=== PATIENT | female | born 1970 | race Caucasian/White ===

== ENCOUNTER 2017-10-19 14:57 | Outpatient (POV) | payer BC, SELFPAY | END 2017-10-19 17:20 | PROVIDERS: Visit Provider Podiatrist | DX: M76.822 Posterior tibial tendinitis, left leg (principal); M76.821 Posterior tibial tendinitis, right leg; M21.42 Flat foot [pes planus] (acquired), left foot; M21.41 Flat foot [pes planus] (acquired), right foot; L84 Corns and callosities; E11.621 Type 2 diabetes mellitus with foot ulcer; L97.411 Non-pressure chronic ulcer of right heel and midfoot limited to breakdown of skin | CPT/HCPCS: 99204; 11042; 11056; G0127 ==

== ENCOUNTER 2017-11-02 15:20 | Outpatient (POV) | payer BC, SELFPAY | END 2017-11-02 15:59 | disposition home or self-care (01) | PROVIDERS: Visit Provider Podiatrist | DX: E11.621 Type 2 diabetes mellitus with foot ulcer (principal); L97.411 Non-pressure chronic ulcer of right heel and midfoot limited to breakdown of skin; M76.822 Posterior tibial tendinitis, left leg; M76.821 Posterior tibial tendinitis, right leg; M20.42 Other hammer toe(s) (acquired), left foot; M20.41 Other hammer toe(s) (acquired), right foot | CPT/HCPCS: 99213; 11042 ==

== ENCOUNTER → 2017-11-03 | Outpatient (CLI) | payer BC, SELFPAY | PROVIDERS: Family Provider Internal Medicine; Visit Provider Internal Medicine | DX: G47.39 Other sleep apnea (principal); G47.30 Sleep apnea, unspecified; G47.10 Hypersomnia, unspecified; R06.83 Snoring; I10 Essential (primary) hypertension | CPT/HCPCS: 95806 ==

== ENCOUNTER 2017-11-12 17:00 | Outpatient (RCR) | payer BC, SELFPAY | END 2017-11-12 23:59 | LOC: PT 17:00 | PROVIDERS: PCP Internal Medicine; Visit Provider Internal Medicine | DX: L02.611 Cutaneous abscess of right foot (principal) | CPT/HCPCS: 97163; 97597; 97760 ==

== ENCOUNTER 2017-11-18 17:00 | Outpatient (RCR) | payer BC, SELFPAY | END 2017-11-18 23:59 | LOC: PT 17:00 | PROVIDERS: Family Provider Internal Medicine; PCP Internal Medicine; Visit Provider Internal Medicine | DX: L02.611 Cutaneous abscess of right foot (principal) | CPT/HCPCS: 97597 ==

== ENCOUNTER → 2017-11-27 10:37 | Outpatient (POV) | payer BC, SELFPAY | PROVIDERS: Visit Provider Podiatrist | DX: Z00.00 Encounter for general adult medical examination without abnormal findings (principal) ==

== ENCOUNTER → 2017-11-30 15:19 | Outpatient (CLI) | payer BC, SELFPAY ==
--- NOTE | 2017-11-30 15:30 | XR_ITS ---
XR chest 2V Ordering Physician: Diego Lynch Patient Age: 47 years: Female HISTORY: ITS.REASON: PNEUMONIAcough. Congestion. TECHNIQUE: PA and lateral chest. COMPARISON : November 21, 2016 2 view chest. But also portable chest from -. FINDINGS Mild prominence of the right suprahilar region more so than on November 2016 CXR. Somewhat similar appearance however on October 2016. I would question some minimal ill-defined infiltrate at the right suprahilar region extending anteriorly & possibly contributing to this generous right nata. Follow-up CXR 4 weeks suggested to exclude any underlying pathology.Low threshold for CT is symptoms persist or patient smoker More peripherally I see no focal pneumonia or consolidation. Question very subtle interstitial coarsening on this study but this may be merely be due to different new or technique with digital equipment. No CHF. No pleural effusion. Heart upper normal in size. Memory calcified aorta. Stimulator device at the lower T-spine posteriorly. IMPRESSION: --------- 1. Slight Additional fullness and density at the right suprahilar region on today's study.\ May reflect patchy infiltrate right suprahilar region, accentuating right superior right hilum, However would suggest follow-up PA &Lateral CXR 4 weeks to further evaluate. Low threshold for CT if symptoms persist progress or significant smoking history. 2. Very Subtle additional interstitial coarsening and prominence today, suspect merely reflect digital technique, but would benefit from follow-up CXR as well No focal pneumonia
== END ==
PROVIDERS: PCP Internal Medicine; Visit Provider Internal Medicine
DX: J18.9 Pneumonia, unspecified organism (principal)
CPT/HCPCS: 71046

== ENCOUNTER → 2017-12-28 17:14 | Outpatient (CLI) | payer BC, SELFPAY ==
--- NOTE | 2017-12-28 | XR_ITS ---
XR ankle LT min 3V HISTORY: Charcot foot, ankle pain ORDERING PHYSICIAN: Dione Castro DPM PATIENT AGE: 47 years COMPARISON: None FINDINGS: No fracture or dislocation. No lytic or blastic change. There is normal mineralization.. The joint spaces are well-preserved. No significant degenerative/arthritic changes. No erosive changes evident. IMPRESSION: Negative left ankle, no acute finding
--- NOTE | 2017-12-28 | XR_ITS ---
XR foot LT min 3V * HISTORY: Charcot foot, severe posterior tibial tendon dysfunction ORDERING PHYSICIAN: Dione Castro DPM PATIENT AGE: 47 years COMPARISON: None FINDINGS: There is severe pes planus with reversal of Mearys angle. There is mild lateral angulation of the distal phalanx of the great toe and flexion deformity involves the DIP of the second through fifth toes. No fracture or dislocation. No lytic or blastic change. IMPRESSION: 1. Severe pes planus 2. Hammertoe deformity
--- NOTE | 2017-12-28 | XR_ITS ---
XR foot RT min 3V HISTORY: Charcot foot, severe posterior tibial tendon dysfunction ORDERING PHYSICIAN: Dione Castro DPM PATIENT AGE: 47 years COMPARISON: None FINDINGS: There is severe pes planus with reversal of Mearys angle. Osteoarthritic changes are present involving the tarsal bones with hypertrophic changes at the talonavicular joint and navicular cuneiform joint. Mild osteoarthritic changes are present first metatarsophalangeal joint. There is mild lateral angulation of the distal phalanx of the great toe and flexion deformity involves the DIP of the second through fifth toes. No fracture or dislocation. No lytic or blastic change. IMPRESSION: 1. Severe pes planus 2. Osteoarthritis of the foot. 3. Hammertoe deformity
--- NOTE | 2017-12-28 | XR_ITS ---
XR ankle RT min 3V HISTORY: Pain, Charcot foot ITS.REASON: CHARCOT FOOT, SEVERE PTTD ORDERING PHYSICIAN: Dione Castro DPM PATIENT AGE: 47 years COMPARISON: None FINDINGS: No fracture or dislocation. No lytic or blastic change. There is normal mineralization.. The joint spaces are well-preserved. No significant degenerative/arthritic changes. No erosive changes evident. IMPRESSION: Negative ankle, no acute finding
== END ==
PROVIDERS: Visit Provider Podiatrist
DX: E11.610 Type 2 diabetes mellitus with diabetic neuropathic arthropathy (principal); I73.9 Peripheral vascular disease, unspecified
CPT/HCPCS: 73610; 73630

== ENCOUNTER → 2018-01-04 09:55 | Outpatient (CLI) | payer BC, SELFPAY ==
--- NOTE | 2018-01-04 | XR_ITS ---
XR foot LT min 3V Ordering Physician: Dione Castro DPM Patient Age: 47 years: Female HISTORY: ITS.REASON: charcot on lt with fx bones TECHNIQUE: 3 views left foot weightbearing COMPARISON :To 1218 left foot FINDINGS The posterior plaster splint at the foot and ankle has been placed since prior study 12/28/2017 . The severe pes planus seen on prior study appears adequately improved on today's lateral weightbearing view with splint in place. The splint material obscures osseous detail at the metatarsals appear intact. Tarsals satisfactory. The downward tilt of talus seen on the 12/28/2017 study is less pronounced. It seems articulates in a more satisfactory fashion with the proximal navicular on today's lateral view versus at recent to December 28, 2017 lateral foot image. Moderate plantar calcaneal spur again noted. Again note the flexion/hammertoe deformities at the toes. IMPRESSION: Plaster splint in place on the posterior ankle and plantar foot The previous noted pes planus appears improved on today's weightbearing image. Less pronounced on today's study
--- NOTE | 2018-01-04 | XR_ITS ---
XR foot RT min 3V Ordering Physician: Dione Castro DPM Patient Age: 47 years: Female HISTORY: ITS.REASON: CHARCOT on rt footright foot pain TECHNIQUE: 3 view right foot weightbearing COMPARISON :12/28/2017 right foot FINDINGS When compared to the recent right foot study of 12/28/2017 the severe pes planus is less pronounced. The severe pes planus with rather rocker bottom foot the recent study has somehow improvement on today's lateral weightbearing film. There is mild osteoarthritic changes at the first and the AP joint. Slight lateral angulation of the distal phalanx of the great toe. Flexion deformity at the toes most evident the DIP joints to the second, third, fourth and fifth.Toes. This feature appears similar. Arthritic changes are seen at the tarsal metatarsal joints and between the tarsals. Plantar calcaneal spur 10 mm length noted IMPRESSION: There is less pronounced pes planus on today's study versus recent 10/27/2018 of staging right foot Other observations unchanged
== END ==
PROVIDERS: PCP Internal Medicine; Visit Provider Podiatrist
DX: E11.610 Type 2 diabetes mellitus with diabetic neuropathic arthropathy (principal)
CPT/HCPCS: 73630

== ENCOUNTER → 2018-01-11 09:29 | Outpatient (CLI) | payer BC, SELFPAY ==
--- NOTE | 2018-01-11 | XR_ITS ---
XR ankle LT min 3V HISTORY: Pain ITS.REASON: CHARCOT ORDERING PHYSICIAN: Dione Castro DPM PATIENT AGE: 47 years COMPARISON: 12/28/2017 FINDINGS: No fracture or dislocation. No lytic or blastic change. There is normal mineralization.. The joint spaces are well-preserved. No significant degenerative/arthritic changes. No erosive changes evident. IMPRESSION: Negative ankle, no acute finding , no significant change
--- NOTE | 2018-01-11 | XR_ITS ---
XR foot LT min 3V HISTORY: Charcot foot ITS.REASON: CHARCOT ORDERING PHYSICIAN: Dione Castro DPM PATIENT AGE: 47 years COMPARISON: 01/04/2018 FINDINGS: The splint has been removed. Hammertoe deformity involves the second through fifth toes. There is lateral angulation of the distal phalanx of the first toe and there is pes planus. Small calcaneal spur is noted. No obvious bony erosive process evident. No fracture or dislocation. IMPRESSION: Flexion deformity of the toes with lateral angulation of the distal phalanx of the first digit and pes planus
== END ==
PROVIDERS: Visit Provider Podiatrist
DX: M14.672 Charcot's joint, left ankle and foot (principal)
CPT/HCPCS: 73610; 73630

== ENCOUNTER → 2018-01-25 07:53 | Outpatient (CLI) | payer BC, SELFPAY ==
--- NOTE | 2018-01-25 07:56 | CT_ITS ---
CT foot LT wo con Ordering Physician: Dione Castro DPM Patient Age: 47 years: Female HISTORY: ITS.REASON: Evaluate for Charcot changes; surgical planning TECHNIQUE: Helical CT scanning of the foot with sagittal coronal and oblique axial images performed on CT workstation. Also 3-D volume rendering image set performed. The fragmentation and irregularities most evident at the lateral aspect of the distal calcaneus COMPARISON :Previous plain films of left foot 01/11/2018 FINDINGS .. Midfoot fractures with prominent associated prominent edema, swelling surrounding fluid most evident at mid foot.: . Generous size fracture along with multiple small areas of fragmentation are seen throughout the medial aspect of the distal most calcaneus. This can be seen on the 3-D reconstruction images as well.Q. There is a fairly large fragment overlying this area measuring over 2.1 cm length times nearly 1 cm transverse. Prominent soft tissue swelling about this region. Diffuse numerous small tiny fragments along the distal margin of calcaneus were articulates with the inferior margin distal talus. Neuropathic type fragmentation pattern There is also fracture with what appears be generous size fracture fragment off the lateral margin of cuboid. This appears acute with very sharp margin. Numerous Other small areas of fragmented bone seen are seen more superiorly at the margin of cuboid and its junction with the distal margin of calcaneus. Extensive fluid and edema are seen along the inferior aspect of calcaneus in particular evident injury to the lateral calcaneus and cuboid but also seen at the lateral distal calcaneus. Also overlies the dorsal medial aspect of the exiting medial talar articulation. Some of this fluid appears relatively higher. I can follow the posterior tibial tendon and it appears grossly intact. Peroneus longus tendon I can be followed distally. The peroneal brevis sinuses less certain Appear to be old corner fracture off the plantar corner of the first metatarsal base, best seen on sagittal image 11, also evident on axial views. This fragment appears corticated and old.. Other metatarsals appear intact and the metatarsal, tarsal articulations are fairly well maintained with less changes here. MTP joints appear intact.Prominent hammertoe, flexion toe deformity at toes.. note: This study was dictated with a voice-recognition system. There may be typographical error is related to such. If they are significant please notify us for corrections =IMPRESSION. = 1. Multiple midfoot fractures.. Findings compatible with neuropathic joint/Charcot s foot Prominent associated fluid and likely some hemorrhage surrounding these fracture regions, contributing to these generous fluid collections about the midfoot fractures and the prominent edema throughout the foot extending up up the leg. 2 Most notable findings at mid foot:: Generous fracture fragment with prominent fragmentation off the superior lateral aspect distal calcaneus. Extensive fragmentation here as well as continues along the entire distal superior margin of calcaneus included along its articulation with distal inferior talus. Most recent fracture appears to be at the medial margin of the cuboid. Sharp, more fresh appearing margins at this recent appearing fracture. Generous size fracture fragment with numerous smaller bone fragments about this entire region. Old fracture corner fragment likely at the plantar base of first metatarsal Other observations in text
== END ==
PROVIDERS: Family Provider Internal Medicine; PCP Internal Medicine; Visit Provider Podiatrist
DX: E11.610 Type 2 diabetes mellitus with diabetic neuropathic arthropathy (principal)
CPT/HCPCS: 73700

== ENCOUNTER → 2018-02-09 16:04 | Outpatient (REF) | payer BC, SELFPAY | LOC: LAB 16:04 | PROVIDERS: Visit Provider Podiatrist | DX: B35.1 Tinea unguium (principal) | CPT/HCPCS: 87102; 87206; 87220 ==

== ENCOUNTER → 2018-02-26 12:59 | Outpatient (POV) | payer BC, SELFPAY | PROVIDERS: Family Provider Internal Medicine; PCP Internal Medicine; Visit Provider Podiatrist | DX: Z00.00 Encounter for general adult medical examination without abnormal findings (principal) ==

== ENCOUNTER → 2018-03-01 14:30 | Outpatient (CLI) | payer BC, SELFPAY ==
--- NOTE | 2018-03-01 14:30 | XR_ITS ---
XR foot wt bearing LT 3V HISTORY: Charcot foot, pain ORDERING PHYSICIAN: Dione Castro DPM PATIENT AGE: 47 years COMPARISON: 01/11/2018 radiograph and 01/25/2018 CT scan FINDINGS: Recent CT scan demonstrated multiple areas of fragmentation involving the mid foot. Most of these are below limits of resolution on the plain film. There is pes planus. There is mild lateral angulation of the distal phalanx of the great toe and there is flexion deformity of the second, third, and fourth toes. There are mild osteoarthritic changes of the midfoot there is a small calcaneal spur. Overall no significant change from the radiograph 01/11/2018. IMPRESSION: Pes planus with overall no significant change from 01/11/2018 as described above. Multiple areas of fragmentation seen on the CT scan are below limits of resolution on plain film
== END ==
PROVIDERS: Visit Provider Podiatrist
DX: E11.610 Type 2 diabetes mellitus with diabetic neuropathic arthropathy (principal); M79.672 Pain in left foot; I73.9 Peripheral vascular disease, unspecified; B35.1 Tinea unguium; E66.01 Morbid (severe) obesity due to excess calories
CPT/HCPCS: 73630

== ENCOUNTER → 2018-04-09 14:07 | Outpatient (CLI) | payer BC, SELFPAY ==
--- NOTE | 2018-04-09 14:09 | XR_ITS ---
XR foot wt bearing RT 3V COMPARISON: Right foot 01/04/2018 HISTORY: Right foot pain TECHNIQUE: AP lateral and oblique weightbearing views FINDINGS: The tarsal bones metatarsals and phalanges all appear intact. Again noted is moderate pes planus. There are calcaneal spur both at the insertion of Achilles tendon and plantar tendon as noted previously. Again noted is mild lateral angulation of the distal phalanx of the great toe. The soft tissues are grossly normal. IMPRESSION: Pes planus and calcaneal spurs is noted
--- NOTE | 2018-04-09 14:09 | XR_ITS ---
XR ankle wt bearing RT min 3V HISTORY: ITS.REASON: Pain ORDERING PHYSICIAN: Dione Castro DPM PATIENT AGE: 47 years Comparison: None FINDINGS: No fracture or dislocation. No lytic or blastic change. There is normal mineralization.. The joint spaces are well-preserved. No significant degenerative/arthritic changes. No erosive changes evident. IMPRESSION: Negative ankle, no acute finding
--- NOTE | 2018-04-09 14:09 | XR_ITS ---
XR ankle wt bearing LT min 3V COMPARISON: Left ankle 01/11/2018 HISTORY: Left ankle pain TECHNIQUE: AP lateral and oblique weightbearing views FINDINGS: There is mild diffuse prominence of the soft tissues of the lower leg and ankle probably a reflection of the patient's size the medial and lateral malleolus appear intact and the ankle mortise is normal. IMPRESSION: Negative left ankle
--- NOTE | 2018-04-09 14:09 | XR_ITS ---
XR foot wt bearing LT 3V HISTORY: ITS.REASON: Pain ORDERING PHYSICIAN: Dione Castro DPM PATIENT AGE: 47 years COMPARISON: 03/01/2018 FINDINGS: There remains severe pes planus with osteoarthritic change of the midfoot. There is some increased lucency along the anterior distal aspect of the talus. The pes planus is worse on today's exam. There is some bony fragmentation at the plantar surface of the calcaneal cuboid junction. Hammertoe deformity involves the first toe with lateral angulation of the distal phalanx of the first toe. IMPRESSION: Increasing pes planus with lucency of the anterior distal aspect of the talus. This is of questionable clinical significance. Repeat CT scan may be of further value. Osteomyelitis is a consideration. Fragmentation also noted at the calcaneal cuboid junction as seen on the CT scan of 01/25/2018.
--- NOTE | 2018-04-09 14:26 | XR_ITS ---
XR chest 2V Ordering Physician: Dione Castro DPM Patient Age: 47 years: Female HISTORY: ITS.REASON: PREOP Nonsmoker TECHNIQUE: 2 view chest COMPARISON :2 view chest 11/21/2016. FINDINGS Stable chest. Nothing definitely acute. Today's technique slightly accentuates markings bilaterally but there is been no significant interval change overall . Small stable calcified granulomata periphery left midlung 6 mm size. Small calcified hilar node bilateral... These reflect old granulomatous disease heart nata and mediastinal structures unremarkable. The spinal similar device is seen at the lower T-spine. IMPRESSION: Stable chest. Nothing definitely acute
== END ==
PROVIDERS: PCP Internal Medicine; Visit Provider Podiatrist
DX: Z01.810 Encounter for preprocedural cardiovascular examination (principal); E11.610 Type 2 diabetes mellitus with diabetic neuropathic arthropathy; I25.10 Atherosclerotic heart disease of native coronary artery without angina pectoris; I10 Essential (primary) hypertension
CPT/HCPCS: 71046; 73610; 73630

== ENCOUNTER 2018-04-14 05:59 | Observation (INO) ==
--- NOTE | 2018-04-14 06:55 | Progress Note ---
[facility] Anesthesia Checklist - Structural Data Admitted From: Home Planned Operative Procedure/s: achilles lengthening Consent for Planned Operative Procedure(s) Verified: Yes Verified Documents: Surgical Consent - Airway Assessment C-Spine Mobility Assessed: Yes TMJ Mobility Assessed: Yes Dentition: Good Dentition - Neurological Assessment Level of Consciousness: Awake, Alert, Appropriate - Anesthesia Plan Anesthesia Risk discussed: Yes Anesthesia Plan: Verified ASA Class: III Anesthesia Type: General [facility] Anesthesia HX I have reviewed the patient's past medical history: Yes 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: Reports:: Diabetes Mellitus Type 2 (neuropathy), Hypertension, Myocardial Infarction Denies:: Asthma, Cancer, Chronic Obstructive Pulmonary Disease (COPD), Hyperlipidemia, Internal Pacemaker, MRSA, Seizures Other 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: Reports: Arthritis, Fibromyalgia. Denies: Blood Transfusion Reaction Laterality Cases: Bilateral: Arthroscopy Knee, Arthroscopy Shoulder Other Surgeries: Yes: Hysterectomy-Total (2002), Other. No: Pacemaker Amputation: No Fractures: No *Family Hx:: Cancer, Hypertension
--- NOTE | 2018-04-14 15:51 | Progress Note ---
[facility] Anesthesia Record Part I Intake, IV Amount: 3,300 Estimated blood loss (mL): 30 Urine output (mL): 750 Blood Products used (#): none Blood Pressure: 145/87 SaO2: 94 Pulse Rate: 103 Respiratory Rate: 14 Temperature: 97.8 F Patient is:: Awake, Stable Stable to PACU at:: 15:38
--- NOTE | 2018-04-14 15:51 | Progress Note ---
[facility] Anesthesia Record Part II Discharge Time: 16:08 Destination: Medical Surgical Department PACU nurse assessment reviewed?: Yes Patient Condition:: Good Anesthesia Complications:: None
--- NOTE | 2018-04-14 16:53 | History & Physical Report ---
*Admission Date: 04/14/18 *Chief complaint: R Diabetic Charcot Neuroarthropathy *History of present illness: Ms. Colon is a 47 y/o DM female who presents for right foot Charcot reconstruction. She was granted medical and cardiac clearance by Dr. Lynch and Dr. Manzano. She is to be admitted for 23 observation then discharged to [facility] History 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: Reports:: Diabetes Mellitus Type 2 (neuropathy), Hypertension, Myocardial Infarction Denies:: Asthma, Cancer, Chronic Obstructive Pulmonary Disease (COPD), Hyperlipidemia, Internal Pacemaker, MRSA, Seizures Other 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: Reports: Arthritis, Fibromyalgia. Denies: Blood Transfusion Reaction Laterality Cases: Bilateral: Arthroscopy Knee, Arthroscopy Shoulder Other Surgeries: Yes: Hysterectomy-Total (2002), Other. No: Pacemaker Amputation: No Fractures: No - *Social History Educational Level: Attended College Smoking Status: Former smoker # Packs/Day (cigarettes): 0 #Yrs smoked (if former smoker): 25 Alcohol Intake: never Alcohol Intake Frequency:: other Occupational Status: unemployed Housing: house Household Members: family - Psychiatric History Expresses thoughts of harming self/others: None Suicide Plan Description: No Plan *Family Hx:: Cancer, Hypertension Review of Systems - Review of Systems Review of systems:: pertinent systems reviewed and negative unless documented below - Constitutional Denies anorexia, Denies excessive sweating - Eyes Denies blind spots, Denies blurry vision - ENT Denies abnormal hearing - *Cardiovascular Denies chest pain, Denies shortness of breath - *Respiratory Denies cough, Denies shortness of breath - *Gastrointestinal Denies abdominal pain - *Genitourinary Denies abnormal periods - *Musculoskeletal Reports joint pain, Reports back pain, Reports joint swelling, Reports numbness , Reports tingling - *Neurologic Reports tingling/numbness/burning sensations, Reports sensory deficit - Psychiatric Reports anxiety Meds Home Medications Medication Instructions Recorded Confirmed Type blood sugar diagnostic strips See Dose Instructions .ROUTE 12/28/17 04/14/18 History .MEDSUPPLY 30 Days #100 each carvedilol 6.25 mg tablet 6.25 mg PO DAILY 30 Days #60 12/28/17 04/14/18 History duloxetine 60 mg capsule,delayed 60 mg PO DAILY 30 Days #60 12/28/17 04/14/18 History release glipizide 5 mg tablet 5 mg PO DAILY 30 Days #120 12/28/17 04/14/18 History hydrocodone 10 mg-acetaminophen 10 mg PO DAILY 30 Days #120 12/28/17 04/14/18 History 325 mg tablet insulin glargine (U-100) 100 70 unit SUB-Q DAILY 22 Days #15 12/28/17 04/14/18 History unit/mL (3 mL) subcutaneous pen isosorbide mononitrate ER 60 mg 60 mg PO DAILY 30 Days #30 12/28/17 04/14/18 History tablet,extended release 24 hr liraglutide 0.6 mg/0.1 mL (18 mg/3 1 applicatio SUB-Q DAILY 30 Days #9 12/28/17 04/14/18 History mL) subcutaneous pen injector pen needle, diabetic 32 gauge x See Dose Instructions .ROUTE 12/28/17 04/14/18 History 1/4" .MEDSUPPLY 25 Days #100 each pregabalin 225 mg capsule 225 mg PO DAILY 30 Days #60 12/28/17 04/14/18 History ramipril 10 mg capsule 10 mg PO DAILY 30 Days #30 12/28/17 04/14/18 History trazodone 100 mg tablet 100 g PO DAILY 30 Days #30 12/28/17 04/14/18 History atorvastatin 40 mg tablet 40 mg PO DAILY 30 Days #30 03/01/18 04/14/18 History lorazepam 1 mg tablet 1 mg PO DAILY 10 Days #30 03/01/18 04/14/18 History tramadol 50 mg tablet 50 mg PO DAILY 30 Days #120 03/01/18 04/14/18 History RX: cephALEXin [Cephalexin 500mg 500 mg PO Q12H 04/14/18 04/14/18 History Tab] Allergies Allergy/AdvReac Type Severity Reaction Status Date / Time codeine [CODEINE] Allergy Mild STOMACH Verified 04/14/18 06:20 CRAMPS morphine [MORPHINE] Allergy Mild STOMACH Verified 04/14/18 06:20 CRAMPS oxycodone [From Percocet] Allergy Mild STOMACH Verified 04/14/18 06:20 CRAMPS amoxicillin [AMOXICILLIN] Allergy Unknown Verified 04/14/18 06:20 Exam Vital signs and Labs for Last 24 Hours: Temp Pulse Resp BP Pulse Ox 97.8 F 103 H 14 145/87 98 04/14/18 15:51 05/30/18 15:51 04/14/18 15:51 04/14/18 15:51 04/14/18 06:31 Laboratory Results - last 24 hr 04/14/18 06:25: POC Glucose 165 H 04/14/18 07:45: Urine Color Yellow, Urine Appearance Clear, Urine pH 5.5, Ur Specific [place] 1.015, Urine Protein Negative, Urine Glucose (UA) Negative, Urine Ketones Negative, Urine Blood Negative, Urine Nitrate Negative, Urine Bilirubin Negative, Urine Urobilinogen 0.2, Ur Leukocyte Esterase Negative, Urine RBC None, Urine WBC None, Ur Squamous Epith Cells Occasional, Urine Bacteria Trace I & O for Last 24 hours: Intake & Output 04/12/18 04/13/18 04/14/18 04/15/18 11:59 11:59 11:59 11:59 Intake Total 3300 / 3300 Balance 3300 / 3300 Weight 298 lb Microbiology Reports for the Last 24 Hours: Microbiology 04/14/18 Unknown Foot,Right Gram Stain - Final - *Routine HEENT Exam Head: Present: normocephalic Eye: Present: PERRL ENT: Present: mucous membranes moist - *Routine Neck Exam Present: supple. Absent: JVD - *Routine Respiratory Exam Present: CTA bilaterally. Absent: respiratory distress - *Routine Cardiovascular Exam Present: RRR. Absent: JVD - *Routine Abdominal Exam Present: soft - *Routine Rectal Exam Patient deferred: visual exam - *Routine Exam Patient deferred: external exam - *Routine Extremities Exam Present: edema, pulses intact, normal capillary refill. Absent: amputation - *Routine Skin Exam Present: intact, erythema (groin, thighs, arms). Absent: wounds - *Routine Neurological Exam Present: alert. Absent: altered mental status - Detailed Lower Extremity Exam Comments: Right lower extremity external fixator intact. Dressing clean dry and intact over ex fix. CFT wnl. Decreased sensation secondary to regional nerve block. No calf or thigh pain noted b/l. Results - Labs Labs: Abnormal lab results 04/14/18 Range/Units 06:25 POC Glucose 165 H (70-110) All other labs normal. - Diagnostic results Ankle/Foot x-ray: image reviewed Assessment and Plan (1) Charcot's joint of right foot Current visit: Yes Status: Acute Category: Medical Code(s): M14.671 - Charcot's joint, right ankle and foot (2) Type 2 diabetes mellitus with Charcot's joint of right foot Current visit: Yes Status: Acute Category: Medical Code(s): E11.610 - Type 2 diabetes mellitus with diabetic neuropathic arthropathy (3) Obesity, Class III, BMI 40-49.9 (morbid obesity) Current visit: Yes Status: Acute Category: Medical Code(s): E66.01 - Morbid (severe) obesity due to excess calories (4) Vitamin D deficiency Current visit: Yes Status: Acute Category: Medical Code(s): E55.9 - Vitamin D deficiency, unspecified - Assessment and plan all Dx Assessment and Plan for all problems:: Patient will be admitted for 23 hour observation for pain control and medical mgmt Discussed with Dr. Lynch, will consult Dr. Odonnell Patient is to maintain dressing clean dry and intact. Ice behind the right knee and elevate on two pillows. Non weight bearing to the right lower extremity with DME assistance (walker, wheelchair). Rx for Gray 10/325 1-2 tabs (per Dr. Zana Sims-pain mgmt). Obtain post op films, right calc, ankle and foot, 3 views. Consult: Dr. Odonnell for medical mgmt of insulin, IV fluids and blood pressure. PT in the am for gait training and transitions. Plan to d/c to [facility] tomorrow after PT session.
--- NOTE | 2018-04-14 17:08 | Operative Note ---
Date of procedure: 04/14/18 Pre-op Diagnosis:: 1. Right Diabetic Charcot Neuroarthropathy 2. Right Gastroc-soleus equinus 3. Right foot synovitis 4. Right foot osteoarthritis Post-op Diagnosis:: 1. Right Diabetic Charcot Neuroarthropathy 2. Right Gastroc-soleus equinus 3. Right foot synovitis 4. Right foot osteoarthritis Procedure performed:: 1. Right tendon achilles lengthening 2. Right foot synovectomy 3. Right Charcot reconstruction 4. Right triple arthodesis 5. Right medial column arthrodesis 6. Right application of external fixation device Surgeon:: Dione Castro DPM AIR SAW OPERATOR:: Other (Larry Walker) Anesthesia: GETA, regional Estimated blood loss (mL): 50 Clinical Note:: B/L Charcot Neuroarthropathy: I had a long discussion with the patient about the etiology and treatment of Charcot foot. I explained how her diabetes and peripheral neuropathy have contributed to this. We also had a long discussion about her hemoglobin A1c and sugar control. Her previous A1c was 8.0. Patient does not currently smoke. The patient and I had a long discussion about her treatment course. We discussed the conservative versus surgical treatment options. She has been NWB for both the right and left LE. She has the [place] boot for LLE. The patient admits that she cannot be compliant with a NWB treatment plan and that she would put weight on it. We did discuss surgical intervention with the application of an external fixator. My recommendation would be strict nonweightbearing x 2-4 weeks post op and possible PWB with ex fix once sutures removed. She has agreed to be nonweightbearing for several weeks and with the external fixator. She understands that the nonweightbearing period would be shorter with the ex fix because she can weight-bear in the frame eventually being radiographic findings. I also explained that during the nonweightbearing. She needs to continue the [place] boot on the left because there will be an increased risk of Charcot breakdown because there will be an increased stress load on the left lower extremity. After a long discussion with the patient in regards to the conservative versus surgical treatment for the Charcot deformity, the patient has elected to proceed with surgery because they have have admitted limited compliance with conservative treatment and continue to have pain and worsening symptoms affecting daily activities. The patient has been instructed on the planned procedure, all risk versus benefits of the procedure discussed. These include but are not limited to: bleeding, infection, nerve and blood vessel damage, need for further surgery, delay in healing of soft tissue or bone, failure of bones to heal, non-union, mal-union, failure of the implant, broken pins, over lengthening of the tendon, prolonged pain and recovery, prolonged swelling, CPRS/RSD, DVT, anesthetic complications, loss of limb and even . No guarantees were given. All questions fully answered. The patient verbalized understanding and agreed to proceed with surgery. Written consent was obtained. Cardiac clearance in chart per Dr. Manzano from 02/21/18. Necessary labs and pre- op testing ordered: CBC, CMP, CXR, vitamin D, Ha1c, ESR, CRP. Patient was granted medical clearance per Dr. Lynch. Plan to keep patient for 23 hours observation for pain control and monitoring. Discussed with Dr. Lynch, he recommended Dr. Odonnell consult. Immediate post op pain mgmt will be done by me per Dr. Jovani Sims at [facility]. Plan for surgery: right foot application of external fixation device, tendo Achilles lengthening, Charcot reconstruction (arthrodesis, possible midfoot osteotomy), repair of tendons and other associated Charcot procedures as needed Operative findings:: Contracted Achilles tendon. Severe scarring and fibrosis of the midfoot. Synovitis noted at the NC, TN and ST joints. Midfoot Charcot collapse. Severe degenerative changes of the midfoot. Soft crumbly bone, likely secondary to vitamin D deficiency and Charcot. Operative note:: On this date and time patient was deemed an appropriate surgical candidate. Anesthesia performed a pre-op regional popliteal nerve block. With informed consent signed, the patient was taken to the operating theater. The patient was positioned supine. General anesthesia was induced. Tourniquet was applied to the right thigh at 250 mmHg. Right Tendon Achilles Lengthening: Attention was directed to the posterior leg. Three stab incisions where made overlying the Achilles. Utilizing the three holes, percutaneous davida-section of the Achilles was performed with the foot maximally dorsiflexed. Release of the Achilles contracture was noted. The incisions were flushed with copious amounts of sterile saline and the wound was closed with Nylon. Right Foot Charcot reconstruction: The right lower extremity was prepped and draped in a normal sterile fashion. Intraoperative fluoroscopy was utilized to take x-rays of both the foot and ankle. The Lisfranc was noted to be consolidated. There were degenerative changes noted to the midfoot. Severe arch collapse. Joints were marked out under intraoperative fluoroscopy. The right limb was exsanguinated and the tourniquet was inflated. Attention was directed to the medial foot where a dorsal linear incision was made starting from the first metatarsal cuneiform joint and extending proximal to the talonavicular joint. Dissection was carried through skin into subcutaneous tissue with care taken to maintain surgical hemostasis and safely retract neurovascular structures. There was fibrosis and scarring noted. The medial marginal vein was safely retracted throughout the procedure. The tibialis anterior tendon was identified and retracted. Dissection was then carried down to the level of the bone. Right foot Synovectomy: It should be noted that during the dissection and opening up of the NC, TN and ST joints there was brown fluid noted from the joints. It appeared to look like dark synovitis. A wound culture was obtained. Right Triple and Medial Column Arthrodesis: The 1st metararsal cuneiform, navicular cunieform, talonavicular joints were all visualized on the medial foot. Once the soft tissue was freed from each joint, distraction was used. There was cartilage erosion and dorsal spurring noted. Utilizing an osteotome, stephy the cartilage was removed from the joints. The wound was flushed with copious amounts of normal sterile saline. 2.0mm drill bit was used to fentrasate the subchondral bone plate down to the level of healthy bleeding bone. Attention was directed to the lateral foot. A curvilinear incision was mapped out extending proximal and posterior to the fibula along the course of the peroneal tendons and dorsal extending over the fourth fifth met base cuboid junction. Dissection was carried through skin to subcutaneous tissue with care taken to maintain surgical hemostasis and safely retract neurovascular structures. Sural nerve was identified and retracted inferiorly throughout the procedure. Dissection was carried through deep fascia to the level of the bone. There was dorsal spurring and osteophytes noted along the anterior process of calcaneus to the CCJ. The talus had severe erosions. Arthritic degenerative changes noted throughout the CC, subtalar and TN joints. The peroneal sheath was full of synovitis, which was debrided. The STJ was distracted and an osteotome and curette was then used to resect the remaining cartilage down to the level of good healthy bleeding bone. Attention was directed to the CC joint where power instrumentation was used to resect the calcaneal cuboid joint. Curette and osteotome was then used to remove the remaining cartilage down to the level of good healthy bleeding bone. Once all joints have been prepped to the level good healthy bleeding bone the wound was flushed with copious amounts of normal sterile saline. Intraoperative fluoroscopy was utilized to check position. Temporary fixation was inserted to check reduction. Intraoperative fluoroscopy was utilized and reduction was deemed to be adequate. At this point temporary fixation was removed. A 2-0 drill bit was then used to further fenestrate the joints down to the level good healthy bleeding bone. Tensix DBM was then used to fill the voids, particularly at the level of the TN joint. The subtalar joint was reduced and a partially threaded cannulated 7.0 mm beam was inserted from posterior to anterior compressing the STJ. Calcaneal axial, lateral, ankle views were obtained and deemed to be appropriate in terms of reduction and fixation. Attention was then directed to the TNJ where the foot was reduced into a plantigrade position. A medial column fusion Charcot plate was applied and checked under intraoperative fluoroscopy. Once adequate position was obtained locking screws were inserted from the first metatarsal through the plate proximal medial into the talus. The quality of the patient's bone was very poor. There was significant fragmentation and crumbling noted to the bones. When the temporary fixation was placed into the plate it was easily removed by hand due to the quality of the bone. Because of the poor quality of bone it was decided to insert extra fixation. At this point attention was directed to the 1st metatarsal head which did have some erosion of the cartilage noted. A McGlamry elevator was passed underneath the first metatarsal head to free plantar adhesions. Increased range of motion was noted to the first MPJ. Next, the medial column and TMTJs were reduced and temporarily pinned. Reduction checked on intraoperative fluoroscopy. Next, a guidewire for the 7.0 mm [employer] fusion beam was inserted under intra-op fluoro. This was checked in all 3 planes. The K wire was in good position extending down the medullary canal of the first metatarsal into the cuneiform into the navicular and then the talus. It should be noted that there was not significant talar purchase. A 7.0 cannulated fusion beam was then inserted in standard technique over the guidewire. Compression was noted of the medial column. Good compression noted at the first metatarsal cuneiform and navicular cuneiform joints. Position of the medial beam was noted to be adequate. The wound was flushed with copious amounts of normal sterile saline. The calcaneal cuboid joint was then reduced and a 18 mm fuse force staple was then inserted. Adequate compression was noted. Intraoperative fluoroscopy was utilized to check the position and this staple was noted to extend into the CCJ. Lateral columm (3rd met-cuboid stabilization): Attention was directed to the lateral foot, where intra-op fluoroscopy was used to map out the 3rd metatarsal head on both the AP, MO and lateral views. Next, a 15' blade was used to make a small incision over the 3rd metatarsal phalangeal joint. Blunt dissection was utilitzed to dissect thru skin and subcutaneous tissue with care taken to maintain surgical hemostasis and safely retract neurovascular structures. Dissection was then carried bluntly with a hemostat to the bone. A McGlamry elevator was used to free plantar adhesions. Due to the severe LisFranc lateral fracture dislocation, some residual deformity noted in the transverse plan. It was unable to be reduced. A guide wire for a 5.0 mm [employer] fusion bolt was inserted under fluoro. Position was checked in all 3 planes. The K-wire was in good position, extending down the medullary canal into the cuboid. At this point, a cannulated drill was used. The guide wire was then removed and a 5.0mm solid core fusion bolt was inserted in standard technique. Upon insertion of the bolt the third metatarsal fracture. The head was fractured as the bolt was inserted, the metatarsal shaft cracked and the bolt exited plantarly. At this point the decision was made to insert a beam from posterior to anterior capturing the third metatarsal base. While keeping the bolt from the third metatarsal head into the base intact, a 7.0 mm cannulated beam was inserted from the calcaneus ending into the third metatarsal base. Once the lateral column was stabilized with the beam the fusion bolt was removed from the third metatarsal head. The fracture was intact not displaced. Preoperative fluoroscopy was utilized to check the position of the beam. The wound was flushed with copious amounts of saline. 2-0 Vicryl was used to repair deep tissue. At the point final position was checked under intra-op fluoro and deemed to be appropriate with stable fixation. There was stability noted across the Lisfranc region. Fixation was in place with reduction of sagittal plane deformity. All fixation was deemed to be in adequate alignment. Hardware did not extend into the ankle joint. The tourniquet was deflated at 120 minutes. Immediate hyperemic response was noted to the digits upon deflation of the tourniquet. The tourniquet was left deflated for over 30 minutes. The tourniquet was reinflated one more time during the case and left up for 120 minutes. Attention was directed to the medial column then lateral column where the incisions were closed. 2-0 Vicryl was used to reapproximate the TA tendon in an over and over fashion. Amniotic graft was wrapped around the tendon. 2-0 Vicryl was also used to reapproximate the deep fascia as well as the deep subcutaneous tissue in interrupted fashion. 3-0 Vicryl was then used to reapproximate subcutaneous tissue in an interrupted fashion. 3-0 Nylon was used to close the skin incisions in a horizontal mattress and simple suture fashion. Viaflow was inserted into the medial incision line. The wounds were cleansed. Xerofoam, dry sterile dressing was then applied to the proximal leg. Right foot application of External fixation device: A [employer] [facility] external fixation device was utilized. The frame had been prebuilt with a footplate, two full leg rings and a 5/8th ring. Leg holders were positioned and the leg placed in the frame. Attention was directed to the lateral calcaneus where an olive wire was positioned from the inferior lateral calcaneus and driven to the medial inferior calcaneus. The calcaneus felt soft in texture. Next a second olive wire was driven from the medial calcaneus into the lateral calcaneus. Attention was directed proximally to the proximal most ring where a wire was driven from the anterior face of the tibia lateral to medial and a second wire driven from medial to lateral. The wires were tensioned and some stability was noted to the frame. Next 2 more olive wires were used this time on the distal tibia from medial to lateral lateral to medial in an "X" pattern. The leg wires were tensioned to 125. Good stability of the frame was noted. Next an olive wire was positioned from the medial first metatarsal capturing the second metatarsal and exiting dorsal lateral on the midfoot. Similarly another olive wire was placed from the fifth metatarsal angle proximal medial capturing the fifth fourth metatarsal prior to exiting. The distal foot olive wires were then tensioned to 90. Adequate position of the foot within the frame was noted. The skin was not touching or rubbing against the frame in any plane. Intraoperative fluoroscopy was utilized to obtain x- rays which showed adequate position of foot within the frame. Wires were tightened. Xeroform applied around the pin sites and a dry sterile dressing was applied to the foot. The foot plate was attached. The patient was awoken from anesthesia and transferred to recovery with vital signs stable and neurovascular status intact. Due to the patients body habitus (morbid obesity), this case took 1.5-2 hours longer than usual. The case was more tedious due to the excessive subcutaneous fat layers and fibrotic scar tissue. The case was also complicated by the bone quality which was soft and crumbly, it was difficult to hold reduction with the fixation. Materials: [employer] (Charcot external fixator) [place] wires x 8 (tibia/calc/midfoot) 7.0mm fusion beam partially threaded 7.0mm fusion beam fully threaded [facility] Charcot medial column fusion plate + 5.0mm locking screws Fuse force staple x 1 Tensix DBM Actishield x 1 Viaflow x 1 Discharge/Plan: Patient will be admitted for 23 hour observation for pain control and medical mgmt Patient is to maintain dressing clean dry and intact. Ice behind the right knee and elevate on two pillows. Non weight bearing to the right lower extremity with DME assistance (walker, wheelchair). Pain: [place] 10/325 1-2 tablets q4h prn Obtain post op films, right calc, ankle and foot, 3 views. Consult: Dr. Odonnell for medical mgmt of insulin, IV fluids and blood pressure. PT in the am for gait training and transitions. Plan to d/c to [facility] tomorrow after PT session. Tourniquet time (min): 240 Condition: stable Disposition: observation Specimens:: Right foot wound culture Complications:: None
--- NOTE | 2018-04-14 20:59 | Consult Report ---
*Admission Date: 04/14/18 *Chief complaint: Internal medicine consult *History of present illness: Ms. Colon is a 47 y/o DM female who presents for right foot Charcot reconstruction. She was granted medical and cardiac clearance by Dr. Lynch and Dr. Manzano. She is to be admitted for 23 observation then discharged to [facility]. Above history noted from podiatry, asked to follow patient's blood pressure and sugar while in hospital. Patient seen on second floor after surgery. Awake, alert, oriented 3. Complains of pain in the ankle but otherwise feels well, no chest pain or shortness of air. [facility] History 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: Reports:: Diabetes Mellitus Type 2 (neuropathy), Hypertension, Myocardial Infarction Denies:: Asthma, Cancer, Chronic Obstructive Pulmonary Disease (COPD), Hyperlipidemia, Internal Pacemaker, MRSA, Seizures Other 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: Reports: Arthritis, Fibromyalgia. Denies: Blood Transfusion Reaction Laterality Cases: Bilateral: Arthroscopy Knee, Arthroscopy Shoulder Other Surgeries: Yes: Hysterectomy-Total (2002), Other. No: Pacemaker Amputation: No Fractures: No - *Social History Educational Level: Attended College Smoking Status: Former smoker # Packs/Day (cigarettes): 0 #Yrs smoked (if former smoker): 25 Alcohol Intake: never Alcohol Intake Frequency:: other Occupational Status: unemployed Housing: house Household Members: family - Psychiatric History Expresses thoughts of harming self/others: None Suicide Plan Description: No Plan *Family Hx:: Cancer, Hypertension Review of Systems - Review of Systems Review of systems:: unable to obtain, other, pertinent systems reviewed and negative unless documented below - *Neurologic Reports numbness, Reports tingling/numbness/burning sensations, Reports sensory deficit, Reports tingling, Denies abnormal hearing Meds Home Medications Medication Instructions Recorded Confirmed Type blood sugar diagnostic strips See Dose Instructions .ROUTE 12/28/17 04/14/18 History .MEDSUPPLY 30 Days #100 each carvedilol 6.25 mg tablet 6.25 mg PO DAILY 30 Days #60 12/28/17 04/14/18 History duloxetine 60 mg capsule,delayed 60 mg PO DAILY 30 Days #60 12/28/17 04/14/18 History release glipizide 5 mg tablet 5 mg PO DAILY 30 Days #120 12/28/17 04/14/18 History hydrocodone 10 mg-acetaminophen 10 mg PO DAILY 30 Days #120 12/28/17 04/14/18 History 325 mg tablet insulin glargine (U-100) 100 70 unit SUB-Q DAILY 22 Days #15 12/28/17 04/14/18 History unit/mL (3 mL) subcutaneous pen isosorbide mononitrate ER 60 mg 60 mg PO DAILY 30 Days #30 12/28/17 04/14/18 History tablet,extended release 24 hr liraglutide 0.6 mg/0.1 mL (18 mg/3 1 applicatio SUB-Q DAILY 30 Days #9 12/28/17 04/14/18 History mL) subcutaneous pen injector pen needle, diabetic 32 gauge x See Dose Instructions .ROUTE 12/28/17 04/14/18 History 1/4" .MEDSUPPLY 25 Days #100 each pregabalin 225 mg capsule 225 mg PO DAILY 30 Days #60 12/28/17 04/14/18 History ramipril 10 mg capsule 10 mg PO DAILY 30 Days #30 12/28/17 04/14/18 History trazodone 100 mg tablet 100 g PO DAILY 30 Days #30 12/28/17 04/14/18 History atorvastatin 40 mg tablet 40 mg PO DAILY 30 Days #30 03/01/18 04/14/18 History lorazepam 1 mg tablet 1 mg PO DAILY 10 Days #30 03/01/18 04/14/18 History tramadol 50 mg tablet 50 mg PO DAILY 30 Days #120 03/01/18 04/14/18 History cephALEXin [Cephalexin 500mg Tab] 500 mg PO Q12H 04/14/18 04/14/18 History Allergies Allergy/AdvReac Type Severity Reaction Status Date / Time codeine [CODEINE] Allergy Mild STOMACH Verified 04/14/18 06:20 CRAMPS morphine [MORPHINE] Allergy Mild STOMACH Verified 04/14/18 06:20 CRAMPS oxycodone [From Percocet] Allergy Mild STOMACH Verified 04/14/18 06:20 CRAMPS amoxicillin [AMOXICILLIN] Allergy Unknown Verified 04/14/18 06:20 Exam Vital signs and Labs for Last 24 Hours: Temp Pulse Resp BP Pulse Ox 98.9 F 110 H 18 158/75 94 L 04/14/18 17:41 04/14/18 18:55 04/14/18 18:55 04/14/18 18:55 04/14/18 19:57 Laboratory Results - last 24 hr 04/14/18 06:25: POC Glucose 165 H 04/14/18 07:45: Urine Color Yellow, Urine Appearance Clear, Urine pH 5.5, Ur Specific [place] 1.015, Urine Protein Negative, Urine Glucose (UA) Negative, Urine Ketones Negative, Urine Blood Negative, Urine Nitrate Negative, Urine Bilirubin Negative, Urine Urobilinogen 0.2, Ur Leukocyte Esterase Negative, Urine RBC None, Urine WBC None, Ur Squamous Epith Cells Occasional, Urine Bacteria Trace 04/14/18 20:37: POC Glucose 407 H* I & O for Last 24 hours: Intake & Output 04/12/18 04/13/18 04/14/18 04/15/18 11:59 11:59 11:59 11:59 Intake Total 3300 / 3300 Balance 3300 / 3300 Weight 298 lb 323 lb Microbiology Reports for the Last 24 Hours: Microbiology 04/14/18 Unknown Foot,Right Gram Stain - Final Narrative: Patient is awake, pleasant. Alert. No cranial nerve deficits. Lungs are clear in the anterior sierra, heart rate regular. Abdomen is soft. Right foot in dressing, protective bandage. Left foot in sequential compression device. Good distal perfusion on the left foot. Internal Medicine - CN: Reslt - Labs Labs: Urine 04/14/18 Range/Units 07:45 Urine Color Yellow (Yellow) Urine Appearance Clear (Clear) Urine pH 5.5 (5.0-8.5) Ur Specific [place] 1.015 (1.005-1.030) Urine Protein Negative (Negative) Urine Glucose (UA) Negative (Negative) Assessment and Plan (1) Charcot's joint of right foot Current visit: Yes Status: Acute Category: Medical Code(s): M14.671 - Charcot's joint, right ankle and foot Agree with need for rehabilitation bed given her morbid obesity and nonweightbearing status (2) Type 2 diabetes mellitus with Charcot's joint of right foot Current visit: Yes Status: Acute Category: Medical Code(s): E11.610 - Type 2 diabetes mellitus with diabetic neuropathic arthropathy Sliding scale insulin ordered. Agree with holding oral medications. Check basic metabolic profile tomorrow. (3) Obesity, Class III, BMI 40-49.9 (morbid obesity) Current visit: Yes Status: Acute Category: Medical Code(s): E66.01 - Morbid (severe) obesity due to excess calories Limits exam accuracy and complicates all aspects of her care. (4) Vitamin D deficiency Current visit: Yes Status: Acute Category: Medical Code(s): E55.9 - Vitamin D deficiency, unspecified
[2018-04-15 07:03] LABS: Basophils % 0.1 % (0.1-2.0); Eosinophils # 0.1 K/mm3 (0.0-0.4); Eosinophils % 0.7 % (0.1-12.0); Hematocrit 35.2 % (37.0-47.0); Hemoglobin 10.5 g/dL (12.2-16.2); Lymphocytes # 1.5 K/mm3 (0.7-4.5); Lymphocytes % 8.7 K/mm3 (10-50); Mean Corpuscular Hemoglobin 24.7 pg (27.0-31.2); Mean Corpuscular Volume 82.5 fl (81-99); Mean Platelet Volume 8.7 fl (7.4-10.4); Monocytes # 1.1 K/mm3 (0.1-1.0); Monocytes % 6.4 % (1.7-9.3); Neutrophils # 14.5 K/mm3 (1.8-7.8); Platelet Count 248 K/mm3 (142-424); Red Blood Count 4.27 M/mm3 (4.20-5.40); Red Cell Distribution Width 15.8 % (11.5-17.5); White Blood Count 17.2 K/mm3 (4.8-10.8)
[2018-04-15 07:12] LABS: Albumin Level 2.6 gm/dL (3.4-5.0); Albumin/Globulin Ratio 0.7 (1.1-1.8); Anion Gap 13.2 mEq/L (5-15); Bilirubin,Total 0.3 mg/dL (0.2-1.0); Calcium 8.3 mg/dL (8.5-10.1); Potassium 4.2 mmoL/L (3.5-5.1); Total Protein,Serum 6.6 gm/dL (6.4-8.2)
--- NOTE | 2018-04-15 07:32 | Pharmacy Consult Notes ---
[facility] Pharmacy VTE Monitoring - Patient Demographics Admission date: 04/14/18 Report Date: 04/15/18 Time: 07:32 Allergies/Adverse Reactions: Patient Allergies codeine [CODEINE] Allergy (Mild, Verified 04/14/18 06:20) STOMACH CRAMPS morphine [MORPHINE] Allergy (Mild, Verified 04/14/18 06:20) STOMACH CRAMPS oxycodone [From Percocet] Allergy (Mild, Verified 04/14/18 06:20) STOMACH CRAMPS amoxicillin [AMOXICILLIN] Allergy (Unknown, Verified 04/14/18 06:20) Height: 1.68 m Weight: 146.51 kg Patient Problems: Current Active Problems Charcot's joint of right foot (Acute) Type 2 diabetes mellitus with Charcot's joint of right foot (Acute) Obesity, Class III, BMI 40-49.9 (morbid obesity) (Acute) Vitamin D deficiency (Acute) - VTE Risk Labs: VTE Related Lab Results Hgb 10.5 g/dL (12.2-16.2) L 04/15/18 06:44 Hct 35.2 % (37.0-47.0) L 04/15/18 06:44 Plt Count 248 K/mm3 (142-424) 04/15/18 06:44 BUN 22 mg/dL (7-18) H 04/15/18 06:44 Creatinine 0.93 mg/dL (0.55-1.02) 04/15/18 06:44 Estimated Creat Clear 69 mL/min (0-300) 04/15/18 06:44 - Prophylaxis VTE Prophylaxis Ordered?: Yes Types of VTE Prophylaxis: Pharmacological Pharmacologic Type: Enoxaparin - VTE Diagnosis Confirmed Treatment or plan recommended: Continue Current Treatment
--- NOTE | 2018-04-15 08:34 | Progress Note ---
Internal Medicine - PN: Subj *Date: 04/15/18 *Time: 08:29 Interval history: Patient has done well overnight, glucose level has been higher but responding well to sliding scale insulin. She has had no cardiac or pulmonary difficulties. She is pleasant and alert this morning. Rounded on patient and discussed case with surgeon. Exam Vital signs and Labs for Last 24 Hours: Temp Pulse Resp BP Pulse Ox 98.8 F 96 H 16 153/79 92 L 04/15/18 08:00 04/15/18 08:00 04/15/18 08:00 04/15/18 08:00 04/15/18 08:00 Laboratory Results - last 24 hr 04/14/18 07:45: Urine Color Yellow, Urine Appearance Clear, Urine pH 5.5, Ur Specific [place] 1.015, Urine Protein Negative, Urine Glucose (UA) Negative, Urine Ketones Negative, Urine Blood Negative, Urine Nitrate Negative, Urine Bilirubin Negative, Urine Urobilinogen 0.2, Ur Leukocyte Esterase Negative, Urine RBC None, Urine WBC None, Ur Squamous Epith Cells Occasional, Urine Bacteria Trace 04/14/18 20:37: POC Glucose 407 H* 04/15/18 05:36: POC Glucose 314 H* 04/15/18 06:44: WBC 17.2 H, RBC 4.27, Hgb 10.5 L, Hct 35.2 L, MCV 82.5, MCH 24.7 L, MCHC 30.0 L, RDW 15.8, Plt Count 248, MPV 8.7, Neut % (Auto) 84.0 H, Lymph % (Auto) 8.7 L, [place] % (Auto) 6.4, Eos % (Auto) 0.7, Baso % (Auto) 0.1, Neut # (Auto) 14.5 H, Lymph # (Auto) 1.5, [place] # (Auto) 1.1 H, Eos # (Auto) 0.1 , Baso # (Auto) 0.0 04/15/18 06:44: Sodium 136, Potassium 4.2, Chloride 102, Carbon Dioxide 25, Anion Gap 13.2, BUN 22 H, Creatinine 0.93, Estimated Creat Clear 69, Estimated GFR 64, Est GFR ( Amer) 78, Glucose 337 H, Calcium 8.3 L, Total Bilirubin 0.3, AST 23, ALT 19, Alkaline Phosphatase 88, Total Protein 6.6, Albumin 2.6 L, Globulin 4.0 H, Albumin/Globulin Ratio 0.7 L 04/15/18 06:44: Hemoglobin A1c 8.9 H I & O for Last 24 hours: Intake & Output 04/12/18 04/13/18 04/14/18 04/15/18 11:59 11:59 11:59 11:59 Intake Total 4554 / 4554 Output Total 400 / 400 Balance 4154 / 4154 Weight 298 lb 323 lb Microbiology Reports for the Last 24 Hours: Microbiology 04/14/18 Unknown Foot,Right Gram Stain - Final Narrative: Patient is pleasant, alert. Cardiopulmonary exam unchanged. Foot exam deferred to podiatry. Assessment and Plan (1) Charcot's joint of right foot Current visit: Yes Status: Acute Category: Medical Code(s): M14.671 - Charcot's joint, right ankle and foot (2) Type 2 diabetes mellitus with Charcot's joint of right foot Current visit: Yes Status: Acute Category: Medical Code(s): E11.610 - Type 2 diabetes mellitus with diabetic neuropathic arthropathy (3) Obesity, Class III, BMI 40-49.9 (morbid obesity) Current visit: Yes Status: Acute Category: Medical Code(s): E66.01 - Morbid (severe) obesity due to excess calories (4) Vitamin D deficiency Current visit: Yes Status: Acute Category: Medical Code(s): E55.9 - Vitamin D deficiency, unspecified - Assessment and plan all Dx Assessment and Plan for all problems:: Agree with charge planning. Discussed with patient possible advantages of going to extended care facility.
--- NOTE | 2018-04-15 08:48 | Discharge Summary ---
General - General Admission date:: 04/14/18 Discharge date: 04/15/18 HPI HPI: Ms. Colon is a 47 y/o DM female who presents for right foot Charcot reconstruction. She was granted medical and cardiac clearance by Dr. Lynch and Dr. Manzano. She was admitted for 23 observation then discharged to [facility]. Patient seen on second floor after surgery. Awake, alert, oriented 3. Complains of pain in the right hand and lip. She denies N/V, F/C, SOB/CP. The patient had a uncomplicated hospital stay. Hospital Course Hospital Course: Patient was admitted 04/14/18 for 23 hour observation prior to being discharged to [facility]. Hospital stay was uneventful. Syed is the primary care physician by Dr. Senior was consulted for medical management of blood pressure, diabetes and fluids. Pain controlled. Concerns for postop immobilization and mobility, plan to discharge to SNF for rehab. Objective Vital signs: Temp Pulse Resp BP Pulse Ox 98.8 F 96 H 16 153/79 92 L 04/15/18 08:00 04/15/18 08:00 04/15/18 08:00 04/15/18 08:00 04/15/18 08:00 Narrative: Vital signs are stable. Denies nausea, vomiting, fever, chills, shortness of breath and chest pain - *Routine HEENT Exam Head: Present: normocephalic - *Routine Neck Exam Present: supple. Absent: JVD - *Routine Respiratory Exam Present: accessory muscle use - *Routine Cardiovascular Exam Present: RRR - *Routine Abdominal Exam Present: soft. Absent: tenderness - *Routine Rectal Exam Patient deferred: visual exam - *Routine Exam Patient deferred: external exam - *Routine Extremities Exam Present: pulses intact, normal capillary refill. Absent: calf tenderness, pallor, amputation - *Routine Skin Exam Present: intact, dry, lesions (groin, arm) - *Routine Neurological Exam Present: alert, oriented X3, moving all extremities - Detailed Lower Extremity Exam Comments: Ex fix intact to the right lower extremity. Dressing clean dry and intact no strikethrough. Capillary fill time within normal limits. Light touch sensation at baseline. No calf or thigh pain noted bilaterally. Motor function limited to the right lower extremity secondary to nerve block Results Labs on day of discharge: Labs from last 24 hours 04/15/18 04/15/18 04/15/18 06:44 06:44 06:44 WBC 17.2 H RBC 4.27 Hgb 10.5 L Hct 35.2 L MCV 82.5 MCH 24.7 L MCHC 30.0 L RDW 15.8 Plt Count 248 MPV 8.7 Neut % (Auto) 84.0 H Lymph % (Auto) 8.7 L [place] % (Auto) 6.4 Eos % (Auto) 0.7 Baso % (Auto) 0.1 Neut # (Auto) 14.5 H Lymph # (Auto) 1.5 [place] # (Auto) 1.1 H Eos # (Auto) 0.1 Baso # (Auto) 0.0 Sodium 136 Potassium 4.2 Chloride 102 Carbon Dioxide 25 Anion Gap 13.2 BUN 22 H Creatinine 0.93 Estimated Creat Clear 69 Estimated GFR 64 Est GFR ( Amer) 78 Glucose 337 H POC Glucose Hemoglobin A1c 8.9 H Calcium 8.3 L Total Bilirubin 0.3 AST 23 ALT 19 Alkaline Phosphatase 88 Total Protein 6.6 Albumin 2.6 L Globulin 4.0 H Albumin/Globulin Ratio 0.7 L Urine Color Urine Appearance Urine pH Ur Specific [place] Urine Protein Urine Glucose (UA) Urine Ketones Urine Blood Urine Nitrate Urine Bilirubin Urine Urobilinogen Ur Leukocyte Esterase Urine RBC Urine WBC Ur Squamous Epith Cells Urine Bacteria 04/15/18 04/14/18 04/14/18 05:36 20:37 07:45 WBC RBC Hgb Hct MCV MCH MCHC RDW Plt Count MPV Neut % (Auto) Lymph % (Auto) [place] % (Auto) Eos % (Auto) Baso % (Auto) Neut # (Auto) Lymph # (Auto) [place] # (Auto) Eos # (Auto) Baso # (Auto) Sodium Potassium Chloride Carbon Dioxide Anion Gap BUN Creatinine Estimated Creat Clear Estimated GFR Est GFR ( Amer) Glucose POC Glucose 314 H* 407 H* Hemoglobin A1c Calcium Total Bilirubin AST ALT Alkaline Phosphatase Total Protein Albumin Globulin Albumin/Globulin Ratio Urine Color Yellow Urine Appearance Clear Urine pH 5.5 Ur Specific [place] 1.015 Urine Protein Negative Urine Glucose (UA) Negative Urine Ketones Negative Urine Blood Negative Urine Nitrate Negative Urine Bilirubin Negative Urine Urobilinogen 0.2 Ur Leukocyte Esterase Negative Urine RBC None Urine WBC None Ur Squamous Epith Cells Occasional Urine Bacteria Trace - Additional Comments WBC elevated-use incentive spirometer DS: Diagnosis - Discharge Diagnosis (1) Charcot's joint of right foot Status: Acute (2) Type 2 diabetes mellitus with Charcot's joint of right foot Status: Acute (3) Obesity, Class III, BMI 40-49.9 (morbid obesity) Status: Acute (4) Vitamin D deficiency Status: Acute Discharge Plan - Patient Discharge Instructions ACTIVITY: Limited activity DIET: continue same diet Additional Instructions: Maintain dressing clean dry and intact to the right lower extremity Elevate right lower extremity on pillows Use Cryo/Cuff polar pack Continue incentive spirometer as directed No bearing to the right lower extremity with walker and wheelchair Physical therapy for gait training and transitions May ambulate as tolerated but must reamin nonweightbearing RLE with DME Patient Instructions: Overweight in Adults, Type 2 Diabetes, Vitamin D Deficiency, Surgical Site Infection - Follow up Plan Follow up with: Dione Castro DPM [Physician] - Disposition: er [facility] Home Medications: Home Medications Medication Instructions Recorded Confirmed Type blood sugar diagnostic strips See Dose Instructions .ROUTE 12/28/17 04/14/18 History .MEDSUPPLY 30 Days #100 each carvedilol 6.25 mg tablet 6.25 mg PO BID 30 Days #60 12/28/17 04/15/18 History duloxetine 60 mg capsule,delayed 60 mg PO BID 30 Days #60 12/28/17 04/15/18 History release glipizide 5 mg tablet 5 mg PO DAILY 30 Days #120 12/28/17 04/14/18 History hydrocodone 10 mg-acetaminophen 10 mg PO Q6HP PRN 30 Days #120 12/28/17 History 325 mg tablet insulin glargine (U-100) 100 70 unit SUB-Q HS 22 Days #15 12/28/17 04/15/18 History unit/mL (3 mL) subcutaneous pen isosorbide mononitrate ER 60 mg 60 mg PO DAILY 30 Days #30 12/28/17 04/14/18 History tablet,extended release 24 hr liraglutide 0.6 mg/0.1 mL (18 mg/3 1.2 mg SUB-Q DAILY 30 Days #9 12/28/17 History mL) subcutaneous pen injector pen needle, diabetic 32 gauge x See Dose Instructions .ROUTE 12/28/17 04/14/18 History 11/19" .MEDSUPPLY 25 Days #100 each pregabalin 225 mg capsule 225 mg PO BID 30 Days #60 12/28/17 04/15/18 History ramipril 10 mg capsule 10 mg PO DAILY 30 Days #30 12/28/17 04/14/18 History trazodone 100 mg tablet 100 g PO HS 30 Days #30 12/28/17 04/15/18 History atorvastatin 40 mg tablet 40 mg PO HS 30 Days #30 03/01/18 04/15/18 History lorazepam 1 mg tablet 1 mg PO Q8HP PRN 10 Days #30 03/01/18 04/15/18 History tramadol 50 mg tablet 50 mg PO Q8HP PRN 30 Days #120 03/01/18 04/15/18 History Cholecalciferol (Vitamin D3) 50,000 unit PO WEEKLY 04/15/18 04/15/18 History [Vitamin D3 50,000 unit Cap] Docusate Sodium 100 mg PO DAILY 04/15/18 04/15/18 History Enoxaparin Sodium [Lovenox 40 mg SUB-Q DAILY 04/15/18 04/15/18 History 40mg/0.4mL syringe] Fluconazole [Diflucan] 100 mg PO Q24H 04/15/18 04/15/18 History Ibuprofen [Ibu] 800 mg PO BID 04/15/18 04/15/18 History Nystatin 1 applic TOPICAL BID 04/15/18 04/15/18 History Ondansetron [Zofran 4mg ODT] 4 mg PO Q6HP PRN 04/15/18 04/15/18 History cephALEXin [Cephalexin 500mg Tab] 500 mg PO Q12 04/15/18 04/15/18 History Prescriptions/Medication Reconciliation: New Enoxaparin Sodium [Lovenox 40mg/0.4mL syringe] 40 mg SQ DAILY syringe Ergocalciferol (Vitamin D2) [Drisdol 50,000 units (1.25mg) capsule] 50,000 unit PO WEEKLY capsule Fluconazole [Diflucan 100mg tablet] 100 mg PO DAILY tablet Ondansetron HCl/Pf [Zofran 4mg/2mL vial] 4 mg IV Q6HP PRN vial PRN Reason: Nausea Hydrocodone/Acetaminophen [Lortab 10/325mg tablet] 2 tab PO Q4HP PRN # 40 tablet PRN Reason: Moderate Pain Continue liraglutide 0.6 mg/0.1 mL (18 mg/3 mL) subcutaneous pen injector 1.2 mg SUB- Q DAILY 30 Days #9 insulin glargine (U-100) 100 unit/mL (3 mL) subcutaneous pen 70 unit SUB-Q HS 22 Days #15 duloxetine 60 mg capsule,delayed release 60 mg PO BID 30 Days #60 isosorbide mononitrate ER 60 mg tablet,extended release 24 hr 60 mg PO DAILY 30 Days #30 hydrocodone 10 mg-acetaminophen 325 mg tablet 10 mg PO Q6HP PRN 30 Days #120 PRN Reason: PAIN blood sugar diagnostic strips See Dose Instructions .ROUTE .MEDSUPPLY 30 Days #100 each carvedilol 6.25 mg tablet 6.25 mg PO BID 30 Days #60 glipizide 5 mg tablet 5 mg PO DAILY 30 Days #120 trazodone 100 mg tablet 100 g PO HS 30 Days #30 ramipril 10 mg capsule 10 mg PO DAILY 30 Days #30 lorazepam 1 mg tablet 1 mg PO Q8HP PRN 10 Days #30 PRN Reason: Anxiety pregabalin 225 mg capsule 225 mg PO BID 30 Days #60 atorvastatin 40 mg tablet 40 mg PO HS 30 Days #30 tramadol 50 mg tablet 50 mg PO Q8HP PRN 30 Days #120 PRN Reason: PAIN cephALEXin [Cephalexin 500mg Tab] 500 mg PO Q12 Enoxaparin Sodium [Lovenox 40mg/0.4mL syringe] 40 mg SUB-Q DAILY Fluconazole [Diflucan] 100 mg PO Q24H Nystatin 1 applic TOPICAL BID Ondansetron [Zofran 4mg ODT] 4 mg PO Q6HP PRN PRN Reason: NAUSEA/VOMITING Docusate Sodium 100 mg PO DAILY Ibuprofen [Ibu] 800 mg PO BID Cholecalciferol (Vitamin D3) [Vitamin D3 50,000 unit Cap] 50,000 unit PO WEEKLY No Action pen needle, diabetic 32 gauge x 1/4" See Dose Instructions .ROUTE .MEDSUPPLY 25 Days #100 each
--- NOTE | 2018-04-15 08:57 | Progress Note ---
Subjective Date: 04/15/18 Time: 07:40 Principal diagnosis: R Charcot Interval history: Postop day 1 status post right foot Charcot reconstruction. Patient resting comfortably in bed. Pain controlled PN: Obj Ex Vital signs: Temp Pulse Resp BP Pulse Ox 98.8 F 96 H 16 153/79 92 L 04/15/18 08:00 04/15/18 08:00 04/15/18 08:00 04/15/18 08:00 04/15/18 08:00 - Urinary Catheter Management Lopez Cath placed during this visit: yes, but has since been removed by the nurse Urethral indwelling: No Reason for continuing: Prolonged immobilization Insertion date: 04/14/18 Insertion time: 07:45 Removal date: 04/15/18 (remove) Progress Note: A&P (1) Charcot's joint of right foot Status: Acute Current Visit: Yes (2) Type 2 diabetes mellitus with Charcot's joint of right foot Status: Acute Current Visit: Yes (3) Obesity, Class III, BMI 40-49.9 (morbid obesity) Status: Acute Current Visit: Yes (4) Vitamin D deficiency Status: Acute Current Visit: Yes Assessment and Plan for All Diagnoses:: See discharge summary S/P R charcot reconstruction POD # 1 Plan to d/c to [place]
[2018-04-15 09:32] LABS: Lymphocytes % 14 % (10-50); Monocytes % 4 % (2-9); Neutrophils % 82 % (42-76); Total Cells Counted 100
[2018-04-15 09:33] LABS: Hypochromasia 1+
[2018-04-15 15:46] VITALS: BP 105/59
== END 2018-04-15 15:25 ==
LOC: OR 05:59 → 2ND 05:59
PROVIDERS: ADMIT Podiatrist; ATTEND Podiatrist

== ENCOUNTER → 2018-04-28 08:23 | Outpatient (CLI) | payer BC, SELFPAY ==
--- NOTE | 2018-04-28 08:23 | XR_ITS ---
XR ankle wt bearing RT min 3V HISTORY: Follow-up surgery/external fixator placement ITS.REASON: postop views ORDERING PHYSICIAN: Dione Castro DPM PATIENT AGE: 47 years Comparison: 04/14/2018 FINDINGS: The external fixator remains in place encircling the distal tibia ankle and foot with stabilizing crossing wires in the mid and distal tibia and foot with good alignment. Extensive postsurgical changes are present with fusion of the posterior talocalcaneal joint with a screw present from the posterior aspect of the calcaneus into the talus. Bone plate is present over the dorsal aspect of the foot with multiple screws with additional long lag screw in the first metatarsal and also extending from the calcaneus to the fourth metatarsal region. These are obscured by the overlying fixator device and ankle positioning. IMPRESSION: No change in the external fixator described above with postsurgical changes of the foot and talocalcaneal area
== END ==
PROVIDERS: Visit Provider Podiatrist
DX: Z98.890 Other specified postprocedural states (principal); M14.671 Charcot's joint, right ankle and foot
CPT/HCPCS: 73610

== ENCOUNTER → 2018-05-05 08:56 | Outpatient (CLI) | payer BC, SELFPAY ==
--- NOTE | 2018-05-05 09:05 | XR_ITS ---
XR tibia fibula RT 2V CLINICAL INDICATION: Follow-up surgery, follow-up Charcot foot reconstruction ITS.REASON: postop views ORDERING PHYSICIAN: Dione Castro DPM PATIENT AGE: 47 years Comparison: 04/09/2018 FINDINGS: External fixator device present surrounding the leg foot and ankle. There are crossing wires in the proximal ring of the device intersecting in the mid to distal tibial shaft. Crossing wires are present at the distal leg, in the calcaneal region, and in the midfoot. Bone plate is present over the medial aspect of the mid foot at the talus, navicular, medial cuneiform, and proximal aspect of first metatarsal. There is a lag screw traversing from the posterior inferior calcaneal area to the talus and one from the posterior calcaneus to the distal aspect of the first metatarsal. Bony details secured by overlying metallic hardware. IMPRESSION: Status post extensive foot surgery with Charcot foot reconstruction with external fixator device present as described above
--- NOTE | 2018-05-05 09:05 | XR_ITS ---
XR knee RT 2V HISTORY: Follow-up ORIF with external fixator present, pain ITS.REASON: pain ORDERING PHYSICIAN: Dione Castro DPM PATIENT AGE: 47 years COMPARISON: None FINDINGS: No fracture or dislocation. No lytic or blastic change. Normal mineralization. No significant arthritic changes evident. No other significant findings IMPRESSION: Negative Knee
== END ==
PROVIDERS: Visit Provider Podiatrist
DX: Z98.890 Other specified postprocedural states (principal)
CPT/HCPCS: 73560; 73590; 73630

== ENCOUNTER → 2018-06-03 11:40 | Outpatient (CLI) | payer BC, SELFPAY ==
[2018-06-03 11:54] LABS: Basophils # 0.1 K/mm3 (0-0.2); Basophils % 0.4 % (0.1-2.0); Eosinophils # 0.4 K/mm3 (0.0-0.4); Eosinophils % 3.1 % (0.1-12.0); Hematocrit 37.9 % (37.0-47.0); Hemoglobin 11.6 g/dL (12.2-16.2); Lymphocytes # 1.9 K/mm3 (0.7-4.5); Lymphocytes % 16.1 K/mm3 (10-50); Mean Corpuscular HGB Conc 30.5 g/dL (31.8-35.4); Mean Corpuscular Hemoglobin 25.2 pg (27.0-31.2); Mean Corpuscular Volume 82.7 fl (81-99); Mean Platelet Volume 8.6 fl (7.4-10.4); Monocytes # 0.6 K/mm3 (0.1-1.0); Monocytes % 5.2 % (1.7-9.3); Neutrophils # 8.8 K/mm3 (1.8-7.8); Neutrophils % 75.2 % (37.0-80.0); Platelet Count 346 K/mm3 (142-424); Red Blood Count 4.59 M/mm3 (4.20-5.40); Red Cell Distribution Width 14.9 % (11.5-17.5); White Blood Count 11.7 K/mm3 (4.8-10.8)
[2018-06-03 13:02] LABS: Alanine Aminotransferase 19 U/L (12-78); Albumin Level 3.1 gm/dL (3.4-5.0); Albumin/Globulin Ratio 0.7 (1.1-1.8); Alkaline Phosphatase 101 U/L (46-116); Anion Gap 10.7 mEq/L (5-15); Aspartate Amino Transferase 12 U/L (15-37); Bilirubin,Total 0.3 mg/dL (0.2-1.0); Blood Urea Nitrogen 15 mg/dL (7-18); Carbon Dioxide 27 mmol/L (21.0-32.0); Chloride 104 mmol/L (98-107); Creatinine,Serum 0.93 mg/dL (0.55-1.02); Estimated Glomerular Filt Rate 64 ml/min (>60); GFR (African American) 78 ML/MIN (>60); Globulin 4.2 gm/dl (1.3-3.2); Glucose 157 mg/dL (74-106); Potassium 4.7 mmoL/L (3.5-5.1); Sodium 137 mmol/L (136-145); Total Protein,Serum 7.3 gm/dL (6.4-8.2)
[2018-06-04 11:14] LABS: C-Reactive Protein 3.9 mg/L (0.0-0.9)
[2018-06-04 11:43] LABS: Erythrocyte Sedimentation Rate 98 mm/hr (0-20)
== END ==
PROVIDERS: Visit Provider Podiatrist
DX: Z01.812 Encounter for preprocedural laboratory examination (principal); E11.610 Type 2 diabetes mellitus with diabetic neuropathic arthropathy
CPT/HCPCS: 36415; 80053; 85025; 85651; 86140; 87070; 87077; 87186; 87205

== ENCOUNTER → 2018-07-08 10:57 | Outpatient (CLI) | payer BC, SELFPAY ==
--- NOTE | 2018-07-08 11:00 | XR_ITS ---
XR ankle wt bearing LT min 3V HISTORY: Follow-up surgery ITS.REASON: post-op views ORDERING PHYSICIAN: Dione Castro DPM PATIENT AGE: 48 years Comparison: 01/11/2018 FINDINGS: No fracture or dislocation. No lytic or blastic change. There is normal mineralization.. The joint spaces are well-preserved. No significant degenerative/arthritic changes. No erosive changes evident. IMPRESSION: Negative ankle, no acute finding
--- NOTE | 2018-07-08 11:00 | XR_ITS ---
XR ankle wt bearing RT min 3V HISTORY: Follow-up surgery ITS.REASON: post-op views ORDERING PHYSICIAN: Dione Castro DPM PATIENT AGE: 48 years Comparison: 06/09/2018 FINDINGS: Patient has had extensive foot surgery as described in the report. The ankle has an unremarkable appearance other than defects within the distal tibia from prior external fixator device placement. Please see foot report for description of the foot fixation devices IMPRESSION: Lucent defect in the distal tibia from prior external fixator otherwise negative right ankle
--- NOTE | 2018-07-08 11:00 | XR_ITS ---
XR foot wt bearing LT 3V HISTORY: Follow-up surgery, pain ITS.REASON: post-op views ORDERING PHYSICIAN: Dione Castro DPM PATIENT AGE: 48 years COMPARISON: 03/01/2018 FINDINGS: Lateral angulation of the distal phalanx of the great toe. Severe pes planus with superior displacement of the navicular on the talus x 7 mm more extensive than before. Flexion formerly of the first through fifth toes. Small calcaneal spur. No acute fracture or dislocation. Bony spurring/fragmentation noted at the junction of the talus, cuboid, and navicular and calcaneus on the oblique view. IMPRESSION: Pes planus which is worse with increasing superior displacement of the navicular
--- NOTE | 2018-07-08 11:00 | XR_ITS ---
XR foot wt bearing RT 3V HISTORY: Follow-up surgery ITS.REASON: post-op views ORDERING PHYSICIAN: Dione Castro DPM PATIENT AGE: 48 years COMPARISON: 06/09/2018 FINDINGS: Overall no change in the extensive foot surgery as previously described with multiple screws extending from the posterior calcaneus to the base of the third metatarsal and from the posterior calcaneus into the talus with the bone plate over the medial aspect of the talus, navicular, medial cuneiform and proximal aspect of the first metatarsal along with a long screw within the first metatarsal into the medial cuneiform and navicular region. Previously there was questionable periosteal reaction involving the shaft of the third metatarsal. There remains some minimal cortical thickening at this region but no obvious fracture. No fracture evident at the fourth metatarsal. IMPRESSION: Overall no change status post extensive foot surgery with hardware in place with good alignment
== END ==
PROVIDERS: PCP Internal Medicine; Visit Provider Podiatrist
DX: Z98.890 Other specified postprocedural states (principal); E11.610 Type 2 diabetes mellitus with diabetic neuropathic arthropathy
CPT/HCPCS: 73610; 73630

== ENCOUNTER → 2018-08-12 11:33 | Outpatient (POV) | payer BC, SELFPAY | PROVIDERS: Visit Provider Dentist | DX: Z00.00 Encounter for general adult medical examination without abnormal findings (principal) ==

== ENCOUNTER 2018-08-24 13:00 | Outpatient (RCR) | payer BC, SELFPAY ==
--- NOTE | 2018-07-13 08:52 | HMH.PTOPEV ---
PT Outpatient Evaluation Rehab PT Outpatient Evaluation Start: 07/13/18 08:03 Freq: Status: Active Protocol: Document 07/13/18 08:33 HERBERT (Rec: 07/13/18 08:51 PHORINGRID [id number]) Electronically Signed By Moo Sibley, PT 07/13/18 08:33 Outpatient Therapy Subjective History Subjective History Pt is 48 yowf who presents 3 mos S/P right charcot reconstruction with ex-fix placement, now ~1 mo S/P ex- fix removal. Pt reports minimal discomfort at rest, pain with walking and standing even for short periods. She reports pain in her heel almost all of the time which she attributes to her achilles lengthening procedure. She has extensive PMH of: DM-II with neuropathy, fibromyalgia, [place], CAD with stents x 5, APpy , CCY, Fahad, implanted stimulator, multiple knee surgeries. Chief Complaint Pain Stiff Symptom Type Ache Symptoms Relieved By Rest/Positioning Symptoms Aggravated By Physical Activity Walking Prior Functional Limitations Standing Walking Current Functional Limitations Standing Walking Symptom Description Intermittent Activity Dependent Level of pain today (0-10) 3 Pain scale - at its worst (0-10) 8 Ankle/Foot Eval Gait Observation General Gait Pattern Observation Antalgic Gait Decrease Weight Bear (R) Decrease Stride Lngth (R) Assistive Device Ambulation Assistive Device Standard Walker ROM right Ankle/Foot Dorsiflexion w/Knee Extended 0-15 Active Range Motion (degrees) Ankle/Foot Dorsiflexion w/Knee Extended 0-18 Passive Range (degrees) Ankle/Foot Plantar Flexion Active Range 0-20 of Motion (degrees) Ankle/Foot Plantar Flexion Passive Range 0-30 of Motion (degrees) Ankle/Foot Eversion Active Range of 0-5 Motion (degrees) Ankle/Foot Eversion Passive Range of 0-7 Motion (degrees) Ankle/Foot Inversion Active Range of 0-2 Motion (degrees) Ankle/Foot Inversion Passive Range of 0-4 Motion (degrees) MMT Ankle Dorsiflexion Strength Grade 2 Poor Ankle Plantarflexion Stre
== END 2018-08-24 13:01 | disposition home or self-care (01) ==
LOC: PT 13:00
PROVIDERS: Family Provider Internal Medicine; PCP Internal Medicine; Visit Provider Podiatrist
DX: M14.671 Charcot's joint, right ankle and foot (principal); E11.610 Type 2 diabetes mellitus with diabetic neuropathic arthropathy
CPT/HCPCS: 97010; 97014; 97016; 97033; 97110; 97140; 97163; G0283

== ENCOUNTER → 2018-09-09 10:45 | Outpatient (CLI) | payer BC, SELFPAY ==
--- NOTE | 2018-09-09 10:47 | XR_ITS ---
XR foot wt bearing RT 3V HISTORY: ITS.REASON: pain ORDERING PHYSICIAN: Dione Castor DPM PATIENT AGE: 48 years COMPARISON: 07/08/2018 FINDINGS: FINDINGS: Overall no change in the extensive foot surgery as previously described with multiple screws extending from the posterior calcaneus to the base of the third metatarsal and from the posterior calcaneus into the talus with the bone plate over the medial aspect of the talus, navicular, medial cuneiform and proximal aspect of the first metatarsal along with a long screw within the first metatarsal into the medial cuneiform and navicular region. No acute fracture or dislocation. Flexion deformity involves all toes.. IMPRESSION: Overall no change status post extensive foot surgery with hardware in place with good alignment
--- NOTE | 2018-09-09 10:47 | XR_ITS ---
XR foot wt bearing LT 3V HISTORY: Left foot pain ITS.REASON: pain ORDERING PHYSICIAN: Dione Castro DPM PATIENT AGE: 48 years COMPARISON: 07/08/2018 FINDINGS: There is flexion deformity involving all the toes with lateral angulation of the distal phalanx of the great toe. There is severe pes planus with superior displacement of the navicular on the talus 6 mm similar to the previous exam. Osteoarthritic changes are present at the calcaneocuboid joint and the talonavicular joint. IMPRESSION: Overall no change severe pes planus with hammertoe deformity and osteoarthritis of the midfoot
== END ==
PROVIDERS: PCP Internal Medicine; Visit Provider Podiatrist
DX: M79.673 Pain in unspecified foot (principal)
CPT/HCPCS: 73630

== ENCOUNTER → 2018-11-01 13:10 | Outpatient (CLI) | payer BC, SELFPAY ==
--- NOTE | 2018-11-01 13:14 | XR_ITS ---
XR foot wt bearing LT 3V HISTORY: Follow-up Charcot joint ITS.REASON: Charcot ORDERING PHYSICIAN: Dione Castro DPM PATIENT AGE: 48 years COMPARISON: 09/09/2018 FINDINGS: There is flexion deformity involving all the toes with lateral angulation of the distal phalanx of the great toe. There is severe pes planus with superior displacement of the navicular on the talus. Pes planus has progressed. Previously there was 6 mm superior displacement of the navicular on the talus whereas now there is approximately 14 mm superior displacement of the talonavicular. The talus is tilted inferiorly. Osteoarthritic changes are present at the talonavicular joint. Osteoarthritic changes are present at the calcaneocuboid joint and the talonavicular joint. IMPRESSION: Progression of pes planus with increasing inferior displacement of the talus with inferior talar tilt
--- NOTE | 2018-11-01 13:14 | XR_ITS ---
XR foot wt bearing RT 3V HISTORY: Follow-up foot surgery, Charcot joint ITS.REASON: Charcot ORDERING PHYSICIAN: Dione Castro DPM PATIENT AGE: 48 years COMPARISON: 09/09/2018 FINDINGS: Overall no change in the extensive foot surgery as previously described with multiple screws extending from the posterior calcaneus to the base of the third metatarsal and from the posterior calcaneus into the talus with the bone plate over the medial aspect of the talus, navicular, medial cuneiform and proximal aspect of the first metatarsal along with a long screw within the first metatarsal into the medial cuneiform and navicular region. No acute fracture or dislocation. Flexion deformity involves all toes.. The distal aspect long screw within the first metatarsal does project into the first metatarsophalangeal joint not significant changed IMPRESSION: Overall no change status post extensive foot surgery with hardware in place with good alignment
== END ==
PROVIDERS: PCP Internal Medicine; Visit Provider Podiatrist
DX: E11.610 Type 2 diabetes mellitus with diabetic neuropathic arthropathy (principal); M14.671 Charcot's joint, right ankle and foot
CPT/HCPCS: 73630

== ENCOUNTER → 2018-11-10 13:47 | Outpatient (CLI) | payer BC, SELFPAY ==
[2018-11-10 14:21] LABS: Basophils # 0.1 K/mm3 (0-0.2); Basophils % 0.7 % (0.1-2.0); Eosinophils # 0.3 K/mm3 (0.0-0.4); Eosinophils % 3.6 % (0.1-12.0); Hematocrit 35.1 % (37.0-47.0); Hemoglobin 10.8 g/dL (12.2-16.2); Lymphocytes # 2.4 K/mm3 (0.7-4.5); Lymphocytes % 27.6 % (10-50); Mean Corpuscular HGB Conc 30.9 g/dL (31.8-35.4); Mean Corpuscular Hemoglobin 25.6 pg (27.0-31.2); Mean Platelet Volume 7.7 fl (7.4-10.4); Monocytes # 0.4 K/mm3 (0.1-1.0); Monocytes % 4.6 % (1.7-9.3); Neutrophils # 5.5 K/mm3 (1.8-7.8); Neutrophils % 63.4 % (37.0-80.0); Platelet Count 304 K/mm3 (142-424); Red Blood Count 4.23 M/mm3 (4.20-5.40); Red Cell Distribution Width 15.4 % (11.5-17.5); White Blood Count 8.6 K/mm3 (4.8-10.8)
[2018-11-10 14:43] LABS: Alanine Aminotransferase 18 U/L (12-78); Albumin Level 2.9 gm/dL (3.4-5.0); Albumin/Globulin Ratio 0.7 (1.1-1.8); Alkaline Phosphatase 106 U/L (46-116); Anion Gap 11.6 mEq/L (5-15); Aspartate Amino Transferase 10 U/L (15-37); Bilirubin,Total 0.3 mg/dL (0.2-1.0); Blood Urea Nitrogen 20 mg/dL (7-18); C-Reactive Protein 4.4 mg/L (0.0-0.9); Calcium 9.1 mg/dL (8.5-10.1); Carbon Dioxide 29 mmol/L (21.0-32.0); Chloride 102 mmol/L (98-107); Creatinine,Serum 0.98 mg/dL (0.55-1.02); Estimated Glomerular Filt Rate 60 ml/min (>60); GFR (African American) 73 ML/MIN (>60); Globulin 4.1 gm/dl (1.3-3.2); Glucose 294 mg/dL (74-106); Potassium 4.6 mmoL/L (3.5-5.1); Sodium 138 mmol/L (136-145)
[2018-11-10 15:05] LABS: Erythrocyte Sedimentation Rate > 120 mm/hr (0-20)
[2018-11-10 16:39] LABS: Hemoglobin A1C 7.2 % (0.0-7.0)
== END ==
PROVIDERS: Visit Provider Podiatrist
DX: E11.610 Type 2 diabetes mellitus with diabetic neuropathic arthropathy (principal); M14.671 Charcot's joint, right ankle and foot
CPT/HCPCS: 36415; 80053; 83036; 85025; 85651; 86140; 87070; 87077; 87186; 87205

== ENCOUNTER → 2018-11-10 17:42 | Outpatient (CLI) | payer BC, SELFPAY | PROVIDERS: Visit Provider Podiatrist | DX: E11.610 Type 2 diabetes mellitus with diabetic neuropathic arthropathy (principal); L03.115 Cellulitis of right lower limb; L97.512 Non-pressure chronic ulcer of other part of right foot with fat layer exposed | CPT/HCPCS: 87070; 87205 ==

== ENCOUNTER → 2018-11-25 13:35 | Outpatient (CLI) | payer BC, SELFPAY ==
[2018-11-25 13:53] LABS: Basophils # 0.1 K/mm3 (0-0.2); Basophils % 0.5 % (0.1-2.0); Eosinophils # 0.3 K/mm3 (0.0-0.4); Eosinophils % 2.5 % (0.1-12.0); Hematocrit 38.9 % (37.0-47.0); Lymphocytes # 3.1 K/mm3 (0.7-4.5); Lymphocytes % 25.5 % (10-50); Mean Corpuscular HGB Conc 30.9 g/dL (31.8-35.4); Mean Corpuscular Hemoglobin 25.8 pg (27.0-31.2); Mean Corpuscular Volume 83.6 fl (81-99); Mean Platelet Volume 8.2 fl (7.4-10.4); Monocytes # 0.6 K/mm3 (0.1-1.0); Monocytes % 4.8 % (1.7-9.3); Neutrophils % 66.7 % (37.0-80.0); Platelet Count 323 K/mm3 (142-424); Red Blood Count 4.65 M/mm3 (4.20-5.40); Red Cell Distribution Width 15.7 % (11.5-17.5); White Blood Count 11.9 K/mm3 (4.8-10.8)
[2018-11-25 15:26] LABS: C-Reactive Protein 1.1 mg/L (0.0-0.9)
[2018-11-25 15:33] LABS: Erythrocyte Sedimentation Rate 72 mm/hr (0-20)
== END ==
PROVIDERS: Visit Provider Podiatrist
DX: L97.512 Non-pressure chronic ulcer of other part of right foot with fat layer exposed (principal)
CPT/HCPCS: 36415; 85025; 85651; 86140; 87070; 87077; 87186; 87205

== ENCOUNTER → 2018-12-09 15:02 | Outpatient (CLI) | payer BC, SELFPAY ==
--- NOTE | 2018-12-09 15:36 | XR_ITS ---
XR chest 2V HISTORY: ITS.REASON: HTN ORDERING PHYSICIAN: Dione Castro DPM PATIENT AGE: 48 years COMPARISON: 2018 FINDINGS: The cardiomediastinal silhouette and pulmonary vascularity are within normal limits. The lungs are clear without infiltrates, suspicious nodules, or pleural effusions. There is a calcified granuloma in the left upper lobe. Epidural catheter is present in the lower thoracic spine No acute bony abnormalities. IMPRESSION: No change with no acute finding
[2018-12-09 16:02] LABS: Basophils # 0.1 K/mm3 (0-0.2); Basophils % 0.4 % (0.1-2.0); Eosinophils # 0.2 K/mm3 (0.0-0.4); Hematocrit 35.1 % (37.0-47.0); Hemoglobin 10.9 g/dL (12.2-16.2); Lymphocytes # 2.5 K/mm3 (0.7-4.5); Lymphocytes % 23.8 % (10-50); Mean Corpuscular HGB Conc 30.9 g/dL (31.8-35.4); Mean Corpuscular Hemoglobin 25.8 pg (27.0-31.2); Mean Corpuscular Volume 83.5 fl (81-99); Mean Platelet Volume 8.5 fl (7.4-10.4); Monocytes # 0.5 K/mm3 (0.1-1.0); Monocytes % 4.4 % (1.7-9.3); Neutrophils # 7.3 K/mm3 (1.8-7.8); Neutrophils % 69.4 % (37.0-80.0); Platelet Count 251 K/mm3 (142-424); Red Cell Distribution Width 15.2 % (11.5-17.5); White Blood Count 10.6 K/mm3 (4.8-10.8)
[2018-12-09 16:07] LABS: INR 0.91 (0.9-1.1); Prothrombin Time 9.4 seconds (9.4-11.8)
--- NOTE | 2018-12-09 17:22 | XR_ITS ---
XR ankle wt bearing LT min 3V HISTORY: ITS.REASON: PRE-OP SURGERY LT FOOT AND ANKLE ORDERING PHYSICIAN: Dione Castro DPM PATIENT AGE: 48 years Comparison: None FINDINGS: No fracture or dislocation. No lytic or blastic change. There is normal mineralization.. The joint spaces are well-preserved. No significant degenerative/arthritic changes. No erosive changes evident. The patient has severe pes planus with rocker-bottom foot IMPRESSION: Negative ankle.
--- NOTE | 2018-12-09 17:22 | XR_ITS ---
XR foot wt bearing LT 3V HISTORY: Foot pain ORDERING PHYSICIAN: Dione Castro DPM PATIENT AGE: 48 years COMPARISON: 11/01/2018 FINDINGS: FINDINGS: There is flexion deformity involving all the toes with lateral angulation of the distal phalanx of the great toe. There is severe pes planus with superior displacement of the navicular on the talus. there is approximately 14 mm superior displacement of the talonavicular. The talus is tilted inferiorly. Osteoarthritic changes are present at the talonavicular joint. Osteoarthritic changes are present at the calcaneocuboid joint and the talonavicular joint. IMPRESSION: Severe pes planus with rocker-bottom foot overall not significant change. Hammertoe deformity
[2018-12-09 18:03] LABS: Erythrocyte Sedimentation Rate 69 mm/hr (0-20)
[2018-12-09 18:23] LABS: Alanine Aminotransferase 22 U/L (12-78); Albumin/Globulin Ratio 0.8 (1.1-1.8); Alkaline Phosphatase 108 U/L (46-116); Anion Gap 14.1 mEq/L (5-15); Aspartate Amino Transferase 10 U/L (15-37); Bilirubin,Total 0.3 mg/dL (0.2-1.0); Blood Urea Nitrogen 23 mg/dL (7-18); C-Reactive Protein 2.3 mg/L (0.0-0.9); Calcium 8.7 mg/dL (8.5-10.1); Carbon Dioxide 24 mmol/L (21.0-32.0); Chloride 103 mmol/L (98-107); Creatinine,Serum 0.94 mg/dL (0.55-1.02); Estimated Glomerular Filt Rate 63 ml/min (>60); GFR (African American) 76 ML/MIN (>60); Globulin 3.8 gm/dl (1.3-3.2); Potassium 5.1 mmoL/L (3.5-5.1); Sodium 136 mmol/L (136-145); Total Protein,Serum 6.8 gm/dL (6.4-8.2)
[2018-12-09 18:37] LABS: Glucose 407 mg/dL (74-106)
== END ==
PROVIDERS: PCP Internal Medicine; Visit Provider Podiatrist
DX: Z01.818 Encounter for other preprocedural examination (principal); E11.610 Type 2 diabetes mellitus with diabetic neuropathic arthropathy
CPT/HCPCS: 36415; 71046; 73610; 73630; 80053; 83036; 85025; 85610; 85651; 86140; 93005

== ENCOUNTER → 2018-12-29 13:36 | Outpatient (CLI) | payer OTHER, BC, SELFPAY ==
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
== END ==
PROVIDERS: PCP Internal Medicine; Visit Provider Internal Medicine
DX: M79.641 Pain in right hand (principal); V89.2XXA Person injured in unspecified motor-vehicle accident, traffic, initial encounter
CPT/HCPCS: 73130

== ENCOUNTER → 2019-01-07 11:28 | Outpatient (CLI) | payer BC, SELFPAY ==
--- NOTE | 2019-01-07 11:33 | XR_ITS ---
XR foot wt bearing RT 3V HISTORY: ITS.REASON: pain ORDERING PHYSICIAN: Dione Castro DPM PATIENT AGE: 48 years COMPARISON: 11/01/2018 FINDINGS: Overall no change in the extensive foot surgery as previously described with multiple screws extending from the posterior calcaneus to the base of the third metatarsal and from the posterior calcaneus into the talus with the bone plate over the medial aspect of the talus, navicular, medial cuneiform and proximal aspect of the first metatarsal along with a long screw within the first metatarsal into the medial cuneiform and navicular region. No acute fracture or dislocation. Flexion deformity involves all toes.. The distal aspect of the long screw within the first metatarsal does project into the first metatarsophalangeal joint not significantly changed IMPRESSION: Overall no change status post extensive foot surgery with hardware in place with good alignment
--- NOTE | 2019-01-07 11:33 | XR_ITS ---
XR foot wt bearing LT 3V HISTORY: ITS.REASON: pain ORDERING PHYSICIAN: Dione Castro DPM PATIENT AGE: 48 years COMPARISON: None FINDINGS: EXAM is obtained through a cast. There has been overall no significant change. There is flexion deformity involving all the toes with lateral angulation of the distal phalanx of the great toe. There is severe pes planus with superior displacement of the navicular on the talus. there is approximately 14 mm superior displacement of the talonavicular. The talus is tilted inferiorly. Osteoarthritic changes are present at the talonavicular joint. Osteoarthritic changes are present at the calcaneocuboid joint and the talonavicular joint. IMPRESSION: Severe pes planus with rocker-bottom foot overall not significantly changed Overlying cast in place. Hammertoe deformity
--- NOTE | 2019-01-07 11:33 | XR_ITS ---
XR ankle wt bearing RT min 3V HISTORY: ITS.REASON: pain ORDERING PHYSICIAN: Dione Castro DPM PATIENT AGE: 48 years Comparison: 07/08/2018 FINDINGS: There has been extensive foot surgery as described in the foot report. Lucencies are noted in the distal tibia from previous external fixator. There are slight decrease in the ankle joint space laterally on the AP weightbearing view.. There is some calcific debris anterior to the talus. IMPRESSION: Minimal osteoarthritic changes of the right ankle
--- NOTE | 2019-01-07 11:33 | XR_ITS ---
XR ankle wt bearing LT min 3V HISTORY: ITS.REASON: pain ORDERING PHYSICIAN: Dione Castro DPM PATIENT AGE: 48 years Comparison: None FINDINGS: There is an overlying cast in place. Extensive foot abnormality is are described in the report with rocker-bottom foot and severe pes planus. The ankle joint has an unremarkable appearance. IMPRESSION: Negative left ankle
[2019-01-07 12:56] LABS: Basophils # 0.1 K/mm3 (0-0.2); Basophils % 0.5 % (0.1-2.0); Eosinophils # 0.3 K/mm3 (0.0-0.4); Eosinophils % 2.7 % (0.1-12.0); Hematocrit 40.4 % (37.0-47.0); Hemoglobin 12.2 g/dL (12.2-16.2); Lymphocytes # 2.9 K/mm3 (0.7-4.5); Lymphocytes % 24.6 % (10-50); Mean Corpuscular HGB Conc 30.1 g/dL (31.8-35.4); Mean Corpuscular Hemoglobin 25.6 pg (27.0-31.2); Mean Corpuscular Volume 84.8 fl (81-99); Mean Platelet Volume 8.8 fl (7.4-10.4); Monocytes # 0.5 K/mm3 (0.1-1.0); Monocytes % 4.3 % (1.7-9.3); Neutrophils % 67.9 % (37.0-80.0); Platelet Count 326 K/mm3 (142-424); Red Blood Count 4.76 M/mm3 (4.20-5.40); Red Cell Distribution Width 15.6 % (11.5-17.5); White Blood Count 11.8 K/mm3 (4.8-10.8)
[2019-01-07 13:25] LABS: Albumin Level 3.2 gm/dL (3.4-5.0); Chloride 105 mmol/L (98-107); Potassium 4.8 mmoL/L (3.5-5.1)
[2019-01-07 13:49] LABS: Erythrocyte Sedimentation Rate > 120 mm/hr (0-20)
[2019-01-07 13:58] LABS: Alanine Aminotransferase 21 U/L (12-78); Albumin/Globulin Ratio 0.8 (1.1-1.8); Alkaline Phosphatase 106 U/L (46-116); Anion Gap 12.8 mEq/L (5-15); Aspartate Amino Transferase 11 U/L (15-37); Bilirubin,Total 0.4 mg/dL (0.2-1.0); Blood Urea Nitrogen 19 mg/dL (7-18); C-Reactive Protein 2.2 mg/L (0.0-0.9); Calcium 8.8 mg/dL (8.5-10.1); Carbon Dioxide 26 mmol/L (21.0-32.0); Creatinine,Serum 1.06 mg/dL (0.55-1.02); Estimated Glomerular Filt Rate 55 ml/min (>60); GFR (African American) 66 ML/MIN (>60); Glucose 154 mg/dL (74-106); Sodium 139 mmol/L (136-145); Total Protein,Serum 7.2 gm/dL (6.4-8.2)
== END ==
PROVIDERS: PCP Internal Medicine; Visit Provider Podiatrist
DX: E11.610 Type 2 diabetes mellitus with diabetic neuropathic arthropathy (principal); M19.072 Primary osteoarthritis, left ankle and foot
CPT/HCPCS: 36415; 73610; 73630; 80053; 85025; 85651; 86140

== ENCOUNTER 2019-02-02 06:55 | Observation (INO) ==
[2019-02-02 07:20] LABS: Microscopic, Urine URINE MICROSCOPIC (MICROSCOPIC)
[2019-02-02 07:22] LABS: Appearance,Urine CLOUDY (Clear); Bilirubin,Urine Negative (Negative); Blood, Urine TRACE-L (Negative); Color,Urine YELLOW (Yellow); Glucose,Urine (UA) Negative (Negative); Ketones,Urine Negative (Negative); Leukocyte Esterase,Urine 3+ (Negative); Protein,Urine Negative (Negative); Specific Gravity, Urine 1.015 (1.005-1.030); Urobilinogen,Urine 0.2 EU/dl (0.2)
[2019-02-02 07:33] LABS: Bacteria,Urine 2+ /lpf; WBC,Urine 50-100 #/hpf (0-3)
[2019-02-02 07:35] LABS: Basophils # 0.1 K/mm3 (0-0.2); Basophils % 0.4 % (0.1-2.0); Eosinophils # 0.3 K/mm3 (0.0-0.4); Eosinophils % 2.9 % (0.1-12.0); Hematocrit 41.5 % (37.0-47.0); Hemoglobin 13.4 g/dL (12.2-16.2); Lymphocytes # 3.9 K/mm3 (0.7-4.5); Lymphocytes % 35.1 % (10-50); Mean Corpuscular HGB Conc 32.4 g/dL (31.8-35.4); Mean Corpuscular Hemoglobin 25.9 pg (27.0-31.2); Mean Corpuscular Volume 79.9 fl (81-99); Mean Platelet Volume 8.1 fl (7.4-10.4); Monocytes # 0.7 K/mm3 (0.1-1.0); Monocytes % 5.8 % (1.7-9.3); Neutrophils # 6.2 K/mm3 (1.8-7.8); Neutrophils % 55.7 % (37.0-80.0); Platelet Count 349 K/mm3 (142-424); Red Blood Count 5.19 M/mm3 (4.20-5.40); Red Cell Distribution Width 15.1 % (11.5-17.5); White Blood Count 11.1 K/mm3 (4.8-10.8)
[2019-02-02 07:40] LABS: INR 0.98 (0.9-1.1); Prothrombin Time 10.1 seconds (9.4-11.8)
[2019-02-02 07:51] LABS: Albumin Level 3.3 gm/dL (3.4-5.0); Albumin/Globulin Ratio 0.7 (1.1-1.8); Anion Gap 14.9 mEq/L (5-15); Bilirubin,Total 0.4 mg/dL (0.2-1.0); C-Reactive Protein 1.1 mg/L (0.0-0.9); Calcium 9.5 mg/dL (8.5-10.1); Globulin 4.9 gm/dl (1.3-3.2); Potassium 3.9 mmoL/L (3.5-5.1); Total Protein,Serum 8.2 gm/dL (6.4-8.2)
[2019-02-02 08:31] LABS: Erythrocyte Sedimentation Rate 71 mm/hr (0-20)
--- NOTE | 2019-02-02 08:33 | History & Physical Report ---
*Admission Date: 02/02/19 *Chief complaint: Left Charcot, DM *History of present illness: Ms. Colon is a 48 DM female who presents for admission s/p left Charcot reconstruction. Patient will be admitted for post op pain control and also for medical mgmt by Dr. Odonnell (Dr. Lynch) for DM/insulin, HTN. Patient had right Charcot reconstruction on 04/14/18: which included: SIGRID, synovectomy, Charcot reconstruction, triple arthrodesis, medial column arthrodesis, application of external fixation device. She was admitted for PT session and pain control. On 01/12/19, she had a right foot skin shave, punch, bone biospies to rule out bone infection prior to left foot surgery. All cultures were negative for bone infection. [facility] History I have reviewed the patient's past medical history: Yes 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: Reports:: Anxiety, Coronary Artery Disease, Diabetes Mellitus Type 2, Hypertension, MRSA, Myocardial Infarction Denies:: Asthma, Cancer, Chronic Obstructive Pulmonary Disease (COPD), Diabetes Mellitus Type 1, Hyperlipidemia, Internal Pacemaker, Seizures *Have you ever received a pneumonia vaccine?: No *Have you received a flu vaccine this season?: Yes Other 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: Reports: Arthritis, Fibromyalgia, Other. Denies: Blood Transfusion Reaction Laterality Cases: Bilateral: Arthroscopy Knee, Arthroscopy Shoulder Other Surgeries: Yes: No Previous Surgery, Appendectomy, Cardiac Catheterization, Cholecystectomy, Hysterectomy-Total, Other. No: Pacemaker Amputation: No Fractures: No - *Social History Smoking Status: Never smoker # Packs/Day (cigarettes): 0 #Yrs smoked (if former smoker): 25 Alcohol Intake: never Alcohol Intake Frequency:: other *Occupational Status:: unemployed Housing: house Household Members: family *Travel in the last 8 weeks: None - Psychiatric History Expresses thoughts of harming self/others: None Suicide Plan Description: No Plan Pschychiatric History:: Reports:: Anxiety Family Hx:: Cancer, Hypertension Review of Systems - Review of Systems Review of systems:: pertinent systems reviewed and negative unless documented below - Constitutional Denies chills - Eyes Denies blind spots - *Cardiovascular Denies chest pain, Denies shortness of breath - *Respiratory Denies shortness of breath - *Gastrointestinal Denies abdominal pain - *Genitourinary Denies abnormal periods - *Musculoskeletal Reports back pain, Reports deformity, Reports joint swelling, Reports tingling - Integumentary/Breasts Reports lesions - *Neurologic Reports tingling/numbness/burning sensations - Psychiatric Reports depression - Allergic/Immunologic Reports GI upset with certain foods Meds Home Medications Medication Instructions Recorded Confirmed Type blood sugar diagnostic strips See Dose Instructions .ROUTE 12/28/17 02/02/19 History .MEDSUPPLY 30 Days #100 each carvedilol 6.25 mg tablet 6.25 mg PO BID 30 Days #60 12/28/17 02/01/19 History duloxetine 60 mg capsule,delayed 60 mg PO BID 30 Days #60 12/28/17 02/02/19 History release glipizide 5 mg tablet 5 mg PO DAILY 30 Days #120 12/28/17 02/02/19 History isosorbide mononitrate ER 60 mg 60 mg PO DAILY 30 Days #30 12/28/17 02/02/19 History tablet,extended release 24 hr liraglutide 0.6 mg/0.1 mL (18 mg/3 1.2 mg SUB-Q DAILY 30 Days #9 12/28/17 02/02/19 History mL) subcutaneous pen injector pen needle, diabetic 32 gauge x See Dose Instructions .ROUTE 12/28/17 02/02/19 History 1/4" .MEDSUPPLY 25 Days #100 each pregabalin 225 mg capsule 225 mg PO BID 30 Days #60 12/28/17 02/02/19 History ramipril 10 mg capsule 10 mg PO DAILY 30 Days #30 12/28/17 02/01/19 History trazodone 100 mg tablet 100 mg PO HS 30 Days #30 12/28/17 02/02/19 History atorvastatin 40 mg tablet 40 mg PO HS 30 Days #30 03/01/18 02/02/19 History lorazepam 1 mg tablet 1 mg PO Q8HP PRN 10 Days #30 03/01/18 02/02/19 History Cholecalciferol (Vitamin D3) 50,000 unit PO WEEKLY 04/15/18 02/02/19 History [Vitamin D3 50,000 unit Cap] Hydrocodone/Acetaminophen [Lortab 2 tab PO Q4HP PRN #40 tab 04/15/18 02/02/19 Rx 10/325mg tablet] docusate sodium 100 mg capsule 100 mg PO DAILY #20 cap 05/05/18 02/02/19 Rx Ergocalciferol (Vitamin D2) 50,000 unit PO WEEKLY 06/08/18 02/02/19 History [Drisdol 50,000 units (1.25mg) capsule] Insulin Glargine,Hum.rec.anlog 70 units SQ DAILY 06/08/18 02/02/19 History [Insulin Glargine 100 Units/mL 3mL flexpen] tramadol 50 mg tablet 50 pow PO QID 30 Days #120 06/23/18 02/02/19 History enoxaparin 40 mg/0.4 mL 40 mg SQ QDAY 20 Days #8 ml 11/02/18 02/02/19 Rx subcutaneous syringe ibuprofen 800 mg tablet 800 mg PO BID #60 tab 11/02/18 02/02/19 Rx ondansetron 4 mg disintegrating 4 mg PO Q6HP PRN #30 tab 11/02/18 02/02/19 Rx tablet Allergies Allergy/AdvReac Type Severity Reaction Status Date / Time amoxicillin [AMOXICILLIN] Allergy Unknown Unknown Verified 01/26/19 11:08 allergy reaction codeine [CODEINE] AdvReac Mild STOMACH Verified 01/26/19 11:08 CRAMPS morphine [MORPHINE] AdvReac Mild STOMACH Verified 01/26/19 11:08 CRAMPS oxycodone [From Percocet] AdvReac Mild STOMACH Verified 01/26/19 11:08 CRAMPS Exam Vital signs and Labs for Last 24 Hours: Temp Pulse Resp BP Pulse Ox 97.2 F L 104 H 18 144/84 H 96 02/02/19 07:24 02/02/19 07:24 02/02/19 07:24 02/02/19 07:24 02/02/19 07:24 Laboratory Results - last 24 hr 02/02/19 07:00: Urine Color Yellow, Urine Appearance Cloudy, Urine pH 6.0, Ur Specific [place] 1.015, Urine Protein Negative, Urine Glucose (UA) Negative, Urine Ketones Negative, Urine Blood Trace-l, Urine Nitrate Negative, Urine Bilirubin Negative, Urine Urobilinogen 0.2, Ur Leukocyte Esterase 3+ A, Urine WBC 50-100, Ur Squamous Epith Cells 5-10, Ur Transition Epith Cell 3-5, Urine Bacteria 2+ 02/02/19 07:30: PT 10.1, INR 0.98 02/02/19 07:30: WBC 11.1 H, RBC 5.19, Hgb 13.4, Hct 41.5, MCV 79.9 L, MCH 25.9 L , MCHC 32.4, RDW 15.1, Plt Count 349, MPV 8.1, Neut % (Auto) 55.7, Lymph % (Auto) 35.1, [place] % (Auto) 5.8, Eos % (Auto) 2.9, Baso % (Auto) 0.4, Neut # (Auto) 6.2, Lymph # (Auto) 3.9, [place] # (Auto) 0.7, Eos # (Auto) 0.3, Baso # (Auto) 0.1, ESR 71 H 02/02/19 07:30: Sodium 139, Potassium 3.9, Chloride 101, Carbon Dioxide 27, Anion Gap 14.9, BUN 14, Creatinine 0.88, Estimated Creat Clear 72, Estimated GFR 68, Est GFR ( Amer) 82, Glucose 157 H, Calcium 9.5, Total Bilirubin 0.4, AST 14 L, ALT 18, Alkaline Phosphatase 116, C-Reactive Protein 1.1 H, Total Protein 8.2, Albumin 3.3 L, Globulin 4.9 H, Albumin/Globulin Ratio 0.7 L I & O for Last 24 hours: Intake & Output 01/30/19 01/31/19 02/01/19 02/02/19 11:59 11:59 11:59 11:59 Weight 294 lb - *Routine HEENT Exam Head: Present: normocephalic Eye: Present: PERRL ENT: Present: mucous membranes dry - *Routine Neck Exam Present: supple - *Routine Respiratory Exam Present: CTA bilaterally - *Routine Cardiovascular Exam Present: RRR - *Routine Abdominal Exam Present: soft - *Routine Rectal Exam Patient deferred: visual exam - *Routine Exam Patient deferred: external exam - *Routine Extremities Exam Present: edema, pulses intact, tenderness - *Routine Skin Exam Present: dry - *Routine Neurological Exam Present: alert, moving all extremities - Detailed Lower Extremity Exam Comments: Left LE ex fix and dressing clean dry and intact. Right foot dressing intact. CFT at baseline. Negative calf/thigh pain noted b/l. Motor function and sensation decreased to LLE, secondary to nerve block Results - Labs Result Diagrams: 02/02/19 07:30 02/02/19 07:30 Labs: Abnormal lab results 02/02/19 02/02/19 02/02/19 Range/Units 07:00 07:30 07:30 WBC 11.1 H (4.8-10.8) K/mm3 MCV 79.9 L (81-99) fl MCH 25.9 L (27.0-31.2) pg ESR 71 H (0-20) mm/hr Glucose 157 H (74-106) mg/dL AST 14 L (15-37) U/L C-Reactive Protein 1.1 H (0.0-0.9) mg/L Albumin 3.3 L (3.4-5.0) gm/dL Globulin 4.9 H (1.3-3.2) gm/dl Albumin/Globulin Ratio 0.7 L (1.1-1.8) Ur Leukocyte Esterase 3+ A (Negative) H & H 02/02/19 Range/Units 07:30 Hgb 13.4 (12.2-16.2) g/dL Hct 41.5 (37.0-47.0) % Coagulation 02/02/19 Range/Units 07:30 INR 0.98 (0.9-1.1) All other labs normal. - Diagnostic results Ankle/Foot x-ray: pending Assessment and Plan (1) Charcot's joint of left foot Current visit: Yes Status: Acute Category: Medical Code(s): M14.672 - Charcot's joint, left ankle and foot (2) Type 2 diabetes mellitus with Charcot's joint of left foot Current visit: Yes Status: Acute Category: Medical Code(s): E11.610 - Type 2 diabetes mellitus with diabetic neuropathic arthropathy (3) Obesity, Class III, BMI 40-49.9 (morbid obesity) Current visit: No Status: Acute Category: Medical Code(s): E66.01 - Morbid (severe) obesity due to excess calories (4) Vitamin D deficiency Current visit: No Status: Acute Category: Medical Code(s): E55.9 - Vitamin D deficiency, unspecified - Assessment and plan all Dx Assessment and Plan for all problems:: S/p left Charcot reconstruction 02/02/19 DOS Discharge/Plan: Patient will be admitted for 23 hour observation for pain control and medical mgmt Patient is to maintain dressing clean dry and intact. Ice behind the left knee and left lower extremity with DME assistance (walker, wheelchair). Pain: [place] 10/325 1-2 tablets q4h prn Obtain post op films, left calc, ankle and foot, 3 views. Consult: Dr. Odonnell for medical mgmt of insulin, IV fluids and blood pressure. PT in the am for gait training and transitions. Plan to d/c to home tomorrow after PT session. Needs hospital bed.
--- NOTE | 2019-02-02 08:34 | Operative Note ---
Date of procedure: 02/02/19 Pre-op Diagnosis:: 1. Left Diabetic Charcot Neuroarthropathy 2. Left Gastroc-soleus equinus 3. Left foot synovitis 4. Left foot osteoarthritis 5. B/l hammertoes (flexion contracture) Post-op Diagnosis:: Same + 6. Left peroneal tendon tear Procedure performed:: 1. Left tendon achilles lengthening 2. Left foot synovectomy 3. Left Charcot reconstruction 4. Left triple arthodesis 5. Left medial column arthrodesis 6. Left peroneal tendon debridement 7. Left application of external fixation device 8. Left flexor tenotomies, digits 1-5 9. Right flexor tenotomies, digits 1-5 Surgeon:: Dione Castro DPM CUSTOMER CARE AGENT:: Pravin Rosario Anesthesia: GETA, regional (left popliteal block) Estimated blood loss (mL): 50 Clinical Note:: B/L Charcot Neuroarthropathy: I had a long discussion with the patient about the etiology and treatment of Charcot foot. I explained how her diabetes and peripheral neuropathy have contributed to this. We also had a long discussion about her hemoglobin A1c and sugar control. Her previous A1c was 8.0. Patient does not currently smoke. The patient and I had a long discussion about her treatment course. We discussed the conservative versus surgical treatment options. She has been NWB for both the right and left LE. She has the ZUNI boot for LLE. The patient admits that she cannot be compliant with a NWB treatment plan and that she would put weight on it. We did discuss surgical intervention with the application of an external fixator. My recommendation would be strict nonweightbearing x 2-4 weeks post op and possible PWB with ex fix once sutures removed. She has agreed to be nonweightbearing for several weeks and with the external fixator. She understands that the nonweightbearing period would be shorter with the ex fix because she can weight-bear in the frame eventually being radiographic findings. I also explained that during the nonweightbearing. She needs to continue the [place] boot on the left because there will be an increased risk of Charcot breakdown because there will be an increased stress load on the left lower extremity. After a long discussion with the patient in regards to the conservative versus surgical treatment for the Charcot deformity, the patient has elected to proceed with surgery because they have have admitted limited compliance with conservative treatment and continue to have pain and worsening symptoms affecting daily activities. The patient has been instructed on the planned procedure, all risk versus benefits of the procedure discussed. These include but are not limited to: bleeding, infection, nerve and blood vessel damage, need for further surgery, delay in healing of soft tissue or bone, failure of bones to heal, non-union, mal-union, failure of the implant, broken pins, over lengthening of the tendon, prolonged pain and recovery, prolonged swelling, CPRS/RSD, DVT, anesthetic complications, loss of limb and even . No guarantees were given. All questions fully answered. The patient verbalized understanding and agreed to proceed with surgery. Written consent was obtained. Cardiac clearance in chart per Dr. Manzano from 02/21/18. Necessary labs and pre-op testing ordered: CBC, CMP, CXR, vitamin D, Ha1c, ESR, CRP. Patient was granted medical clearance per Dr. Lynch. Plan to keep patient for 23 hours observation for pain control and monitoring. Discussed with Dr. Lynch, he recommended Dr. Odonnell consult. Immediate post op pain mgmt will be done by me per Dr. Jovani Sims at [facility]. Plan for surgery: right foot application of external fixation device, tendo Achilles lengthening, Charcot reconstruction (arthrodesis, possible midfoot osteotomy), repair of tendons and other associated Charcot procedures as needed Operative findings:: Contracted Achilles tendon. Severe scarring and fibrosis of the midfoot. Synovitis noted at the NC, TN and ST joints. Midfoot Charcot collapse. Dislocation of the TNJ. Severe degenerative changes of the midfoot. Soft crumbly bone, likely secondary to vitamin D deficiency and Charcot. The navicular was fractured and fragmented. The peroneal tendon had longitudinal tears and synovitis. Operative note:: On this date and time patient was deemed an appropriate surgical candidate. Anesthesia performed a pre-op regional popliteal nerve block. With informed consent signed, the patient was taken to the operating theater. The patient was positioned supine. General anesthesia was induced. Tourniquet was applied to the right thigh at 250 mmHg. Left Tendon Achilles Lengthening: Attention was directed to the posterior leg. Three stab incisions where made overlying the Achilles. Utilizing the three holes, percutaneous davida-section of the Achilles was performed with the foot maximally dorsiflexed. Release of the Achilles contracture was noted. The incisions were flushed with copious amounts of sterile saline and the wound was closed with Nylon. Left Foot Charcot reconstruction: The left lower extremity was prepped and draped in a normal sterile fashion. Intraoperative fluoroscopy was utilized to take x-rays of both the foot and ankle. The Lisfranc was noted to be consolidated. There were degenerative changes noted to the midfoot. Severe arch collapse. Joints were marked out under intraoperative fluoroscopy. The limb was exsanguinated and the tourniquet was inflated. Attention was directed to the medial foot where a dorsal linear incision was made starting from the first metatarsal cuneiform joint and extending proximal to the talonavicular joint. Dissection was carried through skin into subcutaneous tissue with care taken to maintain surgical hemostasis and safely retract neurovascular structures. There was fibrosis and scarring noted. The medial marginal vein was safely retracted throughout the procedure. The tibialis anterior tendon was identified and retracted. Dissection was then carried down to the level of the bone. Left Foot Synovectomy: It should be noted that during the dissection and opening up of the NC, TN and ST joints there was brown fluid noted from the joints. It appeared to look like dark synovitis. A piece of thick fibrotic tissue sent as a specimen. Left Triple and Medial Column Arthrodesis: The 1st metararsal cuneiform, navicular cunieform, talonavicular joints were all visualized on the medial foot. Once the soft tissue was freed from each joint, distraction was used. There was cartilage erosion and dorsal spurring noted. Navicular fracture fragments were removed. Utilizing an osteotome, stephy the cartilage was removed from the joints. The wound was flushed with copious amounts of normal sterile saline. 2.0mm drill bit was used to fentrasate the subchondral bone plate down to the level of healthy bleeding bone. Attention was directed to the lateral foot. A curvilinear incision was mapped out extending proximal and posterior to the fibula along the course of the peroneal tendons and dorsal extending over the fourth fifth met base cuboid junction. Dissection was carried through skin to subcutaneous tissue with care taken to maintain surgical hemostasis and safely retract neurovascular structures. Sural nerve was identified and retracted inferiorly throughout the procedure. Dissection was carried through deep fascia to the level of the bone. There was dorsal spurring and osteophytes noted along the anterior process of calcaneus to the CCJ. The talus had severe erosions. Arthritic degenerative changes noted throughout the CC, subtalar and TN joints. The peroneal sheath was full of synovitis, which was debrided. The STJ was distracted and an osteotome and curette was then used to resect the remaining cartilage down to the level of good healthy bleeding bone. Attention was directed to the CC joint where power instrumentation was used to resect the calcaneal cuboid joint. Curette and osteotome was then used to remove the remaining cartilage down to the level of good healthy bleeding bone. Once all joints have been prepped to the level good healthy bleeding bone the wound was flushed with copious amounts of normal s terile saline. Intraoperative fluoroscopy was utilized to check position. Temporary fixation was inserted to check reduction. Intraoperative fluoroscopy was utilized and reduction was deemed to be adequate. At this point temporary fixation was removed. A 2-0 drill bit was then used to further fenestrate the joints down to the level good healthy bleeding bone. The subtalar joint was reduced and a partially threaded cannulated 7.0 mm beam was inserted from posterior to anterior compressing the STJ. Calcaneal axial, lateral, ankle views were obtained and deemed to be appropriate in terms of reduction and fixation. Attention was then directed to the TNJ where the foot was reduced into a plantigrade position. A medial column fusion Charcot plate was applied and checked under intraoperative fluoroscopy. Once adequate position was obtained locking screws were inserted from the first metatarsal through the plate proximal medial into the talus. The quality of the patient's bone was very poo r. There was significant fragmentation and crumbling noted to the bones. When the temporary fixation was placed into the plate it was easily removed by hand due to the quality of the bone. Because of the poor quality of bone it was decided to insert extra fixation. At this point attention was directed to the 1st metatarsal head which did have some erosion of the cartilage noted. A McGlamry elevator was passed underneath the first metatarsal head to free plantar adhesions. Increased range of motion was noted to the first MPJ. Next, the medial column and TMTJs were reduced and temporarily pinned. Reduction checked on intraoperative fluoroscopy. Augment was applied to all fusion sites. Next, a guidewire for the 7.0 mm ZapMe fusion beam was inserted under intra-op fluoro. This was checked in all 3 planes. The K wire was in good position extending down the medullary canal of the first metatarsal into the cuneiform into the navicular and then the talus. It should be noted that there was not significant talar purchase. A 7.0 cannulated fusion beam was then inserted in standard technique over the guidewire. Compression was noted of the medial column. Good compression noted at the first metatarsal cuneiform and navicular cuneiform joints. Position of the medial beam was noted to be adequate. The wound was flushed with copious amounts of normal sterile saline. The calcaneal cuboid joint was then reduced and a 4.0 cannulated screw x2 was then inserted. Adequate compression was noted. Intraoperative fluoroscopy was utilized to check the position. Lateral columm (3rd met-cuboid stabilization): Attention was directed to the lateral foot, where intra-op fluoroscopy was used to map out the 3rd metatarsal head on both the AP, MO and lateral views. A guide wire for a 5.0 mm [employer] fusion bolt was inserted under fluoro from the calcaneus to the 3rd met base. Position was checked in all 3 planes. The K- wire was in good position. A 7.0 mm cannulated beam was inserted from the calcaneus ending into the third metatarsal base. Upon inserting the beam, the plantar metatarsal cortex fractured. The beam was exiting plantarly, so it was removed. The fracture was intact not displaced. Intra operative fluoroscopy was utilized to check the position of the beam. The wound was flushed with copious amounts of saline. 2-0 Vicryl was used to repair deep tissue. At the point final position was checked under intra-op fluoro and deemed to be appropriate with stable fixation. There was stability noted across the Lisfranc region. Fixation was in place with reduction of sagittal plane deformity. All fixation was deemed to be in adequate alignment. Hardware did not extend into the ankle joint. The tourniquet was deflated at 120 minutes. Immediate hyperemic response was noted to the digits upon deflation of the tourniquet. The tourniquet was left deflated for over 30 minutes. The tourniquet was reinflated one more time during the case and left up for 120 minutes. Attention was directed to the medial column then lateral column where the incisions were closed. 2-0 Vicryl was used to reapproximate the TA tendon in an over and over fashion. Amniotic graft was wrapped around the tendon. 2-0 Vicryl was also used to reapproximate the deep fascia as well as the deep subcutaneous tissue in interrupted fashion. 3-0 Vicryl was then used to reapproximate subcutaneous tissue in an interrupted fashion. 3-0 Nylon was used to close the skin incisions in a horizontal mattress and simple suture fashion. The wounds were cleansed. Xeroform, dry sterile dressing was then applied to the leg. Left foot application of External fixation device: A ZapMe [facility] external fixation device was utilized. The frame had been prebuilt with a footplate, two full leg rings and a 5/8th ring. Leg holders were positioned and the leg placed in the frame. Attention was directed to the lateral calcaneus where an olive wire was positioned from the inferior lateral calcaneus and driven to the medial inferior calcaneus. The calcaneus felt soft in texture. Next a second olive wire was driven from the medial calcaneus into the lateral calcaneus. Attention was directed proximally to the proximal most ring where a wire was driven from the anterior face of the tibia lateral to medial and a second wire driven from medial to lateral. The wires were tensioned and some stability was noted to the frame. Next 2 more olive wires were used this time on the distal tibia from medial to lateral lateral to medial in an "X" pattern. The leg wires were tensioned to 125. Good stability of the frame was noted. Next an olive wire was positioned from the medial first metatarsal capturing the second metatarsal and exiting dorsal lateral on the midfoot. Similarly another olive wire was placed from the fifth metatarsal angle proximal medial capturing the fifth fourth metatarsal prior to exiting. The distal foot olive wires were then tensioned to 90. Adequate position of the foot within the frame was noted. The skin was not touching or rubbing against the frame in any plane. Intraoperative fluoroscopy was utilized to obtain x- rays which showed adequate position of foot within the frame. Wires were tightened. Xeroform applied around the pin sites and a dry sterile dressing was applied to the foot. The foot plate was attached. The patient was awoken from anesthesia and transferred to recovery with vital signs stable and neurovascular status intact. B/L Flexor Tenotomies, digits 1-5: The left foot procedure was done prior to application of the frame. The right foot flexor tenotomies were performed after the frame had been applied to the left foot. Betadine was used to clean the plantar aspect of the digits. Utilizing an 18-gauge needle, the needle was inserted into the plantar aspect of the PIPJ along the course of the flexor tendon. The needle was moved back and forth percutaneously releasing the flexor tendon. The digits were extended. No internal fixation utilized. There is some reduction in flexion contracture noted. Due to the patients body habitus (morbid obesity), this case took 2 hours longer than usual. The case was more tedious due to the excessive subcutaneous fat layers and fibrotic scar tissue. The case was also complicated by the bone quality which was soft and crumbly, it was difficult to hold reduction with the fixation. Materials: [facility] (Charcot external fixator) [place] wires x 8 (tibia/calc/midfoot) 7.0mm fusion beam partially threaded 4.0mm cannulated screw x [facility] + 5.0mm locking screws Augment injectable Amnio graft Discharge/Plan: Patient will be admitted for 23 hour observation for pain control and medical mgmt Patient is to maintain dressing clean dry and intact. Ice behind the left knee and left lower extremity with DME assistance (walker, wheelchair). Pain: [place] 10/325 1-2 tablets q4h prn Obtain post op films, left calc, ankle and foot, 3 views. Consult: Dr. Odonnell for medical mgmt of insulin, IV fluids and blood pressure. PT in the am for gait training and transitions. Plan to d/c to home tomorrow after PT session. Needs hospital bed. Tourniquet time (min): 240 (Dropped > 30 mins after 2 hrs, then re-inflated x 2 more hrs) Condition: stable Disposition: observation Specimens:: 1. Left medial foot Complications:: None
--- NOTE | 2019-02-02 16:27 | Progress Note ---
[facility] Anesthesia Checklist - Patient Identification Patient Identification: Arm Band - Structural Data Admitted From: Home Planned Operative Procedure/s: left foot charcot reconstruction Consent for Planned Operative Procedure(s) Verified: Yes Verified Documents: Surgical Consent, History and Physical - NPO Status Verified Time NPO: 00:00 - Additional verifications Anesthesia Reactions: No - Airway Assessment C-Spine Mobility Assessed: Yes (mp2) TMJ Mobility Assessed: Yes Dentition: Good Dentition - Neurological Assessment Level of Consciousness: Awake, Alert - Anesthesia Plan Anesthesia Risk discussed: Yes Anesthesia Plan: Verified ASA Class: III Anesthesia Type: General (with popliteal/saphenous block) [facility] History I have reviewed the patient's past medical history: Yes 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: Reports:: Anxiety, Coronary Artery Disease, Diabetes Mellitus Type 2, Hypertension, MRSA, Myocardial Infarction Denies:: Asthma, Cancer, Chronic Obstructive Pulmonary Disease (COPD), Diabetes Mellitus Type 1, Hyperlipidemia, Internal Pacemaker, Seizures *Have you ever received a pneumonia vaccine?: No *Have you received a flu vaccine this season?: Yes Other 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: Reports: Arthritis, Fibromyalgia, Other. Denies: Blood Transfusion Reaction Laterality Cases: Bilateral: Arthroscopy Knee, Arthroscopy Shoulder Other Surgeries: Yes: No Previous Surgery, Appendectomy, Cardiac Catheterization, Cholecystectomy, Hysterectomy-Total, Other. No: Pacemaker Amputation: No Fractures: No - *Social History Smoking Status: Never smoker # Packs/Day (cigarettes): 0 #Yrs smoked (if former smoker): 25 Alcohol Intake: never Alcohol Intake Frequency:: other *Occupational Status:: unemployed Housing: house Household Members: family *Travel in the last 8 weeks: None - Psychiatric History Expresses thoughts of harming self/others: None Suicide Plan Description: No Plan Pschychiatric History:: Reports:: Anxiety Family Hx:: Cancer, Hypertension
--- NOTE | 2019-02-02 16:28 | Progress Note ---
[facility] Anesthesia Record Part I Intake, IV Amount: 3,000 Estimated blood loss (mL): 50 Urine output (mL): 200 Blood Pressure: 101/60 SaO2: 95 Pulse Rate: 100 Respiratory Rate: 16 Temperature: 98 F Patient is:: Drowsy, Stable Stable to PACU at:: 16:15
--- NOTE | 2019-02-02 16:28 | Progress Note ---
[facility] Anesthesia Record Part II Discharge Time: 16:45 Destination: 2nd floor PACU nurse assessment reviewed?: Yes Patient Condition:: Good Anesthesia Complications:: None Swallowing reflex intact?: Yes Cyanosis?: No
--- NOTE | 2019-02-03 08:28 | Consult Report ---
*Admission Date: 02/02/19 *Chief complaint: Internal medicine consult *History of present illness: Patient had right Charcot reconstruction on 04/14/18: which included: SIGRID, synovectomy, Charcot reconstruction, triple arthrodesis, medial column arthrodesis, application of external fixation device. She was admitted for PT session and pain control. On 01/12/19, she had a right foot skin shave, punch, bone biospies to rule out bone infection prior to left foot surgery. All cultures were negative for bone infection. Patient admitted postoperatively for pain control and I am consulted for postoperative medical management. Patient had a fairly good night, feels good this morning. Blood pressure noted to be less than 100 systolic. Patient is eating and drinking well this morning. [facility] History I have reviewed the patient's past medical history: Yes 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: Reports:: Anxiety, Coronary Artery Disease, Diabetes Mellitus Type 2, Hypertension, MRSA, Myocardial Infarction Denies:: Asthma, Cancer, Chronic Obstructive Pulmonary Disease (COPD), Diabetes Mellitus Type 1, Hyperlipidemia, Internal Pacemaker, Seizures *Have you ever received a pneumonia vaccine?: Yes *Have you received a flu vaccine this season?: Yes Other 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: Reports: Arthritis, Fibromyalgia, Other. Denies: Blood Transfusion Reaction Laterality Cases: Bilateral: Arthroscopy Knee, Arthroscopy Shoulder Other Surgeries: Yes: No Previous Surgery, Appendectomy, Cardiac Catheterization, Cholecystectomy, Hysterectomy-Total, Other (external fixation rt foot 2018). No: Pacemaker Amputation: No Fractures: No - *Social History Educational Level: Completed College Smoking Status: Never smoker # Packs/Day (cigarettes): 0 #Yrs smoked (if former smoker): 25 Alcohol Intake: never Alcohol Intake Frequency:: other *Occupational Status:: unemployed Housing: house Household Members: family *Travel in the last 8 weeks: None - Psychiatric History Expresses thoughts of harming self/others: None Suicide Plan Description: No Plan Pschychiatric History:: Reports:: Anxiety Family Hx:: Cancer, Diabetes, Hypertension Review of Systems - Review of Systems Review of systems:: pertinent systems reviewed and negative unless documented below Cardiopulmonary status unremarkable. Review of systems otherwise negative except for pain in her foot but well controlled with current anesthesia - *Neurologic Reports tingling/numbness/burning sensations, Reports tingling Meds Home Medications Medication Instructions Recorded Confirmed Type carvedilol 6.25 mg tablet 6.25 mg PO BID 30 Days #60 12/28/17 02/01/19 History duloxetine 60 mg capsule,delayed 60 mg PO BID 30 Days #60 12/28/17 02/02/19 History release glipizide 5 mg tablet 5 mg PO DAILY 30 Days #120 12/28/17 02/02/19 History isosorbide mononitrate ER 60 mg 60 mg PO DAILY 30 Days #30 12/28/17 02/02/19 History tablet,extended release 24 hr liraglutide 0.6 mg/0.1 mL (18 mg/3 1.2 mg SQ DAILY 30 Days #9 12/28/17 02/03/19 History mL) subcutaneous pen injector pregabalin 225 mg capsule 225 mg PO BID 30 Days #60 12/28/17 02/02/19 History atorvastatin 40 mg tablet 40 mg PO HS 30 Days #30 03/01/18 02/02/19 History lorazepam 1 mg tablet 1 mg PO Q8HP PRN 10 Days #30 03/01/18 02/02/19 History Cholecalciferol (Vitamin D3) 50,000 unit PO WEEKLY 04/15/18 02/02/19 History [Vitamin D3 50,000 unit Cap] docusate sodium 100 mg capsule 100 mg PO DAILY #20 cap 05/05/18 02/02/19 Rx Ergocalciferol (Vitamin D2) 50,000 unit PO WEEKLY 06/08/18 02/02/19 History [Drisdol 50,000 units (1.25mg) capsule] Insulin Glargine,Hum.rec.anlog 70 units SQ DAILY 06/08/18 02/02/19 History [Insulin Glargine 100 Units/mL 3mL flexpen] tramadol 50 mg tablet 50 pow PO QID 30 Days #120 06/23/18 02/02/19 History ibuprofen 800 mg tablet 800 mg PO BID #60 tab 11/02/18 02/02/19 Rx Ramipril 10 mg PO DAILY 02/03/19 02/03/19 History Trazodone HCl 100 mg PO HS 02/03/19 02/03/19 History Allergies Allergy/AdvReac Type Severity Reaction Status Date / Time amoxicillin [AMOXICILLIN] Allergy Unknown Unknown Verified 01/26/19 11:08 allergy reaction codeine [CODEINE] AdvReac Mild STOMACH Verified 01/26/19 11:08 CRAMPS morphine [MORPHINE] AdvReac Mild STOMACH Verified 01/26/19 11:08 CRAMPS oxycodone [From Percocet] AdvReac Mild STOMACH Verified 01/26/19 11:08 CRAMPS Exam Vital signs and Labs for Last 24 Hours: Temp Pulse Resp BP Pulse Ox 99.3 F 108 H 18 126/74 93 L 02/03/19 07:58 02/03/19 07:58 02/03/19 07:58 02/03/19 07:58 02/03/19 07:58 Laboratory Results - last 24 hr 02/02/19 07:30: ESR 71 H 02/02/19 07:30: POC Glucose 150 H 02/02/19 08:58: Urine Color Yellow, Urine Appearance Clear, Urine pH 6.0, Ur S pecific [place] 1.025, Urine Protein Negative, Urine Glucose (UA) Negative, Urine Ketones Negative, Urine Blood Negative, Urine Nitrate Negative, Urine Bilirubin Negative, Urine Urobilinogen 0.2, Ur Leukocyte Esterase Negative, Urine RBC None, Urine WBC Occasional, Ur Squamous Epith Cells Occasional, Urine Bacteria Trace 02/02/19 13:44: POC Glucose 327 H* 02/02/19 14:11: POC Glucose 315 H* 02/02/19 14:39: POC Glucose 276 H 02/02/19 15:08: POC Glucose 260 H 02/02/19 15:49: POC Glucose 220 H 02/02/19 16:34: POC Glucose 214 H 02/03/19 05:58: POC Glucose 209 H I & O for Last 24 hours: Intake & Output 01/31/19 02/01/19 02/02/19 02/03/19 11:59 11:59 11:59 11:59 Intake Total 3929 / 3929 Output Total 1525 / 1525 Balance 2404 / 2404 Weight 294 lb 299 lb 9 oz Microbiology Reports for the Last 24 Hours: Microbiology 02/02/19 07:00 Urine,Clean Catch Urine Culture - Preliminary Narrative: Patient is pleasant, alert, oriented x3. Morbid obesity limits her exam findings and complicates her care. Anterior lung sierra are clear. Heart rate regular without murmurs. No JVD. Abdomen soft and nontender. Left foot in splint and bandage device. Right foot is absent a couple of toes surgically but this is her baseline. Shins are warm and well-perfused. Able to move extremities well. Internal Medicine - CN: Reslt - Labs CBC & Chem 7: 02/02/19 07:30 02/02/19 07:30 Labs: Urine 02/02/19 Range/Units 08:58 Urine Color Yellow (Yellow) Urine Appearance Clear (Clear) Urine pH 6.0 (5.0-8.5) Ur Specific [place] 1.025 (1.005-1.030) Urine Protein Negative (Negative) Urine Glucose (UA) Negative (Negative) Assessment and Plan (1) Charcot's joint of left foot Current visit: Yes Status: Acute Category: Medical Code(s): M14.672 - Charcot's joint, left ankle and foot (2) Type 2 diabetes mellitus with Charcot's joint of left foot Current visit: Yes Status: Acute Category: Medical Code(s): E11.610 - Type 2 diabetes mellitus with diabetic neuropathic arthropathy Recommend resuming home glucose medications this morning. Recommend proceeding with discharge if amenable from surgical service. (3) Obesity, Class III, BMI 40-49.9 (morbid obesity) Current visit: No Status: Acute Category: Medical Code(s): E66.01 - Morbid (severe) obesity due to excess calories (4) Vitamin D deficiency Current visit: No Status: Acute Category: Medical Code(s): E55.9 - Vitamin D deficiency, unspecified (5) Essential hypertension Current visit: Yes Status: Acute Category: Medical Code(s): I10 - Essential (primary) hypertension I recommended the patient resume carvedilol when she arrives at home and then resume ramipril when blood pressure is consistently over 110 systolic. She and her mother are aware of these instructions.
--- NOTE | 2019-02-03 09:15 | Discharge Summary ---
General - General Admission date:: 02/02/19 Discharge date: 02/03/19 HPI HPI: Ms. Colon is a 48-year-old female who was admitted 02/02/19 after left Charcot reconstruction. Overnight patient had complaints of nausea and sore dry eyes. Those symptoms are both improving this morning. She has otherwise had an uneventful postoperative course. Pain controlled. Hospital Course Hospital Course: 02/02/19 -02/03/19. Relatively uneventful postoperative course. Patient controlled with left popliteal, saphenous nerve block. Patient did report some discomfort with her eyes and nausea. Nausea controlled with medication and a moist cloth to the eyes help to relieve the symptoms. Objective Vital signs: Temp Pulse Resp BP Pulse Ox 99.3 F 108 H 18 126/74 93 L 02/03/19 07:58 02/03/19 07:58 02/03/19 07:58 02/03/19 07:58 02/03/19 07:58 - *Routine HEENT Exam Head: Present: normocephalic Eye: Present: periorbital swelling, periorbital tenderness ENT: Present: mucous membranes moist - *Routine Neck Exam Present: supple - *Routine Respiratory Exam Present: accessory muscle use. Absent: respiratory distress - *Routine Cardiovascular Exam Present: RRR - *Routine Abdominal Exam Present: soft - *Routine Rectal Exam Patient deferred: visual exam - *Routine Exam Patient deferred: external exam - *Routine Extremities Exam Present: edema, normal capillary refill - *Routine Skin Exam Present: intact - *Routine Neurological Exam Present: alert, moving all extremities - Detailed Lower Extremity Exam Comments: B/l foot dressing C/D/I. Left external fixation device with dressing clean dry and intact. Motor function and sensation decreased on the left secondary to nerve block. No calf or thigh pain noted bilaterally. CFT baseline. Results Labs on day of discharge: Labs from last 24 hours 02/03/19 02/02/19 02/02/19 05:58 16:34 15:49 POC Glucose 209 H 214 H 220 H Urine Color Urine Appearance Urine pH Ur Specific [place] Urine Protein Urine Glucose (UA) Urine Ketones Urine Blood Urine Nitrate Urine Bilirubin Urine Urobilinogen Ur Leukocyte Esterase Urine RBC Urine WBC Ur Squamous Epith Cells Urine Bacteria 02/02/19 02/02/19 02/02/19 15:08 14:39 14:11 POC Glucose 260 H 276 H 315 H* Urine Color Urine Appearance Urine pH Ur Specific [place] Urine Protein Urine Glucose (UA) Urine Ketones Urine Blood Urine Nitrate Urine Bilirubin Urine Urobilinogen Ur Leukocyte Esterase Urine RBC Urine WBC Ur Squamous Epith Cells Urine Bacteria 02/02/19 02/02/19 02/02/19 13:44 08:58 07:30 POC Glucose 327 H* 150 H Urine Color Yellow Urine Appearance Clear Urine pH 6.0 Ur Specific [place] 1.025 Urine Protein Negative Urine Glucose (UA) Negative Urine Ketones Negative Urine Blood Negative Urine Nitrate Negative Urine Bilirubin Negative Urine Urobilinogen 0.2 Ur Leukocyte Esterase Negative Urine RBC None Urine WBC Occasional Ur Squamous Epith Cells Occasional Urine Bacteria Trace Preliminary micro results at discharge 02/02/19 07:00 Urine Culture - Preliminary Urine,Clean Catch DS: Diagnosis - Discharge Diagnosis (1) Charcot's joint of left foot Status: Acute (2) Type 2 diabetes mellitus with Charcot's joint of left foot Status: Acute (3) Obesity, Class III, BMI 40-49.9 (morbid obesity) Status: Acute (4) Vitamin D deficiency Status: Acute (5) Essential hypertension Status: Acute Discharge Plan - Patient Discharge Instructions ACTIVITY: Limited activity DIET: advance to your usual diet Additional Instructions: NWB LLE Cryo cuff behind left knee Incentive spirometer Limit activity Maintain dressing C/D/I Patient Instructions: How to Take Care of Your Feet If You Have Diabetes, Diabetic Neuropathy - Follow up Plan Follow up with: Dione Castro DPM [Staff Physician] - Diego Lynch [Primary Care Provider] - Disposition: Home, Self-[facility] Medications: Home Medications Medication Instructions Recorded Confirmed Type carvedilol 6.25 mg tablet 6.25 mg PO BID 30 Days #60 12/28/17 02/01/19 History duloxetine 60 mg capsule,delayed 60 mg PO BID 30 Days #60 12/28/17 02/02/19 History release glipizide 5 mg tablet 10 mg PO BID 30 Days #120 12/28/17 02/03/19 History isosorbide mononitrate ER 60 mg 60 mg PO DAILY 30 Days #30 12/28/17 02/02/19 History tablet,extended release 24 hr liraglutide 0.6 mg/0.1 mL (18 mg/3 1.2 mg SQ DAILY 30 Days #9 12/28/17 02/03/19 History mL) subcutaneous pen injector pregabalin 225 mg capsule 225 mg PO BID 30 Days #60 12/28/17 02/02/19 History atorvastatin 40 mg tablet 40 mg PO HS 30 Days #30 03/01/18 02/02/19 History lorazepam 1 mg tablet 1 mg PO Q8HP PRN 10 Days #30 03/01/18 02/02/19 History Cholecalciferol (Vitamin D3) 50,000 unit PO WEEKLY 04/15/18 02/02/19 History [Vitamin D3 50,000 unit Cap] docusate sodium 100 mg capsule 100 mg PO DAILY #20 cap 05/05/18 02/02/19 Rx Ergocalciferol (Vitamin D2) 50,000 unit PO WEEKLY 06/08/18 02/02/19 History [Drisdol 50,000 units (1.25mg) capsule] Insulin Glargine,Hum.rec.anlog 70 units SQ HS 06/08/18 02/03/19 History [Insulin Glargine 100 Units/mL 3mL flexpen] tramadol 50 mg tablet 50 mg PO QID 30 Days #120 06/23/18 02/03/19 History ibuprofen 800 mg tablet 800 mg PO BID #60 tab 11/02/18 02/02/19 Rx Hydrocodone/Acetaminophen 1 each PO Q6H 02/03/19 02/03/19 History [Hydrocodone-Acetamin 10-325 mg] Ramipril 10 mg PO DAILY 02/03/19 02/03/19 History Trazodone HCl 50 - 100 mg PO HS 02/03/19 02/03/19 History Prescriptions/Medication Reconciliation: Continue liraglutide 0.6 mg/0.1 mL (18 mg/3 mL) subcutaneous pen injector 1.2 mg SQ DAILY 30 Days #9 duloxetine 60 mg capsule,delayed release 60 mg PO BID 30 Days #60 isosorbide mononitrate ER 60 mg tablet,extended release 24 hr 60 mg PO DAILY 30 Days #30 carvedilol 6.25 mg tablet 6.25 mg PO BID 30 Days #60 glipizide 5 mg tablet 10 mg PO BID 30 Days #120 lorazepam 1 mg tablet 1 mg PO Q8HP PRN 10 Days #30 PRN Reason: Anxiety ibuprofen 800 mg tablet 800 mg PO BID #60 tab pregabalin 225 mg capsule 225 mg PO BID 30 Days #60 atorvastatin 40 mg tablet 40 mg PO HS 30 Days #30 docusate sodium 100 mg capsule 100 mg PO DAILY #20 cap tramadol 50 mg tablet 50 mg PO QID 30 Days #120 Ramipril 10 mg PO DAILY Trazodone HCl 50 - 100 mg PO HS Hydrocodone/Acetaminophen [Hydrocodone-Acetamin 10-325 mg] 1 each PO Q6H Cholecalciferol (Vitamin D3) [Vitamin D3 50,000 unit Cap] 50,000 unit PO WEEKLY Insulin Glargine,Hum.rec.anlog [Insulin Glargine 100 Units/mL 3mL flexpen] 70 units SQ HS Ergocalciferol (Vitamin D2) [Drisdol 50,000 units (1.25mg) capsule] 50,000 unit PO WEEKLY - Additional Information Additional Information: S/p left Charcot reconstruction 02/02/19 POD #1 Discharge/Plan: Patient was admitted for 23 hour observation for pain control and medical mgmt Patient is to maintain dressing clean dry and intact. Ice behind the left knee and left lower extremity with DME assistance (walker, wheelchair). Pain: [place] 10/325 1-2 tablets q4h prn Consult: Dr. Odonnell for medical mgmt of insulin, IV fluids and blood pressure. F /u with regular PCP, Dr. Lynch (or Dr. Odonnell) for HTN mgmt outpatient PT session this am for gait training and transitions. Okay to d/c. Limit activity. NWB to LLE Plan to d/c to home today. Hopsital bed to be delivered to house today.
== END 2019-02-03 17:11 | disposition home or self-care (01) ==
LOC: OR 06:55 → 2ND 06:55
PROVIDERS: ADMIT Podiatrist; ATTEND Podiatrist
CPT/HCPCS: 73610; 73620; 73630; 73650; 76000; 80053; 81001; 82962; 85025; 85610; 85651; 86140; 87086; 96374; 97162; C1713; C1762; C1776; G0378; J2405; S0077

== ENCOUNTER → 2019-02-17 11:35 | Outpatient (CLI) | payer MEDICAID, SELFPAY ==
--- NOTE | 2019-02-17 11:37 | XR_ITS ---
XR foot wt bearing LT 3V, XR ankle wt bearing LT min 3V Ordering Physician: Dione Castro DPM Patient Age: 48 years: Female HISTORY: ITS.REASON: postop views TECHNIQUE: Left ankle 3 view simulated weight-bearing. Left foot 3 view weightbearing simulated COMPARISON :01/07/2019 left ankle & 02/02/2019 left ankle, & left foot ====== LEFT ANKLE 3 view LEFT FOOT 3 views The studies are reviewed and reported together Again, As on January 2019 study the bony structures are obscured by the external fixator. Complex Externalfixator along with fixation procedure involving foot and fusion subtalar joint..: Crossing wires transverse mid tibia, distal tibia providing proximal fixation point,. Distal fixation with crossing wires, passing through the metatarsals. There are 2 transversing wires here:. More proximal transverses through Proximal metatarsal region; and second wire transverses mid to distal metatarsal region. Ankle fusion hasbeen performed with a long screw from the posterior inferior calcaneus obliquely Through the subtalar joint into the posterior talus. talus. An additional very long threaded pin/screw has been placed from the distal aspect of first metatarsal head with contiguous see a subtle defect, it continues a length of the first metatarsal , continuing through the navicular and continues into the talus.. . 2 additional smaller fixation screws of smaller size are seen entering laterally beneath the cuboid and passing to the calcaneus moderate diffuse this portion of the joint.. These are partially obscured. A dorsomedial boneplate has been placed along the talus, navicular, medial cuneiform, and proximal aspect of the first metatarsal stabilized by multiple screws.. There appears to be satisfactory alignment with improvement in the severe pes planus. The ankle mortise appears intact with normal relationships. The dome of talus appears intact with the new recently placed screw seen just beneath the.. IMPRESSION: Left foot & ankle: Status post extensive foot and ankle surgery, with ankle and midfoot fusion as described above. .. Stable position of fixation elements. Stable overall appearance components, with no significant new findings.
== END ==
PROVIDERS: PCP Internal Medicine; Visit Provider Podiatrist
DX: Z98.890 Other specified postprocedural states (principal)
CPT/HCPCS: 73610; 73630

== ENCOUNTER → 2019-03-31 11:57 | Outpatient (CLI) | payer MEDICAID, SELFPAY ==
--- NOTE | 2019-03-31 12:02 | XR_ITS ---
XR foot wt bearing LT 3V, XR ankle wt bearing LT min 3V HISTORY: Follow-up surgery/fusion ITS.REASON: postop views ORDERING PHYSICIAN: Dione Castro DPM PATIENT AGE: 48 years COMPARISON: 02/17/2019 TECHNIQUE: AP lateral oblique views of the foot. AP lateral and oblique views of the ankle FINDINGS: The external fixator device remains in place obscuring much of the foot and ankle. Overall no change prior talocalcaneal, calcaneocuboid, navicular cuneiform and first metatarsal fusion with a long screw from the distal first metatarsal into the talus. IMPRESSION: No change status post foot fusion as described above with external fixator in place
== END ==
PROVIDERS: PCP Internal Medicine; Visit Provider Podiatrist
DX: Z98.890 Other specified postprocedural states (principal)
CPT/HCPCS: 73610; 73630

== ENCOUNTER 2019-04-08 06:04 | Day surgery (SDC) | payer MEDICAID, SELFPAY ==
[2019-04-07 11:58] VITALS: BMI 41.9
[2019-04-08] VITALS (12 sets, daily range): BP systolic 112–142; BP diastolic 66–82; PULSE 79–87; RESP 12–18; TEMP 36.3–43; O2SAT 92–99
[2019-04-08 06:34] LABS: POC Glucose,Bedside 139 (70-110)
[2019-04-08 06:42] LABS: Basophils # 0.1 K/mm3 (0-0.2); Basophils % 0.7 % (0.1-2.0); Eosinophils # 0.4 K/mm3 (0.0-0.4); Eosinophils % 4.8 % (0.1-12.0); Hematocrit 33.6 % (37.0-47.0); Hemoglobin 10.8 g/dL (12.2-16.2); Lymphocytes # 3.3 K/mm3 (0.7-4.5); Mean Corpuscular Hemoglobin 25.4 pg (27.0-31.2); Mean Corpuscular Volume 79.2 fl (81-99); Mean Platelet Volume 8.6 fl (7.4-10.4); Monocytes # 0.5 K/mm3 (0.1-1.0); Monocytes % 5.5 % (1.7-9.3); Neutrophils # 4.6 K/mm3 (1.8-7.8); Platelet Count 273 K/mm3 (142-424); Red Blood Count 4.24 M/mm3 (4.20-5.40); Red Cell Distribution Width 15.3 % (11.5-17.5); White Blood Count 8.8 K/mm3 (4.8-10.8)
[2019-04-08 06:53] LABS: Alanine Aminotransferase 20 U/L (12-78); Albumin Level 2.9 gm/dL (3.4-5.0); Albumin/Globulin Ratio 0.7 (1.1-1.8); Alkaline Phosphatase 98 U/L (46-116); Aspartate Amino Transferase 7 U/L (15-37); Bilirubin,Total 0.3 mg/dL (0.2-1.0); Blood Urea Nitrogen 19 mg/dL (7-18); Calcium 8.8 mg/dL (8.5-10.1); Carbon Dioxide 24 mmol/L (21.0-32.0); Chloride 105 mmol/L (98-107); Creatinine Clearance Estimated 72 mL/min (50-200); Creatinine,Serum 0.87 mg/dL (0.55-1.02); Estimated Glomerular Filt Rate 69 ml/min (>60); GFR (African American) 83 ML/MIN (>60); Glucose 142 mg/dL (74-106); Sodium 140 mmol/L (136-145); Total Protein,Serum 6.9 gm/dL (6.4-8.2)
--- NOTE | 2019-04-08 07:17 | [facility].OPNOTE ---
Date of procedure: 04/08/19 Pre-op Diagnosis:: 1. Status post foot surgery, 02/02/19: s/p left Charcot reconstruction, application of external fixator 2. Type 2 diabetes mellitus with Charcot's joint of left foot 3. Right hallux malleus 4. Hammertoes digits 1-5 bilaterally 5. Eschar of left foot 6. Obesity, Class III, BMI 40-49.9 (morbid obesity) 7. Vitamin D deficiency Post-op Diagnosis:: Same Procedure performed:: 1. Left removal of external fixation device 2. Left foot wound debridement 3. Left foot application of skin graft 4. Left flexor tenotomies 1-5 5. Right hallux, flexor tenotomy Surgeon:: Dione Castro DPM CANDY CUTTER MACHINE:: Pravin Rosario Anesthesia: local (30cc 0.5% effie plain) Estimated blood loss (mL): 10 Clinical Note:: 02/02/19: s/p left Charcot reconstruction, application of external fixator Left foot and ankle x-rays taken 03/31/2019 evaluated by myself. X-rays show external fixation device intact. Hardware plate, screws intact to the foot with no evidence of failure. Some joints partly obscured due to frame but healing noted to the fusion sites. The patient understands post op she will be NWB. She also understands that she will need to have bracing and physical therapy. After a long discussion with the patient in regards to the conservative and post op surgical treatment for the Charcot deformity, the patient has elected to proceed with surgery for ex fix removal. We also discussed wound and healing complications. She c/o pain and HT deformity to right great toe and left toes. The patient has been instructed on the planned procedure, all risk versus benefits of the procedure discussed. These include but are not limited to: bleeding, infection, nerve and blood vessel damage, need for further surgery, delay in healing of soft tissue or bone, failure of bones to heal, non-union, mal-union, failure of the implant, broken pins, over lengthening of the tendon, prolonged pain and recovery, prolonged swelling, CPRS/RSD, DVT, anesthetic complications and even . No guarantees were given. All questions fully answered. The patient verbalized understanding and agreed to proceed with surgery. Written consent was obtained. Plan for surgery Wedn 04/13/18: left foot removal of external fixation device, possible wound debridement and flexor tenotomies Operative findings:: Ex fix clean dry and intact. No evidence of pin tract infection. Eschar and scab noted to left foot medial surgical incision, no SOI. The right hallux has contracture at HIPJ. Operative note:: On this date and time patient was deemed an appropriate surgical candidate. With informed consent signed, the patient was taken to the operating theater. The patient was positioned supine. MAC anesthesia was induced. No tourniquet used. Left removal of external fixation device: The left lower extremity was prepped with betadine. A wrench was used to unscrew the frame. The frame was removed in total. All of the pins were removed without complication. Next a curette was used to curette and debride the pin sites. Fibrotic tissue and biofilm was removed. No drainage noted from pin sites. No purulence or other signs of infection noted to the foot, distal or proximal tibial pin sites. Pin site wounds were granular. All pin sites were cleansed with Betadine. Left wound debridement x 2: Attention was directed to the medial and lateral surgical incisions where proximally there was dry intact eschar and scabby crusty skin. Utilizing a 15 blade and a curette the area sharply debrided. There is no signs of infection noted. Post debridement thru skin on the lateral incision, there was a small wound which extended into sub q. The wound base granular 100% and measured 1.1 x 1.4 x 0.3cm. It did not probe deeply. After sharp debridement to the medial wound with 15' blade and currette thru skin into subq, there was a wound noted. The wound had fibrotic slough. It was sharply debrided along with biofilm. The wound
--- NOTE | 2019-04-08 07:20 | P.OP_ITS ---
Date of procedure: 04/08/19 Pre-op Diagnosis:: 1. Status post foot surgery, 02/02/19: s/p left Charcot reconstruction, application of external fixator 2. Type 2 diabetes mellitus with Charcot's joint of left foot 3. Right hallux malleus 4. Hammertoes digits 1-5 bilaterally 5. Eschar of left foot 6. Obesity, Class III, BMI 40-49.9 (morbid obesity) 7. Vitamin D deficiency Post-op Diagnosis:: Same Procedure performed:: 1. Left removal of external fixation device 2. Left foot wound debridement 3. Left foot application of skin graft 4. Left flexor tenotomies 1-5 5. Right hallux, flexor tenotomy Surgeon:: Dione Castro DPM FISH SMOKER:: Pravin Rosario Anesthesia: local (30cc 0.5% effie plain) Estimated blood loss (mL): 10 Clinical Note:: 02/02/19: s/p left Charcot reconstruction, application of external fixator Left foot and ankle x-rays taken 03/31/2019 evaluated by myself. X-rays show external fixation device intact. Hardware plate, screws intact to the foot with no evidence of failure. Some joints partly obscured due to frame but healing noted to the fusion sites. The patient understands post op she will be NWB. She also understands that she will need to have bracing and physical therapy. After a long discussion with the patient in regards to the conservative and post op surgical treatment for the Charcot deformity, the patient has elected to proceed with surgery for ex fix removal. We also discussed wound and healing complications. She c/o pain and HT deformity to right great toe and left toes. The patient has been instructed on the planned procedure, all risk versus benefits of the procedure discussed. These include but are not limited to: bleeding, infection, nerve and blood vessel damage, need for further surgery, delay in healing of soft tissue or bone, failure of bones to heal, non-union, mal-union, failure of the implant, broken pins, over lengthening of the tendon, prolonged pain and recovery, prolonged swelling, CPRS/RSD, DVT, anesthetic complications and even . No guarantees were given. All questions fully answered. The patient verbalized understanding and agreed to proceed with surgery. Written consent was obtained. Plan for surgery Wedn 04/13/18: left foot removal of external fixation device, possible wound debridement and flexor tenotomies Operative findings:: Ex fix clean dry and intact. No evidence of pin tract infection. Eschar and scab noted to left foot medial surgical incision, no SOI. The right hallux has contracture at HIPJ. Operative note:: On this date and time patient was deemed an appropriate surgical candidate. With informed consent signed, the patient was taken to the operating theater. The patient was positioned supine. MAC anesthesia was induced. No tourniquet used. Left removal of external fixation device: The left lower extremity was prepped with betadine. A wrench was used to unscrew the frame. The frame was removed in total. All of the pins were removed without complication. Next a curette was used to curette and debride the pin sites. Fibrotic tissue and biofilm was removed. No drainage noted from pin sites. No purulence or other signs of infection noted to the foot, distal or proximal tibial pin sites. Pin site wounds were granular. All pin sites were cleansed with Betadine. Left wound debridement x 2: Attention was directed to the medial and lateral surgical incisions where proximally there was dry intact eschar and scabby crusty skin. Utilizing a 15 blade and a curette the area sharply debrided. There is no signs of infection noted. Post debridement thru skin on the lateral incision, there was a small wound which extended into sub q. The wound base gran
[2019-04-08 07:26] LABS: Erythrocyte Sedimentation Rate 60 mm/hr (0-20)
[2019-04-08 07:57] LABS: Uric Acid 5.6 mg/dL (2.6-7.2)
--- NOTE | 2019-04-08 08:33 | P.PN_ITS ---
[facility] Anesthesia Checklist - Patient Identification Patient Identification: Arm Band - Structural Data Admitted From: Home Planned Operative Procedure/s: removal of left ex fix device,wound debridement, r hallux flexor tenotomy Consent for Planned Operative Procedure(s) Verified: Yes Verified Documents: Surgical Consent, History and Physical - NPO Status Verified Time NPO: 00:00 - Additional verifications Anesthesia Reactions: No - Airway Assessment C-Spine Mobility Assessed: Yes (mp2) TMJ Mobility Assessed: Yes Dentition: Good Dentition - Neurological Assessment Level of Consciousness: Awake, Alert - Anesthesia Plan Anesthesia Risk discussed: Yes Anesthesia Plan: Verified ASA Class: III Anesthesia Type: General [facility] History I have reviewed the patient's past medical history: Yes 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: Reports:: Anxiety, Coronary Artery Disease, Diabetes Mellitus Type 2, Hypertension, MRSA (r foot), Myocardial Infarction Denies:: Asthma, Cancer, Chronic Obstructive Pulmonary Disease (COPD), Diabetes Mellitus Type 1, Hyperlipidemia, Internal Pacemaker, Seizures *Have you ever received a pneumonia vaccine?: Yes *Have you received a flu vaccine this season?: Yes Other 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: Reports: Arthritis, Fibromyalgia, Other. Denies: Blood Transfusion Reaction Laterality Cases: Bilateral: Arthroscopy Knee, Arthroscopy Shoulder, Other Other Surgeries: Yes: No Previous Surgery, Appendectomy, Cardiac Catheterization, Cholecystectomy, Hysterectomy-Total, Other. No: Pacemaker Amputation: No Fractures: No - *Social History Educational Level: Attended College Smoking Status: Never smoker # Packs/Day (cigarettes): 0 #Yrs smoked (if former smoker): 25 Alcohol Intake: never Alcohol Intake Frequency:: other *Occupational Status:: unemployed Housing: house Household Members: family *Travel in the last 8 weeks: None - Psychiatric History Expresses thoughts of harming self/others: None Suicide Plan Description: No Plan Pschychiatric History:: Reports:: Anxiety Family Hx:: Cancer, Diabetes, Hypertension
--- NOTE | 2019-04-08 08:34 | P.PN_ITS ---
[facility] Anesthesia Record Part II Discharge Time: 09:00 Destination: [facility] PACU nurse assessment reviewed?: Yes Patient Condition:: Good Anesthesia Complications:: None Swallowing reflex intact?: Yes Cyanosis?: No
--- NOTE | 2019-04-08 08:34 | HMH.ANESI ---
[facility] Anesthesia Record Part I Intake, IV Amount: 1,100 Estimated blood loss (mL): 5 Urine output (mL): 0 Blood Pressure: 118/75 SaO2: 95 Pulse Rate: 85 Respiratory Rate: 16 Temperature: 98.2 F Patient is:: Drowsy, Stable Stable to PACU at:: 08:30
--- NOTE | 2019-04-08 08:34 | HMH.ANESII ---
[facility] Anesthesia Record Part II Discharge Time: 09:00 Destination: [facility] PACU nurse assessment reviewed?: Yes Patient Condition:: Good Anesthesia Complications:: None Swallowing reflex intact?: Yes Cyanosis?: No
--- NOTE | 2019-04-08 08:35 | XR_ITS ---
XR foot RT min 3V HISTORY: Follow-up surgery ITS.REASON: s/p tenotomy right great toe ORDERING PHYSICIAN: Dione Castro DPM PATIENT AGE: 48 years COMPARISON: 01/12/2019 FINDINGS: Artifact is present from overlying bandage somewhat obscured finding tail of the toes. Otherwise overall no change in the extensive foot surgery as previously described with multiple screws extending from the posterior calcaneus to the base of the third metatarsal and from the posterior calcaneus into the talus with the bone plate over the medial aspect of the talus, navicular, medial cuneiform and proximal aspect of the first metatarsal along with a long screw within the first metatarsal into the medial cuneiform and navicular region. No acute fracture or dislocation. Flexion deformity involves all toes.. The distal aspect of the long screw within the first metatarsal does project into the first metatarsophalangeal joint not significantly changed. Previously noted lucency in the mid shaft of the first metatarsal is less apparent. IMPRESSION: Overall no significant change status post extensive foot surgery with fusion as described above with bandage artifact overlying the toes
--- NOTE | 2019-04-08 08:35 | XR_ITS ---
XR foot LT min 3V HISTORY: Follow-up surgery/fusion ITS.REASON: s/p removal of external fixator ORDERING PHYSICIAN: Dione Castro DPM PATIENT AGE: 48 years COMPARISON: 03/31/2019 FINDINGS: The external fixator device has been removed. Overall no change prior talocalcaneal, calcaneocuboid, navicular cuneiform and first metatarsal fusion with a long screw from the distal first metatarsal into the talus. There are 2 screws also from the cuboid into the calcaneus. There is artifact from the overlying bandage.. There is a well-circumscribed longitudinal lucency in the mid aspect of the calcaneus measuring 2.5 x 0.7 cm and may represent surgical defect is correlate with surgical history. IMPRESSION: Status post removal of external fixator device. No change in the screws and plates from the hindfoot and midfoot fusion with maintenance of alignment
--- NOTE | 2019-04-08 08:39 | XR_ITS ---
XR ankle LT min 3V HISTORY: Follow-up foot surgery ITS.REASON: s/p removal of external fixator ORDERING PHYSICIAN: Dione Castro DPM PATIENT AGE: 48 years Comparison: 02/02/2019 FINDINGS: The external fixator has been removed. The distal tibia and fibula appear intact. Threaded screws and metallic brackets are seen in the foot. The soft tissues are normal. IMPRESSION: Satisfactory removal of external fixator with small radiolucent defects seen in the distal tibia and fibula secondary to the previous fixator placement
[2019-04-08 08:40] LABS: POC Glucose,Bedside 152 (70-110)
--- NOTE | 2019-04-08 10:16 | SUR.PHASEI ---
FSBS at 0832: 152 all xrays completed: left foot and ankle with special attention that ankle views were high r/t to pins from external fixator, and right foot , all according to written orders post op right shoe, large, to PACU, for pt to wear/take home, according to written orders
[2019-04-10 17:24] LABS: Antinuclear Antibodies, IFA Negative (.); RA Latex Turbid. <10.0 IU/mL (0.0-13.9)
== END 2019-04-08 09:54 | disposition home or self-care (01) ==
LOC: OR 06:05
PROVIDERS: PCP Internal Medicine; Visit Provider Podiatrist
PROC: (CPT 28011; principal; 2019-04-08 07:30)
DX: E11.610 Type 2 diabetes mellitus with diabetic neuropathic arthropathy (principal); E66.01 Morbid (severe) obesity due to excess calories; Z68.41 Body mass index [BMI] 40.0-44.9, adult; M20.31 Hallux varus (acquired), right foot; E55.9 Vitamin D deficiency, unspecified; T81.89XA Other complications of procedures, not elsewhere classified, initial encounter; M62.48 Contracture of muscle, other site
CPT/HCPCS: 28011; 11042; 20694; 36415; 73610; 73630; 80053; 82962; 84550; 85025; 85651; 86038; 86140; 86431; 96374; C9399; J2405

== ENCOUNTER → 2019-04-20 16:10 | Outpatient (CLI) | payer MEDICAID, SELFPAY ==
--- NOTE | 2019-04-20 16:14 | XR_ITS ---
XR ankle wt bearing LT min 3V HISTORY: Follow-up arthrodesis, external fixator removal ITS.REASON: pain ORDERING PHYSICIAN: Dione Castro DPM PATIENT AGE: 48 years Comparison: 03/31/2019 FINDINGS: There has been interval removal of the external fixator with tracks present in the distal tibia. Status post talocalcaneal and calcaneocuboid fusion. Bone plate remains in place along the talonavicular and navicular cuneiform and medial cuneiform proximal first metatarsal region with good alignment. Long cannulated screws remain in place from the distal aspect of the first metatarsal to the talus and from the calcaneus into the talus. There is some increased density along the dorsal aspect of the midfoot at the talonavicular region possibly related to some bone cement. IMPRESSION: Interval external fixator removal. No change in the hindfoot and midfoot fusion
--- NOTE | 2019-04-20 16:14 | XR_ITS ---
XR foot wt bearing LT 3V HISTORY: ITS.REASON: pain ORDERING PHYSICIAN: Dione Castro DPM PATIENT AGE: 48 years COMPARISON: None FINDINGS: There has been interval removal of the external fixator with tracks present in the distal tibia. Status post talocalcaneal and calcaneocuboid fusion. Bone plate remains in place along the talonavicular and navicular cuneiform and medial cuneiform proximal first metatarsal region with good alignment. Long cannulated screws remain in place from the distal aspect of the first metatarsal to the talus and from the calcaneus into the talus. There is some increased density along the dorsal aspect of the midfoot at the talonavicular region possibly related to some bone cement. IMPRESSION: Interval external fixator removal. No change in the hindfoot and midfoot fusion
[2019-04-20 17:03] LABS: Basophils % 0.3 % (0.1-2.0); Eosinophils # 0.4 K/mm3 (0.0-0.4); Eosinophils % 3.6 % (0.1-12.0); Hematocrit 32.5 % (37.0-47.0); Hemoglobin 10.3 g/dL (12.2-16.2); Lymphocytes # 2.7 K/mm3 (0.7-4.5); Lymphocytes % 23.2 % (10-50); Mean Corpuscular HGB Conc 31.7 g/dL (31.8-35.4); Mean Corpuscular Hemoglobin 24.5 pg (27.0-31.2); Mean Corpuscular Volume 77.3 fl (81-99); Mean Platelet Volume 8.6 fl (7.4-10.4); Monocytes # 0.6 K/mm3 (0.1-1.0); Monocytes % 4.9 % (1.7-9.3); Neutrophils # 7.9 K/mm3 (1.8-7.8); Neutrophils % 68.1 % (37.0-80.0); Platelet Count 319 K/mm3 (142-424); Red Blood Count 4.21 M/mm3 (4.20-5.40); White Blood Count 11.5 K/mm3 (4.8-10.8)
[2019-04-20 17:58] LABS: Erythrocyte Sedimentation Rate 89 mm/hr (0-20)
[2019-04-20 18:34] LABS: Hemoglobin A1C 6.6 % (0.0-7.0)
[2019-04-20 19:43] LABS: Alanine Aminotransferase 21 U/L (12-78); Albumin/Globulin Ratio 0.8 (1.1-1.8); Alkaline Phosphatase 123 U/L (46-116); Anion Gap 14.7 mEq/L (5-15); Aspartate Amino Transferase 14 U/L (15-37); Bilirubin,Total 0.3 mg/dL (0.2-1.0); Blood Urea Nitrogen 29 mg/dL (7-18); C-Reactive Protein 4.4 mg/L (0.0-0.9); Calcium 8.6 mg/dL (8.5-10.1); Carbon Dioxide 25 mmol/L (21.0-32.0); Chloride 105 mmol/L (98-107); Creatinine,Serum 1.07 mg/dL (0.55-1.02); Estimated Glomerular Filt Rate 54 ml/min (>60); GFR (African American) 66 ML/MIN (>60); Globulin 3.7 gm/dl (1.3-3.2); Glucose 193 mg/dL (74-106); Potassium 4.7 mmoL/L (3.5-5.1); Sodium 140 mmol/L (136-145); Total Protein,Serum 6.7 gm/dL (6.4-8.2)
== END ==
PROVIDERS: PCP Internal Medicine; Visit Provider Podiatrist
DX: Z98.890 Other specified postprocedural states (principal)
CPT/HCPCS: 36415; 73610; 73630; 80053; 83036; 85025; 85651; 86140

== ENCOUNTER → 2019-06-09 11:37 | Outpatient (CLI) | payer MEDICAID, SELFPAY ==
[2019-06-09 13:09] LABS: Basophils % 0.3 % (0.1-2.0); Eosinophils # 0.3 K/mm3 (0.0-0.4); Eosinophils % 2.9 % (0.1-12.0); Hematocrit 34.6 % (37.0-47.0); Hemoglobin 10.1 g/dL (12.2-16.2); Lymphocytes # 2.4 K/mm3 (0.7-4.5); Lymphocytes % 23.7 % (10-50); Mean Corpuscular HGB Conc 29.1 g/dL (31.8-35.4); Mean Corpuscular Hemoglobin 23.1 pg (27.0-31.2); Mean Corpuscular Volume 79.4 fl (81-99); Mean Platelet Volume 8.9 fl (7.4-10.4); Monocytes # 0.5 K/mm3 (0.1-1.0); Monocytes % 4.8 % (1.7-9.3); Neutrophils % 68.2 % (37.0-80.0); Platelet Count 301 K/mm3 (142-424); Red Blood Count 4.35 M/mm3 (4.20-5.40); Red Cell Distribution Width 15.6 % (11.5-17.5); White Blood Count 10.3 K/mm3 (4.8-10.8)
[2019-06-09 14:52] LABS: C-Reactive Protein 1.8 mg/L (0.0-0.9)
[2019-06-09 15:15] LABS: Erythrocyte Sedimentation Rate 93 mm/hr (0-20)
== END ==
PROVIDERS: Visit Provider Podiatrist
DX: Z98.890 Other specified postprocedural states (principal)
CPT/HCPCS: 36415; 85025; 85651; 86140

== ENCOUNTER 2019-06-27 08:30 | Outpatient (RCR) | payer MEDICAID, SELFPAY ==
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
--- NOTE | 2019-06-27 08:36 | HMH.RHREAS ---
Rehab Reassessment Rehab OP Re-assessment Start: 06/27/19 08:31 Freq: Status: Active Protocol: Document 06/27/19 08:32 HERBERT (Rec: 06/27/19 08:35 HERBERT [id number]) Electronically Signed By Moo Sibley, PT 06/27/19 08:32 Rehab Re-assessment Subjective Subjective Pt reports much less tenderness and pain in the left foot. Following all instructions for home dressing changes. Objective Objective Notes Left medial foot wound: length = 1.0 cm, width= 3.6 cm. Tissue: 95% healthy granulation tissue. Assessment Progress Assessment Progressing as Expected Assessment Notes Pt left foot wound healing very well, considerable epithelialization at wound borders and forming cross- bridges. Patient goals met ST,2,3,4 Goals Not Met LT,2,3,4,5 Revised Goals none Plan Plan Continue per initial POC. Frequency of Therapy 1x/wk Duration of therapy 8 wks Time and Billing Re-Eval Time 15 Re-Eval Billing Units 1 PHYSICIAN CERTIFICATION: I certify the specified therapy services for Bee Colon are required, authorized, and reviewed every 30 days.
== END 2019-06-27 08:35 | disposition home or self-care (01) ==
LOC: PT 08:30
PROVIDERS: Visit Provider Podiatrist
DX: T81.31XA Disruption of external operation (surgical) wound, not elsewhere classified, initial encounter (principal); Z98.890 Other specified postprocedural states
CPT/HCPCS: 97162; 97164; 97597

== ENCOUNTER → 2019-07-05 14:57 | Outpatient (CLI) | payer MEDICAID, SELFPAY ==
--- NOTE | 2019-07-05 15:01 | XR_ITS ---
PROCEDURE: XR ANKLE WT BEARING LT MIN 3V CLINICAL INDICATION: pain Pain and swelling COMPARISON: [id number] XR ankle wt bearing LT min 3V from 02/17/2019 from 04/20/2019 FINDINGS: No change status post subtalar fusion, midfoot fusion. Lucency is present in the distal and mid tib fib from external fixator. The ankle joint has an unremarkable appearance. IMPRESSION: Overall no change status post fusion Dictated by: Hemal Pedersen MD 07/05/2019 15:16 Signed by: <Electronically signed by Hemal Pedersen MD in [place]> 07/05/2019 15:16
== END ==
PROVIDERS: PCP Internal Medicine; Visit Provider Podiatrist
DX: M25.572 Pain in left ankle and joints of left foot (principal)
CPT/HCPCS: 73610

== ENCOUNTER → 2019-08-02 08:07 | Outpatient (CLI) | payer MEDICAID, SELFPAY ==
--- NOTE | 2019-08-02 08:14 | XR_ITS ---
PROCEDURE: XR ANKLE WT BEARING LT MIN 3V CLINICAL INDICATION: post-op Pain and swelling the the COMPARISON: [id number] XR ankle wt bearing LT min 3V from 01/07/2019 [id number] XR ankle LT min 3V from 02/02/2019 [id number] XR ankle wt bearing LT min 3V from 02/17/2019 from 04/20/2019 from 04/20/2019 FINDINGS: Status post triple arthrodesis with screws and plates present as before with pes planus. Osteoarthritic changes are present at the ankle joint. Small area of exostosis is noted at the neck of the talus versus small bony fragment. This is not significantly changed considering the slight difference in positioning IMPRESSION: Postsurgical change, no significant change with no acute finding. Mild osteoarthritic change at the ankle Dictated by: Hemal Pedersen MD 08/02/2019 09:30 Electronically signed by Hemal Pedersen MD in [place] 08/02/2019 09:30
== END ==
PROVIDERS: PCP Internal Medicine; Visit Provider Podiatrist
DX: Z98.890 Other specified postprocedural states (principal); S82.55XD Nondisplaced fracture of medial malleolus of left tibia, subsequent encounter for closed fracture with routine healing
CPT/HCPCS: 73610

== ENCOUNTER → 2019-08-11 07:49 | Outpatient (CLI) | payer MEDICAID, SELFPAY ==
--- NOTE | 2019-08-11 07:52 | XR_ITS ---
PROCEDURE: XR FOOT WT BEARING LT 3V CLINICAL INDICATION: pain Follow-up arthrodesis COMPARISON: [id number] XR foot wt bearing RT 3V from 01/07/2019 [id number] XR foot RT min 3V from 01/12/2019 [id number] XR foot LT min 3V from 02/02/2019 [id number] XR foot wt bearing LT 3V from 02/17/2019 [id number] XR ankle wt bearing LT min 3V from 02/17/2019 XR ANKLE WT BEARING LT MIN 3V from 08/02/2019 XR ANKLE WT BEARING LT MIN 3V from 08/11/2019 FINDINGS: Status post talocalcaneal arthrodesis and calcaneocuboid arthrodesis. Bone plate is present also medially at the tail 0 navicular medial cuneiform and 1st metatarsal region with a long lag screw from the 1st metatarsal through the medial cuneiform navicular and talus. There is good alignment. There is pes planus. Hammertoe deformity noted of all toes. No acute fracture or dislocation. The talocalcaneal joint space remains visible in the mid aspect. There is some irregularity of the talar dome anteriorly as seen on the lateral view of the ankle. IMPRESSION: Postsurgical changes from triple arthrodesis as well as fusion of the 1st metatarsal tarsal and talonavicular joint. Mild irregularity of the talar dome anteriorly Dictated by: Hemal Pedersen MD 08/11/2019 09:28 Electronically signed by Hemal Pedersen MD in [place] 08/11/2019 09:28
--- NOTE | 2019-08-11 08:35 | XR_ITS ---
PROCEDURE: XR FOOT WT BEARING LT 3V CLINICAL INDICATION: pain Follow-up arthrodesis COMPARISON: [id number] XR foot wt bearing RT 3V from 01/07/2019 [id number] XR foot RT min 3V from 01/12/2019 [id number] XR foot LT min 3V from 02/02/2019 [id number] XR foot wt bearing LT 3V from 02/17/2019 [id number] XR ankle wt bearing LT min 3V from 02/17/2019 XR ANKLE WT BEARING LT MIN 3V from 08/02/2019 XR ANKLE WT BEARING LT MIN 3V from 08/11/2019 FINDINGS: Status post talocalcaneal arthrodesis and calcaneocuboid arthrodesis. Bone plate is present also medially at the tail 0 navicular medial cuneiform and 1st metatarsal region with a long lag screw from the 1st metatarsal through the medial cuneiform navicular and talus. There is good alignment. There is pes planus. Hammertoe deformity noted of all toes. No acute fracture or dislocation. The talocalcaneal joint space remains visible in the mid aspect. There is some irregularity of the talar dome anteriorly as seen on the lateral view of the ankle. IMPRESSION: Postsurgical changes from triple arthrodesis as well as fusion of the 1st metatarsal tarsal and talonavicular joint. Mild irregularity of the talar dome anteriorly Dictated by: Hemal Pedersen MD 08/11/2019 09:28 Electronically signed by Hemal Pedersen MD in [place] 08/11/2019 09:28
== END ==
PROVIDERS: PCP Internal Medicine; Visit Provider Podiatrist
DX: M25.572 Pain in left ankle and joints of left foot (principal); M79.672 Pain in left foot
CPT/HCPCS: 73610; 73630

== ENCOUNTER → 2019-08-11 09:03 | Outpatient (CLI) | payer MEDICAID, SELFPAY ==
[2019-08-11 09:37] LABS: Basophils # 0.1 K/mm3 (0-0.2); Basophils % 0.7 % (0.1-2.0); Eosinophils # 0.4 K/mm3 (0.0-0.4); Eosinophils % 3.7 % (0.1-12.0); Hematocrit 36.4 % (37.0-47.0); Lymphocytes # 3.4 K/mm3 (0.7-4.5); Lymphocytes % 34.1 % (10-50); Mean Corpuscular HGB Conc 30.3 g/dL (31.8-35.4); Mean Corpuscular Hemoglobin 24.6 pg (27.0-31.2); Mean Corpuscular Volume 81.2 fl (81-99); Mean Platelet Volume 8.4 fl (7.4-10.4); Monocytes # 0.6 K/mm3 (0.1-1.0); Monocytes % 5.8 % (1.7-9.3); Neutrophils # 5.5 K/mm3 (1.8-7.8); Neutrophils % 55.6 % (37.0-80.0); Platelet Count 315 K/mm3 (142-424); Red Blood Count 4.49 M/mm3 (4.20-5.40); Red Cell Distribution Width 17.5 % (11.5-17.5)
[2019-08-11 10:11] LABS: Erythrocyte Sedimentation Rate 61 mm/hr (0-30)
[2019-08-11 11:37] LABS: Alanine Aminotransferase 18 U/L (12-78); Albumin Level 3.2 gm/dL (3.4-5.0); Albumin/Globulin Ratio 0.8 (1.1-1.8); Alkaline Phosphatase 113 U/L (46-116); Anion Gap 13.5 mEq/L (5-15); Aspartate Amino Transferase 9 U/L (15-37); Bilirubin,Total 0.3 mg/dL (0.2-1.0); Blood Urea Nitrogen 21 mg/dL (7-18); C-Reactive Protein 0.2 mg/dL (0.0-0.9); Calcium 8.8 mg/dL (8.5-10.1); Carbon Dioxide 28 mmol/L (21.0-32.0); Chloride 103 mmol/L (98-107); Creatinine,Serum 1.16 mg/dL (0.55-1.02); Estimated Glomerular Filt Rate 49 ml/min (>60); GFR (African American) 60 ML/MIN (>60); Glucose 120 mg/dL (74-106); Potassium 4.5 mmoL/L (3.5-5.1); Sodium 140 mmol/L (136-145); Total Protein,Serum 7.2 gm/dL (6.4-8.2); Uric Acid 5.6 mg/dL (2.6-7.2)
[2019-08-11 12:22] LABS: Hemoglobin A1C 8.2 % (0.0-7.0)
[2019-08-13 13:46] LABS: Antinuclear Antibodies, IFA Negative (.); RA Latex Turbid. <10.0 IU/mL (0.0-13.9)
== END ==
PROVIDERS: Visit Provider Podiatrist
DX: Z98.890 Other specified postprocedural states (principal); E11.610 Type 2 diabetes mellitus with diabetic neuropathic arthropathy; Z79.4 Long term (current) use of insulin
CPT/HCPCS: 36415; 80053; 83036; 84550; 85025; 85651; 86038; 86140; 86431

== ENCOUNTER → 2019-08-18 08:49 | Outpatient (CLI) | payer MEDICAID, SELFPAY ==
--- NOTE | 2019-08-18 08:50 | XR_ITS ---
PROCEDURE: XR DEXA AXIAL SKELETON CLINICAL HISTORY: vitamin d deficiency COMPARISON: No exams were available for comparison FINDINGS: Lumbar spine (L1 through L4), BMD 0.955, T-score -1.9. Left hip (neck), BMD 0.778, T-score -1.9. IMPRESSION: Osteopenia. Dictated by: Jitendra Oro 08/18/2019 09:53 Electronically signed by Jitendra Oro in [place] 08/18/2019 09:53
== END ==
PROVIDERS: PCP Internal Medicine; Visit Provider Podiatrist
DX: M81.0 Age-related osteoporosis without current pathological fracture (principal); E55.9 Vitamin D deficiency, unspecified
CPT/HCPCS: 77080

== ENCOUNTER → 2019-09-19 08:10 | Outpatient (CLI) | payer BC, SELFPAY ==
--- NOTE | 2019-09-19 08:15 | XR_ITS ---
PROCEDURE: XR TIBIA FIBULA LT 2V CLINICAL INDICATION: postop views Pain, follow-up surgery COMPARISON: TIBIART XR tibia fibula RT 2V from 05/05/2018 XR ANKLE WT BEARING LT MIN 3V from 08/11/2019 FINDINGS: Lucencies are present in the mid distal aspect of the tibia and fibula representing prior tracks from the external fixator. Minimal degenerative changes are present at the ankle and knee. There are postsurgical changes of the foot and ankle as described in those reports. IMPRESSION: No change with no acute finding of the tib fib Dictated by: Hemal Pedersen MD 09/19/2019 09:44 Electronically signed by Hemal Pedersen MD in [place] 09/19/2019 09:44
--- NOTE | 2019-09-19 08:15 | XR_ITS ---
PROCEDURE: XR ANKLE WT BEARING LT MIN 3V CLINICAL INDICATION: postop views follow-up surgery/pain COMPARISON: [id number] XR ankle wt bearing LT min 3V from 02/17/2019 XR ANKLE WT BEARING LT MIN 3V from 07/05/2019 XR ANKLE WT BEARING LT MIN 3V from 08/02/2019 XR ANKLE WT BEARING LT MIN 3V from 08/11/2019 XR FOOT WT BEARING LT 3V from 08/11/2019 XR FOOT WT BEARING LT 3V from 09/19/2019 FINDINGS: Status post hind and midfoot arthrodesis with talocalcaneal, talonavicular cuboid and 1st metatarsal fusion with a long lag screw and medial bone plate as well as calcaneal cuboid fusion. The talocalcaneal, talonavicular, and calcaneocuboid joints appear fused. There remains good alignment. No acute fracture or dislocation with no significant change.. There remains lateral angulation of the distal phalanx of the great toe with hammertoe deformity of the toes IMPRESSION: Overall no significant change status post arthrodesis with good alignment as described above Dictated by: Hemal Pedersen MD 09/19/2019 09:47 Electronically signed by Hemal Pedersen MD in [place] 09/19/2019 09:47
== END ==
PROVIDERS: PCP Internal Medicine; Visit Provider Podiatrist
DX: E11.610 Type 2 diabetes mellitus with diabetic neuropathic arthropathy (principal); Z98.890 Other specified postprocedural states
CPT/HCPCS: 73590; 73610; 73630

== ENCOUNTER 2019-09-27 09:46 | Inpatient (IN) ==
[2019-09-27 10:36] LABS: Basophils % 0.3 % (0.1-2.0); Eosinophils # 0.2 K/mm3 (0.0-0.4); Eosinophils % 0.9 % (0.1-12.0); Lymphocytes # 1.9 K/mm3 (0.7-4.5); Lymphocytes % 11.5 % (10-50); Mean Corpuscular HGB Conc 30.8 g/dL (31.8-35.4); Mean Corpuscular Volume 84.4 fl (81-99); Mean Platelet Volume 9.3 fl (7.4-10.4); Monocytes # 1.1 K/mm3 (0.1-1.0); Monocytes % 6.8 % (1.7-9.3); Neutrophils # 12.9 K/mm3 (1.8-7.8); Neutrophils % 80.5 % (37.0-80.0); Platelet Count 336 K/mm3 (142-424); White Blood Count 16.1 K/mm3 (4.8-10.8)
--- NOTE | 2019-09-27 10:43 | Consult Report ---
*Admission Date: 09/27/19 *Reason for consult:: Left foot cellulitis *History of present illness: Mrs. Colon presents today 09/27/19 for f/u of DM ulcers and a medial malleolus fracture of the left tibia. She still has a small skin ulcer underneath the left great hallux. The one on her right great hallux is "gone". She has been keeping the areas covered with a bandaid. She stated last she started feeling fatigue and had glucose issues all weekend, she stated her glucose has been in the 400s this weekend. She finally has got it down to 210 this morning she stated. She stated that Thursday she noticed her foot had puss (yellowish/pinkish color) from it and she has had to change the dressings 2-3 times daily since then. She presents in a wheelchair with her fx boot on. She stated when she walks on her foot she feels sharp pains in the heel and where the ulcer is on the top part of her foot. She is unsure if she has had a fever this weekend, she has had "body chills and sweats but did not check temp". She stated she had Clindamycin left over from a previous visit from her PCP, sos he had taken a couple this weekend. Patient has new ulcer to dorsal left foot and b/l sub 1st met ulcers. There is significant edema, erythema, and drainage from new dorsal left foot ulcer. Plan of care was discussed with Dr. Soria, who will admit. Plan for infection labs and pre op testing: CBC, CMP, ESR, CRP, Ha1c, wound culture, CXR, EKG. Also discussed the patient with Dr. Pedersen radiologist who recommends CT with contrast to evaluate for abscess of the left foot. Review of Systems - Review of Systems Review of systems:: pertinent systems reviewed and negative unless documented below - Constitutional Reports chills, Reports fatigue - Eyes Denies blind spots - ENT Denies abnormal hearing - *Cardiovascular Reports chest pain, Reports foot swelling, Denies shortness of breath - *Respiratory Denies cough, Denies shortness of breath - *Gastrointestinal Reports nausea, Denies vomiting - *Genitourinary Denies abnormal periods - *Musculoskeletal Reports joint swelling, Reports muscle weakness, Reports body aches - Integumentary/Breasts Reports hair loss, Reports skin ulcer, Reports wounds - *Neurologic Reports tingling/numbness/burning sensations - Psychiatric Denies abnormal sleep pattern - Endocrine Denies cold intolerance - Hematologic/Lymphatic Denies easy bleeding - Allergic/Immunologic Reports GI upset with certain foods [facility] History I have reviewed the patient's past medical history: Yes 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: Reports:: Anxiety, Coronary Artery Disease, Diabetes Mellitus Type 2, Hyperlipidemia, Hypertension, MRSA, Myocardial Infarction Denies:: Asthma, Cancer, Chronic Obstructive Pulmonary Disease (COPD), Diabetes Mellitus Type 1, Internal Pacemaker, Seizures *Have you ever received a pneumonia vaccine?: No *Have you received a flu vaccine this season?: Yes Other 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: Reports: Arthritis, Fibromyalgia, Other. Denies: Blood Transfusion Reaction Laterality Cases: Other Surgeries: Yes: No Previous Surgery, Appendectomy, Cardiac Catheterization, Cholecystectomy, Colonoscopy, Hysterectomy-Total, Other. No: Pacemaker Amputation: No Fractures: No - *Social History Smoking Status: Never smoker # Packs/Day (cigarettes): 0 #Yrs smoked (if former smoker): 25 Alcohol Intake: never Alcohol Intake Frequency:: other Substance Use Type: denies use *Occupational Status:: unemployed Housing: house Household Members: family *Travel in the last 8 weeks: None - Psychiatric History Pschychiatric History:: Reports:: Anxiety Family Hx:: Cancer, Diabetes, Hypertension Meds Home Medications Medication Instructions Recorded Confirmed Type carvedilol 6.25 mg tablet 6.25 mg PO BID 30 Days #60 12/28/17 09/27/19 History duloxetine 60 mg capsule,delayed 60 mg PO BID 30 Days #60 12/28/17 09/27/19 History release glipizide 5 mg tablet 10 mg PO BID 30 Days #120 12/28/17 09/27/19 History isosorbide mononitrate ER 60 mg 60 mg PO DAILY 30 Days #30 12/28/17 09/27/19 History tablet,extended release 24 hr liraglutide 0.6 mg/0.1 mL (18 mg/3 1.2 mg SQ DAILY 30 Days #9 12/28/17 09/27/19 History mL) subcutaneous pen injector pregabalin 225 mg capsule 225 mg PO BID 30 Days #60 12/28/17 09/27/19 History atorvastatin 40 mg tablet 40 mg PO HS 30 Days #30 03/01/18 09/27/19 History Cholecalciferol (Vitamin D3) 50,000 unit PO WEEKLY 04/15/18 09/27/19 History [Vitamin D3 50,000 unit Cap] Insulin Glargine,Hum.rec.anlog 70 units SQ HS 06/08/18 09/27/19 History [Insulin Glargine 100 Units/mL 3mL flexpen] tramadol 50 mg tablet 50 mg PO QID 30 Days #120 06/23/18 09/27/19 History ibuprofen 800 mg tablet 800 mg PO BID #60 tab 11/02/18 09/27/19 Rx Hydrocodone/Acetaminophen 1 each PO Q6H 02/03/19 09/27/19 History [Hydrocodone-Acetamin 10-325 mg] Ramipril 10 mg PO DAILY 02/03/19 09/27/19 History Trazodone HCl 50 - 100 mg PO HS 02/03/19 09/27/19 History Aspirin 81 mg PO DAILY 04/08/19 09/27/19 History urea 40 % topical cream 1 applic TOPICAL BID #60 applic 08/23/19 09/27/19 Rx Allergies Allergy/AdvReac Type Severity Reaction Status Date / Time amoxicillin [AMOXICILLIN] Allergy Unknown Unknown Verified 09/27/19 08:26 allergy reaction codeine [CODEINE] AdvReac Mild STOMACH Verified 09/27/19 08:26 CRAMPS morphine [MORPHINE] AdvReac Mild STOMACH Verified 09/27/19 08:26 CRAMPS oxycodone [From Percocet] AdvReac Mild STOMACH Verified 09/27/19 08:26 CRAMPS Exam - *Routine HEENT Exam Head: Present: normocephalic Eye: Present: EOMI - *Routine Neck Exam Present: supple - *Routine Respiratory Exam Present: CTA bilaterally. Absent: respiratory distress - *Routine Cardiovascular Exam Present: RRR - *Routine Abdominal Exam Present: soft, obese - *Routine Rectal Exam Patient deferred: visual exam - *Routine Exam Patient deferred: external exam - *Routine Extremities Exam Present: edema, pulses intact. Absent: calf tenderness, extremity cold to touch - *Routine Skin Exam Present: erythema, dry, wounds - *Routine Neurological Exam Present: alert, moving all extremities - Routine Psychiatric Exam Present: normal affect - Detailed Lower Extremity Exam Top foot image: 1 - New ulcer noted to the dorsal left foot. Bottom foot image: 1 - Right sub 1st met ulcer 2 - Left sub 1st met ulcer Comments: Nails x10 trimmed and dystrophic with yellow thickening noted. Dry skin noted to the right heel with flakying, no breakdown. No definitive decubitus ulcer. Ulcers noted to b/l sub 1st metatarsal and left dorsal midfoot. No calf or thigh pain noted b/l. Pain noted to the left midfoot. No pain noted over next "knot", palpable mass noted to the dorsal lateral midfoot, over the edge of the plate. Minimal pain noted to the left medial > lateral ankle. No pain with dorsiflexion and palpation of the medial ankle gutter. 2+ pitting left foot and ankle edema noted. B/L hand swelling. Left foot edema and erythema with serosanginous drainage from dorsal ulcer. Pain to palpation. Ascending cellulitis. All 3 wounds were debrided sharply in office today with a 15 blade through skin and subcutaneous tissue. See office note for full details. Wound ulcer left dorsal foot: Wound base 100% fibrotic slough. Wound measures full-thickness 0.6 x 0.8 x 0.9 cm. Active serous serosanguineous drainage noted. No significant malodor. Wound ulcer left sub 1st met: Wound base 90% granular, 10% fibrotic slough. Wound measures full-thickness 0.6 x 0.5 x 0.2 cm Wound ulcer right sub 1st met: Wound base 100% granular. Wound measures full-thickness, 0.6 x 0.4 x 0.2 cm Results - Labs Labs: All other labs normal. - Diagnostic results Ankle/Foot x-ray: image reviewed (R foot: hardware intact) Ankle/Foot CT: pending (Left foot) Assessment and Plan (1) Cellulitis of left foot Start date: 09/27/19 Current visit: Yes Status: Acute Category: Medical Code(s): L03.116 - Cellulitis of left lower limb (2) Left foot infection Start date: 09/27/19 Current visit: Yes Status: Acute Category: Medical Code(s): L08.9 - Local infection of the skin and subcutaneous tissue, unspecified (3) Ulcer of left foot due to type 2 diabetes mellitus Current visit: Yes Status: Acute Category: Medical Code(s): E11.621 - Type 2 diabetes mellitus with foot ulcer; L97.529 - Non-pressure chronic ulcer of other part of left foot with unspecified severity (4) Ulcer of right foot due to type 2 diabetes mellitus Current visit: Yes Status: Acute Category: Medical Code(s): E11.621 - Type 2 diabetes mellitus with foot ulcer; L97.519 - Non-pressure chronic ulcer of other part of right foot with unspecified severity (5) Encounter for wound care Current visit: No Status: Acute Category: Medical Code(s): Z51.89 - Encounter for other specified aftercare (6) Essential hypertension Current visit: No Status: Acute Category: Medical Code(s): I10 - Essential (primary) hypertension (7) Obesity, Class III, BMI 40-49.9 (morbid obesity) Current visit: No Status: Acute Category: Medical Code(s): E66.01 - Morbid (severe) obesity due to excess calories (8) Type 2 diabetes mellitus with Charcot's joint of left foot Current visit: No Status: Acute Category: Medical Code(s): E11.610 - Type 2 diabetes mellitus with diabetic neuropathic arthropathy (9) Type 2 diabetes mellitus with Charcot's joint of right foot Current visit: No Status: Acute Category: Medical Code(s): E11.610 - Type 2 diabetes mellitus with diabetic neuropathic arthropathy (10) Vitamin D deficiency Current visit: No Status: Acute Category: Medical Code(s): E55.9 - Vitamin D deficiency, unspecified (11) Hx MRSA infection Current visit: Yes Status: Acute Category: Medical Code(s): Z86.14 - Personal history of Methicillin resistant Staphylococcus aureus infection (12) CAD (coronary artery disease) Current visit: Yes Status: Acute Category: Medical Code(s): I25.10 - Atherosclerotic heart disease of [place] coronary artery without angina pectoris (13) Hyperlipemia Current visit: Yes Status: Acute Category: Medical Code(s): E78.5 - Hyperlipidemia, unspecified (14) History of myocardial infarction Current visit: Yes Status: Acute Category: Medical Code(s): I25.2 - Old myocardial infarction - Assessment and plan all Dx Assessment and Plan for all problems:: 02/02/19: s/p left Charcot reconstruction, application of external fixator 04/08/19: s/p left ex fix removal, wound debridement x 2, melani of skin graft, flexor tenotomies (R1, L1-5) POV # 19 / 12 POD # 23w, 4d Infected Wound: left DM ulcer, edema, cellulitis: I discussed with the patient the importance of proper hygiene and maintaining a clean healthy wound bed to avoid the infection spreading. The wound was cleansed with betadine. Utilizing a 15 blade, the wound was sharply excisionally debrided through skin into sub q layer. Biofilm and fibrotic slough were debrided. The wound did probe thru deep fascia but not into the bone. There was positive drainage and purulence noted. Wound culture obtained, left dorsal ulcer. Yris- wound and ascending cellulitis noted. Non-palpable popliteal lymph nodes. Post- debridement: see wound assessment in office note and PE section. Dressing applied: betadine dry sterile dressing 1. Discussed plan of care with Dr. Sorai, admit today under Dr. Soria 2. I discussed plan of care with the patient in detail. Patient has previous hardware from Charcot reconstruction. I explained the need for surgical intervention due to the deep hardware. Definitely concern over possible ost eomyelitis and abscess. Discussed doing an I&D and possibly removing the hardware and doing a bone biopsy. 3. NWB in fracture boot to L foot, with DME assistance. 4. Order infection panel: CBC, CMP, ESR, CRP, Ha1c, wound culture, right foot x- rays. 5. IV antibiotics: Vanco, Zosyn. Will need PICC placement. 6. I discussed previous x-rays and case with Dr. Pdeersen, radiologist. Will order CT with and without contrast to evaluate for left foot abscess. Discussed possibly ordering a three-phase bone scan to evaluate for hardware, bone infection. Will get CT scan and then reevaluate. 7. Consent signed in office: Left foot incision and drainage, wound ulcer debridement, possible application of wound VAC. 8. NPO after midnight. 9. Plan for surgery tomorrow 09/28/19: left foot incision and drainage, ulcer wound debridement, hardware removal, possible wound vac application.
[2019-09-27 10:47] LABS: INR 0.92 (0.9-1.1); Prothrombin Time 9.6 seconds (9.4-11.8)
[2019-09-27 11:02] LABS: Hematocrit 31.6 % (37.0-47.0); Hemoglobin 9.7 g/dL (12.2-16.2); Red Blood Count 3.75 M/mm3 (4.20-5.40)
[2019-09-27 11:46] LABS: Blood Urea Nitrogen 33 mg/dL (7-18)
[2019-09-27 11:49] LABS: Alanine Aminotransferase 13 U/L (12-78); Albumin/Globulin Ratio 0.4 (1.1-1.8); Alkaline Phosphatase 135 U/L (46-116); Anion Gap 11.5 mEq/L (5-15); Aspartate Amino Transferase 7 U/L (15-37); Bilirubin,Total 0.3 mg/dL (0.2-1.0); Calcium 8.9 mg/dL (8.5-10.1); Carbon Dioxide 27 mmol/L (21.0-32.0); Chloride 99 mmol/L (98-107); Globulin 4.5 gm/dl (1.3-3.2); Glucose 242 mg/dL (74-106); Sodium 133 mmol/L (136-145); Total Protein,Serum 6.5 gm/dL (6.4-8.2)
[2019-09-27 11:52] LABS: C-Reactive Protein 30.6 mg/dL (0.0-0.9)
[2019-09-27 11:56] LABS: Erythrocyte Sedimentation Rate > 140 mm/hr (0-30)
[2019-09-27 11:59] LABS: Lymphocytes % 18 % (10-50); Monocytes % 5 % (2-9); Neutrophils % 77 % (42-76); Total Cells Counted 100
[2019-09-27 12:00] LABS: Anisocytosis 1+; Hypochromasia 1+
--- NOTE | 2019-09-27 13:04 | History & Physical Report ---
*Admission Date: 09/27/19 *Chief complaint: Left foot pain, chills *History of present illness: Mrs. Colon presents as a direct admit from podiatry clinic after she presented this morning and was found to have a heart rate of 99 and concern for worsening diabetic ulcer of her left foot. Following obtained from podiatry consult note: "F/u of DM ulcers and a medial malleolus fracture of the left tibia. She still has a small skin ulcer underneath the left great hallux. The one on her right great hallux is "gone". She has been keeping the areas covered with a bandaid. She stated last she started feeling fatigue and had glucose issues all weekend, she stated her glucose has been in the 400s this weekend. She finally has got it down to 210 this morning she stated. She stated that Thursday she noticed her foot had puss (yellowish/pinkish color) from it and she has had to change the dressings 2-3 times daily since then. She presents in a wheelchair with her fx boot on. She stated when she walks on her foot she feels sharp pains in the heel and where the ulcer is on the top part of her foot. She is unsure if she has had a fever this weekend, she has had "body chills and sweats but did not check temp". She stated she had Clindamycin left over from a previous visit from her PCP, sos he had taken a couple this weekend. "Patient has new ulcer to dorsal left foot and b/l sub 1st met ulcers. There is significant edema, erythema, and drainage from new dorsal left foot ulcer. Plan of care was discussed with Dr. Soria, who will admit. Plan for infection labs and pre op testing: CBC, CMP, ESR, CRP, Ha1c, wound culture, CXR, EKG. Also discussed the patient with Dr. Pedersen radiologist who recommends CT with contrast to evaluate for abscess of the left foot." Noted to have heart rate of 99 yet be afebrile in clinic today for podiatry. Initial labs obtained showing white count greater than 16,000. ESR and CRP significantly elevated greater than 140 and 30 respectively. Admitted to medicine with podiatry consult. Patient currently meeting sepsis criteria given presumed infection in left foot concerning for osteomyelitis. [facility] History I have reviewed the patient's past medical history: Yes 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: Reports:: Anxiety, Coronary Artery Disease, Diabetes Mellitus Type 2, Hyperlipidemia, Hypertension, MRSA, Myocardial Infarction Denies:: Asthma, Cancer, Chronic Obstructive Pulmonary Disease (COPD), Diabetes Mellitus Type 1, Internal Pacemaker, Seizures *Have you ever received a pneumonia vaccine?: No *Have you received a flu vaccine this season?: Yes Other 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: Reports: Arthritis, Fibromyalgia, Other. Denies: Blood Transfusion Reaction Laterality Cases: Other Surgeries: Yes: No Previous Surgery, Appendectomy, Cardiac Catheterization, Cholecystectomy, Colonoscopy, Hysterectomy-Total, Other. No: Pacemaker Amputation: No Fractures: No - *Social History Smoking Status: Never smoker # Packs/Day (cigarettes): 0 #Yrs smoked (if former smoker): 25 Alcohol Intake: never Alcohol Intake Frequency:: other Substance Use Type: denies use *Occupational Status:: unemployed Housing: house Household Members: family *Travel in the last 8 weeks: None - Psychiatric History Pschychiatric History:: Reports:: Anxiety Family Hx:: Cancer, Diabetes, Hypertension Review of Systems - Review of Systems Review of systems:: pertinent systems reviewed and negative unless documented below - *Neurologic Reports tingling/numbness/burning sensations, Denies abnormal hearing Meds Home Medications Medication Instructions Recorded Confirmed Type carvedilol 6.25 mg tablet 6.25 mg PO BID 30 Days #60 12/28/17 09/27/19 History duloxetine 60 mg capsule,delayed 60 mg PO BID 30 Days #60 12/28/17 09/27/19 History release glipizide 5 mg tablet 10 mg PO BID 30 Days #120 12/28/17 09/27/19 History isosorbide mononitrate ER 60 mg 60 mg PO DAILY 30 Days #30 12/28/17 09/27/19 History tablet,extended release 24 hr liraglutide 0.6 mg/0.1 mL (18 mg/3 1.2 mg SQ DAILY 30 Days #9 12/28/17 09/27/19 History mL) subcutaneous pen injector pregabalin 225 mg capsule 225 mg PO BID 30 Days #60 12/28/17 09/27/19 History atorvastatin 40 mg tablet 40 mg PO HS 30 Days #30 03/01/18 09/27/19 History Cholecalciferol (Vitamin D3) 50,000 unit PO WEEKLY 04/15/18 09/27/19 History [Vitamin D3 50,000 unit Cap] Insulin Glargine,Hum.rec.anlog 70 units SQ HS 06/08/18 09/27/19 History [Insulin Glargine 100 Units/mL 3mL flexpen] tramadol 50 mg tablet 50 mg PO QID 30 Days #120 06/23/18 09/27/19 History Hydrocodone/Acetaminophen 2 each PO Q6H 02/03/19 09/27/19 History [Hydrocodone-Acetamin 10-325 mg] Ramipril 10 mg PO DAILY 02/03/19 09/27/19 History Trazodone HCl 50 - 100 mg PO HS 02/03/19 09/27/19 History Aspirin 81 mg PO DAILY 04/08/19 09/27/19 History Ibuprofen [Ibuprofen 800mg 800 mg PO DAILY 09/27/19 09/27/19 History Tablet] Urea 1 applic TOPICAL BID 09/27/19 09/27/19 History Allergies Allergy/AdvReac Type Severity Reaction Status Date / Time amoxicillin [AMOXICILLIN] Allergy Unknown Unknown Verified 09/27/19 08:26 allergy reaction codeine [CODEINE] AdvReac Mild STOMACH Verified 09/27/19 08:26 CRAMPS morphine [MORPHINE] AdvReac Mild STOMACH Verified 09/27/19 08:26 CRAMPS oxycodone [From Percocet] AdvReac Mild STOMACH Verified 09/27/19 08:26 CRAMPS Exam Vital signs and Labs for Last 24 Hours: Laboratory Results - last 24 hr 09/27/19 10:02: PT 9.6, INR 0.92 09/27/19 10:02: WBC 16.1 H, RBC 3.75 L, Hgb 9.7 L, Hct 31.6 L, MCV 84.4, MCH 26.0 L, MCHC 30.8 L, RDW 16.0, Plt Count 336, MPV 9.3, Neut % (Auto) 80.5 H, Lymph % (Auto) 11.5, [place] % (Auto) 6.8, Eos % (Auto) 0.9, Baso % (Auto) 0.3, Neut # (Auto) 12.9 H, Lymph # (Auto) 1.9, [place] # (Auto) 1.1 H, Eos # (Auto) 0.2, Baso # (Auto) 0.0, Total Counted 100, Neutrophils % (Manual) 77 H, Lymphocytes % (Manual) 18, Monocytes % (Manual) 5, Platelet Estimate Normal, RBC Morphology Not Reportable, Hypochromasia 1+, Anisocytosis 1+, ESR > 140 H 09/27/19 10:02: Sodium 133 L, Potassium 4.5, Chloride 99, Carbon Dioxide 27, Anion Gap 11.5, BUN 33 H, Creatinine 0.94, Estimated GFR 63, Est GFR ( Amer) 76, Glucose 242 H, Calcium 8.9, Total Bilirubin 0.3, AST 7 L, ALT 13, Alkaline Phosphatase 135 H, C-Reactive Protein 30.6 H, Total Protein 6.5, Albumin 2.0 L, Globulin 4.5 H, Albumin/Globulin Ratio 0.4 L - Constitutional no acute distress, morbidly obese - *Routine HEENT Exam Head: Present: normocephalic Eye: Present: EOMI, PERRL ENT: Present: mucous membranes moist - *Routine Neck Exam Present: supple. Absent: lymphadenopathy - *Routine Respiratory Exam Present: CTA bilaterally - *Routine Cardiovascular Exam Present: RRR - *Routine Abdominal Exam Present: soft, normoactive bowel sounds. Absent: tenderness - *Routine Extremities Exam Absent: cyanosis Comments: Minimal edema bilateral lower extremities, left foot in red bandage with Charcot deformity. - *Routine Skin Exam Present: warm. Absent: rash - *Routine Neurological Exam Present: alert, oriented X3 Assessment and Plan (1) Cellulitis of left foot Start date: 09/27/19 Current visit: Yes Status: Acute Category: Medical Code(s): L03.116 - Cellulitis of left lower limb (2) Left foot infection Start date: 09/27/19 Current visit: Yes Status: Acute Category: Medical Code(s): L08.9 - Local infection of the skin and subcutaneous tissue, unspecified (3) Ulcer of left foot due to type 2 diabetes mellitus Current visit: Yes Status: Acute Category: Medical Code(s): E11.621 - Type 2 diabetes mellitus with foot ulcer; L97.529 - Non-pressure chronic ulcer of other part of left foot with unspecified severity (4) Ulcer of right foot due to type 2 diabetes mellitus Current visit: Yes Status: Acute Category: Medical Code(s): E11.621 - Type 2 diabetes mellitus with foot ulcer; L97.519 - Non-pressure chronic ulcer of other part of right foot with unspecified severity (5) Encounter for wound care Current visit: No Status: Acute Category: Medical Code(s): Z51.89 - Encounter for other specified aftercare (6) Essential hypertension Current visit: No Status: Acute Category: Medical Code(s): I10 - Essential (primary) hypertension (7) Obesity, Class III, BMI 40-49.9 (morbid obesity) Current visit: No Status: Acute Category: Medical Code(s): E66.01 - Morbid (severe) obesity due to excess calories (8) Type 2 diabetes mellitus with Charcot's joint of left foot Current visit: No Status: Acute Category: Medical Code(s): E11.610 - Type 2 diabetes mellitus with diabetic neuropathic arthropathy (9) Type 2 diabetes mellitus with Charcot's joint of right foot Current visit: No Status: Acute Category: Medical Code(s): E11.610 - Type 2 diabetes mellitus with diabetic neuropathic arthropathy (10) Vitamin D deficiency Current visit: No Status: Acute Category: Medical Code(s): E55.9 - Vitamin D deficiency, unspecified (11) Hx MRSA infection Current visit: Yes Status: Acute Category: Medical Code(s): Z86.14 - Personal history of Methicillin resistant Staphylococcus aureus infection (12) CAD (coronary artery disease) Current visit: Yes Status: Acute Category: Medical Code(s): I25.10 - Atherosclerotic heart disease of [place] coronary artery without angina pectoris (13) Hyperlipemia Current visit: Yes Status: Acute Category: Medical Code(s): E78.5 - Hyperlipidemia, unspecified (14) History of myocardial infarction Current visit: Yes Status: Acute Category: Medical Code(s): I25.2 - Old myocardial infarction (15) Sepsis Current visit: Yes Status: Acute Category: Medical Code(s): A41.9 - Sepsis, unspecified organism Patient was tachycardic in clinic with heart rate of 99, white count greater than 16,000, presumed infection with cellulitis versus osteomyelitis of left foot. Meeting criteria for sepsis. Initiated on broad-spectrum antibiotics. Cultures obtained. Monitor for improvement. Planning for debridement and potential surgical removal of hardware from left foot in the morning - Assessment and plan all Dx Assessment and Plan for all problems:: 49-year-old female with worsening Charcot deformity of both feet. Presents with significant worsening of wound on left foot. Necessitating surgical debridement. Meeting criteria for sepsis today. Initiated on antibiotics. Cultures obtained. Podiatry plans to take to the OR tomorrow for exploration of wound and hopefully source control. Continues to require inpatient management. Antibiotic duration pending determination of osteomyelitis versus cellulitis. PICC to be placed today. Further management and antibiotic stewardship based on findings tomorrow in the OR.
--- NOTE | 2019-09-27 13:21 | Pharmacy Consult Notes ---
- Pharmacy Consult Date: 09/27/19 Time: 13:19 Referring provider: DR. VALENTINO/DR. MOREJON Reason for Consult:: VANCOMYCIN DOSING Allergies and ADEs:: Allergies Allergy/AdvReac Type Severity Reaction Status Date / Time amoxicillin [AMOXICILLIN] Allergy Unknown Unknown Verified 09/27/19 08:26 allergy reaction codeine [CODEINE] AdvReac Mild STOMACH Verified 09/27/19 08:26 CRAMPS morphine [MORPHINE] AdvReac Mild STOMACH Verified 09/27/19 08:26 CRAMPS oxycodone [From Percocet] AdvReac Mild STOMACH Verified 09/27/19 08:26 CRAMPS Home Medications:: Home Medications Medication Instructions Recorded Confirmed Type carvedilol 6.25 mg tablet 6.25 mg PO BID 30 Days #60 12/28/17 09/27/19 History duloxetine 60 mg capsule,delayed 60 mg PO BID 30 Days #60 12/28/17 09/27/19 History release glipizide 5 mg tablet 10 mg PO BID 30 Days #120 12/28/17 09/27/19 History isosorbide mononitrate ER 60 mg 60 mg PO DAILY 30 Days #30 12/28/17 09/27/19 History tablet,extended release 24 hr liraglutide 0.6 mg/0.1 mL (18 mg/3 1.2 mg SQ DAILY 30 Days #9 12/28/17 09/27/19 History mL) subcutaneous pen injector pregabalin 225 mg capsule 225 mg PO BID 30 Days #60 12/28/17 09/27/19 History atorvastatin 40 mg tablet 40 mg PO HS 30 Days #30 03/01/18 09/27/19 History Cholecalciferol (Vitamin D3) 50,000 unit PO WEEKLY 04/15/18 09/27/19 History [Vitamin D3 50,000 unit Cap] Insulin Glargine,Hum.rec.anlog 70 units SQ HS 06/08/18 09/27/19 History [Insulin Glargine 100 Units/mL 3mL flexpen] tramadol 50 mg tablet 50 mg PO QID 30 Days #120 06/23/18 09/27/19 History ibuprofen 800 mg tablet 800 mg PO BID #60 tab 11/02/18 09/27/19 Rx Hydrocodone/Acetaminophen 1 each PO Q6H 02/03/19 09/27/19 History [Hydrocodone-Acetamin 10-325 mg] Ramipril 10 mg PO DAILY 02/03/19 09/27/19 History Trazodone HCl 50 - 100 mg PO HS 02/03/19 09/27/19 History Aspirin 81 mg PO DAILY 04/08/19 09/27/19 History urea 40 % topical cream 1 applic TOPICAL BID #60 applic 08/23/19 09/27/19 Rx Height: 1.68 m Weight: 132.08 kg Laboratory Results:: Laboratory Results - last 24 hr 09/27/19 10:02: PT 9.6, INR 0.92 09/27/19 10:02: WBC 16.1 H, RBC 3.75 L, Hgb 9.7 L, Hct 31.6 L, MCV 84.4, MCH 26.0 L, MCHC 30.8 L, RDW 16.0, Plt Count 336, MPV 9.3, Neut % (Auto) 80.5 H, Lymph % (Auto) 11.5, [place] % (Auto) 6.8, Eos % (Auto) 0.9, Baso % (Auto) 0.3, Neut # (Auto) 12.9 H, Lymph # (Auto) 1.9, [place] # (Auto) 1.1 H, Eos # (Auto) 0.2, Baso # (Auto) 0.0, Total Counted 100, Neutrophils % (Manual) 77 H, Lymphocytes % (Manual) 18, Monocytes % (Manual) 5, Platelet Estimate Normal, RBC Morphology Not Reportable, Hypochromasia 1+, Anisocytosis 1+, ESR > 140 H 09/27/19 10:02: Sodium 133 L, Potassium 4.5, Chloride 99, Carbon Dioxide 27, Anion Gap 11.5, BUN 33 H, Creatinine 0.94, Estimated GFR 63, Est GFR ( Amer) 76, Glucose 242 H, Calcium 8.9, Total Bilirubin 0.3, AST 7 L, ALT 13, Alkaline Phosphatase 135 H, C-Reactive Protein 30.6 H, Total Protein 6.5, Albumin 2.0 L, Globulin 4.5 H, Albumin/Globulin Ratio 0.4 L 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: Reports:: Anxiety, Coronary Artery Disease, Diabetes Mellitus Type 2, Hyperlipidemia, Hypertension, MRSA, Myocardial Infarction Denies:: Asthma, Cancer, Chronic Obstructive Pulmonary Disease (COPD), Diabetes Mellitus Type 1, Internal Pacemaker, Seizures Assessment and Plan (1) Cellulitis of left foot Start date: 09/27/19 Current visit: Yes Status: Acute Category: Medical Code(s): L03.116 - Cellulitis of left lower limb (2) Left foot infection Start date: 09/27/19 Current visit: Yes Status: Acute Category: Medical Code(s): L08.9 - Local infection of the skin and subcutaneous tissue, unspecified (3) Ulcer of left foot due to type 2 diabetes mellitus Current visit: Yes Status: Acute Category: Medical Code(s): E11.621 - Type 2 diabetes mellitus with foot ulcer; L97.529 - Non-pressure chronic ulcer of other part of left foot with unspecified severity (4) Ulcer of right foot due to type 2 diabetes mellitus Current visit: Yes Status: Acute Category: Medical Code(s): E11.621 - Type 2 diabetes mellitus with foot ulcer; L97.519 - Non-pressure chronic ulcer of other part of right foot with unspecified severity (5) Encounter for wound care Current visit: No Status: Acute Category: Medical Code(s): Z51.89 - Encounter for other specified aftercare (6) Essential hypertension Current visit: No Status: Acute Category: Medical Code(s): I10 - Essential (primary) hypertension (7) Obesity, Class III, BMI 40-49.9 (morbid obesity) Current visit: No Status: Acute Category: Medical Code(s): E66.01 - Morbid (severe) obesity due to excess calories (8) Type 2 diabetes mellitus with Charcot's joint of left foot Current visit: No Status: Acute Category: Medical Code(s): E11.610 - Type 2 diabetes mellitus with diabetic neuropathic arthropathy (9) Type 2 diabetes mellitus with Charcot's joint of right foot Current visit: No Status: Acute Category: Medical Code(s): E11.610 - Type 2 diabetes mellitus with diabetic neuropathic arthropathy (10) Vitamin D deficiency Current visit: No Status: Acute Category: Medical Code(s): E55.9 - Vitamin D deficiency, unspecified (11) Hx MRSA infection Current visit: Yes Status: Acute Category: Medical Code(s): Z86.14 - Personal history of Methicillin resistant Staphylococcus aureus infection (12) CAD (coronary artery disease) Current visit: Yes Status: Acute Category: Medical Code(s): I25.10 - Atherosclerotic heart disease of [place] coronary artery without angina pectoris (13) Hyperlipemia Current visit: Yes Status: Acute Category: Medical Code(s): E78.5 - Hyperlipidemia, unspecified (14) History of myocardial infarction Current visit: Yes Status: Acute Category: Medical Code(s): I25.2 - Old myocardial infarction - Assessment and plan all Dx Assessment and Plan for all problems:: BASED ON PATIENT FACTORS, RECOMMEND VANCOMYCIN 2500 MG IV Q18H. PHARMACY WILL FOLLOW DAILY AND ADJUST APPROPRIATE.
[2019-09-27 14:11] LABS: Activated Partial Thrombo Time 27.5 seconds (23.6-34.0); INR 0.91 (0.9-1.1); Prothrombin Time 9.5 seconds (9.4-11.8)
--- NOTE | 2019-09-27 14:56 | Pharmacy Consult Notes ---
[facility] Pharmacy VTE Monitoring - Patient Demographics Admission date: 09/27/19 Report Date: 09/27/19 Time: 14:55 Allergies/Adverse Reactions: Patient Allergies amoxicillin [AMOXICILLIN] Allergy (Unknown, Verified 09/27/19 08:26) Unknown allergy reaction codeine [CODEINE] Adverse Reaction (Mild, Verified 09/27/19 08:26) STOMACH CRAMPS morphine [MORPHINE] Adverse Reaction (Mild, Verified 09/27/19 08:26) STOMACH CRAMPS oxycodone [From Percocet] Adverse Reaction (Mild, Verified 09/27/19 08:26) STOMACH CRAMPS Height: 1.68 m Weight: 132.08 kg Patient Problems: Current Active Problems Cellulitis of left foot (Acute) Left foot infection (Acute) Ulcer of left foot due to type 2 diabetes mellitus (Acute) Ulcer of right foot due to type 2 diabetes mellitus (Acute) Hx MRSA infection (Acute) CAD (coronary artery disease) (Acute) Hyperlipemia (Acute) History of myocardial infarction (Acute) - VTE Risk Labs: VTE Related Lab Results Hgb 9.7 g/dL (12.2-16.2) L 09/27/19 10:02 Hct 31.6 % (37.0-47.0) L 09/27/19 10:02 Plt Count 336 K/mm3 (142-424) 09/27/19 10:02 PT 9.5 seconds (9.4-11.8) 09/27/19 13:41 INR 0.91 (0.9-1.1) 09/27/19 13:41 APTT 27.5 seconds (23.6-34.0) 09/27/19 13:41 BUN 33 mg/dL (7-18) H 09/27/19 10:02 Creatinine 0.94 mg/dL (0.55-1.02) 09/27/19 10:02 VTE Score: 8 VTE Risk Level: Moderate Risk - Prophylaxis VTE Prophylaxis Ordered?: Yes Types of VTE Prophylaxis: TEDS Knee High, IPCS Thigh High Location of Applied Device: Right Leg
[2019-09-28 06:32] LABS: Basophils # 0.1 K/mm3 (0-0.2); Basophils % 0.5 % (0.1-2.0); Eosinophils # 0.4 K/mm3 (0.0-0.4); Eosinophils % 2.7 % (0.1-12.0); Hematocrit 30.7 % (37.0-47.0); Hemoglobin 9.4 g/dL (12.2-16.2); Lymphocytes # 2.8 K/mm3 (0.7-4.5); Mean Corpuscular HGB Conc 30.7 g/dL (31.8-35.4); Mean Corpuscular Volume 84.9 fl (81-99); Mean Platelet Volume 9.5 fl (7.4-10.4); Neutrophils # 8.6 K/mm3 (1.8-7.8); Neutrophils % 66.7 % (37.0-80.0); Platelet Count 312 K/mm3 (142-424); Red Blood Count 3.62 M/mm3 (4.20-5.40); Red Cell Distribution Width 16.3 % (11.5-17.5); White Blood Count 12.8 K/mm3 (4.8-10.8)
--- NOTE | 2019-09-28 07:08 | Progress Note ---
[facility] Anesthesia Checklist - Structural Data Admitted From: Inpatient Planned Operative Procedure/s: i/d l foot Consent for Planned Operative Procedure(s) Verified: Yes - Additional verifications Anesthesia Reactions: No Hx Blood Transfusions: No Blood Transfusion Reaction: No - Airway Assessment C-Spine Mobility Assessed: Yes TMJ Mobility Assessed: Yes Dentition: Good Dentition - Neurological Assessment Level of Consciousness: Awake, Alert, Appropriate - Anesthesia Plan Anesthesia Risk discussed: Yes Anesthesia Plan: Verified ASA Class: III Anesthesia Type: General [facility] History I have reviewed the patient's past medical history: Yes 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: Reports:: Anxiety, Coronary Artery Disease, Diabetes Mellitus Type 2, Hyperlipidemia, Hypertension, MRSA, Myocardial Infarction Denies:: Asthma, Cancer, Chronic Obstructive Pulmonary Disease (COPD), Diabetes Mellitus Type 1, Internal Pacemaker, Seizures *Have you ever received a pneumonia vaccine?: Yes *Have you received a flu vaccine this season?: Yes Other 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: Reports: Arthritis, Fibromyalgia, Other. Denies: Blood Transfusion Reaction Anesthesia experience/problems:: none Laterality Cases: Bilateral: Arthroscopy Knee, Arthroscopy Shoulder, Other Other Surgeries: Yes: No Previous Surgery, Appendectomy, Cardiac Catheterization, Cholecystectomy, Colonoscopy, Hysterectomy-Total, Other. No: Pacemaker Amputation: No Fractures: No - *Social History Smoking Status: Former smoker # Packs/Day (cigarettes): 0 #Yrs smoked (if former smoker): 25 Alcohol Intake: never Alcohol Intake Frequency:: other Substance Use Type: denies use *Occupational Status:: unemployed Housing: house Household Members: family *Travel in the last 8 weeks: None - Psychiatric History Pschychiatric History:: Reports:: Anxiety Family Hx:: Cancer, Diabetes, Hypertension
--- NOTE | 2019-09-28 08:34 | Operative Note ---
Date of procedure: 09/28/19 Pre-op Diagnosis:: 1. Left foot infection 2. Left foot abscess 3. Left foot cellulitis 4. Left foot possible osteomyelitis Post-op Diagnosis:: Same Procedure performed:: 1. Left foot incision and drainage 2. Left foot wound debridement 3. Left foot hardware removal 4. Left foot open bone biospy 5. Application/insertion of antibiotic beads 6. Right foot wound dressing change Surgeon:: Dione Castro DPM REGISTERED RESPIRATORY THERAPIST:: Apolinar Carranza Anesthesia: LMA Estimated blood loss (mL): 20 Clinical Note:: Patient was seen in the clinic yesterday 09/27/2019 with a new dorsal wound and a red hot swollen foot. She was admitted under Dr. Soria for sepsis protocol. Patient was evaluated with labs and CT for possible abscess and osteomyelitis. Decision was made to take the patient to the operating room for I&D and removal of hardware. Operative findings:: Purulence expressed from dorsal ulcer and over the medial foot over the 1st metatarsal cuneiform joint. ~20 cc purulence thick milky. Mild malodor. Tracking from dorsal ulcer to 1st metatarsal plate. Tracking anterior and proximal along the plate and extensor tendon. Post debridement the dorsal ulcer was 100% fibrotic and measured 0.7 x 0.8 cm and tract 2.0cm full thickness to the level of the bone. Post debridement the sub-first metatarsal ulcer wound base was 100% granular and measured 0.6 x 0.5 x 0.2 cm. There was no purulence or evidence of infection from the plantar ulcer. Operative note:: On this date and time the patient was deemed an appropriate surgical candidate. With informed consent time patient was well for the preoperative holding her to the operating theater placed on table normal supine position. Left lower extremity was prepped and draped in normal sterile fashion. Left foot incision and drainage: Attention was directed to the dorsal foot where edema and erythema were noted. MRI changes suspicious to the ankle as well as posterior heel. A stab incision was made over the anterior medial and anterior lateral ankle gutters. Dissection was carried down bluntly to the level of the joint. No purulence expressed. Minor synovitis noted. Attention was then directed to the posterior heel just distal to the plantar fascia insertion on the calcaneus. Stab incision was made and dissection carried deeply. No evidence of purulence at this level. These areas were flushed with normal sterile saline and the skin repaired with 3-0 Prolene. Attention was then directed to the dorsal foot where new ulcer was noted. The area was compressed and immediately 10 cc of malodorous purulent discharge was expressed. Wound culture taken. Left foot hardware removal: The medial incision was then dissected down to the level of the hardware. An abscess pus pocket was noted which connected from the dorsal ulcer tracking to the plate. Another 10 cc of purulence expressed from dorsal ulcer and over the medial foot over the 1st metatarsal cuneiform joint. Tracking from dorsal ulcer to 1st metatarsal plate. Tracking anterior and proximal along the plate and extensor tendon.[employer] medial column Charcot plate with 4 screws was removed in total. 2 L of bacitracin irrigation using a pulse lavage to flush the area. Left foot open bone biopsy: At this point attention was directed to the first metatarsal cuneiform joint which appears to be fused. A rondure was used to take a piece of the first metatarsal and half was sent for bone culture and half for bone pathology. 1 L of bacitracin irrigation was then used to flush the area again. Area was reexplored and no more purulence or signs of infection noted. Decision was made to leave the intramedullary fixation in place as the bone did not appear to be acutely infected. There is no purulence from the bone itself. The bone was hard in texture and the color was normal. The area of infection seem to be isolated to the soft tissues. 2-0 Vicryl was used to reapproximate subcutaneous tissue and an interrupted fashion. Application/insertion of antibiotic beads: The OsteoSet antibiotic beads were then prepared and inserted where the plate and screws were taken out. Antibiotic beads were also inserted into the dorsal ulceration post debridement. Post debridement the dorsal ulcer measured 0.7 x 0.8 cm and tract 2.0cm full thickness to the level of the bone. The medial incision skin was reapproximated with 3-0 Prolene in interrupted mattress fashion. Skin ixomara were also utilized along the medial incision. An area over the abscess site was left open for packing. Left wound/ulcer debridement: Next attention was directed to the plantar foot where an ulcer was noted under the first metatarsal. This area was also sharply excisionally debrided through the skin into subcutaneous tissue with 15 blade. Post debridement the sub-first metatarsal ulcer wound base was 100% granular and measured 0.6 x 0.5 x 0.2 cm. There was no purulence or evidence of infection from the plantar ulcer. Betadine soaked iodophor packing was inserted into the dorsal medial opening. Dressing was then applied over the left foot. Right foot wound dressing change: Attention was directed to the right foot once the left foot procedure was over and sterile dressing in place. There was an ulcer noted to the right sub-first metatarsal. This was not debrided in the OR. A new Betadine dressing was applied to the right foot. Patient was woken from anesthesia with vitals stable and neurovascular status intact to be transferred to recovery before being transferred to the floor. Materials: [facility] antibiotic beads Betadine soaked 1/2" packing Plan: Maintain dressing clean dry and intact to left foot, reinforce as necessary PICC, IV antibiotics Case management consult: IV antibiotics and wound care To see patient tomorrow bedside for wound reevaluation. Discussed possible wound VAC in future X-rays left foot and ankle, 3 views Tourniquet time (min): 0 Condition: stable Disposition: floor Specimens:: 1. Left foot wound culture x 2 2. Left 1st metatarsal bone culture 3. Left 1st metatarsal bone biopsypathology Complications:: None
--- NOTE | 2019-09-28 08:34 | Progress Note ---
[facility] Anesthesia Checklist - Patient Identification Patient Identification: Arm Band, Verbal (Name & ) - Structural Data Admitted From: Inpatient Planned Operative Procedure/s: i and d left foot Consent for Planned Operative Procedure(s) Verified: Yes Verified Documents: History and Physical - NPO Status Verified Time NPO: 00:00 - Additional verifications Patient : No Anesthesia Reactions: No Hx Blood Transfusions: No Blood Transfusion Reaction: No Cephalosporin Allergy: No Previous Colonoscopy: No - Cardiovascular Assessment Heart Sounds: S1 & S2 Pulse Strength: Baseline Pulse Rhythm: Regular Peripheral Edema: No - Airway Assessment C-Spine Mobility Assessed: Yes TMJ Mobility Assessed: Yes Dentition: Good Dentition - Neurological Assessment Level of Consciousness: Awake, Alert, Appropriate Hx Seizures: No Numbness or tingling in extremities: No - Anesthesia Plan Anesthesia Risk discussed: Yes Anesthesia Plan: Verified ASA Class: III Anesthesia Type: General [facility] History 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: Reports:: Anxiety, Coronary Artery Disease, Diabetes Mellitus Type 2, Hyperlipidemia, Hypertension, MRSA, Myocardial Infarction Denies:: Asthma, Cancer, Chronic Obstructive Pulmonary Disease (COPD), Diabetes Mellitus Type 1, Internal Pacemaker, Seizures *Have you ever received a pneumonia vaccine?: Yes *Have you received a flu vaccine this season?: Yes Other 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: Reports: Arthritis, Fibromyalgia, Other. Denies: Blood Transfusion Reaction Anesthesia experience/problems:: none Laterality Cases: Bilateral: Arthroscopy Knee, Arthroscopy Shoulder, Other Other Surgeries: Yes: No Previous Surgery, Appendectomy, Cardiac Catheterization, Cholecystectomy, Colonoscopy, Hysterectomy-Total, Other. No: Pacemaker Amputation: No Fractures: No - *Social History Smoking Status: Former smoker # Packs/Day (cigarettes): 0 #Yrs smoked (if former smoker): 25 Alcohol Intake: never Alcohol Intake Frequency:: other Substance Use Type: denies use *Occupational Status:: unemployed Housing: house Household Members: family *Travel in the last 8 weeks: None - Psychiatric History Pschychiatric History:: Reports:: Anxiety Family Hx:: Cancer, Diabetes, Hypertension
--- NOTE | 2019-09-28 08:35 | Progress Note ---
[facility] Anesthesia Record Part II Discharge Time: 09:00 Destination: Medical Surgical Department PACU nurse assessment reviewed?: Yes Patient Condition:: Fair Anesthesia Complications:: None Swallowing reflex intact?: Yes Cyanosis?: No
--- NOTE | 2019-09-28 08:36 | Progress Note ---
[facility] Anesthesia Record Part I Intake, IV Amount: 400 Estimated blood loss (mL): 10 Urine output (mL): 0 Blood Products used (#): none Blood Pressure: 163/91 SaO2: 96 Pulse Rate: 94 Respiratory Rate: 20 Temperature: 97.6 F Patient is:: Drowsy, Nasal O2, Stable Stable to PACU at:: 08:30
--- NOTE | 2019-09-28 13:54 | Progress Note ---
Internal Medicine - PN: Subj *Date: 09/28/19 *Time: 13:53 Interval history: Patient postoperative status from debridement of foot wound. I reviewed operative note. Exam Vital signs and Labs for Last 24 Hours: Temp Pulse Resp BP Pulse Ox 99.3 F 102 H 20 122/62 93 L 09/28/19 13:35 09/28/19 13:35 09/28/19 13:35 09/28/19 13:35 09/28/19 13:35 Laboratory Results - last 24 hr 09/27/19 13:41: PT 9.5, INR 0.91, APTT 27.5 09/27/19 13:41: Lactate 0.8 09/27/19 16:43: POC Glucose 322 H* 09/27/19 21:08: POC Glucose 267 H 09/28/19 05:44: POC Glucose 204 H 09/28/19 06:20: WBC 12.8 H, RBC 3.62 L, Hgb 9.4 L, Hct 30.7 L, MCV 84.9, MCH 26.1 L, MCHC 30.7 L, RDW 16.3, Plt Count 312, MPV 9.5, Neut % (Auto) 66.7, Lymph % (Auto) 22.0, [place] % (Auto) 8.0, Eos % (Auto) 2.7, Baso % (Auto) 0.5, Neut # (Auto) 8.6 H, Lymph # (Auto) 2.8, [place] # (Auto) 1.0, Eos # (Auto) 0.4, Baso # (Auto) 0.1 09/28/19 06:20: Hemoglobin A1c 8.9 H 09/28/19 11:20: POC Glucose 321 H* I & O for Last 24 hours: Intake & Output 09/26/19 09/27/19 09/28/19 09/29/19 11:59 11:59 11:59 11:59 Intake Total 1360 / 1360 Output Total 100 / 100 Balance 1260 / 1260 Weight 292 lb 2.011 oz Microbiology Reports for the Last 24 Hours: Microbiology 09/27/19 Unknown Foot,Left Gram Stain - Final 09/27/19 Unknown Foot,Left Wound Culture - Preliminary Narrative: Patient is awake, alert, in good spirits. Feels fatigued. No cardiopulmonary symptoms. Lungs clear, heart rate regular. Foot dressing dry and intact. Assessment and Plan (1) Cellulitis of left foot Start date: 09/27/19 Current visit: Yes Status: Acute Category: Medical Code(s): L03.116 - Cellulitis of left lower limb (2) Left foot infection Start date: 09/27/19 Current visit: Yes Status: Acute Category: Medical Code(s): L08.9 - Local infection of the skin and subcutaneous tissue, unspecified (3) Ulcer of left foot due to type 2 diabetes mellitus Current visit: Yes Status: Acute Category: Medical Code(s): E11.621 - Type 2 diabetes mellitus with foot ulcer; L97.529 - Non-pressure chronic ulcer of other part of left foot with unspecified severity (4) Ulcer of right foot due to type 2 diabetes mellitus Current visit: Yes Status: Acute Category: Medical Code(s): E11.621 - Type 2 diabetes mellitus with foot ulcer; L97.519 - Non-pressure chronic ulcer of other part of right foot with unspecified severity (5) Encounter for wound care Current visit: No Status: Acute Category: Medical Code(s): Z51.89 - Encounter for other specified aftercare (6) Essential hypertension Current visit: No Status: Acute Category: Medical Code(s): I10 - Essential (primary) hypertension (7) Obesity, Class III, BMI 40-49.9 (morbid obesity) Current visit: No Status: Acute Category: Medical Code(s): E66.01 - Morbid (severe) obesity due to excess calories (8) Type 2 diabetes mellitus with Charcot's joint of left foot Current visit: No Status: Acute Category: Medical Code(s): E11.610 - Type 2 diabetes mellitus with diabetic neuropathic arthropathy (9) Type 2 diabetes mellitus with Charcot's joint of right foot Current visit: No Status: Acute Category: Medical Code(s): E11.610 - Type 2 diabetes mellitus with diabetic neuropathic arthropathy (10) Vitamin D deficiency Current visit: No Status: Acute Category: Medical Code(s): E55.9 - Vitamin D deficiency, unspecified (11) Hx MRSA infection Current visit: Yes Status: Acute Category: Medical Code(s): Z86.14 - Personal history of Methicillin resistant Staphylococcus aureus infection (12) CAD (coronary artery disease) Current visit: Yes Status: Acute Category: Medical Code(s): I25.10 - Atherosclerotic heart disease of [place] coronary artery without angina pectoris (13) Hyperlipemia Current visit: Yes Status: Acute Category: Medical Code(s): E78.5 - Hyperlipidemia, unspecified (14) History of myocardial infarction Current visit: Yes Status: Acute Category: Medical Code(s): I25.2 - Old myocardial infarction (15) Sepsis Current visit: Yes Status: Acute Category: Medical Code(s): A41.9 - Sepsis, unspecified organism - Assessment and plan all Dx Assessment and Plan for all problems:: No major changes in plan over the past 24 hours. Foot surgery was not as extensive as needed and fortunately hardware was able to be left in place. Continue antibiotics. Await cultures, check labs tomorrow.
--- NOTE | 2019-09-28 17:50 | Progress Note ---
Subjective Date: 09/28/19 <Shagufta Bustos - 09/28/19 18:03> Time: 14:15 <Shagufta Bustos - 09/28/19 18:03> Principal diagnosis: left foot cellulitis <Shagufta Bustos - 09/28/19 18:03> Interval history: Patient is resting in bed with no complaints of pain at this time.S/P surgery. Family is at the bedside.Patient was seen in the clinic yesterday 09/27/2019 with a new dorsal wound and a red hot swollen foot. She was admitted under Dr. Soria for sepsis protocol. Patient was evaluated with labs and CT for possible abscess and osteomyelitis. Decision was made to take the patient to the operating room for I&D and removal of hardware. <Shagufta Bustos - 09/28/19 18:03> PN: Obj Ex Vital signs: Temp Pulse Resp BP Pulse Ox 98.7 F 102 H 17 154/66 H 98 09/29/19 07:48 09/29/19 07:48 09/29/19 07:48 09/29/19 07:48 09/29/19 07:48 <Dione Castro - 09/29/19 09:15> Temp Pulse Resp BP Pulse Ox 98.8 F 92 H 20 113/69 92 L 09/28/19 16:35 09/28/19 16:35 09/28/19 16:35 09/28/19 16:35 09/28/19 16:35 <Shagufta Bustos - 09/28/19 18:03> - Constitutional no acute distress <Shagufta Bustos - 09/28/19 18:03> - Routine HEENT Exam Head: Present: normocephalic <Shagufta Bustos - 09/28/19 18:03> ENT: Present: mucous membranes moist <Shagufta Bustos - 09/28/19 18:03> - Routine Neck Exam Present: full ROM. Absent: JVD <Shagufta Bustos - 09/28/19 18:03> - Routine Respiratory Exam Absent: accessory muscle use, respiratory distress <Shagufta Bustos - 09/28/19 18:03> - Routine Cardiovascular Exam Present: RRR <Shagufta Bustos - 09/28/19 18:03> - Routine Abdominal Exam Present: obese <Shagufta Bustos - 09/28/19 18:03> - Routine Extremities Exam Comments: Unable to assess her feet are legs are covered with surgical dressing, which remains intact and no visible drainage noted. 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 2 - Right foot coverd in surgical dressing with toes exposed, skin pink and warm. <Shagufta Bustos - 09/28/19 18:03> - Routine Back/Spine/Pelvis Exam Back/Spine: Present: full ROM <Shagufta Bustos - 09/28/19 18:03> - Routine Skin Exam Present: warm <Shagufta Bustos - 09/28/19 18:03> - Routine Neurological Exam Present: oriented X3 <Shagufta Bustos - 09/28/19 18:03> - Routine Psychiatric Exam Present: normal affect, cooperative <Shagufta Bustos - 09/28/19 18:03> Progress Note: A&P (1) Cellulitis of left foot Status: Acute Current Visit: Yes (2) Left foot infection Status: Acute Current Visit: Yes (3) Ulcer of left foot due to type 2 diabetes mellitus Status: Acute Current Visit: Yes (4) Ulcer of right foot due to type 2 diabetes mellitus Status: Acute Current Visit: Yes (5) Encounter for wound care Status: Acute Current Visit: No (6) Essential hypertension Status: Acute Current Visit: No (7) Obesity, Class III, BMI 40-49.9 (morbid obesity) Status: Acute Current Visit: No (8) Type 2 diabetes mellitus with Charcot's joint of left foot Status: Acute Current Visit: No (9) Type 2 diabetes mellitus with Charcot's joint of right foot Status: Acute Current Visit: No (10) Vitamin D deficiency Status: Acute Current Visit: No (11) Hx MRSA infection Status: Acute Current Visit: Yes (12) CAD (coronary artery disease) Status: Acute Current Visit: Yes (13) Hyperlipemia Status: Acute Current Visit: Yes (14) History of myocardial infarction Status: Acute Current Visit: Yes (15) Sepsis Status: Acute Current Visit: Yes <Shagufta Bustos - 09/29/19 09:01> (1) Cellulitis of left foot Status: Acute Current Visit: Yes (2) Left foot infection Status: Acute Current Visit: Yes (3) Ulcer of left foot due to type 2 diabetes mellitus Status: Acute Current Visit: Yes (4) Ulcer of right foot due to type 2 diabetes mellitus Status: Acute Current Visit: Yes (5) Encounter for wound care Status: Acute Current Visit: No (6) Essential hypertension Status: Acute Current Visit: No (7) Obesity, Class III, BMI 40-49.9 (morbid obesity) Status: Acute Current Visit: No (8) Type 2 diabetes mellitus with Charcot's joint of left foot Status: Acute Current Visit: No (9) Type 2 diabetes mellitus with Charcot's joint of right foot Status: Acute Current Visit: No (10) Vitamin D deficiency Status: Acute Current Visit: No (11) Hx MRSA infection Status: Acute Current Visit: Yes (12) CAD (coronary artery disease) Status: Acute Current Visit: Yes (13) Hyperlipemia Status: Acute Current Visit: Yes (14) History of myocardial infarction Status: Acute Current Visit: Yes (15) Sepsis Status: Acute Current Visit: Yes <Dione Castro - 09/29/19 09:15> Assessment and Plan for All Diagnoses:: Physician Attestation I have read the office note that was documented by the staff and/or CONCRETE CRUS[employer] LOADER OPERATOR and agree with the documentation. <Dione Castro - 09/29/19 09:15> 1. Patient to rest in bed tonight and PT to assist her to sitting NWB in fracture boot. 2. Continue IV antibiotics as per PCP. 3. Podiatry will round on the patient in the morning to do dressing change and assess the site. 4. Patient will be going home tomorrow if she does well through the night. 5. Incentive spirometer while awake. <Shagufta Bustos - 09/28/19 18:03>
--- NOTE | 2019-09-28 21:24 | Electrocardiograph Report ---
APPROVED REPORT Exam: Resting ECG HR:86 bpm ECG Measurements Heart Rate 86 AXES GA 152 P 7 QRSd 102 QRS -6 QT 374 T39 QTc 447 <Conclusion> Sinus rhythm with occasional premature ventricular complexes Otherwise normal ECG Electronically signed by : Apolinar Odonnell, 09/28/2019 21:23:44
[2019-09-29 06:25] LABS: Basophils # 0.1 K/mm3 (0-0.2); Basophils % 0.6 % (0.1-2.0); Eosinophils # 0.3 K/mm3 (0.0-0.4); Hematocrit 27.6 % (37.0-47.0); Hemoglobin 8.7 g/dL (12.2-16.2); Lymphocytes # 2.5 K/mm3 (0.7-4.5); Lymphocytes % 21.6 % (10-50); Mean Corpuscular HGB Conc 31.6 g/dL (31.8-35.4); Mean Corpuscular Volume 83.3 fl (81-99); Mean Platelet Volume 8.8 fl (7.4-10.4); Monocytes # 0.7 K/mm3 (0.1-1.0); Monocytes % 6.5 % (1.7-9.3); Neutrophils # 7.8 K/mm3 (1.8-7.8); Neutrophils % 68.3 % (37.0-80.0); Platelet Count 320 K/mm3 (142-424); Red Blood Count 3.31 M/mm3 (4.20-5.40); Red Cell Distribution Width 16.1 % (11.5-17.5); White Blood Count 11.4 K/mm3 (4.8-10.8)
[2019-09-29 07:05] LABS: Anion Gap 8.1 mEq/L (5-15); Calcium 8.5 mg/dL (8.5-10.1)
--- NOTE | 2019-09-29 08:20 | Progress Note ---
Subjective Date: 09/29/19 <Shagufta Bustos - 09/29/19 08:22> Time: 07:45 <Shagufta Bustos - 09/29/19 08:22> Principal diagnosis: left foot cellulitis <Shagufta Bustos - 09/29/19 08:22> Interval history: Patient doing well this morning, states she is having some pain in her left foot, but reports sleeping well through the night. Patient is afebrile this morning but did run a low grade temp around 10 pm last night and received some Tylenol for that. Patient will have her dressings changed this morning and will educate the patient on how to change her dressings at home. Patient will be ready for discharge at some point today. She will need to be set up for daily IV antibiotics therapy outpatient. <Shagufta Bustos - 09/29/19 08:22> PN: Obj Ex Vital signs: Temp Pulse Resp BP Pulse Ox 98.7 F 102 H 17 154/66 H 98 09/29/19 07:48 09/29/19 07:48 09/29/19 07:48 09/29/19 07:48 09/29/19 07:48 <Dione Castro - 09/29/19 10:53> Temp Pulse Resp BP Pulse Ox 98.7 F 102 H 17 154/66 H 98 09/29/19 07:48 09/29/19 07:48 09/29/19 07:48 09/29/19 07:48 09/29/19 07:48 <Shagufta Bustos - 09/29/19 08:22> - Constitutional no acute distress <Shagufta Bustos - 09/29/19 08:37> - Routine HEENT Exam Head: Present: normocephalic <Shagufta Bustos - 09/29/19 08:37> ENT: Present: mucous membranes moist <Shagufta Bustos - 09/29/19 08:37> - Routine Neck Exam Present: full ROM. Absent: JVD <Shagufta Bustos - 09/29/19 08:37> - Routine Respiratory Exam Absent: respiratory distress <Shagufta Bustos - 09/29/19 08:37> - Routine Cardiovascular Exam Present: RRR <Shagufta Bustos - 09/29/19 08:37> - Routine Abdominal Exam Present: obese <Shagufta Bustos - 09/29/19 08:37> - Routine Extremities Exam Present: tenderness. Absent: calf tenderness <Shagufta Bustos - 09/29/19 08:37> - Detailed Lower Extremity Exam Comments: Left dorsal ulcer was 100% fibrotic and measured 0.7 x 0.8 cm and tract 2.0cm full thickness to the level of the bone. Antibiotic beads in place to dorsal ulcer and opening left over the plate. The remaining incision has sutures and xiomara intact. Overall edema and erythema has improved. Mild drainage note to dorsal ulcer. The sub-first metatarsal ulcer wound base was 100% granular and measured 0.6 x 0.5 x 0.2 cm. There was no purulence or evidence of infection from the plantar ulcer. Right sub 1st met ulcer: 10% granular wound base and measures 0.6 x 0.4 x 0.2cm. No SOI. <Dione Castro - 09/29/19 09:24> - Routine Back/Spine/Pelvis Exam Back/Spine: Present: full ROM <Shagufta Bustos - 09/29/19 08:37> - Routine Skin Exam Present: dry, warm <Shagufta Bustos 09/29/19 08:37> - Routine Neurological Exam Present: oriented X3 <Shagufta Bustos 09/29/19 08:37> - Routine Psychiatric Exam Present: normal affect, cooperative <Shagufta Bustos 09/29/19 08:37> Progress Note: A&P (1) Cellulitis of left foot Status: Acute Current Visit: Yes (2) Left foot infection Status: Acute Current Visit: Yes (3) Ulcer of left foot due to type 2 diabetes mellitus Status: Acute Current Visit: Yes (4) Ulcer of right foot due to type 2 diabetes mellitus Status: Acute Current Visit: Yes (5) Encounter for wound care Status: Acute Current Visit: No (6) Essential hypertension Status: Acute Current Visit: No (7) Obesity, Class III, BMI 40-49.9 (morbid obesity) Status: Acute Current Visit: No (8) Type 2 diabetes mellitus with Charcot's joint of left foot Status: Acute Current Visit: No (9) Type 2 diabetes mellitus with Charcot's joint of right foot Status: Acute Current Visit: No (10) Vitamin D deficiency Status: Acute Current Visit: No (11) Hx MRSA infection Status: Acute Current Visit: Yes (12) CAD (coronary artery disease) Status: Acute Current Visit: Yes (13) Hyperlipemia Status: Acute Current Visit: Yes (14) History of myocardial infarction Status: Acute Current Visit: Yes (15) Sepsis Status: Acute Current Visit: Yes <Dione Castro - 09/29/19 10:53> (1) Cellulitis of left foot Start date: 09/29/19 Start time: 07:45 Status: Acute Current Visit: Yes (2) Left foot infection Start date: 09/29/19 Start time: 08:32 Status: Acute Current Visit: Yes (3) Ulcer of left foot due to type 2 diabetes mellitus Status: Acute Current Visit: Yes (4) Ulcer of right foot due to type 2 diabetes mellitus Status: Acute Current Visit: Yes (5) Encounter for wound care Status: Acute Current Visit: No (6) Essential hypertension Status: Acute Current Visit: No (7) Obesity, Class III, BMI 40-49.9 (morbid obesity) Status: Acute Current Visit: No (8) Type 2 diabetes mellitus with Charcot's joint of left foot Status: Acute Current Visit: No (9) Type 2 diabetes mellitus with Charcot's joint of right foot Status: Acute Current Visit: No (10) Vitamin D deficiency Status: Acute Current Visit: No (11) Hx MRSA infection Status: Acute Current Visit: Yes (12) CAD (coronary artery disease) Status: Acute Current Visit: Yes (13) Hyperlipemia Status: Acute Current Visit: Yes (14) History of myocardial infarction Status: Acute Current Visit: Yes (15) Sepsis Status: Acute Current Visit: Yes <Shagufta Bustos - 09/29/19 09:35> Assessment and Plan for All Diagnoses:: Physician Attestation I was present during all of the critical components of the office visit. The patient was seen, evaluated and examined by me. I have read the office note that was documented by the staff and/or NUT FORMER and agree with the documentation. Discussed plan of care with Dr. Soria. Will arrange for IV Zyvox x 6-8 weeks based on final wound culture, bone culture and pathology. Also discussed IV v ersus oral antibiotics for gram-negative coverage until final cultures result. Educated the patient on signs and symptoms of infection. Also educated the patient showed her how to do dressing changes. She states she would prefer that her and her mother to the dressing changes. 20 minutes spent with patient, education given. <Dione Castro - 09/29/19 10:53> Plan: 1.Dressing change done today, the patient was instructed how to do her dressing changes at home. 2.Clean the site with Betadine, Use 1/4 " idioform packing gauze soaked in betadine, cover with Betadine soaked gauze, dry 4x4 gauze, cover with kerlix and guillermo wrap. 3. IV antibiotics Per PCP. 4. WB as tolerated to her Right Lower extremity; NWB to her Left lower extremity (Patient already has a walker at home). 5. Home Later today. 6. Incentive spirometer and Ice pack as needed behind the knee. 7. Follow up in the Podiatry office on Thursday at 0840. <Shagufta Bustos - 09/29/19 09:34>
--- NOTE | 2019-09-29 08:55 | Discharge Summary ---
General - General Admission date:: 09/27/19 Discharge date: 09/29/19 HPI HPI: Mrs. Colon presents as a direct admit from podiatry clinic after she presented this morning and was found to have a heart rate of 99 and concern for worsening diabetic ulcer of her left foot. Following obtained from podiatry consult note: "F/u of DM ulcers and a medial malleolus fracture of the left tibia. She still has a small skin ulcer underneath the left great hallux. The one on her right great hallux is "gone". She has been keeping the areas covered with a bandaid. She stated last she started feeling fatigue and had glucose issues all weekend, she stated her glucose has been in the 400s this weekend. She finally has got it down to 210 this morning she stated. She stated that Thursday she noticed her foot had puss (yellowish/pinkish color) from it and she has had to change the dressings 2-3 times daily since then. She presents in a wheelchair with her fx boot on. She stated when she walks on her foot she feels sharp pains in the heel and where the ulcer is on the top part of her foot. She is unsure if she has had a fever this weekend, she has had "body chills and sweats but did not check temp". She stated she had Clindamycin left over from a previous visit from her PCP, sos he had taken a couple this weekend. "Patient has new ulcer to dorsal left foot and b/l sub 1st met ulcers. There is significant edema, erythema, and drainage from new dorsal left foot ulcer. Plan of care was discussed with Dr. Soria, who will admit. Plan for infection labs and pre op testing: CBC, CMP, ESR, CRP, Ha1c, wound culture, CXR, EKG. Also discussed the patient with Dr. Pedersen radiologist who recommends CT with contrast to evaluate for abscess of the left foot." Noted to have heart rate of 99 yet be afebrile in clinic today for podiatry. Initial labs obtained showing white count greater than 16,000. ESR and CRP significantly elevated greater than 140 and 30 respectively. Admitted to medicine with podiatry consult. Patient currently meeting sepsis criteria given presumed infection in left foot concerning for osteomyelitis. Hospital Course Hospital Course: Admitted to medicine for management of diabetic ulcer on left foot and Charcot foot bilaterally. Podiatry was consulted. Taken to the OR for treatment after placement of PICC and initiation of IV antibiotics. Aggressive debridement performed on the left foot with removal of plate. Tissue samples taken for culture which so far have shown gram-positive cocci growth. Bone tissue is well was sampled to assess for osteo-however imaging was not significant for concern for osteomyelitis at this time. On admission patient's vitals and labs met criteria for sepsis. Her vitals have defervesced with continued mild hypertension and remained afebrile. White count improving. Inflammatory markers significantly improved but still elevated. Wound was redressed the day after surgery with plan to discharge home to continue daily dressing changes per podiatry recommendations. Additionally patient will continue broad-spectrum antibiotics consisting of cefepime twice daily for a week and vancomycin approximately every 18 hours for anticipated 6 to 8 weeks. Plan to follow-up with podiatry in a week and her PCP as well. Patient stable to go home. Has help with her parents who can help with wound management and pick care/antibiotic administration. Remained hemodynamically stable. Denies chest pain, shortness of breath, nausea, vomiting. Pain well controlled. Stressed the significance of reevaluating diabetic management and control with her primary care as her A1c was elevated in the mid 8 range. Patient stated understanding. Medically stable for discharge home. Objective Vital signs: Temp Pulse Resp BP Pulse Ox 98.7 F 102 H 17 154/66 H 98 09/29/19 07:48 09/29/19 07:48 09/29/19 07:48 09/29/19 07:48 09/29/19 07:48 Narrative: Patient is awake, alert, in good spirits; NAD on RA. RRR, no murmur, trace edema Lungs clear, no wheeze or rhonchi Foot dressing dry and intact on Bilateral feet. Results Labs on day of discharge: Labs from last 24 hours 09/29/19 09/29/19 09/29/19 06:10 06:10 06:10 WBC RBC Hgb Hct MCV MCH MCHC RDW Plt Count MPV Neut % (Auto) Lymph % (Auto) Blair % (Auto) Eos % (Auto) Baso % (Auto) Neut # (Auto) Lymph # (Auto) Blair # (Auto) Eos # (Auto) Baso # (Auto) ESR 129 H Sodium 134 L Potassium 4.1 Chloride 101 Carbon Dioxide 29 Anion Gap 8.1 BUN 23 H D Creatinine 1.05 H Estimated Creat Clear 59 Estimated GFR 55 L Est GFR ( Amer) 67 Glucose 229 H POC Glucose Hemoglobin A1c Calcium 8.5 C-Reactive Protein 15.3 H D 09/29/19 09/29/19 09/28/19 06:10 05:59 15:35 WBC 11.4 H RBC 3.31 L Hgb 8.7 L Hct 27.6 L MCV 83.3 MCH 26.3 L MCHC 31.6 L RDW 16.1 Plt Count 320 MPV 8.8 Neut % (Auto) 68.3 Lymph % (Auto) 21.6 Blair % (Auto) 6.5 Eos % (Auto) 3.0 Baso % (Auto) 0.6 Neut # (Auto) 7.8 Lymph # (Auto) 2.5 Blair # (Auto) 0.7 Eos # (Auto) 0.3 Baso # (Auto) 0.1 ESR Sodium Potassium Chloride Carbon Dioxide Anion Gap BUN Creatinine Estimated Creat Clear Estimated GFR Est GFR ( Amer) Glucose POC Glucose 248 H 367 H* Hemoglobin A1c Calcium C-Reactive Protein 09/28/19 09/28/19 11:20 06:20 WBC RBC Hgb Hct MCV MCH MCHC RDW Plt Count MPV Neut % (Auto) Lymph % (Auto) Blair % (Auto) Eos % (Auto) Baso % (Auto) Neut # (Auto) Lymph # (Auto) Blair # (Auto) Eos # (Auto) Baso # (Auto) ESR Sodium Potassium Chloride Carbon Dioxide Anion Gap BUN Creatinine Estimated Creat Clear Estimated GFR Est GFR ( Amer) Glucose POC Glucose 321 H* Hemoglobin A1c 8.9 H Calcium C-Reactive Protein Preliminary micro results at discharge 09/28/19 07:36 Abscess Culture - Preliminary Foot,Left - Abscess Gram Positive Cocci 09/27/19 Unknown Wound Culture - Preliminary Foot,Left Gram Positive Cocci DS: Diagnosis - Discharge Diagnosis (1) Cellulitis of left foot Status: Acute (2) Left foot infection Status: Acute (3) Ulcer of left foot due to type 2 diabetes mellitus Status: Acute (4) Ulcer of right foot due to type 2 diabetes mellitus Status: Acute (5) Encounter for wound care Status: Acute (6) Essential hypertension Status: Acute (7) Obesity, Class III, BMI 40-49.9 (morbid obesity) Status: Acute (8) Type 2 diabetes mellitus with Charcot's joint of left foot Status: Acute (9) Type 2 diabetes mellitus with Charcot's joint of right foot Status: Acute (10) Vitamin D deficiency Status: Acute (11) Hx MRSA infection Status: Acute (12) CAD (coronary artery disease) Status: Acute (13) Hyperlipemia Status: Acute (14) History of myocardial infarction Status: Acute (15) Sepsis Status: Acute Discharge Plan - Patient Discharge Instructions ACTIVITY: Limited activity DIET: continue same diet Patient Instructions: DI for Diabetic Foot Ulcer, Incision and Drainage of a Skin Abscess, DI for Surgical Site Infection, DI for Sepsis -- Adult - Follow up Plan Follow up with: Dione Castro DPM [Staff Physician] - 10/04/19 8:40 am Diego Lynch [Primary Care Provider] - Disposition: Home Health Service Home Medications: Home Medications Medication Instructions Recorded Confirmed Type carvedilol 6.25 mg tablet 6.25 mg PO BID 30 Days #60 12/28/17 09/27/19 History duloxetine 60 mg capsule,delayed 60 mg PO BID 30 Days #60 12/28/17 09/27/19 History release glipizide 5 mg tablet 10 mg PO BID 30 Days #120 12/28/17 09/27/19 History isosorbide mononitrate ER 60 mg 60 mg PO DAILY 30 Days #30 12/28/17 09/27/19 History tablet,extended release 24 hr liraglutide 0.6 mg/0.1 mL (18 mg/3 1.2 mg SQ DAILY 30 Days #9 12/28/17 09/27/19 History mL) subcutaneous pen injector pregabalin 225 mg capsule 225 mg PO BID 30 Days #60 12/28/17 09/27/19 History atorvastatin 40 mg tablet 40 mg PO HS 30 Days #30 03/01/18 09/27/19 History Cholecalciferol (Vitamin D3) 50,000 unit PO WEEKLY 04/15/18 09/27/19 History [Vitamin D3 50,000 unit Cap] Insulin Glargine,Hum.rec.anlog 70 units SQ HS 06/08/18 09/27/19 History [Insulin Glargine 100 Units/mL 3mL flexpen] tramadol 50 mg tablet 50 mg PO QID 30 Days #120 06/23/18 09/27/19 History Hydrocodone/Acetaminophen 2 each PO Q6H 02/03/19 09/27/19 History [Hydrocodone-Acetamin 10-325 mg] Ramipril 10 mg PO DAILY 02/03/19 09/27/19 History Trazodone HCl 50 - 100 mg PO HS 02/03/19 09/27/19 History Aspirin 81 mg PO DAILY 04/08/19 09/27/19 History Ibuprofen [Ibuprofen 800mg 800 mg PO DAILY 09/27/19 09/27/19 History Tablet] Urea 1 applic TOPICAL BID 09/27/19 09/27/19 History Cefepime HCl in Dextrose 5 % 1 gm IV BID 6 Days #12 piggyback 09/29/19 Rx [Cefepime-Dextrose 1 gm/50 ml] Vancomycin HCl 2.5 gm IV Q18H 42 Days vial 09/29/19 Rx Prescriptions/Medication Reconciliation: New Vancomycin HCl 2.5 gm IV Q18H 42 Days vial Cefepime HCl in Dextrose 5 % [Cefepime-Dextrose 1 gm/50 ml] 1 gm IV BID 6 Days #12 piggyback Continued liraglutide 0.6 mg/0.1 mL (18 mg/3 mL) subcutaneous pen injector 1.2 mg SQ DAILY 30 Days #9 duloxetine 60 mg capsule,delayed release 60 mg PO BID 30 Days #60 isosorbide mononitrate ER 60 mg tablet,extended release 24 hr 60 mg PO DAILY 30 Days #30 carvedilol 6.25 mg tablet 6.25 mg PO BID 30 Days #60 glipizide 5 mg tablet 10 mg PO BID 30 Days #120 pregabalin 225 mg capsule 225 mg PO BID 30 Days #60 atorvastatin 40 mg tablet 40 mg PO HS 30 Days #30 tramadol 50 mg tablet 50 mg PO QID 30 Days #120 Ramipril 10 mg PO DAILY Trazodone HCl 50 - 100 mg PO HS Hydrocodone/Acetaminophen [Hydrocodone-Acetamin 10-325 mg] 2 each PO Q6H Urea 1 applic TOPICAL BID Cholecalciferol (Vitamin D3) [Vitamin D3 50,000 unit Cap] 50,000 unit PO WEEKLY Insulin Glargine,Hum.rec.anlog [Insulin Glargine 100 Units/mL 3mL flexpen] 70 units SQ HS Aspirin 81 mg PO DAILY Ibuprofen [Ibuprofen 800mg Tablet] 800 mg PO DAILY - Problem Reconciliation Problems Reviewed?: Yes
--- NOTE | 2019-09-29 09:49 | Progress Note ---
Internal Medicine - PN: Subj *Date: 09/29/19 *Time: 09:48 Exam Vital signs and Labs for Last 24 Hours: Temp Pulse Resp BP Pulse Ox 98.7 F 102 H 17 154/66 H 98 09/29/19 07:48 09/29/19 07:48 09/29/19 07:48 09/29/19 07:48 09/29/19 07:48 Laboratory Results - last 24 hr 09/28/19 11:20: POC Glucose 321 H* 09/28/19 15:35: POC Glucose 367 H* 09/29/19 05:59: POC Glucose 248 H 09/29/19 06:10: WBC 11.4 H, RBC 3.31 L, Hgb 8.7 L, Hct 27.6 L, MCV 83.3, MCH 26.3 L, MCHC 31.6 L, RDW 16.1, Plt Count 320, MPV 8.8, Neut % (Auto) 68.3, Lymph % (Auto) 21.6, Rogers % (Auto) 6.5, Eos % (Auto) 3.0, Baso % (Auto) 0.6, Neut # (Auto) 7.8, Lymph # (Auto) 2.5, Rogers # (Auto) 0.7, Eos # (Auto) 0.3, Baso # (Auto) 0.1 09/29/19 06:10: Sodium 134 L, Potassium 4.1, Chloride 101, Carbon Dioxide 29, Anion Gap 8.1, BUN 23 H D, Creatinine 1.05 H, Estimated Creat Clear 59, Estimated GFR 55 L, Est GFR ( Amer) 67, Glucose 229 H, Calcium 8.5 09/29/19 06:10: ESR 129 H 09/29/19 06:10: C-Reactive Protein 15.3 H D I & O for Last 24 hours: Intake & Output 09/26/19 09/27/19 09/28/19 09/29/19 23:59 23:59 23:59 23:59 Intake Total 720 / 960 1120 / 1120 610 / 610 Output Total 100 / 100 300 / 300 Balance 620 / 860 1120 / 1120 310 / 310 Weight 132.08 kg 132.506 kg 132.506 kg Microbiology Reports for the Last 24 Hours: Microbiology 09/28/19 07:26 Foot,Left - Abscess Gram Stain - Final 09/28/19 07:26 Foot,Left - Abscess Abscess Culture - Preliminary Gram Positive Cocci 09/28/19 07:36 Foot,Left - Abscess Gram Stain - Final 09/28/19 07:36 Foot,Left - Abscess Abscess Culture - Preliminary Gram Positive Cocci 09/27/19 Unknown Foot,Left Gram Stain - Final 09/27/19 Unknown Foot,Left Wound Culture - Preliminary Gram Positive Cocci Assessment and Plan (1) Cellulitis of left foot Start date: 09/29/19 Start time: 07:45 Current visit: Yes Status: Acute Category: Medical Code(s): L03.116 - Cellulitis of left lower limb (2) Left foot infection Start date: 09/29/19 Start time: 08:32 Current visit: Yes Status: Acute Category: Medical Code(s): L08.9 - Local infection of the skin and subcutaneous tissue, unspecified (3) Ulcer of left foot due to type 2 diabetes mellitus Current visit: Yes Status: Acute Category: Medical Code(s): E11.621 - Type 2 diabetes mellitus with foot ulcer; L97.529 - Non-pressure chronic ulcer of other part of left foot with unspecified severity (4) Ulcer of right foot due to type 2 diabetes mellitus Current visit: Yes Status: Acute Category: Medical Code(s): E11.621 - Type 2 diabetes mellitus with foot ulcer; L97.519 - Non-pressure chronic ulcer of other part of right foot with unspecified severity (5) Encounter for wound care Current visit: No Status: Acute Category: Medical Code(s): Z51.89 - Encounter for other specified aftercare (6) Essential hypertension Current visit: No Status: Acute Category: Medical Code(s): I10 - Essential (primary) hypertension (7) Obesity, Class III, BMI 40-49.9 (morbid obesity) Current visit: No Status: Acute Category: Medical Code(s): E66.01 - Morbid (severe) obesity due to excess calories (8) Type 2 diabetes mellitus with Charcot's joint of left foot Current visit: No Status: Acute Category: Medical Code(s): E11.610 - Type 2 diabetes mellitus with diabetic neuropathic arthropathy (9) Type 2 diabetes mellitus with Charcot's joint of right foot Current visit: No Status: Acute Category: Medical Code(s): E11.610 - Type 2 diabetes mellitus with diabetic neuropathic arthropathy (10) Vitamin D deficiency Current visit: No Status: Acute Category: Medical Code(s): E55.9 - Vitamin D deficiency, unspecified (11) Hx MRSA infection Current visit: Yes Status: Acute Category: Medical Code(s): Z86.14 - Personal history of Methicillin resistant Staphylococcus aureus infection (12) CAD (coronary artery disease) Current visit: Yes Status: Acute Category: Medical Code(s): I25.10 - Atherosclerotic heart disease of [place] coronary artery without angina pectoris (13) Hyperlipemia Current visit: Yes Status: Acute Category: Medical Code(s): E78.5 - Hyperl ipidemia, unspecified (14) History of myocardial infarction Current visit: Yes Status: Acute Category: Medical Code(s): I25.2 - Old myocardial infarction (15) Sepsis Current visit: Yes Status: Acute Category: Medical Code(s): A41.9 - Sepsis, unspecified organism The patient's infection will respond to the chosen ABx?: Yes Is the patient receiving the right drug, dose, and route?: Yes Could a more targeted ABx be ordered?: No (WBC IMPROVED. AFEBRILE, RECOMMEND CONTINUING CURRENT ABX.)
== END 2019-09-29 21:38 | disposition home health service (06) | DRG 478 ==
LOC: 2ND 09:46 → OR 09:46 → OBSVTOIN 09:47
PROVIDERS: ADMIT Podiatrist; ATTEND Internal Medicine Adolescent Medicine
CPT/HCPCS: 36415; 36569; 71010; 71020; 71045; 71046; 73610; 73620; 73630; 73702; 76000; 80048; 80053; 80202; 82962; 83036; 83605; 85007; 85025; 85610; 85651; 85730; 86140; 87040; 87070; 87075; 87077; 87186; 87205; 88307; 88311; 93005; C1713; C1751; J0692; J3370; Q9967

== ENCOUNTER → 2019-10-07 21:36 | Outpatient (CLI) | payer BC, SELFPAY ==
[2019-10-07 22:15] LABS: Alanine Aminotransferase 15 U/L (12-78); Albumin Level 2.2 gm/dL (3.4-5.0); Albumin/Globulin Ratio 0.5 (1.1-1.8); Alkaline Phosphatase 99 U/L (46-116); Anion Gap 10.1 mEq/L (5-15); Aspartate Amino Transferase 17 U/L (15-37); Bilirubin,Total 0.2 mg/dL (0.2-1.0); Blood Urea Nitrogen 19 mg/dL (7-18); C-Reactive Protein 2.7 mg/dL (0.0-0.9); Calcium 8.3 mg/dL (8.5-10.1); Carbon Dioxide 29 mmol/L (21.0-32.0); Chloride 103 mmol/L (98-107); Creatinine,Serum 1.08 mg/dL (0.55-1.02); Estimated Glomerular Filt Rate 53 ml/min (>60); GFR (African American) 65 ML/MIN (>60); Globulin 4.7 gm/dl (1.3-3.2); Glucose 153 mg/dL (74-106); Potassium 5.1 mmoL/L (3.5-5.1); Sodium 137 mmol/L (136-145); Total Protein,Serum 6.9 gm/dL (6.4-8.2)
[2019-10-07 22:17] LABS: Vancomycin,Trough 18.3 mcg/ml (10.0-20.0)
== END ==
LOC: LAB 21:46 → LAB.DROPOF 21:47
PROVIDERS: PCP Internal Medicine; Visit Provider Internal Medicine Adolescent Medicine
DX: L03.116 Cellulitis of left lower limb (principal); L08.9 Local infection of the skin and subcutaneous tissue, unspecified; E11.621 Type 2 diabetes mellitus with foot ulcer; R78.81 Bacteremia
CPT/HCPCS: 80053; 80202; 86140

== ENCOUNTER → 2019-10-17 15:16 | Outpatient (CLI) | payer BC, SELFPAY ==
[2019-10-17 17:13] LABS: Vancomycin,Trough 24.5 mcg/ml (10.0-20.0)
== END ==
PROVIDERS: Visit Provider Internal Medicine
DX: L03.116 Cellulitis of left lower limb (principal); Z51.81 Encounter for therapeutic drug level monitoring
CPT/HCPCS: 80202

== ENCOUNTER → 2019-10-18 09:38 | Outpatient (CLI) | payer BC, SELFPAY ==
[2019-10-18 10:07] LABS: Basophils # 0.1 K/mm3 (0-0.2); Basophils % 0.8 % (0.1-2.0); Eosinophils # 0.7 K/mm3 (0.0-0.4); Eosinophils % 8.1 % (0.1-12.0); Hematocrit 29.9 % (37.0-47.0); Hemoglobin 9.1 g/dL (12.2-16.2); Lymphocytes # 2.3 K/mm3 (0.7-4.5); Mean Corpuscular HGB Conc 30.3 g/dL (31.8-35.4); Mean Corpuscular Hemoglobin 25.2 pg (27.0-31.2); Mean Corpuscular Volume 83.1 fl (81-99); Monocytes # 0.4 K/mm3 (0.1-1.0); Monocytes % 5.3 % (1.7-9.3); Neutrophils # 4.9 K/mm3 (1.8-7.8); Neutrophils % 58.7 % (37.0-80.0); Platelet Count 345 K/mm3 (142-424); Red Cell Distribution Width 15.5 % (11.5-17.5); White Blood Count 8.3 K/mm3 (4.8-10.8)
[2019-10-18 10:46] LABS: Erythrocyte Sedimentation Rate > 140 mm/hr (0-30)
[2019-10-18 11:17] LABS: Alanine Aminotransferase 16 U/L (12-78); Albumin Level 2.7 gm/dL (3.4-5.0); Albumin/Globulin Ratio 0.6 (1.1-1.8); Alkaline Phosphatase 110 U/L (46-116); Anion Gap 12.7 mEq/L (5-15); Aspartate Amino Transferase 13 U/L (15-37); Bilirubin,Total 0.3 mg/dL (0.2-1.0); Blood Urea Nitrogen 22 mg/dL (7-18); Calcium 8.4 mg/dL (8.5-10.1); Carbon Dioxide 27 mmol/L (21.0-32.0); Chloride 104 mmol/L (98-107); Creatinine,Serum 1.25 mg/dL (0.55-1.02); Estimated Glomerular Filt Rate 45 ml/min (>60); GFR (African American) 55 ML/MIN (>60); Globulin 4.7 gm/dl (1.3-3.2); Potassium 4.7 mmoL/L (3.5-5.1); Sodium 139 mmol/L (136-145); Total Protein,Serum 7.4 gm/dL (6.4-8.2); Vancomycin,Trough 16.5 mcg/ml (10.0-20.0)
[2019-10-18 11:36] LABS: Glucose 134 mg/dL (74-106)
== END ==
PROVIDERS: Visit Provider Podiatrist
DX: E08.621 Diabetes mellitus due to underlying condition with foot ulcer (principal); E11.610 Type 2 diabetes mellitus with diabetic neuropathic arthropathy; L97.522 Non-pressure chronic ulcer of other part of left foot with fat layer exposed; L03.116 Cellulitis of left lower limb; Z98.890 Other specified postprocedural states
CPT/HCPCS: 36415; 80053; 80202; 85025; 85651; 86140

== ENCOUNTER → 2019-10-24 13:23 | Outpatient (CLI) | payer BC, SELFPAY ==
[2019-10-24 14:01] LABS: Vancomycin,Trough 15.3 mcg/ml (10.0-20.0)
== END ==
PROVIDERS: PCP Internal Medicine; Visit Provider Internal Medicine
DX: Z51.81 Encounter for therapeutic drug level monitoring (principal)
CPT/HCPCS: 80202

== ENCOUNTER 2019-10-25 11:39 | Outpatient (CLI) | payer BC, SELFPAY ==
[2019-10-25 13:31] VITALS: BMI 46.7
--- NOTE | 2019-10-25 13:33 | XR_ITS ---
PROCEDURE: XR CHEST PORTABLE CLINICAL HISTORY: confirm picc placement COMPARISON: CXR2V XR chest 2V from 12/09/2018 XR CHEST 2V from 09/27/2019 XR CHEST PORTABLE PICC PLAC from 09/27/2019 FINDINGS: The cardiomediastinal silhouette and pulmonary vascularity are within normal limits. The lungs are clear without infiltrates, suspicious nodules, or pleural effusions. No acute bony abnormalities. Left upper extremity approach PICC catheter is seen with the distal tip projecting at junction of SVC and right atrium. There is no pneumothorax. IMPRESSION: No acute findings. PICC line tip at junction of SVC and right atrium. Dictated by: Pablo Nam 10/25/2019 14:25 Electronically signed by Pablo Nam in [facility] 10/25/2019 14:25
--- NOTE | 2019-10-25 13:45 | PC.NURSE ---
1345-xray here to do chest xray
--- NOTE | 2019-10-25 15:00 | PC.NURSE ---
1500-pt to procedure room with jesus alberto colon rn for new picc placement.
--- NOTE | 2019-10-25 15:14 | XR_ITS ---
PROCEDURE: XR CHEST PORTABLE PICC PLAC CLINICAL HISTORY: PICC line placement COMPARISON: XR CHEST 2V from 09/27/2019 XR CHEST PORTABLE PICC PLAC from 09/27/2019 XR CHEST PORTABLE from 10/25/2019 FINDINGS: The cardiomediastinal silhouette and pulmonary vascularity are within normal limits. The lungs are clear without infiltrates, suspicious nodules, or pleural effusions. No acute bony abnormalities. Left upper extremity PICC line has been slightly retracted compared to previous exam. It is now seen with the distal tip at the confluence of left and right brachiocephalic veins. There is no pneumothorax. IMPRESSION: No acute findings. PICC line in place as described. Dictated by: Pablo Nam 10/25/2019 15:42 Electronically signed by Pablo Nam in [facility] 10/25/2019 15:42
== END 2019-10-25 16:00 | disposition home or self-care (01) ==
LOC: INF 11:39
PROVIDERS: PCP Internal Medicine; Visit Provider Podiatrist
DX: E11.621 Type 2 diabetes mellitus with foot ulcer (principal); L97.511 Non-pressure chronic ulcer of other part of right foot limited to breakdown of skin
CPT/HCPCS: 36569; 71045; 96374; C1751

== ENCOUNTER 2019-10-28 15:45 | Outpatient (CLI) | payer BC, SELFPAY ==
[2019-10-28 17:00] VITALS: BMI 46.7
--- NOTE | 2019-10-28 17:01 | XR_ITS ---
PROCEDURE: XR CHEST PORTABLE CLINICAL HISTORY: confirmation of PICC line placement COMPARISON: No exams were available for comparison FINDINGS: The cardiomediastinal silhouette and pulmonary vascularity are within normal limits. The lungs are clear without infiltrates, suspicious nodules, or pleural effusions. No acute bony abnormalities. A PICC line has been inserted by the right subclavian approach. The tip is in satisfactory position in the region of the superior vena cava IMPRESSION: PICC line in good position Dictated by: Hemal Pedersen MD 10/28/2019 17:31 Electronically signed by Hemal Pedersen MD in [place] 10/28/2019 17:31
== END 2019-10-28 17:30 | disposition home or self-care (01) ==
LOC: INF 16:04
PROVIDERS: PCP Internal Medicine; Visit Provider Internal Medicine
DX: L03.116 Cellulitis of left lower limb (principal); L97.522 Non-pressure chronic ulcer of other part of left foot with fat layer exposed; E08.621 Diabetes mellitus due to underlying condition with foot ulcer; Z98.890 Other specified postprocedural states
CPT/HCPCS: 36569; 71045; C1751

== ENCOUNTER → 2019-10-31 16:12 | Outpatient (CLI) | payer BC, SELFPAY ==
[2019-10-31 17:04] LABS: Vancomycin,Trough 16.5 mcg/ml (10.0-20.0)
== END ==
PROVIDERS: Visit Provider Internal Medicine Adolescent Medicine
DX: Z51.81 Encounter for therapeutic drug level monitoring (principal)
CPT/HCPCS: 80202

== ENCOUNTER 2019-11-04 11:35 | Outpatient (CLI) | payer BC, SELFPAY | END 2019-11-04 11:50 | disposition home or self-care (01) | LOC: INF 13:47 | PROVIDERS: PCP Internal Medicine; Visit Provider Internal Medicine | DX: Z45.2 Encounter for adjustment and management of vascular access device (principal) | CPT/HCPCS: 96523 ==

== ENCOUNTER → 2019-11-07 15:56 | Outpatient (CLI) | payer BC, SELFPAY ==
[2019-11-07 17:06] LABS: Vancomycin,Trough 16.6 mcg/ml (10.0-20.0)
== END ==
PROVIDERS: Visit Provider Internal Medicine Adolescent Medicine
DX: Z51.81 Encounter for therapeutic drug level monitoring (principal)
CPT/HCPCS: 80202

== ENCOUNTER → 2019-11-14 10:18 | Outpatient (CLI) | payer BC, SELFPAY ==
[2019-11-14 11:48] LABS: Vancomycin,Trough 13.2 mcg/ml (10.0-20.0)
== END ==
LOC: LAB 10:19 → LAB.DROPOF 10:20
PROVIDERS: Visit Provider Internal Medicine Adolescent Medicine
DX: Z51.81 Encounter for therapeutic drug level monitoring (principal)
CPT/HCPCS: 80202

== ENCOUNTER 2019-11-15 09:37 | Outpatient (CLI) | payer BC, SELFPAY ==
--- NOTE | 2019-11-15 09:42 | XR_ITS ---
PROCEDURE: XR FOOT WT BEARING LT 3V CLINICAL INDICATION: postop views Follow-up surgery COMPARISON: XR FOOT WT BEARING LT 3V from 08/11/2019 XR FOOT WT BEARING LT 3V from 09/19/2019 XR FOOT WT BEARING RT 3V from 09/27/2019 XR FOOT LT MIN 3V from 09/28/2019 FINDINGS: Skin clips are no longer present. The previously placed antibiotic beads are no longer identified. There is patent new fracture involving the proximal aspect of the long lag screw placed from the head of the 1st metatarsal through the 1st metatarsal, medial cuneiform, navicular, and talus. The screw is broken along the distal aspect of the talus with mild inferior angulation of the screw at the fracture site. Pes planus is present slightly worse. Talocalcaneal lag screw and calcaneocuboid screws are unchanged. Navicular cuneiform joint space appears slightly more prominent with less distinction. There is some bony debris along the medial aspect of the talonavicular region IMPRESSION: Postsurgical changes with fracture of the long lag screw at the distal aspect of the talus as described above. Slight increased prominence of the navicular cuneiform joint the Dictated by: Hemal Pedersen MD 11/17/2019 08:17 Electronically signed by Hemal Pedersen MD in [place] 11/17/2019 08:17
--- NOTE | 2019-11-15 09:42 | XR_ITS ---
PROCEDURE: XR FOOT WT BEARING RT 3V CLINICAL INDICATION: postop views Follow-up surgery COMPARISON: XR FOOT WT BEARING LT 3V from 08/11/2019 XR FOOT WT BEARING LT 3V from 09/19/2019 XR FOOT WT BEARING RT 3V from 09/27/2019 XR FOOT LT MIN 3V from 09/28/2019 FINDINGS: Extensive postsurgical changes once again noted as previously described with no change in the prior midfoot fusion, talocalcaneal fusion, calcaneal cuboid fusion. There remains good alignment. Pes planus is present. Other findings:Calcification noted anterior to the ankle joint. IMPRESSION: Overall no change in the extensive postsurgical changes as previously described with good alignment Dictated by: Hemal Pedersen MD 11/17/2019 08:06 Electronically signed by Hemal Pedersen MD in [place] 11/17/2019 08:06
--- NOTE | 2019-11-15 14:45 | PC.NURSE ---
Pt arrived at 1140 with order from MD to flush picc or replace picc line. Instilled cath-marisela at 1203. At 1240 attempted to remove cath marisela which was not successful. At 1300 attempted flushed and taking cath marisela back out. The picc would not flush after the cath marisela without using alot of pressure. The MD was called at 1345 and after discussing the fact that pulling this picc and placing her 4th picc we were not gaurenteed that the next picc would not do the same as the last three that were put in. The MD decided we could pull the picc and they were going to start the patient on oral medications for the next three weeks. The picc issue was a bit alarming in the fact that they cath marisela never seem produce any blood flow. I explained to the MD that we did not feel comfortable placing another one becuase of the fact that the last three were not functioning within 1 week time.
== END 2019-11-15 14:00 | disposition home or self-care (01) ==
LOC: RAD 09:38 → INF 12:01
PROVIDERS: PCP Internal Medicine; Visit Provider Podiatrist
DX: Z98.890 Other specified postprocedural states (principal); E11.610 Type 2 diabetes mellitus with diabetic neuropathic arthropathy; E11.622 Type 2 diabetes mellitus with other skin ulcer; L97.522 Non-pressure chronic ulcer of other part of left foot with fat layer exposed; L08.9 Local infection of the skin and subcutaneous tissue, unspecified
CPT/HCPCS: 73630; 96374; G0463

== ENCOUNTER → 2019-11-28 15:58 | Outpatient (CLI) | payer BC, SELFPAY ==
--- NOTE | 2019-11-28 16:04 | XR_ITS ---
PROCEDURE: XR FOOT WT BEARING LT 3V CLINICAL INDICATION: pain Postsurgical changes, pain, follow-up surgery COMPARISON: XR FOOT WT BEARING RT 3V from 09/27/2019 XR FOOT LT MIN 3V from 09/28/2019 XR FOOT WT BEARING RT 3V from 11/15/2019 XR FOOT WT BEARING LT 3V from 11/15/2019 FINDINGS: Postsurgical changes noted with long lag screw the from the distal aspect of the 1st metacarpal into the mid cuneiform navicular and talus once again noted with fracture of the screw at the distal talar region and minimal inferior angulation at the screw fracture site. Status post fusion talocalcaneal joint with lag screw and status post fusion of the calcaneocuboid joint with 2 screws. Generalized osteoarthritic changes are noted with pes planus and mild superior displacement of the mid cuneiform at the navicular cuneiform joint overall not significantly changed. IMPRESSION: Overall no change status post fusion surgery with fracture of the long lag screw stabilizing the talonavicular cuneiform and 1st metatarsal joint with pes planus Dictated by: Hemal Pedersen MD 11/29/2019 05:19 Electronically signed by Hemal Pedersen MD in [place] 11/29/2019 05:19
--- NOTE | 2019-11-28 16:04 | XR_ITS ---
PROCEDURE: XR FOOT WT BEARING RT 3V CLINICAL INDICATION: pain Pain, follow-up fracture COMPARISON: XR FOOT WT BEARING RT 3V from 09/27/2019 XR FOOT LT MIN 3V from 09/28/2019 XR FOOT WT BEARING RT 3V from 11/15/2019 XR FOOT WT BEARING LT 3V from 11/15/2019 FINDINGS: Status post hindfoot and midfoot fusion . Screws and plates do not appear significantly changed with good alignment. Calcification of the soft tissues anterior and posterior to the ankle joint and os trigonum noted. There is mild pes planus. IMPRESSION: No change status hindfoot and midfoot fusion surgery with no evidence of plate or screw fractures Dictated by: Hemal Pedersen MD 11/29/2019 05:15 Electronically signed by Hemal Pedersen MD in [place] 11/29/2019 05:15
[2019-11-28 16:57] LABS: Basophils # 0.1 K/mm3 (0-0.2); Basophils % 0.9 % (0.1-2.0); Eosinophils # 0.4 K/mm3 (0.0-0.4); Eosinophils % 4.3 % (0.1-12.0); Hematocrit 33.4 % (37.0-47.0); Hemoglobin 10.3 g/dL (12.2-16.2); Lymphocytes # 1.9 K/mm3 (0.7-4.5); Lymphocytes % 23.3 % (10-50); Mean Corpuscular Hemoglobin 25.5 pg (27.0-31.2); Mean Corpuscular Volume 82.5 fl (81-99); Mean Platelet Volume 8.9 fl (7.4-10.4); Monocytes # 0.5 K/mm3 (0.1-1.0); Monocytes % 5.8 % (1.7-9.3); Neutrophils # 5.4 K/mm3 (1.8-7.8); Neutrophils % 65.7 % (37.0-80.0); Platelet Count 295 K/mm3 (142-424); Red Blood Count 4.05 M/mm3 (4.20-5.40); Red Cell Distribution Width 14.9 % (11.5-17.5); White Blood Count 8.2 K/mm3 (4.8-10.8)
[2019-11-28 17:25] LABS: Erythrocyte Sedimentation Rate 104 mm/hr (0-30)
[2019-11-28 18:31] LABS: Alanine Aminotransferase 19 U/L (12-78); Albumin Level 3.1 gm/dL (3.4-5.0); Albumin/Globulin Ratio 0.8 (1.1-1.8); Alkaline Phosphatase 108 U/L (46-116); Aspartate Amino Transferase 11 U/L (15-37); Bilirubin,Total 0.3 mg/dL (0.2-1.0); Blood Urea Nitrogen 22 mg/dL (7-18); C-Reactive Protein 0.9 mg/dL (0.0-0.9); Carbon Dioxide 27 mmol/L (21.0-32.0); Chloride 102 mmol/L (98-107); Creatinine,Serum 0.97 mg/dL (0.55-1.02); Estimated Glomerular Filt Rate 61 ml/min (>60); GFR (African American) 73 ML/MIN (>60); Globulin 3.8 gm/dl (1.3-3.2); Glucose 294 mg/dL (74-106); Sodium 137 mmol/L (136-145); Total Protein,Serum 6.9 gm/dL (6.4-8.2)
== END ==
PROVIDERS: PCP Internal Medicine; Visit Provider Podiatrist
DX: M79.672 Pain in left foot (principal); L08.9 Local infection of the skin and subcutaneous tissue, unspecified
CPT/HCPCS: 36415; 73630; 80053; 85025; 85651; 86140

== ENCOUNTER → 2019-12-12 09:29 | Outpatient (CLI) | payer BC, SELFPAY ==
--- NOTE | 2019-12-12 09:37 | XR_ITS ---
PROCEDURE: XR FOOT WT BEARING LT 3V CLINICAL INDICATION: Left Foot Diabetic Charcot Follow-up surgery COMPARISON: XR FOOT WT BEARING RT 3V from 11/15/2019 XR FOOT WT BEARING LT 3V from 11/15/2019 XR FOOT WT BEARING RT 3V from 11/28/2019 XR FOOT WT BEARING LT 3V from 11/28/2019 FINDINGS: No change status post fusion of the hind and midfoot as described previously. A fractures once again noted involving the proximal aspect the screw which is threaded from the distal aspect of the 1st metatarsal into the medial cuneiform navicular and talus with the fracture occurring at the beginning of the threaded part of the screw at the talonavicular area with mild inferior angulation of the apex of the fracture. There is 1-2 mm medial displacement of the proximal screw fragment. This is best detected on the oblique view. Heterogeneous irregular density noted in the midfoot consistent with Charcot joint. There is some decreased density at the navicular medial cuneiform joint with ill definition of the distal surface of the navicular raising the question of some underlying osteomyelitis. IMPRESSION: 1. Status post hind and midfoot fusion with fractured long lag screw at the talonavicular area as described above. 2. Midfoot Charcot joint with some decreasing density at the navicular cuneiform junction raising the question of underlying osteomyelitis. Dictated by: Hemal Pedersen MD 12/12/2019 12:30 Electronically signed by Hemal Pedersen MD in [place] 12/12/2019 12:30
== END ==
PROVIDERS: PCP Internal Medicine; Visit Provider Nurse Practitioner
DX: M14.672 Charcot's joint, left ankle and foot (principal); Z51.89 Encounter for other specified aftercare
CPT/HCPCS: 73630

== ENCOUNTER → 2019-12-19 09:01 | Outpatient (CLI) | payer BC, SELFPAY ==
--- NOTE | 2019-12-19 09:05 | XR_ITS ---
PROCEDURE: XR FOOT WT BEARING RT 3V CLINICAL INDICATION: postop surgery Follow-up surgery COMPARISON: XR FOOT WT BEARING LT 3V from 11/15/2019 XR FOOT WT BEARING RT 3V from 11/28/2019 XR FOOT WT BEARING LT 3V from 11/28/2019 XR FOOT WT BEARING LT 3V from 12/12/2019 FINDINGS: Status post fusion of the posterior subtalar joint, calcaneal cuboid and 3rd metatarsal joints with long lag screw. Additional long lag screw is present from the distal aspect of the 1st metatarsal into the medial cuneiform navicular and talus. Screws, bone plate and xiomara remain intact IMPRESSION: No change status post hind and midfoot fusion Dictated by: Hemal Pedersen MD 12/19/2019 16:41 Electronically signed by Hemal Pedersen MD in [place] 12/19/2019 16:41
--- NOTE | 2019-12-19 09:05 | XR_ITS ---
PROCEDURE: XR FOOT WT BEARING LT 3V CLINICAL INDICATION: postop surgery Follow-up surgery/Charcot joint COMPARISON: XR FOOT WT BEARING LT 3V from 11/15/2019 XR FOOT WT BEARING RT 3V from 11/28/2019 XR FOOT WT BEARING LT 3V from 11/28/2019 XR FOOT WT BEARING LT 3V from 12/12/2019 FINDINGS: Postsurgical changes are present. The long lag screw from the distal 1st metatarsal to the posterior talus is once again noted and is broken at the anterior talar region. On these images is appears that there is some increased subluxation posteriorly of the distal aspect of the fractured screw. The angle at the fracture site is also somewhat greater suggesting some instability. The lucency noted previously at the navicular cuneiform junction is not significantly changed. No change in the talocalcaneal fusion and the calcaneocuboid fusion. IMPRESSION: Slight increase in pes planus. There does appear to be some increased displacement of the screw fragments of the long lag screw. No change in the lucency and ill definition of the navicular cuneiform joint Dictated by: Hemal Pedersen MD 12/19/2019 16:13 Electronically signed by Hemal Pedersen MD in [place] 12/19/2019 16:13
[2019-12-19 10:35] LABS: Basophils # 0.1 K/mm3 (0-0.2); Basophils % 0.8 % (0.1-2.0); Eosinophils # 0.3 K/mm3 (0.0-0.4); Eosinophils % 3.6 % (0.1-12.0); Hematocrit 35.2 % (37.0-47.0); Hemoglobin 10.9 g/dL (12.2-16.2); Lymphocytes # 1.8 K/mm3 (0.7-4.5); Lymphocytes % 19.2 % (10-50); Mean Corpuscular HGB Conc 30.9 g/dL (31.8-35.4); Mean Corpuscular Hemoglobin 25.4 pg (27.0-31.2); Mean Corpuscular Volume 82.3 fl (81-99); Mean Platelet Volume 8.6 fl (7.4-10.4); Monocytes # 0.5 K/mm3 (0.1-1.0); Monocytes % 5.1 % (1.7-9.3); Neutrophils # 6.7 K/mm3 (1.8-7.8); Neutrophils % 71.2 % (37.0-80.0); Platelet Count 280 K/mm3 (142-424); Red Blood Count 4.28 M/mm3 (4.20-5.40); Red Cell Distribution Width 15.1 % (11.5-17.5); White Blood Count 9.5 K/mm3 (4.8-10.8)
[2019-12-19 11:02] LABS: Erythrocyte Sedimentation Rate 90 mm/hr (0-30)
[2019-12-19 11:20] LABS: Alanine Aminotransferase 20 U/L (12-78); Albumin Level 3.1 gm/dL (3.4-5.0); Albumin/Globulin Ratio 0.8 (1.1-1.8); Alkaline Phosphatase 110 U/L (46-116); Anion Gap 12.9 mEq/L (5-15); Aspartate Amino Transferase 13 U/L (15-37); Bilirubin,Total 0.3 mg/dL (0.2-1.0); Blood Urea Nitrogen 26 mg/dL (7-18); C-Reactive Protein 1.6 mg/dL (0.0-0.9); Calcium 8.8 mg/dL (8.5-10.1); Carbon Dioxide 28 mmol/L (21.0-32.0); Chloride 101 mmol/L (98-107); Creatinine,Serum 1.13 mg/dL (0.55-1.02); Estimated Glomerular Filt Rate 51 ml/min (>60); GFR (African American) 61 ML/MIN (>60); Globulin 3.8 gm/dl (1.3-3.2); Glucose 342 mg/dL (74-106); Potassium 4.9 mmoL/L (3.5-5.1); Sodium 137 mmol/L (136-145); Total Protein,Serum 6.9 gm/dL (6.4-8.2)
== END ==
PROVIDERS: PCP Internal Medicine; Visit Provider Podiatrist
DX: Z98.890 Other specified postprocedural states (principal); E11.621 Type 2 diabetes mellitus with foot ulcer; L97.519 Non-pressure chronic ulcer of other part of right foot with unspecified severity; L97.411 Non-pressure chronic ulcer of right heel and midfoot limited to breakdown of skin
CPT/HCPCS: 36415; 73630; 80053; 85025; 85651; 86140

== ENCOUNTER → 2020-01-09 16:11 | Outpatient (CLI) | payer BC, SELFPAY ==
--- NOTE | 2020-01-09 16:16 | XR_ITS ---
PROCEDURE: XR FOOT WT BEARING LT 3V CLINICAL INDICATION: 1st met ulcer Pain and swelling, 1st metatarsal ulcer COMPARISON: XR FOOT WT BEARING LT 3V from 11/28/2019 XR FOOT WT BEARING LT 3V from 12/12/2019 XR FOOT WT BEARING RT 3V from 12/19/2019 XR FOOT WT BEARING LT 3V from 12/19/2019 FINDINGS: Postsurgical changes are present. The long lag screw from the distal 1st metatarsal to the posterior talus is once again noted and is broken at the anterior talar region. There is mild pes planus. There is mild inferior angulation the long lag screw at the fracture site not significantly changed.. The lucency noted previously at the navicular cuneiform junction is not significantly changed. No change in the talocalcaneal fusion and the calcaneocuboid fusion.. No change in the calcaneocuboid fusion. Hammertoe deformity involves 1st through 5th toes. IMPRESSION: Postsurgical changes as described above with fracture of the long lag screw and pes planus overall not significantly changed Dictated by: Hemal Pedersen MD 01/09/2020 17:14 Electronically signed by Hemal Pedersen MD in [place] 01/09/2020 17:14
== END ==
PROVIDERS: PCP Internal Medicine; Visit Provider Podiatrist
DX: Z51.89 Encounter for other specified aftercare (principal); E11.621 Type 2 diabetes mellitus with foot ulcer; L97.511 Non-pressure chronic ulcer of other part of right foot limited to breakdown of skin
CPT/HCPCS: 73630

== ENCOUNTER → 2020-02-07 08:55 | Outpatient (CLI) | payer BC, SELFPAY ==
--- NOTE | 2020-02-07 08:59 | XR_ITS ---
PROCEDURE: XR ANKLE WT BEARING LT MIN 3V CLINICAL INDICATION: pain COMPARISON: XR ANKLE WT BEARING LT MIN 3V from 08/02/2019 XR ANKLE WT BEARING LT MIN 3V from 08/11/2019 XR ANKLE WT BEARING LT MIN 3V from 09/19/2019 XR ANKLE LT MIN 3V from 09/28/2019 XR FOOT WT BEARING LT 3V from 01/09/2020 FINDINGS: There is mild eversion of the talus. There is narrowing of the ankle joint laterally. Talar dome has an unremarkable appearance. Osteoarthritic changes are present at the ankle joint. There is some calcification present projecting over the anterior aspect of the ankle joint on the lateral view. Fracture long lag screw of the midfoot once again noted not significantly changed. There is pes planus. Prior talar calcaneal and talonavicular and calcaneocuboid fusion IMPRESSION: Osteoarthritic changes of the ankle joint with mild eversion of the talus with postsurgical changes of the mid and hindfoot with fracture long lag screw as before Dictated by: Hemal Pedersen MD 02/07/2020 12:01 Electronically signed by Hemal Pedersen MD in [place] 02/07/2020 12:01
== END ==
PROVIDERS: PCP Internal Medicine; Visit Provider Podiatrist
DX: M25.572 Pain in left ankle and joints of left foot (principal)
CPT/HCPCS: 73610

== ENCOUNTER → 2020-03-05 11:53 | Outpatient (CLI) | payer BC, SELFPAY ==
[2020-03-05 12:20] LABS: Basophils # 0.1 K/mm3 (0-0.2); Basophils % 0.6 % (0.1-2.0); Eosinophils # 0.3 K/mm3 (0.0-0.4); Eosinophils % 2.9 % (0.1-12.0); Hematocrit 37.9 % (37.0-47.0); Lymphocytes # 2.1 K/mm3 (0.7-4.5); Lymphocytes % 20.5 % (10-50); Mean Corpuscular HGB Conc 31.6 g/dL (31.8-35.4); Mean Corpuscular Hemoglobin 25.9 pg (27.0-31.2); Mean Corpuscular Volume 81.9 fl (81-99); Mean Platelet Volume 9.5 fl (7.4-10.4); Monocytes # 0.5 K/mm3 (0.1-1.0); Monocytes % 5.2 % (1.7-9.3); Neutrophils # 7.2 K/mm3 (1.8-7.8); Neutrophils % 70.8 % (37.0-80.0); Platelet Count 285 K/mm3 (142-424); Red Blood Count 4.62 M/mm3 (4.20-5.40); Red Cell Distribution Width 15.4 % (11.5-17.5); White Blood Count 10.2 K/mm3 (4.8-10.8)
[2020-03-05 13:02] LABS: Erythrocyte Sedimentation Rate 36 mm/hr (0-30)
[2020-03-05 13:03] LABS: Alanine Aminotransferase 24 U/L (12-78); Albumin Level 3.9 g/dl (3.5-5.0); Albumin/Globulin Ratio 1.2 (1.1-1.8); Alkaline Phosphatase 109 U/L (38-126); Aspartate Amino Transferase 23 U/L (14-36); Bilirubin,Total 0.3 mg/dl (0.2-1.3); Blood Urea Nitrogen 20 mg/dl (7-17); Carbon Dioxide 26 mmol/L (22.0-30.0); Chloride 100 mmol/L (98-107); Estimated Glomerular Filt Rate 66 ml/min (>60); GFR (African American) 80 ML/MIN (>60); Globulin 3.2 g/dL (1.3-3.2); Glucose 365 mg/dl (74-100); Sodium 134 mmol/L (136-145); Total Protein,Serum 7.1 g/dl (6.3-8.2)
[2020-03-05 13:04] LABS: Hemoglobin A1C 8.2 % (4.0-6.0)
== END ==
PROVIDERS: Visit Provider Podiatrist
DX: E11.621 Type 2 diabetes mellitus with foot ulcer (principal); L97.519 Non-pressure chronic ulcer of other part of right foot with unspecified severity; E11.610 Type 2 diabetes mellitus with diabetic neuropathic arthropathy; Z79.4 Long term (current) use of insulin
CPT/HCPCS: 36415; 80053; 83036; 85025; 85651; 86140

== ENCOUNTER → 2020-03-23 11:55 | Outpatient (CLI) | payer BC, SELFPAY ==
[2020-03-24 15:17] LABS: Covid-19 Nasal PCR Sendout Lex Not Detected
== END ==
PROVIDERS: Visit Provider Internal Medicine Cardiovascular Disease
DX: Z01.810 Encounter for preprocedural cardiovascular examination (principal)
CPT/HCPCS: U0003

== ENCOUNTER → 2020-05-04 16:55 | Outpatient (CLI) | payer BC, SELFPAY ==
--- NOTE | 2020-05-04 16:59 | XR_ITS ---
PROCEDURE: XR FOOT WT BEARING LT 3V CLINICAL INDICATION: foot pain Follow-up surgery, pain COMPARISON: XR FOOT WT BEARING LT 3V from 12/12/2019 XR FOOT WT BEARING RT 3V from 12/19/2019 XR FOOT WT BEARING LT 3V from 12/19/2019 XR FOOT WT BEARING LT 3V from 01/09/2020 XR ANKLE WT BEARING LT MIN 3V from 02/07/2020 XR ANKLE WT BEARING LT MIN 3V from 05/04/2020 FINDINGS: Status post triple arthrodesis with a long lag screw extending from the distal aspect of the 1st metatarsal into the medial cuneiform navicular and talus. Prior talonavicular fusion with pes planus. The lag screw is broken at the talonavicular region with mild inferior angulation of the fracture site as previously described not significantly changed. Prior tail 0 calcaneal fusion with lag screw present. Prior calcaneocuboid fusion with 2 screws present. No acute fracture or dislocation is evident. There are osteoarthritic changes of the midfoot. The navicular cuneiform joint is not fused. There is eversion of the ankle with talar tilt. The ankle mortise is preserved. No acute fracture or dislocation of the ankle. There is irregularity of the talar surface anteriorly similar to the previous exam IMPRESSION: Overall no significant change status post fusion with fracture of long lag screw at the talonavicular region with minimal displacement and inferior angulation with pes planus Dictated by: Hemal Pedersen MD 05/05/2020 07:22 Electronically signed by Hemal Pedersen MD in [place] 05/05/2020 07:22
== END ==
PROVIDERS: PCP Internal Medicine; Visit Provider Podiatrist
DX: E11.8 Type 2 diabetes mellitus with unspecified complications (principal); Z79.4 Long term (current) use of insulin
CPT/HCPCS: 73610; 73630

== ENCOUNTER → 2020-05-24 18:14 | Outpatient (CLI) | payer BC, SELFPAY | PROVIDERS: Visit Provider Nurse Practitioner | DX: E11.621 Type 2 diabetes mellitus with foot ulcer (principal); L97.519 Non-pressure chronic ulcer of other part of right foot with unspecified severity; Z79.4 Long term (current) use of insulin | CPT/HCPCS: 87070; 87077; 87186; 87205 ==

== ENCOUNTER → 2020-07-27 13:59 | Outpatient (CLI) | payer MEDICARE, BC, SELFPAY ==
--- NOTE | 2020-07-27 14:43 | XR_ITS ---
PROCEDURE: XR ANKLE WT BEARING RT MIN 3V CLINICAL INDICATION: pain Follow-up surgery COMPARISON: CR [id number] XR ankle wt bearing LT min 3V from 02/17/2019 CR XR ANKLE WT BEARING LT MIN 3V from 09/19/2019 CR XR TIBIA FIBULA LT 2V from 09/19/2019 CR XR ANKLE LT MIN 3V from 09/28/2019 CR XR FOOT WT BEARING LT 3V from 11/28/2019 CR XR FOOT WT BEARING RT 3V from 12/19/2019 CR XR ANKLE WT BEARING LT MIN 3V from 02/07/2020 CR XR FOOT WT BEARING LT 3V from 05/04/2020 CR XR FOOT WT BEARING RT 3V from 07/27/2020 FINDINGS: Status post extensive foot fusion as previously described. Multiple bone plates screws and xiomara remain in place with midfoot fusion and hindfoot fusion. There is good alignment of the bony structures with overall no significant change compared to the previous exam. There are mild osteoarthritic changes at the ankle IMPRESSION: Good alignment status post mid and hindfoot fusion with no change in the bony hardware. Dictated by: Hemal Pedersen MD 07/27/2020 15:39 Hemal Pedersen MD in [place] 07/27/2020 15:39
--- NOTE | 2020-07-27 14:43 | XR_ITS ---
PROCEDURE: XR ANKLE WT BEARING LT MIN 3V CLINICAL INDICATION: pain COMPARISON: , Follow-up fusion CR XR ANKLE WT BEARING LT MIN 3V from 09/19/2019 CR XR ANKLE LT MIN 3V from 09/28/2019 CR XR ANKLE WT BEARING LT MIN 3V from 02/07/2020 FINDINGS: There is good alignment of the ankle with osteoarthritic changes at the tail 0 tibial joint anteriorly. There is cortical regularity involving the anterior distal aspect of the talus the along with some irregularity of the anterior distal tibia. There is fracture of the long screw from the 1st metatarsal into the navicular and talus. There is pes planus. Status post talocalcaneal fusion and calcaneocuboid fusion. IMPRESSION: Overall no change status post hindfoot and midfoot fusion with fractured screw at the distal talus Dictated by: Hemal Pedersen MD 07/27/2020 17:47 Hemal Pedersen MD in [place] 07/27/2020 17:47
--- NOTE | 2020-07-27 14:43 | XR_ITS ---
PROCEDURE: XR FOOT WT BEARING LT 3V CLINICAL INDICATION: pain Follow-up fusion COMPARISON: CR XR FOOT WT BEARING LT 3V from 12/19/2019 CR XR FOOT WT BEARING RT 3V from 12/19/2019 CR XR FOOT WT BEARING LT 3V from 01/09/2020 CR XR FOOT WT BEARING LT 3V from 05/04/2020 FINDINGS: S/p talocalcaneal and calcaneocuboid fusion. Long lag screw from the tip of the 1st metatarsal into the medial cuneiform navicular and talus is once again noted with some fracture at the proximal aspect of the screw with pes planus. There is nearly 3 mm superior displacement of the proximal fracture fragment. A lucency is noted at the navicular cuneiform region. This would indicate nonfusion at this area. There is pes planus. IMPRESSION: Status post foot fusion as described above with fractured screw and persistent lucency at the navicular cuneiform junction consistent with non fusion Dictated by: Hemal Pedersen MD 07/27/2020 17:54 Hemal Pedersen MD in [place] 07/27/2020 17:54
[2020-07-27 15:01] LABS: Basophils # 0.1 K/mm3 (0-0.2); Basophils % 0.8 % (0.1-2.0); Eosinophils # 0.4 K/mm3 (0.0-0.4); Eosinophils % 4.1 % (0.1-12.0); Hematocrit 35.5 % (37.0-47.0); Hemoglobin 11.9 g/dL (12.2-16.2); Lymphocytes # 2.3 K/mm3 (0.7-4.5); Lymphocytes % 22.9 % (10-50); Mean Corpuscular HGB Conc 33.5 g/dL (31.8-35.4); Mean Corpuscular Hemoglobin 27.6 pg (27.0-31.2); Mean Corpuscular Volume 82.5 fl (81-99); Mean Platelet Volume 8.8 fl (7.4-10.4); Monocytes # 0.5 K/mm3 (0.1-1.0); Monocytes % 4.8 % (1.7-9.3); Neutrophils # 6.9 K/mm3 (1.8-7.8); Neutrophils % 67.3 % (37.0-80.0); Platelet Count 273 K/mm3 (142-424); Red Cell Distribution Width 15.5 % (11.5-17.5); White Blood Count 10.2 K/mm3 (4.8-10.8)
[2020-07-27 15:39] LABS: Erythrocyte Sedimentation Rate 93 mm/hr (0-30)
[2020-07-27 16:05] LABS: Chloride 100 mmol/L (98-107); Potassium 5.2 mmoL/L (3.5-5.1); Sodium 136 mmol/L (136-145)
[2020-07-27 16:07] LABS: Blood Urea Nitrogen 24 mg/dl (7-17); Estimated Glomerular Filt Rate 58 ml/min (>60); GFR (African American) 70 ML/MIN (>60)
[2020-07-27 16:08] LABS: Alanine Aminotransferase 18 U/L (12-78); Albumin Level 3.5 g/dl (3.5-5.0); Albumin/Globulin Ratio 1.2 (1.1-1.8); Alkaline Phosphatase 92 U/L (38-126); Anion Gap 14.2 mEq/L (5-15); Aspartate Amino Transferase 22 U/L (14-36); Bilirubin,Total 0.5 mg/dl (0.2-1.3); Calcium 9.3 mg/dl (8.4-10.2); Carbon Dioxide 27 mmol/L (22.0-30.0); Globulin 2.9 g/dL (1.3-3.2); Total Protein,Serum 6.4 g/dl (6.3-8.2)
[2020-07-27 16:23] LABS: Glucose 420 mg/dl (74-100)
[2020-07-27 17:32] LABS: Hemoglobin A1C 10.1 % (4.0-6.0)
== END ==
PROVIDERS: PCP Internal Medicine; Visit Provider Podiatrist
DX: Z51.89 Encounter for other specified aftercare (principal); M14.672 Charcot's joint, left ankle and foot; M14.671 Charcot's joint, right ankle and foot; M25.572 Pain in left ankle and joints of left foot; M25.571 Pain in right ankle and joints of right foot; E11.9 Type 2 diabetes mellitus without complications; Z79.4 Long term (current) use of insulin
CPT/HCPCS: 36415; 73610; 73630; 80053; 83036; 85025; 85651; 86140

== ENCOUNTER → 2020-08-03 16:45 | Outpatient (CLI) | payer MEDICARE, BC, SELFPAY ==
[2020-08-03 16:50] LABS: Adenovirus F 40/41, stool Not Detected (NotDetected); Astrovirus Not Detected (NotDetected); Campylobacter Not Detected (NotDetected); Clostridium Difficile A/B, PCR Not Detected (NotDetected); Cryptosporidium Not Detected (NotDetected); Cyclospora Cayetanesis Not Detected (NotDetected); Entamoeba histolytica Not Detected (NotDetected); Enteroaggregative E coli Not Detected (NotDetected); Enteropathogenic E coli Not Detected (NotDetected); Enterotoxigenic E coli Not Detected (NotDetected); Giardia lamblia Not Detected (NotDetected); Norovirus Not Detected (NotDetected); Plesimonas Shigalloides, PCR Not Detected (NotDetected); Rotavirus A Not Detected (NotDetected); Salmonella, PCR Not Detected (NotDetected); Sapovirus Not Detected (NotDetected); Shiga-like toxin E coli Not Detected (NotDetected); Shigella Enterovasive E coli Not Detected (NotDetected); Vibrio Cholerae Not Detected (NotDetected); Vibrio, PCR Not Detected (NotDetected); Yersinia Entercolitica, PCR Not Detected (NotDetected)
== END ==
PROVIDERS: Visit Provider Internal Medicine
DX: R19.7 Diarrhea, unspecified (principal)
CPT/HCPCS: 87506

== ENCOUNTER → 2020-09-03 11:24 | Outpatient (CLI) | payer MEDICARE, BC, SELFPAY ==
--- NOTE | 2020-09-03 11:30 | XR_ITS ---
PROCEDURE: XR FOOT WT BEARING LT 3V CLINICAL INDICATION: pain, redness Follow-up foot surgery with pain and redness COMPARISON: CR XR FOOT WT BEARING LT 3V from 01/09/2020 CR XR FOOT WT BEARING LT 3V from 05/04/2020 CR XR FOOT WT BEARING LT 3V from 07/27/2020 CR XR FOOT WT BEARING RT 3V from 07/27/2020 FINDINGS: Pes planus is noted. Status post 1st metatarsal tarsal and talonavicular fusion. The screw is broken at the talonavicular region with inferior angulation of the screw site. This is not significantly changed. There is incomplete navicular cuneiform fusion. There does appear to be fusion of the medial cuneiform and 1st metatarsal and of the talonavicular joint. Status post calcaneocuboid fusion and talocalcaneal fusion IMPRESSION: Status post foot fusion with pes planus with fractured talonavicular medial cuboid and 1st metatarsal screw as described above with non fusion of the navicular cuneiform joint. Dictated by: Hemal Pedersen MD 09/03/2020 16:56 Hemal Pedersen MD in [place] 09/03/2020 16:56
--- NOTE | 2020-09-03 11:30 | XR_ITS ---
PROCEDURE: XR FOOT WT BEARING RT 3V CLINICAL INDICATION: pain, redness COMPARISON: CR XR FOOT WT BEARING LT 3V from 01/09/2020 CR XR FOOT WT BEARING LT 3V from 05/04/2020 CR XR FOOT WT BEARING LT 3V from 07/27/2020 CR XR FOOT WT BEARING RT 3V from 07/27/2020 FINDINGS: S/p talocalcaneal, calcaneocuboid, 1st metatarsal tarsal fusion. The screws in bone plate are not significantly changed. Osteoarthritic changes are present at the 1st metatarsophalangeal joint where the the head of that screw appears to extend into the joint space. There is calcaneocuboid fusion. Subtalar joint appears fused. The talonavicular joint appears fused. No hardware malfunction evident. There is prominent os trigonum with small calcific densities both anterior and posterior to the ankle joint which may represent loose bodies. IMPRESSION: Status post extensive foot surgery with fusion as described above not significantly changed with no obvious hardware malfunction Dictated by: Hemal Pedersen MD 09/03/2020 16:53 Hemal Pedersen MD in [place] 09/03/2020 16:53
[2020-09-03 13:00] LABS: Chloride 100 mmol/L (98-107); Sodium 135 mmol/L (136-145)
[2020-09-03 13:01] LABS: Potassium 4.7 mmoL/L (3.5-5.1)
[2020-09-03 13:03] LABS: Alanine Aminotransferase 15 U/L (12-78); Alkaline Phosphatase 97 U/L (38-126); Aspartate Amino Transferase 17 U/L (14-36); Bilirubin,Total 0.4 mg/dl (0.2-1.3); Blood Urea Nitrogen 21 mg/dl (7-17); Estimated Glomerular Filt Rate 58 ml/min (>60); GFR (African American) 70 ML/MIN (>60)
[2020-09-03 13:04] LABS: Albumin Level 3.7 g/dl (3.5-5.0); Albumin/Globulin Ratio 1.2 (1.1-1.8); Anion Gap 14.7 mEq/L (5-15); Calcium 9.3 mg/dl (8.4-10.2); Carbon Dioxide 25 mmol/L (22.0-30.0); Glucose 355 mg/dl (74-100); Total Protein,Serum 6.7 g/dl (6.3-8.2)
[2020-09-03 13:08] LABS: Basophils # 0.1 K/mm3 (0-0.2); Basophils % 0.7 % (0.1-2.0); Eosinophils # 0.3 K/mm3 (0.0-0.4); Eosinophils % 3.3 % (0.1-12.0); Hemoglobin 12.1 g/dL (12.2-16.2); Lymphocytes # 2.7 K/mm3 (0.7-4.5); Mean Corpuscular HGB Conc 31.1 g/dL (31.8-35.4); Mean Corpuscular Hemoglobin 26.6 pg (27.0-31.2); Mean Corpuscular Volume 85.5 fl (81-99); Mean Platelet Volume 8.9 fl (7.4-10.4); Monocytes # 0.6 K/mm3 (0.1-1.0); Monocytes % 6.3 % (1.7-9.3); Neutrophils # 6.2 K/mm3 (1.8-7.8); Neutrophils % 62.8 % (37.0-80.0); Platelet Count 300 K/mm3 (142-424); Red Blood Count 4.56 M/mm3 (4.20-5.40); Red Cell Distribution Width 15.5 % (11.5-17.5)
[2020-09-03 13:10] LABS: C-Reactive Protein 21.8 mg/L (0-4)
[2020-09-03 13:46] LABS: Erythrocyte Sedimentation Rate 71 mm/hr (0-30)
== END ==
PROVIDERS: PCP Internal Medicine; Visit Provider Podiatrist
DX: E11.40 Type 2 diabetes mellitus with diabetic neuropathy, unspecified (principal); Z79.4 Long term (current) use of insulin
CPT/HCPCS: 36415; 73630; 80053; 85025; 85651; 86140

== ENCOUNTER → 2020-10-18 15:00 | Outpatient (CLI) | payer MEDICARE, BC, SELFPAY | PROVIDERS: Visit Provider Podiatrist | DX: E11.621 Type 2 diabetes mellitus with foot ulcer (principal); L97.519 Non-pressure chronic ulcer of other part of right foot with unspecified severity | CPT/HCPCS: 87070; 87077; 87186; 87205 ==

== ENCOUNTER 2020-11-18 06:00 | Inpatient (IN) | payer MEDICARE, BC, SELFPAY ==
[2020-11-18] VITALS (27 sets, daily range): BP systolic 99–168; BP diastolic 49–94; PULSE 88–160; RESP 16–22; TEMP 36.1–37.3; O2SAT 9–105; BMI 47.0; BMI 49.7
--- NOTE | 2020-11-18 | IR_ITS ---
APPROVED REPORT PROCEDURES Left heart catheterization Left ventriculogram Selective coronary angiogram INDICATION Acute ST elevation myocardial infarction, Known coronary artery disease Informed consent was obtained prior to the procedure. COMPLICATIONS None Estimated Blood Loss: less than 10ml TECHNIQUE One percent lidocaine was used to anesthetize the right groin. The right femoral artery was accessed via the Seldinger technique. A 6-Sudanese sheath was placed in the right femoral artery. The JL-4 and JR-4 catheter was also used to perform left heart catheterization left ventriculogram and selective coronary angiogram. At the end of the procedure the apparatus was removed the groin was reprepped gloves were changed sheath was removed good hemostasis was achieved using Perclose device patient was transferred to the postop holding area in stable condition ANGIOGRAPHIC RESULTS The left main artery Normal The left anterior descending artery Is widely patent with ZENA-3 flow. There is a stent in the proximal segment which is widely patent free of in-stent restenosis with excellent proximal distal transitioning. The mid LAD has mild 10 to 20% stenoses The circumflex artery Is a nondominant vessel with an ostial 30 to 40% stenosis. The first obtuse marginal artery is moderate in size and widely patent. There is a small second obtuse marginal artery less than 2 mm in diameter with proximal 90% stenoses. There appears to be a third obtuse marginal artery in which at site of origin cannot be angiographically determined. The distal portion of this vessel fills via left to left collaterals from the LAD. This vessel appears to be less than 2 mm in diameter The right coronary artery Is a dominant vessel with a stent in the ostial proximal segment which is widely patent free of in-stent restenosis with excellent proximal distal transitioning. 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 Patient's myocardial infarction is a secondary stress myocardial infarction from the DKA 2. Supportive care as necessary which should include treating the primary underlying condition which is DKA 3. MOSES inhibitors and beta-blockers once stable. 4. Continue insulin drip until DKA resolves, will defer to primary treating team 5. LDL less than 55 6. Echocardiogram Thursday 7. Patient may require LifeVest prior to being discharged home 8. Telemetry with supportive care Electronically signed by : Kamron Beatty, 11/18/2020 08:39:55
--- NOTE | 2020-11-18 06:09 | XR_ITS ---
PROCEDURE: XR CHEST PORTABLE CLINICAL HISTORY: weakness COMPARISON: CR XR CHEST PORTABLE from 10/25/2019 CR XR CHEST PORTABLE PICC PLAC from 10/25/2019 CR XR CHEST PORTABLE from 10/28/2019 FINDINGS: There is cardiomegaly without failure. Vascular prominence noted in the left hilar region. No lobar consolidation or collapse. Old granulomatous disease. No acute bony abnormalities. IMPRESSION: Cardiomegaly otherwise negative Dictated by: Hemal Pedersen MD 11/18/2020 09:48 Hemal Pedersen MD in [place] 11/18/2020 09:48
[2020-11-18 06:31] LABS: ABG Oxygen Saturation 98 % (90-100); ABG PO2 126.3 mmhg (80-100); ABG TCO2 6.5 mmhg (23-27)
[2020-11-18 06:31] LABS: Basophils # 0.1 K/mm3 (0-0.2); Basophils % 0.4 % (0.1-2.0); Eosinophils # 0.2 K/mm3 (0.0-0.4); Eosinophils % 0.7 % (0.1-12.0); Hematocrit 49.8 % (37.0-47.0); Hemoglobin 15.4 g/dL (12.2-16.2); Lymphocytes # 1.3 K/mm3 (0.7-4.5); Lymphocytes % 5.6 % (10-50); Mean Corpuscular HGB Conc 30.8 g/dL (31.8-35.4); Mean Corpuscular Hemoglobin 26.6 pg (27.0-31.2); Mean Corpuscular Volume 86.3 fl (81-99); Mean Platelet Volume 8.8 fl (7.4-10.4); Monocytes # 1.3 K/mm3 (0.1-1.0); Monocytes % 5.7 % (1.7-9.3); Neutrophils # 20.4 K/mm3 (1.8-7.8); Neutrophils % 87.6 % (37.0-80.0); Platelet Count 379 K/mm3 (142-424); Red Blood Count 5.77 M/mm3 (4.20-5.40); Red Cell Distribution Width 15.6 % (11.5-17.5)
[2020-11-18 06:32] LABS: Allen's Test Acceptable; Source Right Radial
[2020-11-18 06:33] LABS: ABG PCO2 15.8 mmhg (35.0-45.0)
[2020-11-18 06:35] LABS: White Blood Count 23.3 K/mm3 (4.8-10.8)
--- NOTE | 2020-11-18 06:35 | HMH.EDGENADL ---
ED Disposition Clinical Impression: NIKOLAI (acute kidney injury) DKA (diabetic ketoacidoses) Qualifiers: Diabetes mellitus type: type 1 Diabetes mellitus complication detail: without coma Qualified Code(s): E10.10 - Type 1 diabetes mellitus with ketoacidosis without coma Disposition: Admitted As Inpatient Condition on Discharge: Fair Referrals: Diego Lynch [Primary Care Provider] - - Critical Care Critical Care Time: Yes Attestation: On 11/18/20, the high probability of a clinically significant, sudden or life threatening deterioration of the following system(s) required my full and direct attention, intervention and personal management. The time I documented below is in addition to time spent performing reported procedures but includes the following listed in this critical care notation. Total Critical Care Time: 30 Vital system(s) involved:: Central Nervous System, Metabolic Failure My critical care processes included: Assessment & monitoring of V/S, Initial and Re-exams, Data Review/Interpretation, Medication Orders and management Medical Decision Making - Medical Records Medical records reviewed: Yes: I reviewed the patient's medical records. - Harsha Inquiry Pt receiving controlled substance: No Vital Signs: 11/18/20 06:00 Temperature 97 F L Temperature Source Oral Respiratory Rate 16 Blood Pressure [Right Arm] 125/74 Blood Pressure Mean [Right Arm] 91 Blood Pressure Source [Right Arm] Automatic Cuff Blood Pressure Position [Right Arm] Sitting 02 Sat by Pulse Oximetry 97 Oxygen Delivery Method Room Air - Lab Data Lab results reviewed: Yes: I reviewed the patient's lab results. Lab Results 11/18/20 06:06: Specimen Source Right radial, ABG pH 7.20 L*, ABG pCO2 15.8 L, ABG pO2 126.3 H, ABG HCO3 6.0 L, ABG Total CO2 6.5 L, ABG O2 Saturation 98, ABG Base Excess -22.0 L, Hemal Test Acceptable 11/18/20 06:20: WBC 23.3 H*, RBC 5.77 H, Hgb 15.4, Hct 49.8 H, MCV 86.3, MCH 26.6 L, MCHC 30.8 L, RDW 15.6, Plt Count 379, MPV 8.8, Neut % (Auto) 87.6 H, Lymph % (Auto) 5.6 L, Gilchrist % (Auto) 5.7, Eos % (Auto) 0.7, Baso % (Auto) 0.4, Neut # (Auto) 20.4 H, Lymph # (Auto) 1.3, Gilchrist # (Auto) 1.3 H, Eos # (Auto) 0.2, Baso # (Auto) 0.1 11/18/20 06:20: Sodium 129 L, Potassium 4.9, Chloride 97 L, Carbon Dioxide 7 L*, Anion Gap 29.9 H, BUN 73 H, Creatinine 1.90 H, Estimated Creat Clear 34, Estimated GFR 28 L, Est GFR ( Amer) 34 L, Glucose 588 H*, Calcium 9.0, Total Bilirubin 0.6, Direct Bilirubin 0.4, Conjugated Bilirubin 0.0, Indirect Bilirubin 0.2, Unconjugated Bilirubin 0.3, AST 30, ALT 16, Alkaline Phosphatase 132 H, Total Protein 7.5, Albumin 3.9, Acetone Level Detected Result diagrams: 11/18/20 06:20 11/18/20 06:20 Orders (Tests/Meds): ED MEDICATIONS Generic Name Dose Route Start Last Admin Trade Name Freq PRN Reason Stop Dose Admin Sodium Chloride 1,000 mls @ 999 mls/hr 11/18/20 06:15 11/18/20 06:20 Sod Chlor 0.9% 1000ml Bag IV 11/18/20 07:15 999 mls/hr .Q1H1M PETE Administration Discontinued Medications Generic Name Dose Route Start Last Admin Trade Name Freq PRN Reason Stop Dose Admin Insulin Human Regular 10 unit 11/18/20 06:17 11/18/20 06:22 Insulin Human Regular 100 Units/Ml 10ml Vial SQ 11/18/20 06:18 10 unit ONCE ONE Administration ORDERS Category Date Time Status Chest XR -- portable [XR chest portable] Stat Exams 11/18/20 06:09 Taken Acetone, Serum (Rapid) Stat Lab 11/18/20 06:20 Results Basic Metabolic Panel Stat Lab 11/18/20 06:20 Results Complete Blood Count Auto Diff Stat Lab 11/18/20 06:20 Results Liver Panel Stat Lab 11/18/20 06:20 Results Troponin I Q3H Lab 11/18/20 09:15 Ordered Troponin I Q3H Lab 11/18/20 12:15 Ordered Troponin I Stat Lab 11/18/20 06:20 Results Urinalysis and Microscopic Stat Lab 11/18/20 06:06 Ordered Medical Decision Narrative: 50-year-old female with insulin-dependent diabetes noncompliant with her insulin for the
[2020-11-18 06:37] LABS: Chloride 97 mmol/L (98-107); MANUAL DIFFERENTIAL MANUAL DIFFERENTIAL (MANUAL DIFF)
[2020-11-18 06:38] LABS: Potassium 4.9 mmoL/L (3.5-5.1); Sodium 129 mmol/L (136-145)
[2020-11-18 06:41] LABS: Alanine Aminotransferase 16 U/L (12-78); Albumin Level 3.9 g/dl (3.5-5.0); Alkaline Phosphatase 132 U/L (38-126); Anion Gap 29.9 mEq/L (5-15); Aspartate Amino Transferase 30 U/L (14-36); Bilirubin,Direct 0.4 mg/dl (0.0-0.4); Bilirubin,Indirect 0.2 mg/dL (0.0-0.9); Bilirubin,Total 0.6 mg/dl (0.2-1.3); Bilirubin,Unconjugated 0.3 mg/dL (0.0-1.1); Blood Urea Nitrogen 73 mg/dl (7-17); Creatinine Clearance Estimated 34 mL/min (50-200); Estimated Glomerular Filt Rate 28 ml/min (>60); GFR (African American) 34 ML/MIN (>60); Total Protein,Serum 7.5 g/dl (6.3-8.2)
[2020-11-18 06:42] LABS: Acetone, Serum (Rapid) Detected (None Detect)
[2020-11-18 06:43] LABS: Glucose 588 mg/dl (74-100)
--- NOTE | 2020-11-18 06:43 | PC.NURSE ---
reported to 588 glucose. co2.
[2020-11-18 06:44] LABS: Carbon Dioxide 7 mmol/L (22.0-30.0)
[2020-11-18 06:49] LABS: Hypochromasia 2+; Lymphocytes % 10 % (10-50); Neutrophils % 85 % (42-76); Platelet Estimate Normal; Rouleaux 1+; Total Cells Counted 100
--- NOTE | 2020-11-18 06:50 | PC.NURSE ---
speaking with dr jaquez re admit
[2020-11-18 07:07] LABS: Troponin I 1.03 ng/ml (0.00-0.034)
--- NOTE | 2020-11-18 07:08 | INFXCTL.NOTE ---
critical trop resulted and given to
--- NOTE | 2020-11-18 07:11 | ECG_ITS ---
APPROVED REPORT Exam: Resting ECG HR:100 bpm ECG Measurements Heart Rate 100 AXES RI 136 P 41 QRSd 70 QRS 36 QT 340 T 20 QTc 438 Conclusion Sinus rhythm with occasional premature ventricular complexes Low voltage QRS Cannot rule out Anteroseptal infarct, age undetermined, but no major changes since 10/04 tracings Abnormal ECG Electronically signed by : Apolinar Odonnell, 11/18/2020 17:44:08
--- NOTE | 2020-11-18 07:21 | PC.NURSE ---
Aleyda speaking with Ilene at this time
--- NOTE | 2020-11-18 07:23 | PC.NURSE ---
dr jaquez notified of stemi alert and reasoning for troponin
--- NOTE | 2020-11-18 07:30 | PC.NURSE ---
0723 ADITYA CALVILLO,JOE ALEXANDER,AND IKE CANO NOTIFIED OF STEMI ALERT
[2020-11-18 07:35] LABS: Coronavirus 19 IgG Antibody Negative (Negative); Coronavirus 19 IgM Antibody Negative (Negative)
--- NOTE | 2020-11-18 07:43 | PC.NURSE ---
0716- spoke with Dr. Beatty and EKG sent to Dr. Beatty 0746- Pt consented to cath and advised mother could sign consent. mother signed consent at this time. 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
--- NOTE | 2020-11-18 07:45 | PC.NURSE ---
pt to [facility] per Imelda Toussaint Rn.
[2020-11-18 08:33] LABS: POC Glucose,Bedside 398 (70-110)
--- NOTE | 2020-11-18 09:24 | PC.NURSE ---
increased insulin gtt to 6 units at this time
--- NOTE | 2020-11-18 09:27 | PC.NURSE ---
instructed by cathlab to give 1 bag of ns at 100ml/hr
--- NOTE | 2020-11-18 09:47 | P.CONPHA_ITS ---
[facility] Pharmacy VTE Monitoring - Patient Demographics Admission date: 11/18/20 Report Date: 11/18/20 Time: 09:47 Allergies/Adverse Reactions: Patient Allergies amoxicillin [AMOXICILLIN] Allergy (Unknown, Verified 11/12/20 13:20) Unknown allergy reaction codeine [CODEINE] Adverse Reaction (Mild, Verified 11/12/20 13:20) STOMACH CRAMPS morphine [MORPHINE] Adverse Reaction (Mild, Verified 11/12/20 13:20) STOMACH CRAMPS oxycodone [From Percocet] Adverse Reaction (Mild, Verified 11/12/20 13:20) STOMACH CRAMPS Height: 1.68 m Weight: 139.82 kg Patient Problems: Current Active Problems DKA (diabetic ketoacidoses) (Acute) NIKOLAI (acute kidney injury) (Acute) - VTE Risk Labs: VTE Related Lab Results Hgb 15.4 g/dL (12.2-16.2) 11/18/20 06:20 Hct 49.8 % (37.0-47.0) H 11/18/20 06:20 Plt Count 379 K/mm3 (142-424) 11/18/20 06:20 BUN 73 mg/dl (7-17) H 11/18/20 06:20 Creatinine 1.90 mg/dl (0.52-1.04) H 11/18/20 06:20 Estimated Creat Clear 34 mL/min (50-200) 11/18/20 06:20 Was VTE Risk Assessment Performed: Yes VTE Score: 4 VTE Risk Level: Low Risk - Prophylaxis VTE Prophylaxis Ordered?: Yes Types of VTE Prophylaxis: TEDS Knee High Location of Applied Device: Bilateral Lower Extremeties
--- NOTE | 2020-11-18 10:45 | PC.NURSE ---
med rec completed using pt's pill bottles and/or verbal report from pt
[2020-11-18 10:58] LABS: Basophils % 0.2 % (0.1-2.0); Eosinophils # 0.1 K/mm3 (0.0-0.4); Eosinophils % 0.6 % (0.1-12.0); Hematocrit 42.5 % (37.0-47.0); Lymphocytes # 1.3 K/mm3 (0.7-4.5); Lymphocytes % 6.2 % (10-50); Mean Corpuscular HGB Conc 31.8 g/dL (31.8-35.4); Mean Corpuscular Hemoglobin 26.7 pg (27.0-31.2); Mean Corpuscular Volume 84.1 fl (81-99); Monocytes # 1.4 K/mm3 (0.1-1.0); Monocytes % 6.4 % (1.7-9.3); Neutrophils # 18.6 K/mm3 (1.8-7.8); Neutrophils % 86.6 % (37.0-80.0); Platelet Count 322 K/mm3 (142-424); Red Blood Count 5.05 M/mm3 (4.20-5.40); Red Cell Distribution Width 15.8 % (11.5-17.5); White Blood Count 21.5 K/mm3 (4.8-10.8)
--- NOTE | 2020-11-18 10:58 | PC.NURSE ---
Addendum entered by Chrissy Mccall RN 11/18/20 11:57: 1100 check fsbs 287. per protocol increased by 50% so increased drip to 13.5units/hr Original Note: patient insulin drip turned up to 9units at 1000 check per protocol. fsbs 348. also checked groin bleeding noted, dressing changed with some oozing at site. will hold off on sitting up at this time
[2020-11-18 11:05] LABS: Anion Gap 19.8 mEq/L (5-15); Blood Urea Nitrogen 66 mg/dl (7-17); Carbon Dioxide 11 mmol/L (22.0-30.0); Chloride 106 mmol/L (98-107); Creatinine Clearance Estimated 44 mL/min (50-200); Estimated Glomerular Filt Rate 39 ml/min (>60); GFR (African American) 48 ML/MIN (>60); Glucose 330 mg/dl (74-100); Potassium 3.8 mmoL/L (3.5-5.1); Sodium 133 mmol/L (136-145)
[2020-11-18 11:13] LABS: Hemoglobin 13.5 g/dL (12.2-16.2)
[2020-11-18 11:18] LABS: Troponin I 0.93 ng/ml (0.00-0.034)
--- NOTE | 2020-11-18 11:52 | PC.NURSE ---
[address] jaquez and relayed the critical troponin. also stated to dc the last troponin ordered, and patient could have clear liquids
--- NOTE | 2020-11-18 12:08 | PC.NURSE ---
per protocol increased drip to 20 units/hour at this time. current fsbs 308. per md orders patient continues to have the d5 1/2ns at 75ml/hr and the sodium choloride at 100ml.hr
[2020-11-18 12:42] LABS: POC Glucose,Bedside 348 (70-110)
[2020-11-18 12:42] LABS: POC Glucose,Bedside 396 (70-110)
[2020-11-18 12:42] LABS: POC Glucose,Bedside 308 (70-110)
[2020-11-18 12:57] LABS: POC Glucose,Bedside 287 (70-110)
--- NOTE | 2020-11-18 13:25 | PC.NURSE ---
1300 fsbs dropped well, at this time will not adjust insulin drip. patient 5 units below max at 20 units
--- NOTE | 2020-11-18 14:10 | PC.NURSE ---
FSBS 226. Will continue insulin gtt @ 20 units/hr per insulin gtt protocol.
--- NOTE | 2020-11-18 15:00 | PC.NURSE ---
FSBS 214. Will continue insulin gtt @ 20units/hr per insulin gtt protocol.
--- NOTE | 2020-11-18 15:00 | HMH.PHAINT ---
MEDICATION RECONCILIATION COMPLETED ON PATIENT USING LIST FROM PODIATRY OFFICE. -TANVI GRAY, MONAD
--- NOTE | 2020-11-18 15:04 | HMH.HP ---
*Admission Date: 11/18/20 *Chief complaint: dka,stemi *History of present illness: Is a 50-year-old female with a history of diabetes mellitus presenting with a 3-day history of nausea, vomiting and diarrhea with generalized weakness. Patient states she has not been compliant with her insulin because she did not feel well. No fever, abdominal pain, cough, shortness of breath, urinary symptoms. BS was 588 on arrival with elevated wbc. Patient related that she had been feeling poorly for three days prior to admission and was not taking her insulin with regularity. Further investigation revealed an elevated troponin with st elevation in lateral leads. She was taken to the experimental machining lab manager ANGIOGRAPHIC RESULTS The left main artery Normal The left anterior descending artery Is widely patent with ZENA-3 flow. There is a stent in the proximal segment which is widely patent free of in-stent restenosis with excellent proximal distal transitioning. The mid LAD has mild 10 to 20% stenoses The circumflex artery Is a nondominant vessel with an ostial 30 to 40% stenosis. The first obtuse marginal artery is moderate in size and widely patent. There is a small second obtuse marginal artery less than 2 mm in diameter with proximal 90% stenoses. There appears to be a third obtuse marginal artery in which at site of origin cannot be angiographically determined. The distal portion of this vessel fills via left to left collaterals from the LAD. This vessel appears to be less than 2 mm in diameter The right coronary artery Is a dominant vessel with a stent in the ostial proximal segment which is widely patent free of in-stent restenosis with excellent proximal distal transitioning. 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 Patient's myocardial infarction is a secondary stress myocardial infarction from the DKA 2. Supportive care as necessary which should include treating the primary underlying condition which is DKA 3. MOSES inhibitors and beta-blockers once stable. 4. Continue insulin drip until DKA resolves, will defer to primary treating team 5. LDL less than 55 6. Echocardiogram Thursday morning 7. Patient may require LifeVest prior to being discharged home 8. Telemetry with supportive care Currently on insulin gtt at 20, will follow dka protocol. [facility] History 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: Reports:: Anxiety, Coronary Artery Disease, Diabetes Mellitus Type 2, Hyperlipidemia, Hypertension, Myocardial Infarction Denies:: Asthma, Cancer, Chronic Obstructive Pulmonary Disease (COPD), Diabetes Mellitus Type 1, Internal Pacemaker, MRSA, Seizures *Have you ever received a pneumonia vaccine?: Yes *Have you received a flu vaccine this season?: Yes Other 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: Reports: Arthritis, Fibromyalgia, Other. Denies: Blood Transfusion Reaction Laterality Cases: Bilateral: Arthroscopy Knee, Arthroscopy Shoulder, Other Other Surgeries: Yes: No Previous Surgery, Appendectomy, Cardiac Catheterization (03/26/2020), Cholecystectomy, Colonoscopy, Coronary Stent, Hysterectomy-Total, Other. 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 Housing: house Household Members: family *Travel in the last 8 weeks: None
--- NOTE | 2020-11-18 16:02 | PC.NURSE ---
16fr dinh catheter inserted. Aprox 1400mL UOP in bag. Specimen sent to lab for UA.
[2020-11-18 16:05] LABS: Microscopic, Urine URINE MICROSCOPIC (MICROSCOPIC)
[2020-11-18 16:06] LABS: Appearance,Urine CLEAR (Clear); Blood, Urine 1+ (Negative); Color,Urine YELLOW (Yellow); Glucose,Urine (UA) 2+ (Negative); Ketones,Urine 2+ (Negative); Leukocyte Esterase,Urine Negative (Negative); Nitrate,Urine Negative (Negative); Protein,Urine TRACE (Negative); Specific Gravity, Urine 1.015 (1.005-1.030); Urobilinogen,Urine 0.2 EU/dl (0.2)
[2020-11-18 16:08] LABS: Anion Gap 14.1 mEq/L (5-15); Blood Urea Nitrogen 61 mg/dl (7-17); Calcium 8.1 mg/dl (8.4-10.2); Carbon Dioxide 15 mmol/L (22.0-30.0); Chloride 107 mmol/L (98-107); Creatinine Clearance Estimated 56 mL/min (50-200); Estimated Glomerular Filt Rate 52 ml/min (>60); GFR (African American) 63 ML/MIN (>60); Glucose 213 mg/dl (74-100); Potassium 3.1 mmoL/L (3.5-5.1); Sodium 133 mmol/L (136-145)
[2020-11-18 16:09] LABS: Bilirubin,Urine Negative (Negative)
[2020-11-18 16:21] LABS: Amorphous Sediment,Urine Trace /lpf; Squamous Epithelial Cell,Urine Occasional #/hpf (0-5); WBC,Urine Occasional #/hpf (0-3)
--- NOTE | 2020-11-18 17:16 | PC.NURSE ---
fsbs 168 so infusion remains at 20units/hr
--- NOTE | 2020-11-18 17:35 | PC.NURSE ---
per cathlab dr. randhawa had only wanted one bag of ns given run at 100ml/hr so will place dc order for when ns is finished
[2020-11-18 18:22] LABS: Acetone, Serum (Rapid) None Detected (None Detect)
--- NOTE | 2020-11-18 19:04 | ECG_ITS ---
APPROVED REPORT Exam: Resting ECG HR:155 bpm ECG Measurements Heart Rate 155 AXES ND 136 P 0 QRSd 72 QRS -16 QT 310 T 11 QTc 498 Conclusion Sinus tachycardia Low voltage QRS Inferior infarct, possibly acute Cannot rule out Anteroseptal infarct, age undetermined - unchanged from prior tracings Abnormal ECG Electronically signed by : Aploinar Odonnell, 11/20/2020 07:05:31
--- NOTE | 2020-11-18 19:37 | PC.NURSE ---
Addendum entered by Chrissy Mccall RN 11/18/20 20:31: parameters are for the esmolol drip. Original Note: patient heart rate increased to 160s. patient bared down and heart rate came back down. about 10 minutes later patient heart rate went back up and bairing down did not work. state ekg obtained and taken to er doc, actuary manager contacted as well. dr. randhawa was notified of er docs reading of ekg. he stated it was not a stemi, patient had showed some elevation after heart cath. he then stated he wanted to start an esmolol drip. bolus of 0.25mg/kg over a minute parameters of heart rate under 100 but greater than 60. and then to start the esmolol drip at 50mcg/kg/min. pharmacy was contacted, they stated they would call back
[2020-11-18 20:22] LABS: POC Glucose,Bedside 168 (70-110)
[2020-11-18 20:22] LABS: POC Glucose,Bedside 150 (70-110)
[2020-11-18 20:22] LABS: POC Glucose,Bedside 214 (70-110)
[2020-11-18 20:22] LABS: POC Glucose,Bedside 166 (70-110)
[2020-11-18 20:22] LABS: POC Glucose,Bedside 272 (70-110)
[2020-11-18 20:22] LABS: POC Glucose,Bedside 226 (70-110)
--- NOTE | 2020-11-18 20:31 | PC.NURSE ---
patient has done okay this shift. some oozing at cath site, and dressing having a hard time remaining on site. dressing replaced 4 times and drainage has decreased. patient is severely excoriated under skin fold of abdomen with some serisang drainage, and foul smell, aware. at shift change noted acetone to be negative. called and spoke with dr. jaquez who stated to start lantus 40mg once, and to start high intensity sliding scale and switch fluids to ns at 75ml/hr. patient has tolerated a clear liquid diet well. heart rate remains elevated. bolus of esmolol given at 1955. heart rate decreased to 140s. no change in bp noted. systolic remained 122 and greater. report given to cosme gaviria
--- NOTE | 2020-11-18 20:39 | PC.WOUNDNOTE ---
Wound Location: wound to bottom of r foot. still healing. redness. minimal tunneling
--- NOTE | 2020-11-18 20:41 | PC.WOUNDNOTE ---
Wound Location: severe excoriatiion under r side of abdominal skin folds. dressing on heart cath site. odor noted. slight serisang drainage from excoriation Odor Y/N:yes
--- NOTE | 2020-11-18 20:42 | PC.WOUNDNOTE ---
Wound Location: l sided abdominal fold excoration with serisang drainage. foul smelling
--- NOTE | 2020-11-18 20:43 | PC.WOUNDNOTE ---
Wound Location:bottom of l foot, mostly healed
[2020-11-19] VITALS (41 sets, daily range): BP systolic 67–158; BP diastolic 41–94; PULSE 70–134; RESP 16–18; TEMP 36.4–37.7; O2SAT 95–100; BMI 49.6
--- NOTE | 2020-11-19 01:52 | PC.NURSE ---
She is A&Ox4. She is on contact precautions for pending CRE. Her heart rate is below 100. Esmolol weaned to 5mcg/kg/min at this time r/t BP low. She is resting in bed at this time. She denies pain. She denies SOA and weakness. She reports having a poor appetite. She is voiding per f/c. Urine is yellow, clear.
[2020-11-19 03:28] LABS: POC Glucose,Bedside 152 (70-110)
[2020-11-19 03:28] LABS: POC Glucose,Bedside 134 (70-110)
[2020-11-19 03:28] LABS: POC Glucose,Bedside 125 (70-110)
[2020-11-19 03:35] LABS: POC Glucose,Bedside 189 (70-110)
[2020-11-19 05:22] LABS: POC Glucose,Bedside 196 (70-110)
[2020-11-19 05:49] LABS: Basophils % 0.1 % (0.1-2.0); Eosinophils # 0.1 K/mm3 (0.0-0.4); Eosinophils % 0.8 % (0.1-12.0); Hematocrit 36.2 % (37.0-47.0); Lymphocytes # 1.4 K/mm3 (0.7-4.5); Lymphocytes % 9.1 % (10-50); Mean Corpuscular HGB Conc 33.2 g/dL (31.8-35.4); Mean Corpuscular Hemoglobin 26.9 pg (27.0-31.2); Mean Corpuscular Volume 80.8 fl (81-99); Mean Platelet Volume 8.4 fl (7.4-10.4); Monocytes # 1.3 K/mm3 (0.1-1.0); Monocytes % 8.3 % (1.7-9.3); Neutrophils # 12.4 K/mm3 (1.8-7.8); Neutrophils % 81.8 % (37.0-80.0); Platelet Count 232 K/mm3 (142-424); Red Blood Count 4.48 M/mm3 (4.20-5.40); Red Cell Distribution Width 15.8 % (11.5-17.5); White Blood Count 15.2 K/mm3 (4.8-10.8)
[2020-11-19 05:51] LABS: MANUAL DIFFERENTIAL MANUAL DIFFERENTIAL (MANUAL DIFF)
--- NOTE | 2020-11-19 05:55 | PC.NURSE ---
charted on wrong patient, current information is correct
[2020-11-19 06:01] LABS: Anion Gap 8.4 mEq/L (5-15); Blood Urea Nitrogen 40 mg/dl (7-17); Calcium 7.8 mg/dl (8.4-10.2); Carbon Dioxide 18 mmol/L (22.0-30.0); Chloride 110 mmol/L (98-107); Creatinine Clearance Estimated 74 mL/min (50-200); Estimated Glomerular Filt Rate 66 ml/min (>60); GFR (African American) 80 ML/MIN (>60); Glucose 191 mg/dl (74-100); Magnesium 2.2 mg/dl (1.6-2.3); Potassium 3.4 mmoL/L (3.5-5.1); Sodium 133 mmol/L (136-145)
[2020-11-19 06:02] LABS: Lymphocytes % 12 % (10-50); Monocytes % 1 % (2-9); Neutrophils % 77 % (42-76); Total Cells Counted 100
[2020-11-19 06:03] LABS: Platelet Estimate Normal; RBC Morphology Normal; Rouleaux 1+
--- NOTE | 2020-11-19 08:53 | CA_ITS ---
APPROVED REPORT EXAM: Comprehensive 2D, Doppler, and color-flow Echocardiogram Plastics Worker: Aracely Sifuentes CRT Ht: 5 ft 6 in Wt: 312lbs BSA: 2.42 BP: 145/82 mmHg Indications: STEMI, Takotsubo CM, CAD, 30-35% EF on cath Conclusion 1. Very limited and poor study, endocardial surfaces are very poorly visualized, left ventricle appears to be normal size, visually estimated ejection fraction is probably 35%, there is marked hypokinesis involving the mid to distal septum, anterior, anterior apical and apical wall. 2. A repeat study with Definity contrast is recommended. Electronically signed by : Abelino Mendoza, 11/20/2020 05:54:24
--- NOTE | 2020-11-19 11:00 | HMH.ACPN2 ---
Internal Medicine - PN: Subj *Date: 11/19/20 *Time: 08:15 Exam Vital signs and Labs for Last 24 Hours: Temp Pulse Resp BP Pulse Ox 97.8 F 95 H 20 140/77 100 11/19/20 08:00 11/19/20 08:00 11/18/20 15:50 11/19/20 08:00 11/19/20 08:00 Laboratory Results - last 24 hr 11/18/20 09:23: POC Glucose 396 H* 11/18/20 10:23: POC Glucose 348 H* 11/18/20 10:42: Troponin I 0.93 H 11/18/20 10:42: Hgb 13.5 D 11/18/20 10:42: Sodium 133 L, Potassium 3.8 D, Chloride 106, Carbon Dioxide 11 L D, Anion Gap 19.8 H, BUN 66 H, Creatinine 1.40 H D, Estimated Creat Clear 44, Estimated GFR 39 L, Est GFR ( Amer) 48 L D, Glucose 330 H D, Calcium 8.0 L D 11/18/20 11:16: POC Glucose 287 H 11/18/20 12:04: POC Glucose 308 H* 11/18/20 13:01: POC Glucose 272 H 11/18/20 14:08: POC Glucose 226 H 11/18/20 15:06: POC Glucose 214 H 11/18/20 15:30: Sodium 133 L, Potassium 3.1 L, Chloride 107, Carbon Dioxide 15 L D, Anion Gap 14.1, BUN 61 H, Creatinine 1.10 H D, Estimated Creat Clear 56, Estimated GFR 52 L, Est GFR ( Amer) 63 D, Glucose 213 H D, Calcium 8.1 L 11/18/20 15:45: Urine Color Yellow, Urine Appearance Clear, Urine pH 6.0, Ur Specific [place] 1.015, Urine Protein Trace, Urine Glucose (UA) 2+, Urine Ketones 2+, Urine Blood 1+, Urine Nitrate Negative, Urine Bilirubin Negative, Urine Urobilinogen 0.2, Ur Leukocyte Esterase Negative, Urine RBC None, Urine WBC Occasional, Ur Squamous Epith Cells Occasional, Amorphous Sediment Trace, Urine Bacteria None 11/18/20 17:13: POC Glucose 168 H 11/18/20 17:40: Acetone Level None detected 11/18/20 18:37: POC Glucose 166 H 11/18/20 18:47: POC Glucose 150 H 11/18/20 20:01: POC Glucose 134 H 11/18/20 21:00: POC Glucose 125 H 11/18/20 22:56: POC Glucose 152 H 11/19/20 03:16: POC Glucose 189 H 11/19/20 04:59: POC Glucose 196 H 11/19/20 05:30: WBC 15.2 H D, RBC 4.48, Hgb 12.0 L D, Hct 36.2 L, MCV 80.8 L, MCH 26.9 L, MCHC 33.2, RDW 15.8, Plt Count 232 D, MPV 8.4, Neut % (Auto) 81.8 H, Lymph % (Auto) 9.1 L, [place] % (Auto) 8.3, Eos % (Auto) 0.8, Baso % (Auto) 0.1, Neut # (Auto) 12.4 H, Lymph # (Auto) 1.4, [place] # (Auto) 1.3 H, Eos # (Auto) 0.1, Baso # (Auto) 0.0, Total Counted 100, Neutrophils % (Manual) 77 H, Band Neutrophils % 10.0 H, Lymphocytes % (Manual) 12, Monocytes % (Manual) 1 L, Platelet Estimate Normal, RBC Morphology Normal, Rouleaux 1+ 11/19/20 05:30: Sodium 133 L, Potassium 3.4 L, Chloride 110 H, Carbon Dioxide 18 L, Anion Gap 8.4, BUN 40 H D, Creatinine 0.90, Estimated Creat Clear 74, Estimated GFR 66, Est GFR ( Amer) 80 D, Glucose 191 H, Calcium 7.8 L, Phosphorus 2.0 L, Magnesium 2.2 I & O for Last 24 hours: Intake & Output 11/16/20 11/17/20 11/18/20 11/19/20 11:59 11:59 11:59 11:59 Intake Total 3139 / 3139 Output Total 1750 / 1750 Balance 1389 / 1389 Weight 308 lb 4 oz 309 lb 1.409 oz - Constitutional no acute distress, obese - *Routine HEENT Exam Head: Present: normocephalic Eye: Present: PERRL ENT: Present: mucous membranes moist - *Routine Neck Exam Present: supple. Absent: lymphadenopathy - *Routine Respiratory Exam Present: CTA bilaterally - *Routine Cardiovascular Exam Present: RRR - *Routine Abdominal Exam Present: soft, normoactive bowel sounds, obese. Absent: tenderness - *Routine Extremities Exam Absent: cyanosis, clubbing, edema - *Routine Skin Exam Present: warm, wounds. Absent: rash Comments: lt foot healing scab, rt ball of foot red dime size area severe excoriation rt abd skin folds- cath dressing in place left side abd fold excoriation see pic in notes - *Routine Neurological Exam Present: alert - Routine Psychiatric Exam Present: normal affect Assessment and Plan (1) STEMI (ST elevation myocardial infarction) Status: Acute Category: Medical Code(s): I21.3 - ST elevation (STEMI) myocardial infarction of unspecified site (2) Marcie infection Status: Acute Category: Medical Code(s): B37.9 - Candidiasis
[2020-11-19 11:13] LABS: POC Glucose,Bedside 157 (70-110)
--- NOTE | 2020-11-19 11:30 | PC.NURSE ---
0730-Esmolol drip weaned to off
--- NOTE | 2020-11-19 11:30 | PC.NURSE ---
Patient has had increase in HR to 140-145 per telemetry, Javi Barrera notified, given one time dose of metoprolol tartrate 5mg IVP at this time
--- NOTE | 2020-11-19 12:50 | HMH.CNCARD ---
History of Present Illness Consult date: 11/19/20 Requesting physician: [place] [facility] Consult reason: chest pain Chief complaint: STEMI Additional 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:: 1. CAD A. RAMSEY to LAD, CX and RCA, 2016. OM disease relegated to medical management. B. STEMI, 11/18/2020, [facility] ANGIOGRAPHIC RESULTS The left main artery Normal The left anterior descending artery Is widely patent with ZENA-3 flow. There is a stent in the proximal segment which is widely patent free of in-stent restenosis with excellent proximal distal transitioning. The mid LAD has mild 10 to 20% stenoses The circumflex artery Is a nondominant vessel with an ostial 30 to 40% stenosis. The first obtuse marginal artery is moderate in size and widely patent. There is a small second obtuse marginal artery less than 2 mm in diameter with proximal 90% stenoses. There appears to be a third obtuse marginal artery in which at site of origin cannot be angiographically determined. The distal portion of this vessel fills via left to left collaterals from the LAD. This vessel appears to be less than 2 mm in diameter The right coronary artery Is a dominant vessel with a stent in the ostial proximal segment which is widely patent free of in-stent restenosis with excellent proximal distal transitioning. 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 Patient's myocardial infarction is a secondary stress myocardial infarction from the DKA 2. Supportive care as necessary which should include treating the primary underlying condition which is DKA 3. MOSES inhibitors and beta-blockers once stable. 4. Continue insulin drip until DKA resolves, will defer to primary treating team 5. LDL less than 55 6. Echocardiogram Thursday morning 7. Patient may require LifeVest prior to being discharged home 8. Telemetry with supportive care 2. DM, poorly controlled 3. Morbid obesity 4. Hypertension/hypertensive heart disease/diastolic dysfunction 5. Hyperlipidemia History of present illness: 50-year-old white female with known prior coronary artery stenting in 2015 presented to the emergency department for 1 week increasing nausea and vomiting with associated weakness. Patient reportedly got up to go the bathroom yesterday and fell hitting her head at which time her mother had her transported for further evaluation. In the ER work-up patient was noted to have elevated troponin with questionable ST elevation on EKG in the lateral leads. STEMI protocol was activated and patient was taken to the cardiac Braid Pattern Setter along with institution of IV heparin, Brilinta and aspirin. No intervention was needed and it was felt that the patient's non-STEMI was related to her DKA and poorly controlled diabetes. Due to concern for apical ballooning and echocardiogram has been ordered this morning with results pending. Patient denies any chest pain at this time but still feels weak. Due to elevated heart rate last evening she was started on an esmolol drip with improvement in her heart rate into the mid 80 bpm range. The esmolol drip was weaned this morning and patient was doing well but slowly began having increased heart rate along with a short run of nonsustained ventricular tachycardia. After an IV dose of metoprolol this morning (on top of her usual carvedilol dose) the patient's blood pressure did drop into the systolic range of around 90 mmHg. IV fluids were continued. Patient's heart r
--- NOTE | 2020-11-19 14:04 | PC.NURSE ---
2940- Notified Javi Barrera that patients blood pressure is declining after receiving IV lopressor, current BP 64/38, MAP 46, given order to start phenylephrine drip, titrate to keep systolic pressure >90
--- NOTE | 2020-11-19 14:06 | PC.NURSE ---
1405- BP 82/47 MAP 58, increased phenylephrine to 110mcg at this time
[2020-11-19 16:28] LABS: POC Glucose,Bedside 213 (70-110)
--- NOTE | 2020-11-19 17:33 | HMH.ORTHOCON ---
*Admission Date: 11/18/20 <Shagufta Bustos - 11/19/20 18:11> *Reason for consult:: B/L DM foot ulcers <Shagufta Bustos - 11/19/20 18:11> *History of present illness: *Admission Date: 11/18/20 *Chief complaint: dka,stemi *History of present illness: Is a 50-year-old female with a history of diabetes mellitus presenting with a 3-day history of nausea, vomiting and diarrhea with generalized weakness. Patient states she has not been compliant with her insulin because she did not feel well. No fever, abdominal pain, cough, shortness of breath, urinary symptoms. BS was 588 on arrival with elevated wbc. Patient related that she had been feeling poorly for three days prior to admission and was not taking her insulin with regularity. Further investigation revealed an elevated troponin with st elevation in lateral leads. She was taken to the calibration laboratory technician. *Podiatry consult Patient is a current patient of ours and is being treated for her B/L Sub 1st metatarsal DM ulcers. Patient was last seen in our office on 11/12/2020 where her DM ulcers were cleaned and debrided and dressed with Ag+silver dressings daily. The sites look stable.She had just finished a course of Cipro 500mg x 2weeks antibiotic therapy. There is no active drainage and does not appear to be her current source of infection. I will clean and debride them again at bedside and redress them. [facility] History 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: Reports:: Anxiety, Coronary Artery Disease, Diabetes Mellitus Type 2, Hyperlipidemia, Hypertension, Myocardial Infarction Denies:: Asthma, Cancer, Chronic Obstructive Pulmonary Disease (COPD), Diabetes Mellitus Type 1, Internal Pacemaker, MRSA, Seizures *Have you ever received a pneumonia vaccine?: Yes *Have you received a flu vaccine this season?: Yes Other 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: Reports: Arthritis, Fibromyalgia, Other. Denies: Blood Transfusion Reaction Laterality Cases: Bilateral: Arthroscopy Knee, Arthroscopy Shoulder, Other Other Surgeries: Yes: No Previous Surgery, Appendectomy, Cardiac Catheterization (03/26/2020), Cholecystectomy, Colonoscopy, Coronary Stent, Hysterectomy-Total, Other. 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 Housing: house Household Members: family *Travel in the last 8 weeks: None - Psychiatric History Pschychiatric History:: Reports:: Anxiety Family Hx:: Cancer <Shagufta Bustos 11/19/20 18:11> [facility] History I have reviewed the patient's past medical history: Yes <Shagufta Bustos 11/19/20 18:11> 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: Reports:: Anxiety, Coronary Artery Disease, Diabetes Mellitus Type 2, Hyperlipidemia, Hypertension, Myocardial Infarction Denies:: Asthma, Cancer, Chronic Obstructive Pulmonary Disease (COPD), Diabetes Mellitus Type 1, Internal Pacemaker, MRSA, Seizures <Shagufta Bustos 11/19/20 18:11> *Have you ever received a pneumonia vaccine?: Yes <Shagufta Bustos 11/19/20 18:11> *Have you received a flu vaccine this season?: Yes <Shagufta Bustos 11/19/20 18:11> Other 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: Reports: Arthritis, Fibromyalgia, Other. Denies: Blood Transfusion Reaction <Shagufta Bustos 11/19/20 18:11> Laterality Cases: Bilateral: Arthroscopy Knee, Arthroscopy Shoulder, Other <Shagufta Bustos 11/19/20 18:11> Other Surgeries: Yes: No Previous Surgery, Appendectomy, Cardiac Catheterization (03/26/2020), Cholecystectomy, Colonoscopy, Coronary Stent, Hysterectomy-Total, Other. No: Pacemaker <Shagufta Bustos 11/19/20 18:11> Amputation: No <Shagufta Bustos 11/19/20 18:11> Fractures: No <Shagufta Bustos 11/19/20 18:11> - *Social History Last grade of school completed: Some college <Shagufta Bustos 11/19/20 18:11> Smoking Status: Former smoker <Corrie Bustos
[2020-11-19 20:59] LABS: POC Glucose,Bedside 215 (70-110)
[2020-11-20] VITALS (48 sets, daily range): BP systolic 82–130; BP diastolic 44–77; PULSE 73–98; RESP 16–18; TEMP 36.6–37.2; O2SAT 91–100; BMI 49.6
--- NOTE | 2020-11-20 | CA_ITS ---
APPROVED REPORT EXAM: Comprehensive 2D, Doppler, and color-flow Echocardiogram Septic Tank Servicer: Aracely Sifuentes CRT Ht: 5 ft 6 in Wt: 308lbs BSA: 2.40 BP: 145/82 mmHg Indications: DEFINITY Echo Enhancing Agent Indication: Endocardial border delineation Agent(s) / Amount(s) Used: Definity 4 cc Comments: Definity Conclusion 1. Limited study with Definity contrast was obtained, despite use of Definity contrast endocardial borders are still poorly visualized, visually estimated ejection fraction approximately 30%, with marked hypokinesis involving the mid to distal septum anterior, anterior apical and apical wall, there is no obvious left ventricular thrombus seen. 2. No significant pericardial effusion noted. Electronically signed by : Abelino Mendoza, 11/21/2020 05:24:26
--- NOTE | 2020-11-20 04:38 | PC.NURSE ---
2000 levo titrated down to 10 mcq/min per orddered parameters.
--- NOTE | 2020-11-20 04:41 | PC.NURSE ---
2100 levo titrated down to 8mcq/min per ordered parameters.
--- NOTE | 2020-11-20 04:43 | PC.NURSE ---
2300 levo titrated to 6 mcq/min per ordered parameters.
--- NOTE | 2020-11-20 04:45 | PC.NURSE ---
0045 levo titrated to 6mcq/min per ordered parameters.
--- NOTE | 2020-11-20 04:45 | PC.NURSE ---
0230 levo titrated to 2mcq/min per ordered parameters.
--- NOTE | 2020-11-20 04:47 | PC.NURSE ---
0400 levo d/c per ordered parameters. will wontinue to monitor.
[2020-11-20 05:43] LABS: POC Glucose,Bedside 171 (70-110)
--- NOTE | 2020-11-20 05:46 | PC.NURSE ---
0547 levo started back at 2 mcq/min due to systolic and mean blood pressure sustained under ordered parameters.
--- NOTE | 2020-11-20 06:14 | PC.NURSE ---
pt summary wake a/o X4 breath sounds are clear bilaterally. sats have remained 95% or above on room air. cardiac rehab nurse hasshown sr with frequent pac, pjc, and pvc. able to titrate levophed to 2 mcq/min pts bp sustained within ordered parameters. dinh to gravity with clear yellow urine. complaints of nausea hroughout night treated succesfully with zofran. nystatin applied to abdominal folds.
[2020-11-20 06:20] LABS: Basophils % 0.2 % (0.1-2.0); Eosinophils # 0.3 K/mm3 (0.0-0.4); Eosinophils % 2.7 % (0.1-12.0); Lymphocytes # 2.7 K/mm3 (0.7-4.5); Lymphocytes % 21.8 % (10-50); Mean Corpuscular HGB Conc 32.9 g/dL (31.8-35.4); Mean Corpuscular Hemoglobin 26.6 pg (27.0-31.2); Mean Corpuscular Volume 80.7 fl (81-99); Mean Platelet Volume 8.5 fl (7.4-10.4); Monocytes # 0.8 K/mm3 (0.1-1.0); Monocytes % 6.8 % (1.7-9.3); Neutrophils # 8.4 K/mm3 (1.8-7.8); Neutrophils % 68.5 % (37.0-80.0); Platelet Count 197 K/mm3 (142-424); Red Blood Count 3.96 M/mm3 (4.20-5.40); Red Cell Distribution Width 16.2 % (11.5-17.5); White Blood Count 12.3 K/mm3 (4.8-10.8)
[2020-11-20 06:30] LABS: Anion Gap 8.1 mEq/L (5-15); Blood Urea Nitrogen 24 mg/dl (7-17); Calcium 7.5 mg/dl (8.4-10.2); Carbon Dioxide 21 mmol/L (22.0-30.0); Chloride 107 mmol/L (98-107); Creatinine Clearance Estimated 77 mL/min (50-200); Estimated Glomerular Filt Rate 75 ml/min (>60); GFR (African American) 91 ML/MIN (>60); Glucose 161 mg/dl (74-100); Potassium 3.1 mmoL/L (3.5-5.1); Sodium 133 mmol/L (136-145)
[2020-11-20 06:44] LABS: Hemoglobin 10.5 g/dL (12.2-16.2)
--- NOTE | 2020-11-20 08:27 | HMH.ORTHPN ---
Subjective Date: 11/20/20 Time: 08:00 Principal diagnosis: B/L foot DM ulcers to Sub 1st metatarsals Interval history: Patient is resting in bed this morning she is feeling a little bit better her color has improved since yesterday. Patient states she did not sleep at all last night had a little bit of a difficult night but is feeling little better this morning. She is tolerating her clear diets still trying to balance out her heart rate and blood pressures with medication this morning. Blood sugars have been stable. Patient stated she got a bath this morning at 2 AM and they are using nystatin for the rash on the abdomen folds. I will clean and dress bilateral foot diabetic ulcers. I did bring some silver to apply to the the sites and will cover with a large Band-Aid. This is the wound regimen patient has been utilizing at home. I did bring the patient some silver and placed it in a sterile specimen cup for future dressing changes while she is inpatient she may take this home with her when she is discharged. PN: Obj Ex Vital signs: Temp Pulse Resp BP Pulse Ox 99 F 90 16 90/58 L 97 11/20/20 04:00 11/20/20 06:45 11/20/20 06:45 11/20/20 06:45 11/20/20 06:45 - Constitutional no acute distress - Routine HEENT Exam Head: Present: normocephalic Eye: Present: EOMI ENT: Present: mucous membranes moist - Routine Neck Exam Present: supple, full ROM, trachea midline - Routine Chest/Breast/Axilla Exam Chest wall: Absent: tenderness - Routine Respiratory Exam Absent: accessory muscle use, respiratory distress - Routine Cardiovascular Exam Present: RRR - Routine Abdominal Exam Present: soft, obese - Routine Extremities Exam Present: pulses intact, normal capillary refill. Absent: calf tenderness - Detailed Lower Extremity Exam Bottom foot image: 1 - Right Sub 1st met: yvon wound callus: 1.0 x 1.0cm; wound: 0.6 x 0.5 x 0.1cm; 100% granular wound base 2 - Left sub 1st met: yvon wound callus: 0.4 x 0.4 cm; wound:0.3 x 0.2 x 0.1cm; 100% granular wound base - Routine Back/Spine/Pelvis Exam Back/Spine: Present: full ROM - Routine Skin Exam Present: intact, dry, wounds - Routine Neurological Exam Present: oriented X3, moving all extremities, vision grossly intact, hearing grossly intact - Routine Psychiatric Exam Present: normal affect, cooperative - Urinary Catheter Management Lopez Cath placed during this visit: no Progress Note: A&P (1) STEMI (ST elevation myocardial infarction) Status: Acute (2) Marcie infection Status: Acute (3) DKA (diabetic ketoacidoses) Status: Acute (4) CAD (coronary artery disease) Status: Chronic (5) Charcot's joint of left foot Start date: 11/19/20 Status: Chronic (6) Charcot's joint of right foot Start date: 11/19/20 Status: Chronic (7) Essential hypertension Status: Chronic (8) History of myocardial infarction Status: Acute (9) Obesity, Class III, BMI 40-49.9 (morbid obesity) Start date: 11/19/20 Status: Chronic (10) Status post foot surgery Start date: 11/19/20 Status: Chronic (11) Stented coronary artery Status: Chronic (12) Diabetic ulcer of left foot due to type 2 diabetes mellitus Start date: 11/19/20 Status: Acute (13) Encounter for wound care Start date: 11/19/20 Status: Acute (14) Diabetic ulcer of right foot due to type 2 diabetes mellitus Start date: 11/19/20 Status: Acute (15) Keratosis Start date: 11/19/20 Status: Acute (16) Ulcer of right foot due to type 2 diabetes mellitus Start date: 11/19/20 Status: Chronic Assessment and Plan for All Diagnoses:: Assessment and plan all Dx Assessment and Plan for all problems:: Plan: Ulcer of right foot due to type 2 diabetes mellitus & Ulcer of left foot due to type 2 diabetes mellitus, Keratosis The wounds were
--- NOTE | 2020-11-20 08:59 | HMH.PNCARD ---
Subjective Date: 11/20/20 Time: 08:59 Principal diagnosis: Takotsubo Cardiomyopathy Interval history: 50-year-old white female in bed lying flat in no acute distress. Patient is more alert today with no complaints of chest pain or shortness of breath. She continues on Levophed low-dose with blood pressure systolic in the 90's mm Hg range. Beta-armin was held overnight and morning meds have been held so far due to the low blood pressure. Telemetry shows sinus rhythm in the 90s beats per minute range. Echocardiogram from yesterday was a technically difficult study with recommendation to repeat with Definity contrast for better delineation of cardiac function. Exam Vital signs and Labs for Last 24 Hours: Temp Pulse Resp BP Pulse Ox 99 F 90 16 90/58 L 97 11/20/20 04:00 11/20/20 06:45 11/20/20 06:45 11/20/20 06:45 11/20/20 06:45 Laboratory Results - last 24 hr 11/19/20 11:03: POC Glucose 157 H 11/19/20 16:21: POC Glucose 213 H 11/19/20 20:50: POC Glucose 215 H 11/20/20 05:29: WBC 12.3 H, RBC 3.96 L, Hgb 10.5 L D, Hct 32.0 L, MCV 80.7 L, MCH 26.6 L, MCHC 32.9, RDW 16.2, Plt Count 197, MPV 8.5, Neut % (Auto) 68.5, Lymph % (Auto) 21.8, [place] % (Auto) 6.8, Eos % (Auto) 2.7, Baso % (Auto) 0.2, Neut # (Auto) 8.4 H, Lymph # (Auto) 2.7, [place] # (Auto) 0.8, Eos # (Auto) 0.3, Baso # (Auto) 0.0 11/20/20 05:29: Sodium 133 L, Potassium 3.1 L, Chloride 107, Carbon Dioxide 21 L, Anion Gap 8.1, BUN 24 H D, Creatinine 0.80, Estimated Creat Clear 77, Estimated GFR 75, Est GFR ( Amer) 91, Glucose 161 H, Calcium 7.5 L 11/20/20 05:34: POC Glucose 171 H I & O for Last 24 hours: Intake & Output 11/17/20 11/18/20 11/19/20 11/20/20 11:59 11:59 11:59 11:59 Intake Total 3139 / 3139 760 / 760 Output Total 1750 / 1750 2300 / 2300 Balance 1389 / 1389 -1540 / -1540 Weight 308 lb 4 oz 309 lb 1.409 oz 308 lb 10.354 oz - Constitutional no acute distress - *Routine HEENT Exam Head: Present: normocephalic Eye: Present: EOMI, PERRL ENT: Present: mucous membranes moist - *Routine Neck Exam Present: supple. Absent: lymphadenopathy - *Routine Respiratory Exam Present: CTA bilaterally - *Routine Cardiovascular Exam Present: RRR - *Routine Abdominal Exam Present: soft, normoactive bowel sounds. Absent: tenderness - *Routine Extremities Exam Present: edema. Absent: cyanosis, clubbing - *Routine Skin Exam Present: warm. Absent: rash - *Routine Neurological Exam Present: alert, oriented X3 Progress Note: A&P (1) STEMI (ST elevation myocardial infarction) Status: Acute (2) Marcie infection Status: Acute (3) DKA (diabetic ketoacidoses) Status: Acute (4) CAD (coronary artery disease) Status: Chronic (5) Charcot's joint of left foot Status: Chronic (6) Charcot's joint of right foot Status: Chronic (7) Essential hypertension Status: Chronic (8) History of myocardial infarction Status: Acute (9) Obesity, Class III, BMI 40-49.9 (morbid obesity) Status: Chronic (10) Status post foot surgery Status: Chronic (11) Stented coronary artery Status: Chronic (12) Diabetic ulcer of left foot due to type 2 diabetes mellitus Status: Acute (13) Encounter for wound care Status: Acute (14) Diabetic ulcer of right foot due to type 2 diabetes mellitus Status: Acute (15) Keratosis Status: Acute (16) Ulcer of right foot due to type 2 diabetes mellitus Status: Chronic (17) Takotsubo cardiomyopathy Status: Acute Assessment and Plan for All Diagnoses:: 1. STEMI secondary to DKA with Takotsubo cardiomyopathy picture including apical hypokinesis. Plan will be to repeat echocardiogram with Definity contrast for better evaluation of cardiac function. 2. Coronary artery disease with prior multivessel coronary stenting in 2016. Cardiac catheterization this time did not reveal any significant macrovascular disease. 3. Takotsubo cardiomyopathy in t
--- NOTE | 2020-11-20 10:06 | HMH.ACPN2 ---
Internal Medicine - PN: Subj *Date: 11/21/20 *Time: 06:53 Interval history: doing better - more alert - weaning off drip - will advance diet Exam Vital signs and Labs for Last 24 Hours: Temp Pulse Resp BP Pulse Ox 99 F 90 16 90/58 L 97 11/20/20 04:00 11/20/20 06:45 11/20/20 06:45 11/20/20 06:45 11/20/20 06:45 Laboratory Results - last 24 hr 11/19/20 11:03: POC Glucose 157 H 11/19/20 16:21: POC Glucose 213 H 11/19/20 20:50: POC Glucose 215 H 11/20/20 05:29: WBC 12.3 H, RBC 3.96 L, Hgb 10.5 L D, Hct 32.0 L, MCV 80.7 L, MCH 26.6 L, MCHC 32.9, RDW 16.2, Plt Count 197, MPV 8.5, Neut % (Auto) 68.5, Lymph % (Auto) 21.8, [place] % (Auto) 6.8, Eos % (Auto) 2.7, Baso % (Auto) 0.2, Neut # (Auto) 8.4 H, Lymph # (Auto) 2.7, [place] # (Auto) 0.8, Eos # (Auto) 0.3, Baso # (Auto) 0.0 11/20/20 05:29: Sodium 133 L, Potassium 3.1 L, Chloride 107, Carbon Dioxide 21 L, Anion Gap 8.1, BUN 24 H D, Creatinine 0.80, Estimated Creat Clear 77, Estimated GFR 75, Est GFR ( Amer) 91, Glucose 161 H, Calcium 7.5 L 11/20/20 05:34: POC Glucose 171 H I & O for Last 24 hours: Intake & Output 11/17/20 11/18/20 11/19/20 11/20/20 11:59 11:59 11:59 11:59 Intake Total 3139 / 3139 1120 / 1120 Output Total 1750 / 1750 2300 / 2300 Balance 1389 / 1389 -1180 / -1180 Weight 308 lb 4 oz 309 lb 1.409 oz 308 lb 10.354 oz - Constitutional no acute distress, obese - *Routine HEENT Exam Head: Present: normocephalic Eye: Present: EOMI, PERRL ENT: Present: mucous membranes dry - *Routine Neck Exam Present: supple - *Routine Respiratory Exam Present: decreased breath sounds - *Routine Cardiovascular Exam Present: RRR - *Routine Abdominal Exam Present: soft - *Routine Extremities Exam Absent: calf tenderness - *Routine Skin Exam Present: intact - *Routine Neurological Exam Present: alert, CN II-XII intact - Routine Psychiatric Exam Present: cooperative Assessment and Plan (1) STEMI (ST elevation myocardial infarction) Status: Acute Category: Medical Code(s): I21.3 - ST elevation (STEMI) myocardial infarction of unspecified site (2) Marcie infection Status: Acute Category: Medical Code(s): B37.9 - Candidiasis, unspecified (3) DKA (diabetic ketoacidoses) Status: Acute Qualifiers: Diabetes mellitus type: type 1 Diabetes mellitus complication detail: without coma Qualified Code(s): E10.10 - Type 1 diabetes mellitus with ketoacidosis without coma Category: Medical Code(s): E11.10 - Type 2 diabetes mellitus with ketoacidosis without coma (4) CAD (coronary artery disease) Status: Chronic Qualifiers: Coronary Disease-Associated Artery/Lesion type: [place] artery Category: Medical Code(s): I25.10 - Atherosclerotic heart disease of [place] coronary artery without angina pectoris (5) Charcot's joint of left foot Start date: 11/19/20 Status: Chronic Category: Medical Code(s): M14.672 - Charcot's joint, left ankle and foot (6) Charcot's joint of right foot Start date: 11/19/20 Status: Chronic Category: Medical Code(s): M14.671 - Charcot's joint, right ankle and foot (7) Essential hypertension Status: Chronic Category: Medical Code(s): I10 - Essential (primary) hypertension (8) History of myocardial infarction Status: Acute Category: Medical Code(s): I25.2 - Old myocardial infarction (9) Obesity, Class III, BMI 40-49.9 (morbid obesity) Start date: 11/19/20 Status: Chronic Category: Medical Code(s): E66.01 - Morbid (severe) obesity due to excess calories (10) Status post foot surgery Start date: 11/19/20 Status: Chronic Category: Surgical Code(s): Z98.890 - Other specified postprocedural states (11) Stented coronary artery Status: Chronic Category: Surgical Code(s): Z95.5 - Presence of coronary angioplasty implant and graft (12) Diabetic ulcer of left foot due to type 2 diabetes mellitus Start date: 11/19/20
[2020-11-20 11:29] LABS: POC Glucose,Bedside 202 (70-110)
--- NOTE | 2020-11-20 16:54 | PC.NURSE ---
Patient has been pleasant and cooperative this shift, remains on ra, lungs cta, has been up to chair this shift, dinh catheter removed this afternoon, continues on levophed drip at this time at 1mcg, will continue to attempt to wean, 2+ edema noted peripherally, abd soft and nontender, active bowel sounds in all quads, nystatin powder applied to abd folds and groin this shift, no s/s of distress noted, will continue to monitor.
--- NOTE | 2020-11-20 17:43 | PC.NURSE ---
Levophed titrated to off at this time
[2020-11-20 17:58] LABS: POC Glucose,Bedside 368 (70-110)
[2020-11-20 21:53] LABS: POC Glucose,Bedside 288 (70-110)
--- NOTE | 2020-11-20 22:36 | PC.NURSE ---
She continues in contact precautions r/t pending CRE screen. She is A&Ox4. Received scheduled pain medication. Reported pain in her bilateral hips and back. DSG in place on her right foot. She is unsure of her last BM.
[2020-11-21] VITALS (14 sets, daily range): BP systolic 101–158; BP diastolic 56–77; PULSE 77–100; RESP 16–20; TEMP 36.3–37.1; O2SAT 94–100; BMI 49.7
[2020-11-21 06:22] LABS: Basophils % 0.2 % (0.1-2.0); Eosinophils # 0.5 K/mm3 (0.0-0.4); Eosinophils % 3.5 % (0.1-12.0); Hematocrit 32.4 % (37.0-47.0); Hemoglobin 10.8 g/dL (12.2-16.2); Lymphocytes # 3.2 K/mm3 (0.7-4.5); Lymphocytes % 24.1 % (10-50); Mean Corpuscular HGB Conc 33.3 g/dL (31.8-35.4); Mean Corpuscular Hemoglobin 27.7 pg (27.0-31.2); Mean Corpuscular Volume 83.2 fl (81-99); Monocytes # 0.9 K/mm3 (0.1-1.0); Monocytes % 6.5 % (1.7-9.3); Neutrophils # 8.8 K/mm3 (1.8-7.8); Neutrophils % 65.7 % (37.0-80.0); Platelet Count 219 K/mm3 (142-424); Red Blood Count 3.89 M/mm3 (4.20-5.40); Red Cell Distribution Width 15.9 % (11.5-17.5); White Blood Count 13.4 K/mm3 (4.8-10.8)
[2020-11-21 06:41] LABS: Anion Gap 8.2 mEq/L (5-15); Blood Urea Nitrogen 16 mg/dl (7-17); Carbon Dioxide 23 mmol/L (22.0-30.0); Chloride 106 mmol/L (98-107); Creatinine Clearance Estimated 77 mL/min (50-200); Estimated Glomerular Filt Rate 75 ml/min (>60); GFR (African American) 91 ML/MIN (>60); Glucose 337 mg/dl (74-100); Potassium 4.2 mmoL/L (3.5-5.1); Sodium 133 mmol/L (136-145)
[2020-11-21 06:58] LABS: POC Glucose,Bedside 322 (70-110)
--- NOTE | 2020-11-21 10:09 | HMH.PNCARD ---
Subjective Date: 11/21/20 Time: 10:09 Principal diagnosis: Takotsubo Cardiomyopathy Interval history: This is a 50-year-old white female who was admitted to the hospital for a STEMI. She underwent left cardiac catheterization and did not require any percutaneous intervention. She was on a Levophed drip low-dose for hypotension. She has been weaned off of this and her blood pressure is stable today. She is somewhat tachycardic with a heart rate around 101 today. She denies any shortness of breath or edema. She states that she did have a faint pain in her chest overnight but this was much better than it had been prior to coming into the hospital. She denies any fever, chills, nausea, vomiting, diarrhea, PND or orthopnea. Exam Vital signs and Labs for Last 24 Hours: Temp Pulse Resp BP Pulse Ox 98.4 F 97 H 17 133/71 94 L 11/21/20 04:00 11/21/20 06:00 11/20/20 20:00 11/21/20 06:00 11/21/20 06:00 Laboratory Results - last 24 hr 11/20/20 11:12: POC Glucose 202 H 11/20/20 16:07: POC Glucose 368 H* 11/20/20 21:40: POC Glucose 288 H 11/21/20 05:25: POC Glucose 322 H* 11/21/20 05:46: WBC 13.4 H, RBC 3.89 L, Hgb 10.8 L, Hct 32.4 L, MCV 83.2, MCH 27.7, MCHC 33.3, RDW 15.9, Plt Count 219, MPV 9.0, Neut % (Auto) 65.7, Lymph % (Auto) 24.1, [place] % (Auto) 6.5, Eos % (Auto) 3.5, Baso % (Auto) 0.2, Neut # (Auto) 8.8 H, Lymph # (Auto) 3.2, [place] # (Auto) 0.9, Eos # (Auto) 0.5 H, Baso # (Auto) 0.0 11/21/20 05:46: Sodium 133 L, Potassium 4.2 D, Chloride 106, Carbon Dioxide 23, Anion Gap 8.2, BUN 16 D, Creatinine 0.80, Estimated Creat Clear 77, Estimated GFR 75, Est GFR ( Amer) 91, Glucose 337 H, Calcium 8.0 L I & O for Last 24 hours: Intake & Output 11/18/20 11/19/20 11/20/20 11/21/20 23:59 23:59 23:59 23:59 Intake Total 2436 / 3139 1457 / 1463 1333 / 1363 Output Total 1300 / 1300 1750 / 1750 1900 / 1900 Balance 1136 / 1839 -293 / -287 -567 / -537 Weight 308 lb 4 oz 308 lb 10.354 oz 308 lb 10.354 oz 309 lb 4.937 oz Microbiology Reports for the Last 24 Hours: Microbiology 11/18/20 17:40 Blood Blood Culture - Preliminary NO GROWTH AFTER 48 HOURS 11/18/20 17:40 Blood Blood Culture - Preliminary NO GROWTH AFTER 48 HOURS 11/18/20 15:45 Urine,Catheterized Urine Culture - Preliminary NO GROWTH AFTER 24 HOURS Narrative: Echo with Definity contrast shows: 1. Limited study with Definity contrast was obtained, despite use of Definity contrast endocardial borders are still poorly visualized, visually estimated ejection fraction approximately 30%, with marked hypokinesis involving the mid to distal septum anterior, anterior apical and apical wall, there is no obvious left ventricular thrombus seen. 2. No significant pericardial effusion noted. - Constitutional no acute distress, morbidly obese - *Routine HEENT Exam Head: Present: normocephalic, atraumatic Eye: Present: EOMI, PERRL ENT: Present: mucous membranes moist - *Routine Neck Exam Present: supple, full ROM, normal carotid upstroke. Absent: JVD, carotid bruit, lymphadenopathy - *Routine Respiratory Exam Present: CTA bilaterally - *Routine Cardiovascular Exam Present: RRR, Normal S1, Normal S2. Absent: murmur - *Routine Abdominal Exam Present: soft, normoactive bowel sounds. Absent: tenderness, distended - *Routine Extremities Exam Present: full ROM, pulses intact, normal capillary refill. Absent: cyanosis, clubbing, edema - *Routine Skin Exam Present: intact, warm. Absent: erythema, rash - *Routine Neurological Exam Present: alert, oriented X3, CN II-XII intact. Absent: sensory deficit, motor deficit Progress Note: A&P (1) Takotsubo cardiomyopathy Status: Acute (2) STEMI (ST elevation myocardial infarction) Status: Acute (3) DKA (diabetic ketoacidoses) Status: Acute (4) CAD (coronary artery disease) Statu
--- NOTE | 2020-11-21 11:44 | HMH.PTEV ---
Physical Therapy Evaluation Rehab PT IP Evaluation Start: 11/21/20 09:55 Freq: ONCE Status: Active Protocol: Document 11/21/20 11:41 PHORINGRID (Rec: 11/21/20 11:44 PHORNE [id number]) Subjective/History History History 50 yowf adm to [facility] with DKA and STEMI now S/P heart cath. She reports feeling better overall, has 2 steps to enter the home and is independent with all mobility at baseline. Subjective Subjective Pt reports no c/o this am. Rehab PT IP Eval Objective Appearance Patient Behavior Appropriate Patient Orientation Person,Place,Time Difficulty following instructions none Speech Pattern Clear Ambulation Patient Able to Ambulate Yes Ambulation Observation IP General Gait Pattern Observation Wide Based Gait Ambulation Distance (feet) 10 Ambulation Assistive Device None Ambulation Ability Contact Guard/Hand Hold Balance Ability to Arise Able, uses arms to help Sitting Balance Steady, safe Standing Balance Steady, wide stance Dynamic Sitting Balance Ability Good Dynamic Standing Balance Ability Good Transfers Bed Transfer Ability Contact Guard/Hand Hold Chair Transfer Ability Contact Guard/Hand Hold Sit to Stand Bed Transfer Ability Contact Guard/Hand Hold Sit to Stand Chair Transfer Ability Contact Guard/Hand Hold ROM All Extremities PT ROM Status WFL MMT All Extremities PT MMT WFL Rehab PT IP prob,goals,plan Problems Date of Evaluation: 11/21/20 PT IP Problems Bed Mobility,Transfers,Gait Rehab Potential Rehab Potential Good Plan PT Intervention Plan Bed Mobility,Transfers,Gait, Therapeutic Exercise PT Plan Frequency BID Duration LOS Discharge Goals Bed Transfer Ability Supervision/Stand by Sit to Stand Chair Transfer Ability Supervision/Stand by Ambulation Assistive Device None Ambulation Distance (feet) 30 Discharge Plan PT Discharge Plan Pt is appropriate to return home once medically stable. G -code Required No Eval Complexity Eval Charge Codes 83098 - Moderate Complexity PHYSICIAN CERTIFICATION: I certify the specified therapy services for Bee Colon are required, authorized, and reviewed every 30 days.
[2020-11-21 11:54] LABS: POC Glucose,Bedside 361 (70-110)
--- NOTE | 2020-11-21 12:14 | HMH.ORTHPN ---
Subjective Date: 11/21/20 <Shagufta Bustos - 11/21/20 12:33> Time: 08:00 <Shagufta Bustos - 11/21/20 12:33> Principal diagnosis: Takotsubo Cardiomyopathy <Shagufta Bustos - 11/21/20 12:33> Interval history: Bee is doing much better this morning, her color and alertness has improved since yesterday. She states her blood pressures and heart rate is more stabilized and she just feels better. I we will proceed to do her dressing changes again on bilateral subfirst met's ulcers. I will clean the ulcers and debride them, dressed them back in the silver dressings and large Band-Aids. The Right sub 1st met when taking the old dressings off, I noticed that it had a small amount of drainage to it. There was scant amount of creamy whitish color drainage expressed when I pushed on it. I was able to obtain a wound culture from the site. The patient's left subfirst met looks fabulous there was no drainage it is very dry and actually appears to be a little smaller today. I cleaned the areas off with Betadine and then proceeded to use the #15 blade to debride the areas and redressed them with a silver and a Band-Aid. <Shagufta Bustos - 11/21/20 12:33> PN: Obj Ex Vital signs: Temp Pulse Resp BP Pulse Ox 98.8 F 89 18 132/79 99 11/23/20 04:00 11/23/20 04:00 11/23/20 04:00 11/23/20 04:00 11/23/20 04:00 <Dione Castro - 11/23/20 07:25> Temp Pulse Resp BP Pulse Ox 98.4 F 97 H 17 133/71 94 L 11/21/20 04:00 11/21/20 06:00 11/20/20 20:00 11/21/20 06:00 11/21/20 06:00 <Shagufta Bustos - 11/21/20 12:33> - Constitutional no acute distress, obese <Shagufta Bustos - 11/21/20 12:33> - Routine HEENT Exam Head: Present: normocephalic <Shagufta Bustos - 11/21/20 12:33> Eye: Present: EOMI <Shagufta Bustos 11/21/20 12:33> ENT: Present: mucous membranes moist <Shagufta Bustos 11/21/20 12:33> - Routine Neck Exam Present: full ROM, trachea midline. Absent: JVD <Shagufta Bustos 11/21/20 12:33> - Routine Respiratory Exam Absent: accessory muscle use, respiratory distress <Shagufta Bustos 11/21/20 12:33> - Routine Cardiovascular Exam Present: RRR <Shagufta Bustos 11/21/20 12:33> - Routine Abdominal Exam Absent: soft <Shagufta Bustos 11/21/20 12:33> - Routine Extremities Exam Present: edema, pulses intact, normal capillary refill. Absent: calf tenderness <Shagufta Bustos 11/21/20 12:33> - Detailed Lower Extremity Exam Bottom foot image: 1 - Right Sub 1st met: yvon wound callus: 1.0 x 1.0cm; wound: 0.7 x 0.6 x 0.1cm; 100% granular wound base. * Scant creamy drainage noted and wound culture obtained 11/21/20. 2 - Left sub 1st met: yvon wound callus: 0.4 x 0.4 cm; wound:0.2 x 0.1 x 0cm; 100% granular wound base. <Shagufta Bustos - 11/21/20 12:33> - Routine Back/Spine/Pelvis Exam Back/Spine: Present: full ROM <Shagufta Bustos 11/21/20 12:33> - Routine Skin Exam Present: dry, wounds <Shagufta Bustos 11/21/20 12:33> - Routine Neurological Exam Present: oriented X3, vision grossly intact, hearing grossly intact <Shagufta Bustos 11/21/20 12:33> - Routine Psychiatric Exam Present: normal affect, cooperative <Shagufta Bustos - 11/21/20 12:33> - Urinary Catheter Management Lopez Cath placed during this visit: no <Dione Castro - 11/23/20 07:25> no <Shagufta Bustos - 11/21/20 12:33> Progress Note: A&P (1) Takotsubo cardiomyopathy Status: Acute (2) STEMI (ST elevation myocardial infarction) Status: Acute (3) DKA (diabetic ketoacidoses) Status: Acute (4) CAD (coronary artery disease) Status: Chronic (5) Charcot's joint of left foot Start date: 11/21/20 Status: Chronic (6) Charcot's joint of right foot Start date: 11/21/20 Status: Chronic (7) Essential hypertension Status: Chronic (8) Obesi
--- NOTE | 2020-11-21 15:17 | HMH.OTEV ---
OT Inpatient Evaluation Rehab OT IP Evaluation Start: 11/21/20 09:56 Freq: ONCE Status: Complete Protocol: Document 11/21/20 15:09 URIEL (Rec: 11/21/20 15:17 [facility] [id number]) Rehab OT IP Assessment Subjective History Pt oriented x 3 on arrival. Pt admitted via ED on 11/18/20 due to dka and stemi. Pt has a past medical history of Anxiety, CAD, DM Type 2, Hyperlipidemia, HTN, and ND. Pt reports prior to hospitalization pt lived at home with her parents. Pt claims she was independent with all ADLs. Pt reports she was dependent upon family to complete IADLs. Pt did not use a walker prior to hospitalization. Subjective I live with my mom and dad. Objective Patient Orientation Person,Place,Birthday Bed Mobility bed mobility-scooting,bed mobility - supine/sit,bed mobility - rolling Assist Level Contact Guard/Hand Hold Transfer Training Sit/Stand Transfer Assist Level Contact Guard/Hand Hold Rehab OT IP prob,goals,plan Problems Date of Evaluation: 11/21/20 OT IP Problems Bed Mobility,Transfers,Gait, Balance,Self care,Safety Rehab Potential Rehab Potential Good Plan OT intervention Plan Bed Mobility,Transfers,Gait, Balance,Self care,Safety, Therapeutic Exercise OT Plan Frequency Daily Duration LOS Discharge Goals Bed Mobility Ability Standby Assistance Sit to Stand Chair Transfer Ability Supervision/Stand by Chair Transfer Ability Supervision/Stand by Chair Transfer Technique Sit to/from Ambulatory Chair Transfer Assistive Devices None Feeding Ability Independent Lower Body Dressing Ability Standby Assistance Upper Body Dressing Ability Standby Assistance Bathing Ability Standby Assistance Performing Toilet Hygiene Ability Standby Assistance Commode/Toilet Transfer Technique Sit to/from Ambulatory Discharge Plan OT Discharge Plan Pt is safe to return home with family once medically stable. Eval Complexity Eval Charge Codes 32557 - Moderate Complexity G Codes G -code Required No
--- NOTE | 2020-11-21 17:01 | DIET.NUTRFU ---
Pt tolerating diet advancement well, 75% PO intakes. Weight remains stable. BG increased over past 48hrs- ~270, likely rt meds in D5. Diet education for DM/DKA prevention given.
--- NOTE | 2020-11-21 17:56 | PC.NURSE ---
Pt is alert and oriented x4. Lungs are clear, bowel sounds active. She remains on RA with O2 sats in the upper 90's. She was up to the chair for approx 2 hours this am before returning to bed. She has utilized a BSC with assist x1. Glucose has been elevated at 361 and 296, ssi administered per mar. NSR w/inverted t wave on telemetry. She is currently resting in bed watching tv w/no complaints or requests at this time.
--- NOTE | 2020-11-21 20:12 | HMH.ACPN2 ---
Internal Medicine - PN: Subj *Date: 11/21/20 *Time: 08:50 Interval history: 50-year-old female patient lying in bed resting quietly no respiratory distress noted. She denies chest pain or shortness of breath reports she feels better today than she did yesterday. Levophed has been weaned off, current blood pressure 116/73, pulse 94, oxygen saturations 98% on room air Exam Vital signs and Labs for Last 24 Hours: Temp Pulse Resp BP Pulse Ox 97.4 F L 77 20 109/65 L 98 11/21/20 16:00 11/21/20 18:00 11/21/20 18:00 11/21/20 18:00 11/21/20 18:00 Laboratory Results - last 24 hr 11/20/20 21:40: POC Glucose 288 H 11/21/20 05:25: POC Glucose 322 H* 11/21/20 05:46: WBC 13.4 H, RBC 3.89 L, Hgb 10.8 L, Hct 32.4 L, MCV 83.2, MCH 27.7, MCHC 33.3, RDW 15.9, Plt Count 219, MPV 9.0, Neut % (Auto) 65.7, Lymph % (Auto) 24.1, [place] % (Auto) 6.5, Eos % (Auto) 3.5, Baso % (Auto) 0.2, Neut # (Auto) 8.8 H, Lymph # (Auto) 3.2, [place] # (Auto) 0.9, Eos # (Auto) 0.5 H, Baso # (Auto) 0.0 11/21/20 05:46: Sodium 133 L, Potassium 4.2 D, Chloride 106, Carbon Dioxide 23, Anion Gap 8.2, BUN 16 D, Creatinine 0.80, Estimated Creat Clear 77, Estimated GFR 75, Est GFR ( Amer) 91, Glucose 337 H, Calcium 8.0 L 11/21/20 11:43: POC Glucose 361 H* I & O for Last 24 hours: Intake & Output 11/18/20 11/19/20 11/20/20 11/21/20 23:59 23:59 23:59 23:59 Intake Total 2436 / 3139 1457 / 1463 1333 / 1363 1280 / 1280 Output Total 1300 / 1300 1750 / 1750 1900 / 1900 1600 / 1600 Balance 1136 / 1839 -293 / -287 -567 / -537 -320 / -320 Weight 308 lb 4 oz 308 lb 10.354 oz 308 lb 10.354 oz 309 lb 4.937 oz Microbiology Reports for the Last 24 Hours: Microbiology 11/21/20 08:22 Foot,Right Gram Stain - Final 11/19/20 03:20 Anus CRE Surveillance Culture - Final 11/18/20 15:45 Urine,Catheterized Urine Culture - Final NO GROWTH AFTER 48 HOURS 11/18/20 17:40 Blood Blood Culture - Preliminary NO GROWTH AFTER 48 HOURS 11/18/20 17:40 Blood Blood Culture - Preliminary NO GROWTH AFTER 48 HOURS - Constitutional no acute distress, obese - *Routine HEENT Exam Head: Present: normocephalic Eye: Present: EOMI ENT: Present: mucous membranes moist - *Routine Neck Exam Present: full ROM, trachea midline. Absent: tenderness, tracheal deviation - *Routine Respiratory Exam Present: CTA bilaterally. Absent: accessory muscle use, patient mechanically ventilated - *Routine Cardiovascular Exam Present: RRR. Absent: bradycardia - *Routine Abdominal Exam Present: soft, normoactive bowel sounds, obese. Absent: tenderness, rigid - *Routine Extremities Exam Present: edema, full ROM, pulses intact, calf tenderness. Absent: cyanosis - *Routine Skin Exam Present: intact, dry, warm. Absent: erythema, jaundice - *Routine Neurological Exam Present: alert, oriented X3, altered mental status - Routine Psychiatric Exam Present: normal affect, normal thought process. Absent: unable to assess Assessment and Plan (1) Takotsubo cardiomyopathy Status: Acute Category: Medical Code(s): I51.81 - Takotsubo syndrome (2) STEMI (ST elevation myocardial infarction) Status: Acute Category: Medical Code(s): I21.3 - ST elevation (STEMI) myocardial infarction of unspecified site (3) DKA (diabetic ketoacidoses) Status: Acute Qualifiers: Diabetes mellitus type: type 1 Diabetes mellitus complication detail: without coma Qualified Code(s): E10.10 - Type 1 diabetes mellitus with ketoacidosis without coma Category: Medical Code(s): E11.10 - Type 2 diabetes mellitus with ketoacidosis without coma (4) CAD (coronary artery disease) Status: Chronic Qualifiers: Coronary Disease-Associated Artery/Lesion type: [place] artery Category: Medical Code(s): I25.10 - Atherosclerotic heart disease of [place] coronary artery without angina pectoris
[2020-11-21 20:54] LABS: POC Glucose,Bedside 363 (70-110)
[2020-11-21 20:54] LABS: POC Glucose,Bedside 296 (70-110)
--- NOTE | 2020-11-21 22:00 | PC.NURSE ---
She is A&O x4, Bilateral lungs clear, Bowel sounds x 4 quadrants, Room air no acute distress noted at this time; Capillary refill <3 secs. Patient reports pain level 7/10 in back and hips. She is in contact precautions for CRE. Last BM unknown per patient. Side table and call light within reach, Bed at lowest position. Patient verbalizes no requests at this time.
[2020-11-22] VITALS (11 sets, daily range): BP systolic 109–130; BP diastolic 60–80; PULSE 70–120; RESP 14–20; TEMP 36.8–37.1; O2SAT 95–100; BMI 50.1
[2020-11-22 05:18] LABS: POC Glucose,Bedside 291 (70-110)
[2020-11-22 06:24] LABS: Basophils # 0.1 K/mm3 (0-0.2); Basophils % 0.4 % (0.1-2.0); Eosinophils # 0.5 K/mm3 (0.0-0.4); Eosinophils % 3.7 % (0.1-12.0); Hematocrit 35.6 % (37.0-47.0); Hemoglobin 10.5 g/dL (12.2-16.2); Lymphocytes # 2.7 K/mm3 (0.7-4.5); Lymphocytes % 20.3 % (10-50); Mean Corpuscular HGB Conc 29.5 g/dL (31.8-35.4); Mean Corpuscular Hemoglobin 25.6 pg (27.0-31.2); Mean Corpuscular Volume 86.8 fl (81-99); Mean Platelet Volume 9.4 fl (7.4-10.4); Monocytes # 0.8 K/mm3 (0.1-1.0); Monocytes % 5.8 % (1.7-9.3); Neutrophils # 9.2 K/mm3 (1.8-7.8); Neutrophils % 69.8 % (37.0-80.0); Platelet Count 239 K/mm3 (142-424); Red Cell Distribution Width 15.6 % (11.5-17.5); White Blood Count 13.1 K/mm3 (4.8-10.8)
[2020-11-22 06:41] LABS: Anion Gap 9.8 mEq/L (5-15); Blood Urea Nitrogen 16 mg/dl (7-17); Calcium 8.6 mg/dl (8.4-10.2); Carbon Dioxide 25 mmol/L (22.0-30.0); Chloride 103 mmol/L (98-107); Creatinine Clearance Estimated 77 mL/min (50-200); Estimated Glomerular Filt Rate 75 ml/min (>60); GFR (African American) 91 ML/MIN (>60); Glucose 325 mg/dl (74-100); Potassium 4.8 mmoL/L (3.5-5.1); Sodium 133 mmol/L (136-145)
--- NOTE | 2020-11-22 07:44 | XR_ITS ---
PROCEDURE: XR FOOT RT MIN 3V CLINICAL INDICATION: Ulcer Soft tissue ulcers COMPARISON: CR XR FOOT WT BEARING RT 3V from 07/27/2020 CR XR FOOT WT BEARING LT 3V from 07/27/2020 CR XR FOOT WT BEARING RT 3V from 09/03/2020 CR XR FOOT WT BEARING LT 3V from 09/03/2020 FINDINGS: S/p talocalcaneal, calcaneocuboid, 1st metatarsal tarsal fusion. The screws in bone plate are not significantly changed. Osteoarthritic changes are present at the 1st metatarsophalangeal joint where the the head of that screw appears to extend into the joint space. There is calcaneocuboid fusion. Subtalar joint appears fused. The talonavicular joint appears fused. No hardware malfunction evident. Hammertoe deformity is noted 1st through 5th toes. No bony lytic process apparent that would indicate acute osteomyelitis. IMPRESSION: Status post extensive foot surgery with fusion as described above not significantly changed with no obvious hardware malfunction and no bony destructive process apparent Dictated by: Hemal Pedersen MD 11/22/2020 17:53 Hemal Pedersen MD in [place] 11/22/2020 17:53
--- NOTE | 2020-11-22 07:44 | XR_ITS ---
PROCEDURE: XR FOOT LT MIN 3V CLINICAL INDICATION: Ulcer COMPARISON: CR XR FOOT WT BEARING RT 3V from 07/27/2020 CR XR FOOT WT BEARING LT 3V from 07/27/2020 CR XR FOOT WT BEARING RT 3V from 09/03/2020 CR XR FOOT WT BEARING LT 3V from 09/03/2020 FINDINGS: S/p talocalcaneal fusion. The long screws present extending from the posterior talus into the navicular medial cuneiform and 1st metatarsal as before. The screw is fractured at the distal threaded portion at the distal talar region. Hammertoe deformity is noted to digits 1 through 5. There is fusion of the talonavicular joint but non fusion of the navicular cuneiform joint similar to the previous exam. There are 2 additional screws through the calcaneocuboid area with fusion of that joint. No new areas of bony destruction apparent. Osteosclerosis noted at the talonavicular and talocalcaneal area. There is a faint lucency at the distal aspect of the shaft of the tibia nonspecific. IMPRESSION: Postsurgical changes with fusion and degenerative change with fracture of the long cannulated screw as before at the talar region. No bony destructive process apparent Dictated by: Hemal Pedersen MD 11/22/2020 17:57 Hemal Pedersen MD in [place] 11/22/2020 17:57
--- NOTE | 2020-11-22 08:15 | HMH.PNCARD ---
Subjective Date: 11/22/20 Time: 08:15 Principal diagnosis: Takotsubo Cardiomyopathy Interval history: 50-year-old white female in bed in no acute distress. Much more alert than earlier this week. Patient denies any chest pain, pressure or tightness. Currently having her diabetic foot ulcers attended to by podiatry. Patient is asking about going home. Telemetry shows sinus rhythm in the 90s Systolic pressures in the 115 to 120 mmHg range. Exam Vital signs and Labs for Last 24 Hours: Temp Pulse Resp BP Pulse Ox 98.3 F 90 14 125/73 95 11/22/20 04:00 11/22/20 06:00 11/22/20 04:00 11/22/20 06:00 11/22/20 06:00 Laboratory Results - last 24 hr 11/21/20 11:43: POC Glucose 361 H* 11/21/20 17:09: POC Glucose 296 H 11/21/20 20:41: POC Glucose 363 H* 11/22/20 05:02: POC Glucose 291 H 11/22/20 05:32: WBC 13.1 H, RBC 4.10 L, Hgb 10.5 L, Hct 35.6 L, MCV 86.8, MCH 25.6 L, MCHC 29.5 L, RDW 15.6, Plt Count 239, MPV 9.4, Neut % (Auto) 69.8, Lymph % (Auto) 20.3, [place] % (Auto) 5.8, Eos % (Auto) 3.7, Baso % (Auto) 0.4, Neut # (Auto) 9.2 H, Lymph # (Auto) 2.7, [place] # (Auto) 0.8, Eos # (Auto) 0.5 H, Baso # (Auto) 0.1 11/22/20 05:32: Sodium 133 L, Potassium 4.8, Chloride 103, Carbon Dioxide 25, Anion Gap 9.8, BUN 16, Creatinine 0.80, Estimated Creat Clear 77, Estimated GFR 75, Est GFR ( Amer) 91, Glucose 325 H, Calcium 8.6 I & O for Last 24 hours: Intake & Output 11/19/20 11/20/20 11/21/20 11/22/20 11:59 11:59 11:59 11:59 Intake Total 3139 / 3139 1120 / 1120 1237 / 1237 1030 / 1030 Output Total 1750 / 1750 2300 / 2300 1700 / 1700 1150 / 1150 Balance 1389 / 1389 -1180 / -1180 -463 / -463 -120 / -120 Weight 309 lb 1.409 oz 308 lb 10.354 oz 309 lb 4.937 oz 311 lb 8.211 oz Microbiology Reports for the Last 24 Hours: Microbiology 11/21/20 08:22 Foot,Right Gram Stain - Final 11/19/20 03:20 Anus CRE Surveillance Culture - Final 11/18/20 15:45 Urine,Catheterized Urine Culture - Final NO GROWTH AFTER 48 HOURS - Constitutional no acute distress - *Routine HEENT Exam Head: Present: normocephalic Eye: Present: EOMI, PERRL ENT: Present: mucous membranes moist - *Routine Neck Exam Present: supple. Absent: lymphadenopathy - *Routine Respiratory Exam Present: CTA bilaterally - *Routine Cardiovascular Exam Present: RRR - *Routine Abdominal Exam Present: soft, normoactive bowel sounds. Absent: tenderness - *Routine Extremities Exam Absent: cyanosis, clubbing, edema - *Routine Skin Exam Present: warm. Absent: rash - *Routine Neurological Exam Present: alert, oriented X3 Progress Note: A&P (1) Takotsubo cardiomyopathy Status: Acute (2) STEMI (ST elevation myocardial infarction) Status: Acute (3) DKA (diabetic ketoacidoses) Status: Acute (4) CAD (coronary artery disease) Status: Chronic (5) Charcot's joint of left foot Status: Chronic (6) Charcot's joint of right foot Status: Chronic (7) Essential hypertension Status: Chronic (8) Obesity, Class III, BMI 40-49.9 (morbid obesity) Status: Chronic (9) Status post foot surgery Status: Chronic (10) Stented coronary artery Status: Chronic (11) Diabetic ulcer of left foot due to type 2 diabetes mellitus Status: Acute (12) Diabetic ulcer of right foot due to type 2 diabetes mellitus Status: Acute (13) Keratosis Status: Acute Assessment and Plan for All Diagnoses:: 1. Takotsubo cardiomyopathy with STEMI-like presentation in the setting of DKA related to medication noncompliance due to vomiting. Patient has been restarted on metoprolol therapy and is tolerating it well. Will restart ramipril at a lower dose of 5 mg daily today. Continue aspirin and prasugrel. Left heart catheterization performed without need for intervention. LifeVest ordered due to cardiomyopathy with EF of 30%. 2. Hyperlipidemia, on statin therapy 3. Diabetes with diabetic foot
--- NOTE | 2020-11-22 09:17 | HMH.ORTHPN ---
Subjective Date: 11/22/20 <Shagufta Bustos - 11/22/20 09:26> Time: 08:05 <Shagufta uBstos - 11/22/20 09:26> Principal diagnosis: Takotsubo Cardiomyopathy <Shagufta Bustos - 11/22/20 09:26> Interval history: Patient is doing much better this morning and looks more herself. Patient is wanting to go home, but it looks as if she will be staying another day. I will dress and clean up the B/L sub 1st mets today. Dressing will be silver and a large bandaid. Her Right sub 1st wound culture has not fully resulted yet but does not currently show any growth at this time. <Shagufta Bustos - 11/22/20 09:28> PN: Obj Ex Vital signs: Temp Pulse Resp BP Pulse Ox 98.8 F 89 18 132/79 99 11/23/20 04:00 11/23/20 04:00 11/23/20 04:00 11/23/20 04:00 11/23/20 04:00 <MatthewDione flanagan - 11/23/20 07:23> Temp Pulse Resp BP Pulse Ox 98.3 F 90 14 125/73 95 11/22/20 04:00 11/22/20 06:00 11/22/20 04:00 11/22/20 06:00 11/22/20 06:00 <Shagufta Bustos - 11/22/20 09:26> - Constitutional no acute distress, obese <SebaschanelShagufta 11/22/20 09:26> - Routine HEENT Exam Head: Present: normocephalic <AkashShagufta Villalpando - 11/22/20 09:26> Eye: Present: EOMI <SebaschanelShagufta Kwasi - 11/22/20 09:26> ENT: Present: mucous membranes moist <AkashShagufta Kwasi - 11/22/20 09:26> - Routine Neck Exam Present: supple, trachea midline <AkashShaguftamiranda Freire 11/22/20 09:26> - Routine Chest/Breast/Axilla Exam Chest wall: Absent: tenderness <AkashShagufta L 11/22/20 09:26> - Routine Respiratory Exam Absent: accessory muscle use, respiratory distress <Shagufta Bustos 11/22/20 09:26> - Routine Cardiovascular Exam Present: RRR <Shagufta Bustos 11/22/20 09:26> - Routine Abdominal Exam Present: soft <Shagufta Bustos 11/22/20 09:26> - Routine Extremities Exam Present: full ROM, pulses intact. Absent: calf tenderness <Shagufta Bustos 11/22/20 09:26> - Detailed Lower Extremity Exam Bottom foot image: 1 - Right Sub 1st met: yvon wound callus: 1.0 x 1.0cm; wound: 0.6 x 0.5 x 0.1cm; 100% granular wound base 2 - Left sub 1st met: yvon wound callus: 0.2 x 0.2 x 0cm; 100% granular wound base. <Shagufta Bustos 11/22/20 09:26> - Routine Back/Spine/Pelvis Exam Back/Spine: Present: full ROM <Shagufta Bustos 11/22/20 09:26> - Routine Skin Exam Present: dry, wounds <Shagufta Bustos 11/22/20 09:26> - Routine Neurological Exam Present: oriented X3, vision grossly intact, hearing grossly intact <Shagufta Bustos 11/22/20 09:26> - Routine Psychiatric Exam Present: normal affect, cooperative <Shagufta Bustos 11/22/20 09:26> - Urinary Catheter Management Lopez Cath placed during this visit: no <Dione Castro - 11/23/20 07:23> no <Shagufta Bustos - 11/22/20 09:28> Progress Note: A&P (1) Takotsubo cardiomyopathy Status: Acute (2) STEMI (ST elevation myocardial infarction) Status: Acute (3) DKA (diabetic ketoacidoses) Status: Acute (4) CAD (coronary artery disease) Status: Chronic (5) Charcot's joint of left foot Status: Chronic (6) Charcot's joint of right foot Status: Chronic (7) Essential hypertension Status: Chronic (8) Obesity, Class III, BMI 40-49.9 (morbid obesity) Status: Chronic (9) Status post foot surgery Status: Chronic (10) Stented coronary artery Status: Chronic (11) Diabetic ulcer of left foot due to type 2 diabetes mellitus Status: Acute (12) Diabetic ulcer of right foot due to type 2 diabetes mellitus Status: Acute (13) Keratosis Status: Acute <Shagufta Bustos - 11/22/20 09:28> (1) Takotsubo cardiomyopathy Status: Acute (2) STEMI (ST elevation myocardial infarction) Status: Acute (3) DKA (diabetic ketoacidoses) Status: Acute (4) CAD (coronary artery disease)
--- NOTE | 2020-11-22 10:11 | HMH.ACPN2 ---
Internal Medicine - PN: Subj *Date: 11/22/20 *Time: 08:00 Interval history: pt alert and oriented x3. Exam Vital signs and Labs for Last 24 Hours: Temp Pulse Resp BP Pulse Ox 98.3 F 90 14 125/73 95 11/22/20 04:00 11/22/20 06:00 11/22/20 04:00 11/22/20 06:00 11/22/20 06:00 Laboratory Results - last 24 hr 11/21/20 11:43: POC Glucose 361 H* 11/21/20 17:09: POC Glucose 296 H 11/21/20 20:41: POC Glucose 363 H* 11/22/20 05:02: POC Glucose 291 H 11/22/20 05:32: WBC 13.1 H, RBC 4.10 L, Hgb 10.5 L, Hct 35.6 L, MCV 86.8, MCH 25.6 L, MCHC 29.5 L, RDW 15.6, Plt Count 239, MPV 9.4, Neut % (Auto) 69.8, Lymph % (Auto) 20.3, [place] % (Auto) 5.8, Eos % (Auto) 3.7, Baso % (Auto) 0.4, Neut # (Auto) 9.2 H, Lymph # (Auto) 2.7, [place] # (Auto) 0.8, Eos # (Auto) 0.5 H, Baso # (Auto) 0.1 11/22/20 05:32: Sodium 133 L, Potassium 4.8, Chloride 103, Carbon Dioxide 25, Anion Gap 9.8, BUN 16, Creatinine 0.80, Estimated Creat Clear 77, Estimated GFR 75, Est GFR ( Amer) 91, Glucose 325 H, Calcium 8.6 I & O for Last 24 hours: Intake & Output 11/19/20 11/20/20 11/21/20 11/22/20 11:59 11:59 11:59 11:59 Intake Total 3139 / 3139 1120 / 1120 1237 / 1237 1510 / 1510 Output Total 1750 / 1750 2300 / 2300 1700 / 1700 1150 / 1150 Balance 1389 / 1389 -1180 / -1180 -463 / -463 360 / 360 Weight 309 lb 1.409 oz 308 lb 10.354 oz 309 lb 4.937 oz 311 lb 8.211 oz Microbiology Reports for the Last 24 Hours: Microbiology 11/21/20 08:22 Foot,Right Gram Stain - Final 11/21/20 08:22 Foot,Right Wound Culture - Preliminary NO GROWTH AFTER 24 HOURS 11/19/20 03:20 Anus CRE Surveillance Culture - Final 11/18/20 15:45 Urine,Catheterized Urine Culture - Final NO GROWTH AFTER 48 HOURS - Constitutional no acute distress, obese - *Routine HEENT Exam Head: Present: normocephalic Eye: Present: PERRL ENT: Present: mucous membranes moist - *Routine Neck Exam Present: supple. Absent: lymphadenopathy - *Routine Respiratory Exam Present: decreased breath sounds, CTA bilaterally - *Routine Cardiovascular Exam Present: RRR - *Routine Abdominal Exam Present: soft, normoactive bowel sounds, obese. Absent: tenderness - *Routine Extremities Exam Absent: cyanosis, clubbing, edema - *Routine Skin Exam Present: warm, wounds. Absent: rash Comments: redness to groin and abd skin folds dressing to spenser feet - *Routine Neurological Exam Present: alert, oriented X3 - Routine Psychiatric Exam Present: normal affect Assessment and Plan (1) Takotsubo cardiomyopathy Status: Acute Category: Medical Code(s): I51.81 - Takotsubo syndrome (2) STEMI (ST elevation myocardial infarction) Status: Acute Category: Medical Code(s): I21.3 - ST elevation (STEMI) myocardial infarction of unspecified site (3) DKA (diabetic ketoacidoses) Status: Acute Qualifiers: Diabetes mellitus type: type 1 Diabetes mellitus complication detail: without coma Qualified Code(s): E10.10 - Type 1 diabetes mellitus with ketoacidosis without coma Category: Medical Code(s): E11.10 - Type 2 diabetes mellitus with ketoacidosis without coma (4) CAD (coronary artery disease) Status: Chronic Qualifiers: Coronary Disease-Associated Artery/Lesion type: [place] artery Category: Medical Code(s): I25.10 - Atherosclerotic heart disease of [place] coronary artery without angina pectoris (5) Charcot's joint of left foot Start date: 11/21/20 Status: Chronic Category: Medical Code(s): M14.672 - Charcot's joint, left ankle and foot (6) Charcot's joint of right foot Start date: 11/21/20 Status: Chronic Category: Medical Code(s): M14.671 - Charcot's joint, right ankle and foot (7) Essential hypertension Status: Chronic Category: Medical Code(s): I10 - Essential (primary) hypertension (8) Obesity, Class III, BMI 40-49.9 (morbid obesity) Start maria
--- NOTE | 2020-11-22 10:42 | HMH.ACPN ---
Internal Medicine - PN: Subj *Date: 11/22/20 *Time: 10:42 Exam Vital signs and Labs for Last 24 Hours: Temp Pulse Resp BP Pulse Ox 98.8 F 95 H 16 118/69 97 11/22/20 08:00 11/22/20 08:00 11/22/20 08:00 11/22/20 08:00 11/22/20 08:00 Laboratory Results - last 24 hr 11/21/20 11:43: POC Glucose 361 H* 11/21/20 17:09: POC Glucose 296 H 11/21/20 20:41: POC Glucose 363 H* 11/22/20 05:02: POC Glucose 291 H 11/22/20 05:32: WBC 13.1 H, RBC 4.10 L, Hgb 10.5 L, Hct 35.6 L, MCV 86.8, MCH 25.6 L, MCHC 29.5 L, RDW 15.6, Plt Count 239, MPV 9.4, Neut % (Auto) 69.8, Lymph % (Auto) 20.3, [place] % (Auto) 5.8, Eos % (Auto) 3.7, Baso % (Auto) 0.4, Neut # (Auto) 9.2 H, Lymph # (Auto) 2.7, [place] # (Auto) 0.8, Eos # (Auto) 0.5 H, Baso # (Auto) 0.1 11/22/20 05:32: Sodium 133 L, Potassium 4.8, Chloride 103, Carbon Dioxide 25, Anion Gap 9.8, BUN 16, Creatinine 0.80, Estimated Creat Clear 77, Estimated GFR 75, Est GFR ( Amer) 91, Glucose 325 H, Calcium 8.6 I & O for Last 24 hours: Intake & Output 11/19/20 11/20/20 11/21/20 11/22/20 23:59 23:59 23:59 23:59 Intake Total 1457 / 1463 1333 / 1363 1280 / 1280 500 / 500 Output Total 1750 / 1750 1900 / 1900 1600 / 1950 350 / 350 Balance -293 / -287 -567 / -537 -320 / -670 150 / 150 Weight 140 kg 140 kg 140.3 kg 141.3 kg Microbiology Reports for the Last 24 Hours: Microbiology 11/21/20 08:22 Foot,Right Gram Stain - Final 11/21/20 08:22 Foot,Right Wound Culture - Preliminary NO GROWTH AFTER 24 HOURS 11/19/20 03:20 Anus CRE Surveillance Culture - Final 11/18/20 15:45 Urine,Catheterized Urine Culture - Final NO GROWTH AFTER 48 HOURS Assessment and Plan (1) Takotsubo cardiomyopathy Status: Acute Category: Medical Code(s): I51.81 - Takotsubo syndrome (2) STEMI (ST elevation myocardial infarction) Status: Acute Category: Medical Code(s): I21.3 - ST elevation (STEMI) myocardial infarction of unspecified site (3) DKA (diabetic ketoacidoses) Status: Acute Qualifiers: Diabetes mellitus type: type 1 Diabetes mellitus complication detail: without coma Qualified Code(s): E10.10 - Type 1 diabetes mellitus with ketoacidosis without coma Category: Medical Code(s): E11.10 - Type 2 diabetes mellitus with ketoacidosis without coma (4) CAD (coronary artery disease) Status: Chronic Qualifiers: Coronary Disease-Associated Artery/Lesion type: [place] artery Category: Medical Code(s): I25.10 - Atherosclerotic heart disease of [place] coronary artery without angina pectoris (5) Charcot's joint of left foot Start date: 11/21/20 Status: Chronic Category: Medical Code(s): M14.672 - Charcot's joint, left ankle and foot (6) Charcot's joint of right foot Start date: 11/21/20 Status: Chronic Category: Medical Code(s): M14.671 - Charcot's joint, right ankle and foot (7) Essential hypertension Status: Chronic Category: Medical Code(s): I10 - Essential (primary) hypertension (8) Obesity, Class III, BMI 40-49.9 (morbid obesity) Start date: 11/21/20 Status: Chronic Category: Medical Code(s): E66.01 - Morbid (severe) obesity due to excess calories (9) Status post foot surgery Start date: 11/21/20 Status: Chronic Category: Surgical Code(s): Z98.890 - Other specified postprocedural states (10) Stented coronary artery Status: Chronic Category: Surgical Code(s): Z95.5 - Presence of coronary angioplasty implant and graft (11) Diabetic ulcer of left foot due to type 2 diabetes mellitus Start date: 11/21/20 Status: Acute Category: Medical Code(s): E11.621 - Type 2 diabetes mellitus with foot ulcer; L97.529 - Non-pressure chronic ulcer of other part of left foot with unspecified severity (12) Diabetic ulcer of right foot due to type 2 diabetes mellitus Start date: 11/21/20 Status: Acute Category: Medical Code(s): E11.621 - Typ
[2020-11-22 11:24] LABS: POC Glucose,Bedside 343 (70-110)
[2020-11-22 16:47] LABS: POC Glucose,Bedside 345 (70-110)
[2020-11-22 20:58] LABS: POC Glucose,Bedside 412 (70-110)
[2020-11-23 04:00] VITALS: BP 132/79; PULSE 80; PULSE 89; RESP 18; TEMP 37.1; O2SAT 99
--- NOTE | 2020-11-23 04:15 | PC.NURSE ---
Pt has rested fairly well this shift. He has gotten up to the bsc a couple of times with standby assist to void, no BM noted. Denies CP or SOA. LS CTA. BS +x4. Denies pain other than being sore from being in the bed - pt encouraged to ambulate this morning. Remains alert and oriented x4. Dressings to bilateral feet C/D/I. VSS. No acute distress noted, will continue to monitor.
[2020-11-23 05:00] VITALS: BMI 48.2
[2020-11-23 06:32] LABS: Basophils # 0.1 K/mm3 (0-0.2); Basophils % 0.6 % (0.1-2.0); Eosinophils # 0.4 K/mm3 (0.0-0.4); Eosinophils % 3.4 % (0.1-12.0); Hematocrit 33.8 % (37.0-47.0); Hemoglobin 10.9 g/dL (12.2-16.2); Lymphocytes # 2.8 K/mm3 (0.7-4.5); Lymphocytes % 22.3 % (10-50); Mean Corpuscular HGB Conc 32.4 g/dL (31.8-35.4); Mean Corpuscular Hemoglobin 26.8 pg (27.0-31.2); Mean Corpuscular Volume 82.8 fl (81-99); Mean Platelet Volume 9.6 fl (7.4-10.4); Monocytes # 0.7 K/mm3 (0.1-1.0); Monocytes % 5.8 % (1.7-9.3); Neutrophils # 8.6 K/mm3 (1.8-7.8); Neutrophils % 67.9 % (37.0-80.0); Platelet Count 269 K/mm3 (142-424); Red Blood Count 4.08 M/mm3 (4.20-5.40); Red Cell Distribution Width 16.1 % (11.5-17.5); White Blood Count 12.7 K/mm3 (4.8-10.8)
[2020-11-23 06:37] LABS: Anion Gap 9.4 mEq/L (5-15); Blood Urea Nitrogen 15 mg/dl (7-17); Calcium 8.8 mg/dl (8.4-10.2); Carbon Dioxide 31 mmol/L (22.0-30.0); Chloride 96 mmol/L (98-107); Creatinine Clearance Estimated 77 mL/min (50-200); Estimated Glomerular Filt Rate 75 ml/min (>60); GFR (African American) 91 ML/MIN (>60); Glucose 315 mg/dl (74-100); Potassium 4.4 mmoL/L (3.5-5.1); Sodium 132 mmol/L (136-145)
[2020-11-23 08:00] VITALS: BP 132/77; PULSE 120; PULSE 90; PULSE 99; RESP 18; TEMP 37.6; O2SAT 98
--- NOTE | 2020-11-23 08:29 | P.PN_ITS ---
Subjective Date: 11/23/20 Time: 08:29 Principal diagnosis: Takotsubo Cardiomyopathy Interval history: 50-year-old white female in bed in no acute distress. Denies any chest pain, pressure or tightness overnight. Patient is anxious to go home today. LifeVest noted in the room. Vital signs stable overnight. No significant arrhythmias noted on telemetry. Exam Vital signs and Labs for Last 24 Hours: Temp Pulse Resp BP Pulse Ox 98.8 F 89 18 132/79 99 11/23/20 04:00 11/23/20 04:00 11/23/20 04:00 11/23/20 04:00 11/23/20 04:00 Laboratory Results - last 24 hr 11/22/20 11:17: POC Glucose 343 H* 11/22/20 16:35: POC Glucose 345 H* 11/22/20 20:14: POC Glucose 412 H* 11/23/20 05:40: WBC 12.7 H, RBC 4.08 L, Hgb 10.9 L, Hct 33.8 L, MCV 82.8, MCH 26.8 L, MCHC 32.4, RDW 16.1, Plt Count 269, MPV 9.6, Neut % (Auto) 67.9, Lymph % (Auto) 22.3, [place] % (Auto) 5.8, Eos % (Auto) 3.4, Baso % (Auto) 0.6, Neut # (Auto) 8.6 H, Lymph # (Auto) 2.8, [place] # (Auto) 0.7, Eos # (Auto) 0.4, Baso # (Auto) 0.1 11/23/20 05:40: Sodium 132 L, Potassium 4.4, Chloride 96 L, Carbon Dioxide 31 H D, Anion Gap 9.4, BUN 15, Creatinine 0.80, Estimated Creat Clear 77, Estimated GFR 75, Est GFR ( Amer) 91, Glucose 315 H, Calcium 8.8 I & O for Last 24 hours: Intake & Output 11/20/20 11/21/20 11/22/20 11/23/20 11:59 11:59 11:59 11:59 Intake Total 1120 / 1120 1237 / 1237 1510 / 1510 360 / 360 Output Total 2300 / 2300 1700 / 1700 1150 / 1150 Balance -1180 / -1180 -463 / -463 360 / 360 360 / 360 Weight 308 lb 10.354 oz 309 lb 4.937 oz 311 lb 8.211 oz 303 lb 12.752 oz Microbiology Reports for the Last 24 Hours: Microbiology 11/21/20 08:22 Foot,Right Gram Stain - Final 11/21/20 08:22 Foot,Right Wound Culture - Preliminary NO GROWTH AFTER 24 HOURS - *Routine Respiratory Exam Present: CTA bilaterally - *Routine Cardiovascular Exam Present: RRR - *Routine Neurological Exam Present: alert, oriented X3 Progress Note: A&P (1) Takotsubo cardiomyopathy Status: Acute (2) STEMI (ST elevation myocardial infarction) Status: Acute (3) DKA (diabetic ketoacidoses) Status: Acute (4) CAD (coronary artery disease) Status: Chronic (5) Charcot's joint of left foot Status: Chronic (6) Charcot's joint of right foot Status: Chronic (7) Essential hypertension Status: Chronic (8) Obesity, Class III, BMI 40-49.9 (morbid obesity) Status: Chronic (9) Status post foot surgery Status: Chronic (10) Stented coronary artery Status: Chronic (11) Diabetic ulcer of left foot due to type 2 diabetes mellitus Status: Acute (12) Diabetic ulcer of right foot due to type 2 diabetes mellitus Status: Acute (13) Keratosis Status: Acute Assessment and Plan for All Diagnoses:: Okay for discharge home from cardiology standpoint Home medication recommendations Aspirin 81 mg daily Effient 10 mg daily Metoprolol tartrate 50 mg twice daily Ramipril 5 mg daily Lasix 40 mg daily Imdur 60 mg daily Pravastatin 40 mg daily add Aldactone 25 mg daily Follow-up in our office in 1 to 2 weeks Plan to do limited echocardiogram in 45 days to assess need for ICD implantation.
--- NOTE | 2020-11-23 09:38 | HMH.DCSUM ---
General - General Admission date:: 11/18/20 Discharge date: 11/23/20 HPI HPI: Is a 50-year-old female with a history of diabetes mellitus presenting with a 3-day history of nausea, vomiting and diarrhea with generalized weakness. Patient states she has not been compliant with her insulin because she did not feel well. No fever, abdominal pain, cough, shortness of breath, urinary symptoms. BS was 588 on arrival with elevated wbc. Patient related that she had been feeling poorly for three days prior to admission and was not taking her insulin with regularity. Further investigation revealed an elevated troponin with st elevation in lateral leads. She was taken to the director of cath lab ANGIOGRAPHIC RESULTS The left main artery Normal The left anterior descending artery Is widely patent with ZENA-3 flow. There is a stent in the proximal segment which is widely patent free of in-stent restenosis with excellent proximal distal transitioning. The mid LAD has mild 10 to 20% stenoses The circumflex artery Is a nondominant vessel with an ostial 30 to 40% stenosis. The first obtuse marginal artery is moderate in size and widely patent. There is a small second obtuse marginal artery less than 2 mm in diameter with proximal 90% stenoses. There appears to be a third obtuse marginal artery in which at site of origin cannot be angiographically determined. The distal portion of this vessel fills via left to left collaterals from the LAD. This vessel appears to be less than 2 mm in diameter The right coronary artery Is a dominant vessel with a stent in the ostial proximal segment which is widely patent free of in-stent restenosis with excellent proximal distal transitioning. 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 Patient's myocardial infarction is a secondary stress myocardial infarction from the DKA 2. Supportive care as necessary which should include treating the primary underlying condition which is DKA 3. MOSES inhibitors and beta-blockers once stable. 4. Continue insulin drip until DKA resolves, will defer to primary treating team 5. LDL less than 55 6. Echocardiogram Thursday morning 7. Patient may require LifeVest prior to being discharged home 8. Telemetry with supportive care Currently on insulin gtt at 20, will follow dka protocol. Hospital Course Hospital Course: Laboratory Tests 11/18/20 11/18/20 11/18/20 06:02 06:06 06:20 WBC 23.3 H* RBC 5.77 H Hgb 15.4 Hct 49.8 H MCV 86.3 MCH 26.6 L MCHC 30.8 L RDW 15.6 Plt Count 379 MPV 8.8 Neut % (Auto) 87.6 H Lymph % (Auto) 5.6 L [place] % (Auto) 5.7 Eos % (Auto) 0.7 Baso % (Auto) 0.4 Neut # (Auto) 20.4 H Lymph # (Auto) 1.3 [place] # (Auto) 1.3 H Eos # (Auto) 0.2 Baso # (Auto) 0.1 Total Counted 100 Neutrophils % (Manual) 85 H Band Neutrophils % 5.0 Lymphocytes % (Manual) 10 Monocytes % (Manual) Platelet Estimate Normal RBC Morphology Hypochromasia 2+ Rouleaux 1+ Specimen Source Right radial ABG pH 7.20 L* ABG pCO2 15.8 L ABG pO2 126.3 H ABG HCO3 6.0 L ABG Total CO2 6.5 L ABG O2 Saturation 98 ABG Base Excess -22.0 L Hemal Test Acceptable Sodium Potassium Chloride Carbon Dioxide Anion Gap BUN Creatinine Estimated Creat Clear Estimated GFR Est GFR ( Amer) Glucose POC Glucose Calcium Phosphorus
--- NOTE | 2020-11-23 10:00 | HMH.ORTHPN ---
Subjective Date: 11/23/20 <Shagufta Bustos - 11/23/20 10:12> Time: 08:40 <Shagufta Bustos - 11/23/20 10:12> Principal diagnosis: Takotsubo Cardiomyopathy <Shagufta Bustos - 11/23/20 10:12> Interval history: Patient is doing very well this morning, she is anxious to get home. Patient is being discharged later this morning. VSS. She looks better, color improved and alertness. I plan to do her B/L foot Sub 1st DM wounds dressing and She will be good to go home from our standpoint. Patient already has her follow up with us in Podiatry next week scheduled. <Shagufta Bustos - 11/23/20 10:12> PN: Obj Ex Vital signs: Temp Pulse Resp BP Pulse Ox 99.6 F 120 H 18 132/77 98 11/23/20 08:00 11/23/20 08:00 11/23/20 08:00 11/23/20 08:00 11/23/20 08:00 <Dione Castro - 11/23/20 16:41> Temp Pulse Resp BP Pulse Ox 99.6 F 120 H 18 132/77 98 11/23/20 08:00 11/23/20 08:00 11/23/20 08:00 11/23/20 08:00 11/23/20 08:00 <Shagufta Bustos - 11/23/20 10:12> - Constitutional no acute distress <Shagufta Bustos - 11/23/20 10:12> - Routine HEENT Exam Head: Present: normocephalic <Shagufta Bustos - 11/23/20 10:12> Eye: Present: EOMI <Shagufta Bustos - 11/23/20 10:12> ENT: Present: mucous membranes moist <Shagufta Bustos - 11/23/20 10:12> - Routine Neck Exam Present: supple, full ROM, trachea midline <Shagufta Bustos - 11/23/20 10:12> - Routine Respiratory Exam Absent: accessory muscle use, respiratory distress <Shagufta Bustos - 11/23/20 10:12> - Routine Cardiovascular Exam Present: RRR <Shagufta Bustos - 11/23/20 10:12> - Routine Abdominal Exam Present: soft <Shagufta Bustos 11/23/20 10:12> - Routine Extremities Exam Present: full ROM, pulses intact <Shagufta Bustos 11/23/20 10:12> - Detailed Lower Extremity Exam Bottom foot image: 1 - Right Sub 1st met: yvon wound callus: 1.0 x 1.0cm; wound: 0.6 x 0.5 x 0.1cm; 100% granular wound base 2 - Left sub 1st met: yvon wound callus: 0.2 x 0.2 x 0cm; 100% granular wound base. <Shagufta Bustos 11/23/20 10:12> Comments: I did notice some redness and petechiae like rash to patient's left lower extremity anterior side. Patient denies any pain there is no warmth noted patient also denies any itching to.. Patient's legs does not appear to be edematous. The primary RN was notified she is aware of the rash. <Shagufta Bustos - 11/23/20 10:12> - Routine Back/Spine/Pelvis Exam Back/Spine: Present: full ROM <Shagufta Bustos - 11/23/20 10:12> - Routine Neurological Exam Present: oriented X3 <Shagufta Bustos 11/23/20 10:12> - Routine Psychiatric Exam Present: normal affect, cooperative <Shagufta Bustos 11/23/20 10:12> - Urinary Catheter Management Lopez Cath placed during this visit: no <Kaiden Castroie - 11/23/20 16:41> no <Shagufta Bustos 11/23/20 10:12> Progress Note: A&P (1) Takotsubo cardiomyopathy Status: Acute (2) STEMI (ST elevation myocardial infarction) Status: Acute (3) DKA (diabetic ketoacidoses) Status: Acute (4) CAD (coronary artery disease) Status: Chronic (5) Charcot's joint of left foot Status: Chronic (6) Charcot's joint of right foot Status: Chronic (7) Essential hypertension Status: Chronic (8) Obesity, Class III, BMI 40-49.9 (morbid obesity) Status: Chronic (9) Status post foot surgery Status: Chronic (10) Stented coronary artery Status: Chronic (11) Diabetic ulcer of left foot due to type 2 diabetes mellitus Status: Acute (12) Diabetic ulcer of right foot due to type 2 diabetes mellitus Status: Acute (13) Keratosis Status: Acute <Shagufta Bustos - 11/23/20 10:12> (1) Takotsubo cardiomyopathy Status: Acute (2) STEMI (ST elevation myocardial infarction) Status: Acute (3) DKA (d
--- NOTE | 2020-11-23 10:45 | SW/DCPLANNER ---
I have spoke with this patient regarding discharge plans. Patient stated that she has no needs at home at this time. Patient is not interested in home health services. Patient will discharge later today and does have transportation home.
[2020-11-23 11:04] LABS: POC Glucose,Bedside 306 (70-110)
== END 2020-11-23 11:41 | disposition home or self-care (01) | DRG 622 ==
LOC: ER 06:46 → CATHLAB 07:47 → 2ND 07:59
PROVIDERS: Internal Medicine; Nurse Practitioner Family; Admitting Provider Family Medicine; Emergency Provider Physician Assistant; PCP Internal Medicine; Visit Provider Family Medicine
PROC: B2111ZZ Fluoroscopy of Multiple Coronary Arteries using Low Osmolar Contrast (ICD-10-PCS; principal; 2020-11-18 07:45)
DX: E10.10 Type 1 diabetes mellitus with ketoacidosis without coma (principal); I21.A1 Myocardial infarction type 2; N17.9 Acute kidney failure, unspecified; I51.81 Takotsubo syndrome; Z68.41 Body mass index [BMI] 40.0-44.9, adult; T38.3X6A Underdosing of insulin and oral hypoglycemic [antidiabetic] drugs, initial encounter; F41.9 Anxiety disorder, unspecified; I25.10 Atherosclerotic heart disease of native coronary artery without angina pectoris; E78.5 Hyperlipidemia, unspecified; I10 Essential (primary) hypertension; I25.2 Old myocardial infarction; I95.9 Hypotension, unspecified; B37.2 Candidiasis of skin and nail; E10.621 Type 1 diabetes mellitus with foot ulcer; L97.529 Non-pressure chronic ulcer of other part of left foot with unspecified severity; L97.519 Non-pressure chronic ulcer of other part of right foot with unspecified severity; L57.0 Actinic keratosis; E66.01 Morbid (severe) obesity due to excess calories; E10.610 Type 1 diabetes mellitus with diabetic neuropathic arthropathy; Z86.14 Personal history of Methicillin resistant Staphylococcus aureus infection; Z87.891 Personal history of nicotine dependence; Z83.3 Family history of diabetes mellitus; Z79.1 Long term (current) use of non-steroidal anti-inflammatories (NSAID); Z79.82 Long term (current) use of aspirin; Z79.4 Long term (current) use of insulin; Z79.891 Long term (current) use of opiate analgesic; Z79.899 Other long term (current) drug therapy; Z88.5 Allergy status to narcotic agent; Z88.0 Allergy status to penicillin; Z82.49 Family history of ischemic heart disease and other diseases of the circulatory system; Z95.5 Presence of coronary angioplasty implant and graft
CPT/HCPCS: 11042; 36415; 71045; 73630; 80048; 80076; 81001; 82009; 82803; 82962; 83735; 84100; 84484; 85007; 85025; 86328; 87040; 87070; 87081; 87086; 87205; 93005; 93308; 93458; 96365; 96375; 97110; 97116; 97162; 97166; 97530; 99152; 99284; C1725; C1760; C1769; J1644; J2405; Q9957; Q9967

== ENCOUNTER 2020-12-13 20:01 | Inpatient (IN) | payer MEDICARE, BC, SELFPAY ==
[2020-12-13] VITALS (7 sets, daily range): BP systolic 91–117; BP diastolic 66–80; PULSE 112–135; RESP 15–22; TEMP 36.6; O2SAT 98–99; BMI 43.2
--- NOTE | 2020-12-13 20:22 | ECG_ITS ---
APPROVED REPORT Exam: Resting ECG HR:125 bpm ECG Measurements Heart Rate [address] 144 P 56 QRSd 80 QRS 105 QT 292 T 121 QTc 421 Conclusion Sinus tachycardia Rightward axis Nonspecific T wave abnormality Abnormal ECG Electronically signed by : Apolinar Odonnell, 12/14/2020 18:46:23
--- NOTE | 2020-12-13 20:34 | HMH.EDGENADL ---
ED Disposition Clinical Impression: DKA (diabetic ketoacidoses) Qualifiers: Diabetes mellitus type: type 2 Diabetes mellitus complication detail: without coma Qualified Code(s): E11.10 - Type 2 diabetes mellitus with ketoacidosis without coma Disposition: Admitted As Inpatient Condition on Discharge: Fair Instructions: DI for Diarrhea and Traveler's Diarrhea -- Adult, DI for Diarrhea and Traveler's Diarrhea -- Child, DI for Nausea -- Adult, DI for Nausea -- Child Referrals: Diego Lynch [Primary Care Provider] - - Critical Care Critical Care Time: No Attestation: On 12/13/20, the high probability of a clinically significant, sudden or life threatening deterioration of the following system(s) required my full and direct attention, intervention and personal management. The time I documented below is in addition to time spent performing reported procedures but includes the following listed in this critical care notation. Medical Decision Making - Medical Records Medical records reviewed: Yes: I reviewed the patient's medical records. - Harsha Inquiry Pt receiving controlled substance: No Vital Signs: 12/13/20 20:03 12/13/20 20:30 12/13/20 21:00 Temperature 97.9 F Temperature Source Oral Pulse Rate [Right] 112 H 129 H 120 H Respiratory Rate 22 17 17 Blood Pressure [Right Arm] 99/66 L 113/69 111/70 Blood Pressure Mean [Right Arm] 77 83 83 Blood Pressure Source [Right Arm] Automatic Cuff Automatic Cuff Automatic Cuff Blood Pressure Position [Right Arm] Supine Supine 02 Sat by Pulse Oximetry 99 98 98 Oxygen Delivery Method Room Air Room Air Room Air 12/13/20 21:30 12/13/20 22:00 12/13/20 22:30 Temperature Temperature Source Pulse Rate [Right] 125 H 132 H 135 H Respiratory Rate 15 15 17 Blood Pressure [Right Arm] 109/69 L 91/66 L 108/79 L Blood Pressure Mean [Right Arm] 82 74 88 Blood Pressure Source [Right Arm] Automatic Cuff Automatic Cuff Automatic Cuff Blood Pressure Position [Right Arm] Supine Supine Supine 02 Sat by Pulse Oximetry 98 98 98 Oxygen Delivery Method Room Air Room Air Room Air 12/13/20 23:00 Temperature Temperature Source Pulse Rate [Right] 119 H Respiratory Rate 17 Blood Pressure [Right Arm] 117/80 Blood Pressure Mean [Right Arm] 92 Blood Pressure Source [Right Arm] Automatic Cuff Blood Pressure Position [Right Arm] Supine 02 Sat by Pulse Oximetry 98 Oxygen Delivery Method Room Air - Lab Data Lab Results 12/13/20 20:20: WBC 13.0 H, RBC 4.28, Hgb 11.5 L, Hct 35.7 L, MCV 83.4, MCH 26.8 L, MCHC 32.2, RDW 16.0, Plt Count 448 H, MPV 8.8, Neut % (Auto) 78.6, Lymph % (Auto) 17.2, [place] % (Auto) 3.3, Eos % (Auto) 0.6, Baso % (Auto) 0.4, Neut # (Auto) 10.2 H, Lymph # (Auto) 2.2, [place] # (Auto) 0.4, Eos # (Auto) 0.1, Baso # (Auto) 0.1 12/13/20 20:20: Sodium 133 L, Potassium 5.2 H, Chloride 98, Carbon Dioxide 22, Anion Gap 18.2 H, BUN 71 H, Creatinine 1.40 H, Estimated Creat Clear 44, Estimated GFR 39 L, Est GFR ( Amer) 48 L, Glucose 320 H, Calcium 10.3 H, Total Bilirubin 0.7, AST 24, ALT 19, Alkaline Phosphatase 77, Troponin I 0.02, Total Protein 8.1, Albumin 4.3, Globulin 3.8 H, Albumin/Globulin Ratio 1.1, Amylase 38 12/13/20 20:20: Lipase 143 12/13/20 23:08: Troponin I 0.03 12/13/20 23:30: Acetone Level None detected 12/13/20 23:30: SARS-CoV-2 IgG Ab (Rapid) Negative, SARS-CoV-2 IgM Ab (Rapid) Negative Result diagrams: 12/13/20 20:20 12/13/20 20:20 Orders (Tests/Meds): ED MEDICATIONS Generic Name Dose Route Start Last Admin Trade Name Freq PRN Reason Stop Dose Admin Sodium Chloride 1,000 mls @ 999 mls/hr 12/13/20 20:30 12/13/20 20:18 Sod Chlor 0.9% 1000ml Bag IV 12/13/20 21:30 999 mls/hr .Q1H1M PETE Administration Insulin Human Regular 100 unit 101 mls @ 12.278 mls/hr 12/14/20 01:00 12/14/20 01:12 / Sodium Chloride IV 01/13/21 00:59 12.278 mls/hr .Q8H14M PETE Administration Protocol 0.1 UNITS/KG/HR Lactated Ringer's 1,000 mls @ 1
[2020-12-13 20:35] LABS: Basophils # 0.1 K/mm3 (0-0.2); Basophils % 0.4 % (0.1-2.0); Eosinophils # 0.1 K/mm3 (0.0-0.4); Eosinophils % 0.6 % (0.1-12.0); Hematocrit 35.7 % (37.0-47.0); Hemoglobin 11.5 g/dL (12.2-16.2); Lymphocytes # 2.2 K/mm3 (0.7-4.5); Lymphocytes % 17.2 % (10-50); Mean Corpuscular HGB Conc 32.2 g/dL (31.8-35.4); Mean Corpuscular Hemoglobin 26.8 pg (27.0-31.2); Mean Corpuscular Volume 83.4 fl (81-99); Mean Platelet Volume 8.8 fl (7.4-10.4); Monocytes # 0.4 K/mm3 (0.1-1.0); Monocytes % 3.3 % (1.7-9.3); Neutrophils # 10.2 K/mm3 (1.8-7.8); Neutrophils % 78.6 % (37.0-80.0); Platelet Count 448 K/mm3 (142-424); Red Blood Count 4.28 M/mm3 (4.20-5.40)
[2020-12-13 20:37] LABS: Chloride 98 mmol/L (98-107); Sodium 133 mmol/L (136-145)
[2020-12-13 20:38] LABS: Potassium 5.2 mmoL/L (3.5-5.1)
[2020-12-13 20:39] LABS: Lipase 143 U/L (23-300)
--- NOTE | 2020-12-13 20:39 | XR_ITS ---
PROCEDURE: XR CHEST PORTABLE CLINICAL HISTORY: N/V w/ cardiac HX Heart disease COMPARISON: CR XR CHEST PORTABLE PICC PLAC from 10/25/2019 CR XR CHEST PORTABLE from 10/28/2019 CR XR CHEST PORTABLE from 11/18/2020 FINDINGS: The cardiomediastinal silhouette and pulmonary vascularity are within normal limits. The lungs are clear without infiltrates, suspicious nodules, or pleural effusions. There are 2 metallic anchor screws in the right. Coronary artery stent or calcification noted IMPRESSION: No acute findings. Dictated by: Hemal Pedersen MD 12/14/2020 05:45 Hemal Pedersen MD in [place] 12/14/2020 05:45
[2020-12-13 20:40] LABS: Alanine Aminotransferase 19 U/L (12-78); Amylase 38 U/L (30-110); Aspartate Amino Transferase 24 U/L (14-36); Blood Urea Nitrogen 71 mg/dl (7-17); Creatinine Clearance Estimated 44 mL/min (50-200); Estimated Glomerular Filt Rate 39 ml/min (>60); GFR (African American) 48 ML/MIN (>60)
[2020-12-13 20:41] LABS: Albumin Level 4.3 g/dl (3.5-5.0); Albumin/Globulin Ratio 1.1 (1.1-1.8); Alkaline Phosphatase 77 U/L (38-126); Anion Gap 18.2 mEq/L (5-15); Bilirubin,Total 0.7 mg/dl (0.2-1.3); Calcium 10.3 mg/dl (8.4-10.2); Carbon Dioxide 22 mmol/L (22.0-30.0); Globulin 3.8 g/dL (1.3-3.2); Glucose 320 mg/dl (74-100); Total Protein,Serum 8.1 g/dl (6.3-8.2)
[2020-12-13 20:52] LABS: Troponin I 0.02 ng/ml (0.00-0.034)
[2020-12-13 23:43] LABS: Troponin I 0.03 ng/ml (0.00-0.034)
[2020-12-14] VITALS (16 sets, daily range): BP systolic 101–173; BP diastolic 55–98; PULSE 80–150; RESP 16–27; TEMP 36.7–37.9; O2SAT 94–100; BMI 43.1; BMI 43.2
--- NOTE | 2020-12-14 | CA_ITS ---
APPROVED REPORT EXAM: Comprehensive 2D, Doppler, and color-flow Echocardiogram Residential Case Manager: Juana Abdi, RT(R) Ht: 5 ft 6 in Wt: 268lbs BSA: 2.26 BP: 129/98 mmHg Indications: hx of takotsubo CM, HTN, ex smoker, HTN, hyperlipidemia, Hx of ND, CAD, DM, EF 30% on 11/20/20 echo, ordered as a limited echo for EF check only. Patient has been wearing lifevest. Echo Enhancing Agent Indication: Endocardial border delineation Agent(s) / Amount(s) Used: Definity 2 cc Conclusion 1. Limited echo performed with Definity contrast, limited views were obtained, shows preserved left ventricular systolic function with no regional wall motion abnormality, no left ventricular thrombus seen. 2. No significant pericardial effusion noted. Electronically signed by : Abelino Mendoza, 12/14/2020 16:20:02
--- NOTE | 2020-12-14 01:05 | PC.NURSE ---
spoke with Jony from pharmacy insulin drip 4-5 units per hr
[2020-12-14 01:09] LABS: Acetone, Serum (Rapid) None Detected (None Detect)
[2020-12-14 01:42] LABS: Coronavirus 19 IgG Antibody Negative (Negative); Coronavirus 19 IgM Antibody Negative (Negative)
[2020-12-14 02:34] LABS: POC Glucose,Bedside 408 (70-110)
[2020-12-14 02:49] LABS: Troponin I 0.05 ng/ml (0.00-0.034)
[2020-12-14 03:36] LABS: Microscopic, Urine URINE MICROSCOPIC (MICROSCOPIC)
[2020-12-14 03:37] LABS: Appearance,Urine CLEAR (Clear); Bilirubin,Urine Negative (Negative); Blood, Urine Negative (Negative); Color,Urine YELLOW (Yellow); Glucose,Urine (UA) 3+ (Negative); Ketones,Urine 1+ (Negative); Leukocyte Esterase,Urine Negative (Negative); Nitrate,Urine Negative (Negative); PH,Urine 5.5 (5.0-8.5); Protein,Urine Negative (Negative); Specific Gravity, Urine 1.015 (1.005-1.030); Urobilinogen,Urine 0.2 EU/dl (0.2)
[2020-12-14 03:45] LABS: POC Glucose,Bedside 395 (70-110)
[2020-12-14 03:45] LABS: Bacteria,Urine 1+ /lpf; Mucus,Urine 1+ /lpf
--- NOTE | 2020-12-14 04:13 | PC.NURSE ---
patient up to floor via wheelchair.
--- NOTE | 2020-12-14 04:33 | PC.NURSE ---
BEDSIDE REPORT FROM Mandeep JIMENEZ RN. ER WAS ASKED ABOUT IVF BEING LR AND HE STATED HE SPOKE WITH DR. VALLADARES AND THEY WANTED LR AT 150ML/HR INSTEAD OF NS @125ml/hr.
--- NOTE | 2020-12-14 05:05 | PC.NURSE ---
pt came to floor with insulin gtt infusing at 4unitss/hr. 0500 bs was 321. insulin gtt increased to 6units/hr per protocol
[2020-12-14 05:11] LABS: POC Glucose,Bedside 321 (70-110)
--- NOTE | 2020-12-14 06:09 | PC.NURSE ---
insulin gtt increased to 9 units/hr for a BS of 271.
[2020-12-14 06:14] LABS: POC Glucose,Bedside 271 (70-110)
[2020-12-14 06:25] LABS: Anion Gap 15.7 mEq/L (5-15); Calcium 9.8 mg/dl (8.4-10.2); Carbon Dioxide 20 mmol/L (22.0-30.0); Chloride 99 mmol/L (98-107); Creatinine Clearance Estimated 47 mL/min (50-200); Estimated Glomerular Filt Rate 43 ml/min (>60); GFR (African American) 52 ML/MIN (>60); Glucose 297 mg/dl (74-100); Potassium 4.7 mmoL/L (3.5-5.1); Sodium 130 mmol/L (136-145)
[2020-12-14 06:27] LABS: Blood Urea Nitrogen 84 mg/dl (7-17)
[2020-12-14 07:43] LABS: POC Glucose,Bedside 231 (70-110)
--- NOTE | 2020-12-14 08:26 | HMH.PHAVTE ---
[facility] Pharmacy VTE Monitoring - Patient Demographics Admission date: 12/14/20 Report Date: 12/14/20 Time: 08:26 Allergies/Adverse Reactions: Patient Allergies amoxicillin [AMOXICILLIN] Allergy (Unknown, Verified 12/11/20 13:41) Unknown allergy reaction codeine [CODEINE] Adverse Reaction (Mild, Verified 12/11/20 13:41) STOMACH CRAMPS morphine [MORPHINE] Adverse Reaction (Mild, Verified 12/11/20 13:41) STOMACH CRAMPS oxycodone [From Percocet] Adverse Reaction (Mild, Verified 12/11/20 13:41) STOMACH CRAMPS Height: 1.68 m Weight: 121.818 kg Patient Problems: Current Active Problems DKA (diabetic ketoacidoses) (Acute) - VTE Risk Labs: VTE Related Lab Results Hgb 11.5 g/dL (12.2-16.2) L 12/13/20 20:20 Hct 35.7 % (37.0-47.0) L 12/13/20 20:20 Plt Count 448 K/mm3 (142-424) H 12/13/20 20:20 BUN 84 mg/dl (7-17) H 12/14/20 05:50 Creatinine 1.30 mg/dl (0.52-1.04) H 12/14/20 05:50 Estimated Creat Clear 47 mL/min (50-200) 12/14/20 05:50 Was VTE Risk Assessment Performed: Yes VTE Score: 4 VTE Risk Level: Low Risk Clinical Trial Participant: No - Prophylaxis VTE Prophylaxis Ordered?: Yes Types of VTE Prophylaxis: TEDS Knee High
[2020-12-14 09:37] LABS: POC Glucose,Bedside 186 (70-110)
[2020-12-14 09:37] LABS: POC Glucose,Bedside 176 (70-110)
--- NOTE | 2020-12-14 09:51 | PC.NURSE ---
Notified Tami in Cardiology face to face of Pt's HR sustaining in the 160's.
--- NOTE | 2020-12-14 10:40 | HMH.CNCARD ---
History of Present Illness Consult date: 12/14/20 Requesting physician: El Odom Chief complaint: Nausea and Vomiting Additional 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:: 1. Diabetic ketoacidosis (12/14/20) 2. Takotsubo cardiomyopathy (11/2020) a. EF 30% b. Wearing Life vest. 3. Hyperlipidemia a. On pravastatin 5. Essential hypertension History of present illness: 50-year-old female was admitted [facility] due to diabetic ketoacidosis. Patient is a known diabetic. Blood sugar was running in the 300s. She stated she had been having some nausea and vomiting throughout the day. Patient states she probably had vomited at least 5-6 times. Patient is had no vomitings since being admitted to facility. Patient denies chest pain, pressure or tightness. Patient does have shortness of breath but states it is no worse than usual. She does have Takotsubo cardiomyopathy. She was diagnosed with this in the early portions of December 06. The patient was diagnosed she had an MN. Echocardiogram at that time revealed 30% EF. Patient is currently wearing a LifeVest. Patient did have a follow-up with cardiology. 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 Manzano in [place] for her remaining follow-ups. Cardiology was consulted on this visit due to patient's heart rate noted to be in the 120s 130s. Patient states she has not had her beta-armin for over 24 hours. We will need to restart her beta-armin antihypertension medication. Patient also complaining of black stools. This may be from Effient due to recent stenting. We will stop Effient the patient will need to continue on her baby aspirin. LHC: Patent LAD and right coronary artery as described above Occluded third obtuse marginal artery which appears to be chronically occluded Anterior apical ballooning consistent with Takotsubo cardiomyopathy, also known as broken heart syndrome or stress cardiomyopathy Elevated LVEDP Recent MN with Takotsubo cardiomyopathy-EF 30% NOV 2020-LifeVest in place. Discussed plan of care with Dr. Beatty. Will restart metoprolol 50 mg twice daily for BP and heart rate control. Will restart ramipril 5 mg p.o. for BP control. Will stop Effient due to black stools. If patient continues to have the black stools patient may need a GI consult. We will repeat echocardiogram to assess LV function and valve status. Please notify cardiology of any changes in patient's condition. Thank you for letting cardiology participate in the care of this patient. [facility] History I have reviewed the patient's past medical history: Yes 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: Reports:: Anxiety, Arrhythmia, Coronary Artery Disease, Diabetes Mellitus Type 2, Hyperlipidemia, Hypertension, Myocardial Infarction Denies:: Asthma, Cancer, Chronic Obstructive Pulmonary Disease (COPD), Diabetes Mellitus Type 1, Internal Pacemaker, MRSA, Seizures *Have you ever received a pneumonia vaccine?: No *Have you received a flu vaccine this season?: Yes Other 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: Reports: Arthritis, Fibromyalgia, Other. Denies: Blood Transfusion Reaction Laterality Cases: Bilateral: Arthroscopy Knee, Arthroscopy Shoulder, Other Other Surgeries: Yes: No Previous Surgery, Appendectomy, Cardiac Catheterization (03/26/2020), Cholecystectomy, Colonoscopy, Coronary Stent, Hysterectomy-Total, Other. No: Pacemaker Amputation: No Fractures: No - *Social History Smoking Status: Former smoker # Packs/Day (cigarettes): 0 #Yrs smoked (if former smoker): 25 Alcohol Intake: never Alcohol Intake Frequency:: other Substance Use Type: denies use *Occupational Status:: disabled Housing: house Household Members: family *Travel in the last 8 weeks: None - Psychiatric History Pschychiatric History:: Reports:: Anxiety Family Hx:: Cancer, Hyperlipidemia, Hypertension, Stroke Meds Home Medications Medication Instructions Recorded Confirmed Type Hydrocodone/Acetaminophen 1 each PO Q6H 0
[2020-12-14 10:53] LABS: POC Glucose,Bedside 207 (70-110)
--- NOTE | 2020-12-14 11:46 | HMH.PHAINT ---
HOME MEDICATION LIST COMPLETED USING LIST FROM PREVIOUS VISIT
[2020-12-14 12:07] LABS: POC Glucose,Bedside 207 (70-110)
[2020-12-14 13:01] LABS: Basophils % 0.3 % (0.1-2.0); Eosinophils # 0.2 K/mm3 (0.0-0.4); Eosinophils % 1.2 % (0.1-12.0); Hematocrit 29.2 % (37.0-47.0); Lymphocytes # 2.4 K/mm3 (0.7-4.5); Lymphocytes % 14.4 % (10-50); Mean Corpuscular HGB Conc 32.6 g/dL (31.8-35.4); Mean Corpuscular Hemoglobin 26.6 pg (27.0-31.2); Mean Corpuscular Volume 81.7 fl (81-99); Mean Platelet Volume 8.6 fl (7.4-10.4); Monocytes # 0.9 K/mm3 (0.1-1.0); Monocytes % 5.1 % (1.7-9.3); Neutrophils # 13.4 K/mm3 (1.8-7.8); Platelet Count 388 K/mm3 (142-424); Red Blood Count 3.58 M/mm3 (4.20-5.40); Red Cell Distribution Width 16.5 % (11.5-17.5); White Blood Count 16.9 K/mm3 (4.8-10.8)
[2020-12-14 13:02] LABS: Hemoglobin 9.5 g/dL (12.2-16.2); MANUAL DIFFERENTIAL MANUAL DIFFERENTIAL (MANUAL DIFF)
--- NOTE | 2020-12-14 13:03 | PC.NURSE ---
lab called and stated pt's covid swab was positive. notified Jazmine Mondragon in the office. pt is now in isolation and pharmacy was contacted to start the covid protocol. infection control nurse Yen Calvert notified.
[2020-12-14 13:21] LABS: Occult Blood,Stool Positive (Negative)
[2020-12-14 13:22] LABS: Chloride 103 mmol/L (98-107); Potassium 4.1 mmoL/L (3.5-5.1); Sodium 131 mmol/L (136-145)
[2020-12-14 13:25] LABS: Creatinine Clearance Estimated 47 mL/min (50-200); Estimated Glomerular Filt Rate 43 ml/min (>60); GFR (African American) 52 ML/MIN (>60)
[2020-12-14 13:26] LABS: Anion Gap 15.1 mEq/L (5-15); Calcium 9.6 mg/dl (8.4-10.2); Carbon Dioxide 17 mmol/L (22.0-30.0); Glucose 209 mg/dl (74-100)
--- NOTE | 2020-12-14 13:26 | HMH.HP ---
*Admission Date: 12/14/20 *Chief complaint: d/v/n *History of present illness: 50-year-old female presented to ED with c/o vomiting and diarrhea that started today. Pt was in [facility] 11/18/20 for a recent ME now wearing LifeVest with EF of 30%, and type 2 diabetes. Patient states earlier today she began having episodes of nonbloody, nonbilious emesis, diarrhea, nausea and abd cramps. She had 2 or 3 episodes. No fever/chills. She states she thinks she been taking her insulin as prescribed. No chest pain, shortness of breath, infectious symptoms. Pt admitted for hyperglycemia and replace of fluids. covid test done igg,igm neg and positive nasal swab. [facility] History I have reviewed the patient's past medical history: Yes 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: Reports:: Anxiety, Arrhythmia, Coronary Artery Disease, Diabetes Mellitus Type 2, Hyperlipidemia, Hypertension, Myocardial Infarction Denies:: Asthma, Cancer, Chronic Obstructive Pulmonary Disease (COPD), Diabetes Mellitus Type 1, Internal Pacemaker, MRSA, Seizures *Have you ever received a pneumonia vaccine?: No *Have you received a flu vaccine this season?: Yes Other 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: Reports: Arthritis, Fibromyalgia, Other. Denies: Blood Transfusion Reaction Laterality Cases: Bilateral: Arthroscopy Knee, Arthroscopy Shoulder, Other Other Surgeries: Yes: No Previous Surgery, Appendectomy, Cardiac Catheterization (03/26/2020), Cholecystectomy, Colonoscopy, Coronary Stent, Hysterectomy-Total, Other. No: Pacemaker Amputation: No Fractures: No - *Social History Smoking Status: Former smoker # Packs/Day (cigarettes): 0 #Yrs smoked (if former smoker): 25 Alcohol Intake: never Alcohol Intake Frequency:: other Substance Use Type: denies use *Occupational Status:: disabled Housing: house Household Members: family *Travel in the last 8 weeks: None - Psychiatric History Pschychiatric History:: Reports:: Anxiety Family Hx:: Cancer, Hyperlipidemia, Hypertension, Stroke Review of Systems - Review of Systems Review of systems:: pertinent systems reviewed and negative unless documented below - Constitutional Reports malaise, Denies chills - Eyes Denies change in vision - ENT Denies change in voice - *Cardiovascular Denies chest pain with activity - *Respiratory Denies chest congestion - *Gastrointestinal Reports abdominal pain, Reports bloating, Reports nausea, Reports vomiting - *Genitourinary Denies urinary urgency - *Musculoskeletal Denies loss of height - Integumentary/Breasts Denies rash - *Neurologic Denies dizziness - Psychiatric Denies lack of enjoyment - Endocrine Denies excessive sweating - Hematologic/Lymphatic Denies enlarged lymph nodes - Allergic/Immunologic Denies lip swelling Meds Home Medications Medication Instructions Recorded Confirmed Type Hydrocodone/Acetaminophen 1 each PO Q6H 02/03/19 12/14/20 History [Hydrocodone-Acetamin 10-325 mg] Aspirin 81 mg PO DAILY 04/08/19 12/14/20 History ezetimibe 10 mg tablet 10 mg PO DAILY tab 03/06/20 12/14/20 History furosemide 40 mg tablet 40 mg PO DAILY tab 03/20/20 12/14/20 History duloxetine 60 mg capsule,delayed 60 mg PO BID 07/02/20 12/14/20 History release liraglutide 0.6 mg/0.1 mL (18 mg/3 1.8 mg SQ DAILY 30 Days #9 ml 09/17/20 12/14/20 History mL) subcutaneous pen injector dapagliflozin 10 mg tablet 10 mg PO DAILY tab 11/01/20 12/14/20 History insulin glargine 100 unit/mL (3 70 unit SQ HS ml 11/01/20 12/14/20 History mL) subcutaneous pen Trazodone HCl [Desyrel 50mg tablet] 50 - 100 mg PO HS 11/18/20 12/14/20 History Tramadol HCl [Ultram 50mg 50 mg PO Q6HP PRN tab 11/23/20 12/14/20 Rx tablet] Isosorbide Mononitrate [Imdur 60mg 60 mg PO DAILY 12/14/20 12/14/20 History ER tablet] Metoprolol Tartrate [Lopressor 50 mg PO BID 12/14/20 12/14/20 History 25mg tablet] Nystatin [Nystatin Topical Powder 0 gm TP QID 12/14/20 12/14/20 History 30GM*] Prasugrel HCl [Effient 10mg
[2020-12-14 13:27] LABS: Blood Urea Nitrogen 77 mg/dl (7-17)
[2020-12-14 13:32] LABS: Lymphocytes % 22 % (10-50); Monocytes % 5 % (2-9); Neutrophils % 73 % (42-76); Platelet Estimate Normal; RBC Morphology Normal; Total Cells Counted 100
[2020-12-14 13:55] LABS: POC Glucose,Bedside 190 (70-110)
--- NOTE | 2020-12-14 14:08 | PC.NURSE ---
Nancy Stoner called with SANA'lester to give 50mg metoprolol now, and she will change the dose to 100mg for tonight. Notified Barbara Cohen, primary nurse of [facility].
[2020-12-14 16:15] LABS: POC Glucose,Bedside 194 (70-110)
--- NOTE | 2020-12-14 17:57 | PC.NURSE ---
PT IS RESTING IN BED. NO COMPLAINTS OF DISCOMFORT. THIS MORNING PT'S WAS SUSTAINING A HR OF 130-150. CARDIOLOGY CONSULTED. STARTED PT'S METOPROLOL AND INCREASED DOSE TO 100 MG BID. PT'S HR IS NOW 85-95. PT HAS HAD 3 LOOSE DARK TARRY STOOLS THIS SHIFT. STOOL WAS SENT TO LAB AND WAS POSITIVE FOR OCCULT BLOOD. INSULIN DRIP WAS DC'D THIS AFTERNOON PT WAS TRANSFERRED OUT OF STEP DOWN. PT WILL HAVE A REPEAT CBC/BMP AT 1800. IVF'S HAVE BEEN DECREASED TO 75 ML'S/HR. LUNG SOUNDS DIMINISHED. BOWEL SOUNDS NORMAL. REDNESS NOTED TO ABDOMINAL FOLD. PT IS TOLERATING FULL LIQUIDS. O2 SATURATION 96-100% ON RA. WILL CONTINUE TO MONITOR.
[2020-12-14 18:34] LABS: Basophils # 0.1 K/mm3 (0-0.2); Basophils % 0.4 % (0.1-2.0); Eosinophils # 0.1 K/mm3 (0.0-0.4); Eosinophils % 0.5 % (0.1-12.0); Hematocrit 28.8 % (37.0-47.0); Hemoglobin 9.3 g/dL (12.2-16.2); Lymphocytes # 3.8 K/mm3 (0.7-4.5); Lymphocytes % 19.2 % (10-50); Mean Corpuscular HGB Conc 32.4 g/dL (31.8-35.4); Mean Corpuscular Hemoglobin 27.1 pg (27.0-31.2); Mean Corpuscular Volume 83.4 fl (81-99); Mean Platelet Volume 8.8 fl (7.4-10.4); Monocytes # 0.8 K/mm3 (0.1-1.0); Monocytes % 4.2 % (1.7-9.3); Neutrophils # 14.9 K/mm3 (1.8-7.8); Neutrophils % 75.7 % (37.0-80.0); Platelet Count 408 K/mm3 (142-424); Red Blood Count 3.45 M/mm3 (4.20-5.40); Red Cell Distribution Width 16.7 % (11.5-17.5); White Blood Count 19.7 K/mm3 (4.8-10.8)
[2020-12-14 18:51] LABS: Anion Gap 16.3 mEq/L (5-15); Blood Urea Nitrogen 64 mg/dl (7-17); Calcium 9.4 mg/dl (8.4-10.2); Carbon Dioxide 21 mmol/L (22.0-30.0); Chloride 101 mmol/L (98-107); Creatinine Clearance Estimated 47 mL/min (50-200); Estimated Glomerular Filt Rate 43 ml/min (>60); GFR (African American) 52 ML/MIN (>60); Glucose 243 mg/dl (74-100); Potassium 4.3 mmoL/L (3.5-5.1); Sodium 134 mmol/L (136-145)
[2020-12-14 22:14] LABS: POC Glucose,Bedside 252 (70-110)
[2020-12-15] VITALS (7 sets, daily range): BP systolic 101–130; BP diastolic 51–72; PULSE 64–110; RESP 16–19; TEMP 36.6–36.9; O2SAT 94–100; BMI 42.4
[2020-12-15 00:36] LABS: Chloride 108 mmol/L (98-107); Potassium 4.5 mmoL/L (3.5-5.1); Sodium 135 mmol/L (136-145)
[2020-12-15 00:39] LABS: Anion Gap 8.5 mEq/L (5-15); Blood Urea Nitrogen 56 mg/dl (7-17); Calcium 8.7 mg/dl (8.4-10.2); Carbon Dioxide 23 mmol/L (22.0-30.0); Creatinine Clearance Estimated 56 mL/min (50-200); Estimated Glomerular Filt Rate 52 ml/min (>60); GFR (African American) 63 ML/MIN (>60)
[2020-12-15 00:46] LABS: Glucose 176 mg/dl (74-100)
--- NOTE | 2020-12-15 02:21 | PC.NURSE ---
A&OX4. PT HAS TOLERATED RA WELL THROUGHOUT SHIFT. RESPIRATIONS REGULAR AND UNLABORED. LUNG SOUNDS BILATERALLY CLEAR. NO COUGH NOTED. ACTIVE BOWEL SOUNDS HEARD IN ALL 4 QUADRANTS. SOFT AND NONTENDER ABDOMEN. PT HAS HAD EPISODES OF DIARRHEA. PT VOIDS PER TOILET W STANDBY ASSIST. YELLOW URINE NOTED. HAND CERTIFIED NURSES AIDE EQUAL. +2 PULSES NOTED THROUGHOUT. NO EDEMA NOTED. NO REPORTS OF PAIN, SOB, OR NAUSEA THUS FAR. PT HAS REMAINED AFEBRILE THUS FAR. PT HAS REMAINED ON TELE THROUGHOUT SHIFT. NSR NOTED. LR INFUSING AT 75ML/HR. PT HAS REMAINED IN CONTACT AND [employer] THROUGHOUT SHIFT. BED IN LOWEST POSITION. CALL LIGHT WITHIN REACH. VSS. WILL CONTINUE TO MONITOR.
[2020-12-15 05:10] LABS: Chloride 110 mmol/L (98-107); Sodium 137 mmol/L (136-145)
[2020-12-15 05:11] LABS: Potassium 4.4 mmoL/L (3.5-5.1)
[2020-12-15 05:13] LABS: Alanine Aminotransferase 11 U/L (12-78); Alkaline Phosphatase 62 U/L (38-126); Aspartate Amino Transferase 21 U/L (14-36); Bilirubin,Total 0.2 mg/dl (0.2-1.3); Blood Urea Nitrogen 48 mg/dl (7-17); Creatinine Clearance Estimated 56 mL/min (50-200); Estimated Glomerular Filt Rate 52 ml/min (>60); GFR (African American) 63 ML/MIN (>60)
[2020-12-15 05:14] LABS: Albumin Level 3.2 g/dl (3.5-5.0); Anion Gap 8.4 mEq/L (5-15); Calcium 8.7 mg/dl (8.4-10.2); Carbon Dioxide 23 mmol/L (22.0-30.0); Globulin 3.1 g/dL (1.3-3.2); Total Protein,Serum 6.3 g/dl (6.3-8.2)
[2020-12-15 05:18] LABS: Glucose 118 mg/dl (74-100)
[2020-12-15 06:40] LABS: POC Glucose,Bedside 128 (70-110)
--- NOTE | 2020-12-15 10:06 | HMH.ACPN2 ---
Internal Medicine - PN: Subj *Date: 12/16/20 *Time: 07:54 Interval history: doing better this am with better po intake -no fever reported Exam Vital signs and Labs for Last 24 Hours: Temp Pulse Resp BP Pulse Ox 98.0 F 92 H 16 101/61 L 100 12/15/20 08:00 12/15/20 08:00 12/15/20 08:00 12/15/20 08:00 12/15/20 08:00 Laboratory Results - last 24 hr 12/14/20 09:50: Stool Occult Blood Positive A 12/14/20 10:47: POC Glucose 207 H 12/14/20 12:00: POC Glucose 207 H 12/14/20 12:45: Sodium 131 L, Potassium 4.1, Chloride 103, Carbon Dioxide 17 L, Anion Gap 15.1 H, BUN 77 H, Creatinine 1.30 H, Estimated Creat Clear 47, Estimated GFR 43 L, Est GFR ( Amer) 52 L, Glucose 209 H D, Calcium 9.6 12/14/20 12:45: WBC 16.9 H D, RBC 3.58 L, Hgb 9.5 L D, Hct 29.2 L, MCV 81.7, MCH 26.6 L, MCHC 32.6, RDW 16.5, Plt Count 388, MPV 8.6, Neut % (Auto) 79.0, Lymph % (Auto) 14.4, [place] % (Auto) 5.1, Eos % (Auto) 1.2, Baso % (Auto) 0.3, Neut # (Auto) 13.4 H, Lymph # (Auto) 2.4, [place] # (Auto) 0.9, Eos # (Auto) 0.2, Baso # (Auto) 0.0, Total Counted 100, Neutrophils % (Manual) 73, Lymphocytes % (Manual) 22, Monocytes % (Manual) 5, Platelet Estimate Normal, RBC Morphology Normal 12/14/20 13:49: POC Glucose 190 H 12/14/20 16:08: POC Glucose 194 H 12/14/20 18:20: Sodium 134 L, Potassium 4.3, Chloride 101, Carbon Dioxide 21 L D, Anion Gap 16.3 H, BUN 64 H, Creatinine 1.30 H, Estimated Creat Clear 47, Estimated GFR 43 L, Est GFR ( Amer) 52 L, Glucose 243 H, Calcium 9.4 12/14/20 18:20: WBC 19.7 H, RBC 3.45 L, Hgb 9.3 L, Hct 28.8 L, MCV 83.4, MCH 27.1, MCHC 32.4, RDW 16.7, Plt Count 408, MPV 8.8, Neut % (Auto) 75.7, Lymph % (Auto) 19.2, [place] % (Auto) 4.2, Eos % (Auto) 0.5, Baso % (Auto) 0.4, Neut # (Auto) 14.9 H, Lymph # (Auto) 3.8, [place] # (Auto) 0.8, Eos # (Auto) 0.1, Baso # (Auto) 0.1 12/14/20 21:16: POC Glucose 252 H 12/15/20 00:23: Sodium 135 L, Potassium 4.5, Chloride 108 H, Carbon Dioxide 23, Anion Gap 8.5, BUN 56 H, Creatinine 1.10 H, Estimated Creat Clear 56, Estimated GFR 52 L, Est GFR ( Amer) 63 D, Glucose 176 H D, Calcium 8.7 12/15/20 04:54: Sodium 137, Potassium 4.4, Chloride 110 H, Carbon Dioxide 23, Anion Gap 8.4, BUN 48 H, Creatinine 1.10 H, Estimated Creat Clear 56, Estimated GFR 52 L, Est GFR ( Amer) 63, Glucose 118 H D, Calcium 8.7, Total Bilirubin 0.2, AST 21, ALT 11 L D, Alkaline Phosphatase 62, Total Protein 6.3, Albumin 3.2 L D, Globulin 3.1, Albumin/Globulin Ratio 1.0 L 12/15/20 06:32: POC Glucose 128 H I & O for Last 24 hours: Intake & Output 12/12/20 12/13/20 12/14/20 12/15/20 11:59 11:59 11:59 11:59 Intake Total 1999 1623 / 1623 Output Total 360 / 360 Balance 1999 1263 / 1263 Weight 268 lb 9 oz 264 lb Microbiology Reports for the Last 24 Hours: Microbiology 12/14/20 09:34 Nasopharyngeal Coronavirus COVID-19 PCR - Final - Constitutional no acute distress - *Routine HEENT Exam Head: Present: normocephalic Eye: Present: EOMI, PERRL ENT: Present: mucous membranes dry - *Routine Neck Exam Present: supple - *Routine Respiratory Exam Absent: respiratory distress - *Routine Cardiovascular Exam Present: RRR - *Routine Abdominal Exam Present: soft - *Routine Extremities Exam Present: full ROM - *Routine Skin Exam Present: intact - *Routine Neurological Exam Present: alert, oriented X3, CN II-XII intact - Routine Psychiatric Exam Present: normal affect Assessment and Plan (1) Sinus tachycardia Status: Acute Category: Medical Code(s): R00.0 - Tachycardia, unspecified (2) Takotsubo cardiomyopathy Status: Acute Category: Medical Code(s): I51.81 - Takotsubo syndrome (3) COVID-19 Status: Acute Category: Medical Code(s): U07.1 - COVID-19 (4) HTN (hypertension) Status: Acute Category: Medical Code(s): I10 - Essential (primary) hypertension (5) History of myocardial infarction Status: Acute Category: Medical Code(s): I2
[2020-12-15 13:01] LABS: POC Glucose,Bedside 295 (70-110)
[2020-12-15 16:24] LABS: POC Glucose,Bedside 221 (70-110)
--- NOTE | 2020-12-15 19:59 | PC.NURSE ---
PATIENT IS A&O X4, LUNGS ARE CLEAR, PULSES EQUAL. PATIENT HAD ONE BOWEL MOVEMENT. SEVERAL SOFT FORMED BLACK STOOL NOTED, FOUL SMELLING. PATIENT AMBULATED TO BEDSIDE COMMODE, TOLERATED WELL. PATIENT SWITCHED TO SOLID FOODS, TOLERATED 3 MEALS WELL.
[2020-12-15 21:48] LABS: POC Glucose,Bedside 262 (70-110)
[2020-12-16] VITALS (18 sets, daily range): BP systolic 96–137; BP diastolic 53–75; PULSE 60–100; RESP 13–26; TEMP 36.3–37.1; O2SAT 91–100; BMI 42.6
[2020-12-16 06:14] LABS: POC Glucose,Bedside 257 (70-110)
[2020-12-16 06:21] LABS: Chloride 106 mmol/L (98-107); Potassium 4.3 mmoL/L (3.5-5.1); Sodium 136 mmol/L (136-145)
[2020-12-16 06:23] LABS: Blood Urea Nitrogen 28 mg/dl (7-17); Creatinine Clearance Estimated 62 mL/min (50-200); Estimated Glomerular Filt Rate 58 ml/min (>60); GFR (African American) 70 ML/MIN (>60)
[2020-12-16 06:24] LABS: Alanine Aminotransferase 12 U/L (12-78); Albumin Level 3.1 g/dl (3.5-5.0); Alkaline Phosphatase 67 U/L (38-126); Anion Gap 9.3 mEq/L (5-15); Aspartate Amino Transferase 19 U/L (14-36); Calcium 8.9 mg/dl (8.4-10.2); Carbon Dioxide 25 mmol/L (22.0-30.0); Glucose 230 mg/dl (74-100); Total Protein,Serum 6.1 g/dl (6.3-8.2)
[2020-12-16 07:03] LABS: Bilirubin,Total 0.1 mg/dl (0.2-1.3)
--- NOTE | 2020-12-16 07:33 | PC.NURSE ---
pt has been up through the night. telemetry reads nsr with inverted t waves and the occasional pvc. iv patent and infusing per order. one complaint of pain through the night prn med given with relief. shower given. vss. call light in reach. will continue to monitor.
--- NOTE | 2020-12-16 10:58 | HMH.DCSUM ---
General - General Admission date:: 12/14/20 Discharge date: 12/16/20 HPI HPI: 50-year-old female presented to ED with c/o vomiting and diarrhea that started today. Pt was in [facility] 11/18/[address] now wearing LifeVest with EF of 30%, and type 2 diabetes. Patient states earlier today she began having episodes of nonbloody, nonbilious emesis, diarrhea, nausea and abd cramps. She had 2 or 3 episodes. No fever/chills. She states she thinks she been taking her insulin as prescribed. No chest pain, shortness of breath, infectious symptoms. Pt admitted for hyperglycemia and replace of fluids. covid test done igg,igm neg and positive nasal swab. Hospital Course Hospital Course: pt was admitted with ivf and insulin drip and responded well and was weaned off and tolerating diet with labs stable - she was noted to be covid-19 positive on testing - she has been tolerating activity and required no o2 - discussed quarantine and safety measures with pt and she will follow up with dr khan - she had acute kidney injury which responded to ivf and much improved - she was seen by card -1-year-old female was admitted [facility] due to diabetic ketoacidosis. Patient is a known diabetic. Blood sugar was running in the 300s. She stated she had been having some nausea and vomiting throughout the day. Patient states she probably had vomited at least 5-6 times. Patient is had no vomitings since being admitted to facility. Patient denies chest pain, pressure or tightness. Patient does have shortness of breath but states it is no worse than usual. She does have Takotsubo cardiomyopathy. She was diagnosed with this in the early portions of December 06. The patient was diagnosed she had an CT. Echocardiogram at that time revealed 30% EF. Patient is currently wearing a LifeVest. Patient did have a follow-up with cardiology. 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 Cardiology was consulted on this visit due to patient's heart rate noted to be in the 120s 130s. Patient states she has not had her beta-armin for over 24 hours. We will need to restart her beta-armin antihypertension medication. Patient also complaining of black stools. This may be from Effient due to recent stenting. We will stop Effient the patient will need to continue on her baby aspirin. Recent CT with Takotsubo cardiomyopathy-EF 30% NOV 2020-LifeVest in place. Discussed plan of care with Dr. Beatty. Will restart metoprolol 50 mg twice daily for BP and heart rate control. Will restart ramipril 5 mg p.o. for BP control. Will stop Effient due to black stools. If patient continues to have the black stools patient may need a GI consult. We will repeat echocardiogram to assess LV function and valve status. Please notify cardiology of any changes in patient's condition. will need to monitor cbc as op and consider eval as needed and will hold effient at this time Objective Vital signs: Temp Pulse Resp BP Pulse Ox 98.7 F 83 26 H 128/74 98 12/16/20 08:00 12/16/20 08:00 12/16/20 08:00 12/16/20 08:00 12/16/20 08:00 no acute distress, obese - *Routine HEENT Exam Eye: Present: EOMI, PERRL ENT: Present: mucous membranes moist - *Routine Neck Exam Present: supple. Absent: JVD - *Routine Respiratory Exam Present: decreased breath sounds - *Routine Cardiovascular Exam Present: RRR, murmur - *Routine Abdominal Exam Present: soft - *Routine Extremities Exam Present: full ROM. Absent: calf tenderness - *Routine Skin Exam Present: intact - *Routine Neurological Exam Present: alert, oriented X3, CN II-XII intact - Routine Psychiatric Exam Present: normal affect Results Labs on day of discharge: Labs from last 24 hours 12/16/20 12/16/20 12/15/20 06:00 05:52 21:29 Sodium 136 Potassium 4.3 Chloride 106 Carbon Dioxide 25
[2020-12-16 11:33] LABS: Basophils % 0.4 % (0.1-2.0); Eosinophils # 0.6 K/mm3 (0.0-0.4); Eosinophils % 5.7 % (0.1-12.0); Lymphocytes # 3.1 K/mm3 (0.7-4.5); Lymphocytes % 31.8 % (10-50); Mean Corpuscular HGB Conc 31.8 g/dL (31.8-35.4); Mean Corpuscular Hemoglobin 26.9 pg (27.0-31.2); Mean Corpuscular Volume 84.6 fl (81-99); Monocytes # 0.6 K/mm3 (0.1-1.0); Monocytes % 5.7 % (1.7-9.3); Neutrophils # 5.4 K/mm3 (1.8-7.8); Neutrophils % 56.4 % (37.0-80.0); Platelet Count 249 K/mm3 (142-424); Red Blood Count 2.82 M/mm3 (4.20-5.40); Red Cell Distribution Width 17.1 % (11.5-17.5); White Blood Count 9.6 K/mm3 (4.8-10.8)
[2020-12-16 11:37] LABS: Hematocrit 23.9 % (37.0-47.0); Hemoglobin 7.6 g/dL (12.2-16.2)
[2020-12-16 12:26] LABS: POC Glucose,Bedside 317 (70-110)
--- NOTE | 2020-12-16 13:17 | PC.NURSE ---
PT GIVEN SPUTUM CUP AND INSTRCUTED TO COUGH ANY SAMPLE INTO IT IF POSSIBLE. CUP LEFT AT BEDSIDE.
[2020-12-16 17:29] LABS: POC Glucose,Bedside 331 (70-110)
--- NOTE | 2020-12-16 20:19 | PC.NURSE ---
PATIENT HAD D/C ORDER FOR AFTER H&H COMPLETION. H&H WAS CRITICAL AT HGB 7.6 AND HCT 23.9. THIS RN PAGED DR. VASQUEZ TO REPORT FINDINGS. STATED THAT IT IS FOR THE PATIENT'S BEST INTEREST TO STAY AND HAVE 2UNITS PRBC ADMINISTERED OR PATIENT CAN CAN COME BACK AN OUTPATIENT. PATIENT AGREED TO STAY FOR BLOOD ADMINISTRATION. PATIENT WILL BE STAYING OVERNIGHT DUE TO COMPLETION OF BLOOD WILL BE LATE. DR. ECHEVARRIA IS AWARE.
[2020-12-16 22:15] LABS: POC Glucose,Bedside 364 (70-110)
[2020-12-17] VITALS (15 sets, daily range): BP systolic 102–135; BP diastolic 55–94; PULSE 60–96; RESP 16–22; TEMP 36.7–37.1; O2SAT 94–100; BMI 42.6
--- NOTE | 2020-12-17 04:34 | PC.NURSE ---
pt received last unit of blood this shift. no adverse reactions noted. pt states I do feel better. color has improved. no acute changes. independent with ambulation. alert and oriented. call light in reach. vss, will continue to monitor
[2020-12-17 05:49] LABS: POC Glucose,Bedside 254 (70-110)
[2020-12-17 05:54] LABS: Hematocrit 30.7 % (37.0-47.0)
[2020-12-17 05:55] LABS: Hemoglobin 9.8 g/dL (12.2-16.2)
[2020-12-17 06:00] LABS: Chloride 106 mmol/L (98-107)
[2020-12-17 06:01] LABS: Potassium 4.4 mmoL/L (3.5-5.1); Sodium 135 mmol/L (136-145)
[2020-12-17 06:03] LABS: Alanine Aminotransferase 12 U/L (12-78); Alkaline Phosphatase 72 U/L (38-126); Anion Gap 8.4 mEq/L (5-15); Aspartate Amino Transferase 20 U/L (14-36); Blood Urea Nitrogen 21 mg/dl (7-17); Carbon Dioxide 25 mmol/L (22.0-30.0); Creatinine Clearance Estimated 68 mL/min (50-200); Estimated Glomerular Filt Rate 66 ml/min (>60); GFR (African American) 80 ML/MIN (>60)
[2020-12-17 06:04] LABS: Albumin Level 3.2 g/dl (3.5-5.0); Calcium 8.9 mg/dl (8.4-10.2); Globulin 3.2 g/dL (1.3-3.2); Glucose 242 mg/dl (74-100); Total Protein,Serum 6.4 g/dl (6.3-8.2)
--- NOTE | 2020-12-17 09:51 | HMH.ACPN2 ---
Internal Medicine - PN: Subj *Date: 12/17/20 *Time: 09:51 Interval history: pt states she feels much better today after receiving the blood pt states she did not finish getting blood till up into the morning due to iv blew and they were having issues obtaining a new iv. pt questioning if she needs to keep life vest on- deferr to cardiology Exam Vital signs and Labs for Last 24 Hours: Temp Pulse Resp BP Pulse Ox 98.7 F 66 16 133/79 98 12/17/20 05:21 12/17/20 05:21 12/17/20 05:21 12/17/20 05:21 12/17/20 05:21 Laboratory Results - last 24 hr 12/16/20 11:25: WBC 9.6 D, RBC 2.82 L, Hgb 7.6 L*, Hct 23.9 L*, MCV 84.6, MCH 26.9 L, MCHC 31.8, RDW 17.1, Plt Count 249 D, MPV 10.0, Neut % (Auto) 56.4, Lymph % (Auto) 31.8, [place] % (Auto) 5.7, Eos % (Auto) 5.7, Baso % (Auto) 0.4, Neut # (Auto) 5.4, Lymph # (Auto) 3.1, [place] # (Auto) 0.6, Eos # (Auto) 0.6 H, Baso # (Auto) 0.0 12/16/20 11:25: Blood Type Confirm B Positive 12/16/20 12:08: POC Glucose 317 H* 12/16/20 13:03: Blood Type B Positive, Antibody Screen Negative, Crossmatch (AHG) See Detail 12/16/20 16:40: POC Glucose 331 H* 12/16/20 20:50: POC Glucose 364 H* 12/17/20 05:30: Sodium 135 L, Potassium 4.4, Chloride 106, Carbon Dioxide 25, Anion Gap 8.4, BUN 21 H, Creatinine 0.90, Estimated Creat Clear 68, Estimated GFR 66, Est GFR ( Amer) 80, Glucose 242 H, Calcium 8.9, Total Bilirubin 1.0, AST 20, ALT 12, Alkaline Phosphatase 72, Total Protein 6.4, Albumin 3.2 L, Globulin 3.2, Albumin/Globulin Ratio 1.0 L 12/17/20 05:30: Hgb 9.8 L D, Hct 30.7 L 12/17/20 05:41: POC Glucose 254 H I & O for Last 24 hours: Intake & Output 12/14/20 12/15/20 12/16/20 12/17/20 11:59 11:59 11:59 11:59 Intake Total 1999 1623 / 1623 2723 / 2723 1084 / 1084 Output Total 360 / 360 Balance 1999 1263 / 1263 2723 / 2723 1084 / 1084 Weight 268 lb 9 oz 264 lb 265 lb 4 oz 265 lb 3.457 oz - Constitutional no acute distress, obese - *Routine HEENT Exam Head: Present: normocephalic Eye: Present: PERRL ENT: Present: mucous membranes moist - *Routine Neck Exam Present: supple. Absent: lymphadenopathy - *Routine Respiratory Exam Present: CTA bilaterally - *Routine Cardiovascular Exam Present: RRR - *Routine Abdominal Exam Present: soft, normoactive bowel sounds. Absent: tenderness - *Routine Extremities Exam Present: normal capillary refill. Absent: cyanosis, clubbing, edema - *Routine Skin Exam Present: warm. Absent: rash - *Routine Neurological Exam Present: alert, oriented X3 - Routine Psychiatric Exam Present: normal affect Assessment and Plan (1) Sinus tachycardia Status: Acute Category: Medical Code(s): R00.0 - Tachycardia, unspecified (2) Takotsubo cardiomyopathy Status: Acute Category: Medical Code(s): I51.81 - Takotsubo syndrome (3) COVID-19 Status: Acute Category: Medical Code(s): U07.1 - COVID-19 (4) HTN (hypertension) Status: Acute Category: Medical Code(s): I10 - Essential (primary) hypertension (5) History of myocardial infarction Status: Acute Category: Medical Code(s): I25.2 - Old myocardial infarction (6) CAD (coronary artery disease) Status: Chronic Qualifiers: Coronary Disease-Associated Artery/Lesion type: [place] artery [place] vs. transplanted heart: [place] heart Associated angina: without angina Qualified Code(s): I25.10 - Atherosclerotic heart disease of [place] coronary artery without angina pectoris Category: Medical Code(s): I25.10 - Atherosclerotic heart disease of [place] coronary artery without angina pectoris (7) Hyperlipemia Status: Chronic Qualifiers: Hyperlipidemia type: other hyperlipidemia Qualified Code(s): E78.49 - Other hyperlipidemia Category: Medical Code(s): E78.5 - Hyperlipidemia, unspecified (8) Obesity, Class III, BMI 40-49.9 (morbid obesity) Status: Chronic Category: Medical Code(s): E66.01 - Morbid (severe) obesity du
--- NOTE | 2020-12-17 11:13 | HMH.PNCARD ---
Subjective Date: 12/17/20 Time: 10:30 Principal diagnosis: CM Interval history: This is a 50-year-old female who was admitted to [facility] due to diabetic ketoacidosis. She was also tachycardic and cardiology was consulted. Her beta-armin was adjusted and her tachycardia has resolved. The patient was also complaining of black stools and her Effient has since been stopped. The patient did have a LifeVest in place secondary to Takotsubo's cardiomyopathy AKA broken heart syndrome. In November of this year her ejection fraction was approximately 30% and placed on the LifeVest. Today she denies any chest pain or pressure. She denies any shortness of breath or edema. She denies any fever, chills, nausea, vomiting, diarrhea, PND orthopnea. She states that she feels very well and she is ready to go home. Exam Vital signs and Labs for Last 24 Hours: Temp Pulse Resp BP Pulse Ox 98.1 F 76 16 117/74 96 12/17/20 08:00 12/17/20 08:00 12/17/20 08:00 12/17/20 08:00 12/17/20 08:00 Laboratory Results - last 24 hr 12/16/20 11:25: WBC 9.6 D, RBC 2.82 L, Hgb 7.6 L*, Hct 23.9 L*, MCV 84.6, MCH 26.9 L, MCHC 31.8, RDW 17.1, Plt Count 249 D, MPV 10.0, Neut % (Auto) 56.4, Lymph % (Auto) 31.8, [place] % (Auto) 5.7, Eos % (Auto) 5.7, Baso % (Auto) 0.4, Neut # (Auto) 5.4, Lymph # (Auto) 3.1, [place] # (Auto) 0.6, Eos # (Auto) 0.6 H, Baso # (Auto) 0.0 12/16/20 11:25: Blood Type Confirm B Positive 12/16/20 12:08: POC Glucose 317 H* 12/16/20 13:03: Blood Type B Positive, Antibody Screen Negative, Crossmatch (AHG) See Detail 12/16/20 16:40: POC Glucose 331 H* 12/16/20 20:50: POC Glucose 364 H* 12/17/20 05:30: Sodium 135 L, Potassium 4.4, Chloride 106, Carbon Dioxide 25, Anion Gap 8.4, BUN 21 H, Creatinine 0.90, Estimated Creat Clear 68, Estimated GFR 66, Est GFR ( Amer) 80, Glucose 242 H, Calcium 8.9, Total Bilirubin 1.0, AST 20, ALT 12, Alkaline Phosphatase 72, Total Protein 6.4, Albumin 3.2 L, Globulin 3.2, Albumin/Globulin Ratio 1.0 L 12/17/20 05:30: Hgb 9.8 L D, Hct 30.7 L 12/17/20 05:41: POC Glucose 254 H I & O for Last 24 hours: Intake & Output 12/14/20 12/15/20 12/16/20 12/17/20 23:59 23:59 23:59 23:59 Intake Total 2600 / 2600 2343 / 2343 2133 / 2133 834 / 834 Output Total 360 / 360 600 / 600 Balance 2240 / 2240 2343 / 2343 2133 / 2133 234 / 234 Weight 268 lb 15.423 oz 264 lb 265 lb 4 oz 265 lb 3.457 oz Narrative: Echocardiogram shows: 1. Limited echo performed with Definity contrast, limited views were obtained, shows preserved left ventricular systolic function with no regional wall motion abnormality, no left ventricular thrombus seen. 2. No significant pericardial effusion noted. I did discuss this result with Dr. GARDUNO and he states her ejection fraction is 55%. - Constitutional no acute distress, morbidly obese - *Routine HEENT Exam Head: Present: normocephalic, atraumatic Eye: Present: EOMI, PERRL ENT: Present: mucous membranes moist - *Routine Neck Exam Present: supple, full ROM, normal carotid upstroke. Absent: JVD, carotid bruit, lymphadenopathy - *Routine Respiratory Exam Present: CTA bilaterally - *Routine Cardiovascular Exam Present: RRR, Normal S1, Normal S2. Absent: murmur - *Routine Abdominal Exam Present: soft, normoactive bowel sounds. Absent: tenderness, distended - *Routine Extremities Exam Present: full ROM, pulses intact, normal capillary refill. Absent: cyanosis, clubbing, edema - *Routine Skin Exam Present: intact, warm. Absent: erythema, rash - *Routine Neurological Exam Present: alert, oriented X3, CN II-XII intact. Absent: sensory deficit, motor deficit Progress Note: A&P (1) Sinus tachycardia Status: Acute (2) Takotsubo cardiomyopathy Status: Acute (3) COVID-19 Status: Acute (4) HTN (hypertension) Status: Acute (5) History of myocardial infarction Status: Acute (6) CAD (coronary artery disease) Status: Chronic
== END 2020-12-17 13:37 | disposition home or self-care (01) | DRG 637 ==
LOC: ER 20:15 → 2ND 12-14 01:55
PROVIDERS: Emergency Medicine; Nurse Practitioner Family; Admitting Provider Family Medicine; Emergency Provider Emergency Medicine; PCP Internal Medicine; Visit Provider Family Medicine
DX: E11.10 Type 2 diabetes mellitus with ketoacidosis without coma (principal); U07.1 COVID-19; I51.81 Takotsubo syndrome; Z68.41 Body mass index [BMI] 40.0-44.9, adult; N17.9 Acute kidney failure, unspecified; E66.01 Morbid (severe) obesity due to excess calories; I25.2 Old myocardial infarction; I10 Essential (primary) hypertension; I25.10 Atherosclerotic heart disease of native coronary artery without angina pectoris; Z87.891 Personal history of nicotine dependence; Z79.4 Long term (current) use of insulin; D64.9 Anemia, unspecified; Z79.899 Other long term (current) drug therapy; Z88.0 Allergy status to penicillin; Z88.5 Allergy status to narcotic agent; Z95.5 Presence of coronary angioplasty implant and graft
CPT/HCPCS: 36415; 71045; 80048; 80053; 81001; 82009; 82150; 82272; 82962; 83690; 84484; 85007; 85014; 85018; 85025; 86328; 86850; 93005; 93308; 96365; 96367; 96375; 99284; G0328; J2405; P9016; Q9957; U0003

== ENCOUNTER 2021-01-05 19:30 | Emergency (ER) | payer MEDICARE, BC, SELFPAY ==
[2021-01-05] VITALS (8 sets, daily range): BP systolic 101–121; BP diastolic 45–79; PULSE 94–103; RESP 15–18; TEMP 37.8; O2SAT 98–99; BMI 43.5
--- NOTE | 2021-01-05 20:03 | ECG_ITS ---
APPROVED REPORT Exam: Resting ECG HR:95 bpm ECG Measurements Heart Rate 95 AXES [place] 136 P 13 QRSd 84 QRS 10 QT 348 T 89 QTc 437 Conclusion Normal sinus rhythm Normal ECG Electronically signed by : Apolinar Odonnell, 01/06/2021 07:57:06
[2021-01-05 20:19] LABS: Basophils # 0.1 K/mm3 (0-0.2); Basophils % 0.4 % (0.1-2.0); Eosinophils # 0.1 K/mm3 (0.0-0.4); Eosinophils % 0.8 % (0.1-12.0); Hematocrit 30.1 % (37.0-47.0); Hemoglobin 9.4 g/dL (12.2-16.2); Lymphocytes # 2.1 K/mm3 (0.7-4.5); Lymphocytes % 12.5 % (10-50); Mean Corpuscular HGB Conc 31.2 g/dL (31.8-35.4); Mean Corpuscular Hemoglobin 26.4 pg (27.0-31.2); Mean Corpuscular Volume 84.6 fl (81-99); Mean Platelet Volume 9.4 fl (7.4-10.4); Monocytes # 1.3 K/mm3 (0.1-1.0); Monocytes % 7.6 % (1.7-9.3); Neutrophils # 13.4 K/mm3 (1.8-7.8); Neutrophils % 78.8 % (37.0-80.0); Platelet Count 279 K/mm3 (142-424); Red Blood Count 3.55 M/mm3 (4.20-5.40); Red Cell Distribution Width 15.4 % (11.5-17.5)
--- NOTE | 2021-01-05 20:19 | HMH.EDLOEX ---
ED Disposition Clinical Impression: Type 2 diabetes mellitus with diabetic neuropathy, with long-term current use of insulin, Obesity, Class III, BMI 40-49.9 (morbid obesity), Cellulitis and abscess of foot, SIRS (systemic inflammatory response syndrome), Renal insufficiency Disposition: Home, Self-Care Condition on Discharge: Good Instructions: DI for Cellulitis -- Adult Additional Instructions: use meds and see pcp and podiatry for follow up Prescriptions: Sulfamethoxazole/Trimethoprim [Bactrim DS tablet] 1 each PO BID #20 tab Transmission Status: Pending to [facility] Referrals: Diego Lynch [Primary Care Provider] - Dione Castro DPM [Staff Physician] - - Critical Care Critical Care Time: No Attestation: On 01/05/21, the high probability of a clinically significant, sudden or life threatening deterioration of the following system(s) required my full and direct attention, intervention and personal management. The time I documented below is in addition to time spent performing reported procedures but includes the following listed in this critical care notation. Medical Decision Making - Medical Records Medical records reviewed: Yes: I reviewed the patient's medical records. - Harsha Inquiry Pt receiving controlled substance: No Vital Signs: 01/05/21 19:46 01/05/21 20:31 01/05/21 21:00 Temperature 100.1 F H Temperature Source Oral Pulse Rate [Right] 99 H 98 H 103 H Respiratory Rate 18 17 15 Blood Pressure [Right Arm] 109/45 L 118/64 101/63 L Blood Pressure Mean [Right Arm] 66 82 75 Blood Pressure Source [Right Arm] Automatic Cuff Automatic Cuff Automatic Cuff Blood Pressure Position [Right Arm] Sitting Supine Sitting 02 Sat by Pulse Oximetry 99 99 98 Oxygen Delivery Method Room Air Room Air Room Air 01/05/21 21:30 01/05/21 22:00 01/05/21 22:30 Temperature Temperature Source Pulse Rate [Right] 98 H 101 H 98 H Respiratory Rate 17 15 17 Blood Pressure [Right Arm] 115/67 116/69 121/70 Blood Pressure Mean [Right Arm] 83 84 87 Blood Pressure Source [Right Arm] Automatic Cuff Automatic Cuff Automatic Cuff Blood Pressure Position [Right Arm] Supine Supine Supine 02 Sat by Pulse Oximetry 98 99 99 Oxygen Delivery Method Room Air Room Air Room Air - Lab Data Lab results reviewed: Yes: I reviewed the patient's lab results. Lab Results 02/20/21 20:02: WBC 17.0 H, RBC 3.55 L, Hgb 9.4 L, Hct 30.1 L, MCV 84.6, MCH 26.4 L, MCHC 31.2 L, RDW 15.4, Plt Count 279, MPV 9.4, Neut % (Auto) 78.8, Lymph % (Auto) 12.5, [place] % (Auto) 7.6, Eos % (Auto) 0.8, Baso % (Auto) 0.4, Neut # (Auto) 13.4 H, Lymph # (Auto) 2.1, [place] # (Auto) 1.3 H, Eos # (Auto) 0.1, Baso # (Auto) 0.1, Total Counted 100, Neutrophils % (Manual) 84 H, Band Neutrophils % 3.0, Lymphocytes % (Manual) 10, Monocytes % (Manual) 3, Toxic Granulation 2+, Platelet Estimate Normal, RBC Morphology Not Reportable, Hypochromasia 3+, Microcytosis 1+, ESR > 140 H 01/05/21 20:02: Sodium 134 L, Potassium 5.4 H, Chloride 106, Carbon Dioxide 20 L, Anion Gap 13.4, BUN 22 H, Creatinine 1.10 H, Estimated Creat Clear 56, Estimated GFR 52 L, Est GFR ( Amer) 63, Glucose 250 H, Calcium 9.7, Total Bilirubin 0.8, AST 39 H, ALT 13, Alkaline Phosphatase 87, C-Reactive Protein 265.9 H, Total Protein 8.6 H D, Albumin 4.0, Globulin 4.6 H, Albumin/Globulin Ratio 0.9 L, Procalcitonin 0.623 01/05/21 20:02: Lactate 1.4 Result diagrams: 01/05/21 20:02 01/05/21 20:02 Orders (Tests/Meds): ED MEDICATIONS Generic Name Dose Route Start Last Admin Trade Name Freq PRN Reason Stop Dose Admin Sodium Chloride 1,000 mls @ 999 mls/hr 01/05/21 20:15 01/05/21 20:26 Sod Chlor 0.9% 1000ml Bag IV 01/05/21 21:15 999 mls/hr .Q1H1M PETE Administration ORDERS Category Date Time Status CT foot LT wo con Stat Cat Scan 01/05/21 21:21 Taken Covid-19 Nasal PCR ([facility]) Routine Lab 01/05/21 20:02 Received Blood Culture Stat Micro 01/05/21 20:02 Received - CT
[2021-01-05 20:28] LABS: Chloride 106 mmol/L (98-107); MANUAL DIFFERENTIAL MANUAL DIFFERENTIAL (MANUAL DIFF); Potassium 5.4 mmoL/L (3.5-5.1); Sodium 134 mmol/L (136-145)
[2021-01-05 20:30] LABS: Alanine Aminotransferase 13 U/L (12-78); Aspartate Amino Transferase 39 U/L (14-36); Blood Urea Nitrogen 22 mg/dl (7-17); Creatinine Clearance Estimated 56 mL/min (50-200); Estimated Glomerular Filt Rate 52 ml/min (>60); GFR (African American) 63 ML/MIN (>60)
[2021-01-05 20:31] LABS: Albumin/Globulin Ratio 0.9 (1.1-1.8); Alkaline Phosphatase 87 U/L (38-126); Anion Gap 13.4 mEq/L (5-15); Bilirubin,Total 0.8 mg/dl (0.2-1.3); Calcium 9.7 mg/dl (8.4-10.2); Carbon Dioxide 20 mmol/L (22.0-30.0); Globulin 4.6 g/dL (1.3-3.2); Glucose 250 mg/dl (74-100); Total Protein,Serum 8.6 g/dl (6.3-8.2)
[2021-01-05 20:32] LABS: Lactic Acid 1.4 mmol/L (0.7-2.1)
[2021-01-05 20:36] LABS: C-Reactive Protein 265.9 mg/L (0-4)
[2021-01-05 20:51] LABS: Procalcitonin 0.623 ng/mL (0.0-2.0)
[2021-01-05 20:55] LABS: Erythrocyte Sedimentation Rate > 140 mm/hr (0-30)
[2021-01-05 21:08] LABS: Hypochromasia 3+; Lymphocytes % 10 % (10-50); Microcytosis 1+; Monocytes % 3 % (2-9); Neutrophils % 84 % (42-76); Platelet Estimate Normal; Total Cells Counted 100; Toxic Granulation 2+
--- NOTE | 2021-01-05 21:21 | CT_ITS ---
PROCEDURE: CT FOOT LT WO CON CLINICAL HISTORY: possable osteo Foot pain, redness and swelling, blister on 1st digit COMPARISON: CR XR FOOT LT MIN 3V from 11/22/2020 TECHNIQUE: Axial images obtained with sagittal and coronal reformats. All CT scans at the facility use one or more dose reduction, viz: automated exposure control, ma/kV adjustment per patient size (including targeted exams where dose is matched to indication, i.e. head), or iterative reconstruction technique. FINDINGS: No recent radiographs available for comparison. Prior talocalcaneal and calcaneocuboid fusion. A long screw is present from the distal aspect of the 1st metatarsal into the medial cuneiform navicular and into the talus with prior talonavicular fusion. There is non fusion of the calcaneocuboid joint. There is a known fracture of the long lag screw at the talar navicular region. This is not well demonstrated on the CT due to the imaging plane but is seen on the physical sciences instructor view and on a recent radiograph of 11/22/2020. There is a prominent zone of lucency at the navicular area and at the medial cuneiform region around this long lag screw which may reflect loosening as opposed to infection. There is a a focal fluid collection measuring 2 x 1.5 x 2.4 cm in the subcutaneous fat overlying the 1st metatarsophalangeal joint. This may or may not be infected. Soft tissue swelling is present along the dorsal aspect of the foot. There is also soft tissue swelling at the plantar region of the foot at the calcaneal area. No acute bony erosive process evident that would suggest osteomyelitis. There is a lucency involving the distal tibia measuring approximately 7 mm and may be due to a a subcortical cyst. Degenerative changes are present in the midfoot. Hammertoe deformity involves the digits 2 through 5. IMPRESSION: 1. Cystic collection along the dorsal aspect of the 1st metatarsophalangeal junction which may or may not be infected. 2. Cellulitis. 3. Postsurgical changes with fracture of the long lag screw at the talonavicular region with lucency around the screw at the talonavicular and medial cuneiform area which may reflect loosening of the screw which is fractured at this region. Consider radiographs for comparison and to better compared to the radiograph of 11/22/2020. 4. No definite evidence of acute osteomyelitis. 5. Degenerative changes. Prior hindfoot fusion. Dictated by: Hemal Pedersen MD 01/07/2021 09:53 Hemal Pedersen MD in [place] 01/07/2021 09:53
[2021-01-06] VITALS: BP 120/62; PULSE 94; RESP 17; O2SAT 99
--- NOTE | 2021-01-06 | CA_ITS ---
APPROVED REPORT Bilateral Lower Extremity Venous Study for [place] Physiotherapist: CN Indications CAD Lt hassan redness with edema Risk Factors Cardiac Disease Obesity Medications Aspirin Findings Negative for DVT at this time. Color flow duplex of the left lower extremity demonstrates no evidence of superficial venous thrombophlebitis. Color flow duplex demonstrates no evidence of DVT of the following left lower extremity Veins. Conclusion Negative for DVT at this time. Color flow duplex of the left lower extremity demonstrates no evidence of superficial venous thrombophlebitis. Color flow duplex demonstrates no evidence of DVT of the following left lower extremity Veins. Electronically signed by : Hemal Pedersen MD 01/07/2021 17:24:52
[2021-01-06 00:30] VITALS: BP 126/65; PULSE 91; RESP 15; O2SAT 97
[2021-01-06 01:00] VITALS: BP 123/60; PULSE 90; RESP 17; O2SAT 98
[2021-01-06 01:30] VITALS: BP 114/60; PULSE 90; RESP 18; O2SAT 98
[2021-01-06 02:27] VITALS: BP 126/67; PULSE 92; RESP 18; TEMP 37.3; O2SAT 98
== END 2021-01-06 02:30 | disposition home or self-care (01) ==
PROVIDERS: Emergency Provider Emergency Medicine; PCP Internal Medicine
DX: L03.116 Cellulitis of left lower limb (principal); R65.10 Systemic inflammatory response syndrome (SIRS) of non-infectious origin without acute organ dysfunction; E11.65 Type 2 diabetes mellitus with hyperglycemia; Z20.822 Contact with and (suspected) exposure to COVID-19; Z79.4 Long term (current) use of insulin; E66.01 Morbid (severe) obesity due to excess calories; Z68.41 Body mass index [BMI] 40.0-44.9, adult; M79.7 Fibromyalgia; I25.10 Atherosclerotic heart disease of native coronary artery without angina pectoris; I10 Essential (primary) hypertension; E78.5 Hyperlipidemia, unspecified; I25.2 Old myocardial infarction; Z88.5 Allergy status to narcotic agent; Z79.899 Other long term (current) drug therapy; Z87.891 Personal history of nicotine dependence
CPT/HCPCS: 73700; 80053; 83605; 84145; 85007; 85025; 85651; 86140; 87040; 87077; 87186; 88305; 88311; 93005; 93971; 96365; 96367; 99284; J3370; U0003

== ENCOUNTER → 2021-01-06 12:02 | Outpatient (CLI) | payer MEDICARE, BC, SELFPAY | PROVIDERS: PCP Internal Medicine; Visit Provider Emergency Medicine | DX: M79.605 Pain in left leg (principal); R60.0 Localized edema ==

== ENCOUNTER 2021-01-07 10:17 | Inpatient (IN) | payer MEDICARE, BC, SELFPAY ==
[2021-01-07] VITALS (22 sets, daily range): BP systolic 94–137; BP diastolic 48–78; PULSE 77–94; RESP 16–20; TEMP 36.6–43; O2SAT 92–98; BMI 43.5; BMI 44.4
--- NOTE | 2021-01-07 10:31 | XR_ITS ---
PROCEDURE: XR FOOT LT 2V CLINICAL INDICATION: pain COMPARISON: CR XR FOOT WT BEARING LT 3V from 09/03/2020 CR XR FOOT WT BEARING RT 3V from 09/03/2020 CR XR FOOT RT MIN 3V from 11/22/2020 CR XR FOOT LT MIN 3V from 11/22/2020 FINDINGS: S/p talocalcaneal, calcaneocuboid, and talonavicular fusion. There is fracture of the long lag screw at the talonavicular region. This screw extends from the distal aspect of the 1st metatarsal into the talus. This has a similar appearance compared to the previous exam. The apex of the fractured screw is angled slightly inferiorly. 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 There is fusion of the medial cuneiform and 1st metatarsal. Prominent zone of lucency is once again noted at the medial cuneiform area, navicular, and talus. Overall, these findings are not significantly changed and likely related to loosening of the screw secondary to the fractured screw. No convincing evidence of osteomyelitis. Hammertoe deformity is present at digits 2 through 5. There is lateral angulation of the distal phalanx of the great toe. Mild soft tissue swelling noted at the 1st metatarsophalangeal junction dorsally. Small lucency is noted in this region and may be related to ulceration or possible soft tissue gas versus recent debridement. Charcot joint noted in the midfoot. There is pes planus. IMPRESSION: Numerous findings are present as discussed above including prior fusion, fractured screw from the 1st metatarsal to the talus with lucent region around the screw which may be due to loosening. 6 mm hypodensity at the 1st metatarsophalangeal junction within the soft tissues which may be related to ulceration, abscess, or recent debridement Dictated by: Hemal Pedersen MD 01/07/2021 11:58 Hemal Pedersen MD in [place] 01/07/2021 11:58
[2021-01-07 11:10] LABS: Basophils % 0.3 % (0.1-2.0); Eosinophils # 0.5 K/mm3 (0.0-0.4); Eosinophils % 4.3 % (0.1-12.0); Hematocrit 31.8 % (37.0-47.0); Hemoglobin 9.7 g/dL (12.2-16.2); Lymphocytes # 1.7 K/mm3 (0.7-4.5); Lymphocytes % 14.4 % (10-50); Mean Corpuscular HGB Conc 30.6 g/dL (31.8-35.4); Mean Corpuscular Hemoglobin 25.9 pg (27.0-31.2); Mean Corpuscular Volume 84.5 fl (81-99); Mean Platelet Volume 9.1 fl (7.4-10.4); Monocytes # 0.7 K/mm3 (0.1-1.0); Neutrophils # 8.6 K/mm3 (1.8-7.8); Platelet Count 357 K/mm3 (142-424); Red Blood Count 3.77 M/mm3 (4.20-5.40); Red Cell Distribution Width 15.6 % (11.5-17.5); White Blood Count 11.5 K/mm3 (4.8-10.8)
--- NOTE | 2021-01-07 11:12 | HMH.EDGENADL ---
ED Disposition Clinical Impression: Cellulitis of left foot, Renal insufficiency, Blood culture positive for microorganism, Type 2 diabetes mellitus with diabetic neuropathy, with long-term current use of insulin, Diabetic ulcer of right foot due to type 2 diabetes mellitus Disposition: Admitted As Inpatient Condition on Discharge: Serious Instructions: Cellulitis Referrals: Diego Lynch [Primary Care Provider] - - Critical Care Critical Care Time: No Attestation: On 01/07/21, the high probability of a clinically significant, sudden or life threatening deterioration of the following system(s) required my full and direct attention, intervention and personal management. The time I documented below is in addition to time spent performing reported procedures but includes the following listed in this critical care notation. Medical Decision Making - Medical Records Medical records reviewed: Yes: I reviewed the patient's medical records. - Harsha Inquiry Pt receiving controlled substance: No Vital Signs: 01/07/21 10:18 Temperature 98.8 F Temperature Source Oral Pulse Rate [Left Radial] 94 H Respiratory Rate 20 Blood Pressure [Right Arm] 116/69 Blood Pressure Mean [Right Arm] 84 Blood Pressure Source [Right Arm] Automatic Cuff Blood Pressure Position [Right Arm] Sitting 02 Sat by Pulse Oximetry 98 Oxygen Delivery Method Room Air - Lab Data Lab Results 01/07/21 10:54: WBC 11.5 H D, RBC 3.77 L, Hgb 9.7 L, Hct 31.8 L, MCV 84.5, MCH 25.9 L, MCHC 30.6 L, RDW 15.6, Plt Count 357 D, MPV 9.1, Neut % (Auto) 75.0, Lymph % (Auto) 14.4, [place] % (Auto) 6.0, Eos % (Auto) 4.3, Baso % (Auto) 0.3, Neut # (Auto) 8.6 H, Lymph # (Auto) 1.7, [place] # (Auto) 0.7, Eos # (Auto) 0.5 H, Baso # (Auto) 0.0 01/07/21 10:54: PT 10.5, INR 0.94, APTT 24.3 01/07/21 10:54: Sodium 139, Potassium 4.2 D, Chloride 108 H, Carbon Dioxide 23, Anion Gap 12.2, BUN 19 H, Creatinine 1.20 H, Estimated Creat Clear 51, Estimated GFR 47 L, Est GFR ( Amer) 57 L, Glucose 146 H, Calcium 9.7, Total Bilirubin 0.4, AST 18 D, ALT 10 L, Alkaline Phosphatase 121, Total Protein 8.5 H, Albumin 4.0, Globulin 4.5 H, Albumin/Globulin Ratio 0.9 L 01/07/21 10:54: Lactate 0.9 Result diagrams: 01/07/21 10:54 01/07/21 10:54 Orders (Tests/Meds): ORDERS Category Date Time Status XR foot LT 2V Stat Exams 01/07/21 10:31 Taken Blood Culture Stat Micro 01/07/21 10:31 Received - Radiology Data #1 Image(s): Foot/Toes Image Reviewed: Yes I reviewed the patient's radiology results, Yes I reviewed the patient's radiology image Soft tissue swelling, no fracture - Reevaluation(s) Time: 11:58 Reevaluation #1: On reevaluation, the patient's white count appears to be improving. She is afebrile. We will continue IV antibiotics. Patient will be admitted to the hospital for further evaluation and treatment. Medical Decision Narrative: 50-year-old female presenting with ulcer on the left foot. There appears to be surrounding cellulitis. Patient did have positive blood cultures. Patient was started on broad-spectrum antibiotics. Work-up initiated. General Adult HPI - General Chief complaint: Wound/Laceration Stated complaint: left foot ulcer Time Seen by Provider: 01/07/21 10:25 Mode of Arrival: Wheelchair Limitations: No Limitations Description of Symptoms (Recalled from ER Triage Doc. by RN): c/o left foot ulcer that she noticed Thursday, sent from the foot doctor for further workup. - History of Present Illness HPI narrative: This is a 50-year-old female presented to the emergency department with swelling and ulcer on her left foot. The patient was recently seen in the emergency department and was diagnosed with cellulitis. She did receive IV antibiotics. She went to follow-up with her survey and mapping technician today and was sent to the emergency department for admission. Upon reviewing the patient's work-up, she did have positive blood cultures which appear t
[2021-01-07 11:18] LABS: Chloride 108 mmol/L (98-107); Potassium 4.2 mmoL/L (3.5-5.1); Sodium 139 mmol/L (136-145)
[2021-01-07 11:20] LABS: Alanine Aminotransferase 10 U/L (12-78); Aspartate Amino Transferase 18 U/L (14-36); Blood Urea Nitrogen 19 mg/dl (7-17); Creatinine Clearance Estimated 51 mL/min (50-200); Estimated Glomerular Filt Rate 47 ml/min (>60); GFR (African American) 57 ML/MIN (>60)
[2021-01-07 11:21] LABS: Albumin/Globulin Ratio 0.9 (1.1-1.8); Alkaline Phosphatase 121 U/L (38-126); Anion Gap 12.2 mEq/L (5-15); Bilirubin,Total 0.4 mg/dl (0.2-1.3); Calcium 9.7 mg/dl (8.4-10.2); Carbon Dioxide 23 mmol/L (22.0-30.0); Globulin 4.5 g/dL (1.3-3.2); Glucose 146 mg/dl (74-100); Lactic Acid 0.9 mmol/L (0.7-2.1); Total Protein,Serum 8.5 g/dl (6.3-8.2)
[2021-01-07 11:26] LABS: Activated Partial Thrombo Time 24.3 seconds (23.6-34.0); INR 0.94 (0.9-1.1); Prothrombin Time 10.5 seconds (9.4-11.8)
--- NOTE | 2021-01-07 12:12 | PC.NURSE ---
Went into pt's room and asked if she had a list of current medications. Advises she did not but they should all be in the computer because she was just here on Thursday.
--- NOTE | 2021-01-07 13:09 | HMH.ORTHOCON ---
*Admission Date: 01/07/21 *Reason for consult:: Left foot cellulitis, abscess *History of present illness: Patient is a 50-year-old diabetic female who presented initially to the ER 01/05/2021 with complaint of the left foot blister and cellulitis. She was given a dose of vancomycin and discharged on Bactrim. Patient reports fevers yesterday and overall malaise. She states the redness has spread and gotten worse and reports pain to the left foot. Patient is well-known to the podiatry team and we have been treating her for bilateral subfirst metatarsal noninfected ulcers outpatient. The left dorsal foot blister/wound is new since her last appointment. She reports it started 01/04/2021. Patient had CT left foot in the ED which does show a cystic fluid collection. Patient has pending blood cultures which were growing GPC. Last hemoglobin A1c, 01/04/2021 7.1%. [facility] History I have reviewed the patient's past medical history: Yes 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: Reports:: Anxiety, Arrhythmia, Coronary Artery Disease, Diabetes Mellitus Type 2, Hyperlipidemia, Hypertension, Myocardial Infarction Denies:: Asthma, Cancer, Chronic Obstructive Pulmonary Disease (COPD), Diabetes Mellitus Type 1, Internal Pacemaker, MRSA, Seizures *Have you ever received a pneumonia vaccine?: No *Have you received a flu vaccine this season?: No Other 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: Reports: Arthritis, Fibromyalgia, Other. Denies: Blood Transfusion Reaction Laterality Cases: Bilateral: Arthroscopy Knee, Arthroscopy Shoulder, Other Other Surgeries: Yes: No Previous Surgery, Appendectomy, Cardiac Catheterization (03/26/2020), Cholecystectomy, Colonoscopy, Coronary Stent, Hysterectomy-Total, Other. No: Pacemaker Amputation: No Fractures: No - *Social History Smoking Status: Former smoker # Packs/Day (cigarettes): 0 #Yrs smoked (if former smoker): 25 Alcohol Intake: never Alcohol Intake Frequency:: other Substance Use Type: denies use *Occupational Status:: disabled Housing: house Household Members: family *Travel in the last 8 weeks: None - Psychiatric History Pschychiatric History:: Reports:: Anxiety Family Hx:: Cancer, Hyperlipidemia, Hypertension, Stroke Review of Systems - Review of Systems Review of systems:: pertinent systems reviewed and negative unless documented below - Constitutional Reports fever(s), Reports malaise - Eyes Denies blind spots - ENT Denies abnormal hearing - *Cardiovascular Reports shortness of breath with activity, Denies chest pain - *Respiratory Denies chest congestion, Denies shortness of breath - *Gastrointestinal Reports nausea - *Genitourinary Denies abnormal periods - *Musculoskeletal Reports numbness - Integumentary/Breasts Reports hair loss, Reports dry skin, Reports skin ulcer, Reports wounds (b/l sub 1st metatarsal ulcers) - *Neurologic Denies headache(s) - Psychiatric Denies abnormal sleep pattern - Endocrine Reports increased thirst - Hematologic/Lymphatic Reports easy bruising - Allergic/Immunologic Reports GI upset with certain foods Meds Home Medications Medication Instructions Recorded Confirmed Type Hydrocodone/Acetaminophen 1 each PO Q6H 02/03/19 01/07/21 History [Hydrocodone-Acetamin 10-325 mg] Aspirin 81 mg PO DAILY 04/08/19 01/07/21 History ezetimibe 10 mg tablet 10 mg PO DAILY tab 03/06/20 01/07/21 History duloxetine 60 mg capsule,delayed 60 mg PO BID 07/02/20 01/07/21 History release liraglutide 0.6 mg/0.1 mL (18 mg/3 1.8 mg SQ DAILY 30 Days #9 ml 09/17/20 01/07/21 History mL) subcutaneous pen injector dapagliflozin 10 mg tablet 10 mg PO DAILY tab 11/01/20 01/07/21 History insulin glargine 100 unit/mL (3 75 unit SQ HS ml 11/01/20 01/07/21 History mL) subcutaneous pen Trazodone HCl [Desyrel 50mg tablet] 100 mg PO HS 11/18/20 01/07/21 History Tramadol HCl [Ultram 50mg 50 mg PO Q6HP PRN tab 11/23/20 01/07/21 Rx tablet] Isosorbide Mononitrate [Imdur 60mg 60 mg PO DAILY 12/14/20 0
--- NOTE | 2021-01-07 15:52 | XR_ITS ---
PROCEDURE: XR FOOT RT MIN 3V CLINICAL INDICATION: post operative Follow-up surgery/fusion COMPARISON: CR XR FOOT WT BEARING LT 3V from 09/03/2020 CR XR FOOT RT MIN 3V from 11/22/2020 CR XR FOOT LT MIN 3V from 11/22/2020 CR XR FOOT LT 2V from 01/07/2021 FINDINGS: Status post extensive right foot surgery with talocalcaneal, calcaneocuboid and 1st metatarsal tarsal fusion as previously described. No change in the hardware. No evidence of hardware malfunction. There remains good alignment. No acute fracture or dislocation. Calcaneal spurs present and there is hammertoe deformity of the 1st through 5th toes. Lucency is noted at the proximal aspect of the proximal phalanx of the 3rd toe and may be due to a subchondral cyst. IMPRESSION: Stable appearance of the foot status post extensive surgery with fusion as described above. Dictated by: Hemal Pedersen MD 01/07/2021 16:37 Hemal Pedersen MD in [place] 01/07/2021 16:37
--- NOTE | 2021-01-07 15:52 | XR_ITS ---
PROCEDURE: XR FOOT LT MIN 3V CLINICAL INDICATION: post operative Follow-up surgery COMPARISON: CR XR FOOT WT BEARING LT 3V from 09/03/2020 CR XR FOOT RT MIN 3V from 11/22/2020 CR XR FOOT LT MIN 3V from 11/22/2020 CR XR FOOT LT 2V from 01/07/2021 FINDINGS: Status post hardware removal with removal the long lag screw from the distal aspect of the 1st metatarsal into the talonavicular region. Antibiotic beads are placed along the tract of the screw. There is a defect involving the distal aspect of the 1st metatarsal with a small amount of soft tissue gas noted at this region. The proximal aspect of that screw at the mid talus remains in place. Status post talocalcaneal and calcaneocuboid fusion IMPRESSION: Postsurgical changes with hardware removal and antibiotic bead placement as described above. Dictated by: Hemal Pedersen MD 01/07/2021 16:41 Hemal Pedersen MD in [place] 01/07/2021 16:41
--- NOTE | 2021-01-07 16:12 | HMH.ANESCL ---
[facility] Anesthesia Checklist - Patient Identification Patient Identification: Arm Band - Structural Data Admitted From: Home Planned Operative Procedure/s: I&D left foot Consent for Planned Operative Procedure(s) Verified: Yes Verified Documents: Surgical Consent, History and Physical - NPO Status Verified Time NPO: 00:00 - Additional verifications Anesthesia Reactions: No Hx Blood Transfusions: No Blood Transfusion Reaction: No - Airway Assessment C-Spine Mobility Assessed: Yes (mp2) Dentition: Good Dentition - Neurological Assessment Level of Consciousness: Awake, Alert - Anesthesia Plan Anesthesia Risk discussed: Yes Anesthesia Plan: Verified ASA Class: III Anesthesia Type: General [facility] History I have reviewed the patient's past medical history: Yes 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: Reports:: Anxiety, Arrhythmia, Coronary Artery Disease, Diabetes Mellitus Type 2, Hyperlipidemia, Hypertension, Myocardial Infarction Denies:: Asthma, Cancer, Chronic Obstructive Pulmonary Disease (COPD), Diabetes Mellitus Type 1, Internal Pacemaker, MRSA, Seizures *Have you ever received a pneumonia vaccine?: No *Have you received a flu vaccine this season?: No Other 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: Reports: Arthritis, Fibromyalgia, Other. Denies: Blood Transfusion Reaction Anesthesia experience/problems:: nac Laterality Cases: Bilateral: Arthroscopy Knee, Arthroscopy Shoulder, Other Other Surgeries: Yes: Appendectomy, Cardiac Catheterization (03/26/2020), Cholecystectomy, Colonoscopy, Coronary Stent, Hysterectomy-Total, Other. No: Pacemaker Amputation: No Fractures: No - *Social History Smoking Status: Former smoker # Packs/Day (cigarettes): 0 #Yrs smoked (if former smoker): 25 Alcohol Intake: never Alcohol Intake Frequency:: other Substance Use Type: denies use *Occupational Status:: disabled Housing: house Household Members: family *Travel in the last 8 weeks: None - Psychiatric History Pschychiatric History:: Reports:: Anxiety Family Hx:: Cancer, Hyperlipidemia, Hypertension, Stroke
--- NOTE | 2021-01-07 16:13 | P.PN_ITS ---
[facility] Anesthesia Record Part I Intake, IV Amount: 1,000 Estimated blood loss (mL): 5 Urine output (mL): 0 Blood Pressure: 116/65 SaO2: 95 Pulse Rate: 90 Respiratory Rate: 16 Temperature: 98.5 F Patient is:: Drowsy, Stable Stable to PACU at:: 16:05
[2021-01-07 16:17] LABS: POC Glucose,Bedside 164 (70-110)
--- NOTE | 2021-01-07 16:21 | PC.NURSE ---
XR completed of B/L feet
--- NOTE | 2021-01-07 16:25 | HMH.OPNOTE ---
Date of procedure: 01/08/21 Pre-op Diagnosis:: 1. B/L foot (sub 1st metatarsal) diabetic ulcer 2. Left dorsal foot ulcer 3. Left foot abscess 4. Left foot cellulitis Post-op Diagnosis:: Same Procedure performed:: 1. B/L foot (sub 1st metatarsal) ulcer debridement 2. Left foot incision and drainage 3. Left dorsal foot ulcer excision 4. Left foot bone biospy 5. Left foot hardware removal 6. Application of antibiotic beads-left foot Surgeon:: Dione Castro DPM DOCUMENT RESTORER:: Pravin Rosario Anesthesia: GETA, local (30cc 0.5% marcaine plain) Estimated blood loss (mL): 10 Clinical Note:: Patient is a 50-year-old diabetic female who presented initially to the ER 01/05/2021 with complaint of the left foot blister and cellulitis. She was given a dose of vancomycin and discharged on Bactrim. Patient reports fevers yesterday and overall malaise. She states the redness has spread and gotten worse and reports pain to the left foot. Patient is well-known to the podiatry team and we have been treating her for bilateral subfirst metatarsal noninfected ulcers outpatient. The left dorsal foot blister/wound is new since her last appointment. She reports it started 01/04/2021. Patient had CT left foot in the ED which does show a cystic fluid collection. Patient has pending blood cultures which were growing GPC. Last hemoglobin A1c, 01/04/2021 7.1%. Operative findings:: Bilateral subfirst metatarsal ulcers noted. Post debridement sharply excisionally with 15 blade and forceps through skin and callus, right subfirst metatarsal ulcer measured 0.9x0.6x0.2cm. Some serosanguineous drainage noted, wound culture taken. Wound base 100% granular. No deep signs of infection noted. Left subfirst metatarsal ulcer post debridement measures 0.2 x 0.2 x 0.1 cm. Wound base 100% granular with no periwound signs of infection noted plantarly. Left dorsal foot ulcer noted with edema and erythema to the dorsal midfoot. Purulent drainage noted from ulcer which measured 2 x 2 cm and probed 0.4 cm deep. Wound culture taken. Ulcer excised. First metatarsal phalangeal joint evaluated. Cortical erosions noted to the base of the proximal phalanx. First metatarsal head hardware was loose. There was purulent drainage localized around the first MPJ. 10-15 cc of thick yellow creamy purulence was expressed. The screw was broken at the level of the midfoot. It was removed from the first metatarsal head without complication. Cortical erosions and soft crumbly bone noted to the first metatarsal head. Concern of deeper bone infection that extends through the prior medial column/midfoot fusion. TN joint bone soft, degenerative. Difficult to determine if Charcot or osteomyelitis process, bone cultures and open bone biospies performed. Depending on biospy, plan need aggressive bone debridement vs amputation. Operative note:: On this date and time the patient was deemed an appropriate surgical candidate. With informed consent time patient was transferred from the preoperative holding area to the operating theater placed on table in a normal supine position. General anesthesia induced. 30 cc of half percent Marcaine plain was infiltrated at the end of the case as a left ankle block. Left lower extremities prepped and draped in normal sterile fashion. Left mid-calf tourniquet utilized @225mmHg. IV clindamycin infused. Right foot (sub 1st metatarsal) ulcer debridement: Betadine prep used for the right foot. Attention was directed to the right subfirst metatarsal which was sharply excisionally debrided with a 15 blade and forceps through skin and callus. Post debridement right subfirst metatarsal ulcer measured 0.9x0.6x0.2cm. Some serosanguineous drainage noted, wound culture taken. Wound base 100% granular. No deep signs of infection. Xeroform dry gauze and a dry sterile dressing was applied to the right foot. Left foot (sub 1st metatarsal) ulcer debridement: Betadine prep used for the left foot. Plantar
--- NOTE | 2021-01-07 16:40 | HMH.PHACONS ---
- Pharmacy Consult Date: 01/07/21 Time: 16:40 Referring provider: DR. VALENTINO Reason for Consult:: VANCOMYCIN DOSING Allergies and ADEs:: Allergies Allergy/AdvReac Type Severity Reaction Status Date / Time amoxicillin [AMOXICILLIN] Allergy Unknown Unknown Verified 12/25/20 14:10 allergy reaction codeine [CODEINE] AdvReac Mild STOMACH Verified 12/25/20 14:10 CRAMPS morphine [MORPHINE] AdvReac Mild STOMACH Verified 12/25/20 14:10 CRAMPS oxycodone [From Percocet] AdvReac Mild STOMACH Verified 12/25/20 14:10 CRAMPS Home Medications:: Home Medications Medication Instructions Recorded Confirmed Type Hydrocodone/Acetaminophen 1 each PO Q6H 02/03/19 01/07/21 History [Hydrocodone-Acetamin 10-325 mg] Aspirin 81 mg PO DAILY 04/08/19 01/07/21 History ezetimibe 10 mg tablet 10 mg PO DAILY tab 03/06/20 01/07/21 History duloxetine 60 mg capsule,delayed 60 mg PO BID 07/02/20 01/07/21 History release liraglutide 0.6 mg/0.1 mL (18 mg/3 1.8 mg SQ DAILY 30 Days #9 ml 09/17/20 01/07/21 History mL) subcutaneous pen injector dapagliflozin 10 mg tablet 10 mg PO DAILY tab 11/01/20 01/07/21 History insulin glargine 100 unit/mL (3 75 unit SQ HS ml 11/01/20 01/07/21 History mL) subcutaneous pen Trazodone HCl [Desyrel 50mg tablet] 100 mg PO HS 11/18/20 01/07/21 History Tramadol HCl [Ultram 50mg 50 mg PO Q6HP PRN tab 11/23/20 01/07/21 Rx tablet] Isosorbide Mononitrate [Imdur 60mg 60 mg PO DAILY 12/14/20 01/07/21 History ER tablet] Pregabalin [Lyrica 200mg Cap] 200 mg PO BID 12/14/20 01/07/21 History Metoprolol Tartrate [Lopressor 100 100 mg PO BID 30 Days #60 tab 12/17/20 01/07/21 Rx mg Tablets] Ascorbic Acid 500 mg PO QID 01/05/21 01/07/21 History Ergocalciferol (Vitamin D2) 50,000 unit PO WEEKLY 01/05/21 01/07/21 History [Vitamin D2] Spironolactone [Spironolactone 25 mg PO DAILY 01/05/21 01/07/21 History 25mg Tablet] Zinc Sulfate [Zinc-220] 220 mg PO DAILY 01/05/21 01/07/21 History Pravastatin Sodium [Pravachol] 40 mg PO DAILY 01/07/21 01/07/21 History Sulfamethoxazole/Trimethoprim 1 each PO BID 01/07/21 01/07/21 History [Bactrim DS tablet] ramipriL [Ramipril] 5 mg PO DAILY 01/07/21 01/07/21 History Height: 1.68 m Weight: 122.47 kg Laboratory Results:: Laboratory Results - last 24 hr 01/07/21 10:54: WBC 11.5 H D, RBC 3.77 L, Hgb 9.7 L, Hct 31.8 L, MCV 84.5, MCH 25.9 L, MCHC 30.6 L, RDW 15.6, Plt Count 357 D, MPV 9.1, Neut % (Auto) 75.0, Lymph % (Auto) 14.4, [place] % (Auto) 6.0, Eos % (Auto) 4.3, Baso % (Auto) 0.3, Neut # (Auto) 8.6 H, Lymph # (Auto) 1.7, [place] # (Auto) 0.7, Eos # (Auto) 0.5 H, Baso # (Auto) 0.0 01/07/21 10:54: PT 10.5, INR 0.94, APTT 24.3 01/07/21 10:54: Sodium 139, Potassium 4.2 D, Chloride 108 H, Carbon Dioxide 23, Anion Gap 12.2, BUN 19 H, Creatinine 1.20 H, Estimated Creat Clear 51, Estimated GFR 47 L, Est GFR ( Amer) 57 L, Glucose 146 H, Calcium 9.7, Total Bilirubin 0.4, AST 18 D, ALT 10 L, Alkaline Phosphatase 121, Total Protein 8.5 H, Albumin 4.0, Globulin 4.5 H, Albumin/Globulin Ratio 0.9 L 01/07/21 10:54: Lactate 0.9 02/22/21 16:11: POC Glucose 164 H 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: Reports:: Anxiety, Arrhythmia, Coronary Artery Disease, Diabetes Mellitus Type 2, Hyperlipidemia, Hypertension, Myocardial Infarction Denies:: Asthma, Cancer, Chronic Obstructive Pulmonary Disease (COPD), Diabetes Mellitus Type 1, Internal Pacemaker, MRSA, Seizures Assessment and Plan (1) Foot abscess, left Status: Acute Category: Medical Code(s): L02.612 - Cutaneous abscess of left foot (2) Blood culture positive for microorganism Status: Acute Category: Medical Code(s): R79.89 - Other specified abnormal findings of blood chemistry (3) Cellulitis of left foot Status: Acute Category: Medical Code(s): L03.116 - Cellulitis of left lower limb (4) Diabetic ulcer of right foot due to type 2 diabetes mellitus Status: Acute Category: Medical Code(s):
--- NOTE | 2021-01-07 18:33 | HMH.HP ---
*Admission Date: 01/07/21 <Usha Guerrero - 01/07/21 18:52> *Chief complaint: Cellulitis of the left lower leg <Usha Guerrero - 01/07/21 18:52> *History of present illness: *History of present illness: Patient is a 50-year-old diabetic female who presented initially to the ER 01/05/2021 with complaint of the left foot blister and cellulitis. She was given a dose of vancomycin and discharged on Bactrim. Patient reports fevers yesterday and overall malaise. She states the redness has spread and gotten worse and reports pain to the left foot. Patient is well-known to the podiatry team and we have been treating her for bilateral subfirst metatarsal noninfected ulcers outpatient. The left dorsal foot blister/wound is new since her last appointment. She reports it started 01/04/2021. Patient had CT left foot in the ED which does show a cystic fluid collection. Patient has pending blood cultures which were growing GPC. Last hemoglobin A1c, 01/04/2021 7.1%. The above per Dr. Castro on admission Patient was taken to surgery from the emergency room with the following notation: Date of procedure: 01/07/21 Pre-op Diagnosis:: 1. B/L foot (sub 1st metatarsal) diabetic ulcer 2. Left dorsal foot ulcer 3. Left foot abscess 4. Left foot cellulitis Post-op Diagnosis:: Same Procedure performed:: 1. B/L foot (sub 1st metatarsal) ulcer debridement 2. Left foot incision and drainage 3. Left dorsal foot ulcer excision 4. Left foot bone biospy 5. Left foot hardware removal 6. Application of antibiotic beads-left foot Surgeon:: Dione Castro DPM Laboratory data on admission showed a white blood cell count 11,500; hemoglobin was 9.7 with hematocrit of 31.8. Blood chemistries showed sodium of 139 potassium of 4.2. BUN was 19 and creatinine 1.2. At the time of this assessment patient is lying comfortably in the bed after surgery and after receiving Dilaudid for her pain. She has eaten dinner without problems. <Usha Guerrero - 01/07/21 18:52> [facility] History 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: Reports:: Anxiety, Arrhythmia, Coronary Artery Disease, Diabetes Mellitus Type 2, Hyperlipidemia, Hypertension, Myocardial Infarction Denies:: Asthma, Cancer, Chronic Obstructive Pulmonary Disease (COPD), Diabetes Mellitus Type 1, Internal Pacemaker, MRSA, Seizures <Usha Guerrero 01/07/21 18:52> *Have you ever received a pneumonia vaccine?: Yes <Usha Guerrero 01/07/21 18:52> *Have you received a flu vaccine this season?: Yes <Usha Guerrero 01/07/21 18:52> Other 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: Reports: Arthritis, Fibromyalgia, Other. Denies: Blood Transfusion Reaction <Usha Guerrero 01/07/21 18:52> Anesthesia experience/problems:: nac <Usha Guerrero 01/07/21 18:52> Laterality Cases: Bilateral: Arthroscopy Knee, Arthroscopy Shoulder, Other <Usha Guerrero 01/07/21 18:52> Other Surgeries: Yes: Appendectomy, Cardiac Catheterization (03/26/2020), Cholecystectomy, Colonoscopy, Coronary Stent, Hysterectomy-Total, Other. 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
[2021-01-07 21:09] LABS: POC Glucose,Bedside 293 (70-110)
[2021-01-08 03:59] VITALS: BP 145/74; PULSE 80; RESP 18; TEMP 36.6; O2SAT 94
[2021-01-08 05:43] LABS: POC Glucose,Bedside 218 (70-110)
[2021-01-08 05:59] VITALS: BMI 44.1
[2021-01-08 06:55] LABS: Basophils % 0.1 % (0.1-2.0); Chloride 109 mmol/L (98-107); Eosinophils % 0.2 % (0.1-12.0); Hematocrit 28.7 % (37.0-47.0); Hemoglobin 8.8 g/dL (12.2-16.2); Lymphocytes # 1.2 K/mm3 (0.7-4.5); Lymphocytes % 10.3 % (10-50); Mean Corpuscular HGB Conc 30.6 g/dL (31.8-35.4); Mean Corpuscular Hemoglobin 25.8 pg (27.0-31.2); Mean Corpuscular Volume 84.4 fl (81-99); Mean Platelet Volume 8.7 fl (7.4-10.4); Monocytes # 0.7 K/mm3 (0.1-1.0); Monocytes % 5.5 % (1.7-9.3); Neutrophils # 10.1 K/mm3 (1.8-7.8); Neutrophils % 83.7 % (37.0-80.0); Platelet Count 353 K/mm3 (142-424); Red Cell Distribution Width 15.5 % (11.5-17.5); White Blood Count 12.1 K/mm3 (4.8-10.8)
[2021-01-08 06:56] LABS: Sodium 136 mmol/L (136-145)
--- NOTE | 2021-01-08 06:56 | PC.NURSE ---
shift summary pts lung sounds are clear with sats maintained 94% or above on room air with a rate ranging from 16-20. pt has a purewick in place. pt is alert and oriented X4 pt has complained of pain once and has received pain meds once that relieved the pain. pt denies any nausea vomiting or diarrhea.
[2021-01-08 06:58] LABS: Alanine Aminotransferase 8 U/L (12-78); Aspartate Amino Transferase 14 U/L (14-36); Blood Urea Nitrogen 25 mg/dl (7-17); Creatinine Clearance Estimated 47 mL/min (50-200); Estimated Glomerular Filt Rate 43 ml/min (>60); GFR (African American) 52 ML/MIN (>60)
[2021-01-08 06:59] LABS: Albumin Level 3.3 g/dl (3.5-5.0); Albumin/Globulin Ratio 0.8 (1.1-1.8); Alkaline Phosphatase 99 U/L (38-126); Bilirubin,Total 0.3 mg/dl (0.2-1.3); Calcium 9.2 mg/dl (8.4-10.2); Carbon Dioxide 21 mmol/L (22.0-30.0); Globulin 3.9 g/dL (1.3-3.2); Glucose 224 mg/dl (74-100); Total Protein,Serum 7.2 g/dl (6.3-8.2)
--- NOTE | 2021-01-08 07:44 | HMH.ORTHPN ---
Subjective Date: 01/08/21 Time: 07:45 Principal diagnosis: Left foot cellulitis, abscess Interval history: Patient is resting comfortably bed. She reports pain to the top of the left foot. She denies nausea vomiting, fever. She does report feeling very cold this morning. She denies shortness of breath and chest pain. PN: Obj Ex Vital signs: Temp Pulse Resp BP Pulse Ox 97.9 F 80 18 145/74 H 94 L 01/08/21 03:59 01/08/21 03:59 01/08/21 03:59 01/08/21 03:59 01/08/21 03:59 - Constitutional no acute distress - Routine HEENT Exam Head: Present: normocephalic Eye: Present: EOMI ENT: Present: mucous membranes moist - Routine Neck Exam Present: supple - Routine Respiratory Exam Absent: respiratory distress - Routine Abdominal Exam Present: soft, obese - Routine Extremities Exam Present: edema (left foot) - Detailed Lower Extremity Exam Top foot image: 1 - Motor function, light touch sensation, CFT at baseline. Left foot edema and erythema improved since yesterday. Sutures intact to left dorsal foot. Pain noted to 1st MPJ. No drainage or purulence expressed at bedside today. Dusky skin and bruising to dorsal incison. Bilateral subfirst metatarsal ulcers noted. Left subfirst metatarsal ulcer measures 0.2 x 0.2 x 0.1 cm. Wound base 100% granular with no periwound signs of infection noted plantarly. Right subfirst metatarsal ulcer measured 0.9x0.6x0.2cm. Wound base 100% granular. No deep signs of infection noted. Progress Note: A&P (1) Foot abscess, left Status: Acute (2) Blood culture positive for microorganism Status: Acute (3) Cellulitis of left foot Status: Acute (4) Diabetic ulcer of right foot due to type 2 diabetes mellitus Status: Acute (5) Type 2 diabetes mellitus with diabetic neuropathy, with long-term current use of insulin Status: Acute (6) Diabetic ulcer of left foot due to type 2 diabetes mellitus Status: Acute (7) Hx MRSA infection Status: Acute (8) Left foot infection Status: Acute (9) Retained orthopedic hardware Status: Acute (10) SIRS (systemic inflammatory response syndrome) Status: Acute (11) Charcot's joint of left foot Status: Chronic (12) Charcot's joint of right foot Status: Chronic Assessment and Plan for All Diagnoses:: Sx 01/07/21, s/p B/L foot (sub 1st metatarsal) ulcer debridement, left foot incision and drainage, dorsal foot ulcer excision, left foot bone biospy, left foot hardware removal, application of antibiotic beads-left foot POD #1 01/07/21, Intra-op specimens: Right sub 1st metatarsal/foot wound culture Left sub 1st metatarsal/foot wound culture Left proximal phalanx 1st toe bone culture, bone pathology Left 1st metatarsal bone culture, bone pathology Left midfoot bone culture, bone pathology Left hardware/screw culture Left foot cellulitis, abscess, b/l DM sul 1st metatarsal ulcers: Labs, 01/05/2021: wbc 17.0, esr >140, crp 265.9, creatinine 1.1, gfr 52, (-) DVT, (-) Covid 01/05/21: Blood cultures: GPC 01/07/21: Blood cultures: pending 01/07/21: wbc 11.5, glucose 146, creatinine 1.2, gfr 47 01/08/21: wbc 12.1, glucose 224, creatinine 1.3, gfr 43 *Bilateral foot dressing changed today. Right foot looks stable with no signs of infection. The left foot does have edema and erythema but improved since yesterday. I explained to the patient the hardware was removed from the first metatarsal and medial column. Antibiotic beads were packed into the area. I am concerned of osteomyelitis. Discussed taking the patient back to surgery tomorrow for a repeat incision and drainage and application of external fixation device to stabilize the Charcot midfoot. Patient understands if there is no bone infection, she will need antibiotics and local wound care. Patient understands that if she does have infection to the first metatarsal and will require partial
[2021-01-08 08:00] VITALS: BP 122/66; PULSE 81; RESP 17; TEMP 36.7; O2SAT 99
--- NOTE | 2021-01-08 08:57 | HMH.ANESII ---
[facility] Anesthesia Record Part II Discharge Time: 16:25 Destination: Medical Surgical Department PACU nurse assessment reviewed?: Yes Patient Condition:: Good Anesthesia Complications:: None Swallowing reflex intact?: Yes Cyanosis?: No Blood Pressure: 136/69 Pulse Rate: 85 Temperature: 97.8 F Mental Status: Alert & Oriented Pain level:: 0 Nausea and/or vomitting:: None Intake, IV Amount: 0
[2021-01-08 08:58] VITALS: BP 136/69; PULSE 85; TEMP 36.6
--- NOTE | 2021-01-08 09:24 | HMH.ACPN2 ---
<Usha Guerrero - Last Filed: 01/08/21 09:24> Internal Medicine - PN: Subj *Date: 01/08/21 *Time: 09:24 Interval history: She had a good night and slept. Dr. Castro has been in and completed dressing changes on bilateral feet. Patient states the plan is for her to return to surgery tomorrow for further debridement. She is nonweightbearing on the left foot but can bear weight on the right. Patient ate breakfast this morning without problems. She denies chest pain and shortness of breath. She is voiding QS. Bowels move about every 3 to 4 days at home. Have not moved here as yet. CBC reveals white blood cell count 12,100 with a hemoglobin of 8.8 hematocrit of 28.7. Exam Vital signs and Labs for Last 24 Hours: Temp Pulse Resp BP Pulse Ox 97.8 F 85 17 136/69 99 01/08/21 08:58 01/08/21 08:58 01/08/21 08:00 01/08/21 08:58 01/08/21 08:00 Laboratory Results - last 24 hr 01/07/21 10:54: WBC 11.5 H D, RBC 3.77 L, Hgb 9.7 L, Hct 31.8 L, MCV 84.5, MCH 25.9 L, MCHC 30.6 L, RDW 15.6, Plt Count 357 D, MPV 9.1, Neut % (Auto) 75.0, Lymph % (Auto) 14.4, Antelope % (Auto) 6.0, Eos % (Auto) 4.3, Baso % (Auto) 0.3, Neut # (Auto) 8.6 H, Lymph # (Auto) 1.7, Antelope # (Auto) 0.7, Eos # (Auto) 0.5 H, Baso # (Auto) 0.0 01/07/21 10:54: PT 10.5, INR 0.94, APTT 24.3 01/07/21 10:54: Sodium 139, Potassium 4.2 D, Chloride 108 H, Carbon Dioxide 23, Anion Gap 12.2, BUN 19 H, Creatinine 1.20 H, Estimated Creat Clear 51, Estimated GFR 47 L, Est GFR ( Amer) 57 L, Glucose 146 H, Calcium 9.7, Total Bilirubin 0.4, AST 18 D, ALT 10 L, Alkaline Phosphatase 121, Total Protein 8.5 H, Albumin 4.0, Globulin 4.5 H, Albumin/Globulin Ratio 0.9 L 01/07/21 10:54: Lactate 0.9 01/07/21 16:11: POC Glucose 164 H 01/07/21 20:58: POC Glucose 293 H 01/08/21 05:35: POC Glucose 218 H 01/08/21 06:20: WBC 12.1 H, RBC 3.40 L, Hgb 8.8 L, Hct 28.7 L, MCV 84.4, MCH 25.8 L, MCHC 30.6 L, RDW 15.5, Plt Count 353, MPV 8.7, Neut % (Auto) 83.7 H, Lymph % (Auto) 10.3, Antelope % (Auto) 5.5, Eos % (Auto) 0.2, Baso % (Auto) 0.1, Neut # (Auto) 10.1 H, Lymph # (Auto) 1.2, Antelope # (Auto) 0.7, Eos # (Auto) 0.0, Baso # (Auto) 0.0 01/08/21 06:20: Sodium 136, Potassium 5.0, Chloride 109 H, Carbon Dioxide 21 L, Anion Gap 11.0, BUN 25 H D, Creatinine 1.30 H, Estimated Creat Clear 47, Estimated GFR 43 L, Est GFR ( Amer) 52 L, Glucose 224 H D, Calcium 9.2, Total Bilirubin 0.3, AST 14, ALT 8 L, Alkaline Phosphatase 99, Total Protein 7.2, Albumin 3.3 L D, Globulin 3.9 H, Albumin/Globulin Ratio 0.8 L I & O for Last 24 hours: Intake & Output 01/05/21 01/06/21 01/07/21 01/08/21 11:59 11:59 11:59 11:59 Intake Total 1839 / 0 Balance 184 / 1840 Weight 270 lb 274 lb 15.721 oz Microbiology Reports for the Last 24 Hours: Microbiology 01/07/21 14:21 Foot,Left - Wound Gram Stain - Final 01/07/21 14:21 Foot,Left - Wound Wound Culture - Preliminary 01/07/21 14:50 Toe,Right Great Gram Stain - Final 01/07/21 14:21 Foot,Right - Wound Gram Stain - Final - Constitutional no acute distress Comments: Appears comfortable lying in the bed. - *Routine Respiratory Exam Present: CTA bilaterally (Anteriorly and posteriorly) - *Routine Cardiovascular Exam Present: RRR - *Routine Abdominal Exam Present: soft, normoactive bowel sounds. Absent: tenderness - *Routine Extremities Exam Present: edema (Left lower leg) Comments: Dressings on bilateral feet are clean and dry - *Routine Neurological Exam Present: alert, oriented X3 Assessment and Plan (1) Foot abscess, left Status: Acute Category: Medical Code(s): L02.612 - Cutaneous abscess of left foot (2) Blood culture positive for microorganism Status: Acute Category: Medical Code(s): R79.89 - Other specified abnormal findings of blood chemistry (3) Cellulitis of left foot Status: Acute Category: Medical Code(s): L03.116 - Cellulitis of left lower limb (4) Diabetic ulcer of ri
--- NOTE | 2021-01-08 11:05 | PC.NURSE ---
asked per GRETA Henry, Dough Cutter, to assess pt for PICC line insertion, should it become necessary. Patient states she has had 4 PICC line insertions in the past, none of which worked successfully for more than a few days; she states she has been told that she is not a candidate for a PICC line and futher indicates that she would not want me to attempt. Dough Cutter and primary nurse, GRETA Smith, made aware of patient's decision and wishes.
--- NOTE | 2021-01-08 11:18 | HMH.PHAVTE ---
[facility] Pharmacy VTE Monitoring - Patient Demographics Admission date: 01/07/21 Report Date: 01/08/21 Time: 11:18 Allergies/Adverse Reactions: Patient Allergies amoxicillin [AMOXICILLIN] Allergy (Unknown, Verified 12/25/20 14:10) Unknown allergy reaction codeine [CODEINE] Adverse Reaction (Mild, Verified 12/25/20 14:10) STOMACH CRAMPS morphine [MORPHINE] Adverse Reaction (Mild, Verified 12/25/20 14:10) STOMACH CRAMPS oxycodone [From Percocet] Adverse Reaction (Mild, Verified 12/25/20 14:10) STOMACH CRAMPS Height: 1.68 m Weight: 124.73 kg Patient Problems: Current Active Problems SIRS (systemic inflammatory response syndrome) (Acute) Renal insufficiency (Acute) Blood culture positive for microorganism (Acute) Foot abscess, left (Acute) Charcot's joint of right foot (Chronic) Charcot's joint of left foot (Chronic) Cellulitis of left foot (Acute) Left foot infection (Acute) Hx MRSA infection (Acute) Diabetic ulcer of left foot due to type 2 diabetes mellitus (Acute) Diabetic ulcer of right foot due to type 2 diabetes mellitus (Acute) Type 2 diabetes mellitus with diabetic neuropathy, with long-term current use of insulin (Acute) Retained orthopedic hardware (Acute) - VTE Risk Labs: VTE Related Lab Results Hgb 8.8 g/dL (12.2-16.2) L 01/08/21 06:20 Hct 28.7 % (37.0-47.0) L 01/08/21 06:20 Plt Count 353 K/mm3 (142-424) 01/08/21 06:20 PT 10.5 seconds (9.4-11.8) 01/07/21 10:54 INR 0.94 (0.9-1.1) 01/07/21 10:54 APTT 24.3 seconds (23.6-34.0) 01/07/21 10:54 BUN 25 mg/dl (7-17) H D 01/08/21 06:20 Creatinine 1.30 mg/dl (0.52-1.04) H 01/08/21 06:20 Estimated Creat Clear 47 mL/min (50-200) 01/08/21 06:20 Was VTE Risk Assessment Performed: Yes VTE Score: 4 VTE Risk Level: Low Risk Clinical Trial Participant: No - Prophylaxis VTE Prophylaxis Ordered?: Yes Types of VTE Prophylaxis: IPCS Knee High, Pharmacological Pharmacologic Type: Enoxaparin
[2021-01-08 11:58] LABS: POC Glucose,Bedside 307 (70-110)
[2021-01-08 12:00] VITALS: BP 105/56; PULSE 82; RESP 19; TEMP 36.6; O2SAT 95
--- NOTE | 2021-01-08 12:12 | HMH.PHAINT ---
MEDICATION RECONCILIATION COMPLETED ON PATIENT USING EXTERNAL FILL HISTORY FROM PHARMACY, PATIENT'S OWN RX BOTTLES, AND DISCHARGE SUMMARY FROM RECENT ADMISSION. -MONA KIMBROUGHD
[2021-01-08 16:00] VITALS: BP 131/71; PULSE 76; RESP 17; TEMP 36.6; O2SAT 98
[2021-01-08 17:11] LABS: POC Glucose,Bedside 252 (70-110)
--- NOTE | 2021-01-08 19:46 | PC.NURSE ---
Pt alert and oriented and able to make needs known. Pain meds per mar and did receive x one dose of iv Dilaudid [address] Castro and stated it helped pain. She did tolerate well. CB in reach and VSS. BLE wrapped per Dr. Castro this am and are cdi.
[2021-01-08 20:00] VITALS: BP 99/53; PULSE 76; RESP 16; TEMP 36.7; O2SAT 98
[2021-01-08 21:48] LABS: POC Glucose,Bedside 192 (70-110)
[2021-01-09] VITALS (20 sets, daily range): BP systolic 109–153; BP diastolic 52–80; PULSE 71–86; RESP 12–20; TEMP 36.4–36.9; O2SAT 93–100; BMI 44.2
[2021-01-09 06:01] LABS: POC Glucose,Bedside 159 (70-110)
--- NOTE | 2021-01-09 06:44 | PC.NURSE ---
shift summary pts lung souns are clear with sats maintained 95% or above on room air with a rate ranging from 17-20. pt requested for pain meds twice and received pain meds per mar. pt is alert and oriented X4. pt has a dinh in place with clear yellow in color urine. pt denies any nausea, vomiting, or diarrhea.
--- NOTE | 2021-01-09 08:45 | HMH.GSCON ---
*Admission Date: 01/07/21 *Reason for consult:: Long-term intravenous access *History of present illness: Patient is a 50-year-old diabetic female who presented initially to the ER 01/05/2021 with complaint of the left foot blister and cellulitis. She was given a dose of vancomycin and discharged on Bactrim. Patient reports fevers yesterday and overall malaise. She states the redness has spread and gotten worse and reports pain to the left foot. Patient is well-known to the podiatry team and we have been treating her for bilateral subfirst metatarsal noninfected ulcers outpatient. The left dorsal foot blister/wound is new since her last appointment. She reports it started 01/04/2021. Patient had CT left foot in the ED which does show a cystic fluid collection. Patient has pending blood cultures which were growing GPC. Last hemoglobin A1c, 01/04/2021 7.1%. Patient will require apparently several weeks of intravenous antibiotics. Reportedly she is no longer a candidate for PICC line placement. Surgery was consulted. Review of Systems - Review of Systems Review of systems:: pertinent systems reviewed and negative unless documented below - *Neurologic Reports abnormal walking, Reports numbness, Denies abnormal hearing, Denies headache(s), Denies seizure-like activity [facility] History I have reviewed the patient's past medical history: Yes 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: Reports:: Anxiety, Arrhythmia, Coronary Artery Disease, Diabetes Mellitus Type 2, Hyperlipidemia, Hypertension, Myocardial Infarction Denies:: Asthma, Cancer, Chronic Obstructive Pulmonary Disease (COPD), Diabetes Mellitus Type 1, Internal Pacemaker, MRSA, Seizures *Have you ever received a pneumonia vaccine?: Yes *Have you received a flu vaccine this season?: Yes Other 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: Reports: Arthritis, Fibromyalgia, Other. Denies: Blood Transfusion Reaction Anesthesia experience/problems:: nac Laterality Cases: Bilateral: Arthroscopy Knee, Arthroscopy Shoulder, Other Other Surgeries: Yes: No Previous Surgery, Appendectomy, Cardiac Catheterization (03/26/2020), Cholecystectomy, Colonoscopy, Coronary Stent, Hysterectomy-Total, Other. 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) Housing: house Household Members: family, children *Travel in the last 8 weeks: None - Psychiatric History Pschychiatric History:: Reports:: Anxiety Family Hx:: Diabetes, Heart Attack Meds Home Medications Medication Instructions Recorded Confirmed Type Hydrocodone/Acetaminophen 1 each PO Q6H 02/03/19 01/07/21 History [Hydrocodone-Acetamin 10-325 mg] Aspirin 81 mg PO DAILY 04/08/19 01/07/21 History ezetimibe 10 mg tablet 10 mg PO DAILY tab 03/06/20 01/07/21 History duloxetine 60 mg capsule,delayed 60 mg PO BID 07/02/20 01/07/21 History release liraglutide 0.6 mg/0.1 mL (18 mg/3 1.8 mg SQ DAILY 30 Days #9 ml 09/17/20 01/07/21 History mL) subcutaneous pen injector dapagliflozin 10 mg tablet 10 mg PO DAILY tab 11/01/20 01/07/21 History insulin glargine 100 unit/mL (3 75 unit SQ HS ml 11/01/20 01/08/21 History mL) subcutaneous pen Trazodone HCl [Desyrel 50mg tablet] 50 - 100 mg PO HS 11/18/20 01/08/21 History Tramadol HCl [Ultram 50mg 50 mg PO Q6HP PRN tab 11/23/20 01/07/21 Rx tablet] Isosorbide Mononitrate [Imdur 60mg 60 mg PO DAILY 12/14/20 01/07/21 History ER tablet] Pregabalin [Lyrica 200mg Cap] 200 mg PO BID 12/14/20 01/07/21 History Metoprolol Tartrate [Lopressor 100 100 mg PO BID 30 Days #60 tab 12/17/20 01/07/21 Rx mg Tablets] Ascorbic Acid 500 mg PO QID 01/05/21 01/07/21 History Ergocalciferol (Vitamin D2) 50,000 unit PO WEEKLY 01/05/21 01/07/21 History
[2021-01-09 08:47] LABS: C-Reactive Protein 57.1 mg/L (0-4)
[2021-01-09 08:50] LABS: Basophils # 0.1 K/mm3 (0-0.2); Basophils % 0.7 % (0.1-2.0); Eosinophils # 0.3 K/mm3 (0.0-0.4); Eosinophils % 3.5 % (0.1-12.0); Hematocrit 27.6 % (37.0-47.0); Hemoglobin 8.4 g/dL (12.2-16.2); Lymphocytes # 3.3 K/mm3 (0.7-4.5); Lymphocytes % 36.5 % (10-50); Mean Corpuscular HGB Conc 30.4 g/dL (31.8-35.4); Mean Corpuscular Hemoglobin 25.8 pg (27.0-31.2); Mean Corpuscular Volume 84.9 fl (81-99); Mean Platelet Volume 8.2 fl (7.4-10.4); Monocytes # 0.6 K/mm3 (0.1-1.0); Monocytes % 6.9 % (1.7-9.3); Neutrophils # 4.7 K/mm3 (1.8-7.8); Neutrophils % 52.4 % (37.0-80.0); Platelet Count 348 K/mm3 (142-424); Red Blood Count 3.25 M/mm3 (4.20-5.40); Red Cell Distribution Width 15.7 % (11.5-17.5); White Blood Count 8.9 K/mm3 (4.8-10.8)
--- NOTE | 2021-01-09 09:15 | HMH.ACPN2 ---
Internal Medicine - PN: Subj *Date: 01/09/21 *Time: 09:15 Interval history: Pt with no new complaints today. Exam Vital signs and Labs for Last 24 Hours: Temp Pulse Resp BP Pulse Ox 97.8 F 71 18 131/77 97 01/09/21 08:00 01/09/21 08:00 01/09/21 08:00 01/09/21 08:00 01/09/21 08:00 Laboratory Results - last 24 hr 01/08/21 11:40: POC Glucose 307 H* 01/08/21 16:19: POC Glucose 252 H 01/08/21 20:37: POC Glucose 192 H 01/09/21 05:50: POC Glucose 159 H 01/09/21 08:14: WBC 8.9 D, RBC 3.25 L, Hgb 8.4 L, Hct 27.6 L, MCV 84.9, MCH 25.8 L, MCHC 30.4 L, RDW 15.7, Plt Count 348, MPV 8.2, Neut % (Auto) 52.4, Lymph % (Auto) 36.5, [place] % (Auto) 6.9, Eos % (Auto) 3.5, Baso % (Auto) 0.7, Neut # (Auto) 4.7, Lymph # (Auto) 3.3, [place] # (Auto) 0.6, Eos # (Auto) 0.3, Baso # (Auto) 0.1 01/09/21 08:14: C-Reactive Protein 57.1 H Vital Signs - 24 hr 01/08/21 12:00 01/08/21 16:00 01/08/21 20:00 Temperature 97.9 F 97.9 F 98.0 F Pulse Rate [Left Radial] 82 76 76 Respiratory Rate 19 17 16 Blood Pressure [Right Arm] 105/56 L 131/71 99/53 L 02 Sat by Pulse Oximetry 95 98 98 01/09/21 00:00 01/09/21 04:00 01/09/21 08:00 Temperature 97.9 F 98.0 F 97.8 F Pulse Rate [Left Radial] 73 74 71 Respiratory Rate 18 17 18 Blood Pressure [Right Arm] 115/52 L 109/68 L 131/77 02 Sat by Pulse Oximetry 97 99 97 I & O for Last 24 hours: Intake & Output 01/06/21 01/07/21 01/08/21 01/09/21 23:59 23:59 23:59 23:59 Intake Total 1480 / 1600 1370 / 1370 0 / 0 Output Total 250 / 250 Balance 1480 / 1600 1370 / 1120 -250 / -250 Weight 275 lb 274 lb 15.721 oz Microbiology Reports for the Last 24 Hours: Microbiology 01/07/21 15:25 Foot,Left - Wound Surgical Biopsy Culture - Preliminary NO GROWTH AFTER 24 HOURS 01/07/21 15:17 Toe,Left Great Surgical Biopsy Culture - Preliminary NO GROWTH AFTER 24 HOURS 01/07/21 15:04 Toe,Left Great Surgical Biopsy Culture - Preliminary NO GROWTH AFTER 24 HOURS 01/07/21 14:50 Toe,Right Great Gram Stain - Final 01/07/21 14:50 Toe,Right Great Wound Culture - Preliminary NO GROWTH AFTER 24 HOURS 01/07/21 14:21 Foot,Right - Wound Gram Stain - Final 01/07/21 14:21 Foot,Right - Wound Wound Culture - Preliminary NO GROWTH AFTER 24 HOURS 01/07/21 14:21 Foot,Left - Wound Gram Stain - Final 01/07/21 14:21 Foot,Left - Wound Wound Culture - Preliminary - Constitutional no acute distress - *Routine Respiratory Exam Present: CTA bilaterally - *Routine Cardiovascular Exam Present: RRR Assessment and Plan (1) Foot abscess, left Status: Acute Category: Medical Code(s): L02.612 - Cutaneous abscess of left foot (2) Blood culture positive for microorganism Status: Acute Category: Medical Code(s): R79.89 - Other specified abnormal findings of blood chemistry (3) Cellulitis of left foot Status: Acute Category: Medical Code(s): L03.116 - Cellulitis of left lower limb (4) Diabetic ulcer of right foot due to type 2 diabetes mellitus Status: Acute Category: Medical Code(s): E11.621 - Type 2 diabetes mellitus with foot ulcer; L97.519 - Non-pressure chronic ulcer of other part of right foot with unspecified severity (5) Type 2 diabetes mellitus with diabetic neuropathy, with long-term current use of insulin Status: Acute Category: Medical Code(s): E11.40 - Type 2 diabetes mellitus with diabetic neuropathy, unspecified; Z79.4 - terminal operator (current) use of insulin (6) Diabetic ulcer of left foot due to type 2 diabetes mellitus Status: Acute Category: Medical Code(s): E11.621 - Type 2 diabetes mellitus with foot ulcer; L97.529 - Non-pressure chronic ulcer of other part of left foot with unspecified severity (7) Hx MRSA infection Status: Acute Category: Medical Code(s): Z86.14 - Personal history of
--- NOTE | 2021-01-09 09:30 | PC.NURSE ---
pt to surgery at 09.
[2021-01-09 09:51] LABS: Erythrocyte Sedimentation Rate > 140 mm/hr (0-30)
--- NOTE | 2021-01-09 11:48 | HMH.OPNOTE ---
Date of procedure: 01/09/21 Pre-op Diagnosis:: Need for long-term intravenous access for IV antibiotics Post-op Diagnosis:: Same Procedure performed:: Placement of 8 Bhutanese single-lumen closed and (Groshong) tunneled catheter in right subclavian vein Surgeon:: Jeet Ferraro MD RECONCILIATION MACHINE OPERATOR:: Manjit Womack Anesthesia: LMA Estimated blood loss (mL): 5 Clinical Note:: Patient is a 50-year-old female with significant diabetic foot infection requiring long-term intravenous antibiotics. She was evaluated by PICC nurses and found to be not a candidate for PICC line. Surgical consultation was obtained. Given the fact that the patient requires several weeks of intravenous antibiotics plan was made for Groshong catheter placement Operative findings:: No unusual anatomy Operative note:: Patient was taken to the operating room. She was positioned in a supine position. General anesthesia was induced via LMA. Bilateral upper chest and neck area were prepped and draped in the standard surgical fashion. She was positioned in Trendelenburg position. Attention was first turned to the left side. Local anesthetic was infiltrated. An 18-gauge catheter was inserted near the deltopectoral groove and manipulated posterior to the clavicle. There was some return of venous blood but this was tenuous. Attempt was made to thread guidewire but it would not thread. Needle was repositioned several times and a couple of additional sticks were performed without good successful cannulation of the left subclavian vein. Therefore plan was made to turn attention to the right side. In a similar fashion the right subclavian vein was cannulated. There was return of venous blood. Guidewire was inserted. Fluoroscopy was used to confirm good positioning. Dilator with breakaway sheath was then inserted over the guidewire and subcutaneous tissues were dilated. Catheter was then inserted. Fluoroscopy was used to position the tip of the catheter near the atriocaval junction. The catheter was then tunneled subcutaneously to exit at a separate site from the skin. However, upon extending the incision for the exit site the catheter sustained unavoidable damage. Catheter was then removed. New kit was brought onto the field. Once again the right subclavian vein was cannulated with 18-gauge needle. There was return of venous flow. Guidewire was inserted. Subcutaneous tissues were dilated with dilator and breakaway sheath. The dilator and guidewire were removed. 8 Bhutanese single-lumen Groshong catheter was inserted through the breakaway sheath which was then removed. Catheter was tunneled subcutaneously to exit at a separate site from the previous attempt. Once again fluoroscopy was used to confirm good position of the tip of the catheter near the atriocaval junction. Catheter was cut to the appropriate length. Catheter infusion device was secured. It flushed with saline and aspirated without difficulty. It was then flushed with heparinized saline. The butterfly device was secured to the catheter near the exit site and butterfly device was secured to the skin with 3-0 nylon sutures. The small incision at the subclavian insertion site was closed with a 4-0 Monocryl subcuticular suture. Clean dry sterile dressing was applied. Condition: stable Disposition: other Complications:: None immediately apparent
--- NOTE | 2021-01-09 12:18 | SUR.OPER ---
1040- pt positioned by lane lowery for groshong placment. assisted by eden williamson rn, lester lópez rn, and jasmyne mcbride crna. pt supine with bilateral arms tucked with blanket and shoulder roll under shoulders. 1200- pt positioned by eden lazo for left orif and i&d. assisted by sam guerrero crna, eden williamson rn, sam garrido rn, ashok monique
--- NOTE | 2021-01-09 12:25 | SUR.OPER ---
1213- timeout for clifton case
--- NOTE | 2021-01-09 13:51 | XR_ITS ---
PROCEDURE: XR CHEST PORTABLE CLINICAL HISTORY: in pacu for groshong placement COMPARISON: CR XR CHEST PORTABLE from 11/18/2020 CR XR CHEST PORTABLE from 12/13/2020 CR XR CHEST AP from 01/09/2021 FINDINGS: Status post right subclavian Groshong catheter placement. The tip is in the region the SVC. No evidence of pneumothorax. Lungs are clear. Unremarkable cardiovascular structures. No acute bony abnormalities. IMPRESSION: Status post right subclavian Groshong catheter placement as described above Dictated by: Hemal Pedersen MD 01/09/2021 16:18 Hemal Pedersen MD in OV 01/09/2021 16:18
--- NOTE | 2021-01-09 13:59 | PC.NURSE ---
Pt continues to be off floor at this time in surgery.
--- NOTE | 2021-01-09 14:01 | XR_ITS ---
PROCEDURE: XR ANKLE LT 2V CLINICAL INDICATION: EXTERNAL FIXATOR APPLICATION IN OR COMPARISON: CR XR ANKLE WT BEARING LT MIN 3V from 02/07/2020 CR XR ANKLE WT BEARING LT MIN 3V from 05/04/2020 CR XR ANKLE WT BEARING RT MIN 3V from 07/27/2020 CR XR ANKLE WT BEARING LT MIN 3V from 07/27/2020 CR XR FOOT LT MIN 3V from 01/07/2021 FINDINGS: Fluoroscopy time: 44 seconds External fixator was applied with limited images showing the fixator at the mid tibial area and calcaneus IMPRESSION: Status post external fixator placement with C-arm guidance Dictated by: Hemal Pedersen MD 01/09/2021 14:15 Hemal Pedersen MD in OV 01/09/2021 14:15
--- NOTE | 2021-01-09 14:04 | XR_ITS ---
PROCEDURE: XR CHEST AP CLINICAL HISTORY: DEEP LINE PLACEMENT IN OR COMPARISON: CR XR CHEST PORTABLE from 10/28/2019 CR XR CHEST PORTABLE from 11/18/2020 CR XR CHEST PORTABLE from 12/13/2020 FINDINGS: Fluoroscopy time: 1 minutes and 22 seconds. Single image submitted with the C-arm demonstrates central line present from right subclavian approach with tip in the region the SVC. IMPRESSION: Status post central line placement with C-arm guidance Dictated by: Hemal Pedersen MD 01/09/2021 14:13 Hemal Pedersen MD in OV 01/09/2021 14:13
--- NOTE | 2021-01-09 14:15 | HMH.ANESI ---
[facility] Anesthesia Record Part I Intake, IV Amount: 1,500 Estimated blood loss (mL): 0 Urine output (mL): 0 Blood Pressure: 141/72 SaO2: 98 Pulse Rate: 77 Respiratory Rate: 12 Temperature: 98 F Patient is:: Awake, Stable Stable to PACU at:: 14:10
[2021-01-09 14:30] LABS: POC Glucose,Bedside 128 (70-110)
--- NOTE | 2021-01-09 14:30 | XR_ITS ---
PROCEDURE: XR FOOT LT MIN 3V CLINICAL INDICATION: I D left foot with external fixator COMPARISON: CR XR FOOT LT MIN 3V from 11/22/2020 CR XR FOOT RT MIN 3V from 01/07/2021 CR XR FOOT LT 2V from 01/07/2021 CR XR FOOT LT MIN 3V from 01/07/2021 FINDINGS: Status post placement of external fixator. The distal portion the fixators transfixed by a screw through the calcaneus. Skin clips are present along the dorsal and medial aspect of the foot. A track is present in the 1st metatarsal from recently removed lag screw. Antibiotic beads are present in this region and along the medial aspect the foot. Much of the talus calcaneus and navicular are obscured by the overlying external fixator on the lateral view. There is diffuse osteopenia. There has been prior talocalcaneal and calcaneocuboid fusion IMPRESSION: Postsurgical changes as described above. Dictated by: Hemal Pedersen MD 01/09/2021 15:51 Hemal Pedersen MD in OV 01/09/2021 15:51
--- NOTE | 2021-01-09 14:34 | XR_ITS ---
PROCEDURE: XR ANKLE LT MIN 3V CLINICAL INDICATION: external fixator COMPARISON: CR XR ANKLE WT BEARING LT MIN 3V from 05/04/2020 CR XR ANKLE WT BEARING RT MIN 3V from 07/27/2020 CR XR ANKLE WT BEARING LT MIN 3V from 07/27/2020 CR XR ANKLE LT 2V from 01/09/2021 FINDINGS: Status post external fixator placement. Three screws are present within the mid tibia and a screw in the calcaneus with good alignment. IMPRESSION: Status post external fixator placement Dictated by: Hemal Pedersen MD 01/09/2021 16:15 Hemal Pedersen MD in OV 01/09/2021 16:15
--- NOTE | 2021-01-09 14:34 | HMH.OPNOTE ---
Date of procedure: 01/09/21 Pre-op Diagnosis:: 1. Right DM sub 1st metatarsal ulcer 2. Left DM sub 1st metatarsal ulcer 3. Left foot infection, cellulitis 4. S/p left foot I&D, ulcer excision, bone biospy, application of abx beads Post-op Diagnosis:: Same Procedure performed:: 1. Left foot suture removal 2. Left foot incision and drainage 3. Left foot wound debridement 4. Left foot 1st metatarsal bone biopsy 5. Application of antibiotic beads 6. Partial delayed primary closure, application of Integra wound graft 7. Application of external fixation device Surgeon:: Dione Castro DPM Peanut Picker(s):: Maryse Wyatt Anesthesia: GETA, regional (Left popliteal nerve block) Estimated blood loss (mL): 30 Clinical Note:: Patient is a 50-year-old diabetic female who presented initially to the ER 01/05/2021 with complaint of the left foot blister and cellulitis. She was given a dose of vancomycin and discharged on Bactrim. Patient returned to the hospital and was admitted 01/07/2021 after complaints of fever and malaise. She had surgery that same day: 01/07/21, s/p B/L foot (sub 1st metatarsal) ulcer debridement, left foot incision and drainage, dorsal foot ulcer excision, left foot bone biospy, left foot hardware removal, application of antibiotic beads-left foot. We discussed conservative versus surgical treatment options. Conservative treatment options include local wound care, oral and IV antibiotics, change in shoe wear, taping/padding, and off-loading. We discussed surgical intervention for incision and drainage of the left foot with antibiotic bead application and application of external fixation device to stabilize the Charcot. Patient understands that there is a chance that the foot may change shape after surgery. Patient also understands that they could have wound healing complications including delayed healing and infection. We discussed that if the wound does not heal, it is possible that they may need a more proximal amputation and could result in further loss of digits, loss of partial foot or loss of leg. We discussed the risks and benefits in great detail. Other surgical risks include: prolonged pain and swelling, further infection requiring oral or IV antibiotics, delay in healing of soft tissue or bone, nerve or blood vessel damage, CRPS/RSD, DVT, anesthesia complications, and even . All questions answered. Patient verbalized understanding. Consent obtained. Operative findings:: Bilateral subfirst metatarsal ulcers noted. Right subfirst metatarsal ulcer measured 0.6x0.5x0.1cm. Wound base 100% granular. No deep signs of infection noted. Left subfirst metatarsal ulcer measures 0.2 x 0.2 x 0.1 cm. Wound base 100% granular with no periwound signs of infection noted plantarly. Left dorsal foot incision with sutures clean dry and intact. The skin was dusky with some skin sloughing and early necrotic changes over the first MPJ. No deep purulence or infection noted. First metatarsal head evaluated. No purulence malodor or drainage. New bone cultures and pathology from the first metatarsal. The midfoot was reevaluated and no new signs of infection. Cortical erosions and soft crumbly bone noted to the first metatarsal head. Concern of deep bone infection that extends through the prior medial column/midfoot fusion. TN joint bone soft, degenerative. Difficult to determine if Charcot or osteomyelitis process, bone cultures and open bone biospies performed so far are negative. Operative note:: On this date and time the patient was deemed an appropriate surgical candidate. With informed consent time patient was transferred from the preoperative holding area to the operating theater after a left regional popliteal block. She was placed on table in a normal supine position. General anesthesia induced. The right foot wound was evaluated and a new dressing was applied. No debridement performed. Left lower extremities prepped and draped in normal steril
[2021-01-09 17:36] LABS: POC Glucose,Bedside 281 (70-110)
[2021-01-09 18:58] LABS: Vancomycin,Trough 13.2 ug/mL (5.0-10.0)
--- NOTE | 2021-01-09 19:59 | PC.NURSE ---
Pt alert and oriented x 4. RR even and unlabored. Pain meds given per jan. NAD. CB in reach. Dsgs to ble cdi. FS achs and ssi per jan. Lungs cta. NAD. Report given.
[2021-01-10] VITALS (29 sets, daily range): BP systolic 81–164; BP diastolic 40–88; PULSE 69–82; RESP 16–20; TEMP 36.6–37.7; O2SAT 93–97; BMI 46.1
--- NOTE | 2021-01-10 03:20 | PC.NURSE ---
Pt A&O x4 and has slept well through the night. c/o pain in left foot, [place] given per MAR with desired effects. Lungs CTA, on RA. BLE drsgs c/d/i. Central line drsg c/d/i. VSS, call light in reach, no concerns at this time.
[2021-01-10 05:59] LABS: POC Glucose,Bedside 321 (70-110)
[2021-01-10 06:53] LABS: Basophils % 0.3 % (0.1-2.0); Eosinophils # 0.1 K/mm3 (0.0-0.4); Eosinophils % 0.5 % (0.1-12.0); Hematocrit 27.4 % (37.0-47.0); Hemoglobin 8.2 g/dL (12.2-16.2); Lymphocytes # 1.9 K/mm3 (0.7-4.5); Lymphocytes % 15.6 % (10-50); Mean Corpuscular HGB Conc 29.9 g/dL (31.8-35.4); Mean Corpuscular Hemoglobin 25.8 pg (27.0-31.2); Mean Corpuscular Volume 86.4 fl (81-99); Mean Platelet Volume 8.2 fl (7.4-10.4); Monocytes # 0.8 K/mm3 (0.1-1.0); Monocytes % 6.7 % (1.7-9.3); Neutrophils # 9.3 K/mm3 (1.8-7.8); Platelet Count 369 K/mm3 (142-424); Red Blood Count 3.17 M/mm3 (4.20-5.40); Red Cell Distribution Width 15.8 % (11.5-17.5); White Blood Count 12.1 K/mm3 (4.8-10.8)
[2021-01-10 07:08] LABS: Chloride 113 mmol/L (98-107); Sodium 137 mmol/L (136-145)
[2021-01-10 07:09] LABS: Potassium 5.1 mmoL/L (3.5-5.1)
[2021-01-10 07:11] LABS: Alanine Aminotransferase 10 U/L (12-78); Albumin Level 3.2 g/dl (3.5-5.0); Albumin/Globulin Ratio 0.9 (1.1-1.8); Alkaline Phosphatase 89 U/L (38-126); Anion Gap 8.1 mEq/L (5-15); Aspartate Amino Transferase 15 U/L (14-36); Bilirubin,Total 0.2 mg/dl (0.2-1.3); Blood Urea Nitrogen 28 mg/dl (7-17); Carbon Dioxide 21 mmol/L (22.0-30.0); Creatinine Clearance Estimated 51 mL/min (50-200); Estimated Glomerular Filt Rate 47 ml/min (>60); GFR (African American) 57 ML/MIN (>60); Globulin 3.7 g/dL (1.3-3.2); Total Protein,Serum 6.9 g/dl (6.3-8.2)
[2021-01-10 07:12] LABS: Calcium 9.1 mg/dl (8.4-10.2); Glucose 289 mg/dl (74-100)
[2021-01-10 07:18] LABS: C-Reactive Protein 41.5 mg/L (0-4)
[2021-01-10 07:35] LABS: Erythrocyte Sedimentation Rate > 140 mm/hr (0-30)
--- NOTE | 2021-01-10 08:21 | HMH.ORTHPN ---
Subjective Date: 01/10/21 <Shagufta Bustos - 01/10/21 08:43> Time: 08:21 <Shagufta Bustos - 01/10/21 08:43> Principal diagnosis: Left foot cellulitis, abscess <Shagufta Bustos - 01/10/21 08:43> Interval history: Patient is doing very well this morning she actually looks a little more rested than she has been last couple days. The dressing to her right lower extremity was cleaned and redressed this morning with Betadine and dry 4 x 4 Curlex, Cristian wrap. Patient's left lower extremity has delta frame in place dressings were changed this morning graft is intact Xeroform dry sterile gauze Curlex and Cristian wrap reapplied to the site. Patient had cultures from her 1st MPJ that did result and is growing some GPC discussed with the patient that she could have her breakfast will make her n.p.o. after breakfast pending results of the upcoming cultures as they finalize that she may need further surgery this afternoon. We will discuss more detail with the patient this afternoon once we have more results finalized from the cultures that was taken. We will allow the patient some time to process the information that was given to her. <Shagufta Bustos - 01/10/21 08:43> PN: Obj Ex Vital signs: Temp Pulse Resp BP Pulse Ox 98.1 F 69 20 163/76 H 96 01/10/21 07:54 01/10/21 07:54 01/10/21 07:54 01/10/21 07:54 01/10/21 07:54 <Dione Castro - 01/10/21 09:26> Temp Pulse Resp BP Pulse Ox 98.1 F 69 20 163/76 H 96 01/10/21 07:54 01/10/21 07:54 01/10/21 07:54 01/10/21 07:54 01/10/21 07:54 <Shagufta Bustos - 01/10/21 08:43> - Constitutional no acute distress, obese <Shagufta Bustos - 01/10/21 08:43> - Routine HEENT Exam Head: Present: normocephalic <Shagufta Bustos 01/10/21 08:43> Eye: Present: PERRL <Shagufta Bustos 01/10/21 08:43> ENT: Present: mucous membranes moist <Shagufta Bustos 01/10/21 08:43> - Routine Neck Exam Present: full ROM, trachea midline <Shagufta Bustos 01/10/21 08:43> - Routine Chest/Breast/Axilla Exam Chest wall: Absent: tenderness <Shagufta Bustos 01/10/21 08:43> - Routine Respiratory Exam Absent: accessory muscle use, respiratory distress <Shagufta Bustos 01/10/21 08:43> - Routine Cardiovascular Exam Present: RRR <Shagufta Bustos 01/10/21 08:43> - Routine Abdominal Exam Present: soft <Shagufta Bustos 01/10/21 08:43> - Routine Extremities Exam Present: pulses intact, normal capillary refill. Absent: calf tenderness <Shagufta Bustos 01/10/21 08:43> Comments: Right sub 1st ulcer, no drainage noted no erythema no sign of infection noted. Area was cleaned and debrided this morning measures 0.2 x 0.2 x 0 cm. Betadine soaked gauze dry 4 x 4 Feng and Cristian wrap applied. Left lower extremity extremity delta exfix in place, graft intact, dressing changed and reapplied. <Shagufta Bustos 01/10/21 08:43> - Detailed Lower Extremity Exam Leg image: 1 - External fixator device intact in place, graft to the left lower extremity in place. New Xeroform Betadine gauze dry 4 x 4 Feng and Cristian wrap reapplied. <Shagufta Bustos 01/10/21 08:43> Bottom foot image: 1 - Right subfirst diabetic ulcer no drainage noted today dry and intact measures 0.2 x 0.2 x 0 cm. Betadine gauze dressing reapplied this morning. <Shagufta Bustos 01/10/21 08:43> - Routine Back/Spine/Pelvis Exam Back/Spine: Present: full ROM <Shagufta Bustos 01/10/21 08:43> - Routine Skin Exam Present: wounds <Shagufta Bustos 01/10/21 08:43> - Routine Neurological Exam Present: oriented X3, vision grossly intact, hearing grossly intact, normal speech <Shagufta Bustos 01/10/21 08:43> - Routine Psychiatric Exam Present: normal affect, cooperative <Shagufta Bustos 01/10/21 08:43> Progress Note: A&P (1) Foot
--- NOTE | 2021-01-10 08:35 | HMH.PHACONS ---
- Pharmacy Consult Date: 01/10/21 Time: 08:36 Referring provider: DR. INGRAM Reason for Consult:: VANCOMYCIN TROUGH LEVEL Allergies and ADEs:: Allergies Allergy/AdvReac Type Severity Reaction Status Date / Time amoxicillin [AMOXICILLIN] Allergy Unknown Unknown Verified 12/25/20 14:10 allergy reaction codeine [CODEINE] AdvReac Mild STOMACH Verified 12/25/20 14:10 CRAMPS morphine [MORPHINE] AdvReac Mild STOMACH Verified 12/25/20 14:10 CRAMPS oxycodone [From Percocet] AdvReac Mild STOMACH Verified 12/25/20 14:10 CRAMPS Home Medications:: Home Medications Medication Instructions Recorded Confirmed Type Hydrocodone/Acetaminophen 1 each PO Q6H 02/03/19 01/07/21 History [Hydrocodone-Acetamin 10-325 mg] Aspirin 81 mg PO DAILY 04/08/19 01/07/21 History ezetimibe 10 mg tablet 10 mg PO DAILY tab 03/06/20 01/07/21 History duloxetine 60 mg capsule,delayed 60 mg PO BID 07/02/20 01/07/21 History release liraglutide 0.6 mg/0.1 mL (18 mg/3 1.8 mg SQ DAILY 30 Days #9 ml 09/17/20 01/07/21 History mL) subcutaneous pen injector dapagliflozin 10 mg tablet 10 mg PO DAILY tab 11/01/20 01/07/21 History insulin glargine 100 unit/mL (3 75 unit SQ HS ml 11/01/20 01/08/21 History mL) subcutaneous pen Trazodone HCl [Desyrel 50mg tablet] 50 - 100 mg PO HS 11/18/20 01/08/21 History Tramadol HCl [Ultram 50mg 50 mg PO Q6HP PRN tab 11/23/20 01/07/21 Rx tablet] Isosorbide Mononitrate [Imdur 60mg 60 mg PO DAILY 12/14/20 01/07/21 History ER tablet] Pregabalin [Lyrica 200mg Cap] 200 mg PO BID 12/14/20 01/07/21 History Metoprolol Tartrate [Lopressor 100 100 mg PO BID 30 Days #60 tab 12/17/20 01/07/21 Rx mg Tablets] Ascorbic Acid 500 mg PO QID 01/05/21 01/07/21 History Ergocalciferol (Vitamin D2) 50,000 unit PO WEEKLY 01/05/21 01/07/21 History [Vitamin D2] Spironolactone [Spironolactone 25 mg PO DAILY 01/05/21 01/07/21 History 25mg Tablet] Zinc Sulfate [Zinc-220] 220 mg PO DAILY 01/05/21 01/07/21 History Pravastatin Sodium [Pravachol] 40 mg PO HS 01/07/21 01/08/21 History Sulfamethoxazole/Trimethoprim 1 each PO BID 01/07/21 01/07/21 History [Bactrim DS tablet] ramipriL [Ramipril] 5 mg PO DAILY 01/07/21 01/07/21 History Furosemide [Furosemide 40MG tAB*] 40 mg PO DAILY 01/08/21 01/08/21 History Height: 1.68 m Weight: 130.181 kg Laboratory Results:: Laboratory Results - last 24 hr 01/09/21 08:14: WBC 8.9 D, RBC 3.25 L, Hgb 8.4 L, Hct 27.6 L, MCV 84.9, MCH 25.8 L, MCHC 30.4 L, RDW 15.7, Plt Count 348, MPV 8.2, Neut % (Auto) 52.4, Lymph % (Auto) 36.5, [place] % (Auto) 6.9, Eos % (Auto) 3.5, Baso % (Auto) 0.7, Neut # (Auto) 4.7, Lymph # (Auto) 3.3, [place] # (Auto) 0.6, Eos # (Auto) 0.3, Baso # (Auto) 0.1 01/09/21 08:14: ESR > 140 H 01/09/21 08:14: C-Reactive Protein 57.1 H 01/09/21 14:23: POC Glucose 128 H 01/09/21 17:05: Vancomycin Trough 13.2 H 01/09/21 17:22: POC Glucose 281 H 01/10/21 05:36: POC Glucose 321 H* 01/10/21 06:20: WBC 12.1 H D, RBC 3.17 L, Hgb 8.2 L, Hct 27.4 L, MCV 86.4, MCH 25.8 L, MCHC 29.9 L, RDW 15.8, Plt Count 369, MPV 8.2, Neut % (Auto) 77.0, Lymph % (Auto) 15.6, [place] % (Auto) 6.7, Eos % (Auto) 0.5, Baso % (Auto) 0.3, Neut # (Auto) 9.3 H, Lymph # (Auto) 1.9, [place] # (Auto) 0.8, Eos # (Auto) 0.1, Baso # (Auto) 0.0, ESR > 140 H 01/10/21 06:20: Sodium 137, Potassium 5.1, Chloride 113 H, Carbon Dioxide 21 L, Anion Gap 8.1, BUN 28 H, Creatinine 1.20 H, Estimated Creat Clear 51, Estimated GFR 47 L, Est GFR ( Amer) 57 L, Glucose 289 H, Calcium 9.1, Total Bilirubin 0.2, AST 15, ALT 10 L, Alkaline Phosphatase 89, C-Reactive Protein 41.5 H D, Total Protein 6.9, Albumin 3.2 L, Globulin 3.7 H, Albumin/Globulin Ratio 0.9 L 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: Reports:: Anxiety, Arrhythmia, Coronary Artery Disease, Diabetes Mellitus Type 2, Hyperlipidemia, Hypertension, Myocardial Infarction Denies:: Asthma, Cancer, Chronic Obstructive Pulmonary Disease (COPD), Diabetes Mellitus Type 1, Internal
--- NOTE | 2021-01-10 08:36 | HMH.ACPN2 ---
<Lisbeth Perez - Last Filed: 01/10/21 08:36> Internal Medicine - PN: Subj *Date: 01/10/21 *Time: 08:36 Interval history: Patient states she feels about the same today. She went into the OR yesterday for a left foot wound debridement and placement of antibiotics. One of her bone cultures is growing staph aureus, podiatry is waiting on the talus culture to see if it is also infected. Exam Vital signs and Labs for Last 24 Hours: Temp Pulse Resp BP Pulse Ox 98.1 F 69 20 163/76 H 96 01/10/21 07:54 01/10/21 07:54 01/10/21 07:54 01/10/21 07:54 01/10/21 07:54 Laboratory Results - last 24 hr 01/09/21 08:14: WBC 8.9 D, RBC 3.25 L, Hgb 8.4 L, Hct 27.6 L, MCV 84.9, MCH 25.8 L, MCHC 30.4 L, RDW 15.7, Plt Count 348, MPV 8.2, Neut % (Auto) 52.4, Lymph % (Auto) 36.5, [place] % (Auto) 6.9, Eos % (Auto) 3.5, Baso % (Auto) 0.7, Neut # (Auto) 4.7, Lymph # (Auto) 3.3, [place] # (Auto) 0.6, Eos # (Auto) 0.3, Baso # (Auto) 0.1 01/09/21 08:14: ESR > 140 H 01/09/21 08:14: C-Reactive Protein 57.1 H 01/09/21 14:23: POC Glucose 128 H 01/09/21 17:05: Vancomycin Trough 13.2 H 01/09/21 17:22: POC Glucose 281 H 01/10/21 05:36: POC Glucose 321 H* 01/10/21 06:20: WBC 12.1 H D, RBC 3.17 L, Hgb 8.2 L, Hct 27.4 L, MCV 86.4, MCH 25.8 L, MCHC 29.9 L, RDW 15.8, Plt Count 369, MPV 8.2, Neut % (Auto) 77.0, Lymph % (Auto) 15.6, [place] % (Auto) 6.7, Eos % (Auto) 0.5, Baso % (Auto) 0.3, Neut # (Auto) 9.3 H, Lymph # (Auto) 1.9, [place] # (Auto) 0.8, Eos # (Auto) 0.1, Baso # (Auto) 0.0, ESR > 140 H 01/10/21 06:20: Sodium 137, Potassium 5.1, Chloride 113 H, Carbon Dioxide 21 L, Anion Gap 8.1, BUN 28 H, Creatinine 1.20 H, Estimated Creat Clear 51, Estimated GFR 47 L, Est GFR ( Amer) 57 L, Glucose 289 H, Calcium 9.1, Total Bilirubin 0.2, AST 15, ALT 10 L, Alkaline Phosphatase 89, C-Reactive Protein 41.5 H D, Total Protein 6.9, Albumin 3.2 L, Globulin 3.7 H, Albumin/Globulin Ratio 0.9 L I & O for Last 24 hours: Intake & Output 01/07/21 01/08/21 01/09/21 01/10/21 11:59 11:59 11:59 11:59 Intake Total 1840 / 1840 1010 / 1010 2700 / 2700 Output Total 250 / 250 100 / 100 Balance 1840 / 1840 760 / 760 2600 / 2600 Weight 270 lb 274 lb 15.721 oz 287 lb Microbiology Reports for the Last 24 Hours: Microbiology 01/07/21 15:04 Foot,Left Miscellaneous Reference Culture - Preliminary Gram Positive Cocci 01/07/21 15:17 Toe,Left Great Gram Stain - Final 01/07/21 15:17 Toe,Left Great Surgical Biopsy Culture - Preliminary Gram Positive Cocci 01/07/21 15:25 Foot,Left - Wound Gram Stain - Final 01/07/21 15:25 Foot,Left - Wound Surgical Biopsy Culture - Preliminary 01/07/21 15:04 Toe,Left Great Gram Stain - Final 01/07/21 15:04 Toe,Left Great Surgical Biopsy Culture - Preliminary 01/07/21 14:21 Foot,Right - Wound Gram Stain - Final 01/07/21 14:21 Foot,Right - Wound Wound Culture - Preliminary Staphylococcus aureus 01/07/21 14:21 Foot,Left - Wound Gram Stain - Final 01/07/21 14:21 Foot,Left - Wound Wound Culture - Final Staphylococcus aureus 01/07/21 14:50 Toe,Right Great Gram Stain - Final 01/07/21 14:50 Toe,Right Great Wound Culture - Final Staphylococcus aureus 01/07/21 10:31 Blood Blood Culture - Preliminary NO GROWTH AFTER 48 HOURS 01/07/21 10:54 Blood Blood Culture - Preliminary NO GROWTH AFTER 48 HOURS - Constitutional no acute distress - *Routine Respiratory Exam Present: CTA bilaterally - *Routine Cardiovascular Exam Present: RRR - *Routine Abdominal Exam Present: soft, normoactive bowel sounds. Absent: tenderness - *Routine Extremities Exam Present: edema. Absent: cyanosis, clubbing - *Routine Skin Exam Present: warm. Absent: rash Comments: Left foot with hardware and dressing in plac
[2021-01-10 11:42] LABS: POC Glucose,Bedside 286 (70-110)
--- NOTE | 2021-01-10 14:51 | P.PN_ITS ---
[facility] Anesthesia Record Part II Discharge Time: 14:40 Destination: Medical Surgical Department PACU nurse assessment reviewed?: Yes Patient Condition:: Good Anesthesia Complications:: None Swallowing reflex intact?: Yes Cyanosis?: No Blood Pressure: 140/70 Pulse Rate: 76 Temperature: 98 F Mental Status: Alert & Oriented Pain level:: 0 Nausea and/or vomitting:: None Intake, IV Amount: 0
--- NOTE | 2021-01-10 17:10 | XR_ITS ---
PROCEDURE: XR FOOT LT 2V CLINICAL INDICATION: C-ARM USED TO EVALUATE LEFT FOOT IN OR, AMPUTATION COMPARISON: No exams were available for comparison FINDINGS: Fluoroscopy time: 9 seconds External fixator is in place. There has been transmetatarsal amputation with C-arm assistance. IMPRESSION: Status post trans tarsal amputation. Dictated by: Hemal Pedersen MD 01/11/2021 07:18 Hemal Pedersen MD in [place] 01/11/2021 07:18
--- NOTE | 2021-01-10 17:57 | HMH.ANESI ---
[facility] Anesthesia Record Part I Intake, IV Amount: 1,400 Estimated blood loss (mL): 200 Urine output (mL): 0 Blood Pressure: 92/57 SaO2: 93 Pulse Rate: 79 Respiratory Rate: 20 Temperature: 98.1 F Patient is:: Awake Stable to PACU at:: 17:58
--- NOTE | 2021-01-10 17:58 | XR_ITS ---
PROCEDURE: XR FOOT LT MIN 3V CLINICAL INDICATION: s/p left TMA Follow-up surgery COMPARISON: CR XR FOOT RT MIN 3V from 01/07/2021 CR XR FOOT LT 2V from 01/07/2021 CR XR FOOT LT MIN 3V from 01/07/2021 CR XR FOOT LT MIN 3V from 01/09/2021 FINDINGS: Limited images secondary to patient's inability to be properly positioned. There has been amputation at the level of the navicular and cuboid. Prior talocalcaneal fusion and calcaneocuboid fusion with screws present. There remains a screw part of the screw present within the talus from the navicular region. Skin clips are present. There remains good alignment. IMPRESSION: Status post trans tarsal amputation Dictated by: Hemal Pedersen MD 01/11/2021 06:54 Hemal Pedersen MD in [place] 01/11/2021 06:54
--- NOTE | 2021-01-10 17:58 | HMH.OPNOTE ---
Date of procedure: 01/10/21 Pre-op Diagnosis:: 1. Right DM sub 1st metatarsal ulcer 2. Left DM sub 1st metatarsal ulcer 3. Left foot infection, cellulitis 4. S/p left foot I&D, ulcer excision, bone biospy, application of abx beads, application of external fixation device Post-op Diagnosis:: Same Procedure performed:: 1. Left foot incision and drainage 2. Left foot deep wound debridement 3. Left foot partial amputation 4. Left delayed primary closure 5. Left foot rotational skin flap 6. Adjustment of external fixation device Surgeon:: Dione Castro DPM BASKET OPERATOR:: Pravin Rosario Anesthesia: GETA, local (25cc 0.5% marcaine plain) Estimated blood loss (mL): 100 Clinical Note:: Sx 01/09/21, s/p: left foot suture removal, foot incision and drainage, foot wound debridement, foot 1st metatarsal bone biopsy, application of antibiotic beads, partial delayed primary closure, melani of Integra wound graft, application of external fixation device and 01/07/21, s/p B/L foot (sub 1st metatarsal) ulcer debridement, left foot incision and drainage, dorsal foot ulcer excision, left foot bone biospy, left foot hardware removal, application of antibiotic beads-left foot. Bilateral foot dressing changed today. Right foot looks stable with no signs of infection. The left foot does have Integra graft overlying the medial column dorsally, intact with xiomara. No ascending cellulitis noted. External fixator intact through calcaneus and tibia. Swelling still noted but improved since surgery. Patient still reports pain to the left foot. We discussed the results of the wound and bone cultures in detail. I explained that the distal bone cultures are growing GPC and the hardware was infected. I explained that we will need to do a distal partial foot amputation. We discussed if proximal talus bone cultures grow bacteria, she is at high risk for below-knee amputation. In my opinion I do not think the patient will fare well with a BKA. Discussed doing the distal amputation today, try several weeks of IV antibiotics and when removing the external fixation device we can do repeat bone biopsies proximally. If at that point she needs a more proximal amputation, can make referral to orthopedics. All risks and benefits were discussed with the patient. Patient understands that there is a chance that the foot may change shape after surgery. Patient also understands that they could have wound healing complications including delayed healing and infection. We discussed that if the wound does not heal, it is possible that they may need a more proximal amputation and could result in further loss of digits, loss of partial foot or loss of leg. We discussed the risks and benefits in great detail. Other surgical risks include: prolonged pain and swelling, further infection requiring oral or IV antibiotics, delay in healing of soft tissue or bone, nerve or blood vessel damage, CRPS/RSD, DVT, anesthesia complications, and even . All questions answered. Patient verbalized understanding. Consent obtained. Operative findings:: Left subfirst metatarsal ulcer measures 0.2 x 0.2 x 0.1 cm. Wound base 100% granular with no periwound signs of infection noted plantarly. Left dorsal foot incision with sutures, graft and xiomara clean dry and intact. The plantar 1-3rd MPJ, metatarsal soft tissue had necrotic changes. There was yellowish drainage noted. Left 5th metatarsal soft and fractured. The 2-4th metatarsal were transected easily with bone rongeur, yellowish drainage, purulence noted from bones. 1st interspace had discolored tissue and clotted blood vessels. Cortical erosions and soft crumbly bone noted to the medial column bones. Overall the soft tissue was more necrotic and non-viable than would be expected, since wound debridement performed yesterday. Concern of deep bone infection that extends through the prior medial column/midfoot fusion. TN joint bone soft, degenerative. Difficult to determine if Charcot or osteo
[2021-01-10 18:08] LABS: POC Glucose,Bedside 239 (70-110)
[2021-01-10 18:26] LABS: Hematocrit 24.1 % (37.0-47.0)
[2021-01-10 18:29] LABS: Hemoglobin 7.2 g/dL (12.2-16.2)
--- NOTE | 2021-01-10 18:33 | PC.NURSE ---
1826-detailed report called to GRETA Alanis 1828-pt transported to med/surg 2nd floor room 212 via hospital bed per GRETA Arias and Edmundo Blandon KCSA. Pt stable upon discharge from PACU, reports pain easing some, vss, pt stable
--- NOTE | 2021-01-10 18:34 | SUR.PHASEI ---
180-notified DELMA Geronimo of pt's fsbs results of 239-no further orders given, will notify 2nd floor RN to medicate per sliding scale 180-lab at bedside drawing h/h 181-radiology at bedside 183-notified 2nd floor RN assuming care of patient and Dr. Chance at this time of critical h/h results, no further orders given at this time
--- NOTE | 2021-01-10 20:18 | PC.NURSE ---
PT IS BACK ON THE FLOOR FROM SURGERY. PCP WAS NOTIFIED ABOUT PT'S CRITICAL H&H. PCP ORDERED FOR PT TO BE TYPE AND SCREENED AND GIVEN 2 UNITS OF PRBC'S. PT WILL HAVE H&H CHECKED WITH MORNING LABS. PT HAS BEEN MEDICATED NEEDED FOR PAIN. GROSHONG NOTED TO THE RT CHEST. DRESSING WITH DEVICE NOTED TO THE LLE. MOSES WRAP DRESSING NOTED TO THE RIGHT FOOT. PT HAS BEEN ALERT AND ORIENTED X4. LUNG SOUNDS DIMINISHED. ABDOMEN SOFT/ NON TENDER WITH HYPOACTIVE BOWEL SOUNDS. PT STATED HER LAST BOWEL MOVEMENT WAS 3 DAYS AGO. VSS. WILL CONTINUE TO MONITOR.
[2021-01-10 20:32] LABS: POC Glucose,Bedside 355 (70-110)
[2021-01-11] VITALS (16 sets, daily range): BP systolic 86–135; BP diastolic 46–79; PULSE 70–83; RESP 16–18; TEMP 36.4–36.9; O2SAT 93–98; BMI 46.3
--- NOTE | 2021-01-11 04:09 | PC.NURSE ---
PATIENT A&O X4, LUNGS CLEAR, PULSES EQUAL. BLE: +1 PITTING EDEMA NOTED. PATIENT RECEIVED 2 UNITS OF PRBC. PATIENT TOLERATED ADMINISTRATION WELL. PATIENT HAD SEVERAL COMPLAINTS OF PAIN, THIS RN ADMINISTER DILAUDID PRESCRIBED. NO NEW CONCERNS NOTED.
[2021-01-11 06:00] LABS: POC Glucose,Bedside 225 (70-110)
[2021-01-11 07:05] LABS: Basophils % 0.3 % (0.1-2.0); Eosinophils # 0.1 K/mm3 (0.0-0.4); Eosinophils % 0.9 % (0.1-12.0); Hematocrit 28.3 % (37.0-47.0); Lymphocytes # 3.2 K/mm3 (0.7-4.5); Lymphocytes % 26.5 % (10-50); Mean Corpuscular HGB Conc 30.2 g/dL (31.8-35.4); Mean Corpuscular Hemoglobin 26.3 pg (27.0-31.2); Mean Corpuscular Volume 87.3 fl (81-99); Mean Platelet Volume 8.5 fl (7.4-10.4); Monocytes # 0.7 K/mm3 (0.1-1.0); Monocytes % 5.8 % (1.7-9.3); Neutrophils % 66.7 % (37.0-80.0); Platelet Count 344 K/mm3 (142-424); Red Blood Count 3.24 M/mm3 (4.20-5.40); Red Cell Distribution Width 16.2 % (11.5-17.5)
[2021-01-11 07:14] LABS: Chloride 111 mmol/L (98-107); Potassium 4.8 mmoL/L (3.5-5.1); Sodium 138 mmol/L (136-145)
[2021-01-11 07:17] LABS: Anion Gap 8.8 mEq/L (5-15); Blood Urea Nitrogen 25 mg/dl (7-17); Calcium 8.6 mg/dl (8.4-10.2); Carbon Dioxide 23 mmol/L (22.0-30.0); Creatinine Clearance Estimated 51 mL/min (50-200); Estimated Glomerular Filt Rate 47 ml/min (>60); GFR (African American) 57 ML/MIN (>60); Glucose 197 mg/dl (74-100)
[2021-01-11 07:25] LABS: C-Reactive Protein 23.1 mg/L (0-4)
--- NOTE | 2021-01-11 08:25 | HMH.ORTHPN ---
Subjective Date: 01/11/21 Time: 07:55 Principal diagnosis: Left foot cellulitis, abscess Interval history: Patient is resting comfortably. She denies pain to the right foot but reports some pain to the distal left foot. She is receiving p.o. and IV Dilaudid. Patient received 2 units of blood last night. She denies nausea vomiting, fever chills, shortness of breath chest pain, lightheadedness or dizziness. Overall looks comfortable and in relatively good spirits. PN: Obj Ex Vital signs: Temp Pulse Resp BP Pulse Ox 98.5 F 77 17 135/78 97 01/11/21 07:44 01/11/21 07:44 01/11/21 07:44 01/11/21 07:44 01/11/21 07:44 - Constitutional no acute distress - Routine HEENT Exam Head: Present: normocephalic Eye: Present: EOMI ENT: Present: mucous membranes moist - Routine Neck Exam Present: supple - Routine Chest/Breast/Axilla Exam Chest wall: Present: tenderness - Routine Respiratory Exam Absent: respiratory distress - Routine Cardiovascular Exam Present: RRR - Routine Abdominal Exam Present: obese - Routine Extremities Exam Present: pulses intact - Detailed Lower Extremity Exam Bottom foot image: 1 - Motor function, light touch sensation, CFT at baseline. Palpable pedal pulses. Right sub 1st metatarsal ulcer noted. Wound base 100% granular. Measues: 0.2x0.3x0.1cm. Left foot edema and erythema improved. Sutures and xiomara intact to left dorsal foot. Pain noted to distal tarsal amp site. Blood noted from 0.2x0.2cm opening medially. No drainage or purulence expressed at bedside today. Progress Note: A&P (1) Foot abscess, left Status: Acute (2) Blood culture positive for microorganism Status: Acute (3) Cellulitis of left foot Status: Acute (4) Diabetic ulcer of right foot due to type 2 diabetes mellitus Status: Acute (5) Type 2 diabetes mellitus with diabetic neuropathy, with long-term current use of insulin Status: Acute (6) Diabetic ulcer of left foot due to type 2 diabetes mellitus Status: Acute (7) Hx MRSA infection Status: Acute (8) Left foot infection Status: Acute (9) Retained orthopedic hardware Status: Acute (10) SIRS (systemic inflammatory response syndrome) Status: Acute (11) Charcot's joint of left foot Status: Chronic (12) Charcot's joint of right foot Status: Chronic Assessment and Plan for All Diagnoses:: Sx 01/10/21, s/p left foot incision and drainage, foot deep wound debridement, foot partial amputation, delayed primary closure, foot rotational skin flap, adjustment of external fixation device Sx 01/09/21, s/p: left foot suture removal, foot incision and drainage, foot wound debridement, foot 1st metatarsal bone biopsy, application of antibiotic beads, partial delayed primary closure, melani of Integra wound graft, application of external fixation device 01/07/21, s/p B/L foot (sub 1st metatarsal) ulcer debridement, left foot incision and drainage, dorsal foot ulcer excision, left foot bone biospy, left foot hardware removal, application of antibiotic beads-left foot. POD#1 Intra-op Specimens, 01/10/21: Left foot wound culture, left distal toes pathology: pending Left metatarsal bone culture, bone pathology: pending Left proximal foot bone culture: pending 01/09/21: Intra-op specimens: Left 1st metatarsal bone culture, bone pathology: pending 01/07/21, Intra-op specimens: Right sub 1st metatarsal/foot wound culture: GPC Left sub 1st metatarsal/foot wound culture: GPC/MSSA Left proximal phalanx 1st toe bone culture: GPC Left 1st metatarsal bone culture, bone pathology: gram stain GPC Left midfoot bone culture, bone pathology: pending Left hardware/screw culture: GPC Left foot cellulitis, abscess, b/l DM sul 1st metatarsal ulcers: Labs, 01/05/2021: wbc 17.0, esr >140, crp 265.9, creatinine 1.1, gfr 52, (-) DVT, (-) Covid 01/05/21: Blood cultures: GPC-MSSA 01/07/21
[2021-01-11 08:37] LABS: Erythrocyte Sedimentation Rate > 140 mm/hr (0-30)
--- NOTE | 2021-01-11 08:46 | HMH.ACPN2 ---
<Lisbeth Perez - Last Filed: 01/11/21 08:46> Internal Medicine - PN: Subj *Date: 01/11/21 *Time: 08:46 Interval history: The patient was taken to the OR yesterday for partial foot amputation. She has had quite a bit of pain throughout the night and has been receiving pain medication. She denies any other pain. She states she was able to get about 3 hours of sleep and she tolerated breakfast this morning. Exam Vital signs and Labs for Last 24 Hours: Temp Pulse Resp BP Pulse Ox 98.5 F 77 17 135/78 97 01/11/21 07:44 01/11/21 07:44 01/11/21 07:44 01/11/21 07:44 01/11/21 07:44 Laboratory Results - last 24 hr 01/10/21 11:35: POC Glucose 286 H 01/10/21 18:02: POC Glucose 239 H 01/10/21 18:10: Hgb 7.2 L*, Hct 24.1 L 01/10/21 19:21: Blood Type B Positive, Antibody Screen Negative, Crossmatch (AHG) See Detail 01/10/21 20:16: POC Glucose 355 H* 01/11/21 05:50: POC Glucose 225 H 01/11/21 06:35: WBC 12.0 H, RBC 3.24 L, Hct 28.3 L, MCV 87.3, MCH 26.3 L, MCHC 30.2 L, RDW 16.2, Plt Count 344, MPV 8.5, Neut % (Auto) 66.7, Lymph % (Auto) 26.5, Warrick % (Auto) 5.8, Eos % (Auto) 0.9, Baso % (Auto) 0.3, Neut # (Auto) 8.0 H, Lymph # (Auto) 3.2, Warrick # (Auto) 0.7, Eos # (Auto) 0.1, Baso # (Auto) 0.0, ESR > 140 H 01/11/21 06:35: C-Reactive Protein 23.1 H D 01/11/21 06:35: Sodium 138, Potassium 4.8, Chloride 111 H, Carbon Dioxide 23, Anion Gap 8.8, BUN 25 H, Creatinine 1.20 H, Estimated Creat Clear 51, Estimated GFR 47 L, Est GFR ( Amer) 57 L, Glucose 197 H, Calcium 8.6 I & O for Last 24 hours: Intake & Output 01/08/21 01/09/21 01/10/21 01/11/21 11:59 11:59 11:59 11:59 Intake Total 1840 / 1840 1010 / 1010 2700 / 2700 2140 / 2140 Output Total 250 / 250 100 / 100 1050 / 1050 Balance 1840 / 1840 760 / 760 2600 / 2600 1090 / 1090 Weight 274 lb 15.721 oz 287 lb 288 lb 4 oz Microbiology Reports for the Last 24 Hours: Microbiology 01/07/21 15:17 Toe,Left Great Gram Stain - Final 01/07/21 15:17 Toe,Left Great Surgical Biopsy Culture - Preliminary Staphylococcus caprae 01/07/21 15:25 Foot,Left - Wound Gram Stain - Final 01/07/21 15:25 Foot,Left - Wound Surgical Biopsy Culture - Preliminary Staphylococcus capitis 01/07/21 15:04 Foot,Left Miscellaneous Reference Culture - Preliminary Staphylococcus aureus 01/07/21 14:21 Foot,Right - Wound Gram Stain - Final 01/07/21 14:21 Foot,Right - Wound Wound Culture - Final Staphylococcus aureus 01/10/21 16:19 Foot,Left - Wound Gram Stain - Final 01/09/21 12:16 Foot,Left - Wound Gram Stain - Final 01/09/21 12:16 Foot,Left - Wound Surgical Biopsy Culture - Preliminary NO GROWTH AFTER 24 HOURS 01/09/21 12:44 Foot,Left - Wound Gram Stain - Final 01/09/21 12:44 Foot,Left - Wound Surgical Biopsy Culture - Preliminary NO GROWTH AFTER 24 HOURS 01/07/21 15:04 Toe,Left Great Gram Stain - Final 01/07/21 15:04 Toe,Left Great Surgical Biopsy Culture - Preliminary 01/07/21 14:21 Foot,Left - Wound Gram Stain - Final 01/07/21 14:21 Foot,Left - Wound Wound Culture - Final Staphylococcus aureus 01/07/21 14:50 Toe,Right Great Gram Stain - Final 01/07/21 14:50 Toe,Right Great Wound Culture - Final Staphylococcus aureus - Constitutional no acute distress - *Routine Respiratory Exam Present: CTA bilaterally - *Routine Cardiovascular Exam Present: RRR - *Routine Abdominal Exam Present: soft, normoactive bowel sounds. Absent: tenderness - *Routine Extremities Exam Comments: left foot with dressing and hardware in place - *Routine Neurological Exam Present: alert, oriented X3 Assessment and Plan (1) Foot abscess, left Status: Acute Category: Medical Code(s): L02.612 - Cutaneous abscess of lef
[2021-01-11 09:19] LABS: Hemoglobin 8.5 g/dL (12.2-16.2)
--- NOTE | 2021-01-11 10:29 | P.PN_ITS ---
[facility] Anesthesia Record Part II Discharge Time: 18:23 Destination: Medical Surgical Department PACU nurse assessment reviewed?: Yes Patient Condition:: Good Anesthesia Complications:: None Swallowing reflex intact?: Yes Cyanosis?: No Blood Pressure: 104/67 Pulse Rate: 79 Temperature: 97.8 F Mental Status: Alert & Oriented Pain level:: 5 Nausea and/or vomitting:: None Intake, IV Amount: 0
--- NOTE | 2021-01-11 10:57 | PC.NURSE ---
PT WILL BE NON WEIGHT BEARING FOR SEVERAL WEEKS ON THE LEFT LOWER EXTREMITY AND HAS A FOOT ULCER ON THE RIGHT LOWER EXTREMITY. PT WILL NEED A BARIATRIC WHEELCHAIR TO ASSIST WITH MOBILITY AT HOME.
--- NOTE | 2021-01-11 10:57 | HMH.DCSUM ---
General - General Admission date:: 01/07/21 Discharge date: 01/11/21 HPI HPI: Patient is a 50-year-old diabetic female who presented initially to the ER 01/05/2021 with complaint of the left foot blister and cellulitis. She was given a dose of vancomycin and discharged on Bactrim. Patient reports fevers yesterday and overall malaise. She states the redness has spread and gotten worse and reports pain to the left foot. Patient is well-known to the podiatry team and we have been treating her for bilateral subfirst metatarsal noninfected ulcers outpatient. The left dorsal foot blister/wound is new since her last appointment. She reports it started 01/04/2021. Patient had CT left foot in the ED which does show a cystic fluid collection. Patient has pending blood cultures which were growing GPC. Last hemoglobin A1c, 01/04/2021 7.1%. The above per Dr. Castro on admission Patient was taken to surgery from the emergency room with the following notation: Date of procedure: 01/07/21 Pre-op Diagnosis:: 1. B/L foot (sub 1st metatarsal) diabetic ulcer 2. Left dorsal foot ulcer 3. Left foot abscess 4. Left foot cellulitis Post-op Diagnosis:: Same Procedure performed:: 1. B/L foot (sub 1st metatarsal) ulcer debridement 2. Left foot incision and drainage 3. Left dorsal foot ulcer excision 4. Left foot bone biospy 5. Left foot hardware removal 6. Application of antibiotic beads-left foot Surgeon:: Dione Castro DPM Laboratory data on admission showed a white blood cell count 11,500; hemoglobin was 9.7 with hematocrit of 31.8. Blood chemistries showed sodium of 139 potassium of 4.2. BUN was 19 and creatinine 1.2. At the time of this assessment patient is lying comfortably in the bed after surgery and after receiving Dilaudid for her pain. She has eaten dinner without problems. Hospital Course Hospital Course: The patient's home medications were reordered and she was started on sliding scale insulin. She had already been started on IV vancomycin and was followed by Dr. Castro. Dressing changes were performed and Dr. Castro planned for repeat incision and drainage and placement of an external fixation device to stabilize the left foot. The patient was not a candidate for PICC line, therefore Dr. Ferraro was consulted to place a tunneled single-lumen intravenous catheter at the time of her second foot surgery. She went back into the OR on 01/09/[address] Castro performed another incision and drainage and wound debridement as well as a first metatarsal bone biopsy and application of antibiotic beads. She also placed an external fixation device. Dr. Ferraro performed placement of a single-lumen closed tunneled catheter in the right subclavian vein during this procedure. A chest x-ray confirmed Groshong catheter placement. Her distal bone cultures were growing gram-positive cocci and the hardware appeared to be infected. Her left foot wound culture grew Staph capitis, her left great toe grew Staphylococcus caprae, and another left foot culture grew Staph aureus. Dr. Castro discussed this with the patient and the need to do a distal partial foot amputation. She also took proximal talus bone cultures and felt that if these grew bacteria as well the patient was at high risk for below the knee amputation. The patient was in agreement to try the distal amputation as well as several weeks of IV antibiotics with repeat bone biopsies in 3 to 4 weeks. The patient was taken back to the OR on 01/10/2021 and another incision and drainage along with a left partial foot amputation was performed. She also had an adjustment of her external fixation device. Dr. Castro wanted her to remain nonweightbearing on this foot. The patient tolerated the procedure well but did have quite a bit of pain throughout the night after surgery. She was able to rest some and ate some breakfast. She had received 2 units of blood due to a drop in her H&H. It improved but is
--- NOTE | 2021-01-11 11:19 | SW/DCPLANNER ---
SET IV ANTIBIOTICS THROUGH [facility] OUT OF [place] FOR 6-8 WEEKS VANCOMYCIN 2250MG Q DAY... PATIENT HAS CHOSEN [facility] AND SHE ALSO NEEDED A BARIARTIC WHEELCHAIR AND THIS WAS ORDERED THROUGH [facility]..PATIENT IS GOING TO DISCHARGE HOME LATER THIS AFTERNOON AND TODAY'S DOSE WILL BE AT HOME WITH HOME HEALTH....
[2021-01-11 11:42] LABS: POC Glucose,Bedside 156 (70-110)
[2021-01-18 10:52] LABS: POC Glucose,Bedside 454 (70-110)
[2021-01-18 10:52] LABS: POC Glucose,Bedside 489 (70-110)
== END 2021-01-11 13:20 | disposition home health service (06) | DRG 617 ==
LOC: ER 12:00 → 2ND 12:24
PROVIDERS: Podiatrist; Surgery; Admitting Provider Family Medicine; Emergency Provider Emergency Medicine; PCP Internal Medicine; Visit Provider Family Medicine
PROC: 0HBNXZZ Excision of Left Foot Skin, External Approach (ICD-10-PCS; CPT 11042; principal; 2021-01-07 13:00)
PROC: 0HRNXK3 Replacement of Left Foot Skin with Nonautologous Tissue Substitute, Full Thickness, External Approach (ICD-10-PCS; CPT 20690; principal; 2021-01-09 13:00)
PROC: 0JH63XZ Insertion of Tunneled Vascular Access Device into Chest Subcutaneous Tissue and Fascia, Percutaneous Approach (ICD-10-PCS; CPT 36558; 2021-01-09 13:00)
PROC: 0Y6N0ZB Detachment at Left Foot, Partial 2nd Ray, Open Approach (ICD-10-PCS; CPT 28805; principal; 2021-01-10 14:30)
DX: E11.621 Type 2 diabetes mellitus with foot ulcer (principal); L03.116 Cellulitis of left lower limb; R65.10 Systemic inflammatory response syndrome (SIRS) of non-infectious origin without acute organ dysfunction; Z68.42 Body mass index [BMI] 45.0-49.9, adult; M86.172 Other acute osteomyelitis, left ankle and foot; M86.672 Other chronic osteomyelitis, left ankle and foot; E11.69 Type 2 diabetes mellitus with other specified complication; M14.672 Charcot's joint, left ankle and foot; M14.671 Charcot's joint, right ankle and foot; Z86.14 Personal history of Methicillin resistant Staphylococcus aureus infection; E66.9 Obesity, unspecified; I25.2 Old myocardial infarction; I25.10 Atherosclerotic heart disease of native coronary artery without angina pectoris; I10 Essential (primary) hypertension; Z79.4 Long term (current) use of insulin; Z79.82 Long term (current) use of aspirin; Z95.5 Presence of coronary angioplasty implant and graft; Z88.0 Allergy status to penicillin; Z88.5 Allergy status to narcotic agent; Z88.2 Allergy status to sulfonamides; Z88.8 Allergy status to other drugs, medicaments and biological substances; B95.7 Other staphylococcus as the cause of diseases classified elsewhere
CPT/HCPCS: 28805; 36558; 11042 ×3; 20690; 20693; 15275; 36415; 71045; 73600; 73610; 73620; 73630; 73700; 76000; 80048; 80053; 80202; 82962; 83605; 84145; 85007; 85014; 85018; 85025; 85610; 85651; 85730; 86140; 86850; 87040; 87070; 87075; 87077; 87186; 87205; 88305; 88311; 93005; 93971; 96365; 96367; 96374; 99284; C1713; C1751; J1642; J2405; J3370; P9016; Q4104; U0003

== ENCOUNTER → 2021-01-14 16:21 | Outpatient (CLI) | payer MEDICARE, BC, SELFPAY ==
[2021-01-14 16:45] LABS: Basophils % 0.3 % (0.1-2.0); Eosinophils # 0.3 K/mm3 (0.0-0.4); Eosinophils % 2.7 % (0.1-12.0); Hematocrit 28.6 % (37.0-47.0); Lymphocytes # 2.5 K/mm3 (0.7-4.5); Lymphocytes % 20.5 % (10-50); Mean Corpuscular HGB Conc 31.3 g/dL (31.8-35.4); Mean Corpuscular Hemoglobin 25.7 pg (27.0-31.2); Mean Platelet Volume 8.3 fl (7.4-10.4); Monocytes # 0.6 K/mm3 (0.1-1.0); Monocytes % 5.2 % (1.7-9.3); Neutrophils # 8.7 K/mm3 (1.8-7.8); Neutrophils % 71.3 % (37.0-80.0); Platelet Count 423 K/mm3 (142-424); Red Blood Count 3.49 M/mm3 (4.20-5.40); Red Cell Distribution Width 15.6 % (11.5-17.5); White Blood Count 12.2 K/mm3 (4.8-10.8)
[2021-01-14 17:11] LABS: Erythrocyte Sedimentation Rate > 140 mm/hr (0-30)
[2021-01-14 18:13] LABS: Vancomycin,Trough 15.3 ug/mL (5.0-10.0)
[2021-01-14 21:18] LABS: Alanine Aminotransferase 10 U/L (12-78); Albumin Level 3.1 g/dl (3.5-5.0); Albumin/Globulin Ratio 0.9 (1.1-1.8); Alkaline Phosphatase 84 U/L (38-126); Anion Gap 9.9 mEq/L (5-15); Aspartate Amino Transferase 16 U/L (14-36); Bilirubin,Total 0.2 mg/dl (0.2-1.3); Blood Urea Nitrogen 12 mg/dl (7-17); Calcium 9.4 mg/dl (8.4-10.2); Carbon Dioxide 27 mmol/L (22.0-30.0); Chloride 105 mmol/L (98-107); Estimated Glomerular Filt Rate 66 ml/min (>60); GFR (African American) 80 ML/MIN (>60); Globulin 3.4 g/dL (1.3-3.2); Glucose 118 mg/dl (74-100); Potassium 4.9 mmoL/L (3.5-5.1); Sodium 137 mmol/L (136-145); Total Protein,Serum 6.5 g/dl (6.3-8.2)
[2021-01-14 21:24] LABS: C-Reactive Protein 88.3 mg/L (0-4)
== END ==
PROVIDERS: Visit Provider Podiatrist
DX: L97.519 Non-pressure chronic ulcer of other part of right foot with unspecified severity (principal); Z51.81 Encounter for therapeutic drug level monitoring
CPT/HCPCS: 80053; 80202; 85025; 85651; 86140

== ENCOUNTER → 2021-01-15 17:40 | Outpatient (CLI) | payer MEDICARE, BC, SELFPAY | PROVIDERS: Visit Provider Podiatrist | DX: Z98.890 Other specified postprocedural states (principal) | CPT/HCPCS: 87070; 87205 ==

== ENCOUNTER → 2021-01-21 16:27 | Outpatient (CLI) | payer MEDICARE, BC, SELFPAY ==
[2021-01-21 16:51] LABS: Basophils # 0.1 K/mm3 (0-0.2); Basophils % 0.5 % (0.1-2.0); Eosinophils # 0.3 K/mm3 (0.0-0.4); Eosinophils % 2.7 % (0.1-12.0); Hematocrit 29.1 % (37.0-47.0); Lymphocytes # 2.5 K/mm3 (0.7-4.5); Lymphocytes % 20.4 % (10-50); Mean Corpuscular HGB Conc 30.8 g/dL (31.8-35.4); Mean Corpuscular Hemoglobin 25.6 pg (27.0-31.2); Mean Corpuscular Volume 83.2 fl (81-99); Mean Platelet Volume 8.3 fl (7.4-10.4); Monocytes # 0.8 K/mm3 (0.1-1.0); Monocytes % 6.3 % (1.7-9.3); Neutrophils # 8.7 K/mm3 (1.8-7.8); Neutrophils % 70.2 % (37.0-80.0); Platelet Count 493 K/mm3 (142-424); Red Cell Distribution Width 15.5 % (11.5-17.5); White Blood Count 12.4 K/mm3 (4.8-10.8)
[2021-01-21 16:53] LABS: Alanine Aminotransferase 11 U/L (12-78); Albumin Level 3.7 g/dl (3.5-5.0); Albumin/Globulin Ratio 0.9 (1.1-1.8); Alkaline Phosphatase 95 U/L (38-126); Anion Gap 12.6 mEq/L (5-15); Aspartate Amino Transferase 16 U/L (14-36); Bilirubin,Total 0.2 mg/dl (0.2-1.3); Blood Urea Nitrogen 22 mg/dl (7-17); Calcium 9.7 mg/dl (8.4-10.2); Carbon Dioxide 25 mmol/L (22.0-30.0); Chloride 103 mmol/L (98-107); Estimated Glomerular Filt Rate 47 ml/min (>60); GFR (African American) 57 ML/MIN (>60); Glucose 228 mg/dl (74-100); Potassium 4.6 mmoL/L (3.5-5.1); Sodium 136 mmol/L (136-145); Total Protein,Serum 7.7 g/dl (6.3-8.2)
[2021-01-21 16:59] LABS: C-Reactive Protein 38.3 mg/L (0-4)
[2021-01-21 17:17] LABS: Erythrocyte Sedimentation Rate > 140 mm/hr (0-30)
[2021-01-21 17:31] LABS: Vancomycin,Trough 21.5 ug/mL (5.0-10.0)
== END ==
PROVIDERS: Visit Provider Podiatrist
DX: L97.519 Non-pressure chronic ulcer of other part of right foot with unspecified severity (principal); Z51.81 Encounter for therapeutic drug level monitoring
CPT/HCPCS: 36415; 80053; 80202; 85025; 85651; 86140

== ENCOUNTER 2021-01-28 15:00 | Outpatient (CLI) | payer MEDICARE, BC, SELFPAY ==
[2021-01-28 15:04] VITALS: BMI 43.2
[2021-01-28 15:41] LABS: Alanine Aminotransferase 9 U/L (12-78); Albumin Level 3.8 g/dl (3.5-5.0); Albumin/Globulin Ratio 0.9 (1.1-1.8); Alkaline Phosphatase 95 U/L (38-126); Anion Gap 11.8 mEq/L (5-15); Aspartate Amino Transferase 19 U/L (14-36); Bilirubin,Total 0.3 mg/dl (0.2-1.3); Blood Urea Nitrogen 28 mg/dl (7-17); Calcium 9.5 mg/dl (8.4-10.2); Carbon Dioxide 22 mmol/L (22.0-30.0); Chloride 109 mmol/L (98-107); Creatinine Clearance Estimated 51 mL/min (50-200); Estimated Glomerular Filt Rate 47 ml/min (>60); GFR (African American) 57 ML/MIN (>60); Globulin 4.4 g/dL (1.3-3.2); Glucose 197 mg/dl (74-100); Potassium 4.8 mmoL/L (3.5-5.1); Sodium 138 mmol/L (136-145); Total Protein,Serum 8.2 g/dl (6.3-8.2)
[2021-01-28 15:53] LABS: Vancomycin,Trough 18.8 ug/mL (5.0-10.0)
[2021-01-28 16:02] LABS: Basophils # 0.1 K/mm3 (0-0.2); Basophils % 0.6 % (0.1-2.0); Eosinophils # 0.3 K/mm3 (0.0-0.4); Eosinophils % 3.1 % (0.1-12.0); Hematocrit 29.8 % (37.0-47.0); Hemoglobin 9.2 g/dL (12.2-16.2); Lymphocytes # 2.2 K/mm3 (0.7-4.5); Lymphocytes % 21.4 % (10-50); Mean Corpuscular HGB Conc 30.8 g/dL (31.8-35.4); Mean Corpuscular Hemoglobin 25.4 pg (27.0-31.2); Mean Corpuscular Volume 82.3 fl (81-99); Mean Platelet Volume 8.8 fl (7.4-10.4); Monocytes # 0.7 K/mm3 (0.1-1.0); Monocytes % 6.6 % (1.7-9.3); Neutrophils # 7.1 K/mm3 (1.8-7.8); Neutrophils % 68.4 % (37.0-80.0); Platelet Count 345 K/mm3 (142-424); Red Blood Count 3.62 M/mm3 (4.20-5.40); Red Cell Distribution Width 15.6 % (11.5-17.5); White Blood Count 10.3 K/mm3 (4.8-10.8)
[2021-01-28 16:51] LABS: Erythrocyte Sedimentation Rate > 140 mm/hr (0-30)
== END 2021-01-28 15:20 | disposition home or self-care (01) ==
LOC: INF 15:03
PROVIDERS: PCP Internal Medicine; Visit Provider Nurse Practitioner
DX: L97.519 Non-pressure chronic ulcer of other part of right foot with unspecified severity (principal); Z51.81 Encounter for therapeutic drug level monitoring
CPT/HCPCS: 80053; 80202; 85025; 85651; 86140

== ENCOUNTER → 2021-02-04 17:25 | Outpatient (CLI) | payer MEDICARE, BC, SELFPAY ==
[2021-02-04 17:39] LABS: Basophils # 0.1 K/mm3 (0-0.2); Basophils % 0.6 % (0.1-2.0); Eosinophils # 0.5 K/mm3 (0.0-0.4); Eosinophils % 5.3 % (0.1-12.0); Hematocrit 29.2 % (37.0-47.0); Hemoglobin 8.8 g/dL (12.2-16.2); Lymphocytes # 1.6 K/mm3 (0.7-4.5); Mean Corpuscular HGB Conc 30.3 g/dL (31.8-35.4); Mean Corpuscular Hemoglobin 24.9 pg (27.0-31.2); Mean Corpuscular Volume 82.1 fl (81-99); Mean Platelet Volume 8.6 fl (7.4-10.4); Monocytes # 0.6 K/mm3 (0.1-1.0); Monocytes % 6.6 % (1.7-9.3); Neutrophils # 6.1 K/mm3 (1.8-7.8); Neutrophils % 69.5 % (37.0-80.0); Platelet Count 261 K/mm3 (142-424); Red Blood Count 3.56 M/mm3 (4.20-5.40); Red Cell Distribution Width 15.8 % (11.5-17.5); White Blood Count 8.8 K/mm3 (4.8-10.8)
[2021-02-04 18:04] LABS: Alanine Aminotransferase 11 U/L (12-78); Albumin Level 3.6 g/dl (3.5-5.0); Alkaline Phosphatase 73 U/L (38-126); Anion Gap 12.4 mEq/L (5-15); Aspartate Amino Transferase 24 U/L (14-36); Bilirubin,Total 0.3 mg/dl (0.2-1.3); Blood Urea Nitrogen 23 mg/dl (7-17); Calcium 9.5 mg/dl (8.4-10.2); Carbon Dioxide 23 mmol/L (22.0-30.0); Chloride 108 mmol/L (98-107); Estimated Glomerular Filt Rate 52 ml/min (>60); GFR (African American) 63 ML/MIN (>60); Globulin 3.6 g/dL (1.3-3.2); Glucose 185 mg/dl (74-100); Potassium 4.4 mmoL/L (3.5-5.1); Sodium 139 mmol/L (136-145); Total Protein,Serum 7.2 g/dl (6.3-8.2)
[2021-02-04 18:09] LABS: C-Reactive Protein 13.5 mg/L (0-4)
[2021-02-04 18:10] LABS: Vancomycin,Trough 17.4 ug/mL (5.0-10.0)
[2021-02-04 18:31] LABS: Erythrocyte Sedimentation Rate > 140 mm/hr (0-30)
== END ==
PROVIDERS: Visit Provider Podiatrist
DX: M86.172 Other acute osteomyelitis, left ankle and foot (principal); L03.116 Cellulitis of left lower limb; L08.9 Local infection of the skin and subcutaneous tissue, unspecified
CPT/HCPCS: 80053; 80202; 85025; 85651; 86140

== ENCOUNTER 2021-02-08 06:07 | Day surgery (SDC) | payer MEDICARE, BC, SELFPAY ==
[2021-02-05 13:20] VITALS: BMI 43.2
[2021-02-08] VITALS (11 sets, daily range): BP systolic 133–167; BP diastolic 51–89; PULSE 71–80; RESP 13–18; TEMP 6.1–43; O2SAT 91–99
[2021-02-08 06:43] LABS: POC Glucose,Bedside 200 (70-110)
--- NOTE | 2021-02-08 08:30 | XR_ITS ---
PROCEDURE: XR FOOT LT MIN 3V CLINICAL INDICATION: Post op ex fix COMPARISON: CR XR FOOT RT MIN 3V from 01/07/2021 CR XR FOOT LT MIN 3V from 01/07/2021 CR XR FOOT LT MIN 3V from 01/09/2021 CR XR FOOT LT MIN 3V from 01/10/2021 CR XR ANKLE LT MIN 3V from 02/08/2021 FINDINGS: The external fixator has been removed. There is a splint in place which obscures bony detail. There has been amputation at the mid metatarsal region. Two screws remain in place within the talus and a screw at the calcaneal talar region and 1 at the anterior talus as before. There is good alignment of the ankle. Skin clips remain in place. There is some bony fragmentation at the osteotomy site at the talonavicular area. IMPRESSION: Postsurgical changes with midfoot amputation as described above Dictated by: Hemal Pedersen MD 02/08/2021 16:07 Hemal Pedersen MD in [place] 02/08/2021 16:07
--- NOTE | 2021-02-08 08:46 | HMH.OPNOTE ---
Date of procedure: 02/08/21 Pre-op Diagnosis:: 1. Left foot osteomyelitis 2. Left foot gangrene 3. Left diabetic foot infection 4. Left retained external fixation device Post-op Diagnosis:: Same Procedure performed:: 1. Left foot external fixation device removal (staple, suture removal) 2. Left foot bone biospy 3. Left foot deep wound debridement (of non-viable soft tissue and bone) 4. Left delayed primary closure/revision of skin flap 5. Left application of posterior splint Surgeon:: Dione Castro DPM ICE GUARD TESTER:: Other (Allan Coronado) Anesthesia: GETA, regional (left popliteal block) Estimated blood loss (mL): 20 Clinical Note:: Patient is a 50-year-old diabetic female with Charcot neuroarthropathy. She was recently admitted for left foot infection. Patient understands she has an active bone infection. We have attempted several weeks of IV antibiotics and discussed repeat biopsies. However her prognosis is poor given the positive midfoot bone cultures and pathology. Patient is high risk for more proximal amputation which would entail below the knee amputation since there is active infection in the talus. We will continue to monitor for now. Understands if symptoms worsen or things infection spreads or she becomes septic, will likely need urgent orthopedic consultation for left BKA. Patient takes [place] for chronic pain. Patient verbalized understanding and agreement with the treatment plan. We discussed conservative versus surgical treatment options. Conservative treatment options include local wound care, oral and IV antibiotics. We discussed surgical intervention for removal of the left external fixation device, bone biopsies, debridement of nonviable soft tissue and bone and revising the flap. Patient understands that there is a chance that the foot may change shape after surgery. Patient also understands that they could have wound healing complications including delayed healing and infection. We discussed that if the wound does not heal, it is possible that they may need a more proximal amputation and could result in further loss of partial foot or loss of leg. We discussed the risks and benefits in great detail. Other surgical risks include: prolonged pain and swelling, further infection requiring oral or IV antibiotics, delay in healing of soft tissue or bone, nerve or blood vessel damage, CRPS/RSD, DVT, anesthesia complications, and even . All questions answered. Patient verbalized understanding. Consent obtained. Saw Dr Lynch last week, no change in meds. Pre-op labs: ESR, CRP, Ha1c, CBC, CMP, EKG, CXR, covid. Operative findings:: The sutures and xiomara intact to the wound bed. External fixation device intact with no evidence of infection to the pin sites. Once the gangrenous necrotic nonviable tissue was sharply excisionally debrided from the amputation incision site, there was exposed bone central and laterally. The talus bone was soft and easily squished. Non viable soft tissue to wound bed. Tissue was owusu, granular and fibrotic. Some bleeding noted. Post debridment: wound measured 9.5x4.2x0.4cm. The wound was 60% fibrotic yellow and 40% granular pink tissue. Fair-poor prognosis: if bone cultures/biopsies come back with infection, patient will need proximal amputation. If negative, patient will need debridement with wound vac vs graft. Operative note:: On this date and time patient was deemed an appropriate surgical candidate. With informed consent signed, the patient was taken to the operating theater after left popliteal regional block given by anesthesia. The patient was positioned supine. General anesthesia was induced. No tourniquet used. IV clindamycin 900 mg infused. Left removal of external fixation device (suture/staple removal): The left lower extremity was prepped with betadine. A wrench was used to unscrew the frame. The frame was removed in total. All of the pins were removed without complication. Next a curette was used to cure
--- NOTE | 2021-02-08 09:09 | SUR.PHASEI ---
Pt alert and oriented x3. no reports of pain. dressing dry and intact. pt given ice chips in PACU, tolerated well.
[2021-02-08 09:50] LABS: POC Glucose,Bedside 221 (70-110)
--- NOTE | 2021-02-08 10:41 | P.PN_ITS ---
[facility] Anesthesia Checklist - Structural Data Admitted From: Home Planned Operative Procedure/s: Removal hardware left leg Consent for Planned Operative Procedure(s) Verified: Yes Verified Documents: Surgical Consent, History and Physical - NPO Status Verified Time NPO: 00:00 - Additional verifications Anesthesia Reactions: No Hx Blood Transfusions: No Blood Transfusion Reaction: No - Airway Assessment C-Spine Mobility Assessed: Yes TMJ Mobility Assessed: Yes Dentition: Good Dentition - Neurological Assessment Level of Consciousness: Awake, Alert - Anesthesia Plan Anesthesia Risk discussed: Yes Anesthesia Plan: Verified ASA Class: III Anesthesia Type: General w/block [facility] History 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: Reports:: Anxiety, Arrhythmia, Coronary Artery Disease, Diabetes Mellitus Type 2, Hyperlipidemia, Hypertension, Myocardial Infarction Denies:: Asthma, Cancer, Chronic Obstructive Pulmonary Disease (COPD), Diabetes Mellitus Type 1, Internal Pacemaker, MRSA, Seizures *Have you ever received a pneumonia vaccine?: No *Have you received a flu vaccine this season?: Yes Other 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: Reports: Arthritis, Fibromyalgia, Other. Denies: Blood Transfusion Reaction Anesthesia experience/problems:: NAC Laterality Cases: Bilateral: Arthroscopy Knee, Arthroscopy Shoulder, Other Other Surgeries: Yes: No Previous Surgery, Appendectomy, Cardiac Catheterization (03/26/2020), Cholecystectomy, Colonoscopy, Coronary Stent, Hysterectomy-Total, Other. No: Pacemaker Amputation: No Fractures: No - *Social History Last grade of school completed: High school graduate Smoking Status: Former smoker # Packs/Day (cigarettes): 0 #Yrs smoked (if former smoker): 25 Alcohol Intake: never Alcohol Intake Frequency:: other Substance Use Type: denies use *Occupational Status:: disabled Housing: house Household Members: family, children *Travel in the last 8 weeks: None - Psychiatric History Pschychiatric History:: Reports:: Anxiety Family Hx:: Diabetes, Heart Attack
--- NOTE | 2021-02-08 10:43 | HMH.ANESI ---
[facility] Anesthesia Record Part I Intake, IV Amount: 1,500 Estimated blood loss (mL): 20 Urine output (mL): 0 Blood Products used (#): none Blood Pressure: 146/83 SaO2: 95 Pulse Rate: 80 Respiratory Rate: 14 Temperature: 97.5 F Patient is:: Drowsy, Stable Stable to PACU at:: 08:55
[2021-02-11 08:06] VITALS: BP 167/89; PULSE 75; TEMP 36.6
--- NOTE | 2021-02-11 08:06 | P.PN_ITS ---
[facility] Anesthesia Record Part II Discharge Time: 10:10 Destination: Surgical Day Care (OP Surgery) PACU nurse assessment reviewed?: Yes Patient Condition:: Good Anesthesia Complications:: None Swallowing reflex intact?: Yes Cyanosis?: No Blood Pressure: 167/89 Pulse Rate: 75 Temperature: 97.8 F Mental Status: Alert & Oriented Pain level:: 0 Nausea and/or vomitting:: None Intake, IV Amount: 1,500
== END 2021-02-08 10:12 | disposition home or self-care (01) ==
PROVIDERS: PCP Internal Medicine; Visit Provider Podiatrist
DX: E11.621 Type 2 diabetes mellitus with foot ulcer (principal); L03.116 Cellulitis of left lower limb; M86.172 Other acute osteomyelitis, left ankle and foot; E11.69 Type 2 diabetes mellitus with other specified complication; I96 Gangrene, not elsewhere classified; Z86.14 Personal history of Methicillin resistant Staphylococcus aureus infection; Z68.42 Body mass index [BMI] 45.0-49.9, adult; E66.9 Obesity, unspecified; I10 Essential (primary) hypertension; Z79.4 Long term (current) use of insulin; Z79.82 Long term (current) use of aspirin; Z79.899 Other long term (current) drug therapy; Z88.0 Allergy status to penicillin; Z88.5 Allergy status to narcotic agent; Z88.8 Allergy status to other drugs, medicaments and biological substances
CPT/HCPCS: 11044; 29515; 73610; 73630; 82962; 87070; 87075; 87205; 88305; 88307; 88311; 96374; J1642; J2405

== ENCOUNTER → 2021-02-11 16:14 | Outpatient (CLI) | payer MEDICARE, BC, SELFPAY ==
[2021-02-11 16:47] LABS: Basophils # 0.1 K/mm3 (0-0.2); Basophils % 0.6 % (0.1-2.0); Eosinophils # 0.5 K/mm3 (0.0-0.4); Eosinophils % 4.7 % (0.1-12.0); Hematocrit 26.9 % (37.0-47.0); Hemoglobin 8.6 g/dL (12.2-16.2); Lymphocytes # 2.8 K/mm3 (0.7-4.5); Lymphocytes % 28.9 % (10-50); Mean Corpuscular Hemoglobin 24.7 pg (27.0-31.2); Mean Corpuscular Volume 77.2 fl (81-99); Monocytes # 0.8 K/mm3 (0.1-1.0); Monocytes % 8.7 % (1.7-9.3); Neutrophils # 5.5 K/mm3 (1.8-7.8); Neutrophils % 57.1 % (37.0-80.0); Platelet Count 293 K/mm3 (142-424); Red Blood Count 3.48 M/mm3 (4.20-5.40); Red Cell Distribution Width 15.6 % (11.5-17.5); White Blood Count 9.7 K/mm3 (4.8-10.8)
[2021-02-11 17:06] LABS: Alanine Aminotransferase 9 U/L (12-78); Albumin Level 3.3 g/dl (3.5-5.0); Albumin/Globulin Ratio 1.1 (1.1-1.8); Alkaline Phosphatase 73 U/L (38-126); Anion Gap 10.8 mEq/L (5-15); Aspartate Amino Transferase 16 U/L (14-36); Bilirubin,Total 0.2 mg/dl (0.2-1.3); Blood Urea Nitrogen 21 mg/dl (7-17); Calcium 8.9 mg/dl (8.4-10.2); Carbon Dioxide 25 mmol/L (22.0-30.0); Chloride 105 mmol/L (98-107); Estimated Glomerular Filt Rate 58 ml/min (>60); GFR (African American) 70 ML/MIN (>60); Globulin 2.9 g/dL (1.3-3.2); Glucose 238 mg/dl (74-100); Potassium 4.8 mmoL/L (3.5-5.1); Sodium 136 mmol/L (136-145); Total Protein,Serum 6.2 g/dl (6.3-8.2)
[2021-02-11 17:11] LABS: C-Reactive Protein 3.6 mg/L (0-4)
[2021-02-11 17:12] LABS: Vancomycin,Trough 17.8 ug/mL (5.0-10.0)
[2021-02-11 17:23] LABS: Erythrocyte Sedimentation Rate 71 mm/hr (0-30)
== END ==
PROVIDERS: Visit Provider Podiatrist
DX: M86.172 Other acute osteomyelitis, left ankle and foot (principal); Z51.81 Encounter for therapeutic drug level monitoring; Z79.2 Long term (current) use of antibiotics
CPT/HCPCS: 80053; 80202; 85025; 85651; 86140

== ENCOUNTER → 2021-02-14 17:02 | Outpatient (CLI) | payer MEDICARE, BC, SELFPAY | PROVIDERS: Visit Provider Podiatrist | DX: Z98.890 Other specified postprocedural states (principal) | CPT/HCPCS: 87070; 87205 ==

== ENCOUNTER → 2021-02-18 16:14 | Outpatient (CLI) | payer MEDICARE, BC, SELFPAY ==
[2021-02-18 16:30] LABS: Basophils # 0.1 K/mm3 (0-0.2); Basophils % 0.8 % (0.1-2.0); Eosinophils # 0.4 K/mm3 (0.0-0.4); Eosinophils % 4.4 % (0.1-12.0); Hematocrit 27.9 % (37.0-47.0); Hemoglobin 8.4 g/dL (12.2-16.2); Lymphocytes # 2.3 K/mm3 (0.7-4.5); Lymphocytes % 29.3 % (10-50); Mean Corpuscular HGB Conc 30.1 g/dL (31.8-35.4); Mean Corpuscular Hemoglobin 23.9 pg (27.0-31.2); Mean Corpuscular Volume 79.3 fl (81-99); Mean Platelet Volume 8.7 fl (7.4-10.4); Monocytes # 0.7 K/mm3 (0.1-1.0); Monocytes % 8.7 % (1.7-9.3); Neutrophils # 4.6 K/mm3 (1.8-7.8); Neutrophils % 56.8 % (37.0-80.0); Platelet Count 256 K/mm3 (142-424); Red Blood Count 3.52 M/mm3 (4.20-5.40); Red Cell Distribution Width 15.7 % (11.5-17.5)
[2021-02-18 17:11] LABS: Alanine Aminotransferase 12 U/L (12-78); Albumin Level 3.5 g/dl (3.5-5.0); Albumin/Globulin Ratio 1.2 (1.1-1.8); Alkaline Phosphatase 68 U/L (38-126); Anion Gap 13.4 mEq/L (5-15); Aspartate Amino Transferase 22 U/L (14-36); Bilirubin,Total 0.2 mg/dl (0.2-1.3); Blood Urea Nitrogen 22 mg/dl (7-17); Calcium 8.9 mg/dl (8.4-10.2); Carbon Dioxide 22 mmol/L (22.0-30.0); Chloride 109 mmol/L (98-107); Estimated Glomerular Filt Rate 43 ml/min (>60); GFR (African American) 52 ML/MIN (>60); Glucose 191 mg/dl (74-100); Potassium 4.4 mmoL/L (3.5-5.1); Sodium 140 mmol/L (136-145); Total Protein,Serum 6.5 g/dl (6.3-8.2)
[2021-02-18 17:16] LABS: C-Reactive Protein 12.2 mg/L (0-4)
[2021-02-18 17:31] LABS: Erythrocyte Sedimentation Rate > 140 mm/hr (0-30)
[2021-02-18 18:10] LABS: Vancomycin,Trough 19.2 ug/mL (5.0-10.0)
== END ==
LOC: LAB 16:15 → LAB.DROPOF 16:16
PROVIDERS: Visit Provider Nurse Practitioner
DX: Z51.81 Encounter for therapeutic drug level monitoring (principal)
CPT/HCPCS: 80053; 80202; 85025; 85651; 86140

== ENCOUNTER → 2021-02-25 17:17 | Outpatient (CLI) | payer MEDICARE, BC, SELFPAY ==
[2021-02-25 17:35] LABS: Basophils # 0.1 K/mm3 (0-0.2); Basophils % 0.7 % (0.1-2.0); Eosinophils # 0.2 K/mm3 (0.0-0.4); Eosinophils % 2.6 % (0.1-12.0); Hematocrit 27.8 % (37.0-47.0); Hemoglobin 8.6 g/dL (12.2-16.2); Lymphocytes # 1.7 K/mm3 (0.7-4.5); Lymphocytes % 23.9 % (10-50); Mean Corpuscular HGB Conc 30.8 g/dL (31.8-35.4); Mean Corpuscular Hemoglobin 23.8 pg (27.0-31.2); Mean Corpuscular Volume 77.5 fl (81-99); Monocytes # 0.5 K/mm3 (0.1-1.0); Neutrophils # 4.7 K/mm3 (1.8-7.8); Neutrophils % 65.7 % (37.0-80.0); Platelet Count 240 K/mm3 (142-424); Red Blood Count 3.59 M/mm3 (4.20-5.40); Red Cell Distribution Width 15.5 % (11.5-17.5); White Blood Count 7.2 K/mm3 (4.8-10.8)
[2021-02-25 17:40] LABS: Chloride 107 mmol/L (98-107); Potassium 4.5 mmoL/L (3.5-5.1); Sodium 137 mmol/L (136-145)
[2021-02-25 17:43] LABS: Alanine Aminotransferase 13 U/L (12-78); Albumin Level 3.5 g/dl (3.5-5.0); Albumin/Globulin Ratio 1.2 (1.1-1.8); Alkaline Phosphatase 71 U/L (38-126); Anion Gap 12.5 mEq/L (5-15); Aspartate Amino Transferase 18 U/L (14-36); Bilirubin,Total 0.3 mg/dl (0.2-1.3); Blood Urea Nitrogen 22 mg/dl (7-17); Calcium 8.9 mg/dl (8.4-10.2); Carbon Dioxide 22 mmol/L (22.0-30.0); Estimated Glomerular Filt Rate 58 ml/min (>60); GFR (African American) 70 ML/MIN (>60); Globulin 2.9 g/dL (1.3-3.2); Glucose 288 mg/dl (74-100); Total Protein,Serum 6.4 g/dl (6.3-8.2)
[2021-02-25 17:49] LABS: C-Reactive Protein 6.9 mg/L (0-4)
[2021-02-25 18:54] LABS: Erythrocyte Sedimentation Rate 113 mm/hr (0-30)
== END ==
PROVIDERS: Visit Provider Podiatrist
DX: L03.116 Cellulitis of left lower limb (principal); Z51.81 Encounter for therapeutic drug level monitoring
CPT/HCPCS: 80053; 80202; 85025; 85651; 86140

== ENCOUNTER → 2021-03-26 13:20 | Outpatient (CLI) | payer MEDICARE, BC, SELFPAY ==
[2021-03-26 13:57] LABS: Basophils # 0.1 K/mm3 (0-0.2); Basophils % 0.7 % (0.1-2.0); Eosinophils # 0.4 K/mm3 (0.0-0.4); Eosinophils % 3.7 % (0.1-12.0); Hematocrit 34.2 % (37.0-47.0); Hemoglobin 10.4 g/dL (12.2-16.2); Lymphocytes # 1.8 K/mm3 (0.7-4.5); Lymphocytes % 17.4 % (10-50); Mean Corpuscular HGB Conc 30.4 g/dL (31.8-35.4); Mean Corpuscular Hemoglobin 23.5 pg (27.0-31.2); Mean Corpuscular Volume 77.6 fl (81-99); Mean Platelet Volume 8.8 fl (7.4-10.4); Monocytes # 0.4 K/mm3 (0.1-1.0); Monocytes % 4.2 % (1.7-9.3); Neutrophils # 7.5 K/mm3 (1.8-7.8); Platelet Count 279 K/mm3 (142-424); Red Blood Count 4.41 M/mm3 (4.20-5.40); Red Cell Distribution Width 15.9 % (11.5-17.5); White Blood Count 10.2 K/mm3 (4.8-10.8)
[2021-03-26 14:22] LABS: Blood Urea Nitrogen 37 mg/dl (7-17); Calcium 9.4 mg/dl (8.4-10.2); Carbon Dioxide 26 mmol/L (22.0-30.0); Chloride 104 mmol/L (98-107); Estimated Glomerular Filt Rate 47 ml/min (>60); GFR (African American) 57 ML/MIN (>60); Glucose 252 mg/dl (74-100); Sodium 136 mmol/L (136-145)
== END ==
PROVIDERS: Visit Provider Surgery
DX: Z01.812 Encounter for preprocedural laboratory examination (principal); E11.9 Type 2 diabetes mellitus without complications; Z79.4 Long term (current) use of insulin
CPT/HCPCS: 36415; 80048; 85025

== ENCOUNTER → 2021-05-02 15:22 | Outpatient (CLI) | payer MEDICARE, BC, SELFPAY ==
[2021-05-02 15:56] LABS: Basophils # 0.1 K/mm3 (0-0.2); Basophils % 0.8 % (0.1-2.0); Eosinophils # 0.5 K/mm3 (0.0-0.4); Eosinophils % 8.2 % (0.1-12.0); Hematocrit 35.3 % (37.0-47.0); Hemoglobin 10.3 g/dL (12.2-16.2); Lymphocytes % 33.2 % (10-50); Mean Corpuscular HGB Conc 29.2 g/dL (31.8-35.4); Mean Corpuscular Hemoglobin 22.7 pg (27.0-31.2); Mean Corpuscular Volume 77.9 fl (81-99); Mean Platelet Volume 7.7 fl (7.4-10.4); Monocytes # 0.5 K/mm3 (0.1-1.0); Monocytes % 7.5 % (1.7-9.3); Neutrophils % 50.2 % (37.0-80.0); Platelet Count 232 K/mm3 (142-424); Red Blood Count 4.53 M/mm3 (4.20-5.40); White Blood Count 6.1 K/mm3 (4.8-10.8)
[2021-05-02 16:13] LABS: Chloride 107 mmol/L (98-107); Sodium 138 mmol/L (136-145)
[2021-05-02 16:16] LABS: Alanine Aminotransferase 12 U/L (12-78); Alkaline Phosphatase 92 U/L (38-126); Aspartate Amino Transferase 18 U/L (14-36); Bilirubin,Total 0.2 mg/dl (0.2-1.3); Blood Urea Nitrogen 20 mg/dl (7-17); Carbon Dioxide 24 mmol/L (22.0-30.0); Estimated Glomerular Filt Rate 47 ml/min (>60); GFR (African American) 57 ML/MIN (>60)
[2021-05-02 16:17] LABS: Albumin Level 3.7 g/dl (3.5-5.0); Albumin/Globulin Ratio 1.2 (1.1-1.8); Calcium 9.1 mg/dl (8.4-10.2); Globulin 3.2 g/dL (1.3-3.2); Glucose 195 mg/dl (74-100); Total Protein,Serum 6.9 g/dl (6.3-8.2)
== END ==
PROVIDERS: Visit Provider Surgery
DX: Z01.812 Encounter for preprocedural laboratory examination (principal); Z11.52 Encounter for screening for COVID-19; I70.219 Atherosclerosis of native arteries of extremities with intermittent claudication, unspecified extremity
CPT/HCPCS: 36415; 80053; 85025; U0003

== ENCOUNTER → 2021-07-08 13:36 | Outpatient (CLI) | payer MEDICARE, BC, SELFPAY | PROVIDERS: Visit Provider Surgery | DX: Z01.812 Encounter for preprocedural laboratory examination (principal); Z11.52 Encounter for screening for COVID-19 | CPT/HCPCS: U0003 ==

== ENCOUNTER → 2021-10-24 15:33 | Outpatient (CLI) | payer MEDICARE, BC, SELFPAY ==
[2021-10-24 16:30] LABS: Basophils # 0.1 K/mm3 (0-0.2); Basophils % 0.8 % (0.1-2.0); Eosinophils # 0.2 K/mm3 (0.0-0.4); Eosinophils % 2.7 % (0.1-12.0); Hematocrit 37.9 % (37.0-47.0); Hemoglobin 12.4 g/dL (12.2-16.2); Lymphocytes # 2.4 K/mm3 (0.7-4.5); Mean Corpuscular HGB Conc 32.8 g/dL (31.8-35.4); Mean Corpuscular Hemoglobin 26.5 pg (27.0-31.2); Mean Corpuscular Volume 80.8 fl (81-99); Mean Platelet Volume 9.1 fl (7.4-10.4); Monocytes # 0.6 K/mm3 (0.1-1.0); Monocytes % 6.8 % (1.7-9.3); Neutrophils # 5.8 K/mm3 (1.8-7.8); Neutrophils % 63.8 % (37.0-80.0); Platelet Count 318 K/mm3 (142-424); Red Blood Count 4.69 M/mm3 (4.20-5.40); Red Cell Distribution Width 16.1 % (11.5-17.5); White Blood Count 9.1 K/mm3 (4.8-10.8)
[2021-10-24 16:33] LABS: Anion Gap 10.9 mEq/L (5-15); Blood Urea Nitrogen 27 mg/dl (7-17); Calcium 9.2 mg/dl (8.4-10.2); Carbon Dioxide 26 mmol/L (22.0-30.0); Chloride 105 mmol/L (98-107); Estimated Glomerular Filt Rate 47 ml/min (>60); GFR (African American) 57 ML/MIN (>60); Glucose 205 mg/dl (74-100); Potassium 4.9 mmoL/L (3.5-5.1); Sodium 137 mmol/L (136-145)
== END ==
PROVIDERS: Visit Provider Surgery
DX: Z01.812 Encounter for preprocedural laboratory examination (principal); U07.1 COVID-19
CPT/HCPCS: 36415; 80048; 85025; C9803; U0003; U0005

== ENCOUNTER → 2021-10-26 08:04 | Outpatient (CLI) | payer MEDICARE, BC, SELFPAY ==
[2021-10-26 13:16] VITALS: BP 108/66; PULSE 76; RESP 18; O2SAT 98; O2SAT 99
== END ==
PROVIDERS: PCP Internal Medicine; Visit Provider Internal Medicine
DX: U07.1 COVID-19 (principal); Z23 Encounter for immunization
CPT/HCPCS: 96365

== ENCOUNTER → 2021-12-12 15:41 | Outpatient (CLI) | payer MEDICARE, BC, SELFPAY ==
[2021-12-12 16:14] LABS: Basophils # 0.1 K/mm3 (0-0.2); Basophils % 1.2 % (0.1-2.0); Eosinophils # 0.2 K/mm3 (0.0-0.4); Eosinophils % 2.6 % (0.1-12.0); Hematocrit 40.8 % (37.0-47.0); Hemoglobin 12.8 g/dL (12.2-16.2); Lymphocytes % 22.4 % (10-50); Mean Corpuscular HGB Conc 31.4 g/dL (31.8-35.4); Mean Corpuscular Hemoglobin 27.1 pg (27.0-31.2); Mean Corpuscular Volume 86.1 fl (81-99); Mean Platelet Volume 9.4 fl (7.4-10.4); Monocytes # 0.5 K/mm3 (0.1-1.0); Monocytes % 5.3 % (1.7-9.3); Neutrophils # 6.3 K/mm3 (1.8-7.8); Neutrophils % 68.5 % (37.0-80.0); Platelet Count 256 K/mm3 (142-424); Red Blood Count 4.74 M/mm3 (4.20-5.40); Red Cell Distribution Width 16.3 % (11.5-17.5); White Blood Count 9.1 K/mm3 (4.8-10.8)
[2021-12-12 17:10] LABS: Anion Gap 12.6 mEq/L (5-15); Blood Urea Nitrogen 17 mg/dl (7-17); Calcium 9.2 mg/dl (8.4-10.2); Carbon Dioxide 27 mmol/L (22.0-30.0); Chloride 106 mmol/L (98-107); Estimated Glomerular Filt Rate 52 ml/min (>60); GFR (African American) 63 ML/MIN (>60); Glucose 217 mg/dl (74-100); Potassium 4.6 mmoL/L (3.5-5.1); Sodium 141 mmol/L (136-145)
== END ==
PROVIDERS: Visit Provider Surgery
DX: Z01.812 Encounter for preprocedural laboratory examination (principal); Z11.52 Encounter for screening for COVID-19; Z51.81 Encounter for therapeutic drug level monitoring
CPT/HCPCS: 36415; 80048; 85025; C9803; U0003; U0005

== ENCOUNTER → 2022-03-18 15:42 | Outpatient (CLI) | payer MEDICARE, BC, SELFPAY | PROVIDERS: PCP Internal Medicine; Visit Provider Internal Medicine | DX: Z20.822 Contact with and (suspected) exposure to COVID-19 (principal) | CPT/HCPCS: C9803; U0003; U0005 ==

== ENCOUNTER → 2023-03-10 12:56 | Outpatient (CLI) | payer MEDICARE, BC, SELFPAY ==
--- NOTE | 2023-03-10 13:01 | MM_ITS ---
PROCEDURE INFORMATION: Exam: MG Bilateral Screening 3D Mammography Exam date and time: 03/10/2023 12:51 PM Age: 52 years old Clinical indication: Screening examination TECHNIQUE: Imaging protocol: Bilateral Screening tomosynthesis and 2D mammography including computer-aided detection (CAD) when performed. COMPARISON: No relevant prior studies available. FINDINGS: MAMMOGRAPHY: Breast composition: The breasts are almost entirely fatty. Mass: None. Architectural distortion: None. Calcifications: No suspicious calcifications. Asymmetric density: None. Skin thickening: None. Axillary adenopathy: None. IMPRESSION: No mammographic evidence of malignancy. Annual screening is recommended unless otherwise clinically indicated. ASSESSMENT: BI-RADS Category 1: Negative
== END ==
PROVIDERS: PCP Internal Medicine; Visit Provider Internal Medicine
DX: Z12.31 Encounter for screening mammogram for malignant neoplasm of breast (principal)
CPT/HCPCS: 77063; 77067

== ENCOUNTER → 2023-03-30 10:26 | Outpatient (CLI) | payer MEDICARE, BC, SELFPAY ==
[2023-03-30 10:59] LABS: Basophils % 0.4 % (0.1-2.0); Eosinophils # 0.4 K/mm3 (0.0-0.4); Eosinophils % 3.6 % (0.1-12.0); Hematocrit 39.7 % (37.0-47.0); Hemoglobin 12.8 g/dL (12.2-16.2); Lymphocytes # 2.5 K/mm3 (0.7-4.5); Lymphocytes % 26.6 % (10-50); Mean Corpuscular HGB Conc 32.3 g/dL (31.8-35.4); Mean Corpuscular Hemoglobin 26.6 pg (27.0-31.2); Mean Corpuscular Volume 82.6 fl (81-99); Monocytes # 0.6 K/mm3 (0.1-1.0); Neutrophils % 63.4 % (37.0-80.0); Platelet Count 261 K/mm3 (142-424); Red Blood Count 4.81 M/mm3 (4.20-5.40); Red Cell Distribution Width 15.5 % (11.5-17.5); White Blood Count 9.5 K/mm3 (4.8-10.8)
[2023-03-30 11:07] LABS: Microalbumin/Creatinine Ratio 31.9
[2023-03-30 11:08] LABS: Creatinine,Urine Random 126 mg/dL (Not Estab.)
[2023-03-30 11:13] LABS: Alanine Aminotransferase 19 U/L (12-78); Albumin Level 3.5 g/dl (3.5-5.0); Albumin/Globulin Ratio 1.1 (1.1-1.8); Alkaline Phosphatase 92 U/L (38-126); Anion Gap 16.5 mEq/L (5-15); Aspartate Amino Transferase 21 U/L (14-36); Bilirubin,Total 0.4 mg/dl (0.2-1.3); Blood Urea Nitrogen 20 mg/dl (7-17); Calcium 8.7 mg/dl (8.4-10.2); Carbon Dioxide 28 mmol/L (22.0-30.0); Chloride 97 mmol/L (98-107); Chol/HDL Ratio 4.3 (1-3.5); Cholesterol 164 mg/dl (140-200); Estimated Glomerular Filt Rate 52 ml/min (>60); GFR (African American) 63 ML/MIN (>60); Globulin 3.1 g/dL (1.3-3.2); Glucose 152 mg/dl (74-100); HDL Cholesterol 38 mg/dl (40-60); Potassium 4.5 mmoL/L (3.5-5.1); Sodium 137 mmol/L (136-145); Total Protein,Serum 6.6 g/dl (6.3-8.2); Triglycerides 234 mg/dl (30-150); VLDL Cholesterol 47 mg/dL (0-40)
[2023-03-30 11:19] LABS: Hemoglobin A1C 7.9 % (4.0-6.0)
[2023-03-30 11:24] LABS: Direct LDL Cholesterol 97.81 mg/dL (100-129)
== END ==
PROVIDERS: PCP Internal Medicine; Visit Provider Internal Medicine
DX: E11.59 Type 2 diabetes mellitus with other circulatory complications (principal); E11.42 Type 2 diabetes mellitus with diabetic polyneuropathy; I10 Essential (primary) hypertension; M86.9 Osteomyelitis, unspecified; D64.9 Anemia, unspecified; Z79.4 Long term (current) use of insulin
CPT/HCPCS: 80053; 80061; 82043; 82570; 83036; 85025

== ENCOUNTER 2023-07-11 16:47 | Inpatient (IN) | payer MEDICARE, BC, SELFPAY ==
[2023-07-11] VITALS (7 sets, daily range): BP systolic 110–142; BP diastolic 58–76; PULSE 113–128; RESP 18–30; TEMP 37.2–38.2; O2SAT 93–95; BMI 51.6; BMI 46.9
[2023-07-11 17:14] LABS: POC Glucose,Bedside 436 (70-110)
--- NOTE | 2023-07-11 17:19 | CT_ITS ---
PROCEDURE INFORMATION: Exam: CTA Chest With Contrast Exam date and time: 07/11/2023 6:23 PM Age: 53 years old Clinical indication: Pain; Chest pressure; Additional info: Headache, weakness TECHNIQUE: Imaging protocol: Computed tomographic angiography of the chest with contrast. Exam focused on the arteries. 3D rendering (Not supervised by radiologist): MIP and/or 3D reconstructed images were created by the technologist. Total images: 315 Radiation optimization: All CT scans at this facility use at least one of these dose optimization techniques: automated exposure control; mA and/or kV adjustment per patient size (includes targeted exams where dose is matched to clinical indication); or iterative reconstruction. Contrast material: ISOVUE; Contrast volume: 70 ml; Contrast route: INTRAVENOUS (IV); REPORTING DATA: Count of CT and Cardiac NM exams in prior 12 months: This patient has received 0 known CTs and 0 known cardiac nuclear medicine studies in the 12 months prior to the current study. COMPARISON: CR XR CHEST PORTABLE 01/09/2021 2:26 PM FINDINGS: Tubes, catheters and devices: Intrathecal spinal electrode catheter in the dorsal spinal canal at T10. Pulmonary arteries: Adequate contrast opacification the pulmonary arteries. The main pulmonary artery is dilated at 3.7 cm implying pulmonary arterial hypertension. Cardiac pulsation artifact along the wall of the pulmonary outflow tract. Limitations imposed by attenuation artifact from morbid obesity and respiratory motion compromises evaluation for pulmonary emboli. Aorta: Mildly atherosclerotic thoracic aorta without aneurysm or dissection. Two vessel branching aortic arch is a normal anatomic variation. Thyroid: Mildly heterogeneous thyroid gland without discrete mass. Lungs: The trachea and main bronchi are patent. Mild bilateral dependent atelectasis. Minor bibasilar atelectasis or scarring. No airspace consolidation or concerning infiltrate. Lung nodule evaluation compromised by respiratory motion. Calcified left upper lobe granuloma. Pleural spaces: Unremarkable. No pneumothorax. No pleural effusion. Heart: Borderline cardiomegaly. No pericardial effusion. Coronary arteries: Extensive coronary artery calcifications. Lymph nodes: No mediastinal or hilar lymphadenopathy. Intraperitoneal space: Discussion of the upper abdomen, please see separate CT abdomen and pelvis report. Bones/joints: Mild degenerative changes cervicothoracic spine. No acute osseous abnormality. Bone detail compromised by attenuation artifacts. Surgical anchor right humeral head. Soft tissues: Unremarkable. Other findings: No convincing evidence for main or proximal segmental emboli. Distal segmental and subsegmental branch evaluation is nondiagnostic secondary to degree of artifact. IMPRESSION: 1. No main or proximal segmental pulmonary emboli. 2. Attenuation artifact from body habitus and respiratory motion compromises evaluation of distal segmental and subsegmental pulmonary artery branches. 3. Borderline cardiomegaly with extensive coronary artery calcifications. 4. No aortic aneurysm or dissection. 5. Mild bilateral dependent atelectasis. No concerning infiltrate or airspace consolidation. 6. Additional chronic and incidental findings.
--- NOTE | 2023-07-11 17:19 | CT_ITS ---
PROCEDURE INFORMATION: Exam: CT Head Without Contrast Exam date and time: 07/11/2023 6:19 PM Age: 53 years old Clinical indication: Other: Weakness; Additional info: Headache, weakness TECHNIQUE: Imaging protocol: Computed tomography of the head without contrast. Radiation optimization: All CT scans at this facility use at least one of these dose optimization techniques: automated exposure control; mA and/or kV adjustment per patient size (includes targeted exams where dose is matched to clinical indication); or iterative reconstruction. REPORTING DATA: Count of CT and Cardiac NM exams in prior 12 months: This patient has received 0 known CTs and 0 known cardiac nuclear medicine studies in the 12 months prior to the current study. COMPARISON: No relevant prior studies available. FINDINGS: Tubes, catheters and devices: There are right earrings in place with associated streak artifact that limits the study Brain: There are scattered white matter changes with areas of hypodensity which are nonspecific but most likely reflect chronic microvascular disease. No evidence for acute intracranial hemorrhage, midline shift, or mass effect. No compelling evidence for acute transcortical infarct. Cerebral ventricles: There is enlargement of the ventricles and sulci compatible with age-related atrophy. Paranasal sinuses: Visualized sinuses are unremarkable. No fluid levels. Mastoid air cells: Visualized mastoid air cells are well aerated. Bones/joints: Unremarkable. No acute fracture. Soft tissues: Unremarkable. IMPRESSION: Age-related changes without acute abnormality detected.
--- NOTE | 2023-07-11 17:19 | CT_ITS ---
PROCEDURE INFORMATION: Exam: CT Abdomen And Pelvis With Contrast Exam date and time: 07/11/2023 6:23 PM Age: 53 years old Clinical indication: Pain; Other: Headache and weakness; Additional info: Headache, weakness TECHNIQUE: Imaging protocol: Computed tomography of the abdomen and pelvis with contrast. Total images: 761 Radiation optimization: All CT scans at this facility use at least one of these dose optimization techniques: automated exposure control; mA and/or kV adjustment per patient size (includes targeted exams where dose is matched to clinical indication); or iterative reconstruction. Contrast material: ISOVUE; Contrast volume: 70 ml; Contrast route: IV; REPORTING DATA: Count of CT and Cardiac NM exams in prior 12 months: This patient has received 0 known CTs and 0 known cardiac nuclear medicine studies in the 12 months prior to the current study. COMPARISON: CR XR CHEST PORTABLE 01/09/2021 2:26 PM FINDINGS: Lungs: Minor bibasilar atelectasis. No airspace consolidation. Heart: Normal heart size. Coronary arteries: Coronary artery calcifications. Liver: Mild hepatomegaly. Heterogeneously decreased liver attenuation likely reflecting hepatic steatosis or sequela of nonspecific chronic liver disease. No discrete liver mass. Gallbladder and bile ducts: Status post cholecystectomy. No bile duct dilatation. Pancreas: Mild fatty interdigitation of the pancreas. No acute pancreatitis. Spleen: Normal. No splenomegaly. Adrenal glands: Minor adrenal thickening. No adrenal nodule or mass. Kidneys and ureters: Mild bilateral perinephric fat stranding. Indistinct subcentimeter upper pole left renal cortical hypodensity, too small to characterize but statistically a cyst. No hydronephrosis or nephrolithiasis. Bilateral renal cortical scarring. Stomach and bowel: Unremarkable stomach and duodenum. No ileus or bowel obstruction. Small bowel appears within normal limits. Mild diverticulosis of the descending and sigmoid colon without acute diverticulitis. Unremarkable rectum. Appendix: Status post appendectomy. Intraperitoneal space: No ascites. No free air. Vasculature: Abdominal aorta is atherosclerotic but nonaneurysmal. Lymph nodes: Enlarged and thickened right inguinal lymph node measuring 3 cm in long axis. Additional prominent right inguinal and right iliac lymph nodes. Borderline enlarged periportal and portacaval lymph nodes. No retroperitoneal or mesenteric adenopathy. Urinary bladder: Unremarkable as visualized. Reproductive: Status post hysterectomy. No pelvic mass or free pelvic fluid. Bones/joints: Mild osteopenia. Moderate degenerative changes thoracolumbar spine. Intraspinal electrode catheters in the dorsal spinal canal at T10 with generator pack implanted in the soft tissues superior right gluteal region. Soft tissues: Considerable limitations imposed by attenuation artifact from morbid obesity. Left gluteal calcified injection granuloma. Small fat containing umbilical hernia. IMPRESSION: 1. Mild right iliac and right inguinal lymphadenopathy. Differential is broad including reactive/postinflammatory, granulomatous, metastatic, and neoplastic causes. 3 cm right inguinal lymph node would be amenable to ultrasound-guided percutaneous biopsy which is the recommendation. 2. Mild hepatomegaly with steatosis versus sequela of nonspecific chronic liver disease. 3. Status post cholecystectomy, appendectomy, and hysterectomy. 4. Colonic diverticulosis without acute diverticulitis. 5. Additional chronic and incidental findings. COMMENTS: Consistent with the [employer]'s Incidental Findings Committee white paper (J Am Edward Radiol 2018): Any incidental renal lesion less than 1 cm or
--- NOTE | 2023-07-11 17:47 | HMH.EDGENADL ---
Discharge Plan Disposition Patient Disposition: Admitted Condition: Fair Clinical Impressions Clinical Impression: DKA (diabetic ketoacidosis), SIRS (systemic inflammatory response syndrome) Discharge ED Provider: Eldiia Castellon General Adult HPI General Chief complaint: Hyper/Hypoglycemia Stated complaint: nausea Time Seen by Provider: 07/11/23 17:02 History of Present Illness HPI narrative: This patient is a 53-year-old female with a history of poorly controlled type 2 diabetes, Charcot foot with chronic foot wound, renal insufficiency, CAD status post stenting, hyperlipidemia presented to the emergency department for evaluation with concern for feeling unwell.? She states she started feeling unwell yesterday.? She states she has felt hot, nauseated, thirsty, and has had high blood sugar readings. She states she went to [employer] today, started feeling worse, and then had a bowel movement on herself. Family checked on her in the bathroom and the patient felt like she couldnt get up from the toilet because of generalized weakness, so she was brought in by EMS. They report reassuring vitals en route. Patient denies fevers, chills, chest pain, shortness of breath, vomiting, hematochezia, melena, rashes, or swelling.? She states that her foot wounds are doing okay and she actually had her feet evaluated yesterday and was told everything was doing well.? She has complained of some upper abdominal pain. Related Data Home Medications Medication Instructions Recorded Confirmed hydrocodone 10 mg-acetaminophen 1 each PO Q6H Pain 02/03/19 02/20/21 325 mg tablet aspirin 81 mg chewable tablet 81 mg PO DAILY HEART HEALTH 04/08/19 02/20/21 ezetimibe 10 mg tablet 10 mg PO DAILY Cholesterol 03/06/20 02/20/21 duloxetine 60 mg capsule,delayed 60 mg PO BID MOOD 07/02/20 02/20/21 release liraglutide 0.6 mg/0.1 mL (18 mg/3 1.8 mg SQ DAILY Diabetes 30 days 09/17/20 02/20/21 mL) subcutaneous pen injector #9 mL dapagliflozin propanediol 10 mg 10 mg PO DAILY Diabetes 11/01/20 02/20/21 tablet insulin glargine 100 unit/mL (3 75 unit SQ HS Diabetes 11/01/20 02/20/21 mL) subcutaneous pen isosorbide mononitrate 60 mg 60 mg PO DAILY Hypertension 12/14/20 02/20/21 tablet,extended release 24 hr pregabalin 200 mg capsule 200 mg PO BID NEUROPATHY 12/14/20 02/20/21 ascorbic acid (vitamin C) 500 mg 500 mg PO QID Supplement 01/05/21 02/20/21 tablet ergocalciferol (vitamin D2) 1,250 50,000 unit PO WEEKLY Supplement 01/05/21 02/20/21 mcg (50,000 unit) capsule zinc sulfate 50 mg zinc (220 mg) 220 mg PO DAILY Diet supplement 01/05/21 02/20/21 capsule ramipril 5 mg capsule 5 mg PO DAILY Hypertension 01/07/21 02/20/21 metoprolol tartrate 100 mg tablet See Rx Instructions .Route 02/05/21 02/20/21 .COMPLEX bp spironolactone 25 mg tablet See Rx Instructions .Route 02/05/21 02/20/21 .COMPLEX bp/swelling vancomycin 1,000 mg intravenous 2,250 mg IV Q24H Infection 02/05/21 02/20/21 injection rosuvastatin 20 mg tablet 20 mg PO 02/14/21 02/20/21 trazodone 100 mg tablet 100 mg PO 02/14/21 02/20/21 Previous Rx's Medication Instructions Recorded tramadol 50 mg tablet 50 mg PO Q6HP PRN MODERATE PAIN 11/23/20 nystatin 100,000 unit/gram topical 1 applic topical BID #45 ea 05/01/21 powder Allergies Allergy/AdvReac Type Severity Reaction Status Date / Time amoxicillin [AMOXICILLIN] Allergy Unknown Unknown Verified 02/20/21 13:10 allergy reaction codeine [CODEINE] AdvReac Mild STOMACH Verified 02/20/21 13:10 CRAMPS morphine [MORPHINE] AdvReac Mild STOMACH Verified 02/20/21 13:10 CRAMPS oxycodone [From Percocet] AdvReac Mild STOMACH Verified 02/20/21 13:10 CRAMPS PFSH PFSH Disclaimer: The information contained in this section may have been updated after the patient was seen, as this information can be updated by other users. Social History Smoking Status: Fo
[2023-07-11 17:55] LABS: Acetone, Serum (Rapid) Moderate (None Detect)
--- NOTE | 2023-07-11 18:00 | PC.NURSE ---
pt setting in bed no needs,call light at bs
[2023-07-11 18:03] LABS: Alanine Aminotransferase 33 U/L (12-78); Albumin Level 4.2 g/dl (3.5-5.0); Alkaline Phosphatase 115 U/L (38-126); Anion Gap 25.8 mEq/L (5-15); Aspartate Amino Transferase 32 U/L (14-36); Bilirubin,Total 0.9 mg/dl (0.2-1.3); Blood Urea Nitrogen 13 mg/dl (7-17); Calcium 9.2 mg/dl (8.4-10.2); Carbon Dioxide 14 mmol/L (22.0-30.0); Chloride 96 mmol/L (98-107); Creatinine Clearance Estimated 54 mL/min (50-200); Estimated Glomerular Filt Rate 52 ml/min (>60); GFR (African American) 62 ML/MIN (>60); Globulin 4.1 g/dL (1.3-3.2); Lipase 107 U/L (23-300); Potassium 4.8 mmoL/L (3.5-5.1); Sodium 131 mmol/L (136-145); Total Protein,Serum 8.3 g/dl (6.3-8.2)
[2023-07-11 18:04] LABS: Glucose 476 mg/dl (74-100); Lactic Acid 2.2 mmol/L (0.7-2.1)
--- NOTE | 2023-07-11 18:04 | PC.NURSE ---
CRITICAL GLUCOSE 476, RECEIVED FROM [facility] IN LAB. PT NAME AND R/V. DR WICK NOTIFIED. NO NEW ORDERS
[2023-07-11 18:09] LABS: Basophils % 0.2 % (0.1-2.0); Eosinophils # 0.1 K/mm3 (0.0-0.4); Eosinophils % 0.5 % (0.1-12.0); Hematocrit 44.2 % (37.0-47.0); Hemoglobin 14.2 g/dL (12.2-16.2); Lymphocytes # 1.2 K/mm3 (0.7-4.5); Lymphocytes % 4.6 % (10-50); Mean Corpuscular HGB Conc 32.2 g/dL (31.8-35.4); Mean Corpuscular Hemoglobin 27.3 pg (27.0-31.2); Mean Corpuscular Volume 84.9 fl (81-99); Mean Platelet Volume 9.7 fl (7.4-10.4); Monocytes # 0.9 K/mm3 (0.1-1.0); Monocytes % 3.6 % (1.7-9.3); Neutrophils # 23.3 K/mm3 (1.8-7.8); Neutrophils % 91.2 % (37.0-80.0); Platelet Count 213 K/mm3 (142-424); Red Cell Distribution Width 15.6 % (11.5-17.5); White Blood Count 25.6 K/mm3 (4.8-10.8)
[2023-07-11 18:12] LABS: MANUAL DIFFERENTIAL MANUAL DIFFERENTIAL (MANUAL DIFF)
[2023-07-11 18:21] LABS: T4 (Thyroxine) 9.7 ug/dl (5.53-11.0); Troponin I < 0.01 ng/ml (0.00-0.034)
[2023-07-11 18:33] LABS: Thyroid Stimulating Hormone 0.41 uIU/mL (0.465-4.68)
--- NOTE | 2023-07-11 18:34 | PC.NURSE ---
contacted pharmacy r/t error with insulin drip ordered. States she is correcting the order, is going to start drip at 5 units/hr
--- NOTE | 2023-07-11 18:52 | ECG_ITS ---
APPROVED REPORT Exam: Resting ECG HR:121 bpm ECG Measurements Heart Rate 121 AXES AR 360 P QRSd 97 QRS 3 QT 312 T 69 QTc 384 Conclusion Sinus rhythm with marked electrical interference/artifact ABNORMAL RHYTHM ECG UNCONFIRMED REPORT Electronically signed by : Apolinar Odonnell MD 07/12/2023 12:33:57
--- NOTE | 2023-07-11 19:18 | PC.NURSE ---
bedside report given to everette cade
--- NOTE | 2023-07-11 20:01 | PC.NURSE ---
Called admissions to give room #
--- NOTE | 2023-07-11 20:07 | PC.NURSE ---
Rounded on pt. No needs voiced at this time. Visitor at BS.
[2023-07-11 20:13] LABS: Troponin I < 0.01 ng/ml (0.00-0.034)
[2023-07-11 20:19] LABS: POC Glucose,Bedside 466 (70-110)
[2023-07-11 20:34] LABS: Lymphocytes % 6 % (10-50); Monocytes % 3 % (2-9); Neutrophils % 91 % (42-76); Platelet Estimate Normal; RBC Morphology Normal; Total Cells Counted 100
--- NOTE | 2023-07-11 20:40 | PC.NURSE ---
Report called to GRETA Coats at this time.
--- NOTE | 2023-07-11 20:41 | EXP.HP ---
History of Present Illness *Admission Date: 07/11/23 *Reason for visit:: DKA/sepsis *History of present illness: This is a 53-year-old female with extensive medical history including but not limited to morbidly obesity with poorly controlled type 2 diabetes, Charcot foot with chronic foot wound; CKD, CAD status post stenting, HLD, HTN presented to the emergency department for evaluation.? She is c/o chills, nausea, excessive thirsty, and has had high blood sugar readings. everything started yesterday. Patient also reported, increased weakness, that stopped her to perform her daily activity, that is when family member decided to call EMS. Patient denies fevers, chills, chest pain, shortness of breath, vomiting, hematochezia, melena, rashes, or swelling.? Patient was brought to ER. Admitted for treatment. [facility] Disclaimer: The information contained in this section may have been updated after the patient was seen, as this information can be updated by other users. Social History Smoking Status: Former smoker pack-years: 25 second hand exposure: No alcohol intake: never substance use type: denies use current occupational status: disabled Travel in the last 8 weeks: None household members: family and children housing: house current occupational exposures/hazards: Yes caffeine: Yes Review of Systems Review of Systems Review of systems:: pertinent systems reviewed and negative unless documented below Meds Home Medications and Allergies Home Medications Medication Instructions Recorded Confirmed Type aspirin 81 mg chewable tablet 81 mg PO AM HEART HEALTH 04/08/19 07/12/23 History ezetimibe 10 mg tablet 10 mg PO HS Cholesterol 03/06/20 07/12/23 History duloxetine 60 mg capsule,delayed 60 mg PO BID MOOD 07/02/20 07/12/23 History release liraglutide 0.6 mg/0.1 mL (18 mg/3 1.8 mg SQ AM Diabetes 30 days #9 mL 09/17/20 07/12/23 History mL) subcutaneous pen injector dapagliflozin propanediol 10 mg 10 mg PO AM Diabetes 11/01/20 07/12/23 History tablet insulin glargine 100 unit/mL (3 80 unit SQ HS Diabetes 11/01/20 07/12/23 History mL) subcutaneous pen isosorbide mononitrate 60 mg 60 mg PO AM Chest Pain 12/14/20 07/12/23 History tablet,extended release 24 hr pregabalin 200 mg capsule 200 mg PO BID NEUROPATHY 12/14/20 07/12/23 History ramipril 5 mg capsule 5 mg PO AM Hypertension 01/07/21 07/12/23 History spironolactone 25 mg tablet 25 mg PO DAILY Fluid 02/05/21 07/12/23 History rosuvastatin 20 mg tablet 20 mg PO AM Cholesterol 02/14/21 07/12/23 History trazodone 100 mg tablet 100 mg PO HS SLEEP 02/14/21 07/12/23 History hydrocodone 10 mg-acetaminophen 1 tab PO Q6HP PRN Moderate Pain 07/12/23 07/12/23 History 325 mg tablet (Scale Score 5-6) insulin lispro 100 unit/mL 24 unit SQ AC Diabetes 07/12/23 07/12/23 History subcutaneous pen lorazepam 0.5 mg tablet 0.5 mg PO TIDP PRN Anxiety 07/12/23 07/12/23 History rivaroxaban 2.5 mg tablet (Xarelto) 2.5 mg PO BID Blood Thinner 07/12/23 07/12/23 History New Prescriptions to Start Prescriptions: Allergies Allergy/AdvReac Type Severity Reaction Status Date / Time amoxicillin [AMOXICILLIN] Allergy Unknown Unknown Verified 02/20/21 13:10 allergy reaction codeine [CODEINE] AdvReac Mild STOMACH Verified 02/20/21 13:10 CRAMPS morphine [MORPHINE] AdvReac Mild STOMACH Verified 02/20/21 13:10 CRAMPS oxycodone [From Percocet] AdvReac Mild STOMACH Verified 02/20/21 13:10 CRAMPS Exam Data for Last 24 hours Vital signs and Labs for Last 24 Hours: Temp Pulse Resp BP Pulse Ox O2 Del Method 100.8 F H 128 H 24 126/58 L 93 L Room Air 07/11/23 16:47 07/11/23 19:31 07/11/23 19:31 07/11/23 19:31 07/11/23 19:31 07/11/23 19:31 Laboratory Results - last 24 hr 07/11/23 16:52: POC Glucose 436 H* 07/11/23 17:07: WBC 25.6 H*, RBC 5.20, Hgb 14.2, Hct 44.2, MCV 84.9, MCH 27
--- NOTE | 2023-07-11 20:52 | PC.NURSE ---
PT ARRIVED TO FLOOR AT THIS TIME
--- NOTE | 2023-07-11 21:36 | PC.NURSE ---
PT ARRIVED TO UNIT WITH INSULIN GTT INFUSING @ 5UNITS/HR, VANC NOT GIVEN BUT MIXED BY DELI BAKERY CLERK. @ 2054 THIS RN CHECKED THIS PT'S FSBS AND RESULT IS 485 @ 2112 THIS RN INCREASED INSULIN GTT FROM 5UNITS/HR TO 10UNITS/HR AFTER REVIEWING PROTOCOL 2 RN VERIFY W/ ANYI, RN
[2023-07-11 21:46] LABS: Reflex Lactic Add Lactic Reflex
[2023-07-11 22:32] LABS: Acetone, Serum (Rapid) Small (None Detect)
[2023-07-11 22:40] LABS: POC Glucose,Bedside 402 (70-110)
[2023-07-11 22:40] LABS: POC Glucose,Bedside 485 (70-110)
[2023-07-11 23:12] LABS: POC Glucose,Bedside 418 (70-110)
[2023-07-11 23:42] LABS: Lactic Acid Follow Up (RFLX 1) 1.9 mmol/L (0.7-2.1)
[2023-07-11 23:43] LABS: Blood Urea Nitrogen 14 mg/dl (7-17); Calcium 8.5 mg/dl (8.4-10.2); Carbon Dioxide 18 mmol/L (22.0-30.0); Chloride 101 mmol/L (98-107); Creatinine Clearance Estimated 50 mL/min (50-200); Estimated Glomerular Filt Rate 47 ml/min (>60); GFR (African American) 56 ML/MIN (>60); Glucose 331 mg/dl (74-100); Sodium 133 mmol/L (136-145)
[2023-07-11 23:55] LABS: Troponin I 0.02 ng/ml (0.00-0.034)
[2023-07-12] VITALS (14 sets, daily range): BP systolic 103–153; BP diastolic 56–92; PULSE 90–120; RESP 14–23; TEMP 36.7–37.3; O2SAT 92–98
--- NOTE | 2023-07-12 01:55 | PC.NURSE ---
@ 2113 INSULIN GTT TITRATED FROM 5UNITS/HR TO 10UNITS/HR @ 2221 INSULIN GTT TITRATED FROM 10UNITS/HR TO 20UNITS/HR @ 2307 INSULIN GTT TITRATED FROM 20UNITS/HR TO 25UNITS/HR
[2023-07-12 03:03] LABS: POC Glucose,Bedside 203 (70-110)
[2023-07-12 03:03] LABS: POC Glucose,Bedside 239 (70-110)
[2023-07-12 03:03] LABS: POC Glucose,Bedside 188 (70-110)
[2023-07-12 03:03] LABS: POC Glucose,Bedside 278 (70-110)
[2023-07-12 03:11] LABS: Anion Gap 16.8 mEq/L (5-15); Blood Urea Nitrogen 16 mg/dl (7-17); Calcium 8.7 mg/dl (8.4-10.2); Carbon Dioxide 20 mmol/L (22.0-30.0); Chloride 103 mmol/L (98-107); Creatinine Clearance Estimated 54 mL/min (50-200); Estimated Glomerular Filt Rate 52 ml/min (>60); GFR (African American) 62 ML/MIN (>60); Glucose 187 mg/dl (74-100); Potassium 3.8 mmoL/L (3.5-5.1); Sodium 136 mmol/L (136-145)
[2023-07-12 03:51] LABS: POC Glucose,Bedside 154 (70-110)
[2023-07-12 05:24] LABS: POC Glucose,Bedside 153 (70-110)
[2023-07-12 05:54] LABS: POC Glucose,Bedside 150 (70-110)
[2023-07-12 06:51] LABS: POC Glucose,Bedside 143 (70-110)
--- NOTE | 2023-07-12 07:02 | PC.NURSE ---
@ 3258 THIS RN TITRATED INSULIN GTT TO 6UNITS/HR
[2023-07-12 07:17] LABS: Basophils % 0.1 % (0.1-2.0); Eosinophils % 0.1 % (0.1-12.0); Hematocrit 42.9 % (37.0-47.0); Hemoglobin 13.8 g/dL (12.2-16.2); Lymphocytes % 5.3 % (10-50); Mean Corpuscular HGB Conc 32.1 g/dL (31.8-35.4); Mean Corpuscular Volume 84.1 fl (81-99); Monocytes % 5.7 % (1.7-9.3); Neutrophils # 15.8 K/mm3 (1.8-7.8); Neutrophils % 88.8 % (37.0-80.0); Platelet Count 192 K/mm3 (142-424); Red Cell Distribution Width 15.8 % (11.5-17.5); White Blood Count 17.8 K/mm3 (4.8-10.8)
[2023-07-12 07:20] LABS: MANUAL DIFFERENTIAL MANUAL DIFFERENTIAL (MANUAL DIFF)
[2023-07-12 07:28] LABS: Chloride 105 mmol/L (98-107)
[2023-07-12 07:29] LABS: Chloride 105 mmol/L (98-107); Potassium 3.8 mmoL/L (3.5-5.1); Sodium 137 mmol/L (136-145); Sodium 138 mmol/L (136-145)
[2023-07-12 07:30] LABS: Acetone, Serum (Rapid) None Detected (None Detect); Potassium 3.8 mmoL/L (3.5-5.1)
[2023-07-12 07:31] LABS: Alanine Aminotransferase 38 U/L (12-78); Alkaline Phosphatase 84 U/L (38-126); Aspartate Amino Transferase 60 U/L (14-36); Bilirubin,Total 0.3 mg/dl (0.2-1.3); Blood Urea Nitrogen 16 mg/dl (7-17); Creatinine Clearance Estimated 54 mL/min (50-200); Estimated Glomerular Filt Rate 52 ml/min (>60); GFR (African American) 62 ML/MIN (>60)
[2023-07-12 07:32] LABS: Albumin Level 3.4 g/dl (3.5-5.0); Albumin/Globulin Ratio 0.9 (1.1-1.8); Anion Gap 15.8 mEq/L (5-15); Blood Urea Nitrogen 16 mg/dl (7-17); Calcium 9.2 mg/dl (8.4-10.2); Carbon Dioxide 21 mmol/L (22.0-30.0); Creatinine Clearance Estimated 54 mL/min (50-200); Estimated Glomerular Filt Rate 52 ml/min (>60); GFR (African American) 62 ML/MIN (>60); Globulin 3.6 g/dL (1.3-3.2); Glucose 139 mg/dl (74-100); Magnesium 1.9 mg/dl (1.6-2.3)
[2023-07-12 07:33] LABS: Anion Gap 14.8 mEq/L (5-15); Calcium 9.2 mg/dl (8.4-10.2); Carbon Dioxide 21 mmol/L (22.0-30.0); Glucose 139 mg/dl (74-100)
--- NOTE | 2023-07-12 07:56 | PC.NURSE ---
notiifed MD Soria that pt's Gap is closed at 11 and no acetone detected and glucose 139
[2023-07-12 08:01] LABS: Lymphocytes % 5 % (10-50); Monocytes % 9 % (2-9); Neutrophils % 86 % (42-76); Platelet Estimate Normal; RBC Morphology Normal; Total Cells Counted 100
--- NOTE | 2023-07-12 08:54 | EXP.PHA.CONS ---
Pharmacy Consult Date: 07/12/23 Time: 08:54 Referring provider: DR MOREJON Reason for Consult:: VANCOMYCIN DOSING CONSULT Allergies Allergy/AdvReac Type Severity Reaction Status Date / Time amoxicillin [AMOXICILLIN] Allergy Unknown Unknown Verified 02/20/21 13:10 allergy reaction codeine [CODEINE] AdvReac Mild STOMACH Verified 02/20/21 13:10 CRAMPS morphine [MORPHINE] AdvReac Mild STOMACH Verified 02/20/21 13:10 CRAMPS oxycodone [From Percocet] AdvReac Mild STOMACH Verified 02/20/21 13:10 CRAMPS Home Medications Medication Instructions Recorded Confirmed Type hydrocodone 10 mg-acetaminophen 1 tab PO Q6H PRN Pain 02/03/19 07/12/23 History 325 mg tablet aspirin 81 mg chewable tablet 81 mg PO AM HEART HEALTH 04/08/19 07/12/23 History ezetimibe 10 mg tablet 10 mg PO HS Cholesterol 03/06/20 07/12/23 History duloxetine 60 mg capsule,delayed 60 mg PO BID MOOD 07/02/20 07/12/23 History release liraglutide 0.6 mg/0.1 mL (18 mg/3 1.8 mg SQ AM Diabetes 30 days #9 mL 09/17/20 07/12/23 History mL) subcutaneous pen injector dapagliflozin propanediol 10 mg 10 mg PO AM Diabetes 11/01/20 07/12/23 History tablet insulin glargine 100 unit/mL (3 80 unit SQ HS Diabetes 11/01/20 07/12/23 History mL) subcutaneous pen tramadol 50 mg tablet 50 mg PO Q6HP PRN MODERATE PAIN 11/23/20 07/12/23 Rx isosorbide mononitrate 60 mg 60 mg PO AM Hypertension 12/14/20 07/12/23 History tablet,extended release 24 hr pregabalin 200 mg capsule 200 mg PO BID NEUROPATHY 12/14/20 07/12/23 History ramipril 5 mg capsule 10 mg PO AM Hypertension 01/07/21 07/12/23 History spironolactone 25 mg tablet See Rx Instructions .Route 02/05/21 07/12/23 History .COMPLEX bp/swelling rosuvastatin 20 mg tablet 20 mg PO AM Cholesterol 02/14/21 07/12/23 History trazodone 100 mg tablet 100 mg PO HS SLEEP 02/14/21 07/12/23 History rivaroxaban 2.5 mg tablet (Xarelto) 2.5 mg PO BID Blood Thinner 07/12/23 07/12/23 History rivaroxaban 2.5 mg tablet (Xarelto) 5 mg PO BID Blood Thinner 07/12/23 07/12/23 History New Prescriptions to Start Prescriptions: Height: 1.68 m Weight: 132.494 kg Laboratory Results:: Laboratory Results - last 24 hr 07/11/23 16:52: POC Glucose 436 H* 07/11/23 17:07: WBC 25.6 H*, RBC 5.20, Hgb 14.2, Hct 44.2, MCV 84.9, MCH 27.3, MCHC 32.2, RDW 15.6, Plt Count 213, MPV 9.7, Neut % (Auto) 91.2 H, Lymph % (Auto) 4.6 L, [place] % (Auto) 3.6, Eos % (Auto) 0.5, Baso % (Auto) 0.2, Neut # (Auto) 23.3 H, Lymph # (Auto) 1.2, [place] # (Auto) 0.9, Eos # (Auto) 0.1, Baso # (Auto) 0.0, Total Counted 100, Neutrophils % (Manual) 91 H, Lymphocytes % (Manual) 6 L, Monocytes % (Manual) 3, Platelet Estimate Normal, RBC Morphology Normal, Sodium 131 L, Potassium 4.8, Chloride 96 L, Carbon Dioxide 14 L, Anion Gap 25.8 H, BUN 13, Creatinine 1.10 H, Estimated Creat Clear 54, Estimated GFR 52 L, Est GFR ( Amer) 62, Glucose 476 H*, Lactate 2.2 H, Calcium 9.2, Total Bilirubin 0.9, AST 32, ALT 33, Alkaline Phosphatase 115, Troponin I < 0.01, Total Protein 8.3 H D, Albumin 4.2, Globulin 4.1 H, Albumin/Globulin Ratio 1.0 L, Lipase 107, TSH 0.41 L, Thyroxine (T4) 9.7, Acetone Level Moderate 07/11/23 19:25: Troponin I < 0.01 07/11/23 20:12: POC Glucose 466 H* 07/11/23 20:55: POC Glucose 485 H* 07/11/23 22:15: Acetone Level Small 07/11/23 22:19: POC Glucose 402 H* 07/11/23 23:05: POC Glucose 418 H* 07/11/23 23:30: Sodium 133 L, Potassium 4.0, Chloride 101, Carbon Dioxide 18 L, Anion Gap 18.0 H, BUN 14, Creatinine 1.20 H, Estimated Creat Clear 50, Estimated GFR 47 L, Est GFR ( Amer) 56 L, Glucose 331 H D, Lactate 1.9, Calcium 8.5, Troponin I 0.02 07/12/23 00:09: POC Glucose 278 H 07/12/23 01:04: POC Glucose 239 H 07/12/23 02:02: POC Glucose 203 H 07/12/23 02:56: POC Glucose 188 H 07/12/23 02:58: Sodium 136, Potassium 3.8, Chloride 103, Carbon Dioxide 20 L, Anion Gap 16.8 H, BUN 16, Creatinine 1.10 H, Estimated Creat Clear 54, Estimated GFR 52 L, Est GFR (A
--- NOTE | 2023-07-12 10:23 | HMH.PHAINT1 ---
Pharmacy Intervention Comments: MEDICATION RECONCILIATION COMPLETE USING EXTERNAL PHARMACY FILL HISTORY, CONFIRMED LANTUS AND HUMALOG DOSING WITH PATIENT.
--- NOTE | 2023-07-12 10:25 | PC.NURSE ---
changed dressing on foot per MD Soria verbal order at bedside, dressing cdi
--- NOTE | 2023-07-12 11:45 | CT_ITS ---
PROCEDURE INFORMATION: Exam: CT Right Lower Extremity Without Contrast, Foot Exam date and time: 07/12/2023 1:21 PM Age: 53 years old Clinical indication: Other: Ulcers; Additional info: Charcot foot, diabetic ulcer, osteo? TECHNIQUE: Imaging protocol: CT of the right lower extremity without contrast was performed. Exam focused on the foot. Radiation optimization: All CT scans at this facility use at least one of these dose optimization techniques: automated exposure control; mA and/or kV adjustment per patient size (includes targeted exams where dose is matched to clinical indication); or iterative reconstruction. REPORTING DATA: Count of CT and Cardiac NM exams in prior 12 months: This patient has received 3 known CTs and 0 known cardiac nuclear medicine studies in the 12 months prior to the current study. COMPARISON: CR XR FOOT RT MIN 3V 01/07/2021 4:12 PM FINDINGS: Bones/joints: Extensive postoperative changes with evidence of prior talocalcaneal, calcaneal cuboid and 1st tarsometatarsal fusion stabilized by orthopedic hardware. Hardware is intact. Bone metal interface is unremarkable. Additional bony fusion within the midfoot, stable. There are no osteolytic or destructive bone changes. There are loose bodies within the anterior posterior ankle recess is presumed degenerative in nature. Soft tissues: Diffuse fatty atrophy throughout the musculature. Focal soft tissue thickening extending from the skin surface to the base of the 3rd MTP joint. No abscess collection detected. IMPRESSION: Extensive postoperative changes from prior arthrodesis right foot. No evidence of hardware failure. No compelling evidence of osteomyelitis.
--- NOTE | 2023-07-12 12:06 | HMH.PTWOUND ---
Rehab Inpt Wound Evaluation Rehab IP Wound Evaluation Start: 07/11/23 20:35 Freq: ONCE Status: Active Protocol: Document 07/12/23 12:01 HERBERT (Rec: 07/12/23 12:06 HERBERT [id number]) Rehab PT Wound Assessment Subjective Subjective 53 yowf adm to [facility] with DKA and sepsis. She has hx of DM, Charcot foot, CKD, CAD, HTN, HLD. and morbid obesity. She presents with an existing wound on the R foot plantar surface at 4th MT. She reports her wound is being treated by a aircraft navigator as an outpatient and is healing steadily. Wound Right Distal Foot Wound Type Diabetic Foot Ulcer Is This a Chronic Wound Yes Superficial wound not involving tendon, w/o infection/ischemia capsule or bone Wound Length (cm) 0.7 Wound Width (cm) 0.7 Wound Depth (cm) 0.1 Wound Bed Appearance Beefy Red,[place] Percentage Granulated (%) 100 Wound Margins Description Well Defined Surrounding Tissue Appearance [place] Primary Dressing Gauze Pad Comment betadine Wound Debridement Amount of Tissue None Removed Dressing Change Patient Tolerance Tolerated Well Plan/Recommendation Comment Continue above dressing changes per nsg staff. No current needs for sharp selective debridement. Eval Complexity Eval Charge Codes 47895 - High Complexity PHYSICIAN CERTIFICATION: I certify the specified therapy services for Bee Colon are required, authorized, and reviewed every 30 days.
--- NOTE | 2023-07-12 12:29 | HMH.ITSTN ---
went to get patient for Ct foot -- pt just got lunch and wanted to wait. advised nurse will come back.
--- NOTE | 2023-07-12 13:32 | EXP.ACUTE.PN ---
Subjective *Date: 07/12/23 *Time: 19:40 Interval history: Patient feeling better this morning but having significant headache. Blood pressure stable. Gap closed by morning rounds. Denies nausea or vomiting. Noted to have redness of right lower extremity. Remove bandage and has clean appearing ulceration on plantar surface of right foot. No drainage or bleeding. Stable on room air. Reports scratches on her leg or from her kittens. Medical Exam Vital signs and Labs for Last 24 Hours: Vital Signs Temp Pulse Pulse Resp BP BP Pulse Ox 07/12/23 11:23 98.8 F 07/12/23 10:00 110 H 14 143/81 H 97 07/12/23 08:00 97 07/12/23 09:00 07/12/23 08:00 108 H 22 151/73 H 98 07/12/23 08:00 100 H 07/12/23 08:07 99.2 F 07/12/23 07:00 07/12/23 06:00 107 H 22 138/83 94 L 07/12/23 04:00 105 H 20 140/76 92 L 07/12/23 02:00 112 H 18 140/92 H 94 L 07/12/23 00:00 113 H 21 103/56 L 95 07/11/23 22:00 113 H 20 114/69 93 L 07/12/23 05:00 07/12/23 03:00 07/12/23 04:00 98.8 F 07/12/23 04:00 110 H 07/12/23 00:00 120 H 07/11/23 21:00 07/12/23 01:00 07/11/23 23:00 07/12/23 00:00 99.1 F 07/11/23 22:05 99.2 F 07/11/23 20:50 98.9 F 120 H 18 110/64 07/11/23 19:31 128 H 24 126/58 L 93 L 07/11/23 19:05 122 H 142/74 H 94 L 07/11/23 17:05 121 H 30 H 134/76 93 L 07/11/23 16:47 100.8 F H 122 H 24 134/76 95 O2 Del Method O2 Flow Rate 07/12/23 11:23 07/12/23 10:00 Nasal Cannula 2 07/12/23 08:00 Nasal Cannula 2 07/12/23 09:00 Nasal Cannula 2 07/12/23 08:00 Room Air 07/12/23 08:00 07/12/23 08:07 07/12/23 07:00 Nasal Cannula 2 07/12/23 06:00 Room Air 07/12/23 04:00 Room Air 07/12/23 02:00 Room Air 07/12/23 00:00 Room Air 07/11/23 22:00 Room Air 07/12/23 05:00 Nasal Cannula 2 07/12/23 03:00 Room Air 07/12/23 04:00 07/12/23 04:00 07/12/23 00:00 07/11/23 21:00 Room Air 07/12/23 01:00 Room Air 07/11/23 23:00 Room Air 07/12/23 00:00 07/11/23 22:05 07/11/23 20:50 Room Air 07/11/23 19:31 Room Air 07/11/23 19:05 Room Air 07/11/23 17:05 07/11/23 16:47 Room Air Intake and Output 07/11/23 07/12/23 07/12/23 23:59 07:59 15:59 Intake Total 0 / 0 Output Total 0 / 0 Balance 0 / 0 Intake: Intake, Oral Amount 0 / 0 Output: Output, Urine Amount 0 / 0 Other: Number of Unmeasured Voids 1 0 Weight 132.494 kg 132.494 kg Patient Weight 07/12/23 23:59 Weight 132.494 kg Laboratory Results - last 24 hr 07/11/23 16:52: POC Glucose 436 H* 07/11/23 17:07: WBC 25.6 H*, RBC 5.20, Hgb 14.2, Hct 44.2, MCV 84.9, MCH 27.3, MCHC 32.2, RDW 15.6, Plt Count 213, MPV 9.7, Neut % (Auto) 91.2 H, Lymph % (Auto) 4.6 L, [place] % (Auto) 3.6, Eos % (Auto) 0.5, Baso % (Auto) 0.2, Neut # (Auto) 23.3 H, Lymph # (Auto) 1.2, [place] # (Auto) 0.9, Eos # (Auto) 0.1, Baso # (Auto) 0.0, Total Counted 100, Neutrophils % (Manual) 91 H, Lymphocytes % (Manual) 6 L, Monocytes % (Manual) 3, Platelet Estimate Normal, RBC Morphology Normal, Sodium 131 L, Potassium 4.8, Chloride 96 L, Carbon Dioxide 14 L, Anion Gap 25.8 H, BUN 13, Creatinine 1.10 H, Estimated Creat Clear 54, Estimated GFR 52 L, Est GFR ( Amer) 62, Glucose 476 H*, Lactate 2.2 H, Calcium 9.2, Total Bilirubin 0.9, AST 32, ALT 33, Alkaline Phosphatase 115, Troponin I < 0.01, Total Protein 8.3 H D, Albumin 4.2, Globulin 4.1 H, Albumin/Globulin Ratio 1.0 L, Lipase 107, TSH 0.41 L, Thyroxine (T4) 9.7, Acetone Level Moderate 07/11/23 19:25: Troponin I < 0.01 07/11/23 20:12: POC Glucose 466 H* 07/11/23 20:55: POC Glucose 485 H* 07/11/23 22:15: Acetone Level Small 07/11/23 22:19: POC Glucose 402 H* 07/11/23 23:05: POC Glucose 418 H* 07/11/23 23:30: Sodium 133 L, Potassium 4.0, Chloride 101, Carbon Dioxide 18 L, Anion Gap 18.0 H, BUN 14, Cr
[2023-07-12 15:29] LABS: Chloride 105 mmol/L (98-107); Potassium 4.5 mmoL/L (3.5-5.1); Sodium 133 mmol/L (136-145)
[2023-07-12 15:32] LABS: Blood Urea Nitrogen 17 mg/dl (7-17); Creatinine Clearance Estimated 60 mL/min (50-200); Estimated Glomerular Filt Rate 58 ml/min (>60); GFR (African American) 70 ML/MIN (>60)
[2023-07-12 15:33] LABS: Anion Gap 16.5 mEq/L (5-15); Calcium 8.6 mg/dl (8.4-10.2); Carbon Dioxide 16 mmol/L (22.0-30.0); Glucose 308 mg/dl (74-100)
[2023-07-12 17:17] LABS: POC Glucose,Bedside 302 (70-110)
[2023-07-12 17:17] LABS: POC Glucose,Bedside 175 (70-110)
[2023-07-12 17:17] LABS: POC Glucose,Bedside 213 (70-110)
[2023-07-12 17:17] LABS: POC Glucose,Bedside 234 (70-110)
[2023-07-12 21:00] LABS: POC Glucose,Bedside 267 (70-110)
[2023-07-12 23:31] LABS: Basophils % 0.3 % (0.1-2.0); Eosinophils # 0.2 K/mm3 (0.0-0.4); Eosinophils % 1.9 % (0.1-12.0); Hematocrit 41.8 % (37.0-47.0); Hemoglobin 13.2 g/dL (12.2-16.2); Lymphocytes # 1.5 K/mm3 (0.7-4.5); Lymphocytes % 13.1 % (10-50); Mean Corpuscular HGB Conc 31.7 g/dL (31.8-35.4); Mean Corpuscular Hemoglobin 26.9 pg (27.0-31.2); Mean Corpuscular Volume 84.7 fl (81-99); Mean Platelet Volume 9.7 fl (7.4-10.4); Monocytes % 8.2 % (1.7-9.3); Neutrophils # 8.9 K/mm3 (1.8-7.8); Neutrophils % 76.4 % (37.0-80.0); Platelet Count 170 K/mm3 (142-424); Red Blood Count 4.93 M/mm3 (4.20-5.40); White Blood Count 11.7 K/mm3 (4.8-10.8)
[2023-07-13] VITALS (10 sets, daily range): BP systolic 101–160; BP diastolic 64–92; PULSE 90–112; RESP 17–20; TEMP 36.5–36.9; O2SAT 94–99; BMI 47.7
[2023-07-13] LABS: Anion Gap 13.7 mEq/L (5-15); Blood Urea Nitrogen 17 mg/dl (7-17); Calcium 8.4 mg/dl (8.4-10.2); Carbon Dioxide 18 mmol/L (22.0-30.0); Chloride 107 mmol/L (98-107); Creatinine Clearance Estimated 60 mL/min (50-200); Estimated Glomerular Filt Rate 58 ml/min (>60); GFR (African American) 70 ML/MIN (>60); Glucose 212 mg/dl (74-100); Potassium 4.7 mmoL/L (3.5-5.1); Sodium 134 mmol/L (136-145)
[2023-07-13 00:45] LABS: Microscopic, Urine URINE MICROSCOPIC (MICROSCOPIC)
[2023-07-13 00:55] LABS: Appearance,Urine CLEAR (Clear); Bilirubin,Urine Negative (Negative); Blood, Urine Negative (Negative); Color,Urine YELLOW (Yellow); Glucose,Urine (UA) 3+ (Negative); Ketones,Urine 1+ (Negative); Leukocyte Esterase,Urine Negative (Negative); Nitrate,Urine Negative (Negative); PH,Urine 5.5 (5.0-8.5); Protein,Urine TRACE (Negative); Specific Gravity, Urine 1.025 (1.005-1.030); Urobilinogen,Urine 0.2 EU/dl (0.2)
[2023-07-13 01:11] LABS: Bacteria,Urine Trace /lpf; WBC,Urine Occasional #/hpf (0-3); Yeast,Urine 3+ /lpf
[2023-07-13 05:15] LABS: POC Glucose,Bedside 280 (70-110)
[2023-07-13 06:27] LABS: Chloride 105 mmol/L (98-107); Potassium 4.6 mmoL/L (3.5-5.1); Sodium 134 mmol/L (136-145)
[2023-07-13 06:29] LABS: Alanine Aminotransferase 43 U/L (12-78); Aspartate Amino Transferase 52 U/L (14-36); Blood Urea Nitrogen 18 mg/dl (7-17); Creatinine Clearance Estimated 60 mL/min (50-200); Estimated Glomerular Filt Rate 58 ml/min (>60); GFR (African American) 70 ML/MIN (>60)
[2023-07-13 06:30] LABS: Albumin Level 3.1 g/dl (3.5-5.0); Albumin/Globulin Ratio 0.9 (1.1-1.8); Alkaline Phosphatase 83 U/L (38-126); Anion Gap 14.6 mEq/L (5-15); Bilirubin,Total 0.4 mg/dl (0.2-1.3); Calcium 8.8 mg/dl (8.4-10.2); Carbon Dioxide 19 mmol/L (22.0-30.0); Globulin 3.5 g/dL (1.3-3.2); Glucose 283 mg/dl (74-100); Total Protein,Serum 6.6 g/dl (6.3-8.2)
[2023-07-13 06:50] LABS: Hemoglobin A1C 10.8 % (4.0-6.0)
[2023-07-13 06:52] LABS: Basophils % 0.2 % (0.1-2.0); Eosinophils # 0.1 K/mm3 (0.0-0.4); Eosinophils % 0.5 % (0.1-12.0); Hematocrit 41.5 % (37.0-47.0); Hemoglobin 12.8 g/dL (12.2-16.2); Lymphocytes # 1.4 K/mm3 (0.7-4.5); Lymphocytes % 11.2 % (10-50); Mean Corpuscular HGB Conc 30.8 g/dL (31.8-35.4); Mean Corpuscular Hemoglobin 26.6 pg (27.0-31.2); Mean Corpuscular Volume 86.3 fl (81-99); Mean Platelet Volume 9.3 fl (7.4-10.4); Neutrophils # 9.8 K/mm3 (1.8-7.8); Neutrophils % 80.1 % (37.0-80.0); Platelet Count 182 K/mm3 (142-424); Red Blood Count 4.81 M/mm3 (4.20-5.40); White Blood Count 12.3 K/mm3 (4.8-10.8)
--- NOTE | 2023-07-13 07:19 | EXP.ACUTE.PN ---
Subjective *Date: 07/13/23 *Time: 20:36 Interval history: Feeling better today but still tachycardic. Tearful on exam given recent loss of both her parents. Concern for anxiety component. No nausea, vomiting, chest pain, shortness of breath. Is complaining of some back pain. Leg with improved redness. Not warm today. Glucose still elevated, discussed adjustments in diabetes regimen today. Medical Exam Vital signs and Labs for Last 24 Hours: Vital Signs Temp Pulse Pulse Resp BP Pulse Ox O2 Del Method 07/13/23 05:48 92 H 07/13/23 04:00 97.9 F 112 H 18 153/92 H 99 Room Air 07/13/23 03:00 Nasal Cannula 07/13/23 01:00 Nasal Cannula 07/13/23 06:25 Nasal Cannula 07/13/23 04:37 Nasal Cannula 07/13/23 00:00 90 07/12/23 20:00 90 07/13/23 00:00 98.5 F 107 H 18 152/85 H 95 Room Air 07/12/23 23:00 Nasal Cannula 07/12/23 21:00 Room Air 07/12/23 19:57 98.4 F 96 H 18 130/78 96 Room Air 07/12/23 19:52 Room Air 07/12/23 14:00 Room Air 07/12/23 18:22 Room Air 07/12/23 18:00 96 H 15 133/78 94 L Room Air 07/12/23 16:00 90 07/12/23 16:00 98.0 F 07/12/23 16:39 Room Air 07/12/23 16:00 93 H 23 140/80 97 Room Air 07/12/23 14:00 107 H 20 121/77 96 Room Air 07/12/23 15:00 Room Air 07/12/23 12:00 110 H 07/12/23 12:00 104 H 17 153/91 H 93 L Room Air 07/12/23 13:00 Room Air 07/12/23 11:00 Room Air 07/12/23 11:23 98.8 F 07/12/23 10:00 110 H 14 143/81 H 97 Nasal Cannula 07/12/23 08:00 97 Nasal Cannula 07/12/23 09:00 Nasal Cannula 07/12/23 08:00 108 H 22 151/73 H 98 Room Air 07/12/23 08:00 100 H 07/12/23 08:07 99.2 F O2 Flow Rate 07/13/23 05:48 07/13/23 04:00 07/13/23 03:00 07/13/23 01:00 2 07/13/23 06:25 2 07/13/23 04:37 2 07/13/23 00:00 07/12/23 20:00 07/13/23 00:00 07/12/23 23:00 2 07/12/23 21:00 07/12/23 19:57 07/12/23 19:52 07/12/23 14:00 07/12/23 18:22 07/12/23 18:00 07/12/23 16:00 07/12/23 16:00 07/12/23 16:39 07/12/23 16:00 07/12/23 14:00 07/12/23 15:00 07/12/23 12:00 07/12/23 12:00 07/12/23 13:00 07/12/23 11:00 07/12/23 11:23 07/12/23 10:00 2 07/12/23 08:00 2 07/12/23 09:00 2 07/12/23 08:00 07/12/23 08:00 07/12/23 08:07 Intake and Output 07/12/23 07/12/23 07/13/23 15:59 23:59 07:59 Intake Total 0 / 499 379 / 499 120 / 120 Output Total 300 / 1050 0 / 1050 950 / 950 Balance -300 / -551 379 / -551 -830 / -830 Intake: Intake, Oral Amount 0 / 120 120 / 120 Intake, Other Amount 20 / 20 Intake, Total IV Amount 359 / 359 Vancomycin/Water For Inj (Peg) 359 / 359 1.75 gm In 350 ml @ 175 mls/hr IV Q12H [facility] Rx#:[id number] Output: Output, Urine Amount 300 / 1050 0 / 1050 950 / 950 Other: Intake, Other Source Saline Solution Number of Unmeasured Voids 0 0 Weight 132.494 kg 134.802 kg Patient Weight 07/13/23 23:59 Weight 134.802 kg Laboratory Results - last 24 hr 07/12/23 06:53: WBC 17.8 H D, RBC 5.10, Hgb 13.8, Hct 42.9, MCV 84.1, MCH 27.0, MCHC 32.1, RDW 15.8, Plt Count 192, MPV 9.0, Neut % (Auto) 88.8 H, Lymph % (Auto) 5.3 L, [place] % (Auto) 5.7, Eos % (Auto) 0.1, Baso % (Auto) 0.1, Neut # (Auto) 15.8 H, Lymph # (Auto) 1.0, [place] # (Auto) 1.0, Eos # (Auto) 0.0, Baso # (Auto) 0.0, Total Counted 100, Neutrophils % (Manual) 86 H, Lymphocytes % (Manual) 5 L, Monocytes % (Manual) 9, Platelet Estimate Normal, RBC Morphology Normal, Sodium 138 07/12/23 06:53: Sodium 137, Potassium 3.8 07/12/23 06:53: Potassium 3.8, Chloride 105 07/12/23 06:53: Chloride 105, Carbon Dioxide 21 L 07/12/23 06:53: Carbon Dioxide 21 L, Anion Gap 15.8 H 07/12/23 06:53: Anion Gap 14.8, BUN 16 07/12/23 06:53: BUN 16, Creatinine 1.10 H 07/12/23 06:53: Creatinine 1.10 H, Estimated Creat Clear 54 07/12/23 0
[2023-07-13 08:04] LABS: VBG Base Excess -9.3 mmol/L (-2.4-2.3); VBG HCO3 16.3 mmol/L (23-30); VBG Oxygen Saturation 99.2 % (50-70); VBG PCO2 30.2 mmol/L (35-51); VBG PH 7.35 mmol/L (7.31-7.41); VBG PO2 171.2 mmol/L (28-40); VBG Total CO2 17.2 mmol/L (23-27)
[2023-07-13 08:56] LABS: Vancomycin,Trough 18.5 ug/mL (5.0-10.0)
--- NOTE | 2023-07-13 09:58 | EXP.PHA.CONS ---
Pharmacy Consult Date: 07/13/23 Time: 09:58 Referring provider: DR. MOREJON Reason for Consult:: VANCOMYCIN LEVEL Allergies Allergy/AdvReac Type Severity Reaction Status Date / Time amoxicillin [AMOXICILLIN] Allergy Unknown Unknown Verified 02/20/21 13:10 allergy reaction codeine [CODEINE] AdvReac Mild STOMACH Verified 02/20/21 13:10 CRAMPS morphine [MORPHINE] AdvReac Mild STOMACH Verified 02/20/21 13:10 CRAMPS oxycodone [From Percocet] AdvReac Mild STOMACH Verified 02/20/21 13:10 CRAMPS Home Medications Medication Instructions Recorded Confirmed Type aspirin 81 mg chewable tablet 81 mg PO AM HEART HEALTH 04/08/19 07/12/23 History ezetimibe 10 mg tablet 10 mg PO HS Cholesterol 03/06/20 07/12/23 History duloxetine 60 mg capsule,delayed 60 mg PO BID MOOD 07/02/20 07/12/23 History release liraglutide 0.6 mg/0.1 mL (18 mg/3 1.8 mg SQ AM Diabetes 30 days #9 mL 09/17/20 07/12/23 History mL) subcutaneous pen injector dapagliflozin propanediol 10 mg 10 mg PO AM Diabetes 11/01/20 07/12/23 History tablet insulin glargine 100 unit/mL (3 80 unit SQ HS Diabetes 11/01/20 07/12/23 History mL) subcutaneous pen isosorbide mononitrate 60 mg 60 mg PO AM Chest Pain 12/14/20 07/12/23 History tablet,extended release 24 hr pregabalin 200 mg capsule 200 mg PO BID NEUROPATHY 12/14/20 07/12/23 History ramipril 5 mg capsule 5 mg PO AM Hypertension 01/07/21 07/12/23 History spironolactone 25 mg tablet 25 mg PO DAILY Fluid 02/05/21 07/12/23 History rosuvastatin 20 mg tablet 20 mg PO AM Cholesterol 02/14/21 07/12/23 History trazodone 100 mg tablet 100 mg PO HS SLEEP 02/14/21 07/12/23 History hydrocodone 10 mg-acetaminophen 1 tab PO Q6HP PRN Moderate Pain 07/12/23 07/12/23 History 325 mg tablet (Scale Score 5-6) insulin lispro 100 unit/mL 24 unit SQ AC Diabetes 07/12/23 07/12/23 History subcutaneous pen lorazepam 0.5 mg tablet 0.5 mg PO TIDP PRN Anxiety 07/12/23 07/12/23 History rivaroxaban 2.5 mg tablet (Xarelto) 2.5 mg PO BID Blood Thinner 07/12/23 07/12/23 History New Prescriptions to Start Prescriptions: Height: 1.68 m Weight: 134.802 kg Laboratory Results:: Laboratory Results - last 24 hr 07/11/23 17:32: VBG pH 7.35, VBG pCO2 30.2 L, VBG pO2 171.2 H, VBG HCO3 16.3 L, VBG Total CO2 17.2 L, VBG O2 Saturation 99.2 H, VBG Base Excess -9.3 L 07/12/23 08:20: POC Glucose 175 H 07/12/23 09:25: POC Glucose 213 H 07/12/23 11:36: POC Glucose 234 H 07/12/23 15:15: Sodium 133 L, Potassium 4.5, Chloride 105, Carbon Dioxide 16 L, Anion Gap 16.5 H, BUN 17, Creatinine 1.00, Estimated Creat Clear 60, Estimated GFR 58 L, Est GFR ( Amer) 70, Glucose 308 H D, Calcium 8.6 07/12/23 16:31: POC Glucose 302 H* 07/12/23 20:03: POC Glucose 267 H 07/12/23 23:15: WBC 11.7 H D, RBC 4.93, Hgb 13.2, Hct 41.8, MCV 84.7, MCH 26.9 L, MCHC 31.7 L, RDW 16.0, Plt Count 170, MPV 9.7, Neut % (Auto) 76.4, Lymph % (Auto) 13.1, [place] % (Auto) 8.2, Eos % (Auto) 1.9, Baso % (Auto) 0.3, Neut # (Auto) 8.9 H, Lymph # (Auto) 1.5, [place] # (Auto) 1.0, Eos # (Auto) 0.2, Baso # (Auto) 0.0, Sodium 134 L, Potassium 4.7, Chloride 107, Carbon Dioxide 18 L, Anion Gap 13.7, BUN 17, Creatinine 1.00, Estimated Creat Clear 60, Estimated GFR 58 L, Est GFR ( Amer) 70, Glucose 212 H D, Calcium 8.4 07/13/23 05:03: POC Glucose 280 H 07/13/23 05:20: WBC 12.3 H, RBC 4.81, Hgb 12.8, Hct 41.5, MCV 86.3, MCH 26.6 L, MCHC 30.8 L, RDW 16.0, Plt Count 182, MPV 9.3, Neut % (Auto) 80.1 H, Lymph % (Auto) 11.2, [place] % (Auto) 8.0, Eos % (Auto) 0.5, Baso % (Auto) 0.2, Neut # (Auto) 9.8 H, Lymph # (Auto) 1.4, [place] # (Auto) 1.0, Eos # (Auto) 0.1, Baso # (Auto) 0.0, Sodium 134 L, Potassium 4.6, Chloride 105, Carbon Dioxide 19 L, Anion Gap 14.6, BUN 18 H, Creatinine 1.00, Estimated Creat Clear 60, Estimated GFR 58 L, Est GFR ( Amer) 70, Glucose 283 H D, Hemoglobin A1c 10.8 H D, Calcium 8.8, Magnesium 2.0, Total Bilirubin 0.4, AST 52 H, ALT 43, Alkaline Phosphatase 83, Total Pr
[2023-07-13 11:04] LABS: POC Glucose,Bedside 244 (70-110)
--- NOTE | 2023-07-13 12:54 | ECG_ITS ---
APPROVED REPORT Exam: Resting ECG HR:100 bpm ECG Measurements Heart Rate 100 AXES AR 360 P 25 QRSd 97 QRS -10 QT 336 T 51 QTc 393 Conclusion ELECTRONIC ATRIAL PACEMAKER ELECTRONIC VENTRICULAR PACEMAKER ABNORMAL RHYTHM ECG UNCONFIRMED REPORT Electronically signed by : Apolinar Odonnell MD 07/14/2023 17:21:24
--- NOTE | 2023-07-13 13:52 | HMH.PTEV ---
Physical Therapy Evaluation Rehab PT IP Evaluation Start: 07/13/23 11:06 Freq: ONCE Status: Active Protocol: Document 07/13/23 13:46 PHORINGRID (Rec: 07/13/23 13:51 PHORNE [id number]) Subjective/History History History 53 yowf adm to [facility] with DKA and sepsis. She has hx of morbid obesity with poorly controlled type 2 diabetes, Charcot foot with chronic foot wound; CKD, CAD status post stenting, HLD, HTN, prior L foot TMA. She reports SHe lives alone, 2 steps to enter the home, and she uses a cane for all ambulation at baseline . Subjective Subjective Pt reports she feels a little stonger today, but I still feel pretty bad overall. Rehab PT IP Eval Objective Appearance Patient Behavior Appropriate Patient Orientation Person,Place,Time Difficulty following instructions none Speech Pattern Clear Ambulation Patient Able to Ambulate Yes Ambulation Observation IP General Gait Pattern Observation Shuffling Step Ambulation Distance (feet) 3 Ambulation Assistive Device Rolling Walker Ambulation Ability Contact Guard/Hand Hold Balance Ability to Arise Able, uses arms to help Sitting Balance Steady, safe Standing Balance Steady, wide stance Dynamic Sitting Balance Ability Good Dynamic Standing Balance Ability Fair Transfers Bed Transfer Ability Supervision/Stand by Chair Transfer Ability Contact Guard/Hand Hold Sit to Stand Bed Transfer Ability Contact Guard/Hand Hold Sit to Stand Chair Transfer Ability Contact Guard/Hand Hold Rehab PT IP prob,goals,plan Problems Date of Evaluation: 07/13/23 PT IP Problems Bed Mobility,Transfers,Gait Rehab Potential Rehab Potential Good Plan PT Intervention Plan Bed Mobility,Transfers,Gait, Therapeutic Exercise PT Plan Frequency Daily Duration LOS Discharge Goals Bed Transfer Ability Independent Sit to Stand Chair Transfer Ability Supervision/Stand by Ambulation Assistive Device Straight Cane Ambulation Distance (feet) 20 Discharge Plan PT Discharge Plan Pt is currently appropriate to return home once medically stable for d/c. G -code Required No Eval Complexity Eval Charge Codes
[2023-07-13 14:05] LABS: Vancomycin,Peak 36.3 ug/ml (11-39)
--- NOTE | 2023-07-13 15:48 | HMH.OTEV ---
OT Inpatient Evaluation Rehab OT IP Evaluation Start: 07/13/23 11:06 Freq: ONCE Status: Active Protocol: Document 07/13/23 15:43 [facility] (Rec: 07/13/23 15:47 [facility] [id number]) Rehab OT IP Assessment Subjective History Pt oriented x 3 on arrival. Pt agreeable to engage in therapy session. Pt is a 53 yowf adm to [facility] with DKA and sepsis. She has hx of morbid obesity with poorly controlled type 2 diabetes, Charcot foot with chronic foot wound; CKD, CAD status post stenting, HLD , HTN, prior L foot TMA. She reports SHe lives alone, 2 steps to enter the home, and she uses a cane for all ambulation at baseline. Pt also claims she is independent with all ADLs and IADLs. She also still drives. Subjective I feel better than I did yesterday. Pt reports still feeling weak. Objective Patient Orientation Person,Place,Birthday Upper Extremity Gross ROM WFL Bed Mobility bed mobility-scooting,bed mobility - supine/sit,bed mobility - rolling Assist Level Contact Guard/Hand Hold Transfer Training Sit/Stand Transfer Assist Level Contact Guard/Hand Hold Chair Transfer Ability Contact Guard/Hand Hold Chair Transfer Technique Stand Step Pivot Chair Transfer Assistive Devices Straight Cane Rehab OT IP prob,goals,plan Problems Date of Evaluation: 07/13/23 OT IP Problems Bed Mobility,Transfers,Balance ,Self care,Safety Rehab Potential Rehab Potential Good Equipment Needs Assistive Devices Straight Cane Plan OT intervention Plan Bed Mobility,Transfers,Balance ,Self care,Safety,Therapeutic Exercise OT Plan Frequency BID Duration LOS Discharge Goals Bed Mobility Ability Standby Assistance Sit to Stand Chair Transfer Ability Supervision/Stand by Chair Transfer Ability Supervision/Stand by Chair Transfer Technique Sit to/from Ambulatory Chair Transfer Assistive Devices Straight Cane Feeding Ability Assist with Tray Set Up Lower Body Dressing Ability Assistance X
[2023-07-13 16:34] LABS: POC Glucose,Bedside 217 (70-110)
[2023-07-13 20:10] LABS: POC Glucose,Bedside 242 (70-110)
[2023-07-14] VITALS (7 sets, daily range): BP systolic 105–147; BP diastolic 65–86; PULSE 80–108; RESP 16–22; TEMP 36.6–36.9; O2SAT 95–99; BMI 47.2
[2023-07-14 06:17] LABS: Chloride 109 mmol/L (98-107); Potassium 4.2 mmoL/L (3.5-5.1); Sodium 138 mmol/L (136-145)
[2023-07-14 06:18] LABS: POC Glucose,Bedside 187 (70-110)
[2023-07-14 06:20] LABS: Alanine Aminotransferase 31 U/L (12-78); Albumin Level 2.9 g/dl (3.5-5.0); Albumin/Globulin Ratio 0.9 (1.1-1.8); Alkaline Phosphatase 80 U/L (38-126); Anion Gap 13.2 mEq/L (5-15); Aspartate Amino Transferase 26 U/L (14-36); Bilirubin,Total 0.3 mg/dl (0.2-1.3); Blood Urea Nitrogen 21 mg/dl (7-17); Calcium 9.2 mg/dl (8.4-10.2); Carbon Dioxide 20 mmol/L (22.0-30.0); Creatinine Clearance Estimated 54 mL/min (50-200); Estimated Glomerular Filt Rate 52 ml/min (>60); GFR (African American) 62 ML/MIN (>60); Globulin 3.2 g/dL (1.3-3.2); Glucose 196 mg/dl (74-100); Total Protein,Serum 6.1 g/dl (6.3-8.2)
[2023-07-14 06:21] LABS: Magnesium 1.9 mg/dl (1.6-2.3)
[2023-07-14 06:31] LABS: Basophils % 0.2 % (0.1-2.0); Eosinophils # 0.2 K/mm3 (0.0-0.4); Eosinophils % 2.3 % (0.1-12.0); Hematocrit 38.3 % (37.0-47.0); Lymphocytes # 1.9 K/mm3 (0.7-4.5); Lymphocytes % 23.3 % (10-50); Mean Corpuscular HGB Conc 31.4 g/dL (31.8-35.4); Mean Corpuscular Hemoglobin 27.4 pg (27.0-31.2); Mean Corpuscular Volume 87.2 fl (81-99); Mean Platelet Volume 9.2 fl (7.4-10.4); Monocytes # 0.6 K/mm3 (0.1-1.0); Monocytes % 7.6 % (1.7-9.3); Neutrophils # 5.4 K/mm3 (1.8-7.8); Neutrophils % 66.6 % (37.0-80.0); Platelet Count 205 K/mm3 (142-424); Red Blood Count 4.39 M/mm3 (4.20-5.40); Red Cell Distribution Width 16.1 % (11.5-17.5)
--- NOTE | 2023-07-14 07:04 | PC.NURSE ---
NO ACUTE CHANGES THIS SHIFT. VSS. HAS RESTED WELL.
--- NOTE | 2023-07-14 10:24 | EXP.DC.SUM ---
General Admission date:: 07/11/23 Discharge date: 07/14/23 HPI HPI HPI: Forwarded from Admission H&P: HPI: This is a 53-year-old female with extensive medical history including but not limited to morbidly obesity with poorly controlled type 2 diabetes, Charcot foot with chronic foot wound; CKD, CAD status post stenting, HLD, HTN presented to the emergency department for evaluation.? She is c/o chills, nausea, excessive thirsty, and has had high blood sugar readings. everything started yesterday. Patient also reported, increased weakness, that stopped her to perform her daily activity, that is when family member decided to call EMS. Patient denies fevers, chills, chest pain, shortness of breath, vomiting, hematochezia, melena, rashes, or swelling.? Patient was brought to ER. Admitted for treatment. Plan: 53-year-old female with extensive medical history including but not limited to morbidly obesity with poorly controlled type 2 diabetes, Charcot foot with chronic foot wound; CKD, CAD status post stenting, HLD, HTN, c/o chills, nausea, excessive thirsty, and has had high blood sugar readings. everything started yesterday. at ER sepsis work up was conducted. patient found with severe leukocytosis, met criteria of sepsis. elevated BS, with open anion gap, consistent with DKA. CT of the family was showing right lymphoadenopathy, more likely secondary to diabetes ulcer. Discussion made with the ER doctor to review for admission. Patient was admitted. -Sepsis likely secondary to left foot infected diabetic ulcer: Admit patient for medical surgical stepdown. Continuing vital sign monitoring per unit protocol. Including temperature within organ dysfunction symptoms. Patient hemodynamically stable. Vancomycin and Zosyn was started. Blood culture pending. Continue to monitor lab. -DKA: On insulin drip. on DKA protocol. continue IV fluid. monitor BMP q4h. accucheck. -Diabetic wound to the right foot: PT consulted for assessment and treatment. wound care per recommendation. keep dressing change as needed. -HTN, CKD: reconcile home meds. on aspirin and statin. monitor renal function. strict I/Os. avoid nephrotoxic pharmacy to monitor vanco. -Morbidly obese: education provided for diet and lifestyles modifications. PCP to follow up for abnormal BMI Hospital Course Hospital Course Hospital Course: #sepsis secondary to infected diabetic foot ulcer #DKA The patient received IV fluids and 2 days of vancomycin IV and Zosyn. She also received insulin drip for DKA; her anion gap closed and by the day of discharge she was eating well and her blood sugar levels were controlled. Her tachycardia and leuckocytosis resolved. She was discharged without any change to her insulin regimen. She was prescribed 8 days of levofloxacin and clindamycin and she will follow up with her PCP in 8 days and her Cyber Incident Handler in 10 days. She already has an offloading boot and supplies for wound cleansing/dressing. Exam Data for Last 24 hours Vital signs and Labs for Last 24 Hours: Temp Pulse Resp BP Pulse Ox O2 Del Method O2 Flow Rate 97.9 F 100 H 16 139/86 99 Room Air 2 07/14/23 07:13 07/14/23 08:00 07/14/23 07:13 07/14/23 07:13 07/14/23 07:13 07/14/23 09:00 07/13/23 11:26 Laboratory Results - last 24 hr 07/13/23 10:48: POC Glucose 244 H 07/13/23 13:13: Vancomycin Peak 36.3 07/13/23 16:21: POC Glucose 217 H 07/13/23 19:57: POC Glucose 242 H 07/14/23 05:50: WBC 8.0 D, RBC 4.39, Hgb 12.0 L, Hct 38.3, MCV 87.2, MCH 27.4, MCHC 31.4 L, RDW 16.1, Plt Count 205, MPV 9.2, Neut % (Auto) 66.6, Lymph % (Auto) 23.3, Newberry % (Auto) 7.6, Eos % (Auto) 2.3, Baso % (Auto) 0.2, Neut # (Auto) 5.4, Lymph # (Auto) 1.9, Newberry # (Auto) 0.6, Eos # (Auto) 0.2, Baso # (Auto) 0.0, Sodium 138, Potassium 4.2, Chloride 109 H, Carbon Dioxide 20 L, Anion Gap 13.2, BUN 21 H, Creatinine 1.10 H, Estimated Creat Clear 54, Estimated GFR 52 L, Est GFR ( Amer) 62, Glucose
[2023-07-14 11:17] LABS: POC Glucose,Bedside 227 (70-110)
[2023-07-14 17:32] LABS: POC Glucose,Bedside 127 (70-110)
--- NOTE | 2023-07-16 13:57 | CARE MANAGER ---
Contacted patient related to hospital discharge. She picked up medications and made her follow up appointments. Denies questions or concerns. GRETA Fay
== END 2023-07-14 18:07 | disposition home or self-care (01) | DRG 871 ==
LOC: ER 17:12 → 2ND 20:08
PROVIDERS: Nurse Practitioner Family; Admitting Provider Internal Medicine Adolescent Medicine; Emergency Provider Emergency Medicine; Visit Provider Internal Medicine Adolescent Medicine
DX: A41.9 Sepsis, unspecified organism (principal); E11.10 Type 2 diabetes mellitus with ketoacidosis without coma; Z68.42 Body mass index [BMI] 45.0-49.9, adult; L03.115 Cellulitis of right lower limb; I25.10 Atherosclerotic heart disease of native coronary artery without angina pectoris; Z95.5 Presence of coronary angioplasty implant and graft; Z87.891 Personal history of nicotine dependence; E11.621 Type 2 diabetes mellitus with foot ulcer; E11.610 Type 2 diabetes mellitus with diabetic neuropathic arthropathy; E11.40 Type 2 diabetes mellitus with diabetic neuropathy, unspecified; E11.22 Type 2 diabetes mellitus with diabetic chronic kidney disease; N18.31 Chronic kidney disease, stage 3a; E78.5 Hyperlipidemia, unspecified; E66.01 Morbid (severe) obesity due to excess calories
CPT/HCPCS: 36415; 70450; 71275; 73700; 74177; 80048; 80053; 80202; 81001; 82009; 82803; 82962; 83036; 83605; 83690; 83735; 84436; 84443; 84484; 85007; 85025; 87040; 93005; 97163; 97166; 99291; J1956; J2405; J2543; J3370; Q9967

== ENCOUNTER → 2023-09-11 13:09 | Outpatient (CLI) | payer MEDICARE, BC, SELFPAY ==
[2023-09-11 13:25] LABS: Basophils % 0.3 % (0.1-2.0); Eosinophils # 0.2 K/mm3 (0.0-0.4); Eosinophils % 1.4 % (0.1-12.0); Hematocrit 40.3 % (37.0-47.0); Hemoglobin 13.4 g/dL (12.2-16.2); Lymphocytes # 1.8 K/mm3 (0.7-4.5); Lymphocytes % 13.8 % (10-50); Mean Corpuscular HGB Conc 33.2 g/dL (31.8-35.4); Mean Corpuscular Hemoglobin 28.2 pg (27.0-31.2); Mean Platelet Volume 9.2 fl (7.4-10.4); Monocytes # 0.5 K/mm3 (0.1-1.0); Monocytes % 3.9 % (1.7-9.3); Neutrophils # 10.7 K/mm3 (1.8-7.8); Neutrophils % 80.6 % (37.0-80.0); Platelet Count 258 K/mm3 (142-424); Red Blood Count 4.75 M/mm3 (4.20-5.40); Red Cell Distribution Width 15.7 % (11.5-17.5); White Blood Count 13.3 K/mm3 (4.8-10.8)
[2023-09-11 14:18] LABS: Chloride 103 mmol/L (98-107)
[2023-09-11 14:19] LABS: Potassium 4.6 mmoL/L (3.5-5.1); Sodium 138 mmol/L (136-145)
[2023-09-11 14:22] LABS: Anion Gap 15.6 mEq/L (5-15); Blood Urea Nitrogen 17 mg/dl (7-17); Calcium 8.8 mg/dl (8.4-10.2); Carbon Dioxide 24 mmol/L (22.0-30.0); Estimated Glomerular Filt Rate 65 ml/min (>60); GFR (African American) 79 ML/MIN (>60); Glucose 378 mg/dl (74-100)
== END ==
PROVIDERS: PCP Internal Medicine; Visit Provider Surgery
DX: I70.211 Atherosclerosis of native arteries of extremities with intermittent claudication, right leg (principal); L97.519 Non-pressure chronic ulcer of other part of right foot with unspecified severity
CPT/HCPCS: 36415; 80048; 85025

== ENCOUNTER → 2023-10-05 16:38 | Outpatient (CLI) | payer MEDICARE, BC, SELFPAY ==
[2023-10-05 17:14] LABS: Basophils % 0.3 % (0.1-2.0); Eosinophils # 0.2 K/mm3 (0.0-0.4); Eosinophils % 1.5 % (0.1-12.0); Hematocrit 38.6 % (37.0-47.0); Hemoglobin 12.7 g/dL (12.2-16.2); Lymphocytes # 2.3 K/mm3 (0.7-4.5); Lymphocytes % 21.8 % (10-50); Mean Corpuscular Hemoglobin 27.6 pg (27.0-31.2); Mean Corpuscular Volume 83.6 fl (81-99); Mean Platelet Volume 9.3 fl (7.4-10.4); Monocytes # 0.6 K/mm3 (0.1-1.0); Monocytes % 5.6 % (1.7-9.3); Neutrophils # 7.6 K/mm3 (1.8-7.8); Neutrophils % 70.9 % (37.0-80.0); Platelet Count 239 K/mm3 (142-424); Red Blood Count 4.62 M/mm3 (4.20-5.40); Red Cell Distribution Width 15.7 % (11.5-17.5); White Blood Count 10.7 K/mm3 (4.8-10.8)
[2023-10-05 18:19] LABS: Alanine Aminotransferase 19 U/L (12-78); Albumin Level 3.8 g/dl (3.5-5.0); Albumin/Globulin Ratio 1.2 (1.1-1.8); Alkaline Phosphatase 73 U/L (38-126); Anion Gap 14.5 mEq/L (5-15); Aspartate Amino Transferase 22 U/L (14-36); Bilirubin,Total 0.2 mg/dl (0.2-1.3); Blood Urea Nitrogen 22 mg/dl (7-17); Calcium 9.4 mg/dl (8.4-10.2); Carbon Dioxide 25 mmol/L (22.0-30.0); Chloride 103 mmol/L (98-107); Chol/HDL Ratio 3.4 (1-3.5); Cholesterol 101 mg/dl (140-200); Estimated Glomerular Filt Rate 52 ml/min (>60); GFR (African American) 62 ML/MIN (>60); Globulin 3.1 g/dL (1.3-3.2); Glucose 194 mg/dl (74-100); HDL Cholesterol 30 mg/dl (40-60); Potassium 4.5 mmoL/L (3.5-5.1); Sodium 138 mmol/L (136-145); Total Protein,Serum 6.9 g/dl (6.3-8.2); Triglycerides 168 mg/dl (30-150); VLDL Cholesterol 34 mg/dL (0-40)
[2023-10-05 21:11] LABS: Hemoglobin A1C 9.2 % (4.0-6.0)
== END ==
PROVIDERS: PCP Internal Medicine; Visit Provider Internal Medicine
DX: E11.59 Type 2 diabetes mellitus with other circulatory complications (principal); E11.42 Type 2 diabetes mellitus with diabetic polyneuropathy; E78.5 Hyperlipidemia, unspecified; I25.118 Atherosclerotic heart disease of native coronary artery with other forms of angina pectoris; I50.22 Chronic systolic (congestive) heart failure; Z79.4 Long term (current) use of insulin; Z79.84 Long term (current) use of oral hypoglycemic drugs; Z87.891 Personal history of nicotine dependence
CPT/HCPCS: 80053; 80061; 83036; 85025

== ENCOUNTER 2023-10-14 22:17 | Emergency (ER) | payer MEDICARE, SELFPAY ==
[2023-10-14 22:18] VITALS: BP 132/78; PULSE 96; RESP 17; TEMP 37.1; O2SAT 98; BMI 46.7
--- NOTE | 2023-10-14 23:00 | HMH.EDGENADL ---
Discharge Plan Disposition Patient Disposition: Home, Self-Care Condition: Good Prescriptions Prescriptions: No Action liraglutide 0.6 mg/0.1 mL (18 mg/3 mL) pen injector 1.8 mg SQ AM 30 Days Qty: 9 Patient Comments: duloxetine 60 mg capsule,delayed release(DR/EC) 60 mg PO BID dapagliflozin propanediol 10 mg tablet 10 mg PO AM ezetimibe 10 mg tablet 10 mg PO HS rosuvastatin 20 mg tablet 20 mg PO AM trazodone 100 mg tablet 100 mg PO HS lamotrigine [Lamictal] 25 mg tablet See Rx Instructions PO .COMPLEX Qty: 42 0RF Rx Instructions: take 1 tablet for 2 weeks; take 2 tablets daily PO ; insulin glargine 100 unit/mL (3 mL) insulin pen 80 unit SQ HS pregabalin 200 MG capsule 200 mg PO BID isosorbide mononitrate 60 MG tablet extended release 24 hr 60 mg PO AM aspirin 81 MG tablet,chewable 81 mg PO AM ramipril 5 MG capsule 5 mg PO AM spironolactone 25 MG tablet 25 mg PO DAILY Xarelto 2.5 mg Tablet 2.5 mg PO BID hydrocodone-acetaminophen 10-325 mg tablet 1 tab PO Q6HP PRN (Reason: Moderate Pain (Scale Score 5-6)) lorazepam 0.5 mg tablet 0.5 mg PO TIDP PRN (Reason: Anxiety) insulin lispro 100 unit/mL insulin pen 24 unit SQ AC levofloxacin 750 mg tablet 750 mg PO DAILY 8 Days Qty: 8 0RF Referrals Follow up/Referrals: Diego Lynch MD [Primary Care Provider] - See instructions Activity Restrictions/Add. Instructions Additional Instructions/Restrictions: You were evaluated in the emergency department today. Please follow-up closely with your primary care provider. Keep an eye on your blood sugar at home and use your medications at home as prescribed. Return to the emergency department for new or worsening symptoms. Clinical Impressions Clinical Impression: Soft tissue infection, Diabetes Instructions Patient Instructions: DI for Cellulitis -- Adult Discharge ED Provider: Marco A Barnes General Adult HPI <Marco A Barnes MD - Last Filed: 10/14/23 23:11> General Chief complaint: Skin/Abscess/Foreign Body Stated complaint: sores on right leg Time Seen by Provider: 10/14/23 22:30 History of Present Illness HPI narrative: Patient is a 53-year-old with past medical history of poorly controlled diabetes who presents emergency department for evaluation of right lower extremity redness and skin lesion. History is obtained by patient at bedside. Patient has chronic scars over her right lower leg from cat scratches, none of which are new. She also has a history of a diabetic ulcer that is being managed outpatient is improving on the dorsal aspect of her right foot. 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 Over the course of the last 24 hours she has had a wound with surrounding erythema over her medial distal leg. Sugars have been running in the high 200s today, no other acute complaints at this time. Related Data Home Medications Medication Instructions Recorded Confirmed aspirin 81 mg chewable tablet 81 mg PO AM HEART HEALTH 04/08/19 09/22/23 ezetimibe 10 mg tablet 10 mg PO HS Cholesterol 03/06/20 09/22/23 duloxetine 60 mg capsule,delayed 60 mg PO BID MOOD 07/02/20 09/22/23 release liraglutide 0.6 mg/0.1 mL (18 mg/3 1.8 mg SQ AM Diabetes 30 days #9 mL 09/17/20 09/22/23 mL) subcutaneous pen injector dapagliflozin propanediol 10 mg 10 mg PO AM Diabetes 11/01/20 09/22/23 tablet insulin glargine 100 unit/mL (3 80 unit SQ HS Diabetes 11/01/20 09/22/23 mL) subcutaneous pen isosorbide mononitrate 60 mg 60 mg PO AM Chest Pain 12/14/20 09/22/23 tablet,extended release 24 hr pregabalin 200 mg capsule 200 mg PO BID NEUROPATHY 12/14/20 09/22/23 ramipril 5 mg capsule 5 mg PO AM Hypertension 01/07/21 09/22/23 spironolactone 25 mg tablet 25 mg PO DAILY Fluid 02/05/21 09/22/23 rosuvastatin 20 mg tablet 20 mg PO AM Cholesterol 02/14/21 09/22/23 trazodone 100 mg tablet 100 mg PO HS SLEEP 02/14/21 09/22/23 hydrocodone 10 mg-acetaminophen 1 tab PO Q6HP PRN Moderate Pain 07/12/23 09/22/23 325 mg tablet (Scale Score 5-6) insulin lispro 100 unit/mL 24 unit SQ AC Diabetes 07/12/23 09/22/23 subcutaneous pen lorazepam 0.5 mg tablet 0.5 mg PO TIDP PRN Anxiety 07/12/23 09/22/23 rivaroxaban 2.5 mg tablet (Xarelto) 2.5 mg PO BID Blood Thinner 07/12/23 09/22/23 Previous Rx's Medication Instructions Recorded levofloxacin 750 mg tablet 750 mg PO DAILY 8 days #8 tabs 07/14/23 lamotrigine 25 mg tablet (Lamictal) See Rx Instructions PO .COMPLEX 10/01/23 #42 tabs Allergies Allergy/AdvReac Type Severity Reaction Status Date / Time amoxicillin [AMOXICILLIN] Allergy Unknown Unknown Verified 09/22/23 13:12 allergy reaction codeine [CODEINE] AdvReac Mild STOMACH Verified 09/22/23 13:12 CRAMPS morphine [MORPHINE] AdvReac Mild STOMACH Verified 09/22/23 13:12 CRAMPS oxycodone [From Percocet] AdvReac Mild STOMACH Verified 09/22/23 13:12 CRAMPS <Elidia Castellon DO - Last Filed: 10/15/23 01:25> General Mode of Arrival: Ambulatory Source of Information: Patient Limitations: No Limitations Description of Symptoms (Recalled from ER Triage Doc. by RN): Patient reports that she took her sock off of her right leg today and noted open wounds to the inner aspect of her lower leg/ankle area. Patient had had fluid filled vesicles in the past but nothing that had broken the sink. Patient states she called her primary care provider and they asked her to come to the emergency department. Patient reports no pain, states her blood sugar has been running high due to a medication that she recently stopped. [facility] <Marco A Barnes MD - Last Filed: 10/14/23 23:11> [facility] 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 (Updated 10/14/23 @ 23:11 by Marco A Barnes MD) Anemia CAD (coronary artery disease) Essential hypertension HTN (hypertension) Hyperlipemia Recurrent major depression resistant to treatment Type 2 diabetes mellitus with diabetic neuropathy, with long-term current use of insulin Vitamin D deficiency Surgical History (Updated 09/12/23 @ 00:01 by Jacob Eng) History of appendectomy History of cholecystectomy History of foot surgery History of hand surgery History of hysterectomy Social History (Updated 09/08/23 @ 10:31 by YIFAN Vicente Smoking Status: Never smoker smoking status stop date: 07/17/2023 second hand exposure: No alcohol intake: never counseling given: No substance use type: denies use counseling given: No current occupational status: disabled Travel in the last 8 weeks: None adopted: No caregiver/support person: No foster care: No household members: children housing: house lives independently: Yes marital status: number of children: 1 number of grandchildren: 0 education level: high school 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; 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 current occupational exposures/hazards: Yes pets and animals: Yes pets and animals: cat(s) Hx Recent Travel: No sexually active: No caffeine: Yes physical activity: none dyana/worship: [employer] special dyana needs: No working smoke detector in home: Yes fire extinguisher in home: Yes carbon monox detector in home: Yes firearms in home: No do you feel safe at home: Yes victim of physical abuse: No victim of emotional abuse: No victim of sexual abuse: No would you like helpful sources: No <Elidia Castellon DO - Last Filed: 10/15/23 01:25> [facility] Disclaimer: The information contained in this section may have been updated after the patient was seen, as this information can be updated by other users. <Marco A Barnes MD - Last Filed: 10/14/23 23:11> ROS Obtained: Yes Systems reviewed as appropriate & no additional complaints except as documented Physical Exam <Marco A Barnes MD - Last Filed: 10/14/23 23:11> General General appearance: alert and in no apparent distress Head Head exam: atraumatic and normocephalic Eye Eye exam: Present PERRL and EOMI ENT ENT exam: Present mucous membranes moist Neck Neck exam: Present normal inspection Chest Chest inspection: Present normal inspection and symmetric chest wall rise Respiratory Respiratory exam: Present normal lung sounds bilaterally; Absent respiratory distress Cardiovascular Cardiovascular exam: Present regular rate and normal rhythm Abdominal Exam Abdominal exam: Present soft; Absent tenderness Extremities Exam Extremities exam: Present tenderness (Mild tenderness over the open area of skin, no surrounding tenderness.) and other (Indurated scars over the right lower extremity, open denuded area of skin over the left medial leg approximately 4 inches proximal to the ankle. Surrounding erythema, no crepitus. Ulcer over the plantar right first metatarsal phalangeal joint); Absent normal inspection (Left partial foot amputation) Neurological Exam Neurological exam: Present alert Psychiatric Psychiatric exam: Present normal affect Skin Skin exam: Present warm and dry Medical Decision Making <Marco A Barnes MD - Last Filed: 10/14/23 23:11> Harsha Inquiry Pt receiving controlled substance: No Vital Signs: 10/14/23 22:18 10/14/23 23:31 10/15/23 00:20 Temperature 98.8 F 98.5 F Temperature Source Oral Oral Pulse Rate 96 H 78 Pulse Rate [Left Radial] 96 H Respiratory Rate 17 20 19 Blood Pressure 140/85 168/74 H Blood Pressure [Right Arm] 132/78 Blood Pressure Mean 103 Blood Pressure Mean [Right Arm] 96 Blood Pressure Source Automatic Cuff Blood Pressure Source [Right Arm] Automatic Cuff Blood Pressure Position Sitting Blood Pressure Position [Right Arm] Sitting 02 Sat by Pulse Oximetry 98 96 Oxygen Delivery Method Room Air Room Air Room Air Lab Data Lab Results 10/14/23 22:55: VBG pH 7.39, VBG pCO2 40.5, VBG pO2 42.3 H, VBG HCO3 23.7, VBG Total CO2 25.0, VBG O2 Saturation 79.2 H, VBG Base Excess -1.3 10/14/23 23:09: WBC 11.8 H, RBC 4.82, Hgb 13.0, Hct 41.1, MCV 85.3, MCH 27.0, MCHC 31.6 L, RDW 16.0, Plt Count 229, MPV 9.1, Neut % (Auto) 73.0, Lymph % (Auto) 20.9, Wright % (Auto) 4.1, Eos % (Auto) 1.6, Baso % (Auto) 0.4, Neut # (Auto) 8.6 H, Lymph # (Auto) 2.5, Wright # (Auto) 0.5, Eos # (Auto) 0.2, Baso # (Auto) 0.1, Sodium 138, Potassium 3.9, Chloride 104, Carbon Dioxide 30, Anion Gap 7.9, BUN 17, Creatinine 1.00, Estimated Creat Clear 60, Estimated GFR 58 L, Est GFR ( Amer) 70, Glucose 217 H, Calcium 8.7, Total Bilirubin 0.4, AST 26, ALT 23, Alkaline Phosphatase 81, Total Protein 7.5, Albumin 4.0, Globulin 3.5 H, Albumin/Globulin Ratio 1.1, Acetone Level None detected 10/14/23 23:09 10/14/23 23:09 Orders (Tests/Meds): ED MEDICATIONS Discontinued Medications Generic Name Dose Route Start Last Admin Trade Name Skylar PRN Reason Stop Dose Admin Dalbavancin 1,500 mg/ Dextrose 250 mls @ 500 mls/hr 10/14/23 23:04 10/14/23 23:46 IV 10/14/23 23:05 500 mls/hr ONCE ONE Administration ORDERS Category Date Time Status Acetone, Serum (Rapid) Stat Lab 10/14/23 23:09 Completed CBC w/Auto Diff [Complete Blood Count Auto Diff] Stat Lab 10/14/23 23:09 Completed CMP [Comprehensive Metabolic Panel] Stat Lab 10/14/23 23:09 Completed VBG [Venous Blood Gas] Stat RT 10/14/23 22:55 Completed Medical Decision Narrative: In summary patient is a 53-year-old female with past medical history described above who presents emergency department for evaluation of skin wound. Patient is hemodynamically stable and nontoxic-appearing upon arrival, afebrile. Differential diagnosis includes DKA given her high blood sugar, cellulitis, among others. Patient does not have pain out of proportion to exam, Nikolsky negative. It is possible that patient has chronic venous stasis and is having development of a venous ulcer in addition to her diabetic complications of her lower extremities however the surrounding erythema is concerning for infection. Patient was given a dose of dalbavancin. Workup will be conducted with hematologic labs. Repeat evaluation was pending at time of transition of care to the oncoming physician, Dr. Castellon. <Elidia Castellon, DO - Last Filed: 10/15/23 01:25> Vital Signs: 10/14/23 22:18 10/14/23 23:31 10/15/23 00:20 Temperature 98.8 F 98.5 F Temperature Source Oral Oral Pulse Rate 96 H 78 Pulse Rate [Left Radial] 96 H Respiratory Rate 17 20 19 Blood Pressure 140/85 168/74 H Blood Pressure [Right Arm] 132/78 Blood Pressure Mean 103 Blood Pressure Mean [Right Arm] 96 Blood Pressure Source Automatic Cuff Blood Pressure Source [Right Arm] Automatic Cuff Blood Pressure Position Sitting Blood Pressure Position [Right Arm] Sitting 02 Sat by Pulse Oximetry 98 96 Oxygen Delivery Method Room Air Room Air Room Air Lab Data Lab Results 10/14/23 22:55: VBG pH 7.39, VBG pCO2 40.5, VBG pO2 42.3 H, VBG HCO3 23.7, VBG Total CO2 25.0, VBG O2 Saturation 79.2 H, VBG Base Excess -1.3 10/14/23 23:09: WBC 11.8 H, RBC 4.82, Hgb 13.0, Hct 41.1, MCV 85.3, MCH 27.0, MCHC 31.6 L, RDW 16.0, Plt Count 229, MPV 9.1, Neut % (Auto) 73.0, Lymph % (Auto) 20.9, Wright % (Auto) 4.1, Eos % (Auto) 1.6, Baso % (Auto) 0.4, Neut # (Auto) 8.6 H, Lymph # (Auto) 2.5, Wright # (Auto) 0.5, Eos # (Auto) 0.2, Baso # (Auto) 0.1, Sodium 138, Potassium 3.9, Chloride 104, Carbon Dioxide 30, Anion Gap 7.9, BUN 17, Creatinine 1.00, Estimated Creat Clear 60, Estimated GFR 58 L, Est GFR ( Amer) 70, Glucose 217 H, Calcium 8.7, Total Bilirubin 0.4, AST 26, ALT 23, Alkaline Phosphatase 81, Total Protein 7.5, Albumin 4.0, Globulin 3.5 H, Albumin/Globulin Ratio 1.1, Acetone Level None detected Orders (Tests/Meds): ED MEDICATIONS Discontinued Medications Generic Name Dose Route Start Last Admin Trade Name Freq PRN Reason Stop Dose Admin Dalbavancin 1,500 mg/ Dextrose 250 mls @ 500 mls/hr 10/14/23 23:04 10/14/23 23:46 IV 10/14/23 23:05 500 mls/hr ONCE ONE Administration ORDERS Category Date Time Status Acetone, Serum (Rapid) Stat Lab 10/14/23 23:09 Completed CBC w/Auto Diff [Complete Blood Count Auto Diff] Stat Lab 10/14/23 23:09 Completed CMP [Comprehensive Metabolic Panel] Stat Lab 10/14/23 23:09 Completed VBG [Venous Blood Gas] Stat RT 10/14/23 22:55 Completed Medical Decision Narrative: In summary patient is a 53-year-old female with past medical history described above who presents emergency department for evaluation of skin wound. Patient is hemodynamically stable and nontoxic-appearing upon arrival, afebrile. Differential diagnosis includes DKA given her high blood sugar, cellulitis, among others. Patient does not have pain out of proportion to exam, Nikolsky negative. It is possible that patient has chronic venous stasis and is having development of a venous ulcer in addition to her diabetic complications of her lower extremities however the surrounding erythema is concerning for infection. Patient was given a dose of dalbavancin. Workup will be conducted with hematologic labs. Repeat evaluation was pending at time of transition of care to the oncoming physician, Dr. Castellon. Ravinder, DO: Assessment of the patient, she is resting comfortably. Labs are reassuring without concerns for DKA or other issues. She does have a very mild leukocytosis, likely in the setting of this acute cellulitis. She was given dalbavancin, which she tolerated well. At this time, she was deemed to be appropriate for discharge. She was given instructions for close a patient follow-up, strict return precautions, and she was discharged in stable condition after all questions were answered Critical Care <Marco A Barnes MD - Last Filed: 10/14/23 23:11> Critical Care Time Critical Care Time: No
[2023-10-14 23:19] LABS: VBG Base Excess -1.3 mmol/L (-2.4-2.3); VBG HCO3 23.7 mmol/L (23-30); VBG Oxygen Saturation 79.2 % (50-70); VBG PCO2 40.5 mmol/L (35-51); VBG PH 7.39 mmol/L (7.31-7.41); VBG PO2 42.3 mmol/L (28-40)
[2023-10-14 23:19] LABS: Basophils # 0.1 K/mm3 (0-0.2); Basophils % 0.4 % (0.1-2.0); Eosinophils # 0.2 K/mm3 (0.0-0.4); Eosinophils % 1.6 % (0.1-12.0); Hematocrit 41.1 % (37.0-47.0); Lymphocytes # 2.5 K/mm3 (0.7-4.5); Lymphocytes % 20.9 % (10-50); Mean Corpuscular HGB Conc 31.6 g/dL (31.8-35.4); Mean Corpuscular Volume 85.3 fl (81-99); Mean Platelet Volume 9.1 fl (7.4-10.4); Monocytes # 0.5 K/mm3 (0.1-1.0); Monocytes % 4.1 % (1.7-9.3); Neutrophils # 8.6 K/mm3 (1.8-7.8); Platelet Count 229 K/mm3 (142-424); Red Blood Count 4.82 M/mm3 (4.20-5.40); White Blood Count 11.8 K/mm3 (4.8-10.8)
[2023-10-14 23:21] LABS: Chloride 104 mmol/L (98-107); Potassium 3.9 mmoL/L (3.5-5.1); Sodium 138 mmol/L (136-145)
[2023-10-14 23:23] LABS: Blood Urea Nitrogen 17 mg/dl (7-17)
[2023-10-14 23:24] LABS: Acetone, Serum (Rapid) None Detected (None Detect); Alanine Aminotransferase 23 U/L (12-78); Albumin/Globulin Ratio 1.1 (1.1-1.8); Alkaline Phosphatase 81 U/L (38-126); Anion Gap 7.9 mEq/L (5-15); Aspartate Amino Transferase 26 U/L (14-36); Bilirubin,Total 0.4 mg/dl (0.2-1.3); Calcium 8.7 mg/dl (8.4-10.2); Carbon Dioxide 30 mmol/L (22.0-30.0); Creatinine Clearance Estimated 60 mL/min (50-200); Estimated Glomerular Filt Rate 58 ml/min (>60); GFR (African American) 70 ML/MIN (>60); Globulin 3.5 g/dL (1.3-3.2); Glucose 217 mg/dl (74-100); Total Protein,Serum 7.5 g/dl (6.3-8.2)
[2023-10-14 23:31] VITALS: BP 140/85; PULSE 96; RESP 20; O2SAT 96
[2023-10-14] MEDS: DALBAVANCIN HCL 1,500 MG in DEXTROSE 5 % IN WATER 250 ML 500 MG IV (23:46)
[2023-10-15 00:20] VITALS: BP 168/74; PULSE 78; RESP 19; TEMP 36.9; O2SAT 98
== END 2023-10-15 00:21 | disposition home or self-care (01) ==
PROVIDERS: Emergency Provider Emergency Medicine; PCP Internal Medicine
DX: L03.115 Cellulitis of right lower limb (principal); E11.65 Type 2 diabetes mellitus with hyperglycemia; E11.621 Type 2 diabetes mellitus with foot ulcer; L97.519 Non-pressure chronic ulcer of other part of right foot with unspecified severity; I25.10 Atherosclerotic heart disease of native coronary artery without angina pectoris; I11.9 Hypertensive heart disease without heart failure; E78.5 Hyperlipidemia, unspecified; E11.40 Type 2 diabetes mellitus with diabetic neuropathy, unspecified; Z79.4 Long term (current) use of insulin; Z79.84 Long term (current) use of oral hypoglycemic drugs
CPT/HCPCS: 80053; 82009; 82803; 85025; 96365; 96374; 99284; 99285; J0875

== ENCOUNTER 2024-03-19 10:26 | Inpatient (IN) | payer MEDICARE, SELFPAY ==
[2024-03-19] VITALS (17 sets, daily range): BP systolic 119–184; BP diastolic 66–95; PULSE 83–149; RESP 17–38; TEMP 36.6–37.1; O2SAT 98–100; BMI 46.2; BMI 43.7
--- NOTE | 2024-03-19 10:16 | PC.NURSE ---
Alix GONZALEZ-P called report while in route to [facility] ER
--- NOTE | 2024-03-19 10:29 | ECG_ITS ---
APPROVED REPORT Exam: Resting ECG HR:124 bpm ECG Measurements Heart Rate 124 AXES MD 366 P QRSd 82 QRS -35 QT 293 T 77 QTc 367 Conclusion ELECTRONIC ATRIAL PACEMAKER ELECTRONIC VENTRICULAR PACEMAKER ABNORMAL RHYTHM ECG Electronically signed by : JONATHON JUNIOR, 03/20/2024 07:23:10
--- NOTE | 2024-03-19 10:34 | PC.NURSE ---
pt brought in by EMS and transferred from stretcher to bed. EKG done and IV started.
--- NOTE | 2024-03-19 10:42 | PC.NURSE ---
DR WRIGHT AT BEDSIDE
--- NOTE | 2024-03-19 10:43 | XR_ITS ---
PROCEDURE INFORMATION: Exam: XR Chest Exam date and time: 03/19/2024 11:01 AM Age: 53 years old Clinical indication: Shortness of breath TECHNIQUE: Imaging protocol: Radiologic exam of the chest. Views: 1 view. COMPARISON: CT ANGIO CHEST PE PROTOCOL 07/11/2023 6:23 PM FINDINGS: Lungs: An 8 mm calcified granuloma is noted in the periphery of the left mid lung. Pleural spaces: Unremarkable. No pleural effusion. No pneumothorax. Heart/Mediastinum: Unremarkable. No cardiomegaly. Bones/joints: Unremarkable. IMPRESSION: No acute cardiopulmonary disease.
--- NOTE | 2024-03-19 10:49 | HMH.EDGENADL ---
Discharge Plan Disposition Patient Disposition: Admitted Condition: Fair Clinical Impressions Clinical Impression: DKA (diabetic ketoacidosis) Discharge ED Provider: Yg Deleon Adult HPI General Chief complaint: Shortness of Breath/Dyspnea Stated complaint: N/V & weak for days, SOA/hypoxia Time Seen by Provider: 03/19/24 10:43 History of Present Illness HPI narrative: 53-year-old female with past medical history significant for DM2 on insulin, HTN, HLD, CAD, CKD, STEMI with cardiac stents, Takotsubo cardiomyopathy, presents today for evaluation concerning nausea and vomiting with associated shortness of breath over the past couple of days. She also notes a fever of 104 ?F at home today. States she has also had upper abdominal pain and has also had dysuria without hematuria. Denies any chest pain. States that she has been in DKA before. She has been taking her medications appropriately. No further complaints Related Data Home Medications Medication Instructions Recorded Confirmed aspirin 81 mg chewable tablet 81 mg PO DAILY [facility] 04/08/19 03/19/24 ezetimibe 10 mg tablet 10 mg PO HS 03/06/20 03/19/24 duloxetine 60 mg capsule,delayed 60 mg PO BID 07/02/20 03/19/24 release dapagliflozin propanediol 10 mg 10 mg PO DAILY 11/01/20 03/19/24 tablet insulin glargine 100 unit/mL (3 90 unit SQ HS 11/01/20 03/19/24 mL) subcutaneous pen pregabalin 200 mg capsule 200 mg PO BID 12/14/20 03/19/24 ramipril 5 mg capsule 5 mg PO DAILY 01/07/21 03/19/24 spironolactone 25 mg tablet 25 mg PO DAILY 02/05/21 03/19/24 rosuvastatin 20 mg tablet 20 mg PO DAILY 02/14/21 03/19/24 trazodone 100 mg tablet 100 mg PO HS 02/14/21 03/19/24 hydrocodone 10 mg-acetaminophen 1 tab PO Q6HP PRN Moderate Pain 07/12/23 03/19/24 325 mg tablet (Scale Score 5-6) rivaroxaban 2.5 mg tablet (Xarelto) 2.5 mg PO BIDWMEAL 07/12/23 03/19/24 insulin aspart U-100 100 unit/mL 0 sliding scale dose SQ AC 03/19/24 03/19/24 (3 mL) subcutaneous pen (Novolog FlexPen U-100 Insulin aspart) isosorbide mononitrate 60 mg 60 mg PO DAILY 03/19/24 03/19/24 tablet,extended release 24 hr metoprolol tartrate 100 mg tablet 100 mg PO BID 03/19/24 03/19/24 semaglutide 1 mg/dose (4 mg/3 mL) 1 mg SQ WEEKLY 03/19/24 03/19/24 subcutaneous pen injector (Ozempic) Allergies Allergy/AdvReac Type Severity Reaction Status Date / Time amoxicillin [AMOXICILLIN] Allergy Unknown Unknown Verified 09/22/23 13:12 allergy reaction codeine [CODEINE] AdvReac Mild STOMACH Verified 09/22/23 13:12 CRAMPS morphine [MORPHINE] AdvReac Mild STOMACH Verified 09/22/23 13:12 CRAMPS oxycodone [From Percocet] AdvReac Mild STOMACH Verified 09/22/23 13:12 CRAMPS PFSH PFSH Disclaimer: The information contained in this section may have been updated after the patient was seen, as this information can be updated by other users. 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 (Updated 03/19/24 @ 13:11 by Yg Deleon DO) Recurrent major depression resistant to treatment Anemia HTN (hypertension) Type 2 diabetes mellitus with diabetic neuropathy, with long-term current use of insulin Hyperlipemia CAD (coronary artery disease) Essential hypertension Vitamin D deficiency Surgical History (Updated 09/12/23 @ 00:01 by Jacob Eng) History of appendectomy History of cholecystectomy History of hysterectomy History of hand surgery History of foot surgery Social History (Updated 09/08/23 @ 10:31 by Jihan Acuna APRN) Smoking Status: Former smoker smoking status stop date: 07/17/2023 second hand exposure: No alcohol intake: never counseling given: No substance use type: denies use counseling given: No current occupational status: disabled Travel in the last 8 weeks: None adopted: No caregiver/support person: No foster care: No household members: children housing: house lives independently: Yes marital status: number of children: 1 number of grandchildren: 0 education level: high school 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; 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 current occupational exposures/hazards: Yes pets and animals: Yes pets and animals: cat(s) Hx Recent Travel: No sexually active: No caffeine: Yes physical activity: none dyana/gnosticist: Restorationism special dyana needs: No working smoke detector in home: Yes fire extinguisher in home: Yes carbon monox detector in home: Yes firearms in home: No do you feel safe at home: Yes victim of physical abuse: No victim of emotional abuse: No victim of sexual abuse: No would you like helpful sources: No ROS Obtained: Yes All systems reviewed & no additional complaints except as documented Physical Exam General General appearance: alert and in no apparent distress Head Head exam: atraumatic and normocephalic Eye Eye exam: Present normal appearance, PERRL and EOMI ENT ENT exam: Present normal oropharynx and mucous membranes moist Neck Neck exam: Present full ROM; Absent meningismus Respiratory Respiratory exam: Present other (Tachypnea); Absent respiratory distress, wheezes, stridor or accessory muscle use Cardiovascular Cardiovascular exam: Present normal rhythm and tachycardia Abdominal Exam Abdominal exam: Present soft and tenderness (Upper abdomen, mild); Absent distention, guarding, rebound or rigidity Neurological Exam Neurological exam: Present alert, oriented X3 and CN II-XII intact; Absent motor sensory deficit Psychiatric Psychiatric exam: Present normal affect and normal mood Skin Skin exam: Present warm and dry Medical Decision Making Medical Records Medical records reviewed: Yes I reviewed the patient's medical records. Harsha Inquiry Pt receiving controlled substance: No Harsha was queried for this patient: No Vital Signs: 03/19/24 10:26 03/19/24 10:30 03/19/24 11:00 Temperature 98.8 F Temperature Source Axillary Pulse Rate 127 H 119 H Pulse Rate [Right] 130 H Respiratory Rate 32 H 38 H 20 Blood Pressure 164/95 H 156/93 H Blood Pressure [Right Arm] 153/89 H Blood Pressure Mean 113 119 Blood Pressure Mean [Right Arm] 110 Blood Pressure Source [Right Arm] Automatic Cuff 02 Sat by Pulse Oximetry 100 100 100 Oxygen Delivery Method Room Air 03/19/24 11:01 03/19/24 11:33 Temperature 98.1 F Temperature Source Axillary Pulse Rate 104 H Pulse Rate [Right] Respiratory Rate 20 Blood Pressure 153/95 H Blood Pressure [Right Arm] Blood Pressure Mean 104 Blood Pressure Mean [Right Arm] Blood Pressure Source [Right Arm] 02 Sat by Pulse Oximetry 100 Oxygen Delivery Method Lab Data Lab Results 03/19/24 10:25: WBC 18.5 H, RBC 4.89, Hgb 13.3, Hct 43.1, MCV 88.3, MCH 27.3, MCHC 30.9 L, RDW 16.5, Plt Count 408, MPV 10.0, Neut % (Auto) 86.7 H, Lymph % (Auto) 8.0 L, Price % (Auto) 4.4, Eos % (Auto) 0.7, Baso % (Auto) 0.3, Neut # (Auto) 16.1 H, Lymph # (Auto) 1.5, Price # (Auto) 0.8, Eos # (Auto) 0.1, Baso # (Auto) 0.1, Total Counted 100, Neutrophils % (Manual) 85 H, Band Neutrophils % 1.0, Lymphocytes % (Manual) 10, Monocytes % (Manual) 4, Platelet Estimate Slight increase, RBC Morphology Normal, Sodium 130 L, Potassium 5.1, Chloride 100, Carbon Dioxide 7 L*, Anion Gap 28.1 H, BUN 34 H, Creatinine 1.40 H, Estimated Creat Clear 44, Estimated GFR 39 L, Est GFR ( Amer) 47 L, Glucose 443 H*, Calcium 9.8, Total Bilirubin 0.8, AST 23, ALT 20, Alkaline Phosphatase 149 H, Troponin I < 0.01, NT-Pro-B Natriuret Pep 926 H, Total Protein 8.3 H, Albumin 3.6, Globulin 4.7 H, Albumin/Globulin Ratio 0.8 L, Lipase 519 H, Acetone Level Moderate 03/19/24 10:43: VBG pH 7.11 L, VBG pCO2 28.6 L, VBG pO2 39.3, VBG HCO3 9.0 L, VBG Total CO2 9.8 L, VBG O2 Saturation 66.3, VBG Base Excess -20.5 L, VBG Lactic Acid 2.9 H 03/19/24 10:25 03/19/24 10:25 Orders (Tests/Meds): ED MEDICATIONS Generic Name Dose Route Start Last Admin Trade Name Freq PRN Reason Stop Dose Admin Acetaminophen 650 mg 03/19/24 12:51 Acetaminophen 325mg Tab PO 04/18/24 12:50 Q4HP PRN Fever or Mild Pain (1-3) Dextrose 50 ml 03/19/24 12:55 Dextrose 50% 50ml Syringe (Crash Cart) IVP 04/18/24 12:54 NEEDED PRN Per DKA Protocol Insulin Human Regular 100 unit 101 mls @ 1.01 mls/hr 03/19/24 13:00 / Sodium Chloride IV 04/18/24 12:59 .Q24H PETE Protocol 1 UNIT/HR Sodium Chloride 1,000 mls @ 150 mls/hr 03/19/24 13:00 Sod Chlor 0.9% 1000ml Bag IV 04/18/24 12:59 .Q6H40M PETE Sodium Chloride 10 ml 03/19/24 10:43 Sodium Chloride 0.9% 10ml Flush Syringe IV 04/18/24 10:42 NEEDED PRN Maintain IV Site Discontinued Medications Generic Name Dose Route Start Last Admin Trade Name Freq PRN Reason Stop Dose Admin Sodium Chloride 1,000 mls @ 999 mls/hr 03/19/24 10:48 03/19/24 10:51 Sod Chlor 0.9% 1000ml Bag IV 03/19/24 11:48 Not Given .Q1H1M ONE Lactated Ringer's 1,000 mls @ 999 mls/hr 03/19/24 10:51 03/19/24 10:54 Lactated Ringer's 1000 Ml Bag IV 03/19/24 11:51 999 mls/hr .Q1H1M ONE Administration Insulin Human Regular 10 unit 03/19/24 12:33 Insulin Human Regular 100 Units/Ml 10ml Vial IV 03/19/24 12:34 ONCE ONE ORDERS Category Date Time Status CXR --portable [XR chest portable] Stat Exams 03/19/24 10:43 Completed Acetone, Serum (Rapid) Stat Lab 03/19/24 10:25 Completed BNP [NT Pro Brain Natriuretic Pep.] Stat Lab 03/19/24 10:25 Completed Complete Blood Count Auto Diff Stat Lab 03/19/24 10:25 Completed Comprehensive Metabolic Panel Stat Lab 03/19/24 10:25 Completed Lactic Acid Stat Lab 03/19/24 10:48 Ordered Lipase Stat Lab 03/19/24 10:25 Completed Trop I [Troponin I] Stat Lab 03/19/24 10:25 Completed Troponin I Q3H Lab 03/19/24 14:00 Ordered Troponin I Q3H Lab 03/19/24 17:00 Ordered UA [Urinalysis and Microscopic] Stat Lab 03/19/24 10:48 Ordered Venous Blood Gas Stat RT 03/19/24 10:43 Completed ECG Data Tracing #1: I reviewed this ECG and interpreted as documented below: EKG personally interpreted by me. Sinus tachycardia with a rate of 1 and 24 bpm. No ischemic changes. Medical Decision Narrative: 53-year-old female with past medical history significant for DM2 on insulin, HTN, HLD, CAD, CKD, STEMI with cardiac stents, Takotsubo cardiomyopathy, presents today for evaluation concerning nausea and vomiting with associated shortness of breath over the past couple of days. She also notes a fever of 104 ?F at home today. States she has also had upper abdominal pain and has also had dysuria without hematuria. Denies any chest pain. States that she has been in DKA before. She has been taking her medications appropriately On assessment she was tachycardic in the 120s, tachypneic, clear breath sounds bilaterally. Abdomen was soft and nondistended and was mildly tender in the upper abdomen. No lower abdominal tenderness to palpation. No significant peripheral edema noted. Left foot with amputated toes. Of exam findings unremarkable differential diagnosis include limited to DKA, electrolyte disturbance, pleural effusion, pneumonia, ACS, among others. WBC of 18.5. VBG with pH of 7.11, pCO2 of 28.6. Lactic acid of 2.9. Sodium 130. Carbon dioxide of 7. Anion gap 28.1. Creatinine 1.4. Glucose elevated at 443. Alkaline phosphatase 149. Initial troponin less than 0.01. BNP 926. Lipase 519. Patient was given IV fluids and was also given insulin while in the ED as she was in DKA. She was mentating appropriately. I discussed ED workup and results with patient as well as current plan to admit in the setting of her DKA. I did consult with hospital medicine and discussed management and patient was of 1 admitted for further management. Critical Care Critical Care Time Critical Care Time: No
--- NOTE | 2024-03-19 10:51 | PC.NURSE ---
pt glucose was tested , MD at bedside and notified of hyperglycemia
[2024-03-19] MEDS: LACTATED RINGERS 1000ML 1,000 ML 999 ML IV (10:54)
[2024-03-19 10:57] LABS: Basophils # 0.1 K/mm3 (0-0.2); Basophils % 0.3 % (0.1-2.0); Eosinophils # 0.1 K/mm3 (0.0-0.4); Eosinophils % 0.7 % (0.1-12.0); Hematocrit 43.1 % (37.0-47.0); Hemoglobin 13.3 g/dL (12.2-16.2); Lymphocytes # 1.5 K/mm3 (0.7-4.5); Mean Corpuscular HGB Conc 30.9 g/dL (31.8-35.4); Mean Corpuscular Hemoglobin 27.3 pg (27.0-31.2); Mean Corpuscular Volume 88.3 fl (81-99); Monocytes # 0.8 K/mm3 (0.1-1.0); Monocytes % 4.4 % (1.7-9.3); Neutrophils # 16.1 K/mm3 (1.8-7.8); Neutrophils % 86.7 % (37.0-80.0); Platelet Count 408 K/mm3 (142-424); Red Blood Count 4.89 M/mm3 (4.20-5.40); Red Cell Distribution Width 16.5 % (11.5-17.5); White Blood Count 18.5 K/mm3 (4.8-10.8)
[2024-03-19 10:59] LABS: VBG PCO2 28.6 mmol/L (35-51); VBG PH 7.11 mmol/L (7.31-7.41); VBG PO2 39.3 mmol/L (28-40)
[2024-03-19 11:00] LABS: Lactate Venous 2.9 mmol/L (0.4-2.0); VBG Base Excess -20.5 mmol/L (-2.4-2.3); VBG Oxygen Saturation 66.3 % (50-70); VBG Total CO2 9.8 mmol/L (23-27)
[2024-03-19 11:02] LABS: MANUAL DIFFERENTIAL MANUAL DIFFERENTIAL (MANUAL DIFF)
--- NOTE | 2024-03-19 11:02 | PC.NURSE ---
VBG results called by Nery pH 7.11 CO2 28.6 PO2 39.3 Bicarb 9 SO2 66.[address] Deleon notified of results.
[2024-03-19 11:08] LABS: Alanine Aminotransferase 20 U/L (12-78); Albumin Level 3.6 g/dl (3.5-5.0); Albumin/Globulin Ratio 0.8 (1.1-1.8); Alkaline Phosphatase 149 U/L (38-126); Anion Gap 28.1 mEq/L (5-15); Aspartate Amino Transferase 23 U/L (14-36); Bilirubin,Total 0.8 mg/dl (0.2-1.3); Blood Urea Nitrogen 34 mg/dl (7-17); Calcium 9.8 mg/dl (8.4-10.2); Chloride 100 mmol/L (98-107); Creatinine Clearance Estimated 44 mL/min (50-200); Estimated Glomerular Filt Rate 39 ml/min (>60); GFR (African American) 47 ML/MIN (>60); Globulin 4.7 g/dL (1.3-3.2); Lipase 519 U/L (23-300); Potassium 5.1 mmoL/L (3.5-5.1); Sodium 130 mmol/L (136-145); Total Protein,Serum 8.3 g/dl (6.3-8.2)
[2024-03-19 11:14] LABS: Carbon Dioxide 7 mmol/L (22.0-30.0); Glucose 443 mg/dl (74-100)
--- NOTE | 2024-03-19 11:14 | PC.NURSE ---
Pauly in lab called critical CO2 of 7 and critical glucose of 443. Repeated and verified. Dr. Deleon notified.
[2024-03-19 11:43] LABS: NT Pro Brain Natriuretic Pep. 926 pg/mL (0-125)
[2024-03-19 11:45] LABS: Troponin I < 0.01 ng/ml (0.00-0.034)
[2024-03-19 11:47] LABS: Lymphocytes % 10 % (10-50); Monocytes % 4 % (2-9); Neutrophils % 85 % (42-76); Total Cells Counted 100
[2024-03-19 11:50] LABS: Platelet Estimate Slight Increase; RBC Morphology Normal
--- NOTE | 2024-03-19 12:31 | PC.NURSE ---
DR WRIGHT SPEAKING WITH DR AHUMADA FOR ADMISSION
[2024-03-19 12:34] LABS: Acetone, Serum (Rapid) Moderate (None Detect)
--- NOTE | 2024-03-19 12:34 | PC.NURSE ---
MAID HOUSEKEEPER NOTIFIED OF ADMISSION
--- NOTE | 2024-03-19 12:50 | PC.NURSE ---
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 NOT AVAILABLE AT THIS TIME. WILL NEED TO MOVE PTS AND HAVE ROOM CLEANED
--- NOTE | 2024-03-19 13:12 | HMH.PHAINT1 ---
Pharmacy Intervention Comments: MEDICATION RECONCILIATION COMPLETED ON PATIENT USING EXTERNAL FILL HISTORY FROM PHARMACY. -TANVI GRAY, MONAD
--- NOTE | 2024-03-19 13:17 | PC.NURSE ---
pt was cold, warm blanket given
[2024-03-19 13:30] LABS: Microscopic, Urine URINE MICROSCOPIC (MICROSCOPIC)
[2024-03-19 13:32] LABS: Appearance,Urine CLEAR (Clear); Blood, Urine 1+ (Negative); Color,Urine YELLOW (Yellow); Glucose,Urine (UA) 3+ (Negative); Ketones,Urine 3+ (Negative); Leukocyte Esterase,Urine Negative (Negative); Nitrate,Urine Negative (Negative); PH,Urine 5.5 (5.0-8.5); Protein,Urine 1+ (Negative); Specific Gravity, Urine >= 1.030 (1.005-1.030); Urobilinogen,Urine 0.2 EU/dl (0.2)
[2024-03-19 13:38] LABS: Bilirubin,Urine Negative (Negative)
[2024-03-19 13:41] LABS: Bacteria,Urine Trace /lpf; RBC,Urine Occasional #/hpf (0-3)
--- NOTE | 2024-03-19 14:14 | PC.NURSE ---
pt left by stretcher to med surg floor at this time
--- NOTE | 2024-03-19 14:18 | PC.NURSE ---
pt arrived to floor by stretcher
[2024-03-19] MEDS: 0.9 % SODIUM CHLORIDE 1000ML 1,000 ML 150 ML IV (14:39)
[2024-03-19] MEDS: INSULIN REGULAR, HUMAN 100 UNIT in 0.9 % SODIUM CHLORIDE 100 ML 12.1199999999999992 UNIT IV (14:39)
[2024-03-19 14:57] LABS: Reflex Lactic Add Lactic Reflex
[2024-03-19 15:10] LABS: Chloride 102 mmol/L (98-107); Potassium 5.3 mmoL/L (3.5-5.1); Sodium 132 mmol/L (136-145)
[2024-03-19 15:13] LABS: Alanine Aminotransferase 18 U/L (12-78); Albumin Level 3.6 g/dl (3.5-5.0); Albumin/Globulin Ratio 0.8 (1.1-1.8); Alkaline Phosphatase 166 U/L (38-126); Aspartate Amino Transferase 26 U/L (14-36); Bilirubin,Total 0.8 mg/dl (0.2-1.3); Blood Urea Nitrogen 33 mg/dl (7-17); Creatinine Clearance Estimated 46 mL/min (50-200); Estimated Glomerular Filt Rate 43 ml/min (>60); GFR (African American) 51 ML/MIN (>60); Globulin 4.8 g/dL (1.3-3.2); Phosphorous 4.4 mg/dl (2.5-4.5); Total Protein,Serum 8.4 g/dl (6.3-8.2)
[2024-03-19 15:14] LABS: Anion Gap 30.3 mEq/L (5-15)
[2024-03-19 15:15] LABS: Carbon Dioxide < 5 mmol/L (22.0-30.0); Glucose 433 mg/dl (74-100)
[2024-03-19 15:16] LABS: Lactic Acid Follow Up (RFLX 1) 2.1 mmol/L (0.7-2.1)
--- NOTE | 2024-03-19 15:21 | ECG_ITS ---
APPROVED REPORT Exam: Resting ECG HR:124 bpm ECG Measurements Heart Rate 124 AXES OR 358 P QRSd 98 QRS -2 QT 311 T 74 QTc 385 Conclusion ELECTRONIC ATRIAL PACEMAKER ELECTRONIC VENTRICULAR PACEMAKER ABNORMAL RHYTHM ECG, electronic artfiact noted UNCONFIRMED REPORT Electronically signed by : Apolinar Odonnell MD 03/20/2024 12:52:52
[2024-03-19 15:29] LABS: Troponin I < 0.01 ng/ml (0.00-0.034)
[2024-03-19] MEDS: 0.9% NaCl w/20mEq KCL 1,000 ML 150 ML IV (16:11)
--- NOTE | 2024-03-19 17:07 | P.HP_ITS ---
History of Present Illness *Admission Date: 03/19/24 *Reason for visit:: nausea vomiting *History of present illness: Patient is a 53-year-old female with past medical history of diabetes mellitus CAD hypertension hyperlipidemia who presented to hospital due to not feeling well, nausea vomiting shortness of breath. Patient mentions she feels like she is in DKA. Denies medication noncompliance. According to the patient she noticed fevers as well, on arrival to the hospital she did not spike any fevers, denies chest pain. [facility] Disclaimer: The information contained in this section may have been updated after the patient was seen, as this information can be updated by other users. 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 (Updated 03/19/24 @ 13:11 by Yg Deleon DO) Recurrent major depression resistant to treatment Anemia HTN (hypertension) Type 2 diabetes mellitus with diabetic neuropathy, with long-term current use of insulin Hyperlipemia CAD (coronary artery disease) Essential hypertension Vitamin D deficiency Surgical History (Updated 09/12/23 @ 00:01 by Jacob Eng) History of appendectomy History of cholecystectomy History of hysterectomy History of hand surgery History of foot surgery Social History (Updated 03/19/24 @ 15:00 by Keisha Rueda RN) Smoking Status: Former smoker smoking status stop date: 07/17/2023 second hand exposure: No alcohol intake: never counseling given: No substance use type: denies use counseling given: No current occupational status: disabled Travel in the last 8 weeks: None adopted: No caregiver/support person: No foster care: No household members: children housing: house lives independently: Yes marital status: number of children: 1 number of grandchildren: 0 education level: high school 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; 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 current occupational exposures/hazards: Yes pets and animals: Yes pets and animals: cat(s) Hx Recent Travel: No sexually active: No caffeine: Yes physical activity: none dyana/christian: Holiness special dyana needs: No working smoke detector in home: Yes fire extinguisher in home: Yes carbon monox detector in home: Yes firearms in home: No do you feel safe at home: Yes victim of physical abuse: No victim of emotional abuse: No victim of sexual abuse: No would you like helpful sources: No Review of Systems Review of Systems Review of systems:: pertinent systems reviewed and negative unless documented below Meds Home Medications and Allergies Home Medications Medication Instructions Recorded Confirmed Type aspirin 81 mg chewable tablet 81 mg PO DAILY [facility] 04/08/19 03/19/24 History ezetimibe 10 mg tablet 10 mg PO HS 03/06/20 03/19/24 History duloxetine 60 mg capsule,delayed 60 mg PO BID 07/02/20 03/19/24 History release dapagliflozin propanediol 10 mg 10 mg PO DAILY 11/01/20 03/19/24 History tablet insulin glargine 100 unit/mL (3 90 unit SQ HS 11/01/20 03/19/24 History mL) subcutaneous pen pregabalin 200 mg capsule 200 mg PO BID 12/14/20 03/19/24 History ramipril 5 mg capsule 5 mg PO DAILY 01/07/21 03/19/24 History spironolactone 25 mg tablet 25 mg PO DAILY 02/05/21 03/19/24 History rosuvastatin 20 mg tablet 20 mg PO DAILY 02/14/21 03/19/24 History trazodone 100 mg tablet 100 mg PO HS 02/14/21 03/19/24 History hydrocodone 10 mg-acetaminophen 1 tab PO Q6HP PRN Moderate Pain 07/12/23 03/19/24 History 325 mg tablet (Scale Score 5-6) rivaroxaban 2.5 mg tablet (Xarelto) 2.5 mg PO BIDWMEAL 07/12/23 03/19/24 History insulin aspart U-100 100 unit/mL 0 sliding scale dose SQ AC 03/19/24 03/19/24 History (3 mL) subcutaneous pen (Novolog FlexPen U-100 Insulin aspart) isosorbide mononitrate 60 mg 60 mg PO DAILY 03/19/24 03/19/24 History tablet,extended release 24 hr metoprolol tartrate 100 mg tablet 100 mg PO BID 03/19/24 03/19/24 History New Prescriptions to Start Prescriptions: Allergies Allergy/AdvReac Type Severity Reaction Status Date / Time amoxicillin [AMOXICILLIN] Allergy Unknown Unknown Verified 09/22/23 13:12 allergy reaction codeine [CODEINE] AdvReac Mild STOMACH Verified 09/22/23 13:12 CRAMPS morphine [MORPHINE] AdvReac Mild STOMACH Verified 09/22/23 13:12 CRAMPS oxycodone [From Percocet] AdvReac Mild STOMACH Verified 09/22/23 13:12 CRAMPS Exam Data for Last 24 hours Vital signs and Labs for Last 24 Hours: Temp Pulse Resp BP Pulse Ox O2 Del Method O2 Flow Rate 98.3 F 120 H 26 H 168/93 H 100 Nasal Cannula 1 03/19/24 15:37 03/19/24 16:00 03/19/24 15:00 03/19/24 15:00 03/19/24 15:00 03/19/24 15:00 03/19/24 15:00 Laboratory Results - last 24 hr 03/19/24 10:25: WBC 18.5 H, RBC 4.89, Hgb 13.3, Hct 43.1, MCV 88.3, MCH 27.3, MCHC 30.9 L, RDW 16.5, Plt Count 408, MPV 10.0, Neut % (Auto) 86.7 H, Lymph % (Auto) 8.0 L, [place] % (Auto) 4.4, Eos % (Auto) 0.7, Baso % (Auto) 0.3, Neut # (A uto) 16.1 H, Lymph # (Auto) 1.5, [place] # (Auto) 0.8, Eos # (Auto) 0.1, Baso # (Auto) 0.1, Total Counted 100, Neutrophils % (Manual) 85 H, Band Neutrophils % 1.0, Lymphocytes % (Manual) 10, Monocytes % (Manual) 4, Platelet Estimate Slight increase, RBC Morphology Normal, Sodium 130 L, Potassium 5.1, Chloride 100, Carbon Dioxide 7 L*, Anion Gap 28.1 H, BUN 34 H, Creatinine 1.40 H, Estimated Creat Clear 44, Estimated GFR 39 L, Est GFR ( Amer) 47 L, Glucose 443 H*, Calcium 9.8, Total Bilirubin 0.8, AST 23, ALT 20, Alkaline Phosphatase 149 H, Troponin I < 0.01, NT-Pro-B Natriuret Pep 926 H, Total Protein 8.3 H, Albumin 3.6, Globulin 4.7 H, Albumin/Globulin Ratio 0.8 L, Lipase 519 H, Acetone Level Moderate 03/19/24 10:43: VBG pH 7.11 L, VBG pCO2 28.6 L, VBG pO2 39.3, VBG HCO3 9.0 L, VBG Total CO2 9.8 L, VBG O2 Saturation 66.3, VBG Base Excess -20.5 L, VBG Lactic Acid 2.9 H 03/19/24 13:27: Urine Color Yellow, Urine Appearance Clear, Urine pH 5.5, Ur Specific [place] >= 1.030, Urine Protein 1+, Urine Glucose (UA) 3+, Urine Ketones 3+, Urine Blood 1+, Urine Nitrate Negative, Urine Bilirubin Negative, Urine Urobilinogen 0.2, Ur Leukocyte Esterase Negative, Urine RBC Occasional, Urine WBC 3-5, Ur Squamous Epith Cells 3-5, Urine Bacteria Trace 03/19/24 14:48: Sodium 132 L, Potassium 5.3 H, Chloride 102, Carbon Dioxide < 5 L* D, Anion Gap 30.3 H, BUN 33 H, Creatinine 1.30 H, Estimated Creat Clear 46, Estimated GFR 43 L, Est GFR ( Amer) 51 L, Glucose 433 H*, Lactate 2.1, Calcium 10.0, Phosphorus 4.4, Magnesium 2.0, Total Bilirubin 0.8, AST 26, ALT 18, Alkaline Phosphatase 166 H, Troponin I < 0.01, Total Protein 8.4 H, Albumin 3.6, Globulin 4.8 H, Albumin/Globulin Ratio 0.8 L I & O for Last 24 hours: Intake & Output 03/16/24 03/17/24 03/18/24 03/19/24 23:59 23:59 23:59 23:59 Intake Total 22.085 / 22.085 Balance 22.085 / 22.085 Weight 123.065 kg Constitutional Constitutional: no acute distress *Routine HEENT Exam Head: Present normocephalic Eye: Present EOMI and PERRL ENT: Present mucous membranes moist *Routine Neck Exam Neck: Present supple; Absent lymphadenopathy *Routine Respiratory Exam Respiratory: Present CTA bilaterally *Routine Cardiovascular Exam Cardiovascular: Present RRR *Routine Abdominal Exam Abdominal: Present soft and normoactive bowel sounds; Absent tenderness *Routine Rectal Exam Rectal:: deferred *Routine Genitalia Exam Genitalia:: deferred *Routine Extremities Exam Extremities: Absent cyanosis, clubbing or edema *Routine Skin Exam Skin: Present warm; Absent rash *Routine Neurological Exam Neurological: Present alert and oriented X3 Assessment and Plan *Assessment and plan (1) DKA (diabetic ketoacidosis): Status: Acute Category: Medical Code(s): E11.10 - Type 2 diabetes mellitus with ketoacidosis without coma (2) Diabetes: Status: Acute Category: Medical Code(s): E11.9 - Type 2 diabetes mellitus without complications (3) CAD (coronary artery disease): Status: Chronic Qualifiers: Associated angina: without angina Coronary Disease-Associated Artery/Lesion type: [place] artery [place] vs. transplanted heart: [place] heart Qualified Code(s): I25.10 - Atherosclerotic heart disease of [place] coronary artery without angina pectoris Category: Medical Code(s): I25.10 - Atherosclerotic heart disease of [place] coronary artery without angina pectoris (4) Hyperlipemia: Status: Chronic Qualifiers: Hyperlipidemia type: other hyperlipidemia Qualified Code(s): E78.49 - Other hyperlipidemia Category: Medical Code(s): E78.5 - Hyperlipidemia, unspecified (5) Essential hypertension: Status: Chronic Category: Medical Code(s): I10 - Essential (primary) hypertension Plan Patient is a 53-year-old female with past medical history of diabetes mellitus CAD hypertension hyperlipidemia who presented to hospital due to not feeling well, nausea vomiting shortness of breath. Patient mentions she feels like she is in DKA. Denies medication noncompliance. According to the patient she noticed fevers as well, on arrival to the hospital she did not spike any fevers, denies chest pain. Assessment and plan DKA Hyperglycemia, anion gap metabolic acidosis Nausea vomiting likely secondary to viral gastroenteritis, DKA Start IV insulin IV fluids Every hour glucose checks Closely monitor BMP Hyponatremia Likely due to hyperglycemia Monitor Leukocytosis, subjective fevers Check blood cultures, check UA chest x-ray negative for acute cardiopulmonary process Check blood cultures Diabetes mellitus CAD Hypertension Hyperlipidemia Resume home inhaler, metoprolol, Xarelto
[2024-03-19 17:17] LABS: Reflex Lactic (2 hrs) Add Lactic Reflex
--- NOTE | 2024-03-19 17:26 | PC.NURSE ---
Insulin drip maintained per protocol. Patient alert and oriented times 4. Pt tachycardic and tachypnic. O2 remained at 100 but given 1 LNC for comfort. Excoriation noted in groin folds and periarea, powder applied. Lung sounds diminished.
[2024-03-19] MEDS: SODIUM CHLORIDE 0.9% 25ML BAG 25 ML IV (17:54)
[2024-03-19] MEDS: PROMETHAZINE HCL 25MG/ML 1ML VIAL 12.5 MG IV ×2 (17:54→21:43)
[2024-03-19] MEDS: RIVAROXABAN 2.5MG TABLET 2.5 MG PO (18:08)
--- NOTE | 2024-03-19 18:11 | PC.NURSE ---
Pt states last bm was 03/17
[2024-03-19] MEDS: METOPROLOL TARTRATE 100 MG 100 EACH PO (18:15)
[2024-03-19 18:25] LABS: Chloride 105 mmol/L (98-107); Sodium 134 mmol/L (136-145)
[2024-03-19 18:27] LABS: Lactic Acid Follow up (RFLX 2) 1.8 mmol/L (0.7-2.1)
[2024-03-19 18:28] LABS: Alanine Aminotransferase 16 U/L (12-78); Albumin Level 3.8 g/dl (3.5-5.0); Albumin/Globulin Ratio 0.7 (1.1-1.8); Alkaline Phosphatase 161 U/L (38-126); Aspartate Amino Transferase 30 U/L (14-36); Blood Urea Nitrogen 32 mg/dl (7-17); Calcium 10.3 mg/dl (8.4-10.2); Creatinine Clearance Estimated 50 mL/min (50-200); Estimated Glomerular Filt Rate 47 ml/min (>60); GFR (African American) 56 ML/MIN (>60); Globulin 5.3 g/dL (1.3-3.2); Glucose 270 mg/dl (74-100); Phosphorous 3.2 mg/dl (2.5-4.5); Total Protein,Serum 9.1 g/dl (6.3-8.2)
[2024-03-19 18:30] LABS: Carbon Dioxide 7 mmol/L (22.0-30.0)
[2024-03-19 18:48] LABS: POC Glucose,Bedside 410 (70-110)
[2024-03-19 18:48] LABS: POC Glucose,Bedside 341 (70-110)
[2024-03-19 18:48] LABS: POC Glucose,Bedside 283 (70-110)
[2024-03-19 18:48] LABS: POC Glucose,Bedside 215 (70-110)
[2024-03-19 18:48] LABS: POC Glucose,Bedside 377 (70-110)
--- NOTE | 2024-03-19 18:54 | PC.WOUNDNOTE ---
Addendum entered by Keisha Rueda RN 03/19/24 19:08: Right foot not left Original Note: left foot
--- NOTE | 2024-03-19 18:55 | PC.WOUNDNOTE ---
Addendum entered by Keisha Rueda RN 03/19/24 19:08: JOSE not MILDRED Original Note: MILDRED
--- NOTE | 2024-03-19 18:56 | PC.WOUNDNOTE ---
Addendum entered by Keisah Rueda RN 03/19/24 19:08: JOSE not MILDRED Original Note: MILDRED
--- NOTE | 2024-03-19 18:57 | PC.WOUNDNOTE ---
Addendum entered by Keisha Rueda RN 03/19/24 19:08: JOSE not MILDRED Original Note: MILDRED
[2024-03-19 18:58] LABS: Troponin I < 0.01 ng/ml (0.00-0.034)
--- NOTE | 2024-03-19 19:41 | PC.NURSE ---
AT THE START OF THIS RN'S SHIFT; INSULIN GTT INFUSING @ 18 UNITS/HR FSBS IS 144 @ 1930; PER PROTOCOL THIS RN IS TO DECREASE GTT RATE BY HALF SINCE FSBS IS LESS THAN OR EQUAL TO 200 INSULIN GTT DECREASED TO 9 UNITS/HR AND NOW THIS RN WILL MOVE TO STEP 3 OF THE DKA PROTOCOL AND TITRATE GTT BASED ON ADJUSTABLE RATE INSULIN INFUSION CHART
[2024-03-19] MEDS: D5W/0.9% NaCl w/20mEq KCL 1,000 ML 75 ML IV (20:42)
[2024-03-19 21:04] LABS: POC Glucose,Bedside 112 (70-110)
[2024-03-19 21:04] LABS: POC Glucose,Bedside 144 (70-110)
[2024-03-19] MEDS: ATORVASTATIN 40MG TABLET 40 MG PO (21:19)
[2024-03-19] MEDS: PREGABALIN 200 MG 200 EACH PO (21:20)
[2024-03-19] MEDS: INSULIN REGULAR, HUMAN 100 UNIT in 0.9 % SODIUM CHLORIDE 100 ML 7.07000000000000028 UNIT IV (21:32)
[2024-03-19 22:01] LABS: Alanine Aminotransferase 14 U/L (12-78); Albumin Level 3.4 g/dl (3.5-5.0); Albumin/Globulin Ratio 0.8 (1.1-1.8); Alkaline Phosphatase 133 U/L (38-126); Anion Gap 19.1 mEq/L (5-15); Aspartate Amino Transferase 19 U/L (14-36); Bilirubin,Total 0.7 mg/dl (0.2-1.3); Blood Urea Nitrogen 30 mg/dl (7-17); Calcium 9.5 mg/dl (8.4-10.2); Carbon Dioxide 13 mmol/L (22.0-30.0); Chloride 106 mmol/L (98-107); Creatinine Clearance Estimated 60 mL/min (50-200); Estimated Glomerular Filt Rate 58 ml/min (>60); GFR (African American) 70 ML/MIN (>60); Globulin 4.4 g/dL (1.3-3.2); Glucose 130 mg/dl (74-100); Magnesium 1.8 mg/dl (1.6-2.3); Potassium 4.1 mmoL/L (3.5-5.1); Sodium 134 mmol/L (136-145); Total Protein,Serum 7.8 g/dl (6.3-8.2)
[2024-03-19 22:15] LABS: POC Glucose,Bedside 113 (70-110)
[2024-03-19 22:15] LABS: POC Glucose,Bedside 101 (70-110)
[2024-03-20] VITALS (16 sets, daily range): BP systolic 104–146; BP diastolic 45–75; PULSE 83–139; RESP 14–28; TEMP 36.5–37.4; O2SAT 89–100; BMI 43.6
[2024-03-20 02:35] LABS: POC Glucose,Bedside 152 (70-110)
[2024-03-20 02:35] LABS: POC Glucose,Bedside 122 (70-110)
[2024-03-20 02:35] LABS: POC Glucose,Bedside 131 (70-110)
[2024-03-20 02:43] LABS: Chloride 113 mmol/L (98-107); Potassium 4.3 mmoL/L (3.5-5.1); Sodium 136 mmol/L (136-145)
[2024-03-20 02:46] LABS: Anion Gap 15.3 mEq/L (5-15); Blood Urea Nitrogen 30 mg/dl (7-17); Calcium 9.2 mg/dl (8.4-10.2); Carbon Dioxide 12 mmol/L (22.0-30.0); Creatinine Clearance Estimated 60 mL/min (50-200); Estimated Glomerular Filt Rate 58 ml/min (>60); GFR (African American) 70 ML/MIN (>60); Glucose 150 mg/dl (74-100)
[2024-03-20 02:52] LABS: Magnesium 1.9 mg/dl (1.6-2.3); Phosphorous 2.4 mg/dl (2.5-4.5)
[2024-03-20] MEDS: 0.9% NaCl w/20mEq KCL 1,000 ML 150 ML IV ×2 (04:04→11:05)
[2024-03-20 06:38] LABS: Anion Gap 15.2 mEq/L (5-15); Blood Urea Nitrogen 27 mg/dl (7-17); Calcium 9.6 mg/dl (8.4-10.2); Carbon Dioxide 17 mmol/L (22.0-30.0); Chloride 107 mmol/L (98-107); Creatinine Clearance Estimated 54 mL/min (50-200); Estimated Glomerular Filt Rate 52 ml/min (>60); GFR (African American) 62 ML/MIN (>60); Glucose 199 mg/dl (74-100); Potassium 4.2 mmoL/L (3.5-5.1); Sodium 135 mmol/L (136-145)
[2024-03-20 06:39] LABS: Magnesium 1.9 mg/dl (1.6-2.3); Phosphorous 2.2 mg/dl (2.5-4.5)
[2024-03-20 06:41] LABS: Basophils # 0.1 K/mm3 (0-0.2); Basophils % 0.4 % (0.1-2.0); Eosinophils # 0.2 K/mm3 (0.0-0.4); Eosinophils % 0.9 % (0.1-12.0); Hematocrit 41.5 % (37.0-47.0); Hemoglobin 12.9 g/dL (12.2-16.2); Lymphocytes # 1.2 K/mm3 (0.7-4.5); Lymphocytes % 7.5 % (10-50); Mean Corpuscular HGB Conc 31.1 g/dL (31.8-35.4); Mean Corpuscular Hemoglobin 26.4 pg (27.0-31.2); Mean Corpuscular Volume 84.8 fl (81-99); Mean Platelet Volume 8.8 fl (7.4-10.4); Monocytes % 6.4 % (1.7-9.3); Neutrophils # 13.6 K/mm3 (1.8-7.8); Neutrophils % 84.7 % (37.0-80.0); Platelet Count 364 K/mm3 (142-424); Red Blood Count 4.89 M/mm3 (4.20-5.40); Red Cell Distribution Width 16.8 % (11.5-17.5); White Blood Count 16.1 K/mm3 (4.8-10.8)
[2024-03-20 06:42] LABS: MANUAL DIFFERENTIAL MANUAL DIFFERENTIAL (MANUAL DIFF)
[2024-03-20 08:11] LABS: POC Glucose,Bedside 187 (70-110)
[2024-03-20 08:11] LABS: POC Glucose,Bedside 177 (70-110)
[2024-03-20 08:11] LABS: POC Glucose,Bedside 185 (70-110)
[2024-03-20 08:32] LABS: Eosinophils % 1 % (0-3); Lymphocytes % 6 % (10-50); Monocytes % 8 % (2-9); Neutrophils % 73 % (42-76); Total Cells Counted 100
[2024-03-20 08:36] LABS: Platelet Estimate Normal; RBC Morphology Normal
[2024-03-20] MEDS: DAPAGLIFLOZIN PROPANEDIOL 10 MG TABLET PO (09:07)
[2024-03-20] MEDS: ISOSORBIDE MONO 60MG TAB.ER.24H 60 MG PO (09:08)
[2024-03-20] MEDS: ASPIRIN 81MG CHEWABLE TABLET 81 MG PO (09:08)
[2024-03-20] MEDS: METOPROLOL TARTRATE 50MG TABLET 100 MG PO ×2 (09:09→21:31)
[2024-03-20] MEDS: RIVAROXABAN 2.5MG TABLET 2.5 MG PO ×2 (09:09→17:04)
[2024-03-20] MEDS: PREGABALIN 100MG CAPSULE 200 MG PO ×2 (09:10→21:31)
[2024-03-20 09:26] LABS: POC Glucose,Bedside 180 (70-110)
[2024-03-20] MEDS: SODIUM CHLORIDE 0.9% 25ML BAG 25 ML IV ×2 (09:31→21:30)
[2024-03-20] MEDS: PROMETHAZINE HCL 25MG/ML 1ML VIAL 12.5 MG IV ×2 (09:31→21:30)
[2024-03-20 10:13] LABS: POC Glucose,Bedside 171 (70-110)
[2024-03-20 10:40] LABS: Chloride 114 mmol/L (98-107); Potassium 4.7 mmoL/L (3.5-5.1); Sodium 135 mmol/L (136-145)
[2024-03-20 10:43] LABS: Alanine Aminotransferase 14 U/L (12-78); Albumin Level 2.9 g/dl (3.5-5.0); Albumin/Globulin Ratio 0.7 (1.1-1.8); Alkaline Phosphatase 107 U/L (38-126); Anion Gap 12.7 mEq/L (5-15); Aspartate Amino Transferase 27 U/L (14-36); Bilirubin,Total 0.8 mg/dl (0.2-1.3); Blood Urea Nitrogen 26 mg/dl (7-17); Calcium 9.2 mg/dl (8.4-10.2); Carbon Dioxide 13 mmol/L (22.0-30.0); Creatinine Clearance Estimated 66 mL/min (50-200); Estimated Glomerular Filt Rate 65 ml/min (>60); GFR (African American) 79 ML/MIN (>60); Globulin 4.3 g/dL (1.3-3.2); Glucose 192 mg/dl (74-100); Magnesium 1.9 mg/dl (1.6-2.3); Total Protein,Serum 7.2 g/dl (6.3-8.2)
[2024-03-20 10:52] LABS: Phosphorous 2.2 mg/dl (2.5-4.5)
[2024-03-20 11:14] LABS: POC Glucose,Bedside 166 (70-110)
[2024-03-20 13:10] LABS: POC Glucose,Bedside 152 (70-110)
[2024-03-20 13:59] LABS: POC Glucose,Bedside 173 (70-110)
[2024-03-20 14:24] LABS: Alanine Aminotransferase 14 U/L (12-78); Albumin Level 2.8 g/dl (3.5-5.0); Albumin/Globulin Ratio 0.7 (1.1-1.8); Alkaline Phosphatase 114 U/L (38-126); Anion Gap 12.9 mEq/L (5-15); Aspartate Amino Transferase 21 U/L (14-36); Bilirubin,Total 0.4 mg/dl (0.2-1.3); Blood Urea Nitrogen 24 mg/dl (7-17); Carbon Dioxide 15 mmol/L (22.0-30.0); Chloride 112 mmol/L (98-107); Creatinine Clearance Estimated 60 mL/min (50-200); Estimated Glomerular Filt Rate 58 ml/min (>60); GFR (African American) 70 ML/MIN (>60); Globulin 3.9 g/dL (1.3-3.2); Glucose 177 mg/dl (74-100); Magnesium 1.9 mg/dl (1.6-2.3); Phosphorous 2.3 mg/dl (2.5-4.5); Potassium 3.9 mmoL/L (3.5-5.1); Sodium 136 mmol/L (136-145); Total Protein,Serum 6.7 g/dl (6.3-8.2)
--- OUTSIDE RECORDS SUMMARY | 2024-03-20 14:39 | XMS_ITS | Clinical Summary ---
Author Name Unknown Address [address] [place] [address] Phone Organization [facility] Address [address] [place] [address] Phone Care Team Providers Care Commercial Collections Driver Name Role Phone Kaity Emerson Unavailable Unavailable Conditions or Problems Problem Name Problem Code Onset Date Status Entry Date Provider Comment Standard Description Annotate Candidiasis , vaginal 76364342 (SNOMED CT) 03/18 Active 03/19 Charlene W Candidiasis of vagina Thrush, oral 89984861 (SNOMED CT) 03/11 Inactive 03/11 Charlene W Candidiasis of mouth Problem excluded fro m report: Other obesity due to excess calories 585490360 (SNOMED CT) 03/15 Active 03/15 Cindi Traore Simple obesity Thrush, oral 74526652 (SNOMED CT) 03/11 Active 03/11 Jeet Rene MD Candidiasis of mouth Thrush, oral 21826218 (SNOMED CT) 03/11 Removed 03/11 Elizabeth Sims Candidiasis of mouth Hx of left TMA 28196165749 518069 (SNOMED CT) 03/04 Active 03/01 Charlene Mendez History of amputation of left lesser toe DM non-pressur e chronic ulcer of left foot, plantar surface, with bone involvement without evidence of necrosis (E11.621) 937496632 (SNOMED CT) 03/01 Inactive 03/01 Luna Hughes Chronic ulcer of foot Chronic osteomyelit is, left foot M86.672 (ICD-10-CM) 03/01 Active 03/01 Luna Hughes Other chronic osteomyelitis, left ankle and foot Coronary artery disease (CAD) 73437834 (SNOMED CT) 03/01 Active 03/01 Luna Hughes Coronary arteriosclerosi s Benign Essential Hypertensio n 0645792 (SNOMED CT) 03/01 Active 03/01 Luna Hughes Benign essential hypertension Cellulitis, foot, left 841532342 (SNOMED CT) 03/01 Active 03/01 Luna Hughes Cellulitis of foot DM Type II E11.9 (ICD-10-CM) 03/01 Active 03/01 Luna Hughes Type 2 diabetes mellitus without complications BMI 45.0-49.9 Z68.42 (ICD-10-CM) 12/14 Resolved 12/14 Luna Hughes Body mass index [BMI] 45.0-49.9, adult MORBID OBESITY 107057005 (SNOMED CT) 12/14 Resolved 12/14 Luna Hughes Morbid obesity TOBACCO USER 313588159 (SNOMED CT) 12/03 Resolved 12/03 Luna Saul Tobacco user C. DIFF COLITIS A04.7 (ICD-10-CM) 12/03 Resolved 12/03 Luna Hughes Enterocolitis due to Clostridium difficile DM II, UNCONTROLLE D E11.65 (ICD-10-CM) 12/03 Resolved 12/03 Luna Hughes Type 2 diabetes mellitus with hyperglycemia FEVER 986277555 (SNOMED CT) 12/03 Resolved 12/03 Luna Saul Fever VAGINAL CANDIDIASIS 43583443 (SNOMED CT) 12/03 Resolved 12/03 Luna Saul Candidiasis of vagina DIVERTICULI TIS OF SIGMOID COLON 299894488 (SNOMED CT) 12/03 Resolved 12/03 Luna Saul Diverticulitis of sigmoid colon BMI 45.0-49.9 Z68.42 (ICD-10-CM) 12/14 Removed 12/14 Charlene Mendez Body mass index [BMI] 45.0-49.9, adult MORBID OBESITY 363205374 (SNOMED CT) 12/14 Removed 12/14 Charlene Mendez Morbid obesity DM II, UNCONTROLLE D E11.65 (ICD-10-CM) 12/03 Removed 12/03 Charlene W Type 2 diabetes mellitus with hyperglycemia DIARRHEA OF PRESUMED INFECTIOUS ORIGIN 12359163 (SNOMED CT) 12/03 Correction 12/03 Charlene W Diarrhea of presumed infectious origin ABDOMINAL PAIN, LEFT LOWER QUADRANT 568591820 (SNOMED CT) 12/03 Correction 12/03 Charlene W Left lower quadrant pain WEAKNESS 55067077 (SNOMED CT) 12/03 Correction 12/03 Charlene W Asthenia WEIGHT LOSS 426798106 (SNOMED CT) 12/03 Correction 12/03 Charlene W Abnormal weight loss DIARRHEA 09898409 (SNOMED CT) 12/03 Correction 12/03 Charlene Mendez Diarrhea DM TYPE II E11.9 (ICD-10-CM) 12/03 Correction 12/03 Luna Hughes Type 2 diabetes mellitus without complications TOBACCO USER 664878952 (SNOMED CT) 12/03 Removed 12/03 Luna Saul Tobacco user WEIGHT LOSS 743306894 (SNOMED CT) 12/03 Removed 12/03 Luna Saul Abnormal weight loss WEAKNESS 25671368 (SNOMED CT) 12/03 Removed 12/03 Luna Saul Asthenia FEVER 793424881 (SNOMED CT) 12/03 Removed 12/03 Luna Saul Fever C. DIFF COLITIS A04.7 (ICD-10-CM) 12/03 Removed 12/03 Luna Saul Enterocolitis due to Clostridium difficile DIARRHEA OF PRESUMED INFECTIOUS ORIGIN 56921435 (SNOMED CT) 12/03 Removed 12/03 Luna Saul Diarrhea of presumed infectious origin DIARRHEA 90230778 (SNOMED CT) 12/03 Removed 12/03 Luna Saul Diarrhea DIVERTICULI TIS OF SIGMOID COLON 096829373 (SNOMED CT) 12/03 Removed 12/03 Luna Saul Diverticulitis of sigmoid colon ABDOMINAL PAIN, LEFT LOWER QUADRANT 153431298 (SNOMED CT) 12/03 Removed 12/03 Luna Hughes Left lower quadrant pain VAGINAL CANDIDIASIS 87042323 (SNOMED CT) 12/03 Removed 12/03 Luna Hughes Candidiasis of vagina Medications Medication Instructions Start Date Stop Date Generic Name NDC Provider DOXYCYCLINE MONOHYDRATE 100 MG CAPS Take one capsule by mouth twice daily DOXYCYCLINE MONOHYDRATE [id number] Jeet Rene MD TEFLARO SOLR 600mg IV Q 12hrs x 4wks Bioscrip/Dose, line care, labs [facility] CEFTAROLINE FOSAMIL SOLR [phone] Kaity Emerson DOXYCYCLINE MONOHYDRATE 100 MG CAPS Take one capsule by mouth twice daily DOXYCYCLINE MONOHYDRATE 35518537686 Jeet Rene MD FLUCONAZOLE 100 MG TABS Take two tablets by mouth once daily FLUCONAZOLE 71927306989 Jeet Rene MD DIFLUCAN 100 MG TABS Take two tablets by mouth once daily FLUCONAZOLE 18461113965 Jeet Rene MD FLAGYL 500 MG ORAL TABLET Take one tablet by mouth three times daily METRONIDAZOLE 50320247880 Jeet Rene MD ONDANSETRON 4 MG TBDP Take one tablet by mouth every 12 hours ONDANSETRON 24337504696 Jeet Rene MD TEFLARO SOLR 600mg IV Q 12hrs x 4wks Bioscrip/Dose, line care, labs [facility] CEFTAROLINE FOSAMIL SOLR [id number] Kaity Emerson DAPTOMYCIN SOLR 750mg IV daily x 6wks Bioscrip/Dose, line care labs [facility] DAPTOMYCIN SOLR [phone] Kaity Emerson CEFEPIME HCL SOLN 2gm IV q 12hrs x 6wks Bioscrp, Dose, line care, labs [facility] CEFEPIME HCL SOLN [id number] Kaity Emerson FLUCONAZOLE 200 MG TABS Take one tablet by mouth daily FLUCONAZOLE 52664088216 Jeet Rene MD CEFEPIME HCL SOLN 2gm IV q 12hrs x 6wks Bioscrp, Dose, line care, labs [facility] CEFEPIME HCL SOLN [phone] Kaity Emerson DAPTOMYCIN SOLR 750mg IV daily x 6wks Bioscrip/Dose, line care labs [facility] DAPTOMYCIN SOLR [phone] Kaity Emerson FLAGYL 500 MG ORAL TABLET Take one tablet by mouth three times daily METRONIDAZOLE 83114948316 Jeet Rene MD TETRACYCLINE HCL 500 MG CAPS TETRACYCLINE HCL 84753537879 Vivek D HYDROMORPHONE HCL 2 MG TABS TAKE ONE TABLET BY MOUTH EVERY 4 HOURS NEEDED FOR moderate TO SEVERE pain MAY CAUSE DROWSINESS HYDROMORPHONE HCL 76413432030 Vivek D [employer]TOUCH ULTRA STRP USE 1 STRIP TO CHECK GLUCOSE THREE TIMES DAILY GLUCOSE BLOOD 32735572725 Vivek D LACTINEX ORAL TABLET CHEWABLE one by mouth three times a day LACTOBACILLUS 88472236366 Jeet Rene MD FLAGYL 500 MG ORAL TABLET one by mouth three times a day x 2 weeks METRONIDAZOLE 68479068287 Jeet Rene MD LEVAQUIN 750 MG ORAL TABLET one by mouth daily x 2 weeks LEVOFLOXACIN 40437064800 Jeet Rene MD INVANZ (IJ) SOLUTION RECONSTITUTED 1 gm IV daily OPAT ERTAPENEM SODIUM SOLR 01997134107 Jeet Rene MD LANTUS 100 UNIT/ML SOLN INSULIN GLARGINE 59643409043 Aury Z DIFLUCAN TABLET FLUCONAZOLE TABS 71657054022 Aury Z INVANZ (IJ) SOLUTION RECONSTITUTED 1 gm IV daily OPAT ERTAPENEM SODIUM SOLR 15291643767 Peggy Sharma MD DIFLUCAN 200 MG TABS take one daily for yeast infection FLUCONAZOLE 54335555459 Peggy Sharma MD LORTAB 10-500 MG ORAL TABLET HYDROCODONE-ACET AMINOPHEN 62708957849 Peggy Sharma MD NORCO TABS HYDROCODONE-ACET AMINOPHEN TABS 10318963589 Peggy Sharma MD LYRICA CAPS PREGABALIN CAPS 54102176895 Jahaira G CYMBALTA CPEP DULOXETINE HCL CPEP 24932968095 Jahaira G LASIX TABS FUROSEMIDE TABS 04808241656 Jahaira G NORCO TABS HYDROCODONE-ACET AMINOPHEN TABS 09039628957 Jahaira Merlos ATENOLOL TABS ATENOLOL TABS 12942648771 Jahaira Gaurang GLYBURIDE TABS GLYBURIDE TABS 67538700875 Jahaira G INVANZ (IJ) SOLUTION RECONSTITUTED ERTAPENEM SODIUM SOLR 58094819192 Jahaira Gaurang DIFLUCAN TABLET FLUCONAZOLE TABS 89172455795 Jahaira Merlos Medications Administered No information available. Allergies, Adverse Reactions, Alerts Allergy Name Reaction Description Start Date Severity Statu s Provider PERCOCET Mild Active Vivek D AMOXICILLIN Mild Active Vivek D CODEINE Critical Active Peggy Sharma MD MORPHINE Critical Active Peggy Sharma MD Results Date Name Value Unit Range Flag Description Lab Report: CBC w Auto Diff BASOPHIL % 0.3 % 0.0-1.0 N Basophils/ 100 leukocytes in Blood by Manual count MONOCYTE BF 5.9 % 0.0-12.0 N monocyte s as percent of body fluid leukocytes LYMPHS % 27.1 % 24.0-44.0 N Lymphocyte s/100 leukocytes in Blood by Automated count PMN % 64.8 % 41.0-71.0 N Neutrophils /100 leukocytes in Blood by Automated count BASOABSOLMAN 0.06 K/MCL {Cells}/u L 0.00-0.20 N basophils, absolute, manual MONOCYTABMAN 1.01 K/MCL {Cells}/u L 0.00-1.00 H monocytes, absolute, manual LYMPHSABSMAN 4.65 K/MCL {Cells}/u L 0.60-4.80 N lymphocytes, absolute, manual Lab Report: Basic Metabolic Panel GFR EST 115 mL/min estimated darren merular filtration rate Lab Report: CK CPK 28 U/L 20-180 Creatine jae se [Enzymatic activity/volume] in Serum or Plasma Lab Report: CBC WITH AUTO DI FFERENTIAL [id number]-GE-[id number] 0.0 /100 WBC 0.0-0.2 GE use only - fo r [employer] import when terms are not otherwise specified IMMATUREGRAN 0.02 10*3/MM3 0.00-0.05 Immature granulocytes [#/volume] in Blood BASO# 0.04 10*3/mm3 0.00-0.20 Basophils [#/vol ume] in Blood EOS ABSLT 0.65 10*3/uL 0.00-0.40 H Eosinophi ls [#/volume] in Blood MONOSCT AUTO 0.80 10*3/uL 0.10-0.90 Monocy elaina [#/volume] in Blood by Automated count LYMPHCT AUTO 1.31 10*3/mm3 0.70-3.10 Lymph ocytes [#/volume] in Blood by Automated count ABS NEUTROPH 5.37 10*3/uL 1.70-7.00 Neutro phils [#/volume] in Blood IMM GRANU % 0.2 % 0.0-0.5 Immature granulocytes/100 leukocytes in Blood % EOS AUTO 7.9 % 0.3-6.2 H Eosinophil s/100 leukocytes in Blood by Automated count MONOCYTE % 9.8 % 5.0-12.0 Monocytes /100 leukocytes in Blood by Automated count LYMPHOCY BF 16.0 % 19.6-45.3 L lymphoc ytes as percent of body fluid leukocytes NEUTROP BF 65.6 % 42.7-76.0 Neutroph ils/100 leukocytes in Body fluid PLATELETS 244 10*3/mm3 140-450 Platelets [#/volume] in Blood by Automated count RDW_ 17.9 12.3-15.4 H RDW, no uni ts MCHC 29.1 G/DL 31.5-35.7 L MCHC [Mass/ volume] by Automated count MCH 22.9 pg 26.6-33.0 L MCH [Entiti c mass] by Automated count MCV 78.8 fL 79.0-97.0 L MCV [Entiti c volume] by Automated count HCT 36.4 % 34.0-46.6 Hematocrit [Volume Fraction] of Blood by Automated count HGB 10.6 g/dL 12.0-15.9 L Hemoglobin [Mass/volume] in Blood RBC 4.62 10*6/mm3 3.77-5.28 Erythrocyt es [#/volume] in Blood by Automated count WBC 8.19 10*3/mm3 3.40-10.8 0 Leukocytes [#/volume] in Blood by Automated count Lab Report: SEDIMENTATION RA TE ESR 69 mm/h 0-30 H Erythrocyte sedimentation rate by Westergren method Lab Report: C-REACTIVE PROTE IN CRP 1.94 mg/dL 0.00-0.50 H C reactive protein [Mass/volume] in Serum or Plasma Lab Report: COMPREHENSIVE ME TABOLIC PANEL ANIONGAP 8.0 mmol/L 5.0-15.0 anion gap, serum BUN/CREAT 21.9 7.0-25.0 Urea nitrogen/Creatinine [Mass Ratio] in Serum or Plasma GFRC 44 mL/min/1. 73m2 >60 L Glomerular Filtration Rate Calculation BILI TOTAL 0.2 mg/dL 0.0-1.2 Bilirubin. total [Mass/volume] in Serum or Plasma ALK PHOS 88 U/L 39-117 Alkaline ann sphatase [Enzymatic activity/volume] in Blood SGOT (AST) 14 U/L 1-32 Aspartate aminotransferase [Enzymatic activity/volume] in Serum or Plasma SGPT (ALT) 11 U/L 1-33 Alanine aminotransferase [Enzymatic activity/volume] in Serum or Plasma ALBUMIN 3.70 g/dL 3.50-5.20 Albumin [Mass/volume] in Serum or Plasma PROTEIN, TOT 7.2 g/dL 6.0-8.5 Protein [Mass/volume] in Serum or Plasma CALCIUM 9.6 mg/dL 8.6-10.5 Calcium [Moles/volume] in Serum or Plasma CO2 25.0 mmol/L 22.0-29.0 Carbon diox iliana, total [Moles/volume] in Venous blood CHLORIDE 103 mmol/L 98-107 Chloride [Moles/volume] in Serum or Plasma POTASSIUM 4.8 mmol/L 3.5-5.2 Potassium [Moles/volume] in Serum or Plasma SODIUM 136 mmol/L 136-145 Sodium [Moles/volume] in Serum or Plasma CREATININE 1.28 mg/dL 0.57-1.00 H Creatini ne [Mass/volume] in Serum or Plasma BUN 28 mg/dL 6-20 H Urea nitrogen [Mass/volume] in Serum or Plasma GLUCOSE SER 155 mg/dL 65-99 H Glucose [Mass/volume] in Serum or Plasma Office Visit: 6 MEDS REVIEW Done Documenta tion of current medications (procedure) DIET SURGICAL SUPPLY ASSISTANT yes Dietary management education, guidance, and counseling (procedure) ORALTOBACUSE Never Tobacco smoking status CIGARET SMKG yes Tobacco smoking status SMOK STATUS Former smoker Tobacco smoking status Plan of Care Type Date Detail Pending order Continue IV anti biotics Pending order Continue oral an tibiotics Pending order Weekly Central L ine Care Pending order CMP Pending order CBC with Differe ntial Pending order C- reactive prot ein Pending order Sedimentation Ra te (ESR) Pending order Continue IV anti biotics Pending order Continue oral an tibiotics Pending order Weekly Labs (Con tinue) Pending order Weekly Central L ine Care Pending order CMP Pending order CBC w/o Differen tial Pending order CPK Pending order Sedimentation Ra te (ESR) Pending order C- reactive prot ein Pending order CMP Pending order C- reactive prot ein Pending order Sedimentation Ra te (ESR) Pending order Continue IV anti biotics Pending order Weekly PICC Line Care Pending order Weekly Labs (Con tinue) Pending order CMP Pending order CBC w/o Differen tial Pending order CPK Pending order Sedimentation Ra te (ESR) Pending order Continue IV anti biotics Pending order Weekly PICC Line Care Pending order Weekly Labs (Con tinue) Pending order CMP Pending order CBC w/o Differen tial Pending order CPK Pending order Sedimentation Ra te (ESR) Pending order New IV antibioti c Pending order Weekly Labs (Con tinue) Pending order Weekly Central L ine Care Pending order CMP Pending order CBC w/o Differen tial Pending order C- reactive prot ein Pending order Sedimentation Ra te (ESR) Pending order STAT Labs Pending order Discontinue IV a ntibiotics Pending order BMP Pending order CBC w/o Differen tial Pending order New IV antibioti c Pending order Ertapenem Pending order CMP Pending order CBC with Differe ntial Pending order C-Diff PCR Pending order New IV antibioti c Patient education Medications Patient education Medications Patient education Medications Patient education Medications Patient education WEIGHT%20MANAG EMENT Patient education Medications Procedures Code Procedure Name Date Entry Date CPT-ca Continue IV antibiotics 2020 CPT-Cooral Continue oral antibiotics 20 06/05/07 CPT-wclc Weekly Central Line Care 202 11/21/06 CPT-73492 CMP [id number] CBC with Differential 2020 CPT-69216 C- reactive protein CPT-88298 Sedimentation Rate (ESR) 202 11/21/06 CPT-ca Continue IV antibiotics 2020 CPT-Cooral Continue oral antibiotics 20 05/04/24 CPT-cwl Weekly Labs (Continue) 04/08 CPT-wclc Weekly Central Line Care 202 11/20/23 CPT-91083 CMP CPT-86541 CBC w/o Differential [id number], [id number] CPK CPT-11247 Sedimentation Rate (ESR) 11/20/23 CPT-15679 C- reactive protein CPT-11604 CMP CPT-75842 C- reactive protein CPT-92780 Sedimentation Rate (ESR) 202 11/20/09 CPT-ca Continue IV antibiotics 2020 CPT-wpc Weekly PICC Line Care 03/18 CPT-cwl Weekly Labs (Continue) 03/18 CPT-01620 CMP CPT-50102 CBC w/o Differential [id number], [id number] CPK CPT-30283 Sedimentation Rate (ESR) 11/20/02 CPT-ca Continue IV antibiotics 2020 CPT-wpc Weekly PICC Line Care 03/11 CPT-cwl Weekly Labs (Continue) 03/11 CPT-72936 CMP CPT-03298 CBC w/o Differential [id number], [id number] CPK CPT-68464 Sedimentation Rate (ESR) 202 11/19/25 CPT-kayli New IV antibiotic CPT-cwl Weekly Labs (Continue) 03/04 CPT-wclc Weekly Central Line Care 11/19/18 CPT-57289 CMP CPT-17230 CBC w/o Differential CPT-73317 C- reactive protein CPT-82669 Sedimentation Rate (ESR) 202 11/19/18 CPT-sl STAT Labs CPT-DC Discontinue IV antibiotics 2 CPT-40300 BMP CPT-95379 CBC w/o Differential CPT-kayli New IV antibiotic CPT-J1335 Ertapenem CPT-24718 CMP CPT-36777 CBC with Differential 12/03 CPT-cdpcr C-Diff PCR CPT-kayli New IV antibiotic Vital Signs Date Name Value Unit Description BMI (Body Mass Index) 43.57 kg/m2 Bod y Mass Index (Ratio) Body Temperature 97.1 [degF] temperat ure E&M BP Diastolic 68 mm[Hg] blood pressu re, diastolic BP Systolic 102 mm[Hg] blood pressur e, systolic Heart Rate 76 /min pulse rate Respiratory Rate 16 /min respirat ory rate E&M Weight Measured 270 [lb_av] weight E& M Height 66 [in_us] height E&M Immunizations Vaccine Administration Date Standard Description CVX Co de Dose Unspecified Formulation Unspecified Formulation 88 Unknown Lona COVID-19 Vaccine Lona COVID-19 Vacci ne 212 0.5 mL Advance Directives Directive Description Start Date NO ADVANCED DIRECTIVES ESTABLISHED 03/11
--- NOTE | 2024-03-20 15:24 | P.PN_ITS ---
Subjective *Date: 03/20/24 *Time: 15:24 Interval history: seen at bedside, denied CP, SOB. complains of nausea, no acute events overnight Exam Data for Last 24 hours Vital signs and Labs for Last 24 Hours: Temp Pulse Resp BP Pulse Ox O2 Del Method O2 Flow Rate 99.4 F 85 20 112/59 L 89 L Room Air 1 03/20/24 04:00 03/20/24 14:00 03/20/24 14:00 03/20/24 14:00 03/20/24 14:00 03/20/24 14:00 03/19/24 17:00 Laboratory Results - last 24 hr 03/19/24 14:36: POC Glucose 410 H* 03/19/24 14:48: Troponin I < 0.01 03/19/24 15:37: POC Glucose 377 H* 03/19/24 16:34: POC Glucose 341 H* 03/19/24 17:37: POC Glucose 283 H 03/19/24 18:10: Sodium 134 L, Potassium 5.0, Chloride 105, Carbon Dioxide 7 L* D , Anion Gap 27.0 H, BUN 32 H, Creatinine 1.20 H, Estimated Creat Clear 50, Estimated GFR 47 L, Est GFR ( Amer) 56 L, Glucose 270 H D, Lactate 1.8, Calcium 10.3 H, Phosphorus 3.2 D, Magnesium 2.0, Total Bilirubin 1.0, AST 30, ALT 16, Alkaline Phosphatase 161 H, Troponin I < 0.01, Total Protein 9.1 H, Albumin 3.8, Globulin 5.3 H, Albumin/Globulin Ratio 0.7 L 03/19/24 18:40: POC Glucose 215 H 03/19/24 19:35: POC Glucose 144 H 03/19/24 20:34: POC Glucose 112 H 03/19/24 21:23: POC Glucose 101 03/19/24 21:40: Sodium 134 L, Potassium 4.1, Chloride 106, Carbon Dioxide 13 L, Anion Gap 19.1 H, BUN 30 H, Creatinine 1.00, Estimated Creat Clear 60, Estimated GFR 58 L, Est GFR ( Amer) 70 D, Glucose 130 H D, Calcium 9.5, Phosphorus 2.0 L D, Magnesium 1.8, Total Bilirubin 0.7, AST 19 D, ALT 14, Alkaline Phosphatase 133 H, Total Protein 7.8, Albumin 3.4 L D, Globulin 4.4 H, Albumin/Globulin Ratio 0.8 L 03/19/24 22:06: POC Glucose 113 H 03/19/24 23:05: POC Glucose 122 H 03/20/24 00:22: POC Glucose 131 H 03/20/24 02:20: Sodium 136, Potassium 4.3, Chloride 113 H, Carbon Dioxide 12 L, Anion Gap 15.3 H, BUN 30 H, Creatinine 1.00, Estimated Creat Clear 60, Estimated GFR 58 L, Est GFR ( Amer) 70, Glucose 150 H, Calcium 9.2, Phosphorus 2.4 L, Magnesium 1.9 03/20/24 02:27: POC Glucose 152 H 03/20/24 04:02: POC Glucose 185 H 03/20/24 05:53: POC Glucose 187 H 03/20/24 06:15: WBC 16.1 H, RBC 4.89, Hgb 12.9, Hct 41.5, MCV 84.8, MCH 26.4 L, MCHC 31.1 L, RDW 16.8, Plt Count 364, MPV 8.8, Neut % (Auto) 84.7 H, Lymph % (Auto) 7.5 L, [place] % (Auto) 6.4, Eos % (Auto) 0.9, Baso % (Auto) 0.4, Neut # (Auto) 13.6 H, Lymph # (Auto) 1.2, [place] # (Auto) 1.0, Eos # (Auto) 0.2, Baso # (Auto) 0.1, Total Counted 100, Neutrophils % (Manual) 73, Band Neutrophils % 12.0 H, Lymphocytes % (Manual) 6 L, Monocytes % (Manual) 8, Eosinophils % (Manual) 1, Platelet Estimate Normal, RBC Morphology Normal, Sodium 135 L, Po tassium 4.2, Chloride 107, Carbon Dioxide 17 L, Anion Gap 15.2 H, BUN 27 H, Creatinine 1.10 H, Estimated Creat Clear 54, Estimated GFR 52 L, Est GFR ( Amer) 62, Glucose 199 H D, Calcium 9.6, Phosphorus 2.2 L, Magnesium 1.9 03/20/24 08:03: POC Glucose 177 H 03/20/24 09:06: POC Glucose 180 H 03/20/24 10:06: POC Glucose 171 H 03/20/24 10:07: Sodium 135 L, Potassium 4.7, Chloride 114 H, Carbon Dioxide 13 L , Anion Gap 12.7, BUN 26 H, Creatinine 0.90, Estimated Creat Clear 66, Estimated GFR 65, Est GFR ( Amer) 79 D, Glucose 192 H, Calcium 9.2, Phosphorus 2.2 L, Magnesium 1.9, Total Bilirubin 0.8, AST 27 D, ALT 14, Alkaline Phosphatase 107, Total Protein 7.2, Albumin 2.9 L D, Globulin 4.3 H, Albumin/Globulin Ratio 0.7 L 03/20/24 11:07: POC Glucose 166 H 03/20/24 13:01: POC Glucose 152 H 03/20/24 13:50: Sodium 136, Potassium 3.9, Chloride 112 H, Carbon Dioxide 15 L, Anion Gap 12.9, BUN 24 H, Creatinine 1.00, Estimated Creat Clear 60, Estimated GFR 58 L, Est GFR ( Amer) 70, Glucose 177 H, Calcium 9.0, Phosphorus 2.3 L, Magnesium 1.9, Total Bilirubin 0.4, AST 21, ALT 14, Alkaline Phosphatase 114, Total Protein 6.7, Albumin 2.8 L, Globulin 3.9 H, Albumin/Globulin Ratio 0.7 L 03/20/24 13:51: POC Glucose 173 H I & O for Last 24 hours: Intake & Output 03/17/24 03/18/24 03/19/24 03/20/24 23:59 23:59 23:59 23:59 Intake Total 417.891 / 815.664 7125.898 / 1830.898 Output Total 1000 / 1000 Balance 417.891 / 417.891 830.898 / 830.898 Weight 123.065 kg 123.067 kg Constitutional Constitutional: no acute distress *Routine HEENT Exam Head: Present normocephalic Eye: Present EOMI and PERRL ENT: Present mucous membranes moist *Routine Neck Exam Neck: Present supple; Absent lymphadenopathy *Routine Respiratory Exam Respiratory: Present CTA bilaterally *Routine Cardiovascular Exam Cardiovascular: Present RRR *Routine Abdominal Exam Abdominal: Present soft and normoactive bowel sounds; Absent tenderness *Routine Extremities Exam Extremities: Absent cyanosis, clubbing or edema *Routine Skin Exam Skin: Present warm; Absent rash *Routine Neurological Exam Neurological: Present alert and oriented X3 Assessment and Plan *Assessment and plan (1) DKA (diabetic ketoacidosis): Status: Acute Category: Medical Code(s): E11.10 - Type 2 diabetes mellitus with ketoacidosis without coma (2) Diabetes: Status: Acute Category: Medical Code(s): E11.9 - Type 2 diabetes mellitus without complications (3) CAD (coronary artery disease): Status: Chronic Qualifiers: Coronary Disease-Associated Artery/Lesion type: [place] artery [place] vs. transplanted heart: [place] heart Associated angina: without angina Qualified Code(s): I25.10 - Atherosclerotic heart disease of [place] coronary artery without angina pectoris Category: Medical Code(s): I25.10 - Atherosclerotic heart disease of [place] coronary artery without angina pectoris (4) Hyperlipemia: Status: Chronic Qualifiers: Hyperlipidemia type: other hyperlipidemia Qualified Code(s): E78.49 - Other hyperlipidemia Category: Medical Code(s): E78.5 - Hyperlipidemia, unspecified (5) Essential hypertension: Status: Chronic Category: Medical Code(s): I10 - Essential (primary) hypertension Plan Patient is a 53-year-old female with past medical history of diabetes mellitus CAD hypertension hyperlipidemia who presented to hospital due to not feeling well, nausea vomiting shortness of breath. Patient mentions she feels like she is in DKA. Denies medication noncompliance. According to the patient she noticed fevers as well, on arrival to the hospital she did not spike any fevers, denies chest pain. Assessment and plan DKA - resolved Hyperglycemia, anion gap metabolic acidosis - improved Nausea vomiting likely secondary to viral gastroenteritis, DKA - improved DC IV insulin, bridge with home dose of long acting insulin, ISS, ok to start diet DC IV fluids Every hour glucose checks Closely monitor BMP Hyponatremia - improved Leukocytosis, subjective fevers Check blood cultures, check UA chest x-ray negative for acute cardiopulmonary process Check blood cultures - pending Diabetes mellitus CAD Hypertension Hyperlipidemia Resume home inhaler, metoprolol, Xarelto ok to transfer to [facility], PT/OT consult
[2024-03-20] MEDS: INSULIN GLARGINE 100 UNITS/ML 3ML FLEXPEN 90 UNIT SQ ×2 (15:26→21:30)
[2024-03-20 16:18] LABS: POC Glucose,Bedside 160 (70-110)
[2024-03-20 16:31] LABS: POC Glucose,Bedside 186 (70-110)
[2024-03-20] MEDS: humaLOG 100 UNITS/ML 3ML VIAL (SSI) SQ ×2 (17:04→21:30)
[2024-03-20] MEDS: 0.9 % SODIUM CHLORIDE 1000ML 1,000 ML 50 ML IV (17:04)
--- NOTE | 2024-03-20 18:35 | PC.NURSE ---
Patient bridged with long-acting and subq insulin. Drip turned off an hour later. VS stable and patient remained on room air. Patient turned q2. Lung sounds clear
[2024-03-20 20:42] LABS: Chloride 114 mmol/L (98-107)
[2024-03-20 20:43] LABS: Potassium 4.7 mmoL/L (3.5-5.1); Sodium 134 mmol/L (136-145)
[2024-03-20 20:45] LABS: Blood Urea Nitrogen 26 mg/dl (7-17); Creatinine Clearance Estimated 60 mL/min (50-200); Estimated Glomerular Filt Rate 58 ml/min (>60); GFR (African American) 70 ML/MIN (>60)
[2024-03-20 20:46] LABS: Anion Gap 9.7 mEq/L (5-15); Calcium 8.7 mg/dl (8.4-10.2); Carbon Dioxide 15 mmol/L (22.0-30.0); Glucose 269 mg/dl (74-100)
[2024-03-20 20:49] LABS: POC Glucose,Bedside 247 (70-110)
[2024-03-20] MEDS: ATORVASTATIN 40MG TABLET 40 MG PO (21:31)
[2024-03-20] MEDS: TRAZODONE 50MG TABLET 100 MG PO (21:31)
[2024-03-20] MEDS: EZETIMIBE 10MG TABLET 10 MG PO (21:31)
[2024-03-21] VITALS (7 sets, daily range): BP systolic 123–175; BP diastolic 59–101; PULSE 80–136; RESP 18–34; TEMP 36.4–36.9; O2SAT 93–99
--- NOTE | 2024-03-21 04:49 | PC.NURSE ---
gave snack - diet pepsi, fruit bar, pretzels
[2024-03-21] MEDS: humaLOG 100 UNITS/ML 3ML VIAL (SSI) SQ ×4 (05:12→20:38)
[2024-03-21 05:25] LABS: POC Glucose,Bedside 171 (70-110)
[2024-03-21 06:46] LABS: Anion Gap 15.8 mEq/L (5-15); Blood Urea Nitrogen 21 mg/dl (7-17); Carbon Dioxide 14 mmol/L (22.0-30.0); Chloride 108 mmol/L (98-107); Creatinine Clearance Estimated 66 mL/min (50-200); Estimated Glomerular Filt Rate 65 ml/min (>60); GFR (African American) 79 ML/MIN (>60); Glucose 203 mg/dl (74-100); Potassium 3.8 mmoL/L (3.5-5.1); Sodium 134 mmol/L (136-145)
[2024-03-21 06:50] LABS: Basophils % 0.1 % (0.1-2.0); Eosinophils # 0.1 K/mm3 (0.0-0.4); Eosinophils % 0.3 % (0.1-12.0); Hematocrit 39.4 % (37.0-47.0); Hemoglobin 12.5 g/dL (12.2-16.2); Lymphocytes # 0.9 K/mm3 (0.7-4.5); Lymphocytes % 4.8 % (10-50); Mean Corpuscular HGB Conc 31.8 g/dL (31.8-35.4); Mean Corpuscular Hemoglobin 26.7 pg (27.0-31.2); Mean Corpuscular Volume 84.2 fl (81-99); Mean Platelet Volume 8.8 fl (7.4-10.4); Monocytes % 5.6 % (1.7-9.3); Neutrophils # 16.6 K/mm3 (1.8-7.8); Neutrophils % 89.2 % (37.0-80.0); Platelet Count 353 K/mm3 (142-424); Red Blood Count 4.68 M/mm3 (4.20-5.40); Red Cell Distribution Width 16.7 % (11.5-17.5); White Blood Count 18.6 K/mm3 (4.8-10.8)
[2024-03-21 06:51] LABS: MANUAL DIFFERENTIAL MANUAL DIFFERENTIAL (MANUAL DIFF)
--- NOTE | 2024-03-21 07:44 | HMH.PTEV ---
Physical Therapy Evaluation Rehab PT IP Evaluation Start: 03/20/24 15:39 Freq: ONCE Status: Active Protocol: Document 03/21/24 07:35 THOMAS (Rec: 03/21/24 07:44 THOMAS [id number]) Subjective/History History History Per H&P: Patient is a 53-year-old female with past medical history of diabetes mellitus CAD hypertension hyperlipidemia who presented to hospital due to not feeling well, nausea vomiting shortness of breath. Patient mentions she feels like she is in DKA. Denies medication noncompliance. According to the patient she noticed fevers as well, on arrival to the hospital she did not spike any fevers, denies chest pain. Subjective Subjective Pt asleep in bed upon arrival. Pt found incontinent of bowel and bladder. Pt with difficulty remaining awake for history taking. PLOF per pt report: Lives alone in single- story home with 1 [address]. Uses cane for IND community ambulation. IND with bathing and dressing. New diagnosis of cancer in past 12 No months? Rehab PT IP Eval Objective Appearance Patient Behavior Appropriate Patient Orientation Person Difficulty following instructions none Speech Pattern Mumbled Ambulation Patient Able to Ambulate No Balance Ability to Arise Unable Sitting Balance Leans or slides in chair Transfers Bed Transfer Ability Maximum x 1 (75% assist) Rehab PT IP prob,goals,plan Problems Date of Evaluation: 03/21/24 PT IP Problems Bed Mobility,Transfers,Gait, Balance,Self care,Safety Rehab Potential Rehab Potential Good Equipment Needs Assistive Devices Rolling / Wheeled Walker, Wheelchair Plan PT Intervention Plan Bed Mobility,Transfers,Gait, Balance,Safety,Therapeutic Exercise Other Intervention Plan 1-2 times PT Plan Frequency Daily Duration LOS Discharge Goals Bed Transfer Ability Moderate x 1 (50% assist) Sit to Stand Chair Transfer Ability Maximum x 1 (75% assist) Discharge Plan PT Discharge Plan Initial physical therapy evaluation performed. Patient presents below baseline at this time in functional mobility, transfers, and strength. Pt required Max A for Supine <> sit and DEP to scoot to HOB. Pt able to perform rolling with Min A to assist with bed sheet change and DEP for toileting hygiene tasks. Pt not safe to return home at this time d/t current level of functional mobility. PT recommending short-term rehabilitation stay upon d/c from [facility]. Pt would benefit from skilled PT while at [facility] to prevent further functional decline and maximize safety with mobility. Eval Complexity Eval Charge Codes 79992 - High Complexity PHYSICIAN CERTIFICATION: I certify the specified therapy services for Bee Colon are required, authorized, and reviewed every 30 days.
[2024-03-21 08:03] LABS: Lymphocytes % 9 % (10-50); Monocytes % 6 % (2-9); Neutrophils % 85 % (42-76); Total Cells Counted 100
[2024-03-21 08:04] LABS: Platelet Estimate Normal; RBC Morphology Normal
[2024-03-21] MEDS: RIVAROXABAN 2.5MG TABLET 2.5 MG PO ×2 (08:20→17:17)
[2024-03-21] MEDS: DAPAGLIFLOZIN PROPANEDIOL 10 MG TABLET PO (08:21)
[2024-03-21] MEDS: ISOSORBIDE MONO 60MG TAB.ER.24H 60 MG PO (08:21)
[2024-03-21] MEDS: ASPIRIN 81MG CHEWABLE TABLET 81 MG PO (08:21)
[2024-03-21] MEDS: PREGABALIN 100MG CAPSULE 200 MG PO ×2 (08:21→20:14)
[2024-03-21] MEDS: METOPROLOL TARTRATE 50MG TABLET 100 MG PO ×2 (08:21→20:14)
[2024-03-21] MEDS: LACTATED RINGERS 1000ML 1,000 ML 999 ML IV (08:52)
--- NOTE | 2024-03-21 09:58 | P.CONPHA_ITS ---
Pharmacy Consult Date: 03/21/24 Time: 09:59 Referring provider: DR AHUMADA Reason for Consult:: VANCOMYCIN DOSING CONSULT Allergies Allergy/AdvReac Type Severity Reaction Status Date / Time clopidogrel [From Plavix] Allergy Severe Hives Verified 03/20/24 07:31 amoxicillin [AMOXICILLIN] Allergy Unknown Unknown Verified 09/22/23 13:12 allergy reaction codeine [CODEINE] AdvReac Mild STOMACH Verified 09/22/23 13:12 CRAMPS morphine [MORPHINE] AdvReac Mild STOMACH Verified 09/22/23 13:12 CRAMPS oxycodone [From Percocet] AdvReac Mild STOMACH Verified 09/22/23 13:12 CRAMPS Home Medications Medication Instructions Recorded Confirmed Type aspirin 81 mg chewable tablet 81 mg PO DAILY [facility] 04/08/19 03/19/24 History ezetimibe 10 mg tablet 10 mg PO HS 03/06/20 03/19/24 History duloxetine 60 mg capsule,delayed 60 mg PO BID 07/02/20 03/19/24 History release dapagliflozin propanediol 10 mg 10 mg PO DAILY 11/01/20 03/19/24 History tablet insulin glargine 100 unit/mL (3 90 unit SQ HS 11/01/20 03/19/24 History mL) subcutaneous pen pregabalin 200 mg capsule 200 mg PO BID 12/14/20 03/19/24 History ramipril 5 mg capsule 5 mg PO DAILY 01/07/21 03/19/24 History spironolactone 25 mg tablet 25 mg PO DAILY 02/05/21 03/19/24 History rosuvastatin 20 mg tablet 20 mg PO DAILY 02/14/21 03/19/24 History trazodone 100 mg tablet 100 mg PO HS 02/14/21 03/19/24 History hydrocodone 10 mg-acetaminophen 1 tab PO Q6HP PRN Moderate Pain 07/12/23 03/19/24 History 325 mg tablet (Scale Score 5-6) rivaroxaban 2.5 mg tablet (Xarelto) 2.5 mg PO BIDWMEAL 07/12/23 03/19/24 History insulin aspart U-100 100 unit/mL 0 sliding scale dose SQ AC 03/19/24 03/19/24 History (3 mL) subcutaneous pen (Novolog FlexPen U-100 Insulin aspart) isosorbide mononitrate 60 mg 60 mg PO DAILY 03/19/24 03/19/24 History tablet,extended release 24 hr metoprolol tartrate 100 mg tablet 100 mg PO BID 03/19/24 03/19/24 History New Prescriptions to Start Prescriptions: Height: 1.68 m Weight: 123.067 kg Laboratory Results:: Laboratory Results - last 24 hr 03/20/24 10:06: POC Glucose 171 H 03/20/24 10:07: Sodium 135 L, Potassium 4.7, Chloride 114 H, Carbon Dioxide 13 L , Anion Gap 12.7, BUN 26 H, Creatinine 0.90, Estimated Creat Clear 66, Estimated GFR 65, Est GFR ( Amer) 79 D, Glucose 192 H, Calcium 9.2, Phosphorus 2.2 L, Magnesium 1.9, Total Bilirubin 0.8, AST 27 D, ALT 14, Alkaline Phosphatase 107, Total Protein 7.2, Albumin 2.9 L D, Globulin 4.3 H, Albumin/Globulin Ratio 0.7 L 03/20/24 11:07: POC Glucose 166 H 03/20/24 13:01: POC Glucose 152 H 03/20/24 13:50: Sodium 136, Potassium 3.9, Chloride 112 H, Carbon Dioxide 15 L, Anion Gap 12.9, BUN 24 H, Creatinine 1.00, Estimated Creat Clear 60, Estimated GFR 58 L, Est GFR ( Amer) 70, Glucose 177 H, Calcium 9.0, Phosphorus 2.3 L, Magnesium 1.9, Total Bilirubin 0.4, AST 21, ALT 14, Alkaline Phosphatase 114, Total Protein 6.7, Albumin 2.8 L, Globulin 3.9 H, Albumin/Globulin Ratio 0.7 L 03/20/24 13:51: POC Glucose 173 H 03/20/24 15:25: POC Glucose 160 H 03/20/24 16:17: POC Glucose 186 H 03/20/24 20:08: POC Glucose 247 H 03/20/24 20:30: Sodium 134 L, Potassium 4.7 D, Chloride 114 H, Carbon Dioxide 15 L, Anion Gap 9.7, BUN 26 H, Creatinine 1.00, Estimated Creat Clear 60, Estimated GFR 58 L, Est GFR ( Amer) 70, Glucose 269 H D, Calcium 8.7 03/21/24 05:06: POC Glucose 171 H 03/21/24 05:50: WBC 18.6 H, RBC 4.68, Hgb 12.5, Hct 39.4, MCV 84.2, MCH 26.7 L, MCHC 31.8, RDW 16.7, Plt Count 353, MPV 8.8, Neut % (Auto) 89.2 H, Lymph % (Auto) 4.8 L, [place] % (Auto) 5.6, Eos % (Auto) 0.3, Baso % (Auto) 0.1, Neut # (Auto) 16.6 H, Lymph # (Auto) 0.9, [place] # (Auto) 1.0, Eos # (Auto) 0.1, Baso # (Auto) 0.0, Total Counted 100, Neutrophils % (Manual) 85 H, Lymphocytes % (Manual) 9 L, Monocytes % (Manual) 6, Platelet Estimate Normal, RBC Morphology Normal, Sodium 134 L, Potassium 3.8, Chloride 108 H, Carbon Dioxide 14 L, Anion Gap 15.8 H, BUN 21 H, Creatinine 0.90, Estimated Creat Clear 66, Estimated GFR 65, Est GFR ( Amer) 79, Glucose 203 H D, Calcium 9.0 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: 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 (Updated 03/19/24 @ 13:11 by Yg Deleon DO) Recurrent major depression resistant to treatment Anemia HTN (hypertension) Type 2 diabetes mellitus with diabetic neuropathy, with long-term current use of insulin Hyperlipemia CAD (coronary artery disease) Essential hypertension Vitamin D deficiency Assessment and Plan Assessment and plan all Dx Assessment and Plan for all problems:: Pharmacokinetic dosing service Objective: Age: 53 yo Serum creatinine: 0.9 mg/dL Height: 66.1 Inches Weight (kg): 123.067 Diagnosis: SEPSIS Assessment: IBW (kg): 59.53 Dosing wt(kg): 123.067 Estimated Creatinine clearance (ml/min): 94.7 CRCL method: Cockcroft and Gault using adjusted body weight Drug selected: Vancomycin Vd (liters): 86.1 (factor used: 0.7 L/kg) [place] (hr-1): 0.083 Half life (hrs): 8.35 CLvanco=?? 7.146 L/hr Recommended dose: 2000 mg Interval: 12 hrs Infusion time (hrs): 2.0 Predicted peak (mcg/mL): 33.9 Predicted trough (mcg/mL): 14.78 Total body weight is being used for vancomycin dosing. Recommendations: Give Vancomycin 2000 mg q 12 hrs with an expected Cpeak of 33.9 mcg/ml and an expected Ctrough of 14.78 mcg/ml AUC 0-24 /TIARRA Data: TIARRA 0.5 mcg/mL:?? AUC/TIARRA:? 1119.5 TIARRA 1.0 mcg/mL:?? AUC/TIARRA:? 559.8 --------- TIARRA 1.5 mcg/mL:?? AUC/TIARRA:? 373.2 TIARRA 2.0 mcg/mL:?? AUC/TIARRA:? 279.9 Thank you for the consult
--- NOTE | 2024-03-21 10:19 | XR_ITS ---
FINAL REPORT CLINICAL HISTORY: Inpatient sepsis: left foot stump infection FINDINGS: LEFT FOOT Three views of the left foot demonstrate no acute fracture or dislocation. There are postoperative changes of amputation at the level of the midfoot. There are also postoperative changes of the rear foot. Multiple screws are present. There is a plantar calcaneal spur. Mild degenerative changes are seen. The visualized joint spaces are normally aligned. Soft tissue swelling is noted of the stump. IMPRESSION: No acute bony abnormality. Reviewed, Interpreted and Dictated by Jeet Lama III, MD Transcribed by Radha Kunz Authenticated and [facility]
--- NOTE | 2024-03-21 10:19 | XR_ITS ---
FINAL REPORT CLINICAL HISTORY: Inpatient sepsis FINDINGS: RIGHT FOOT 3 views of the right foot were obtained. There are postoperative changes of amputation of the fifth digit. Moderate and severe degenerative changes are seen. There are postoperative changes with multiple screws. A screw is seen in the lateral aspect of the foot which is broken distally. A staple is present in the lateral midfoot. No acute fracture is seen. Soft tissues are unremarkable. IMPRESSION: Postoperative changes as above. No acute bony abnormality. Reviewed, Interpreted and Dictated by Jeet Lama III, MD Transcribed by Radha Kunz Authenticated and [facility]
--- NOTE | 2024-03-21 10:20 | US_ITS ---
FINAL REPORT CLINICAL HISTORY: DM, Hx DFU, OM, Left foot wound COMPARISON: None FINDINGS: ANKLE-BRACHIAL PRESSURE INDICES Pressure indices are as follows: RIGHT LOWER EXTREMITY: Ankle-brachial pressure index: 0.75 Comments: Mild peripheral arterial disease LEFT LOWER EXTREMITY: Ankle-brachial pressure index: 0.72 Comments: Mild peripheral arterial disease. CONCLUSION: Findings consistent with mild bilateral peripheral arterial disease. Reviewed, Interpreted and Dictated by Jeet Lama III, MD Transcribed by Sunitha Rebolledo Authenticated and [facility]
--- NOTE | 2024-03-21 10:24 | HMH.PTWOUND ---
Rehab Inpt Wound Evaluation Rehab IP Wound Evaluation Start: 03/20/24 15:39 Freq: ONCE Status: Active Protocol: Document 03/21/24 10:16 HERBERT (Rec: 03/21/24 10:24 PHOARLINE [id number]) Rehab PT Wound Assessment Subjective Subjective Per H&P: Patient is a 53-year-old female with past medical history of diabetes mellitus CAD hypertension hyperlipidemia who presented to hospital due to not feeling well, nausea vomiting shortness of breath. Patient mentions she feels like she is in DKA. Denies medication noncompliance. According to the patient she noticed fevers as well, on arrival to the hospital she did not spike any fevers, denies chest pain. Pt presents with L residual foot wound on admission with increased redness, foul odor, and thick purulent drainage. Wound Left Foot Wound Type Diabetic Foot Ulcer Is This a Chronic Wound Yes Wound Length (cm) 5.0 Wound Width (cm) 5.0 Wound Depth (cm) 2.5 Wound Bed Appearance Yellow,[place] Percentage of Slough (%) 100 Wound Margins Description Indistinct Tunneling Position 7 o'clock Tunneling Depth (cm) 4.0 Surrounding Tissue Appearance Bright Red,Purple Surrounding Tissue Temperature Warm Wound Drainage Description Purulent,Brown,[place] Drainage Amount Moderate Drainage Odor Foul Odor Wound Topical Solution/Irrigant Saline Irrigant Comment betadine soaked gauze Primary Dressing Gauze Pad Wound Debridement Method Sharps,Forceps,Gauze, Mechanical Wound Debridement Amount of Tissue Moderate Removed Wound Debridement Result Necrotic Tissue Remains Dressing Change Patient Tolerance Tolerated Well Plan/Recommendation Comment Continue betadine soaked jenna packing and covering the wound once per day as needed. Pt likely needs extensive debridement of necrotic tissue . Currenty unable to probe to bone, but pt has hx of osteomyelitis in the past and amputation of the L foot preserving the heel only. Eval Complexity Eval Charge Codes 56758 - High Complexity [place] Wound Assessment Tool Assessment Wound size 3= Length x Width 16.1--<36 sq cm Wound depth 5=Full thickness skin loss with extensive destruction, tissue necrosis Wound edges 1=Indistinct, diffuse, none clearly visible Wound undermining 5=Undermining >4 cm or tunneling in any area Necrotic tissue type 3=Loosely adherent yellow slough Necrotic tissue amount 5=75% to 100% of wound covered Exudate type 5=Purulent: thin or thick, opaque, mancia/yellow, withour without odor Exudate amount 4=Moderate Skin color surrounding wound 4=Dark red or purple &/or non- blanchable Peripheral tissue edema 3=Non-pitting edema extends > or= to 4 cm around wound Peripheral tissue induration 1=None present Granulation tissue 5=No granulation tissue present Epithelialization 5= < 25% wound covered Wound assessment total score 49 PHYSICIAN CERTIFICATION: I certify the specified therapy services for Bee Colon are required, authorized, and reviewed every 30 days.
[2024-03-21] MEDS: CEFEPIME HCL 2 GM in 0.9 % SODIUM CHLORIDE 100 ML IV ×2 (10:30→17:17)
[2024-03-21] MEDS: SPIRONOLACTONE 25MG TABLET 25 MG PO (10:33)
[2024-03-21 10:54] LABS: C-Reactive Protein 90.1 mg/L (0-4)
[2024-03-21 11:01] LABS: Hemoglobin A1C 9.8 % (4.0-6.0)
[2024-03-21 11:23] LABS: POC Glucose,Bedside 318 (70-110)
[2024-03-21 11:26] LABS: Erythrocyte Sedimentation Rate 105 mm/hr (0-30)
[2024-03-21] MEDS: VANCOMYCIN HCL 2,000 MG in 0.9 % SODIUM CHLORIDE 250 ML 125 MG IV ×2 (11:35→22:18)
--- NOTE | 2024-03-21 11:46 | P.PN_ITS ---
Subjective *Date: 03/21/24 *Time: 11:46 Interval history: seen at bedside, she denied CP, SOB, fevers. Wound care and RN at bedside, left foot stumps seems infected with pus inside Exam Data for Last 24 hours Vital signs and Labs for Last 24 Hours: Temp Pulse Resp BP Pulse Ox O2 Del Method O2 Flow Rate 98.2 F 136 H 20 153/88 H 98 Room Air 1 03/21/24 08:00 03/21/24 08:00 03/21/24 08:00 03/21/24 08:00 03/21/24 08:00 03/21/24 11:00 03/19/24 17:00 Laboratory Results - last 24 hr 03/20/24 13:01: POC Glucose 152 H 03/20/24 13:50: Sodium 136, Potassium 3.9, Chloride 112 H, Carbon Dioxide 15 L, Anion Gap 12.9, BUN 24 H, Creatinine 1.00, Estimated Creat Clear 60, Estimated GFR 58 L, Est GFR ( Amer) 70, Glucose 177 H, Calcium 9.0, Phosphorus 2.3 L, Magnesium 1.9, Total Bilirubin 0.4, AST 21, ALT 14, Alkaline Phosphatase 114, Total Protein 6.7, Albumin 2.8 L, Globulin 3.9 H, Albumin/Globulin Ratio 0.7 L 03/20/24 13:51: POC Glucose 173 H 03/20/24 15:25: POC Glucose 160 H 03/20/24 16:17: POC Glucose 186 H 03/20/24 20:08: POC Glucose 247 H 03/20/24 20:30: Sodium 134 L, Potassium 4.7 D, Chloride 114 H, Carbon Dioxide 15 L, Anion Gap 9.7, BUN 26 H, Creatinine 1.00, Estimated Creat Clear 60, Estimated GFR 58 L, Est GFR ( Amer) 70, Glucose 269 H D, Calcium 8.7 03/21/24 05:06: POC Glucose 171 H 03/21/24 05:50: WBC 18.6 H, RBC 4.68, Hgb 12.5, Hct 39.4, MCV 84.2, MCH 26.7 L, MCHC 31.8, RDW 16.7, Plt Count 353, MPV 8.8, Neut % (Auto) 89.2 H, Lymph % (Auto) 4.8 L, [place] % (Auto) 5.6, Eos % (Auto) 0.3, Baso % (Auto) 0.1, Neut # (Auto) 16.6 H, Lymph # (Auto) 0.9, [place] # (Auto) 1.0, Eos # (Auto) 0.1, Baso # (Auto) 0.0, Total Counted 100, Neutrophils % (Manual) 85 H, Lymphocytes % (Manual) 9 L, Monocytes % (Manual) 6, Platelet Estimate Normal, RBC Morphology Normal, Sodium 134 L, Potassium 3.8, Chloride 108 H, Carbon Dioxide 14 L, Anion Gap 15.8 H, BUN 21 H, Creatinine 0.90, Estimated Creat Clear 66, Estimated GFR 65, Est GFR ( Amer) 79, Glucose 203 H D, Hemoglobin A1c 9.8 H, Calcium 9.0, C-Reactive Protein 90.1 H 03/21/24 10:50: ESR 105 H 03/21/24 11:16: POC Glucose 318 H* I & O for Last 24 hours: Intake & Output 03/18/24 03/19/24 03/20/24 03/21/24 23:59 23:59 23:59 23:59 Intake Total 417.891 / 620.076 9265.302 / 3161.302 1364 / 1364 Output Total 1700 / 1700 450 / 450 Balance 417.891 / 236.966 6587.302 / 1461.302 914 / 914 Weight 123.065 kg 123.067 kg 123.067 kg Constitutional Constitutional: no acute distress *Routine HEENT Exam Head: Present normocephalic Eye: Present EOMI and PERRL ENT: Present mucous membranes moist *Routine Neck Exam Neck: Present supple; Absent lymphadenopathy *Routine Respiratory Exam Respiratory: Present CTA bilaterally *Routine Cardiovascular Exam Cardiovascular: Present RRR *Routine Abdominal Exam Abdominal: Present soft and normoactive bowel sounds; Absent tenderness *Routine Extremities Exam Extremities: Absent cyanosis, clubbing or edema Comments: left foot stumps appears infected with pus *Routine Skin Exam Skin: Present warm; Absent rash *Routine Neurological Exam Neurological: Present alert and oriented X3 Assessment and Plan *Assessment and plan (1) DKA (diabetic ketoacidosis): Status: Acute Category: Medical Code(s): E11.10 - Type 2 diabetes mellitus with ketoacidosis without coma (2) Diabetes: Status: Acute Category: Medical Code(s): E11.9 - Type 2 diabetes mellitus without complications (3) CAD (coronary artery disease): Status: Chronic Qualifiers: Coronary Disease-Associated Artery/Lesion type: [place] artery [place] vs. transplanted heart: [place] heart Associated angina: without angina Qualified Code(s): I25.10 - Atherosclerotic heart disease of [place] coronary artery without angina pectoris Category: Medical Code(s): I25.10 - Atherosclerotic heart disease of [place] coronary artery without angina pectoris (4) Hyperlipemia: Status: Chronic Qualifiers: Hyperlipidemia type: other hyperlipidemia Qualified Code(s): E78.49 - Other hyperlipidemia Category: Medical Code(s): E78.5 - Hyperlipidemia, unspecified (5) Essential hypertension: Status: Chronic Category: Medical Code(s): I10 - Essential (primary) hypertension Plan Patient is a 53-year-old female with past medical history of diabetes mellitus CAD hypertension hyperlipidemia who presented to hospital due to not feeling well, nausea vomiting shortness of breath. Patient mentions she feels like she is in DKA. Denies medication noncompliance. According to the patient she noticed fevers as well, on arrival to the hospital she did not spike any fevers, denies chest pain. Assessment and plan DKA - resolved Hyperglycemia, anion gap metabolic acidosis - improved Nausea vomiting likely secondary to viral gastroenteritis, DKA - improved DC IV insulin, bridge with home dose of long acting insulin, ISS, ok to start diet DC IV fluids Every hour glucose checks Closely monitor BMP Anion gap opened up again - order 1 L Lactated ringers bolus, recheck BMP Hyponatremia - improved Leukocytosis, subjective fevers infected left foot wounds - patient does not want to seen podaitrist at [facility], will consult ortho wound care and PT/OT consulted started on vancomycin, cefepime an flagyl consult ortho, check ESR, CRP, Xray left lower leg stump for OM changes if need to be transferred, will initiate transfer Check blood cultures, check UA chest x-ray negative for acute cardiopulmonary process Check blood cultures - pending Diabetes mellitus CAD Hypertension Hyperlipidemia Resume home inhaler, metoprolol, Xarelto consult ortho, check ESR, CRP, Xray left lower leg stump for OM changes
--- NOTE | 2024-03-21 11:47 | HMH.OTEV ---
OT Inpatient Evaluation Rehab OT IP Evaluation Start: 03/20/24 15:39 Freq: ONCE Status: Active Protocol: Document 03/21/24 11:42 [facility] (Rec: 03/21/24 11:47 [facility] [id number]) Rehab OT IP Assessment Subjective History Per H&P: Patient is a 53-year-old female with past medical history of diabetes mellitus CAD hypertension hyperlipidemia who presented to hospital due to not feeling well, nausea vomiting shortness of breath. Patient mentions she feels like she is in DKA. Denies medication noncompliance. According to the patient she noticed fevers as well, on arrival to the hospital she did not spike any fevers, denies chest pain. Subjective Pt in bed on arrival. PLOF per pt report: Nahed lives with patient in single-story home with 1 [address]. Uses cane for IND community ambulation. Pt claims she is normally independent with all ADLs and IADLs. Objective Patient Orientation Person,Place,Birthday Right Upper Extremity Gross ROM WFL Left Upper Extremity Gross ROM WFL Bed Mobility bed mobility-scooting,bed mobility - supine/sit Assist Level Moderate x 1 (50% assist) Rehab OT IP prob,goals,plan Problems Date of Evaluation: 03/21/24 OT IP Problems Bed Mobility,Transfers,Balance ,Self care,Safety Rehab Potential Rehab Potential Good Equipment Needs Assistive Devices Rolling / Wheeled Walker, Wheelchair Plan OT intervention Plan Bed Mobility,Transfers,Balance ,Self care,Safety,Therapeutic Exercise OT Plan Frequency Daily Duration LOS Discharge Goals Bed Mobility Ability Assistance x1 Sit to Stand Chair Transfer Ability Maximum x 1 (75% assist) Chair Transfer Ability Maximum x 1 (75% assist) Chair Transfer Technique Stand Pivot Chair Transfer Assistive Devices Rolling Walker Feeding Ability Assist with Tray Set Up Lower Body Dressing Ability Maximum Assistance Upper Body Dressing Ability Minimal Assistance Bathing Ability Maximum Assistance Performing Toilet Hygiene Ability Maximum Assistance Overall Commode/Toilet Transfer Ability Maximum Assistance Commode/Toilet Transfer Technique Stand Step Pivot Commode/Toilet Transfer Assistive Grab Bars Devices Oral Care Assist Minimal Assistance Decrease in Endurance Yes Discharge Plan OT Discharge Plan Pt will continue to be seen for OT services while at [facility]. Patient presents below baseline at this time in functional transfers and ADL independence. Pt not safe to return home at this time d/t current level of functioning. OT recommending short-term rehabilitation stay upon d/c from [facility]. Eval Complexity Eval Charge Codes 32539 - Moderate Complexity PHYSICIAN CERTIFICATION: I certify the specified therapy services for Bee Colon are required, authorized, and reviewed every 30 days.
[2024-03-21] MEDS: METRONIDAZ/SOD CHL 500 MG/100 ML PIGGYBACK 100 MG IV ×2 (13:46→20:14)
--- NOTE | 2024-03-21 14:34 | P.CONS_ITS ---
History of Present Illness *Admission Date: 03/19/24 *History of present illness: 53-year-old female with a very long complicated history of left lower extremity surgeries related to diabetes. I reviewed her entire surgical history in her left lower extremity which is extensive. 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 She presented to the hospital with symptoms of DKA. Subsequently evaluation of the left lower extremity revealed infection of the partial amputation stump in the left lower extremity. She has a long history of procedures with podiatry here but also recently in [place]. She has seen Dr. Greco who is a vascular surgeon who initially suggested she should have a below- knee amputation. However they proceeded with local wound treatment and initially was able to avoid any amputation discussion. However over the last month and specifically last 2 weeks it has been worse on the left lower extremity. She does not have sensation in this area but has noticed that she is decompensated in regards to redness and infection. I was consulted regarding treatment options for the left lower extremity. [facility] Disclaimer: The information contained in this section may have been updated after the patient was seen, as this information can be updated by other users. 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 (Updated 03/19/24 @ 13:11 by Yg Deleon DO) Recurrent major depression resistant to treatment Anemia HTN (hypertension) Type 2 diabetes mellitus with diabetic neuropathy, with long-term current use of insulin Hyperlipemia CAD (coronary artery disease) Essential hypertension Vitamin D deficiency Surgical History (Updated 09/12/23 @ 00:01 by Jacob Eng) History of appendectomy History of cholecystectomy History of hysterectomy History of hand surgery History of foot surgery Social History (Updated 03/19/24 @ 15:00 by Keisha Rueda RN) Smoking Status: Former smoker smoking status stop date: 07/17/2023 second hand exposure: No alcohol intake: never counseling given: No substance use type: denies use counseling given: No current occupational status: disabled Travel in the last 8 weeks: None adopted: No caregiver/support person: No foster care: No household members: children housing: house lives independently: Yes marital status: number of children: 1 number of grandchildren: 0 education level: high school 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; 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 current occupational exposures/hazards: Yes pets and animals: Yes pets and animals: cat(s) Hx Recent Travel: No sexually active: No caffeine: Yes physical activity: none dyana/yarsani: Yazidi special dyana needs: No working smoke detector in home: Yes fire extinguisher in home: Yes carbon monox detector in home: Yes firearms in home: No do you feel safe at home: Yes victim of physical abuse: No victim of emotional abuse: No victim of sexual abuse: No would you like helpful sources: No Meds Home Medications and Allergies Home Medications Medication Instructions Recorded Confirmed Type aspirin 81 mg chewable tablet 81 mg PO DAILY HEART HEALTH 04/08/19 03/19/24 History ezetimibe 10 mg tablet 10 mg PO HS 03/06/20 03/19/24 History duloxetine 60 mg capsule,delayed 60 mg PO BID 07/02/20 03/19/24 History release dapagliflozin propanediol 10 mg 10 mg PO DAILY 11/01/20 03/19/24 History tablet insulin glargine 100 unit/mL (3 90 unit SQ HS 11/01/20 03/19/24 History mL) subcutaneous pen pregabalin 200 mg capsule 200 mg PO BID 12/14/20 03/19/24 History ramipril 5 mg capsule 5 mg PO DAILY 01/07/21 03/19/24 History spironolactone 25 mg tablet 25 mg PO DAILY 02/05/21 03/19/24 History rosuvastatin 20 mg tablet 20 mg PO DAILY 02/14/21 03/19/24 History trazodone 100 mg tablet 100 mg PO HS 02/14/21 03/19/24 History hydrocodone 10 mg-acetaminophen 1 tab PO Q6HP PRN Moderate Pain 07/12/23 03/19/24 History 325 mg tablet (Scale Score 5-6) rivaroxaban 2.5 mg tablet (Xarelto) 2.5 mg PO BIDWMEAL 07/12/23 03/19/24 History insulin aspart U-100 100 unit/mL 0 sliding scale dose SQ AC 03/19/24 03/19/24 History (3 mL) subcutaneous pen (Novolog FlexPen U-100 Insulin aspart) isosorbide mononitrate 60 mg 60 mg PO DAILY 03/19/24 03/19/24 History tablet,extended release 24 hr metoprolol tartrate 100 mg tablet 100 mg PO BID 03/19/24 03/19/24 History New Prescriptions to Start Prescriptions: Allergies Allergy/AdvReac Type Severity Reaction Status Date / Time clopidogrel [From Plavix] Allergy Severe Hives Verified 03/20/24 07:31 amoxicillin [AMOXICILLIN] Allergy Unknown Unknown Verified 09/22/23 13:12 allergy reaction codeine [CODEINE] AdvReac Mild STOMACH Verified 09/22/23 13:12 CRAMPS morphine [MORPHINE] AdvReac Mild STOMACH Verified 09/22/23 13:12 CRAMPS oxycodone [From Percocet] AdvReac Mild STOMACH Verified 09/22/23 13:12 CRAMPS Ortho Exam (Inpt) Vital signs and Labs for Last 24 Hours: Temp Pulse Resp BP Pulse Ox O2 Del Method O2 Flow Rate 98.1 F 104 H 21 129/69 99 Room Air 1 03/21/24 11:57 03/21/24 12:00 03/21/24 11:57 03/21/24 11:57 03/21/24 11:57 03/21/24 13:00 03/19/24 17:00 Laboratory Results - last 24 hr 03/20/24 13:50: Sodium 136, Potassium 3.9, Chloride 112 H, Carbon Dioxide 15 L, Anion Gap 12.9, BUN 24 H, Creatinine 1.00, Estimated Creat Clear 60, Estimated GFR 58 L, Est GFR ( Amer) 70, Glucose 177 H, Calcium 9.0, Phosphorus 2.3 L, Magnesium 1.9, Total Bilirubin 0.4, AST 21, ALT 14, Alkaline Phosphatase 114, Total Protein 6.7, Albumin 2.8 L, Globulin 3.9 H, Albumin/Globulin Ratio 0.7 L 03/20/24 15:25: POC Glucose 160 H 03/20/24 16:17: POC Glucose 186 H 03/20/24 20:08: POC Glucose 247 H 03/20/24 20:30: Sodium 134 L, Potassium 4.7 D, Chloride 114 H, Carbon Dioxide 15 L, Anion Gap 9.7, BUN 26 H, Creatinine 1.00, Estimated Creat Clear 60, E stimated GFR 58 L, Est GFR ( Amer) 70, Glucose 269 H D, Calcium 8.7 03/21/24 05:06: POC Glucose 171 H 03/21/24 05:50: WBC 18.6 H, RBC 4.68, Hgb 12.5, Hct 39.4, MCV 84.2, MCH 26.7 L, MCHC 31.8, RDW 16.7, Plt Count 353, MPV 8.8, Neut % (Auto) 89.2 H, Lymph % (Auto) 4.8 L, [place] % (Auto) 5.6, Eos % (Auto) 0.3, Baso % (Auto) 0.1, Neut # (Auto) 16.6 H, Lymph # (Auto) 0.9, [place] # (Auto) 1.0, Eos # (Auto) 0.1, Baso # (Auto) 0.0, Total Counted 100, Neutrophils % (Manual) 85 H, Lymphocytes % (Manual) 9 L, Monocytes % (Manual) 6, Platelet Estimate Normal, RBC Morphology Normal, Sodium 134 L, Potassium 3.8, Chloride 108 H, Carbon Dioxide 14 L, Anion Gap 15.8 H, BUN 21 H, Creatinine 0.90, Estimated Creat Clear 66, Estimated GFR 65, Est GFR ( Amer) 79, Glucose 203 H D, Hemoglobin A1c 9.8 H, Calcium 9.0, C-Reactive Protein 90.1 H 03/21/24 10:50: ESR 105 H 03/21/24 11:16: POC Glucose 318 H* I & O for Labs for Last 24 Hours: Intake & Output 03/18/24 03/19/24 03/20/24 03/21/24 23:59 23:59 23:59 23:59 Intake Total 417.891 / 283.363 3751.302 / 3161.302 1904 / 1904 Output Total 1700 / 1700 450 / 450 Balance 417.891 / 400.971 2991.302 / 4223.740 3297 / 1454 Weight 271 lb 5 oz 271 lb 5.06 oz 271 lb 5.06 oz Microbiology Reports for the Last 24 Hours: Microbiology 03/21/24 10:00 Leg,Left Gram Stain - Final Findings:: Left lower extremity: Dressing removed. There is circumferential redness swelling around the partial foot amputation. On the base and plantar aspect of the wound there is purulent drainage. The redness is demarcated clearly about 2 inches proximal to the wound. No tenderness in the calf no redness streaking in the calf. . X-rays left lower extremity show hardware in place with previous forefoot amputation. There is no gross evidence of bony changes radiographically to indicate osteomyelitis. I reviewed the newest CT scan from June 2023. At that time there was no CT evidence of osteomyelitis. Results Labs 03/21/24 05:50 03/21/24 05:50 Labs: Abnormal lab results 03/20/24 03/20/24 03/20/24 Range/Units 13:50 15:25 16:17 WBC (4.8-10.8) K/mm3 MCH (27.0-31.2) pg Neut % (Auto) (37.0-80.0) % Lymph % (Auto) (10-50) % Neut # (Auto) (1.8-7.8) K/mm3 Neutrophils % (Manual) (42-76) % Lymphocytes % (Manual) (10-50) % ESR (0-30) mm/hr Sodium (136-145) mmol/L Chloride 112 H (98-107) mmol/L Carbon Dioxide 15 L (22.0-30.0) mmol/L Anion Gap (5-15) mEq/L BUN 24 H (7-17) mg/dl Estimated GFR 58 L (>60) ml/min Glucose 177 H (74-100) mg/dl POC Glucose 160 H 186 H (70-110) Hemoglobin A1c (4.0-6.0) % Phosphorus 2.3 L (2.5-4.5) mg/dl C-Reactive Protein (0-4) mg/L Albumin 2.8 L (3.5-5.0) g/dl Globulin 3.9 H (1.3-3.2) g/dL Albumin/Globulin Ratio 0.7 L (1.1-1.8) 03/20/24 03/20/24 03/21/24 Range/Units 20:08 20:30 05:06 WBC (4.8-10.8) K/mm3 MCH (27.0-31.2) pg Neut % (Auto) (37.0-80.0) % Lymph % (Auto) (10-50) % Neut # (Auto) (1.8-7.8) K/mm3 Neutrophils % (Manual) (42-76) % Lymphocytes % (Manual) (10-50) % ESR (0-30) mm/hr Sodium 134 L (136-145) mmol/L Chloride 114 H (98-107) mmol/L Carbon Dioxide 15 L (22.0-30.0) mmol/L Anion Gap (5-15) mEq/L BUN 26 H (7-17) mg/dl Estimated GFR 58 L (>60) ml/min Glucose 269 H D (74-100) mg/dl POC Glucose 247 H 171 H (70-110) Hemoglobin A1c (4.0-6.0) % Phosphorus (2.5-4.5) mg/dl C-Reactive Protein (0-4) mg/L Albumin (3.5-5.0) g/dl Globulin (1.3-3.2) g/dL Albumin/Globulin Ratio (1.1-1.8) 03/21/24 03/21/24 03/21/24 Range/Units 05:50 10:50 11:16 WBC 18.6 H (4.8-10.8) K/mm3 MCH 26.7 L (27.0-31.2) pg Neut % (Auto) 89.2 H (37.0-80.0) % Lymph % (Auto) 4.8 L (10-50) % Neut # (Auto) 16.6 H (1.8-7.8) K/mm3 Neutrophils % (Manual) 85 H (42-76) % Lymphocytes % (Manual) 9 L (10-50) % ESR 105 H (0-30) mm/hr Sodium 134 L (136-145) mmol/L Chloride 108 H (98-107) mmol/L Carbon Dioxide 14 L (22.0-30.0) mmol/L Anion Gap 15.8 H (5-15) mEq/L BUN 21 H (7-17) mg/dl Estimated GFR (>60) ml/min Glucose 203 H D (74-100) mg/dl POC Glucose 318 H* (70-110) Hemoglobin A1c 9.8 H (4.0-6.0) % Phosphorus (2.5-4.5) mg/dl C-Reactive Protein 90.1 H (0-4) mg/L Albumin (3.5-5.0) g/dl Globulin (1.3-3.2) g/dL Albumin/Globulin Ratio (1.1-1.8) H & H 03/19/24 03/20/24 03/21/24 Range/Units 10:25 06:15 05:50 Hgb 13.3 12.9 12.5 (12.2-16.2) g/dL Hct 43.1 41.5 39.4 (37.0-47.0) % All other labs normal. Assessment and Plan *Assessment and plan (1) Soft tissue infection: Status: Acute Category: Medical Code(s): L08.9 - Local infection of the skin and subcutaneous tissue, unspecified (2) Foot abscess, left: Status: Acute Category: Medical Code(s): L02.612 - Cutaneous abscess of left foot (3) Cellulitis and abscess of foot: Status: Acute Category: Medical Code(s): L03.119 - Cellulitis of unspecified part of limb; L02.619 - Cutaneous abscess of unspecified foot Plan Had a discussion with the patient today regarding treatment options. She is during this hospitalization being treated for DKA symptoms. She has been just now started on antibiotic treatments. However there is evidence of gross infection of the left lower extremity. How she responds and turned around to antibiotic and local wound care treatment has not yet clear. I discussed with her options in regards to medical treatment with antibiotics local wound treatment and the likelihood of success with this treatment being low. In regards to surgical salvage procedures she has had previous skin flaps and surgical intervention that would likely lead to difficulty with wound coverage with any open debridement this would leave her with an open wound and wound VAC and difficulty in regards to salvage options. We also discussed the possibility of below-knee amputation. In regards to below-knee amputation she says that she is not mentally ready to make that decision and would not like to acutely proceed with below-knee amputation at this time. If however the infection is unable to stabilize her situation then this option would be her only option. If however antibiotic local wound treatment makes her more stable and she is able to turn the corner. She is able to follow-up with her track repairer as an outpatient and her vascular surgeon as outpatient which she has had a longstanding relationship with to see if any other further salvage procedures would be beneficial.
[2024-03-21] MEDS: 0.9 % SODIUM CHLORIDE 1000ML 1,000 ML 50 ML IV (15:50)
[2024-03-21 16:05] LABS: POC Glucose,Bedside 290 (70-110)
[2024-03-21] MEDS: 0.9 % SODIUM CHLORIDE 1000ML 500 ML IV (16:18)
[2024-03-21 16:35] LABS: Chloride 113 mmol/L (98-107); Potassium 3.6 mmoL/L (3.5-5.1); Sodium 134 mmol/L (136-145)
[2024-03-21 16:38] LABS: Anion Gap 8.6 mEq/L (5-15); Blood Urea Nitrogen 20 mg/dl (7-17); Calcium 8.7 mg/dl (8.4-10.2); Carbon Dioxide 16 mmol/L (22.0-30.0); Creatinine Clearance Estimated 60 mL/min (50-200); Estimated Glomerular Filt Rate 58 ml/min (>60); GFR (African American) 70 ML/MIN (>60); Glucose 330 mg/dl (74-100); Lactic Acid 0.9 mmol/L (0.7-2.1)
--- NOTE | 2024-03-21 16:52 | ECG_ITS ---
APPROVED REPORT Exam: Resting ECG HR:125 bpm ECG Measurements Heart Rate 125 AXES ID [id number] P QRSd 96 QRS -22 QT 327 T 30 QTc 401 Conclusion ELECTRONIC ATRIAL PACEMAKER POSSIBLE ANTERIOR MYOCARDIAL INFARCTION , PROBABLY OLD [30 ms Q WAVE IN V3/V4, OR R < 0.2 mV IN V4] ABNORMAL RHYTHM ECG UNCONFIRMED REPORT Electronically signed by : Apolinar Odonnell MD 03/22/2024 21:36:21
--- NOTE | 2024-03-21 17:38 | PC.NURSE ---
PT IS RESTING IN BED. ALERT AND ORIENTED X4. PT WAS ABLE TO TOLERATE SITTING UP ON THE SOB WITH PT/OT THIS SHIFT. EATING AND DRINKING FAIR. PT'S HR HAS BEEN ELEVATED T/O THE SHIFT . LAST BP 152/71. TEMP 98.9. NOTIFIED. ADDITIONAL 500 ML IVF BOLUS GIVEN AND LABS ORDERED. EKG WAS DONE JUST TO VERIFY PT WAS NOT IN AFIB. HR CONTINUED TO BE IN THE 130-140'S AFTER BOLUS WAS COMPLETE. NOTIFIED . IV LOPRESSOR ORDERED. PT WAS UPSET TO HEAR THAT SHE WOULD MORE THAN LIKELY NEED LBKA FROM ORTHO AND STATED THAT SHE WOULD NEED A COUPLE OF DAYS TO MAKE HER DECISION. WOUND ON PARTIAL FOOT AMPUTATION HAS PURULENT DRAINAGE WITH ODOR NOTED. BETADINE DRESSING INTACT. WILL CONTINUE TO MONITOR.
[2024-03-21] MEDS: METOPROLOL TARTRATE 5MG/5ML VIAL 2.5 MG IV (17:58)
[2024-03-21] MEDS: TRAZODONE 50MG TABLET 100 MG PO (20:14)
[2024-03-21] MEDS: EZETIMIBE 10MG TABLET 10 MG PO (20:14)
[2024-03-21] MEDS: ATORVASTATIN 40MG TABLET 40 MG PO (20:14)
[2024-03-21 20:29] LABS: POC Glucose,Bedside 357 (70-110)
[2024-03-21] MEDS: INSULIN GLARGINE 100 UNITS/ML 3ML FLEXPEN 90 UNIT SQ (20:39)
[2024-03-22] VITALS: BP 99/56; PULSE 80; PULSE 82; RESP 20; TEMP 36.6; O2SAT 93
[2024-03-22] MEDS: CEFEPIME HCL 2 GM in 0.9 % SODIUM CHLORIDE 100 ML IV ×3 (01:53→17:00)
[2024-03-22] MEDS: PROMETHAZINE HCL 25MG/ML 1ML VIAL 12.5 MG IV ×3 (02:08→20:01)
[2024-03-22] MEDS: SODIUM CHLORIDE 0.9% 25ML BAG 25 ML IV ×2 (02:09→13:33)
[2024-03-22 04:00] VITALS: BP 133/84; PULSE 127; PULSE 90; RESP 20; TEMP 37.1; O2SAT 98; BMI 44.6
[2024-03-22] MEDS: METRONIDAZ/SOD CHL 500 MG/100 ML PIGGYBACK 100 MG IV ×3 (04:01→21:19)
[2024-03-22] MEDS: humaLOG 100 UNITS/ML 3ML VIAL (SSI) SQ ×4 (05:59→21:26)
[2024-03-22] MEDS: 0.9 % SODIUM CHLORIDE 1000ML 1,000 ML 50 ML IV (06:00)
[2024-03-22 06:02] LABS: POC Glucose,Bedside 225 (70-110)
[2024-03-22 06:42] LABS: Basophils # 0.1 K/mm3 (0-0.2); Basophils % 0.3 % (0.1-2.0); Eosinophils # 0.1 K/mm3 (0.0-0.4); Eosinophils % 0.7 % (0.1-12.0); Hematocrit 37.6 % (37.0-47.0); Hemoglobin 11.8 g/dL (12.2-16.2); Lymphocytes # 1.6 K/mm3 (0.7-4.5); Lymphocytes % 10.4 % (10-50); Mean Corpuscular HGB Conc 31.3 g/dL (31.8-35.4); Mean Corpuscular Hemoglobin 26.9 pg (27.0-31.2); Mean Corpuscular Volume 85.9 fl (81-99); Mean Platelet Volume 8.7 fl (7.4-10.4); Monocytes # 1.4 K/mm3 (0.1-1.0); Monocytes % 9.6 % (1.7-9.3); Neutrophils # 11.8 K/mm3 (1.8-7.8); Neutrophils % 78.9 % (37.0-80.0); Platelet Count 326 K/mm3 (142-424); Red Blood Count 4.38 M/mm3 (4.20-5.40); White Blood Count 14.9 K/mm3 (4.8-10.8)
[2024-03-22 07:01] LABS: Anion Gap 13.4 mEq/L (5-15); Blood Urea Nitrogen 18 mg/dl (7-17); Calcium 8.7 mg/dl (8.4-10.2); Carbon Dioxide 20 mmol/L (22.0-30.0); Chloride 108 mmol/L (98-107); Creatinine Clearance Estimated 54 mL/min (50-200); Estimated Glomerular Filt Rate 52 ml/min (>60); GFR (African American) 62 ML/MIN (>60); Glucose 246 mg/dl (74-100); Potassium 3.4 mmoL/L (3.5-5.1); Sodium 138 mmol/L (136-145)
[2024-03-22 08:00] VITALS: BP 139/77; PULSE 110; PULSE 120; RESP 22; TEMP 36.9; O2SAT 92
[2024-03-22] MEDS: ISOSORBIDE MONO 60MG TAB.ER.24H 60 MG PO (09:05)
[2024-03-22] MEDS: METOPROLOL TARTRATE 50MG TABLET 100 MG PO ×2 (09:05→21:22)
[2024-03-22] MEDS: RIVAROXABAN 2.5MG TABLET 2.5 MG PO ×2 (09:06→16:57)
[2024-03-22] MEDS: ASPIRIN 81MG CHEWABLE TABLET 81 MG PO (09:06)
[2024-03-22] MEDS: DULOXETINE 30MG CAPSULE.DR 60 MG PO (09:06)
[2024-03-22] MEDS: DAPAGLIFLOZIN PROPANEDIOL 10 MG TABLET PO (09:08)
[2024-03-22] MEDS: SPIRONOLACTONE 25MG TABLET 25 MG PO (09:09)
[2024-03-22] MEDS: PREGABALIN 100MG CAPSULE 200 MG PO ×2 (09:13→21:21)
[2024-03-22] MEDS: INSULIN GLARGINE 100 UNITS/ML 3ML FLEXPEN 40 UNIT SQ ×2 (09:16→21:26)
[2024-03-22 09:30] LABS: POC Glucose,Bedside 340 (70-110)
--- NOTE | 2024-03-22 09:42 | PC.NURSE ---
Around 0901, pt was noted to have a HR in the 170s. Vagal maneuvers were initiated. Pt HR decreased to 90s then increased again up to 160s. Pt was asked to bear down again and ice pack was placed on forehead. HR improved. Currently 110-120s. aware.
--- NOTE | 2024-03-22 10:21 | CA_ITS ---
APPROVED REPORT EXAM: Comprehensive 2D, Doppler, and color-flow Echocardiogram Chassis Driver: Silvia Chris RVT Ht: 5 ft 6 in Wt: 278lbs BSA: 2.30 BP: 129/69 mmHg Indications: TACHYCARDIA,SOA,EX SMOKER,DM,CAD,HX CM,HTN,HLD,OBESITY,INFECTED WOUND VERY TDS-PT BODY HABITUS BEST WINDOWS POSSIBLE SCANNED FLAT ON BACK Echo Enhancing Agent Indication: Endocardial border delineation Agent(s) / Amount(s) Used: Definity 2 cc 2D Dimensions IVSd 1.29 cm F: 0.6-1.0 LVEF (Visual) 70.30 % PWd 1.14 cm F: 0.6 - 1.0 LVDd 4.00 cm F: 3.9 - 5.3 LVDs 2.43 cm F: 2.2 - 3.5 M-Mode Dimensions LA Diam 3.86 cm (1.9-4.0) LV Diastology E Decel Time 150 (160-240 msec) E/A Ratio 0.6 Aortic Valve AO Peak GR. 4.80 mmHg Mitral Valve MV E Max Anirudh. 56.0 (40-130 cm/s) MV A Velocity 88.0 (40-130 cm/s) E/A Ratio 0.64 MV PHT 44.0 ms Pulmonary Valve PV Peak Velocity 104.0 (50-150 cm/s) Left Ventricle The left ventricle is normal size. The left ventricular systolic function is normal. The left ventricular ejection fraction is within the normal range. There is increased LV wall thickness. There is normal LV segmental wall motion. The left ventricular diastolic function is normal. No left ventricle thrombus noted on this study. LVEF is 60%. Right Ventricle The right ventricle is normal size. The right ventricular systolic function is normal. Atria The left atrium is not well-visualized. Right atrium is not well-visualized. Aortic Valve The aortic valve is mildly thickened, but opens well. There is no aortic valvular stenosis. Trace aortic regurgitation. Mitral Valve The mitral valve leaflets are mildly thickened. No evidence of mitral valve stenosis. Trace mitral regurgitation. Tricuspid Valve The tricuspid valve leaflets are not well-visualized. Pulmonic Valve The pulmonic valve leaflets are not well-visualized. Great Vessels The aortic root is not well-visualized. The IVC is not well-visualized. Pericardium There is no pericardial effusion. Other Information Study Quality: Technically Difficult. Technically limited study due to inability to position patient. Conclusion Technically difficult study due to poor acoustic windows. Grossly, normal biventricular systolic function. The atria are not well-visualized. The MV and AV overall open well, assessment is limited due to technically difficult study. The TV and PV are not well visualized. Electronically signed by : Johanna Cary MD 03/22/2024 12:31:11
--- NOTE | 2024-03-22 10:37 | P.CONCA_ITS ---
History of Present Illness History of Present Illness Consult date: 03/22/24 Requesting physician: Levi Soria Consult reason: pre-op evaluation Chief complaint: nausea/voiting, dka, infected left stump History of present illness: This is a 53-year-old white female with past medical history of coronary artery disease with stenting in 2014 and 2019, Takotsubo cardiomyopathy in 2020 with a recovered ejection fraction, hypertension, hyperlipidemia, diabetes mellitus and chronic left foot surgery and wounds who is currently hospitalized for DKA and an infected left foot stump. Cardiology was asked to evaluate for a cardiac risk assessment for possible left BKA. Patient follows with Dr. Manzano (cardiology) in [place]. Patient denies chest pain or shortness of breath but reports activity is limited due to chronic left leg pain. Will obtain medical records from Dr. Manzano's office. Echocardiogram is pending [facility] Disclaimer: The information contained in this section may have been updated after the patient was seen, as this information can be updated by other users. 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 (Updated 03/19/24 @ 13:11 by Yg Deleon DO) Recurrent major depression resistant to treatment Anemia HTN (hypertension) Type 2 diabetes mellitus with diabetic neuropathy, with long-term current use of insulin Hyperlipemia CAD (coronary artery disease) Essential hypertension Vitamin D deficiency Surgical History (Updated 09/12/23 @ 00:01 by Jacob Eng) History of appendectomy History of cholecystectomy History of hysterectomy History of hand surgery History of foot surgery Social History (Updated 03/19/24 @ 15:00 by Keisha Rueda RN) Smoking Status: Former smoker smoking status stop date: 07/17/2023 second hand exposure: No alcohol intake: never counseling given: No substance use type: denies use counseling given: No current occupational status: disabled Travel in the last 8 weeks: None adopted: No caregiver/support person: No foster care: No household members: children housing: house lives independently: Yes marital status: number of children: 1 number of grandchildren: 0 education level: high school 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; 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 current occupational exposures/hazards: Yes pets and animals: Yes pets and animals: cat(s) Hx Recent Travel: No sexually active: No caffeine: Yes physical activity: none dyana/buddhism: [employer] special dyana needs: No working smoke detector in home: Yes fire extinguisher in home: Yes carbon monox detector in home: Yes firearms in home: No do you feel safe at home: Yes victim of physical abuse: No victim of emotional abuse: No victim of sexual abuse: No would you like helpful sources: No Review of Systems *Cardiovascular Cardiovascular: Denies chest pain and Denies dyspnea *Respiratory Respiratory: Denies dyspnea Exam Data for Last 24 hours Vital signs and Labs for Last 24 Hours: Temp Pulse Resp BP Pulse Ox O2 Del Method O2 Flow Rate 98.4 F 110 H 22 139/77 92 L Room Air 1 03/22/24 08:00 03/22/24 08:00 03/22/24 08:00 03/22/24 08:00 03/22/24 08:00 03/22/24 08:00 03/19/24 17:00 Laboratory Results - last 24 hr 03/21/24 05:50: Hemoglobin A1c 9.8 H, C-Reactive Protein 90.1 H 03/21/24 10:50: ESR 105 H 03/21/24 11:16: POC Glucose 318 H* 03/21/24 15:54: POC Glucose 290 H 03/21/24 16:19: Sodium 134 L, Potassium 3.6, Chloride 113 H, Carbon Dioxide 16 L , Anion Gap 8.6, BUN 20 H, Creatinine 1.00, Estimated Creat Clear 60, Estimated GFR 58 L, Est GFR ( Amer) 70, Glucose 330 H D, Lactate 0.9, Calcium 8.7 03/21/24 20:22: POC Glucose 357 H* 03/22/24 05:54: POC Glucose 225 H 03/22/24 06:15: WBC 14.9 H, RBC 4.38, Hgb 11.8 L, Hct 37.6, MCV 85.9, MCH 26.9 L , MCHC 31.3 L, RDW 17.0, Plt Count 326, MPV 8.7, Neut % (Auto) 78.9, Lymph % (Auto) 10.4, [place] % (Auto) 9.6 H, Eos % (Auto) 0.7, Baso % (Auto) 0.3, Neut # (Auto) 11.8 H, Lymph # (Auto) 1.6, [place] # (Auto) 1.4 H, Eos # (Auto) 0.1, Baso # (Auto) 0.1, Sodium 138, Potassium 3.4 L, Chloride 108 H, Carbon Dioxide 20 L, Anion Gap 13.4, BUN 18 H, Creatinine 1.10 H, Estimated Creat Clear 54, Estimated GFR 52 L, Est GFR ( Amer) 62, Glucose 246 H D, Calcium 8.7 03/22/24 09:16: POC Glucose 340 H* I & O for Last 24 hours: Intake & Output 03/19/24 03/20/24 03/21/24 03/22/24 23:59 23:59 23:59 23:59 Intake Total 417.891 / 267.479 6202.302 / 3161.302 3351 / 3451 340 / 340 Output Total 1700 / 1700 900 / 900 800 / 800 Balance 417.891 / 004.896 7375.302 / 8137.532 6225 / 2551 -460 / -460 Weight 271 lb 5 oz 271 lb 5.06 oz 271 lb 5.06 oz 278 lb 1.6 oz Microbiology Reports for the Last 24 Hours: Microbiology 03/21/24 10:00 Leg,Left Gram Stain - Final 03/21/24 10:00 Leg,Left Wound Culture - Preliminary Gram Negative Rods *Routine Respiratory Exam Respiratory: Present normal respiratory effort and able to speak in complete sentences *Routine Cardiovascular Exam Cardiovascular: Present Normal S1 and Normal S2 Meds Home Medications and Allergies Home Medications Medication Instructions Recorded Confirmed Type aspirin 81 mg chewable tablet 81 mg PO DAILY HEART HEALTH 04/08/19 03/19/24 History ezetimibe 10 mg tablet 10 mg PO HS 03/06/20 03/19/24 History duloxetine 60 mg capsule,delayed 60 mg PO BID 07/02/20 03/19/24 History release dapagliflozin propanediol 10 mg 10 mg PO DAILY 11/01/20 03/19/24 History tablet insulin glargine 100 unit/mL (3 90 unit SQ HS 11/01/20 03/19/24 History mL) subcutaneous pen pregabalin 200 mg capsule 200 mg PO BID 12/14/20 03/19/24 History ramipril 5 mg capsule 5 mg PO DAILY 01/07/21 03/19/24 History spironolactone 25 mg tablet 25 mg PO DAILY 02/05/21 03/19/24 History rosuvastatin 20 mg tablet 20 mg PO DAILY 02/14/21 03/19/24 History trazodone 100 mg tablet 100 mg PO HS 02/14/21 03/19/24 History hydrocodone 10 mg-acetaminophen 1 tab PO Q6HP PRN Moderate Pain 07/12/23 03/19/24 History 325 mg tablet (Scale Score 5-6) rivaroxaban 2.5 mg tablet (Xarelto) 2.5 mg PO BIDWMEAL 07/12/23 03/19/24 History insulin aspart U-100 100 unit/mL 0 sliding scale dose SQ AC 03/19/24 03/19/24 History (3 mL) subcutaneous pen (Novolog FlexPen U-100 Insulin aspart) isosorbide mononitrate 60 mg 60 mg PO DAILY 03/19/24 03/19/24 History tablet,extended release 24 hr metoprolol tartrate 100 mg tablet 100 mg PO BID 03/19/24 03/19/24 History New Prescriptions to Start Prescriptions: Allergies Allergy/AdvReac Type Severity Reaction Status Date / Time clopidogrel [From Plavix] Allergy Severe Hives Verified 03/20/24 07:31 amoxicillin [AMOXICILLIN] Allergy Unknown Unknown Verified 09/22/23 13:12 allergy reaction codeine [CODEINE] AdvReac Mild STOMACH Verified 09/22/23 13:12 CRAMPS morphine [MORPHINE] AdvReac Mild STOMACH Verified 09/22/23 13:12 CRAMPS oxycodone [From Percocet] AdvReac Mild STOMACH Verified 09/22/23 13:12 CRAMPS Assessment and Plan *Assessment and plan (1) DKA (diabetic ketoacidosis): Status: Acute Category: Medical Code(s): E11.10 - Type 2 diabetes mellitus with ketoacidosis without coma (2) Soft tissue infection: Status: Acute Category: Medical Code(s): L08.9 - Local infection of the skin and subcutaneous tissue, unspecified (3) CAD (coronary artery disease): Status: Chronic Qualifiers: Associated angina: without angina Coronary Disease-Associated Artery/Lesion type: [place] artery [place] vs. transplanted heart: [place] heart Qualified Code(s): I25.10 - Atherosclerotic heart disease of [place] coronary artery without angina pectoris Category: Medical Code(s): I25.10 - Atherosclerotic heart disease of [place] coronary artery without angina pectoris (4) Takotsubo cardiomyopathy: Status: Acute Category: Medical Code(s): I51.81 - Takotsubo syndrome Plan Hx of CAD Stenting in Dec 2014, March 2020, Nov 2020-NICM/Takotsubo cardiomyopathy Continue aspirin 81 mg daily, Xarelto 2.5 mg p.o. twice daily, atorvastatin 40 mg daily, Zetia 10 mg p.o. daily metoprolol 100 mg p.o. twice daily, ramipril 5 mg p.o. daily and Imdur 60 mg p.o. daily Hx of NICM/Takotsubo Cardiomyopathy 2020 EF recovered Nov 2020 Repeat echo today shows a normal EF, official read is pending Considering the patient?s known prior cardiac history, the patient is considered at high operative risk, but this risk is non-modifiable at this time and is unlikely to be further mitigated by additional pre-operative cardiac work-up. Accordingly, and if deemed surgically feasible, the patient may undergo surgery without additional cardiac testing. ?Post-operatively, routine care with close hemodynamic monitoring and cardiology consultation are recommended.
[2024-03-22] MEDS: VANCOMYCIN HCL 2,000 MG in 0.9 % SODIUM CHLORIDE 250 ML 125 MG IV ×2 (11:16→23:15)
[2024-03-22] MEDS: DEFINITY US ECHO CONTRAST 2ML INJ 2 MG IV (11:37)
[2024-03-22 12:00] VITALS: BP 129/66; PULSE 79; PULSE 80; RESP 22; TEMP 37.2; O2SAT 96
[2024-03-22 12:03] LABS: POC Glucose,Bedside 344 (70-110)
--- NOTE | 2024-03-22 14:23 | P.PN_ITS ---
Subjective *Date: 03/22/24 *Time: 14:23 Interval history: Patient remains tachycardic. On 1 L oxygen overnight, room air during the day. No nausea or vomiting. No chest pain. Had episode of SVT this morning, resolved with bearing down/vagal maneuver. Afebrile. Continues to have copious purulent drainage from left stump Medical Exam Vital signs and Labs for Last 24 Hours: Vital Signs Temp Pulse Pulse Resp BP Pulse Ox O2 Del Method 03/22/24 13:00 Room Air 03/22/24 12:00 80 03/22/24 12:00 98.9 F 79 22 129/66 96 Room Air 03/22/24 11:00 Room Air 03/22/24 09:00 Room Air 03/22/24 08:00 120 H 03/22/24 08:00 98.4 F 110 H 22 139/77 92 L Room Air 03/22/24 08:00 Room Air 03/22/24 06:50 Room Air 03/22/24 05:00 Room Air 03/22/24 04:00 127 H 03/22/24 04:00 98.8 F 90 20 133/84 98 Room Air 03/22/24 02:50 Room Air 03/22/24 00:57 Room Air 03/22/24 00:00 80 03/22/24 00:00 97.8 F 82 20 99/56 L 93 L Room Air 03/21/24 22:51 Room Air 03/21/24 21:00 Room Air 03/21/24 20:00 94 H 03/21/24 20:00 95 Room Air 03/21/24 20:00 97.5 F L 130 H 18 123/70 93 L Room Air 03/21/24 19:00 Room Air 03/21/24 17:00 Room Air 03/21/24 16:00 98.4 F 128 H 25 H 152/71 H 96 Room Air 03/21/24 16:00 116 H 03/21/24 15:00 Room Air Intake and Output 03/21/24 03/22/24 03/22/24 23:59 07:59 15:59 Intake Total 540 / 3451 100 / 610 510 / 610 Output Total 450 / 900 800 / 800 0 / 800 Balance 90 / 2551 -700 / -190 510 / -190 Intake: Intake, Oral Amount 540 / 2340 510 / 510 Intake, Total IV Amount 100 / 100 Metronidaz/Sod Chl 500 mg In 100 / 100 100 ml @ 100 mls/hr IV Q8H [facility] Rx#:[id number] Output: Output, Urine Amount 450 / 900 800 / 800 0 / 800 Other: Number of Unmeasured Voids 0 1 0 Number of Bowel Movements 1 1 1 Weight 126.144 kg Patient Weight 03/22/24 23:59 Weight 126.144 kg Laboratory Results - last 24 hr 03/21/24 15:54: POC Glucose 290 H 03/21/24 16:19: Sodium 134 L, Potassium 3.6, Chloride 113 H, Carbon Dioxide 16 L , Anion Gap 8.6, BUN 20 H, Creatinine 1.00, Estimated Creat Clear 60, Estimated GFR 58 L, Est GFR ( Amer) 70, Glucose 330 H D, Lactate 0.9, Calcium 8.7 03/21/24 20:22: POC Glucose 357 H* 03/22/24 05:54: POC Glucose 225 H 03/22/24 06:15: WBC 14.9 H, RBC 4.38, Hgb 11.8 L, Hct 37.6, MCV 85.9, MCH 26.9 L , MCHC 31.3 L, RDW 17.0, Plt Count 326, MPV 8.7, Neut % (Auto) 78.9, Lymph % (Auto) 10.4, [place] % (Auto) 9.6 H, Eos % (Auto) 0.7, Baso % (Auto) 0.3, Neut # (Auto) 11.8 H, Lymph # (Auto) 1.6, [place] # (Auto) 1.4 H, Eos # (Auto) 0.1, Baso # (Auto) 0.1, Sodium 138, Potassium 3.4 L, Chloride 108 H, Carbon Dioxide 20 L, Anion Gap 13.4, BUN 18 H, Creatinine 1.10 H, Estimated Creat Clear 54, Estimated GFR 52 L, Est GFR ( Amer) 62, Glucose 246 H D, Calcium 8.7 03/22/24 09:16: POC Glucose 340 H* 03/22/24 11:57: POC Glucose 344 H* I & O for Labs for Last 24 Hours: Intake & Output 03/19/24 03/20/24 03/21/24 03/22/24 23:59 23:59 23:59 23:59 Intake Total 417.891 / 554.673 2840.302 / 3161.302 3351 / 3451 610 / 610 Output Total 1700 / 1700 900 / 900 800 / 800 Balance 417.891 / 437.031 3431.302 / 7204.494 3523 / 2551 -190 / -190 Weight 123.065 kg 123.067 kg 123.067 kg 126.144 kg Microbiology Reports for the Last 24 Hours: Microbiology 03/21/24 10:00 Leg,Left Gram Stain - Final 03/21/24 10:00 Leg,Left Wound Culture - Preliminary Gram Negative Rods Constitutional: Present no acute distress, morbidly obese, chronically ill appearing and cooperative Head: Present atraumatic and normocephalic ENT: Present normal exam Neck: Present normal inspection Respiratory: Present normal respiratory effort; Absent rhonchi, wheezes or crack les Cardiac: Present Regular Rhythm and Tachycardia GI: Present soft and normal bowel sounds; Absent distention or tenderness Extremities: Present normal inspection and full ROM; Absent tenderness Comment:: Decree sensation in legs, left foot/stump with erythema, eschar, purulent drainage. Skin: Present intact and erythema (Left foot) Neuro: Present Grossly Intact, alert, awake, oriented x 3 and moves all extremities Comment:: Absent sensation in bilateral feet Assessment and Plan *Assessment and plan (1) Sepsis: Status: Resolved Qualifiers: Sepsis type: sepsis due to unspecified organism Sepsis acute organ dysfunction status: without acute organ dysfunction Qualified Code(s): A41.9 - Sepsis, unspecified organism Category: Medical Code(s): A41.9 - Sepsis, unspecified organism (2) DKA (diabetic ketoacidosis): Status: Acute Category: Medical Code(s): E11.10 - Type 2 diabetes mellitus with ketoacidosis without coma (3) Foot abscess, left: Status: Acute Category: Medical Code(s): L02.612 - Cutaneous abscess of left foot (4) Cellulitis of left foot: Status: Acute Category: Medical Code(s): L03.116 - Cellulitis of left lower limb (5) Type 2 diabetes mellitus with diabetic neuropathy, with long-term current use of insulin: Status: Acute Category: Medical Code(s): E11.40 - Type 2 diabetes mellitus with diabetic neuropathy, unspecified; Z79.4 - FDC (current) use of insulin (6) CAD (coronary artery disease): Status: Chronic Qualifiers: Coronary Disease-Associated Artery/Lesion type: [place] artery [place] vs. transplanted heart: [place] heart Associated angina: without angina Qualified Code(s): I25.10 - Atherosclerotic heart disease of [place] coronary artery without angina pectoris Category: Medical Code(s): I25.10 - Atherosclerotic heart disease of [place] coronary artery without angina pectoris (7) Hyperlipemia: Status: Chronic Qualifiers: Hyperlipidemia type: other hyperlipidemia Qualified Code(s): E78.49 - Other hyperlipidemia Category: Medical Code(s): E78.5 - Hyperlipidemia, unspecified (8) Essential hypertension: Status: Chronic Category: Medical Code(s): I10 - Essential (primary) hypertension (9) Diabetic foot: Status: Acute Category: Medical Code(s): E11.8 - Type 2 diabetes mellitus with unspecified complications (10) Stented coronary artery: Status: Chronic Category: Surgical Code(s): Z95.5 - Presence of coronary angioplasty implant and graft (11) Recurrent major depression resistant to treatment: Status: Acute Category: Medical Code(s): F33.9 - Major depressive disorder, recurrent, unspecified (12) 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: Status: Chronic Category: Medical Code(s): E66.2 - Morbid (severe) obesity with alveolar hypoventilation; Z68.41 - Body mass index [BMI] 40.0-44.9, adult Plan Patient is a 53-year-old female with past medical history of diabetes mellitus CAD hypertension hyperlipidemia who presented to hospital due to not feeling well, nausea vomiting shortness of breath. Patient admitted for DKA and sepsis. Anion gap is closed, currently on basal bolus regimen. Remains septic with tachycardia, leukocytosis, gangrene of left foot. Orthopedics and cardiology consulted and assisting with care. Continues to require inpatient and stepdown level of care. Problems addressed as follows: Sepsis Gangrene of left foot stump -Orthopedics consulted, recommend amputation (BKA) of left leg. -Continuing broad-spectrum antibiotics with vancomycin, cefepime, Flagyl. -Review of chart shows decreased ABIs. Infection of foot is likely culprit and development of DKA. - Patient interested in proceeding with amputation. Discussed risks and benefits of amputation today. -White count 14.9 today, down from 18.6 -Wound care consulted and assisting with debridement and management of left foot wound pending amputation -Blood cultures pending Type 2 diabetes with hyperglycemia, poorly controlled -A1c 9.6 on presentation. Initially in DKA, gap is closed. Continues to have hyperglycemia. -Increase sliding scale to high intensity -Increase basal insulin to 50 units twice daily - Further adjustments pending morning glucose, goal less than 150.- -CBC, CMP, magnesium ordered for the morning. Hx of CAD History of nonischemic cardiomyopathy/Takotsubo cardiomyopathy, 2020 -Cardiology consulted for preop optimization. Eleonora case this morning, recommend continuing meds as ordered. Patient high risk but benefits of surgery outweigh risks. - Stenting in Dec 2014, March 2020, Nov 2020-NICM/Takotsubo cardiomyopathy - Continue aspirin 81 mg daily, Xarelto 2.5 mg p.o. twice daily, atorvastatin 40 mg daily, Zetia 10 mg p.o. daily metoprolol 100 mg p.o. twice daily, ramipril 5 mg p.o. daily and Imdur 60 mg p.o. daily - EF recovered November 2020, Repeat echo today shows a normal EF, official read is pending -See cardiology note for full recommendations in details, risks are nonmodifiable. Patient at elevated risk for procedure. PT and OT consults to be placed after amputation SVT Hypertension Hyperlipidemia -Episode of SVT this morning prior to rounds. Improved to sinus tachycardia with vagal maneuver. Continue metoprolol, will consider daily adjustments for better rate control. Full code Continue Xarelto Diabetic diet
[2024-03-22 16:00] VITALS: BP 128/65; PULSE 60; PULSE 85; RESP 24; TEMP 37.2; O2SAT 96
[2024-03-22 16:54] LABS: POC Glucose,Bedside 354 (70-110)
[2024-03-22] MEDS: HYDROCODONE 10MG/APAP 325MG TAB 1 TAB PO (17:01)
--- NOTE | 2024-03-22 17:27 | EXP.ORTH.PN ---
Subjective *Date: 03/22/24 *Time: 17:27 Interval history: 53-year-old female follow-up visit in the hospital in regards to infection of left lower extremity nonhealing diabetic ulcer. Patient long discussion with physical therapy wound care and Dr. Soria in regards to the treatment recommendations for the nonhealing ulcer. Upon her last conversation with the patient she would like to consider options in regards to continued medical management intermediate debridements and wound care versus below-knee amputation. Upon further contemplation she is interested in below-knee amputation as a definitive treatment for the persistent infection the left lower extremity. She is also consulted with her accounts specialist who agrees. Ortho Exam (Inpt) Vital signs and Labs for Last 24 Hours: Temp Pulse Resp BP Pulse Ox O2 Del Method O2 Flow Rate 98.9 F 85 24 128/65 96 Room Air 1 03/22/24 16:00 03/22/24 16:00 03/22/24 16:00 03/22/24 16:00 03/22/24 16:00 03/22/24 16:00 03/19/24 17:00 Laboratory Results - last 24 hr 03/21/24 20:22: POC Glucose 357 H* 03/22/24 05:54: POC Glucose 225 H 03/22/24 06:15: WBC 14.9 H, RBC 4.38, Hgb 11.8 L, Hct 37.6, MCV 85.9, MCH 26.9 L, MCHC 31.3 L, RDW 17.0, Plt Count 326, MPV 8.7, Neut % (Auto) 78.9, Lymph % (Auto) 10.4, [place] % (Auto) 9.6 H, Eos % (Auto) 0.7, Baso % (Auto) 0.3, Neut # (Auto) 11.8 H, Lymph # (Auto) 1.6, [place] # (Auto) 1.4 H, Eos # (Auto) 0.1, Baso # (Auto) 0.1, Sodium 138, Potassium 3.4 L, Chloride 108 H, Carbon Dioxide 20 L, Anion Gap 13.4, BUN 18 H, Creatinine 1.10 H, Estimated Creat Clear 54, Estimated GFR 52 L, Est GFR ( Amer) 62, Glucose 246 H D, Calcium 8.7 03/22/24 09:16: POC Glucose 340 H* 03/22/24 11:57: POC Glucose 344 H* 03/22/24 16:47: POC Glucose 354 H* I & O for Labs for Last 24 Hours: Intake & Output 03/19/24 03/20/24 03/21/24 03/22/24 23:59 23:59 23:59 23:59 Intake Total 417.891 / 692.562 9691.302 / 3161.302 3351 / 3451 610 / 610 Output Total 1700 / 1700 900 / 900 800 / 800 Balance 417.891 / 702.704 5049.302 / 8672.234 0169 / 2551 -190 / -190 Weight 271 lb 5 oz 271 lb 5.06 oz 271 lb 5.06 oz 278 lb 1.6 oz Microbiology Reports for the Last 24 Hours: Microbiology 03/21/24 10:00 Leg,Left Gram Stain - Final 03/21/24 10:00 Leg,Left Wound Culture - Preliminary Gram Negative Rods Microbiology 03/21/24 10:00 Leg,Left Gram Stain - Final Findings:: Left lower extremity: There is circumferential redness swelling around the partial foot amputation. On the base and plantar aspect of the wound there is purulent drainage. The redness is demarcated clearly about 2 inches proximal to the wound. . X-rays left lower extremity show hardware in place with previous forefoot amputation. There is no gross evidence of bony changes radiographically to indicate osteomyelitis. I reviewed the newest CT scan from June 2023. At that time there was no CT evidence of osteomyelitis. Assessment and Plan *Assessment and plan (1) Soft tissue infection: Status: Acute Category: Medical Code(s): L08.9 - Local infection of the skin and subcutaneous tissue, unspecified (2) Foot abscess, left: Status: Acute Category: Medical Code(s): L02.612 - Cutaneous abscess of left foot (3) Cellulitis and abscess of foot: Status: Acute Category: Medical Code(s): L03.119 - Cellulitis of unspecified part of limb; L02.619 - Cutaneous abscess of unspecified foot Plan After further consultation and contemplation patient would like to proceed with below-knee amputation as definitive treatment for nonhealing diabetic wound on the left lower extremity. I do think this is a viable option given the extension of infection in the foot and the decreased blood flow. There are obviously complications from below-knee amputations that can happen as well as nonhealing stump and complications related to this and may require further surgery or repeat below-knee amputation and ultimately possible above-knee amputation. However given her current circumstance below-knee amputation as a possibility of definitively clearing infection of the lower extremity. Will continue to be on antibiotics and work on control of blood glucose prior to surgery. Pulmonary plan for surgery is on Thursday. PROPOSED SURGERY: Left below the knee amputation the risks and benefits of the proposed surgery were discussed in depth with the patient. Potential complications including inherent risk of anesthesia, infection, neurovascular damage, DVT, and rare but real potential loss of limb or life were all reviewed. Patient voices understanding and seems to understand to my satisfaction and wishes to proceed with surgery. I gave them adequate time to ask any questions they have pertaining to this surgery and answered all of them to the best of my ability. I gave them no guarantees in regards to outcomes of this surgery.
--- NOTE | 2024-03-22 17:49 | PC.NURSE ---
Pt resting in bed with family member at bedside. Pt Alert and Oriented X4. Pt has been given multiple sodas/snacks upon requests this shift. Pt tolerated getting up and sitting in chair with PT/OT this shift. Wound on partial left foot amputation was seen and dressed by wound care this shift, wound is odorous with purulent drainage. Pts HR has been stable since this mornings episode, all other vitals stable. Pt has c/o pain this shift and has been medicated as needed. Pt has no further needs at this time.
[2024-03-22 20:00] VITALS: BP 127/79; PULSE 110; PULSE 120; PULSE 88; RESP 21; TEMP 36.6; O2SAT 96
[2024-03-22] MEDS: ACETAMINOPHEN 325MG TAB 650 MG PO (20:14)
[2024-03-22] MEDS: ATORVASTATIN 40MG TABLET 40 MG PO (21:19)
[2024-03-22] MEDS: EZETIMIBE 10MG TABLET 10 MG PO (21:21)
[2024-03-22] MEDS: TRAZODONE 50MG TABLET 100 MG PO (21:21)
[2024-03-22] MEDS: ALPRAZolam 0.5MG TABLET 0.5 MG PO (21:47)
[2024-03-22 21:52] LABS: Vancomycin,Trough 22.5 ug/mL (5.0-10.0)
[2024-03-22] MEDS: PHA TO NURSING INSTRUCTION 1 EACH NOTAPPLIC (22:21)
[2024-03-23] VITALS: BP 97/62; PULSE 72; PULSE 75; RESP 22; TEMP 36.4; O2SAT 96
[2024-03-23 03:19] LABS: Vancomycin,Peak 49.7 ug/ml (11-39)
[2024-03-23] MEDS: CEFEPIME HCL 2 GM in 0.9 % SODIUM CHLORIDE 100 ML IV ×3 (03:19→17:24)
[2024-03-23 04:00] VITALS: BP 117/70; PULSE 67; PULSE 71; RESP 16; TEMP 36.8; O2SAT 98; BMI 47.3
[2024-03-23] MEDS: METRONIDAZ/SOD CHL 500 MG/100 ML PIGGYBACK 100 MG IV (04:39)
[2024-03-23] MEDS: humaLOG 100 UNITS/ML 3ML VIAL (SSI) SQ ×4 (05:37→21:30)
[2024-03-23] MEDS: HYDROCODONE 10MG/APAP 325MG TAB 1 TAB PO (05:37)
[2024-03-23 05:48] LABS: POC Glucose,Bedside 196 (70-110)
[2024-03-23 05:48] LABS: POC Glucose,Bedside 301 (70-110)
[2024-03-23 05:57] LABS: Basophils # 0.1 K/mm3 (0-0.2); Basophils % 0.5 % (0.1-2.0); Eosinophils # 0.4 K/mm3 (0.0-0.4); Eosinophils % 2.8 % (0.1-12.0); Hematocrit 36.8 % (37.0-47.0); Hemoglobin 11.3 g/dL (12.2-16.2); Lymphocytes # 1.7 K/mm3 (0.7-4.5); Lymphocytes % 12.5 % (10-50); Mean Corpuscular HGB Conc 30.7 g/dL (31.8-35.4); Mean Corpuscular Hemoglobin 26.7 pg (27.0-31.2); Mean Platelet Volume 8.8 fl (7.4-10.4); Monocytes # 1.5 K/mm3 (0.1-1.0); Monocytes % 11.1 % (1.7-9.3); Neutrophils # 9.9 K/mm3 (1.8-7.8); Neutrophils % 73.2 % (37.0-80.0); Platelet Count 316 K/mm3 (142-424); Red Blood Count 4.23 M/mm3 (4.20-5.40); Red Cell Distribution Width 17.1 % (11.5-17.5); White Blood Count 13.6 K/mm3 (4.8-10.8)
[2024-03-23 06:03] LABS: Alanine Aminotransferase 13 U/L (12-78); Albumin Level 2.6 g/dl (3.5-5.0); Albumin/Globulin Ratio 0.7 (1.1-1.8); Alkaline Phosphatase 100 U/L (38-126); Anion Gap 12.8 mEq/L (5-15); Aspartate Amino Transferase 14 U/L (14-36); Bilirubin,Total 0.2 mg/dl (0.2-1.3); Blood Urea Nitrogen 19 mg/dl (7-17); Calcium 8.5 mg/dl (8.4-10.2); Carbon Dioxide 18 mmol/L (22.0-30.0); Chloride 111 mmol/L (98-107); Creatinine Clearance Estimated 60 mL/min (50-200); Estimated Glomerular Filt Rate 58 ml/min (>60); GFR (African American) 70 ML/MIN (>60); Globulin 3.9 g/dL (1.3-3.2); Glucose 220 mg/dl (74-100); Magnesium 1.7 mg/dl (1.6-2.3); Potassium 3.8 mmoL/L (3.5-5.1); Sodium 138 mmol/L (136-145); Total Protein,Serum 6.5 g/dl (6.3-8.2)
[2024-03-23 06:09] LABS: C-Reactive Protein 57.3 mg/L (0-4)
[2024-03-23 06:14] LABS: Erythrocyte Sedimentation Rate > 140 mm/hr (0-30)
[2024-03-23 08:00] VITALS: BP 140/75; PULSE 70; PULSE 73; RESP 13; TEMP 36.7; O2SAT 99
--- NOTE | 2024-03-23 08:01 | P.CONPHA_ITS ---
Pharmacy Consult Date: 03/23/24 Time: 08:03 Referring provider: DR MOREJON Reason for Consult:: VANCOMYCIN TROUGH LEVEL OBTAINED Allergies Allergy/AdvReac Type Severity Reaction Status Date / Time clopidogrel [From Plavix] Allergy Severe Hives Verified 03/20/24 07:31 amoxicillin [AMOXICILLIN] Allergy Unknown Unknown Verified 09/22/23 13:12 allergy reaction codeine [CODEINE] AdvReac Mild STOMACH Verified 09/22/23 13:12 CRAMPS morphine [MORPHINE] AdvReac Mild STOMACH Verified 09/22/23 13:12 CRAMPS oxycodone [From Percocet] AdvReac Mild STOMACH Verified 09/22/23 13:12 CRAMPS Home Medications Medication Instructions Recorded Confirmed Type aspirin 81 mg chewable tablet 81 mg PO DAILY HEART HEALTH 04/08/19 03/19/24 History ezetimibe 10 mg tablet 10 mg PO HS 03/06/20 03/19/24 History duloxetine 60 mg capsule,delayed 60 mg PO BID 07/02/20 03/19/24 History release dapagliflozin propanediol 10 mg 10 mg PO DAILY 11/01/20 03/19/24 History tablet insulin glargine 100 unit/mL (3 90 unit SQ HS 11/01/20 03/19/24 History mL) subcutaneous pen pregabalin 200 mg capsule 200 mg PO BID 12/14/20 03/19/24 History ramipril 5 mg capsule 5 mg PO DAILY 01/07/21 03/19/24 History spironolactone 25 mg tablet 25 mg PO DAILY 02/05/21 03/19/24 History rosuvastatin 20 mg tablet 20 mg PO DAILY 02/14/21 03/19/24 History trazodone 100 mg tablet 100 mg PO HS 02/14/21 03/19/24 History hydrocodone 10 mg-acetaminophen 1 tab PO Q6HP PRN Moderate Pain 07/12/23 03/19/24 History 325 mg tablet (Scale Score 5-6) rivaroxaban 2.5 mg tablet (Xarelto) 2.5 mg PO BIDWMEAL 07/12/23 03/19/24 History insulin aspart U-100 100 unit/mL 0 sliding scale dose SQ AC 03/19/24 03/19/24 History (3 mL) subcutaneous pen (Novolog FlexPen U-100 Insulin aspart) isosorbide mononitrate 60 mg 60 mg PO DAILY 03/19/24 03/19/24 History tablet,extended release 24 hr metoprolol tartrate 100 mg tablet 100 mg PO BID 03/19/24 03/19/24 History New Prescriptions to Start Prescriptions: Height: 1.68 m Weight: 133.583 kg Laboratory Results:: Laboratory Results - last 24 hr 03/22/24 09:16: POC Glucose 340 H* 03/22/24 11:57: POC Glucose 344 H* 03/22/24 16:47: POC Glucose 354 H* 03/22/24 21:02: Vancomycin Trough 22.5 H 03/22/24 21:03: POC Glucose 301 H* 03/23/24 02:35: Vancomycin Peak 49.7 H* 03/23/24 05:11: WBC 13.6 H, RBC 4.23, Hgb 11.3 L, Hct 36.8 L, MCV 87.0, MCH 26.7 L, MCHC 30.7 L, RDW 17.1, Plt Count 316, MPV 8.8, Neut % (Auto) 73.2, Lymph % (Auto) 12.5, [place] % (Auto) 11.1 H, Eos % (Auto) 2.8, Baso % (Auto) 0.5, Neut # (Auto) 9.9 H, Lymph # (Auto) 1.7, [place] # (Auto) 1.5 H, Eos # (Auto) 0.4, Baso # (Auto) 0.1, ESR > 140 H, Sodium 138, Potassium 3.8, Chloride 111 H, Carbon Dioxide 18 L, Anion Gap 12.8, BUN 19 H, Creatinine 1.00, Estimated Creat Clear 60, Estimated GFR 58 L, Est GFR ( Amer) 70, Glucose 220 H, Calcium 8.5, Magnesium 1.7 D, Total Bilirubin 0.2, AST 14 D, ALT 13, Alkaline Phosphatase 100, C-Reactive Protein 57.3 H D, Total Protein 6.5, Albumin 2.6 L, Globulin 3.9 H, Albumin/Globulin Ratio 0.7 L 03/23/24 05:26: POC Glucose 196 H 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: 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 (Updated 03/22/24 @ 14:35 by Levi Morejon MD) Recurrent major depression resistant to treatment Anemia HTN (hypertension) Type 2 diabetes mellitus with diabetic neuropathy, with long-term current use of insulin Hyperlipemia CAD (coronary artery disease) Essential hypertension Vitamin D deficiency Assessment and Plan Assessment and plan all Dx Assessment and Plan for all problems:: Pharmacokinetic dosing service Weight: 133.583 Kilograms Vancomycin single level analysis: Current dose being given: 2000 mg Current dosing interval: 12 hrs Current infusion time (hrs): 2 Single level Trough Data: Trough level obtained: 22.5 mcg/ml Timing of trough - # of hrs before next dose: 0.5 Hrs Desired peak: 35 mcg/ml Desired trough: 12.5 mcg/ml Diagnosis: SEPSIS/DIABETIC ULCER Estimated PK Parameters: New rate constant (jag): 0.058 hr-1 Half-life: 11.95 Hours Vd from levels: 93.51 Liters (0.7 L/kg) CLvanco=?? 5.424 L/hr Estimated New Dose and Interval Recommended dose: 2367.0 mg Recommended interval: 19.8 Hrs Recommendations: Give Vancomycin 2250 mg q 18 hrs. Infuse over 2 hrs Expected Cpeak: 35.1 mcg/mL Expected Ctrough: 13.9 mcg/mL AUC 0-24 /TIARRA Data: TIARRA 0.5 mcg/mL:?? AUC/TIARRA:? 1106.2 TIARRA 1.0 mcg/mL:?? AUC/TIARRA:? 553.1 Thank you for the consult
--- NOTE | 2024-03-23 08:11 | EXP.ACUTE.PN ---
Subjective *Date: 03/23/24 *Time: 11:14 Interval history: Spoke with Ortho yesterday. Okay to move forward with left BKA. No fever overnight. Having some mild pain in left leg, this is a first for her. Denies nausea or vomiting. Glucose will be better controlled today. White cell count showing improvement. No chest pain or shortness of breath. In bedside chair on exam Medical Exam Vital signs and Labs for Last 24 Hours: Vital Signs Temp Pulse Pulse Resp BP Pulse Ox O2 Del Method 03/23/24 04:00 67 03/23/24 04:00 98.3 F 71 16 117/70 98 Room Air 03/23/24 00:00 72 03/23/24 00:00 97.6 F 75 22 97/62 L 96 Room Air 03/22/24 20:00 120 H 03/22/24 20:00 88 03/22/24 20:00 97.9 F 110 H 21 127/79 96 Room Air 03/22/24 18:45 Room Air 03/22/24 17:00 Room Air 03/22/24 16:00 60 03/22/24 16:00 98.9 F 85 24 128/65 96 Room Air 03/22/24 15:00 Room Air 03/22/24 13:00 Room Air 03/22/24 12:00 80 03/22/24 12:00 98.9 F 79 22 129/66 96 Room Air 03/22/24 11:00 Room Air 03/22/24 09:00 Room Air Intake and Output 03/22/24 03/23/24 03/23/24 23:59 07:59 15:59 Intake Total 480 / 1210 Output Total 700 / 1500 400 / 400 Balance -220 / -290 -400 / -400 Intake: Intake, Oral Amount 480 / 1110 Output: Output, Urine Amount 700 / 1500 400 / 400 Other: Number of Unmeasured Voids 0 Weight 133.583 kg 133.583 kg Patient Weight 03/23/24 23:59 Weight 133.583 kg Laboratory Results - last 24 hr 03/22/24 09:16: POC Glucose 340 H* 03/22/24 11:57: POC Glucose 344 H* 03/22/24 16:47: POC Glucose 354 H* 03/22/24 21:02: Vancomycin Trough 22.5 H 03/22/24 21:03: POC Glucose 301 H* 03/23/24 02:35: Vancomycin Peak 49.7 H* 03/23/24 05:11: WBC 13.6 H, RBC 4.23, Hgb 11.3 L, Hct 36.8 L, MCV 87.0, MCH 26.7 L, MCHC 30.7 L, RDW 17.1, Plt Count 316, MPV 8.8, Neut % (Auto) 73.2, Lymph % (Auto) 12.5, [place] % (Auto) 11.1 H, Eos % (Auto) 2.8, Baso % (Auto) 0.5, Neut # (Auto) 9.9 H, Lymph # (Auto) 1.7, [place] # (Auto) 1.5 H, Eos # (Auto) 0.4, Baso # (Auto) 0.1, ESR > 140 H, Sodium 138, Potassium 3.8, Chloride 111 H, Carbon Dioxide 18 L, Anion Gap 12.8, BUN 19 H, Creatinine 1.00, Estimated Creat Clear 60, Estimated GFR 58 L, Est GFR ( Amer) 70, Glucose 220 H, Calcium 8.5, Magnesium 1.7 D, Total Bilirubin 0.2, AST 14 D, ALT 13, Alkaline Phosphatase 100, C-Reactive Protein 57.3 H D, Total Protein 6.5, Albumin 2.6 L, Globulin 3.9 H, Albumin/Globulin Ratio 0.7 L 03/23/24 05:26: POC Glucose 196 H I & O for Labs for Last 24 Hours: Intake & Output 03/20/24 03/21/24 03/22/24 03/23/24 23:59 23:59 23:59 23:59 Intake Total 3161.302 / 3161.302 3351 / 3451 1210 / 1210 Output Total 1700 / 1700 900 / 900 1500 / 1500 400 / 400 Balance 1461.302 / 4684.952 9004 / 2551 -290 / -290 -400 / -400 Weight 123.067 kg 123.067 kg 126.144 kg 133.583 kg Microbiology Reports for the Last 24 Hours: Microbiology 03/21/24 10:00 Leg,Left Gram Stain - Final 03/21/24 10:00 Leg,Left Wound Culture - Preliminary Gram Negative Rods Constitutional: Present no acute distress, morbidly obese, chronically ill appearing and cooperative Head: Present atraumatic and normocephalic ENT: Present normal exam Neck: Present normal inspection Respiratory: Present normal respiratory effort; Absent rhonchi, wheezes or crackles Cardiac: Present Regular Rhythm and Tachycardia GI: Present soft and normal bowel sounds; Absent distention or tenderness Extremities: Present normal inspection and full ROM; Absent tenderness Comment:: Decree sensation bilaterally. Left foot in clean dry wrap. No redness of the lower leg. Skin: Present intact; Absent erythema Neuro: Present Grossly Intact, alert, awake, oriented x 3 and moves all extremities Comment:: Absent sensation in bilateral feet Assessment and Plan *Assessment and plan (1) Sepsis: Status: Resolved Qualifiers: Sepsis acute organ dysfunction status: without acute organ dysfunction Sepsis type: sepsis due to unspecified organism Qualified Code(s): A41.9 - Sepsis, unspecified organism Category: Medical Code(s): A41.9 - Sepsis, unspecified organism (2) DKA (diabetic ketoacidosis): Status: Acute Category: Medical Code(s): E11.10 - Type 2 diabetes mellitus with ketoacidosis without coma (3) Foot abscess, left: Status: Acute Category: Medical Code(s): L02.612 - Cutaneous abscess of left foot (4) Cellulitis of left foot: Status: Acute Category: Medical Code(s): L03.116 - Cellulitis of left lower limb (5) Type 2 diabetes mellitus with diabetic neuropathy, with long-term current use of insulin: Status: Acute Category: Medical Code(s): E11.40 - Type 2 diabetes mellitus with diabetic neuropathy, unspecified; Z79.4 - skilled nursing (current) use of insulin (6) CAD (coronary artery disease): Status: Chronic Qualifiers: Associated angina: without angina Coronary Disease-Associated Artery/Lesion type: [place] artery [place] vs. transplanted heart: [place] heart Qualified Code(s): I25.10 - Atherosclerotic heart disease of [place] coronary artery without angina pectoris Category: Medical Code(s): I25.10 - Atherosclerotic heart disease of [place] coronary artery without angina pectoris (7) Hyperlipemia: Status: Chronic Qualifiers: Hyperlipidemia type: other hyperlipidemia Qualified Code(s): E78.49 - Other hyperlipidemia Category: Medical Code(s): E78.5 - Hyperlipidemia, unspecified (8) Essential hypertension: Status: Chronic Category: Medical Code(s): I10 - Essential (primary) hypertension (9) Diabetic foot: Status: Acute Category: Medical Code(s): E11.8 - Type 2 diabetes mellitus with unspecified complications (10) Stented coronary artery: Status: Chronic Category: Surgical Code(s): Z95.5 - Presence of coronary angioplasty implant and graft (11) Recurrent major depression resistant to treatment: Status: Acute Category: Medical Code(s): F33.9 - Major depressive disorder, recurrent, unspecified (12) 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: Status: Chronic Category: Medical Code(s): E66.2 - Morbid (severe) obesity with alveolar hypoventilation; Z68.41 - Body mass index [BMI] 40.0-44.9, adult Plan Patient is a 53-year-old female with past medical history of diabetes mellitus CAD hypertension hyperlipidemia who presented to hospital due to not feeling well, nausea vomiting shortness of breath. Patient admitted for DKA and sepsis. Anion gap is closed, currently on basal bolus regimen. Clinically showing improvement. Heart rate better controlled. Still has leukocytosis and gangrene of foot. Orthopedics and cardiology assisting with care. Anticipate left BKA on Thursday. Continuing to improve glucose control for healing and surgical intervention. Problems addressed as follows: Sepsis Gangrene of left foot stump -Orthopedics consulted, discussed case with Ortho, will proceed with BKA of the left lower leg in the next day or 2 with improved glucose control. -Continuing broad-spectrum antibiotics with vancomycin, cefepime, Flagyl. Wound culture growing positive for E. coli -White count 13.6, improving, repeat CBC, CMP, magnesium ordered for the morning. -Wound care consulted and assisting with debridement and management of left foot wound pending amputation -Blood cultures pending Type 2 diabetes with hyperglycemia, poorly controlled -A1c 9.6 on presentation. Initially in DKA, gap is closed. Continues to have hyperglycemia. -Schedule 5 units mealtime insulin plus sliding scale (high intensity) -Increase basal insulin to 55 units twice daily -Further adjustments pending morning glucose, goal less than 150 with morning glucose, goal improved glucose control throughout the day of less than 200 Hx of CAD History of nonischemic cardiomyopathy/Takotsubo cardiomyopathy, 2021 -Cardiology consulted for preop optimization. Eleonora case this morning, recommend continuing meds as ordered. Patient high risk but benefits of surgery outweigh risks. - Stenting in Dec 2014, March 2020, Nov 2020-NICM/Takotsubo cardiomyopathy - Continue aspirin 81 mg daily, Xarelto 2.5 mg p.o. twice daily, atorvastatin 40 mg daily, Zetia 10 mg p.o. daily metoprolol 100 mg p.o. twice daily, ramipril 5 mg p.o. daily and Imdur 60 mg p.o. daily - EF recovered November 2020, Repeat echo today shows a normal EF, official read is pending -See cardiology note for full recommendations in details, risks are nonmodifiable. Patient at elevated risk for procedure. PT and OT consults to be placed after amputation SVT, resolved Hypertension Hyperlipidemia - Continue metoprolol, will consider daily adjustments for better rate control. Heart rate normal today in the 70s. Blood pressure well-controlled at 140/75. Full code Continue Xarelto Diabetic diet
[2024-03-23] MEDS: ISOSORBIDE MONO 60MG TAB.ER.24H 60 MG PO (08:24)
[2024-03-23] MEDS: SPIRONOLACTONE 25MG TABLET 25 MG PO (08:24)
[2024-03-23] MEDS: DAPAGLIFLOZIN PROPANEDIOL 10 MG TABLET PO (08:24)
[2024-03-23] MEDS: DULOXETINE 30MG CAPSULE.DR 60 MG PO (08:24)
[2024-03-23] MEDS: PREGABALIN 100MG CAPSULE 200 MG PO ×2 (08:24→21:30)
[2024-03-23] MEDS: RIVAROXABAN 2.5MG TABLET 2.5 MG PO (08:24)
[2024-03-23] MEDS: ASPIRIN 81MG CHEWABLE TABLET 81 MG PO (08:24)
[2024-03-23] MEDS: METOPROLOL TARTRATE 50MG TABLET 100 MG PO ×2 (08:24→21:30)
[2024-03-23] MEDS: INSULIN GLARGINE 100 UNITS/ML 3ML FLEXPEN 55 UNIT SQ ×2 (08:32→21:31)
[2024-03-23 08:48] LABS: POC Glucose,Bedside 226 (70-110)
[2024-03-23] MEDS: 0.9 % SODIUM CHLORIDE 1000ML 1,000 ML 50 ML IV (10:51)
[2024-03-23 11:12] LABS: POC Glucose,Bedside 249 (70-110)
--- NOTE | 2024-03-23 11:19 | CARE MANAGER ---
Addendum entered by Juany Ta RN 03/25/24 15:36: Faxed all clinical including OP note to [facility], Elidia is reviewing. Original Note: CM has met with patient to discuss discharge planning. Patient will benefit from a SNF at time of discharge due to planned BKA on Thursday. Patient stated that she is open for any facility except [place] and [place]. Patient Choice signed and scanned into chart.
[2024-03-23 12:00] VITALS: BP 130/73; PULSE 67; PULSE 70; RESP 22; TEMP 36.7; O2SAT 97
[2024-03-23] MEDS: humaLOG 100 UNITS/ML 3ML VIAL (SSI) 5 UNIT SQ ×2 (12:16→17:23)
[2024-03-23] MEDS: metroNIDAZOLE 500 MG TABLET PO ×2 (12:17→21:30)
[2024-03-23] MEDS: ALPRAZolam 0.5MG TABLET 0.5 MG PO ×2 (13:44→21:30)
[2024-03-23 16:00] VITALS: BP 113/84; PULSE 88; RESP 20; TEMP 36.9; O2SAT 97
[2024-03-23 17:18] LABS: POC Glucose,Bedside 288 (70-110)
--- NOTE | 2024-03-23 18:32 | PC.NURSE ---
Pt has been up to the chair this shift. No complaints stated. She is currently in bed. DSG to (R) limb changed. Medications administered per mar. Call light within reach.
[2024-03-23 20:00] VITALS: BP 124/69; PULSE 83; RESP 18; TEMP 36.7; O2SAT 96
[2024-03-23 21:21] LABS: POC Glucose,Bedside 306 (70-110)
[2024-03-23] MEDS: ATORVASTATIN 40MG TABLET 40 MG PO (21:30)
[2024-03-23] MEDS: EZETIMIBE 10MG TABLET 10 MG PO (21:30)
[2024-03-23] MEDS: TRAZODONE 50MG TABLET 100 MG PO (21:30)
[2024-03-23] MEDS: VANCOMYCIN HCL 2,250 MG in 0.9 % SODIUM CHLORIDE 250 ML 125 MG IV (22:07)
[2024-03-24] VITALS: BP 127/81; PULSE 85; RESP 18; TEMP 36.7; O2SAT 95
[2024-03-24] MEDS: CEFEPIME HCL 2 GM in 0.9 % SODIUM CHLORIDE 100 ML IV ×3 (01:19→18:28)
[2024-03-24 04:00] VITALS: BP 139/84; PULSE 102; RESP 20; TEMP 36.5; O2SAT 97; BMI 46.6
[2024-03-24 05:53] LABS: POC Glucose,Bedside 148 (70-110)
[2024-03-24 06:21] LABS: Basophils # 0.1 K/mm3 (0-0.2); Basophils % 0.7 % (0.1-2.0); Eosinophils # 0.4 K/mm3 (0.0-0.4); Eosinophils % 3.5 % (0.1-12.0); Hemoglobin 11.3 g/dL (12.2-16.2); Lymphocytes # 1.8 K/mm3 (0.7-4.5); Lymphocytes % 15.1 % (10-50); Mean Corpuscular HGB Conc 31.4 g/dL (31.8-35.4); Mean Corpuscular Hemoglobin 26.4 pg (27.0-31.2); Mean Corpuscular Volume 84.2 fl (81-99); Monocytes # 1.1 K/mm3 (0.1-1.0); Monocytes % 9.1 % (1.7-9.3); Neutrophils # 8.7 K/mm3 (1.8-7.8); Neutrophils % 71.6 % (37.0-80.0); Platelet Count 327 K/mm3 (142-424); Red Blood Count 4.27 M/mm3 (4.20-5.40); Red Cell Distribution Width 17.2 % (11.5-17.5); White Blood Count 12.2 K/mm3 (4.8-10.8)
[2024-03-24 06:27] LABS: Alanine Aminotransferase 13 U/L (12-78); Albumin Level 2.5 g/dl (3.5-5.0); Albumin/Globulin Ratio 0.6 (1.1-1.8); Alkaline Phosphatase 97 U/L (38-126); Anion Gap 11.7 mEq/L (5-15); Aspartate Amino Transferase 14 U/L (14-36); Bilirubin,Total 0.2 mg/dl (0.2-1.3); Blood Urea Nitrogen 15 mg/dl (7-17); Calcium 8.5 mg/dl (8.4-10.2); Carbon Dioxide 21 mmol/L (22.0-30.0); Chloride 110 mmol/L (98-107); Creatinine Clearance Estimated 74 mL/min (50-200); Estimated Glomerular Filt Rate 74 ml/min (>60); GFR (African American) 90 ML/MIN (>60); Globulin 3.9 g/dL (1.3-3.2); Glucose 162 mg/dl (74-100); Potassium 3.7 mmoL/L (3.5-5.1); Sodium 139 mmol/L (136-145); Total Protein,Serum 6.4 g/dl (6.3-8.2)
[2024-03-24] MEDS: humaLOG 100 UNITS/ML 3ML VIAL (SSI) 10 UNIT SQ ×3 (06:56→16:07)
[2024-03-24 07:15] LABS: Magnesium 1.5 mg/dl (1.6-2.3)
[2024-03-24 08:00] VITALS: BP 145/76; PULSE 83; RESP 18; TEMP 36.7; O2SAT 98
[2024-03-24] MEDS: INSULIN GLARGINE 100 UNITS/ML 3ML FLEXPEN 55 UNIT SQ ×2 (09:19→22:04)
[2024-03-24] MEDS: SPIRONOLACTONE 25MG TABLET 25 MG PO (09:23)
[2024-03-24] MEDS: METOPROLOL TARTRATE 50MG TABLET 100 MG PO ×2 (09:23→22:02)
[2024-03-24] MEDS: DAPAGLIFLOZIN PROPANEDIOL 10 MG TABLET PO (09:23)
[2024-03-24] MEDS: ISOSORBIDE MONO 60MG TAB.ER.24H 60 MG PO (09:23)
[2024-03-24] MEDS: metroNIDAZOLE 500 MG TABLET PO ×3 (09:23→22:02)
[2024-03-24] MEDS: ASPIRIN 81MG CHEWABLE TABLET 81 MG PO (09:23)
[2024-03-24] MEDS: DULOXETINE 30MG CAPSULE.DR 60 MG PO (09:24)
[2024-03-24] MEDS: PREGABALIN 100MG CAPSULE 200 MG PO ×2 (09:25→22:02)
[2024-03-24] MEDS: 0.9 % SODIUM CHLORIDE 1000ML 1,000 ML 50 ML IV (09:27)
[2024-03-24 09:48] LABS: POC Glucose,Bedside 272 (70-110)
[2024-03-24 11:09] LABS: POC Glucose,Bedside 276 (70-110)
[2024-03-24] MEDS: humaLOG 100 UNITS/ML 3ML VIAL (SSI) SQ ×3 (11:10→22:03)
[2024-03-24 12:00] VITALS: BP 130/79; PULSE 84; RESP 16; TEMP 36.7; O2SAT 96
--- NOTE | 2024-03-24 13:55 | P.PN_ITS ---
Subjective *Date: 03/24/24 *Time: 13:55 Medical Exam Vital signs and Labs for Last 24 Hours: Vital Signs Temp Pulse Resp BP Pulse Ox O2 Del Method 03/24/24 11:00 Room Air 03/24/24 09:49 Room Air 03/24/24 09:37 Room Air 03/24/24 08:00 98.1 F 83 18 145/76 H 98 Room Air 03/24/24 04:00 97.7 F 102 H 20 139/84 97 Room Air 03/24/24 00:00 98.0 F 85 18 127/81 95 Room Air 03/23/24 20:00 98.1 F 83 18 124/69 96 Room Air 03/23/24 18:52 Room Air 03/23/24 17:00 Room Air 03/23/24 16:00 98.4 F 88 20 113/84 97 Room Air 03/23/24 15:00 Room Air Intake and Output 03/23/24 03/24/24 03/24/24 23:59 07:59 15:59 Intake Total 270 / 990 535 / 535 Output Total 500 / 2200 1225 / 1825 600 / 1825 Balance -230 / -1210 -1225 / -1290 -65 / -1290 Intake: Intake, Oral Amount 270 / 990 535 / 535 Output: Output, Urine Amount 500 / 2200 1225 / 1825 600 / 1825 Other: Number of Unmeasured Voids 1 Weight 131.712 kg Patient Weight 03/24/24 23:59 Weight 131.712 kg Laboratory Results - last 24 hr 03/23/24 17:11: POC Glucose 288 H 03/23/24 21:15: POC Glucose 306 H* 03/24/24 05:28: WBC 12.2 H, RBC 4.27, Hgb 11.3 L, Hct 36.0 L, MCV 84.2, MCH 26.4 L, MCHC 31.4 L, RDW 17.2, Plt Count 327, MPV 9.0, Neut % (Auto) 71.6, Lymph % (Auto) 15.1, [place] % (Auto) 9.1, Eos % (Auto) 3.5, Baso % (Auto) 0.7, Neut # (Auto) 8.7 H, Lymph # (Auto) 1.8, [place] # (Auto) 1.1 H, Eos # (Auto) 0.4, Baso # (Auto) 0.1, Sodium 139, Potassium 3.7, Chloride 110 H, Carbon Dioxide 21 L, Anion Gap 11.7, BUN 15, Creatinine 0.80, Estimated Creat Clear 74, Estimated GFR 74, Est GFR ( Amer) 90 D, Glucose 162 H, Calcium 8.5, Magnesium 1.5 L D, Total Bilirubin 0.2, AST 14, ALT 13, Alkaline Phosphatase 97, Total Protein 6.4, Albumin 2.5 L, Globulin 3.9 H, Albumin/Globulin Ratio 0.6 L 03/24/24 05:34: POC Glucose 148 H 03/24/24 09:22: POC Glucose 272 H 03/24/24 11:02: POC Glucose 276 H I & O for Labs for Last 24 Hours: Intake & Output 03/21/24 03/22/24 03/23/24 03/24/24 23:59 23:59 23:59 23:59 Intake Total 3351 / 3451 1210 / 1210 990 / 990 535 / 535 Output Total 900 / 900 1500 / 1500 1500 / 2200 1825 / 1825 Balance 2451 / 2551 -290 / -290 -510 / -1210 -1290 / -1290 Weight 123.067 kg 126.144 kg 133.583 kg 131.712 kg Microbiology Reports for the Last 24 Hours: Microbiology 03/21/24 10:00 Leg,Left Gram Stain - Final 03/21/24 10:00 Leg,Left Wound Culture - Final Escherichia coli The patient's infection will respond to the chosen ABx?: Yes Is the patient receiving the right drug, dose, and route?: Yes Could a more targeted ABx be ordered?: No (E COLI SENSITIVE TO CEFEPIME IN WOUND CX.)
[2024-03-24 16:00] VITALS: BP 143/65; BP 143/86; PULSE 79; RESP 18; TEMP 36.9; O2SAT 97
[2024-03-24] MEDS: VANCOMYCIN HCL 2,250 MG in 0.9 % SODIUM CHLORIDE 250 ML 125 MG IV (16:06)
[2024-03-24] MEDS: ALPRAZolam 0.5MG TABLET 0.5 MG PO (16:06)
--- NOTE | 2024-03-24 16:38 | P.PN_ITS ---
Subjective *Date: 03/24/24 *Time: 16:38 Medical Exam Vital signs and Labs for Last 24 Hours: Vital Signs Temp Pulse Resp BP Pulse Ox O2 Del Method 03/24/24 15:17 Room Air 03/24/24 13:00 Room Air 03/24/24 11:00 Room Air 03/24/24 09:49 Room Air 03/24/24 09:37 Room Air 03/24/24 08:00 98.1 F 83 18 145/76 H 98 Room Air 03/24/24 04:00 97.7 F 102 H 20 139/84 97 Room Air 03/24/24 00:00 98.0 F 85 18 127/81 95 Room Air 03/23/24 20:00 98.1 F 83 18 124/69 96 Room Air 03/23/24 18:52 Room Air 03/23/24 17:00 Room Air Intake and Output 03/24/24 03/24/24 03/24/24 07:59 15:59 23:59 Intake Total 535 / 535 Output Total 1225 / 1825 600 / 1825 Balance -1225 / -1290 -65 / -1290 Intake: Intake, Oral Amount 535 / 535 Output: Output, Urine Amount 1225 / 1825 600 / 1825 Other: Weight 131.712 kg Patient Weight 03/24/24 23:59 Weight 131.712 kg Laboratory Results - last 24 hr 03/23/24 17:11: POC Glucose 288 H 03/23/24 21:15: POC Glucose 306 H* 03/24/24 05:28: WBC 12.2 H, RBC 4.27, Hgb 11.3 L, Hct 36.0 L, MCV 84.2, MCH 26.4 L, MCHC 31.4 L, RDW 17.2, Plt Count 327, MPV 9.0, Neut % (Auto) 71.6, Lymph % (Auto) 15.1, [place] % (Auto) 9.1, Eos % (Auto) 3.5, Baso % (Auto) 0.7, Neut # (Auto) 8.7 H, Lymph # (Auto) 1.8, [place] # (Auto) 1.1 H, Eos # (Auto) 0.4, Baso # (Auto) 0.1, Sodium 139, Potassium 3.7, Chloride 110 H, Carbon Dioxide 21 L, Anion Gap 11.7, BUN 15, Creatinine 0.80, Estimated Creat Clear 74, Estimated GFR 74, Est GFR ( Amer) 90 D, Glucose 162 H, Calcium 8.5, Magnesium 1.5 L D, Total Bilirubin 0.2, AST 14, ALT 13, Alkaline Phosphatase 97, Total Protein 6.4, Albumin 2.5 L, Globulin 3.9 H, Albumin/Globulin Ratio 0.6 L 03/24/24 05:34: POC Glucose 148 H 03/24/24 09:22: POC Glucose 272 H 03/24/24 11:02: POC Glucose 276 H I & O for Labs for Last 24 Hours: Intake & Output 03/21/24 03/22/24 03/23/24 03/24/24 23:59 23:59 23:59 23:59 Intake Total 3351 / 3451 1210 / 1210 990 / 990 535 / 535 Output Total 900 / 900 1500 / 1500 1500 / 2200 1825 / 1825 Balance 2451 / 2551 -290 / -290 -510 / -1210 -1290 / -1290 Weight 123.067 kg 126.144 kg 133.583 kg 131.712 kg Microbiology Reports for the Last 24 Hours: Microbiology 03/21/24 10:00 Leg,Left Gram Stain - Final 03/21/24 10:00 Leg,Left Wound Culture - Final Escherichia coli Assessment and Plan *Assessment and plan (1) Foot abscess, left: Status: Acute Category: Medical Code(s): L02.612 - Cutaneous abscess of left foot (2) DKA (diabetic ketoacidosis): Status: Acute Category: Medical Code(s): E11.10 - Type 2 diabetes mellitus with ketoacidosis without coma (3) Sepsis: Status: Resolved Qualifiers: Sepsis type: sepsis due to unspecified organism Sepsis acute organ dysfunction status: without acute organ dysfunction Qualified Code(s): A41.9 - Sepsis, unspecified organism Category: Medical Code(s): A41.9 - Sepsis, unspecified organism (4) Cellulitis of left foot: Status: Acute Category: Medical Code(s): L03.116 - Cellulitis of left lower limb (5) Type 2 diabetes mellitus with diabetic neuropathy, with long-term current use of insulin: Status: Acute Category: Medical Code(s): E11.40 - Type 2 diabetes mellitus with diabetic neuropathy, unspecified; Z79.4 - long-term (current) use of insulin (6) CAD (coronary artery disease): Status: Chronic Qualifiers: Coronary Disease-Associated Artery/Lesion type: [place] artery [place] vs. transplanted heart: [place] heart Associated angina: without angina Qualified Code(s): I25.10 - Atherosclerotic heart disease of [place] coronary artery without angina pectoris Category: Medical Code(s): I25.10 - Atherosclerotic heart disease of [place] coronary artery without angina pectoris (7) Hyperlipemia: Status: Chronic Qualifiers: Hyperlipidemia type: other hyperlipidemia Qualified Code(s): E78.49 - Other hyperlipidemia Category: Medical Code(s): E78.5 - Hyperlipidemia, unspecified (8) Essential hypertension: Status: Chronic Category: Medical Code(s): I10 - Essential (primary) hypertension (9) Diabetic foot: Status: Acute Category: Medical Code(s): E11.8 - Type 2 diabetes mellitus with unspecified complications (10) Stented coronary artery: Status: Chronic Category: Surgical Code(s): Z95.5 - Presence of coronary angioplasty implant and graft (11) Recurrent major depression resistant to treatment: Status: Acute Category: Medical Code(s): F33.9 - Major depressive disorder, recurrent, unspecified (12) 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: Status: Chronic Category: Medical Code(s): E66.2 - Morbid (severe) obesity with alveolar hypoventilation; Z68.41 - Body mass index [BMI] 40.0-44.9, adult Plan Patient is a 53-year-old female with past medical history of diabetes mellitus CAD hypertension hyperlipidemia who presented to hospital due to not feeling well, nausea vomiting shortness of breath. Patient admitted for DKA and sepsis. Anion gap is closed, currently on basal bolus regimen. Clinically showing improvement. Heart rate better controlled. Still has leukocytosis and gangrene of foot. Orthopedics and cardiology assisting with care. Anticipate left BKA in the morning. N.p.o. at midnight. Continuing to improve glucose control for healing and surgical intervention. Problems addressed as follows: Sepsis Gangrene of left foot stump -Orthopedics consulted, discussed case with Ortho, will proceed with BKA of the left lower leg in the morning. -Continuing broad-spectrum antibiotics with vancomycin, cefepime, Flagyl. Wound culture growing positive for E. coli -White count 12.2. repeat CBC, CMP, magnesium ordered for the morning. -Wound care consulted and assisting with debridement and management of left foot wound pending amputation Type 2 diabetes with hyperglycemia, poorly controlled -A1c 9.6 on presentation. Initially in DKA, gap is closed. Continues to have hyperglycemia. -Schedule 10 units mealtime insulin plus sliding scale (high intensity) -basal insulin to 55 units twice daily -Further adjustments pending morning glucose, goal less than 150 with morning glucose, glucose 162 this morning. Hx of CAD History of nonischemic cardiomyopathy/Takotsubo cardiomyopathy, 2020 -Cardiology consulted for preop optimization. Eleonora case this morning, recommend continuing meds as ordered. Patient high risk but benefits of surgery outweigh risks. - Stenting in Dec 2014, March 2020, Nov 2020-NICM/Takotsubo cardiomyopathy - Continue aspirin 81 mg daily, Xarelto 2.5 mg p.o. twice daily, atorvastatin 40 mg daily, Zetia 10 mg p.o. daily metoprolol 100 mg p.o. twice daily, ramipril 5 mg p.o. daily and Imdur 60 mg p.o. daily - EF recovered November 2020, Repeat echo today shows a normal EF, official read is pending -See cardiology note for full recommendations in details, risks are nonmodifiable. Patient at elevated risk for procedure. PT and OT consults to be placed after amputation SVT, resolved Hypertension Hyperlipidemia - Continue metoprolol, will consider daily adjustments for better rate control. Heart rate normal today in the 80s. Blood pressure well-controlled at 145/76. Full code holding Xarelto pending surgery, resume post-op Diabetic diet, NPO at midnight
[2024-03-24 16:51] LABS: POC Glucose,Bedside 265 (70-110)
[2024-03-24] MEDS: PROMETHAZINE HCL 25MG/ML 1ML VIAL 12.5 MG IV (19:48)
[2024-03-24 20:00] VITALS: BP 155/77; PULSE 82; RESP 18; TEMP 36.8; O2SAT 95
[2024-03-24] MEDS: EZETIMIBE 10MG TABLET 10 MG PO (22:02)
[2024-03-24] MEDS: ATORVASTATIN 40MG TABLET 40 MG PO (22:02)
[2024-03-24] MEDS: TRAZODONE 50MG TABLET 100 MG PO (22:02)
[2024-03-25] VITALS (21 sets, daily range): BP systolic 106–159; BP diastolic 63–92; PULSE 69–110; RESP 14–18; TEMP 35.9–36.9; O2SAT 92–99; BMI 47.5
[2024-03-25] MEDS: CEFEPIME HCL 2 GM in 0.9 % SODIUM CHLORIDE 100 ML IV ×2 (01:12→18:33)
[2024-03-25] MEDS: ALPRAZolam 0.5MG TABLET 0.5 MG PO ×2 (01:13→22:08)
[2024-03-25 06:24] LABS: POC Glucose,Bedside 232 (70-110)
[2024-03-25 06:25] LABS: POC Glucose,Bedside 153 (70-110)
[2024-03-25 06:45] LABS: Basophils # 0.1 K/mm3 (0-0.2); Basophils % 0.7 % (0.1-2.0); Eosinophils # 0.4 K/mm3 (0.0-0.4); Eosinophils % 3.8 % (0.1-12.0); Hematocrit 33.6 % (37.0-47.0); Hemoglobin 10.7 g/dL (12.2-16.2); Lymphocytes # 2.1 K/mm3 (0.7-4.5); Lymphocytes % 19.1 % (10-50); Mean Corpuscular HGB Conc 31.9 g/dL (31.8-35.4); Mean Corpuscular Hemoglobin 26.7 pg (27.0-31.2); Mean Corpuscular Volume 83.7 fl (81-99); Monocytes # 0.7 K/mm3 (0.1-1.0); Monocytes % 6.7 % (1.7-9.3); Neutrophils # 7.7 K/mm3 (1.8-7.8); Neutrophils % 69.9 % (37.0-80.0); Platelet Count 318 K/mm3 (142-424); Red Blood Count 4.02 M/mm3 (4.20-5.40); Red Cell Distribution Width 17.2 % (11.5-17.5)
[2024-03-25 07:03] LABS: Alanine Aminotransferase 15 U/L (12-78); Albumin Level 2.4 g/dl (3.5-5.0); Albumin/Globulin Ratio 0.6 (1.1-1.8); Alkaline Phosphatase 88 U/L (38-126); Anion Gap 10.5 mEq/L (5-15); Aspartate Amino Transferase 23 U/L (14-36); Blood Urea Nitrogen 13 mg/dl (7-17); Calcium 8.4 mg/dl (8.4-10.2); Carbon Dioxide 23 mmol/L (22.0-30.0); Chloride 109 mmol/L (98-107); Creatinine Clearance Estimated 74 mL/min (50-200); Estimated Glomerular Filt Rate 74 ml/min (>60); GFR (African American) 90 ML/MIN (>60); Glucose 150 mg/dl (74-100); Potassium 3.5 mmoL/L (3.5-5.1); Sodium 139 mmol/L (136-145); Total Protein,Serum 6.4 g/dl (6.3-8.2)
[2024-03-25 07:15] LABS: Bilirubin,Total 0.1 mg/dl (0.2-1.3)
[2024-03-25 07:59] LABS: Magnesium 1.5 mg/dl (1.6-2.3)
--- NOTE | 2024-03-25 08:09 | EXP.ACUTE.PN ---
Subjective *Date: 03/25/24 *Time: 16:00 Interval history: Had left BKA this morning. Seen after surgery. Overall doing well. Denies any chest pain, shortness of breath, nausea, vomiting. Glucose well-controlled. No pain in left lower extremity at this time. Stable on room air. Afebrile. Medical Exam Vital signs and Labs for Last 24 Hours: Vital Signs Temp Pulse Resp BP Pulse Ox O2 Del Method 03/25/24 06:51 Room Air 03/25/24 05:00 Room Air 03/25/24 04:00 97.4 F L 69 16 141/72 H 96 Room Air 03/25/24 03:00 Room Air 03/25/24 01:00 Room Air 03/25/24 00:00 98.4 F 99 H 18 135/90 97 Room Air 03/24/24 23:00 Room Air 03/24/24 21:00 Room Air 03/24/24 20:00 Room Air 03/24/24 20:00 98.3 F 82 18 155/77 H 95 Room Air 03/24/24 18:50 Room Air 03/24/24 18:45 Room Air 03/24/24 17:00 Room Air 03/24/24 16:00 98.4 F 79 18 143/86 H 97 Room Air 03/24/24 16:00 98.4 F 79 18 143/65 H 97 Room Air 03/24/24 15:17 Room Air 03/24/24 13:00 Room Air 03/24/24 12:00 98.0 F 84 16 130/79 96 Room Air 03/24/24 11:00 Room Air 03/24/24 09:49 Room Air 03/24/24 09:37 Room Air Intake and Output 03/24/24 03/25/24 03/25/24 23:59 07:59 15:59 Intake Total 700 / 700 Output Total 725 / 3750 1750 / 1750 Balance -725 / -2575 -1050 / -1050 Intake: Intake, Total IV Amount 700 / 700 0.9 % Sodium Chloride 1000ML 1, 600 / 600 000 ml @ 50 mls/hr IV .Q20H PETE Rx#:[id number] Cefepime HCl 2 gm In 0.9 % 100 / 100 Sodium Chloride 100 ml @ 200 mls/hr IV Q8H PETE Rx#:[id number] Output: Output, Urine Amount 725 / 3750 1750 / 1750 Other: Weight 134.263 kg Patient Weight 03/25/24 23:59 Weight 134.263 kg Laboratory Results - last 24 hr 03/24/24 09:22: POC Glucose 272 H 03/24/24 11:02: POC Glucose 276 H 03/24/24 16:03: POC Glucose 265 H 03/24/24 20:53: POC Glucose 232 H 03/25/24 05:43: POC Glucose 153 H 03/25/24 05:44: WBC 11.0 H, RBC 4.02 L, Hgb 10.7 L, Hct 33.6 L, MCV 83.7, MCH 26.7 L, MCHC 31.9, RDW 17.2, Plt Count 318, MPV 9.0, Neut % (Auto) 69.9, Lymph % (Auto) 19.1, [place] % (Auto) 6.7, Eos % (Auto) 3.8, Baso % (Auto) 0.7, Neut # (Auto) 7.7, Lymph # (Auto) 2.1, [place] # (Auto) 0.7, Eos # (Auto) 0.4, Baso # (Auto) 0.1, Sodium 139, Potassium 3.5, Chloride 109 H, Carbon Dioxide 23, Anion Gap 10.5, BUN 13, Creatinine 0.80, Estimated Creat Clear 74, Estimated GFR 74, Est GFR ( Amer) 90, Glucose 150 H, Calcium 8.4, Total Bilirubin 0.1 L, AST 23 D, ALT 15, Alkaline Phosphatase 88, Total Protein 6.4, Albumin 2.4 L, Globulin 4.0 H, Albumin/Globulin Ratio 0.6 L I & O for Labs for Last 24 Hours: Intake & Output 03/22/24 03/23/24 03/24/24 03/25/24 23:59 23:59 23:59 23:59 Intake Total 1210 / 1210 990 / 990 1075 / 1175 700 / 700 Output Total 1500 / 1500 1500 / 2200 3150 / 3750 1750 / 1750 Balance -290 / -290 -510 / -1210 -2075 / -2575 -1050 / -1050 Weight 126.144 kg 133.583 kg 131.712 kg 134.263 kg Microbiology Reports for the Last 24 Hours: Microbiology 03/21/24 10:00 Leg,Left Gram Stain - Final 03/21/24 10:00 Leg,Left Wound Culture - Final Escherichia coli Constitutional: Present no acute distress, morbidly obese, chronically ill appearing and cooperative Head: Present atraumatic and normocephalic ENT: Present normal exam Neck: Present normal inspection Respiratory: Present normal respiratory effort; Absent rhonchi, wheezes or crackles Cardiac: Present Reg Rate and Rhythm GI: Present soft and normal bowel sounds; Absent distention or tenderness Extremities: Present normal inspection; Absent tenderness or edema Comment:: Right lower extremity and postop bandage status post BKA. Right lower extremity stable. Weak dorsal pedal pulses. 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: Status: Acute Category: Medical Code(s): S88.112A - Complete traumatic amputation at level between knee and ankle, left lower leg, initial encounter (4) Sepsis: Status: Resolved Qualifiers: Sepsis type: sepsis due to unspecified organism Sepsis acute organ dysfunction status: without acute organ dysfunction Qualified Code(s): A41.9 - Sepsis, unspecified organism Category: Medical Code(s): A41.9 - Sepsis, unspecified organism (5) Cellulitis of left foot: Status: Acute Category: Medical Code(s): L03.116 - Cellulitis of left lower limb (6) Type 2 diabetes mellitus with diabetic neuropathy, with long-term current use of insulin: Status: Acute Category: Medical Code(s): E11.40 - Type 2 diabetes mellitus with diabetic neuropathy, unspecified; Z79.4 - FPC (current) use of insulin (7) CAD (coronary artery disease): Status: Chronic Qualifiers: Coronary Disease-Associated Artery/Lesion type: [place] artery [place] vs. transplanted heart: [place] heart Associated angina: without angina Qualified Code(s): I25.10 - Atherosclerotic heart disease of [place] coronary artery without angina pectoris Category: Medical Code(s): I25.10 - Atherosclerotic heart disease of [place] coronary artery without angina pectoris (8) Hyperlipemia: Status: Chronic Qualifiers: Hyperlipidemia type: other hyperlipidemia Qualified Code(s): E78.49 - Other hyperlipidemia Category: Medical Code(s): E78.5 - Hyperlipidemia, unspecified (9) Essential hypertension: Status: Chronic Category: Medical Code(s): I10 - Essential (primary) hypertension (10) Diabetic foot: Status: Acute Category: Medical Code(s): E11.8 - Type 2 diabetes mellitus with unspecified complications (11) Stented coronary artery: Status: Chronic Category: Surgical Code(s): Z95.5 - Presence of coronary angioplasty implant and graft (12) Recurrent major depression resistant to treatment: Status: Acute Category: Medical Code(s): F33.9 - Major depressive disorder, recurrent, unspecified (13) 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: Status: Chronic Category: Medical Code(s): E66.2 - Morbid (severe) obesity with alveolar hypoventilation; Z68.41 - Body mass index [BMI] 40.0-44.9, adult Plan Patient is a 53-year-old female with past medical history of diabetes mellitus CAD hypertension hyperlipidemia who presented to hospital due to not feeling well, nausea vomiting shortness of breath. Patient admitted for DKA and sepsis. Anion gap is closed, currently on basal bolus regimen. Clinically stabilized. Taken for left BKA today. White cell count normal at 11. Tolerated procedure well. Continues to require inpatient management. Case management assisting with referral for rehab. Orthopedics assisting with care. Problems addressed as follows: Sepsis Gangrene of left foot stump -Orthopedics consulted, taken for BKA today. Procedure without complication. - continuing broad-spectrum antibiotics with vancomycin, cefepime, Flagyl for 48 more hours. Wound culture growing positive for E. coli -White count 11. repeat CBC, CMP, magnesium ordered for the morning. Type 2 diabetes with hyperglycemia, poorly controlled -A1c 9.6 on presentation. Initially in DKA, gap is closed. Glucose better controlled this morning at 150. -Continue high intensity sliding scale, holding scheduled dose with meals pending increase p.o. intake since she has been n.p.o. since midnight. -basal insulin to 55 units twice daily -Further adjustments pending morning glucose, goal less than 150 with morning glucose, glucose 162 this morning. Hx of CAD History of nonischemic cardiomyopathy/Takotsubo cardiomyopathy, 2020 -Cardiology consulted for preop optimization. Eleonora case this morning, recommend continuing meds as ordered. Patient high risk but benefits of surgery outweigh risks. - Stenting in Dec 2014, March 2020, Nov 2020-NICM/Takotsubo cardiomyopathy - Continue aspirin 81 mg daily, Xarelto 2.5 mg p.o. twice daily, atorvastatin 40 mg daily, Zetia 10 mg p.o. daily metoprolol 100 mg p.o. twice daily, ramipril 5 mg p.o. daily and Imdur 60 mg p.o. daily - EF recovered November 2020, Repeat echo today shows a normal EF, official read is pending -See cardiology note for full recommendations in details, risks are nonmodifiable. Patient at elevated risk for procedure. PT and OT consults to be placed after amputation SVT, resolved Hypertension Hyperlipidemia - Continue metoprolol, will consider daily adjustments for better rate control. Heart rate normal today in the 80s. Blood pressure well-controlled Full code Resume Xarelto in the morning Diabetic diet
[2024-03-25] MEDS: DULOXETINE 30MG CAPSULE.DR 60 MG PO (08:48)
[2024-03-25] MEDS: ISOSORBIDE MONO 60MG TAB.ER.24H 60 MG PO (08:49)
[2024-03-25] MEDS: SPIRONOLACTONE 25MG TABLET 25 MG PO (08:49)
[2024-03-25] MEDS: METOPROLOL TARTRATE 50MG TABLET 100 MG PO ×2 (08:49→20:51)
[2024-03-25] MEDS: metroNIDAZOLE 500 MG TABLET PO ×3 (08:49→20:52)
[2024-03-25] MEDS: DAPAGLIFLOZIN PROPANEDIOL 10 MG TABLET PO (08:49)
[2024-03-25] MEDS: PROMETHAZINE HCL 25MG/ML 1ML VIAL 12.5 MG IV (08:51)
--- NOTE | 2024-03-25 09:33 | EXP.ANES.CKL ---
[facility] Disclaimer: The information contained in this section may have been updated after the patient was seen, as this information can be updated by other users. 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 (Updated 03/22/24 @ 14:35 by Levi Soria MD) Recurrent major depression resistant to treatment Anemia HTN (hypertension) Type 2 diabetes mellitus with diabetic neuropathy, with long-term current use of insulin Hyperlipemia CAD (coronary artery disease) Essential hypertension Vitamin D deficiency Surgical History (Updated 09/12/23 @ 00:01 by Jacob Eng) History of appendectomy History of cholecystectomy History of hysterectomy History of hand surgery History of foot surgery Social History (Updated 03/19/24 @ 15:00 by Keisha Rueda RN) Smoking Status: Former smoker smoking status stop date: 07/17/2023 second hand exposure: No alcohol intake: never counseling given: No substance use type: denies use counseling given: No current occupational status: disabled Travel in the last 8 weeks: None adopted: No caregiver/support person: No foster care: No household members: children housing: house lives independently: Yes marital status: number of children: 1 number of grandchildren: 0 education level: high school 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; 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 current occupational exposures/hazards: Yes pets and animals: Yes pets and animals: cat(s) Hx Recent Travel: No sexually active: No caffeine: Yes physical activity: none dyana/restoration: Mandaeism special dyana needs: No working smoke detector in home: Yes fire extinguisher in home: Yes carbon monox detector in home: Yes firearms in home: No do you feel safe at home: Yes victim of physical abuse: No victim of emotional abuse: No victim of sexual abuse: No would you like helpful sources: No [facility] Anesthesia Checklist Patient Identification Patient Identification: Arm Band, Family and Verbal (Name & ) Structural Data Admitted From: Inpatient (Rm [id number]) Planned Operative Procedure/s: LEFT BKA Consent for Planned Operative Procedure(s) Verified: Yes Verified Documents: Surgical Consent, History and Physical and Cardiac Clearance (By [place]anna) NPO Status Verified Time NPO: 23:30 Chart Verification Results Verified: CBC, BMP, ECG and Chest Xray Additional verifications Fingerstick Blood Glucose: 127 Patient : No Anesthesia Reactions: No Hx Blood Transfusions: No Blood Transfusion Reaction: No Cardiovascular Assessment Heart Sounds: S1 & S2 Pulse Rhythm: Irregular Peripheral Edema: Yes (3+ MG LE) Airway Assessment Mallampati Score:: Class III C-Spine Mobility Assessed: Yes (FROM) TMJ Mobility Assessed: Yes Dentition: Poor Dentition (Nothing loose per pt.) Neurological Assessment Level of Consciousness: Awake, Alert, Appropriate and Follows Commands Hx Seizures: No Numbness or tingling in extremities: Yes (MG LE) Anesthesia Plan Anesthesia Risk discussed: Yes Anesthesia Plan: Verified ASA Class: IV Anesthesia Type: General w/block (Femoral + popliteal)
[2024-03-25 09:40] LABS: POC Glucose,Bedside 127 (70-110)
--- NOTE | 2024-03-25 14:02 | EXP.OP.NOTE ---
Date of procedure: 03/25/24 Pre-op Diagnosis:: Nonhealing diabetic ulcer left lower extremity Post-op Diagnosis:: Same Procedure performed:: Left below-knee amputation Surgeon:: Gordon Williamson DO INTERIM CONTROLLER:: Azul Escobedo Anesthesia: GETA and regional Estimated blood loss (mL): 50 Clinical Note:: 53-year-old female with a history of extensive surgery on her left lower extremity as well as history of infection of the left lower extremity presented to the hospital with symptoms of DKA but also infection of the midfoot amputation stump on the left lower extremity which was significant in regards to the amount of purulence and infection had a discussion with her regarding treatment options with continued medical treatment debridement options versus below-knee amputation given the extent of the infection and wound below-knee amputation is felt to be the most appropriate way to proceed in order to be curative for infection. Operative findings:: Healthy vascularized below-knee amputation stump without evidence of purulence and infection proximally Operative note:: Patient was identified preoperatively. Left lower extremity marked with yes my initials. Underwent a block with anesthesia. Then taken the operating room placed upon the operating bed general anesthesia administered airway secured. Tourniquet was placed on the left thigh and left lower extremity was then prepped and draped in normal sterile fashion. Once prepped and draped final operative timeout performed to identify proper patient procedure and extremity. Everyone involved the case agreed. There were no counter indications to beginning. She did receive preoperative antibiotics. Marking pen was used to make planned incisions for BKA stump with a posterior flap. Skin was marked 10 cm distal to the tibial tubercle and longitudinal incisions with a long posterior flap were drawn out. Esmarch was not used to exsanguinate extremity secondary to infection the leg was elevated and the tourniquet was inflated to 300 mmHg. Skin knife was used incise the skin anteriorly. Dissection was taken medially to identify the saphenous nerve and vein vein was ligated with a needle stitch followed by freehand silk tie stitch once doubly ligated it was cut nerve was pulled on traction and cut in the anterior wound and just attention was then brought laterally where the superficial peroneal nerve was seen and dissected and cut to allow for retraction continue dissection was taken down to the periosteum of the tibia was cleared off Hohmann retractors were placed under the tibia the Selvin was used to make a cut in the tibia proximal to the skin incision and approximately 1 cm sure that the fibula was also excised. Flap was completed both the lateral sides posteriorly and the amputation knife was used to cut directly on the posterior aspect of the tibia and fibula to protect the posterior flap. Once this was done anterior tibial vessels and deep peroneal nerve present dissected off ligated and stitch tied and freehand tied dissected off the deep layer fascia and the anterior tibial vessels were clamped and ligated I then lifted the deep posterior compartment along with the soleus for the posterior flap to make sure there was adequate coverage. Irrigation of the posterior flap to remove any bone fragments. There were some deep perforating vessels that were also clamped cauterized. The Achilles was trimmed slightly irrigation repeated tourniquet was deflated to confirm adequate hemostasis and proper clamping of vessels which was confirmed. The myodesis was then performed with 0 Vicryl stitch to the periosteum anterior tibia and the Achilles there is a good myodesis repair. 0 Vicryl stitches were then placed for the deep layers to complete coverage of the posterior flap over the tibia the tibia was not prominent not sharp it was beveled prior to the myodesis. Continued 0 Vicryl suture was closed for deep layers of the fascia 2-0 Vicryl subcutaneous. And a combination of 2-0 and 3-0 nylon in the skin in interrupted crossed fashion. Sterile dressing was placed with Xeroform 4 x 4's ABD soft roll to Cristian bandages. Knee immobilizer was placed patient waken anesthesia taken recovery in stable condition. Condition: stable Disposition: PACU Specimens:: Below-knee amputation stump Complications:: None apparent
[2024-03-25 14:17] LABS: POC Glucose,Bedside 168 (70-110)
--- NOTE | 2024-03-25 14:24 | EXP.ANES.I ---
[facility] Anesthesia Record Part I Anesthesia Record I Intake, IV Amount: 800 Hydration: Adequate Estimated blood loss (mL): 75 Urine output (mL): 150 Blood Products used (#): none Blood Pressure: 120/70 SaO2: 98 Pulse Rate: 76 Airway Patency: Patent Respiratory Rate: 16 Temperature: 96.6 F Patient is:: Awake (Talking) and Stable Stable to PACU at:: 14:05
[2024-03-25] MEDS: MAGNESIUM SULFATE IN WATER 2 GM/50 ML PIGGYBACK IV (15:31)
[2024-03-25] MEDS: PHA TO NURSING INSTRUCTION 1 EACH NOTAPPLIC (15:35)
[2024-03-25 15:50] LABS: Vancomycin,Trough 16.1 ug/mL (5.0-10.0)
--- NOTE | 2024-03-25 15:51 | EXP.ANES.II ---
[facility] Anesthesia Record Part II Anesthesia Record Part II Discharge Time: 14:30 Destination: Medical Surgical Department PACU nurse assessment reviewed?: Yes Patient Condition:: Good Anesthesia Complications:: None Swallowing reflex intact?: Yes Airway Patency: Patent Cyanosis?: No Blood Pressure: 121/68 SaO2: 99 Respiratory Rate: 16 Pulse Rate: 76 Temperature: 97 F Mental Status: Alert & Oriented Pain level:: 0 Nausea and/or vomitting:: None Intake, IV Amount: 0 Hydration: Adequate
--- NOTE | 2024-03-25 16:01 | P.CONPHA_ITS ---
Pharmacy Consult Date: 03/25/24 Time: 16:02 Referring provider: DR. AHUMADA Reason for Consult:: VANCOMYCIN LEVEL Allergies Allergy/AdvReac Type Severity Reaction Status Date / Time clopidogrel [From Plavix] Allergy Severe Hives Verified 03/20/24 07:31 amoxicillin [AMOXICILLIN] Allergy Unknown Unknown Verified 09/22/23 13:12 allergy reaction codeine [CODEINE] AdvReac Mild STOMACH Verified 09/22/23 13:12 CRAMPS morphine [MORPHINE] AdvReac Mild STOMACH Verified 09/22/23 13:12 CRAMPS oxycodone [From Percocet] AdvReac Mild STOMACH Verified 09/22/23 13:12 CRAMPS Home Medications Medication Instructions Recorded Confirmed Type aspirin 81 mg chewable tablet 81 mg PO DAILY HEART HEALTH 04/08/19 03/19/24 History ezetimibe 10 mg tablet 10 mg PO HS 03/06/20 03/19/24 History duloxetine 60 mg capsule,delayed 60 mg PO BID 07/02/20 03/19/24 History release dapagliflozin propanediol 10 mg 10 mg PO DAILY 11/01/20 03/19/24 History tablet insulin glargine 100 unit/mL (3 90 unit SQ HS 11/01/20 03/19/24 History mL) subcutaneous pen pregabalin 200 mg capsule 200 mg PO BID 12/14/20 03/19/24 History ramipril 5 mg capsule 5 mg PO DAILY 01/07/21 03/19/24 History spironolactone 25 mg tablet 25 mg PO DAILY 02/05/21 03/19/24 History rosuvastatin 20 mg tablet 20 mg PO DAILY 02/14/21 03/19/24 History trazodone 100 mg tablet 100 mg PO HS 02/14/21 03/19/24 History hydrocodone 10 mg-acetaminophen 1 tab PO Q6HP PRN Moderate Pain 07/12/23 03/19/24 History 325 mg tablet (Scale Score 5-6) rivaroxaban 2.5 mg tablet (Xarelto) 2.5 mg PO BIDWMEAL 07/12/23 03/19/24 History insulin aspart U-100 100 unit/mL 0 sliding scale dose SQ AC 03/19/24 03/19/24 History (3 mL) subcutaneous pen (Novolog FlexPen U-100 Insulin aspart) isosorbide mononitrate 60 mg 60 mg PO DAILY 03/19/24 03/19/24 History tablet,extended release 24 hr metoprolol tartrate 100 mg tablet 100 mg PO BID 03/19/24 03/19/24 History New Prescriptions to Start Prescriptions: Height: 1.68 m Weight: 134.263 kg Laboratory Results:: Laboratory Results - last 24 hr 03/24/24 16:03: POC Glucose 265 H 03/24/24 20:53: POC Glucose 232 H 03/25/24 05:43: POC Glucose 153 H 03/25/24 05:44: WBC 11.0 H, RBC 4.02 L, Hgb 10.7 L, Hct 33.6 L, MCV 83.7, MCH 26.7 L, MCHC 31.9, RDW 17.2, Plt Count 318, MPV 9.0, Neut % (Auto) 69.9, Lymph % (Auto) 19.1, [place] % (Auto) 6.7, Eos % (Auto) 3.8, Baso % (Auto) 0.7, Neut # (Auto) 7.7, Lymph # (Auto) 2.1, [place] # (Auto) 0.7, Eos # (Auto) 0.4, Baso # (Auto) 0.1, Sodium 139, Potassium 3.5, Chloride 109 H, Carbon Dioxide 23, Anion Gap 10.5, BUN 13, Creatinine 0.80, Estimated Creat Clear 74, Estimated GFR 74, Est GFR ( Amer) 90, Glucose 150 H, Calcium 8.4, Magnesium 1.5 L, Total Bilirubin 0.1 L, AST 23 D, ALT 15, Alkaline Phosphatase 88, Total Protein 6.4, Albumin 2.4 L, Globulin 4.0 H, Albumin/Globulin Ratio 0.6 L 03/25/24 09:33: POC Glucose 127 H 03/25/24 14:10: POC Glucose 168 H 03/25/24 15:00: Vancomycin Trough 16.1 H 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: 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 (Updated 03/22/24 @ 14:35 by Levi Soria MD) Recurrent major depression resistant to treatment Anemia HTN (hypertension) Type 2 diabetes mellitus with diabetic neuropathy, with long-term current use of insulin Hyperlipemia CAD (coronary artery disease) Essential hypertension Vitamin D deficiency Assessment and Plan Assessment and plan all Dx Assessment and Plan for all problems:: CHANGING VANCOMYCIN DOSE TO 2250 MG Q24H.
[2024-03-25 16:45] LABS: POC Glucose,Bedside 196 (70-110)
[2024-03-25] MEDS: humaLOG 100 UNITS/ML 3ML VIAL (SSI) SQ ×2 (16:47→20:50)
--- NOTE | 2024-03-25 18:45 | PC.NURSE ---
pt has done well this shift post op for left BKA. Reports no pain. VSS. States that her afternoon has been better than she expected it would be.
[2024-03-25 20:12] LABS: POC Glucose,Bedside 341 (70-110)
[2024-03-25] MEDS: VANCOMYCIN HCL 2,250 MG in 0.9 % SODIUM CHLORIDE 250 ML 125 MG IV (20:49)
[2024-03-25] MEDS: INSULIN GLARGINE 100 UNITS/ML 3ML FLEXPEN 55 UNIT SQ (20:50)
[2024-03-25] MEDS: PREGABALIN 100MG CAPSULE 200 MG PO (20:51)
[2024-03-25] MEDS: EZETIMIBE 10MG TABLET 10 MG PO (20:51)
[2024-03-25] MEDS: TRAZODONE 50MG TABLET 100 MG PO (20:51)
[2024-03-25] MEDS: ATORVASTATIN 40MG TABLET 40 MG PO (20:52)
--- NOTE | 2024-03-25 22:24 | PC.NURSE ---
pt. requested idnh catheter to be removed due to irritation, FIRE EXTING[employer] INST[employer]ER notified and stated to remove and place purwick, dinh removed at this time, purwick in place.
[2024-03-26] VITALS (7 sets, daily range): BP systolic 106–146; BP diastolic 60–90; PULSE 68–106; RESP 16–20; TEMP 36.5–36.9; O2SAT 92–97; BMI 48.4
[2024-03-26] MEDS: HYDROCODONE 10MG/APAP 325MG TAB 1 TAB PO ×2 (00:19→06:26)
[2024-03-26] MEDS: CEFEPIME HCL 2 GM in 0.9 % SODIUM CHLORIDE 100 ML IV ×3 (02:54→18:30)
[2024-03-26] MEDS: HYDROMORPHONE 2MG/ML SYRINGE 1 MG IV ×5 (03:07→20:19)
[2024-03-26] MEDS: 0.9 % SODIUM CHLORIDE 1000ML 1,000 ML 50 ML IV (04:47)
--- NOTE | 2024-03-26 05:03 | PC.NURSE ---
pt A&OX4, restless this shift, c/o pain X2 medicated per mar, dressing and brace noted to LLE, call button in place
[2024-03-26 06:24] LABS: POC Glucose,Bedside 226 (70-110)
[2024-03-26] MEDS: humaLOG 100 UNITS/ML 3ML VIAL (SSI) 10 UNIT SQ ×3 (06:26→16:19)
[2024-03-26] MEDS: humaLOG 100 UNITS/ML 3ML VIAL (SSI) SQ ×4 (06:27→20:22)
[2024-03-26 06:52] LABS: Basophils # 0.1 K/mm3 (0-0.2); Basophils % 0.3 % (0.1-2.0); Eosinophils # 0.1 K/mm3 (0.0-0.4); Eosinophils % 0.7 % (0.1-12.0); Hemoglobin 10.7 g/dL (12.2-16.2); Lymphocytes # 2.6 K/mm3 (0.7-4.5); Lymphocytes % 15.5 % (10-50); Mean Corpuscular HGB Conc 31.4 g/dL (31.8-35.4); Mean Corpuscular Hemoglobin 26.7 pg (27.0-31.2); Mean Corpuscular Volume 84.9 fl (81-99); Mean Platelet Volume 8.8 fl (7.4-10.4); Monocytes # 1.1 K/mm3 (0.1-1.0); Monocytes % 6.5 % (1.7-9.3); Neutrophils # 12.8 K/mm3 (1.8-7.8); Platelet Count 354 K/mm3 (142-424); Red Cell Distribution Width 17.2 % (11.5-17.5); White Blood Count 16.7 K/mm3 (4.8-10.8)
[2024-03-26 06:58] LABS: MANUAL DIFFERENTIAL MANUAL DIFFERENTIAL (MANUAL DIFF)
[2024-03-26 07:09] LABS: Alanine Aminotransferase 21 U/L (12-78); Albumin Level 2.6 g/dl (3.5-5.0); Albumin/Globulin Ratio 0.7 (1.1-1.8); Alkaline Phosphatase 87 U/L (38-126); Aspartate Amino Transferase 36 U/L (14-36); Bilirubin,Total 0.2 mg/dl (0.2-1.3); Blood Urea Nitrogen 17 mg/dl (7-17); Calcium 8.2 mg/dl (8.4-10.2); Chloride 106 mmol/L (98-107); Creatinine Clearance Estimated 60 mL/min (50-200); Estimated Glomerular Filt Rate 58 ml/min (>60); GFR (African American) 70 ML/MIN (>60); Globulin 3.8 g/dL (1.3-3.2); Glucose 232 mg/dl (74-100); Magnesium 1.9 mg/dl (1.6-2.3); Sodium 137 mmol/L (136-145); Total Protein,Serum 6.4 g/dl (6.3-8.2)
[2024-03-26 07:22] LABS: Potassium 3.9 mmoL/L (3.5-5.1)
[2024-03-26 07:25] LABS: Lymphocytes % 17 % (10-50); Monocytes % 7 % (2-9); Neutrophils % 76 % (42-76); Total Cells Counted 100
[2024-03-26 07:26] LABS: Platelet Estimate Normal; RBC Morphology Normal
[2024-03-26 07:34] LABS: Anion Gap 10.9 mEq/L (5-15); Carbon Dioxide 24 mmol/L (22.0-30.0)
[2024-03-26] MEDS: metroNIDAZOLE 500 MG TABLET PO ×3 (08:31→20:22)
[2024-03-26] MEDS: SPIRONOLACTONE 25MG TABLET 25 MG PO (08:31)
[2024-03-26] MEDS: PREGABALIN 100MG CAPSULE 200 MG PO ×2 (08:31→20:22)
[2024-03-26] MEDS: DULOXETINE 30MG CAPSULE.DR 60 MG PO (08:31)
[2024-03-26] MEDS: ISOSORBIDE MONO 60MG TAB.ER.24H 60 MG PO (08:31)
[2024-03-26] MEDS: METOPROLOL TARTRATE 50MG TABLET 100 MG PO (08:31)
[2024-03-26] MEDS: ASPIRIN 81MG CHEWABLE TABLET 81 MG PO (08:31)
[2024-03-26] MEDS: DAPAGLIFLOZIN PROPANEDIOL 10 MG TABLET PO (08:31)
[2024-03-26] MEDS: INSULIN GLARGINE 100 UNITS/ML 3ML FLEXPEN 55 UNIT SQ ×2 (08:32→20:21)
[2024-03-26] MEDS: ACETAMINOPHEN 325MG TAB 650 MG PO (10:04)
--- NOTE | 2024-03-26 10:15 | EXP.ORTH.CON ---
History of Present Illness *Admission Date: 03/19/24 *Reason for visit:: s/p Kwasi FORD 03/25/24 *History of present illness: 53-year-old female with a very long complicated history of left lower extremity surgeries related to diabetes. I reviewed her entire surgical history in her left lower extremity which is extensive. 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 She presented to the hospital with symptoms of DKA. Subsequently evaluation of the left lower extremity revealed infection of the partial amputation stump in the left lower extremity. She has a long history of procedures with podiatry here but also recently in [place]. She has seen Dr. Greco who is a vascular surgeon who initially suggested she should have a below-knee amputation. However they proceeded with local wound treatment and initially was able to avoid any amputation discussion. However over the last month and specifically last 2 weeks it has been worse on the left lower extremity. She does not have sensation in this area but has noticed that she is decompensated in regards to redness and infection. I was consulted regarding treatment options for the left lower extremity. 03/26/24: Patient doing well overall. States that her block wore off at 3:00 in the morning, and her pain has not been well-controlled since then. She states that pain meds wear off several hours before they are due again, and she has been using her IV breakthrough Dilaudid more often. She states that she has a sensation of phantom pain in her ankle that shoots up into her stump. She has been eating a regular diet, but has not gotten up out of bed yet. She would like to do that today. [facility] Disclaimer: The information contained in this section may have been updated after the patient was seen, as this information can be updated by other users. 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 (Updated 03/26/24 @ 10:25 by ANNA Villarreal) Recurrent major depression resistant to treatment Anemia HTN (hypertension) Type 2 diabetes mellitus with diabetic neuropathy, with long-term current use of insulin Hyperlipemia CAD (coronary artery disease) Essential hypertension Vitamin D deficiency Surgical History (Updated 09/12/23 @ 00:01 by Jacob Eng) History of appendectomy History of cholecystectomy History of hysterectomy History of hand surgery History of foot surgery Social History (Updated 03/19/24 @ 15:00 by Keisha Foster, RN) Smoking Status: Former smoker smoking status stop date: 07/17/2023 second hand exposure: No alcohol intake: never counseling given: No substance use type: denies use counseling given: No current occupational status: disabled Travel in the last 8 weeks: None adopted: No caregiver/support person: No foster care: No household members: children housing: house lives independently: Yes marital status: number of children: 1 number of grandchildren: 0 education level: high school 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; 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 current occupational exposures/hazards: Yes pets and animals: Yes pets and animals: cat(s) Hx Recent Travel: No sexually active: No caffeine: Yes physical activity: none dyana/uatsdin: Mandaen special dyana needs: No working smoke detector in home: Yes fire extinguisher in home: Yes carbon monox detector in home: Yes firearms in home: No do you feel safe at home: Yes victim of physical abuse: No victim of emotional abuse: No victim of sexual abuse: No would you like helpful sources: No Meds Home Medications and Allergies Home Medications Medication Instructions Recorded Confirmed Type aspirin 81 mg chewable tablet 81 mg PO DAILY HEART HEALTH 04/08/19 03/19/24 History ezetimibe 10 mg tablet 10 mg PO HS 03/06/20 03/19/24 History duloxetine 60 mg capsule,delayed 60 mg PO BID 07/02/20 03/19/24 History release dapagliflozin propanediol 10 mg 10 mg PO DAILY 11/01/20 03/19/24 History tablet insulin glargine 100 unit/mL (3 90 unit SQ HS 11/01/20 03/19/24 History mL) subcutaneous pen pregabalin 200 mg capsule 200 mg PO BID 12/14/20 03/19/24 History ramipril 5 mg capsule 5 mg PO DAILY 01/07/21 03/19/24 History spironolactone 25 mg tablet 25 mg PO DAILY 02/05/21 03/19/24 History rosuvastatin 20 mg tablet 20 mg PO DAILY 02/14/21 03/19/24 History trazodone 100 mg tablet 100 mg PO HS 02/14/21 03/19/24 History hydrocodone 10 mg-acetaminophen 1 tab PO Q6HP PRN Moderate Pain 07/12/23 03/19/24 History 325 mg tablet (Scale Score 5-6) rivaroxaban 2.5 mg tablet (Xarelto) 2.5 mg PO BIDWMEAL 07/12/23 03/19/24 History insulin aspart U-100 100 unit/mL 0 sliding scale dose SQ AC 03/19/24 03/19/24 History (3 mL) subcutaneous pen (Novolog FlexPen U-100 Insulin aspart) isosorbide mononitrate 60 mg 60 mg PO DAILY 03/19/24 03/19/24 History tablet,extended release 24 hr metoprolol tartrate 100 mg tablet 100 mg PO BID 03/19/24 03/19/24 History New Prescriptions to Start Prescriptions: Allergies Allergy/AdvReac Type Severity Reaction Status Date / Time clopidogrel [From Plavix] Allergy Severe Hives Verified 03/20/24 07:31 amoxicillin [AMOXICILLIN] Allergy Unknown Unknown Verified 09/22/23 13:12 allergy reaction codeine [CODEINE] AdvReac Mild STOMACH Verified 09/22/23 13:12 CRAMPS morphine [MORPHINE] AdvReac Mild STOMACH Verified 09/22/23 13:12 CRAMPS oxycodone [From Percocet] AdvReac Mild STOMACH Verified 09/22/23 13:12 CRAMPS Ortho Exam (Inpt) Vital signs and Labs for Last 24 Hours: Temp Pulse Resp BP Pulse Ox O2 Del Method O2 Flow Rate 97.7 F 97 H 20 146/90 H 97 Room Air 1 03/26/24 07:36 03/26/24 07:36 03/26/24 07:36 03/26/24 07:36 03/26/24 07:36 03/26/24 07:36 03/19/24 17:00 Laboratory Results - last 24 hr 03/25/24 14:10: POC Glucose 168 H 03/25/24 15:00: Vancomycin Trough 16.1 H 03/25/24 16:25: POC Glucose 196 H 03/25/24 19:55: POC Glucose 341 H* 03/26/24 06:09: POC Glucose 226 H 03/26/24 06:20: WBC 16.7 H D, RBC 4.00 L, Hgb 10.7 L, Hct 34.0 L, MCV 84.9, MCH 26.7 L, MCHC 31.4 L, RDW 17.2, Plt Count 354, MPV 8.8, Neut % (Auto) 77.0, Lymph % (Auto) 15.5, [place] % (Auto) 6.5, Eos % (Auto) 0.7, Baso % (Auto) 0.3, Neut # (Auto) 12.8 H, Lymph # (Auto) 2.6, [place] # (Auto) 1.1 H, Eos # (Auto) 0.1, Baso # (Auto) 0.1, Total Counted 100, Neutrophils % (Manual) 76, Lymphocytes % (Manual) 17, Monocytes % (Manual) 7, Platelet Estimate Normal, RBC Morphology Normal, Sodium 137, Potassium 3.9, Chloride 106, Carbon Dioxide 24, Anion Gap 10.9, BUN 17 D, Creatinine 1.00 D, Estimated Creat Clear 60, Estimated GFR 58 L, Est GFR ( Amer) 70 D, Glucose 232 H, Calcium 8.2 L, Magnesium 1.9 D, Total Bilirubin 0.2, AST 36 D, ALT 21 D, Alkaline Phosphatase 87, Total Protein 6.4, Albumin 2.6 L, Globulin 3.8 H, Albumin/Globulin Ratio 0.7 L I & O for Labs for Last 24 Hours: Intake & Output 03/23/24 03/24/24 03/25/24 03/26/24 23:59 23:59 23:59 23:59 Intake Total 990 / 990 1075 / 1175 1740 / 1990 670 / 670 Output Total 1500 / 2200 3150 / 3750 3375 / 3375 600 / 600 Balance -510 / -1210 -2075 / -2575 -1635 / -1385 70 / 70 Weight 133.583 kg 131.712 kg 134.263 kg 136.894 kg Comment:: Left lower extremity: Dressing is clean dry and intact at stump, with knee immobilizer in place and fitted correctly. Sensation is intact at distal stump. Results Labs 03/26/24 06:20 03/26/24 06:20 Labs: Abnormal lab results 03/25/24 03/25/24 03/25/24 Range/Units 14:10 15:00 16:25 WBC (4.8-10.8) K/mm3 RBC (4.20-5.40) M/mm3 Hgb (12.2-16.2) g/dL Hct (37.0-47.0) % MCH (27.0-31.2) pg MCHC (31.8-35.4) g/dL Neut # (Auto) (1.8-7.8) K/mm3 [place] # (Auto) (0.1-1.0) K/mm3 Estimated GFR (>60) ml/min Glucose (74-100) mg/dl POC Glucose 168 H 196 H (70-110) Calcium (8.4-10.2) mg/dl Albumin (3.5-5.0) g/dl Globulin (1.3-3.2) g/dL Albumin/Globulin Ratio (1.1-1.8) Vancomycin Trough 16.1 H (5.0-10.0) ug/mL 03/25/24 03/26/24 03/26/24 Range/Units 19:55 06:09 06:20 WBC 16.7 H D (4.8-10.8) K/mm3 RBC 4.00 L (4.20-5.40) M/mm3 Hgb 10.7 L (12.2-16.2) g/dL Hct 34.0 L (37.0-47.0) % MCH 26.7 L (27.0-31.2) pg MCHC 31.4 L (31.8-35.4) g/dL Neut # (Auto) 12.8 H (1.8-7.8) K/mm3 [place] # (Auto) 1.1 H (0.1-1.0) K/mm3 Estimated GFR 58 L (>60) ml/min Glucose 232 H (74-100) mg/dl POC Glucose 341 H* 226 H (70-110) Calcium 8.2 L (8.4-10.2) mg/dl Albumin 2.6 L (3.5-5.0) g/dl Globulin 3.8 H (1.3-3.2) g/dL Albumin/Globulin Ratio 0.7 L (1.1-1.8) Vancomycin Trough (5.0-10.0) ug/mL H & H 03/19/24 03/20/24 03/21/24 Range/Units 10:25 06:15 05:50 Hgb 13.3 12.9 12.5 (12.2-16.2) g/dL Hct 43.1 41.5 39.4 (37.0-47.0) % 03/22/24 03/23/24 03/24/24 Range/Units 06:15 05:11 05:28 Hgb 11.8 L 11.3 L 11.3 L (12.2-16.2) g/dL Hct 37.6 36.8 L 36.0 L (37.0-47.0) % 03/25/24 03/26/24 Range/Units 05:44 06:20 Hgb 10.7 L 10.7 L (12.2-16.2) g/dL Hct 33.6 L 34.0 L (37.0-47.0) % All other labs normal. 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 Soria, and we changed her pain protocol to oxycodone 10 mg every 4 hours as needed with Tylenol 1000 mg every 6 hours scheduled [id number]. She still has her IV Dilaudid as needed for breakthrough. We also discussed that she should get out of bed, either with nursing or physical therapy assistance, today. She will continue with a diabetic diet. Insulin sliding scale to preferably keep sugars under 200 at all times, per medical team. We will start heparin subcu for DVT prophylaxis tonight 5000 mg every 12 hours. She will restart her home Xarelto starting Thursday. Dressing should be reinforced by nursing as needed for drainage, but not removed on the floor. We will continue to follow.
--- NOTE | 2024-03-26 11:17 | EXP.ACUTE.PN ---
Subjective *Date: 03/26/24 *Time: 11:17 Interval history: Did well overnight, developed pain about 3 or 4 in the morning. Denies any chest pain or shortness of breath. Stable on room air. Afebrile. No nausea or vomiting. In good spirits this morning. Medical Exam Vital signs and Labs for Last 24 Hours: Vital Signs Temp Pulse Pulse Resp BP BP Pulse Ox 03/26/24 09:00 03/26/24 08:30 03/26/24 07:36 97.7 F 97 H 20 146/90 H 97 03/26/24 07:00 03/26/24 05:00 03/26/24 04:00 98.1 F 98 H 16 125/75 94 L 03/26/24 03:00 03/26/24 01:00 03/26/24 00:00 98.1 F 106 H 18 137/82 95 03/25/24 23:00 03/25/24 21:30 110 H 16 156/85 H 96 03/25/24 21:00 03/25/24 20:30 90 14 152/80 H 96 03/25/24 20:00 03/25/24 19:30 98.5 F 85 15 159/89 H 96 03/25/24 18:30 86 18 125/63 98 03/25/24 17:30 83 16 127/71 98 03/25/24 17:00 77 16 126/63 97 03/25/24 17:00 03/25/24 16:30 78 18 120/63 97 03/25/24 16:00 75 16 117/63 98 03/25/24 15:54 16 03/25/24 15:30 101 H 18 106/83 L 97 03/25/24 15:15 98.0 F 75 18 131/90 95 03/25/24 15:00 75 16 141/75 H 96 03/25/24 15:00 03/25/24 14:45 97.9 F 78 16 121/92 H 92 L 03/25/24 14:30 97 F L 76 16 121/68 99 03/25/24 14:26 96.6 F L 76 16 120/70 03/25/24 14:20 97 F L 77 16 132/69 99 03/25/24 14:10 97 F L 80 16 135/75 98 03/25/24 14:00 97 F L 78 16 131/71 99 O2 Del Method 03/26/24 09:00 Room Air 03/26/24 08:30 Room Air 03/26/24 07:36 Room Air 03/26/24 07:00 Room Air 03/26/24 05:00 Room Air 03/26/24 04:00 Room Air 03/26/24 03:00 Room Air 03/26/24 01:00 Room Air 03/26/24 00:00 Room Air 03/25/24 23:00 Room Air 03/25/24 21:30 Room Air 03/25/24 21:00 Room Air 03/25/24 20:30 Room Air 03/25/24 20:00 Room Air 03/25/24 19:30 Room Air 03/25/24 18:30 Room Air 03/25/24 17:30 Room Air 03/25/24 17:00 Room Air 03/25/24 17:00 Room Air 03/25/24 16:30 Room Air 03/25/24 16:00 Room Air 03/25/24 15:54 03/25/24 15:30 Room Air 03/25/24 15:15 Room Air 03/25/24 15:00 Room Air 03/25/24 15:00 Room Air 03/25/24 14:45 Room Air 03/25/24 14:30 Room Air 03/25/24 14:26 03/25/24 14:20 Room Air 03/25/24 14:10 Room Air 03/25/24 14:00 Room Air Intake and Output 03/25/24 03/26/24 03/26/24 23:59 07:59 15:59 Intake Total 1989 670 / 670 Output Total 1625 / 3375 600 / 600 Balance -1385 / -1385 70 / 70 Intake: Intake, Oral Amount 240 / 240 420 / 420 Intake, Total IV Amount 250 / 250 Vancomycin HCl 2,250 mg In 0.9 250 / 250 % Sodium Chloride 250 ml @ 125 mls/hr IV Q24H [facility] Rx#:[id number] Output: Output, Urine Amount 1625 / 3375 600 / 600 Other: Number of Voids 0 Number of Unmeasured Voids 0 0 Weight 134.263 kg 136.894 kg Patient Weight 03/26/24 23:59 Weight 136.894 kg Laboratory Results - last 24 hr 03/25/24 14:10: POC Glucose 168 H 03/25/24 15:00: Vancomycin Trough 16.1 H 03/25/24 16:25: POC Glucose 196 H 03/25/24 19:55: POC Glucose 341 H* 03/26/24 06:09: POC Glucose 226 H 03/26/24 06:20: WBC 16.7 H D, RBC 4.00 L, Hgb 10.7 L, Hct 34.0 L, MCV 84.9, MCH 26.7 L, MCHC 31.4 L, RDW 17.2, Plt Count 354, MPV 8.8, Neut % (Auto) 77.0, Lymph % (Auto) 15.5, [place] % (Auto) 6.5, Eos % (Auto) 0.7, Baso % (Auto) 0.3, Neut # (Auto) 12.8 H, Lymph # (Auto) 2.6, [place] # (Auto) 1.1 H, Eos # (Auto) 0.1, Baso # (Auto) 0.1, Total Counted 100, Neutrophils % (Manual) 76, Lymphocytes % (Manual) 17, Monocytes % (Manual) 7, Platelet Estimate Normal, RBC Morphology Normal, Sodium 137, Potassium 3.9, Chloride 106, Carbon Dioxide 24, Anion Gap 10.9, BUN 17 D, Creatinine 1.00 D, Estimated Creat Clear 60, Estimated GFR 58 L, Est GFR ( Amer) 70 D, Glucose 232 H, Calcium 8.2 L, Magnesium 1.9 D, Total Bilirubin 0.2, AST 36 D, ALT 21 D, Alkaline Phosphatase 87, Total Protein 6.4, Albumin 2.6 L, Globulin 3.8 H, Albumin/Globulin Ratio 0.7 L I & O for Labs for Last 24 Hours: Intake & Output 03/23/24 03/24/24 03/25/24 03/26/24 23:59 23:59 23:59 23:59 Intake Total 990 / 990 1075 / 1175 1739 / 1990 670 / 670 Output Total 1500 / 2200 3150 / 3750 3375 / 3375 600 / 600 Balance -510 / -1210 -2075 / -2575 -1635 / -1385 70 / 70 Weight 133.583 kg 131.712 kg 134.263 kg 136.894 kg Constitutional: Present no acute distress, morbidly obese, chronically ill appearing and cooperative Head: Present atraumatic and normocephalic ENT: Present normal exam Neck: Present normal inspection Respiratory: Present normal respiratory effort; Absent rhonchi, wheezes or crackles Cardiac: Present Reg Rate and Rhythm GI: Present soft and normal bowel sounds; Absent distention or tenderness Extremities: Present normal inspection; Absent tenderness or edema Comment:: Right lower extremity and postop bandage status post BKA. Right lower extremity stable. Weak dorsal pedal pulses. 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: Status: Acute Qualifiers: Encounter type: initial encounter Qualified Code(s): S88.112A - Complete traumatic amputation at level between knee and ankle, left lower leg, initial encounter Category: Medical Code(s): S88.112A - Complete traumatic amputation at level between knee and ankle, left lower leg, initial encounter (4) Sepsis: Status: Resolved Qualifiers: Sepsis type: sepsis due to unspecified organism Sepsis acute organ dysfunction status: without acute organ dysfunction Qualified Code(s): A41.9 - Sepsis, unspecified organism Category: Medical Code(s): A41.9 - Sepsis, unspecified organism (5) Cellulitis of left foot: Status: Acute Category: Medical Code(s): L03.116 - Cellulitis of left lower limb (6) Type 2 diabetes mellitus with diabetic neuropathy, with long-term current use of insulin: Status: Acute Category: Medical Code(s): E11.40 - Type 2 diabetes mellitus with diabetic neuropathy, unspecified; Z79.4 - [facility] (current) use of insulin (7) CAD (coronary artery disease): Status: Chronic Qualifiers: Coronary Disease-Associated Artery/Lesion type: [place] artery [place] vs. transplanted heart: [place] heart Associated angina: without angina Qualified Code(s): I25.10 - Atherosclerotic heart disease of [place] coronary artery without angina pectoris Category: Medical Code(s): I25.10 - Atherosclerotic heart disease of [place] coronary artery without angina pectoris (8) Hyperlipemia: Status: Chronic Qualifiers: Hyperlipidemia type: other hyperlipidemia Qualified Code(s): E78.49 - Other hyperlipidemia Category: Medical Code(s): E78.5 - Hyperlipidemia, unspecified (9) Essential hypertension: Status: Chronic Category: Medical Code(s): I10 - Essential (primary) hypertension (10) Diabetic foot: Status: Acute Category: Medical Code(s): E11.8 - Type 2 diabetes mellitus with unspecified complications (11) Stented coronary artery: Status: Chronic Category: Surgical Code(s): Z95.5 - Presence of coronary angioplasty implant and graft (12) Recurrent major depression resistant to treatment: Status: Acute Category: Medical Code(s): F33.9 - Major depressive disorder, recurrent, unspecified (13) 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: Status: Chronic Category: Medical Code(s): E66.2 - Morbid (severe) obesity with alveolar hypoventilation; Z68.41 - Body mass index [BMI] 40.0-44.9, adult Plan Patient is a 53-year-old female with past medical history of diabetes mellitus CAD hypertension hyperlipidemia who presented to hospital due to not feeling well, nausea vomiting shortness of breath. Patient admitted for DKA and sepsis. Due to infection in leg, orthopedics was consulted and patient was taken for left BKA on 03/25/2024. Tolerated procedure well. Hemodynamically stable. Having pain overnight. Continues to require inpatient management. Will need placement for rehab when stable to discharge. Problems addressed as follows: Sepsis Gangrene of left foot stump Status post left BKA 03/25/2024 -Orthopedics consulted, appreciate their assistance in care. Discussed case this morning. Will continue broad-spectrum antibiotics for 48 hours after surgery. White cell count elevated today, likely secondary to reactive process postsurgery. Elevated at 16.7. Repeat CBC, CMP, magnesium ordered for the morning -Adjusting pain regimen to oxycodone 10 mg every 4 hours as needed, Tylenol 1000 mg scheduled every 6 hours. Hydromorphone IV 1 mg as needed every 4 hours for severe breakthrough pain. Monitor for toxicity. Will adjust pain meds daily. Type 2 diabetes with hyperglycemia, poorly controlled -A1c 9.6 on presentation. Initially in DKA, gap is closed. Glucose better controlled this morning at 150. -Continue high intensity sliding scale, continue 10 units scheduled plus sliding scale with meals. Glucose control goal less than 200 at all times. -basal insulin to 55 units twice daily -Further adjustments pending morning glucose, goal less than 150 with morning glucose, glucose 232 this morning. Hx of CAD History of nonischemic cardiomyopathy/Takotsubo cardiomyopathy, 2020 -Cardiology consulted for preop optimization. Eleonora case this morning, recommend continuing meds as ordered. Patient high risk but benefits of surgery outweigh risks. - Stenting in Dec 2014, March 2020, Nov 2020-NICM/Takotsubo cardiomyopathy - Continue aspirin 81 mg daily, Xarelto 2.5 mg p.o. twice daily, atorvastatin 40 mg daily, Zetia 10 mg p.o. daily metoprolol 100 mg p.o. twice daily, ramipril 5 mg p.o. daily and Imdur 60 mg p.o. daily - EF recovered November 2020, Repeat echo today shows a normal EF, official read is pending -See cardiology note for full recommendations in details, risks are nonmodifiable. Patient at elevated risk for procedure. PT and OT consulted, working with her daily, will need placement for rehab SVT, resolved Hypertension Hyperlipidemia - Continue metoprolol, will consider daily adjustments for better rate control. Heart rate normal today in the 80s. Blood pressure well-controlled Full code Heparin 5000 units twice daily subcu, on Xarelto for peripheral artery disease. Holding at this time. diabetic diet
[2024-03-26] MEDS: OXYCODONE 5MG IMMEDIATE RELEASE TABLET 10 MG PO ×2 (12:02→16:23)
[2024-03-26 12:27] LABS: POC Glucose,Bedside 273 (70-110)
[2024-03-26] MEDS: ACETAMINOPHEN 500MG TAB 1000 MG PO ×2 (16:18→23:00)
[2024-03-26] MEDS: HEPARIN SODIUM 5,000 UNIT/ML VIAL 5000 UNIT SQ (20:21)
[2024-03-26] MEDS: VANCOMYCIN HCL 2,250 MG in 0.9 % SODIUM CHLORIDE 250 ML 125 MG IV (20:21)
[2024-03-26] MEDS: EZETIMIBE 10MG TABLET 10 MG PO (20:22)
[2024-03-26] MEDS: TRAZODONE 50MG TABLET 100 MG PO (20:22)
[2024-03-26] MEDS: ATORVASTATIN 40MG TABLET 40 MG PO (20:22)
[2024-03-27] MEDS: CEFEPIME HCL 2 GM in 0.9 % SODIUM CHLORIDE 100 ML IV ×2 (02:04→13:11)
[2024-03-27] MEDS: OXYCODONE 5MG IMMEDIATE RELEASE TABLET 10 MG PO ×5 (02:06→21:46)
[2024-03-27 03:04] LABS: POC Glucose,Bedside 189 (70-110)
[2024-03-27 04:00] VITALS: BP 120/77; PULSE 95; RESP 16; TEMP 36.5; O2SAT 95; BMI 48.3
[2024-03-27] MEDS: ACETAMINOPHEN 500MG TAB 1000 MG PO ×4 (04:02→21:44)
[2024-03-27] MEDS: HYDROMORPHONE 2MG/ML SYRINGE 1 MG IV ×2 (04:24→08:37)
--- NOTE | 2024-03-27 04:51 | PC.NURSE ---
Pt is alert and oriented. Complained of pain, treated per mar. Pt has had no other complaints. IV fluids and antibiotics given per order. L BKA, dressing and brace in place, CDI. Purewick in place. Call light in reach.
[2024-03-27] MEDS: humaLOG 100 UNITS/ML 3ML VIAL (SSI) 10 UNIT SQ (06:16)
[2024-03-27] MEDS: 0.9 % SODIUM CHLORIDE 1000ML 1,000 ML 50 ML IV (06:25)
[2024-03-27 07:00] LABS: Alanine Aminotransferase 22 U/L (12-78); Albumin Level 2.8 g/dl (3.5-5.0); Albumin/Globulin Ratio 0.7 (1.1-1.8); Alkaline Phosphatase 90 U/L (38-126); Anion Gap 10.9 mEq/L (5-15); Aspartate Amino Transferase 32 U/L (14-36); Bilirubin,Total 0.3 mg/dl (0.2-1.3); Blood Urea Nitrogen 22 mg/dl (7-17); Calcium 8.4 mg/dl (8.4-10.2); Carbon Dioxide 23 mmol/L (22.0-30.0); Chloride 108 mmol/L (98-107); Creatinine Clearance Estimated 43 mL/min (50-200); Estimated Glomerular Filt Rate 39 ml/min (>60); GFR (African American) 47 ML/MIN (>60); Glucose 154 mg/dl (74-100); Magnesium 1.8 mg/dl (1.6-2.3); Potassium 3.9 mmoL/L (3.5-5.1); Sodium 138 mmol/L (136-145); Total Protein,Serum 6.8 g/dl (6.3-8.2)
[2024-03-27 07:17] LABS: Basophils # 0.2 K/mm3 (0-0.2); Eosinophils # 0.4 K/mm3 (0.0-0.4); Eosinophils % 2.5 % (0.1-12.0); Hematocrit 35.4 % (37.0-47.0); Hemoglobin 10.6 g/dL (12.2-16.2); Lymphocytes # 2.8 K/mm3 (0.7-4.5); Lymphocytes % 19.1 % (10-50); Mean Corpuscular HGB Conc 29.9 g/dL (31.8-35.4); Mean Corpuscular Hemoglobin 26.3 pg (27.0-31.2); Mean Corpuscular Volume 87.9 fl (81-99); Mean Platelet Volume 9.2 fl (7.4-10.4); Monocytes # 0.9 K/mm3 (0.1-1.0); Monocytes % 6.4 % (1.7-9.3); Neutrophils # 10.4 K/mm3 (1.8-7.8); Platelet Count 351 K/mm3 (142-424); Red Blood Count 4.03 M/mm3 (4.20-5.40); Red Cell Distribution Width 17.3 % (11.5-17.5); White Blood Count 14.6 K/mm3 (4.8-10.8)
[2024-03-27 08:00] VITALS: BP 108/78; PULSE 96; RESP 20; TEMP 36.3; O2SAT 94
[2024-03-27] MEDS: ALPRAZolam 0.5MG TABLET 0.5 MG PO (08:05)
--- NOTE | 2024-03-27 08:10 | EXP.ACUTE.PN ---
Subjective *Date: 03/27/24 *Time: 11:04 Interval history: Patient did well overnight without any nausea, vomiting, shortness of breath or chest pain. Pain very well-controlled. Has been taking IV and oral meds essentially scheduled. Sleepy on exam this morning. Discussed adjustments to pain regimen today will discontinue IV Dilaudid due to oversedation. Labs reviewed. Tolerating p.o. intake. Up to chair yesterday. Therapy working with her daily Medical Exam Vital signs and Labs for Last 24 Hours: Vital Signs Temp Pulse Resp BP Pulse Ox O2 Del Method 03/27/24 07:00 Room Air 03/27/24 04:55 Room Air 03/27/24 04:00 97.7 F 95 H 16 120/77 95 Room Air 03/27/24 03:00 Room Air 03/27/24 01:00 Room Air 03/26/24 23:58 98.4 F 72 16 123/71 92 L Room Air 03/26/24 23:00 Room Air 03/26/24 21:00 Room Air 03/26/24 20:00 Room Air 03/26/24 19:39 98.5 F 69 16 106/65 L 94 L Room Air 03/26/24 18:46 Room Air 03/26/24 17:00 Room Air 03/26/24 16:00 98 F 68 19 136/60 94 L Room Air 03/26/24 15:00 Room Air 03/26/24 13:00 Room Air 03/26/24 12:00 97.7 F 93 H 18 118/81 94 L Room Air 03/26/24 11:00 Room Air 03/26/24 09:00 Room Air 03/26/24 08:30 Room Air Intake and Output 03/26/24 03/27/24 03/27/24 23:59 07:59 15:59 Intake Total 360 / 1555 775 / 775 Output Total 100 / 700 400 / 400 Balance 260 / 855 375 / 375 Intake: Intake, Oral Amount 360 / 1305 Intake, Total IV Amount 775 / 775 0.9 % Sodium Chloride 1000ML 1, 425 / 425 000 ml @ 50 mls/hr IV .Q20H [facility] Rx#:[id number] Cefepime HCl 2 gm In 0.9 % 100 / 100 Sodium Chloride 100 ml @ 200 mls/hr IV Q8H [facility] Rx#:[id number] Vancomycin HCl 2,250 mg In 0.9 250 / 250 % Sodium Chloride 250 ml @ 125 mls/hr IV Q24H [facility] Rx#:[id number] Output: Output, Urine Amount 100 / 700 400 / 400 Other: Number of Unmeasured Voids 0 0 Weight 136.395 kg Patient Weight 03/27/24 23:59 Weight 136.395 kg Laboratory Results - last 24 hr 03/26/24 11:09: POC Glucose 273 H 03/26/24 15:51: POC Glucose 189 H 03/27/24 06:23: WBC 14.6 H, RBC 4.03 L, Hgb 10.6 L, Hct 35.4 L, MCV 87.9, MCH 26.3 L, MCHC 29.9 L, RDW 17.3, Plt Count 351, MPV 9.2, Neut % (Auto) 71.0, Lymph % (Auto) 19.1, [place] % (Auto) 6.4, Eos % (Auto) 2.5, Baso % (Auto) 1.0, Neut # (Auto) 10.4 H, Lymph # (Auto) 2.8, [place] # (Auto) 0.9, Eos # (Auto) 0.4, Baso # (Auto) 0.2, Sodium 138, Potassium 3.9, Chloride 108 H, Carbon Dioxide 23, Anion Gap 10.9, BUN 22 H D, Creatinine 1.40 H D, Estimated Creat Clear 43, Estimated GFR 39 L, Est GFR ( Amer) 47 L D, Glucose 154 H, Calcium 8.4, Magnesium 1.8, Total Bilirubin 0.3, AST 32, ALT 22, Alkaline Phosphatase 90, Total Protein 6.8, Albumin 2.8 L, Globulin 4.0 H, Albumin/Globulin Ratio 0.7 L I & O for Labs for Last 24 Hours: Intake & Output 03/24/24 03/25/24 03/26/24 03/27/24 23:59 23:59 23:59 23:59 Intake Total 1075 / 1175 0 / 1990 1555 / 1555 775 / 775 Output Total 3150 / 3750 3375 / 3375 700 / 700 400 / 400 Balance -2075 / -2575 -1635 / -1385 855 / 855 375 / 375 Weight 131.712 kg 134.263 kg 136.894 kg 136.395 kg Constitutional: Present no acute distress, morbidly obese, chronically ill appearing and cooperative Head: Present atraumatic and normocephalic ENT: Present normal exam Neck: Present normal inspection Respiratory: Present normal respiratory effort; Absent rhonchi, wheezes or crackles Cardiac: Present Reg Rate and Rhythm GI: Present soft and normal bowel sounds; Absent distention or tenderness Extremities: Present normal inspection; Absent tenderness or edema Comment:: Right lower extremity and postop bandage status post BKA. Right lower extremity stable. Weak dorsal pedal pulses. 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: Status: Acute Qualifiers: Encounter type: initial encounter Qualified Code(s): S88.112A - Complete traumatic amputation at level between knee and ankle, left lower leg, initial encounter Category: Medical Code(s): S88.112A - Complete traumatic amputation at level between knee and ankle, left lower leg, initial encounter (4) Sepsis: Status: Resolved Qualifiers: Sepsis type: sepsis due to unspecified organism Sepsis acute organ dysfunction status: without acute organ dysfunction Qualified Code(s): A41.9 - Sepsis, unspecified organism Category: Medical Code(s): A41.9 - Sepsis, unspecified organism (5) Cellulitis of left foot: Status: Acute Category: Medical Code(s): L03.116 - Cellulitis of left lower limb (6) Type 2 diabetes mellitus with diabetic neuropathy, with long-term current use of insulin: Status: Acute Category: Medical Code(s): E11.40 - Type 2 diabetes mellitus with diabetic neuropathy, unspecified; 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 transplanted heart: [place] heart Associated angina: without angina Qualified Code(s): I25.10 - Atherosclerotic heart disease of [place] coronary artery without angina pectoris Category: Medical Code(s): I25.10 - Atherosclerotic heart disease of [place] coronary artery without angina pectoris (8) Hyperlipemia: Status: Chronic Qualifiers: Hyperlipidemia type: other hyperlipidemia Qualified Code(s): E78.49 - Other hyperlipidemia Category: Medical Code(s): E78.5 - Hyperlipidemia, unspecified (9) Essential hypertension: Status: Chronic Category: Medical Code(s): I10 - Essential (primary) hypertension (10) Diabetic foot: Status: Acute Category: Medical Code(s): E11.8 - Type 2 diabetes mellitus with unspecified complications (11) Stented coronary artery: Status: Chronic Category: Surgical Code(s): Z95.5 - Presence of coronary angioplasty implant and graft (12) Recurrent major depression resistant to treatment: Status: Acute Category: Medical Code(s): F33.9 - Major depressive disorder, recurrent, unspecified (13) 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: Status: Chronic Category: Medical Code(s): E66.2 - Morbid (severe) obesity with alveolar hypoventilation; Z68.41 - Body mass index [BMI] 40.0-44.9, adult Plan Patient is a 53-year-old female with past medical history of diabetes mellitus CAD hypertension hyperlipidemia who presented to hospital due to not feeling well, nausea vomiting shortness of breath. Patient admitted for DKA and sepsis. Due to infection in leg, orthopedics was consulted and patient was taken for left BKA on 03/25/2024. Tolerated procedure well. Hemodynamically stable. Having pain overnight. Continues to require inpatient management. Will need placement for rehab when stable to discharge. Problems addressed as follows: Sepsis Gangrene of left foot stump Status post left BKA 03/25/2024 -Orthopedics consulted, appreciate their assistance in care. Discussed case this morning. Will continue broad-spectrum antibiotics for 48 hours after surgery. White cell count elevated today, likely secondary to reactive process postsurgery. Improving but elevated at 14 today. Repeat CBC, CMP, magnesium ordered for the morning -Continue oral opiates with oxycodone 10 mg every 4 hours. Continue Tylenol 1000 mg scheduled every 6 hours. Discontinue Dilaudid IV. Type 2 diabetes with hyperglycemia, poorly controlled -A1c 9.6 on presentation. Initially in DKA, gap is closed. Glucose better controlled this morning at 154. -Continue scheduled mealtime insulin plus sliding scale. Increase to 15 units plus medium intensity sliding scale. Glucose control goal less than 200 at all times. -basal insulin to 55 units twice daily Hx of CAD History of nonischemic cardiomyopathy/Takotsubo cardiomyopathy, 2020 -Cardiology consulted for preop optimization. Eleonora case this morning, recommend continuing meds as ordered. Patient high risk but benefits of surgery outweigh risks. - Stenting in Dec 2014, March 2020, Nov 2020-NICM/Takotsubo cardiomyopathy - Continue aspirin 81 mg daily, Xarelto 2.5 mg p.o. twice daily, atorvastatin 40 mg daily, Zetia 10 mg p.o. daily metoprolol 100 mg p.o. twice daily, ramipril 5 mg p.o. daily and Imdur 60 mg p.o. daily - EF recovered November 2020, Repeat echo today shows a normal EF, official read is pending -See cardiology note for full recommendations in details, risks are nonmodifiable. Patient at elevated risk for procedure. PT and OT consulted, working with her daily, will need placement for rehab SVT, resolved Hypertension Hyperlipidemia - Continue metoprolol, will consider daily adjustments for better rate control. Heart rate normal today in the 80s. Blood pressure well-controlled Full code Heparin 5000 units TID; on Xarelto for peripheral artery disease, holding at this time. diabetic diet
[2024-03-27] MEDS: HEPARIN SODIUM 5,000 UNIT/ML VIAL 5000 UNIT SQ ×3 (08:38→20:46)
[2024-03-27] MEDS: ISOSORBIDE MONO 60MG TAB.ER.24H 60 MG PO (08:39)
[2024-03-27] MEDS: SPIRONOLACTONE 25MG TABLET 25 MG PO (08:39)
[2024-03-27] MEDS: DAPAGLIFLOZIN PROPANEDIOL 10 MG TABLET PO (08:39)
[2024-03-27] MEDS: METOPROLOL TARTRATE 50MG TABLET 100 MG PO ×2 (08:39→20:46)
[2024-03-27] MEDS: DULOXETINE 30MG CAPSULE.DR 60 MG PO (08:39)
[2024-03-27] MEDS: ASPIRIN 81MG CHEWABLE TABLET 81 MG PO (08:39)
[2024-03-27] MEDS: metroNIDAZOLE 500 MG TABLET PO ×3 (08:39→20:47)
[2024-03-27] MEDS: PREGABALIN 100MG CAPSULE 200 MG PO ×2 (08:47→20:46)
[2024-03-27] MEDS: INSULIN GLARGINE 100 UNITS/ML 3ML FLEXPEN 55 UNIT SQ ×2 (08:50→20:46)
--- NOTE | 2024-03-27 10:37 | P.PN_ITS ---
Subjective *Date: 03/27/24 *Time: 10:37 Interval history: Patient is doing well, no complaints overnight. States pain is better controlled than yesterday, but it got ahead of her overnight. She is questioning timing of going to rehab. Denies any headache, lightheadedness, chest pain, shortness of breath, nausea or vomiting, calf pain. Exam Data for Last 24 hours Vital signs and Labs for Last 24 Hours: Temp Pulse Resp BP Pulse Ox O2 Del Method O2 Flow Rate 97.4 F L 96 H 20 108/78 L 94 L Room Air 1 03/27/24 08:00 03/27/24 08:00 03/27/24 08:00 03/27/24 08:00 03/27/24 08:00 03/27/24 09:00 03/19/24 17:00 Laboratory Results - last 24 hr 03/26/24 11:09: POC Glucose 273 H 03/26/24 15:51: POC Glucose 189 H 03/27/24 06:23: WBC 14.6 H, RBC 4.03 L, Hgb 10.6 L, Hct 35.4 L, MCV 87.9, MCH 26.3 L, MCHC 29.9 L, RDW 17.3, Plt Count 351, MPV 9.2, Neut % (Auto) 71.0, Lymph % (Auto) 19.1, [place] % (Auto) 6.4, Eos % (Auto) 2.5, Baso % (Auto) 1.0, Neut # (Auto) 10.4 H, Lymph # (Auto) 2.8, [place] # (Auto) 0.9, Eos # (Auto) 0.4, Baso # (Auto) 0.2, Sodium 138, Potassium 3.9, Chloride 108 H, Carbon Dioxide 23, Anion Gap 10.9, BUN 22 H D, Creatinine 1.40 H D, Estimated Creat Clear 43, Estimated GFR 39 L, Est GFR ( Amer) 47 L D, Glucose 154 H, Calcium 8.4, Magnesium 1.8, Total Bilirubin 0.3, AST 32, ALT 22, Alkaline Phosphatase 90, Total Protein 6.8, Albumin 2.8 L, Globulin 4.0 H, Albumin/Globulin Ratio 0.7 L I & O for Last 24 hours: Intake & Output 05/08/0903/25/24 03/26/24 03/27/24 23:59 23:59 23:59 23:59 Intake Total 1075 / 1175 1740 / 1990 1555 / 1555 1315 / 1315 Output Total 3150 / 3750 3375 / 3375 700 / 700 450 / 450 Balance -2075 / -2575 -1635 / -1385 855 / 855 865 / 865 Weight 131.712 kg 134.263 kg 136.894 kg 136.395 kg *Routine Extremities Exam Comments: Left lower extremity: Surgical dressing clean dry and intact without signs of drainage. Knee immobilizer replaced. Sensation intact to light touch at stump. 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 Soria, pain medications will be limited to oral medications from this point forward for discharge planning. Monitor for signs of oversedation. Continue with heparin SQ 3 times a day until transition to home anticoagulation. Continue with antibiotics per primary team. Patient to be out of bed as tolerated with nurse or physical therapy assistance. She will continue with a diabetic diet. Insulin regimen to preferably keep sugars 100- 200 at all times, per medical team. Dressing should be reinforced by nursing as needed for drainage, but not removed on the floor. We will continue to follow.
[2024-03-27] MEDS: humaLOG 100 UNITS/ML 3ML VIAL (SSI) 15 UNIT SQ ×2 (11:15→16:39)
[2024-03-27] MEDS: humaLOG 100 UNITS/ML 3ML VIAL (SSI) SQ ×3 (11:16→20:46)
[2024-03-27 11:34] LABS: POC Glucose,Bedside 183 (70-110)
[2024-03-27 12:00] VITALS: BP 94/59; PULSE 78; RESP 20; TEMP 36.4; O2SAT 95
[2024-03-27 16:00] VITALS: BP 115/67; PULSE 76; RESP 18; TEMP 36.8; O2SAT 95
[2024-03-27 16:50] LABS: POC Glucose,Bedside 200 (70-110)
[2024-03-27 20:00] VITALS: BP 109/66; PULSE 79; RESP 16; TEMP 36.9; O2SAT 95
[2024-03-27 20:16] LABS: Vancomycin,Trough 24.3 ug/mL (5.0-10.0)
--- NOTE | 2024-03-27 20:20 | PC.NURSE ---
Spoke with NICOLÁS, vanc trough 24.3, stated not to give 2100 dose, will change dosing and orders.
[2024-03-27] MEDS: EZETIMIBE 10MG TABLET 10 MG PO (20:47)
[2024-03-27] MEDS: TRAZODONE 50MG TABLET 100 MG PO (20:47)
[2024-03-27] MEDS: ATORVASTATIN 40MG TABLET 40 MG PO (20:47)
[2024-03-28] VITALS: BP 114/68; PULSE 77; RESP 16; TEMP 36.7; O2SAT 95
[2024-03-28] MEDS: CEFEPIME HCL 2 GM in 0.9 % SODIUM CHLORIDE 100 ML IV (01:36)
[2024-03-28 04:00] VITALS: BP 102/60; PULSE 75; RESP 17; TEMP 36.6; O2SAT 95; BMI 47.5
[2024-03-28] MEDS: ACETAMINOPHEN 500MG TAB 1000 MG PO ×3 (04:35→16:41)
[2024-03-28] MEDS: OXYCODONE 5MG IMMEDIATE RELEASE TABLET 10 MG PO ×3 (04:41→16:41)
[2024-03-28] MEDS: 0.9 % SODIUM CHLORIDE 1000ML 1,000 ML 50 ML IV (04:41)
--- NOTE | 2024-03-28 05:09 | PC.NURSE ---
Pt is alert and oriented. Complained of pain two times, treated per mar. No other complaints. Left BKA dressing and brace CDI. Pt has rested well throughout the night. Call light in reach.
[2024-03-28 06:15] LABS: Basophils # 0.1 K/mm3 (0-0.2); Basophils % 0.5 % (0.1-2.0); Eosinophils # 0.3 K/mm3 (0.0-0.4); Eosinophils % 2.7 % (0.1-12.0); Hematocrit 30.7 % (37.0-47.0); Lymphocytes # 2.6 K/mm3 (0.7-4.5); Lymphocytes % 25.3 % (10-50); Mean Corpuscular HGB Conc 30.8 g/dL (31.8-35.4); Mean Corpuscular Hemoglobin 26.6 pg (27.0-31.2); Mean Corpuscular Volume 86.3 fl (81-99); Mean Platelet Volume 9.2 fl (7.4-10.4); Monocytes # 0.9 K/mm3 (0.1-1.0); Monocytes % 8.5 % (1.7-9.3); Neutrophils # 6.6 K/mm3 (1.8-7.8); Neutrophils % 63.1 % (37.0-80.0); Platelet Count 307 K/mm3 (142-424); Red Blood Count 3.56 M/mm3 (4.20-5.40); Red Cell Distribution Width 17.6 % (11.5-17.5); White Blood Count 10.4 K/mm3 (4.8-10.8)
[2024-03-28] MEDS: humaLOG 100 UNITS/ML 3ML VIAL (SSI) 15 UNIT SQ (06:18)
[2024-03-28 06:20] LABS: Hemoglobin 9.5 g/dL (12.2-16.2)
[2024-03-28 06:25] LABS: Alanine Aminotransferase 18 U/L (12-78); Albumin Level 2.4 g/dl (3.5-5.0); Albumin/Globulin Ratio 0.6 (1.1-1.8); Alkaline Phosphatase 81 U/L (38-126); Aspartate Amino Transferase 24 U/L (14-36); Bilirubin,Total 0.2 mg/dl (0.2-1.3); Blood Urea Nitrogen 23 mg/dl (7-17); Calcium 8.2 mg/dl (8.4-10.2); Carbon Dioxide 24 mmol/L (22.0-30.0); Chloride 110 mmol/L (98-107); Creatinine Clearance Estimated 43 mL/min (50-200); Estimated Glomerular Filt Rate 39 ml/min (>60); GFR (African American) 47 ML/MIN (>60); Globulin 3.7 g/dL (1.3-3.2); Glucose 134 mg/dl (74-100); Sodium 139 mmol/L (136-145); Total Protein,Serum 6.1 g/dl (6.3-8.2)
[2024-03-28 07:24] LABS: Magnesium 1.7 mg/dl (1.6-2.3)
[2024-03-28 08:00] VITALS: BP 122/66; PULSE 74; RESP 16; TEMP 36.9; O2SAT 94
[2024-03-28] MEDS: DAPAGLIFLOZIN PROPANEDIOL 10 MG TABLET PO (08:46)
[2024-03-28] MEDS: ASPIRIN 81MG CHEWABLE TABLET 81 MG PO (08:46)
[2024-03-28] MEDS: INSULIN GLARGINE 100 UNITS/ML 3ML FLEXPEN 55 UNIT SQ (08:46)
[2024-03-28] MEDS: HEPARIN SODIUM 5,000 UNIT/ML VIAL 5000 UNIT SQ (08:46)
[2024-03-28] MEDS: DULOXETINE 30MG CAPSULE.DR 60 MG PO (08:46)
[2024-03-28] MEDS: SPIRONOLACTONE 25MG TABLET 25 MG PO (08:47)
[2024-03-28] MEDS: METOPROLOL TARTRATE 50MG TABLET 100 MG PO (08:47)
[2024-03-28] MEDS: ISOSORBIDE MONO 60MG TAB.ER.24H 60 MG PO (08:47)
[2024-03-28] MEDS: PREGABALIN 100MG CAPSULE 200 MG PO (08:51)
--- NOTE | 2024-03-28 09:54 | P.PN_ITS ---
Subjective Narrative: Patient is doing well, complaints of pain overnight. Currently 04/25 after working with PT. Denies any new complaints. Exam Data for Last 24 hours Vital signs and Labs for Last 24 Hours: Temp Pulse Resp BP Pulse Ox O2 Del Method O2 Flow Rate 98.5 F 74 16 122/66 94 L Room Air 1 03/28/24 08:00 03/28/24 08:00 03/28/24 08:00 03/28/24 08:00 03/28/24 08:00 03/28/24 09:00 03/19/24 17:00 Laboratory Results - last 24 hr 03/27/24 11:14: POC Glucose 183 H 03/27/24 16:38: POC Glucose 200 H 03/27/24 19:55: Vancomycin Trough 24.3 H 03/28/24 05:19: WBC 10.4 D, RBC 3.56 L, Hgb 9.5 L D, Hct 30.7 L, MCV 86.3, MCH 26.6 L, MCHC 30.8 L, RDW 17.6 H, Plt Count 307, MPV 9.2, Neut % (Auto) 63.1, Lymph % (Auto) 25.3, [place] % (Auto) 8.5, Eos % (Auto) 2.7, Baso % (Auto) 0.5, Neut # (Auto) 6.6, Lymph # (Auto) 2.6, [place] # (Auto) 0.9, Eos # (Auto) 0.3, Baso # (Auto) 0.1, Sodium 139, Potassium 4.0, Chloride 110 H, Carbon Dioxide 24, Anion Gap 9.0, BUN 23 H, Creatinine 1.40 H, Estimated Creat Clear 43, Estimated GFR 39 L, Est GFR ( Amer) 47 L, Glucose 134 H, Calcium 8.2 L, Magnesium 1.7, Total Bilirubin 0.2, AST 24, ALT 18, Alkaline Phosphatase 81, Total Protein 6.1 L, Albumin 2.4 L D, Globulin 3.7 H, Albumin/Globulin Ratio 0.6 L I & O for Last 24 hours: Intake & Output 03/25/24 03/26/24 03/27/24 03/28/24 23:59 23:59 23:59 23:59 Intake Total 1739 / 1989 1555 / 1555 2190 / 2190 1879 / 1879 Output Total 3375 / 3375 700 / 700 700 / 700 600 / 600 Balance -1635 / -1385 855 / 855 1490 / 1490 1279 / 1279 Weight 134.263 kg 136.894 kg 136.395 kg 134.037 kg *Routine Extremities Exam Comments: Left lower extremity: Surgical dressing changed, replaced with Xeroform, DSDs, guillermo wrap. KI replaced. Incision well-approximated, clean, dry, intact with xiomara, no active drainage, erythema, ecchymosis. Sensation intact to light touch at stump. Cap refill <2 sec over flap. 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 Monitor for signs of oversedation. Transition to home Xarelto. Antibiotics ended. Patient to be out of bed as tolerated with nurse or physical therapy assistance. She will continue with a diabetic diet. Insulin regimen to preferably keep sugars 100-200 at all times, per medical team. Dressing should be reinforced by nursing as needed for drainage, but not removed on the floor. We will continue to follow. (4) Sepsis: Status: Resolved (5) Cellulitis of left foot: Status: Acute (6) Type 2 diabetes mellitus with diabetic neuropathy, with long-term current use of insulin: Status: Acute (7) CAD (coronary artery disease): Status: Chronic (8) Hyperlipemia: Status: Chronic (9) Essential hypertension: Status: Chronic (10) Diabetic foot: Status: Acute (11) Stented coronary artery: Status: Chronic (12) Recurrent major depression resistant to treatment: Status: Acute (13) 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: Status: Chronic
--- NOTE | 2024-03-28 11:25 | DIET.NUTRFU ---
Addendum entered by Mimi Weston RD, LD 03/28/24 13:43: during visit offered her educational material on diabetic diet and she declined. She plans to to OR upon discharge. Original Note: No BM since 03/23, reviewed with provider medications started. Plans to go to OR upon discharge. Tolerating diet with good po intake
[2024-03-28] MEDS: SODIUM PHOS/BIPHOSPHATE FLEET 133ML ENEMA 133 ML RC (11:33)
[2024-03-28] MEDS: SENNOSIDES 8.6MG/DOCUSATE 50MG TABLET 1 TAB PO (11:33)
[2024-03-28] MEDS: POLYETHYLENE GLYCOL 3350 17 GM PACKET PO ×2 (11:33→17:19)
[2024-03-28] MEDS: humaLOG 100 UNITS/ML 3ML VIAL (SSI) 17 UNIT SQ ×2 (11:36→16:47)
--- NOTE | 2024-03-28 11:43 | EXP.DC.SUM ---
General Admission date:: 03/19/24 Discharge date: 03/28/24 HPI HPI HPI: 53-year-old female with a very long complicated history of left lower extremity surgeries related to diabetes. I reviewed her entire surgical history in her left lower extremity which is extensive. 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 She presented to the hospital with symptoms of DKA. Subsequently evaluation of the left lower extremity revealed infection of the partial amputation stump in the left lower extremity. She has a long history of procedures with podiatry here but also recently in [place]. She has seen Dr. Greco who is a vascular surgeon who initially suggested she should have a below-knee amputation. However they proceeded with local wound treatment and initially was able to avoid any amputation discussion. However over the last month and specifically last 2 weeks it has been worse on the left lower extremity. She does not have sensation in this area but has noticed that she is decompensated in regards to redness and infection. I was consulted regarding treatment options for the left lower extremity. 03/26/24: Patient doing well overall. States that her block wore off at 3:00 in the morning, and her pain has not been well-controlled since then. She states that pain meds wear off several hours before they are due again, and she has been using her IV breakthrough Dilaudid more often. She states that she has a sensation of phantom pain in her ankle that shoots up into her stump. She has been eating a regular diet, but has not gotten up out of bed yet. She would like to do that today. Hospital Course Hospital Course Hospital Course: Patient is a 53-year-old female with past medical history of diabetes mellitus CAD hypertension hyperlipidemia who presented to hospital due to not feeling well, nausea vomiting shortness of breath. Patient admitted for DKA and sepsis. Found to have infection in her left foot at site of previous amputation. Tolerated treatment for DKA well. Orthopedics was consulted. Discussion about appropriate treatment for her leg and infection. Given severity, vascular disease, decision made to proceed with left BKA. This was performed on 03/25. Tolerated procedure well. Glucose has been better controlled since surgery. Wound healthy and clean. Meeting criteria for discharge to rehab to continue to heal from her surgery and improve her mobility. Goal is to move toward prosthesis in the coming months with goals of ambulating again. Stable to discharge to rehab. Needs follow-up with orthopedics. 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 Initiated on broad-spectrum antibiotics with vancomycin, cefepime, Flagyl. Wound culture grew E. coli. Orthopedics was consulted to assist with care. After much discussion with patient, decision made to move forward with left BKA. Procedure performed on 03/25/2024. Tolerated procedure well with no complications. Continued antibiotics for approximately 48 hours after surgery. White cell count normalized. White cell count is 10.4 on day of discharge. Would benefit from repeat CBC, CMP, magnesium in 1 week to monitor stability of labs and kidney function. Having postop pain. Currently on oxycodone 10 mg every 4 hours as needed along with Tylenol 1000 mg scheduled every 6 hours. Patient at baseline is on hydrocodone 7.5/325 mg every 6 hours at home. Goal to gradually weaned to her home pain regimen in the coming days to week. Continuing home Lyrica dose. Electronic prescription for 3 days of oxycodone sent to [facility] to his pharmacy. Further dose adjustment deferred to orthopedics and provider at [facility]. Continue with clean dry dressings to left stump. Will need follow-up with orthopedics in the coming week for evaluation of wound. Type 2 diabetes with hyperglycemia, poorly controlled: - Patient has history of poorly controlled diabetes. Complications including CKD, neuropathy, previous infections and Charcot foot. Presented with infection and DKA. A1c 9.6 on presentation. Significant adjustments made to regimen. Will continue basal insulin 55 units twice daily. Mealtime insulin gradually increased to 18 units 3 times a day with meals. Glucose control goal between 100-200 to promote healing and decrease risk for infection from orthopedic procedure. Hx of CAD History of nonischemic cardiomyopathy/Takotsubo cardiomyopathy, 20 Needs repeat A1c in 3 months.21 -Cardiology consulted for preop optimization. Patient high risk but benefits of surgery outweigh risks. Cardiac history as follows: Stenting in Dec 2014, March 2020, Nov 2020-NICM/Takotsubo cardiomyopathy. Recommend Continue Xarelto 2.5 mg p.o. twice daily, atorvastatin 40 mg daily, Zetia 10 mg p.o. daily metoprolol 100 mg p.o. twice daily, ramipril 5 mg p.o. daily and Imdur 60 mg p.o. daily. EF recovered November 2020, Repeat echo this admission showing normal EF. PT and OT consulted, working with her daily, recommended rehab for placement. SVT, resolved Hypertension Hyperlipidemia - Continue metoprolol, rate well-controlled during admission. No further adjustments at this time Total time spent on discharge 40 minutes in counseling, documentation, chart review, and direct care with patient. Exam Data for Last 24 hours Vital signs and Labs for Last 24 Hours: Temp Pulse Resp BP Pulse Ox O2 Del Method O2 Flow Rate 98.5 F 74 16 122/66 94 L Room Air 1 03/28/24 08:00 03/28/24 08:00 03/28/24 08:00 03/28/24 08:00 03/28/24 08:00 03/28/24 10:42 03/19/24 17:00 Laboratory Results - last 24 hr 03/27/24 16:38: POC Glucose 200 H 03/27/24 19:55: Vancomycin Trough 24.3 H 03/28/24 05:19: WBC 10.4 D, RBC 3.56 L, Hgb 9.5 L D, Hct 30.7 L, MCV 86.3, MCH 26.6 L, MCHC 30.8 L, RDW 17.6 H, Plt Count 307, MPV 9.2, Neut % (Auto) 63.1, Lymph % (Auto) 25.3, [place] % (Auto) 8.5, Eos % (Auto) 2.7, Baso % (Auto) 0.5, Neut # (Auto) 6.6, Lymph # (Auto) 2.6, [place] # (Auto) 0.9, Eos # (Auto) 0.3, Baso # (Auto) 0.1, Sodium 139, Potassium 4.0, Chloride 110 H, Carbon Dioxide 24, Anion Gap 9.0, BUN 23 H, Creatinine 1.40 H, Estimated Creat Clear 43, Estimated GFR 39 L, Est GFR ( Amer) 47 L, Glucose 134 H, Calcium 8.2 L, Magnesium 1.7, Total Bilirubin 0.2, AST 24, ALT 18, Alkaline Phosphatase 81, Total Protein 6.1 L, Albumin 2.4 L D, Globulin 3.7 H, Albumin/Globulin Ratio 0.6 L I & O for Last 24 hours: Intake & Output 03/25/24 03/26/24 03/27/24 03/28/24 23:59 23:59 23:59 23:59 Intake Total 1739 / 1989 1555 / 1555 2190 / 2190 1879 / 1879 Output Total 3375 / 3375 700 / 700 700 / 700 600 / 600 Balance -1635 / -1385 855 / 855 1490 / 1490 1279 / 1279 Weight 134.263 kg 136.894 kg 136.395 kg 134.037 kg Constitutional Constitutional: no acute distress, morbidly obese, chronically ill appearing and cooperative *Routine HEENT Exam Head: Present normocephalic Eye: Present EOMI and PERRL ENT: Present mucous membranes moist *Routine Neck Exam Neck: Present supple; Absent lymphadenopathy *Routine Respiratory Exam Respiratory: Present CTA bilaterally; Absent rhonchi, wheezes or crackles *Routine Cardiovascular Exam Cardiovascular: Present RRR *Routine Abdominal Exam Abdominal: Present soft and normoactive bowel sounds; Absent tenderness *Routine Rectal Exam Patient deferred: visual exam *Routine Exam Patient deferred: external exam *Routine Extremities Exam Extremities: Absent cyanosis, clubbing or edema Comments: Left BKA, surgical incision clean dry and intact. Healthy with no drainage. No sign of infection. Diminished pulses in right lower extremity *Routine Skin Exam Skin: Present intact and warm; Absent rash *Routine Neurological Exam Neurological: Present alert, oriented X3 and moving all extremities; Absent altered mental status Results Data Completed and Pending Labs on day of discharge: Labs from last 24 hours 03/28/24 03/27/24 03/27/24 05:19 19:55 16:38 WBC 10.4 D RBC 3.56 L Hgb 9.5 L D Hct 30.7 L MCV 86.3 MCH 26.6 L MCHC 30.8 L RDW 17.6 H Plt Count 307 MPV 9.2 Neut % (Auto) 63.1 Lymph % (Auto) 25.3 [place] % (Auto) 8.5 Eos % (Auto) 2.7 Baso % (Auto) 0.5 Neut # (Auto) 6.6 Lymph # (Auto) 2.6 [place] # (Auto) 0.9 Eos # (Auto) 0.3 Baso # (Auto) 0.1 Sodium 139 Potassium 4.0 Chloride 110 H Carbon Dioxide 24 Anion Gap 9.0 BUN 23 H Creatinine 1.40 H Estimated Creat Clear 43 Estimated GFR 39 L Est GFR ( Amer) 47 L Glucose 134 H POC Glucose 200 H Calcium 8.2 L Magnesium 1.7 Total Bilirubin 0.2 AST 24 ALT 18 Alkaline Phosphatase 81 Total Protein 6.1 L Albumin 2.4 L D Globulin 3.7 H Albumin/Globulin Ratio 0.6 L Vancomycin Trough 24.3 H DS: Diagnosis Discharge Diagnosis (1) Foot abscess, left: Status: Acute Code(s): L02.612 - Cutaneous abscess of left foot (2) DKA (diabetic ketoacidosis): Status: Acute Code(s): E11.10 - Type 2 diabetes mellitus with ketoacidosis without coma (3) 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: Status: Acute Code(s): S88.112A - Complete traumatic amputation at level between knee and ankle, left lower leg, initial encounter Qualifiers: Encounter type: initial encounter Qualified Code(s): S88.112A - Complete traumatic amputation at level between knee and ankle, left lower leg, initial encounter (4) Sepsis: Status: Resolved Code(s): A41.9 - Sepsis, unspecified organism Qualifiers: Sepsis acute organ dysfunction status: without acute organ dysfunction Sepsis type: sepsis due to unspecified organism Qualified Code(s): A41.9 - Sepsis, unspecified organism (5) Cellulitis of left foot: Status: Acute Code(s): L03.116 - Cellulitis of left lower limb (6) Type 2 diabetes mellitus with diabetic neuropathy, with long-term current use of insulin: Status: Acute Code(s): E11.40 - Type 2 diabetes mellitus with diabetic neuropathy, unspecified; Z79.4 - jail (current) use of insulin (7) CAD (coronary artery disease): Status: Chronic Code(s): I25.10 - Atherosclerotic heart disease of [place] coronary artery without angina pectoris Qualifiers: Associated angina: without angina Coronary Disease-Associated Artery/Lesion type: [place] artery [place] vs. transplanted heart: [place] heart Qualified Code(s): I25.10 - Atherosclerotic heart disease of [place] coronary artery without angina pectoris (8) Hyperlipemia: Status: Chronic Code(s): E78.5 - Hyperlipidemia, unspecified Qualifiers: Hyperlipidemia type: other hyperlipidemia Qualified Code(s): E78.49 - Other hyperlipidemia (9) Essential hypertension: Status: Chronic Code(s): I10 - Essential (primary) hypertension (10) Diabetic foot: Status: Acute Code(s): E11.8 - Type 2 diabetes mellitus with unspecified complications (11) Stented coronary artery: Status: Chronic Code(s): Z95.5 - Presence of coronary angioplasty implant and graft (12) Recurrent major depression resistant to treatment: Status: Acute Code(s): F33.9 - Major depressive disorder, recurrent, unspecified (13) 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: Status: Chronic Code(s): E66.2 - Morbid (severe) obesity with alveolar hypoventilation; Z68.41 - Body mass index [BMI] 40.0-44.9, adult Meds Home Medications and Allergies Home Medications Medication Instructions Recorded Confirmed Type aspirin 81 mg chewable tablet 81 mg PO DAILY HEART HEALTH 04/08/19 03/19/24 History ezetimibe 10 mg tablet 10 mg PO HS 03/06/20 03/19/24 History duloxetine 60 mg capsule,delayed 60 mg PO BID 07/02/20 03/19/24 History release dapagliflozin propanediol 10 mg 10 mg PO DAILY 11/01/20 03/19/24 History tablet ramipril 5 mg capsule 5 mg PO DAILY 01/07/21 03/19/24 History spironolactone 25 mg tablet 25 mg PO DAILY 02/05/21 03/19/24 History rosuvastatin 20 mg tablet 20 mg PO DAILY 02/14/21 03/19/24 History trazodone 100 mg tablet 100 mg PO HS 02/14/21 03/19/24 History rivaroxaban 2.5 mg tablet (Xarelto) 2.5 mg PO BIDWMEAL 07/12/23 03/19/24 History isosorbide mononitrate 60 mg 60 mg PO DAILY 03/19/24 03/19/24 History tablet,extended release 24 hr metoprolol tartrate 100 mg tablet 100 mg PO BID 03/19/24 03/19/24 History acetaminophen 500 mg tablet 1,000 mg (2 x 500 mg) PO Q6H 10 05/13/24 Rx days #80 tabs insulin glargine 100 unit/mL (3 55 unit (0.55 mL) SQ BID 30 days 03/28/24 Rx mL) subcutaneous pen (Lantus #0 mL Solostar U-100 Insulin) insulin lispro 100 unit/mL 18 unit (0.18 mL) SQ AC 30 days 03/28/24 Rx subcutaneous solution (Humalog #16.2 mL U-100 Insulin) oxycodone 5 mg tablet 10 mg (2 x 5 mg) PO Q4HP PRN 03/28/24 Rx Severe Pain (7-10) 3 days #36 tabs polyethylene glycol 3350 17 gram 17 g PO DAILY PRN Constipation 30 03/28/24 Rx oral powder packet (Miralax) days #100 ea pregabalin 200 mg capsule 200 mg PO BID 30 days #60 caps 03/28/24 Rx sennosides 8.6 mg-docusate sodium 1 tab PO BID 30 days #60 tabs 03/28/24 Rx 50 mg tablet (Stimulant Laxative Plus) New Prescriptions to Start Prescriptions: Levi Elizalde insulin lispro [Humalog U-100 Insulin] Levi Soria oxycodone Levi Soria polyethylene glycol 3350 [Miralax] Levi Soria pregabalin Levi Soria sennoalejandros-docusate sodium [Stimulant Laxative Plus] Levi Soria Allergies Allergy/AdvReac Type Severity Reaction Status Date / Time clopidogrel [From Plavix] Allergy Severe Hives Verified 03/20/24 07:31 amoxicillin [AMOXICILLIN] Allergy Unknown Unknown Verified 09/22/23 13:12 allergy reaction codeine [CODEINE] AdvReac Mild STOMACH Verified 09/22/23 13:12 CRAMPS morphine [MORPHINE] AdvReac Mild STOMACH Verified 09/22/23 13:12 CRAMPS oxycodone [From Percocet] AdvReac Mild STOMACH Verified 09/22/23 13:12 CRAMPS Discharge Plan Disposition Patient Disposition: Xfer SNF Condition: Fair Discharge Order Discharge Orders: Discharge Order (Routine); Ordered 03/28/24 Ordered By: Levi Soria Follow up Plan Follow up with: Gordon Williamson DO [Staff Physician] - Enter time for follow up Glenroy Cary MD [Staff Physician] - Enter time for follow up Prescriptions/Medication Reconciliation: New acetaminophen 500 mg Tablet 1,000 mg PO Q6H 10 Days Qty: 80 0RF insulin glargine [Lantus Solostar U-100 Insulin] 100 unit/mL (3 mL) Insulin Pen 55 unit SQ BID 30 Days Qty: 0 0RF polyethylene glycol 3350 [Miralax] 17 gram Powder In Packet 17 g PO DAILY PRN (Reason: Constipation) 30 Days Qty: 100 0RF sennosides-docusate sodium [Stimulant Laxative Plus] 8.6-50 mg Tablet 1 tab PO BID 30 Days Qty: 60 0RF insulin lispro [Humalog U-100 Insulin] 100 unit/mL Solution 18 unit SQ AC 30 Days Qty: 16.2 0RF oxycodone 5 mg Tablet 10 mg PO Q4HP PRN (Reason: Severe Pain (7-10)) 3 Days Qty: 36 0RF Continued duloxetine 60 mg capsule,delayed release(DR/EC) 60 mg PO BID dapagliflozin propanediol 10 mg tablet 10 mg PO DAILY ezetimibe 10 mg tablet 10 mg PO HS rosuvastatin 20 mg tablet 20 mg PO DAILY trazodone 100 mg tablet 100 mg PO HS metoprolol tartrate 100 mg tablet 100 mg PO BID isosorbide mononitrate 60 mg tablet extended release 24 hr 60 mg PO DAILY pregabalin 200 MG capsule 200 mg PO BID 30 Days Qty: 60 0RF aspirin 81 MG tablet,chewable 81 mg PO DAILY ramipril 5 MG capsule 5 mg PO DAILY spironolactone 25 MG tablet 25 mg PO DAILY Xarelto 2.5 mg Tablet 2.5 mg PO BIDWMEAL Discontinued insulin glargine 100 unit/mL (3 mL) insulin pen 90 unit SQ HS insulin aspart U-100 [Novolog FlexPen U-100 Insulin] 100 unit/mL (3 mL) insulin pen 0 sliding scale dose SQ AC Patient Comments: INJECT 10-22 UNITS SUBCUTANEOUSLY BEFORE MEAL(S) THREE TIMES DAILY DO NOT EXCEED 70 UNITS PER DAY hydrocodone-acetaminophen 10-325 mg tablet 1 tab PO Q6HP PRN (Reason: Moderate Pain (Scale Score 5-6)) Problem Reconciliation Problems Reviewed?: Yes Patient Discharge Instructions ACTIVITY: Up with assistance DIET: continue same diet and diabetic diet Patient Instructions: DI for Surgical Site Infection, DI for Diabetic Ketoacidosis Providers Primary Care Provider: Diego Lynch Admit Provider: Rashawn Miller Attending Provider: Rashawn Miller
[2024-03-28 11:58] LABS: POC Glucose,Bedside 138 (70-110)
[2024-03-28 16:00] VITALS: BP 147/70; PULSE 76; RESP 16; TEMP 36.6; O2SAT 98
[2024-03-28 16:56] LABS: POC Glucose,Bedside 145 (70-110)
--- NOTE | 2024-03-28 17:11 | PC.NURSE ---
A&OX4. TOLERATING RA WELL. PT HAS REMAINED IN BED MAJORITY OF SHIFT, HAS STOOD UP WITH PT TODAY. HAS C/O INTERMITTENT PAIN TO LLE, TX WITH MEDICATION PER MAR. DRESSING CHANGED TO LLE PER WOUND CARE. CDI. NO DRAINAGE NOTED. PURE WICK IN PLACE DRAINING LARGE AMOUNT OF BRIGHT YELLOW URINE. PT ABLE TO HELP TURN SELF IN BED BUT REMAINS X2 ASSIST. PT HAS NOT BEEN ABLE TO HAVE A BM THIS SHIFT. GIVEN ENEMA AND MEDICATION PER MAR. PT STATES SHE STILL DOESN'T FEEL THE NEED TO HAVE A BM. VSS.
== END 2024-03-28 18:54 | DRG 853 ==
LOC: ER 12:13 → 2ND 12:44
PROVIDERS: Internal Medicine Adolescent Medicine; Nurse Practitioner Family; Orthopaedic Surgery; Podiatrist; Admitting Provider Internal Medicine; Emergency Provider Emergency Medicine; PCP Internal Medicine; Visit Provider Internal Medicine
PROC: 0Y6J0Z3 Detachment at Left Lower Leg, Low, Open Approach (ICD-10-PCS; CPT 27880; principal; 2024-03-25 09:15)
DX: A41.9 Sepsis, unspecified organism (principal); E11.10 Type 2 diabetes mellitus with ketoacidosis without coma; E66.2 Morbid (severe) obesity with alveolar hypoventilation; E87.1 Hypo-osmolality and hyponatremia; F33.9 Major depressive disorder, recurrent, unspecified; I51.81 Takotsubo syndrome; Z68.42 Body mass index [BMI] 45.0-49.9, adult; T87.44 Infection of amputation stump, left lower extremity; I47.10 Supraventricular tachycardia, unspecified; Z68.41 Body mass index [BMI] 40.0-44.9, adult; L02.612 Cutaneous abscess of left foot; L03.116 Cellulitis of left lower limb; I25.10 Atherosclerotic heart disease of native coronary artery without angina pectoris; E78.49 Other hyperlipidemia; I10 Essential (primary) hypertension; Z79.4 Long term (current) use of insulin; I12.9 Hypertensive chronic kidney disease with stage 1 through stage 4 chronic kidney disease, or unspecified chronic kidney disease; N18.9 Chronic kidney disease, unspecified; E78.5 Hyperlipidemia, unspecified; Z87.891 Personal history of nicotine dependence; E11.40 Type 2 diabetes mellitus with diabetic neuropathy, unspecified; Y83.5 Amputation of limb(s) as the cause of abnormal reaction of the patient, or of later complication, without mention of misadventure at the time of the procedure; Z95.5 Presence of coronary angioplasty implant and graft
CPT/HCPCS: 27880; 36415; 71045; 73630; 80048; 80053; 80202; 81001; 82009; 82803; 82962; 83036; 83605; 83690; 83735; 83880; 84100; 84484; 85007; 85025; 85651; 86140; 87070; 87077; 87081; 87186; 87205; 93005; 93306; 93923; 97110; 97163; 97166; 97530; 99285; J3490; J2405; J3370; J3475; Q9957

== ENCOUNTER 2024-12-20 07:11 | Outpatient (CLI) | payer MEDICARE, SELFPAY ==
--- NOTE | 2024-12-20 | CA_ITS ---
APPROVED REPORT Exam: Pharmacologic Technologist: Joan David Ht: 5 ft 6 in Wt: 290 lbs BSA: 2.34 m2 HR: 60 bpm BP: 115/53 mmHg Stress Test Details Test: Lexiscan HR Resting HR: 60 bpm Max Heart Rate (APMHR): 164.689845 bpm Max HR Achieved: 68 bpm Target HR (85% APMHR): 139.788833 bpm % of APMHR: 41.46 Recovery HR: 65 bpm BP Resting BP: 115.0/53.0 mmHg Max BP: 130.0/59.0 mmHg Recovery BP: 117.0/55.0 mmHg ECG Stress ECG Conclusion Symptoms: Dyspnea Arrhythmias/Ectopy: - ST-T Changes: Less than [address] depression Conclusion: EKG portion unremarkable due to Lexiscan infusion. Electronically signed by : Johanna Cary MD 12/20/2024 12:07:03
--- NOTE | 2024-12-20 07:11 | NM_ITS ---
APPROVED REPORT Exam: Nuclear Stress Test Indication: Chest pain, Palpitations, Fatigue, CAD, HTN, DM, Family history Patient Location: Outpatient Stress Tech: Joan David MT Tech:Cindi Marie, ARRT, RT (R)(N) Ht: 5 ft 6 in Wt: 290 lbs Bra Size: B HR: 60 bpm BP: 115/53 mmHg BSA: 2.34 m2 TID: 1.39 BMI: 46.8 History: Chest pain, Palpitations, Fatigue, CAD, HTN, DM, Family history Procedure: Patient received 0.4 mg of intravenous Lexiscan, resting heart rate 60 bpm, resting blood pressure 115/53 mmHg, with Lexiscan maximum heart rate achieved was 68 bpm which is % of the maximum predicted heart rate and blood pressure was 130/59 mmHg. With Lexiscan, patient denied any complaint of chest pain. Cardiac Stress and Resting SPECT Images: Cardiac Stress and Resting SPECT images were obtained using technetium 99m Myoview 30.4 mCi stress and 10.12 mCi at rest. The patient is unable to lie on her abdomen. Therefore, prone stress imaging could not be performed. This may affect the diagnostic interpretation of the study findings. Resting and stress imaging in supine positions demonstrate no evidence of fixed or reversible perfusion defects. There is increase in transient ischemic dilatation ratio (TID 1.39), suggestive of possible multivessel disease or balanced ischemia. Gated imaging demonstrates normal global and regional LV systolic function. LVEF is calculated at 55%. Conclusion: No evidence of fixed or reversible perfusion defects. There is increase in transient ischemic dilatation ratio (TID 1.39), suggestive of possible multivessel disease or balanced ischemia. Gated imaging demonstrates normal global and regional LV systolic function. LVEF is calculated at 55%. Electronically signed by : Johanna Cary MD 12/20/2024 12:02:31
[2024-12-20] MEDS: SODIUM CHLORIDE 0.9% 10ML SYR (RAD ONLY) 10 ML IV ×2 (09:04)
[2024-12-20] MEDS: REGADENOSON 0.4MG/5ML SYRINGE 0.4 MG IV (09:04)
[2024-12-20] MEDS: ISOTOPE MYOVIEW (PER STUDY) 1 DOSE IV (09:04)
== END 2024-12-20 23:59 | disposition home or self-care (01) ==
LOC: RAD 07:11
PROVIDERS: PCP Internal Medicine; Visit Provider Physician Assistant
DX: I25.10 Atherosclerotic heart disease of native coronary artery without angina pectoris (principal); E78.49 Other hyperlipidemia; I10 Essential (primary) hypertension; N18.31 Chronic kidney disease, stage 3a; E11.610 Type 2 diabetes mellitus with diabetic neuropathic arthropathy; Z95.5 Presence of coronary angioplasty implant and graft
CPT/HCPCS: 78452; 93017; 93018; A9502; J2785

== ENCOUNTER 2024-12-26 14:27 | Outpatient (CLI) | payer MEDICARE, SELFPAY ==
[2024-12-26 15:46] LABS: Basophils # 0.1 K/mm3 (0-0.2); Basophils % 0.7 % (0.1-2.0); Eosinophils # 0.4 K/mm3 (0.0-0.4); Eosinophils % 4.1 % (0.1-12.0); Hematocrit 40.8 % (37.0-47.0); Hemoglobin 12.9 g/dL (12.2-16.2); Lymphocytes # 2.3 K/mm3 (0.7-4.5); Lymphocytes % 26.1 % (10-50); Mean Corpuscular HGB Conc 31.6 g/dL (31.8-35.4); Mean Corpuscular Hemoglobin 26.9 pg (27.0-31.2); Mean Corpuscular Volume 85.2 fl (81-99); Monocytes # 0.8 K/mm3 (0.1-1.0); Monocytes % 8.8 % (1.7-9.3); Neutrophils # 5.3 K/mm3 (1.8-7.8); Neutrophils % 59.7 % (37.0-80.0); Platelet Count 260 K/mm3 (142-424); Red Blood Count 4.79 M/mm3 (4.20-5.40); Red Cell Distribution Width 14.2 % (11.5-17.5); White Blood Count 8.8 K/mm3 (4.8-10.8)
[2024-12-26 16:02] LABS: Alanine Aminotransferase 18 U/L (12-78); Albumin Level 4.1 g/dl (3.5-5.0); Alkaline Phosphatase 93 U/L (38-126); Anion Gap 17.5 mEq/L (5-15); Aspartate Amino Transferase 24 U/L (14-36); Bilirubin,Direct 0.3 mg/dl (0.0-0.4); Bilirubin,Total 0.3 mg/dl (0.2-1.3); Bilirubin,Unconjugated 0.1 mg/dL (0.0-1.1); Blood Urea Nitrogen 22 mg/dl (7-17); Calcium 9.2 mg/dl (8.4-10.2); Carbon Dioxide 26 mmol/L (22.0-30.0); Chloride 99 mmol/L (98-107); Chol/HDL Ratio 3.9 (1-3.5); Cholesterol 112 mg/dl (140-200); Estimated Glomerular Filt Rate 46 ml/min (>60); GFR (African American) 56 ML/MIN (>60); Glucose 263 mg/dl (74-100); HDL Cholesterol 29 mg/dl (40-60); Magnesium 1.6 mg/dl (1.6-2.3); Potassium 4.5 mmoL/L (3.5-5.1); Sodium 138 mmol/L (136-145); Total Protein,Serum 6.8 g/dl (6.3-8.2); Triglycerides 283 mg/dl (30-150); VLDL Cholesterol 57 mg/dL (0-40)
[2024-12-26 16:13] LABS: Direct LDL Cholesterol 37.47 mg/dL (100-129)
[2024-12-26 16:19] LABS: Free T4 (Free Thyroxine) 1.56 ng/dl (0.78-2.19)
[2024-12-26 16:33] LABS: Thyroid Stimulating Hormone 2.56 uIU/mL (0.465-4.68)
== END 2024-12-26 23:59 | disposition home or self-care (01) ==
LOC: LAB 14:28
PROVIDERS: Physician Assistant; PCP Internal Medicine; Visit Provider Physician Assistant
DX: I25.119 Atherosclerotic heart disease of native coronary artery with unspecified angina pectoris (principal); E78.49 Other hyperlipidemia; I10 Essential (primary) hypertension; N18.31 Chronic kidney disease, stage 3a; E11.610 Type 2 diabetes mellitus with diabetic neuropathic arthropathy; Z95.5 Presence of coronary angioplasty implant and graft
CPT/HCPCS: 36415; 80048; 80061; 80076; 83036; 83735; 84439; 84443; 85025

== ENCOUNTER 2025-01-11 08:37 | Outpatient (CLI) | payer MEDICARE, SELFPAY ==
--- NOTE | 2025-01-11 08:42 | CA_ITS ---
FINAL REPORT TECHNIQUE: Spectral and color Doppler exam CLINICAL HISTORY: HTN,DM,HLD,EX SMOKER,OBESITY COMPARISON: None FINDINGS: DOPPLER RENAL VESSELS HISTORY: Hypertension, diabetes. FINDINGS: Intrarenal resistive indices on the right are 0.57-0.66, normal . Intrarenal resistive indices on the left are 0.78-0.85, normal . Renal size is normal and symmetric. Right main renal artery systolic velocity: 162 cm/sec. Aortic-right renal artery flow velocity ratio: 1.13 COMMENT: No evidence of hemodynamically significant renal artery stenosis . Left main renal artery systolic velocity: 157 cm/sec. Aortic-left renal artery flow velocity ratio: 1.1 COMMENT: No evidence of hemodynamically significant renal artery stenosis . IMPRESSION: No evidence of hemodynamically significant renal artery stenosis CTA or gadolinium-enhanced MR may be considered as a more sensitive exam. Alternatively noncontrast MRI may be considered for assessing main renal arteries for stenosis as a more sensitive exam if the patient has renal insufficiency. Reviewed, Interpreted and Dictated by Armen Ortiz MD Transcribed by Sunitha Rebolledo Authenticated and [facility]
--- NOTE | 2025-01-11 09:21 | US_ITS ---
FINAL REPORT TECHNIQUE: Ultrasound images of the kidneys were obtained. CLINICAL HISTORY: I10 - Essential (primary) hypertension COMPARISON: None FINDINGS: RENAL ULTRASOUND Limited images of the liver parenchyma demonstrate fatty infiltration. The right kidney measures 11.2 cm in length with a volume of 244 mL. The left kidney is not well-visualized measuring 10.9 cm in length with a volume of 246 mL. There is no hydronephrosis or obvious mass. IMPRESSION: No hydronephrosis or significant renal atrophy. Reviewed, Interpreted and Dictated by Armen Ortiz MD Transcribed by Abigail Mcrae Authenticated and [facility]
== END 2025-01-11 23:59 | disposition home or self-care (01) ==
LOC: RT 08:37
PROVIDERS: PCP Internal Medicine; Visit Provider Physician Assistant
DX: I10 Essential (primary) hypertension (principal)
CPT/HCPCS: 76770; 93976

== ENCOUNTER 2025-02-25 15:00 | Emergency (ER) | payer MEDICARE, SELFPAY ==
[2025-02-25] VITALS (10 sets, daily range): BP systolic 111–134; BP diastolic 63–78; PULSE 74–97; RESP 18; TEMP 36.7–37; O2SAT 95–99; BMI 47.6
--- OUTSIDE RECORDS SUMMARY | 2025-02-25 15:15 | XMS_ITS | Data Portability ---
Author Organization [facility] TISHA Ac [place] CLOSED Address [address] [place] [address] Assessment No assessment recorded. Plan of Treatment Reminders Order Date Submit Date Provider Last Modified By Organization Details Last Modified Time Details Appointments None recorded. Lab glucose, fingerstic k, blood 2023 024 [facility], [address] [place] [address], [address], 4 15:21:02 hemoglobin A1C, fingerstic k 2023 024 [facility], [address] [place] [address], [address], 4 15:21:03 BMP, serum or plasma 2023 024 [facility], [address] [place] [address], [address], 4 16:57:00 microalbum in/creatin ine, mass ratio, urine 2023 024 [facility], [address] [place] [address], [address], 4 17:04:15 lipid panel, serum 2023 024 [facility], [address] [place] [address], [address], 4 16:56:58 hepatic function panel, serum 2023 024 [email or web address] [facility], [address] [place] [address], [address], 4 16:56:57 glucose, fingerstic k, blood 2022 023 [facility], [address] [place] [address], [address], 3 15:09:56 hemoglobin A1C, fingerstic k 2022 023 [facility], [address] [place] [address], [address], 3 15:09:56 microalbum in/creatin ine, mass ratio, urine 2022 023 [email or web address] [facility], [address] [place] [address], [address], 4 08:03:27 BMP, serum or plasma 2022 023 [email or web address] [facility], [address] [place] [address], [address], 4 08:03:28 lipid panel, serum 2022 023 [email or web address] [facility], [address] [place] [address], [address], 4 08:03:28 hepatic function panel, serum 2022 023 [email or web address] [facility], [address] [place] [address], [address], 4 08:03:28 glucose, fingerstic k, blood 2022 023 [facility], [address] [place] [address], [address], 3 14:55:56 glucose, fingerstic k, blood 2022 023 [facility], [address] [place] [address], [address], 3 15:00:30 hemoglobin A1C, fingerstic k 2022 023 [facility], [address] [place] [address], [address], 3 15:00:30 microalbum in/creatin ine, mass ratio, urine 2022 023 [email or web address] [facility], [address] [place] [address], [address], 4 09:22:02 BMP, serum or plasma 2022 023 [email or web address] [facility], [address] [place] [address], [address], 4 09:22:02 lipid panel, serum 2022 023 [facility], [address] [place] [address], [address], 4 09:22:01 hepatic function panel, serum 2022 023 [facility], [address] [place] [address], [address], 4 09:22:01 glucose, fingerstic k, blood 2021 022 [facility], [address] [place] [address], [address], 2 14:40:04 hemoglobin A1C, fingerstic k 2021 022 [facility], [address] [place] [address], [address], 2 14:40:03 Referral None recorded. Procedures None recorded. Surgeries None recorded. Imaging None recorded. Medication Orders Novolog FlexPen U-100 Insulin aspart 100 unit/mL (3 mL) subcutaneo us [address] [facility], [address] [place] [address], [address], [place], [address], 4 15:25:01 Farxiga 10 mg tablet [address] [facility], [address] [place] [address], [address], [place], [address], 4 15:25:02 Lantus Solostar U-100 Insulin 100 unit/mL (3 mL) subcutaneo us pen [address] [facility], [address] [place] [address], [facility], [place], [address], 4 15:24:56 Ozempic 1 mg/dose (4 mg/3 mL) subcutaneo us pen injector 2023 024 [email or web address] 8 [facility], [address] [place] [address], [facility], [place], [address], 4 15:58:04 Lantus Solostar U-100 Insulin 100 unit/mL (3 mL) subcutaneo us pen 2022 023 [facility], [address] [place] [address], [facility], [place], [address], 3 15:12:29 Humalog KwikPen (U-100) Insulin 100 unit/mL subcutaneo us 2022 023 [email or web address] 150 [facility], [address] [place] [address], [address], [place], [address], 3 14:40:27 Victoza 3-Ajay 0.6 mg/0.1 mL (18 mg/3 mL) subcutaneo us pen injector [address] [facility], [address] [place] [address], [address], [place], [place], [address], 3 15:12:31 Farxiga 10 mg tablet [address] [facility], [address] [place] [address], [address], [place], [address], 3 15:05:58 Humalog KwikPen (U-100) Insulin 100 unit/mL subcutaneo us [address], [address] [place] [address], [facility], [place], [place], [address], 3 14:40:27 Lantus Solostar U-100 Insulin 100 unit/mL (3 mL) subcutaneo us pen [address] [facility], [address] [place] [address], [address], [place], [address], 3 15:05:59 Victoza 3-Ajay 0.6 mg/0.1 mL (18 mg/3 mL) subcutaneo us pen injector [address] [facility], [address] [place] [address], [facility], [place], [address], 3 15:06:03 Farxiga 10 mg tablet [address] [facility], [address] [place] [address], [address], [place], [address], 3 15:47:06 Humalog KwikPen (U-100) Insulin 100 unit/mL subcutaneo us [address], [address] [place] [address], [address], [place], [address], 3 14:40:27 Lantus Solostar U-100 Insulin 100 unit/mL (3 mL) subcutaneo us pen [address] [facility], [address] [place] [address], [address], [place], [address], 3 15:06:19 Victoza 3-Ajay 0.6 mg/0.1 mL (18 mg/3 mL) subcutaneo us pen injector [address] [facility], [address] [place] [address], [address], [place], [address], 3 15:06:17 Farxiga 10 mg tablet [address] [facility], [address] [place] [address], [address], [place], [address], 14:41:29 Humalog KwikPen (U-100) Insulin 100 unit/mL subcutaneo us [address], [address] [place] [address], [address], [place], [address], 3 14:40:27 Lantus Solostar U-100 Insulin 100 unit/mL (3 mL) subcutaneo us pen [address] [facility], [address] [place] [address], [facility], [place], [address], 2 14:41:28 Victoza 3-Ajay 0.6 mg/0.1 mL (18 mg/3 mL) subcutaneo us pen injector [address] [facility], [address] [place] [address], [address], [place], [address], 14:41:28 Patient TargetsNo targets recorded. Patient InstructionsNo instructions recorded. Reason for Referral None Reported. Results Created Date Observation Date Name Description Value Unit Range Abnormal Flag Note LastModifiedBy Organization Detail LastModifiedTime 09/23/20 22 09/23/2022 hemog lobin A1C, finge rstic k hemoglobin A1C % 8.7 % 4.0 - 5.6 Not Available [facility] [address] [place] [address], [address], 09/23/2022 14:10:19 09/23/20 22 09/23/2022 gluco se, finge rstic k, blood glucose, fingerstick 159 mg/dL 70 - 100 Not Available [facility] [address], [address], 09/23/2022 14:09:55 12/30/19 23 12/30/2022 hemog lobin A1C, finge rstic k hemoglobin A1C % 8.1 % 4.0 - 5.6 Not Available [facility] [address], [address], 12/30/2022 14:52:49 12/30/19 23 12/30/2022 gluco se, finge rstic k, blood glucose, fingerstick 214 mg/dL 70 - 100 Not Available [facility] [address], [address], 12/30/2022 14:52:14 05/06/20 23 05/06/2023 gluco se, finge rstic k, blood glucose, fingerstick 218 mg/dL 70 - 100 Not Available [facility] [address], [address], 05/06/2023 14:19:19 09/02/2009/02/2023 hemog lobin A1C, finge rstic k hemoglobin A1C % 9.6 % 4.0 - 5.6 Not Available [facility] [address], [address], 09/02/2023 14:20:15 09/02/20 23 09/02/2023 gluco se, finge rstic k, blood glucose, fingerstick 313 mg/dL 70 - 100 Not Available [facility] [address] [place] [address], [address], 09/02/2023 14:20:00 12/24/19 24 12/24/2023 HEPAT IC (LIVE R) PANEL AST 16 U/L 0-32 normal Not Available [facility] [address] [place] [address], [address], 12/24/2023 16:56:57 12/24/19 24 12/24/2023 HEPAT IC (LIVE R) PANEL ALT 12 U/L 0-33 normal Not Available [facility] [address] [place] [address], [address], 12/24/2023 16:56:57 12/24/19 24 12/24/2023 HEPAT IC (LIVE R) PANEL alkaline phosphatase 95 U/L 30-121 normal Not Available [facility] [address] [place] [address], [address], 12/24/2023 16:56:57 12/24/19 24 12/24/2023 HEPAT IC (LIVE R) PANEL total protein 7.8 g/dL 6.4-8. 3 normal Not Available [facility] [address] [place] [address], [address], 12/24/2023 16:56:57 12/24/19 24 12/24/2023 HEPAT IC (LIVE R) PANEL albumin 3.9 g/dL 3.5-5. 2 normal Not Available [facility] [address] [place] [address], [address], 12/24/2023 16:56:57 12/24/19 24 12/24/2023 HEPAT IC (LIVE R) PANEL bilirubin, total 0.2 mg/dL 0.1-1. 2 normal Not Available [facility] [address] [place] [address], [address], 12/24/2023 16:56:57 12/24/19 24 12/24/2023 HEPAT IC (LIVE R) PANEL bilirubin, direct <0.2 mg/dL 0.0-0. 3 normal Not Available [facility] [address] [place] [address], [address], 12/24/2023 16:56:57 12/24/19 24 12/24/2023 HEPAT IC (LIVE R) PANEL bilirubin, indirect see below mg/dL _(adeline c) 0.0-1. 0 normal Unabl e to calcu late Indir ect Bilir ubin. Not Available [facility] [address] [place] [address], [address], 12/24/2023 16:56:57 12/24/19 24 12/24/2023 LIPID PROFI LE HDL cholesterol 36 mg/dL 50-242 low Not Available [facility] [address] [place] [address], [address], 12/24/2023 16:56:58 12/24/19 24 12/24/2023 LIPID PROFI LE triglyceride s 203 mg/dL 0-149 high TRIGL YCERI DE RANGE S JACK L: < 150 BORDE RLINE HIGH: 150 - 199 HIGH: 200 - 499 VERY HIGH: > OR = 500 Not Available [facility] [address] [place] [address], [address], 12/24/2023 16:56:58 12/24/19 24 12/24/2023 LIPID PROFI LE cholesterol 107 mg/dL 0-199 normal IRMA STERO L (TOTA L) RANGE S KATHY ABLE: < 200 BORDE RLINE : 200 - 239 HIGHE R RISK: > 239 Not Available [facility] [address] [place] [address], [address], 12/24/2023 16:56:58 12/24/19 24 12/24/2023 LIPID PROFI LE LDL cholesterol 30 mg/dL _(adeline c) 0-99 normal LDL IRMA STERO L RANGE S OPTIM AL: < 100 NEAR/ ABOVE OPTIM AL: 100 - 129 BORDE RLINE HIGH: 130 - 159 HIGH: 160 - 189 VERY HIGH: > OR = 190 Not Available [facility] [address] [place] [address], [address], 12/24/2023 16:56:58 12/24/19 24 12/24/2023 BASIC METAB OLIC PANEL glucose 117 mg/dL 74-100 high Not Available [facility] [address] [place] [address], [address], 12/24/2023 16:57:00 12/24/19 24 12/24/2023 BASIC METAB OLIC PANEL blood urea nitrogen 17 mg/dL 6-20 normal Not Available [facility] [address] [place] [address], [address], 12/24/2023 16:57:00 12/24/19 24 12/24/2023 BASIC METAB OLIC PANEL creatinine 1.13 mg/dL 0.50-0 .95 high Not Available [facility] [address] [place] [address], [address], 12/24/2023 16:57:00 12/24/19 24 12/24/2023 BASIC METAB OLIC PANEL BUN/creatini ne ratio 15 (calc ) 10-20 normal Not Available [facility] [address] [place] [address], [address], 12/24/2023 16:57:00 12/24/19 24 12/24/2023 BASIC METAB OLIC PANEL sodium 139 mmol/ L 136-14 5 normal Not Available [facility] [address] [place] [address], [address], 12/24/2023 16:57:00 12/24/19 24 12/24/2023 BASIC METAB OLIC PANEL potassium 4.6 mmol/ L 3.4-5. 0 normal Not Available [facility] [address] [place] [address], [address], 12/24/2023 16:57:00 12/24/19 24 12/24/2023 BASIC METAB OLIC PANEL chloride 105 mmol/ L 98-107 normal Not Available [facility] [address] [place] [address], [address], 12/24/2023 16:57:00 12/24/19 24 12/24/2023 BASIC METAB OLIC PANEL carbon dioxide 24 mmol/ L 22-31 normal Not Available [facility] [address] [place] [address], [address], 12/24/2023 16:57:00 12/24/19 24 12/24/2023 BASIC METAB OLIC PANEL anion gap 10 (calc ) 7-25 normal Not Available [facility] [address] [place] [address], [address], 12/24/2023 16:57:00 12/24/19 24 12/24/2023 BASIC METAB OLIC PANEL calcium 9.3 mg/dL 8.6-10 .2 normal Not Available [facility] [address] [place] [address], [address], 12/24/2023 16:57:00 12/24/19 24 12/24/2023 BASIC METAB OLIC PANEL GFR 57 >= 60 abnormal NOT E New calcu latio n for GFR (CKD- EPI 2020) is formu lated witho ut race adjus tment facto rs at the [facility] menda tion of the Megan Magdaleno y Elmer atisaiah and [facility] Nephr o[facility]y . This calcu latio n has not been valid ated in pregn ant women . For pedia tric patie nts refer to https ://cortes flanagan.sandy art/pr leny colonal s/KDO QI/gf r_cal culat orPed Not Available [facility] [address] [place] [address], [address], 12/24/2023 16:57:00 12/24/19 24 12/24/2023 MICRO ALBUM IN/CR EAT RATIO microalbumin , random 12 mg/L 0-19 normal Not Available [facility] [address] [place] [address], [address], 12/24/2023 17:04:15 12/24/19 24 12/24/2023 MICRO ALBUM IN/CR EAT RATIO creatinine,u r,random 94 mg/dL normal NO JACK L RANGE ESTAB LISHE D FOR RANDO M URINE . Not Available [facility] [address] [place] [address], [address], 12/24/2023 17:04:15 12/24/19 24 12/24/2023 MICRO ALBUM IN/CR EAT RATIO MA/creatinin e ratio see below mcg/m g_cre at 0-29 normal Unabl e to calcu late micro album in/cr eatin ine ratio . Not Available [facility] [address] [place] [address], [address], 12/24/2023 17:04:15 12/24/19 24 12/24/2023 hemog lobin A1C, finge rstic k hemoglobin A1C % 9.6 % 4.0 - 5.6 Not Available [facility] [address] [place] [address], [address], 12/24/2023 14:59:59 12/24/19 24 12/24/2023 gluco se, finge rstic k, blood glucose, fingerstick 168 mg/dL 70 - 100 Not Available [facility] [address] [place] [address], [address], 12/24/2023 14:59:46 Result Notes None recorded. Problems No Known Problems Medical Equipment None Reported. Allergies Allergen ID Allergen Name Allergen Category Reaction Reaction Severity Criticality Documentation Date Start Date Code Code System Note Provider Name and Address Organization Details Recorded Time 863706 morphine sulfate medicatio n Not available Not available Not available 10/09/20162006 36047 RxNorm Comme nt: Creat ed By: Daniel eth;C reate d Date: 2006 3:24: 04 PM; Not Available [facility] 6 11:27:47 700311 codeine medicatio n Not available Not available Not available 10/09/20162006 2670 RxNorm Comme nt: Creat ed By: Barrett and Jesse Barragan reate d Date: 2006 3:23: 21 PM; Not Available [facility] 6 13:16:43 159254 amoxicill in medicatio n Not available Not available Not available 06/12/2021 723 [facility] 14:18:35 130316 acetamino phen / oxycodone medicatio n Not available Not available Not available 06/12/2021 00418 3 [facility] 14:18:49 Medications Name Sig Start Date Stop Date Status Note LastModified by Organization Details LastModified Time glmp (tabs) in ssls active Not Available Not Available Not Available furosemid e 40 mg tablet Take 1 tablet every day by oral route. active Not Available Not Available No t Available fluconazo le 100 mg tablet 10/09 completed Not Available Not Available Not Available carvedilo l 6.25 mg tablet Take 1 tablet twice a day by oral route. active Not Available Not Available No t Available gabapenti n 600 mg tablet active Not Available Not Available Not Available doxycycli ne hyclate 100 mg capsule active Not Available Not Available Not Available clindamyc in HCl 300 mg capsule active Not Available Not Available Not Available trazodone 50 mg tablet Take 1 tablet every day by oral route. 01/08 completed Not Available Not Available Not Available glyburide 5 mg tablet Two times a day 03/12 completed Duration : 30 days;Akira quency: bid;Medi cation Descript ion: glyburid e; Dosage:2 ; Route:or al; refills: 12; Quantity :120 tablet Not Available Not Available Not Available pravastat in 40 mg tablet active Not Available Not Available Not Available ibuprofen 800 mg tablet Take 1 tablet every day by oral route. 02/23 /2022 completed Not Available Not Available Not Available ofloxacin 0.3 % eye drops active Not Available Not Available Not Available metoprolo l tartrate 100 mg tablet active Not Available Not Available Not Available fluconazo le 150 mg tablet active Not Available Not Available Not Available sulfameth oxazole 400 mg-trimet hoprim 80 mg tablet active Not Available Not Available No t Available fluconazo le 200 mg tablet 10/09 completed Not Available Not Available Not Available cefepime 2 gram solution for injection active Not Available Not Available No t Available ondansetr on HCl 4 mg tablet active Not Available Not Available No t Available Lantus U-100 Insulin 100 unit/mL subcutane ous solution 75 units Bedtime 03/12 completed Instruct ions: 20U;Freq uency: hs;Medic ation Descript ion: insulin glargine ; Route:mcfarland bcutaneo us; refills: 0 Not Available Not Available Not Available clindamyc in HCl 150 mg capsule active Not Available Not Available Not Available diphenoxy late-atro pine 2.5 mg-0.025 mg tablet Take 1 tablet every day by oral route. active Not Available Not Available No t Available metronida zole 500 mg tablet 01/08 completed Not Available Not Available Not Available clopidogr el 75 mg tablet active Not Available Not Available Not Available sulfameth oxazole 800 mg-trimet hoprim 160 mg tablet TAKE 1 TABLET BY MOUTH TWICE DAILY active Not Available Not Available No t Available hydrocodo ne 10 mg-acetam inophen 325 mg tablet Take 2 tablets every 6 hours by oral route. active Not Available Not Available No t Available tramadol 50 mg tablet Take 1 tablet every 6 hours by oral route. active Not Available Not Available No t Available spironola ctone 25 mg tablet active Not Available Not Available No t Available carvedilo l 3.125 mg tablet active Not Available Not Available No t Available lamotrigi ne 25 mg tablet active Not Available Not Available Not Available isosorbid e mononitra te ER 60 mg tablet,ex tended release 24 hr Take 1 tablet every day by oral route. active Not Available Not Available No t Available hydromorp lea 2 mg tablet TAKE ONE TABLET BY MOUTH EVERY 4 HOURS NEEDED FOR moderate TO SEVERE pain MAY CAUSE DROWSINE SS 01/08 completed Not Available Not Available Not Available lorazepam 0.5 mg tablet Take 1 tablet every day by oral route as needed. active Not Available Not Available No t Available trazodone 100 mg tablet active Not Available Not Available Not Available OneTouch Ultra Test strips As Directed 06/12 completed Instruct ions: for diabetes , check 1 time daily ;Frequen cy: as direct.; Medicati on Descript ion: Supplies ; Dosage:1 ; refills: 12; Quantity :100 Not Available Not Available Not Available doxycycli ne monohydra te 100 mg capsule 01/08 completed Not Available Not Available Not Available cephalexi n 500 mg capsule active Not Available Not Available Not Available erythromy kelly 5 mg/gram (0.5 %) eye ointment active Not Available Not Available Not Available nitroglyc guerda 0.4 mg sublingua l tablet active Not Available Not Available Not Available hydroxyzi ne HCl 25 mg tablet active Not Available Not Available No t Available nystatin 100,000 unit/gram topical powder 01/08 completed Not Available Not Available Not Available vancomyci n 10 gram intraveno us solution 01/08 completed Not Available Not Available Not Available levofloxa kelly 500 mg tablet active Not Available Not Available No t Available levofloxa kelly 750 mg tablet active Not Available Not Available No t Available Vitamin D2 1,250 mcg (50,000 unit) capsule Take 1 capsule every week by oral route. 01/08 completed Not Available Not Available Not Available ondansetr on 4 mg disintegr ating tablet Place 2 tablets every 6 hours by translin gual route. 01/08 completed Not Available Not Available Not Available Lortab 5 mg-500 mg tablet Every six hours 01/08 completed Frequenc y: q6h;Alt Frequenc y: prn;Medi cation Descript ion: acetamin ophen-hy drocodon e; Dosage:1 ; Route:or al; refills: 0; Quantity :20 tablet Not Available Not Available Not Available atenolol 50 mg tablet Bedtime active Duration : 30 days;Akira quency: hs;Medic ation Descript ion: atenolol ; Dosage:1 ; Route:or al; refills: 0; Quantity :30 tablet Not Available Not Available Not Available ramipril 5 mg capsule active Not Available Not Available Not Available ramipril 10 mg capsule Take 1 capsule every day by oral route. 01/08 completed Not Available Not Available Not Available insulin lispro (U-100) 100 unit/mL subcutane ous pen Inject by subcutan eous route for 21 days. 09/14 completed Not Available Not Available Not Available ezetimibe 10 mg tablet Take 1 tablet every day by oral route. active Not Available Not Available No t Available Novolog FlexPen U-100 Insulin aspart 100 unit/mL (3 mL) subcutane ous INJECT 28 UNITS UNDER THE SKIN DAILY BEFORE MEALS 2-3 TIMES PER DAY. MAXIMUM OF 80 UNITS PER DAY KEEP IN REFRIGER ATOR active Not Available Not Available No t Available minocycli ne 100 mg tablet Take 1 tablet every 12 hours by oral route. 01/08 completed Not Available Not Available Not Available rosuvasta tin 20 mg tablet Take 1 tablet every day by oral route. active Not Available Not Available No t Available daptomyci n 500 mg intraveno us solution 01/08 completed Not Available Not Available Not Available metoprolo l tartrate 25 mg tablet 01/08 completed Not Available Not Available Not Available duloxetin e 60 mg capsule,d elayed release active Not Available Not Available Not Available pregabali n 200 mg capsule Take 1 capsule every day by oral route. active Not Available Not Available No t Available urea 40% bid 01/08 completed Not Available Not Available Not Available insulin glargine 70 units at bedtime 03/12 completed Not Available Not Available Not Available Cymbalta active Medicati on Descript ion: duloxeti ne hydrochl oride; Route:or al; refills: 0 Not Available Not Available Not Available Lyrica active Medicati on Descript ion: pregabal in; Route:or al; refills: 0 Not Available Not Available Not Available Unifine Pentips 31 gauge x 1/4 needle 02/02 completed Not Available Not Available Not Available Januvia 100 mg tablet Daily 03/12 completed Frequenc y: daily;Me dication Descript ion: sitaglip tin; Dosage:1 ; Route:or al; refills: 0 Not Available Not Available Not Available Lantus Solostar U-100 Insulin 100 unit/mL (3 mL) subcutane ous pen INJECT 90 UNITS SUBCUTAN EOUSLY AT BEDTIME active Not Available Not Available No t Available prasugrel HCl 10 mg tablet Take 1 tablet every day by oral route. 01/08 completed Not Available Not Available Not Available liragluti de 1.8 mg daily 01/08 completed Not Available Not Available Not Available OneTouch Delica Lancets 33 gauge Daily active Instruct ions: dx 250.00 check BS 1 time daily;Fr equency: daily;Me dication Descript ion: Supplies ; Dosage:1 ; refills: 0 Not Available Not Available Not Available BD Ultra-Fin e Michelle Pen Needle 32 gauge x 5/32 USE 4 DAILY WITH INSULIN active Not Available Not Available No t Available Teflaro 600 mg intraveno us solution 01/08 completed Not Available Not Available Not Available Victoza 3-Ajay 0.6 mg/0.1 mL (18 mg/3 mL) subcutane ous pen injector Inject 1.8 mg every day by subcutan eous route in the evening for 30 days. active Not Available Not Available No t Available Farxiga 10 mg tablet TAKE 1 TABLET EVERY DAY BY ORAL ROUTE IN THE MORNING active Not Available Not Available No t Available Estroven Bedtime 01/08 completed Frequenc y: hs;Medic ation Descript ion: miscella neous; Route:or al; refills: 0 Not Available Not Available Not Available OneTouch Ultra Blue Test Strip USE 1 STRIP TO CHECK GLUCOSE THREE TIMES DAILY 06/12 completed Not Available Not Available Not Available Unifine Pentips 33 gauge x 5/32 needle USE 4 DAILY WITH INSULIN 2022 active Not Available Not Available Not Avai lable Unifine Pentips 32 gauge x 1/4 needle use one daily 02/02 completed Not Available Not Available Not Available Xarelto 2.5 mg tablet active Not Available Not Available Not Available Ozempic 1 mg/dose (4 mg/3 mL) subcutane ous pen injector INJECT 1 MG SUBCUTAN EOUSLY ONCE A WEEK IN THE EVENING KEEP IN REFRIGER ATOR active Not Available Not Available No t Available Dexcom G7 Sensor device active Not Available Not Available Not Available Vitals Date Recorded Body height Body mass index (BMI) Body weight Heart rate Systolic blood pressure Diastolic blood pressure Provider Name and Address Organization Details Last Updated DateTime 2 167.64 cm 47.6 kg/m2 876953. 75 g 76 /min 106 mm[Hg] 62 mm[Hg] Suzanna Moore [facility] 2 14:06:58 Date Recorded Body height Body mass index (BMI) Body weight Heart rate Systolic blood pressure Diastolic blood pressure Provider Name and Address Organization Details Last Updated DateTime 3 167.64 cm 46.8 kg/m2 747912. 79 g 83 /min 130 mm[Hg] 76 mm[Hg] Debra Reed [facility] 3 14:47:32 Date Recorded Body height Heart rate Systolic blood pressure Diastolic blood pressure Provider Name and Address Organization Details Last Updated DateTime 05/06/2023 167.64 cm 91 /min 130 mm[Hg] 62 mm[Hg] Geovani David [facility] 05/06/2023 14:16:53 Date Recorded Body height Heart rate Systolic blood pressure Diastolic blood pressure Provider Name and Address Organization Details Last Updated DateTime 09/02/2023 167.64 cm 90 /min 125 mm[Hg] 60 mm[Hg] [facility] 09/02/2023 14:18:55 Date Recorded Body height Body mass index (BMI) Body weight Heart rate Systolic blood pressure Diastolic blood pressure Provider Name and Address Organization Details Last Updated DateTime 4 167.64 cm 46 kg/m2 409222. 83 g 95 /min 124 mm[Hg] 62 mm[Hg] [facility] 4 14:57:32 Social History Question Answer Notes LastModified by Organizat ion Details LastModified Time Tobacco Smoking Status Former Smoker Vesna Chamberlain [facility] 03/12/2021 14:46:35 What Was The Date Of Your Most Recent Tobacco Screening? 10/09/2021 [email or web address] Information not available 10/09/2021 How Many Years Have You Smoked Tobacco? 25 [email or web address] Information not available 03/12/2021 Sex: Female Functional Status None recorded. Mental Status None recorded. Family History Nothing Reported. 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 Condition Response Diabetes Y Heart Attack ([place]) Y Gynecological HistoryNo gynecological history recorded. Obstetrics History GPAL:G 0 P 0 0 0 0 Past Encounters Encounter ID Performer Location Encounter Start Date Encounter Closed Date Diagnosis/Indication Diagnosis SNOMED-CT Code Diagnosis ICD10 Code Diagnosis Note [id number] ROBBY BARRAGAN MD [facility] [address] [place] [address] 03/12/2021 14:15:47 03/12/2021 16:29:29 Uncontrolled type 2 diabetes mellitus 002403050 E11.65 A1c in the office today of 7.2% Random point-of-c are blood glucose Goal A1c less than 7% I had a lengthy discussion with patient about the deleteriou s consequenc es of uncontroll ed hyperglyce rekha in the form of microvascu lar complicati ons such as diabetic retinopath y, worsening of diabetic nephropath y, diabetic neuropathy and macrovascu lar complicati ons such as coronary artery disease, peripheral arterial disease and stroke. We had a discussion about healthy diabetic diet. Provided with educationa l materials from [employer] about hypoglycem ia symptom recognitio n and treatment, insulin therapy, hyperglyce rekha. Recommenda tions: Continue Lantus 75 units under the skin daily every bedtime Change Humalog to the following scale before dinner Less than 70: No insulin 71? 140: 8 units 141? 200: 12 units 201? 300:16 unit Above 300:20 units Continue Farxiga 10 mg every a.m. 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 Peripheral neuropathy due to type 2 diabetes mellitus [id number] 107 E11.42 Counseled about the importance of glycemic control to slow further progressio n of diabetic neuropathy /diabetic/ Charcot's joint obtained of a dilated. Proliferat tacos retinopathy due to type 2 diabetes mellitus [id number] 109 E11.3599 Obtain diabetic dilated eye exam from Dr. adams office Emphasized on the importance of bringing her glucose meter with her to the office next office visit. Patient verbalized understand ing and agreed with the above mentioned plan of care. I would like to thank Dr. Lynch for the opportunit y to participat e in the care of this patient. [id number] ROBBY BARRAGAN MD [facility] [address] [place] [address] 06/12/2021 13:51:24 06/13/2021 10:27:33 Uncontrolled type 2 diabetes mellitus [id number] E11.65 A1c in the office today of 7.8 up from 7.2% Random point-of-c are blood glucose 136 Goal A1c less than 7% Worsening glycemic control i.e. 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 We had a discussion about healthy diabetic diet. Recommenda tions: Continue Lantus 75 units under the skin daily every bedtime Change Humalog to the following scale before dinner Less than 70: No insulin 71? 140: 8 units 141? 200: 12 units 201? 300:16 unit Above 300:20 units Continue Farxiga 10 mg every a.m. 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 Hyperlipidemia [id number] E78.5 Lipid panel and LFTs today Further management to be determined as appropriat e Essential hypertension [id number] I10 Blood pressure of 104/62Cont inue current regimen Urinary ACR BMB today Patient verbalized understand ing and agreed with the above mentioned plan of care. [id number] ROBBY BARRAGAN MD [facility] [address] [place] [address] 10/09/2021 13:54:06 10/17/2021 14:01:40 Uncontrolled type 2 diabetes mellitus [id number] E11.65 A1c in the office today of 7.5 down from 7.8 up from 7.2% Random point-of-c are blood glucose 244 [ did not take her meal time insulin before lunch) Goal A1c less than 7% Improved glycemic control. I had a rediscussi on with patient about the deleteriou s consequenc es of uncontroll ed hyperglyce rekha in the form of microvascu lar complicati ons such as diabetic retinopath y, worsening of diabetic nephropath y, diabetic neuropathy and macrovascu lar complicati ons such as coronary artery disease, peripheral arterial disease and stroke. We had a discussion about healthy diabetic diet and adherence to her insulin instructio ns. Recommenda tions: Continue Lantus 75 units under the skin daily every bedtime Change Humalog to the following scale before dinner Less than 70: No insulin 71? 140: 8 units 141? 200: 12 units 201? 300:16 unit Above 300:20 units Continue Farxiga 10 mg every a.m. 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 [id number] ROBBY BARRAGAN MD [facility] [address] [place] [address] 01/08/2022 14:13:57 01/10/2022 13:07:42 Uncontrolled type 2 diabetes mellitus [id number] E11.65 A1c in the office today of 7.8 up from 7.5 down from 7.8 up from 7.2% Random point-of-c are blood glucose 244 [ did not take her meal time insulin before lunch) Goal A1c less than 7% Markedly worsening glycemic control. I had a rediscussi on with patient about the deleteriou s consequenc es of uncontroll ed hyperglyce rekha in the form of microvascu lar complicati ons such as diabetic retinopath y, worsening of diabetic nephropath y, diabetic neuropathy and macrovascu lar complicati ons such as coronary artery disease, peripheral arterial disease and stroke. We had a discussion about healthy diabetic diet and adherence to her insulin instructio ns. Recommenda tions: Increase Lantus 82 units under the skin daily every bedtime Increase Humalog to the following scale before dinner Less than 70: No insulin 71? 140: 10 units 141? 200: 14 units 201? 300:18 unit Above 300:22 units Continue Farxiga 10 mg every a.m. before breakfast Continue Victoza 1.8 mg subcutaneo us daily Check blood sugar 4 times before meals and at bedtime Blood pressure in the office today of 118/66 She is currently on statin therapy Provided with a code to share her sensor data with our clinic. [id number] ROBBY BARRAGAN MD [facility] [address] [place] [address] 04/09/2022 13:51:39 04/09/2022 15:09:29 Uncontrolled type 2 diabetes mellitus [id number] E11.65 A1c in the office today of 7.7 down from 7.8 up from 7.5 down from 7.8 up from 7.2% Random point-of-c are blood glucose 248 Goal A1c less than 7.5 % Improved mildly above goal glycemic control. I had a rediscussi on with patient about the deleteriou s consequenc es of uncontroll ed hyperglyce rekha in the form of microvascu lar complicati ons such as diabetic retinopath y, worsening of diabetic nephropath y, diabetic neuropathy and macrovascu lar complicati ons such as coronary artery disease, peripheral arterial disease and stroke. We had a rediscussi on about healthy diabetic diet and adherence to her insulin instructio ns. Recommenda tions: Increase Lantus 82 units under the skin daily every bedtime Increase Humalog to the following scale before dinner Less than 70: No insulin 71? 140: 10 units 141? 200: 14 units 201? 300:18 unit Above 300:22 units Continue Farxiga 10 mg every a.m. before breakfast Continue Victoza 1.8 mg subcutaneo us daily Check blood sugar 4 times before meals and at bedtime Blood pressure in the office today of 118/66Shkaren is currently on statin therapy Provided with a code to share her sensor data with our clinic. Hyperlipidemia [id number] E78.5 Lipid panel and LFTs todayConti nue current rosuvastat in therapy Instructed about the importance of low-choles terol diet Further management to be determined as appropriat e Peripheral neuropathy due to type 2 diabetes mellitus [id number] 107 E11.42 Counseled about the importance of glycemic control to slow further progressio n of diabetic neuropathy /diabetic/ Charcot's jointConti nue to follow with podiatry Patient verbalized understand ing and agreed with the above mentioned plan of care. [id number] ROBBY BARRAGAN MD [facility] [address] [place] [address] 07/09/2022 14:17:43 07/09/2022 15:28:43 Uncontrolled type 2 diabetes mellitus [id number] E11.65 A1c in the office today of 7.5 down from 7.7 down from 7.8 up from 7.5 down from 7.8 up from 7.2% Random point-of-c are blood glucose Goal A1c less than 7.5 % Improved mildly above goal glycemic control. Encouraged to wear sensor and scan more [ sensitivit y use only 21%] I had a rediscussi on with patient about the deleteriou s consequenc es of uncontroll ed hyperglyce rekha in the form of microvascu lar complicati ons such as diabetic retinopath y, worsening of diabetic nephropath y, diabetic neuropathy and macrovascu lar complicati ons such as coronary artery disease, peripheral arterial disease and stroke. We had a rediscussi on about healthy diabetic diet and adherence to her insulin instructio ns. Recommenda tions: Continue Lantus 82 units under the skin daily every bedtime Continue Humalog to the following scale before dinner Less than 70: No insulin 71? 140: 10 units 141? 200: 14 units 201? 300:18 unit Above 300:22 units Continue Farxiga 10 mg every a.m. before breakfast Continue Victoza 1.8 mg subcutaneo us daily Check blood sugar 4 times before meals and at bedtime Blood pressure in the office today of 118Shkaren is currently on statin therapy [id number] ROBBY BARRAGAN MD [facility] [address] [place] [address] 09/23/2022 13:47:51 09/23/2022 15:29:28 Uncontrolled type 2 diabetes mellitus [id number] E11.65 A1c in the office today of 8.7 from 7.5Random point-of-c are blood glucose 159Goal A1c less than 7.5 % Worsening above goal glycemic control. I had a rediscussi on with patient about the deleteriou s consequenc es of uncontroll ed hyperglyce rekha in the form of microvascu lar complicati ons such as diabetic retinopath y, worsening of diabetic nephropath y, diabetic neuropathy and macrovascu lar complicati ons such as coronary artery disease, peripheral arterial disease and stroke. We had a rediscussi on about healthy diabetic diet and adherence to her insulin instructio ns. Recommenda tions: Continue Lantus 80 units under the skin daily every bedtime Continue Humalog to the following scale before dinner Less than 70: No insulin 71? 140: 10 units 141? 200: 14 units 201? 300:18 unit Above 300:22 units Continue Farxiga 10 mg every a.m. before breakfast Continue Victoza 1.8 mg subcutaneo us daily Check blood sugar 4 times before meals and at bedtime Blood pressure in the office today of 118María is currently on statin therapy [id number] ROBBY BARRAGAN MD [facility] [address] [place] [address] 12/30/2022 14:34:01 12/30/2022 15:52:18 Uncontrolled type 2 diabetes mellitus [id number] E11.65 A1c in the office today of 8.1 down from 8.7 from 7.5Random point-of-c are blood glucose 214Goal A1c less than 7.5 % Commended patient on improved glycemic control I had a rediscussi on with patient about the deleteriou s consequenc es of uncontroll ed hyperglyce rekha in the form of microvascu lar complicati ons such as diabetic retinopath y, worsening of diabetic nephropath y, diabetic neuropathy and macrovascu lar complicati ons such as coronary artery disease, peripheral arterial disease and stroke. We had a rediscussi on about healthy diabetic diet and adherence to her insulin instructio ns. Recommenda tions: Continue Lantus 80 units under the skin daily every bedtime Further increase Humalog to the following scale before breakfast lunch and dinnerLess than 70: No insulin 71? 140: 10 units 141? 200: 14 units 201? 300:18 unit Above 300:22 units Continue Farxiga 10 mg every a.m. before breakfast Continue Victoza 1.8 mg subcutaneo us daily Check blood sugar 4 times before meals and at bedtime Blood [place] [address]Shkaren is currently on statin therapy Hyperlipidemia [id number] E78.5 Lipid panel and LFTsLabs to be done at an outside facility and faxed to our office for patient requestCon tinue current rosuvastat in therapyIns tructed about the importance of low-choles terol dietFurthe r management to be determined as appropriat e [id number] ROBBY BARRAGAN MD [facility] [address] [place] [address] 05/06/2023 13:58:15 05/06/2023 14:58:33 Uncontrolled type 2 diabetes mellitus [id number] E11.65 A1c in the office today of 7.9 on 03/30/2023R andom point-of-c are blood glucose 218Goal A1c less than 7.5 % Stable above goal glycemic control I had a rediscussi on with patient about the deleteriou s consequenc es of uncontroll ed hyperglyce rekha in the form of microvascu lar complicati ons such as diabetic retinopath y, worsening of diabetic nephropath y, diabetic neuropathy and macrovascu lar complicati ons such as coronary artery disease, peripheral arterial disease and stroke. We had a rediscussi on about healthy diabetic diet and adherence to her insulin instructio ns. Recommenda tions: Continue Lantus 80 units under the skin daily every bedtime Continue Humalog to the following scale before breakfast lunch and dinnerLess than 70: No insulin 71? 140: 10 units 141? 200: 14 units 201? 300:18 unit Above 300:22 units Continue Farxiga 10 mg every a.m. before breakfast Continue Victoza 1.8 mg subcutaneo us daily Check blood sugar 4 times before meals and at bedtime Blood pressure in the office today of 130/62She is currently on statin therapy Hyperlipidemia [id number] E78.5 Lipid panel and LFTs from outside facility on 03/30/2023 reviewed [LDL of 97.8, triglyceri vivian of 234 and total cholestero l 164 and HDL cholestero l of 38.Continu e current rosuvastat in therapyIns tructed about the importance of low-choles terol dietPatien t verbalized understand ing and agreed with the above mentioned plan of care. [id number] ROBBY BARRAGAN MD [facility] [address] [place] [address] 09/02/2023 14:09:48 09/03/2023 04:53:33 Uncontrolled type 2 diabetes mellitus [id number] E11.65 A1c in the office today of 9.6 up from 7.9 on 03/30/2023R andom point-of-c are blood glucose 330Goal A1c less than 7.5 % Significan tly worsening glycemic control [grieving over her parents passing) I had a rediscussi on with patient about the deleteriou s consequenc es of uncontroll ed hyperglyce rekha in the form of microvascu lar complicati ons such as diabetic retinopath y, worsening of diabetic nephropath y, diabetic neuropathy and macrovascu lar complicati ons such as coronary artery disease, peripheral arterial disease and stroke. We had a rediscussi on about healthy diabetic diet and adherence to her insulin instructio ns. Recommenda tions: Continue Lantus 80 units under the skin daily every bedtime Continue Lantus 80 units under the skin daily every bedtime Continue Humalog to the following scale. Before breakfast and lunch Less than 70: No insulin 71? 140: 8 units 141? 200: 10 units 201? 300: 12 unit Above 300:16 units Before dinner Less than 70: No insulin 71? 140: 14 units 141? 200: 18 units 201? 300: 22 unit Above 300: 26 units Continue Farxiga 10 mg every a.m. before breakfast Continue Victoza 1.8 mg subcutaneo us daily Check blood sugar 4 times before meals and at bedtime. Check blood sugar 4 times before meals and at bedtimeBlo od pressure in the office today of 130/62She is currently on statin therapy Peripheral neuropathy due to type 2 diabetes mellitus [id number] 107 E11.42 Severe peripheral neuropathy Counseled about the importance of glycemic control to slow further progressio n of diabetic neuropathy /diabetic/ Charcot's jointConti nue to follow with podiatry Hyperlipidemia [id number] E78.5 Lipid panel and LFTs from outside facility on 03/30/2022 reviewed [LDL of 97.8, triglyceri vivian of 234 and total cholestero l 164 and HDL cholestero l of 38.Continu e current rosuvastat in therapyIns tructed about the importance of low-choles terol dietPatien t verbalized understand ing and agreed with the above mentioned plan of care. [id number] ROBBY BARRAGAN MD [facility] [address] [place] [address] 12/24/2023 14:47:11 12/24/2023 15:40:35 Uncontrolled type 2 diabetes mellitus [id number] E11.65 A1c in the office today of 9.6 unchanged 9.6Random point-of-c are blood glucoseGoa l A1c less than 7.5 % Significan tly worsening glycemic control [grieving over her parents passing) I had a rediscussi on with patient about the deleteriou s consequenc es of uncontroll ed hyperglyce rekha in the form of microvascu lar complicati ons such as diabetic retinopath y, worsening of diabetic nephropath y, diabetic neuropathy and macrovascu lar complicati ons such as coronary artery disease, peripheral arterial disease and stroke. We had a rediscussi on about healthy diabetic diet and adherence to her insulin instructio ns. Recommenda tions:Incr ease Lantus to 90 units every bedtime Increase NovoLog to 28 units before first meal and 28 units before second meal Finish your current Victoza 1.8 mg subcu daily start Ozempic 0.5 mg subcu continue rest of diabetes regimen Labs today Check blood sugar 4 times before meals and at bedtimeUp- to-date with diabetic dilated eye exam i.e. Dr. adams Hyperlipidemia [id number] E78.5 Lipid panel and LFTs from outside facility on 03/30/2022 reviewed [LDL of 97.8, triglyceri vivian of 234 and total cholestero l 164 and HDL cholestero l of 38.Continu e current rosuvastat in therapyIns tructed about the importance of low-choles terol dietFastin g lipid panel and LFTs toPatient verbalized understand ing and agreed with the above mentioned plan of care. Peripheral neuropathy due to type 2 diabetes mellitus [id number] 107 E11.42 Severe peripheral neuropathy Recounsele d about the importance of glycemic control to slow further progressio n of diabetic neuropathy /diabetic/ Charcot's jointConti nue to follow with podiatry Essential hypertension [id number] I10 Blood pressure of 124/62Cont inue current regimenUri nary ACR &BMB todayPatie nt verbalized understand ing and agreed with the above mentioned plan of care. Health Concerns Section Related Observation LastModified by Organization Detai ls LastModified Time None Recorded Concern Status LastModified by Organization Details LastModified Time None Recorded Advance Directives Directive None Recorded Payers Encounter Date Sequence Insurance Name Policy Number Policy [place] Covered Member ID [place] Member ID Guarantor Name 09/23/2022 1 [place] Bee B Isaiah [id number] Bee B Isaiah 09/23/2022 2 [place] [place] [id number] Bee B Isaiah [id number] Bee B Isaiah 12/30/2022 1 [place] Bee B Isaiah [id number] Bee B Isaiah 12/30/2022 2 [place] [id number] Bee B Isaiah [id number] Bee B Isaiah 05/06/2023 2 [place]) [id number] Bee B Isaiah [id number] Bee B Isaiah 05/06/2023 1 [employer] (MEDICARE REPLACEMENT/A DVANTAGE - PPO) Bee B Isaiah [id number] Bee B Isaiah 09/02/2023 2 [place] [facility] MEDICAID (HMO) [id number] Bee Hairi [id number] Bee B Isaiah 09/02/2023 1 [employer] (MEDICARE REPLACEMENT/A DVANTAGE - PPO) Bee Hairi [id number] Bee B Isaiah 12/24/2023 1 [employer] (MEDICARE REPLACEMENT/A DVANTAGE - PPO) Bee Hairi [id number] Bee Hairi Notes Date Note Type Note Provider Name and Address Organization Details Recorded Time 09/23/2022 text/html 52-year-old female patient with a past medical history as detailed in the problem a significant for hypertension, hyperlipidemia on statin therapy, uncontrolled insulin requiring type 2 diabetes complicated by proliferative diabetic retinopathy, diabetic nephropathy and peripheral diabetic neuropathy/left diabetic foot seen in the office today for 3 months follow-up uncontrolled insulin requiring type 2 diabetes Insulin: Lantus 80 units every bedtime Humalog to the following scale before dinner Less than 70: No insulin 71? 140: 8 units 141? 200: 12 units 201? 300:16 unit Above 300:20 units Farxiga 10 mg every a.m. before breakfast She also takes Victoza 1.8 mg subcutaneous. Ran out of his Victoza Previously on metformin which was discontinued i.e. stomach upset Previously on glipizide which was discontinued Self monitoring of blood glucose readings: none Diabetes related eye disease: Known to have proliferative diabetic retinopathy. Last seen by Dr. malagon Diabetes related kidney disease: Stage III chronic kidney disease with most recent use of 54 Diabetic neuropathy: Bilateral peripheral diabetic neuropathy/left diabetic foot is status post left foot amputation. History of coronary artery disease/[place] status post cardiac stenting. ROBBY BARRAGAN MD [address] [place] [address], [phone], [facility] 09/23/2022 14:40:38 12/30/2022 text/html 52-year-old female patient with a past medical history as detailed in the problem a significant for hypertension, hyperlipidemia on statin therapy, uncontrolled insulin requiring type 2 diabetes complicated by proliferative diabetic retinopathy, diabetic nephropathy and peripheral diabetic neuropathy/left diabetic foot seen in the office today for 3 months follow-up uncontrolled insulin requiring type 2 diabetes Insulin: Lantus 80 units every bedtime Humalog to the following scale before dinnerLess than 70: No insulin 71? 140: 10 units 141? 200: 14 units 201? 300:18 unit Above 300:22 unitsReported recently taking her mealtime insulin twice before lunch and dinnerFarxiga 10 mg every a.m. before breakfast She also takes Victoza 1.8 mg subcutaneous. Ran out of his Victoza Previously on metformin which was discontinued i.e. stomach upset Previously on glipizide which was discontinued Self monitoring of blood glucose readings: none Diabetes related eye disease: Known to have proliferative diabetic retinopathy. Last seen by Dr. malagon Diabetes related kidney disease: Stage III chronic kidney disease with most recent use of 54 Diabetic neuropathy: Bilateral peripheral diabetic neuropathy/left diabetic foot is status post left foot amputation. History of coronary artery disease/[place] status post cardiac stenting. ROBBY BARRAGAN MD [address] [place] [address], [phone], [facility] 12/30/2022 15:49:32 05/06/2023 text/html 52-year-old female patient with a past medical history as detailed in the problem a significant for hypertension, hyperlipidemia on statin therapy, uncontrolled insulin requiring type 2 diabetes complicated by proliferative diabetic retinopathy, diabetic nephropathy and peripheral diabetic neuropathy/left diabetic foot seen in the office today for 4 months follow-up uncontrolled insulin requiring type 2 diabetes Insulin: Lantus 80 units every bedtime Humalog to the following scale before breakfast lunch and dinner Less than 70: No insulin 71? 140: 10 units 141? 200: 14 units 201? 300:18 unit Above 300:22 units Farxiga 10 mg every a.m. before breakfast She also takes Victoza 1.8 mg subcutaneous. Ran out of his Victoza Previously on metformin which was discontinued i.e. stomach upset Previously on glipizide which was discontinued Self monitoring of blood glucose readings: none Diabetes related eye disease: Known to have proliferative diabetic retinopathy. Last seen by Dr. malagon Diabetes related kidney disease: Stage III chronic kidney disease with most recent use of 54 Diabetic neuropathy: Bilateral peripheral diabetic neuropathy/left diabetic foot is status post left foot amputation.Right foot ulceration currently following with Dr. Solo podiatryHistory of coronary artery disease/[place] status post cardiac stenting. ROBBY BARRAGAN MD [address] [place] [address], [phone], [facility] 05/06/2023 14:58:18 09/02/2023 text/html 53-year-old female patient with a past medical history as detailed in the problem a significant for hypertension, hyperlipidemia on statin therapy, uncontrolled insulin requiring type 2 diabetes complicated by proliferative diabetic retinopathy, diabetic nephropathy and peripheral diabetic neuropathy/left diabetic foot seen in the office today for 4 months follow-up uncontrolled insulin requiring type 2 diabetes Insulin: Lantus 80 units every bedtime Humalog to the following scale before breakfast lunch and dinner Less than 70: No insulin 71? 140: 10 units 141? 200: 14 units 201? 300:18 unit Above 300:22 units Farxiga 10 mg every a.m. before breakfast She also takes Victoza 1.8 mg subcutaneous. Ran out of his Victoza Previously on metformin which was discontinued i.e. stomach upset Previously on glipizide which was discontinued Reviewing her Dexcom G7 data on her cell phone showed time in target range of 7% GMI of 9.6 Time above 180: 37% Above 250: 56% Below 70 0%Admitted after her parents not eating well and not taking her insulin [takes her Lantus daily and maybe 1 dose of Humalog with dinner and frequently forgets her Farxiga)Self monitoring of blood glucose readings: none Diabetes related eye disease: Known to have proliferative diabetic retinopathy. Last seen by Dr. malagon Diabetes related kidney disease: Stage III chronic kidney disease with most recent use of 54 Diabetic neuropathy: Bilateral peripheral diabetic neuropathy/left diabetic foot is status post left foot amputation.Right foot ulceration currently following with Dr. Solo podiatry [healing closeHistory of coronary artery disease/[place] status post cardiac stenting. ROBBY BARRAGAN MD [address] [place] [address], [phone], [facility] 09/02/2023 15:16:38 12/24/2023 text/html 53-year-old female patient with a past medical history as detailed in the problem a significant for hypertension, hyperlipidemia on statin therapy, uncontrolled insulin requiring type 2 diabetes complicated by proliferative diabetic retinopathy, diabetic nephropathy and peripheral diabetic neuropathy/left diabetic foot seen in the office today for 4 months follow-up uncontrolled insulin requiring type 2 diabetes Insulin: Lantus 80 units every bedtime Humalog to the following scale before breakfast lunch and dinner Less than 70: No insulin 71? 140: 10 units 141? 200: 14 units 201? 300:18 unit Above 300:22 units Farxiga 10 mg every a.m. before breakfast She also takes Victoza 1.8 mg subcutaneous. Previously on metformin which was discontinued i.e. stomach upset Previously on glipizide which was discontinued Self monitoring of blood glucose readings: She is wearing Dexcom which we could not download today Diabetes related eye disease: Known to have proliferative diabetic retinopathy. Last seen by Dr. malagon Diabetes related kidney disease: Stage III chronic kidney disease with most recent use of 54 Diabetic neuropathy: Bilateral peripheral diabetic neuropathy/left diabetic foot is status post left foot amputation.Right foot ulceration currently following with Dr. Solo podiatry [healing closeHistory of coronary artery disease/[place] status post cardiac stenting. ROBBY BARRAGAN MD [address] [place] [address], [phone], [facility] 12/24/2023 15:35:11 OBGyn Episode No OBEpisode recorded.
--- NOTE | 2025-02-25 15:25 | PC.NURSE ---
Patients FSBS was 351.
--- NOTE | 2025-02-25 15:44 | HMH.EDGENADL ---
Discharge Plan Disposition Patient Disposition: Home, Self-Care Condition: Good Prescriptions Prescriptions: No Action aspirin 81 mg tablet,chewable 81 mg PO DAILY Qty: 90 3RF isosorbide mononitrate 60 mg tablet extended release 24 hr 60 mg PO DAILY Qty: 90 3RF metoprolol tartrate 100 mg tablet 100 mg PO BID Qty: 180 3RF ramipril 5 mg capsule 5 mg PO DAILY Qty: 90 3RF rosuvastatin 20 mg tablet 20 mg PO DAILY Qty: 90 3RF spironolactone 25 mg tablet 25 mg PO DAILY Qty: 90 3RF ranolazine 1,000 mg tablet extended release 12 hr 1,000 mg PO BID Qty: 60 5RF dapagliflozin propanediol 10 mg tablet 10 mg PO DAILY Qty: 90 3RF ondansetron HCl 4 mg tablet 4 mg PO Q8H PRN lorazepam 0.5 mg tablet 0.5 mg PO TID PRN (Reason: anxiety) Qty: 90 0RF (DME) Dexcom G7 Sensor Device See Rx Instructions .Route Qty: 3 5RF Rx Instructions: As directed duloxetine 60 mg capsule,delayed release(DR/EC) 60 mg PO BID Qty: 180 1RF insulin lispro [Humalog U-100 Insulin] 100 unit/mL solution 18 unit SQ AC 30 Days Qty: 16.2 2RF insulin glargine 100 unit/mL (3 mL) insulin pen 50 unit SQ BID Qty: 12 5RF hydroxyzine HCl 25 mg tablet 25 mg PO HS Qty: 30 2RF (DME) insulin syringe-needle U-100 [Sure Comfort Insulin Syringe] 0.5 mL 31 gauge x 5/16 syringe See Rx Instructions .ROUTE .MEDSUPPLY Qty: 500 1RF Rx Instructions: As directed pregabalin 200 mg capsule 200 mg PO BID Qty: 60 0RF promethazine 25 mg tablet 25 mg PO Q4-6H PRN (Reason: nausea and vomiting) Qty: 20 0RF tramadol 50 mg tablet 50 mg PO Q6H PRN (Reason: breakthrough pain, moderate) Qty: 120 0RF hydrocodone-acetaminophen 10-325 mg tablet 1 tab PO Q6H PRN (Reason: pain) Qty: 120 0RF trazodone 100 mg tablet 100 mg PO HS Qty: 90 0RF (DME) pen needle, diabetic [Unifine Pentips] 31 gauge x 5/16 needle See Rx Instructions .ROUTE .MEDSUPPLY Qty: 1200 1RF Rx Instructions: As directed Xarelto 2.5 mg tablet 2.5 mg PO BIDWMEAL Qty: 60 5RF ezetimibe 10 mg tablet 10 mg PO HS Qty: 90 1RF Referrals Follow up/Referrals: Diego Lynch MD [Primary Care Provider] - See instructions Activity Restrictions/Add. Instructions Additional Instructions/Restrictions: Monitor temperature. Seek treatment if fever develops. Follow-up immediately if new or worse symptoms worsen or no noticeable improvement over 48 hours. Increase fluids such as water, Gatorade, Powerade, juice or Pedialyte with limited formula/dietary in children No food is okay as long as you are drinking. Once ready to eat start bland such as bananas, rice, applesauce, toast. Contagious until no diarrhea, vomiting, fever times 48 hours without medication Avoid antidiarrheals unless told otherwise. Best to let the virus run its course. Follow-up immediately for new or worsening symptoms or no noticeable improvement over the next 48 hours. Clinical Impressions Clinical Impression: Nausea & vomiting Qualifiers: Vomiting type: unspecified Qualified Code(s): R11.2 - Nausea with vomiting, unspecified Diarrhea Qualifiers: Diarrhea type: unspecified type Qualified Code(s): R19.7 - Diarrhea, unspecified Instructions Patient Instructions: Diarrhea, DI for Nausea -- Adult, Nausea and Vomiting-Adult Print Language Print Language: Danish Discharge ED Provider: Edgardo Cruz Adult HPI <Jazmine Mondragon ([facility]), FRAMING MACHINE TENDER - Last Filed: 02/25/25 19:36> General Chief complaint: Nausea/Vomiting/Diarrhea Stated complaint: Vomitting, Diarr. Time Seen by Provider: 02/25/25 15:37 Mode of Arrival: Wheelchair Source of Information: Patient Description of Symptoms (Recalled from ER Triage Doc. by RN): PT REPORTS VOMITING AND DIARRHEA SINCE THURSDAY. PT REPORTS FSBS OVER 400. DENIES PAIN History of Present Illness HPI narrative: 54-year-old female presents for nausea, vomiting and diarrhea since with fingerstick over 400. Patient denies any pain or cramping Related Data Home Medications ?Medication ?Instructions ?Recorded ?Confirmed ondansetron HCl 4 mg tablet 4 mg PO Q8H PRN 09/01/24 01/16/25 Previous Rx's ?Medication ?Instructions ?Recorded lorazepam 0.5 mg tablet 0.5 mg PO TID PRN anxiety #90 tabs 07/25/24 blood-glucose sensor (Dexcom G7 #3 ea 07/29/24 Sensor device) aspirin 81 mg chewable tablet 81 mg PO DAILY HEART HEALTH #90 12/12/24 tabs isosorbide mononitrate 60 mg 60 mg PO DAILY #90 tabs 12/12/24 tablet,extended release 24 hr metoprolol tartrate 100 mg tablet 100 mg PO BID #180 tabs 12/12/24 ramipril 5 mg capsule 5 mg PO DAILY #90 caps 12/12/24 rosuvastatin 20 mg tablet 20 mg PO DAILY #90 tabs 12/12/24 spironolactone 25 mg tablet 25 mg PO DAILY #90 tabs 12/12/24 dapagliflozin propanediol 10 mg 10 mg PO DAILY #90 tabs 01/16/25 tablet ranolazine 1,000 mg 1,000 mg PO BID #60 tabs 01/16/25 tablet,extended release,12 hr duloxetine 60 mg capsule,delayed 60 mg PO BID #180 caps 01/31/25 release hydroxyzine HCl 25 mg tablet 25 mg PO HS For sleep #30 tabs 01/31/25 insulin glargine 100 unit/mL (3 50 unit (0.5 mL) SQ BID #12 mL 01/31/25 mL) subcutaneous pen insulin lispro 100 unit/mL 18 unit (0.18 mL) SQ AC 30 days 01/31/25 subcutaneous solution (Humalog #16.2 mL U-100 Insulin) insulin syringe-needle U-100 0.5 #500 ea 01/31/25 mL 31 gauge x 5/16 (Sure Comfort Insulin Syringe) pregabalin 200 mg capsule 200 mg PO BID #60 caps 01/31/25 promethazine 25 mg tablet 25 mg PO Q4-6H PRN nausea and 01/31/25 vomiting #20 tabs tramadol 50 mg tablet 50 mg PO Q6H PRN breakthrough 01/31/25 pain, moderate #120 tabs hydrocodone 10 mg-acetaminophen 1 tab PO Q6H PRN pain #120 tabs 03/19/25 325 mg tablet trazodone 100 mg tablet 100 mg PO HS #90 tabs 02/01/25 ezetimibe 10 mg tablet 10 mg PO HS #90 tabs 02/07/25 pen needle, diabetic 31 gauge x #1,200 ea 02/07/25 5/16 (Unifine Pentips) rivaroxaban 2.5 mg tablet (Xarelto) 2.5 mg PO BIDWMEAL #60 tabs 02/07/25 Allergies Allergy/AdvReac Type Severity Reaction Status Date / Time clopidogrel (From Plavix) Allergy Severe Hives Verified 01/16/25 14:44 amoxicillin (AMOXICILLIN) Allergy Unknown Unknown Verified 01/16/25 14:44 allergy reaction codeine (CODEINE) AdvReac Mild STOMACH Verified 01/16/25 14:44 CRAMPS morphine (MORPHINE) AdvReac Mild STOMACH Verified 01/16/25 14:44 CRAMPS oxycodone (From Percocet) AdvReac Mild STOMACH Verified 01/16/25 14:44 CRAMPS PFSH <[facility] FRAMING MACHINE TENDER - Last Filed: 02/25/25 19:36> PFSH Disclaimer: The information contained in this section may have been updated after the patient was seen, as this information can be updated by other users. 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 MACHINE TENDER) Smoking Status: Former smoker smoking status stop date: 07/17/2023 second hand exposure: No alcohol intake: never counseling given: No substance use type: denies use counseling given: No current occupational status: disabled Travel in the last 8 weeks: None adopted: No caregiver/support person: No foster care: No household members: children housing: house lives independently: Yes marital status: number of children: 1 number of grandchildren: 0 education level: high school 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; 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 current occupational exposures/hazards: Yes pets and animals: Yes pets and animals: cat(s) Hx Recent Travel: No sexually active: No caffeine: Yes physical activity: none dyana/church: [employer] special dyana needs: No working smoke detector in home: Yes fire extinguisher in home: Yes carbon monox detector in home: Yes firearms in home: No do you feel safe at home: Yes victim of physical abuse: No victim of emotional abuse: No victim of sexual abuse: No would you like helpful sources: No Have you lived/traveled outside [place] in past 30 days?: No Contact w/someone who lives/traveled outside US past 30 days?: No Exposure to someone with infectious disease in past 14 days?: No Do you have a fever (greater than 100.4 F or 38 C)?: No Have you tested positive for COVID-19: No Exposed to someone with COVID-19 in past 14 days?: No Do you have a sore throat?: No Do you have a cough?: No Do you have any weakness?: No Do you have any diarrhea?: Yes Are you experiencing any unusual bleeding?: No Do you have any muscle aches/pain?: No Do you have any abdominal pain?: No Are you experiencing loss of taste or smell?: No Other 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 Have you received the Flu Vaccine for this season: No Have you received the Pneumonia Vaccine: No <[facility] FRAMING MACHINE TENDER - Last Filed: 02/25/25 19:36> ROS Obtained: Yes Systems reviewed as appropriate & no additional complaints except as documented Gastrointestinal Gastrointestingal: Reports system reviewed and no additional complaints, except as documented, as per HPI, diarrhea, nausea and vomiting Physical Exam <[facility] FRAMING MACHINE TENDER - Last Filed: 02/25/25 19:36> General General appearance: alert and in no apparent distress Head Head exam: atraumatic, normocephalic and normal inspection Eye Eye exam: Present normal appearance and PERRL ENT ENT exam: Present normal exam, normal oropharynx, mucous membranes moist, TM's normal bilaterally and normal external ear exam Neck Neck exam: Present normal inspection, full ROM and trachea midline; Absent meningismus or lymphadenopathy Chest Chest inspection: Absent tenderness Respiratory Respiratory exam: Present normal lung sounds bilaterally; Absent respiratory distress Cardiovascular Cardiovascular exam: Present regular rate and normal rhythm; Absent JVD Abdominal Exam Abdominal exam: Present soft and normal bowel sounds; Absent distention, tenderness or guarding Extremities Exam Extremities exam: Present normal inspection, full ROM and normal capillary refill; Absent calf tenderness Neurological Exam Neurological exam: Present alert and oriented X3 Skin Skin exam: Present warm, intact and normal color Medical Decision Making <Jazmine Mondragon ([facility]), FRAMING MACHINE TENDER - Last Filed: 02/25/25 19:36> Medical Records Medical records reviewed: Yes I reviewed the patient's medical records. Screening: Per USPSTF and CDC recommendations, given the prevalence of disease in our region, it is our hospital?s policy to screen for HIV and viral Hepatitis for all patients aged 18 and over and those with ongoing risk factors. Harsha Inquiry Pt receiving controlled substance: No Harsha was queried for this patient: No Vital Signs: 02/25/25 15:20 02/25/25 15:24 02/25/25 15:31 Temperature 98.6 F Temperature Source Oral Pulse Rate 78 84 Pulse Rate [Apical] 74 Respiratory Rate 18 Blood Pressure 134/73 111/64 Blood Pressure [Left Arm] 134/73 Blood Pressure Mean [Left Arm] 93 Blood Pressure Source [Left Arm] Automatic Cuff Blood Pressure Position Blood Pressure Position [Left Arm] Sitting 02 Sat by Pulse Oximetry 99 98 95 Oxygen Delivery Method Room Air Room Air Room Air 02/25/25 16:00 02/25/25 16:31 02/25/25 17:01 Temperature Temperature Source Pulse Rate 88 93 H 88 Pulse Rate [Apical] Respiratory Rate Blood Pressure 114/68 121/63 121/66 Blood Pressure [Left Arm] Blood Pressure Mean [Left Arm] Blood Pressure Source [Left Arm] Blood Pressure Position Blood Pressure Position [Left Arm] 02 Sat by Pulse Oximetry 96 95 97 Oxygen Delivery Method Room Air Room Air Room Air 02/25/25 17:30 02/25/25 18:00 02/25/25 18:30 Temperature Temperature Source Pulse Rate 84 89 93 H Pulse Rate [Apical] Respiratory Rate Blood Pressure 127/78 Blood Pressure [Left Arm] Blood Pressure Mean [Left Arm] Blood Pressure Source [Left Arm] Blood Pressure Position Blood Pressure Position [Left Arm] 02 Sat by Pulse Oximetry 97 96 97 Oxygen Delivery Method Room Air Room Air 02/25/25 20:03 Temperature 98.1 F Temperature Source Oral Pulse Rate 97 H Pulse Rate [Apical] Respiratory Rate 18 Blood Pressure 117/76 Blood Pressure [Left Arm] Blood Pressure Mean [Left Arm] Blood Pressure Source [Left Arm] Blood Pressure Position Sitting Blood Pressure Position [Left Arm] 02 Sat by Pulse Oximetry Oxygen Delivery Method Room Air Lab Data Lab results reviewed: Yes I reviewed the patient's lab results. Lab Results 02/25/25 15:25: WBC 16.3 H, RBC 5.54 H, Hgb 14.7, Hct 45.7, MCV 82.5, MCH 26.5 L, MCHC 32.2, RDW 13.8, Plt Count 357, MPV 10.9 H, Neut % (Auto) 79.3, Lymph % (Auto) 14.1, [place] % (Auto) 5.7, Eos % (Auto) 0.1, Baso % (Auto) 0.4, Neut # (Auto) 13.0 H, Lymph # (Auto) 2.3, [place] # (Auto) 0.9, Eos # (Auto) 0.0, Baso # (Auto) 0.1, Total Counted 100, Neutrophils % (Manual) 81 H, Lymphocytes % (Manual) 14, Monocytes % (Manual) 5, Platelet Estimate Normal, RBC Morphology Normal, Sodium 131 L, Potassium 4.6, Chloride 95 L, Carbon Dioxide 20 L, Anion Gap 20.6 H, BUN 26 H, Creatinine 1.30 H, Estimated Creat Clear 45, Estimated GFR 42 L, Est GFR ( Amer) 51 L, Glucose 358 H, Calcium 9.3, Total Bilirubin 0.6, AST 28, ALT 25, Alkaline Phosphatase 102, Total Protein 8.4 H, Albumin 4.4, Globulin 4.0 H, Albumin/Globulin Ratio 1.1, Acetone Level None detected, HCV Ab SPENCER w/Rflx PCR Qn Negative, HIV Ag/Ab Combo Qual Negative 02/25/25 16:24: VBG pH 7.34, VBG pCO2 38.1, VBG pO2 41.3 H, VBG HCO3 20.0 L, VBG Total CO2 21.1 L, VBG O2 Saturation 75.8 H, VBG Base Excess -5.9 L, VBG Lactic Acid 2.2 H 02/25/25 15:25 02/25/25 15:25 Orders (Tests/Meds): ED MEDICATIONS Discontinued Medications Generic Name Dose Route Start Last Admin Trade Name Freq PRN Reason Stop Dose Admin Belladonna Alkaloids 60 ml 02/25/25 17:37 02/25/25 17:38 Belladonna Alkaloids 60 Ml Ml PO 02/25/25 17:38 60 ml ONCE ONE Administration Diphenhydramine HCl 25 mg 02/25/25 17:58 02/25/25 18:02 Diphenhydramine 50mg/Ml Vial IV 02/25/25 17:59 25 mg ONCE ONE Administration Sodium Chloride 1,000 mls @ 500 mls/hr 02/25/25 15:45 02/25/25 17:22 Sod Chlor 0.9% 1000ml Bag IV 03/27/25 15:44 Not Given .Q2H PETE Sodium Chloride 1,000 mls @ 999 mls/hr 02/25/25 17:20 02/25/25 17:30 Sod Chlor 0.9% 1000ml Bag IV 02/25/25 18:20 999 mls/hr .Q1H1M ONE Administration Promethazine HCl 12.5 mg 02/25/25 15:55 02/25/25 15:58 Promethazine Hcl 25mg/Ml 1ml Vial IV 02/25/25 15:56 12.5 mg ONCE ONE Administration Promethazine HCl 12.5 mg 02/25/25 17:20 02/25/25 17:29 Promethazine Hcl 25mg/Ml 1ml Vial IV 02/25/25 17:21 12.5 mg ONCE ONE Administration Sodium Chloride 25 ml 02/25/25 15:55 02/25/25 16:22 Sodium Chloride 0.9% 25ml Bag IV 02/25/25 15:56 Not Given ONCE ONE Sodium Chloride 25 ml 02/25/25 17:20 Sodium Chloride 0.9% 25ml Bag IV 02/25/25 17:21 ONCE ONE ORDERS Category Date Time Status Acetone, Serum (Rapid) Stat Lab 02/25/25 15:25 Completed CBC w/Auto Diff [Complete Blood Count Auto Diff] Stat Lab 02/25/25 15:25 Completed CMP [Comprehensive Metabolic Panel] Stat Lab 02/25/25 15:25 Completed HIV Combo Stat Lab 02/25/25 15:25 Completed Hepatitis C Ab Qual. W/ RFX Stat Lab 02/25/25 15:25 Completed VBG [Venous Blood Gas] Stat RT 02/25/25 16:24 Completed VBG [Venous Blood Gas] Stat RT 02/25/25 16:36 Ordered EKG Request [ECG Request] Stat Y 02/25/25 17:20 Ordered Medical Decision Narrative: In summary patient is a 54-year-old female who presents to the emergency department for evaluation of nausea, vomiting, and diarrhea since with high blood sugar. Patient is hemodynamically stable upon arrival, afebrile. Unremarkable physical exam. Differential diagnosis includes DKA, dehydration, gastritis. Initial workup will be conducted with labs, EKG,. Initial inventions include 2 L normal saline, 25 mg of Phenergan,GI cocktail and 25 of Benadryl. Initial workup reviewed by nm labs unremarkable. Upon repeat evaluation patient was tolerating drinking Diet Coke complained of acid reflux GI cocktail was given. Patient continue to sip on Diet Coke while in the ER had no episodes of vomiting or diarrhea. Given this patient is appropriate for discharge this time will discharge home <Edgardo Cruz MD - Last Filed: 02/26/25 19:19> Vital Signs: 02/25/25 15:20 02/25/25 15:24 02/25/25 15:31 Temperature 98.6 F Temperature Source Oral Pulse Rate 78 84 Pulse Rate [Apical] 74 Respiratory Rate 18 Blood Pressure 134/73 111/64 Blood Pressure [Left Arm] 134/73 Blood Pressure Mean [Left Arm] 93 Blood Pressure Source [Left Arm] Automatic Cuff Blood Pressure Position Blood Pressure Position [Left Arm] Sitting 02 Sat by Pulse Oximetry 99 98 95 Oxygen Delivery Method Room Air Room Air Room Air 02/25/25 16:00 02/25/25 16:31 02/25/25 17:01 Temperature Temperature Source Pulse Rate 88 93 H 88 Pulse Rate [Apical] Respiratory Rate Blood Pressure 114/68 121/63 121/66 Blood Pressure [Left Arm] Blood Pressure Mean [Left Arm] Blood Pressure Source [Left Arm] Blood Pressure Position Blood Pressure Position [Left Arm] 02 Sat by Pulse Oximetry 96 95 97 Oxygen Delivery Method Room Air Room Air Room Air 02/25/25 17:30 02/25/25 18:00 02/25/25 18:30 Temperature Temperature Source Pulse Rate 84 89 93 H Pulse Rate [Apical] Respiratory Rate Blood Pressure 127/78 Blood Pressure [Left Arm] Blood Pressure Mean [Left Arm] Blood Pressure Source [Left Arm] Blood Pressure Position Blood Pressure Position [Left Arm] 02 Sat by Pulse Oximetry 97 96 97 Oxygen Delivery Method Room Air Room Air 02/25/25 20:03 Temperature 98.1 F Temperature Source Oral Pulse Rate 97 H Pulse Rate [Apical] Respiratory Rate 18 Blood Pressure 117/76 Blood Pressure [Left Arm] Blood Pressure Mean [Left Arm] Blood Pressure Source [Left Arm] Blood Pressure Position Sitting Blood Pressure Position [Left Arm] 02 Sat by Pulse Oximetry Oxygen Delivery Method Room Air Lab Data Lab Results 02/25/25 15:25: WBC 16.3 H, RBC 5.54 H, Hgb 14.7, Hct 45.7, MCV 82.5, MCH 26.5 L, MCHC 32.2, RDW 13.8, Plt Count 357, MPV 10.9 H, Neut % (Auto) 79.3, Lymph % (Auto) 14.1, [place] % (Auto) 5.7, Eos % (Auto) 0.1, Baso % (Auto) 0.4, Neut # (Auto) 13.0 H, Lymph # (Auto) 2.3, [place] # (Auto) 0.9, Eos # (Auto) 0.0, Baso # (Auto) 0.1, Total Counted 100, Neutrophils % (Manual) 81 H, Lymphocytes % (Manual) 14, Monocytes % (Manual) 5, Platelet Estimate Normal, RBC Morphology Normal, Sodium 131 L, Potassium 4.6, Chloride 95 L, Carbon Dioxide 20 L, Anion Gap 20.6 H, BUN 26 H, Creatinine 1.30 H, Estimated Creat Clear 45, Estimated GFR 42 L, Est GFR ( Amer) 51 L, Glucose 358 H, Calcium 9.3, Total Bilirubin 0.6, AST 28, ALT 25, Alkaline Phosphatase 102, Total Protein 8.4 H, Albumin 4.4, Globulin 4.0 H, Albumin/Globulin Ratio 1.1, Acetone Level None detected, HCV Ab SPENCER w/Rflx PCR Qn Negative, HIV Ag/Ab Combo Qual Negative 02/25/25 16:24: VBG pH 7.34, VBG pCO2 38.1, VBG pO2 41.3 H, VBG HCO3 20.0 L, VBG Total CO2 21.1 L, VBG O2 Saturation 75.8 H, VBG Base Excess -5.9 L, VBG Lactic Acid 2.2 H Orders (Tests/Meds): ED MEDICATIONS Discontinued Medications Generic Name Dose Route Start Last Admin Trade Name Freq PRN Reason Stop Dose Admin Belladonna Alkaloids 60 ml 02/25/25 17:37 02/25/25 17:38 Belladonna Alkaloids 60 Ml Ml PO 02/25/25 17:38 60 ml ONCE ONE Administration Diphenhydramine HCl 25 mg 02/25/25 17:58 02/25/25 18:02 Diphenhydramine 50mg/Ml Vial IV 02/25/25 17:59 25 mg ONCE ONE Administration Sodium Chloride 1,000 mls @ 500 mls/hr 02/25/25 15:45 02/25/25 17:22 Sod Chlor 0.9% 1000ml Bag IV 03/27/25 15:44 Not Given .Q2H PETE Sodium Chloride 1,000 mls @ 999 mls/hr 02/25/25 17:20 02/25/25 17:30 Sod Chlor 0.9% 1000ml Bag IV 02/25/25 18:20 999 mls/hr .Q1H1M ONE Administration Promethazine HCl 12.5 mg 02/25/25 15:55 02/25/25 15:58 Promethazine Hcl 25mg/Ml 1ml Vial IV 02/25/25 15:56 12.5 mg ONCE ONE Administration Promethazine HCl 12.5 mg 02/25/25 17:20 02/25/25 17:29 Promethazine Hcl 25mg/Ml 1ml Vial IV 02/25/25 17:21 12.5 mg ONCE ONE Administration Sodium Chloride 25 ml 02/25/25 15:55 02/25/25 16:22 Sodium Chloride 0.9% 25ml Bag IV 02/25/25 15:56 Not Given ONCE ONE Sodium Chloride 25 ml 02/25/25 17:20 Sodium Chloride 0.9% 25ml Bag IV 02/25/25 17:21 ONCE ONE ORDERS Category Date Time Status Acetone, Serum (Rapid) Stat Lab 02/25/25 15:25 Completed CBC w/Auto Diff [Complete Blood Count Auto Diff] Stat Lab 02/25/25 15:25 Completed CMP [Comprehensive Metabolic Panel] Stat Lab 02/25/25 15:25 Completed HIV Combo Stat Lab 02/25/25 15:25 Completed Hepatitis C Ab Qual. W/ RFX Stat Lab 02/25/25 15:25 Completed VBG [Venous Blood Gas] Stat RT 02/25/25 16:24 Completed VBG [Venous Blood Gas] Stat RT 02/25/25 16:36 Ordered EKG Request [ECG Request] Stat Y 02/25/25 17:20 Ordered Medical Decision Narrative: In summary patient is a 54-year-old female who presents to the emergency department for evaluation of nausea, vomiting, and diarrhea since with high blood sugar. Patient is hemodynamically stable upon arrival, afebrile. Unremarkable physical exam. Differential diagnosis includes DKA, dehydration, gastritis. Initial workup will be conducted with labs, EKG,. Initial inventions include 2 L normal saline, 25 mg of Phenergan,GI cocktail and 25 of Benadryl. Initial workup reviewed by nm labs unremarkable. Upon repeat evaluation patient was tolerating drinking Diet Coke complained of acid reflux GI cocktail was given. Patient continue to sip on Diet Coke while in the ER had no episodes of vomiting or diarrhea. Given this patient is appropriate for discharge this time will discharge home I was consulted by the TOM, and we discussed the complexity of the problems being addressed.I approved the treatment and management plan for this patient?s care in the Emergency Department, thus performing a substantive portion of the medical decision making.Signed, Edgardo Cruz MD MBA Critical Care <Jazmine Mondragon ([facility]), FRAMING MACHINE TENDER - Last Filed: 02/25/25 19:36> Critical Care Time Critical Care Time: No
[2025-02-25] MEDS: 0.9 % SODIUM CHLORIDE 1000ML 1,000 ML 500 ML IV (15:50)
[2025-02-25] MEDS: PROMETHAZINE HCL 25MG/ML 1ML VIAL 12.5 MG IV ×2 (15:58→17:29)
[2025-02-25 16:16] LABS: Albumin Level 4.4 g/dl (3.5-5.0); Basophils # 0.1 K/mm3 (0-0.2); Basophils % 0.4 % (0.1-2.0); Chloride 95 mmol/L (98-107); Eosinophils % 0.1 % (0.1-12.0); Hematocrit 45.7 % (37.0-47.0); Hemoglobin 14.7 g/dL (12.2-16.2); Lymphocytes # 2.3 K/mm3 (0.7-4.5); Lymphocytes % 14.1 % (10-50); Mean Corpuscular HGB Conc 32.2 g/dL (31.8-35.4); Mean Corpuscular Hemoglobin 26.5 pg (27.0-31.2); Mean Corpuscular Volume 82.5 fl (81-99); Mean Platelet Volume 10.9 fl (7.4-10.4); Monocytes # 0.9 K/mm3 (0.1-1.0); Monocytes % 5.7 % (1.7-9.3); Neutrophils % 79.3 % (37.0-80.0); Nucleated Red Blood Cells # 0 10^3/uL; Nucleated Red Blood Cells % 0 %; Platelet Count 357 K/mm3 (142-424); Potassium 4.6 mmoL/L (3.5-5.1); Red Blood Count 5.54 M/mm3 (4.20-5.40); Red Cell Distribution Width 13.8 % (11.5-17.5); Red Cell Distribution Width-SD 41.2 fL; Sodium 131 mmol/L (136-145); White Blood Count 16.3 K/mm3 (4.8-10.8)
[2025-02-25 16:18] LABS: Blood Urea Nitrogen 26 mg/dl (7-17); Creatinine Clearance Estimated 45 mL/min (50-200); Estimated Glomerular Filt Rate 42 ml/min (>60); GFR (African American) 51 ML/MIN (>60)
[2025-02-25 16:19] LABS: Alanine Aminotransferase 25 U/L (12-78); Albumin/Globulin Ratio 1.1 (1.1-1.8); Alkaline Phosphatase 102 U/L (38-126); Anion Gap 20.6 mEq/L (5-15); Aspartate Amino Transferase 28 U/L (14-36); Bilirubin,Total 0.6 mg/dl (0.2-1.3); Calcium 9.3 mg/dl (8.4-10.2); Carbon Dioxide 20 mmol/L (22.0-30.0); Glucose 358 mg/dl (74-100); Total Protein,Serum 8.4 g/dl (6.3-8.2)
[2025-02-25 16:24] LABS: MANUAL DIFFERENTIAL MANUAL DIFFERENTIAL (MANUAL DIFF)
[2025-02-25 16:32] LABS: VBG Base Excess -5.9 mmol/L (-2.4-2.3); VBG Oxygen Saturation 75.8 % (50-70); VBG PCO2 38.1 mmol/L (35-51); VBG PH 7.34 mmol/L (7.31-7.41); VBG PO2 41.3 mmol/L (28-40); VBG Total CO2 21.1 mmol/L (23-27)
[2025-02-25 16:33] LABS: Lactate Venous 2.2 mmol/L (0.4-2.0)
[2025-02-25 16:37] LABS: HIV Combo NEGATIVE (Negative)
[2025-02-25 16:46] LABS: Hepatitis C Ab Qual. W/ RFX NEGATIVE (Negative)
[2025-02-25 16:47] LABS: Acetone, Serum (Rapid) None Detected (None Detect)
[2025-02-25 16:53] LABS: Lymphocytes % 14 % (10-50); Monocytes % 5 % (2-9); Neutrophils % 81 % (42-76); Platelet Estimate Normal; RBC Morphology Normal; Total Cells Counted 100
--- NOTE | 2025-02-25 17:20 | ECG_ITS ---
APPROVED REPORT Exam: Resting ECG HR:86 bpm ECG Measurements Heart Rate 86 AXES MI 264 P 215 QRSd 98 QRS -26 QT 403 T 76 QTc 447 Conclusion ELECTRONIC ATRIAL PACEMAKER ELECTRONIC VENTRICULAR PACEMAKER ABNORMAL RHYTHM ECG Electronically signed by : DESTINI BEAVERS, 02/25/2025 23:27:29
[2025-02-25] MEDS: 0.9 % SODIUM CHLORIDE 1000ML 1,000 ML 999 ML IV (17:30)
[2025-02-25] MEDS: BELLADONNA ALKALOIDS 60 ML ML PO (17:38)
[2025-02-25] MEDS: diphenhydrAMINE 50MG/ML VIAL 25 MG IV (18:02)
[2025-02-25 20:32] LABS: Reflex Lactic Add Lactic Reflex
== END 2025-02-25 20:04 | disposition home or self-care (01) ==
PROVIDERS: Nurse Practitioner Family; Emergency Provider Emergency Medicine; PCP Internal Medicine
DX: R11.2 Nausea with vomiting, unspecified (principal); E11.65 Type 2 diabetes mellitus with hyperglycemia; R19.7 Diarrhea, unspecified; Z79.4 Long term (current) use of insulin; Z11.59 Encounter for screening for other viral diseases; Z11.4 Encounter for screening for human immunodeficiency virus [HIV]
CPT/HCPCS: 80053; 82009; 82803; 85007; 85025; 85027; 86803; 87389; 93005; 96361; 96374; 96375; 99284; J1200; J2550; J7030

== ENCOUNTER 2025-04-24 23:54 | Inpatient (IN) | payer MEDICARE, SELFPAY ==
[2025-04-25] VITALS (9 sets, daily range): BP systolic 131–168; BP diastolic 62–94; PULSE 61–105; RESP 16–20; TEMP 36.6–37.1; O2SAT 93–98; BMI 46.7; BMI 42.5; BMI 43.5
--- NOTE | 2025-04-25 00:04 | ED_ITS ---
Discharge Plan Disposition Patient Disposition: Admitted Clinical Impressions Clinical Impression: Fracture of toe of right foot, Diabetic foot infection, DKA (diabetic ketoacidosis) Discharge ED Provider: René Mari Adult HPI General Chief complaint: Wound/Laceration Stated complaint: infected toe, R foot Time Seen by Provider: 04/25/25 00:04 History of Present Illness HPI narrative: 54-year-old female with history of left BKA, insulin-dependent diabetes, obesity, coronary artery disease presents for right foot pain. She slammed it against a corner of a cabinet within the last couple of days and when she looked at it today she noticed that had a foul smell and the sock was stuck to it. She is concerned it is fractured and or infected. She denies any fevers at home. Reports that it hurts a little bit but she has poor feeling to the foot. Related Data Home Medications ?Medication ?Instructions ?Recorded ?Confirmed ondansetron HCl 4 mg tablet 4 mg PO Q8H PRN 09/01/24 0 01/16/25 Previous Rx's ?Medication ?Instructions ?Recorded lorazepam 0.5 mg tablet 0.5 mg PO TID PRN anxiety #9 0 tabs 07/25/24 aspirin 81 mg chewable tablet 81 mg PO DAILY HEART HEA LTH #90 12/12/24 tabs isosorbide mononitrate 60 mg 60 mg PO DAILY #90 tabs 0 12/12/24 tablet,extended release 24 hr metoprolol tartrate 100 mg tablet 100 mg PO BID #180 t abs 12/12/24 ramipril 5 mg capsule 5 mg PO DAILY #90 caps 12/12 rosuvastatin 20 mg tablet 20 mg PO DAILY #90 tabs 11/17 06/09 spironolactone 25 mg tablet 25 mg PO DAILY #90 tabs dapagliflozin propanediol 10 mg 10 mg PO DAILY #90 tab s 01/16/25 tablet ranolazine 1,000 mg 1,000 mg PO BID #60 tabs 02/07 tablet,extended release,12 hr duloxetine 60 mg capsule,delayed 60 mg PO BID #180 cap s 01/31/25 release hydroxyzine HCl 25 mg tablet 25 mg PO HS For sleep #30 tabs 01/31/25 insulin glargine 100 unit/mL (3 50 unit (0.5 mL) SQ BI D #12 mL 01/31/25 mL) subcutaneous pen insulin lispro 100 unit/mL 18 unit (0.18 mL) SQ AC 30 days 01/31/25 subcutaneous solution (Humalog #16.2 mL U-100 Insulin) insulin syringe-needle U-100 0.5 #500 ea 01/31/25 mL 31 gauge x 5/16 (Sure Comfort Insulin Syringe) promethazine 25 mg tablet 25 mg PO Q4-6H PRN nausea an d 01/31/25 vomiting #20 tabs tramadol 50 mg tablet 50 mg PO Q6H PRN breakthroug h 01/31/25 pain, moderate #120 tabs hydrocodone 10 mg-acetaminophen 1 tab PO Q6H PRN pain #120 tabs 02/01/25 325 mg tablet trazodone 100 mg tablet 100 mg PO HS #90 tabs ezetimibe 10 mg tablet 10 mg PO HS #90 tabs 02/07/ 5 pen needle, diabetic 31 gauge x #1,200 ea 02/07/2516 (Unifine Pentips) rivaroxaban 2.5 mg tablet (Xarelto) 2.5 mg PO BIDWMEAL #60 tabs 02/07/25 insulin aspart U-100 100 unit/mL 18 unit (0.18 mL) SQ TID #45 mL 03/15/25 (3 mL) subcutaneous pen (Novolog FlexPen U-100 Insulin aspart) blood-glucose sensor (Dexcom G7 #3 ea 03/28/25 Sensor device) pregabalin 200 mg capsule 200 mg PO BID #180 caps 04/09 Allergies Allergy/AdvReac Type Severity Reaction Status Date / Time clopidogrel (From Plavix) Allergy Severe Hives Verified 01/16/25 14:44 amoxicillin (AMOXICILLIN) Allergy Unknown Unknown Verified 01/16/25 14:44 allergy reaction codeine (CODEINE) AdvReac Mild STOMACH Verified 01/16/25 14:44 CRAMPS morphine (MORPHINE) AdvReac Mild STOMACH Verified 01/16/25 14:44 CRAMPS oxycodone (From Percocet) AdvReac Mild STOMACH Verified 01/16/25 14:44 CRAMPS PFSH PFSH Disclaimer: The information contained in this section may have been updated after the patient was seen, as this information can be updated by other users. 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) Smoking Status: Never smoker smoking status stop date: 07/17/2023 second hand exposure: No alcohol intake: never counseling given: No substance use type: denies use counseling given: No current occupational status: disabled Travel in the last 8 weeks?: None adopted: No caregiver/support person: No foster care: No household members: children housing: house lives independently: Yes marital status: number of children: 1 number of grandchildren: 0 education level: high school 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; 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 current occupational exposures/hazards: Yes pets and animals: Yes pets and animals: cat(s) Hx Recent Travel: No sexually active: No caffeine: Yes physical activity: none dyana/sikh: [employer] special dyana needs: No working smoke detector in home: Yes fire extinguisher in home: Yes carbon monox detector in home: Yes firearms in home: No do you feel safe at home: Yes victim of physical abuse: No victim of emotional abuse: No victim of sexual abuse: No would you like helpful sources: No Have you lived/traveled outside [place] in past 30 days?: No Contact w/someone who lives/traveled outside US past 30 days?: No Exposure to someone with infectious disease in past 14 days?: No Do you have a fever (greater than 100.4 F or 38 C)?: No Have you tested positive for COVID-19?: No Exposed to someone with COVID-19 in past 14 days?: No Do you have a sore throat?: No Do you have a cough?: No Do you have any weakness?: No Do you have any diarrhea?: No Are you experiencing any unusual bleeding?: No Do you have any muscle aches/pain?: No Do you have any abdominal pain?: No Are you experiencing loss of taste or smell?: No Other 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 Have you received the Flu Vaccine for this season: No Have you received the Pneumonia Vaccine: No ROS Obtained: Yes All systems reviewed & no additional complaints except as documented Physical Exam General General appearance: alert, in no apparent distress and obese Head Head exam: atraumatic and normocephalic Eye Eye exam: Present normal appearance, PERRL and EOMI ENT ENT exam: Present normal oropharynx and normal external ear exam Neck Neck exam: Present normal inspection and full ROM Chest Chest inspection: Present normal inspection and symmetric chest wall rise; Absent tenderness Respiratory Respiratory exam: Present normal lung sounds bilaterally; Absent respiratory distress Cardiovascular Cardiovascular exam: Present regular rate and normal rhythm Abdominal Exam Abdominal exam: Present soft; Absent distention, tenderness or guarding Extremities Exam Extremities exam: Present other (Left BKA. Right foot: Laceration to the second PIP joint, significant surrounding erythema in the first second third digits. Erythema does not extend up into the foot. Malodorous) Back Exam Back exam: Present normal inspection; Absent tenderness Neurological Exam Neurological exam: Present alert and oriented X3; Absent motor sensory deficit Psychiatric Psychiatric exam: Present normal affect and normal mood Skin Skin exam: Present warm, dry and normal color Lymphatic Lymphatic Findings: no adenopathy Medical Decision Making Medical Records Medical records reviewed: Yes I reviewed the patient's medical records. Screening: Per USPSTF and CDC recommendations, given the prevalence of disease in our region, it is our hospital?s policy to screen for HIV and viral Hepatitis for all patients aged 18 and over and those with ongoing risk factors. Harsha Inquiry Pt receiving controlled substance: No Harsha was queried for this patient: No Vital Signs: 04/25/25 00:04 Temperature 98 F Temperature Source Oral Pulse Rate [Left] 105 H Respiratory Rate 20 Blood Pressure [Right Arm] 153/94 H Blood Pressure Mean [Right Arm] 113 Blood Pressure Source [Right Arm] Manual Cuff/ Doppler Blood Pressure Position [Right Arm] Sitting 02 Sat by Pulse Oximetry 94 L Oxygen Delivery Method Room Air Lab Data Lab results reviewed: Yes I reviewed the patient's lab results. Lab Results 04/25/25 00:18: WBC 11.1 H, RBC 5.53 H, Hgb 15.2, Hct 47.0, MCV 85.0, MCH 27.5, MCHC 32.3, RDW 14.2, Plt Count 324, MPV 10.7 H, Neut % (Auto) 69.2, Lymph % (Auto) 20.5, [place] % (Auto) 7.3, Eos % (Auto) 2.1, Baso % (Auto) 0.5, Neut # (Auto) 7.7, Lymph # (Auto) 2.3, [place] # (Auto) 0.8, Eos # (Auto) 0.2, Baso # (Auto) 0.1, VBG pH 7.30 L, VBG pCO2 48.3, VBG pO2 27.8 L, VBG HCO3 23.3, VBG Total CO2 24.8, VBG O2 Saturation 52.0, VBG Base Excess -3.0 L, VBG Lactic Acid 3.6 H, Sodium 131 L, Potassium 4.2, Chloride 94 L, Carbon Dioxide 25, Anion Gap 16.2 H, BUN 11, Creatinine 0.90, Estimated Creat Clear 65, Estimated GFR 65, Est GFR ( Amer) 78, Glucose 498 H*, Calcium 9.5, Total Bilirubin 0.9, AST 25, ALT 16, Alkaline Phosphatase 114, C-Reactive Protein 34.9 H, Total Protein 8.5 H , Albumin 4.2, Globulin 4.3 H, Albumin/Globulin Ratio 1.0 L 04/25/25 00:18 04/25/25 00:18 Orders (Tests/Meds): ED MEDICATIONS Generic Name Dose Route Start Last Admin Trade Name Freq PRN Reason Stop Dose Admin Vancomycin HCl 2,500 mg/ 500 mls @ 250 mls/hr 04/25/25 00:45 04/25/25 01:29 Sodium Chloride IV 04/25/25 02:44 250 mls/hr ONCE ONE Administration Lactated Ringer's 1,000 mls @ 999 mls/hr 04/25/25 01:00 04/25/25 01:47 Lactated Ringer's 1000 Ml Bag IV 04/25/25 03:00 999 mls/hr .Q1H1M PETE Administration Miscellaneous 1 each 04/25/25 00:15 04/25/25 01:26 Vancomycin Consult Request NOTAPPLIC 05/25/25 00:14 Not Given CONSULT PHARMACY PETE Discontinued Medications Generic Name Dose Route Start Last Admin Trade Name Skylar COLON Reason Stop Dose Admin Acetaminophen 1,000 mg 04/25/25 00:07 04/25/25 00:26 Acetaminophen 500mg Tab PO 04/25/25 00:08 1,000 mg ONCE ONE Administration Cefepime HCl 2 gm/ Sodium 100 mls @ 200 mls/hr 04/25/25 00:12 04/25/25 00:25 Chloride IV 04/25/25 00:41 200 mls/hr ONCE ONE Administration Metronidazole 500 mg in 100 mls @ 100 mls/hr 04/25/25 00:12 04/25/25 00:26 Flagyl 500mg/100ml Ivpb IV 04/25/25 01:11 100 mls/hr ONCE ONE Administration Insulin Human Lispro 15 unit 04/25/25 00:57 04/25/25 01:31 Humalog 100 Units/Ml 10ml Vial (Ssi) SUBCUT 04/25/25 00:58 15 unit ONCE ONE Administration Ketorolac Tromethamine 30 mg 04/25/25 00:07 04/25/25 00:26 Ketorolac 30mg/Ml Vial IV 04/25/25 00:08 30 mg ONCE ONE Administration Oxycodone HCl 10 mg 04/25/25 01:03 04/25/25 01:30 Oxycodone 5mg Immediate Release Tablet PO 04/25/25 01:04 10 mg ONCE ONE Administration ORDERS Category Date Time Status Foot XR right minimum 3 views [XR foot RT min 3V] Stat Exams 04/25/25 00:07 Completed CBC w/Auto Diff [Complete Blood Count Auto Diff] Stat Lab 04/25/25 00:18 Completed CMP [Comprehensive Metabolic Panel] Stat Lab 04/25/25 00:18 Completed CRP [C-Reactive Protein] Stat Lab 04/25/25 00:18 Completed Lactate Venous Stat Lab 04/25/25 00:20 Ordered Blood Culture Stat Micro 04/25/25 00:10 Received Wound Culture and Gram Stain Stat Micro 04/25/25 00:35 Results VBG [Venous Blood Gas] Stat RT 04/25/25 00:18 Completed Tissue Perfus/Sepsis Re-Eval Sepsis Re-Evaluation Performed: Yes Date Performed: 04/25/25 Time Performed: 01:54 Medical Decision Narrative: 54-year-old female with history of insulin-dependent diabetes, prior left BKA, presents with trauma and concern for infection to the right foot.. History was obtained via interactive discussion with patient, family, chart review. On arrival, patient is [afebrile, hemodynamically stable, satting appropriately, alert, oriented x4, GCS 15], moving all extremities spontaneously. Full physical exam performed and significant for laceration, erythema and drainage to the right second toe with surrounding erythema in the toes. Erythema does not extend up to the proximal foot Differential includes but is not limited to fracture, dislocation, osteomyelitis, diabetic foot wound, DKA. Patient was given Tylenol, Toradol for symptomatic management and correction of underlying abnormalities. Workup initiated including CBC CMP CRP VBG lactate blood culture wound culture radiograph of the right foot. Patient was initiated on Vanco cefepime Flagyl for empiric coverage of diabetic foot wound/possible open fracture. Patient was also given 2 L of IV fluid. A full sepsis bolus is not indicated at this time in my opinion. On re-evaluation, patient [remains afebrile, HD stable.] Laboratory workup independently interpreted by me and significant for mild leukocytosis with white count of 18. Mild hyponatremia. CRP elevated at 35. Labs are also consistent with very mild DKA. Her anion gap is 16, almost closed. Her blood sugar is 500, her pH is 7.30, lower limit of normal is 7.31.. Imaging independently interpreted by me and significant for acute fracture of the right second PIP joint. There is also lucency which could be related to underlying osteomyelitis.. See radiology read for full review of final results. Given patient history, exam and workup, patient's presentation most likely represents acute open fracture and diabetic infection of the right second digit and surrounding toes. Wound culture was obtained. Wound was irrigated and covered. Patient was given additional pain medication. Regarding her laboratory abnormalities, they are pretty mild in nature. I do not think that she requires a full DKA protocol. I gave her 15 of subcu insulin, in addition to the 2 L of fluid, I think this will likely close her gap and she can be on sliding scale. Interactive discussion was had with the hospitalist on-call for admission. Procedures Risk/Benefits of Procedure(s) Were Explained: Yes Critical Care Critical Care Time Critical Care Time: No
--- NOTE | 2025-04-25 00:07 | XR_ITS ---
PROCEDURE INFORMATION: Exam: XR Right Foot Exam date and time: 04/25/2025 12:19 AM Age: 54 years old Clinical indication: Pain; Foot; Right; Additional info: Recent trauma, diabetic, infected toes TECHNIQUE: Imaging protocol: Radiologic exam of the right foot. Views: 3 or more views. COMPARISON: CR XR FOOT RT MIN 3V 03/21/2024 10:34 AM FINDINGS: Bones/joints: Postoperative changes of 5th mid metatarsal amputation. Surgical tarsal-metatarsal ankylosis of the 1st ray. Calcaneal-3rd metatarsal surgical ankylosis with stable fracture of the cannulated screw. Talocalcaneal surgical ankylosis. Lateral midfoot bone staple. Acute fracture dislocation at the 2nd PIP joint with mild bony fragmentation. Osteopenia. Soft tissues: Soft tissue swelling of the 2nd digit. IMPRESSION: 1. Acute fracture dislocation at the 2nd PIP joint with mild bony fragmentation. There is prominent lucency at the site which may be secondary to the osteopenia however cannot exclude an underlying osteomyelitis with pathologic fracture in this patient with history of diabetic feet infections. 2. Soft tissue swelling of the 2nd digit. No definite ulcerations appreciated on this exam. Recommend correlation with physical exam findings.
--- OUTSIDE RECORDS SUMMARY | 2025-04-25 00:07 | XMS_ITS | Encounter Summary ---
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 Role Phone Unavailable Primary Care Provider Unavailabl e Encounter Details Date Type Department Care Team (Late st Contact Info) Description 05/15/2022 Transcribed Document [facility] [place] [facility] [place] [address] ProviderEvangelista MD [address] [place] [address] Social History Tobacco Use Types Packs/Day Years Used Date Smoking Tobacco: Never Assessed Comments Unknown Sex and Gender Information Value Date Recorded Sex Assigned at Not on file Legal Sex Female 3:10 PM CDT Gender Identity Not on file Sexual Orientation Not on file documented as of this encounter Miscellaneous Notes * Cerner Conversion Note - Evangelista Carbone MD - 05/15/2022 8:44 AM CDT DATE OF PROCEDURE: 05/15/2022 Location: [facility] Patient : 1970 SURGEON: Sam Hamlin DPM ALTO SINGER: None. PREOPERATIVE DIAGNOSES: 1. Osteomyelitis, right foot. 2. Ulcer, right foot to bone. 3. Pain, right foot. 4. Diabetes. POSTOPERATIVE DIAGNOSES: 1. Osteomyelitis, right foot. 2. Ulcer, right foot to bone. 3. Pain, right foot. 4. Diabetes. PROCEDURES PERFORMED: Right partial 5th ray amputation, peripheral nerve block of right foot. ANESTHESIA: MAC with local. HEMOSTASIS: None. ESTIMATED BLOOD LOSS: 50 mL. MATERIALS: Antibiotic beads of vancomycin and gentamicin. INJECTABLES: 8 mL of 1:1 ratio of 0.5% Marcaine plain and 1% lidocaine plain. SPECIMEN: Distal right 5th ray, deep culture swabs, right foot. COMPLICATIONS: None. CONDITION: Stable. DESCRIPTION OF PROCEDURE: The patient met in preoperative setting. All questions answered. Consent was signed. The patient elected to proceed with procedure. The patient was given IV antibiotics prophylactically prior to procedure. The patient was brought to the operating room and placed on table in a supine position under mild sedation. The foot was then scrubbed, prepped, and draped in the usual aseptic fashion. Attention was directed to the right foot where chronic lateral 5th metatarsal ulceration was noted. Preoperative block consisting of 8 mL of 1:1 ratio of 0.5% Marcaine plain and 1% lidocaine plain was administered to the surgical site. Incision was then made directly down to bone over the 5th metatarsophalangeal joint. Care was taken to retract all neurovascular structures. 5th digit was then disarticulated and passed off the field. Incision was then continued proximally, and the 5th metatarsal head was exposed. Using a sagittal saw, the 5th metatarsal head was resected and passed off the field. All devitalized soft tissue and bone were noted to be removed. Deep culture swabs were taken. Surgical site was irrigated with sterile saline. Application of Fabio hemostasis powder and antibiotic beads were placed in the surgical site. Surgical site was then closed with 3-0 Vicryl and 2-0 Prolene. Hemostasis was noted at conclusion of procedure. Postoperative dressing consisting of Betadine, Adaptic, 4x4, Kerlix, Cristian was then applied. The patient tolerated the procedure well and returned to PACU for a brief period of postoperative monitoring before being discharged to home. The patient has all scheduled followup instructions and will be followed in the office in the next 48-72 hours. Should surgical site not heal, the patient is at risk for further amputation. /[id number] JESUS Cassidy/RILEY / RADHA / MODL /[id number] documented in this encounter Plan of Treatment Not on file documented as of this encounter Visit Diagnoses Not on filedocumented in this encounter
--- OUTSIDE RECORDS SUMMARY | 2025-04-25 00:07 | XMS_ITS | Encounter Summary ---
Author Organization [employer] Address [address] [place] [id number] Care Team Providers Care Mixing Operator Name Role Phone Unavailable Primary Care Provider Unavailabl e Encounter Details Date Type Department Care Team (Late st Contact Info) Description 05/15/[address] [facility] [place] Family Medicine [address] [place] [address] ProviderEvangelista MD [address] [place] [address] Social History Tobacco Use Types Packs/Day Years Used Date Smoking Tobacco: Never Assessed Comments Unknown Sex and Gender Information Value Date Recorded Sex Assigned at Not on file Legal Sex Female 3:10 PM CDT Gender Identity Not on file Sexual Orientation Not on file documented as of this encounter Miscellaneous Notes * Cerner Conversion Note - Evangelista Carbone MD - 05/15/2022 8:56 AM CDT [facility] [address] BEE COLON :1970 Visit Time:05/15/2022 What to do next Your Diagnosis Non-pressure chronic ulcer of other part of right foot with necrosis of bone, Non-pressure chronic ulcer of other part of right foot with necrosis of bone Pain in right foot Instructions From Your Care Team Diet after Discharge: Resume usual diet as tolerated, Do not drink any alcoholic beverages Activity after Discharge: Rest and relax today, No strenuous activity. {{ weight bearing status }} Lifting Restrictions: No heavy lifting Driving after Discharge: Do not drive until cleared by surgeon Showering/Bathing: Do not get dressing wet Notify Provider of: Fever or chills, excessive bleeding, pain uncontrolled by medication, swelling, pus-like drainage Wound/Incision Care after Discharge: DO NOT CHANGE DRESSING See separate sheet for additional post operative instructions Take pain medication with food, take stool softeners while on pain medication. Do Not exceed 4000mg of acetaminophen (Tylenol) per day. Discharge Follow Up Instructions: Follow-Up Appointments Follow Up with ANGELA GREEN When 05/20/2022 03:00 PM EDT Where: [address] [facility] (1) Medications What How Much When Instructions Next Dose isosorbide mononitrate (isosorbide mononitrate 60 mg oral tablet, extended release) 1 Tablet(s) Oral At Bedtime acetaminophen-hydrocodone (Lawler 10 mg-325 mg oral tablet) 1 Tablet(s) Oral Every 6 Hours as needed for for pain dapagliflozin (Farxiga) 10 Milligram(s) Oral Every Day DULoxetine (Cymbalta) 60 Milligram(s) Oral Two Times A Day ezetimibe (Zetia) 10 Milligram(s) Oral At Bedtime insulin glargine (Lantus Solostar Pen) 80 Unit(s) SubCutaneous At Bedtime insulin lispro (HumaLOG KwikPen) See instructions SubCutaneous TIDac per sliding scale liraglutide (Victoza) 1.8 Milligram(s) SubCutaneous Every Day metoprolol (Metoprolol Tartrate) 100 Milligram(s) Oral Two Times A Day pregabalin (Lyrica) 200 Milligram(s) Oral Two Times A Day ramipril 5 Milligram(s) Oral Every Day rivaroxaban (Xarelto) 2.5 Milligram(s) Oral Two Times A Day spironolactone 25 Milligram(s) Oral Every Day traZODone 100 Milligram(s) Oral At Bedtime Take your medications faithfully. Do NOT skip medication. Do NOT stop taking medications without the direction of a physician. Carry a list of your medications with you at all times, and take this medication list with you to your first follow up visit. Report any side effects. Avoid herbal remedies unless discussed with your physician. As part of your treatment plan, your physician may have prescribed a limited course of a controlled substance. This medication may be given to help people with moderate or severe pain or for other medical conditions, but there are risks involved with treatment. Common side effects may include nausea, constipation, drowsiness, sweating, itching, dry mouth, and rash. More serious side effects may include cognitive and motor impairment, like problems with thinking, concentrating, alertness, and movement (e.g. slowed reflexes), and driving and operating heavy machinery can be dangerous. It is important for you to talk to your physician if you have these side effects or questions. These controlled substances can produce physical dependence and be habit-forming if taken for an extended period of time, which means that the body has gotten used to them and may experience withdrawal symptoms if they are abruptly stopped. Withdrawal symptoms can include runny nose, sweating, goose bumps, diarrhea, abdominal cramping, rapid heartbeat, difficulty sleeping, and nervousness. Please dispose of unused and medications per pharmacy guidance. Education Materials Toe Amputation, Care After This sheet gives you information about how to care for yourself after your procedure. Your health care provider may also give you more specific instructions. If you have problems or questions, contact your health care provider. What can I expect after the procedure? After the procedure, it is common to have some pain. Pain usually improves within a week. Follow these instructions at home: Medicines ??? Take dhbc-ngu-ovtjtps and prescription medicines only as told by your health care provider. ??? If you were prescribed an antibiotic medicine, take it as told by your health care provider. Do not stop taking the antibiotic even if you start to feel better. ??? Ask your health care provider if the medicine prescribed to you: ? Requires you to avoid driving or using heavy machinery. ? Can cause constipation. You may need to take actions to prevent or treat constipation, such as: ? Drink enough fluid to keep your urine pale yellow. ? Take dqsa-fhk-kcywokm or prescription medicines. ? Eat foods that are high in fiber, such as beans, whole grains, and fresh fruits and vegetables. ? Limit foods that are high in fat and processed sugars, such as fried or sweet foods. Managing pain, stiffness, and swelling ??? If directed, put ice on the painful area. ? Put ice in a plastic bag. ? Place a towel between your skin and the bag. ? Leave the ice on for 20 minutes, 2???3 times a day. ??? Move your other toes often to reduce stiffness and swelling. ??? Raise (elevate) your foot above the level of your heart while you are sitting or lying down. Incision care ??? Follow instructions from your health care provider about how to take care of your incision. Make sure you: ? Wash your hands with soap and water before and after you change your bandage (dressing). If soap and water are not available, use hand circular knife machine cutter. ? Change your dressing as told by your health care provider. ? Leave stitches (sutures), skin glue, or adhesive strips in place. These skin closures may need to stay in place for 2 weeks or longer. If adhesive strip edges start to loosen and curl up, you may trim the loose edges. Do not remove adhesive strips completely unless your health care provider tells you to do that. ??? Check your incision area every day for signs of infection. Check for: ? More redness, swelling, or pain. ? Fluid or blood. ? Warmth. ? Pus or a bad smell. Bathing ??? Do not take baths, swim, use a hot tub, or soak your foot until your health care provider approves. Ask your health care provider if you may take showers. You may only be allowed to take sponge baths. ??? If your dressing has been removed, you may wash your skin with warm water and soap. Activity ??? Rest as told by your health care provider. ??? Avoid sitting for a long time without moving. Get up to take short walks every 1???2 hours. This is important to improve blood flow and breathing. Ask for help if you feel weak or unsteady. ??? If you have been given crutches, use them as told by your health care provider. ??? Do exercises as told by your health care provider. ??? Return to your normal activities as told by your health care provider. Ask your health care provider what activities are safe for you. General instructions ??? Do not drive for 24 hours if you were given a sedative during your procedure. ??? Do not use any products that contain nicotine or tobacco, such as cigarettes, e-cigarettes, and chewing tobacco. If you need help quitting, ask your health care provider. ??? Ask your health care provider about wearing supportive shoes or using inserts to help with your balance when walking. ??? If you have diabetes, keep your blood sugar under good control and check your feet daily for sores or open areas. ??? Keep all follow-up visits as told by your health care provider. This is important. Contact a health care provider if: ??? You have signs of infection at your incision, such as: ? Redness, swelling, or pain. ? Fluid or blood. ? Warmth. ? Pus or a bad smell. ??? You have a fever or chills. ??? Your dressing is soaked with blood. ??? Your sutures tear or they separate. ??? You have numbness or tingling in your toes or foot. ??? Your foot is cool or pale, or it changes color. ??? Your pain does not improve after you take your medicine. Get help right away if you have: ??? Pain or swelling near your incision that gets worse or does not go away. ??? Red streaks on your skin near your toes, foot, or leg. ??? Pain in your calf or behind your knee. ??? Shortness of breath. ??? Chest pain. Summary ??? After the procedure, it is common to have some pain. Pain usually improves within a week. ??? If you were prescribed an antibiotic medicine, take it as told by your health care provider. Do not stop taking the antibiotic even if you start to feel better. ??? Change your dressing as told by your health care provider. ??? Contact a health care provider if you have signs of infection. ??? Keep all follow-up visits as told by your health care provider. This is important. This information is not intended to replace advice given to you by your health care provider. Make sure you discuss any questions you have with your health care provider. Document Revised: 02/22/2020 Document Reviewed: 10/25/2019 [employer] Patient Education ?? [employer] Outpatient Surgery, Adult, Care After This sheet gives you information about how to care for yourself after your procedure. Your health care provider may also give you more specific instructions. If you have problems or questions, contact your health care provider. What can I expect after the procedure? After the procedure, it is common to have: ??? Tenderness and numbness at the surgical site. ??? Swelling, bruising, and numbness around the surgical site. ??? Nausea. Follow these instructions at home: For the time period you were told by your health care provider: ??? Rest. ??? Do not participate in activities where you could fall or become injured. ??? Do not drive or use machinery. ??? Do not drink alcohol. ??? Do not take sleeping pills or medicines that cause drowsiness. ??? Do not make important decisions or sign legal documents. ??? Do not take care of children on your own. Medicines ??? Take feyo-bfs-xcqbune and prescription medicines only as told by your health care provider. ??? If you were prescribed an antibiotic medicine, take it as told by your health care provider. Do not stop taking the antibiotic even if you start to feel better. ??? Ask your health care provider if the medicine prescribed to you: ? Requires you to avoid driving or using machinery. ? Can cause constipation. You may need to take these actions to prevent or treat constipation: ? Drink enough fluid to keep your urine pale yellow. ? Take vcia-juh-kklzwop or prescription medicines. ? Eat foods that are high in fiber, such as beans, whole grains, and fresh fruits and vegetables. ? Limit foods that are high in fat and processed sugars, such as fried or sweet foods. Eating and drinking ??? Follow the diet recommended by your health care provider. ??? When you are hungry, begin eating light and bland foods, such as toast. Gradually return to your regular diet. ??? If you vomit: ? Drink clear fluids slowly and in small amounts as you are able. Clear fluids include water, ice chips, low-calorie sports drinks, and fruit juice that has water added (diluted fruit juice). ? Eat bland, nsyb-jw-nxlkyj foods in small amounts as you are able. These foods include bananas, applesauce, rice, lean meats, toast, and crackers. Incision care ??? Follow instructions from your health care provider about how to take care of an incision, if you have one. Make sure you: ? Wash your hands with soap and water for at least 20 seconds before and after you change your bandage (dressing). If soap and water are not available, use hand circular knife machine cutter. ? Change your dressing as told by your health care provider. ? Leave stitches (sutures), skin glue, or adhesive strips in place. These skin closures may need to stay in place for 2 weeks or longer. If adhesive strip edges start to loosen and curl up, you may trim the loose edges. Do not remove adhesive strips completely unless your health care provider tells you to do that. ??? Check your incision area every day for signs of infection. Check for: ? Redness, swelling, or pain. ? Fluid or blood. ? Warmth. ? Pus or a bad smell. Activity ??? Do not play contact sports until your health care provider says it is okay. ??? Follow instructions from your health care provider about lifting heavy objects. You may be told not to lift things that weigh more than a certain amount. ??? Return to your normal activities as told by your health care provider. Ask your health care provider what activities are safe for you. General instructions ??? If you have sleep apnea, surgery and certain medicines can increase your risk for breathing problems. Follow instructions from your health care provider about wearing your sleep device: ? Anytime you are sleeping, including during daytime naps. ? While taking prescription pain medicines, sleep medicines, or medicines that make you drowsy. ??? Have a responsible adult stay with you for the time you are told. It is important to have someone help care for you until you are awake and alert. ??? Do not use any products that contain nicotine or tobacco, such as cigarettes, e-cigarettes, and chewing tobacco. These can delay healing after surgery. If you need help quitting, ask your health care provider. ??? Ask your health care provider when you can take baths or showers, swim, or use a hot tub. You may only be allowed to take sponge baths. ??? Keep all follow-up visits as told by your health care provider. This is important. Contact a health care provider if: ??? You have any of these signs of infection: ? Redness, swelling, or pain around your incision or IV site. ? Fluid or blood coming from your incision. ? Warmth coming from your incision. ? Pus or a bad smell coming from your incision. ? A fever. ??? You feel light-headed or you faint. ??? You develop a rash. ??? You keep feeling nauseous or keep vomiting. ??? You have severe pain, even after taking the medicines your health care provider has prescribed or recommended. ??? You have constipation. Get help right away if: ??? You cannot urinate. ??? You have trouble breathing. ??? You have chest pain. ??? Your legs become painful or swollen. These symptoms may represent a serious problem that is an emergency. Do not wait to see if the symptoms will go away. Get medical help right away. Call your local emergency services (911 in the [place] Do not drive yourself to the hospital. Summary ??? Nausea is common after a procedure. ??? Have a responsible adult stay with you for the time you are told. It is important to have someone help care for you until you are awake and alert. ??? Follow the diet recommended by your health care provider. If you vomit, drink clear fluids slowly and eat bland, xqaw-ko-ugbygx foods in small amounts. ??? Ask your health care provider what activities are safe for you. This information is not intended to replace advice given to you by your health care provider. Make sure you discuss any questions you have with your health care provider. Document Revised: 03/01/2021 Document Reviewed: 08/23/2020 [employer] Patient Education ?? 2020 [employer] Emergency Awareness and Preventative Care STROKE is an EMERGENCY Every Minute Counts Act FAST and Check for these signs: FACE Does the face look uneven? ARM Does one arm drift down? SPEECH Does their speech sound strange? TIME Call at any sign of stroke Stroke Risk Factors Atrial Fibrillation (irregular heartbeat) Diabetes Family history of stroke Heart Disease Heavy alcohol use High Blood Pressure High Cholesterol Physical inactivity and obesity Smoking Cigarette Smoking The facts are clear, cigarette smoking will shorten your life. Smoking can cause many illnesses along the way. As a healthcare provider, we recommend that you stop smoking. Assistance with quitting is available by contacting 5-484-ADUN-NOW. This is a free resource providing counseling, support, and referral. Or you may contact your personal physician. National Suicide Prevention Lifeline: The National Suicide Prevention Lifeline is a national network of local crisis centers that provides free and confidential emotional support to people in suicidal crisis or emotional distress 24 hours a day, 7 days a week. Don't Wait! Stop a Heart Attack Before it Starts What is a heart attack? A heart attack is damage or to a part of the heart from severely decreased or lack of blood flow to the heart. Over time, arteries can become narrow from the buildup of fat and cholesterol, which is called plaque. The plaque can rupture causing a blood clot to form. When the blood clot forms, the artery can become severely narrowed or completely blocked, causing a heart attack. Heart attack is the leading cause of in the [place]. 85% of muscle damage occurs within the first 2 hours. Delay in the recognition of heart attack symptoms increases the chances of . Know the early symptoms of a heart attack: Nausea Feeling of fullness in chest Jaw Pain Pain that travels down one or both arms Fatigue/being tired Anxiety Back Pain Chest pressure, squeezing, or discomfort Shortness of breath Sweating, or a cold sweat Feeling of impending doom There are unusual signs of a heart attack, too! Women, the elderly, and diabetics may present with atypical symptoms: Fainting/dizziness Weakness Confusion Risk Factors for a Heart Attack Some heart disease risk factors, such as age and family history, cannot be changed. Others, like smoking and lack of exercise, can be changed. Smoking High Cholesterol High Blood Pressure Family History Obesity Age Gender (Males are at higher risk) Lack of Exercise Diabetes Diet Stress Excessive Alcohol Intake If you or someone you know is experiencing the signs and symptoms of a heart attack, DON???T DELAY. Call immediately and seek help. If someone collapses, perform CPR! Do not attempt to drive if you are having symptoms of heart attack. Hands-Only CPR Why Hands-Only CPR? Hands-Only CPR has been shown to be as effective as conventional CPR for cardiac arrests that occur outside of a hospital. Survival depends on immediately receiving CPR from someone nearby. How do you perform Hands-Only CPR? There are two easy steps: Call if you see a teen or adult collapse Push hard and fast in the center of the chest at a beat of 100 beats per minute. Save a life! 4 WAYS TO GET AHEAD OF SEPSIS SEPSIS is a MEDICAL EMERGENCY. Time matters! Infections put you and your family at risk for a life-threatening condition called sepsis. Sepsis is the body's extreme response to an infection. It is life-threatening, and without timely treatment, sepsis can rapidly lead to tissue damage, organ failure, and . Sepsis happens when an infection you already have-in your skin, lungs, urinary tract or somewhere else-triggers a chain reaction throughout your body. 1 PREVENT INFECTIONS Take good care of chronic conditions. Talk to your doctor about getting the recommended vaccines. 2 PRACTICE GOOD HYGIENE Wash your hands frequently. Keep cuts or open sores clean and covered until they are healed. 3 KNOW THE SYMPTOMS Confusion or disorientation Shortness of breath High heart rate Fever, shivering, or feeling very cold Extreme pain or discomfort Clammy or sweaty skin 4 ACT FAST Get medical care IMMEDIATELY if you suspect sepsis or if you have an infection that is not getting better or is getting worse. To learn more about sepsis and how to prevent infections, visit www.cdc.gov/sepsis. Test Results Laboratory or Other Results This Visit (last charted value for your 05/15/2022 visit) Hematology 05/13/2022 10:47 AM WBC: 10.2 K/uL -- Normal range between ( 4.5 and 10.5 ) RBC: 5.05 Million/uL -- Normal range between ( 3.93 and 5.22 ) Hct: 43.1 % -- Normal range between ( 34.1 and 44.9 ) Hgb: 13.6 g/dL -- Normal range between ( 11.2 and 15.7 ) Platelet Count: 268 K/uL -- Normal range between ( 163 and 369 ) MCH: 26.9 pg -- Normal range between ( 25.6 and 32.2 ) MCHC: 31.6 Gram/dL -- Normal range between ( 32.2 and 36.5 ) MCV: 85.3 fL -- Normal range between ( 79.0 and 94.8 ) Slide Review: No RDW: 15.5 % -- Normal range between ( 11.7 and 14.9 ) MPV: 11.1 fL -- Normal range between ( 9.4 and 12.4 ) General Chemistry 05/15/2022 6:56 AM Glucose POC2: 210 mg/dL -- Normal range between ( 70 and 110 ) Device Comment 2: Device Comment 2 Device Comment 1: Device Comment 1 05/13/2022 10:47 AM Creatinine Level: 1.20 mg/dL -- Normal range between ( 0.55 and 1.02 ) Sodium Level: 139 mmol/L -- Normal range between ( 136 and 146 ) Potassium Level: 4.5 mmol/L -- Normal range between ( 3.5 and 5.1 ) Chloride Level: 105 mmol/L -- Normal range between ( 102 and 112 ) Carbon Dioxide Level: 27 mmol/L -- Normal range between ( 21 and 32 ) Anion Gap: 12 -- Normal range between ( 9 and 20 ) Bilirubin Total: 0.3 mg/dL -- Normal range between ( 0.2 and 1.2 ) A/G Ratio: 0.7 -- Normal range between ( 1.1 and 2.5 ) ALT: 17 Units/Liter -- Normal range between ( 13 and 56 ) AST: 15 Units/Liter -- Normal range between ( 5 and 37 ) Globulin: 4.3 Gram/dL -- Normal range between ( 1.5 and 4.5 ) Alk Phos: 85 Units/Liter -- Normal range between ( 27 and 136 ) Bun/Creatinine: 17.5 -- Normal range between ( 8.0 and 20.0 ) Calcium Level: 10.1 mg/dL -- Normal range between ( 8.4 and 10.1 ) eGFR : 57 mL/min/1.73m2 eGFR NonAfrican: 47 mL/min/1.73m2 Glucose Level: 186 mg/dL -- Normal range between ( 74 and 106 ) Blood Urea Nitrogen: 21 mg/dL -- Normal range between ( 7 and 22 ) Protein Total: 7.5 Gram/dL -- Normal range between ( 6.4 and 8.2 ) Albumin Level: 3.2 Gram/dL -- Normal range between ( 3.4 and 5.0 ) Patient Name:BEE COLON I have received this information and was given the opportunity to ask questions. Patient/Frame Assembler Name: Patient/Frame Assembler Signature: Relationship to Patient: Clinician/Hospital Frame Assembler Signature: Date: documented in this encounter Plan of Treatment Not on file documented as of this encounter Visit Diagnoses Not on filedocumented in this encounter
--- OUTSIDE RECORDS SUMMARY | 2025-04-25 00:07 | XMS_ITS | Encounter Summary ---
Author Organization [employer] Address [address] [place] [id number] Care Team Providers Care Supervisor Reclamation Name Role Phone Unavailable Primary Care Provider Unavailabl e Encounter Details Date Type Department Care Team (Late st Contact Info) Description 07/11/2021 Transcribed Document [facility] [place] [facility] [place] [address] ProviderEvangelista MD [address] [place] [address] Social History Tobacco Use Types Packs/Day Years Used Date Smoking Tobacco: Never Assessed Comments Unknown Sex and Gender Information Value Date Recorded Sex Assigned at Not on file Legal Sex Female 3:10 PM CDT Gender Identity Not on file Sexual Orientation Not on file documented as of this encounter Miscellaneous Notes * Cerner Conversion Note - Evangelista ProviderMD - 07/11/2021 11:07 AM CDT [facility] Main [place] PostOp Summary Primary Physician: MANI THOMAS MD-SUR Finalized Date/Time: 07/11/21 17:49:06 Pt. Name: BEE COLON/Sex: 1970 Female Med Rec #: [id number] Physician: MANI THOMAS MD-SUR Financial #: [id number] Pt. Type: O Room/Bed: Admit/Disch: 07/11/21 08:06:00 - Institution: [facility] Main OR PostOp Case Times Entry 1 In PACU II 07/11/21 11:24:00 Ready for PACU II 07/11/21 12:25:00 Discharge Discharge from PACU 07/11/21 12:25:00 II Last Modified By: Purvi Duffy Rn 07/11/21 17:49:03 Finalized By: Purvi Duffy Rn Document Signatures Signed By: Purvi Duffy Rn 07/11/21 17:49 documented in this encounter Plan of Treatment Not on file documented as of this encounter Visit Diagnoses Not on filedocumented in this encounter
--- OUTSIDE RECORDS SUMMARY | 2025-04-25 00:07 | XMS_ITS | Data Portability ---
Author Organization [facility] TISHA Ac [place] CLOS[facility] Address [address] [place] [address] Assessment No assessment recorded. Plan of Treatment Reminders Order Date Submit Date Provider Last Modified By Organization Details Last Modified Time Details Appointments None recorded. Lab glucose, fingerstic k, blood 2023 024 [facility], [address] [place] [address], [address], 4 15:21:02 hemoglobin A1C, fingerstic k 2023 024 [facility], [address] [place] [address], [address], 4 15:21:03 BMP, serum or plasma 2023 024 [facility], [address] [place] [address], [address], 4 16:57:00 microalbum in/creatin ine, mass ratio, urine 2023 024 [facility], [address] [place] [address], [address], 4 17:04:15 lipid panel, serum 2023 024 [facility], [address] [place] [address], [address], 4 16:56:58 hepatic function panel, serum 2023 024 [email or web address] [facility], [address] [place] [address], [address], 4 16:56:57 glucose, fingerstic k, blood 2022 023 [facility], [address] [place] [address], [address], 3 15:09:56 hemoglobin A1C, fingerstic k 2022 023 [facility], [address] [place] [address], [address], 3 15:09:56 microalbum in/creatin ine, mass ratio, urine 2022 023 [email or web address] [facility], [address] [place] [address], [address], 4 08:03:27 BMP, serum or plasma 2022 023 [email or web address] [facility], [address] [place] [address], [address], 4 08:03:28 lipid panel, serum 2022 023 [email or web address] [facility], [address] [place] [address], [address], 4 08:03:28 hepatic function panel, serum 2022 023 [email or web address] [facility], [address] [place] [address], [address], 4 08:03:28 glucose, fingerstic k, blood 2022 023 [facility], [address] [place] [address], [address], 3 14:55:56 glucose, fingerstic k, blood 2022 023 [facility], [address] [place] [address], [address], 3 15:00:30 hemoglobin A1C, fingerstic k 2022 023 [facility], [address] [place] [address], [address], 3 15:00:30 microalbum in/creatin ine, mass ratio, urine 2022 023 [email or web address] [facility], [address] [place] [address], [address], 4 09:22:02 BMP, serum or plasma 2022 023 [facility], [address] [place] [address], [address], 4 09:22:02 lipid panel, serum 2022 023 [email or web address] [facility], [address] [place] [address], [address], 4 09:22:01 hepatic function panel, serum 2022 023 [facility], [address] [place] [address], [address], 4 09:22:01 glucose, fingerstic k, blood 2021 022 [facility], [address] [place] [address], [address], 2 14:40:04 hemoglobin A1C, fingerstic k 2021 022 [facility], [address] [place] [address], [address], 2 14:40:03 Referral None recorded. Procedures None recorded. Surgeries None recorded. Imaging None recorded. Medication Orders Novolog FlexPen U-100 Insulin aspart 100 unit/mL (3 mL) subcutaneo us 2023 024 [facility], [address] [place] [address], [address], [place], [address], 4 15:25:01 Farxiga 10 mg tablet 2023 024 [facility], [address] [place] [address], [address], [place], [address], 4 15:25:02 Lantus Solostar U-100 Insulin 100 unit/mL (3 mL) subcutaneo us pen 2023 024 [facility], [address] [place] [address], [facility], [place], [address], 4 15:24:56 Ozempic 1 mg/dose (4 mg/3 mL) subcutaneo us pen injector 2023 024 [email or web address] 8 [facility], [address] [place] [address], [facility], [place], [address], 4 15:58:04 Lantus Solostar U-100 Insulin 100 unit/mL (3 mL) subcutaneo us pen 2022 023 [facility], [address] [place] [address], [facility], [place], [address], 3 15:12:29 Humalog KwikPen (U-100) Insulin 100 unit/mL subcutaneo us 2022 023 [email or web address] 150 [facility], [address] [place] [address], [address], [place], [address], 3 14:40:27 Victoza 3-Ajay 0.6 mg/0.1 mL (18 mg/3 mL) subcutaneo us pen injector 2022 023 [facility], [address] [place] [address], [address], [place], [place], [address], 3 15:12:31 Farxiga 10 mg tablet 2022 023 [facility], [address] [place] [address], [address], [place], [address], 3 15:05:58 Humalog KwikPen (U-100) Insulin 100 unit/mL subcutaneo us [address], [address] [place] [address], [facility], [place], [place], [address], 3 14:40:27 Lantus Solostar U-100 Insulin 100 unit/mL (3 mL) subcutaneo us pen 2022 023 [facility], [address] [place] [address], [address], [place], [address], 3 15:05:59 Victoza 3-Ajay 0.6 mg/0.1 mL (18 mg/3 mL) subcutaneo us pen injector 2022 023 [facility], [address] [place] [address], [facility] 2, [place], [address], 3 15:06:03 Farxiga 10 mg tablet 2022 023 [facility], [address] [place] [address], [address], [place], [address], 3 15:47:06 Humalog KwikPen (U-100) Insulin 100 unit/mL subcutaneo us [address], [address] [place] [address], [address], [place], [address], 3 14:40:27 Lantus Solostar U-100 Insulin 100 unit/mL (3 mL) subcutaneo us pen 2022 023 [facility], [address] [place] [address], [address], [place], [address], 3 15:06:19 Victoza 3-Ajay 0.6 mg/0.1 mL (18 mg/3 mL) subcutaneo us pen injector 2022 023 [facility], [address] [place] [address], [address], [place], [address], 3 15:06:17 Farxiga 10 mg tablet 2021 022 [facility], [address] [place] [address], [address], [place], [address], 14:41:29 Humalog KwikPen (U-100) Insulin 100 unit/mL subcutaneo us [address], [address] [place] [address], [address], [place], [address], 3 14:40:27 Lantus Solostar U-100 Insulin 100 unit/mL (3 mL) subcutaneo us pen 2021 022 [facility], [address] [place] [address], [facility] 2, [place], [address], 2 14:41:28 Victoza 3-Ajay 0.6 mg/0.1 mL (18 mg/3 mL) subcutaneo us pen injector 2021 022 [facility], [address] [place] [address], [address], [place], [address], 14:41:28 Patient TargetsNo targets recorded. Patient InstructionsNo instructions recorded. Reason for Referral None Reported. Results Created Date Observation Date Name Description Value Unit Range Abnormal Flag Note LastModifiedBy Organization Detail LastModifiedTime 09/23/20 22 09/23/2022 hemog lobin A1C, finge rstic k hemoglobin A1C % 8.7 % 4.0 - 5.6 Not Available [facility] [address] [place] [address], [address], 09/23/2022 14:10:19 09/23/20 22 09/23/2022 gluco se, finge rstic k, blood glucose, fingerstick 159 mg/dL 70 - 100 Not Available [facility] [address], [address], 09/23/2022 14:09:55 12/30/19 23 12/30/2022 hemog lobin A1C, finge rstic k hemoglobin A1C % 8.1 % 4.0 - 5.6 Not Available [facility] [address], [address], 12/30/2022 14:52:49 12/30/19 23 12/30/2022 gluco se, finge rstic k, blood glucose, fingerstick 214 mg/dL 70 - 100 Not Available [facility] [address], [address], 12/30/2022 14:52:14 05/06/20 23 05/06/2023 gluco se, finge rstic k, blood glucose, fingerstick 218 mg/dL 70 - 100 Not Available [facility] [address], [address], 05/06/2023 14:19:19 09/02/2009/02/2023 hemog lobin A1C, finge rstic k hemoglobin A1C % 9.6 % 4.0 - 5.6 Not Available [facility] [address], [address], 09/02/2023 14:20:15 09/02/20 23 09/02/2023 gluco se, finge rstic k, blood glucose, fingerstick 313 mg/dL 70 - 100 Not Available [facility] [address] [place] [address], [address], 09/02/2023 14:20:00 12/24/19 24 12/24/2023 HEPAT IC (LIVE R) PANEL AST 16 U/L 0-32 normal Not Available [facility] [address] [place] [address], [address], 12/24/2023 16:56:57 12/24/19 24 12/24/2023 HEPAT IC (LIVE R) PANEL ALT 12 U/L 0-33 normal Not Available [facility] [address] [place] [address], [address], 12/24/2023 16:56:57 12/24/19 24 12/24/2023 HEPAT IC (LIVE R) PANEL alkaline phosphatase 95 U/L 30-121 normal Not Available [facility] [address] [place] [address], [address], 12/24/2023 16:56:57 12/24/19 24 12/24/2023 HEPAT IC (LIVE R) PANEL total protein 7.8 g/dL 6.4-8. 3 normal Not Available [facility] [address] [place] [address], [address], 12/24/2023 16:56:57 12/24/19 24 12/24/2023 HEPAT IC (LIVE R) PANEL albumin 3.9 g/dL 3.5-5. 2 normal Not Available [facility] [address] [place] [address], [address], 12/24/2023 16:56:57 12/24/19 24 12/24/2023 HEPAT IC (LIVE R) PANEL bilirubin, total 0.2 mg/dL 0.1-1. 2 normal Not Available [facility] [address] [place] [address], [address], 12/24/2023 16:56:57 12/24/19 24 12/24/2023 HEPAT IC (LIVE R) PANEL bilirubin, direct <0.2 mg/dL 0.0-0. 3 normal Not Available [facility] [address] [place] [address], [address], 12/24/2023 16:56:57 12/24/19 24 12/24/2023 HEPAT IC (LIVE R) PANEL bilirubin, indirect see below mg/dL _(adeline c) 0.0-1. 0 normal Unabl e to calcu late Indir ect Bilir ubin. Not Available [facility] [address] [place] [address], [address], 12/24/2023 16:56:57 12/24/19 24 12/24/2023 LIPID PROFI LE HDL cholesterol 36 mg/dL 50-242 low Not Available [facility] [address] [place] [address], [address], 12/24/2023 16:56:58 12/24/19 24 12/24/2023 LIPID PROFI LE triglyceride s 203 mg/dL 0-149 high TRIGL YCERI DE RANGE S JACK L: < 150 BORDE RLINE HIGH: 150 - 199 HIGH: 200 - 499 VERY HIGH: > OR = 500 Not Available [facility] [address] [place] [address], [address], 12/24/2023 16:56:58 12/24/19 24 12/24/2023 LIPID PROFI LE cholesterol 107 mg/dL 0-199 normal IRMA STERO L (TOTA L) RANGE S KATHY ABLE: < 200 BORDE RLINE : 200 - 239 HIGHE R RISK: > 239 Not Available [facility] [address] [place] [address], [address], 12/24/2023 16:56:58 12/24/19 24 12/24/2023 LIPID PROFI LE LDL cholesterol 30 mg/dL _(adeline c) 0-99 normal LDL IRMA STERO L RANGE S OPTIM AL: < 100 NEAR/ ABOVE OPTIM AL: 100 - 129 BORDE RLINE HIGH: 130 - 159 HIGH: 160 - 189 VERY HIGH: > OR = 190 Not Available [facility] [address] [place] [address], [address], 12/24/2023 16:56:58 12/24/19 24 12/24/2023 BASIC METAB OLIC PANEL glucose 117 mg/dL 74-100 high Not Available [facility] [address] [place] [address], [address], 12/24/2023 16:57:00 12/24/19 24 12/24/2023 BASIC METAB OLIC PANEL blood urea nitrogen 17 mg/dL 6-20 normal Not Available [facility] [address] [place] [address], [address], 12/24/2023 16:57:00 12/24/19 24 12/24/2023 BASIC METAB OLIC PANEL creatinine 1.13 mg/dL 0.50-0 .95 high Not Available [facility] [address] [place] [address], [address], 12/24/2023 16:57:00 12/24/19 24 12/24/2023 BASIC METAB OLIC PANEL BUN/creatini ne ratio 15 (calc ) 10-20 normal Not Available [facility] [address] [place] [address], [address], 12/24/2023 16:57:00 12/24/19 24 12/24/2023 BASIC METAB OLIC PANEL sodium 139 mmol/ L 136-14 5 normal Not Available [facility] [address] [place] [address], [address], 12/24/2023 16:57:00 12/24/19 24 12/24/2023 BASIC METAB OLIC PANEL potassium 4.6 mmol/ L 3.4-5. 0 normal Not Available [facility] [address] [place] [address], [address], 12/24/2023 16:57:00 12/24/19 24 12/24/2023 BASIC METAB OLIC PANEL chloride 105 mmol/ L 98-107 normal Not Available [facility] [address] [place] [address], [address], 12/24/2023 16:57:00 12/24/19 24 12/24/2023 BASIC METAB OLIC PANEL carbon dioxide 24 mmol/ L 22-31 normal Not Available [facility] [address] [place] [address], [address], 12/24/2023 16:57:00 12/24/19 24 12/24/2023 BASIC METAB OLIC PANEL anion gap 10 (calc ) 7-25 normal Not Available [facility] [address] [place] [address], [address], 12/24/2023 16:57:00 12/24/19 24 12/24/2023 BASIC METAB OLIC PANEL calcium 9.3 mg/dL 8.6-10 .2 normal Not Available [facility] [address] [place] [address], [address], 12/24/2023 16:57:00 12/24/19 24 12/24/2023 BASIC METAB OLIC PANEL GFR 57 >= 60 abnormal NOT E New calcu latio n for GFR (CKD- EPI 2020) is formu lated witho ut race adjus tment facto rs at the [facility] menda tion of the Megan Magdaleno y Elmer atisaiah and [facility] . This calcu latio n has not been valid ated in pregn ant women . For pedia tric patie nts refer to https ://cortes flanagan.sandy art/pr leny colonal s/KDO QI/gf r_cal culat orPed Not Available [facility] [address] [place] [address], [address], 12/24/2023 16:57:00 12/24/19 24 12/24/2023 MICRO ALBUM IN/CR EAT RATIO microalbumin , random 12 mg/L 0-19 normal Not Available [facility] [address] [place] [address], [address], 12/24/2023 17:04:15 12/24/19 24 12/24/2023 MICRO ALBUM IN/CR EAT RATIO creatinine,u r,random 94 mg/dL normal NO JACK L RANGE ESTAB LISHE D FOR RANDO M URINE . Not Available [facility] [address] [place] [address], [address], 12/24/2023 17:04:15 12/24/19 24 12/24/2023 MICRO ALBUM IN/CR EAT RATIO MA/creatinin e ratio see below mcg/m g_cre at 0-29 normal Unabl e to calcu late micro album in/cr eatin ine ratio . Not Available [facility] [address] [place] [address], [address], 12/24/2023 17:04:15 12/24/19 24 12/24/2023 hemog lobin A1C, finge rstic k hemoglobin A1C % 9.6 % 4.0 - 5.6 Not Available [facility] [address] [place] [address], [address], 12/24/2023 14:59:59 12/24/19 24 12/24/2023 gluco se, finge rstic k, blood glucose, fingerstick 168 mg/dL 70 - 100 Not Available [facility] [address] [place] [address], [address], 12/24/2023 14:59:46 Result Notes None recorded. Problems No Known Problems Medical Equipment None Reported. Allergies Allergen ID Allergen Name Allergen Category Reaction Reaction Severity Criticality Documentation Date Start Date Code Code System Note Provider Name and Address Organization Details Recorded Time 020457 morphine sulfate medicatio n Not available Not available Not available 10/09/20162006 28417 RxNorm Comme nt: Creat ed By: Daniel eth;C reate d Date: 2006 3:24: 04 PM; Not Available [facility] 6 11:27:47 118587 codeine medicatio n Not available Not available Not available 10/09/20162006 2670 RxNorm Comme nt: Creat ed By: Barrett and Jesse Barragan reate d Date: 2006 3:23: 21 PM; Not Available [facility] 6 13:16:43 840769 amoxicill in medicatio n Not available Not available Not available 06/12/2021 723 [facility] 14:18:35 759377 acetamino phen / oxycodone medicatio n Not available Not available Not available 06/12/2021 06598 3 [facility] 14:18:49 Medications Name Sig Start Date Stop [...] Updated DateTime 4 167.64 cm 46 kg/m2 382880. 83 g 95 /min 124 mm[Hg] 62 mm[Hg] Griselda [facility] 4 14:57:32 Date Recorded Body height Body mass index (BMI) Body weight Heart rate Systolic blood pressure Diastolic blood pressure Provider Name and Address Organization Details Last Updated DateTime 3 167.64 cm 46.8 kg/m2 196813. 79 g 83 /min 130 mm[Hg] 76 mm[Hg] Debra Reed [facility] 3 14:47:32 Date Recorded Body height Heart rate Systolic blood pressure Diastolic blood pressure Provider Name and Address Organization Details Last Updated DateTime 05/06/2023 167.64 cm 91 /min 130 mm[Hg] 62 mm[Hg] Geovani David [facility] 05/06/2023 14:16:53 Date Recorded Body height Heart rate Systolic blood pressure Diastolic blood pressure Provider Name and Address Organization Details Last Updated DateTime 09/02/2023 167.64 cm 90 /min 125 mm[Hg] 60 mm[Hg] Griselda [facility] 09/02/2023 14:18:55 Date Recorded Body height Body mass index (BMI) Body weight Heart rate Systolic blood pressure Diastolic blood pressure Provider Name and Address Organization Details Last Updated DateTime 2 167.64 cm 47.6 kg/m2 517410. 75 g 76 /min 106 mm[Hg] 62 mm[Hg] Suzanna Moore [facility] 2 14:06:58 Social History Question Answer Notes LastModified by Organizat ion Details LastModified Time Tobacco Smoking Status [facility] 03/12/2021 14:46:35 What Was The Date Of Your Most Recent Tobacco Screening? 10/09/2021 [email or web address] Information not available 10/09/2021 How Many Years Have You Smoked Tobacco? 25 [email or web address] Information not available 03/12/2021 Sex: Female Functional Status None recorded. Mental Status None recorded. Family History Nothing Reported. 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 Condition Response Heart Attack (CT) Y Diabetes Y Gynecological HistoryNo gynecological history recorded. Obstetrics History GPAL:G 0 P 0 0 0 0 Past Encounters Encounter ID Performer Location Encounter Start Date Encounter Closed Date Diagnosis/Indication Diagnosis SNOMED-CT Code Diagnosis ICD10 Code Diagnosis Note [id number] ROBBY BARRAGAN MD [facility] [address] [place] [address] 03/12/2021 14:15:47 03/12/2021 16:29:29 Uncontrolled type 2 diabetes mellitus 487549965 E11.65 A1c in the office today of [...] diet. Provided with educationa l materials from [employer] about hypoglycem ia symptom recognitio n and treatment, insulin therapy, hyperglyce rekha. 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 Peripheral neuropathy due to type 2 diabetes mellitus 8308062022 107 E11.42 Counseled about the importance of glycemic control to slow further progressio n of diabetic neuropathy /diabetic/ Charcot's joint obtained of a dilated. 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 adams office Emphasized on the importance of bringing her glucose meter with her to the office next office visit. Patient verbalized understand ing and agreed with the above mentioned plan of care. I would like to thank Dr. Lynch for the opportunit y to participat e in the care of this patient. [id number] ROBBY BARRAGAN MD [facility] [address] [place] [address] 06/12/2021 13:51:24 06/13/2021 10:27:33 Uncontrolled type 2 diabetes mellitus [id number] E11.65 A1c in the office today of 7.8 up from 7.2% Random point-of-c are blood glucose 136 Goal A1c less than 7% Worsening glycemic control i.e. 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 Hyperlipidemia [id number] E78.5 Lipid panel and LFTs today Further management to be determined as appropriat e Essential hypertension 35301912 I10 Blood pressure of 104/62Cont inue current regimen Urinary ACR BMB today Patient verbalized understand ing and agreed with the above mentioned plan of care. [id number] ROBBY BARRAGAN MD [facility] [address] [place] [address] 10/09/2021 13:54:06 10/17/2021 14:01:40 Uncontrolled type 2 diabetes mellitus [id number] E11.65 A1c in the office today of [...] before dinner Less than 70: No insulin 71 1 40: 8 units 141 2 00: 12 units 201 3 00:16 unit Above 300:20 units Continue Farxiga 10 [...] o obtain her podiatry notes from her jacquard loom card changer Fasting lipid panel including LFTs, lipid panel and urinary ACR before next visit after 3 months. [id number] ROBBY BARRAGAN MD [facility] [address] [place] [address] 01/08/2022 14:13:57 01/10/2022 13:07:42 Uncontrolled type 2 diabetes mellitus [id number] E11.65 A1c in the office today of [...] before dinner Less than 70: No insulin 71 1 40: 10 units 141 2 00: 14 units 201 3 00:18 unit Above 300:22 units Continue Farxiga 10 mg every a.m. before breakfast Continue Victoza 1.8 mg subcutaneo us daily Check blood sugar 4 times before meals and at bedtime Blood pressure in the office today of 118/66 She is currently on statin therapy Provided with a code to share her sensor data with our clinic. [id number] ROBBY BARRAGAN MD [facility] [address] [place] [address] 04/09/2022 13:51:39 04/09/2022 15:09:29 Uncontrolled type 2 diabetes mellitus [id number] E11.65 A1c in the office today of [...] before dinner Less than 70: No insulin 71 1 40: 10 units 141 2 00: 14 units 201 3 00:18 unit Above 300:22 units Continue Farxiga 10 mg every a.m. before breakfast Continue Victoza 1.8 mg subcutaneo us daily Check blood sugar 4 times before meals and at bedtime Blood pressure in the office today of 118/66Shkaren is currently on statin therapy Provided with a code to share her sensor data with our clinic. Hyperlipidemia 29400213 E78.5 Lipid panel and LFTs todayConti nue current rosuvastat in therapy Instructed about the importance of low-choles terol diet Further management to be determined as appropriat e Peripheral neuropathy due to type 2 diabetes mellitus [id number] 107 E11.42 Counseled about the importance of glycemic control to slow further progressio n of diabetic neuropathy /diabetic/ Charcot's jointConti nue to follow with podiatry Patient verbalized understand ing and agreed with the above mentioned plan of care. [id number] ROBBY BARRAGAN MD [facility] [address] [place] [address] 07/09/2022 14:17:43 07/09/2022 15:28:43 Uncontrolled type 2 diabetes mellitus [id number] E11.65 A1c in the office today of [...] before dinner Less than 70: No insulin 71 1 40: 10 units 141 2 00: 14 units 201 3 00:18 unit Above 300:22 units Continue Farxiga 10 mg every a.m. before breakfast Continue Victoza 1.8 mg subcutaneo us daily Check blood sugar 4 times before meals and at bedtime Blood pressure in the office today of [place] is currently on statin therapy [id number] ROBBY BARRAGAN MD [facility] [address] [place] [address] 09/23/2022 13:47:51 09/23/2022 15:29:28 Uncontrolled type 2 diabetes mellitus [id number] E11.65 A1c in the office today of [...] before dinner Less than 70: No insulin 71 1 40: 10 units 141 2 00: 14 units 201 3 00:18 unit Above 300:22 units Continue Farxiga 10 mg every a.m. before breakfast Continue Victoza 1.8 mg subcutaneo us daily Check blood sugar 4 times before meals and at bedtime Blood pressure in the office today of [place]/María is currently on statin therapy [id number] ROBBY BARRAGAN MD [facility] [address] [place] [address] 12/30/2022 14:34:01 12/30/2022 15:52:18 Uncontrolled type 2 diabetes mellitus [id number] E11.65 A1c in the office today of [...] lunch and dinnerLess than 70: No insulin 71 1 40: 10 units 141 2 00: 14 units 201 3 00:18 unit Above 300:22 units Continue Farxiga 10 mg every a.m. before breakfast Continue Victoza 1.8 mg subcutaneo us daily Check blood sugar 4 times before meals and at bedtime Blood pressure in the office today of 118/66Shkaren is currently on statin therapy Hyperlipidemia [id number] E78.5 Lipid panel and LFTsLabs to be done at an outside facility and faxed to our office for patient requestCon tinue current rosuvastat in therapyIns tructed about the importance of low-choles terol dietFurthe r management to be determined as appropriat e [id number] ROBBY BARRAGAN MD ENDOCRINO LOGY [address] [place] [address] 05/06/2023 13:58:15 05/06/2023 14:58:33 Uncontrolled type 2 diabetes mellitus [id number] E11.65 A1c in the office today of [...] lunch and dinnerLess than 70: No insulin 71 1 40: 10 units 141 2 00: 14 units 201 3 00:18 unit Above 300:22 units Continue Farxiga 10 mg every a.m. before breakfast Continue Victoza 1.8 mg subcutaneo us daily Check blood sugar 4 times before meals and at bedtime Blood pressure in the office today of 130/62She is currently on statin therapy Hyperlipidemia [id number] E78.5 Lipid panel and LFTs from outside facility on 03/30/2023 reviewed [LDL of 97.8, triglyceri vivian of 234 and total cholestero l 164 and HDL cholestero l of 38.Continu e current rosuvastat in therapyIns tructed about the importance of low-choles terol dietPatien t verbalized understand ing and agreed with the above mentioned plan of care. [id number] ROBBY BARRAGAN MD ENDOCRINO LOGY [address] [place] [address] 09/02/2023 14:09:48 09/03/2023 04:53:33 Uncontrolled type 2 diabetes mellitus [id number] E11.65 A1c in the office today of [...] and lunch Less than 70: No insulin 71 1 40: 8 units 141 2 00: 10 units 201 3 00: 12 unit Above 300:16 units Before dinner Less than 70: No insulin 71 1 40: 14 units 141 2 00: 18 units 201 3 00: 22 unit Above 300: 26 units Continue Farxiga 10 mg every a.m. before breakfast Continue Victoza 1.8 mg subcutaneo us daily Check blood sugar 4 times before meals and at bedtime. Check blood sugar 4 times before meals and at bedtimeBlo od pressure in the office today of 130/62She is currently on statin therapy Peripheral neuropathy due to type 2 diabetes mellitus [id number] 107 E11.42 Severe peripheral neuropathy Counseled about the importance of glycemic control to slow further progressio n of diabetic neuropathy /diabetic/ Charcot's jointConti nue to follow with podiatry Hyperlipidemia [id number] E78.5 Lipid panel and LFTs from outside facility on 03/30/2022 reviewed [LDL of 97.8, triglyceri vivian of 234 and total cholestero l 164 and HDL cholestero l of 38.Continu e current rosuvastat in therapyIns tructed about the importance of low-choles terol dietPatien t verbalized understand ing and agreed with the above mentioned plan of care. [id number] ROBBY BARRAGAN MD ENDOCRINO LOGY [address] [place] [address] 12/24/2023 14:47:11 12/24/2023 15:40:35 Uncontrolled type 2 diabetes mellitus [id number] E11.65 A1c in the office today of [...] dilated eye exam i.e. Dr. adams Hyperlipidemia [id number] E78.5 Lipid panel and LFTs from outside [...] neuropathy due to type 2 diabetes mellitus [id number] 107 E11.42 Severe peripheral neuropathy Recounsele d about the importance of glycemic control to slow further progressio n of diabetic neuropathy /diabetic/ Charcot's jointConti nue to follow with podiatry Essential hypertension [id number] I10 Blood pressure of 124/62Cont inue current regimenUri nary ACR &BMB todayPatie nt verbalized understand ing and agreed with the above mentioned plan of care. Health Concerns Section Related Observation LastModified by Organization Detai ls LastModified Time None Recorded Concern Status LastModified by Organization Details LastModified Time None Recorded Advance Directives Directive None Recorded Payers Insurance Date Sequence Insurance Name Policy Number Policy Godoy Covered Member ID Godoy Member ID Guarantor Name 08/24/2024 1 [employer] (MEDICARE REPLACEMENT/AD VANTAGE - PPO) Bee B Isaiah [id number] Bee B Isaiah 12/23/2023 2 [facility] [place] [id number] Bee B Isaiah [id number] Bee B Isaiah 09/09/2024 1 [place] Bee B Isaiah [id number] Bee B Isaiah 09/09/2024 1 [facility]MED[place] REPLACEMENT HMO) [id number] Bee B Isaiah [id number] Bee B Isaiah Notes Date Note Type Note Provider Name [...] before dinner Less than 70: No insulin 71 1 40: 8 units 141 2 00: 12 units 201 3 00:16 unit Above 300:20 units Farxiga 10 mg [...] left foot amputation. History of coronary artery disease/CT status post cardiac stenting. ROBBY BARRAGAN MD [address] [place] [address], [phone], [facility] 09/23/2022 14:40:38 12/30/2022 text/html 52-year-old female [...] scale before dinnerLess than 70: No insulin 71 1 40: 10 units 141 2 00: 14 units 201 3 00:18 unit Above 300:22 unitsReported recently taking her [...] left foot amputation. History of coronary artery disease/CT status post cardiac stenting. ROBBY BARRAGAN MD [address] [place] [address], [phone], [facility] 12/30/2022 15:49:32 05/06/2023 text/html 52-year-old female [...] and dinner Less than 70: No insulin 71 1 40: 10 units 141 2 00: 14 units 201 3 00:18 unit Above 300:22 units Farxiga 10 mg [...] with Dr. Solo podiatryHistory of coronary artery disease/CT status post cardiac stenting. ROBBY BARRAGAN MD [address] [place] [address], [phone], [facility] 05/06/2023 14:58:18 09/02/2023 text/html 53-year-old female [...] and dinner Less than 70: No insulin 71 1 40: 10 units 141 2 00: 14 units 201 3 00:18 unit Above 300:22 units Farxiga 10 mg [...] Solo podiatry [healing closeHistory of coronary artery disease/CT status post cardiac stenting. ROBBY BARRAGAN MD [address] [place] [address], [phone], [facility] 09/02/2023 15:16:38 12/24/2023 text/html 53-year-old female [...] and dinner Less than 70: No insulin 71 1 40: 10 units 141 2 00: 14 units 201 3 00:18 unit Above 300:22 units Farxiga 10 mg [...] Solo podiatry [healing closeHistory of coronary artery disease/CT status post cardiac stenting. ROBBY BARRAGAN MD [address] [place], [phone], [facility] 12/24/2023 15:35:11 OBGyn Episode No OBEpisode recorded.
--- OUTSIDE RECORDS SUMMARY | 2025-04-25 00:07 | XMS_ITS | Clinical Summary ---
Author Organization [employer] Address [address] [place] [address] Care Team Providers Care Fishing Reel Assembler Name Role Phone Unavailable Primary Care Provider Unavailabl e Social History Tobacco Use Types Packs/Day Years Used Date Smoking Tobacco: Never Assessed Comments Unknown Sex and Gender Information Value Date Recorded Sex Assigned at Not on file Legal Sex Female 3:10 PM CDT Gender Identity Not on file Sexual Orientation Not on file Plan of Treatment Not on file
--- OUTSIDE RECORDS SUMMARY | 2025-04-25 00:07 | XMS_ITS | Encounter Summary ---
Author Organization [employer] Address [address] [place] [address] Care Team Providers Care Hospital Orderly Name Role Phone Unavailable Primary Care Provider Unavailabl e Encounter Details Date Type Department Care Team (Late st Contact Info) Description 06/06/2020 Transcribed Document [facility] Family Medicine [place] [address] ProviderEvangelista MD [address], [place] [id number] Social History Tobacco Use Types Packs/Day Years Used Date Smoking Tobacco: Never Assessed Comments Unknown Sex and Gender Information Value Date Recorded Sex Assigned at Not on file Legal Sex Female 3:10 PM CDT Gender Identity Not on file Sexual Orientation Not on file documented as of this encounter Miscellaneous Notes * Cerner Conversion Note - Evangelista Carbone MD - 06/06/2020 5:19 PM CDT Patient: BEE COLON Age: 49 Years Sex: Female : 1970 FOLLOW-UP Date of Service: 05/21/2020 CHIEF COMPLAINT: Low back pain. HISTORY OF PRESENT ILLNESS: This is a 49 y/o female being seen in follow-up with a 10+ year history of low back pain that radiates down the bilateral lower extremities with numbness and tingling. She also describes her pain as constant, aching, burning and sharp. The pain is exacerbated with walking and standing and reduced with leg elevation medication. She currently rates the pain as a 7/10 VAS and reports a 75% reduction with medication. Medication list reviewed. Pertinent medications are noted to be Hydrocodone 10 mg 1 p.o. q.6h., Lyrica 200 mg 1 p.o. every 12 hours, tramadol 50 mg 1 p.o. q.6h., Cymbalta 60 mg 1 p.o. every 12 hours, trazodone 100 mg 1/2 to 1 p.o. at bedtime. She also recently received an Ativan prescription prescribed by another practice. Nursing intake reviewed. Fall info sheet provided. HISTORY: Allergies: Codeine, morphine, Percocet, amoxicillin. Social History: Marital status: . Current work status: Disabled. Illicit drug use: Denies. Alcohol use: Denies. Current tobacco use: Denies. Caffeine use: Denies. Past 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: Reviewed. Past Surgical History: Reviewed. Past Family History: Reviewed. REVIEW OF SYSTEMS: General: Fatigue. Respiratory: Negative. Neurological: Dizziness, numbness and tingling. Gastrointestinal: Last bowel movement 05/20, soft. Musculoskeletal: Joint pain, stiffness, back pain. Cardiovascular: Negative. Psychiatric: Anxiety. HEENT: Negative. Endocrine: Negative. Hematology: Negative. Skin: Negative. Genitourinary: Negative. VITAL SIGNS: Vital signs are reviewed. BP 139.83, heart rate 112, respiratory rate 20, O2 SATs 95% on room air, height 5???6?? , weight 290 lbs. PHYSICAL EXAMINATION: Constitutional: Conversant, no acute distress, well-nourished. Integumentary: Deferred. HEENT: Normocephalic. Neck: Deferred. Chest and Lung: Deferred. Cardiovascular: Deferred. Abdomen: Deferred. Peripheral Vascular: Deferred Neurologic: Deferred. Musculoskeletal: Ambulatory with a cane. Able to transition independently from walking, sitting, standing. Antalgic gait. Psychiatric: Alert and oriented x 3. Denies suicidal ideation. Normal mood and affect. No signs of impairment. DIAGNOSTIC STUDIES: Not present MEDICAL DECISION MAKING: Stable. ASSESSMENT: 1. Chronic pain syndrome. 2. Lumbar degenerative disc disease. 3. Lumbar radiculitis to bilateral lower extremities. PROCEDURE/TEST ORDERED: Not present. CURRENT PLAN: We will continue current medications. Urine tox screen today. DEVYN reviewed. Questions answered to her satisfaction and she verbalized understanding. Return to the clinic in two months. DAYTON Cole/jonil Electronically signed by [facility] Conversion Side Splitter Cerner at 03/05/2023 7:03 PM CDT documented in this encounter Plan of Treatment Not on file documented as of this encounter Visit Diagnoses Not on filedocumented in this encounter
--- OUTSIDE RECORDS SUMMARY | 2025-04-25 00:07 | XMS_ITS | Encounter Summary ---
Author Organization [employer] Address [address] [place] [address] Care Team Providers Care Mangle Tender Cloth Name Role Phone Unavailable Primary Care Provider Unavailabl e Encounter Details Date Type Department Care Team (Late st Contact Info) Description 12/17/2019 Transcribed Document [facility] [place] [address] ProviderEvangelista MD [address] [phone] Social History Tobacco Use Types Packs/Day Years Used Date Smoking Tobacco: Never Assessed Comments Unknown Sex and Gender Information Value Date Recorded Sex Assigned at Not on file Legal Sex Female 3:10 PM CDT Gender Identity Not on file Sexual Orientation Not on file documented as of this encounter Miscellaneous Notes * Cerner Conversion Note - Evangelista Carbone MD - 12/17/2019 1:14 PM MANAGER CORPORATE MARKETING Patient: BEE COLON Age: 49 Years Sex: Female : 1970 FOLLOW-UP Date of Service: 12/13/2019 CHIEF COMPLAINT: Low back pain, bilateral leg pain. HISTORY OF PRESENT ILLNESS: The patient is a 49 y/o female who returns to the Clinic today with a 10 year history significant for low back pain, bilateral leg pain, bilateral foot pain. She has a known history of painful peripheral diabetic neuropathy. She has been utilizing [place] 10/325 mg four times daily dosing, Tramadol 50 mg four times daily dosing, Trazodone 100 mg 1/2 to 1 pill at bedtime for sleep hygiene, Cymbalta 60 mg twice daily dosing, and Lyrica 225 mg twice daily dosing. She feels that the Lyrica is making her very sleepy at this time and would like to go down on the medication slightly per her report. Her percentage of pain relief is 75% at this time. Her pain level today is a 5/10 on the numerical pain scale rating. Her pain is worse with walking and weight bearing. Nursing intake was reviewed and noted on today's visit. VITAL SIGNS: Vital signs are reviewed today. B/P: 147/83; Heart rate: 86; Respirations: 16; Oxygen saturation is 95% on room air; Height 5???6?? , weight 290 lbs HISTORY: Allergies: Codeine, Morphine Sulfate, Amoxicillin and Percocet. Social History: Marital status: The patient is currently . Current work status: She does not list occupation at this time. Illicit drug use: Denies. Current tobacco use: Denies. Alcohol use: Denies. Caffeine use: Daily. Past 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: Osteoarthritis Chicken pox. Type 2 diabetes. Gallstones Acute myocardial infarction Hypertension. Hyperlipidemia. Obstructive sleep apnea Past Surgical History: Appendectomy Breast surgery Cholecystectomy. Heart surgery Complete hysterectomy. Bilateral arthroscopic knee surgery Oophorectomy and salpingectomy Bilateral shoulder surgery Spinal surgery, lumbar spine Past Family History: Cancer Heart disease REVIEW OF SYSTEMS: The patient's ten system review of systems was reviewed and on today's visit this individual has complaints of the following: General: Fatigue, weight gain. Respiratory: Negative. Neurological: Numbness and tingling Gastrointestinal: Negative. Musculoskeletal: Joint pain, stiffness, back pain, muscle aches and pains. Cardiovascular: Negative. Psychiatric: Anxiety, Changes in sleep. HEENT: Negative. Endocrine: Negative. Hematology: Negative. PHYSICAL EXAMINATION: Constitutional: The patient is conversant and well-nourished. Vital signs are reviewed today. Integumentary: Deferred. HEENT: Deferred. Neck: Deferred. Chest and Lung: Deferred. Cardiovascular: Deferred. Abdomen: Deferred. Peripheral Vascular: Deferred Neurologic: Deferred. Musculoskeletal: Deferred. Psychiatric: The patient is alert and oriented to self, time, and place today. The patient has a normal mood and affect on today's visit and there is mild depression on the depression questionnaire that was completed today. DIAGNOSTIC STUDIES: Not present MEDICAL DECISION MAKING: Stable. ASSESSMENT: 1. Chronic pain syndrome. 2. Lumbar degenerative disc disease. 3. Lumbar radiculitis involving the bilateral lower extremities status post spinal cord stimulator implantation with good coverage. 4. History of Charcot-Bessie II syndrome. 5. Left foot pain secondary to infectious process with removal of fixation hardware. PROCEDURE/TEST ORDERED: Not present. CURRENT PLAN: I am going to decrease this individual's Lyrica to 200 mg on the same frequency of twice daily dosing and see if this helps with the patient's sedation that she has been experiencing. Her other medicines will remain unchanged at this time. DEVYN report was appropriate upon review today. The patient's urine tox screen done 10/11/2019 was appropriate. We will see the patient back in the Clinic in two months for a follow-up appointment. The patient has an understanding and agrees with the above plans. KAYLIN Navarro/maurice documented in this encounter Plan of Treatment Not on file documented as of this encounter Visit Diagnoses Not on filedocumented in this encounter
--- OUTSIDE RECORDS SUMMARY | 2025-04-25 00:07 | XMS_ITS | Encounter Summary ---
Author Organization [employer] Address [address] [place] [address] Care Team Providers Care Motor Grader Operator Name Role Phone Unavailable Primary Care Provider Unavailabl e Encounter Details Date Type Department Care Team (Late st Contact Info) Description 07/11/2021 Transcribed Document [facility] [address] [place] [address] Dennis Greco MD [address] [place] [address] Social History Tobacco Use Types Packs/Day Years Used Date Smoking Tobacco: Never Assessed Comments Unknown Sex and Gender Information Value Date Recorded Sex Assigned at Not on file Legal Sex Female 3:10 PM CDT Gender Identity Not on file Sexual Orientation Not on file documented as of this encounter Miscellaneous Notes * Cerner Conversion Note - Dennis Greco MD - 07/11/2021 1:24 PM EDT Patient: BEE COLON Age: 51 Years Sex: Female : 1970 *Operation Wound Debridement Lower Extremity, Application of ACell graft Indication for Surgery This is a 51-year-old diabetic female who has had nonhealing ulcerations of the right lower extremity and a very slow left foot amputation site healing. She is been offered debridement as well as ACell stem cell graft for improvement of wound healing. *Preoperative Diagnosis NON HEALING LOWER BILATERAL ISCHEMIA WOUNDS *Postoperative Diagnosis SEE POST OP MD NOTES *Surgeon(s) Primary Surgeon DENNIS GRECO MD-MARISOL (Surgeon/Proceduralist, First) *Procedure Narrative This patient was taken back to the operating room placed in supine position operating table. She was sedated by anesthesia. Both of her feet were widely prepped and draped in standard sterile fashion. A timeout was taken with identification of the patient and procedure. 15 blade scalpel was used to excise the callus underneath the right plantar aspect of the first metatarsal. Is extended down with exposure of the subcutaneous tissue. Debridement was again performed with a 15 blade scalpel with a 2.5 x 2.5 cm circular wound present. Thin cell ACell graft was applied. This was sutured into place with 4-0 Monocryl. The left midfoot amputation site had an opening of 7 x 2.5 cm wound. There was some exposure of ligaments or tendons in this location which were excised with a 15 blade scalpel. The remainder of the wound was debrided with a 15 blade scalpel. Thin layer of ACell graft was applied and sutured into place with 4-0 Monocryl. Patient application of Xeroform, 4 x 4's Kerlix and Cristian wrap bilaterally. Anesthesia MAC ROLDAN HODGES MD-ANS (Anesthesiologist of Record) *Findings 1. Right plantar aspect wound debridement including skin and subcutaneous tissue measuring 2.5 x 2.5 cm and application of ACell stem cell graft 2. Left foot amputation wound measuring 7 x 2.5 cm and debridement performed the skin, subcutaneous tissue and tendon and application of ACell stem cell graft to the entirety of the wound *Specimen(s) None Complications None Date of Service Date/Time of Service SN - Proc - Start Time: 07/11/21 11:07:00 (07/11/21 11:16:15) documented in this encounter Plan of Treatment Not on file documented as of this encounter Visit Diagnoses Not on filedocumented in this encounter
--- OUTSIDE RECORDS SUMMARY | 2025-04-25 00:07 | XMS_ITS | Encounter Summary ---
Author Organization [employer] Address [address] [place] [address] Care Team Providers Care Rf Design Engineer Name Role Phone Unavailable Primary Care Provider Unavailabl e Encounter Details Date Type Department Care Team (Late st Contact Info) Description 03/21/2020 Transcribed Document [facility] Family Medicine [facility] [place] [address] ProviderEvangelista MD [address], [place] [phone] Social History Tobacco Use Types Packs/Day Years Used Date Smoking Tobacco: Never Assessed Comments Unknown Sex and Gender Information Value Date Recorded Sex Assigned at Not on file Legal Sex Female 3:10 PM CDT Gender Identity Not on file Sexual Orientation Not on file documented as of this encounter Miscellaneous Notes * Cerner Conversion Note - Evangelista Carbone MD - 03/21/2020 11:36 AM CDT Patient: BEE COLON Age: 49 Years Sex: Female : 1970 FOLLOW-UP DATE OF SERVICE: 03/06/2020 CHIEF COMPLAINT: Low back pain, bilateral leg pain, bilateral foot pain. HISTORY OF PRESENT ILLNESS: The patient is a 49 y/o female who returns to the clinic for follow-up on her low back pain which goes to her legs with numbness and tingling. She has a history of diabetic Type 2 neuropathy. Her spinal cord stimulator is working well. She rates the pain as 5/10 on the pain scale. Quality is aching, burning, numbness and tingling. The pain is constant. She has had the pain for 10 years. She has increased pain with walking. She gets 75% relief with her current medication. Fall risk info sheet has been provided. SOCIAL HISTORY: Allergies: Codeine, Morphine, Percocet Marital status: The patient is Current work status: Not answered. Illicit drug use: Denies. Alcohol use: Denies. Current tobacco use: Denies. Caffeine use: Not answered. Past 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: Arthritis Diabetes Heart attack High blood pressure Obstructive sleep apnea Migraines Past Surgical History: Appendix Breast Gallbladder Heart Hysterectomy Knee Ovaries Shoulder Spinal surgery of back Past Family History: Melanoma cancer Colon cancer REVIEW OF SYSTEMS: Complete ten system review was performed and noted to be positive for the following: General: Fatigue, weight gain. Respiratory: Negative. Neurological: Numbness and tingling Gastrointestinal: Negative. Musculoskeletal: Joint pain, stiffness, back pain, muscle aches and pains. Cardiovascular: Chest pain, palpitations Psychiatric: Anxiety HEENT: Negative. Endocrine: Negative. Hematology: Negative. Skin: Negative. Genitourinary: Negative. VITAL SIGNS: Vital signs are reviewed. BP 169/93, heart rate 86, respiratory rate 16, O2 SATs 93%, height 5???6?? , weight 290 lbs PHYSICAL EXAMINATION: Constitutional: The patient is freely conversant, no acute distress. Integumentary: Deferred. HEENT: Deferred. Neck: Deferred. Chest and Lung: Deferred. Cardiovascular: Deferred. Abdomen: Deferred. Peripheral Vascular: Deferred Neurologic: Deferred. Psychiatric: Alert and oriented x 3 with normal mood and affect. She scored a 5 on the depression questionnaire. She is treated. Musculoskeletal: Deferred. Established patient exam is deferred. DIAGNOSTIC STUDIES: Not present MEDICAL DECISION MAKING: The patient's DEVYN has been reviewed and is appropriate. Patient's medications are reviewed and are listed in the patient's file. ASSESSMENT: Stable. 1. Chronic pain syndrome. 2. Lumbar degenerative disc disease. 3. Lumbar radiculitis bilateral lower extremities status post spinal cord stimulator implantation with good coverage. 4. History of Charcot-Bessie tooth syndrome. 5. Left foot pain secondary to infectious process with removal of fixation hardware. PROCEDURE/TEST ORDERED: Not present. CURRENT PLAN: I am going to continue Ms. Colon on her current medications of Lyrica 200 mg q 12 h, Cymbalta 60 mg b.i.d., Trazodone 100 mg 1/2 to 1 p.o. q h.s., Tramadol 50 mg q.i.d., [place] 10 mg q 6 h. She denies any side effects. She is in agreement with the above plan. We will see her back in follow-up in two months. Anahy Fraser M.D. BO/maurice documented in this encounter Plan of Treatment Not on file documented as of this encounter Visit Diagnoses Not on filedocumented in this encounter
--- OUTSIDE RECORDS SUMMARY | 2025-04-25 00:07 | XMS_ITS | Encounter Summary ---
Author Organization [employer] Address [address] [place] [address] Care Team Providers Care Airplane Flight Attendant Name Role Phone Unavailable Primary Care Provider Unavailabl e Encounter Details Date Type Department Care Team (Late st Contact Info) Description 05/15/2022 Transcribed Document [facility] [place] [address] [place] [address] ProviderEvangelista MD [address] [place] [address] Social History Tobacco Use Types Packs/Day Years Used Date Smoking Tobacco: Never Assessed Comments Unknown Sex and Gender Information Value Date Recorded Sex Assigned at Not on file Legal Sex Female 3:10 PM CDT Gender Identity Not on file Sexual Orientation Not on file documented as of this encounter Miscellaneous Notes * Cerner Conversion Note - Evangelista ProviderMD - 05/15/2022 8:00 AM CDT [facility] Main OR PostOp Summary Primary Physician: ANGELA GREEN DPM-POD Finalized Date/Time: 05/15/22 09:37:38 Pt. Name: BEE COLON/Sex: 1970 Female Med Rec #: [id number] Physician: ANGELA GREEN DPM-POD Financial #: [id number] Pt. Type: O Room/Bed: /12 Admit/Disch: 05/15/22 06:55:00 - Institution: [facility] Main OR PostOp Case Times Entry 1 In PACU II 05/15/22 08:29:00 Ready for PACU II 05/15/22 09:35:00 Discharge Discharge from PACU 05/15/22 09:35:00 II Last Modified By: DEMETRICE PEREZ, RN 05/15/22 09:37:34 [facility] Main OR PostOp Case Times Audit 05/15/22 09:37:34 Hospital Supervisor: ZAYDA Modifier: ZAYDA <+> 1 Ready for PACU II Discharge <+> 1 Discharge from PACU II Finalized By: DEMETRICE PEREZ, RN Document Signatures Signed By: DEMETRICE PEREZ, RN 05/15/22 09:37 Electronically signed by Atul [facility] Conversion Bankruptcy Paralegal Cerner at 03/05/2023 6:53 PM CDT documented in this encounter Plan of Treatment Not on file documented as of this encounter Visit Diagnoses Not on filedocumented in this encounter
--- OUTSIDE RECORDS SUMMARY | 2025-04-25 00:07 | XMS_ITS | Encounter Summary ---
Author Organization [employer] Address [address] [place] [address] Care Team Providers Care Veneer Clipper Helper Name Role Phone Unavailable Primary Care Provider Unavailabl e Encounter Details Date Type Department Care Team (Late st Contact Info) Description 05/12/2022 Transcribed Document [facility] [place] [facility] [place] [address] ProviderEvangelista MD [address], [place] [id number] Social History Tobacco Use Types Packs/Day Years Used Date Smoking Tobacco: Never Assessed Comments Unknown Sex and Gender Information Value Date Recorded Sex Assigned at Not on file Legal Sex Female 3:10 PM CDT Gender Identity Not on file Sexual Orientation Not on file documented as of this encounter Miscellaneous Notes * Cerner Conversion Note - Evangelista ProviderMD - 05/12/2022 8:35 AM CDT Spiritual Care Assessment Entered On: 05/12/2022 15:59 EDT Performed On: 05/12/2022 8:17 EDT by Aman Lujan Chaplain General Information Referred by : initiated Ministry Provided to : Patient, Family/Significant other Rastafarian Preference : Adventist ([employer]) Aman Lujan Chaplain - 05/12/2022 15:58 EDT Spiritual Assessment Spiritual Assessment Comment/Summary Points : Supportive pre-surgery visit with patient, prayer provided. Spirital Assessment Comment/Summary Report : SPIRITUAL ASSESSMENT COMMENT/SUMMARY No qualifying data available. Aman Lujan Chaplain - 05/12/2022 15:58 EDT Interventions Emotional Support : Empathic/Engaged listening, Family/Significant other supported Spiritual and Rastafarian : Prayer shared, Spiritual/Rastafarian support provided Aman Lujan Chaplain - 05/12/2022 15:58 EDT Electronically signed by Atul, [facility] Conversion Train Operator Cerner at 03/05/2023 7:01 PM CDT documented in this encounter Plan of Treatment Not on file documented as of this encounter Visit Diagnoses Not on filedocumented in this encounter
--- OUTSIDE RECORDS SUMMARY | 2025-04-25 00:07 | XMS_ITS | Encounter Summary ---
Author Organization [employer] Address [address] [place] [address] Care Team Providers Care Flight Crew Ordnanceman Name Role Phone Unavailable Primary Care Provider Unavailabl e Encounter Details Date Type Department Care Team (Late st Contact Info) Description 05/15/2022 Transcribed Document [facility] [place] [address] [place] [address] ProviderEvangelista MD [address] [place] [address] Social History Tobacco Use Types [...] Evangelista ProviderMD - 05/15/2022 8:00 AM CDT [facility] Main OR Preop Summary Primary Physician: ANGELA GREEN DPM-POD Finalized Date/Time: 05/15/22 13:36:27 Pt. Name: BEE COLON/Sex: 1970 Female Med Rec #: [id number] Physician: ANGELA GREEN DPM-POD Financial #: [id number] Pt. Type: O Room/Bed: Admit/Disch: 05/15/22 06:55:00 - Institution: [facility] PreOp Case Times Entry 1 In Preop 05/15/22 05:45:00 Ready for Holding n/a Room Patient Ready for 05/15/22 07:15:00 Surgery Patient Out of Preop 05/15/22 07:38:00 Patient Out of n/a Holding Room Last Modified By: Juana Mclaughlin RN 05/15/22 11:19:58 [facility] PreOp Case Times Audit 05/15/22 13:36:25 Dairy Store Manager: [id number] Modifier: [id number] <+> 1 In Preop 05/15/22 11:19:58 Dairy Store Manager: [id number] Modifier: [id number] <+> 1 Patient Out of Preop Finalized By: Juana Mclaughlin, RN Document Signatures Signed By: Juana Mclaughlin RN 05/15/22 13:36 Electronically signed by Atul [facility] Conversion Stab Setter And Driller Cerner at 03/05/2023 7:02 PM CDT documented in this encounter Plan of Treatment Not on file documented as of this encounter Visit Diagnoses Not on filedocumented in this encounter
--- OUTSIDE RECORDS SUMMARY | 2025-04-25 00:07 | XMS_ITS | Clinical Summary ---
Author Organization [facility] Address [address] [place] [address] Phone Care Team Providers Care Director Pharmaceutical Name Role Phone Kaity Emerson Unavailable Unavailable Conditions or Problems Problem Name Problem Code Onset Date Status Entry Date Provider Comment Standard Description Annotate Candidiasis , vaginal 32322823 (SNOMED CT) 03/18 Active 03/19 Charlene W Candidiasis of vagina Thrush, oral 29291630 (SNOMED CT) 03/11 Inactive 03/11 Charlene W Candidiasis of mouth Problem excluded fro m report: Other obesity due to excess calories 013159832 (SNOMED CT) 03/15 Active 03/15 Cindi Traore Simple obesity Thrush, oral 66976739 (SNOMED CT) 03/11 Active 03/11 Jeet Rene MD Candidiasis of mouth Thrush, oral 83142782 (SNOMED CT) 03/11 Removed 03/11 Elizabeth Sims Candidiasis of mouth Hx of left TMA 02373692649 863303 (SNOMED CT) 03/04 Active 03/01 Charlene W History of amputation of left lesser toe DM non-pressur e chronic ulcer of left foot, plantar surface, with bone involvement without evidence of necrosis (E11.621) 687006496 (SNOMED CT) 03/01 Inactive 03/01 Luna Hughes Chronic ulcer of foot Chronic osteomyelit is, left foot M86.672 (ICD-10-CM) 03/01 Active 03/01 Luna Hughes Other chronic osteomyelitis, left ankle and foot Coronary artery disease (CAD) 49734586 (SNOMED CT) 03/01 Active 03/01 Luna Hughes Coronary arteriosclerosi s Benign Essential Hypertensio n 6186253 (SNOMED CT) 03/01 Active 03/01 Luna Hughes Benign essential hypertension Cellulitis, foot, left 858930884 (SNOMED CT) 03/01 Active 03/01 Luna Hughes Cellulitis of foot DM Type II E11.9 (ICD-10-CM) 03/01 Active 03/01 Luna Hughes Type 2 diabetes mellitus without complications BMI 45.0-49.9 Z68.42 (ICD-10-CM) 12/14 Resolved 12/14 Luna Hughes Body mass index [BMI] 45.0-49.9, adult MORBID OBESITY 156991398 (SNOMED CT) 12/14 Resolved 12/14 Luna Hughes Morbid obesity TOBACCO USER 848616368 (SNOMED CT) 12/03 Resolved 12/03 Luna Hughes Tobacco user C. DIFF COLITIS A04.7 (ICD-10-CM) 12/03 Resolved 12/03 Luna Hughes Enterocolitis due to Clostridium difficile DM II, UNCONTROLLE D E11.65 (ICD-10-CM) 12/03 Resolved 12/03 Luna Hughes Type 2 diabetes mellitus with hyperglycemia FEVER 564662222 (SNOMED CT) 12/03 Resolved 12/03 Luna Saul Fever VAGINAL CANDIDIASIS 18812518 (SNOMED CT) 12/03 Resolved 12/03 Luna Saul Candidiasis of vagina DIVERTICULI TIS OF SIGMOID COLON 391774767 (SNOMED CT) 12/03 Resolved 12/03 Luna Saul Diverticulitis of sigmoid colon BMI 45.0-49.9 Z68.42 (ICD-10-CM) 12/14 Removed 12/14 Charlene W Body mass index [BMI] 45.0-49.9, adult MORBID OBESITY 021418945 (SNOMED CT) 12/14 Removed 12/14 Charlene W Morbid obesity DM II, UNCONTROLLE D E11.65 (ICD-10-CM) 12/03 Removed 12/03 Charlene W Type 2 diabetes mellitus with hyperglycemia DIARRHEA OF PRESUMED INFECTIOUS ORIGIN 03701326 (SNOMED CT) 12/03 Correction 12/03 Charlene W Diarrhea of presumed infectious origin ABDOMINAL PAIN, LEFT LOWER QUADRANT 016578699 (SNOMED CT) 12/03 Correction 12/03 Charlene W Left lower quadrant pain WEAKNESS 75356062 (SNOMED CT) 12/03 Correction 12/03 Charlene W Asthenia WEIGHT LOSS 650863829 (SNOMED CT) 12/03 Correction 12/03 Charlene W Abnormal weight loss DIARRHEA 29521577 (SNOMED CT) 12/03 Correction 12/03 Charlene W Diarrhea DM TYPE II E11.9 (ICD-10-CM) 12/03 Correction 12/03 Luna Hughes Type 2 diabetes mellitus without complications TOBACCO USER 096630676 (SNOMED CT) 12/03 Removed 12/03 Luna Saul Tobacco user WEIGHT LOSS 277446377 (SNOMED CT) 12/03 Removed 12/03 Luna Saul Abnormal weight loss WEAKNESS 57937463 (SNOMED CT) 12/03 Removed 12/03 Luna Saul Asthenia FEVER 758376907 (SNOMED CT) 12/03 Removed 12/03 Luna Saul Fever C. DIFF COLITIS A04.7 (ICD-10-CM) 12/03 Removed 12/03 Luna Saul Enterocolitis due to Clostridium difficile DIARRHEA OF PRESUMED INFECTIOUS ORIGIN 78188492 (SNOMED CT) 12/03 Removed 12/03 Luna Saul Diarrhea of presumed infectious origin DIARRHEA 11161615 (SNOMED CT) 12/03 Removed 12/03 Luna Saul Diarrhea DIVERTICULI TIS OF SIGMOID COLON 198437155 (SNOMED CT) 12/03 Removed 12/03 Luna Saul Diverticulitis of sigmoid colon ABDOMINAL PAIN, LEFT LOWER QUADRANT 842660145 (SNOMED CT) 12/03 Removed 12/03 Luna Saul Left lower quadrant pain VAGINAL CANDIDIASIS 24176497 (SNOMED CT) 12/03 Removed 12/03 Luna Hughes Candidiasis of vagina Medications Medication Instructions Start Date Stop Date Generic Name NDC Provider DOXYCYCLINE MONOHYDRATE 100 MG CAPS Take one capsule by mouth twice daily DOXYCYCLINE MONOHYDRATE 70647629731 Jeet Rene MD TEFLARO SOLR 600mg IV Q 12hrs x 4wks Bioscrip/Dose, line care, labs [facility] CEFTAROLINE FOSAMIL SOLR [phone] Kaity Emerson DOXYCYCLINE MONOHYDRATE 100 MG CAPS Take one capsule by mouth twice daily DOXYCYCLINE MONOHYDRATE 90518217368 Jeet Rene MD FLUCONAZOLE 100 MG TABS Take two tablets by mouth once daily FLUCONAZOLE 22288038166 Jeet Rene MD DIFLUCAN 100 MG TABS Take two tablets by mouth once daily FLUCONAZOLE 89395790876 Jeet Rene MD FLAGYL 500 MG ORAL TABLET Take one tablet by mouth three times daily METRONIDAZOLE 52481562885 Jeet Rene MD ONDANSETRON 4 MG TBDP Take one tablet by mouth every 12 hours ONDANSETRON 73678383873 Jeet Rene MD TEFLARO SOLR 600mg IV Q 12hrs x 4wks Bioscrip/Dose, line care, labs [facility] CEFTAROLINE FOSAMIL SOLR 24105744592 Kaity Ki DAPTOMYCIN SOLR 750mg IV daily x 6wks HH Bioscrip/Dose, line care labs LID DAPTOMYCIN SOLR 93839891466 Kaity Ki CEFEPIME HCL SOLN 2gm IV q 12hrs x 6wks HH Bioscrp, Dose, line care, labs LID CEFEPIME HCL SOLN 93111629416 Kaity Emerson FLUCONAZOLE 200 MG TABS Take one tablet by mouth daily FLUCONAZOLE 82794788950 Jeet Rene MD CEFEPIME HCL SOLN 2gm IV q 12hrs x 6wks Bioscrp, Dose, line care, labs [facility] CEFEPIME HCL SOLN 21806226043 Kaity Emerson DAPTOMYCIN SOLR 750mg IV daily x 6wks Bioscrip/Dose, line care labs [facility] DAPTOMYCIN SOLR 71475231869 Kaity Emerson FLAGYL 500 MG ORAL TABLET Take one tablet by mouth three times daily METRONIDAZOLE 91295676306 Jeet Rene MD TETRACYCLINE HCL 500 MG CAPS TETRACYCLINE HCL 91738183340 Vivek D HYDROMORPHONE HCL 2 MG TABS TAKE ONE TABLET BY MOUTH EVERY 4 HOURS NEEDED FOR moderate TO SEVERE pain MAY CAUSE DROWSINESS HYDROMORPHONE HCL 20815528726 Vivek D ONETOUCH ULTRA STRP USE 1 STRIP TO CHECK GLUCOSE THREE TIMES DAILY GLUCOSE BLOOD 17093845273 Vivek Thomson LACTINEX ORAL TABLET CHEWABLE one by mouth three times a day LACTOBACILLUS 42969262096 Jeet Rene MD FLAGYL 500 MG ORAL TABLET one by mouth three times a day x 2 weeks METRONIDAZOLE 20869597686 Jeet Rene MD LEVAQUIN 750 MG ORAL TABLET one by mouth daily x 2 weeks LEVOFLOXACIN 64526003428 Jeet Rene MD INVANZ (IJ) SOLUTION RECONSTITUTED 1 gm IV daily OPAT ERTAPENEM SODIUM SOLR 47467068978 Jeet Rene MD LANTUS 100 UNIT/ML SOLN INSULIN GLARGINE 32727932443 Aury Z DIFLUCAN TABLET FLUCONAZOLE TABS 14981660014 Aury Z INVANZ (IJ) SOLUTION RECONSTITUTED 1 gm IV daily OPAT ERTAPENEM SODIUM SOLR 09727351903 Peggy Sharma MD DIFLUCAN 200 MG TABS take one daily for yeast infection FLUCONAZOLE 89192445647 Peggy Sharma MD LORTAB 10-500 MG ORAL TABLET HYDROCODONE-ACET AMINOPHEN 94407729331 Peggy Sharma MD NORCO TABS HYDROCODONE-ACET AMINOPHEN TABS 35574908352 Peggy Sharma MD LYRICA CAPS PREGABALIN CAPS 73834453046 Jahaira Merlos CYMBALTA CPEP DULOXETINE HCL CPEP 23047147471 Jahaiar G LASIX TABS FUROSEMIDE TABS 32225544878 Jahaira G NORCO TABS HYDROCODONE-ACET AMINOPHEN TABS 01722951540 Jahaira Merlos ATENOLOL TABS ATENOLOL TABS 98384760865 Jahaira Merlos GLYBURIDE TABS GLYBURIDE TABS 77937422518 Jahaira Merlos INVANZ (IJ) SOLUTION RECONSTITUTED ERTAPENEM SODIUM SOLR 38238383730 Jahaira Merlos DIFLUCAN TABLET FLUCONAZOLE TABS 43128473832 Jahaira Merlos Medications Administered No information available. [...] Documenta tion of current medications (procedure) DIET AUTO WASH BUFFER yes Dietary management education, guidance, and counseling [...] CPT-wclc Weekly Central Line Care 202 11/21/06 CPT-20514 CMP [id number] CBC with Differential 2020 CPT-10961 C- reactive protein CPT-29502 Sedimentation Rate (ESR) 202 11/21/06 CPT-ca Continue IV antibiotics 2020 CPT-Cooral Continue oral antibiotics 20 05/04/24 CPT-cwl Weekly Labs (Continue) 04/08 CPT-wclc Weekly Central Line Care 202 11/20/23 CPT-05862 CMP CPT-57094 CBC w/o Differential [id number], [id number] CPK CPT-42101 Sedimentation Rate (ESR) 202 11/20/23 CPT-55059 C- reactive protein CPT-37940 CMP CPT-49289 C- reactive protein CPT-54574 Sedimentation Rate (ESR) 202 11/20/09 CPT-ca Continue IV antibiotics 2020 CPT-wpc Weekly PICC Line Care 03/18 CPT-cwl Weekly Labs (Continue) 03/18 CPT-37879 CMP CPT-38460 CBC w/o Differential [id number], [id number] CPK CPT-07266 Sedimentation Rate (ESR) 11/20/02 CPT-ca Continue IV antibiotics 2020 CPT-wpc Weekly PICC Line Care 03/11 CPT-cwl Weekly Labs (Continue) 03/11 CPT-75409 CMP CPT-47298 CBC w/o Differential [id number], [id number] CPK CPT-83347 Sedimentation Rate (ESR) 202 11/19/25 CPT-kayli New IV antibiotic CPT-cwl Weekly Labs (Continue) 03/04 CPT-wclc Weekly Central Line Care 202 11/19/18 CPT-09169 CMP CPT-33689 CBC w/o Differential 19 CPT-73626 C- reactive protein CPT-76674 Sedimentation Rate (ESR) 202 11/19/18 CPT-sl STAT Labs CPT-DC Discontinue IV antibiotics 2 CPT-13888 BMP CPT-92807 CBC w/o Differential CPT-kayli New IV antibiotic CPT-J1335 Ertapenem CPT-06076 CMP CPT-42464 CBC with Differential 12/03 CPT-cdpcr C-Diff PCR [...] Weight Measured 270 [lb_av] weight E& M Weight Measured 270 [lb_av] weight E& M Height 66 [in_us] height E&M Immunizations Vaccine Administration Date Standard Description CVX Co de Dose Unspecified Formulation Unspecified Formulation 88 Unknown Lona COVID-19 Vaccine Lona COVID-19 Vacci ne 212 0.5 mL Advance Directives Directive Description Start Date NO ADVANCED DIRECTIVES ESTABLISHED 03/11
--- OUTSIDE RECORDS SUMMARY | 2025-04-25 00:07 | XMS_ITS | Encounter Summary ---
Author Organization [employer] Address [address] [place] [address] Care Team Providers Care Supervisor Telephone Answering Service Name Role Phone Unavailable Primary Care Provider Unavailabl e Encounter Details Date Type Department Care Team (Late st Contact Info) Description 07/10/2021 Transcribed Document [facility] [place] [address] [place] [address] ProviderEvangelista MD [address] [place] [address] Social History Tobacco Use Types Packs/Day Years Used Date Smoking Tobacco: Never Assessed Comments Unknown Sex and Gender Information Value Date Recorded Sex Assigned at Not on file Legal Sex Female 3:10 PM CDT Gender Identity Not on file Sexual Orientation Not on file documented as of this encounter Miscellaneous Notes * Cerner Conversion Note - Evangelista ProviderMD - 07/10/2021 4:16 PM CDT PAT Adult Entered On: 07/10/2021 16:20 EDT Performed On: 07/10/2021 16:16 EDT by Dalton Lang Rn Height and Weight, Clinical Dosing Height Source : Measured Height Entry Format : [place] Height, Feet : 5 ft(Converted to: 152 cm, 60 Inch) Height, Inches : 6.5 Inch(Converted to: 0 ft 7 Inch, 16.51 cm) Clinical Height : 168.91 cm Weight Source : Standing scale Weight Entry Format : [place] Clinical Dosing Weight : 127.73 kg Weight, Pounds : 281 lb Body Surface Area (BSA) : 2.33 m2 Body Mass Index : 44.8 kg/m2 (>HHI) [place] Body Weight : 60 kg CHELSY SUÁREZ - 07/11/2021 8:28 EDT Health Histories Smoking Status : Former smoker, quit more than 30 days ago Smokeless Tobacco Status : Never Implant/Device Type, Processing Lead and Model : spinal cord stimulator Dalton Lang Rn - 07/10/2021 16:16 EDT Social History (As Of: 07/10/2021 16:20:09 EDT) Tobacco: Use in Last 12 Months: No. Used Tobacco, but Quit Yes. Last Used: 11/2012. (Last Updated: 12/15/2013 10:39:43 EST by ERIC OWENS, GRETA) Use in Last 12 Months: Cigarettes. Smoking Status Current every day smoker. Comments: 07/13/2014 10:57 - BEE ORTIZ RN: smokes 3-4 cigarettes a day (Last Updated: 07/13/2014 10:57:18 EDT by BEE ORTIZ RN) Former smoker, quit more than 30 days ago Smoking Status. Never Smokeless Tobacco Status. None Smokeless Tobacco Use History. Last Used: quit November 30, 2014 . Second Hand Smoke Exposure: No. (Last Updated: 07/10/2021 16:16:31 EDT by Dalton Lang Rn) Alcohol: Use in Last 12 Months: No. (Last Updated: 12/15/2013 10:39:29 EST by ERIC OWENS, GRETA) Alcohol Use History No. Use in Last 12 Months: No. (Last Updated: 07/10/2021 16:16:31 EDT by Dalton Lang Rn) Substance Abuse: Drug Use Hx: No. Use in Last 12 Months: No. (Last Updated: 07/10/2021 16:16:31 EDT by aDlton Lang Rn) Infectious Disease History Where are the test results? : Paper Copy on chart Has the patient ever been tested for COVID-19? : Yes, Patient stated results Negative CHELSY SUÁREZ - 07/11/2021 8:37 EDT Where was the COVID-19 Testing completed? : [facility] in [place], [place] Date of COVID-19 test known? : Yes Date of COVID-19 Test : 07/08/2021 EDT Does patient have symptoms of COVID-19? : No COVID19 Screening : No Experiencing Infectious Disease Symptoms : No symptoms Physical contact outside [place] in the last 30 days : No Infectious Disease History : Chicken pox/Shingles Tuberculosis Symptoms : None Dalton Lang Rn - 07/10/2021 16:16 EDT COVID19 PreProcedure Screening Is this an Emergent or Add on Procedure? : No Date PreProcedure COVID-19 test known? : Yes Date of PreProcedure COVID-19 : 07/08/2021 EDT Dalton Lang Rn - 07/10/2021 16:16 EDT Has patient been isolated since the test : Yes CHELSY SUÁREZ - 07/11/2021 8:37 EDT Exposed to COVID19 symptoms since test? : No Dalton Lang Rn - 07/10/2021 16:16 EDT Anesthesia/Transfusion History Family History of Anesthesia Reaction : Prior transfusion without reaction Blood Transfusion Acceptable to Patient : Yes Transfusion History : Prior anesthesia without reaction Family History of Anesthesia Reaction : None Dalton Lang Rn - 07/10/2021 16:16 EDT Functional Assessment Functional ADL Evaluation Index EBN Bathing : Independent (2) Dressing : Independent (2) Toileting : Independent (2) Transferring Bed or Chair : Independent (2) Continence : Independent (2) Feeding : Independent (2) Dalton Lang Rn - 07/10/2021 16:16 EDT ADL Index Score : 12 Dalton Lang Rn - 07/10/2021 16:16 EDT Advance Directive Patient has Advance Directive *Q : No, patient refuses Advance Directive information aDlton Lang Rn - 07/10/2021 16:16 EDT Spiritual/Cultural Needs Any Spiritual/Cultural Needs or Requests : Yes Spiritual/Cultural Needs Comment : 07/11 Pentecostalism Preference : Synagogue ([employer]) Spiritual/Cultural Needs Comment : 07/11 Dalton Lang Rn - 07/10/2021 16:16 EDT [place] Suicide Severity Rating Scale (C-SSRS) CSSRS Past Month Wish to be : No CSSRS Past Month Suicidal Thoughts : No CSSRS Lifetime Suicide Behavior : No Suicide Severity Rating Score : 0 Suicide Severity Rating : No Additional Care Required at this time Dalton Lang Rn - 07/10/2021 16:16 EDT Psychosocial History Do You Have a History of the Following? : Anxiety CHELSY SUÁREZ - 07/11/2021 8:37 EDT Currently in Unsafe Situation : No Dalton Lang Rn - 07/10/2021 16:16 EDT General Info Legal Guardian : Mother Legal Guardian : No Support Person/Patient Pigskin Trimmer : Yes Support Person/Pt Rep Name : Nelida Freire mother Support Person/Pt Rep Contact Information : [phone] Want Family/Rep/Phys Notified of Admit : No Emergency Contact #1 : ` Emergency Contact #1 Phone Number : ` Emergency Contact #1 Relationship : ` Emergency Contact #2 : ` Emergency Contact #2 Phone Number : ` Emergency Contact #2 Relationship : ` Information Obtained From : Patient Primary Language : Nigerian Preferred Communication Mode : Verbal Communication Barrier : None Crown Perforator Operator Needed : No Dalton Lang Rn - 07/10/2021 16:16 EDT Scott Scale Scott Sensory Perception : No impairment Scott Moisture : Rarely moist Scott Activity : Chairfast Scott Mobility : Very limited Scott Nutrition : Adequate Scott Friction and Shear : Problem Scott Score : 16 Dalton Lang Rn - 07/10/2021 16:16 EDT Sleep Apnea Risk Assmt BiPAP/CPAP Ordered for Home Use : Yes Hx of Obstructive Sleep Apnea Diagnosis : Yes BiPAP/CPAP Used at Home : No Reason BiPAP/CPAP Not Used at Home : I don't have one yet, but I'm working on it. Age over 50 Years Old : Yes Gender Male : No Dalton Lang Rn - 07/10/2021 16:16 EDT documented in this encounter Plan of Treatment Not on file documented as of this encounter Visit Diagnoses Not on filedocumented in this encounter
--- OUTSIDE RECORDS SUMMARY | 2025-04-25 00:07 | XMS_ITS | Encounter Summary ---
Author Organization [employer] Address [address] [place] [address] Care Team Providers Care Clinical Dental Technician Name Role Phone Unavailable Primary Care Provider Unavailabl e Encounter Details Date Type Department Care Team (Late st Contact Info) Description 10/14/2019 Transcribed Document [facility] [place] Family Medicine [facility] [place] [address] ProviderEvangelista MD [address] [place], [place] [id number] Social History Tobacco Use Types Packs/Day Years Used Date Smoking Tobacco: Never Assessed Comments Unknown Sex and Gender Information Value Date Recorded Sex Assigned at Not on file Legal Sex Female 3:10 PM CDT Gender Identity Not on file Sexual Orientation Not on file documented as of this encounter Miscellaneous Notes * Cerner Conversion Note - Evangelista Carbone MD - 10/14/2019 12:06 PM POLYSOMNOGRAPHY TECH Patient: BEE COLON Age: 49 Years Sex: Female : 1970 FOLLOWUP DATE OF SERVICE: 10/11/2019 CHIEF COMPLAINT: Low back pain, bilateral leg pain. HISTORY OF PRESENT ILLNESS: The patient is a 49-year-old female who returns to the clinic today with a greater than 10-year history significant for bilateral leg pain and foot pain. The patient states that the pain is worse at this time secondary to recently having surgery of the left foot with removal of her fixation hardware secondary to being diagnosed with recurrence of staphylococcal infection. She denies osteomyelitis in the fixation hardware foot at this time. Her pain is improved with the use of a heating pad and leg elevation. Her pain is worse with weight-bearing and walking and standing. She describes her pain level today as 6/10 on the numerical pain scale rating. She is reporting 75% pain relief at this time with [place] 10/325 mg four times daily dosing, Tramadol 50 mg four times daily dosing, Lyrica 225 mg twice daily dosing, Cymbalta 60 mg twice daily dosing and Trazodone 100 mg that she takes 1/2 to 1 whole pill at bedtime for sleep hygiene. Nursing intake is reviewed and on today's visit this individual has a BP 157/89, heart rate 88, respiratory rate 16, O2 SATs 96% on room air, height 5'6 , weight 290 lb. HISTORY: Allergies: Morphine Sulfate, Codeine, Percocet, Amoxicillin. SOCIAL HISTORY: Marital status: Single. Current work status: She is disabled. Current tobacco use: Denies. Illicit drug use: Denies. Alcohol use: Denies. Caffeine use: Uses daily. Past 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: Osteoarthritis. Type 2 diabetes. Acute myocardial infarction. Hypertension. Hyperlipidemia. Past Surgical History: Appendectomy. Breast surgery. Cholecystectomy. Cardiac stent placement x5. Complete hysterectomy. Bilateral knee surgery. Oophorectomy/Salpingectomy. Bilateral shoulder arthroplasty. Spinal surgery of the lumbar spine. Past Family History: Cancer. REVIEW OF SYSTEMS: The patient's ten system Review of Systems was reviewed and at today's visit this individual has complaints of the following: General: Fatigue. Respiratory: Negative. Neurological: Dizziness, headaches, numbness/tingling. Gastrointestinal: Negative. Musculoskeletal: Joint pain/stiffness, muscle weakness, muscle aches and pains. Cardiovascular: Negative. Psychiatric: Anxiety. HEENT: Negative. Endocrine: Negative. Hematology: Negative. Skin: Negative. Genitourinary: Negative. PHYSICAL EXAMINATION: Constitutional: Conversant and well-nourished. Vital signs reviewed today. Integumentary: Deferred. HEENT: Deferred. Neck: Deferred. Chest and Lung: Deferred. Cardiovascular: Deferred. Abdomen: Deferred. Peripheral Vascular: Deferred. Neurologic: Deferred. Psychiatric: The patient is alert and oriented to self, time and place today. The patient has a normal mood and affect at today's visit and there is mild depression on the depression questionnaire that was completed today. Musculoskeletal: The patient does present with an isolation boot involving the left foot at this time. ASSESSMENT: 1. Chronic pain syndrome. 2. Lumbar degenerative disc disease. 3. Lumbar radiculitis, status post spinal cord stimulator implantation with good coverage. 4. History of Cbxkcjq-Dogqz-Xsdsb involving the bilateral feet. 5. Left foot pain secondary to infectious process with recent removal of fixation hardware. 6. Morbid obesity. CURRENT PLAN: The patient is undergoing a urine tox screen today to confirm compliance with medication management from our facility. I am going to maintain this individual on her current medication regiment from our facility at this time. We will see her back in the clinic in two months for a followup appointment. The patient has an understanding and agrees with the above plans. KAYLIN Navarro/florian documented in this encounter Plan of Treatment Not on file documented as of this encounter Visit Diagnoses Not on filedocumented in this encounter
--- OUTSIDE RECORDS SUMMARY | 2025-04-25 00:07 | XMS_ITS | Encounter Summary ---
Author Organization [employer] Address [address] [place] [address] Care Team Providers Care Auto Service Dispatcher Name Role Phone Unavailable Primary Care Provider Unavailabl e Encounter Details Date Type Department Care Team (Late st Contact Info) Description 05/15/2022 Transcribed Document [facility] [place] [address] [place] [address] ProviderEvangelista MD [address] [place] [address] Social History Tobacco Use Types Packs/Day Years Used Date Smoking Tobacco: Never Assessed Comments Unknown Sex and Gender Information Value Date Recorded Sex Assigned at Not on file Legal Sex Female 3:10 PM CDT Gender Identity Not on file Sexual Orientation Not on file documented as of this encounter Miscellaneous Notes * Cerner Conversion Note - Evangelista Carbone MD - 05/15/2022 7:42 AM CDT Patient Education Materials Follows: Toe Amputation, Care After This sheet gives [...] these instructions at home: Medicines ??? Take nahl-jvf-qxyqqml and prescription medicines only as told by [...] keep your urine pale yellow. ? Take lxjo-bka-dhwyoux or prescription medicines. ? Eat foods that [...] Leave the ice on for 20 minutes, 2?3 times a day. ??? Move your other [...] and water are not available, use hand tentering machine feeder. ? Change your dressing as told by [...] Get up to take short walks every 1?2 hours. This is important to improve blood [...] provider. Document Revised: 02/22/2020 Document Reviewed: 10/25/2019 [employer] Patient Education ? 2020 [employer] Procedures Outpatient Surgery, Adult, Care After This sheet [...] children on your own. Medicines ??? Take lhts-xly-yxojget and prescription medicines only as told by [...] keep your urine pale yellow. ? Take sqxl-uku-vkctjvm or prescription medicines. ? Eat foods that [...] added (diluted fruit juice). ? Eat bland, doeg-og-nhjslo foods in small amounts as you are [...] and water are not available, use hand tentering machine feeder. ? Change your dressing as told by [...] drink clear fluids slowly and eat bland, otel-tr-ytuwed foods in small amounts. ??? Ask your health care provider what activities are safe for you. This information is not intended to replace advice given to you by your health care provider. Make sure you discuss any questions you have with your health care provider. Document Revised: 03/01/2021 Document Reviewed: 08/23/2020 [employer] Patient Education ? 2020 [employer] documented in this encounter Plan of Treatment Not on file documented as of this encounter Visit Diagnoses Not on filedocumented in this encounter
--- OUTSIDE RECORDS SUMMARY | 2025-04-25 00:07 | XMS_ITS | Encounter Summary ---
Author Organization [employer] Address [address] [place] [address] Care Team Providers Care Equipment Operat0R Name Role Phone Unavailable Primary Care Provider Unavailabl e Encounter Details Date Type Department Care Team (Late st Contact Info) Description 05/13/2022 Transcribed Document [facility] [place] [address] [place] [address] ProviderEvangelista MD [address] [place] [address] Social History Tobacco Use Types Packs/Day Years Used Date Smoking Tobacco: Never Assessed Comments Unknown Sex and Gender Information Value Date Recorded Sex Assigned at Not on file Legal Sex Female 3:10 PM CDT Gender Identity Not on file Sexual Orientation Not on file documented as of this encounter Miscellaneous Notes * Cerner Conversion Note - Evangelista ProviderMD - 05/13/2022 1:24 PM CDT Patient: BEE SHANE Age: 51 years Sex: Female : 1970 Associated Diagnoses: None Author: COMERBEE APRN Chief Complaint pleasant 51 yo female here with her daughter for amputation R partial 5th ray with Dr. Hamlin. pt has had infection in bone of R 5th ray. Review of Systems Constitutional: morbid obesity. Eye: glasses. Ear/Nose/Mouth/Throat: Negative. Respiratory: Negative. Cardiovascular: Negative. Gastrointestinal: Negative. Genitourinary: Negative. Hematology/Lymphatics: Negative. Endocrine: Negative. Immunologic: Negative. Musculoskeletal: unsteady gait. Integumentary: healing incision R foot and non healing wound R 5th ray. Neurologic: Negative. Psychiatric: Negative. All other systems are negative Health Status Allergies: Allergic Reactions (Selected) Severity Not Documented Acetaminophen-oxyCODONE- Rash, it just, it does not work for my pain and rash. Amoxicillin- Hives. Codeine- Stomach cramps. Morphine- Stomach cramps. Plavix- Flushed and tachycardia. , Allergies (5) Active Reaction acetaminophen-oxyCODONE rash amoxicillin Hives codeine Stomach cramps morphine Stomach cramps Plavix Flushed Current medications: (Selected) Documented Medications Documented Cymbalta: 60 mg, Oral, BID, 0 Refill(s) Farxiga: 10 mg, Oral, Daily, 0 Refill(s) HumaLOG KwikPen: See Instructions, SubCutaneous TIDac per sliding scale, 0 Refill(s) Lantus Solostar Pen: 80 Units, SubCutaneous, At Bedtime, 0 Refill(s) Lyrica: 200 mg, Oral, BID, 0 Refill(s) Metoprolol Tartrate: 100 mg, Oral, BID, 0 Refill(s) [place] 10 mg-325 mg oral tablet: 1 Tab, Oral, Q6H, PRN: for pain, 0 Refill(s) Victoza: 1.8 mg, SubCutaneous, Daily, 0 Refill(s) Xarelto: 2.5 mg, Oral, BID, 0 Refill(s) Zetia: 10 mg, Oral, At Bedtime, 0 Refill(s) isosorbide mononitrate 60 mg oral tablet, extended release: 1 Tab, Oral, At Bedtime, 0 Refill(s) ramipril: 5 mg, Oral, Daily, 0 Refill(s) spironolactone: 25 mg, Oral, Daily, 0 Refill(s) traZODone: 100 mg, Oral, At Bedtime, 0 Refill(s) , Home Medications (14) Active Cymbalta 60 mg, Oral, BID Farxiga 10 mg, Oral, Daily HumaLOG KwikPen See Instructions isosorbide mononitrate 60 mg oral tablet, extended release 60 mg = 1 Tab, Oral, At Bedtime Lantus Solostar Pen 80 Units, SubCutaneous, At Bedtime Lyrica 200 mg, Oral, BID Metoprolol Tartrate 100 mg, Oral, BID [place] 10 mg-325 mg oral tablet 1 Tab, PRN, Oral, Q6H ramipril 5 mg, Oral, Daily spironolactone 25 mg, Oral, Daily traZODone 100 mg, Oral, At Bedtime Victoza 1.8 mg, SubCutaneous, Daily Xarelto 2.5 mg, Oral, BID Zetia 10 mg, Oral, At Bedtime , No qualifying data available Problem list: All Problems 6-Stented coronary artery / SNOMED CT 8563628606 / Confirmed Spinal cord stimulator right hip :check w/ pt re on/off status / SNOMED CT 716430007 / Confirmed Peripheral vascular disease / SNOMED CT 8710299055 / Confirmed Hypertension / SNOMED CT 02943931 / Confirmed History of obstructive sleep apnea / IMO 55518178 / Confirmed Foot pain, right / SNOMED CT 950155447 / Confirmed Fibromyalgia / SNOMED CT 74171939 / Confirmed DM - wears Dexcom / SNOMED CT 637170641 / Confirmed Diabetic neuropathy / SNOMED CT 652259974 / Confirmed Coronary artery disease / SNOMED CT 9918943772 / Confirmed Chronic back pain / SNOMED CT 992747484 / Confirmed At risk for sleep apnea / IMO 78040390 / Confirmed Angina / SNOMED CT 188659044 / Confirmed -2020 Non-ST elevation MD (NSTEMI) x 2 / SNOMED CT 7355444815 / Confirmed Canceled: Myocardial infarction / SNOMED CT 35944154 Canceled: Cellulitis of foot, left / SNOMED CT 995040600 s/p left foot transmetatarsal amp Canceled: Unsteady gait-uses cane / SNOMED CT 72666963 , Active Problems (14) -2020 Non-ST elevation MD (NSTEMI) x 2 6-Stented coronary artery Angina At risk for sleep apnea Chronic back pain Coronary artery disease Diabetic neuropathy DM - wears Dexcom Fibromyalgia Foot pain, right History of obstructive sleep apnea Hypertension Peripheral vascular disease Spinal cord stimulator right hip :check w/ pt re on/off status Histories Past 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: No active or resolved past medical history items have been selected or recorded. Family History: No family history items have been selected or recorded. Procedure history: Hysterectomy (302810430). right foot pinning. lap with laser x3. rt knee scope x2. left knee scope. right hand CMC x4. left hand CMC x1. all toes amputated from left foot. left shoulder scope. right shoulder scope. Cholecystectomy (40718902). Appendectomy (669333554). spinal cord stimulator. Cardiac catheterization (40024080). Comments: 03/19/2022 12:20 EDT - Ale Gresham RN-PATIENT CARE BEDSIDE NON-EXEMPT cardiac stents x6 left foot skin grafting 2021. Physical Examination VS/Measurements Vital Signs/Vital Measures 05/12/2022 8:28 EDT Blood Pressure Location Arm, right upper Blood Pressure Source Non-Invasive BP Device Systolic Blood Pressure 139 mmHg Diastolic Blood Pressure 78 mmHg Temperature Source Temporal artery scanning Temperature Mode Fahrenheit Temperature, Fahrenheit 97.1 Deg F Clinical Temperature, C 36.2 Deg C Peripheral Pulse Rate 70 bpm Respiratory Rate 16 Breaths/Min Oxygen Saturation 97 % Oxygen Therapy Mode Room air , No qualifying data available , Measurements from flowsheet : Measurements 05/12/2022 8:28 EDT Height Source Measured Height Entry Format Lacrosse Height/Length, WOLOF (ft) 0 ft Height/Length WOLOF 66.5 Inch CLINICALHEIGHT 168.91 cm Many Body Weight 60 kg Weight Source Standing scale Weight Entry Format Lacrosse Weight Chilean lb 290 lb CLINICALWEIGHT 131.82 kg Body Surface Area (BSA) 2.36 m2 Body Mass Index 46.2 kg/m2 >HHI General: Alert and oriented, No acute distress, morbid obesity. Eye: Extraocular movements are intact, glasses. HENT: Normocephalic, Normal hearing. Respiratory: Lungs are clear to auscultation, Respirations are non-labored. Cardiovascular: Normal rate, Regular rhythm, No murmur, No gallop, No edema. Musculoskeletal: SCS R hip, unsteady gait, uses special boot LLE and post op shoe RLE and cane. Integumentary: Warm, Dry, healing incision R foot and non healing infected area R 5th ray POA. Neurologic: Alert, Oriented. Psychiatric: Cooperative, Appropriate mood & affect. Review / Management Results review: Labs (Last four charted values) WBC 10.2 (MAY 13) HB 13.6 (MAY 13) HCT 43.1 (MAY 13) Plt 268 (MAY 13) Na 139 (MAY 13) K 4.5 (MAY 13) Cl 105 (MAY 13) CO2 27 (MAY 13) BUN 21 (MAY 13) Cr H 1.20 (MAY 13) Glu R H 186 (MAY 13) Ca 10.1 (MAY 13) AST 15 (MAY 13) ALT 17 (MAY 13) ALK P 85 (MAY 13) T Bili 0.3 (MAY 13) PTN 7.5 (MAY 13) ALB L 3.2 (MAY 13) , Lab results 05/13/2022 10:47 EDT Sodium Level 139 mmol/L Potassium Level 4.5 mmol/L Chloride Level 105 mmol/L Carbon Dioxide Level 27 mmol/L Anion Gap 12 Glucose Level 186 mg/dL HI Blood Urea Nitrogen 21 mg/dL CREATININE 1.20 mg/dL HI eGFR 57 mL/min/1.73m2 LOW eGFR NonAfrican 47 mL/min/1.73m2 LOW Bun/Creatinine 17.5 Calcium Level 10.1 mg/dL Protein Total 7.5 Gram/dL Albumin Level 3.2 Gram/dL LOW Globulin 4.3 Gram/dL A/G Ratio 0.7 LOW Bilirubin Total 0.3 mg/dL Alk Phos 85 Units/Liter AST 15 Units/Liter ALT 17 Units/Liter WBC 10.2 K/uL RBC 5.05 Million/uL Hgb 13.6 g/dL Hct 43.1 % MCV 85.3 fL MCH 26.9 pg MCHC 31.6 Gram/dL LOW Platelet Count 268 K/uL MPV 11.1 fL RDW 15.5 % HI Slide Review No . Impression and Plan Diagnosis 1. infected, non healing ulcer R 5th ray 2. DM 3. ANA 4. CAD, MD 5. back pain 6. fibromyalgia 7. neuropathy 8. HTN 9. PVD. Condition: Stable. pt to proceed with surgery, DC home same day documented in this encounter Plan of Treatment Not on file documented as of this encounter Visit Diagnoses Not on filedocumented in this encounter
--- OUTSIDE RECORDS SUMMARY | 2025-04-25 00:07 | XMS_ITS | Encounter Summary ---
Author Organization [employer] Address [address] [place] [address] Care Team Providers Care Beauty Specialist Name Role Phone Unavailable Primary Care Provider Unavailabl e Encounter Details Date Type Department Care Team (Late st Contact Info) Description 07/31/2020 Transcribed Document [facility] [place] [address] [place] [address] ProviderEvangelista MD [address] [place] [place], [place] [id number] Social History Tobacco Use Types Packs/Day Years Used Date Smoking Tobacco: Never Assessed Comments Unknown Sex and Gender Information Value Date Recorded Sex Assigned at Not on file Legal Sex Female 3:10 PM CDT Gender Identity Not on file Sexual Orientation Not on file documented as of this encounter Miscellaneous Notes * Cerner Conversion Note - Evangelista Carbone MD - 07/31/2020 11:30 AM CDT Patient: BEE COLON Age: 50 Years Sex: Female : 1970 FOLLOW-UP DATE OF SERVICE: 07/16/2020 CHIEF COMPLAINT: Low back pain, bilateral leg pain. HISTORY OF PRESENT ILLNESS: The patient is a 50 y/o female who returns to the Clinic today with a 15 year history significant for low back pain and bilateral leg pain being equal in severity. The patient describes the pain as being improved with resting, leg elevation, medication use from our facility. The patient states that her pain is worse with walking and standing for long durations of time. The patient describes her pain level today is a 7/10 on the numerical pain scale rating. The patient is reporting 50% pain relief at this time with the use of [place] 10/325 mg four times daily dosing, Lyrica 200 mg twice daily dosing, Tramadol 50 mg four times daily dosing, with Cymbalta 60 mg twice daily dosing, Trazodone 100 mg one at bedtime that she utilizes for sleep hygiene. Nursing intake was reviewed and noted on today's visit. VITAL SIGNS: Vital signs are reviewed today. B/P: 150/92; Heart rate: 108; Respirations: 18; Oxygen saturation is 95% on room air; Height 5???6?? , weight 290 lbs HISTORY: Allergies: Codeine, Morphine Sulfate, Percocet and Amoxicillin. Social History: Marital status: The patient is Current work status: The patient does not list occupation at this time. Illicit drug use: Denies. Current tobacco use: Denies. Alcohol use: Denies. Caffeine use: Not reported. Past 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: Osteoarthritis Type 2 diabetes. Gallstones Acute myocardial infarction Hypertension Hyperlipidemia. Obstructive sleep apnea which she was not compliant with a C-PAP machine Past Surgical History: Appendectomy Breast surgery Cholecystectomy Cardiac stent placement x 6 Hemorrhoidectomy Complete hysterectomy Bilateral arthroscopic knee surgery Oophorectomy and salpingectomy Bilateral arthroscopic shoulder surgery Spinal surgery, lumbar spine Past Family History: Cancer REVIEW OF SYSTEMS: The patient's ten system review of systems was reviewed and on today's visit this individual has complaints of the following: General: Fatigue. Respiratory: Negative Neurological: Dizziness, numbness and tingling Gastrointestinal: Negative Musculoskeletal: Joint pain, stiffness, neck pain, back pain, muscle weakness, muscle aches and pains. Cardiovascular: Legs swelling, leg pain with walking. Psychiatric: Anxiety and depression. Changes in sleep HEENT: Negative Endocrine: Negative Hematology: Negative Skin: Negative. Genitourinary: Negative. PHYSICAL EXAMINATION: Constitutional: The patient is conversant and well-nourished. Vital signs are reviewed today. Integumentary: Deferred. HEENT: Deferred. Neck: Deferred. Chest and Lung: Deferred. Cardiovascular: Deferred. Abdomen: Deferred. Peripheral Vascular: Deferred Neurologic: Deferred. Musculoskeletal: Deferred. Psychiatric: The patient is alert and oriented to self, time, and place today. The patient has a normal mood and affect on today's visit and there is moderate depression on the depression questionnaire that was completed today. DIAGNOSTIC STUDIES: Not present MEDICAL DECISION MAKING: Stable. ASSESSMENT: 1. Chronic pain syndrome. 2. Lumbar degenerative disc disease. 3. Lumbar spondylosis. 4. Lumbar radiculitis involving the bilateral lower extremities being equal in severity. PROCEDURE/TEST ORDERED: Not present. CURRENT PLAN: I am going to continue this individual on her current medication regimen from our facility at this time. Her DEVYN report was appropriate upon review today. A urine tox screen done May 21, 2020 was appropriate. We will see the patient back in the Clinic in two months for a follow-up appointment. KAYLIN Navarro/maurice documented in this encounter Plan of Treatment Not on file documented as of this encounter Visit Diagnoses Not on filedocumented in this encounter
--- OUTSIDE RECORDS SUMMARY | 2025-04-25 00:07 | XMS_ITS | Encounter Summary ---
Author Organization [employer] Address [address] [place] [address] Care Team Providers Care Tape Sewing Machine Operator Name Role Phone Unavailable Primary Care Provider Alison e Encounter Details Date Type Department Care Team (Late st Contact Info) Description 05/15/2022 Transcribed Document [facility] [place] [facility] [place] [address] ProviderEvangelista MD [address] [place] [address] Social History Tobacco Use Types Packs/Day Years Used Date Smoking Tobacco: Never Assessed Comments Unknown Sex and Gender Information Value Date Recorded Sex Assigned at Not on file Legal Sex Female 3:10 PM CDT Gender Identity Not on file Sexual Orientation Not on file documented as of this encounter Miscellaneous Notes * Cerner Conversion Note - Evangelista Carbone MD - 05/15/2022 8:37 AM CDT Patient: BEE COLON Age: 51 Years Sex: Female : 1970 *Operation right partial 5th ray amputation, peripheral nerve block right foot Anesthesia Type JOSE DIANA MD-ANS (Anesthesiologist of Record) W LOCAL Indication for Surgery OM right foot, ulcer right foot to bone, pain right foot, DM *Preoperative Diagnosis Same *Postoperative Diagnosis Same *Surgeon(s) Primary Surgeon ANGELA GREEN DPM-POD (Surgeon/Proceduralist, First) *Estimated Blood Loss 50 cc *Findings viable bone and soft tissue s/p amputation right foot *Specimen(s) distal right 5th ray, deep culture swabs right foot Complications none Date of Service Date/Time of Service SN - Proc - Start Time: 05/15/22 08:00:00 (05/15/22 08:19:00) Electronically signed by [facility] Conversion Security Researcher Cerner at 03/05/2023 6:46 PM CDT documented in this encounter Plan of Treatment Not on file documented as of this encounter Visit Diagnoses Not on filedocumented in this encounter
--- OUTSIDE RECORDS SUMMARY | 2025-04-25 00:07 | XMS_ITS | Encounter Summary ---
Author Organization [employer] Address [address] [place] [id number] Care Team Providers Care Philosophy Instructor Name Role Phone Unavailable Primary Care Provider Unavailabl e Encounter Details Date Type Department Care Team (Late st Contact Info) Description 07/10/2021 Transcribed Document [facility] [place] Family Medicine [address] [place] [address] ProviderEvangelista MD [address], [place] [id number] Social History Tobacco Use Types Packs/Day Years Used Date Smoking Tobacco: Never Assessed Comments Unknown Sex and Gender Information Value Date Recorded Sex Assigned at Not on file Legal Sex Female 3:10 PM CDT Gender Identity Not on file Sexual Orientation Not on file documented as of this encounter Miscellaneous Notes * Cerner Conversion Note - Evangelista ProviderMD - 07/10/2021 4:20 PM CDT Spiritual Care Assessment Entered On: 07/11/2021 10:59 EDT Performed On: 07/11/2021 8:00 EDT by MEDINA BRADFORD General Information Initial Visit : Yes Referred by : Patient Referral Reason Comment : Pre-surgery visit Ministry Provided to : Patient, Family/Significant other Buddhist Preference : Islam ([employer]) MEDINA BRADFORD P - 07/11/2021 10:58 EDT Spiritual Assessment Spiritual Assessment Comment/Summary Points : Provided pre-surgery visit and prayer with patient and mother. Spirital Assessment Comment/Summary Report : SPIRITUAL ASSESSMENT COMMENT/SUMMARY No qualifying data available. MEDINA BRADFORD - 07/11/2021 10:58 EDT Interventions Emotional Support : Empathic/Engaged listening, Family/Significant other supported Spiritual and Buddhist : Prayer shared, Spiritual/Buddhist support provided MEDINA BRADFORD - 07/11/2021 10:58 EDT documented in this encounter Plan of Treatment Not on file documented as of this encounter Visit Diagnoses Not on filedocumented in this encounter
--- OUTSIDE RECORDS SUMMARY | 2025-04-25 00:07 | XMS_ITS | Encounter Summary ---
Author Organization [employer] Address [address] [place] [address] Care Team Providers Care Inside Barrel Lathe Operator Name Role Phone Unavailable Primary Care Provider Unavailabl e Encounter Details Date Type Department Care Team (Late st Contact Info) Description 07/11/2021 Transcribed Document [facility] [place] [place] [facility] [place] [address] ProviderEvangelista MD [address] [place] [address] Social History Tobacco Use Types [...] Evangelista ProviderMD - 07/11/2021 11:07 AM CDT [facility] Main OR IntraOp Summary Primary Physician: MANI THOMAS MD-SUR Finalized Date/Time: 07/14/21 16:36:09 Pt. Name: BEE COLON/Sex: 1970 Female Med Rec #: [id number] Physician: MANI THOMAS MD-SUR Financial #: [id number] Pt. Type: O Room/Bed: Admit/Disch: 07/11/21 08:06:00 - 07/11/21 12:25:00 Institution: [facility] IntraOp Case Attendance Entry 1 Entry 2 Entry 3 Case Attendee MANI THOMAS MD-SUR BOWEN, JON B, MD-Purvi Quick CRNA Role Performed Surgeon/Proceduralist, Anesthesiologist of FIELD SERVICE ENGINEER/Nurse Fitter And Turner First Record Time In 07/11/21 10:47:00 07/11/21 10:47:00 07/11/21 10:47:00 Time Out 07/11/21 11:25:00 07/11/21 11:25:00 07/11/21 11:25:00 Procedure Wound Debridement Lower Wound Debridement Lower Wound Debridement Lower Extremity Extremity Extremity Other Attendee PEDIATRICS HOSPITALIST Superficial Wound Closed By: Last Modified By: Zee Delgadillo RN Napier, Elizabeth A, Zee Gtz RN 07/11/21 11:30:29 07/11/21 11:30:29 07/11/21 11:30:29 Entry 4 Entry 5 Entry 6 Case Attendee ELAINE BRUCE ST Zhurko, Timofey, Zee Betancourt RN Tech Role Performed Scrub, First Scrub, First Ceramics Machine Operator, First Time In 07/11/21 10:47:00 07/11/21 10:47:00 07/11/21 10:47:00 Time Out 07/11/21 11:25:00 07/11/21 11:25:00 07/11/21 11:25:00 Procedure Wound Debridement Lower Wound Debridement Lower Wound Debridement Lower Extremity Extremity Extremity Other Attendee ORIENTEE Superficial Wound Closed By: Last Modified By: Zee Delgadillo RN Napier, Elizabeth A, Zee Gtz RN 07/11/21 11:30:29 07/11/21 11:30:29 07/11/21 11:30:29 Entry 7 Entry 8 Case Attendee SINA JOHNSON, RN Sherwin Gage, RN Role Performed Ceramics Machine Operator, Second Ceramics Machine Operator, Third Time In 07/11/21 10:47:00 07/11/21 10:47:00 Time Out 07/11/21 11:25:00 07/11/21 11:25:00 Procedure Wound Debridement Lower Wound Debridement Lower Extremity Extremity Other Attendee ORIENTATION Superficial Wound Closed By: Last Modified By: Zee Delgadillo RN Napier, Elizabeth A, RN 07/11/21 11:30:29 07/11/21 11:30:29 [facility] IntraOp Case Attendance Audit 07/11/21 11:30:29 Grain Merchandising Manager: LIONHAKEEM Modifier: EANAPIER 1 <+> Time Out 1 <*> Procedure Wound Debridement Lower Extremity 2 <+> Time Out 2 <*> Procedure Wound Debridement Lower Extremity 3 <+> Time Out 3 <*> Procedure Wound Debridement Lower Extremity 4 <+> Time Out 4 <*> Procedure Wound Debridement Lower Extremity 5 <+> Time Out 5 <*> Procedure Wound Debridement Lower Extremity 6 <+> Time In 6 <+> Time Out 6 <*> Procedure Wound Debridement Lower Extremity 7 <+> Time In 7 <+> Time Out 7 <*> Procedure Wound Debridement Lower Extremity 8 <+> Time In 8 <+> Time Out 8 <*> Procedure Wound Debridement Lower Extremity 07/11/21 11:08:19 Grain Merchandising Manager: JAIRO Modifier: EANAPIER <+> 6 Case Attendee <+> 6 Role Performed <+> 6 Procedure <+> 7 Case Attendee <+> 7 Role Performed <+> 7 Procedure <+> 8 Case Attendee <+> 8 Role Performed <+> 8 Procedure <+> 8 Other Attendee 07/11/21 10:51:13 Grain Merchandising Manager: JAIRO Modifier: EANAPIER 5 <+> Case Attendee 5 <*> Procedure Wound Debridement Lower Extremity 07/11/21 10:49:29 Grain Merchandising Manager: KURT Modifier: EANAPIER 1 <+> Time In 1 <*> Procedure Wound Debridement Lower Extremity 2 <+> Time In 2 <*> Procedure Wound Debridement Lower Extremity 3 <+> Time In 3 <*> Procedure Wound Debridement Lower Extremity 4 <+> Time In 4 <*> Procedure Wound Debridement Lower Extremity 5 <+> Time In 5 <*> Procedure Wound Debridement Lower Extremity [facility] IntraOp Case Times Entry 1 Patient In Room Time 07/11/21 10:47:00 Out Room Time 07/11/21 11:25:00 Anesthesia Start Time 07/11/21 10:47:00 Stop Time 07/11/21 11:25:00 Surgery / Procedure Times Start Time 07/11/21 11:07:00 Stop Time 07/11/21 11:18:00 Last Modified By: Zee Delgadillo RN 07/11/21 11:30:15 [facility] IntraOp Case Times Audit 07/11/21 11:30:15 Grain Merchandising Manager: EANAPIER Modifier: EANAPIER <+> 1 Out Room Time <+> 1 Stop Time 07/11/21 11:18:34 Grain Merchandising Manager: EANAPIER Modifier: EANAPIER <+> 1 Stop Time 07/11/21 11:06:32 Grain Merchandising Manager: EANAPIER Modifier: EANAPIER <+> 1 Start Time [facility] IntraOp Cautery Entry 1 ESU Identification Cautery Type Monopolar ESU ID Number [id number] ID Type Hospital Number Cautery Settings Cut Setting 35 Coag Setting 35 ESU Grounding Pad Ground Pad Type Adult Grounding Pad Site Right thigh Grounding Pad Site Warm, dry and intact Skin Condition Before Cautery Last Modified By: Zee Delgadillo RN 07/11/21 11:06:28 [facility] IntraOp Communication Entry 1 Communication To Other Comment POST OP Communication By SINA JOHNSON RN Date and Time 07/11/21 11:16:00 Last Modified By: Zee Delgadillo RN 07/11/21 11:16:29 [facility] IntraOp Counts Verification Entry 1 Procedure Wound Debridement Lower Extremity Count Info Count Type Sponge, Sharps, Miscellaneous Counts Verification Baseline/pre-procedure Sequence Count Results Not Applicable Counts Performed By Count Performed By ELAINE BRUCE ST (Scrub) Count Performed By SINA JOHNSON RN (RN) Last Modified By: Zee Delgadillo RN 07/11/21 11:09:24 [facility] IntraOp Counts Verification Audit 07/11/21 11:09:24 Grain Merchandising Manager: EANAPIER Modifier: EANAPIER 1 <*> Procedure Wound Debridement Lower Extremity 1 <+> Count Performed By (RN) [facility] IntraOp Counts Final Entry 1 Procedure Wound Debridement Lower Extremity Final Count Info Count Type Sponge, Sharps, Miscellaneous Counts Verification Skin Closure/end of Sequence procedure Count Results Correct, surgeon notified Counts Performed By Count Performed By ELAINE BRUCE ST (Scrub) Count Performed By SINA JOHNSON RN (RN) Last Modified By: Zee Delgadillo RN 07/11/21 11:15:16 [facility] IntraOp Counts Final Audit 07/11/21 11:15:16 Grain Merchandising Manager: EANAPIER Modifier: EANAPIER 1 <*> Procedure Wound Debridement Lower Extremity 1 <+> Count Results 1 <+> Count Performed By (Scrub) 1 <+> Count Performed By (RN) [facility] IntraOp Departure from OR Entry 1 Integumentary Assessment Transfer/Handoff Transfer to Ambulatory unit, Phase II Handoff Method Phone call, Online nursing summary Post-op Transport Stretcher/Gurney Via Patient Transport SINA JOHNSON RN Accompanied by Last Modified By: Zee Delgadillo RN 07/11/21 11:30:27 [facility] IntraOp Departure from OR Audit 07/11/21 11:30:27 Grain Merchandising Manager: RESULTJO Modifier: BINAPIER <+> 1 Patient Transport Accompanied by [facility] IntraOp Dressing and Packing Entry 1 Type Dressing Wound Dressing Item Cristian, Kerlix/Feng Supplemental Other Applications Applied By MANI THOMAS MD-MARISOL Last Modified By: Zee Delgadillo RN 07/11/21 11:16:14 General Comments: SHOE [facility] IntraOp Fire Risk Assessment Entry 1 Fire Info Surgical Site or 0- No Incision Above the Xyphoid Open O2 Source 1- Yes (Mask or Cannula) Available Ignition 1- Yes (ESU, Laser, Light Source) Fire Risk 2 Assessment Score Fire Score Fire Risk Yes Assessment Complete Fire Risk Zee Delgadillo RN Assessment Verified By Fire Risk 07/11/21 11:10:00 Assessment Verified Date/Time Fire Risk Standard Fire Yes Safety Precautions Followed Last Modified By: Zee Delgadillo RN 07/11/21 11:09:14 [facility] IntraOp Fire Risk Assessment Audit 07/11/21 11:09:14 Grain Merchandising Manager: RESULTJO Modifier: EANAPIER <+> 1 Fire Risk Assessment Verified By <+> 1 Fire Risk Assessment Verified Date/Time [facility] IntraOp General Case Internal Combustion Engine Assembler 1 Case Information OR OR 06 [facility] Case Level 1 Room Verified Yes Wound Class II - Clean-Contaminated Specialty Vascular Anesthesia Type MAC ASA Class 3 Diagnosis Preop Diagnosis NON HEALING LOWER BILATERAL ISCHEMIA WOUNDS Postop Diagnosis SEE POST OP MD NOTES Last Modified By: Zee Delgadillo RN 07/11/21 11:14:57 [facility] IntraOp General Case Data Audit 07/11/21 11:14:57 Grain Merchandising Manager: EANAPIER Modifier: EANAPIER 1 <*> Specialty 1 <+> Preop Diagnosis 07/11/21 10:49:10 Grain Merchandising Manager: KURT Modifier: EANAPIER <+> 1 ASA Class [facility] IntraOp Implant Log Entry 1 Type Implant (Synthetic) Implant Log Implant CYTAL WOUND MTRX 3 LYER Identification [id number] Description Implant Quantity 1 Implant [id number] Identification Serial Number Implant [id number] Identification Lot Number Implant [employer] Identification Bean Snipper Name: Implant [id number] Identification Catalog Number Implant Size 7 X 10 CM Implant Has an Yes Expiration Date Implant Expiration 02/13/22 Date Tissue Implant Last Modified By: Zee Delgadillo RN 07/11/21 11:12:51 [facility] IntraOp Intraoperative Assessment Entry 1 Handoff Method Online nursing summary Valid History / Yes Physical in Chart Preoperative Yes Checklist Reviewed/Evaluated Allergies Reviewed Yes Patient is Latex No Sensitive Isolation Not applicable Precautions Noted Level of WDL Consciousness (WDL = Alert, Oriented to Person, Place, and Time) Skin Assessment No Verified Present Upon IVs Arrival to OR Last Modified By: SINA JOHNSON RN 07/11/21 10:09:43 [facility] IntraOp Intraoperative Equipment Entry 1 Type Monitoring Equipment Intraop Monitoring Electrocardiogram Five lead placement (ECG) Electrode Placement Blood Pressure Non-Invasive BP Device Source Pulse Oximeter Hand, left Probe Site Antiembolic Devices Scopes Photo/Video Documentation Photo No Video No Last Modified By: SINA JOHNSON RN 07/11/21 10:10:01 [facility] IntraOp Medication Admin Entry 1 Medication/Irrigant Lidocaine .5% plain -- [id number] Dose Dose 1 Unit of Measure % Administered By MANI THOMAS MD-MARISOL Procedure Irrigation Last Modified By: Zee Delgadillo RN 07/11/21 11:13:38 [facility] IntraOp Patient Positioning Entry 1 Procedure Wound Debridement Lower Extremity Body Position Supine Left Arm Position Resting at side Right Arm Position Resting at side Left Leg Position Uncrossed, parallel Right Leg Position Uncrossed, parallel Position Comments PROCEDURE DONE IN THE STRETCHER Feet Uncrossed Yes Pressure Points Yes Checked Positioned By Purvi Mccarty CRNA, Zee Delgadillo RN, SINA JOHNSON RN Position Verified Positioning Yes Verified by Anesthesia Positioning Yes Verified by Surgeon Last Modified By: Zee Delgadillo RN 07/11/21 11:17:05 General Comments: PROCEDURE ON PATIENT STRETCHER [facility] IntraOp Patient Positioning Audit 07/11/21 11:17:05 Grain Merchandising Manager: KURT Modifier: LIONER 1 <*> Procedure 1 <*> Procedure 1 <*> Procedure Wound Debridement Lower Extremity 1 <*> Procedure Wound Debridement Lower Extremity 1 <*> Procedure Wound Debridement Lower Extremity 1 <*> Positioned By Purvi Mccarty CRNA 1 <*> Positioned By Purvi Mccarty CRNA [facility] IntraOp Sign In Entry 1 Patient, Site, Yes Procedure Identified Surgical Consent Yes Confirmed Relevant Surgical Yes Documents Available Surgical Site N/A Marked by person performing procedure Anesthesia Machine Yes Check Completed Medication Checks Yes Completed Allergies Yes Airway Difficult No Airway/Aspiration Risk Difficult Yes Airway/Aspiration Intervention Equipment Available Blood Loss Risk No Blood Loss Yes Intervention Equipment Prepared and Ready Blood Identifiers Not applicable Verified Per Policy Hypothermia Risk Yes Warming Measures Yes Taken Last Modified By: SINA JOHNSON RN 07/11/21 10:11:03 [facility] IntraOp Sign Out Entry 1 RN Confirmation Surgical Yes Procedure(s) Identified Instrument, Sponge Yes and Sharps Counts Correct/Documented Equipment Problems N/A Documented Specimen Labeled N/A Correctly Urinary Catheter N/A Documented in IView [place] Patient Yes Recovery Concerns Reviewed with Anesthesia Provider, Surgeon and RN [place] Patient Yes Management Concerns Reviewed with Anesthesia Provider, Surgeon and RN Safety Checklist Yes Elements Complete? RN Sign Out Zee Delgadillo RN Signature RN Sign Out 07/11/21 11:31:00 Signature Date/Time Plan of Care Outcome - Fire Risk OUTCOME STATEMENT: Goal met Patient is free from injury related to surgical fire Plan of Care Outcome - Pt Positioning OUTCOME STATEMENT: Goal met Absence of signs and symptoms of positioning injury. Plan of Care Outcome - Skin Prep OUTCOME STATEMENT: Goal met Intraoperative care is consistent with measures to prevent infection Plan of Care Outcome - Xray/Images OUTCOME STATEMENT: Goal met Absence of observable signs or symptoms of radiation injury Plan of Care Outcome - Counts OUTCOME STATEMENT: Goal met Absence of signs and symptoms of injury related to extraneous objects Last Modified By: Zee Delgadillo RN 07/11/21 11:30:40 [facility] IntraOp Sign Out Audit 07/11/21 11:30:40 Grain Merchandising Manager: EANAPIER Modifier: EANAPIER <+> 1 RN Sign Out Signature <+> 1 RN Sign Out Signature Date/Time [facility] IntraOp Skin Prep Entry 1 Procedure Wound Debridement Lower Extremity Prescribed N/A Pre-Surgical Prep Completed Prep Area BILATERAL FEET Intraop Prep Prep Agents Betadine solution Prep by SINA JOHNSON RN Hair Removal Methods No hair removal performed Last Modified By: Zee Delgadillo RN 07/11/21 11:14:20 [facility] IntraOp Surgical Procedures Entry 1 Procedure Wound Debridement Lower Extremity Additional (DEBRIDEMENT OF Procedure BILATERAL FOOT WOUNDS Description WITH ACELLULAR GRAFT PLACEMENT TO LEFT FOOT) Primary Procedure Yes Primary Surgeon MANI THOMAS MD-MARISOL Start 07/11/21 11:07:00 Stop 07/11/21 11:18:00 Anesthesia Type MAC Specialty General Wound Class II - Clean-Contaminated Last Modified By: Zee Delgadillo RN 07/11/21 11:30:42 [facility] IntraOp Surgical Procedures Audit 07/11/21 11:30:42 Grain Merchandising Manager: EANAPIER Modifier: EANAPIER <+> 1 Stop 07/11/21 11:16:15 Grain Merchandising Manager: KURT Modifier: EANAPIER <+> 1 Start [facility] IntraOP Time Out Entry 1 Procedure to be Wound Debridement Lower Performed Extremity Time Out Time Out Pause Time 07/11/21 11:06:00 All activity Yes suspended (unless life threatening emergency) Team Verbally Correct patient Confirms Information identity, Correct side and site are marked, Consent form is present and accurate, Agreement on the procedure to be done, Correct patient position, Confirm antibiotics have been administered, Confirm the skin prep has dried, Confirm prosthesis/implant/devic e is present, Performed in location of procedure after prepped/draped Antibiotic Yes Prophylaxis Administered Or In Progress Within the Last 60 Minutes Beta Dmitriy Yes Administered Venous N/A Thromboembolism Prophylaxis Required Anticipated Critical Events Surgeon None expected Anesthesia Provider Patient specific concerns Nursing Assures Sterility of instruments, Equipment concerns or issues, Implant Availability Essential Imaging N/A Labeled and Displayed Last Modified By: Zee Delgadillo RN 07/11/21 11:07:26 Case Comments <None> Finalized By: ROBINSON WARREN Document Signatures Signed By: Zee Delgadillo RN 07/11/21 11:30 ROBINSON WARREN 07/14/21 16:36 Unfinalized History Date/Time Username Reason for Unfinalizing Freetext Reason for Unfinalizing 07/14/21 16:33 KATHIE Correct Billing documented in this encounter Plan of Treatment Not on file documented as of this encounter Visit Diagnoses Not on filedocumented in this encounter
--- OUTSIDE RECORDS SUMMARY | 2025-04-25 00:07 | XMS_ITS | Encounter Summary ---
Author Organization [facility] Address [address] [place] [address] Care Team Providers Care Hair Weaver Name Role Phone Unavailable Primary Care Provider Unavailabl e Encounter Details Date Type Department Care Team (Late st Contact Info) Description 07/11/2021 Transcribed Document [facility] [address] [place] [address] Dennis Greco MD [address] [facility] [place] [id number] Social History Tobacco Use Types Packs/Day Years Used Date Smoking Tobacco: Never Assessed Comments Unknown Sex and Gender Information Value Date Recorded Sex Assigned at Not on file Legal Sex Female 3:10 PM CDT Gender Identity Not on file Sexual Orientation Not on file documented as of this encounter Miscellaneous Notes * Cerner Conversion Note - Dennis Greco MD - 07/11/2021 9:46 AM EDT Patient: BEE COLON Age: 51 years Sex: Female : 1970 Associated Diagnoses: None Author: BEE BRYANT, 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 Amoxicillin- Hives. Codeine- Stomach cramps. Morphine- Stomach cramps. Plavix- Flushed and tachycardia., Allergies (5) Active Reaction acetaminophen-oxyCODONE rash amoxicillin Hives codeine Stomach cramps morphine Stomach cramps Plavix Flushed Current medications: (Selected) Inpatient Medications Ordered Cleocin HCl: 900 mg, 50 mL, 100 mL/Hr, IV Piggyback, PREOP Lactated Ringers Injection intravenous solution 1,000 mL: 20 mL/Hr, IntraVENous famotidine: 20 mg, Oral, 1-Time lidocaine 1% preservative-free injectable solution: 0.5 mL, IntraDermal, 1-Time Documented Medications Documented Cymbalta 60 mg oral delayed release capsule: 1 Cap, Oral, BID, 0 Refill(s) Farxiga 10 mg oral tablet: 1 Tab, Oral, Daily, 0 Refill(s) HumaLOG 100 units/mL injectable solution: 16 Units, SubCutaneous, TIDAC, 10 mL, 0 Refill(s) Lantus 100 units/mL subcutaneous solution: 75 Units, SubCutaneous, At Bedtime, 0 Refill(s) Lyrica 200 mg oral capsule: 1 Cap, Oral, BID, 0 Refill(s) Metoprolol Tartrate 100 mg oral tablet: 1 Tab, Oral, BID, 0 Refill(s) Nitrostat 0.4 mg sublingual tablet: 1 Tab, SubLINgual, Q5Min, not to exceed 3 doses/15 min--if pain persists, seek medical attention, PRN: as needed for chest pain, 100 Tab, 0 Refill(s) Victoza 18 mg/3 mL subcutaneous solution: 1.8 mg, SubCutaneous, Daily, 0 Refill(s) Zetia 10 mg oral tablet: 1 Tab, Oral, At Bedtime, 0 Refill(s) acetaminophen-hydrocodone 325 mg-10 mg oral tablet: 1 Tab, Oral, Q6H, PRN: Pain (Mild 1-3), 0 Refill(s) aspirin 81 mg oral tablet: 81 mg, Oral, Daily, 0 Refill(s) doxycycline hyclate 100 mg oral capsule: 1 Cap, Oral, BID isosorbide mononitrate 60 mg oral tablet, extended release: 1 Tab, Oral, At Bedtime, 0 Refill(s) ramipril 5 mg oral capsule: 1 Tab, Oral, Daily, 0 Refill(s) rosuvastatin 20 mg oral tablet: 1 Tab, Oral, At Bedtime, 0 Refill(s) spironolactone 25 mg oral tablet: 1 Tab, Oral, Daily, 30 Tab, 0 Refill(s) traMADol 50 mg oral tablet: 1 Tab, Oral, Q8H, PRN: for pain, 60 Tab, 0 Refill(s) traZODone 100 mg oral tablet: 1 Tab, Oral, At Bedtime, 0 Refill(s), Home Medications (18) Active acetaminophen-hydrocodone 325 mg-10 mg oral tablet 1 Tab, PRN, Oral, Q6H aspirin 81 mg oral tablet 81 mg, Oral, Daily Cymbalta 60 mg oral delayed release capsule 60 mg = 1 Cap, Oral, BID doxycycline hyclate 100 mg oral capsule 100 mg = 1 Cap, Oral, BID Farxiga 10 mg oral tablet 10 mg = 1 Tab, Oral, Daily HumaLOG 100 units/mL injectable solution 16 Units, SubCutaneous, TIDAC isosorbide mononitrate 60 mg oral tablet, extended release 60 mg = 1 Tab, Oral, At Bedtime Lantus 100 units/mL subcutaneous solution 75 Units, SubCutaneous, At Bedtime Lyrica 200 mg oral capsule 200 mg = 1 Cap, Oral, BID Metoprolol Tartrate 100 mg oral tablet 100 mg = 1 Tab, Oral, BID Nitrostat 0.4 mg sublingual tablet 0.4 mg = 1 Tab, PRN, SubLINgual, Q5Min ramipril 5 mg oral capsule 1 Tab, Oral, Daily rosuvastatin 20 mg oral tablet 20 mg = 1 Tab, Oral, At Bedtime spironolactone 25 mg oral tablet 25 mg = 1 Tab, Oral, Daily traMADol 50 mg oral tablet 50 mg = 1 Tab, PRN, Oral, Q8H traZODone 100 mg oral tablet 100 mg = 1 Tab, Oral, At Bedtime Victoza 18 mg/3 mL subcutaneous solution 1.8 mg, SubCutaneous, Daily Zetia 10 mg oral tablet 10 mg = 1 Tab, Oral, At Bedtime , Medications (4) Active Scheduled: (3) clindamycin/D5w 900 mg 50 mL, IV Piggyback, PREOP famotidine 20 mg tab 20 mg 1 Tab, Oral, 1-Time lidocaine 1% *PF* inj 2 mL 0.5 mL, IntraDermal, 1-Time Continuous: (1) lactated ringers 1,000 mL 1,000 mL, IntraVENous, 20 mL/Hr PRN: (0) Problem list: All Problems 6-Stented coronary artery / [facility] CT 1751884754 / Confirmed Spinal cord stimulator status rt hip pt turned off this am / SNOMED CT 849775869 / Confirmed Peripheral vascular disease / SNOMED CT 7970030212 / Confirmed Myocardial infarction / SNOMED CT 12623832 / Confirmed Hypertension / SNOMED CT 77759182 / Confirmed History of obstructive sleep apnea / IMO 73948456 / Confirmed Fibromyalgia / SNOMED CT 06172849 / Confirmed DM - Diabetes mellitus / SNOMED CT 622093752 / Confirmed Diabetic neuropathy / SNOMED CT 672455602 / Confirmed Coronary artery disease / SNOMED CT 0648583903 / Confirmed Chronic back pain / SNOMED CT 459344459 / Confirmed Cellulitis of foot, left / SNOMED CT 593083152 / Confirmed Angina / SNOMED CT 472642844 / Confirmed -2020 Non-ST elevation [place] (NSTEMI) x 2 / SNOMED CT 3636240070 / Confirmed Unsteady gait-uses cane / SNOMED CT 28831309 / Confirmed, Active Problems (15) Non-ST elevation VT (NSTEMI) x 2 6-Stented coronary artery Angina Cellulitis of foot, left Chronic back pain Coronary artery disease Diabetic neuropathy DM - Diabetes mellitus Fibromyalgia History of obstructive sleep apnea Hypertension Myocardial infarction Peripheral vascular disease Spinal cord stimulator status rt hip pt turned off this am Unsteady gait-uses cane non healing wounds spenser feet Histories Past 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: No active or resolved past medical history items have been selected or recorded. Family History: No family history items have been selected or recorded. Procedure history: Hysterectomy ([id number]). right foot pinning. lap with laser x3. rt knee scope x2. left knee scope. right hand CMC x4. left hand CMC x1. all toes amputated from left foot. left shoulder scope. right shoulder scope. Cholecystectomy (69293241). Appendectomy (130250657). spinal cord stimulator. Physical Examination VS/Measurements No qualifying data available, Measurements from flowsheet : Measurements 07/10/2021 16:16 EDT Height Source Measured Height Entry Format [place] Height/Length, [place] (ft) 5 ft Height/Length [place] 6.5 Inch CLINICALHEIGHT 168.91 cm [place] Body Weight 60 kg Weight Source Standing scale Weight Entry Format [place] Weight [place] lb 281 lb CLINICALWEIGHT 127.73 kg Body Surface Area (BSA) 2.33 m2 Body Mass Index 44.8 kg/m2 >HHI General: Alert and oriented, No acute distress, morbid obesity. Eye: Pupils are equal, round and reactive to light, Extraocular movements are intact, glasses. HENT: Normocephalic, Normal hearing. Neck: Supple, Non-tender. Respiratory: Lungs are clear to auscultation, Respirations are non-labored. Cardiovascular: Normal rate, Regular rhythm, No murmur, No gallop, LLE 1+ edema. Gastrointestinal: Soft, Non-tender. Genitourinary: No costovertebral angle tenderness. Lymphatics: No lymphadenopathy neck, axilla, groin. Musculoskeletal: SCS R lower back/hip area, LLE partial amputation, unsteady gait, uses cane. Integumentary: Warm, Dry, non healing wounds spenser feet POA. Neurologic: Alert, Oriented. Psychiatric: Cooperative, Appropriate mood & affect. Review / Management Results review: No qualifying data available. Impression and Plan Condition: Stable. documented in this encounter Plan of Treatment Not on file documented as of this encounter Visit Diagnoses Not on filedocumented in this encounter
--- OUTSIDE RECORDS SUMMARY | 2025-04-25 00:07 | XMS_ITS | Encounter Summary ---
Author Organization [facility] Address [address] [place] [address] Care Team Providers Care Secondary Art Teacher Name Role Phone Unavailable Primary Care Provider Unavailabl e Encounter Details Date Type Department Care Team (Late st Contact Info) Description 10/10/2020 Transcribed Document [facility] [place] [facility] [address] [place] [address] ProviderEvangelista MD [address] [id number] Social History Tobacco Use Types Packs/Day Years Used Date Smoking Tobacco: Never Assessed Comments Unknown Sex and Gender Information Value Date Recorded Sex Assigned at Not on file Legal Sex Female 3:10 PM CDT Gender Identity Not on file Sexual Orientation Not on file documented as of this encounter Miscellaneous Notes * Cerner Conversion Note - Evangelista Carbone MD - 10/10/2020 10:58 AM ACCOUNTS PAYABLE ASSOCIATE Patient: BEE COLON Age: 50 Years Sex: Female : 1970 FOLLOW-UP DATE OF SERVICE: 09/19/2020. CHIEF COMPLAINT: Bilateral lower leg pain, low back pain. HISTORY OF PRESENT ILLNESS: The patient is a 50-year-old female who returns to the clinic for follow-up on her 15-year history of low back pain, lower leg pain. She is having increased neuropathy in both feet and her back is bothering her a little bit higher up than usual. She rates her pain as 7/10 on the pain scale. Quality is aching, radiating, numbness, tingling, and constant. She gets 60% relief with her current medication. Pain is increased with cold weather, walking, and standing for prolonged periods; decreased with rest, elevating her legs. Fall risk information sheet provided. HISTORY: Allergies: Codeine, Morphine, Percocet, Amoxicillin. Social History: Marital status: Single. Current work status: Not answered. Current tobacco use: Denies. Illicit drug use: Denies. Alcohol use: Denies. Caffeine use: Not answered. Past 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: Arthritis. Diabetes. Heart attack. High blood pressure. High cholesterol. Obstructive sleep apnea. Past Surgical History: Appendix. Breast. Gallbladder. Heart. Hysterectomy. Knee. Ovaries. Shoulder. Back. Past Family History: Melanoma cancer. Colon cancer. REVIEW OF SYSTEMS: The patient's ten system Review of Systems was performed. General: Fatigue. Respiratory: Negative. Neurological: Numbness/tingling. Gastrointestinal: Negative. Musculoskeletal: Joint pain/stiffness, back pain, muscle aches and pain. Cardiovascular: Negative. Psychiatric: Anxiety. HEENT: Negative. Endocrine: Negative. Hematology: Negative. Skin: Negative. Genitourinary: Negative. VITAL SIGNS: Vital signs are reviewed. Blood pressure 122/72, heart rate 86, respiratory rate 16, O2 SATs 95%, height 5'6.5 , weight 260 lbs. PHYSICAL EXAMINATION: Constitutional: Freely conversant and in no acute distress. Integumentary: Deferred. HEENT: Deferred. Neck: Deferred. Chest and Lung: Deferred. Cardiovascular: Deferred. Abdomen: Deferred. Peripheral Vascular: Deferred Neurologic: Deferred. Neuropsychiatric: Alert and oriented x 3. Normal mood and affect. The patient scored a 9 on the depression questionnaire. Musculoskeletal: Negative. Established patient exam is deferred. MEDICAL DECISION MAKING: Patient's DEVYN is reviewed and is appropriate. Patient???s medications are reviewed, see list in patient???s file. ASSESSMENT: Worsening. 1. Chronic pain syndrome. 2. Lumbar degenerative disc disease. 3. Lumbar spondylosis. 4. Lumbar radiculitis bilateral lower extremities, right equal to left. 5. Painful diabetic peripheral neuropathy with spinal cord stimulator, [employer] system. CURRENT PLAN: Ms. Colon and I discussed different options with her medication and her spinal cord stimulator. We have decided to get smooth of [employer] about reprogramming before we do anything with her medication. So, I have contacted them and asked if they could call her. I am going to continue her on her [place] 10 mg every 6 hours, Lyrica 200 mg every 12 hours, Tramadol 50 mg every six hours, Cymbalta 60 mg every 12 hours, Trazodone 100 mg qhs. She denies any side effects. She is in agreement with the above plan. We will see her back in follow-up in two months. Anahy Fraser M.D. Yas documented in this encounter Plan of Treatment Not on file documented as of this encounter Visit Diagnoses Not on filedocumented in this encounter
--- OUTSIDE RECORDS SUMMARY | 2025-04-25 00:08 | XMS_ITS | Encounter Summary ---
Author Organization [employer] [facility] [employer] Address [address] [place] [address] Care Team Providers Care Environmental Field Professional Name Role Phone Unavailable Primary Care Provider Unavailabl e Encounter Details Date Type Department Care Team (Late st Contact Info) Description 03/20/2022 Transcribed Document [facility] Family Medicine [address] [place] [address] ProviderEvangelista MD [address] [place] [address] Social History Tobacco Use Types Packs/Day Years Used Date Smoking Tobacco: Never Assessed Comments Unknown Sex and Gender Information Value Date Recorded Sex Assigned at Not on file Legal Sex Female 3:10 PM CDT Gender Identity Not on file Sexual Orientation Not on file documented as of this encounter Miscellaneous Notes * Cerner Conversion Note - Evangelista ProviderMD - 03/20/2022 9:01 AM CDT [facility] Main OR PostOp Summary Primary Physician: ANGELA GREEN DPM-POD Finalized Date/Time: 03/20/22 10:58:03 Pt. Name: BEE COLON/Sex: 1970 Female Med Rec #: [id number] Physician: ANGELA GREEN DPM-POD Financial #: [id number] Pt. Type: O Room/Bed: /6 Admit/Disch: 03/20/22 06:30:00 - Institution: [facility] Main OR PostOp Case Times Entry 1 In PACU II 03/20/22 09:56:00 Ready for PACU II 03/20/22 09:49:00 Discharge Discharge from PACU 03/20/22 10:56:00 II Last Modified By: Raji Matos RN-PATIENT CARE BEDSIDE NON-EXEMPT 03/20/22 10:58:00 [facility] Main OR PostOp Case Times Audit 03/20/22 10:58:00 Fleet Director: [id number] Modifier: [id number] <+> 1 Discharge from PACU II 03/20/22 10:57:51 Fleet Director: [id number] Modifier: [id number] <+> 1 Ready for PACU II Discharge Finalized By: Raji Matos, RN-PATIENT CARE BEDSIDE NON-EXEMPT Document Signatures Signed By: Raji Matos RN-PATIENT CARE BEDSIDE NON-EXEMPT 03/20/22 10:58 Electronically signed by [facility] Conversion Analytical Consultant Cerner at 03/05/2023 6:54 PM CDT documented in this encounter Plan of Treatment Not on file documented as of this encounter Visit Diagnoses Not on filedocumented in this encounter
--- OUTSIDE RECORDS SUMMARY | 2025-04-25 00:08 | XMS_ITS | Encounter Summary ---
Author Organization [facility] [employer] [facility] Address [address] [place] [address] Care Team Providers Care Well Logging Captain Mud Analysis Name Role Phone Unavailable Primary Care Provider Unavailabl e Encounter Details Date Type Department Care Team (Late st Contact Info) Description 07/11/2021 Transcribed Document [facility] [place] [facility] [address] ProviderEvangelista MD [address] [place] [address] Social History Tobacco Use Types Packs/Day Years Used Date Smoking Tobacco: Never Assessed Comments Unknown Sex and Gender Information Value Date Recorded Sex Assigned at Not on file Legal Sex Female 3:10 PM CDT Gender Identity Not on file Sexual Orientation Not on file documented as of this encounter Miscellaneous Notes * Cerner Conversion Note - Evangelista Carbone MD - 07/11/2021 12:06 PM CDT Patient Education Materials Follows: Surgical Wound Debridement, Care After This sheet gives you information about how to care for yourself after your procedure. Your health care provider may also give you more specific instructions. If you have problems or questions, contact your health care provider. What can I expect after the procedure? After the procedure, it is common to have: ??? Pain or soreness. ??? Fluid that leaks from the wound. ??? Stiffness. ??? A larger wound. This is because the tissue has been removed. Follow these instructions at home: Medicines ??? Take ezqr-ekc-zokgwjg and prescription medicines only as told by your health care provider. ??? If you were prescribed an antibiotic medicine, take it or apply it as told by your health care provider. Do not stop using the antibiotic even if you start to feel better. Wound care ??? Follow instructions from your health care provider about how to take care of your wound. Make sure you: ? Wash your hands with soap and water before and after you change your bandage (dressing). If soap and water are not available, use hand tow driver. ? Change your dressing as told by your health care provider. ? If your dressing is dry and stuck when you try to remove it, moisten or wet the dressing with saline or water so that it can be removed without harming your skin or wound tissue. ??? Check your wound for signs of infection every time your dressing is changed. Have someone help you do this if you are not able. Watch for: ? More redness, swelling, or pain. ? More fluid or blood. ? Warmth. ? Pus. ? A bad smell coming from your wound even after you clean it. ??? Do not take baths, swim, or use a hot tub until your health care provider approves. Ask your health care provider if you may take showers. You may only be allowed to take sponge baths. Activity ??? Do not drive or use heavy machinery while taking prescription pain medicine. ??? Return to your normal activities as told by your health care provider. Ask your health care provider what activities are safe for you. General instructions ??? Eat a healthy diet with lots of protein such as meats, cheese, nuts and beans. Ask your health care provider to suggest the best diet for you. ??? Do not use any products that contain nicotine or tobacco, such as cigarettes, e-cigarettes, and chewing tobacco. These can delay wound healing after surgery. If you need help quitting, ask your health care provider. ??? Keep all follow-up visits as told by your health care provider. This is important. Contact a health care provider if: ??? You have a fever. ??? Your pain medicine is not helping. ??? Your wound is more red and swollen. ??? You have increased bleeding. ??? You have pus coming from your wound. ??? You have a bad smell coming from your wound. ??? Your wound is not getting better after 1?2 weeks of treatment. ??? You develop a new medical condition, such as diabetes, peripheral vascular disease, or conditions that affect your defense system (immune system). Summary ??? After the procedure, it is common to have pain, soreness, stiffness, or fluid leaking from the wound. ??? Follow instructions from your health care provider about how to take care of your wound. ??? Check your wound for signs of infection every time your dressing is changed. ??? Eat a healthy diet with lots of protein. Ask your health care provider to suggest the best diet for you. ??? Contact a health care provider if you have fever, more swelling and redness, increased bleeding, or a bad smell from the wound. This information is not intended to replace advice given to you by your health care provider. Make sure you discuss any questions you have with your health care provider. Document Revised: 10/25/2019 Document Reviewed: 10/25/2019 [employer] Patient Education ? 2020 [employer]. Obstetrics and Gynecology Monitored Anesthesia Care, Care After These instructions provide you with information about caring for yourself after your procedure. Your health care provider may also give you more specific instructions. Your treatment has been planned according to current medical practices, but problems sometimes occur. Call your health care provider if you have any problems or questions after your procedure. What can I expect after the procedure? After your procedure, you may: ??? Feel sleepy for several hours. ??? Feel clumsy and have poor balance for several hours. ??? Feel forgetful about what happened after the procedure. ??? Have poor judgment for several hours. ??? Feel nauseous or vomit. ??? Have a sore throat if you had a breathing tube during the procedure. Follow these instructions at home: For at least 24 hours after the procedure: ??? Have a responsible adult stay with you. It is important to have someone help care for you until you are awake and alert. ??? Rest as needed. ??? Do not: ? Participate in activities in which you could fall or become injured. ? Drive. ? Use heavy machinery. ? Drink alcohol. ? Take sleeping pills or medicines that cause drowsiness. ? Make important decisions or sign legal documents. ? Take care of children on your own. Eating and drinking ??? Follow the diet that is recommended by your health care provider. ??? If you vomit, drink water, juice, or soup when you can drink without vomiting. ??? Make sure you have little or no nausea before eating solid foods. General instructions ??? Take zecd-wlf-smbgzbl and prescription medicines only as told by your health care provider. ??? If you have sleep apnea, surgery and certain medicines can increase your risk for breathing problems. Follow instructions from your health care provider about wearing your sleep device: ? Anytime you are sleeping, including during daytime naps. ? While taking prescription pain medicines, sleeping medicines, or medicines that make you drowsy. ??? If you smoke, do not smoke without supervision. ??? Keep all follow-up visits as told by your health care provider. This is important. Contact a health care provider if: ??? You keep feeling nauseous or you keep vomiting. ??? You feel light-headed. ??? You develop a rash. ??? You have a fever. Get help right away if: ??? You have trouble breathing. Summary ??? For several hours after your procedure, you may feel sleepy and have poor judgment. ??? Have a responsible adult stay with you for at least 24 hours or until you are awake and alert. This information is not intended to replace advice given to you by your health care provider. Make sure you discuss any questions you have with your health care provider. Document Revised: 01/31/2019 Document Reviewed: 02/22/2017 [email or web address] Patient Education ? 2020 [employer] documented in this encounter Plan of Treatment Not on file documented as of this encounter Visit Diagnoses Not on filedocumented in this encounter
--- OUTSIDE RECORDS SUMMARY | 2025-04-25 00:08 | XMS_ITS | Encounter Summary ---
Author Organization [employer] Address [address] [place] [address] Care Team Providers Care Police Specialist Name Role Phone Unavailable Primary Care Provider Unavailabl e Encounter Details Date Type Department Care Team (Late st Contact Info) Description 08/12/2019 Transcribed Document [facility] [place] [facility] [place] [address] ProviderEvangelista MD [address] [place] [address] Social History Tobacco Use Types Packs/Day Years Used Date Smoking Tobacco: Never Assessed Comments Unknown Sex and Gender Information Value Date Recorded Sex Assigned at Not on file Legal Sex Female 3:10 PM CDT Gender Identity Not on file Sexual Orientation Not on file documented as of this encounter Miscellaneous Notes * Cerner Conversion Note - Evangelista Carbone MD - 08/12/2019 12:31 PM CDT Patient: ANGEL COLON Age: 49 Years Sex: Female : 1970 DATE OF SERVICE: 08/10/2019. CHIEF COMPLAINT: Lower back and bilateral leg pain and numbness. HISTORY OF PRESENT ILLNESS: The patient is a _ Quality is _ Fall risk information sheet has been provided. ALLERGIES: _ SOCIAL HISTORY: Marital status: _ Current work status: _ Current tobacco use: _ Illicit drug use: _ Alcohol use: _ Caffeine use: _ PAST MEDICAL HISTORY: Positive for _ PAST SURGICAL HISTORY: Positive for _ PAST FAMILY HISTORY: Positive for _ REVIEW OF SYSTEMS: The patient's Ten System Review of Systems was performed: General: _Negative. Respiratory: _Negative. Neurological: _Negative. Gastrointestinal: _Negative. Musculoskeletal: _Negative. Cardiovascular: _Negative. Psychiatric: _Negative. HEENT: _Negative. Endocrine: _Negative. Hematology: _Negative. Skin: _Negative. Genitourinary: _Negative. All other systems reviewed were found to be negative. VITAL SIGNS: Vital signs are reviewed. B/P _, heart rate _, respiratory rate _, O2 SATs _% on room air, height _???_?? , weight _ lb. PHYSICAL EXAMINATION: Constitutional: Freely conversant, no acute distress. General: _The patient is alert and oriented x3. Normal mood and affect. The patient scored a _ on the depression questionnaire. Integumentary: _Deferred. HEENT: _Deferred. Neck: _Deferred. Chest and Lung: _Deferred. Cardiovascular: _Deferred. Abdomen: _Deferred. Peripheral Vascular: _Deferred. Neurologic: _Deferred. Neuropsychiatric: _Deferred. Musculoskeletal: _Deferred. Established patient exam is deferred. DIAGNOSTIC STUDIES: Not present. MEDICAL DECISION MAKING: Stable. _KASPER is reviewed and is appropriate. _ Patient's medications reviewed. See list in patient's file. ASSESSMENT: Stable. 1. _ 2. _ 3. _ 4. _ PROCEDURE/TEST ORDERED: Not present. PLAN: _ The patient is in agreement with the above plan. We will see this patient back in follow-up in two months. Anahy Fraser M.D. GEORGI:cherie documented in this encounter Plan of Treatment Not on file documented as of this encounter Visit Diagnoses Not on filedocumented in this encounter
--- OUTSIDE RECORDS SUMMARY | 2025-04-25 00:08 | XMS_ITS | Encounter Summary ---
Author Organization [employer] Address [address] [place] [address] Care Team Providers Care City Bailiff Name Role Phone Unavailable Primary Care Provider Unavailabl e Encounter Details Date Type Department Care Team (Late st Contact Info) Description 03/20/2022 Transcribed Document [facility] [place] Family Medicine [facility] [place] [address] ProviderEvangelista MD [address] [place] [address] Social History Tobacco Use Types Packs/Day Years Used Date Smoking Tobacco: Never Assessed Comments Unknown Sex and Gender Information Value Date Recorded Sex Assigned at Not on file Legal Sex Female 3:10 PM CDT Gender Identity Not on file Sexual Orientation Not on file documented as of this encounter Miscellaneous Notes * Cerner Conversion Note - Evangelista ProviderMD - 03/20/2022 10:22 AM CDT [place] [address] BEE COLON :1970 Visit Time:03/20/2022 What to do next Your Diagnosis Pain due to internal orthopedic prosthetic devices, implants and grafts, initial encounter, Pain due to internal orthopedic prosthetic devices, implants and grafts, initial encounter Instructions From Your Care Team Diet after Discharge: Resume usual diet as tolerated, Do not drink any alcoholic beverages Activity after Discharge: Rest and relax today, No strenuous activity. Partial weight bearing while in surgical shoe. Keep right foot elevated above level of heart. Lifting Restrictions: No heavy lifting Driving after [...] Follow-Up Appointments Follow Up with ANGELA GREEN DPM-POD When 03/24/2022 02:00 PM EDT [facility] [address] [place] [address]- Medications What How Much When Instructions Next Dose acetaminophen-hydrocodone (acetaminophen-hydrocodone 325 mg-10 mg oral tablet) 1 Tablet(s) Oral Every 6 Hours as needed for as needed for pain aspirin (aspirin 81 mg oral tablet) 81 Milligram(s) Oral Every Day dapagliflozin (Farxiga 10 mg oral tablet) 1 Tablet(s) Oral Every Day Diabetic Supplies (Dexcom G6 Glucose Sensor) See Special Instructions Miscellaneous Every Day USE DIRECTED DULoxetine (Cymbalta 60 mg oral delayed release capsule) 1 Capsule(s) Oral Two Times A Day ezetimibe (Zetia 10 mg oral tablet) 1 Tablet(s) Oral At Bedtime insulin glargine (Lantus 100 units/ mL subcutaneous solution) 80 Unit(s) SubCutaneous At Bedtime insulin lispro (HumaLOG 100 units/ mL injectable solution) SubCutaneous Before Meals sliding scale per BG : usually at lunch and supper - doses 20-22 units isosorbide mononitrate (isosorbide mononitrate 60 mg oral tablet, extended release) 1 Tablet(s) Oral At Bedtime liraglutide (Victoza 18 mg/ 3 mL subcutaneous solution) 1.8 Milligram(s) SubCutaneous Every Day metoprolol (Metoprolol Tartrate 100 mg oral tablet) 1 Tablet(s) Oral Two Times A Day nitroglycerin (Nitrostat 0.4 mg sublingual tablet) 1 Tablet(s) SubLINgual Every 5 minutes as needed for as needed for chest pain not to exceed 3 doses/ 15 min--if pain persists, seek medical attention pregabalin (Lyrica 200 mg oral capsule) 1 Capsule(s) Oral Two Times A Day ramipril (ramipril 5 mg oral capsule) 1 Tablet(s) Oral Every Day rivaroxaban (Xarelto 2.5 mg oral tablet) 1 Tablet(s) Oral Two Times A Day rosuvastatin (rosuvastatin 20 mg oral tablet) 1 Tablet(s) Oral At Bedtime spironolactone (spironolactone 25 mg oral tablet) 1 Tablet(s) Oral Every Day traMADol (traMADol 50 mg oral tablet) 1 Tablet(s) Oral Every 8 Hours as needed for for pain traZODone (traZODone 100 mg oral tablet) 1 Tablet(s) Oral At Bedtime Take your medications faithfully. [...] and medications per pharmacy guidance. Education Materials Orthopedic Hardware Removal, Care After This sheet gives you information about how to care for yourself after your procedure. Your health care provider may also give you more specific instructions. If you have problems or questions, contact your health care provider. What can I expect after the procedure? After the procedure, it is common to have: ??? Soreness or pain. ??? Some swelling in the area where the hardware was removed. ??? A small amount of blood or clear fluid coming from your incision. Follow these instructions at home: If you have a cast: ??? Do not stick anything inside the cast to scratch your skin. Doing that increases your risk of infection. ??? Check the skin around the cast every day. Tell your health care provider about any concerns. ??? You may put lotion on dry skin around the edges of the cast. Do not put lotion on the skin underneath the cast. ??? Keep the cast clean and dry. If you have a splint or boot: ??? Wear the splint or boot as told by your health care provider. Remove it only as told by your health care provider. ??? Loosen the splint or boot if your fingers or toes tingle, become numb, or turn cold and blue. ??? Keep the splint or boot clean and dry. Bathing ??? Do not take baths, swim, or use a hot tub until your health care provider approves. Ask your health care provider if you may take showers. You may only be allowed to take sponge baths. ??? Keep the bandage (dressing) dry until your health care provider says it can be removed. ??? If your cast, splint, or boot is not waterproof: ? Do not let it get wet. ? Cover it with a watertight covering when you take a bath or a shower. Incision care ??? Follow instructions from your health care provider about how to take care of your incision. Make sure you: ? Wash your hands with soap and water before you change your dressing. If soap and water are not available, use hand phosphatic fertilizer supervisor. ? Change your dressing as told by [...] for signs of infection. Check for: ? Redness. ? More swelling or pain. ? More fluid or blood. ? Warmth. ? Pus or a bad smell. Managing pain, stiffness, and swelling ??? If directed, put ice on the affected area: ? If you have a removable splint or boot, remove it as told by your health care provider. ? Put ice in a plastic bag. ? Place a towel between your skin and the bag. ? Leave the ice on for 20 minutes, 2???3 times a day. ??? Move your fingers or toes often to avoid stiffness and to lessen swelling. ??? Raise (elevate) the injured area above the level of your heart while you are sitting or lying down. Driving ??? Do not drive or use heavy machinery while taking prescription pain medicine. ??? Do not drive for 24 hours if you were given a medicine to help you relax (sedative) during your procedure. ??? Ask your health care provider when it is safe to drive if you have a cast, splint, or boot on the affected limb. Activity ??? Ask your health care provider what activities are safe for you during recovery, and ask what activities you need to avoid. ??? Do not use the injured limb to support your body weight until your health care provider says that you can. ??? Do not play contact sports until your health care provider approves. ??? Do exercises as told by your health care provider. ??? Avoid sitting for a long time without moving. Get up and move around at least every few hours. This will help prevent blood clots. General instructions ??? Do not put pressure on any part of the cast or splint until it is fully hardened. This may take several hours. ??? If you are taking prescription pain medicine, take actions to prevent or treat constipation. Your health care provider may recommend that you: ? Drink enough fluid to keep your urine pale yellow. ? Eat foods that are high in fiber, such as fresh fruits and vegetables, whole grains, and beans. ? Limit foods that are high in fat and processed sugars, such as fried or sweet foods. ? Take an jnvp-dwp-zpclitg or prescription medicine for constipation. ??? Do not use any products that contain nicotine or tobacco, such as cigarettes and e-cigarettes. These can delay bone healing after surgery. If you need help quitting, ask your health care provider. ??? Take mjwf-vze-cstoxcs and prescription medicines only as told by your health care provider. ??? Keep all follow-up visits as told by your health care provider. This is important. Contact a health care provider if: ??? You have lasting pain. ??? You have redness around your incision. ??? You have more swelling or pain around your incision. ??? You have more fluid or blood coming from your incision. ??? Your incision feels warm to the touch. ??? You have pus or a bad smell coming from your incision. ??? You are unable to do exercises or physical activity as told by your health care provider. Get help right away if: ??? You have difficulty breathing. ??? You have chest pain. ??? You have severe pain. ??? You have a fever or chills. ??? You have numbness for more than 24 hours in the area where the hardware was removed. Summary ??? After the procedure, it is common to have some pain and swelling in the area where the hardware was removed. ??? Follow instructions from your health care provider about how to take care of your incision. ??? Return to your normal activities as told by your health care provider. Ask your health care provider what activities are safe for you. This information is not intended to replace advice given to you by your health care provider. Make sure you discuss any questions you have with your health care provider. Document Revised: 12/29/2019 Document Reviewed: 11/25/2018 [employer] Patient Education ?? 2020 [employer]. Outpatient Surgery, Adult, Care After This sheet [...] children on your own. Medicines ??? Take fwcp-wiz-bzdxzov and prescription medicines only as told by [...] keep your urine pale yellow. ? Take gwig-eco-voidwyn or prescription medicines. ? Eat foods that [...] added (diluted fruit juice). ? Eat bland, xarp-tx-wcfktd foods in small amounts as you are [...] and water are not available, use hand phosphatic fertilizer supervisor. ? Change your dressing as told by [...] your local emergency services (911 in the .[place] Do not drive yourself to the hospital. [...] drink clear fluids slowly and eat bland, yeit-gn-ubiunp foods in small amounts. ??? Ask your health care provider what activities are safe for you. This information is not intended to replace advice given to you by your health care provider. Make sure you discuss any questions you have with your health care provider. Document Revised: 03/01/2021 Document Reviewed: 08/23/2020 [employer] Patient Education ?? 2020 [employer]. Emergency Awareness and Preventative Care STROKE is [...] Assistance with quitting is available by contacting 4-125-GFYD-NOW. This is a free resource providing counseling, [...] This Visit (last charted value for your 03/20/2022 visit) Hematology 03/19/2022 12:48 PM WBC: 12.4 K/uL -- Normal range between ( 4.5 and 10.5 ) RBC: 4.88 Million/uL -- Normal range between ( 3.93 and 5.22 ) Hct: 41.9 % -- Normal range between ( 34.1 and 44.9 ) Hgb: 12.8 g/dL -- Normal range between ( 11.2 and 15.7 ) Platelet Count: 285 K/uL -- Normal range between ( 163 and 369 ) MCH: 26.2 pg -- Normal range between ( 25.6 and 32.2 ) MCHC: 30.5 Gram/dL -- Normal range between ( 32.2 and 36.5 ) MCV: 85.9 fL -- Normal range between ( 79.0 and 94.8 ) Slide Review: No Eos %: 2.4 % -- Normal range between ( 0.0 and 7.0 ) [place] #: 1.05 K/uL -- Normal range between ( 0.16 and 1.00 ) Eos #: 0.30 x10(3)/uL -- Normal range between ( 0.00 and 0.80 ) [place] %: 8.5 % -- Normal range between ( 3.0 and 9.0 ) Baso %: 0.6 % -- Normal range between ( 0.0 and 1.5 ) Baso #: 0.08 x10(3)/uL -- Normal range between ( 0.00 and 0.20 ) RDW: 15.9 % -- Normal range between ( 11.7 and 14.9 ) Neut %: 58.7 % -- Normal range between ( 34.0 and 71.0 ) Neut #: 7.26 K/uL -- Normal range between ( 1.56 and 6.13 ) Lymph %: 29.3 % -- Normal range between ( 19.3 and 53.1 ) Lymph #: 3.63 x10(3)/uL -- Normal range between ( 1.00 and 3.90 ) MPV: 11.0 fL -- Normal range between ( 9.4 and 12.4 ) IG#: 0.06 x10(3)/uL -- Normal range between ( 0.00 and 0.05 ) IG%: 0.50 % -- Normal range between ( 0.00 and 0.60 ) General Chemistry 03/20/2022 7:19 AM Glucose POC2: 231 mg/dL -- Normal range between ( 70 and 110 ) 03/19/2022 12:48 PM Creatinine Level: 1.30 mg/dL -- Normal range between ( 0.55 and 1.02 ) Sodium Level: 137 mmol/L -- Normal range between ( 136 and 146 ) Potassium Level: 4.3 mmol/L -- Normal range between ( 3.5 and 5.1 ) Chloride Level: 105 mmol/L -- Normal range between ( 102 and 112 ) Carbon Dioxide Level: 29 mmol/L -- Normal range between ( 21 and 32 ) Anion Gap: 7 -- Normal range between ( 9 and 20 ) Bilirubin Total: 0.4 mg/dL -- Normal range between ( 0.2 and 1.2 ) A/G Ratio: 0.8 -- Normal range between ( 1.1 and 2.5 ) ALT: 19 Units/Liter -- Normal range between ( 13 and 56 ) AST: 12 Units/Liter -- Normal range between ( 5 and 37 ) Globulin: 4.0 Gram/dL -- Normal range between ( 1.5 and 4.5 ) Alk Phos: 89 Units/Liter -- Normal range between ( 27 and 136 ) Bun/Creatinine: 20.0 -- Normal range between ( 8.0 and 20.0 ) Calcium Level: 9.3 mg/dL -- Normal range between ( 8.4 and 10.1 ) eGFR : 52 mL/min/1.73m2 eGFR NonAfrican: 43 mL/min/1.73m2 Glucose Level: 64 mg/dL -- Normal range between ( 74 and 106 ) Blood Urea Nitrogen: 26 mg/dL -- Normal range between ( 7 and 22 ) Protein Total: 7.3 Gram/dL -- Normal range between ( 6.4 and 8.2 ) Albumin Level: 3.3 Gram/dL -- Normal range between ( 3.4 and 5.0 ) Patient Name:BEE COLON I have received this information and was given the opportunity to ask questions. Patient/Investment Accountant Name: Patient/Investment Accountant Signature: Relationship to Patient: Clinician/Hospital Investment Accountant Signature: Date: documented in this encounter Plan of Treatment Not on file documented as of this encounter Visit Diagnoses Not on filedocumented in this encounter
--- OUTSIDE RECORDS SUMMARY | 2025-04-25 00:08 | XMS_ITS | Encounter Summary ---
Author Organization [employer] Address [address] [place] [address] Care Team Providers Care Yard Engineer Name Role Phone Unavailable Primary Care Provider Unavailabl e Encounter Details Date Type Department Care Team (Late st Contact Info) Description 03/20/2022 Transcribed Document [facility] [place] Family Medicine [facility] [place] [address] ProviderEvangelista MD [address] [place] [address] Social History Tobacco Use Types Packs/Day Years Used Date Smoking Tobacco: Never Assessed Comments Unknown Sex and Gender Information Value Date Recorded Sex Assigned at Not on file Legal Sex Female 3:10 PM CDT Gender Identity Not on file Sexual Orientation Not on file documented as of this encounter Miscellaneous Notes * Cerner Conversion Note - Evangelista Carbone MD - 03/20/2022 7:25 AM CDT Patient Education Materials Follows: Orthopedic Hardware Removal, Care After This sheet [...] and water are not available, use hand food order expediter. ? Change your dressing as told by [...] 2?3 times a day. ??? Move your fingers [...] fried or sweet foods. ? Take an pvma-tqn-evqbuqf or prescription medicine for constipation. ??? Do not use any products that contain nicotine or tobacco, such as cigarettes and e-cigarettes. These can delay bone healing after surgery. If you need help quitting, ask your health care provider. ??? Take jbuh-nyr-ipojhpe and prescription medicines only as told by [...] provider. Document Revised: 12/29/2019 Document Reviewed: 11/25/2018 [employer] Patient Education ? 2020 [employer]. Procedures Outpatient Surgery, Adult, Care After This [...] children on your own. Medicines ??? Take sgoa-bqa-jratnpf and prescription medicines only as told by [...] keep your urine pale yellow. ? Take votc-cht-rjwquif or prescription medicines. ? Eat foods that [...] added (diluted fruit juice). ? Eat bland, scqk-on-ycqulh foods in small amounts as you are [...] and water are not available, use hand food order expediter. ? Change your dressing as told by [...] drink clear fluids slowly and eat bland, dsju-ep-wahkkj foods in small amounts. ??? Ask your health care provider what activities are safe for you. This information is not intended to replace advice given to you by your health care provider. Make sure you discuss any questions you have with your health care provider. Document Revised: 03/01/2021 Document Reviewed: 08/23/2020 [employer] Patient Education ? 2020 [employer]. documented in this encounter Plan of Treatment Not on file documented as of this encounter Visit Diagnoses Not on filedocumented in this encounter
--- OUTSIDE RECORDS SUMMARY | 2025-04-25 00:08 | XMS_ITS | Encounter Summary ---
Author Organization [employer] Address [address] [place] [address] Care Team Providers Care Funeral Pre Arrangement Specialist Name Role Phone Unavailable Primary Care Provider Unavailabl e Encounter Details Date Type Department Care Team (Late st Contact Info) Description 03/20/2022 Transcribed Document [facility] [place] [facility] [place] [address] ProviderEvangelista MD [address] [place] [address] Social History Tobacco Use Types Packs/Day Years Used Date Smoking Tobacco: Never Assessed Comments Unknown Sex and Gender Information Value Date Recorded Sex Assigned at Not on file Legal Sex Female 3:10 PM CDT Gender Identity Not on file Sexual Orientation Not on file documented as of this encounter Miscellaneous Notes * Cerner Conversion Note - Evangelista ProviderMD - 03/20/2022 10:06 AM CDT DATE OF PROCEDURE: 03/20/2022 Patient : 1970 SURGEON: Sam Hamlin DPM PENS AND PENCILS DIPPER: None. PREOPERATIVE DIAGNOSES: 1. Painful retained internal fixation, right foot. 2. Right foot pain. POSTOPERATIVE DIAGNOSES: 1. Painful retained internal fixation, right foot. 2. Right foot pain. PROCEDURES PERFORMED: 1. Removal of hardware, right foot. 2. Peripheral nerve block, right foot. ANESTHESIA: MAC with local. HEMOSTASIS: Pneumatic ankle tourniquet at 250 mmHg. ESTIMATED BLOOD LOSS: Less than 10 mL. MATERIALS: DBM bone putty. INJECTABLES: 20 mL of 1:1 ratio of 0.5% Marcaine plain and 1% lidocaine plain. SPECIMENS: One plate and 8 screws removed from the right foot. COMPLICATIONS: None. CONDITION: Stable. DESCRIPTION OF PROCEDURE: The patient met in preoperative setting. All questions answered. Consent was signed. The patient elected to proceed with procedure. The patient was given IV antibiotics prophylactically prior to procedure. The patient was brought to the operating room and placed on the table in the supine position under mild sedation. The foot was then scrubbed, prepped, and draped in the usual aseptic fashion. Attention was directed to the right foot where palpable hardware was noted on the medial aspect of the foot. Preoperative block consisting of 20 mL of 1:1 ratio of 0.5% Marcaine plain and 1% lidocaine plain was administered to the surgical site. Incision was then made directly over palpable prominent hardware directly down the hardware. Sharp and blunt dissection was used to retract all neurovascular structures. Using sharp and blunt dissection, hardware was dissected and screws were identified. Screws were then backed out one by one, and plate was then removed in total. All screw holes were backfilled with DBM bone putty. Prior to putty application, surgical site was irrigated with sterile saline. Solid bone was noted. No motion or displacement was noted after removal of hardware. Subcutaneous and deep fascial layers were closed with 3-0 Vicryl and the skin with 2-0 Prolene. Postoperative dressing consisting of Betadine, Adaptic, 4x4, ABD, Kerlix, Cristian was then applied. The patient tolerated the procedure well and will be returned to PACU for a brief period of postoperative monitoring before being discharged to home. The patient has all scheduled followup instructions and will be followed in the office in the next 48-72 hours. /[id number] JESUS Cassidy/RILEY / / MODL /[id number] documented in this encounter Plan of Treatment Not on file documented as of this encounter Visit Diagnoses Not on filedocumented in this encounter
--- OUTSIDE RECORDS SUMMARY | 2025-04-25 00:08 | XMS_ITS | Referral Summary ---
Author Organization [employer] Address [address] [place] [address] Care Team Providers Care International Marketing Manager Name Role Phone Unavailable Primary Care Provider [...]
--- OUTSIDE RECORDS SUMMARY | 2025-04-25 00:08 | XMS_ITS | Encounter Summary ---
Author Organization [facility] Address [address] [place] [id number] Care Team Providers Care Greenhouse Specialist Name Role Phone Unavailable Primary Care Provider Unavailabl e Encounter Details Date Type Department Care Team (Late st Contact Info) Description 03/20/2022 Transcribed Document [facility] [place] [facility] [place] [address] ProviderEvangelista MD [address] [place] [address] Social History Tobacco Use Types [...] Evangelista ProviderMD - 03/20/2022 9:01 AM CDT [facility] Main OR IntraOp Summary Primary Physician: ANGELA GREEN DPM-POD Finalized Date/Time: 03/21/22 10:42:50 Pt. Name: BEE COLON/Sex: 1970 Female Med Rec #: [id number] Physician: ANGELA GREEN DPM-POD Financial #: [id number] Pt. Type: O Room/Bed: /6 Admit/Disch: 03/20/22 06:30:00 - 03/20/22 10:56:00 Institution: [facility] IntraOp Case Attendance Entry 1 Entry 2 Entry 3 Case Attendee ANGELA GREEN DPM-POD DODD, ANDREW, Non Emp Abilio, Rakan, AUTOMATIC DOOR MECHANIC Student Nurse Advertising Sales Manager Role Performed Surgeon/Proceduralist, Student AUTOMATIC DOOR MECHANIC/Nurse Advertising Sales Manager First Time In 03/20/22 08:45:00 03/20/22 08:45:00 03/20/22 08:45:00 Time Out 03/20/22 09:54:00 03/20/22 09:54:00 03/20/22 09:54:00 Procedure Hardware Removal Leg Or Hardware Removal Leg Or Hardware Removal Leg Or Foot Foot Foot Other Attendee DELMA CARVER Superficial Wound Closed By: Last Modified By: Milly Powers RN Versteeg, Beckie, RN Versteeg, Beckie, RN 03/20/22 09:54:47 03/20/22 09:54:47 03/20/22 09:54:47 Entry 4 Entry 5 Entry 6 Case Attendee JENN ENRIQUE MD-ZHANNA CAMPUZANO, Milly Powers, GRETA Role Performed Anesthesiologist of Scrub, First Electron Beam Operator, First Record Time In 03/20/22 08:45:00 03/20/22 08:45:00 03/20/22 08:45:00 Time Out 03/20/22 09:54:00 03/20/22 09:54:00 03/20/22 09:54:00 Procedure Hardware Removal Leg Or Hardware Removal Leg Or Hardware Removal Leg Or Foot Foot Foot Other Attendee Superficial Wound Closed By: Last Modified By: Milly Powers RN Versteeg, Beckie, RN Versteeg, Beckie, RN 03/20/22 09:54:47 03/20/22 09:54:47 03/20/22 09:54:47 Entry 7 Entry 8 Case Attendee OTHER, ATTENDEE #1 Iza Smiley, GRETA Role Performed Scrub, First Scrub, First Time In 03/20/22 08:45:00 03/20/22 09:48:00 Time Out 03/20/22 09:54:00 03/20/22 09:54:00 Procedure Hardware Removal Leg Or Hardware Removal Leg Or Foot Foot Other Attendee ANGELA CHERELLE Superficial Wound Closed By: Last Modified By: Milly Powers RN Versteeg, Beckie, RN 03/20/22 09:54:47 03/20/22 09:54:47 [facility] IntraOp Case Attendance Audit 03/20/22 09:54:47 Gang Boss: [id number] Modifier: [id number] 1 <+> Time Out 1 <*> Procedure Hardware Removal Leg Or Foot 2 <+> Time Out 2 <*> Procedure Hardware Removal Leg Or Foot 3 <+> Time Out 3 <*> Procedure Hardware Removal Leg Or Foot 4 <+> Time Out 4 <*> Procedure Hardware Removal Leg Or Foot 5 <+> Time Out 5 <*> Procedure Hardware Removal Leg Or Foot 6 <+> Time Out 6 <*> Procedure Hardware Removal Leg Or Foot 7 <+> Time Out 7 <*> Procedure Hardware Removal Leg Or Foot <+> 8 Case Attendee <+> 8 Role Performed <+> 8 Time In <+> 8 Time Out <+> 8 Procedure 03/20/22 09:14:11 Gang Boss: [id number] Modifier: [id number] <+> 1 Procedure 2 <+> Time In 2 <*> Procedure Hardware Removal Leg Or Foot 3 <+> Time In 3 <*> Procedure Hardware Removal Leg Or Foot 4 <+> Time In 4 <*> Procedure Hardware Removal Leg Or Foot 5 <+> Time In 5 <*> Procedure Hardware Removal Leg Or Foot 6 <+> Time In 6 <*> Procedure Hardware Removal Leg Or Foot 7 <+> Time In 7 <*> Procedure Hardware Removal Leg Or Foot [facility] IntraOp Case Times Entry 1 Patient In Room Time 03/20/22 08:45:00 Out Room Time 03/20/22 09:54:00 Anesthesia Start Time 03/20/22 08:45:00 Stop Time 03/20/22 09:54:00 Surgery / Procedure Times Start Time 03/20/22 09:01:00 Stop Time 03/20/22 09:50:00 Last Modified By: Milly Powers RN 03/20/22 09:54:23 [facility] IntraOp Case Times Audit 03/20/22 09:54:23 Gang Boss: [id number] Modifier: [id number] <+> 1 Out Room Time <+> 1 Stop Time <+> 1 Stop Time [facility] IntraOp Cautery Entry 1 ESU Identification Cautery Type Monopolar ESU ID Number [id number] ID Type Hospital Number Cautery Settings Cut Setting 30 Coag Setting 30 ESU Grounding Pad Ground Pad Type Adult Grounding Pad Site Right thigh Grounding Pad Milly Powers RN Applied By Grounding Pad Site Warm, dry and intact Skin Condition Before Cautery Grounding Pad Site Unchanged Skin Condition After Cautery Last Modified By: Milly Powers RN 03/20/22 09:05:57 [facility] IntraOp Communication Entry 1 Communication To Family/Significant other Comment ATTAMPTED NO ANSWER Communication By Milly Powers RN Date and Time 03/20/22 09:06:00 Last Modified By: Milly Powers RN 03/20/22 09:07:11 [facility] IntraOp Counts Verification Entry 1 Procedure Hardware Removal Leg Or Foot Count Info Count Type Sponge, Sharps Counts Verification Baseline/pre-procedure Sequence Count Results Not Applicable Counts Performed By Count Performed By ZHANNA LU ST (Scrub) Count Performed By Milly Powers RN (RN) Last Modified By: Milly Powers RN 03/20/22 09:07:31 [facility] IntraOp Counts Final Entry 1 Procedure Hardware Removal Leg Or Foot Final Count Info Count Type Sponge, Sharps Counts Verification Skin Closure/end of Sequence procedure Count Results Correct, surgeon notified Counts Performed By Count Performed By ZHANNA LU ST (Scrub) Count Performed By Milly Powers RN (RN) Last Modified By: Milly Powers RN 03/20/22 09:36:01 [facility] IntraOp Counts Final Audit 03/20/22 09:36:01 Gang Boss: [id number] Modifier: [id number] 1 <*> Procedure Hardware Removal Leg Or Foot 1 <+> Count Performed By (Scrub) 1 <+> Count Performed By (RN) [facility] IntraOp Cultures and Spec Summary Entry 1 Cultrures and Specimens Specimen Ordered: Yes Test(s) Routine/Path-Lab Requested/Final Disposition Last Modified By: Milly Powers RN 03/20/22 09:07:47 [facility] IntraOp Departure from OR Entry 1 Integumentary Assessment Integumentary WDL Assessment WDL Transfer/Handoff Transfer to Ambulatory unit, Phase II Handoff Method Phone call, Online nursing summary Post-op Transport Stretcher/Nanyney Via Patient Transport Iza Smiley RN Accompanied by Last Modified By: Mlily Powers RN 03/20/22 09:55:30 [facility] IntraOp Departure from OR Audit 03/20/22 09:55:30 Gang Boss: [id number] Modifier: [id number] <+> 1 Transfer to 03/20/22 09:54:59 Gang Boss: [id number] Modifier: [id number] 1 <*> Patient Transport Accompanied by Milly Powers RN [facility] IntraOp Dressing and Packing Entry 1 Type Dressing Location OPSITE Wound Dressing Item 4x4's, Adaptic, Kerlix/Feng, Cristian, ABD dressing pad Applied By ANGELA GREEN DPM-POD Other Comments BETADINE SOLUTION ON STERILE FIELD Last Modified By: Milly Powers RN 03/20/22 09:08:34 [facility] IntraOp Explant Log Entry 1 Explant Log Description PLATE AND 8 SCREWS Explant Site RIGHT FOOT Removal Reason No longer needed Disposition Sent to pathology Last Modified By: Milly Powers RN 03/20/22 09:40:31 [facility] IntraOp Explant Log Audit 03/20/22 09:40:31 Gang Boss: [id number] Modifier: [id number] 1 <*> Description PLATE AND SCREWS 03/20/22 09:32:54 Gang Boss: [id number] Modifier: [id number] 1 <*> Description PLATE AND [facility] IntraOp Fire Risk Assessment Entry 1 Fire Info Surgical Site or 0- No Incision Above the Xyphoid Open O2 Source 1- Yes (Mask or Cannula) Available Ignition 1- Yes (ESU, Laser, Light Source) Fire Risk 2 Assessment Score Fire Score Fire Risk Yes Assessment Complete Fire Risk Milly Powers RN Assessment Verified By Fire Risk 03/20/22 09:00:00 Assessment Verified Date/Time Fire Risk Standard Fire Yes Safety Precautions Followed Last Modified By: Milly Powers RN 03/20/22 09:08:55 [facility] IntraOp General Case Scientific Software Engineer 1 Case Information OR OR 04 [facility] Case Level 1 Room Verified Yes Wound Class 1 - Clean Specialty Podiatry Anesthesia Type MAC ASA Class 3 Diagnosis Preop Diagnosis RETAINED HARDWARE RIGHT FOOT Postop Same As Preop No Postop Diagnosis SEE POST OP NOTE Wound Class Definitions Last Modified By: Milly Powers RN 03/20/22 09:11:08 [facility] IntraOp Implant Log Entry 1 Type Tissue Implant (Biologic) Implant Log Implant ALLOGRFT TENSIX 5CC DBM Identification [id number] Description Implant Quantity 1 Implant Site RIGHT FOOT Implant [id number] Identification Model Number Implant [id number] Identification Lot Number Implant [facility]:Faustino Mark Med Tech Photo Lab Specialist Name: Implant [id number] Identification Catalog Number Implant Has an Yes Expiration Date Implant Expiration 07/16/23 Date Tissue Implant Graft Prep Per N/A Photo Lab Specialist Instructions: Last Modified By: Milly Powers RN 03/20/22 09:26:43 [facility] IntraOp Intraoperative Assessment Entry 1 Handoff Method Bedside/Face to face, Online nursing summary Valid History / Yes Physical in Chart Preoperative Yes Checklist Reviewed/Evaluated Allergies Reviewed Yes Patient is Latex No Sensitive Level of WDL Consciousness (WDL = Alert, Oriented to Person, Place, and Time) Skin Assessment Yes Verified Present Upon IVs Arrival to OR Last Modified By: Milly Powers RN 03/20/22 09:11:25 [facility] IntraOp Intraoperative Equipment Entry 1 Type Equipment Equipment Equipment Waste Management System ID Number [id number] Setting ON Intraop Monitoring Antiembolic Devices Scopes Photo/Video Documentation Last Modified By: Milly Powers RN 03/20/22 09:11:47 [facility] IntraOp Medication Admin Entry 1 Entry 2 Medication/Irrigant Bupivicaine/Marcaine 1% LIDOCAINE/2ML 0.5% 30ml - [id number] PRESERVATIVE FREE - [id number] Combo Med List 1 - Combo Med 2 - Combo Med Time Administered 03/20/22 09:01:00 03/20/22 09:01:00 Route of Administration Dose Dose 10 10 Unit of Measure ml ml Volume Administered By ANGELA GREEN DPM-POD ANGELA GREEN DPM-LOIS Procedure Irrigation Irrigant Volume In Irrigant Volume Out Last Modified By: Milly Powers RN Versteeg, Beckie, RN 03/20/22 09:13:36 03/20/22 09:13:36 [facility] IntraOp Patient Positioning Entry 1 Procedure Hardware Removal Leg Or Foot Body Position Supine Left Arm Position Tucked and padded at side Right Arm Position Tucked and padded at side Left Leg Position Uncrossed, parallel Right Leg Position Held on field Feet Uncrossed Yes Pressure Points Yes Checked Positioning Devices Pad, Arm, Pad, Elbow, Safety Strap, Thighs, Wedge Device Position PATIENT LEFT ON STRETCHER FOR PROCEDURE WITH FOOT ELEVATED ON PODIATRY WEDGE. Positioned By Milly Powers RN, Rakan Knox CRNA, ANGELA GREEN DPM-POD, ALLIE MENDES, Non Emp Student Nurse Advertising Sales Manager Position Verified Positioning Yes Verified by Anesthesia Positioning Yes Verified by Surgeon Last Modified By: Milly Powers RN 03/20/22 09:14:08 [facility] IntraOp Sign In Entry 1 Patient, Site, Yes Procedure Identified Surgical Consent Yes Confirmed Relevant Surgical Yes Documents Available Surgical Site Yes Marked by person performing procedure Anesthesia Machine Yes Check Completed Medication Checks Yes Completed Allergies Yes Airway Difficult Yes Airway/Aspiration Risk Difficult Yes Airway/Aspiration Intervention Equipment Available Blood Loss Risk Yes Blood Loss Yes Intervention Equipment Prepared and Ready Blood Identifiers Not applicable Verified Per Policy Hypothermia Risk Yes Warming Measures Yes Taken Last Modified By: Milly Powers RN 03/20/22 09:14:22 [facility] IntraOp Sign Out Entry 1 RN Confirmation Surgical Yes Procedure(s) Identified Instrument, Sponge Yes and Sharps Counts Correct/Documented Equipment Problems N/A Documented Specimen Labeled Yes Correctly Urinary Catheter N/A Documented in IView Wound Yes classification reviewed, verified and updated post case in both the General Case Data and Procedure segments [place] Patient Yes Recovery Concerns Reviewed with Anesthesia Provider, Surgeon and RN [place] Patient Yes Management Concerns Reviewed with Anesthesia Provider, Surgeon and RN Safety Checklist Yes Elements Complete? RN Sign Out Milly Powers RN Signature RN Sign Out 03/20/22 09:54:00 Signature Date/Time Plan of Care Outcome - [...] of Care Outcome - Xray/Images OUTCOME STATEMENT: N/A Absence of observable signs or symptoms of radiation injury Plan of Care Outcome - Counts OUTCOME STATEMENT: Goal met Absence of signs and symptoms of injury related to extraneous objects Last Modified By: Milly Powers RN 03/20/22 09:55:07 [facility] IntraOp Sign Out Audit 03/20/22 09:55:07 Gang Boss: [id number] Modifier: [id number] <+> 1 RN Sign Out Signature Date/Time [facility] IntraOp Skin Prep Entry 1 Procedure Hardware Removal Leg Or Foot Prescribed Yes Pre-Surgical Prep Completed Prep Area RIGHT FOOT Intraop Prep Integumentary WDL Assessment WDL Prep Agents Betadine scrub, Betadine solution Prep by Milly Powers RN Hair Removal Last Modified By: Milly Powers RN 03/20/22 09:14:58 [facility] IntraOp Surgical Procedures Entry 1 Procedure Hardware Removal Leg Or Foot Additional REMOVAL OF HARDWARE ON Procedure RIGHT FOOT Description Primary Procedure Yes Primary Surgeon ANGELA GREEN DPM-POD Start 03/20/22 09:01:00 Stop 03/20/22 09:50:00 Anesthesia Type MAC Specialty Podiatry Wound Class 1 - Clean Last Modified By: Milly Powers RN 03/20/22 09:55:09 [facility] IntraOp Surgical Procedures Audit 03/20/22 09:55:09 Gang Boss: [id number] Modifier: [id number] <+> 1 Stop 03/20/22 09:15:18 Gang Boss: [id number] Modifier: [id number] 1 <*> Procedure Hardware Removal Leg Or Foot 1 <+> Wound Class 1 <*> Additional Procedure Description (REMOVAL OF HARDWARE ON RIGHT FOOT) [facility] IntraOP Time Out Entry 1 Procedure to be Hardware Removal Leg Or Performed Foot Time Out Time Out Pause Time 03/20/22 09:00:00 All activity Yes suspended (unless life threatening emergency) Team Verbally Correct patient Confirms Information identity, Correct side and site are marked, Consent form is present and accurate, Agreement on the procedure to be done, Correct patient position, Relevant images/results properly labeled/appropriately displayed, Confirm antibiotics have been administered, Confirm the skin prep has dried, Confirm prosthesis/implant/devic e is present, Performed in location of procedure after prepped/draped Antibiotic Yes Prophylaxis Administered Or In Progress Within the Last 60 Minutes Beta Dmitriy N/A Administered Venous N/A Thromboembolism Prophylaxis Required Anticipated Critical Events Surgeon None expected Anesthesia Provider None expected Nursing Assures Sterility of instruments Last Modified By: Milly Powers RN 03/20/22 09:18:23 [facility] IntraOP Time Out Audit 03/20/22 09:18:23 Gang Boss: [id number] Modifier: [id number] 1 <+> Venous Thromboembolism Prophylaxis Required 1 <*> Procedure to be Performed Hardware Removal Leg Or Foot 03/20/22 09:16:55 Gang Boss: [id number] Modifier: [id number] <+> 1 Beta Dmitriy Administered <+> 1 All activity suspended (unless life threatening emergency) <+> 1 Antibiotic Prophylaxis Administered Or In Progress Within the Last 60 Minutes <+> 1 Surgeon <+> 1 Anesthesia Provider <+> 1 Nursing Assures <+> 1 Time Out Pause Time <+> 1 Procedure to be Performed <+> 1 Team Verbally Confirms Information 03/20/22 09:16:22 Gang Boss: [id number] Modifier: [id number] Entry 1 was deleted. Higher numbered entries shifted one position to fill the gap. <-> 1 All activity suspended (unless life Yes threatening emergency) <-> 1 Time Out Pause Time 03/20/22 09:00:00 <-> 1 Procedure to be Performed Hardware Removal Leg Or Foot <-> 1 Team Verbally Confirms Information Correct patient identity, Correct side and site are marked, Consent form is present and accurate, Agreement on the procedure to be done, Correct patient position, Relevant images/results properly labeled/appropriately displayed, Confirm antibiotics have been administered, Confirm the skin prep has dried, Confirm prosthesis/implant/device is present, Performed in location of procedure after prepped/draped [facility] IntraOp Tourniquet Entry 1 Type Pneumatic Serial/Unit Number [id number] Setting 250 mmHg Pheumatic Yes Tourniquet Checked Per Protocol Size 18 inches Placement Ankle, right Skin Protection - Yes Padded Under Cuff Applied By ANGELA GREEN DPM-POD Removed By ANGELA GREEN DPM-POD Times Start Time 03/20/22 09:01:00 Stop Time 03/20/22 09:48:00 Total Time 47 calculated manually (Mins) Last Modified By: Milly Powers RN 03/20/22 09:49:29 [facility] IntraOp Tourniquet Audit 03/20/22 09:49:29 Gang Boss: [id number] Modifier: [id number] <+> 1 Total Time calculated manually (Mins) <+> 1 Stop Time Case Comments <None> Finalized By: ROBINSON WARREN Document Signatures Signed By: Milly Powers RN 03/20/22 09:55 ROBINSON WARREN 03/21/22 10:42 Unfinalized History Date/Time Username Reason for Unfinalizing Freetext Reason for Unfinalizing 03/21/22 10:41 [id number] Correct Billing Electronically signed by Atul [facility] Conversion Occupational Therapy Assistant Cerner at 03/05/2023 7:05 PM CDT documented in this encounter Plan of Treatment Not on file documented as of this encounter Visit Diagnoses Not on filedocumented in this encounter
--- OUTSIDE RECORDS SUMMARY | 2025-04-25 00:08 | XMS_ITS | Encounter Summary ---
Author Organization [employer] Address [address] [place] [address] Care Team Providers Care Cardiology Fellow Name Role Phone Unavailable Primary Care Provider Unavailabl e Encounter Details Date Type Department Care Team (Late st Contact Info) Description 03/19/2022 Transcribed Document [facility] [place] Medicine [address] [place] [address] ProviderEvangelista MD [address] [place] [address] Social History Tobacco Use Types Packs/Day Years Used Date Smoking Tobacco: Never Assessed Comments Unknown Sex and Gender Information Value Date Recorded Sex Assigned at Not on file Legal Sex Female 3:10 PM CDT Gender Identity Not on file Sexual Orientation Not on file documented as of this encounter Miscellaneous Notes * Cerner Conversion Note - Evangelista ProviderMD - 03/19/2022 12:20 PM CDT Patient: BEE SHANE Age: 51 years Sex: Female : 1970 Associated Diagnoses: None Author: COMERBEE APRN Chief Complaint pleasant 51 yo female here for R foot removal of hardware with Dr. Hamlin. pt has had R foot pain for 3 months, failed conservative measures. Review of Systems Constitutional: morbid obesity. Eye: glasses. Ear/Nose/Mouth/Throat: Negative. Respiratory: Negative. Cardiovascular: Negative. Gastrointestinal: Negative. Genitourinary: Negative. Hematology/Lymphatics: Negative. Endocrine: Negative. Immunologic: Negative. Musculoskeletal: R foot painful hardware. Integumentary: small opening bottom of R foot. Neurologic: Negative. Psychiatric: Negative. All other systems [...] Flushed Current medications: (Selected) Documented Medications Documented Cymbalta 60 mg oral delayed release capsule: 1 Cap, Oral, BID, 0 Refill(s) Dexcom G6 Glucose Sensor: See Special Instructions, Miscellaneous, Daily, USE DIRECTED, 1 Each, 0 Refill(s) Farxiga 10 mg oral tablet: 1 Tab, Oral, Daily, 0 Refill(s) HumaLOG 100 units/mL injectable solution: SubCutaneous, TIDAC, sliding scale per BG : usually at lunch and supper - doses 20-22 units, 10 mL, 0 Refill(s) Lantus 100 units/mL subcutaneous solution: 80 Units, SubCutaneous, At Bedtime, 0 Refill(s) Lyrica [...] oral tablet: 1 Tab, Oral, Q6H, PRN: as needed for pain, 0 Refill(s) aspirin 81 mg oral tablet: 81 mg, Oral, Daily, 0 Refill(s) isosorbide mononitrate 60 mg oral [...] 1 Tab, Oral, At Bedtime, 0 Refill(s) , Home Medications (18) Active acetaminophen-hydrocodone 325 mg-10 mg oral tablet 1 Tab, PRN, Oral, Q6H aspirin 81 mg oral tablet 81 mg, Oral, Daily Cymbalta 60 mg oral delayed release capsule 60 mg = 1 Cap, Oral, BID Dexcom G6 Glucose Sensor See Special Instructions, Miscellaneous, Daily Farxiga 10 mg oral tablet 10 mg = 1 Tab, Oral, Daily HumaLOG 100 units/mL injectable solution , SubCutaneous, TIDAC isosorbide mononitrate 60 mg oral tablet, extended release 60 mg = 1 Tab, Oral, At Bedtime Lantus 100 units/mL subcutaneous solution 80 Units, SubCutaneous, At Bedtime Lyrica 200 mg [...] = 1 Tab, Oral, At Bedtime , No qualifying data available Problem list: All Problems 6-Stented coronary artery / SNOMED CT 0432688985 / Confirmed Spinal cord stimulator status rt hip pt turned off this am / SNOMED CT 632900695 / Confirmed Peripheral vascular disease / SNOMED CT 7242368883 / Confirmed Hypertension / SNOMED CT 07560439 / Confirmed History of obstructive sleep apnea / IMO 03361437 / Confirmed Foot pain, right / SNOMED CT 832703971 / Confirmed Fibromyalgia / SNOMED CT 58535898 / Confirmed DM - wears Dexcom / SNOMED CT 083358267 / Confirmed Diabetic neuropathy / SNOMED CT 689513036 / Confirmed Coronary artery disease / SNOMED CT 2683651347 / Confirmed Chronic back pain / SNOMED CT 926120552 / Confirmed At risk for sleep apnea / IMO 08955444 / Confirmed Angina / SNOMED CT 059989116 / Confirmed Non-ST elevation FL (NSTEMI) x 2 / SNOMED CT 7739205339 / Confirmed Canceled: Myocardial infarction / SNOMED CT 74148803 Canceled: Cellulitis of foot, left / SNOMED CT 100323090 s/p left foot transmetatarsal amp Canceled: Unsteady gait-uses cane / SNOMED CT 27841675 , Active Problems (14) Non-ST elevation FL (NSTEMI) x 2 6-Stented coronary artery Angina At risk for sleep apnea Chronic back pain Coronary artery disease Diabetic neuropathy DM - wears Dexcom Fibromyalgia Foot pain, right History of obstructive sleep apnea Hypertension Peripheral vascular disease Spinal cord stimulator status rt hip pt turned off this am Histories Past 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: No active or resolved past medical history items have been selected or recorded. Family History: No family history items have been selected or recorded. Procedure history: Hysterectomy (999563743). right foot pinning. lap with laser x3. rt knee scope x2. left knee scope. right hand CMC x4. left hand CMC x1. all toes amputated from left foot. left shoulder scope. right shoulder scope. Cholecystectomy (40346351). Appendectomy (413062971). spinal cord stimulator. Cardiac catheterization (90296735). Comments: 03/19/2022 12:20 EDT - Ale Gresham, GRETA-PATIENT CARE BEDSIDE NON-EXEMPT cardiac stents x6 Physical Examination VS/Measurements No qualifying data available General: Alert and oriented, No acute distress, morbid obesity. Eye: Extraocular movements are intact, glasses. HENT: Normocephalic, Normal hearing. Respiratory: Lungs are clear to auscultation, Respirations are non-labored. Cardiovascular: Normal rate, Regular rhythm, No murmur, No gallop, No edema. Musculoskeletal: partial amputation L foot, unsteady gait, painful ROM R foot, SCS R hip area. Integumentary: Warm, Dry, small open area bottom of R foot POA. Neurologic: Alert, Oriented. Psychiatric: Cooperative, Appropriate mood & affect. Review / Management Results review: Labs (Last four charted values) WBC H 12.4 (MARCH 19) HB 12.8 (MARCH 19) HCT 41.9 (MARCH 19) Plt 285 (MARCH 19) Na 137 (MARCH 19) K 4.3 (MARCH 19) Cl 105 (MARCH 19) CO2 29 (MARCH 19) BUN H 26 (MARCH 19) Cr H 1.30 (MARCH 19) Glu R L 64 (MARCH 19) Ca 9.3 (MARCH 19) AST 12 (MARCH 19) ALT 19 (MARCH 19) ALK P 89 (MARCH 19) T Bili 0.4 (MARCH 19) PTN 7.3 (MARCH 19) ALB L 3.3 (MARCH 19) . Impression and Plan Diagnosis 1. painful hardware R foot 2. CAD 3. angina 4. ANA risk 5. back pain 6. DM 7. neuropathy 8. fibromyalgia 9. HTN 10. PVD 11. unsteady gait 12. morbid obesity. Condition: Stable. pt to proceed with surgery, DC home same day. Electronically signed by Dave Pollard Conversion Software Applications Designer Linusner at 03/05/2023 6:50 PM CDT documented in this encounter Plan of Treatment Not on file documented as of this encounter Visit Diagnoses Not on filedocumented in this encounter
--- OUTSIDE RECORDS SUMMARY | 2025-04-25 00:08 | XMS_ITS | Encounter Summary ---
Author Organization [employer] Address [address] [place] [address] Care Team Providers Care Landscaping Manager Name Role Phone Unavailable Primary Care Provider Unavailabl e Encounter Details Date Type Department Care Team (Late st Contact Info) Description 03/20/2022 Transcribed Document [facility] [place] Family Medicine [address] [place] [address] ProviderEvangelista MD [address] [place] [address] Social History Tobacco Use Types [...] Evangelista ProviderMD - 03/20/2022 9:01 AM CDT [facility] Main OR Preop Summary Primary Physician: ANGELA GREEN DPM-POD Finalized Date/Time: 03/20/22 11:59:52 Pt. Name: BEE COLON/Sex: 1970 Female Med Rec #: [id number] Physician: ANGELA GREEN DPM-POD Financial #: [id number] Pt. Type: O Room/Bed: /6 Admit/Disch: 03/20/22 06:30:00 - 03/20/22 10:56:00 Institution: [facility] PreOp Case Times Entry 1 In Preop 03/20/22 06:25:00 Ready for Holding n/a Room Patient Ready for 03/20/22 07:40:00 Surgery Patient Out of Preop 03/20/22 08:44:00 Patient Out of n/a Holding Room Last Modified By: Nik Stewart RN-PATIENT CARE BEDSIDE NON-EXEMPT 03/20/22 11:59:49 [facility] PreOp Case Times Audit 03/20/22 11:59:49 Protection Mgr: [id number] Modifier: [id number] <+> 1 Patient Out of Preop 03/20/22 08:03:25 Protection Mgr: [id number] Modifier: [id number] 1 <*> Patient Ready for Surgery 03/20/22 08:03:00 03/20/22 08:03:19 Protection Mgr: [id number] Modifier: [id number] <+> 1 Patient Ready for Surgery Finalized By: Nik Stewart RN-PATIENT CARE BEDSIDE NON-EXEMPT Document Signatures Signed By: Nik Stewart RN-PATIENT CARE BEDSIDE NON-EXEMPT 03/20/22 11:59 Electronically signed by At[facility] Conversion Skiver Counter Cerner at 03/05/2023 6:50 PM CDT documented in this encounter Plan of Treatment Not on file documented as of this encounter Visit Diagnoses Not on filedocumented in this encounter
--- OUTSIDE RECORDS SUMMARY | 2025-04-25 00:08 | XMS_ITS | Encounter Summary ---
Author Organization [employer] Address [address] [place] [address] Care Team Providers Care Automated Equipment Engineer Technician Name Role Phone Unavailable Primary Care Provider Unavailabl e Encounter Details Date Type Department Care Team (Late st Contact Info) Description 07/11/2021 Transcribed Document [facility] [place] [facility] [place] [address] ProviderEvangelista MD [address] [place] [address] Social History Tobacco Use Types [...] Evangelista ProviderMD - 07/11/2021 11:[address] [facility] Main OR Preop Summary Primary Physician: MANI THOMAS MD-SUR Finalized Date/Time: 07/11/21 13:05:00 Pt. Name: BEE COLON/Sex: 1970 Female Med Rec #: [id number] Physician: MANI THOMAS MD-SUR Financial #: [id number] Pt. Type: O Room/Bed: Admit/Disch: 07/11/21 08:06:00 - Institution: [facility] PreOp Case Times Entry 1 In Preop 07/11/21 08:23:00 Ready for Holding n/a Room Patient Ready for 07/11/21 09:30:00 Surgery Patient Out of Preop 07/11/21 10:46:00 Patient Out of n/a Holding Room Last Modified By: DEMETRICE WANG RN 07/11/21 13:04:37 Finalized By: DEMETRICE WANG RN Document Signatures Signed By: DEMETRICE WANG RN 07/11/21 13:05 documented in this encounter Plan of Treatment Not on file documented as of this encounter Visit Diagnoses Not on filedocumented in this encounter
--- OUTSIDE RECORDS SUMMARY | 2025-04-25 00:08 | XMS_ITS | Encounter Summary ---
Author Organization [employer] Address [address] [place] [address] Care Team Providers Care Can Intake Worker Name Role Phone Unavailable Primary Care Provider Unavailabl e Encounter Details Date Type Department Care Team (Late st Contact Info) Description 08/12/2019 Transcribed Document [facility] [place] [facility] [address] ProviderEvangelista MD [address] [place] [address] Social History Tobacco Use Types Packs/Day Years Used Date Smoking Tobacco: Never Assessed Comments Unknown Sex and Gender Information Value Date Recorded Sex Assigned at Not on file Legal Sex Female 3:10 PM CDT Gender Identity Not on file Sexual Orientation Not on file documented as of this encounter Miscellaneous Notes * Cerner Conversion Note - Evangelista Carbone MD - 08/12/2019 12:24 PM CDT Patient: BEE COLON Age: 49 Years Sex: Female : 1970 DATE OF SERVICE: 08/10/2019. CHIEF COMPLAINT: Lower back and bilateral leg pain and numbness. HISTORY OF PRESENT ILLNESS: The patient is a 49 year old female who returns to the clinic for a follow-up on her lower back pain that radiates to her bilateral legs to her feel with numbness and tingling at times. She rates her pain as 6/10 on the pain scale. Quality is numbness, tingling, sharp. Her pain is constant. She has had her pain for 10-15 years. She has increased pain with prolonged walking and sitting, decreased pain with rest and medication. She gets 75% relief with her current medication. Fall risk information sheet has been provided. ALLERGIES: MORPHINE, CODEINE, PERCOCET, AMOXICILLIN. SOCIAL HISTORY: Marital status: . Current work status: She reports she is disabled. Current tobacco use: Denied. Illicit drug use: Denied. Alcohol use: Denied. Caffeine use: Denied. PAST MEDICAL HISTORY: Positive for arthritis, diabetes, heart attack, high blood pressure, high cholesterol. PAST SURGICAL HISTORY: Positive for appendix, breast, gallbladder, heart, hysterectomy, knee, ovaries, shoulder, spinal surgery to the back. PAST FAMILY HISTORY: Positive for melanoma cancer, colon cancer. REVIEW OF SYSTEMS: The patient's Ten System Review of Systems was performed: General: Fatigue. Weight gain. Respiratory: Negative. Neurological: Numbness and tingling. Gastrointestinal: Negative. Musculoskeletal: Joint pain and stiffness, back pain, muscle weakness, muscle aches and pains. Cardiovascular: Leg pain with walking. Psychiatric: Anxiety. HEENT: Negative. Endocrine: Negative. Hematology: Negative. Skin: Negative. Genitourinary: Negative. All other systems reviewed were found to be negative. VITAL SIGNS: Vital signs are reviewed. B/P 135/82, heart rate 81, respiratory rate 16, O2 SATs 94% on room air, height 5???6?? , weight 280 lb. PHYSICAL EXAMINATION: Constitutional: Freely conversant, no acute distress. General: The patient is alert and oriented x3. Normal mood and affect. The patient scored a 9 on the depression questionnaire. She is treated. Her left lower extremity is in a walking boot. Her gait is antalgic. She uses a cane. Established patient exam is deferred. DIAGNOSTIC STUDIES: Not present. MEDICAL DECISION MAKING: Stable. DEVYN is reviewed and is appropriate. Patient's medications reviewed. See list in patient's file. ASSESSMENT: Stable. 1. Chronic pain with lumbar degenerative disc disease. 2. Lumbar radiculitis, status post spinal cord stimulator implantation with good coverage. 3. Xtsgwpo-Fqmyu-Uyoto syndrome right foot. PROCEDURE/TEST ORDERED: Not present. PLAN: Will continue Ms. Colon on her current medication of Romeo 10 mg. q.6 hours, Tramadol 50 mg. q.6 hours, Trazodone 100 mg. 1/2 to 1 p.o. q.h.s., Lyrica 225 mg. q.12 hours, Cymbalta 60 mg. q.12 hours. She denies any side effects of her medication. The patient is in agreement with the above plan. We will see this patient back in follow-up in two months. Anahy Fraser M.D. GEORGI:cherie documented in this encounter Plan of Treatment Not on file documented as of this encounter Visit Diagnoses Not on filedocumented in this encounter
--- OUTSIDE RECORDS SUMMARY | 2025-04-25 00:08 | XMS_ITS ---
Author Organization [facility] Support Name Relationship Address Phone Isaiah, Sissy Guarantor [address] [place], [place] [phone] Isaiah, Sissy Agent [address] [place], [place] [phone] Allergies and adverse reactions Code CodeSystem Substance Reaction Severity StartDate Concern Status 7804 RXNORM Oxycodone Skin reaction - finding (code- 213760652, SNOMED CT) Mild 04/15/2018 active Morphine and Related Nausea (code- 893199038, SNOMED CT) Mild 04/15/2018 active 2670 RXNORM Codeine Skin reaction - finding (code- 561724434, SNOMED CT) Mild 04/15/2018 active 723 RXNORM Amoxicillin Skin reaction - finding (code- 678603734, SNOMED CT) Mild 04/15/2018 active Immunizations Immunization Status Vaccine Details Vaccine Code CodeSystem Date Notes TB 1 Step Mantoux (PPD) completed tuberculin skin test; unspecified formulation lotNumber: [id number] expiry: 10/01/2020 Mfg: Tubersol Given 0.1 ml Right Forearm intradermally 98 CVX created date: 04/15/2018 consent date: 04/15/2018 administer ed date: 04/15/2018 resident left facility AMA on 04/15/18 Problems Problem # Description Date of onset Resolved Date Code CodeSystem Concern Status 1 CHARCOT'S JOINT, RIGHT ANKLE AND FOOT 04/15/[address] active 2 DERANGEMENT OF OTHER LATERAL MENISCUS DUE TO OLD TEAR OR INJURY, RIGHT KNEE 04/15/[address] active 3 ESSENTIAL (PRIMARY) HYPERTENSION 04/15/[address] active 4 OLD MYOCARDIAL INFARCTION 04/15/[address] active 5 OTHER OBESITY DUE TO EXCESS CALORIES 04/15/[address] active 6 PROLAPSE OF VAGINAL VAULT AFTER HYSTERECTOMY 04/15/[address] active 7 TYPE 2 DIABETES MELLITUS WITH FOOT ULCER 04/15/[address] active 8 VITAMIN D DEFICIENCY, UNSPECIFIED 04/15/[address] active Reason for Referral No Reasons for Referral Entered Social History Social History Observation Description Start Date End Date Code Code System Current Smoking Status Tobacco smoking consumption unknown 530271692 SNOMED CT Sex Assigned At Female 1970 17671-5 [facility] Gender Identity Vital Signs Code Code System Vitals Name Values and Units Timing Information 82044-2 [facility] Weight Wqqtc=876.4 Units=Lbs 9279-1 [facility] Respiratory Rate Value=20.0 Units=/m in 04/15/2018 8462-4 [facility] Blood Pressure-Diastolic Value=70 Un its=mmHg 04/15/2018 8480-6 [facility] Blood Pressure-Systolic Epnal=679 Un its=mmHg 04/15/2018 8310-5 [facility] Body Temperature Value=97.3 Units= F 04/15/2018 8867-4 [facility] Heart rate Value=98.0 Units=/min 8302-2 [facility] Height Value=66.0 Units=Inches 04/15/2018 41543-7 [facility] O2 % BldC Oximetry Value=96.0 Units= % 04/15/2018
--- OUTSIDE RECORDS SUMMARY | 2025-04-25 00:08 | XMS_ITS | Encounter Summary ---
Author Organization [employer] Address [address] [place] [address] Care Team Providers Care Waxer Tender Name Role Phone Unavailable Primary Care Provider Unavailabl e Encounter Details Date Type Department Care Team (Late st Contact Info) Description 03/17/2022 Transcribed Document [facility] [place] [facility] [place] [address] ProviderEvangelista MD [address], [place] [phone] Social History Tobacco Use Types Packs/Day Years Used Date Smoking Tobacco: Never Assessed Comments Unknown Sex and Gender Information Value Date Recorded Sex Assigned at Not on file Legal Sex Female 3:10 PM CDT Gender Identity Not on file Sexual Orientation Not on file documented as of this encounter Miscellaneous Notes * Cerner Conversion Note - Evangelista ProviderMD - 03/17/2022 8:48 AM CDT Spiritual Care Assessment Entered On: 03/20/2022 8:05 EDT Performed On: 03/20/2022 6:49 EDT by MEDINA BRADFORD General Information Initial Visit : Yes Referred by : Patient Referral Reason Comment : Pre-surgery visit Ministry Provided to : Patient, Family/Significant other Anglican Preference : Sikhism ([employer] of [employer]) MEDINA BRADFORD P - 03/20/2022 8:04 EDT Spiritual Assessment Spiritual Assessment Comment/Summary Points : Provided pre-surgery visit and prayer with patient and mother. Spirital Assessment Comment/Summary Report : SPIRITUAL ASSESSMENT COMMENT/SUMMARY No qualifying data available. MEDINA BRADFORD - 03/20/2022 8:04 EDT Interventions Emotional Support : Empathic/Engaged listening, Family/Significant other supported Spiritual and Anglican : Prayer shared, Spiritual/Anglican support provided MEDINA BRADFORD - 03/20/2022 8:04 EDT Electronically signed by Atul [facility] Conversion Business Planning Manager Cerner at 03/05/2023 6:53 PM CDT documented in this encounter Plan of Treatment Not on file documented as of this encounter Visit Diagnoses Not on filedocumented in this encounter
--- OUTSIDE RECORDS SUMMARY | 2025-04-25 00:08 | XMS_ITS | Encounter Summary ---
Author Organization [employer] Address [address] [place] [address] Care Team Providers Care Manager Background Name Role Phone Unavailable Primary Care Provider Unavailabl e Encounter Details Date Type Department Care Team (Late st Contact Info) Description 03/17/2022 Transcribed Document [facility] [place] Family Medicine [facility] [address] ProviderEvangelista MD [address] [place] [address] Social History Tobacco Use Types Packs/Day Years Used Date Smoking Tobacco: Never Assessed Comments Unknown Sex and Gender Information Value Date Recorded Sex Assigned at Not on file Legal Sex Female 3:10 PM CDT Gender Identity Not on file Sexual Orientation Not on file documented as of this encounter Miscellaneous Notes * Cerner Conversion Note - Evangelista ProviderMD - 03/17/2022 8:40 AM CDT PAT Adult Entered On: 03/17/2022 8:48 EDT Performed On: 03/17/2022 8:40 EDT by DEMETRICE WANG RN Vital Measurements Temperature Source : Temporal artery scanning Temperature Mode : Fahrenheit Temperature, Fahrenheit : 96.7 Deg F (LOW) Clinical Temperature, C : 35.9 Deg C Pulse Method : Non-Invasive BP Device Peripheral Pulse Rate : 76 bpm Respiratory Rate : 18 Breaths/Min Blood Pressure Source : Non-Invasive BP Device Systolic Blood Pressure : 112 mmHg Diastolic Blood Pressure : 64 mmHg Oxygen Saturation : 97 % Oxygen Therapy Mode : Room air Ale Gresham RN-PATIENT CARE BEDSIDE NON-EXEMPT - 03/19/2022 12:07 EDT Height and Weight, Clinical Dosing Height Source : Measured Height Entry Format : [place] Height, Feet : 5 ft(Converted to: 152 cm, 60 Inch) Height, Inches : 6.5 Inch(Converted to: 0 ft 7 Inch, 16.51 cm) Clinical Height : 168.91 cm Weight Source : Standing scale Weight Entry Format : [place] Clinical Dosing Weight : 131.82 kg Weight, Pounds : 290 lb Body Surface Area (BSA) : 2.36 m2 Body Mass Index : 46.2 kg/m2 (>HHI) Gamaliel Body Weight : 60 kg Ale Gresham RN-PATIENT CARE BEDSIDE NON-EXEMPT - 03/19/2022 12:07 EDT Health Histories Smoking Status : Former smoker, quit more than 30 days ago Smokeless Tobacco Status : Never Implant/Device Type, Glove Cutter and Model : spinal cord stimulator; cardiac stents; right foot pins DEMETRICE WANG RN - 03/17/2022 8:40 EDT Social History (As Of: 03/17/2022 08:48:16 EDT) Tobacco: Use in Last 12 Months: No. Used Tobacco, but Quit Yes. Last Used: 11/2012. (Last Updated: 12/15/2013 10:39:43 EST by ERIC OWNES RN) Use in Last 12 Months: Cigarettes. Smoking [...] 07/10/2021 16:16:31 EDT by Dalton Lang Rn) Former smoker, quit more than 30 days ago Smoking Status. Never Smokeless Tobacco Status. Years of Use: 20. Packs/Tins Daily: 1. Last Used: Quit 2014. (Last Updated: 03/17/2022 08:41:14 EDT by DEMETRICE WANG RN) Alcohol: Use in Last 12 Months: No. (Last Updated: 12/15/2013 10:39:29 EST by ERIC OWENS, GRETA) Alcohol Use History No. Use in Last 12 Months: No. (Last Updated: 07/10/2021 16:16:31 EDT by Dalton Lang Rn) Alcohol Use History No. (Last Updated: 03/17/2022 08:41:22 EDT by DEMETRICE WANG RN) Substance Abuse: Drug Use Hx: No. Use in Last 12 Months: No. (Last Updated: 07/10/2021 16:16:31 EDT by Dalton Lang Rn) Drug Use Hx: No. Use in Last 12 Months: No. (Last Updated: 03/17/2022 08:41:27 EDT by DEMETRICE WANG RN) Infectious Disease History Does patient have symptoms of COVID-19? : No Tested for COVID19 in the past 14 days : Yes, Patient stated results Negative Where and When was COVID19 testing completed? : [facility] 03/18/22 Does the Patient state known exposure to a COVID-19 positive case in the last 14 days? : No Does Patient want a COVID-19 Vaccine? : No Ale Gresham RN-PATIENT CARE BEDSIDE NON-EXEMPT - 03/19/2022 12:07 EDT Infectious Disease Risk Screening Grid Cough < 2 wks of unknown origin : NO Cough > 2 weeks : NO Blood in Sputum : NO Fever or self-reported Fever : NO Rash of unknown origin : NO Headache : NO Stiff neck : NO Night Sweats : NO Unexplained Weight Loss : NO Diarrhea (3 episode per day) : NO Ale Gresham RN-PATIENT CARE BEDSIDE NON-EXEMPT - 03/19/2022 12:07 EDT INF Disease TB Screening Calc : 0 Ale Gresham RN-PATIENT CARE BEDSIDE NON-EXEMPT - 03/19/2022 12:07 EDT Patient Vaccinated for COVID-19 : Partially vaccinated or need booster Physical contact outside [place] in the last 30 days : No Hospitalized in [place] : No Infectious Disease History : Chicken pox/Shingles, Influenza, MRSA, Other: Covid 19+ Jul 2021: SOA, dizziness, malaise, fatigue,fevers; not hospitalized INF Disease Recent Travel Calc : 0 DEMETRICE WANG RN - 03/17/2022 8:40 EDT COVID19 PreProcedure Screening Date PreProcedure COVID-19 test known? : Yes Date of PreProcedure COVID-19 : 03/18/2022 EDT Has patient been isolated since the test : Yes Exposed to COVID19 symptoms since test? : No Ale Gresham RN-PATIENT CARE BEDSIDE NON-EXEMPT - 03/19/2022 12:07 EDT Is this an Emergent or Add on Procedure? : No DEMETRICE WANG RN - 03/17/2022 8:40 EDT Anesthesia/Transfusion History Family History of Anesthesia Reaction : Prior transfusion without reaction Transfusion History : Prior anesthesia without reaction Family History of Anesthesia Reaction : None DEMETRICE WANG RN - 03/17/2022 8:40 EDT Functional Assessment Functional ADL Evaluation Index EBN Bathing : Independent (2) Dressing : Independent (2) Toileting : Independent (2) Transferring Bed or Chair : Independent (2) Continence : Independent (2) Feeding : Independent (2) DEMETRICE WANG RN - 03/17/2022 8:40 EDT ADL Index Score : 12 DEMETRICE WANG RN - 03/17/2022 8:40 EDT Advance Directive Patient has Advance Directive *Q : No, patient refuses Advance Directive information DEMETRICE WANG RN - 03/17/2022 8:40 EDT Spiritual/Cultural Needs Any Spiritual/Cultural Needs or Requests : Yes Spiritual/Cultural Needs Comment : prayer on DOS 03/20/2022 Spiritual/Cultural Needs Comment : prayer on DOS 03/20/2022 DEMETRICE WANG RN - 03/17/2022 8:40 EDT [place] Suicide Severity Rating Scale (C-SSRS) CSSRS Past Month Wish to be : No CSSRS Past Month Suicidal Thoughts : No CSSRS Lifetime Suicide Behavior : No Suicide Severity Rating Score : 0 Suicide Severity Rating : No Additional Care Required at this time DEMETRICE WANG RN - 03/17/2022 8:40 EDT Psychosocial History Do You Have a History of the Following? : Anxiety Currently in Unsafe Situation : No DEMETRICE WANG RN - 03/17/2022 8:40 EDT General Info Preferred Name : Bee Legal Guardian : No Support Person/Patient Anesthesiologist Physician : Yes Support Person/Pt Rep Name : Nelida Colon - mother Support Person/Pt Rep Contact Information : [phone] Want Family/Rep/Phys Notified of Admit : No Emergency Contact #1 : Nelida Colon Emergency Contact #1 cell Emergency Contact #1 Relationship : Mother Emergency Contact #2 : - Emergency Contact #2 Phone Number : - Emergency Contact #2 Relationship : - Chief Complaint : pain in right foot due to hardware - plate and 8 screws Information Obtained From : Patient Primary Language : Nigerien Preferred Communication Mode : Verbal Communication Barrier : None Quilter Fixer Needed : No DEMETRICE WANG RN - 03/17/2022 8:40 EDT Scott Scale Scott Sensory Perception : Slightly limited Scott Moisture : Rarely moist Scott Activity : Walks occasionally (Comment: uses cane [DEMETRICE WANG RN - 03/17/2022 8:40 EDT] ) Scott Mobility : Slightly limited Scott Nutrition : Excellent Scott Friction and Shear : No apparent problem Scott Score : 20 DEMETRICE WANG RN - 03/17/2022 8:40 EDT Sleep Apnea Risk Assmt BMI Greater Than 35 kg/m2 : Yes Neck Circumference Greater Than 40 cm : No STOP-BANG Sleep Apnea Risk Level Score : 3 Ale Gresham RN-PATIENT CARE BEDSIDE NON-EXEMPT - 03/19/2022 12:07 EDT Hx of Obstructive Sleep Apnea Diagnosis : No Snore Loudly : No Tired, Fatigued, or Sleepy During Day : No Observed Stopping Breathing During Sleep : No Have/Are Being Treated for Hypertension : Yes Age over 50 Years Old : Yes Gender Male : No DEMETRICE WANG RN - 03/17/2022 8:40 EDT documented in this encounter Plan of Treatment Not on file documented as of this encounter Visit Diagnoses Not on filedocumented in this encounter
--- OUTSIDE RECORDS SUMMARY | 2025-04-25 00:08 | XMS_ITS | Clinical Summary ---
Author Organization Healthcare Address [address] [place] [address] Care Team Providers Care Upsetting Machine Operator Name Role Phone Diego Lynch MD Primary Care Provider [phone] Family History 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 Relation Name Comments Melanoma Father Cardiac disorder Mother Colon cancer Mother Hypertension Mother Transient ischemic attack Mother Relation Name Status Comments Father Mother Social History Tobacco Use Types Packs/Day Years Used Date Smoking Tobacco: Never Alcohol Use Standard Drinks/Week Comments No 0 (1 standard drink = 0.6 oz pur e alcohol) Comments Unknown Sex and Gender Information Value Date Recorded Sex Assigned at Not on file Legal Sex Female 8:46 PM EDT Gender Identity Not on file Sexual Orientation Not on file Last Filed Vital Signs Vital Sign Reading Time Taken Comments Blood Pressure - - Pulse - - Temperature - - Respiratory Rate - - Oxygen Saturation - - Inhaled Oxygen Concentration - - Weight 138 kg (304 lb 3.8 oz) 08/10/2017 10:12 A M EDT Height 168.9 cm (5' 6.5 ) 08/10/2017 10:12 AM ED T Body Mass Index 48.37 08/10/2017 10:12 AM EDT Plan of Treatment Not on file Care Teams Upsetting Machine Operator Relationship Specialty Start Date End Date Diego Lynch MD [address] [facility] [address] [place] [address] PCP - General 03/29/21
--- OUTSIDE RECORDS SUMMARY | 2025-04-25 00:08 | XMS_ITS | Encounter Summary ---
Author Organization [employer] Address [address] [place] [address] Care Team Providers Care Seed Packer Name Role Phone Unavailable Primary Care Provider Unavailabl e Encounter Details Date Type Department Care Team (Late st Contact Info) Description 03/20/2022 Transcribed Document [facility] [place] [facility] [place] [address] ProviderEvangelista MD [address] [place] [address] Social History Tobacco Use Types Packs/Day Years Used Date Smoking Tobacco: Never Assessed Comments Unknown Sex and Gender Information Value Date Recorded Sex Assigned at Not on file Legal Sex Female 3:10 PM CDT Gender Identity Not on file Sexual Orientation Not on file documented as of this encounter Miscellaneous Notes * Cerner Conversion Note - Historical ProviderMD - 03/20/2022 9:56 AM CDT Patient: BEE COLON Age: 51 Years Sex: Female : 1970 *Operation removal of hardware right foot, peripheral nerve block right foot Anesthesia Type MAC JENN ENRIQUE MD-ANS (Anesthesiologist of Record) w local Indication for Surgery painful retained internal fixation right foot, right foot pain *Preoperative Diagnosis Same *Postoperative Diagnosis Same *Surgeon(s) Primary Surgeon ANGELA GREEN DPM-POD (Surgeon/Proceduralist, First) *Estimated Blood Loss <10 cc *Findings one plate, 8 screws removed right foot *Specimen(s) hardware right foot Complications none Date of Service Date/Time of Service SN - Proc - Start Time: 03/20/22 09:01:00 (03/20/22 09:14:10) documented in this encounter Plan of Treatment Not on file documented as of this encounter Visit Diagnoses Not on filedocumented in this encounter
--- OUTSIDE RECORDS SUMMARY | 2025-04-25 00:08 | XMS_ITS | Encounter Summary ---
Author Organization [employer] Address [address] [place] [address] Care Team Providers Care Bull Rider Name Role Phone Unavailable Primary Care Provider Unavailabl e Encounter Details Date Type Department Care Team (Late st Contact Info) Description 07/11/2021 Transcribed Document [facility] [place] Family Medicine [address] [place] [address] ProviderEvangelista MD [address] [place] [address] Social History Tobacco Use Types Packs/Day Years Used Date Smoking Tobacco: Never Assessed Comments Unknown Sex and Gender Information Value Date Recorded Sex Assigned at Not on file Legal Sex Female 3:10 PM CDT Gender Identity Not on file Sexual Orientation Not on file documented as of this encounter Miscellaneous Notes * Cerner Conversion Note - Evangelista ProviderMD - 07/11/2021 12:12 PM CDT [facility] [place] [address] BEE COLON :1970 Visit Time:07/11/2021 What to do next Your Diagnosis Non-pressure chronic ulcer of other part of right foot with unspecified severity Peripheral vascular disease, unspecified Unspecified atherosclerosis of [place] arteries of extremities, unspecified extremity, Unspecified atherosclerosis of [place] arteries of extremities, unspecified extremity Instructions From Your Care Team Diet after Discharge: Resume usual diet as tolerated, Do not drink any alcoholic beverages, Drink at least 8-10 glasses of water per day Activity after Discharge: Rest and relax today, No strenuous activity wear surgical boot while up and moving around -- do not walk or bear weight without boot! you may sleep without boot for comfort. exercise legs frequently by bending the knees to prevent blood clots! Weight Bearing: partial weight bearing only. use cane. minimal walking. Driving after Discharge: Do not drive until 24 hours after no longer taking pain medications Showering/Bathing: May shower, No tub bathing, soaking or swimming. wrap dressing with a trash bag/strong plastic and strong tape to keep clean and dry at all times. Notify Provider of: excessive bleeding, pain, swelling, fever, or pus-like drainage. Wound/Incision Care after Discharge: Keep operative site/wound site clean and dry, DO NOT change dressing; may reinforce it as needed. apply ice for 20 min every hour for the first 2 days above surgical site. mild swelling and bruising is expected. Medical Equipment for Home Use: cane, ice pack, boot Pain medication: take with food and use stool softeners 2-3x/day to prevent constipation. Discharge Follow Up Instructions: FU with Dr. Greco in 7-10 days and keep dressing on until that appointment Follow-Up Appointments Follow Up with MANI GRECO When Within 1 to 2 weeks Comments Keep dressing intact until appointment in 7-10 days Jul.23 at 11:15 am Where: [facility] [address] [facility] [facility] [place] [phone] Medications What How Much When Instructions Next Dose ezetimibe (Zetia 10 mg oral tablet) 1 Tablet(s) Oral At Bedtime acetaminophen-hydrocodone (acetaminophen-hydrocodone 325 mg-10 mg oral tablet) 1 Tablet(s) Oral Every 6 Hours as needed for Pain (Mild 1-3) aspirin (aspirin 81 mg oral tablet) 81 Milligram(s) Oral Every Day dapagliflozin (Farxiga 10 mg oral tablet) 1 Tablet(s) Oral Every Day doxycycline (doxycycline hyclate 100 mg oral capsule) 1 Capsule(s) Oral Two Times A Day DULoxetine (Cymbalta 60 mg oral delayed release capsule) 1 Capsule(s) Oral Two Times A Day insulin glargine (Lantus 100 units/ mL subcutaneous solution) 75 Unit(s) SubCutaneous At Bedtime insulin lispro (HumaLOG 100 units/ mL injectable solution) 16 Unit(s) SubCutaneous Before Meals isosorbide mononitrate (isosorbide mononitrate 60 mg oral [...] oral capsule) 1 Tablet(s) Oral Every Day rosuvastatin (rosuvastatin 20 mg oral tablet) [...] and medications per pharmacy guidance. Education Materials Monitored Anesthesia Care, Care After These instructions [...] eating solid foods. General instructions ??? Take dmtw-fne-flyetoi and prescription medicines only as told by [...] provider. Document Revised: 01/31/2019 Document Reviewed: 02/22/2017 [employer] Patient Education ?? 2020 [employer]. Surgical Wound Debridement, Care After This sheet [...] these instructions at home: Medicines ??? Take buca-wje-bitcfmz and prescription medicines only as told by [...] and water are not available, use hand post graduate intern. ? Change your dressing as told by [...] Your wound is not getting better after 1???2 weeks of treatment. ??? You develop a [...] provider. Document Revised: 10/25/2019 Document Reviewed: 10/25/2019 Elsevier Patient Education ?? 2019 [employer] Emergency Awareness and Preventative Care STROKE [...] Assistance with quitting is available by contacting 8-125-CMCWNOW. This is a free resource providing counseling, support, and referral. Or you may contact your personal physician. [employer] Suicide Prevention Lifeline: The National Suicide Prevention [...] This Visit (last charted value for your 07/11/2021 visit) Hematology 07/11/2021 9:01 AM WBC: 9.2 K/uL -- Normal range between ( 4.5 and 10.5 ) RBC: 5.08 Million/uL -- Normal range between ( 3.93 and 5.22 ) Hct: 39.7 % -- Normal range between ( 34.1 and 44.9 ) Hgb: 12.3 g/dL -- Normal range between ( 11.2 and 15.7 ) Platelet Count: 250 K/uL -- Normal range between ( 163 and 369 ) MCH: 24.2 pg -- Normal range between ( 25.6 and 32.2 ) MCHC: 31.0 Gram/dL -- Normal range between ( 32.2 and 36.5 ) MCV: 78.1 fL -- Normal range between ( 79.0 and 94.8 ) Slide Review: No Eos %: 3.0 % -- Normal range between ( 0.0 and 7.0 ) [place] #: 0.83 K/uL -- Normal range between ( 0.16 and 1.00 ) Eos #: 0.28 x10(3)/uL -- Normal range between ( 0.00 and 0.80 ) [place] %: 9.0 % -- Normal range between ( 3.0 and 9.0 ) Baso %: 0.5 % -- Normal range between ( 0.0 and 1.5 ) Baso #: 0.05 x10(3)/uL -- Normal range between ( 0.00 and 0.20 ) RDW: 18.7 % -- Normal range between ( 11.7 and 14.9 ) Neut %: 61.6 % -- Normal range between ( 34.0 and 71.0 ) Neut #: 5.67 K/uL -- Normal range between ( 1.56 and 6.13 ) Lymph %: 25.4 % -- Normal range between ( 19.3 and 53.1 ) Lymph #: 2.34 x10(3)/uL -- Normal range between ( 1.00 and 3.90 ) MPV: 10.6 fL -- Normal range between ( 9.4 and 12.4 ) IG#: 0.05 x10(3)/uL -- Normal range between ( 0.00 and 0.05 ) IG%: 0.50 % -- Normal range between ( 0.00 and 0.60 ) General Chemistry 07/11/2021 11:42 AM Glucose POC2: 160 mg/dL -- Normal range between ( 70 and 110 ) Device Comment 1: Device Comment 1 07/11/2021 9:01 AM Creatinine Level: 1.10 mg/dL -- Normal range between ( 0.55 and 1.02 ) Sodium Level: 137 mmol/L -- Normal range between ( 136 and 146 ) Potassium Level: 4.7 mmol/L -- Normal range between ( 3.5 and 5.1 ) Chloride Level: 109 mmol/L -- Normal range between ( 102 and 112 ) Carbon Dioxide Level: 25 mmol/L -- Normal range between ( 21 and 32 ) Anion Gap: 8 -- Normal range between ( 9 and 20 ) Bun/Creatinine: 25.5 -- Normal range between ( 8.0 and 20.0 ) Calcium Level: 9.0 mg/dL -- Normal range between ( 8.4 and 10.1 ) eGFR : >60 mL/min/1.73m2 eGFR NonAfrican: 52 mL/min/1.73m2 Glucose Level: 190 mg/dL -- Normal range between ( 74 and 106 ) Blood Urea Nitrogen: 28 mg/dL -- Normal range between ( 7 and 22 ) Patient Name:BEE COLON I have received this information and was given the opportunity to ask questions. Patient/Still Worker Helper Name: Patient/Still Worker Helper Signature: Relationship to Patient: Clinician/Hospital Still Worker Helper Signature: Date: Electronically signed by Atul, [facility] Conversion Principal Quality Engineer Cerner at 03/05/2023 7:13 PM CDT documented in this encounter Plan of Treatment Not on file documented as of this encounter Visit Diagnoses Not on filedocumented in this encounter
--- OUTSIDE RECORDS SUMMARY | 2025-04-25 00:08 | XMS_ITS | Encounter Summary ---
Author Organization [employer] Address [address] [place] [address] Care Team Providers Care Garage Manager Name Role Phone Unavailable Primary Care Provider Unavailabl e Encounter Details Date Type Department Care Team (Late st Contact Info) Description 03/20/2022 Transcribed Document [facility] [place] Family Medicine [facility] [place] [address] ProviderEvangelista MD [address] [place] [address] Social History Tobacco Use Types Packs/Day Years Used Date Smoking Tobacco: Never Assessed Comments Unknown Sex and Gender Information Value Date Recorded Sex Assigned at Not on file Legal Sex Female 3:10 PM CDT Gender Identity Not on file Sexual Orientation Not on file documented as of this encounter Miscellaneous Notes * Cerner Conversion Note - Evangelista ProviderMD - 03/20/2022 10:11 AM CDT [facility] [place] [address] BEE COLON :1970 Visit Time:03/20/2022 What [...] When 03/24/2022 02:00 PM EDT [facility] [address] [place] [address]- Medications What How Much When Instructions Next [...] and water are not available, use hand automobile dealer. ? Change your dressing as told by [...] fried or sweet foods. ? Take an xbdg-twz-sblyvth or prescription medicine for constipation. ??? Do not use any products that contain nicotine or tobacco, such as cigarettes and e-cigarettes. These can delay bone healing after surgery. If you need help quitting, ask your health care provider. ??? Take qket-ibt-anxaiww and prescription medicines only as told by [...] provider. Document Revised: 12/29/2019 Document Reviewed: 11/25/2018 [employer] Patient Education ?? [address] Outpatient Surgery, Adult, Care After This sheet [...] children on your own. Medicines ??? Take ksip-xnh-rhwzhre and prescription medicines only as told by [...] keep your urine pale yellow. ? Take uudd-idg-rknqpea or prescription medicines. ? Eat foods that [...] added (diluted fruit juice). ? Eat bland, rcoy-cp-hbrbgk foods in small amounts as you are [...] and water are not available, use hand automobile dealer. ? Change your dressing as told by [...] drink clear fluids slowly and eat bland, inxa-gd-avlwct foods in small amounts. ??? Ask your health care provider what activities are safe for you. This information is not intended to replace advice given to you by your health care provider. Make sure you discuss any questions you have with your health care provider. Document Revised: 03/01/2021 Document Reviewed: 08/23/2020 [employer] Patient Education ?? [address] Emergency Awareness and Preventative Care STROKE is [...] Assistance with quitting is available by contacting 5-825-FDFH-NOW. This is a free resource providing counseling, [...] range between ( 0.0 and 7.0 ) [place] #: 1.05 K/uL -- Normal range between ( 0.16 and 1.00 ) Eos #: 0.30 x10(3)/uL -- Normal range between ( 0.00 and 0.80 ) [place] %: 8.5 % -- Normal range between [...] was given the opportunity to ask questions. Patient/Farm Crew Member Name: Patient/Farm Crew Member Signature: Relationship to Patient: Clinician/Hospital Farm Crew Member Signature: Date: documented in this encounter Plan of Treatment Not on file documented as of this encounter Visit Diagnoses Not on filedocumented in this encounter
--- OUTSIDE RECORDS SUMMARY | 2025-04-25 00:08 | XMS_ITS | Encounter Summary ---
Author Organization [employer] Address [address] [place] [id number] Care Team Providers Care Senior Radiation Therapist Name Role Phone Unavailable Primary Care Provider Unavailabl e Encounter Details Date Type Department Care Team (Late st Contact Info) Description 05/12/2022 Transcribed Document [facility] [address] ProviderEvangelista MD [address] [place] [address] Social History Tobacco Use Types Packs/Day Years Used Date Smoking Tobacco: Never Assessed Comments Unknown Sex and Gender Information Value Date Recorded Sex Assigned at Not on file Legal Sex Female 3:10 PM CDT Gender Identity Not on file Sexual Orientation Not on file documented as of this encounter Miscellaneous Notes * Cerner Conversion Note - Evangelista Carbone MD - 05/12/2022 8:28 AM CDT PAT Adult Entered On: 05/12/2022 8:35 EDT Performed On: 05/12/2022 8:28 EDT by DEMETRICE WANG RN Vital Measurements Temperature Source : Temporal artery scanning Temperature Mode : Fahrenheit Temperature, Fahrenheit : 97.1 Deg F Clinical Temperature, C : 36.2 Deg C Peripheral Pulse Rate : 70 bpm Respiratory Rate : 16 Breaths/Min Blood Pressure Location : Arm, right upper Blood Pressure Source : Non-Invasive BP Device Systolic Blood Pressure : 139 mmHg Diastolic Blood Pressure : 78 mmHg Oxygen Saturation : 97 % Oxygen Therapy Mode : Room air ELY ARAYA RN - 05/13/2022 10:42 EDT Height and Weight, Clinical Dosing Height Source : Measured Height Entry Format : [place] Height, Feet : 0 ft(Converted to: 0 cm, 0 Inch) Height, Inches : 66.5 Inch(Converted to: 5 ft 6 Inch, 168.91 cm) Clinical Height : 168.91 cm Weight Source : Standing scale Weight Entry Format : [place] Clinical Dosing Weight : 131.82 kg Weight, Pounds : 290 lb Body Surface Area (BSA) : 2.36 m2 Body Mass Index : 46.2 kg/m2 (>HHI) [place] Body Weight : 60 kg ELY ARAYA RN - 05/13/2022 10:42 EDT Health Histories Smoking Status : Former smoker, quit more than 30 days ago Smokeless Tobacco Status : Never DEMETRICE WANG RN - 05/12/2022 8:44 EDT Implant/Device Type, Hand Crown Pouncer and Model : spinal cord stimulator; cardiac stents; right foot pins DEMETRICE WANG RN - 05/12/2022 8:28 EDT Social History (As Of: 05/12/2022 08:45:32 EDT) Tobacco: Use in Last 12 Months: No. Used Tobacco, but Quit Yes. Last Used: 11/2012. (Last Updated: 12/15/2013 10:39:43 EST by ERIC OWENS RN) Use in Last 12 Months: Cigarettes. [...] (Last Updated: 07/10/2021 16:16:31 EDT by Dalton Lang, Rn) Former smoker, quit more than 30 days ago Smoking Status. Never Smokeless Tobacco Status. Years of Use: 20. Packs/Tins Daily: 1. Last Used: Quit 2014. (Last Updated: 03/17/2022 08:41:14 EDT by DEMETRICE WANG RN) Former smoker, quit more than 30 days ago Smoking Status. Never Smokeless Tobacco Status. Years of Use: 20. Packs/Tins Daily: 1. Last Used: Quit 2014. (Last Updated: 05/12/2022 08:45:16 EDT by DEMETRICE WANG, GRE[place]) Alcohol: Use in Last 12 Months: No. (Last Updated: 12/15/2013 10:39:29 EST by ERIC OWENS RN) Alcohol Use History No. Use in Last 12 Months: No. (Last Updated: 07/10/2021 16:16:31 EDT by Dalton Lang Rn) Alcohol Use History No. (Last Updated: 03/17/2022 08:41:22 EDT by DEMETRICE WANG RN) Alcohol Use History No. (Last Updated: 05/12/2022 08:45:23 EDT by DEMETRICE WANG RN) Substance Abuse: Drug Use Hx: No. Use in Last 12 Months: No. (Last Updated: 07/10/2021 16:16:31 EDT by Dalton Lang Rn) Drug Use Hx: No. Use in Last 12 Months: No. (Last Updated: 03/17/2022 08:41:27 EDT by DEMETRICE WANG RN) Drug Use Hx: No. Use in Last 12 Months: No. (Last Updated: 05/12/2022 08:45:28 EDT by DEMETRICE WANG RN) Infectious Disease History Patient Vaccinated for COVID-19 : Partially vaccinated or need booster Does Patient want a COVID-19 Vaccine? : No Physical contact outside [place] in the last 30 days : No Hospitalized in [place] : No Infectious Disease History : Chicken pox/Shingles, Influenza, MRSA, Other: Covid 19+ Jul 2021: SOA, dizziness, malaise, fatigue,fevers; not hospitalized INF Disease Recent Travel Calc : 0 DEMETRICE WANG RN - 05/12/2022 8:28 EDT COVID19 PreProcedure Screening Is this an Emergent or Add on Procedure? : No DEMETRICE WANG RN - 05/12/2022 8:28 EDT Anesthesia/Transfusion History Family History of Anesthesia Reaction : Prior transfusion without reaction Transfusion History : Prior anesthesia without reaction Family History of Anesthesia Reaction : None DEMETRICE WANG RN - 05/12/2022 8:28 EDT Functional Assessment Functional ADL Evaluation Index EBN Bathing : Independent (2) Dressing : Independent (2) Toileting : Independent (2) Transferring Bed or Chair : Independent (2) Continence : Independent (2) Feeding : Independent (2) DEMETRICE WANG RN - 05/12/2022 8:28 EDT ADL Index Score : 12 DEMETRICE WANG RN - 05/12/2022 8:28 EDT Advance Directive Patient has Advance Directive *Q : No, patient refuses Advance Directive information DEMETRICE WANG RN - 05/12/2022 8:28 EDT Spiritual/Cultural Needs Any Spiritual/Cultural Needs or Requests : Yes Spiritual/Cultural Needs Comment : prayer on DOS 05/15/2022 Spiritual/Cultural Needs Comment : prayer on DOS 05/15/2022 DEMETRICE WANG RN - 05/12/2022 8:28 EDT [place] Suicide Severity Rating Scale (C-SSRS) CSSRS Past Month Wish to be : No CSSRS Past Month Suicidal Thoughts : No CSSRS Lifetime Suicide Behavior : No Suicide Severity Rating Score : 0 Suicide Severity Rating : No Additional Care Required at this time DEMETRICE WANG RN - 05/12/2022 8:28 EDT Psychosocial History Do You Have a History of the Following? : Anxiety, Other: claustrophobia Currently in Unsafe Situation : No DEMETRICE WANG RN - 05/12/2022 8:28 EDT Teaching/Learning Assessment Individuals Taught : Patient, Family member Readiness to Learn : Cooperative Readiness to Learn : Explanation, Printed materials ELY ARAYA RN - 05/13/2022 10:42 EDT Education Topics, Periop Preadmission Perioperative Education Grid Arrival Time/Place : Verbalizes understanding Infection Control : Verbalizes understanding IV's : Verbalizes understanding NPO Status/Directions : Verbalizes understanding Pain Management : Verbalizes understanding Preprocedure Preparations : Verbalizes understanding Preprocedure Tests/Labs : Verbalizes understanding Remove Body Piercings : Verbalizes understanding Responsible Adult : Verbalizes understanding Take/Hold Medications Pre-Procedure : Verbalizes understanding ELY ARAYA RN - 05/13/2022 10:42 EDT Responsible Adult Contact Information : Nelida Colon, mother, ELY ARAYA RN - 05/13/2022 10:42 EDT General Info Objects to Sharing Info w Family : No ELY ARAYA RN - 05/13/2022 10:42 EDT Preferred Name : Bee Legal Guardian : No Support Person/Patient Processing Specialist : Yes Support Person/Pt Rep Name : Nelida Colon - mother Support Person/Pt Rep Contact Information : [phone] Want Family/Rep/Phys Notified of Admit : No Emergency Contact #1 : Nelida Colon Emergency Contact #1 cell Emergency Contact #1 Relationship : Mother Emergency Contact #2 : - Emergency Contact #2 Phone Number : - Emergency Contact #2 Relationship : - Chief Complaint : right foot pain due to bone infection coming to have littlest toe right foot amputed Information Obtained From : Patient Primary Language : Beninese Preferred Communication Mode : Verbal Communication Barrier : None Manager Mental Health Needed : No DEMETRICE WANG RN - 05/12/2022 8:28 EDT Scott Scale Scott Sensory Perception : Slightly limited Scott Moisture : Rarely moist Scott Activity : Walks occasionally (Comment: walks w/ cane [DEMETRICE WANG RN - 05/12/2022 8:28 EDT] ) Scott Mobility : Slightly limited Scott Nutrition : Adequate Scott Friction and Shear : No apparent problem Scott Score : 19 DEMETRICE WANG RN - 05/12/2022 8:28 EDT Sleep Apnea Risk Assmt BiPAP/CPAP Ordered for Home Use : Yes Hx of Obstructive Sleep Apnea Diagnosis : Yes BiPAP/CPAP Used at Home : No Reason BiPAP/CPAP Not Used at Home : I don't have one yet, but I'm working on it. Age over 50 Years Old : Yes Gender Male : No Sleep Apnea Risk Comment : tried several devices but unable to use DEMETRICE WANG RN - 05/12/2022 8:28 EDT documented in this encounter Plan of Treatment Not on file documented as of this encounter Visit Diagnoses Not on filedocumented in this encounter
--- OUTSIDE RECORDS SUMMARY | 2025-04-25 00:08 | XMS_ITS | Encounter Summary ---
Author Organization [employer] Address [address] [place] [id number] Care Team Providers Care Pilot Teacher Name Role Phone Unavailable Primary Care Provider Unavailabl e Encounter Details Date Type Department Care Team (Late st Contact Info) Description 05/15/2022 Transcribed Document [facility] [address] [place] [address] ProviderEvangelista MD [address] [place] [address] Social History Tobacco Use Types [...] Evangelista ProviderMD - 05/15/2022 8:00 AM CDT [facility] Main OR IntraOp Summary Primary Physician: ANGELA GREEN DPM-POD Finalized Date/Time: 05/20/22 14:13:00 Pt. Name: BEE COLON./Sex: 1970 Female Med Rec #: [id number] Physician: ANGELA GREEN DPM-POD Financial #: [id number] Pt. Type: O Room/Bed: 12 Admit/Disch: 05/15/22 06:55:00 - 05/15/22 09:35:00 Institution: [facility] IntraOp Case Attendance Entry 1 Entry 2 Entry 3 Case Attendee ANGELA GREEN DPM-POD CHALKLEY, JUDSON E, Versteeg, Beckie, RN MD-ANS Role Performed Surgeon/Proceduralist, Anesthesiologist of Spirits Model, First First Record Time In 05/15/22 07:41:00 05/15/22 07:41:00 05/15/22 07:41:00 Time Out 05/15/22 08:26:00 05/15/22 08:26:00 05/15/22 08:26:00 Procedure Toe Amputation Toe Amputation Toe Amputation Other Attendee Superficial Wound Closed By: Last Modified By: Milly Powers, Milly Sandhu, Milly Sandhu RN 05/15/22 08:35:45 05/15/22 08:35:45 05/15/22 08:35:45 Entry 4 Entry 5 Entry 6 Case Attendee Antoinette Pena RN Kesten, Robert I, RN LONG, PAULA R., ST Role Performed Spirits Model, Second Spirits Model, Third Scrub, First Time In 05/15/22 07:41:00 05/15/22 07:41:00 05/15/22 07:41:00 Time Out 05/15/22 08:26:00 05/15/22 08:26:00 05/15/22 08:26:00 Procedure Toe Amputation Toe Amputation Toe Amputation Other Attendee Superficial Wound Closed By: Last Modified By: Milly Powers, Milly Sandhu, Milly Sandhu RN 05/15/22 08:35:45 05/15/22 08:35:45 05/15/22 08:35:45 Entry 7 Case Attendee SHANA EASLEY MILLER APPRENTICE Role Performed MILLER APPRENTICE/Nurse Electronic Imager Time In 05/15/22 07:41:00 Time Out 05/15/22 08:26:00 Procedure Toe Amputation Other Attendee Superficial Wound Closed By: Last Modified By: Milly Powers RN 05/15/22 08:35:45 [facility] IntraOp Case Attendance Audit 05/15/22 08:35:45 Helper Coordinator: [id number] Modifier: [id number] <+> Time Out 1 <*> Procedure Toe Amputation 2 <+> Time Out 2 <*> Procedure Toe Amputation 3 <+> Time Out 3 <*> Procedure Toe Amputation 4 <+> Time Out 4 <*> Procedure Toe Amputation 5 <+> Time Out 5 <*> Procedure Toe Amputation 6 <+> Time Out 6 <*> Procedure Toe Amputation 7 <+> Time Out 7 <*> Procedure Toe Amputation 05/15/22 08:22:45 Helper Coordinator: [id number] Modifier: [id number] <+> Time In 1 <*> Procedure Toe Amputation 2 <+> Time In 2 <*> Procedure Toe Amputation 3 <+> Time In 3 <*> Procedure Toe Amputation 4 <+> Time In 4 <*> Procedure Toe Amputation 5 <+> Time In 5 <*> Procedure Toe Amputation 6 <+> Time In 6 <*> Procedure Toe Amputation 7 <+> Time In 7 <*> Procedure Toe Amputation 05/15/22 07:57:53 Helper Coordinator: [id number] Modifier: [id number] <*> Case Attendee ANGELA GREEN DPM-POD 1 <*> Role Performed Surgeon/Proceduralist, First 1 <*> Procedure Toe Amputation 2 <*> Case Attendee JOSE ASHFORD MD-ANS 2 <*> Role Performed Anesthesiologist of Record 2 <*> Procedure Toe Amputation Entry 3 was deleted. Higher numbered entries shifted one position to fill the gap. <-> 3 Case Attendee MARYAN CHAUDHARI NA <-> 3 Role Performed MILLER APPRENTICE/Nurse Electronic Imager <-> 3 Procedure Toe Amputation <+> 4 Case Attendee <+> 4 Role Performed <+> 4 Procedure <+> 5 Case Attendee <+> 5 Role Performed <+> 5 Procedure <+> 6 Case Attendee <+> 6 Role Performed <+> 6 Procedure 05/15/22 07:40:54 Helper Coordinator: [id number] Modifier: [id number] <+> 1 Procedure 2 <*> Procedure Toe Amputation 3 <*> Procedure Toe Amputation [facility] IntraOp Case Times Entry 1 Patient In Room Time 05/15/22 07:41:00 Out Room Time 05/15/22 08:26:00 Anesthesia Start Time 05/15/22 07:41:00 Stop Time 05/15/22 08:26:00 Surgery / Procedure Times Start Time 05/15/22 08:00:00 Stop Time 05/15/22 08:20:00 Last Modified By: Milly Powers RN 05/15/22 08:35:43 [facility] IntraOp Case Times Audit 05/15/22 08:35:43 Helper Coordinator: [id number] Modifier: [id number] <+> 1 Out Room Time <+> 1 Stop Time 05/15/22 08:20:25 Helper Coordinator: [id number] Modifier: [id number] <+> 1 Stop Time 05/15/22 08:01:04 Helper Coordinator: [id number] Modifier: [id number] <+> 1 Start Time [facility] IntraOp Communication Entry 1 Communication To Family/Significant other Comment start Communication By Pablo David RN Date and Time 05/15/22 08:00:00 Last Modified By: Milly Powers RN 05/15/22 08:01:20 [facility] IntraOp Counts Verification Entry 1 Procedure Toe Amputation Count Info Count Type Sponge, Sharps, Miscellaneous Counts Verification Baseline/pre-procedure Sequence Count Results Not Applicable Counts Performed By Count Performed By ZHANNA LU ST (Scrub) Count Performed By Pablo David RN (RN) Last Modified By: Milly Powers RN 05/15/22 07:58:20 [facility] IntraOp Counts Final Entry 1 Procedure Toe Amputation Final Count Info Count Type Sponge, Sharps, Miscellaneous Counts Verification Skin Closure/end of Sequence procedure Count Results Correct, surgeon notified Counts Performed By Count Performed By ZHANNA LU ST (Scrub) Count Performed By Milly Powers RN (RN) Last Modified By: Milly Powers RN 05/15/22 08:17:25 [facility] IntraOp Counts Final Audit 05/15/22 08:17:25 Helper Coordinator: [id number] Modifier: [id number] <*> Procedure Toe Amputation 1 <+> Count Performed By (Scrub) 1 <+> Count Performed By (RN) [facility] IntraOp Cultures and Spec Summary Entry 1 Cultrures and Specimens Specimen Ordered: Yes Test(s) Routine/Path-Lab, Requested/Final Culture(s)/Microbiology Disposition Last Modified By: Milly Powers RN 05/15/22 07:58:38 General Comments: SPECIMENS a. 5th toe and 5th metatarsal, right foot CULTURES 1. right foot surgical site [facility] IntraOp Delays Entry 1 Delay Reason Patient, other (document in comment) Duration 11 Minute(s) Comment case moved up due to delay in previous case prep Last Modified By: Milly Powers RN 05/15/22 08:02:53 [facility] IntraOp Departure from OR Entry 1 Integumentary Assessment Integumentary WDL Assessment WDL Transfer/Handoff Transfer to Ambulatory unit, Phase II Handoff Method Bedside/Face to face, Phone call, Online nursing summary Post-op Transport Stretcher/Gurney Via Patient Transport Milly Powers RN Accompanied by Last Modified By: Milly Powers RN 05/15/22 08:03:25 [facility] IntraOp Dressing and Packing Entry 1 Type Dressing Wound Dressing Item 4x4's, Adaptic, Cristian, Kerlix/Feng Other Comments BETADINE SOLUTION ON FIELD Last Modified By: Milly Powers RN 05/15/22 08:17:31 [facility] IntraOp Fire Risk Assessment Entry 1 Fire Info Surgical Site or 0- No Incision Above the Xyphoid Open O2 Source 1- Yes (Mask or Cannula) Available Ignition 1- Yes (ESU, Laser, Light Source) Fire Risk 2 Assessment Score Fire Score Fire Risk Yes Assessment Complete Fire Risk Milly Powers RN Assessment Verified By Fire Risk 05/15/22 07:59:00 Assessment Verified Date/Time Fire Risk Standard Fire Yes Safety Precautions Followed Last Modified By: Milly Powers RN 05/15/22 08:03:56 [facility] IntraOp General Case House Mover Helper 1 Case Information OR OR 05 [facility] Case Level 1 Room Verified Yes Wound Class 4 - Dirty, Infected Specialty Podiatry Anesthesia Type MAC ASA Class 4 Diagnosis Preop Diagnosis osteomyelitis right foot, pain right foot, ulcer to bone right foot Postop Same As Preop No Postop Diagnosis see surgeon postop notes Wound Class Definitions Last Modified By: Milly Powers RN 05/15/22 08:07:51 [facility] IntraOp Intraoperative Assessment Entry 1 Handoff Method Bedside/Face to face, Online nursing summary Valid History / Yes Physical in Chart Preoperative Yes Checklist Reviewed/Evaluated Allergies Reviewed Yes Patient is Latex No Sensitive Skin Assessment Yes Verified Present Upon IVs Arrival to OR Last Modified By: Milly Powers RN 05/15/22 08:20:08 [facility] IntraOp Intraoperative Assessment Audit 05/15/22 08:20:08 Helper Coordinator: [id number] Modifier: [id number] <+> 1 Patient is Latex Sensitive <+> 1 Valid History / Physical in Chart [facility] IntraOp Intraoperative Equipment Entry 1 Type Equipment Equipment Equipment Waste Management System ID Number [id number] Intraop Monitoring Electrocardiogram Five lead placement (ECG) Electrode Placement Antiembolic Devices Scopes Photo/Video Documentation Last Modified By: Milly Powers RN 05/15/22 08:18:25 [facility] IntraOp Medication Admin Entry 1 Entry 2 Entry 3 Medication/Irrigant vancomycin 1Gm vial - GENTAMYCIN 80MG/2ML SANTIAGO TORIBIO PWD [id number] VIAL - [id number] Combo Med List Time Administered Route of in antibiotic beads in antibiotic beads topical Administration Dose Dose 1 80 1 Unit of Measure gram mg gram Volume Administered By ANGELA GREEN DPM-ANGELA DAVE DPM-ANGELA DAVE DPM-POD Procedure Irrigation Irrigant Volume In Irrigant Volume Out Last Modified By: Milly Powers RN Versteeg, Beckie, RN Versteeg, Beckie, RN 05/15/22 08:33:37 05/15/22 08:33:37 05/15/22 08:33:37 Entry 4 Entry 5 Medication/Irrigant Bupivicaine/Marcaine lidocaine 1% 30ml vial 0.5% 30ml - [id number] - [id number] Combo Med List Time Administered 05/15/22 08:00:00 05/15/22 08:00:00 Route of inj inj Administration Dose Dose 4.5 4.5 Unit of Measure ml ml Volume Administered By ANGELA GREEN DPM-ANGELA DAVE DPM-POD Procedure Irrigation Irrigant Volume In Irrigant Volume Out Last Modified By: Milly Powers RN Versteeg, Beckie, RN 05/15/22 08:35:14 05/15/22 08:35:14 [facility] IntraOp Medication Admin Audit 05/15/22 08:35:14 Helper Coordinator: [id number] Modifier: [id number] <*> Medication/Irrigant Bupivicaine/Marcaine 0.5% 30ml - [id number] 4 <+> Dose 4 <+> Time Administered 4 <+> Unit of Measure 5 <*> Medication/Irrigant lidocaine 1% 30ml vial - [id number] 5 <+> Dose 5 <+> Time Administered 5 <+> Unit of Measure 05/15/22 08:34:18 Helper Coordinator: [id number] Modifier: [id number] <+> 4 Medication/Irrigant <+> 4 Route of Administration <+> 4 Administered By <+> 5 Medication/Irrigant <+> 5 Route of Administration <+> 5 Administered By 05/15/22 08:33:37 Helper Coordinator: [id number] Modifier: [id number] <*> Medication/Irrigant vancomycin 1Gm vial - [id number] 1 <+> Route of Administration 1 <+> Administered By 1 <+> Dose 1 <+> Unit of Measure <+> 2 Medication/Irrigant <+> 2 Route of Administration <+> 2 Administered By <+> 2 Dose <+> 2 Unit of Measure <+> 3 Medication/Irrigant <+> 3 Route of Administration <+> 3 Administered By <+> 3 Dose <+> 3 Unit of Measure [facility] IntraOp Patient Positioning Entry 1 Procedure Toe Amputation Body Position Supine Left Arm Position Tucked and padded at side Right Arm Position Tucked and padded at side Left Leg Position Uncrossed, parallel Right Leg Position Dangling Feet Uncrossed Yes Pressure Points Yes Checked Positioning Devices Safety Strap, Thighs, Pad, Arm, Pad, Elbow, Wedge Device Position PROCEDURE PERFORMED ON STRETCHER Positioned By SHANA EASLEY CRNA, Milly Powers, GRETA, Pablo David RN Position Verified Positioning Yes Verified by Anesthesia Positioning Yes Verified by Surgeon Last Modified By: Milly Powers RN 05/15/22 08:18:58 [facility] IntraOp Sign In Entry 1 Patient, Site, Yes Procedure Identified Surgical Consent Yes Confirmed Relevant Surgical Yes Documents Available Surgical Site Yes Marked by person performing procedure Anesthesia Machine Yes Check Completed Medication Checks Yes Completed Allergies No Airway Difficult Yes Airway/Aspiration Risk Difficult Yes Airway/Aspiration Intervention Equipment Available Blood Loss Risk Yes Blood Loss Yes Intervention Equipment Prepared and Ready Blood Identifiers Not applicable Verified Per Policy Hypothermia Risk Yes Warming Measures Yes Taken Last Modified By: Milly Powers RN 05/15/22 08:19:10 [facility] IntraOp Sign Out Entry 1 RN Confirmation Surgical Yes Procedure(s) Identified Instrument, Sponge Yes and Sharps Counts Correct/Documented Equipment Problems N/A Documented Urinary Catheter N/A Documented in IView Wound Yes classification reviewed, verified and updated post case in both the General Case Data and Procedure segments [place] Patient Yes Recovery Concerns Reviewed with Anesthesia Provider, Surgeon and RN [place] Patient Yes Management Concerns Reviewed with Anesthesia Provider, Surgeon and RN Safety Checklist Yes Elements Complete? RN Sign Out Milly Powers RN Signature RN Sign Out 05/15/22 08:26:00 Signature Date/Time Plan of Care Outcome - [...] objects Last Modified By: Milly Powers RN 05/15/22 08:35:54 [facility] IntraOp Sign Out Audit 05/15/22 08:35:54 Helper Coordinator: [id number] Modifier: [id number] <+> 1 RN Sign Out Signature Date/Time [facility] IntraOp Skin Prep Entry 1 Procedure Toe Amputation Prescribed Yes Pre-Surgical Prep Completed Intraop Prep Integumentary WDL Assessment WDL Prep Agents Betadine scrub, Betadine solution Prep by Milly Powers RN Hair Removal Last Modified By: Milly Powers RN 05/15/22 08:19:24 [facility] IntraOp Surgical Procedures Entry 1 Procedure Toe Amputation Additional (RIGHT PARTIAL 5TH RAY Procedure AMPUTATION) Description Primary Procedure Yes Primary Surgeon ANGELA GREEN DPM-POD Start 05/15/22 08:00:00 Stop 05/15/22 08:20:00 Anesthesia Type MAC Specialty Podiatry Wound Class 3 - Contaminated Last Modified By: Milly Powers RN 05/15/22 08:20:49 [facility] IntraOp Surgical Procedures Audit 05/15/22 08:20:49 Helper Coordinator: [id number] Modifier: [id number] 1 <*> Procedure Toe Amputation 1 <+> Wound Class 05/15/22 08:20:35 Helper Coordinator: [id number] Modifier: [id number] 1 <*> Procedure Toe Amputation 1 <+> Stop 05/15/22 08:19:00 Helper Coordinator: [id number] Modifier: [id number] <+> 1 Start [facility] IntraOp Temp Regulation Devices Entry 1 Temp Regulation Temperature Forced Air Warming Regulation Device device, Warm blankets Temperature Upper body Regulation Site Temperature Device ON Setting Temperature SHANA EASLEY CRNA Regulation Device Applied by Last Modified By: Milly Powers RN 05/15/22 08:19:50 [facility] IntraOP Time Out Entry 1 Procedure to be Toe Amputation Performed Time Out Time Out Pause Time 05/15/22 07:59:00 All activity Yes suspended (unless life threatening [...] 60 Minutes Beta Dmitriy Yes Administered Venous Yes Thromboembolism Prophylaxis Required Anticipated Critical Events Surgeon None expected Anesthesia Provider None expected Nursing Assures Sterility of instruments, Implant Availability Essential Imaging Yes Labeled and Displayed Last Modified By: Milly Powers RN 05/15/22 08:02:08 [facility] IntraOP Time Out Audit 05/15/22 08:02:08 Helper Coordinator: [id number] Modifier: [id number] 1 <+> Beta Dmitriy Administered 1 <+> All activity suspended (unless life threatening emergency) 1 <+> Venous Thromboembolism Prophylaxis Required 1 <+> Antibiotic Prophylaxis Administered Or In Progress Within the Last 60 Minutes 1 <+> Surgeon 1 <+> Anesthesia Provider 1 <+> Nursing Assures 1 <+> Essential Imaging Labeled and Displayed 1 <*> Procedure to be Performed Toe Amputation 1 <+> Team Verbally Confirms Information Case Comments <None> Finalized By: ROBINSON WARREN Document Signatures Signed By: Milly Powers RN 05/15/22 08:36 ROBINSON WARREN 05/20/22 14:13 Unfinalized History Date/Time Username Reason for Unfinalizing Freetext Reason for Unfinalizing 05/20/22 14:11 WATTSDR Correct Billing documented in this encounter Plan of Treatment Not on file documented as of this encounter Visit Diagnoses Not on filedocumented in this encounter
[2025-04-25] MEDS: CEFEPIME HCL 2 GM in 0.9 % SODIUM CHLORIDE 100 ML IV ×3 (00:25→22:45)
[2025-04-25 00:26] LABS: VBG HCO3 23.3 mmol/L (23-30); VBG PCO2 48.3 mmol/L (35-51); VBG PO2 27.8 mmol/L (28-40); VBG Total CO2 24.8 mmol/L (23-27)
[2025-04-25] MEDS: KETOROLAC 30MG/ML VIAL 30 MG IV (00:26)
[2025-04-25] MEDS: METRONIDAZ/SOD CHL 500 MG/100 ML PIGGYBACK 100 MG IV ×3 (00:26→16:31)
[2025-04-25] MEDS: ACETAMINOPHEN 500MG TAB 1000 MG PO (00:26)
[2025-04-25 00:28] LABS: Lactate Venous 3.6 mmol/L (0.4-2.0)
[2025-04-25 00:38] LABS: Basophils # 0.1 K/mm3 (0-0.2); Basophils % 0.5 % (0.1-2.0); Eosinophils # 0.2 Kmm3 (0.0-0.4); Eosinophils % 2.1 % (0.1-12.0); Hemoglobin 15.2 g/dL (12.2-16.2); Immature Granulocytes # 0.04 10^3uL; Immature Granulocytes % 0.4 %; Lymphocytes # 2.3 K/mm3 (0.7-4.5); Lymphocytes % 20.5 % (10-50); Mean Corpuscular HGB Conc 32.3 g/dL (31.8-35.4); Mean Corpuscular Hemoglobin 27.5 pg (27.0-31.2); Mean Platelet Volume 10.7 fl (7.4-10.4); Monocytes # 0.8 K/mm3 (0.1-1.0); Monocytes % 7.3 % (1.7-9.3); Neutrophils # 7.7 K/mm3 (1.8-7.8); Neutrophils % 69.2 % (37.0-80.0); Nucleated Red Blood Cells # 0 10^3/uL; Nucleated Red Blood Cells % 0 %; Platelet Count 324 K/mm3 (142-424); Red Blood Count 5.53 M/mm3 (4.20-5.40); Red Cell Distribution Width 14.2 % (11.5-17.5); Red Cell Distribution Width-SD 43.5 fL; White Blood Count 11.1 K/mm3 (4.8-10.8)
[2025-04-25 00:47] LABS: Alanine Aminotransferase 16 U/L (12-78); Albumin Level 4.2 g/dl (3.5-5.0); Alkaline Phosphatase 114 U/L (38-126); Anion Gap 16.2 mEq/L (5-15); Aspartate Amino Transferase 25 U/L (14-36); Bilirubin,Total 0.9 mg/dl (0.2-1.3); Blood Urea Nitrogen 11 mg/dl (7-17); Calcium 9.5 mg/dl (8.4-10.2); Carbon Dioxide 25 mmol/L (22.0-30.0); Chloride 94 mmol/L (98-107); Creatinine Clearance Estimated 65 mL/min (50-200); Estimated Glomerular Filt Rate 65 ml/min (>60); GFR (African American) 78 ML/MIN (>60); Globulin 4.3 g/dL (1.3-3.2); Potassium 4.2 mmoL/L (3.5-5.1); Sodium 131 mmol/L (136-145); Total Protein,Serum 8.5 g/dl (6.3-8.2)
--- NOTE | 2025-04-25 00:50 | PC.NURSE ---
wound care completed.
[2025-04-25 00:52] LABS: C-Reactive Protein 34.9 mg/L (0-4)
[2025-04-25 00:55] LABS: Glucose 498 mg/dl (74-100)
[2025-04-25] MEDS: VANCOMYCIN HCL 2,500 MG in 0.9 % SODIUM CHLORIDE 500 ML 250 MG IV (01:29)
[2025-04-25] MEDS: OXYCODONE 5MG IMMEDIATE RELEASE TABLET 10 MG PO (01:30)
[2025-04-25] MEDS: humaLOG 100 UNITS/ML 10ML VIAL (SSI) 15 UNIT SUBCUT (01:31)
[2025-04-25] MEDS: LACTATED RINGERS 1000ML 1,000 ML 999 ML IV ×2 (01:46→01:47)
--- NOTE | 2025-04-25 03:28 | PC.WOUNDNOTE ---
right 2nd digit
[2025-04-25 04:08] LABS: POC Glucose,Bedside 304 (70-110)
[2025-04-25 04:28] LABS: Reflex Lactic Add Lactic Reflex
--- NOTE | 2025-04-25 04:29 | EXP.HP ---
History of Present Illness *Admission Date: 04/25/25 *Reason for visit:: DKA *History of present illness: 54-year-old female with presents for right foot pain. She slammed it against a corner of a cabinet within the last couple of days and when she looked at it today she noticed that had a foul smell and the sock was stuck to it. She is concerned it is fractured and or infected. She denies any fevers at home. Reports that it hurts a little bit but she has poor feeling to the foot. Wants to see Dr. Williamson because he usually works on her foot Having significant pain in the foot that was not alleviated in the emergency department. She is requesting increased analgesia Otherwise no other concerns or complaints at this time History: \ stenting in 2014, 2019. She had Takotsubo cardiomyopathy with recovered EF 2020. Historically followed with Dr. Manzano in [place] but has not seen him in over 1 year. history of left BKA, insulin-dependent diabetes, obesity, coronary artery disease EKG nsr no ST deviations History independently obtained. Diagnostic and laboratory evaluation interpreted. Discussed case with ER physician. Reviewed prior records. Foot x-ray 1. Acute fracture dislocation at the 2nd PIP joint with mild bony fragmentation. There is prominent lucency at the site which may be secondary to the osteopenia however cannot exclude an underlying osteomyelitis with pathologic fracture in this patient with history of diabetic feet infections. 2. Soft tissue swelling of the 2nd digit. No definite ulcerations appreciated on this exam. Recommend correlation with physical exam findings. [facility] Disclaimer: The information contained in this section may have been updated after the patient was seen, as this information can be updated by other users. 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 (Updated 04/25/25 @ 03:26 by Abby Espinoza RN) Migraine Osteoarthritis History of diverticulitis History of cataract History of left heart catheterization Recurrent major depression resistant to treatment Blood culture positive for microorganism Anemia HTN (hypertension) Type 2 diabetes mellitus with diabetic neuropathy, with long-term current use of insulin History of myocardial infarction Hyperlipemia CAD (coronary artery disease) Hx MRSA infection Essential hypertension Vitamin D deficiency Surgical History (Updated 04/25/25 @ 03:26 by Abby Espinoza RN) H/O shoulder surgery Hx of BKA History of appendectomy History of cholecystectomy History of hysterectomy History of hand surgery History of foot surgery Social History (Updated 04/25/25 @ 03:26 by Abby Espinoza RN) Smoking Status: Never smoker smoking status stop date: 07/17/2023 second hand exposure: No alcohol intake: never counseling given: No substance use type: denies use counseling given: No current occupational status: disabled Travel in the last 8 weeks?: None adopted: No caregiver/support person: No foster care: No household members: children housing: house lives independently: Yes marital status: number of children: 1 number of grandchildren: 0 education level: high school 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; was a [employer] current occupational exposures/hazards: Yes pets and animals: Yes pets and animals: cat(s) Hx Recent Travel: No sexually active: No caffeine: Yes physical activity: none dyana/pentecostalism: Buddhist special dyana needs: No working smoke detector in home: Yes fire extinguisher in home: Yes carbon monox detector in home: Yes firearms in home: No do you feel safe at home: Yes victim of physical abuse: No victim of emotional abuse: No victim of sexual abuse: No would you like helpful sources: No Have you lived/traveled outside US in past 30 days?: No Contact w/someone who lives/traveled outside US past 30 days?: No Exposure to someone with infectious disease in past 14 days?: No Do you have a fever (greater than 100.4 F or 38 C)?: No Have you tested positive for COVID-19?: No Exposed to someone with COVID-19 in past 14 days?: No Do you have a sore throat?: No Do you have a cough?: No Do you have any weakness?: No Do you have any diarrhea?: No Are you experiencing any unusual bleeding?: No Do you have any muscle aches/pain?: No Do you have any abdominal pain?: No Are you experiencing loss of taste or smell?: No Other 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 Have you received the Flu Vaccine for this season: Yes Have you received the Pneumonia Vaccine: No Review of Systems Review of Systems Review of systems:: pertinent systems reviewed and negative unless documented below Constitutional Constitutional: Reports system reviewed and no additional complaints, except as documented *Cardiovascular Cardiovascular: Reports system reviewed and no additional complaints, except as documented *Respiratory Respiratory: Reports system reviewed and no additional complaints, except as documented *Gastrointestinal Gastrointestinal: Reports system reviewed and no additional complaints, except as documented *Genitourinary Genitourinary: Reports system reviewed and no additional complaints, except as documented *Musculoskeletal Musculoskeletal: Reports system reviewed and no additional complaints, except as documented *Neurologic Neurologic: Reports system reviewed and no additional complaints, except as documented Meds Home Medications and Allergies Home Medications ?Medication ?Instructions ?Recorded ?Confirmed ?Type lorazepam 0.5 mg tablet 0.5 mg PO TID PRN anxiety #90 tabs 07/25/24 04/25/25 Rx ondansetron HCl 4 mg tablet 4 mg PO Q8H PRN Nausea 09/01/24 04/25/25 History aspirin 81 mg chewable tablet 81 mg PO DAILY HEART HEALTH #90 12/12/24 04/25/25 Rx tabs isosorbide mononitrate 60 mg 60 mg PO DAILY #90 tabs 12/12/24 04/25/25 Rx tablet,extended release 24 hr metoprolol tartrate 100 mg tablet 100 mg PO BID #180 tabs 12/12/24 04/25/25 Rx ramipril 5 mg capsule 5 mg PO DAILY #90 caps 12/12/24 04/25/25 Rx rosuvastatin 20 mg tablet 20 mg PO DAILY #90 tabs 12/12/24 04/25/25 Rx spironolactone 25 mg tablet 25 mg PO DAILY #90 tabs 12/12/24 04/25/25 Rx dapagliflozin propanediol 10 mg 10 mg PO DAILY #90 tabs 01/16/25 04/25/25 Rx tablet ranolazine 1,000 mg 1,000 mg PO BID #60 tabs 01/16/25 04/25/25 Rx tablet,extended release,12 hr duloxetine 60 mg capsule,delayed 60 mg PO BID #180 caps 01/31/25 04/25/25 Rx release hydroxyzine HCl 25 mg tablet 25 mg PO HS For sleep #30 tabs 01/31/25 04/25/25 Rx insulin glargine 100 unit/mL (3 50 unit (0.5 mL) SQ BID #12 mL 01/31/25 04/25/25 Rx mL) subcutaneous pen insulin syringe-needle U-100 0.5 #500 ea 01/31/25 04/25/25 Rx mL 31 gauge x 5/16 (Sure Comfort Insulin Syringe) promethazine 25 mg tablet 25 mg PO Q4-6H PRN nausea and 01/31/25 04/25/25 Rx vomiting #20 tabs tramadol 50 mg tablet 50 mg PO Q6H PRN breakthrough 01/31/25 04/25/25 Rx pain, moderate #120 tabs hydrocodone 10 mg-acetaminophen 1 tab PO Q6H PRN pain #120 tabs 02/01/25 04/25/25 Rx 325 mg tablet trazodone 100 mg tablet 100 mg PO HS #90 tabs 02/01/25 04/25/25 Rx ezetimibe 10 mg tablet 10 mg PO HS #90 tabs 02/07/25 04/25/25 Rx pen needle, diabetic 31 gauge x #1,200 ea 02/07/25 04/25/25 Rx 5/16 (Unifine Pentips) rivaroxaban 2.5 mg tablet (Xarelto) 2.5 mg PO BIDWMEAL #60 tabs 02/07/25 04/25/25 Rx insulin aspart U-100 100 unit/mL 18 unit (0.18 mL) SQ TID #45 mL 03/15/25 04/25/25 Rx (3 mL) subcutaneous pen (Novolog FlexPen U-100 Insulin aspart) blood-glucose sensor (Dexcom G7 #3 ea 03/28/25 04/25/25 Rx Sensor device) pregabalin 200 mg capsule 200 mg PO BID #180 caps 04/20/25 04/25/25 Rx New Prescriptions to Start Prescriptions: Allergies Allergy/AdvReac Type Severity Reaction Status Date / Time clopidogrel (From Plavix) Allergy Severe Hives Verified 01/16/25 14:44 amoxicillin (AMOXICILLIN) Allergy Unknown Unknown Verified 01/16/25 14:44 allergy reaction codeine (CODEINE) AdvReac Mild STOMACH Verified 01/16/25 14:44 CRAMPS morphine (MORPHINE) AdvReac Mild STOMACH Verified 01/16/25 14:44 CRAMPS oxycodone (From Percocet) AdvReac Mild STOMACH Verified 01/16/25 14:44 CRAMPS Exam Data for Last 24 hours Vital signs and Labs for Last 24 Hours: Temp Pulse Resp BP Pulse Ox O2 Del Method 98.8 F 86 20 168/81 H 97 Room Air 04/25/25 02:45 04/25/25 02:45 04/25/25 02:45 04/25/25 02:45 04/25/25 02:45 04/25/25 03:00 Laboratory Results - last 24 hr 04/25/25 00:18: WBC 11.1 H, RBC 5.53 H, Hgb 15.2, Hct 47.0, MCV 85.0, MCH 27.5, MCHC 32.3, RDW 14.2, Plt Count 324, MPV 10.7 H, Neut % (Auto) 69.2, Lymph % (Auto) 20.5, [place] % (Auto) 7.3, Eos % (Auto) 2.1, Baso % (Auto) 0.5, Neut # (Auto) 7.7, Lymph # (Auto) 2.3, [place] # (Auto) 0.8, Eos # (Auto) 0.2, Baso # (Auto) 0.1, VBG pH 7.30 L, VBG pCO2 48.3, VBG pO2 27.8 L, VBG HCO3 23.3, VBG Total CO2 24.8, VBG O2 Saturation 52.0, VBG Base Excess -3.0 L, VBG Lactic Acid 3.6 H, Sodium 131 L, Potassium 4.2, Chloride 94 L, Carbon Dioxide 25, Anion Gap 16.2 H, BUN 11, Creatinine 0.90, Estimated Creat Clear 65, Estimated GFR 65, Est GFR ( Amer) 78, Glucose 498 H*, Calcium 9.5, Total Bilirubin 0.9, AST 25, ALT 16, Alkaline Phosphatase 114, C-Reactive Protein 34.9 H, Total Protein 8.5 H, Albumin 4.2, Globulin 4.3 H, Albumin/Globulin Ratio 1.0 L 04/25/25 04:01: POC Glucose 304 H* I & O for Last 24 hours: Intake & Output 04/22/25 04/23/25 04/24/25 04/25/25 23:59 23:59 23:59 23:59 Weight 119.567 kg Microbiology Reports for the Last 24 Hours: Microbiology 04/25/25 00:35 Foot,Right Gram Stain - Final Constitutional Constitutional: no acute distress and obese *Routine HEENT Exam Head: Present normocephalic Eye: Present EOMI and PERRL ENT: Present mucous membranes moist *Routine Neck Exam Neck: Present supple; Absent lymphadenopathy *Routine Respiratory Exam Respiratory: Present CTA bilaterally *Routine Cardiovascular Exam Cardiovascular: Present RRR *Routine Abdominal Exam Abdominal: Present soft and normoactive bowel sounds; Absent tenderness *Routine Rectal Exam Rectal:: deferred *Routine Genitalia Exam Genitalia:: deferred *Routine Extremities Exam Extremities: Absent cyanosis, clubbing or edema *Routine Skin Exam Skin: Present warm; Absent rash *Routine Neurological Exam Neurological: Present alert and oriented X3 Assessment and Plan *Assessment and plan (1) DKA (diabetic ketoacidosis): Status: Acute Category: Medical Code(s): E11.10 - Type 2 diabetes mellitus with ketoacidosis without coma (2) Nausea & vomiting: Status: Acute Qualifiers: Vomiting type: unspecified Qualified Code(s): R11.2 - Nausea with vomiting, unspecified Category: Medical Code(s): R11.2 - Nausea with vomiting, unspecified (3) 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: Status: Chronic Qualifiers: Encounter type: initial encounter Qualified Code(s): S88.112A - Complete traumatic amputation at level between knee and ankle, left lower leg, initial encounter Category: Medical Code(s): S88.112A - Complete traumatic amputation at level between knee and ankle, left lower leg, initial encounter (4) CKD (chronic kidney disease): Status: Chronic Qualifiers: Chronic kidney disease stage: stage 3 (moderate) Chronic kidney disease stage 3 subtype: stage 3a (GFR 45-59) Qualified Code(s): N18.31 - Chronic kidney disease, stage 3a Category: Medical Code(s): N18.9 - Chronic kidney disease, unspecified (5) Diabetic foot: Status: Acute Category: Medical Code(s): E11.8 - Type 2 diabetes mellitus with unspecified complications (6) CAD (coronary artery disease): Status: Chronic Qualifiers: Associated angina: without angina Coronary Disease-Associated Artery/Lesion type: [place] artery [place] vs. transplanted heart: [place] heart Qualified Code(s): I25.10 - Atherosclerotic heart disease of [place] coronary artery without angina pectoris Category: Medical Code(s): I25.10 - Atherosclerotic heart disease of [place] coronary artery without angina pectoris (7) Hyperlipemia: Status: Chronic Qualifiers: Hyperlipidemia type: other hyperlipidemia Qualified Code(s): E78.49 - Other hyperlipidemia Category: Medical Code(s): E78.5 - Hyperlipidemia, unspecified (8) Essential hypertension: Status: Chronic Category: Medical Code(s): I10 - Essential (primary) hypertension Plan Foot wound - Consult Ortho - Does not see podiatry - Symptom management Coronary artery disease - Ranexa -Dapagliflozin - Aspirin -Holding DOAC until foot is fixed Hyperlipidemia - Statin Hypertension Home meds Diabetes SSI Hyponatremia - Monitor Chronic medications will resume following medicine reconciliation
[2025-04-25] MEDS: HYDROCODONE/APAP 5/325 MG TABLET 1 TAB PO ×2 (05:01→10:10)
[2025-04-25 05:04] LABS: Basophils # 0.1 K/mm3 (0-0.2); Basophils % 0.4 % (0.1-2.0); Eosinophils # 0.1 Kmm3 (0.0-0.4); Eosinophils % 0.9 % (0.1-12.0); Hematocrit 38.5 % (37.0-47.0); Immature Granulocytes # 0.04 10^3uL; Immature Granulocytes % 0.4 %; Lymphocytes # 1.9 K/mm3 (0.7-4.5); Lymphocytes % 16.5 % (10-50); Mean Corpuscular HGB Conc 32.7 g/dL (31.8-35.4); Mean Corpuscular Hemoglobin 27.3 pg (27.0-31.2); Mean Corpuscular Volume 83.3 fl (81-99); Mean Platelet Volume 10.4 fl (7.4-10.4); Monocytes # 0.7 K/mm3 (0.1-1.0); Monocytes % 6.5 % (1.7-9.3); Neutrophils # 8.6 K/mm3 (1.8-7.8); Neutrophils % 75.3 % (37.0-80.0); Nucleated Red Blood Cells # 0 10^3/uL; Nucleated Red Blood Cells % 0 %; Platelet Count 245 K/mm3 (142-424); Red Blood Count 4.62 M/mm3 (4.20-5.40); Red Cell Distribution Width 13.8 % (11.5-17.5); Red Cell Distribution Width-SD 41.5 fL; White Blood Count 11.4 K/mm3 (4.8-10.8)
[2025-04-25 05:09] LABS: Hemoglobin 12.7 g/dL (12.2-16.2)
[2025-04-25 05:17] LABS: Acetone, Serum (Rapid) None Detected (None Detect)
[2025-04-25 05:19] LABS: Albumin Level 3.4 g/dl (3.5-5.0); Chloride 100 mmol/L (98-107); Sodium 133 mmol/L (136-145)
[2025-04-25 05:20] LABS: Potassium 4.4 mmoL/L (3.5-5.1)
[2025-04-25 05:21] LABS: Lactic Acid Follow Up (RFLX 1) 1.4 mmol/L (0.7-2.1)
[2025-04-25 05:22] LABS: Alanine Aminotransferase 16 U/L (12-78); Alkaline Phosphatase 90 U/L (38-126); Anion Gap 8.4 mEq/L (5-15); Aspartate Amino Transferase 21 U/L (14-36); Bilirubin,Total 0.3 mg/dl (0.2-1.3); Blood Urea Nitrogen 11 mg/dl (7-17); Carbon Dioxide 29 mmol/L (22.0-30.0); Creatinine Clearance Estimated 74 mL/min (50-200); Estimated Glomerular Filt Rate 74 ml/min (>60); GFR (African American) 90 ML/MIN (>60); Globulin 3.4 g/dL (1.3-3.2); Glucose 290 mg/dl (74-100); Total Protein,Serum 6.8 g/dl (6.3-8.2)
[2025-04-25 05:23] LABS: Magnesium 1.4 mg/dl (1.6-2.3)
[2025-04-25] MEDS: humaLOG 100 UNITS/ML 10ML VIAL (SSI) SUBCUT ×4 (06:55→20:56)
--- NOTE | 2025-04-25 08:59 | EXP.PHA.CONS ---
Pharmacy Consult Date: 04/25/25 Time: 08:59 Referring provider: DR MOREJON Reason for Consult:: VANCOMYCIN DOSING CONSULT Allergies Allergy/AdvReac Type Severity Reaction Status Date / Time clopidogrel (From Plavix) Allergy Severe Hives Verified 01/16/25 14:44 amoxicillin (AMOXICILLIN) Allergy Unknown Unknown Verified 01/16/25 14:44 allergy reaction codeine (CODEINE) AdvReac Mild STOMACH Verified 01/16/25 14:44 CRAMPS morphine (MORPHINE) AdvReac Mild STOMACH Verified 01/16/25 14:44 CRAMPS oxycodone (From Percocet) AdvReac Mild STOMACH Verified 01/16/25 14:44 CRAMPS Home Medications ?Medication ?Instructions ?Recorded ?Confirmed ?Type aspirin 81 mg chewable tablet 81 mg PO DAILY HEART HEALTH #90 12/12/24 04/25/25 Rx tabs isosorbide mononitrate 60 mg 60 mg PO DAILY #90 tabs 12/12/24 04/25/25 Rx tablet,extended release 24 hr metoprolol tartrate 100 mg tablet 100 mg PO BID #180 tabs 12/12/24 04/25/25 Rx ramipril 5 mg capsule 5 mg PO DAILY #90 caps 12/12/24 04/25/25 Rx rosuvastatin 20 mg tablet 20 mg PO DAILY #90 tabs 12/12/24 04/25/25 Rx spironolactone 25 mg tablet 25 mg PO DAILY #90 tabs 12/12/24 04/25/25 Rx dapagliflozin propanediol 10 mg 10 mg PO DAILY #90 tabs 01/16/25 04/25/25 Rx tablet ranolazine 1,000 mg 1,000 mg PO BID #60 tabs 01/16/25 04/25/25 Rx tablet,extended release,12 hr duloxetine 60 mg capsule,delayed 60 mg PO BID #180 caps 01/31/25 04/25/25 Rx release insulin glargine 100 unit/mL (3 50 unit (0.5 mL) SQ BID #12 mL 01/31/25 04/25/25 Rx mL) subcutaneous pen insulin syringe-needle U-100 0.5 #500 ea 01/31/25 04/25/25 Rx mL 31 gauge x 5/16 (Sure Comfort Insulin Syringe) tramadol 50 mg tablet 50 mg PO Q6H PRN breakthrough 01/31/25 04/25/25 Rx pain, moderate #120 tabs trazodone 100 mg tablet 100 mg PO HS #90 tabs 02/01/25 04/25/25 Rx ezetimibe 10 mg tablet 10 mg PO HS #90 tabs 02/07/25 04/25/25 Rx pen needle, diabetic 31 gauge x #1,200 ea 02/07/25 04/25/25 Rx 5/16 (Unifine Pentips) rivaroxaban 2.5 mg tablet (Xarelto) 2.5 mg PO BIDWMEAL #60 tabs 02/07/25 04/25/25 Rx insulin aspart U-100 100 unit/mL 18 unit (0.18 mL) SQ TID #45 mL 03/15/25 04/25/25 Rx (3 mL) subcutaneous pen (Novolog FlexPen U-100 Insulin aspart) blood-glucose sensor (Dexcom G7 #3 ea 03/28/25 04/25/25 Rx Sensor device) pregabalin 200 mg capsule 200 mg PO BID #180 caps 04/20/25 04/25/25 Rx hydroxyzine HCl 25 mg tablet 25 mg PO HS 04/25/25 04/25/25 History New Prescriptions to Start Prescriptions: Height: 1.68 m Weight: 122.833 kg Laboratory Results:: Laboratory Results - last 24 hr 04/25/25 00:18: WBC 11.1 H, RBC 5.53 H, Hgb 15.2, Hct 47.0, MCV 85.0, MCH 27.5, MCHC 32.3, RDW 14.2, Plt Count 324, MPV 10.7 H, Neut % (Auto) 69.2, Lymph % (Auto) 20.5, [place] % (Auto) 7.3, Eos % (Auto) 2.1, Baso % (Auto) 0.5, Neut # (Auto) 7.7, Lymph # (Auto) 2.3, [place] # (Auto) 0.8, Eos # (Auto) 0.2, Baso # (Auto) 0.1, VBG pH 7.30 L, VBG pCO2 48.3, VBG pO2 27.8 L, VBG HCO3 23.3, VBG Total CO2 24.8, VBG O2 Saturation 52.0, VBG Base Excess -3.0 L, VBG Lactic Acid 3.6 H, Sodium 131 L, Potassium 4.2, Chloride 94 L, Carbon Dioxide 25, Anion Gap 16.2 H, BUN 11, Creatinine 0.90, Estimated Creat Clear 65, Estimated GFR 65, Est GFR ( Amer) 78, Glucose 498 H*, Calcium 9.5, Total Bilirubin 0.9, AST 25, ALT 16, Alkaline Phosphatase 114, C-Reactive Protein 34.9 H, Total Protein 8.5 H, Albumin 4.2, Globulin 4.3 H, Albumin/Globulin Ratio 1.0 L 04/25/25 04:01: POC Glucose 304 H* 04/25/25 04:55: WBC 11.4 H, RBC 4.62, Hgb 12.7 D, Hct 38.5, MCV 83.3, MCH 27.3, MCHC 32.7, RDW 13.8, Plt Count 245, MPV 10.4, Neut % (Auto) 75.3, Lymph % (Auto) 16.5, [place] % (Auto) 6.5, Eos % (Auto) 0.9, Baso % (Auto) 0.4, Neut # (Auto) 8.6 H, Lymph # (Auto) 1.9, [place] # (Auto) 0.7, Eos # (Auto) 0.1, Baso # (Auto) 0.1, Sodium 133 L, Potassium 4.4, Chloride 100, Carbon Dioxide 29, Anion Gap 8.4, BUN 11, Creatinine 0.80, Estimated Creat Clear 74, Estimated GFR 74, Est GFR ( Amer) 90, Glucose 290 H D, Lactate 1.4, Calcium 9.0, Phosphorus 3.0, Magnesium 1.4 L, Total Bilirubin 0.3, AST 21, ALT 16, Alkaline Phosphatase 90, Total Protein 6.8, Albumin 3.4 L D, Globulin 3.4 H, Albumin/Globulin Ratio 1.0 L, Acetone Level None detected 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: 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 (Updated 04/25/25 @ 03:26 by Abby Espinoza RN) Migraine Osteoarthritis History of diverticulitis History of cataract History of left heart catheterization Recurrent major depression resistant to treatment Blood culture positive for microorganism Anemia HTN (hypertension) Type 2 diabetes mellitus with diabetic neuropathy, with long-term current use of insulin History of myocardial infarction Hyperlipemia CAD (coronary artery disease) Hx MRSA infection Essential hypertension Vitamin D deficiency Assessment and Plan Assessment and plan all Dx Assessment and Plan for all problems:: Pharmacokinetic dosing service Objective: Age: 54 yo Serum creatinine: 0.8 mg/dL Height: 66.1 Inches Weight (kg): 122.833 Diagnosis: DIABETIC FOOT WOUND Assessment: IBW (kg): 59.53 Dosing wt(kg): 122.833 Estimated Creatinine clearance (ml/min): 105.2 CRCL method: Cockcroft and Gault using adjusted body weight Drug selected: Vancomycin Loading dose (mg): 2500 MG Vd (liters): 86.0 (factor used: 0.7 L/kg) [place] (hr-1): 0.092 Half life (hrs): 7.53 CLvanco=?? 7.912 L/hr Recommended dose: 2000 mg Interval: 12 hrs Infusion time (hrs): 2.0 Predicted peak (mcg/mL): 31.8 Predicted trough (mcg/mL): 12.67 Total body weight is being used for vancomycin dosing. Recommendations: Give Vancomycin 2000 mg q 12 hrs with an expected Cpeak of 31.8 mcg/ml and an expected Ctrough of 12.67 mcg/ml TO START 04/25/25 AT 13:00, PATIENT RECEIVED ONE TIME LOADING DOSE OF VANCOMYCIN 2500 MG IV ONCE 04/25/25 AT 01:29. AUC 0-24 /TIARRA Data: TIARRA 0.5 mcg/mL:?? AUC/TIARRA:? 1011.1 TIARRA 1.0 mcg/mL:?? AUC/TIARRA:? 505.6 --------- TIARRA 1.5 mcg/mL:?? AUC/TIARRA:? 337.0 TIARRA 2.0 mcg/mL:?? AUC/TIARRA:? 252.8 Thank you for the consult
[2025-04-25] MEDS: MORPHINE 4MG/ML SYRINGE 4 MG IV ×3 (09:43→21:02)
--- NOTE | 2025-04-25 09:44 | HMH.OTEV ---
OT Inpatient Evaluation Rehab OT IP Evaluation Start: 04/25/25 08:20 Freq: ONCE Status: Active Protocol: Document 04/25/25 09:35 MAYA (Rec: 04/25/25 09:44 MAYA [id number]) Rehab OT IP Assessment Subjective History Per HPI narrative: 54-year-old female with history of left BKA, insulin- dependent diabetes, obesity, coronary artery disease presents for right foot pain. She slammed it against a corner of a cabinet within the last couple of days and when she looked at it today she noticed that had a foul smell and the sock was stuck to it. She is concerned it is fractured and or infected. She denies any fevers at home. Reports that it hurts a little bit but she has poor feeling to the foot. Subjective I'd like to go to [facility]. Pt was supine in bed when therapy arrived. Pt agreed to participate in initial OT eval this morning. pt orient x3. pt reported they live alone, but their daughter would be there for the summer until fall when she goes back to college. pt reported they live in a single story home with basement, however they do not need to access basement. pt has ramp. pt uses w/c for functional mobility. pt has shower chair and grab bars. pt has bedside commode. pt reports being ind in transfers. pt reports they can drive however their prothesis does not fit so they are unable to drive unless taken to their car. pt reports they are ind in IADL and ADLs. pt agreed to sit on EOB. Pt went from supine to EOB with SBA. pt able to hold static sitting balance well while reporting hx to therapy. pt then went from EOB to supine with SBA. pt left with call light and all other needs within reach. Objective Patient Orientation Person,Place,Birthday Right Upper WFL Extremity Gross ROM Left Upper Extremity WFL Gross ROM Bed Mobility bed mobility-scooting,bed mobility - rolling Assist Level Supervision/Stand by Decrease in Yes Endurance Rehab OT IP prob,goals,plan Problems Date of Evaluation: 04/25/25 Rehab Potential Rehab Potential Good Equipment Needs Assistive Devices Wheelchair Discharge Plan OT Discharge Plan At this time, pt is at baseline and would not benefit from skilled acute OT services and interventions if no further decline. Once DC from [facility], pt could benefit from rehab placement to address functional limitations in occupational performance with safety, endurance and increase of self-care with skilled OT services and interventions. Eval Complexity Eval Charge Codes 97217 - Moderate Complexity PHYSICIAN CERTIFICATION: I certify the specified therapy services for [place] are required, authorized, and reviewed every 30 days.
[2025-04-25] MEDS: PREGABALIN 100MG CAPSULE 200 MG PO ×2 (09:45→20:53)
[2025-04-25] MEDS: MAGNESIUM SULFATE IN WATER 2 GM/50 ML PIGGYBACK IV ×3 (09:46→12:04)
[2025-04-25] MEDS: ISOSORBIDE MONO 60MG TAB.ER.24H 60 MG PO (09:47)
[2025-04-25] MEDS: DAPAGLIFLOZIN PROPANEDIOL 10 MG TABLET PO (09:47)
[2025-04-25] MEDS: RANOLAZINE 500MG ER TABLET 1000 MG PO ×2 (09:47→20:55)
[2025-04-25] MEDS: METOPROLOL TARTRATE 50MG TABLET 100 MG PO ×2 (09:47→20:55)
[2025-04-25] MEDS: ENOXAPARIN 40MG/0.4ML SYRINGE 40 MG SUBCUT ×2 (09:47→20:52)
[2025-04-25] MEDS: SPIRONOLACTONE 25MG TABLET 25 MG PO (09:47)
[2025-04-25] MEDS: ASPIRIN 81MG CHEWABLE TABLET 81 MG PO (09:47)
[2025-04-25] MEDS: DULOXETINE 30MG CAPSULE.DR 60 MG PO ×2 (09:48→20:55)
[2025-04-25] MEDS: INSULIN GLARGINE 100 UNITS/ML 3ML FLEXPEN 40 UNIT SUBCUT (09:48)
--- NOTE | 2025-04-25 09:55 | P.PN_ITS ---
<Statement entered by Levi Soria MD - 04/25/25 16:17> Rounded on patient after nurse practitioner. Personally examined and interviewed patient. Agree with exam findings and care plan as documented. Subjective *Date: 04/25/25 *Time: 16:15 Interval history: Patient sitting up in the bed, no acute distress. She states she has been having pain in her right foot and toes. She takes [place] 10/325 at home, will restart back on her normal dose. She also has morphine 4 mg IV ordered for breakthrough pain. She states she is eating well, last BM was yesterday. Ortho was consulted and should see her today. Medical Exam Vital signs and Labs for Last 24 Hours: Vital Signs Temp Pulse Pulse Resp BP BP Pulse Ox 04/25/25 08:00 98.3 F 98 H 16 150/78 H 96 04/25/25 07:00 04/25/25 05:00 04/25/25 04:00 98.2 F 86 20 140/62 98 04/25/25 03:00 04/25/25 02:45 98.8 F 86 20 168/81 H 97 04/25/25 02:36 98 F 87 20 168/81 H 04/25/25 01:12 04/25/25 01:01 103 H 161/85 H 93 L 04/25/25 00:04 98 F 105 H 20 153/94 H 94 L O2 Del Method 04/25/25 08:00 Room Air 04/25/25 07:00 Room Air 04/25/25 05:00 Room Air 04/25/25 04:00 Room Air 04/25/25 03:00 Room Air 04/25/25 02:45 Room Air 04/25/25 02:36 Room Air 04/25/25 01:12 Room Air 04/25/25 01:01 04/25/25 00:04 Room Air Intake and Output 04/24/25 04/25/25 04/25/25 23:59 07:59 15:59 Output Total 125 / 125 Balance -125 / -125 Output: Output, Urine Amount 125 / 125 Other: Weight 122.833 kg 122.833 kg Patient Weight 04/25/25 23:59 Weight 122.833 kg Laboratory Results - last 24 hr 04/25/25 00:18: WBC 11.1 H, RBC 5.53 H, Hgb 15.2, Hct 47.0, MCV 85.0, MCH 27.5, MCHC 32.3, RDW 14.2, Plt Count 324, MPV 10.7 H, Neut % (Auto) 69.2, Lymph % (Auto) 20.5, [place] % (Auto) 7.3, Eos % (Auto) 2.1, Baso % (Auto) 0.5, Neut # (Auto) 7.7, Lymph # (Auto) 2.3, [place] # (Auto) 0.8, Eos # (Auto) 0.2, Baso # (Auto) 0.1, VBG pH 7.30 L, VBG pCO2 48.3, VBG pO2 27.8 L, VBG HCO3 23.3, VBG Total CO2 24.8, VBG O2 Saturation 52.0, VBG Base Excess -3.0 L, VBG Lactic Acid 3.6 H, Sodium 131 L, Potassium 4.2, Chloride 94 L, Carbon Dioxide 25, Anion Gap 16.2 H, BUN 11, Creatinine 0.90, Estimated Creat Clear 65, Estimated GFR 65, Est GFR ( Amer) 78, Glucose 498 H*, Calcium 9.5, Total Bilirubin 0.9, AST 25, ALT 16, Alkaline Phosphatase 114, C-Reactive Protein 34.9 H, Total Protein 8.5 H , Albumin 4.2, Globulin 4.3 H, Albumin/Globulin Ratio 1.0 L 04/25/25 04:01: POC Glucose 304 H* 04/25/25 04:55: WBC 11.4 H, RBC 4.62, Hgb 12.7 D, Hct 38.5, MCV 83.3, MCH 27.3, MCHC 32.7, RDW 13.8, Plt Count 245, MPV 10.4, Neut % (Auto) 75.3, Lymph % (Auto) 16.5, [place] % (Auto) 6.5, Eos % (Auto) 0.9, Baso % (Auto) 0.4, Neut # (Auto) 8.6 H, Lymph # (Auto) 1.9, [place] # (Auto) 0.7, Eos # (Auto) 0.1, Baso # (Auto) 0.1, Sodium 133 L, Potassium 4.4, Chloride 100, Carbon Dioxide 29, Anion Gap 8.4, BUN 11, Creatinine 0.80, Estimated Creat Clear 74, Estimated GFR 74, Est GFR ( Amer) 90, Glucose 290 H D, Lactate 1.4, Calcium 9.0, Phosphorus 3.0, Magnesium 1.4 L, Total Bilirubin 0.3, AST 21, ALT 16, Alkaline Phosphatase 90, Total Protein 6.8, Albumin 3.4 L D, Globulin 3.4 H, Albumin/Globulin Ratio 1.0 L , Acetone Level None detected I & O for Labs for Last 24 Hours: Intake & Output 04/22/25 04/23/25 04/24/25 04/25/25 23:59 23:59 23:59 23:59 Output Total 125 / 125 Balance -125 / -125 Weight 122.833 kg Microbiology Reports for the Last 24 Hours: Microbiology 04/25/25 00:35 Foot,Right Gram Stain - Final Head: Present atraumatic Neck: Present normal inspection Respiratory: Present CTA bilaterally, able to speak in complete sentences and symmetric chest movement Cardiac: Present Reg Rate and Rhythm GI: Present soft and normal bowel sounds; Absent distention or tenderness Rectal (female): Present deferred (female): Present deferred Extremities: Present normal inspection; Absent edema Comment:: Left leg BKA Skin: Present intact Comment:: Right foot, second toe wound. Assessment and Plan *Assessment and plan (1) Fracture of toe of right foot: Status: Acute Qualifiers: Encounter type: initial encounter Fracture alignment: displaced Fracture type: open Phalanx: middle Category: Medical Code(s): S92.911A - Unspecified fracture of right toe(s), initial encounter for closed fracture (2) Diabetic foot infection: Status: Acute Category: Medical Code(s): E11.628 - Type 2 diabetes mellitus with other skin complications; L08.9 - Local infection of the skin and subcutaneous tissue, unspecified (3) Type 2 diabetes mellitus with vascular disease: Status: Chronic Category: Medical Code(s): E11.59 - Type 2 diabetes mellitus with other circulatory complications (4) 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: Status: Chronic Category: Medical Code(s): E66.813 - Obesity, class 3; E66.2 - Morbid (severe) obesity with alveolar hypoventilation; Z68.41 - Body mass index [BMI] 40.0-44.9, adult Plan Ms. Colon is a 54-year-old who presented to the ER yesterday for right foot pain after hitting her right foot on Thursday. She states that she noticed a foul smell and was having increased pain/discomfort in the right toes. When she took her sock off she realized that it looked like there was infection and possibly a fracture. She was seen in the ER and evaluated with an x-ray which showed a displaced, open, fracture of the right second toe. There is also diabetic ulcerations on the foot and other toes. Dr. Williamson with orthopedics evaluated the patient today and ordered a MRI to evaluate for osteomyelitis in her toes versus in her right foot. #Fracture of toes on right foot #Osteomyelitis #Type 2 diabetes with vascular disease #Class III obesity, BMI 40-45 #Diabetic foot infection ?Ordered vancomycin 2 g every 12 hours, Flagyl 500 mg 3 times daily, cefepime 2 g twice daily, for infection. ?Betadine soaked dressing placed on open fracture and diabetic wounds on right foot. ?Medication ordered for pain control, home medication of [place] 10/325 mg every 6 as needed and morphine 4 mg IV ordered for breakthrough pain. ?Regular monitoring of blood sugars, ACHS sugar checks on a high intensity insulin scale, long-acting glargine ordered per home medication list. ?Patient remains afebrile, hemodynamically stable, white count very slightly elevated at 11.4, mild hyponatremia at 133, potassium normal at 4.4. Kidney function within normal limits creatinine 0.80. Glucose on admission was over 500, current glucose around 290. No signs of DKA noted and lab work. Acetone level none detected. ?Ortho consulted, MRI in the morning, surgical plan to be made following MRI results. #Depression #Chronic pain #Hypertension #Coronary artery disease ?Home medication restarted per JAN ?Vital signs within normal limits, hemodynamically stable. Full code Diabetic diet, n.p.o. at midnight VTE prophylaxis: Lovenox 40 mg SQ twice daily
[2025-04-25 10:09] LABS: Hemoglobin A1C 12.9 % (4.0-6.0)
[2025-04-25] MEDS: LORazepam 0.5MG TABLET 0.5 MG PO ×2 (10:14→16:53)
--- NOTE | 2025-04-25 11:29 | HMH.PTEV ---
Physical Therapy Evaluation Rehab PT IP Evaluation Start: 04/25/25 03:39 Freq: ONCE Status: Active Protocol: Document 04/25/25 10:39 HERBERT (Rec: 04/25/25 11:29 PHORINGRID [id number]) Subjective/History History History 54-year-old female with presents for right foot pain. She slammed it against a corner of a cabinet within the last couple of days and when she looked at it today she noticed that had a foul smell and the sock was stuck to it. She is concerned it is fractured and or infected. She denies any fevers at home. Reports that it hurts a little bit but she has poor feeling to the foot. Wants to see Dr. Williamson because he usually works on her foot. She reports she lives alone, no JAHAIRA, and is generally independent with use of her w/c for all mobility. She has hx of prior BKA on L LE, but is unable to wear her prosthesis at this time due to inability to independently don/doff. Subjective Subjective Pt presents awake, supine in bed, agrees to mobility assessment. She does c/o pain in her R foot this am due to her recent foot injury. [facility] How much help from another person do you currently need... Turning from your None back to your side while in a flat bed without using bedrails? Moving from lying on None back to sitting on the side of a flat bed without using bedrails? Moving to and from a None bed to a chair ( including a wheelchair)? Standing up from a A little chair using your arms? (e.g., wheelchair, bedside chair) Walking in hospital A lot room? Climbing 3-5 steps Total with a railing? Mobility Score 18 Mobility Level [facility] Mobility 6 Walk 10 steps or more Mobility Calculator Rehab PT IP Eval Objective Appearance Patient Behavior Appropriate Patient Orientation Person,Place,Time Difficulty following none instructions Speech Pattern Clear Ambulation Patient Able to No Ambulate Balance Ability to Arise Able, uses arms to help Sitting Balance Steady, safe Dynamic Sitting Good Balance Ability Transfers Bed Transfer Ability Independent Chair Transfer Independent Ability Rehab PT IP prob,goals,plan Problems Date of Evaluation: 04/25/25 Discharge Plan PT Discharge Plan Pt is currently safe to return home once medically stable for d/c. However, she would be most appropriate to undergo intensive inpatient rehab stay to train on using her prosthetic effectively. Acute skilled therapy is not indicated at this time, however. Eval Complexity Eval Charge Codes 38845 - Moderate Complexity PHYSICIAN CERTIFICATION: I certify the specified therapy services for Bee Colon are required, authorized, and reviewed every 30 days.
[2025-04-25 11:57] LABS: POC Glucose,Bedside 297 (70-110)
--- NOTE | 2025-04-25 12:51 | EXP.ORTH.CON ---
History of Present Illness *Admission Date: 04/25/25 *History of present illness: 54-year-old female with presents for right foot pain. She slammed it against a corner of a cabinet within the last couple of days and when she looked at it today she noticed that had a foul smell and the sock was stuck to it. She is concerned it is fractured and or infected. She denies any fevers at home. Reports that it hurts a little bit but she has poor feeling to the foot. Wants to see Dr. Williamson because he usually works on her foot Having significant pain in the foot that was not alleviated in the emergency department. She is requesting increased analgesia Otherwise no other concerns or complaints at this time History: \ stenting in 2014, 2019. She had Takotsubo cardiomyopathy with recovered EF 2020. Historically followed with Dr. Manzano in [place] but has not seen him in over 1 year. history of left BKA, insulin-dependent diabetes, obesity, coronary artery disease EKG nsr no ST deviations History independently obtained. Diagnostic and laboratory evaluation interpreted. Discussed case with ER physician. Reviewed prior records. Workup revealed open wound of her right second toe with infection orthopedics consulted regarding treatment options [facility] Disclaimer: The information contained in this section may have been updated after the patient was seen, as this information can be updated by other users. 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 (Updated 04/25/25 @ 03:26 by Abby Espinoza RN) Migraine Osteoarthritis History of diverticulitis History of cataract History of left heart catheterization Recurrent major depression resistant to treatment Blood culture positive for microorganism Anemia HTN (hypertension) Type 2 diabetes mellitus with diabetic neuropathy, with long-term current use of insulin History of myocardial infarction Hyperlipemia CAD (coronary artery disease) Hx MRSA infection Essential hypertension Vitamin D deficiency Surgical History (Updated 04/25/25 @ 03:26 by Abby Espinoza RN) H/O shoulder surgery Hx of BKA History of appendectomy History of cholecystectomy History of hysterectomy History of hand surgery History of foot surgery Social History (Updated 04/25/25 @ 03:26 by Abby Espinoza RN) Smoking Status: Never smoker smoking status stop date: 07/17/2023 second hand exposure: No alcohol intake: never counseling given: No substance use type: denies use counseling given: No current occupational status: disabled Travel in the last 8 weeks?: None adopted: No caregiver/support person: No foster care: No household members: children housing: house lives independently: Yes marital status: number of children: 1 number of grandchildren: 0 education level: high school 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; 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 current occupational exposures/hazards: Yes pets and animals: Yes pets and animals: cat(s) Hx Recent Travel: No sexually active: No caffeine: Yes physical activity: none dyana/pentecostal: Gnosticist special dyana needs: No working smoke detector in home: Yes fire extinguisher in home: Yes carbon monox detector in home: Yes firearms in home: No do you feel safe at home: Yes victim of physical abuse: No victim of emotional abuse: No victim of sexual abuse: No would you like helpful sources: No Have you lived/traveled outside [place] in past 30 days?: No Contact w/someone who lives/traveled outside [place] past 30 days?: No Exposure to someone with infectious disease in past 14 days?: No Do you have a fever (greater than 100.4 F or 38 C)?: No Have you tested positive for COVID-19?: No Exposed to someone with COVID-19 in past 14 days?: No Do you have a sore throat?: No Do you have a cough?: No Do you have any weakness?: No Do you have any diarrhea?: No Are you experiencing any unusual bleeding?: No Do you have any muscle aches/pain?: No Do you have any abdominal pain?: No Are you experiencing loss of taste or smell?: No Review of Systems *Neurologic Neurologic: Reports system reviewed and no additional complaints, except as documented Meds Home Medications and Allergies Home Medications ?Medication ?Instructions ?Recorded ?Confirmed ?Type aspirin 81 mg chewable tablet 81 mg PO DAILY [facility] #90 12/12/24 04/25/25 Rx tabs isosorbide mononitrate 60 mg 60 mg PO DAILY #90 tabs 12/12/24 04/25/25 Rx tablet,extended release 24 hr metoprolol tartrate 100 mg tablet 100 mg PO BID #180 tabs 12/12/24 04/25/25 Rx ramipril 5 mg capsule 5 mg PO DAILY #90 caps 12/12/24 04/25/25 Rx rosuvastatin 20 mg tablet 20 mg PO DAILY #90 tabs 12/12/24 04/25/25 Rx spironolactone 25 mg tablet 25 mg PO DAILY #90 tabs 12/12/24 04/25/25 Rx dapagliflozin propanediol 10 mg 10 mg PO DAILY #90 tabs 01/16/25 04/25/25 Rx tablet ranolazine 1,000 mg 1,000 mg PO BID #60 tabs 01/16/25 04/25/25 Rx tablet,extended release,12 hr duloxetine 60 mg capsule,delayed 60 mg PO BID #180 caps 01/31/25 04/25/25 Rx release insulin glargine 100 unit/mL (3 50 unit (0.5 mL) SQ BID #12 mL 01/31/25 04/25/25 Rx mL) subcutaneous pen insulin syringe-needle U-100 0.5 #500 ea 01/31/25 04/25/25 Rx mL 31 gauge x 5/16 (Sure Comfort Insulin Syringe) tramadol 50 mg tablet 50 mg PO Q6H PRN breakthrough 01/31/25 04/25/25 Rx pain, moderate #120 tabs trazodone 100 mg tablet 100 mg PO HS #90 tabs 02/01/25 04/25/25 Rx ezetimibe 10 mg tablet 10 mg PO HS #90 tabs 02/07/25 04/25/25 Rx pen needle, diabetic 31 gauge x #1,200 ea 02/07/25 04/25/25 Rx 5/16 (Unifine Pentips) rivaroxaban 2.5 mg tablet (Xarelto) 2.5 mg PO BIDWMEAL #60 tabs 02/07/25 04/25/25 Rx insulin aspart U-100 100 unit/mL 18 unit (0.18 mL) SQ TID #45 mL 03/15/25 04/25/25 Rx (3 mL) subcutaneous pen (Novolog FlexPen U-100 Insulin aspart) blood-glucose sensor (payasUgym G7 #3 ea 03/28/25 04/25/25 Rx Sensor device) pregabalin 200 mg capsule 200 mg PO BID #180 caps 04/20/25 04/25/25 Rx hydrocodone 10 mg-acetaminophen 1 tab PO BIDP PRN Pain 04/25/25 04/25/25 History 325 mg tablet hydroxyzine HCl 25 mg tablet 25 mg PO HS 04/25/25 04/25/25 History New Prescriptions to Start Prescriptions: Allergies Allergy/AdvReac Type Severity Reaction Status Date / Time clopidogrel (From Plavix) Allergy Severe Hives Verified 01/16/25 14:44 amoxicillin (AMOXICILLIN) Allergy Unknown Unknown Verified 01/16/25 14:44 allergy reaction codeine (CODEINE) AdvReac Mild STOMACH Verified 01/16/25 14:44 CRAMPS morphine (MORPHINE) AdvReac Mild STOMACH Verified 01/16/25 14:44 CRAMPS oxycodone (From Percocet) AdvReac Mild STOMACH Verified 01/16/25 14:44 CRAMPS Ortho Exam (Inpt) Vital signs and Labs for Last 24 Hours: Temp Pulse Resp BP Pulse Ox O2 Del Method 98.3 F 98 H 16 150/78 H 96 Room Air 04/25/25 08:00 04/25/25 08:00 04/25/25 08:00 04/25/25 08:00 04/25/25 08:00 04/25/25 08:00 Laboratory Results - last 24 hr 04/25/25 00:18: WBC 11.1 H, RBC 5.53 H, Hgb 15.2, Hct 47.0, MCV 85.0, MCH 27.5, MCHC 32.3, RDW 14.2, Plt Count 324, MPV 10.7 H, Neut % (Auto) 69.2, Lymph % (Auto) 20.5, [place] % (Auto) 7.3, Eos % (Auto) 2.1, Baso % (Auto) 0.5, Neut # (Auto) 7.7, Lymph # (Auto) 2.3, [place] # (Auto) 0.8, Eos # (Auto) 0.2, Baso # (Auto) 0.1, VBG pH 7.30 L, VBG pCO2 48.3, VBG pO2 27.8 L, VBG HCO3 23.3, VBG Total CO2 24.8, VBG O2 Saturation 52.0, VBG Base Excess -3.0 L, VBG Lactic Acid 3.6 H, Sodium 131 L, Potassium 4.2, Chloride 94 L, Carbon Dioxide 25, Anion Gap 16.2 H, BUN 11, Creatinine 0.90, Estimated Creat Clear 65, Estimated GFR 65, Est GFR ( Amer) 78, Glucose 498 H*, Hemoglobin A1c 12.9 H D, Calcium 9.5, Total Bilirubin 0.9, AST 25, ALT 16, Alkaline Phosphatase 114, C-Reactive Protein 34.9 H, Total Protein 8.5 H, Albumin 4.2, Globulin 4.3 H, Albumin/Globulin Ratio 1.0 L 04/25/25 04:01: POC Glucose 304 H* 04/25/25 04:55: WBC 11.4 H, RBC 4.62, Hgb 12.7 D, Hct 38.5, MCV 83.3, MCH 27.3, MCHC 32.7, RDW 13.8, Plt Count 245, MPV 10.4, Neut % (Auto) 75.3, Lymph % (Auto) 16.5, [place] % (Auto) 6.5, Eos % (Auto) 0.9, Baso % (Auto) 0.4, Neut # (Auto) 8.6 H, Lymph # (Auto) 1.9, [place] # (Auto) 0.7, Eos # (Auto) 0.1, Baso # (Auto) 0.1, Sodium 133 L, Potassium 4.4, Chloride 100, Carbon Dioxide 29, Anion Gap 8.4, BUN 11, Creatinine 0.80, Estimated Creat Clear 74, Estimated GFR 74, Est GFR ( Amer) 90, Glucose 290 H D, Lactate 1.4, Calcium 9.0, Phosphorus 3.0, Magnesium 1.4 L, Total Bilirubin 0.3, AST 21, ALT 16, Alkaline Phosphatase 90, Total Protein 6.8, Albumin 3.4 L D, Globulin 3.4 H, Albumin/Globulin Ratio 1.0 L, Acetone Level None detected 04/25/25 11:46: POC Glucose 297 H I & O for Labs for Last 24 Hours: Intake & Output 04/22/25 04/23/25 04/24/25 04/25/25 23:59 23:59 23:59 23:59 Output Total 125 / 125 Balance -125 / -125 Weight 270 lb 12.8 oz Microbiology Reports for the Last 24 Hours: Microbiology 04/25/25 00:35 Foot,Right Gram Stain - Final Head: Present normocephalic and atraumatic Comments:: Right foot: Dressing removed. There is evidence of open wound on the dorsum of the second toe with significant soft tissue swelling purulence from the dorsum of the wound with a foul smell. X-ray findings reviewed. Results Labs 04/25/25 04:55 04/25/25 04:55 Labs: Abnormal lab results 04/25/25 04/25/25 04/25/25 Range/Units 00:18 04:01 04:55 WBC 11.1 H 11.4 H (4.8-10.8) K/mm3 RBC 5.53 H (4.20-5.40) M/mm3 MPV 10.7 H (7.4-10.4) fl Neut # (Auto) 8.6 H (1.8-7.8) K/mm3 VBG pH 7.30 L (7.31-7.41) mmol/L VBG pO2 27.8 L (28-40) mmol/L VBG Base Excess -3.0 L (-2.4-2.3) mmol/L VBG Lactic Acid 3.6 H (0.4-2.0) mmol/L Sodium 131 L 133 L (136-145) mmol/L Chloride 94 L (98-107) mmol/L Anion Gap 16.2 H (5-15) mEq/L Glucose 498 H* 290 H D (74-100) mg/dl POC Glucose 304 H* (70-110) Hemoglobin A1c 12.9 H D (4.0-6.0) % Magnesium 1.4 L (1.6-2.3) mg/dl C-Reactive Protein 34.9 H (0-4) mg/L Total Protein 8.5 H (6.3-8.2) g/dl Albumin 3.4 L D (3.5-5.0) g/dl Globulin 4.3 H 3.4 H (1.3-3.2) g/dL Albumin/Globulin Ratio 1.0 L 1.0 L (1.1-1.8) 04/25/25 Range/Units 11:46 WBC (4.8-10.8) K/mm3 RBC (4.20-5.40) M/mm3 MPV (7.4-10.4) fl Neut # (Auto) (1.8-7.8) K/mm3 VBG pH (7.31-7.41) mmol/L VBG pO2 (28-40) mmol/L VBG Base Excess (-2.4-2.3) mmol/L VBG Lactic Acid (0.4-2.0) mmol/L Sodium (136-145) mmol/L Chloride (98-107) mmol/L Anion Gap (5-15) mEq/L Glucose (74-100) mg/dl POC Glucose 297 H (70-110) Hemoglobin A1c (4.0-6.0) % Magnesium (1.6-2.3) mg/dl C-Reactive Protein (0-4) mg/L Total Protein (6.3-8.2) g/dl Albumin (3.5-5.0) g/dl Globulin (1.3-3.2) g/dL Albumin/Globulin Ratio (1.1-1.8) H & H 04/25/25 04/25/25 Range/Units 00:18 04:55 Hgb 15.2 12.7 D (12.2-16.2) g/dL Hct 47.0 38.5 (37.0-47.0) % All other labs normal. Assessment and Plan *Assessment and plan (1) Fracture of toe of right foot: Status: Acute Qualifiers: Encounter type: initial encounter Fracture alignment: displaced Fracture type: open Phalanx: middle Category: Medical Code(s): S92.911A - Unspecified fracture of right toe(s), initial encounter for closed fracture (2) Diabetic foot infection: Status: Acute Category: Medical Code(s): E11.628 - Type 2 diabetes mellitus with other skin complications; L08.9 - Local infection of the skin and subcutaneous tissue, unspecified Plan Will order MRI scan of the foot with and without contrast to evaluate the isolation of the infection. Hopefully the infection is isolated to the toes if that is the case then debridement toe amputation will be definitive in regards to treatment of the current situation. If there is any proximal spread or infection in the midfoot or ankle area then obviously options are then related to below-knee amputation. This is complicated by her presence of a left-sided below-knee amputation with a poor fitting prosthesis unable to fully ambulate. However depending on MRI scan findings of the right foot will make surgical options clear if amputation of the toe will be adequate in regards to controlling the infection.
[2025-04-25] MEDS: VANCOMYCIN HCL 2,000 MG in 0.9 % SODIUM CHLORIDE 250 ML 125 MG IV (12:54)
--- OUTSIDE RECORDS SUMMARY | 2025-04-25 14:37 | XMS_ITS | Clinical Summary ---
Author Organization [facility] Address [address] [place] [address] Phone Care Team Providers Care Small Offset Printer Name Role Phone Kaity Emerson Unavailable Unavailable Conditions or Problems Problem Name Problem Code Onset Date Status Entry Date Provider Comment Standard Description Annotate Candidiasis , vaginal 06308695 (SNOMED CT) 03/18 Active 03/19 Charlene W Candidiasis of vagina Thrush, oral 88584430 (SNOMED CT) 03/11 Inactive 03/11 Charlene W Candidiasis of mouth Problem excluded fro m report: Other obesity due to excess calories 778150155 (SNOMED CT) 03/15 Active 03/15 Cindi Traore Simple obesity Thrush, oral 42841186 (SNOMED CT) 03/11 Active 03/11 Jeet Rene MD Candidiasis of mouth Thrush, oral 97228058 (SNOMED CT) 03/11 Removed 03/11 Elizabeth Sims Candidiasis of mouth Hx of left TMA 28683318267 231470 (SNOMED CT) 03/04 Active 03/01 Charlene W History of amputation of left lesser toe DM non-pressur e chronic ulcer of left foot, plantar surface, with bone involvement without evidence of necrosis (E11.621) 533261376 (SNOMED CT) 03/01 Inactive 03/01 Luna Hughes Chronic ulcer of foot Chronic osteomyelit is, left foot M86.672 (ICD-10-CM) 03/01 Active 03/01 Luna Hughes Other chronic osteomyelitis, left ankle and foot Coronary artery disease (CAD) 05734935 (SNOMED CT) 03/01 Active 03/01 Luna Hughes Coronary arteriosclerosi s Benign Essential Hypertensio n 9033052 (SNOMED CT) 03/01 Active 03/01 Luna Hughes Benign essential hypertension Cellulitis, foot, left 179101843 (SNOMED CT) 03/01 Active 03/01 Luna Hughes Cellulitis of foot DM Type II E11.9 (ICD-10-CM) 03/01 Active 03/01 Luna Hughes Type 2 diabetes mellitus without complications BMI 45.0-49.9 Z68.42 (ICD-10-CM) 12/14 Resolved 12/14 Luna Hughes Body mass index [BMI] 45.0-49.9, adult MORBID OBESITY 066551248 (SNOMED CT) 12/14 Resolved 12/14 Luna Hughes Morbid obesity TOBACCO USER 057950623 (SNOMED CT) 12/03 Resolved 12/03 Luna Hughes Tobacco user C. DIFF COLITIS A04.7 (ICD-10-CM) 12/03 Resolved 12/03 Luna Hughes Enterocolitis due to Clostridium difficile DM II, UNCONTROLLE D E11.65 (ICD-10-CM) 12/03 Resolved 12/03 Luna Hughes Type 2 diabetes mellitus with hyperglycemia FEVER 248447808 (SNOMED CT) 12/03 Resolved 12/03 Luna Saul Fever VAGINAL CANDIDIASIS 52434189 (SNOMED CT) 12/03 Resolved 12/03 Luna Saul Candidiasis of vagina DIVERTICULI TIS OF SIGMOID COLON 819493849 (SNOMED CT) 12/03 Resolved 12/03 Luna Saul Diverticulitis of sigmoid colon BMI 45.0-49.9 Z68.42 (ICD-10-CM) 12/14 Removed 12/14 Charlene W Body mass index [BMI] 45.0-49.9, adult MORBID OBESITY 699179983 (SNOMED CT) 12/14 Removed 12/14 Charlene W Morbid obesity DM II, UNCONTROLLE D E11.65 (ICD-10-CM) 12/03 Removed 12/03 Charlene W Type 2 diabetes mellitus with hyperglycemia DIARRHEA OF PRESUMED INFECTIOUS ORIGIN 79083211 (SNOMED CT) 12/03 Correction 12/03 Charlene W Diarrhea of presumed infectious origin ABDOMINAL PAIN, LEFT LOWER QUADRANT 345212167 (SNOMED CT) 12/03 Correction 12/03 Charlene W Left lower quadrant pain WEAKNESS 13498570 (SNOMED CT) 12/03 Correction 12/03 Charlene W Asthenia WEIGHT LOSS 552412150 (SNOMED CT) 12/03 Correction 12/03 Charlene W Abnormal weight loss DIARRHEA 30543897 (SNOMED CT) 12/03 Correction 12/03 Charlene W Diarrhea DM TYPE II E11.9 (ICD-10-CM) 12/03 Correction 12/03 Luna Hughes Type 2 diabetes mellitus without complications TOBACCO USER 025505357 (SNOMED CT) 12/03 Removed 12/03 Luna Saul Tobacco user WEIGHT LOSS 440429157 (SNOMED CT) 12/03 Removed 12/03 Luna Saul Abnormal weight loss WEAKNESS 91280360 (SNOMED CT) 12/03 Removed 12/03 Luna Saul Asthenia FEVER 872121405 (SNOMED CT) 12/03 Removed 12/03 Luna Saul Fever C. DIFF COLITIS A04.7 (ICD-10-CM) 12/03 Removed 12/03 Luna Saul Enterocolitis due to Clostridium difficile DIARRHEA OF PRESUMED INFECTIOUS ORIGIN 51981984 (SNOMED CT) 12/03 Removed 12/03 Luna Saul Diarrhea of presumed infectious origin DIARRHEA 60878028 (SNOMED CT) 12/03 Removed 12/03 Luna Saul Diarrhea DIVERTICULI TIS OF SIGMOID COLON 366742156 (SNOMED CT) 12/03 Removed 12/03 Luna Saul Diverticulitis of sigmoid colon ABDOMINAL PAIN, LEFT LOWER QUADRANT 659425951 (SNOMED CT) 12/03 Removed 12/03 Luna Saul Left lower quadrant pain VAGINAL CANDIDIASIS 64219780 (SNOMED CT) 12/03 Removed 12/03 Luna Hughes Candidiasis of vagina Medications Medication Instructions Start Date Stop Date Generic Name NDC Provider DOXYCYCLINE MONOHYDRATE 100 MG CAPS Take one capsule by mouth twice daily DOXYCYCLINE MONOHYDRATE 23722902582 Jeet Rene MD TEFLARO SOLR 600mg IV Q 12hrs x 4wks Bioscrip/Dose, line care, labs [facility] CEFTAROLINE FOSAMIL SOLR 01213999511 Kaity Emerson DOXYCYCLINE MONOHYDRATE 100 MG CAPS Take one capsule by mouth twice daily DOXYCYCLINE MONOHYDRATE 99302683566 Jeet Rene MD FLUCONAZOLE 100 MG TABS Take two tablets by mouth once daily FLUCONAZOLE 21613730944 Jeet Rene MD DIFLUCAN 100 MG TABS Take two tablets by mouth once daily FLUCONAZOLE 23678832375 Jeet Rene MD FLAGYL 500 MG ORAL TABLET Take one tablet by mouth three times daily METRONIDAZOLE 87720604827 Jeet Rene MD ONDANSETRON 4 MG TBDP Take one tablet by mouth every 12 hours ONDANSETRON 48459796261 Jeet Rene MD TEFLARO SOLR 600mg IV Q 12hrs x 4wks Bioscrip/Dose, line care, labs [facility] CEFTAROLINE FOSAMIL SOLR 29246114669 Kaity Ki DAPTOMYCIN SOLR 750mg IV daily x 6wks HH Bioscrip/Dose, line care labs LID DAPTOMYCIN SOLR 69185794876 Kaity Ki CEFEPIME HCL SOLN 2gm IV q 12hrs x 6wks HH Bioscrp, Dose, line care, labs LID CEFEPIME HCL SOLN 47775486383 Kaity Emerson FLUCONAZOLE 200 MG TABS Take one tablet by mouth daily FLUCONAZOLE 58213587351 Jeet Rene MD CEFEPIME HCL SOLN 2gm IV q 12hrs x 6wks Bioscrp, Dose, line care, labs [facility] CEFEPIME HCL SOLN 12682362332 Kaity Emerson DAPTOMYCIN SOLR 750mg IV daily x 6wks Bioscrip/Dose, line care labs [facility] DAPTOMYCIN SOLR 10732145855 Kaity Emerson FLAGYL 500 MG ORAL TABLET Take one tablet by mouth three times daily METRONIDAZOLE 49431434732 Jeet Rene MD TETRACYCLINE HCL 500 MG CAPS TETRACYCLINE HCL 30705723777 Vivek D HYDROMORPHONE HCL 2 MG TABS TAKE ONE TABLET BY MOUTH EVERY 4 HOURS NEEDED FOR moderate TO SEVERE pain MAY CAUSE DROWSINESS HYDROMORPHONE HCL 07562190869 Vivek D ONETOUCH ULTRA STRP USE 1 STRIP TO CHECK GLUCOSE THREE TIMES DAILY GLUCOSE BLOOD 86618063192 Vivek Thomson LACTINEX ORAL TABLET CHEWABLE one by mouth three times a day LACTOBACILLUS 82491481399 Jeet Rene MD FLAGYL 500 MG ORAL TABLET one by mouth three times a day x 2 weeks METRONIDAZOLE 21066799609 Jeet Rene MD LEVAQUIN 750 MG ORAL TABLET one by mouth daily x 2 weeks LEVOFLOXACIN 27491962563 Jeet Rene MD INVANZ (IJ) SOLUTION RECONSTITUTED 1 gm IV daily OPAT ERTAPENEM SODIUM SOLR 87402651687 Jeet Rene MD LANTUS 100 UNIT/ML SOLN INSULIN GLARGINE 56795963839 Aury Z DIFLUCAN TABLET FLUCONAZOLE TABS 10438959357 Aury Z INVANZ (IJ) SOLUTION RECONSTITUTED 1 gm IV daily OPAT ERTAPENEM SODIUM SOLR 35329317442 Peggy Sharma MD DIFLUCAN 200 MG TABS take one daily for yeast infection FLUCONAZOLE 19992793318 Peggy Sharma MD LORTAB 10-500 MG ORAL TABLET HYDROCODONE-ACET AMINOPHEN 41093871433 Peggy Sharma MD NORCO TABS HYDROCODONE-ACET AMINOPHEN TABS 50453541401 Peggy Sharma MD LYRICA CAPS PREGABALIN CAPS 01117830292 Jahaira Merlos CYMBALTA CPEP DULOXETINE HCL CPEP 78106773332 Jahaira G LASIX TABS FUROSEMIDE TABS 05576586503 Jahaira G NORCO TABS HYDROCODONE-ACET AMINOPHEN TABS 09112527004 Jahaira Merlos ATENOLOL TABS ATENOLOL TABS 80123168696 Jahaira Merlos GLYBURIDE TABS GLYBURIDE TABS 26311145779 Jahaira Merlos INVANZ (IJ) SOLUTION RECONSTITUTED ERTAPENEM SODIUM SOLR 14197963809 Jahaira Merlos DIFLUCAN TABLET FLUCONAZOLE TABS 02965274164 Jahaira Merlos Medications Administered No information available. [...] Report: CK CPK 28 U/L 20-180 Creatine jea se [Enzymatic activity/volume] in Serum or Plasma [...] Documenta tion of current medications (procedure) DIET CROP DUSTER HELPER yes Dietary management education, guidance, and counseling [...] CPT-wclc Weekly Central Line Care 202 11/21/06 CPT-33324 CMP [id number] CBC with Differential 2020 CPT-07642 C- reactive protein CPT-70176 Sedimentation Rate (ESR) 202 11/21/06 CPT-ca Continue IV antibiotics 2020 CPT-Cooral Continue oral antibiotics 20 05/04/24 CPT-cwl Weekly Labs (Continue) 04/08 CPT-wclc Weekly Central Line Care 202 11/20/23 CPT-75179 CMP CPT-55726 CBC w/o Differential [id number], [id number] CPK CPT-22342 Sedimentation Rate (ESR) 202 11/20/23 CPT-04441 C- reactive protein CPT-13992 CMP CPT-68348 C- reactive protein CPT-47256 Sedimentation Rate (ESR) 202 11/20/09 CPT-ca Continue IV antibiotics 2020 CPT-wpc Weekly PICC Line Care 03/18 CPT-cwl Weekly Labs (Continue) 03/18 CPT-93049 CMP CPT-92167 CBC w/o Differential [id number], [id number] CPK CPT-43704 Sedimentation Rate (ESR) 11/20/02 CPT-ca Continue IV antibiotics 2020 CPT-wpc Weekly PICC Line Care 03/11 CPT-cwl Weekly Labs (Continue) 03/11 CPT-13057 CMP CPT-08097 CBC w/o Differential [id number], [id number] CPK CPT-98459 Sedimentation Rate (ESR) 202 11/19/25 CPT-kayli New IV antibiotic CPT-cwl Weekly Labs (Continue) 03/04 CPT-wclc Weekly Central Line Care 202 11/19/18 CPT-06311 CMP CPT-93470 CBC w/o Differential 19 CPT-19052 C- reactive protein CPT-72150 Sedimentation Rate (ESR) 202 11/19/18 CPT-sl STAT Labs CPT-DC Discontinue IV antibiotics 2 CPT-07578 BMP CPT-42755 CBC w/o Differential CPT-kayli New IV antibiotic CPT-J1335 Ertapenem CPT-16838 CMP CPT-44896 CBC with Differential 12/03 CPT-cdpcr C-Diff PCR [...]
--- OUTSIDE RECORDS SUMMARY | 2025-04-25 14:37 | XMS_ITS | Encounter Summary ---
Author Organization [employer] Address [address] [place] [address] Care Team Providers Care Journalism Intern Name Role Phone Unavailable Primary Care Provider Unavailabl e Encounter Details Date Type Department Care Team (Late st Contact Info) Description 05/15/2022 Transcribed Document [facility] [place] [address] [place] [address] ProviderEvangelista MD [address] [place] [address] Social History Tobacco Use Types [...] Evangelista ProviderMD - 05/15/2022 8:00 AM CDT [facility] Main OR PostOp Summary Primary Physician: ANGELA GREEN DPM-POD Finalized Date/Time: 05/15/22 09:37:38 Pt. Name: BEE COLON/Sex: 1970 Female Med Rec #: [id number] Physician: ANGELA GREEN DPM-POD Financial #: [id number] Pt. Type: O Room/Bed: /12 Admit/Disch: 05/15/22 06:55:00 - Institution: [facility] Main OR PostOp Case Times Entry 1 In PACU II 05/15/22 08:29:00 Ready for PACU II 05/15/22 09:35:00 Discharge Discharge from PACU 05/15/22 09:35:00 II Last Modified By: DEMETRICE PEREZ, RN 05/15/22 09:37:34 [facility] Main OR PostOp Case Times Audit 05/15/22 09:37:34 Filler Picker: [email or web address] Modifier: [email or web address] <+> 1 Ready for PACU II Discharge <+> 1 Discharge from PACU II Finalized By: DEMETRICE PEREZ, RN Document Signatures Signed By: DEMETRICE PEREZ, RN 05/15/22 09:37 Electronically signed by Atul [facility] Conversion Digital Media Manager Cerner at 03/05/2023 6:53 PM CDT documented in this encounter Plan of Treatment Not on file documented as of this encounter Visit Diagnoses Not on filedocumented in this encounter
--- OUTSIDE RECORDS SUMMARY | 2025-04-25 14:37 | XMS_ITS | Encounter Summary ---
Author Organization [email or web address] Address [address] [place] [address] Care Team Providers Care Clinical Editor Name Role Phone Unavailable Primary Care Provider Unavailabl e Encounter Details Date Type Department Care Team (Late st Contact Info) Description 12/17/2019 Transcribed Document [facility] [place] Medicine [facility] [place] [address] ProviderEvangelista MD [address] [place], [place] [id number] Social History Tobacco Use Types Packs/Day Years Used Date Smoking Tobacco: Never Assessed Comments Unknown Sex and Gender Information Value Date Recorded Sex Assigned at Not on file Legal Sex Female 3:10 PM CDT Gender Identity Not on file Sexual Orientation Not on file documented as of this encounter Miscellaneous Notes * [employer]ner Conversion Note - Evangelista Carbone MD - 12/17/2019 1:14 PM EQUIPMENT VALIDATION SPECIALIST Patient: BEE COLON Age: 49 Years Sex: [...] peripheral diabetic neuropathy. She has been utilizing [place] 10/325 mg four times daily dosing, Tramadol [...]
--- OUTSIDE RECORDS SUMMARY | 2025-04-25 14:37 | XMS_ITS | Encounter Summary ---
Author Organization [employer] [facility] [employer] Address [address] [place] [address] Care Team Providers Care Early Childhood Education Instructor Name Role Phone Unavailable Primary Care Provider Unavailabl e Encounter Details Date Type Department Care Team (Late st Contact Info) Description 05/15/[address] [facility] [place] Family Medicine [address] [place] [address] ProviderEvangelista MD [address] [place] [address] Social History Tobacco Use Types [...] Evangelista ProviderMD - 05/15/2022 8:00 AM CDT [facility] Main OR Preop Summary Primary Physician: ANGELA GREEN DPM-POD Finalized Date/Time: 05/15/22 13:36:27 Pt. Name: BEE COLON/Sex: 1970 Female Med Rec #: [id number] Physician: ANGELA GREEN DPM-POD Financial #: [id number] Pt. Type: O Room/Bed: Admit/Disch: 05/15/22 06:55:00 - Institution: [facility] PreOp Case Times Entry 1 In Preop 05/15/22 05:45:00 Ready for Holding n/a Room Patient Ready for 05/15/22 07:15:00 Surgery Patient Out of Preop 05/15/22 07:38:00 Patient Out of n/a Holding Room Last Modified By: Juana Mclaughlin RN 05/15/22 11:19:58 [facility] PreOp Case Times Audit 05/15/22 13:36:25 Behavioral Sciences Department Chair: [id number] Modifier: [id number] <+> 1 In Preop 05/15/22 11:19:58 Behavioral Sciences Department Chair: [id number] Modifier: [id number] <+> 1 Patient Out of Preop Finalized By: Juana Mclaughlin, RN Document Signatures Signed By: Juana Mclaughlin RN 05/15/22 13:36 documented in this encounter Plan of Treatment Not on file documented as of this encounter Visit Diagnoses Not on filedocumented in this encounter
--- OUTSIDE RECORDS SUMMARY | 2025-04-25 14:37 | XMS_ITS | Encounter Summary ---
Author Organization [employer] Address [address] [place] [address] Care Team Providers Care Automotive Collision Repair Instructor Name Role Phone Unavailable Primary Care Provider Unavailabl e Encounter Details Date Type Department Care Team (Late st Contact Info) Description 03/21/2020 Transcribed Document [facility] [place] Family Medicine Replaced by [facility] [place] [address] ProviderEvangelista MD [address] [place], [place] [id number] Social History Tobacco Use Types Packs/Day Years [...] p.o. q h.s., Tramadol 50 mg q.i.d., [place] 10 mg q 6 h. She denies any side effects. She is in agreement with the above plan. We will see her back in follow-up in two months. Anahy Fraser M.D. BO/maurice documented in this encounter Plan of Treatment Not on file documented as of this encounter Visit Diagnoses Not on filedocumented in this encounter
--- OUTSIDE RECORDS SUMMARY | 2025-04-25 14:37 | XMS_ITS | Encounter Summary ---
Author Organization [employer] Address [address] [place] [address] Care Team Providers Care Wood Router Hand Name Role Phone Unavailable Primary Care Provider Alison e Encounter Details Date Type Department Care Team (Late st Contact Info) Description 05/15/2022 Transcribed Document [facility] [place] [facility] [place] [address] ProviderEvangelista MD [address] [place] [address] Social History Tobacco Use Types [...] 08:00:00 (05/15/22 08:19:00) Electronically signed by Atul [facility] Conversion Economic Specialist Cerner at 03/05/2023 6:46 PM CDT documented in this encounter Plan of Treatment Not on file documented as of this encounter Visit Diagnoses Not on filedocumented in this encounter
--- OUTSIDE RECORDS SUMMARY | 2025-04-25 14:37 | XMS_ITS | Encounter Summary ---
Author Organization [employer] Address [address] [place] [address] Care Team Providers Care American History Professor Name Role Phone Unavailable Primary Care Provider Unavailabl e Encounter Details Date Type Department Care Team (Late st Contact Info) Description 05/15/2022 Transcribed Document [facility] [place] [address] [place] [address] ProviderEvangelista MD [address] [place] [address] Social History Tobacco Use Types [...] these instructions at home: Medicines ??? Take jjko-qco-xpfrzrm and prescription medicines only as told by [...] keep your urine pale yellow. ? Take rjnk-yjw-bawtxdq or prescription medicines. ? Eat foods that [...] and water are not available, use hand meeting specialist. ? Change your dressing as told by [...] provider. Document Revised: 02/22/2020 Document Reviewed: 10/25/2019 [employer] Patient Education ? 2020 [employer] Procedures Outpatient Surgery, Adult, Care After [...] children on your own. Medicines ??? Take ittk-yqq-sypwvmy and prescription medicines only as told by [...] keep your urine pale yellow. ? Take tixg-gee-odxouis or prescription medicines. ? Eat foods that [...] added (diluted fruit juice). ? Eat bland, ctvc-xo-bgtvzg foods in small amounts as you are [...] and water are not available, use hand meeting specialist. ? Change your dressing as told by [...] drink clear fluids slowly and eat bland, ggks-ez-svsyby foods in small amounts. ??? Ask your health care provider what activities are safe for you. This information is not intended to replace advice given to you by your health care provider. Make sure you discuss any questions you have with your health care provider. Document Revised: 03/01/2021 Document Reviewed: 08/23/2020 [employer] Patient Education ? 2020 [employer] documented in this encounter Plan of Treatment Not on file documented as of this encounter Visit Diagnoses Not on filedocumented in this encounter
--- OUTSIDE RECORDS SUMMARY | 2025-04-25 14:37 | XMS_ITS | Encounter Summary ---
Author Organization [employer] Address [address] [place] [address] Care Team Providers Care Poultry Hanger Name Role Phone Unavailable Primary Care Provider Unavailabl e Encounter Details Date Type Department Care Team (Late st Contact Info) Description 05/15/2022 Transcribed Document [facility] [place] [facility] [place] [address] ProviderEvangelista MD [address] [place] [address] Social History Tobacco Use Types [...] AM CDT DATE OF PROCEDURE: 05/15/2022 Location: [facility] Patient : 1970 SURGEON: Sam Hamlin DPM HUMAN SERVICES INSTRUCTOR: None. PREOPERATIVE DIAGNOSES: 1. Osteomyelitis, right foot. [...] patient is at risk for further amputation. /[id number] JESUS Cassidy/RILEY / RADHA / MODL /[id number] documented in this encounter Plan of Treatment Not on file documented as of this encounter Visit Diagnoses Not on filedocumented in this encounter
--- OUTSIDE RECORDS SUMMARY | 2025-04-25 14:38 | XMS_ITS | Encounter Summary ---
Author Organization [employer] Address [address] [place] [address] Care Team Providers Care Medical Sales Consultant Name Role Phone Unavailable Primary Care Provider Unavailabl e Encounter Details Date Type Department Care Team (Late st Contact Info) Description 03/20/2022 Transcribed Document [facility] [place] Family Medicine [facility] [place] [address] ProviderEvangelista MD [address] [place] [address] Social History Tobacco Use Types [...] Patient : 1970 SURGEON: Sam Hamlin DPM INSPECTOR: None. PREOPERATIVE DIAGNOSES: 1. Painful retained internal [...] the office in the next 48-72 hours. /[id number] JESUS Cassidy/RILEY / / MODL /[id number] documented in this encounter Plan of Treatment Not on file documented as of this encounter Visit Diagnoses Not on filedocumented in this encounter
--- OUTSIDE RECORDS SUMMARY | 2025-04-25 14:38 | XMS_ITS | Encounter Summary ---
Author Organization [employer] Address [address] [place] [address] Care Team Providers Care Medical Office Representative Name Role Phone Unavailable Primary Care Provider Unavailabl e Encounter Details Date Type Department Care Team (Late st Contact Info) Description 08/12/2019 Transcribed Document [facility] [place] [facility] [place] [address] ProviderEvangelista MD [address] [place] [address] Social History Tobacco Use Types [...]
--- OUTSIDE RECORDS SUMMARY | 2025-04-25 14:38 | XMS_ITS | Encounter Summary ---
Author Organization [employer] i[employer] Address [address] [place] [address] Care Team Providers Care Manager Of Application Development Name Role Phone Unavailable Primary Care Provider Unavailabl e Encounter Details Date Type Department Care Team (Late st Contact Info) Description 05/13/2022 Transcribed Document [facility] [place] [address] [place] [address] ProviderEvangelista MD [address] [place] [address] Social History Tobacco Use Types [...] Tartrate: 100 mg, Oral, BID, 0 Refill(s) [place] 10 mg-325 mg oral tablet: 1 Tab, [...] BID Metoprolol Tartrate 100 mg, Oral, BID [place] 10 mg-325 mg oral tablet 1 Tab, PRN, Oral, Q6H ramipril 5 mg, Oral, Daily spironolactone 25 mg, Oral, Daily traZODone 100 mg, Oral, At Bedtime Victoza 1.8 mg, SubCutaneous, Daily Xarelto 2.5 mg, Oral, BID Zetia 10 mg, Oral, At Bedtime , No qualifying data available Problem list: All Problems 6-Stented coronary artery / SNOMED CT 5801564287 / Confirmed Spinal cord stimulator right hip :check w/ pt re on/off status / SNOMED CT 468965172 / Confirmed Peripheral vascular disease / SNOMED CT 0673734170 / Confirmed Hypertension / SNOMED CT 52210648 / Confirmed History of obstructive sleep apnea / IMO 71337237 / Confirmed Foot pain, right / SNOMED CT 580504543 / Confirmed Fibromyalgia / SNOMED CT 07212052 / Confirmed DM - wears Dexcom / SNOMED CT 893785405 / Confirmed Diabetic neuropathy / SNOMED CT 828871092 / Confirmed Coronary artery disease / SNOMED CT 5638422192 / Confirmed Chronic back pain / SNOMED CT 074904703 / Confirmed At risk for sleep apnea / IMO 43735697 / Confirmed Angina / SNOMED CT 584720478 / Confirmed -2020 Non-ST elevation DE (NSTEMI) x 2 / SNOMED CT 2701921106 / Confirmed Canceled: Myocardial infarction / SNOMED CT 47774475 Canceled: Cellulitis of foot, left / SNOMED CT 972533962 s/p left foot transmetatarsal amp Canceled: Unsteady gait-uses cane / SNOMED CT 82886469 , Active Problems (14) -2020 Non-ST elevation DE (NSTEMI) x 2 6-Stented coronary artery Angina [...] been selected or recorded. Procedure history: Hysterectomy (495987344). right foot pinning. lap with laser x3. rt knee scope x2. left knee scope. right hand CMC x4. left hand CMC x1. all toes amputated from left foot. left shoulder scope. right shoulder scope. Cholecystectomy (05359174). Appendectomy (368081695). spinal cord stimulator. Cardiac catheterization (87306254). Comments: 03/19/2022 12:20 EDT - Ale Gresham [...] EDT Height Source Measured Height Entry Format [place] Height/Length, TURKMEN (ft) 0 ft Height/Length TURKMEN 66.5 Inch CLINICALHEIGHT 168.91 cm [place] Body Weight 60 kg Weight Source Standing scale Weight Entry Format [place] Weight Maldivian lb 290 lb CLINICALWEIGHT 131.82 kg Body [...] ray 2. DM 3. ANA 4. CAD, DE 5. back pain 6. fibromyalgia 7. neuropathy 8. HTN 9. PVD. Condition: Stable. pt to proceed with surgery, DC home same day documented in this encounter Plan of Treatment Not on file documented as of this encounter Visit Diagnoses Not on filedocumented in this encounter
--- OUTSIDE RECORDS SUMMARY | 2025-04-25 14:38 | XMS_ITS | Encounter Summary ---
Author Organization [employer] Address [address] [place] [address] Care Team Providers Care Collection Supervisor Name Role Phone Unavailable Primary Care Provider Unavailabl e Encounter Details Date Type Department Care Team (Late st Contact Info) Description 07/11/2021 Transcribed Document [facility] [place] [facility] [place] [address] ProviderEvangelista MD [address] [place] [address] Social History Tobacco Use Types [...] Evangelista ProviderMD - 07/11/2021 11:07 AM CDT [facility] Main OR IntraOp Summary Primary Physician: MANI THOMAS MD-SUR Finalized Date/Time: 07/14/21 16:36:09 Pt. Name: BEE COLON/Sex: 1970 Female Med Rec #: [id number] Physician: MANI THMOAS MD-SUR Financial #: [id number] Pt. Type: O Room/Bed: Admit/Disch: 07/11/21 08:06:00 - 07/11/21 12:25:00 Institution: [facility] IntraOp Case Attendance Entry 1 Entry 2 Entry 3 Case Attendee MANI THOMAS MD-SUR BOWEN, JON B, MD-Purvi Quick CRNA Role Performed Surgeon/Proceduralist, Anesthesiologist of VERIFICATION CLERK/Nurse Pediatric Surgeon First Record Time In 07/11/21 10:47:00 07/11/21 10:47:00 07/11/21 10:47:00 Time Out 07/11/21 11:25:00 07/11/21 11:25:00 07/11/21 11:25:00 Procedure Wound Debridement Lower Wound Debridement Lower Wound Debridement Lower Extremity Extremity Extremity Other Attendee INVENTORY CONTROL ASSISTANT Superficial Wound Closed By: Last Modified By: Zee Delgadillo RN Napier, Elizabeth A, Zee Gtz RN 07/11/21 11:30:29 07/11/21 11:30:29 07/11/21 11:30:29 Entry 4 Entry 5 Entry 6 Case Attendee ELAINE BRUCE ST Zhurko, Timofey, Zee Betancourt RN Tech Role Performed Scrub, First Scrub, First Elevated Work Platform Operator, First Time In 07/11/21 10:47:00 07/11/21 [...] Entry 8 Case Attendee SINA JOHNSON, RN Sehrwin Gage, RN Role Performed Elevated Work Platform Operator, Second Elevated Work Platform Operator, Third Time In 07/11/21 10:47:00 07/11/21 10:47:00 Time Out 07/11/21 11:25:00 07/11/21 11:25:00 Procedure Wound Debridement Lower Wound Debridement Lower Extremity Extremity Other Attendee ORIENTATION Superficial Wound Closed By: Last Modified By: Zee Delgadillo RN Napier, Elizabeth A, RN 07/11/21 11:30:29 07/11/21 11:30:[address] [facility] IntraOp Case Attendance Audit 07/11/21 11:30:29 Paleobotanist: [email or web address] Modifier: EANAPIER 1 <+> Time Out [...] Procedure Wound Debridement Lower Extremity 07/11/21 11:08:19 Paleobotanist: JAIRO Modifier: EANAPIER <+> 6 Case Attendee <+> 6 Role Performed <+> 6 Procedure <+> 7 Case Attendee <+> 7 Role Performed <+> 7 Procedure <+> 8 Case Attendee <+> 8 Role Performed <+> 8 Procedure <+> 8 Other Attendee 07/11/21 10:51:13 Paleobotanist: JAIRO Modifier: EANAPIER 5 <+> Case Attendee 5 <*> Procedure Wound Debridement Lower Extremity 07/11/21 10:49:29 Paleobotanist: KURT Modifier: EANAPIER 1 <+> Time In 1 <*> Procedure Wound Debridement Lower Extremity 2 <+> Time In 2 <*> Procedure Wound Debridement Lower Extremity 3 <+> Time In 3 <*> Procedure Wound Debridement Lower Extremity 4 <+> Time In 4 <*> Procedure Wound Debridement Lower Extremity 5 <+> Time In 5 <*> Procedure Wound Debridement Lower Extremity [facility] IntraOp Case Times Entry 1 Patient In Room Time 07/11/21 10:47:00 Out Room Time 07/11/21 11:25:00 Anesthesia Start Time 07/11/21 10:47:00 Stop Time 07/11/21 11:25:00 Surgery / Procedure Times Start Time 07/11/21 11:07:00 Stop Time 07/11/21 11:18:00 Last Modified By: Zee Delgadillo RN 07/11/21 11:30:[address] [facility] IntraOp Case Times Audit 07/11/21 11:30:15 Paleobotanist: EANAPIER Modifier: EANAPIER <+> 1 Out Room Time <+> 1 Stop Time 07/11/21 11:18:34 Paleobotanist: EANAPIER Modifier: EANAPIER <+> 1 Stop Time 07/11/21 11:06:32 Paleobotanist: EANAPIER Modifier: EANAPIER <+> 1 Start Time [facility] IntraOp Cautery Entry 1 ESU Identification Cautery Type Monopolar ESU ID Number [id number] ID Type Hospital Number Cautery Settings Cut Setting 35 Coag Setting 35 ESU Grounding Pad Ground Pad Type Adult Grounding Pad Site Right thigh Grounding Pad Site Warm, dry and intact Skin Condition Before Cautery Last Modified By: Zee Delgadillo RN 07/11/21 11:06:[address] [facility] IntraOp Communication Entry 1 Communication To Other Comment POST OP Communication By SINA JOHNSON RN Date and Time 07/11/21 11:16:00 Last Modified By: Zee Delgadillo RN 07/11/21 11:16:[address] [facility] IntraOp Counts Verification Entry 1 Procedure Wound Debridement Lower Extremity Count Info Count Type Sponge, Sharps, Miscellaneous Counts Verification Baseline/pre-procedure Sequence Count Results Not Applicable Counts Performed By Count Performed By ELAINE BRUCE ST (Scrub) Count Performed By SINA JOHNSON RN (RN) Last Modified By: Zee Delgadillo RN 07/11/21 11:09:[address] [facility] IntraOp Counts Verification Audit 07/11/21 11:09:24 Paleobotanist: EANAPIER Modifier: EANAPIER 1 <*> Procedure Wound Debridement Lower Extremity 1 <+> Count Performed By (RN) [facility] IntraOp Counts Final Entry 1 Procedure Wound Debridement Lower Extremity Final Count Info Count Type Sponge, Sharps, Miscellaneous Counts Verification Skin Closure/end of Sequence procedure Count Results Correct, surgeon notified Counts Performed By Count Performed By ELAINE BRUCE ST (Scrub) Count Performed By SINA JOHNSON RN (RN) Last Modified By: Zee Delgadillo RN 07/11/21 11:15:[address] [facility] IntraOp Counts Final Audit 07/11/21 11:15:16 Paleobotanist: EANAPIER Modifier: EANAPIER 1 <*> Procedure Wound Debridement Lower Extremity 1 <+> Count Results 1 <+> Count Performed By (Scrub) 1 <+> Count Performed By (RN) [facility] IntraOp Departure from OR Entry 1 Integumentary Assessment Transfer/Handoff Transfer to Ambulatory unit, Phase II Handoff Method Phone call, Online nursing summary Post-op Transport Stretcher/Gurney Via Patient Transport SINA JOHNSON RN Accompanied by Last Modified By: Zee Delgadillo RN 07/11/21 11:30:[address] [facility] IntraOp Departure from OR Audit 07/11/21 11:30:27 Paleobotanist: RESULTJO Modifier: BINAPIER <+> 1 Patient Transport Accompanied by [facility] IntraOp Dressing and Packing Entry 1 Type Dressing Wound Dressing Item Cristian, Kerlix/Feng Supplemental Other Applications Applied By MANI THOMAS MD-MARISOL Last Modified By: Zee Delgadillo RN 07/11/21 11:16:14 General Comments: SHOE [facility] IntraOp Fire Risk Assessment Entry 1 Fire [...] Modified By: Zee Delgadillo RN 07/11/21 11:09:[address] [facility] IntraOp Fire Risk Assessment Audit 07/11/21 11:09:14 Paleobotanist: RESULTJO Modifier: EANAPIER <+> 1 Fire Risk Assessment Verified By <+> 1 Fire Risk Assessment Verified Date/Time [facility] IntraOp General Case Quote Clerk 1 Case Information OR OR [address] [facility] Case Level 1 Room Verified Yes Wound Class II - Clean-Contaminated Specialty Vascular Anesthesia Type MAC ASA Class 3 Diagnosis Preop Diagnosis NON HEALING LOWER BILATERAL ISCHEMIA WOUNDS Postop Diagnosis SEE POST OP MD NOTES Last Modified By: Zee Delgadillo RN 07/11/21 11:14:[address] [facility] IntraOp General Case Data Audit 07/11/21 11:14:57 Paleobotanist: EANAPIER Modifier: EANAPIER 1 <*> Specialty 1 <+> Preop Diagnosis 07/11/21 10:49:10 Paleobotanist: KURT Modifier: EANAPIER <+> 1 ASA Class [facility] IntraOp Implant Log Entry 1 Type Implant (Synthetic) Implant Log Implant CYTAL WOUND MTRX 3 LYER Identification [id number] Description Implant Quantity 1 Implant [id number] Identification Serial Number Implant [id number] Identification Lot Number Implant [employer] Identification Machine Sewer Name: Implant [id number] Identification Catalog Number Implant Size 7 X 10 CM Implant Has an Yes Expiration Date Implant Expiration 02/13/22 Date Tissue Implant Last Modified By: Zee Delgadillo RN 07/11/21 11:12:[address] [facility] IntraOp Intraoperative Assessment Entry 1 Handoff Method [...] Modified By: SINA JOHNSON RN 07/11/21 10:09:[address] [facility] IntraOp Intraoperative Equipment Entry 1 Type Monitoring Equipment Intraop Monitoring Electrocardiogram Five lead placement (ECG) Electrode Placement Blood Pressure Non-Invasive BP Device Source Pulse Oximeter Hand, left Probe Site Antiembolic Devices Scopes Photo/Video Documentation Photo No Video No Last Modified By: SINA JOHNSON RN 07/11/21 10:10:[address] [facility] IntraOp Medication Admin Entry 1 Medication/Irrigant Lidocaine .5% plain -- [id number] Dose Dose 1 Unit of Measure % Administered By MANI THOMAS MD-MARISOL Procedure Irrigation Last Modified By: Zee Delgadillo RN 07/11/21 11:13:[address] [facility] IntraOp Patient Positioning Entry 1 Procedure Wound [...] 11:17:05 General Comments: PROCEDURE ON PATIENT STRETCHER [facility] IntraOp Patient Positioning Audit 07/11/21 11:17:05 Paleobotanist: KURT Modifier: LIONER 1 <*> Procedure 1 <*> Procedure 1 <*> Procedure Wound Debridement Lower Extremity 1 <*> Procedure Wound Debridement Lower Extremity 1 <*> Procedure Wound Debridement Lower Extremity 1 <*> Positioned By Purvi Mccarty CRNA 1 <*> Positioned By Purvi Mccarty CRNA [facility] IntraOp Sign In Entry 1 Patient, Site, [...] Modified By: SINA JOHNSON RN 07/11/21 10:11:[address] [facility] IntraOp Sign Out Entry 1 RN Confirmation [...] Modified By: Zee Delgadillo RN 07/11/21 11:30:[address] [facility] IntraOp Sign Out Audit 07/11/21 11:30:40 Paleobotanist: EANAPIER Modifier: EANAPIER <+> 1 RN Sign Out Signature <+> 1 RN Sign Out Signature Date/Time [facility] IntraOp Skin Prep Entry 1 Procedure Wound Debridement Lower Extremity Prescribed N/A Pre-Surgical Prep Completed Prep Area BILATERAL FEET Intraop Prep Prep Agents Betadine solution Prep by SINA JOHNSON RN Hair Removal Methods No hair removal performed Last Modified By: Zee Delgadillo RN 07/11/21 11:14:[address] [facility] IntraOp Surgical Procedures Entry 1 Procedure Wound Debridement Lower Extremity Additional (DEBRIDEMENT OF Procedure BILATERAL FOOT WOUNDS Description WITH ACELLULAR GRAFT PLACEMENT TO LEFT FOOT) Primary Procedure Yes Primary Surgeon MANI THOMAS MD-MARISOL Start 07/11/21 11:07:00 Stop 07/11/21 11:18:00 Anesthesia Type MAC Specialty General Wound Class II - Clean-Contaminated Last Modified By: Zee Delgadillo RN 07/11/21 11:30:[address] [facility] IntraOp Surgical Procedures Audit 07/11/21 11:30:42 Paleobotanist: EANAPIER Modifier: EANAPIER <+> 1 Stop 07/11/21 11:16:15 Paleobotanist: KURT Modifier: EANAPIER <+> [address] [facility] IntraOP Time Out Entry 1 Procedure to [...]
--- OUTSIDE RECORDS SUMMARY | 2025-04-25 14:38 | XMS_ITS | Encounter Summary ---
Author Organization [employer] Address [address] [place] [address] Care Team Providers Care Race And Sports Book Writer Name Role Phone Unavailable Primary Care Provider Unavailabl e Encounter Details Date Type Department Care Team (Late st Contact Info) Description 07/10/2021 Transcribed Document [facility] [place] [address] [place] [address] ProviderEvangelista MD [address] [place] [address] Social History Tobacco Use Types [...] Source : Measured Height Entry Format : [place] Height, Feet : 5 ft(Converted to: 152 cm, 60 Inch) Height, Inches : 6.5 Inch(Converted to: 0 ft 7 Inch, 16.51 cm) Clinical Height : 168.91 cm Weight Source : Standing scale Weight Entry Format : [place] Clinical Dosing Weight : 127.73 kg Weight, Pounds : 281 lb Body Surface Area (BSA) : 2.33 m2 Body Mass Index : 44.8 kg/m2 (>HHI) Onward Body Weight : 60 kg CHELSY SUÁREZ - 07/11/2021 8:28 EDT Health Histories Smoking Status : Former smoker, quit more than 30 days ago Smokeless Tobacco Status : Never Implant/Device Type, Process Controller and Model : spinal cord stimulator Dalton [...] 07/10/2021 16:16:31 EDT by Dalton Lang Rn) Infectious Disease History Where are the test results? : Paper Copy on chart Has the patient ever been tested for COVID-19? : Yes, Patient stated results Negative CHELSY SUÁREZ - 07/11/2021 8:37 EDT Where was the COVID-19 Testing completed? : [facility] in [place], [place] Date of COVID-19 test known? : [...] : No, patient refuses Advance Directive information Dalton Lang Rn - 07/10/2021 16:16 EDT Spiritual/Cultural Needs Any Spiritual/Cultural Needs or Requests : Yes Spiritual/Cultural Needs Comment : 07/11 Bahai Preference : Buddhist ([employer]) Spiritual/Cultural Needs Comment : 07/11 Dalton Lang Rn - 07/10/2021 16:16 EDT [place] Suicide Severity Rating Scale (C-SSRS) CSSRS Past [...] Mother Legal Guardian : No Support Person/Patient Psychologist Experimental : Yes Support Person/Pt Rep Name : Nelida Freire mother Support Person/Pt Rep Contact Information : [phone] Want Family/Rep/Phys Notified of Admit : No Emergency Contact #1 : ` Emergency Contact #1 Phone Number : ` Emergency Contact #1 Relationship : ` Emergency Contact #2 : ` Emergency Contact #2 Phone Number : ` Emergency Contact #2 Relationship : ` Information Obtained From : Patient Primary Language : Luxembourger Preferred Communication Mode : Verbal Communication Barrier : None Processing Talc And Borate Supervisor Needed : No Dalton Lang Rn - [...]
--- OUTSIDE RECORDS SUMMARY | 2025-04-25 14:38 | XMS_ITS | Encounter Summary ---
Author Organization [employer] Address [address] [place] [address] Care Team Providers Care Hide And Skin Processing Worker Name Role Phone Unavailable Primary Care Provider Unavailabl e Encounter Details Date Type Department Care Team (Late st Contact Info) Description 03/17/2022 Transcribed Document [facility] [place] [facility] [place] [address] ProviderEvangelista MD [address] [place], [place] [id number] Social History Tobacco Use Types Packs/Day Years [...] Ministry Provided to : Patient, Family/Significant other Baptist Preference : Nondenominational ([employer]) MEDINA BRADFORD P - 03/20/2022 8:04 EDT Spiritual Assessment Spiritual Assessment Comment/Summary Points : Provided pre-surgery visit and prayer with patient and mother. Spirital Assessment Comment/Summary Report : SPIRITUAL ASSESSMENT COMMENT/SUMMARY No qualifying data available. MEDINA BRADFORD - 03/20/2022 8:04 EDT Interventions Emotional Support : Empathic/Engaged listening, Family/Significant other supported Spiritual and Baptist : Prayer shared, Spiritual/Baptist support provided MEDINA BRADFORD - 03/20/2022 8:04 EDT Electronically signed by Atul [facility] Conversion Weighbridge Operator Cerner at 03/05/2023 6:53 PM CDT documented in this encounter Plan of Treatment Not on file documented as of this encounter Visit Diagnoses Not on filedocumented in this encounter
--- OUTSIDE RECORDS SUMMARY | 2025-04-25 14:38 | XMS_ITS | Encounter Summary ---
Author Organization [employer] Address [address] [place] [address] Care Team Providers Care Hall Supervisor Name Role Phone Unavailable Primary Care Provider Unavailabl e Encounter Details Date Type Department Care Team (Late st Contact Info) Description 03/20/2022 Transcribed Document [facility] [place] Family Medicine [address] [place] [address] ProviderEvangelista MD [address] [place] [address] Social History Tobacco Use Types [...] Evangelista ProviderMD - 03/20/2022 9:01 AM CDT [facility] Main OR PostOp Summary Primary Physician: ANGELA GREEN DPM-POD Finalized Date/Time: 03/20/22 10:58:03 Pt. Name: BEE COLON/Sex: 1970 Female Med Rec #: [id number] Physician: ANGELA GREEN DPM-POD Financial #: [id number] Pt. Type: O Room/Bed: /6 Admit/Disch: 03/20/22 06:30:00 - Institution: [facility] Main OR PostOp Case Times Entry 1 In PACU II 03/20/22 09:56:00 Ready for PACU II 03/20/22 09:49:00 Discharge Discharge from PACU 03/20/22 10:56:00 II Last Modified By: Raji Matos RN-PATIENT CARE BEDSIDE NON-EXEMPT 03/20/22 10:58:00 [facility] Main OR PostOp Case Times Audit 03/20/22 10:58:00 Caustic Pump Operator: [id number] Modifier: [id number] <+> 1 Discharge from PACU II 03/20/22 10:57:51 Caustic Pump Operator: [id number] Modifier: [id number] <+> 1 Ready for PACU II Discharge Finalized By: Raji Matos, RN-PATIENT CARE BEDSIDE NON-EXEMPT Document Signatures Signed By: Raji Matos RN-PATIENT CARE BEDSIDE NON-EXEMPT 03/20/22 10:58 Electronically signed by Atul [facility] Conversion Large Animal Veterinarian Cerner at 03/05/2023 6:54 PM CDT documented in this encounter Plan of Treatment Not on file documented as of this encounter Visit Diagnoses Not on filedocumented in this encounter
--- OUTSIDE RECORDS SUMMARY | 2025-04-25 14:38 | XMS_ITS | Encounter Summary ---
Author Organization [employer] Address [address] [place] [address] Care Team Providers Care Auto Mechanics Instructor Name Role Phone Unavailable Primary Care Provider Unavailabl e Encounter Details Date Type Department Care Team (Late st Contact Info) Description 03/20/2022 Transcribed Document [facility] [place] [facility] [place] [address] ProviderEvangelista MD [address] [place] [address] Social History Tobacco Use Types [...]
--- OUTSIDE RECORDS SUMMARY | 2025-04-25 14:38 | XMS_ITS | Encounter Summary ---
Author Organization [employer] Address [address] [place] [address] Care Team Providers Care Skin Carver Name Role Phone Unavailable Primary Care Provider Unavailabl e Encounter Details Date Type Department Care Team (Late st Contact Info) Description 06/06/2020 Transcribed Document [facility] [place] Medicine [facility] [address] ProviderEvangelista MD [address], [place] [id number] Social History Tobacco Use Types Packs/Day Years [...] two months. DAYTON Cole/jonil Electronically signed by [facility] Conversion Head Of Ict Cerner at 03/05/2023 7:03 PM CDT documented in this encounter Plan of Treatment Not on file documented as of this encounter Visit Diagnoses Not on filedocumented in this encounter
--- OUTSIDE RECORDS SUMMARY | 2025-04-25 14:38 | XMS_ITS | Encounter Summary ---
Author Organization [employer] Address [address] [place] [address] Care Team Providers Care Project Construction Assistant Manager Name Role Phone Unavailable Primary Care Provider Unavailabl e Encounter Details Date Type Department Care Team (Late st Contact Info) Description 03/20/2022 Transcribed Document [facility] Family Medicine [address] [place] [address] ProviderEvangelista MD [address] [place] [address] Social History Tobacco Use Types [...] Evangelista ProviderMD - 03/20/2022 9:01 AM CDT [facility] Main OR Preop Summary Primary Physician: ANGELA GREEN DPM-POD Finalized Date/Time: 03/20/22 11:59:52 Pt. Name: BEE COLON/Sex: 1970 Female Med Rec #: [id number] Physician: ANGELA GREEN DPM-POD Financial #: [id number] Pt. Type: O Room/Bed: /6 Admit/Disch: 03/20/22 06:30:00 - 03/20/22 10:56:00 Institution: [facility] PreOp Case Times Entry 1 In Preop 03/20/22 06:25:00 Ready for Holding n/a Room Patient Ready for 03/20/22 07:40:00 Surgery Patient Out of Preop 03/20/22 08:44:00 Patient Out of n/a Holding Room Last Modified By: Nik Stewart RN-PATIENT CARE BEDSIDE NON-EXEMPT 03/20/22 11:59:49 [facility] PreOp Case Times Audit 03/20/22 11:59:49 Security Police Officer: [id number] Modifier: [id number] <+> 1 Patient Out of Preop 03/20/22 08:03:25 Security Police Officer: [id number] Modifier: [id number] 1 <*> Patient Ready for Surgery 03/20/22 08:03:00 03/20/22 08:03:19 Security Police Officer: [id number] Modifier: [id number] <+> 1 Patient Ready for Surgery Finalized By: Nik [place] RN-PATIENT CARE BEDSIDE NON-EXEMPT Document Signatures Signed By: Nik Stewart RN-PATIENT CARE BEDSIDE NON-EXEMPT 03/20/22 11:59 documented in this encounter Plan of Treatment Not on file documented as of this encounter Visit Diagnoses Not on filedocumented in this encounter
--- OUTSIDE RECORDS SUMMARY | 2025-04-25 14:38 | XMS_ITS | Encounter Summary ---
Author Organization [employer] Address [address] [place] [address] Care Team Providers Care A Class Lineman Name Role Phone Unavailable Primary Care Provider Unavailabl e Encounter Details Date Type Department Care Team (Late st Contact Info) Description 05/15/2022 Transcribed Document [facility] [place] [address] [place] [address] ProviderEvangelista MD [address] [place] [address] Social History Tobacco Use Types [...] Carbone MD - 05/15/2022 8:56 AM CDT [facility] [address] BEE COLON :1970 Visit Time:05/15/2022 What [...] EDT Where: [address] [facility] (1) Medications What How Much When Instructions Next Dose isosorbide mononitrate (isosorbide mononitrate 60 mg oral tablet, extended release) 1 Tablet(s) Oral At Bedtime acetaminophen-hydrocodone ([place] 10 mg-325 mg oral tablet) 1 Tablet(s) [...] these instructions at home: Medicines ??? Take uqbl-jkx-nxikliw and prescription medicines only as told by [...] keep your urine pale yellow. ? Take rpxd-hds-sncpdfc or prescription medicines. ? Eat foods that [...] and water are not available, use hand battery assembler plastic. ? Change your dressing as told by [...] provider. Document Revised: 02/22/2020 Document Reviewed: 10/25/2019 [employer] Patient Education ?? [employer] Outpatient Surgery, Adult, Care After This [...] children on your own. Medicines ??? Take shaf-qep-mkmreoi and prescription medicines only as told by [...] keep your urine pale yellow. ? Take nupd-kgo-tvdnjuu or prescription medicines. ? Eat foods that [...] added (diluted fruit juice). ? Eat bland, hkhn-md-xrkyvh foods in small amounts as you are [...] and water are not available, use hand battery assembler plastic. ? Change your dressing as told by [...] drink clear fluids slowly and eat bland, hvep-xp-jwqczo foods in small amounts. ??? Ask your health care provider what activities are safe for you. This information is not intended to replace advice given to you by your health care provider. Make sure you discuss any questions you have with your health care provider. Document Revised: 03/01/2021 Document Reviewed: 08/23/2020 [employer] Patient Education ?? 2020 [employer] Emergency Awareness and Preventative Care STROKE [...] Assistance with quitting is available by contacting 5-494-BTBL-NOW. This is a free resource providing counseling, [...] was given the opportunity to ask questions. Patient/Disabilities Services Officer Name: Patient/Disabilities Services Officer Signature: Relationship to Patient: Clinician/Hospital Disabilities Services Officer Signature: Date: documented in this encounter Plan of Treatment Not on file documented as of this encounter Visit Diagnoses Not on filedocumented in this encounter
--- OUTSIDE RECORDS SUMMARY | 2025-04-25 14:38 | XMS_ITS | Encounter Summary ---
Author Organization [employer] Address [address] [place] [address] Care Team Providers Care Uppers Edge Burnisher Name Role Phone Unavailable Primary Care Provider Unavailabl e Encounter Details Date Type Department Care Team (Late st Contact Info) Description 03/20/2022 Transcribed Document [facility] [place] [facility] [place] [address] ProviderEvangelista MD [address] [place] [address] Social History Tobacco Use Types [...] and water are not available, use hand ecommerce analyst. ? Change your dressing as told by [...] fried or sweet foods. ? Take an ywem-szv-rjjlcpq or prescription medicine for constipation. ??? Do not use any products that contain nicotine or tobacco, such as cigarettes and e-cigarettes. These can delay bone healing after surgery. If you need help quitting, ask your health care provider. ??? Take fyat-ohh-legvuep and prescription medicines only as told by [...] provider. Document Revised: 12/29/2019 Document Reviewed: 11/25/2018 [employer] Patient Education ? 2020 [employer]. Procedures Outpatient Surgery, Adult, Care After This [...] children on your own. Medicines ??? Take xaih-kwr-nurtbzy and prescription medicines only as told by [...] keep your urine pale yellow. ? Take jyxp-shl-moyuzow or prescription medicines. ? Eat foods that [...] added (diluted fruit juice). ? Eat bland, fspe-ke-trgxzv foods in small amounts as you are [...] and water are not available, use hand ecommerce analyst. ? Change your dressing as told by [...] drink clear fluids slowly and eat bland, nlvl-bp-efqlcm foods in small amounts. ??? Ask your health care provider what activities are safe for you. This information is not intended to replace advice given to you by your health care provider. Make sure you discuss any questions you have with your health care provider. Document Revised: 03/01/2021 Document Reviewed: 08/23/2020 ElseZiploop Patient Education ? 2020 [employer]. Electronically signed by Dave Pollard Conversion Sueding And Buffing Machine Operator Cerner at 03/05/2023 7:12 PM CDT documented in this encounter Plan of Treatment Not on file documented as of this encounter Visit Diagnoses Not on filedocumented in this encounter
--- OUTSIDE RECORDS SUMMARY | 2025-04-25 14:38 | XMS_ITS | Referral Summary ---
Author Organization [employer] Address [address] [place] [address] Care Team Providers Care Part Maker Name Role Phone Unavailable Primary Care Provider [...]
--- OUTSIDE RECORDS SUMMARY | 2025-04-25 14:38 | XMS_ITS | Encounter Summary ---
Author Organization [employer] Address [address] [place] [address] Care Team Providers Care Manager Online Name Role Phone Unavailable Primary Care Provider Unavailabl e Encounter Details Date Type Department Care Team (Late st Contact Info) Description 03/19/[address] [facility] [place] Family Medicine [address] [place] [address] ProviderEvangelista MD [address] [place] [address] Social History Tobacco Use Types [...] Problems 6-Stented coronary artery / SNOMED CT 5163722360 / Confirmed Spinal cord stimulator status rt hip pt turned off this am / SNOMED CT 911994600 / Confirmed Peripheral vascular disease / SNOMED CT 6630843985 / Confirmed Hypertension / SNOMED CT 93496613 / Confirmed History of obstructive sleep apnea / IMO 94674359 / Confirmed Foot pain, right / SNOMED CT 558314069 / Confirmed Fibromyalgia / SNOMED CT 29826514 / Confirmed DM - wears Dexcom / SNOMED CT 794442442 / Confirmed Diabetic neuropathy / SNOMED CT 084197691 / Confirmed Coronary artery disease / SNOMED CT 6383321175 / Confirmed Chronic back pain / SNOMED CT 047531835 / Confirmed At risk for sleep apnea / IMO 99318456 / Confirmed Angina / SNOMED CT 817747491 / Confirmed Non-ST elevation [place] (NSTEMI) x 2 / SNOMED CT 9164750883 / Confirmed Canceled: Myocardial infarction / SNOMED CT 99945214 Canceled: Cellulitis of foot, left / SNOMED CT 813373490 s/p left foot transmetatarsal amp Canceled: Unsteady gait-uses cane / SNOMED CT 09670889 , Active Problems (14) Non-ST elevation [place] (NSTEMI) x 2 6-Stented coronary artery Angina [...] been selected or recorded. Procedure history: Hysterectomy (800289360). right foot pinning. lap with laser x3. rt knee scope x2. left knee scope. right hand CMC x4. left hand CMC x1. all toes amputated from left foot. left shoulder scope. right shoulder scope. Cholecystectomy (80261108). Appendectomy (156398699). spinal cord stimulator. Cardiac catheterization (02752654). Comments: 03/19/2022 12:20 EDT - Ale Gresham, [...] proceed with surgery, DC home same day. documented in this encounter Plan of Treatment Not on file documented as of this encounter Visit Diagnoses Not on filedocumented in this encounter
--- OUTSIDE RECORDS SUMMARY | 2025-04-25 14:38 | XMS_ITS | Clinical Summary ---
Author Organization [employer] Address [address] [place] [address] Care Team Providers Care Boat Builder Name Role Phone Unavailable Primary Care Provider [...]
--- OUTSIDE RECORDS SUMMARY | 2025-04-25 14:38 | XMS_ITS | Encounter Summary ---
Author Organization [employer] Address [address] [place] [address] Care Team Providers Care Inventory Administrator Name Role Phone Unavailable Primary Care Provider Unavailabl e Encounter Details Date Type Department Care Team (Late st Contact Info) Description 07/11/2021 Transcribed Document [facility] [address] [place] [address] Dennis Greco MD [address] [facility] [place] [id number] Social History Tobacco Use Types Packs/Day Years Used Date Smoking Tobacco: Never Assessed Comments Unknown Sex and Gender Information Value Date Recorded Sex Assigned at Not on file Legal Sex Female 3:10 PM CDT Gender Identity Not on file Sexual Orientation Not on file documented as of this encounter Miscellaneous Notes * Cerner Conversion Note - eDnnis Greco MD - 07/11/2021 9:46 AM EDT Patient: BEE COLON Age: 51 years Sex: Female : 1970 Associated Diagnoses: None Author: BEE BRYANT, MEDIA DIRECTOR Chief Complaint spenser feet wounds Review of [...] list: All Problems 6-Stented coronary artery / [facility] [place] 8198992138 / Confirmed Spinal cord stimulator status rt hip pt turned off this am / SNOMED CT 001041937 / Confirmed Peripheral vascular disease / SNOMED CT 4035328689 / Confirmed Myocardial infarction / SNOMED CT 20856729 / Confirmed Hypertension / SNOMED CT 88463513 / Confirmed History of obstructive sleep apnea / IMO 42580558 / Confirmed Fibromyalgia / SNOMED CT 24988668 / Confirmed DM - Diabetes mellitus / SNOMED CT 494953650 / Confirmed Diabetic neuropathy / SNOMED CT 797132251 / Confirmed Coronary artery disease / SNOMED CT 7788468445 / Confirmed Chronic back pain / SNOMED CT 334862450 / Confirmed Cellulitis of foot, left / SNOMED CT 269211868 / Confirmed Angina / SNOMED CT 183384475 / Confirmed -2020 Non-ST elevation [place] (NSTEMI) x 2 / SNOMED CT 9621848276 / Confirmed Unsteady gait-uses cane / SNOMED CT 86909021 / Confirmed, Active Problems (15) Non-ST elevation [place] (NSTEMI) x 2 6-Stented coronary artery Angina [...] been selected or recorded. Procedure history: Hysterectomy (112019142). right foot pinning. lap with laser x3. rt knee scope x2. left knee scope. right hand CMC x4. left hand CMC x1. all toes amputated from left foot. left shoulder scope. right shoulder scope. Cholecystectomy (37605655). Appendectomy (738804206). spinal cord stimulator. Physical Examination VS/Measurements No qualifying data available, Measurements from flowsheet : Measurements 07/10/2021 16:16 EDT Height Source Measured Height Entry Format [place] Height/Length, SCOTTISH (ft) 5 ft Height/Length SCOTTISH 6.5 Inch CLINICALHEIGHT 168.91 cm [place] Body Weight 60 kg Weight Source Standing scale Weight Entry Format [place] Weight Vietnamese lb 281 lb CLINICALWEIGHT 127.73 kg Body [...]
--- OUTSIDE RECORDS SUMMARY | 2025-04-25 14:38 | XMS_ITS | Encounter Summary ---
Author Organization [employer] Address [address] [place] [address] Care Team Providers Care Filer Finish Name Role Phone Unavailable Primary Care Provider Unavailabl e Encounter Details Date Type Department Care Team (Late st Contact Info) Description 07/11/2021 Transcribed Document [facility] [place] Family Medicine [address] [place] [address] ProviderEvangelista MD [address] [place] [address] Social History Tobacco Use [...] Evangelista ProviderMD - 07/11/2021 12:12 PM CDT [facility] [place] [address] BEE COLON :1970 Visit Time:07/11/2021 What to do next Your Diagnosis Non-pressure chronic ulcer of other part of right foot with unspecified severity Peripheral vascular disease, unspecified Unspecified atherosclerosis of comanche arteries of extremities, unspecified extremity, Unspecified atherosclerosis of comanche arteries of extremities, unspecified extremity Instructions From [...] 7-10 days Jul.23 at 11:15 am Where: [facility] [address] [facility] [place] [phone] Medications What How Much When Instructions Next [...] eating solid foods. General instructions ??? Take oqum-qig-qcobixo and prescription medicines only as told by [...] provider. Document Revised: 01/31/2019 Document Reviewed: 02/22/2017 [email or web address] Patient Education ?? 2020 [employer]. Surgical Wound Debridement, Care After This sheet [...] these instructions at home: Medicines ??? Take egia-wmb-hwskdrh and prescription medicines only as told by [...] and water are not available, use hand environmental studies department chair. ? Change your dressing as told by [...] Reviewed: 10/25/2019 Elsevier Patient Education ?? 2019 [employer] Emergency Awareness and Preventative Care STROKE [...] Assistance with quitting is available by contacting 6-279-JRDINOW. This is a free resource providing counseling, support, and referral. Or you may contact your personal physician. [employer] Suicide Prevention Lifeline: The National Suicide Prevention [...] range between ( 0.0 and 7.0 ) Heard #: 0.83 K/uL -- Normal range between ( 0.16 and 1.00 ) Eos #: 0.28 x10(3)/uL -- Normal range between ( 0.00 and 0.80 ) Heard %: 9.0 % -- Normal range between [...] was given the opportunity to ask questions. Patient/Repair Order Clerk Name: Patient/Repair Order Clerk Signature: Relationship to Patient: Clinician/Hospital Repair Order Clerk Signature: Date: Electronically signed by Atul, [facility] Conversion Public Relations Director Cerner at 03/05/2023 7:13 PM CDT documented in this encounter Plan of Treatment Not on file documented as of this encounter Visit Diagnoses Not on filedocumented in this encounter
--- OUTSIDE RECORDS SUMMARY | 2025-04-25 14:38 | XMS_ITS | Encounter Summary ---
Author Organization [employer] Address [address] [place] [address] Care Team Providers Care Console Operator Name Role Phone Unavailable Primary Care Provider Unavailabl e Encounter Details Date Type Department Care Team (Late st Contact Info) Description 03/17/2022 Transcribed Document [facility] [place] Family Medicine [facility] [place] [address] ProviderEvangelista MD [address] [place] [address] Social History Tobacco Use Types [...] Source : Measured Height Entry Format : [place] Height, Feet : 5 ft(Converted to: 152 cm, 60 Inch) Height, Inches : 6.5 Inch(Converted to: 0 ft 7 Inch, 16.51 cm) Clinical Height : 168.91 cm Weight Source : Standing scale Weight Entry Format : [place] Clinical Dosing Weight : 131.82 kg Weight, Pounds : 290 lb Body Surface Area (BSA) : 2.36 m2 Body Mass Index : 46.2 kg/m2 (>HHI) [place] Body Weight : 60 kg Ale Gresham RN-PATIENT CARE BEDSIDE NON-EXEMPT - 03/19/2022 12:07 EDT Health Histories Smoking Status : Former smoker, quit more than 30 days ago Smokeless Tobacco Status : Never Implant/Device Type, Celebrity Chef Entrepreneur Media Personality and Model : spinal cord stimulator; cardiac [...] and When was COVID19 testing completed? : [facility] 03/18/22 Does the Patient state known exposure [...] DEMETRICE WANG RN - 03/17/2022 8:40 EDT [place] Suicide Severity Rating Scale (C-SSRS) CSSRS Past [...] Bee Legal Guardian : No Support Person/Patient Support Clerk : Yes Support Person/Pt Rep Name : Nelida Colon - mother Support Person/Pt Rep Contact Information : [phone] Want Family/Rep/Phys Notified of Admit : No [...] Obtained From : Patient Primary Language : Guinean Preferred Communication Mode : Verbal Communication Barrier : None Vacuum Cleaner Repairer Needed : No DEMETRICE WANG RN - [...]
--- OUTSIDE RECORDS SUMMARY | 2025-04-25 14:38 | XMS_ITS | Encounter Summary ---
Author Organization [employer] Address [address] [place] [address] Care Team Providers Care Seam Sewer Name Role Phone Unavailable Primary Care Provider Unavailabl e Encounter Details Date Type Department Care Team (Late st Contact Info) Description 07/11/2021 Transcribed Document [facility] [place] [facility] [address] ProviderEvangelista MD [address] [place] [address] Social History Tobacco Use Types [...] Evangelista ProviderMD - 07/11/2021 11:07 AM CDT [facility] Main OR Preop Summary Primary Physician: MANI THOMAS MD-SUR Finalized Date/Time: 07/11/21 13:05:00 Pt. Name: BEE COLON/Sex: 1970 Female Med Rec #: [id number] Physician: MANI THOMAS MD-SUR Financial #: [id number] Pt. Type: O Room/Bed: Admit/Disch: 07/11/21 08:06:00 - Institution: [facility] PreOp Case Times Entry 1 In [...]
--- OUTSIDE RECORDS SUMMARY | 2025-04-25 14:38 | XMS_ITS | Encounter Summary ---
Author Organization [employer] Address [address] [place] [address] Care Team Providers Care Linux Server Engineer Name Role Phone Unavailable Primary Care Provider Unavailabl e Encounter Details Date Type Department Care Team (Late st Contact Info) Description 07/31/2020 Transcribed Document [facility] [place] Family Medicine [address] [place] [address] ProviderEvangelista MD [address], [place] [id number] Social History Tobacco Use Types Packs/Day Years [...] at this time with the use of Edroy 10/325 mg four times daily dosing, Lyrica [...] in two months for a follow-up appointment. AKYLIN Navarro/maurice documented in this encounter Plan of Treatment Not on file documented as of this encounter Visit Diagnoses Not on filedocumented in this encounter
--- OUTSIDE RECORDS SUMMARY | 2025-04-25 14:38 | XMS_ITS | Encounter Summary ---
Author Organization [employer] Address [address] [place] [address] Care Team Providers Care Educational Technologist Name Role Phone Unavailable Primary Care Provider Unavailabl e Encounter Details Date Type Department Care Team (Late st Contact Info) Description 05/15/2022 Transcribed Document [facility] [place] Family Medicine [address] [place] [address] ProviderEvangelista MD [address] [place] [address] Social History Tobacco Use Types [...] Evangelista ProviderMD - 05/15/2022 8:00 AM CDT [facility] Main OR IntraOp Summary Primary Physician: ANGELA GREEN DPM-POD Finalized Date/Time: 05/20/22 14:13:00 Pt. Name: BEE COLON./Sex: 1970 Female Med Rec #: [id number] Physician: ANGELA GREEN DPM-POD Financial #: [id number] Pt. Type: O Room/Bed: 12 Admit/Disch: 05/15/22 06:55:00 - 05/15/22 09:35:00 Institution: [facility] IntraOp Case Attendance Entry 1 Entry 2 Entry 3 Case Attendee ANGELA GREEN DPM-POD CHALKLEY, JUDSON E, Versteeg, Beckie, RN MD-ANS Role Performed Surgeon/Proceduralist, Anesthesiologist of Local Announcer, First First Record Time In 05/15/22 07:41:00 [...] RN LONG, PAULA R., ST Role Performed Local Announcer, Second Local Announcer, Third Scrub, First Time In 05/15/22 07:41:00 05/15/22 07:41:00 05/15/22 07:41:00 Time Out 05/15/22 08:26:00 05/15/22 08:26:00 05/15/22 08:26:00 Procedure Toe Amputation Toe Amputation Toe Amputation Other Attendee Superficial Wound Closed By: Last Modified By: Milly Powers, Milly Sandhu, Milly Sandhu RN 05/15/22 08:35:45 05/15/22 08:35:45 05/15/22 08:35:45 Entry 7 Case Attendee SHANA EASLEY DIRECTOR OF CLINICAL SERVICES Role Performed DIRECTOR OF CLINICAL SERVICES/Nurse Director Of Clinical Services Time In 05/15/22 07:41:00 Time Out 05/15/22 08:26:00 Procedure Toe Amputation Other Attendee Superficial Wound Closed By: Last Modified By: Milly Powers RN 05/15/22 08:35:45 [facility] IntraOp Case Attendance Audit 05/15/22 08:35:45 Cotton Broker: [id number] Modifier: [id number] 1 <+> Time Out 1 <*> Procedure [...] 7 <*> Procedure Toe Amputation 05/15/22 08:22:45 Cotton Broker: [id number] Modifier: [id number] 1 <+> Time In 1 <*> Procedure [...] 7 <*> Procedure Toe Amputation 05/15/22 07:57:53 Cotton Broker: [id number] Modifier: [id number] 1 <*> Case Attendee ANGELA GREEN DPM-POD 1 <*> Role Performed Surgeon/Proceduralist, First 1 <*> Procedure Toe Amputation 2 <*> Case Attendee JOSE ASHFORD MD-ANS 2 <*> Role Performed Anesthesiologist of Record 2 <*> Procedure Toe Amputation Entry 3 was deleted. Higher numbered entries shifted one position to fill the gap. <-> 3 Case Attendee MARYAN CHAUDHARI NA <-> 3 Role Performed DIRECTOR OF CLINICAL SERVICES/Nurse Director Of Clinical Services <-> 3 Procedure Toe Amputation <+> 4 Case Attendee <+> 4 Role Performed <+> 4 Procedure <+> 5 Case Attendee <+> 5 Role Performed <+> 5 Procedure <+> 6 Case Attendee <+> 6 Role Performed <+> 6 Procedure 05/15/22 07:40:54 Cotton Broker: [id number] Modifier: [id number] <+> 1 Procedure 2 <*> Procedure Toe Amputation 3 <*> Procedure Toe Amputation [facility] IntraOp Case Times Entry 1 Patient In Room Time 05/15/22 07:41:00 Out Room Time 05/15/22 08:26:00 Anesthesia Start Time 05/15/22 07:41:00 Stop Time 05/15/22 08:26:00 Surgery / Procedure Times Start Time 05/15/22 08:00:00 Stop Time 05/15/22 08:20:00 Last Modified By: Milly Powers RN 05/15/22 08:35:43 [facility] IntraOp Case Times Audit 05/15/22 08:35:43 Cotton Broker: [id number] Modifier: [id number] <+> 1 Out Room Time <+> 1 Stop Time 05/15/22 08:20:25 Cotton Broker: [id number] Modifier: [id number] <+> 1 Stop Time 05/15/22 08:01:04 Cotton Broker: [id number] Modifier: [id number] <+> 1 Start Time [facility] IntraOp Communication Entry 1 Communication To Family/Significant other Comment start Communication By Pablo David RN Date and Time 05/15/22 08:00:00 Last Modified By: Milly Powers RN 05/15/22 08:01:20 [facility] IntraOp Counts Verification Entry 1 Procedure Toe Amputation Count Info Count Type Sponge, Sharps, Miscellaneous Counts Verification Baseline/pre-procedure Sequence Count Results Not Applicable Counts Performed By Count Performed By ZHANNA LU ST (Scrub) Count Performed By Pablo David RN (RN) Last Modified By: Milly Powers RN 05/15/22 07:58:20 [facility] IntraOp Counts Final Entry 1 Procedure Toe Amputation Final Count Info Count Type Sponge, Sharps, Miscellaneous Counts Verification Skin Closure/end of Sequence procedure Count Results Correct, surgeon notified Counts Performed By Count Performed By ZHANNA LU ST (Scrub) Count Performed By Milly Powers RN (RN) Last Modified By: Milly Powers RN 05/15/22 08:17:25 [facility] IntraOp Counts Final Audit 05/15/22 08:17:25 Cotton Broker: [id number] Modifier: [id number] 1 <*> Procedure Toe Amputation 1 <+> Count Performed By (Scrub) 1 <+> Count Performed By (RN) [facility] IntraOp Cultures and Spec Summary Entry 1 Cultrures and Specimens Specimen Ordered: Yes Test(s) Routine/Path-Lab, Requested/Final Culture(s)/Microbiology Disposition Last Modified By: Milly Powers RN 05/15/22 07:58:38 General Comments: SPECIMENS a. 5th toe and 5th metatarsal, right foot CULTURES 1. right foot surgical site [facility] IntraOp Delays Entry 1 Delay Reason Patient, other (document in comment) Duration 11 Minute(s) Comment case moved up due to delay in previous case prep Last Modified By: Milly Powers RN 05/15/22 08:02:53 [facility] IntraOp Departure from OR Entry 1 Integumentary Assessment Integumentary WDL Assessment WDL Transfer/Handoff Transfer to Ambulatory unit, Phase II Handoff Method Bedside/Face to face, Phone call, Online nursing summary Post-op Transport Stretcher/Gurney Via Patient Transport Milly Powers RN Accompanied by Last Modified By: Milly Powers RN 05/15/22 08:03:25 [facility] IntraOp Dressing and Packing Entry 1 Type Dressing Wound Dressing Item 4x4's, Adaptic, Cristian, Kerlix/Feng Other Comments BETADINE SOLUTION ON FIELD Last Modified By: Milly Powers RN 05/15/22 08:17:31 [facility] IntraOp Fire Risk Assessment Entry 1 [...] Modified By: Milly Powers RN 05/15/22 08:03:56 [facility] IntraOp General Case Desktop Publisher 1 Case Information OR OR 05 [facility] Case Level 1 Room Verified Yes Wound Class 4 - Dirty, Infected Specialty Podiatry Anesthesia Type MAC ASA Class 4 Diagnosis Preop Diagnosis osteomyelitis right foot, pain right foot, ulcer to bone right foot Postop Same As Preop No Postop Diagnosis see surgeon postop notes Wound Class Definitions Last Modified By: Milly Powers RN 05/15/22 08:07:51 [facility] IntraOp Intraoperative Assessment Entry 1 Handoff Method Bedside/Face to face, Online nursing summary Valid History / Yes Physical in Chart Preoperative Yes Checklist Reviewed/Evaluated Allergies Reviewed Yes Patient is Latex No Sensitive Skin Assessment Yes Verified Present Upon IVs Arrival to OR Last Modified By: Milly Powers RN 05/15/22 08:20:08 [facility] IntraOp Intraoperative Assessment Audit 05/15/22 08:20:08 Cotton Broker: [id number] Modifier: [id number] <+> 1 Patient is Latex Sensitive <+> 1 Valid History / Physical in Chart [facility] IntraOp Intraoperative Equipment Entry 1 Type Equipment Equipment Equipment Waste Management System ID Number [id number] Intraop Monitoring Electrocardiogram Five lead placement (ECG) Electrode Placement Antiembolic Devices Scopes Photo/Video Documentation Last Modified By: Milly Powers RN 05/15/22 08:18:25 [facility] IntraOp Medication Admin Entry 1 Entry 2 Entry 3 Medication/Irrigant vancomycin 1Gm vial - GENTAMYCIN 80MG/2ML SANTIAGO TORIBIO PWD [id number] VIAL - [id number] Combo Med List Time Administered Route of [...] lidocaine 1% 30ml vial 0.5% 30ml - [id number] - [id number] Combo Med List Time Administered 05/15/22 08:00:00 05/15/22 08:00:00 Route of inj inj Administration Dose Dose 4.5 4.5 Unit of Measure ml ml Volume Administered By ANGELA GREEN DPM-ANGELA DAVE DPM-POD Procedure Irrigation Irrigant Volume In Irrigant Volume Out Last Modified By: Milly Powers RN Versteeg, Beckie, RN 05/15/22 08:35:14 05/15/22 08:35:14 [facility] IntraOp Medication Admin Audit 05/15/22 08:35:14 Cotton Broker: [id number] Modifier: [id number] <*> Medication/Irrigant Bupivicaine/Marcaine 0.5% 30ml - [id number] 4 <+> Dose 4 <+> Time Administered 4 <+> Unit of Measure 5 <*> Medication/Irrigant lidocaine 1% 30ml vial - [id number] 5 <+> Dose 5 <+> Time Administered 5 <+> Unit of Measure 05/15/22 08:34:18 Cotton Broker: [id number] Modifier: [id number] <+> 4 Medication/Irrigant <+> 4 Route of Administration <+> 4 Administered By <+> 5 Medication/Irrigant <+> 5 Route of Administration <+> 5 Administered By 05/15/22 08:33:37 Cotton Broker: [id number] Modifier: [id number] 1 <*> Medication/Irrigant vancomycin 1Gm vial - [id number] 1 <+> Route of Administration 1 <+> Administered By 1 <+> Dose 1 <+> Unit of Measure <+> 2 Medication/Irrigant <+> 2 Route of Administration <+> 2 Administered By <+> 2 Dose <+> 2 Unit of Measure <+> 3 Medication/Irrigant <+> 3 Route of Administration <+> 3 Administered By <+> 3 Dose <+> 3 Unit of Measure [facility] IntraOp Patient Positioning Entry 1 Procedure Toe [...] Modified By: Milly Powers RN 05/15/22 08:18:58 [facility] IntraOp Sign In Entry 1 Patient, [...] Modified By: Milly Powers RN 05/15/22 08:19:10 [facility] IntraOp Sign Out Entry 1 RN [...] Modified By: Milly Powers RN 05/15/22 08:35:54 [facility] IntraOp Sign Out Audit 05/15/22 08:35:54 Cotton Broker: [id number] Modifier: [id number] <+> 1 RN Sign Out Signature Date/Time [facility] IntraOp Skin Prep Entry 1 Procedure Toe Amputation Prescribed Yes Pre-Surgical Prep Completed Intraop Prep Integumentary WDL Assessment WDL Prep Agents Betadine scrub, Betadine solution Prep by Milly Powers RN Hair Removal Last Modified By: Milly Powers RN 05/15/22 08:19:24 [facility] IntraOp Surgical Procedures Entry 1 Procedure Toe Amputation Additional (RIGHT PARTIAL 5TH RAY Procedure AMPUTATION) Description Primary Procedure Yes Primary Surgeon ANGELA GREEN DPM-POD Start 05/15/22 08:00:00 Stop 05/15/22 08:20:00 Anesthesia Type MAC Specialty Podiatry Wound Class 3 - Contaminated Last Modified By: Milly Powers RN 05/15/22 08:20:49 [facility] IntraOp Surgical Procedures Audit 05/15/22 08:20:49 Cotton Broker: [id number] Modifier: [id number] 1 <*> Procedure Toe Amputation 1 <+> Wound Class 05/15/22 08:20:35 Cotton Broker: [id number] Modifier: [id number] 1 <*> Procedure Toe Amputation 1 <+> Stop 05/15/22 08:19:00 Cotton Broker: [id number] Modifier: [id number] <+> 1 Start [facility] IntraOp Temp Regulation Devices Entry 1 Temp Regulation Temperature Forced Air Warming Regulation Device device, Warm blankets Temperature Upper body Regulation Site Temperature Device ON Setting Temperature SHANA EASLEY CRNA Regulation Device Applied by Last Modified By: Milly Powers RN 05/15/22 08:19:50 [facility] IntraOP Time Out Entry 1 Procedure [...] Modified By: Milly Powers RN 05/15/22 08:02:08 [facility] IntraOP Time Out Audit 05/15/22 08:02:08 Cotton Broker: [id number] Modifier: [id number] 1 <+> Beta Dmitriy Administered 1 <+> [...]
--- OUTSIDE RECORDS SUMMARY | 2025-04-25 14:38 | XMS_ITS | Encounter Summary ---
Author Organization [employer] Address [address] [place] [address] Care Team Providers Care Computer Science Instructor Name Role Phone Unavailable Primary Care Provider Unavailabl e Encounter Details Date Type Department Care Team (Late st Contact Info) Description 03/20/2022 Transcribed Document [facility] [place] [facility] [place] [facility] [place] [address] ProviderEvangelista MD [address] [place] [address] Social History Tobacco Use Types [...] Evangelista ProviderMD - 03/20/2022 10:11 AM CDT [place] [address] BEE COLON :1970 Visit Time:03/20/2022 What [...] When 03/24/2022 02:00 PM EDT Where: [address] [place] [address]- Medications What How Much When Instructions Next [...] and water are not available, use hand manager urology. ? Change your dressing as told by [...] fried or sweet foods. ? Take an aafm-eos-ncacsse or prescription medicine for constipation. ??? Do not use any products that contain nicotine or tobacco, such as cigarettes and e-cigarettes. These can delay bone healing after surgery. If you need help quitting, ask your health care provider. ??? Take gyou-uzk-mtnkvpq and prescription medicines only as told by [...] provider. Document Revised: 12/29/2019 Document Reviewed: 11/25/2018 [employer] Patient Education ?? 2020 [employer]. Outpatient Surgery, Adult, Care After This sheet [...] children on your own. Medicines ??? Take hlul-mbj-uuqfaro and prescription medicines only as told by [...] keep your urine pale yellow. ? Take chaj-zmm-tfyiwar or prescription medicines. ? Eat foods that [...] added (diluted fruit juice). ? Eat bland, ldvr-hp-lgnjro foods in small amounts as you are [...] and water are not available, use hand manager urology. ? Change your dressing as told by [...] drink clear fluids slowly and eat bland, ifrx-gm-rrdnys foods in small amounts. ??? Ask your health care provider what activities are safe for you. This information is not intended to replace advice given to you by your health care provider. Make sure you discuss any questions you have with your health care provider. Document Revised: 03/01/2021 Document Reviewed: 08/23/2020 [employer] Patient Education ?? 2020 [employer]. Emergency Awareness and Preventative Care STROKE is [...] Assistance with quitting is available by contacting 6-119-SSOO-NOW. This is a free resource providing counseling, [...] range between ( 0.0 and 7.0 ) Garden #: 1.05 K/uL -- Normal range between ( 0.16 and 1.00 ) Eos #: 0.30 x10(3)/uL -- Normal range between ( 0.00 and 0.80 ) Garden %: 8.5 % -- Normal range between [...] was given the opportunity to ask questions. Patient/Visual Journalist Name: Patient/Visual Journalist Signature: Relationship to Patient: Clinician/Hospital Visual Journalist Signature: Date: documented in this encounter Plan of Treatment Not on file documented as of this encounter Visit Diagnoses Not on filedocumented in this encounter
--- OUTSIDE RECORDS SUMMARY | 2025-04-25 14:38 | XMS_ITS | Encounter Summary ---
Author Organization [employer] Address [address] [place] [address] Care Team Providers Care Rotor Pilot Name Role Phone Unavailable Primary Care Provider Unavailabl e Encounter Details Date Type Department Care Team (Late st Contact Info) Description 07/10/2021 Transcribed Document [facility] [place] [address] [place] [address] ProviderEvangelista MD [address], [place] [id number] Social History Tobacco Use Types Packs/Day Years [...] Ministry Provided to : Patient, Family/Significant other Adventist Preference : Mu-Ism ([employer]) MEDINA BRADFORD P - 07/11/2021 10:58 EDT Spiritual Assessment Spiritual Assessment Comment/Summary Points : Provided pre-surgery visit and prayer with patient and mother. Spirital Assessment Comment/Summary Report : SPIRITUAL ASSESSMENT COMMENT/SUMMARY No qualifying data available. MEDINA BRADFORD - 07/11/2021 10:58 EDT Interventions Emotional Support : Empathic/Engaged listening, Family/Significant other supported Spiritual and Adventist : Prayer shared, Spiritual/Adventist support provided MEDINA BRADFORD - 07/11/2021 10:58 EDT Electronically signed by Atul [facility] Conversion Door Maker Cerner at 03/05/2023 6:48 PM CDT documented in this encounter Plan of Treatment Not on file documented as of this encounter Visit Diagnoses Not on filedocumented in this encounter
--- OUTSIDE RECORDS SUMMARY | 2025-04-25 14:38 | XMS_ITS | Encounter Summary ---
Author Organization [employer] Address [address] [place] [address] Care Team Providers Care Data Clerk Name Role Phone Unavailable Primary Care Provider Unavailabl e Encounter Details Date Type Department Care Team (Late st Contact Info) Description 05/12/2022 Transcribed Document [facility] [place] [facility] [address] ProviderEvangelista MD [address] [place] [address] Social History Tobacco Use Types [...] Source : Measured Height Entry Format : [place] Height, Feet : 0 ft(Converted to: 0 cm, 0 Inch) Height, Inches : 66.5 Inch(Converted to: 5 ft 6 Inch, 168.91 cm) Clinical Height : 168.91 cm Weight Source : Standing scale Weight Entry Format : [place] Clinical Dosing Weight : 131.82 kg Weight, Pounds : 290 lb Body Surface Area (BSA) : 2.36 m2 Body Mass Index : 46.2 kg/m2 (>HHI) [place] Body Weight : 60 kg ELY ARAYA RN - 05/13/2022 10:42 EDT Health Histories Smoking Status : Former smoker, quit more than 30 days ago Smokeless Tobacco Status : Never DEMETRICE WANG RN - 05/12/2022 8:44 EDT Implant/Device Type, Draw Machine Operator and Model : spinal cord stimulator; cardiac [...] DEMETRICE WANG RN - 05/12/2022 8:28 EDT [place] Suicide Severity Rating Scale (C-SSRS) CSSRS Past [...] Bee Legal Guardian : No Support Person/Patient Handkerchief Folder : Yes Support Person/Pt Rep Name : Nelida Colon - mother Support Person/Pt Rep Contact Information : [phone] Want Family/Rep/Phys Notified of Admit : No [...] Obtained From : Patient Primary Language : Ukrainian Preferred Communication Mode : Verbal Communication Barrier : None Goal Umpire Needed : No DEMETRICE WANG RN - [...]
--- OUTSIDE RECORDS SUMMARY | 2025-04-25 14:38 | XMS_ITS | Encounter Summary ---
Author Organization [employer] Address [address] [place] [address] Care Team Providers Care Loom Cleaner Name Role Phone Unavailable Primary Care Provider Unavailabl e Encounter Details Date Type Department Care Team (Late st Contact Info) Description 05/12/[address] [facility] [place] Medicine [facility] [place] [address] ProviderEvangelista MD [address], [place] [id number] Social History Tobacco Use Types Packs/Day Years [...] Ministry Provided to : Patient, Family/Significant other Moravian Preference : Amish ([employer]) Aman Lujan Chaplain - 05/12/2022 15:58 EDT Spiritual Assessment Spiritual Assessment Comment/Summary Points : Supportive pre-surgery visit with patient, prayer provided. Spirital Assessment Comment/Summary Report : SPIRITUAL ASSESSMENT COMMENT/SUMMARY No qualifying data available. Aman Lujan Chaplain - 05/12/2022 15:58 EDT Interventions Emotional Support : Empathic/Engaged listening, Family/Significant other supported Spiritual and Moravian : Prayer shared, Spiritual/Moravian support provided Aman Lujan Chaplain - 05/12/2022 15:58 EDT documented in this encounter Plan of Treatment Not on file documented as of this encounter Visit Diagnoses Not on filedocumented in this encounter
--- OUTSIDE RECORDS SUMMARY | 2025-04-25 14:38 | XMS_ITS | Encounter Summary ---
Author Organization [employer] Address [address] [place] [address] Care Team Providers Care Clerical Secretary Name Role Phone Unavailable Primary Care Provider Unavailabl e Encounter Details Date Type Department Care Team (Late st Contact Info) Description 10/14/2019 Transcribed Document [facility] [place] [facility] [place] [address] ProviderEvangelista MD [address], [place] [id number] Social History Tobacco Use Types Packs/Day Years Used Date Smoking Tobacco: Never Assessed Comments Unknown Sex and Gender Information Value Date Recorded Sex Assigned at Not on file Legal Sex Female 3:10 PM CDT Gender Identity Not on file Sexual Orientation Not on file documented as of this encounter Miscellaneous Notes * Cerner Conversion Note - Evangelista Carbone MD - 10/14/2019 12:06 PM CUFF SETTER Patient: BEE COLON Age: 49 Years Sex: [...] 75% pain relief at this time with [place] 10/325 mg four times daily dosing, Tramadol [...] implantation with good coverage. 4. History of Btdbery-Jjgiu-Gvgoj involving the bilateral feet. 5. Left foot [...]
--- OUTSIDE RECORDS SUMMARY | 2025-04-25 14:38 | XMS_ITS | Encounter Summary ---
Author Organization [employer] Address [address] [place] [address] Care Team Providers Care Duty Manager Name Role Phone Unavailable Primary Care Provider Unavailabl e Encounter Details Date Type Department Care Team (Late st Contact Info) Description 08/12/2019 Transcribed Document [facility] [place] Family Medicine [facility] [place] [address] ProviderEvangelista MD [address] [place] [address] Social History Tobacco Use Types [...] cord stimulator implantation with good coverage. 3. Jqdzngi-Nkagd-Tqypi syndrome right foot. PROCEDURE/TEST ORDERED: Not present. PLAN: Will continue Ms. Colon on her current medication of [place] 10 mg. q.6 hours, Tramadol 50 mg. [...]
--- OUTSIDE RECORDS SUMMARY | 2025-04-25 14:38 | XMS_ITS | Encounter Summary ---
Author Organization [employer] iatives Address [address] [place] [address] Care Team Providers Care Database Security Administrator Name Role Phone Unavailable Primary Care Provider Unavailabl e Encounter Details Date Type Department Care Team (Late st Contact Info) Description 03/20/2022 Transcribed Document [facility] [place] [facility] [place] [address] ProviderEvangelista MD [address] [place] [address] Social History Tobacco Use Types [...] Evangelista ProviderMD - 03/20/2022 10:22 AM CDT [place] [address] BEE COLON :1970 Visit Time:03/20/2022 What [...] When 03/24/2022 02:00 PM EDT Where: [address] [place] [address]- Medications What How Much When Instructions Next [...] and water are not available, use hand industrial gas service helper. ? Change your dressing as told by [...] fried or sweet foods. ? Take an sjwi-qut-lxssevq or prescription medicine for constipation. ??? Do not use any products that contain nicotine or tobacco, such as cigarettes and e-cigarettes. These can delay bone healing after surgery. If you need help quitting, ask your health care provider. ??? Take msln-mfy-wjxcesv and prescription medicines only as told by [...] provider. Document Revised: 12/29/2019 Document Reviewed: 11/25/2018 Fluoresentric Patient Education ?? 2020 [employer]. Outpatient Surgery, Adult, Care After This sheet [...] children on your own. Medicines ??? Take gqwg-mcr-hjpijjh and prescription medicines only as told by [...] keep your urine pale yellow. ? Take quri-bpz-uazrdhi or prescription medicines. ? Eat foods that [...] added (diluted fruit juice). ? Eat bland, fxep-iu-okyjqu foods in small amounts as you are [...] and water are not available, use hand industrial gas service helper. ? Change your dressing as told by [...] drink clear fluids slowly and eat bland, xijl-bx-qkejrz foods in small amounts. ??? Ask your health care provider what activities are safe for you. This information is not intended to replace advice given to you by your health care provider. Make sure you discuss any questions you have with your health care provider. Document Revised: 03/01/2021 Document Reviewed: 08/23/2020 ElseSharecare Patient Education ?? 2020 [employer]. Emergency Awareness and Preventative Care STROKE is [...] Assistance with quitting is available by contacting 0-671-EKFL-NOW. This is a free resource providing counseling, [...] range between ( 0.0 and 7.0 ) Pepin #: 1.05 K/uL -- Normal range between ( 0.16 and 1.00 ) Eos #: 0.30 x10(3)/uL -- Normal range between ( 0.00 and 0.80 ) Pepin %: 8.5 % -- Normal range between [...] was given the opportunity to ask questions. Patient/Registered Nurse Ambulatory Name: Patient/Registered Nurse Ambulatory Signature: Relationship to Patient: Clinician/Hospital Registered Nurse Ambulatory Signature: Date: documented in this encounter Plan of Treatment Not on file documented as of this encounter Visit Diagnoses Not on filedocumented in this encounter
--- OUTSIDE RECORDS SUMMARY | 2025-04-25 14:38 | XMS_ITS | Clinical Summary ---
Author Organization Healthcare Address [address] [place] [address] Care Team Providers Care Editor Farm Journal Name Role Phone Diego Lynch MD Primary Care Provider [phone] Family History 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 Relation Name Comments [...] of Treatment Not on file Care Teams Editor Farm Journal Relationship Specialty Start Date End Date Diego Lynch MD [address] [facility] [address] [facility] [address] [place] [address] PCP - General 03/29/21
--- OUTSIDE RECORDS SUMMARY | 2025-04-25 14:38 | XMS_ITS | Encounter Summary ---
Author Organization [employer] Address [address] [place] [address] Care Team Providers Care Expansion Joint Builder Name Role Phone Unavailable Primary Care Provider Unavailabl e Encounter Details Date Type Department Care Team (Late st Contact Info) Description 10/10/2020 Transcribed Document [facility] [place] [address] [place] [address] ProviderEvangelista MD [address] [place], [place] [id number] Social History Tobacco Use Types Packs/Day Years Used Date Smoking Tobacco: Never Assessed Comments Unknown Sex and Gender Information Value Date Recorded Sex Assigned at Not on file Legal Sex Female 3:10 PM CDT Gender Identity Not on file Sexual Orientation Not on file documented as of this encounter Miscellaneous Notes * Cerner Conversion Note - Evangelista Carbone MD - 10/10/2020 10:58 AM POWER SHEAR OPERATOR Patient: BEE COLON Age: 50 Years Sex: [...] diabetic peripheral neuropathy with spinal cord stimulator, [employer] system. CURRENT PLAN: Ms. Colon and I discussed different options with her medication and her spinal cord stimulator. We have decided to get smooth of [employer] about reprogramming before we do anything with her medication. So, I have contacted them and asked if they could call her. I am going to continue her on her Mcneil 10 mg every 6 hours, Lyrica 200 [...]
--- OUTSIDE RECORDS SUMMARY | 2025-04-25 14:38 | XMS_ITS | Encounter Summary ---
Author Organization [employer] Address [address] [place] [address] Care Team Providers Care Leadership Development Consultant Name Role Phone Unavailable Primary Care Provider Unavailabl e Encounter Details Date Type Department Care Team (Late st Contact Info) Description 03/20/2022 Transcribed Document [facility] [place] [facility] [place] [address] ProviderEvangelista MD [address] [place] [address] Social History Tobacco Use Types [...] Evangelista ProviderMD - 03/20/2022 9:01 AM CDT [facility] Main OR IntraOp Summary Primary Physician: ANGELA GRENE DPM-POD Finalized Date/Time: 03/21/22 10:42:50 Pt. Name: BEE COLON/Sex: 1970 Female Med Rec #: [id number] Physician: ANGELA GREEN DPM-POD Financial #: [id number] Pt. Type: O Room/Bed: /6 Admit/Disch: 03/20/22 06:30:00 - 03/20/22 10:56:00 Institution: [facility] IntraOp Case Attendance Entry 1 Entry 2 Entry 3 Case Attendee ANGELA GREEN DPM-POD DODD, ANDREW, Non Emp Abilio, Rakan, PAPER CORE MACHINE OPERATOR Student Nurse Bricklayer Apprentice Role Performed Surgeon/Proceduralist, Student PAPER CORE MACHINE OPERATOR/Nurse Bricklayer Apprentice First Time In 03/20/22 08:45:00 03/20/22 08:45:00 [...] GRETA Role Performed Anesthesiologist of Scrub, First Surgical Assistant, First Record Time In 03/20/22 08:45:00 03/20/22 [...] Superficial Wound Closed By: Last Modified By: iMlly Powers RN Versteeg, Beckie, RN 03/20/22 09:54:47 03/20/22 09:54:47 [facility] IntraOp Case Attendance Audit 03/20/22 09:54:47 Insurance Law Specialist: [id number] Modifier: [id number] 1 <+> Time Out 1 <*> Procedure [...] Time Out <+> 8 Procedure 03/20/22 09:14:11 Insurance Law Specialist: [id number] Modifier: [id number] <+> 1 Procedure 2 <+> Time In [...] <*> Procedure Hardware Removal Leg Or Foot [facility] IntraOp Case Times Entry 1 Patient In Room Time 03/20/22 08:45:00 Out Room Time 03/20/22 09:54:00 Anesthesia Start Time 03/20/22 08:45:00 Stop Time 03/20/22 09:54:00 Surgery / Procedure Times Start Time 03/20/22 09:01:00 Stop Time 03/20/22 09:50:00 Last Modified By: Milly Powers RN 03/20/22 09:54:23 [facility] IntraOp Case Times Audit 03/20/22 09:54:23 Insurance Law Specialist: [id number] Modifier: [id number] <+> 1 Out Room Time <+> 1 Stop Time <+> 1 Stop Time [facility] IntraOp Cautery Entry 1 ESU Identification Cautery Type Monopolar ESU ID Number [id number] ID Type Hospital Number Cautery Settings Cut Setting 30 Coag Setting 30 ESU Grounding Pad Ground Pad Type Adult Grounding Pad Site Right thigh Grounding Pad Milly Powers RN Applied By Grounding Pad Site Warm, dry and intact Skin Condition Before Cautery Grounding Pad Site Unchanged Skin Condition After Cautery Last Modified By: Milly Powers RN 03/20/22 09:05:57 [facility] IntraOp Communication Entry 1 Communication To Family/Significant other Comment ATTAMPTED NO ANSWER Communication By Milly Powers RN Date and Time 03/20/22 09:06:00 Last Modified By: Milly Powers RN 03/20/22 09:07:11 [facility] IntraOp Counts Verification Entry 1 Procedure Hardware Removal Leg Or Foot Count Info Count Type Sponge, Sharps Counts Verification Baseline/pre-procedure Sequence Count Results Not Applicable Counts Performed By Count Performed By ZHANNA LU ST (Scrub) Count Performed By Milly Powers RN (RN) Last Modified By: Milly Powers RN 03/20/22 09:07:31 [facility] IntraOp Counts Final Entry 1 Procedure Hardware Removal Leg Or Foot Final Count Info Count Type Sponge, Sharps Counts Verification Skin Closure/end of Sequence procedure Count Results Correct, surgeon notified Counts Performed By Count Performed By ZHANNA LU ST (Scrub) Count Performed By Milly Powers RN (RN) Last Modified By: Milly Powers RN 03/20/22 09:36:01 [facility] IntraOp Counts Final Audit 03/20/22 09:36:01 Insurance Law Specialist: [id number] Modifier: [id number] 1 <*> Procedure Hardware Removal Leg Or Foot 1 <+> Count Performed By (Scrub) 1 <+> Count Performed By (RN) [facility] IntraOp Cultures and Spec Summary Entry 1 Cultrures and Specimens Specimen Ordered: Yes Test(s) Routine/Path-Lab Requested/Final Disposition Last Modified By: Milly Powers RN 03/20/22 09:07:47 [facility] IntraOp Departure from OR Entry 1 Integumentary Assessment Integumentary WDL Assessment WDL Transfer/Handoff Transfer to Ambulatory unit, Phase II Handoff Method Phone call, Online nursing summary Post-op Transport Stretcher/Nanyney Via Patient Transport Iza Smiley RN Accompanied by Last Modified By: Milly Powers RN 03/20/22 09:55:30 [facility] IntraOp Departure from OR Audit 03/20/22 09:55:30 Insurance Law Specialist: [id number] Modifier: [id number] <+> 1 Transfer to 03/20/22 09:54:59 Insurance Law Specialist: [id number] Modifier: [id number] 1 <*> Patient Transport Accompanied by Milly Powers RN [facility] IntraOp Dressing and Packing Entry 1 Type Dressing Location OPSITE Wound Dressing Item 4x4's, Adaptic, Kerlix/Feng, Cristian, ABD dressing pad Applied By ANGELA GREEN DPM-POD Other Comments BETADINE SOLUTION ON STERILE FIELD Last Modified By: Milly Powers RN 03/20/22 09:08:34 [facility] IntraOp Explant Log Entry 1 Explant Log Description PLATE AND 8 SCREWS Explant Site RIGHT FOOT Removal Reason No longer needed Disposition Sent to pathology Last Modified By: Milly Powers RN 03/20/22 09:40:31 [facility] IntraOp Explant Log Audit 03/20/22 09:40:31 Insurance Law Specialist: [id number] Modifier: [id number] 1 <*> Description PLATE AND SCREWS 03/20/22 09:32:54 Insurance Law Specialist: [id number] Modifier: [id number] 1 <*> Description PLATE AND [facility] IntraOp Fire Risk Assessment Entry 1 [...] Modified By: Milly Powers RN 03/20/22 09:08:55 [facility] IntraOp General Case District Superintendent 1 Case Information OR OR 04 [facility] Case Level 1 Room Verified Yes Wound Class 1 - Clean Specialty Podiatry Anesthesia Type MAC ASA Class 3 Diagnosis Preop Diagnosis RETAINED HARDWARE RIGHT FOOT Postop Same As Preop No Postop Diagnosis SEE POST OP NOTE Wound Class Definitions Last Modified By: Milly Powers RN 03/20/22 09:11:08 [facility] IntraOp Implant Log Entry 1 Type Tissue Implant (Biologic) Implant Log Implant ALLOGRFT TENSIX 5CC DBM Identification [facility]-[id number] Description Implant Quantity 1 Implant Site RIGHT FOOT Implant [id number] Identification Model Number Implant [id number] Identification Lot Number Implant [facility] Grp:Faustino Mark Med Tech Electrician Aircraft Name: Implant [id number] Identification Catalog Number Implant Has an Yes Expiration Date Implant Expiration 07/16/23 Date Tissue Implant Graft Prep Per N/A Electrician [employer] Instructions: Last Modified By: Milly Powers RN 03/20/22 09:26:43 [facility] IntraOp Intraoperative Assessment Entry 1 Handoff [...] Modified By: Milly Powers RN 03/20/22 09:11:25 [facility] IntraOp Intraoperative Equipment Entry 1 Type Equipment Equipment Equipment Waste Management System ID Number [id number] Setting ON Intraop Monitoring Antiembolic Devices Scopes Photo/Video Documentation Last Modified By: Milly Powers RN 03/20/22 09:11:47 [facility] IntraOp Medication Admin Entry 1 Entry 2 Medication/Irrigant Bupivicaine/Marcaine 1% LIDOCAINE/2ML 0.5% 30ml - [id number] PRESERVATIVE FREE - [id number] Combo Med List 1 - Combo Med 2 - Combo Med Time Administered 03/20/22 09:01:00 03/20/22 09:01:00 Route of Administration Dose Dose 10 10 Unit of Measure ml ml Volume Administered By ANGELA GREEN DPM-POD ANGELA GREEN DPM-LOIS Procedure Irrigation Irrigant Volume In Irrigant Volume Out Last Modified By: Milly Powers RN Versteeg, Beckie, RN 03/20/22 09:13:36 03/20/22 09:13:36 [facility] IntraOp Patient Positioning Entry 1 Procedure [...] WEDGE. Positioned By Milly Powers RN, Rakan Knxo CRNA, ANGELA GREEN DPM-POD, ALLIE MENDES, Non Emp Student Nurse Bricklayer Apprentice Position Verified Positioning Yes Verified by Anesthesia Positioning Yes Verified by Surgeon Last Modified By: Milly Powers RN 03/20/22 09:14:08 [facility] IntraOp Sign In Entry 1 Patient, [...] Modified By: Milly Powers RN 03/20/22 09:14:22 [facility] IntraOp Sign Out Entry 1 RN [...] Modified By: Milly Powers RN 03/20/22 09:55:07 [facility] IntraOp Sign Out Audit 03/20/22 09:55:07 Insurance Law Specialist: [id number] Modifier: [id number] <+> 1 RN Sign Out Signature Date/Time [facility] IntraOp Skin Prep Entry 1 Procedure Hardware Removal Leg Or Foot Prescribed Yes Pre-Surgical Prep Completed Prep Area RIGHT FOOT Intraop Prep Integumentary WDL Assessment WDL Prep Agents Betadine scrub, Betadine solution Prep by Milly Powers RN Hair Removal Last Modified By: Milly Powers RN 03/20/22 09:14:58 [facility] IntraOp Surgical Procedures Entry 1 Procedure Hardware Removal Leg Or Foot Additional REMOVAL OF HARDWARE ON Procedure RIGHT FOOT Description Primary Procedure Yes Primary Surgeon ANGELA GREEN DPM-POD Start 03/20/22 09:01:00 Stop 03/20/22 09:50:00 Anesthesia Type MAC Specialty Podiatry Wound Class 1 - Clean Last Modified By: Milly Powers RN 03/20/22 09:55:09 [facility] IntraOp Surgical Procedures Audit 03/20/22 09:55:09 Insurance Law Specialist: [id number] Modifier: [id number] <+> 1 Stop 03/20/22 09:15:18 Insurance Law Specialist: [id number] Modifier: [id number] 1 <*> Procedure Hardware Removal Leg Or Foot 1 <+> Wound Class 1 <*> Additional Procedure Description (REMOVAL OF HARDWARE ON RIGHT FOOT) [facility] IntraOP Time Out Entry 1 Procedure [...] Modified By: Milly Powers RN 03/20/22 09:18:23 [facility] IntraOP Time Out Audit 03/20/22 09:18:23 Insurance Law Specialist: [id number] Modifier: [id number] 1 <+> Venous Thromboembolism Prophylaxis Required 1 <*> Procedure to be Performed Hardware Removal Leg Or Foot 03/20/22 09:16:55 Insurance Law Specialist: [id number] Modifier: [id number] <+> 1 Beta Dmitriy Administered <+> 1 All activity suspended (unless life threatening emergency) <+> 1 Antibiotic Prophylaxis Administered Or In Progress Within the Last 60 Minutes <+> 1 Surgeon <+> 1 Anesthesia Provider <+> 1 Nursing Assures <+> 1 Time Out Pause Time <+> 1 Procedure to be Performed <+> 1 Team Verbally Confirms Information 03/20/22 09:16:22 Insurance Law Specialist: [id number] Modifier: [id number] Entry 1 was deleted. Higher numbered entries [...] Performed in location of procedure after prepped/draped [facility] IntraOp Tourniquet Entry 1 Type Pneumatic Serial/Unit Number [id number] Setting 250 mmHg Pheumatic Yes Tourniquet Checked Per Protocol Size 18 inches Placement Ankle, right Skin Protection - Yes Padded Under Cuff Applied By ANGELA GREEN DPM-POD Removed By ANGELA GREEN DPM-POD Times Start Time 03/20/22 09:01:00 Stop Time 03/20/22 09:48:00 Total Time 47 calculated manually (Mins) Last Modified By: Milly Powers RN 03/20/22 09:49:29 [facility] IntraOp Tourniquet Audit 03/20/22 09:49:29 Insurance Law Specialist: [id number] Modifier: [id number] <+> 1 Total Time calculated manually (Mins) <+> 1 Stop Time Case Comments <None> Finalized By: ROBINSON WARREN Document Signatures Signed By: Milly Powers RN 03/20/22 09:55 ROBINSON WARREN 03/21/22 10:42 Unfinalized History Date/Time Username Reason for Unfinalizing Freetext Reason for Unfinalizing 03/21/22 10:41 WATTSDR Correct Billing Electronically signed by Atul [facility] Conversion Sliver Former Cerner at 03/05/2023 7:05 PM CDT documented in this encounter Plan of Treatment Not on file documented as of this encounter Visit Diagnoses Not on filedocumented in this encounter
--- OUTSIDE RECORDS SUMMARY | 2025-04-25 14:38 | XMS_ITS ---
Author Organization [facility] Support Name Relationship Address Phone Isaiah, Sissy Guarantor [address] [place], [place] [phone] Isaiah, Sissy Agent [address] [place], [place] [phone] Allergies and adverse reactions Code CodeSystem Substance Reaction Severity StartDate Concern Status 7804 RXNORM Oxycodone Skin reaction - finding (code- 606958790, SNOMED CT) Mild 04/15/2018 active Morphine and Related Nausea (code- 498058113, SNOMED CT) Mild 04/15/2018 active 2670 RXNORM Codeine Skin reaction - finding (code- 375984134, SNOMED CT) Mild 04/15/2018 active 723 RXNORM Amoxicillin Skin reaction - finding (code- 776197267, SNOMED CT) Mild 04/15/2018 active Immunizations Immunization Status Vaccine Details Vaccine Code CodeSystem Date Notes TB 1 Step Mantoux (PPD) completed tuberculin skin test; unspecified formulation lotNumber: [id number] expiry: 10/01/2020 Mfg: Tubersol Given 0.1 ml Right Forearm intradermally 98 CVX created date: 04/15/2018 consent date: 04/15/2018 administer ed date: 04/15/2018 resident left facility AMA on 04/15/18 Problems Problem # Description Date of onset Resolved Date Code CodeSystem Concern Status 1 CHARCOT'S JOINT, RIGHT ANKLE AND FOOT 04/15/[address] active 2 DERANGEMENT OF OTHER LATERAL MENISCUS DUE TO OLD TEAR OR INJURY, RIGHT KNEE 04/15/[address] active 3 ESSENTIAL (PRIMARY) HYPERTENSION 04/15/[address] active 4 OLD MYOCARDIAL INFARCTION 04/15/[address] active 5 OTHER OBESITY DUE TO EXCESS CALORIES 04/15/[address] active 6 PROLAPSE OF VAGINAL VAULT AFTER HYSTERECTOMY 04/15/[address] active 7 TYPE 2 DIABETES MELLITUS WITH FOOT ULCER 04/15/[address] active 8 VITAMIN D DEFICIENCY, UNSPECIFIED 04/15/[address] active Reason for Referral No Reasons for Referral Entered Social History Social History Observation Description Start Date End Date Code Code System Current Smoking Status Tobacco smoking consumption unknown 327325337 SNOMED CT Sex Assigned At Female 1970 06027-8 [facility] Gender Identity Vital Signs Code Code System Vitals Name Values and Units Timing Information 96009-5 [facility] Weight Qmilt=065.4 Units=Lbs 9279-1 [facility] Respiratory Rate Value=20.0 Units=/m in 04/15/2018 8462-4 [facility] Blood Pressure-Diastolic Value=70 Un its=mmHg 04/15/2018 8480-6 [facility] Blood Pressure-Systolic Ufhkx=960 Un its=mmHg 04/15/2018 8310-5 [facility] Body Temperature Value=97.3 Units= F 04/15/2018 8867-4 [facility] Heart rate Value=98.0 Units=/min 8302-2 [facility] Height Value=66.0 Units=Inches 04/15/2018 17517-7 [facility] O2 % BldC Oximetry Value=96.0 Units= % 04/15/2018
--- OUTSIDE RECORDS SUMMARY | 2025-04-25 14:38 | XMS_ITS | Encounter Summary ---
Author Organization [employer] Address [address] [place] [address] Care Team Providers Care Bar Tender Name Role Phone Unavailable Primary Care Provider Unavailabl e Encounter Details Date Type Department Care Team (Late st Contact Info) Description 07/11/2021 Transcribed Document [facility] [place] [facility] [place] [address] ProviderEvangelista MD [address] [place] [address] Social History Tobacco Use Types [...] these instructions at home: Medicines ??? Take uznm-bif-vnnwfrs and prescription medicines only as told by [...] and water are not available, use hand cream separator operator. ? Change your dressing as told by [...] provider. Document Revised: 10/25/2019 Document Reviewed: 10/25/2019 [employer] Patient Education ? 2020 [employer]Where. Obstetrics and Gynecology Monitored Anesthesia Care, Care [...] eating solid foods. General instructions ??? Take lhda-juh-ieluqbv and prescription medicines only as told by [...] provider. Document Revised: 01/31/2019 Document Reviewed: 02/22/2017 [employer] Patient Education ? 2020 [employer] documented in this encounter Plan of Treatment Not on file documented as of this encounter Visit Diagnoses Not on filedocumented in this encounter
--- OUTSIDE RECORDS SUMMARY | 2025-04-25 14:38 | XMS_ITS | Encounter Summary ---
Author Organization [employer] Address [address] [place] [address] Care Team Providers Care Director Of Guidance In Public [employer] Name Role Phone Unavailable Primary Care Provider Unavailabl e Encounter Details Date Type Department Care Team (Late st Contact Info) Description 07/11/2021 Transcribed Document [facility] [address] [place] [address] Dennis Greco MD [address] [place] [address] Social History Tobacco Use Types Packs/Day Years [...]
--- OUTSIDE RECORDS SUMMARY | 2025-04-25 14:38 | XMS_ITS | Encounter Summary ---
Author Organization [employer] Address [address] [place] [address] Care Team Providers Care Franchise Development Manager Name Role Phone Unavailable Primary Care Provider Unavailabl e Encounter Details Date Type Department Care Team (Late st Contact Info) Description 07/11/2021 Transcribed Document [facility] [place] [facility] [place] [address] ProviderEvangelista MD [address] [place] [address] Social History Tobacco Use Types [...] ProviderMD - 07/11/2021 11:07 AM CDT [facility] Main OR PostOp Summary Primary Physician: MANI THOMAS MD-SUR Finalized Date/Time: 07/11/21 17:49:06 Pt. Name: BEE COLON/Sex: 1970 Female Med Rec #: [id number] Physician: MANI THOMAS MD-SUR Financial #: [id number] Pt. Type: O Room/Bed: Admit/Disch: 07/11/21 08:06:00 - Institution: [facility] Main OR PostOp Case Times Entry [...]
[2025-04-25 14:57] LABS: POC Glucose,Bedside 254 (70-110)
--- NOTE | 2025-04-25 16:01 | HMH.ITSTN ---
WENT UP TO GET PATIENT FOR MRI , WHEN SCREENING PATIENT SHE STATED THAT SHE HAS A SPINAL CORD STIMULATOR. INFORMATION HAS BEEN REQUESTED FROM HOSPITAL THAT SHE HAD IT DONE AT, DUE TO THE PATIENT NOT HAVING HER IMPLANT INFORMATION WITH HER. CALLED DR. MORALES OFFICE TO INFORM THEM ABOUT THE PATIENT HAVING AN IMPLANT AND NEEDING THE INFORMATION ON IT. PATIENT ALSO STATED THE THE IMPLANT IS AND HASN'T BEEN CHARGED. WILL UPDATE DR. MORALES OFFICE AND 2ND FLOOR WHEN WE GET THE IMPLANT INFO.
[2025-04-25 16:41] LABS: POC Glucose,Bedside 354 (70-110)
[2025-04-25] MEDS: HYDROCODONE 10MG/APAP 325MG TAB 1 TAB PO (16:52)
--- NOTE | 2025-04-25 17:23 | HMH.ITSTN ---
called rn to let her know that device is unsafe and to let dr. garcia know as well , office was closed when information was faxed to us.
--- NOTE | 2025-04-25 19:15 | CT_ITS ---
PROCEDURE INFORMATION: Exam: CT Right Lower Extremity Without Contrast, Foot Exam date and time: 04/25/2025 9:20 PM Age: 54 years old Clinical indication: Pain; Foot; Right; Additional info: Osteomyelitis of foot vs toes? TECHNIQUE: Imaging protocol: CT of the right lower extremity without contrast was performed. Exam focused on the foot. Radiation optimization: All CT scans at this facility use at least one of these dose optimization techniques: automated exposure control; mA and/or kV adjustment per patient size (includes targeted exams where dose is matched to clinical indication); or iterative reconstruction. COMPARISON: CT FOOT RT WO CON 07/12/2023 1:21 PM FINDINGS: Tubes, catheters and devices: Hardware is intact. Bones/joints: There is a poorly visualized fracture deformity of the 2nd toe proximal phalanx axial image 3/81 sagittal image 1002/41. There is perifocal soft-tissue swelling image 4/81. Extensive postoperative changes with evidence of prior talocalcaneal, calcaneal cuboid and 1st tarsometatarsal fusion stabilized by orthopedic hardware. Findings similar to 07/12/2023. Bone metal interface is unremarkable. Additional bony fusion within the midfoot, stable. There are no osteolytic or destructive bone changes. No evidence for periostitis. There are loose bodies within the anterior posterior ankle recess is presumed degenerative in nature. Soft tissues: Diffuse fatty atrophy throughout the musculature. Focal soft tissue thickening extending from the skin surface to the base of the 3rd MTP joint. No abscess collection detected. Other findings: There is small subcortical lucency in the medial tibial metaphysis; unchanged compared with 07/12/2023. IMPRESSION: 1. There is a poorly visualized fracture deformity of the 2nd toe proximal phalanx axial image 3/81 sagittal image 1002/41. There is perifocal soft-tissue swelling image 4/81. This could represent a pathologic fracture due to osteomyelitis. MRI may be helpful to further delineate this finding. 2. Extensive postoperative changes with evidence of prior talocalcaneal, calcaneal cuboid and 1st tarsometatarsal fusion stabilized by orthopedic hardware. Findings similar to 07/12/2023 3. Hardware is intact. 4. Bone metal interface is unremarkable. 5. Additional bony fusion within the midfoot, stable. 6. There are no osteolytic or destructive bone changes. No evidence for periostitis. 7. There is small subcortical lucency in the medial tibial metaphysis; unchanged compared with 07/12/2023. 8. There are loose bodies within the anterior posterior ankle recess is presumed degenerative in nature.
[2025-04-25] MEDS: INSULIN GLARGINE 100 UNITS/ML 3ML FLEXPEN 50 UNIT SUBCUT (20:52)
[2025-04-25] MEDS: ATORVASTATIN 40MG TABLET 40 MG PO (20:53)
[2025-04-25] MEDS: NYSTATIN TOPICAL POWDER 30GM TP (20:55)
--- NOTE | 2025-04-25 21:14 | PC.NURSE ---
Patient left floor with staff for CT at 21:14.
--- NOTE | 2025-04-25 21:25 | PC.NURSE ---
Patient arrived back to floor with staff from CT at 21:25.
[2025-04-26] VITALS (20 sets, daily range): BP systolic 81–119; BP diastolic 42–90; PULSE 60–84; RESP 14–22; TEMP 36.7–43; O2SAT 92–96; BMI 43.7
[2025-04-26] MEDS: METRONIDAZ/SOD CHL 500 MG/100 ML PIGGYBACK 100 MG IV ×3 (00:20→18:17)
[2025-04-26] MEDS: VANCOMYCIN HCL 2,000 MG in 0.9 % SODIUM CHLORIDE 250 ML 125 MG IV (01:25)
[2025-04-26 01:50] LABS: POC Glucose,Bedside 350 (70-110)
[2025-04-26 06:30] LABS: MANUAL DIFFERENTIAL MANUAL DIFFERENTIAL (MANUAL DIFF)
[2025-04-26 06:35] LABS: Basophils # 0.1 K/mm3 (0-0.2); Basophils % 0.7 % (0.1-2.0); Eosinophils # 0.5 Kmm3 (0.0-0.4); Eosinophils % 6.1 % (0.1-12.0); Hematocrit 36.8 % (37.0-47.0); Hemoglobin 11.6 g/dL (12.2-16.2); Lymphocytes # 1.5 K/mm3 (0.7-4.5); Lymphocytes % 20.3 % (10-50); Mean Corpuscular HGB Conc 31.5 g/dL (31.8-35.4); Mean Corpuscular Hemoglobin 27.2 pg (27.0-31.2); Mean Corpuscular Volume 86.4 fl (81-99); Mean Platelet Volume 10.7 fl (7.4-10.4); Monocytes # 0.8 K/mm3 (0.1-1.0); Monocytes % 10.2 % (1.7-9.3); Neutrophils # 4.7 K/mm3 (1.8-7.8); Neutrophils % 62.2 % (37.0-80.0); Platelet Count 249 K/mm3 (142-424); Red Blood Count 4.26 M/mm3 (4.20-5.40); Red Cell Distribution Width 14.5 % (11.5-17.5); White Blood Count 7.5 K/mm3 (4.8-10.8)
[2025-04-26 06:49] LABS: Chloride 104 mmol/L (98-107); Potassium 4.4 mmoL/L (3.5-5.1); Sodium 135 mmol/L (136-145)
[2025-04-26 06:52] LABS: Blood Urea Nitrogen 14 mg/dl (7-17); Creatinine Clearance Estimated 53 mL/min (50-200); Estimated Glomerular Filt Rate 51 ml/min (>60); GFR (African American) 62 ML/MIN (>60)
[2025-04-26 06:53] LABS: Anion Gap 7.4 mEq/L (5-15); Calcium 8.6 mg/dl (8.4-10.2); Carbon Dioxide 28 mmol/L (22.0-30.0); Glucose 330 mg/dl (74-100)
[2025-04-26 06:56] LABS: POC Glucose,Bedside 333 (70-110)
[2025-04-26] MEDS: MORPHINE 4MG/ML SYRINGE 4 MG IV ×2 (07:07→11:27)
[2025-04-26] MEDS: humaLOG 100 UNITS/ML 10ML VIAL (SSI) SUBCUT ×3 (07:08→21:36)
[2025-04-26] MEDS: humaLOG 100 UNITS/ML 10ML VIAL (SSI) 10 UNIT SUBCUT ×2 (07:08→11:55)
[2025-04-26 09:25] LABS: Eosinophils % 8 % (0-3); Lymphocytes % 22 % (10-50); Monocytes % 7 % (2-9); Neutrophils % 63 % (42-76); Platelet Estimate Normal; RBC Morphology Normal; Total Cells Counted 100
[2025-04-26] MEDS: ISOSORBIDE MONO 60MG TAB.ER.24H 60 MG PO (09:42)
[2025-04-26] MEDS: RANOLAZINE 500MG ER TABLET 1000 MG PO ×2 (09:42→21:33)
[2025-04-26] MEDS: METOPROLOL TARTRATE 50MG TABLET 100 MG PO (09:43)
[2025-04-26] MEDS: DULOXETINE 30MG CAPSULE.DR 60 MG PO ×2 (09:43→21:32)
[2025-04-26] MEDS: SPIRONOLACTONE 25MG TABLET 25 MG PO (09:43)
[2025-04-26] MEDS: DAPAGLIFLOZIN PROPANEDIOL 10 MG TABLET PO (09:43)
[2025-04-26] MEDS: INSULIN GLARGINE 100 UNITS/ML 3ML FLEXPEN 60 UNIT SUBCUT ×2 (09:44→21:39)
[2025-04-26] MEDS: PREGABALIN 100MG CAPSULE 200 MG PO ×2 (10:00→21:41)
[2025-04-26 10:03] LABS: POC Glucose,Bedside 280 (70-110)
[2025-04-26] MEDS: CEFEPIME HCL 2 GM in 0.9 % SODIUM CHLORIDE 100 ML IV ×2 (11:28→21:35)
[2025-04-26 11:42] LABS: POC Glucose,Bedside 227 (70-110)
[2025-04-26 13:04] LABS: Vancomycin,Trough 30.6 ug/mL (5.0-10.0)
[2025-04-26 13:47] LABS: POC Glucose,Bedside 160 (70-110)
--- NOTE | 2025-04-26 13:47 | P.PNANES_ITS ---
[facility] Disclaimer: The information contained in this section may have been updated after the patient was seen, as this information can be updated by other users. 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 (Updated 04/25/25 @ 03:26 by Abby Espinoza RN) Migraine Osteoarthritis History of diverticulitis History of cataract History of left heart catheterization Recurrent major depression resistant to treatment Blood culture positive for microorganism Anemia HTN (hypertension) Type 2 diabetes mellitus with diabetic neuropathy, with long-term current use of insulin History of myocardial infarction Hyperlipemia CAD (coronary artery disease) Hx MRSA infection Essential hypertension Vitamin D deficiency Surgical History (Updated 04/25/25 @ 03:26 by Abby Espinoza RN) H/O shoulder surgery Hx of BKA History of appendectomy History of cholecystectomy History of hysterectomy History of hand surgery History of foot surgery Social History (Updated 04/25/25 @ 03:26 by Abby Espinoza RN) Smoking Status: Never smoker smoking status stop date: 07/17/2023 second hand exposure: No alcohol intake: never counseling given: No substance use type: denies use counseling given: No current occupational status: disabled Travel in the last 8 weeks?: None adopted: No caregiver/support person: No foster care: No household members: children housing: house lives independently: Yes marital status: number of children: 1 number of grandchildren: 0 education level: high school 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; 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 current occupational exposures/hazards: Yes pets and animals: Yes pets and animals: cat(s) Hx Recent Travel: No sexually active: No caffeine: Yes physical activity: none dyana/jain: Quaker special dyana needs: No working smoke detector in home: Yes fire extinguisher in home: Yes carbon monox detector in home: Yes firearms in home: No do you feel safe at home: Yes victim of physical abuse: No victim of emotional abuse: No victim of sexual abuse: No would you like helpful sources: No Have you lived/traveled outside [place] in past 30 days?: No Contact w/someone who lives/traveled outside US past 30 days?: No Exposure to someone with infectious disease in past 14 days?: No Do you have a fever (greater than 100.4 F or 38 C)?: No Have you tested positive for COVID-19?: No Exposed to someone with COVID-19 in past 14 days?: No Do you have a sore throat?: No Do you have a cough?: No Do you have any weakness?: No Do you have any diarrhea?: No Are you experiencing any unusual bleeding?: No Do you have any muscle aches/pain?: No Do you have any abdominal pain?: No Are you experiencing loss of taste or smell?: No [facility] Anesthesia Checklist Patient Identification Patient Identification: Verbal (Name & ) Structural Data Admitted From: Inpatient Planned Operative Procedure/s: toe amp Consent for Planned Operative Procedure(s) Verified: Yes NPO Status Verified Time NPO: 00:00 Additional verifications Anesthesia Reactions: No Hx Blood Transfusions: No Blood Transfusion Reaction: No Airway Assessment Mallampati Score:: Class II C-Spine Mobility Assessed: Yes TMJ Mobility Assessed: Yes Dentition: Good Dentition Neurological Assessment Level of Consciousness: Awake, Alert and Appropriate Anesthesia Plan Anesthesia Risk discussed: Yes Anesthesia Plan: Verified ASA Class: II Anesthesia Type: General
--- NOTE | 2025-04-26 14:23 | EXP.PHA.CONS ---
Pharmacy Consult Date: 04/26/25 Time: 14:24 Referring provider: DR. MOREJON Reason for Consult:: VANCOMYCIN LEVEL AND DOSE CHANGE Allergies Allergy/AdvReac Type Severity Reaction Status Date / Time clopidogrel (From Plavix) Allergy Severe Hives Verified 01/16/25 14:44 amoxicillin (AMOXICILLIN) Allergy Unknown Unknown Verified 01/16/25 14:44 allergy reaction codeine (CODEINE) AdvReac Mild STOMACH Verified 01/16/25 14:44 CRAMPS morphine (MORPHINE) AdvReac Mild STOMACH Verified 01/16/25 14:44 CRAMPS oxycodone (From Percocet) AdvReac Mild STOMACH Verified 01/16/25 14:44 CRAMPS Home Medications ?Medication ?Instructions ?Recorded ?Confirmed ?Type aspirin 81 mg chewable tablet 81 mg PO DAILY HEART [facility]ALTH #90 12/12/24 04/25/25 Rx tabs isosorbide mononitrate 60 mg 60 mg PO DAILY #90 tabs 12/12/24 04/25/25 Rx tablet,extended release 24 hr metoprolol tartrate 100 mg tablet 100 mg PO BID #180 tabs 12/12/24 04/25/25 Rx ramipril 5 mg capsule 5 mg PO DAILY #90 caps 12/12/24 04/25/25 Rx rosuvastatin 20 mg tablet 20 mg PO DAILY #90 tabs 12/12/24 04/25/25 Rx spironolactone 25 mg tablet 25 mg PO DAILY #90 tabs 12/12/24 04/25/25 Rx dapagliflozin propanediol 10 mg 10 mg PO DAILY #90 tabs 01/16/25 04/25/25 Rx tablet ranolazine 1,000 mg 1,000 mg PO BID #60 tabs 01/16/25 04/25/25 Rx tablet,extended release,12 hr duloxetine 60 mg capsule,delayed 60 mg PO BID #180 caps 01/31/25 04/25/25 Rx release insulin glargine 100 unit/mL (3 50 unit (0.5 mL) SQ BID #12 mL 01/31/25 04/25/25 Rx mL) subcutaneous pen insulin syringe-needle U-100 0.5 #500 ea 01/31/25 04/25/25 Rx mL 31 gauge x 5/16 (Sure Comfort Insulin Syringe) tramadol 50 mg tablet 50 mg PO Q6H PRN breakthrough 01/31/25 04/25/25 Rx pain, moderate #120 tabs trazodone 100 mg tablet 100 mg PO HS #90 tabs 02/01/25 04/25/25 Rx ezetimibe 10 mg tablet 10 mg PO HS #90 tabs 02/07/25 04/25/25 Rx pen needle, diabetic 31 gauge x #1,200 ea 02/07/25 04/25/25 Rx 5/16 (Unifine Pentips) rivaroxaban 2.5 mg tablet (Xarelto) 2.5 mg PO BIDWMEAL #60 tabs 02/07/25 04/25/25 Rx insulin aspart U-100 100 unit/mL 18 unit (0.18 mL) SQ TID #45 mL 03/15/25 04/25/25 Rx (3 mL) subcutaneous pen (Novolog FlexPen U-100 Insulin aspart) blood-glucose sensor (Dexcom G7 #3 ea 03/28/25 04/25/25 Rx Sensor device) pregabalin 200 mg capsule 200 mg PO BID #180 caps 04/20/25 04/25/25 Rx hydrocodone 10 mg-acetaminophen 1 tab PO BIDP PRN Pain 04/25/25 04/25/25 History 325 mg tablet hydroxyzine HCl 25 mg tablet 25 mg PO HS 04/25/25 04/25/25 History New Prescriptions to Start Prescriptions: Height: 1.68 m Weight: 123.377 kg Laboratory Results:: Laboratory Results - last 24 hr 04/25/25 06:50: POC Glucose 254 H 04/25/25 16:32: POC Glucose 354 H* 04/25/25 20:53: POC Glucose 350 H* 04/26/25 06:12: WBC 7.5 D, RBC 4.26, Hgb 11.6 L, Hct 36.8 L, MCV 86.4, MCH 27.2, MCHC 31.5 L, RDW 14.5, Plt Count 249, MPV 10.7 H, Neut % (Auto) 62.2, Lymph % (Auto) 20.3, [place] % (Auto) 10.2 H, Eos % (Auto) 6.1, Baso % (Auto) 0.7, Neut # (Auto) 4.7, Lymph # (Auto) 1.5, [place] # (Auto) 0.8, Eos # (Auto) 0.5 H, Baso # (Auto) 0.1, Total Counted 100, Neutrophils % (Manual) 63, Lymphocytes % (Manual) 22, Monocytes % (Manual) 7, Eosinophils % (Manual) 8 H, Platelet Estimate Normal, RBC Morphology Normal, Sodium 135 L, Potassium 4.4, Chloride 104, Carbon Dioxide 28, Anion Gap 7.4, BUN 14 D, Creatinine 1.10 H D, Estimated Creat Clear 53, Estimated GFR 51 L, Est GFR ( Amer) 62 D, Glucose 330 H, Calcium 8.6 04/26/25 06:49: POC Glucose 333 H* 04/26/25 09:40: POC Glucose 280 H 04/26/25 11:26: POC Glucose 227 H 04/26/25 12:07: Vancomycin Trough 30.6 H 04/26/25 13:39: POC Glucose 160 H 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: 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 (Updated 04/25/25 @ 03:26 by Abby Espinoza RN) Migraine Osteoarthritis History of diverticulitis History of cataract History of left heart catheterization Recurrent major depression resistant to treatment Blood culture positive for microorganism Anemia HTN (hypertension) Type 2 diabetes mellitus with diabetic neuropathy, with long-term current use of insulin History of myocardial infarction Hyperlipemia CAD (coronary artery disease) Hx MRSA infection Essential hypertension Vitamin D deficiency Assessment and Plan Assessment and plan all Dx Assessment and Plan for all problems:: PATIENT'S VANCOMYCIN TROUGH LEVEL WAS 30.6 MCG/ML TODAY. RECOMMEND HOLDING DOSE OF VANCOMYCIN UNTIL 0700 ON 04/27/25. RESTART VANCOMYCIN AT 1750 MG Q18H AT THAT TIME.
[2025-04-26] MEDS: BUPIVACAINE 0.5% 30ML VIAL 150 MG (14:26)
--- NOTE | 2025-04-26 14:26 | PC.NURSE ---
notified pharmacy of [facility]
[2025-04-26] MEDS: SODIUM CHLORIDE IRRIG SOLUTION 3,000 ML 250 ML IR (14:27)
--- NOTE | 2025-04-26 15:10 | EXP.OP.NOTE ---
Date of procedure: 04/26/25 Pre-op Diagnosis:: Right foot second toe open wound infection Post-op Diagnosis:: Same Procedure performed:: Right foot second toe amputation Surgeon:: Gordon Williamson DO Restoration Officer(s):: Kade EWING ANIMAL STUNNER:: Pravin Rosario Anesthesia: GETA Estimated blood loss (mL): 0 Operative findings:: Open wound infection dorsum second toe Operative note:: Patient intraoperatively. Right lower extremity marked with yes my initials. Transferred for suite placed on the brain bed. General anesthesia administered airway secured. Right lower extremity prepped and draped in normal sterile fashion. Once prepped and draped final operative timeout performed to identify proper patient procedure and extremity everyone involved in the case agree there were no counter indications to beginning did receive preoperative antibiotics. Extremities elevated but not exsanguinated pneumatic tourniquet inflated to 300 mmHg skin knife is used to incise through the open wound on the dorsum of the second toe dissection was taken down to remove distal phalanx and infected tissue on the dorsum of the toe careful dissection was taken down around soft tissues and proximal phalanx removed down to healthy appearing second metatarsal head. Irrigation of bone fragments removed the bony fragments were removed with a rongeur and sent for culture The soft tissue was debrided the flexor tendon was cut. Irrigation repeated. The flap of the amputation was viable on the dorsum with blood supply. The dorsal flap was then brought anteriorly to close the wound and closed in layers with the skin closed with nylon stitch. Sterile dressing was placed well-padded soft dressing. Patient waken anesthesia taken recovery stable condition. Condition: stable Disposition: PACU Complications:: None apparent
--- NOTE | 2025-04-26 15:13 | EXP.ANES.I ---
[facility] Anesthesia Record Part I Anesthesia Record I Intake, IV Amount: 1,100 Hydration: Adequate Estimated blood loss (mL): 5 Urine output (mL): 0 Blood Products used (#): none Blood Pressure: 110/70 SaO2: 92 Pulse Rate: 73 Airway Patency: Patent Respiratory Rate: 16 Temperature: 98.1 F Patient is:: Drowsy and Stable Stable to PACU at:: 15:10
[2025-04-26 15:28] LABS: POC Glucose,Bedside 127 (70-110)
[2025-04-26 16:14] LABS: POC Glucose,Bedside 132 (70-110)
[2025-04-26] MEDS: LORazepam 0.5MG TABLET 0.5 MG PO (17:06)
--- NOTE | 2025-04-26 17:46 | PC.NURSE ---
notified MD of BP 90s/60s and some mild tremors. no new orders at this time. patient stated she feels anxious treated per MAR.
[2025-04-26] MEDS: ATORVASTATIN 40MG TABLET 40 MG PO (21:32)
[2025-04-26] MEDS: TRAZODONE 50MG TABLET 100 MG PO (21:34)
[2025-04-26] MEDS: 0.9 % SODIUM CHLORIDE 1000ML 500 ML IV (21:35)
[2025-04-26] MEDS: ENOXAPARIN 40MG/0.4ML SYRINGE 40 MG SUBCUT (21:36)
--- NOTE | 2025-04-26 22:29 | P.PN_ITS ---
Subjective *Date: 04/26/25 *Time: 22:29 Interval history: Patient alert and oriented this morning. Having intermittent twitches. Denies chest pain or shortness of breath. No nausea or vomiting. Afebrile. Seen on morning rounds, awaiting amputation of toe/toes Medical Exam Vital signs and Labs for Last 24 Hours: Vital Signs Temp Pulse Pulse Resp BP BP BP 04/26/25 20:00 98.8 F 82 15 93/51 L 04/26/25 18:45 80 14 81/50 L 04/26/25 18:32 04/26/25 18:15 98.3 F 79 16 101/56 L 04/26/25 17:45 79 18 112/90 04/26/25 17:15 81 20 102/57 L 04/26/25 17:00 04/26/25 16:45 72 22 88/54 L 04/26/25 16:30 76 22 96/62 L 04/26/25 16:15 75 18 90/61 L 04/26/25 16:05 76 18 96/42 L 04/26/25 16:00 98.3 F 72 20 91/50 L 04/26/25 15:30 80 18 107/62 L 04/26/25 15:20 76 18 110/46 L 04/26/25 15:14 98.1 F 73 16 110/70 04/26/25 15:10 98.1 F 70 18 102/57 L 04/26/25 12:00 98.1 F 66 17 119/75 04/26/25 11:00 04/26/25 09:00 04/26/25 08:00 98.1 F 66 17 119/75 04/26/25 08:00 04/26/25 07:00 04/26/25 05:00 04/26/25 04:00 98.4 F 60 20 109/64 L 04/26/25 03:00 04/26/25 01:00 04/26/25 00:00 84 18 109/57 L 04/25/25 23:00 Pulse Ox O2 Del Method 04/26/25 20:00 93 L Room Air 04/26/25 18:45 95 Room Air 04/26/25 18:32 Room Air 04/26/25 18:15 95 Room Air 04/26/25 17:45 92 L Room Air 04/26/25 17:15 93 L Room Air 04/26/25 17:00 Room Air 04/26/25 16:45 93 L Room Air 04/26/25 16:30 95 04/26/25 16:15 96 Room Air 04/26/25 16:05 94 L Room Air 04/26/25 16:00 95 Room Air 04/26/25 15:30 96 Room Air 04/26/25 15:20 94 L Room Air 04/26/25 15:14 04/26/25 15:10 94 L Room Air 04/26/25 12:00 94 L Room Air 04/26/25 11:00 Room Air 04/26/25 09:00 Room Air 04/26/25 08:00 94 L Room Air 04/26/25 08:00 Room Air 04/26/25 07:00 Room Air 04/26/25 05:00 Room Air 04/26/25 04:00 93 L Room Air 04/26/25 03:00 Room Air 04/26/25 01:00 Room Air 04/26/25 00:00 94 L Room Air 04/25/25 23:00 Room Air Intake and Output 04/26/25 04/26/25 04/26/25 07:59 15:59 23:59 Intake Total 630 / 2410 1300 / 2410 480 / 2410 Output Total 350 / 350 0 / 350 Balance 630 / 2060 950 / 2060 480 / 2060 Intake: Intake, Oral Amount 180 / 660 480 / 660 Intake, Total IV Amount 450 / 1750 1300 / 1750 Cefepime HCl 2 gm In 0.9 % 100 / 200 100 / 200 Sodium Chloride 100 ml @ 200 mls/hr IV Q12H PETE Rx#:[id number] Metronidaz/Sod Chl 500 mg In 100 / 200 100 / 200 100 ml @ 100 mls/hr IV Q8H PETE Rx#:[id number] Vancomycin HCl 2,000 mg In 0.9 250 / 250 % Sodium Chloride 250 ml @ 125 mls/hr IV Q12H PETE Rx#:[id number] Output: Output, Urine Amount 350 / 350 0 / 350 Other: Number of Unmeasured Voids 0 0 Weight 123.377 kg 123.377 kg Patient Weight 04/26/25 23:59 Weight 123.377 kg Laboratory Results - last 24 hr 04/25/25 20:53: POC Glucose 350 H* 04/26/25 06:12: WBC 7.5 D, RBC 4.26, Hgb 11.6 L, Hct 36.8 L, MCV 86.4, MCH 27.2, MCHC 31.5 L, RDW 14.5, Plt Count 249, MPV 10.7 H, Neut % (Auto) 62.2, Lymph % (Auto) 20.3, [place] % (Auto) 10.2 H, Eos % (Auto) 6.1, Baso % (Auto) 0.7, Neut # (Auto) 4.7, Lymph # (Auto) 1.5, [place] # (Auto) 0.8, Eos # (Auto) 0.5 H, Baso # (Auto) 0.1, Total Counted 100, Neutrophils % (Manual) 63, Lymphocytes % (Manual) 22, Monocytes % (Manual) 7, Eosinophils % (Manual) 8 H, Platelet Estimate Normal, RBC Morphology Normal, Sodium 135 L, Potassium 4.4, Chloride 104, Carbon Dioxide 28, Anion Gap 7.4, BUN 14 D, Creatinine 1.10 H D, Estimated Creat Clear 53, Estimated GFR 51 L, Est GFR ( Amer) 62 D, Glucose 330 H, Calcium 8.6 04/26/25 06:49: POC Glucose 333 H* 04/26/25 09:40: POC Glucose 280 H 04/26/25 11:26: POC Glucose 227 H 04/26/25 12:07: Vancomycin Trough 30.6 H 04/26/25 13:39: POC Glucose 160 H 04/26/25 15:21: POC Glucose 127 H 04/26/25 16:07: POC Glucose 132 H I & O for Labs for Last 24 Hours: Intake & Output 04/23/25 04/24/25 04/25/25 04/26/25 23:59 23:59 23:59 23:59 Intake Total 1020 / 1650 2410 / 2410 Output Total 1225 / 1225 350 / 350 Balance -205 / 425 2059 / 2059 Weight 122.833 kg 123.377 kg Microbiology Reports for the Last 24 Hours: Microbiology 04/25/25 00:35 Foot,Right Gram Stain - Final 04/25/25 00:35 Foot,Right Wound Culture - Preliminary Gram Positive Cocci 04/25/25 00:10 Blood Blood Culture - Preliminary NO GROWTH AFTER 24 HOURS 04/25/25 00:10 Blood Blood Culture - Preliminary NO GROWTH AFTER 24 HOURS Constitutional: Present no acute distress, morbidly obese, chronically ill appearing and cooperative Head: Present atraumatic Neck: Present normal inspection Respiratory: Present CTA bilaterally, able to speak in complete sentences and symmetric chest movement; Absent rhonchi, wheezes or crackles Cardiac: Present Reg Rate and Rhythm GI: Present soft and normal bowel sounds; Absent distention or tenderness Rectal (female): Present deferred (female): Present deferred Extremities: Absent normal inspection or edema Comment:: Left leg BKA; right foot in bandage wrap. Skin: Present intact Comment:: Right foot, second toe wound. Neuro: Present alert, awake and oriented x 3; Absent Sensory Function Intact (Decreased sensation in feet) Assessment and Plan *Assessment and plan (1) Osteomyelitis of toe of right foot: Status: Acute Category: Medical Code(s): M86.9 - Osteomyelitis, unspecified (2) Fracture of toe of right foot: Status: Acute Qualifiers: Encounter type: initial encounter Fracture alignment: displaced Fracture type: open Phalanx: middle Toe: lesser toe Qualified Code(s): S92.521B - Displaced fracture of middle phalanx of right lesser toe(s), initial encounter for open fracture Category: Medical Code(s): S92.911A - Unspecified fracture of right toe(s), initial encounter for closed fracture (3) Diabetic foot infection: Status: Acute Category: Medical Code(s): E11.628 - Type 2 diabetes mellitus with other skin complications; L08.9 - Local infection of the skin and subcutaneous tissue, unspecified (4) Type 2 diabetes mellitus with vascular disease: Status: Chronic Category: Medical Code(s): E11.59 - Type 2 diabetes mellitus with other circulatory complications (5) 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: Status: Chronic Qualifiers: Serious obesity comorbidity presence: with serious comorbidity Qualified Code(s): E66.813 - Obesity, class 3; E66.2 - Morbid (severe) obesity with alveolar hypoventilation; Z68.41 - Body mass index [BMI] 40.0-44.9, adult Category: Medical Code(s): E66.813 - Obesity, class 3; E66.2 - Morbid (severe) obesity with alveolar hypoventilation; Z68.41 - Body mass index [BMI] 40.0-44.9, adult (6) 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: Status: Chronic Qualifiers: Encounter type: initial encounter Qualified Code(s): S88.112A - Complete traumatic amputation at level between knee and ankle, left lower leg, initial encounter Category: Medical Code(s): S88.112A - Complete traumatic amputation at level between knee and ankle, left lower leg, initial encounter (7) CKD (chronic kidney disease): Status: Chronic Qualifiers: Chronic kidney disease stage: stage 3 (moderate) Chronic kidney disease stage 3 subtype: stage 3a (GFR 45-59) Qualified Code(s): N18.31 - Chronic kidney disease, stage 3a Category: Medical Code(s): N18.9 - Chronic kidney disease, unspecified (8) Type 2 diabetes mellitus with Charcot's joint of left foot: Status: Acute Category: Medical Code(s): E11.610 - Type 2 diabetes mellitus with diabetic neuropathic arthropathy (9) Type 2 diabetes mellitus with diabetic neuropathy, with long-term current use of insulin: Status: Chronic Category: Medical Code(s): E11.40 - Type 2 diabetes mellitus with diabetic neuropathy, unspecified; Z79.4 - retirement (current) use of insulin (10) CAD (coronary artery disease): Status: Chronic Qualifiers: Coronary Disease-Associated Artery/Lesion type: [place] artery [place] vs. transplanted heart: [place] heart Associated angina: without angina Qualified Code(s): I25.10 - Atherosclerotic heart disease of [place] coronary artery without angina pectoris Category: Medical Code(s): I25.10 - Atherosclerotic heart disease of [place] coronary artery without angina pectoris (11) Essential hypertension: Status: Chronic Category: Medical Code(s): I10 - Essential (primary) hypertension Plan Ms. Colon is a 54-year-old who presented to the ER yesterday for right foot pain after hitting her right foot on Thursday. She states that she noticed a foul smell and was having increased pain/discomfort in the right toes. When she took her sock off she realized that it looked like there was infection and possibly a fracture. She was seen in the ER and evaluated with an x-ray which showed a displaced, open, fracture of the right second toe. Orthopedics evaluated, MRI unable to be obtained due to stimulator in her back. CT obtained showing os teomyelitis in her second toe. Going for surgery today to amputate. Continues to require patient management. Problems addressed as follows: #Fracture of toes on right foot #Osteomyelitis #Type 2 diabetes with vascular disease #Class III obesity, BMI 40-45 #Diabetic foot infection ? Continue vancomycin 2 g every 12 hours, Flagyl 500 mg 3 times daily, cefepime 2 g twice daily, for infection. Monitor for toxicity ?Betadine soaked dressing placed on open fracture and diabetic wounds on right foot. -Orthopedics taking for amputation today. Discussed case. Patient does have osteo. Will take 1-2 tabs depending on findings during surgery. ?Medication ordered for pain control, home medication of [place] 10/325 mg every 6 as needed and morphine 4 mg IV ordered for breakthrough pain. ?Regular monitoring of blood sugars, ACHS. Increase basal insulin to 60 units twice daily. Continue sliding scale plus additional 10 units with meals. - White count normal at 7.5, hemoglobin 11.6. Kidney function normal BUN 14, creatinine 1.1. - CT per my review shows osteomyelitis in second toe on right foot - Repeat CBC, CMP, magnesium ordered for the morning #Depression #Chronic pain #Hypertension #Coronary artery disease ?Blood pressure soft postop, holding blood pressure medications. - Discontinued ramipril and isosorbide - Continue spironolactone 25 mg daily. Neuropathy: Continue Lyrica 200 mg twice daily GERD: Continue pantoprazole 40 mg nightly Depression: Continue Cymbalta 60 mg twice daily Hyperlipidemia: Continue Lipitor 40 mg nightly Full code Diabetic diet after surgery VTE prophylaxis: Lovenox 40 mg SQ twice daily
--- NOTE | 2025-04-26 23:16 | PC.NURSE ---
around 1939 patients BP was 78/49, patient stated she felt weak, MD Miller was notified, MD ordered 500 ml bolus of NS, after bolus BP is 81/52, notified of BP again
[2025-04-27] VITALS (7 sets, daily range): BP systolic 92–180; BP diastolic 42–98; PULSE 71–101; RESP 13–22; TEMP 36.6–37; O2SAT 90–96; BMI 44.4
[2025-04-27] MEDS: METRONIDAZ/SOD CHL 500 MG/100 ML PIGGYBACK 100 MG IV ×3 (01:00→16:38)
[2025-04-27] MEDS: HYDROCODONE 10MG/APAP 325MG TAB 1 TAB PO ×2 (01:30→09:59)
--- NOTE | 2025-04-27 04:33 | PC.NURSE ---
Pt is A&O x 4. Pt is on room air. Pt's surgical dressing is clean, dry, and intact. Pt did have some hypertension of 76/52, which was reported to MD and an order for a 500ml bolus was received. Most recent BP was 130/73. Pt Blood glucose was elevated at 452, MD was contacted per sliding scale and 20 units of humalog was administered. Pt does complain of a tremor in her arm, MD aware. Pt did complain of pain, and was medicated per MAR. Pt has not voiced any concerns at this time. Pt resting in bed, call light is within reach. Plan of care ongoing.
[2025-04-27 05:30] LABS: POC Glucose,Bedside 452 (70-110)
[2025-04-27 05:51] LABS: MANUAL DIFFERENTIAL MANUAL DIFFERENTIAL (MANUAL DIFF)
[2025-04-27 05:57] LABS: Basophils % 0.1 % (0.1-2.0); Hematocrit 35.3 % (37.0-47.0); Hemoglobin 10.9 g/dL (12.2-16.2); Lymphocytes # 1.1 K/mm3 (0.7-4.5); Lymphocytes % 10.5 % (10-50); Mean Corpuscular HGB Conc 30.9 g/dL (31.8-35.4); Mean Corpuscular Hemoglobin 26.6 pg (27.0-31.2); Mean Corpuscular Volume 86.1 fl (81-99); Mean Platelet Volume 10.9 fl (7.4-10.4); Monocytes # 0.5 K/mm3 (0.1-1.0); Monocytes % 4.9 % (1.7-9.3); Neutrophils # 8.5 K/mm3 (1.8-7.8); Neutrophils % 83.9 % (37.0-80.0); Platelet Count 240 K/mm3 (142-424); Red Cell Distribution Width 14.7 % (11.5-17.5); White Blood Count 10.1 K/mm3 (4.8-10.8)
[2025-04-27 06:02] LABS: Chloride 106 mmol/L (98-107)
[2025-04-27] MEDS: humaLOG 100 UNITS/ML 10ML VIAL (SSI) SUBCUT ×4 (06:02→20:37)
[2025-04-27] MEDS: humaLOG 100 UNITS/ML 10ML VIAL (SSI) 10 UNIT SUBCUT ×2 (06:02→11:23)
[2025-04-27 06:03] LABS: Potassium 4.9 mmoL/L (3.5-5.1); Sodium 134 mmol/L (136-145)
[2025-04-27] MEDS: VANCOMYCIN/WATER FOR INJ (PEG) 1.75 GM/350 ML PIGGYBACK IV (06:03)
[2025-04-27 06:05] LABS: Blood Urea Nitrogen 20 mg/dl (7-17); Creatinine Clearance Estimated 42 mL/min (50-200); Estimated Glomerular Filt Rate 39 ml/min (>60); GFR (African American) 47 ML/MIN (>60)
[2025-04-27 06:06] LABS: Anion Gap 8.9 mEq/L (5-15); Calcium 9.5 mg/dl (8.4-10.2); Carbon Dioxide 24 mmol/L (22.0-30.0)
[2025-04-27 06:08] LABS: Glucose 443 mg/dl (74-100)
[2025-04-27 06:14] LABS: Magnesium 2.1 mg/dl (1.6-2.3)
[2025-04-27 06:18] LABS: Atypical Lymphocytes % 2; Lymphocytes % 14 % (10-50); Neutrophils % 84 % (42-76); Total Cells Counted 100
--- NOTE | 2025-04-27 08:28 | P.PNANES_ITS ---
[facility] Anesthesia Record Part II Anesthesia Record Part II Discharge Time: 15:40 Destination: Second Floor PACU nurse assessment reviewed?: Yes Patient Condition:: Good Anesthesia Complications:: None Swallowing reflex intact?: Yes Airway Patency: Patent Cyanosis?: No Blood Pressure: 92/42 SaO2: 94 Respiratory Rate: 18 Pulse Rate: 76 Temperature: 98 F Mental Status: Alert & Oriented Pain level:: 0 Nausea and/or vomitting:: None Intake, IV Amount: 1,500 Hydration: Adequate
[2025-04-27] MEDS: ENOXAPARIN 40MG/0.4ML SYRINGE 40 MG SUBCUT ×2 (09:51→20:35)
[2025-04-27] MEDS: ASPIRIN 81MG CHEWABLE TABLET 81 MG PO (09:52)
[2025-04-27] MEDS: RANOLAZINE 500MG ER TABLET 1000 MG PO ×2 (09:52→20:34)
[2025-04-27] MEDS: DAPAGLIFLOZIN PROPANEDIOL 10 MG TABLET PO (09:52)
[2025-04-27] MEDS: SPIRONOLACTONE 25MG TABLET 25 MG PO (09:52)
[2025-04-27] MEDS: INSULIN GLARGINE 100 UNITS/ML 3ML FLEXPEN 60 UNIT SUBCUT ×2 (09:54→20:36)
[2025-04-27] MEDS: PREGABALIN 100MG CAPSULE 200 MG PO ×2 (09:59→20:34)
--- NOTE | 2025-04-27 10:11 | SW/DCPLANNER ---
Addendum entered by [facility] 04/28/25 12:04: Per Liza patient has been approved SNF level of care and can admit today. I have update Mitz[facility] and she stated that patient will discharge today after PICC placement. Addendum entered by [facility] 04/28/25 10:35: Per Fatuma dupont/ [facility] they have filled all beds and will no longer be able to accept this patient. I have updated patient and she is agreeable to [facility]. Per Liza dupont/ [facility] precert will be started today. Addendum entered by [facility] 04/27/25 15:17: Liza dupont/ [facility] is willing to accept patient if [facility] denies. Addendum entered by [facility] 04/27/25 12:13: Fatuma dupont/ [facility] will start auth for this patient today. Original Note: I spoke w/ patient regarding plans once medically stable for discharge. PT/OT evaluated patient today and recommended SNF level of care. Patient is interested in placement and expressed an interest in [facility] or [facility]. I will fax patient information to both facilities. Discharge date is unknown at this time. I will continue to follow up.
[2025-04-27] MEDS: LORazepam 0.5MG TABLET 0.5 MG PO ×2 (10:18→16:45)
--- NOTE | 2025-04-27 10:31 | HMH.OTEV ---
OT Inpatient Evaluation Rehab OT IP Evaluation Start: 04/25/25 08:20 Freq: ONCE Status: Complete Protocol: Document 04/25/25 09:35 MAYA (Rec: 04/25/25 09:44 MAYA [id number]) Rehab OT IP Assessment Subjective History Per HPI narrative: 54-year-old female with history of left BKA, insulin- dependent diabetes, obesity, coronary artery disease presents for right foot pain. She slammed it against a corner of a cabinet within the last couple of days and when she looked at it today she noticed that had a foul smell and the sock was stuck to it. She is concerned it is fractured and or infected. She denies any fevers at home. Reports that it hurts a little bit but she has poor feeling to the foot. Subjective I'd like to go to [facility]. Pt was supine in bed when therapy arrived. Pt agreed to participate in initial OT eval this morning. pt orient x3. pt reported they live alone, but their daughter would be there for the summer until fall when she goes back to college. pt reported they live in a single story home with basement, however they do not need to access basement. pt has ramp. pt uses w/c for functional mobility. pt has shower chair and grab bars. pt has bedside commode. pt reports being ind in transfers. pt reports they can drive however their prothesis does not fit so they are unable to drive unless taken to their car. pt reports they are ind in IADL and ADLs. pt agreed to sit on EOB. Pt went from supine to EOB with SBA. pt able to hold static sitting balance well while reporting hx to therapy. pt then went from EOB to supine with SBA. pt left with call light and all other needs within reach. Objective Patient Orientation Person,Place,Birthday Right Upper WFL Extremity Gross ROM Left Upper Extremity WFL Gross ROM Bed Mobility bed mobility-scooting,bed mobility - rolling Assist Level Supervision/Stand by Decrease in Yes Endurance Rehab OT IP prob,goals,plan Problems Date of Evaluation: 04/25/25 Rehab Potential Rehab Potential Good Equipment Needs Assistive Devices Wheelchair Discharge Plan OT Discharge Plan At this time, pt is at baseline and would not benefit from skilled acute OT services and interventions if no further decline. Once DC from [facility], pt could benefit from rehab placement to address functional limitations in occupational performance with safety, endurance and increase of self-care with skilled OT services and interventions. Eval Complexity Eval Charge Codes 14703 - Moderate Complexity Rehab OT IP Evaluation Start: 04/27/25 07:35 Freq: ONCE Status: Active Protocol: Document 04/27/25 09:33 RMARSHALL (Rec: 04/27/25 10:30 [email or web address] [id number]) Rehab OT IP Assessment Subjective History Pt oriented x 3 on arrival. Pt agreeable to engage in therapy evaluation. Pt admitted on 04/25/25 due to diabetic foot wound requiring a Right foot second toe amputation on 04/26/25. History and physical: 54-year-old female with presents for right foot pain. She slammed it against a corner of a cabinet within the last couple of days and when she looked at it today she noticed that had a foul smell and the sock was stuck to it. She is concerned it is fractured and or infected. She denies any fevers at home. Reports that it hurts a little bit but she has poor feeling to the foot. Wants to see Dr. Williamson because he usually works on her foot Having significant pain in the foot that was not alleviated in the emergency department. She is requesting increased analgesia Otherwise no other concerns or complaints at this time Subjective Prior to being in the hospital, pt reports she lives at home alone ~50% of the time. However, her daughter does stay with her some to assist as needed with IADLs. Pt claims she was independent with ADLs. Pt reports she was using a wheelchair at all times for functional transfers/mobility. She was able to complete stand pivots independently. Pt no longer drives. Objective Patient Orientation Person,Place,Birthday Right Upper WFL Extremity Gross ROM Left Upper Extremity WFL Gross ROM Bed Mobility bed mobility-scooting,bed mobility - supine/sit Assist Level Minimal x 2 (25% assist) Assist Level Maximum x 2 (75% assist) Rehab OT IP prob,goals,plan Problems Date of Evaluation: 04/27/25 OT IP Problems Bed Mobility,Transfers,Balance,Self care,Safety Rehab Potential Rehab Potential Fair Equipment Needs Assistive Devices Rolling / Wheeled Walker,Wheelchair Plan OT intervention Plan Bed Mobility,Transfers,Balance,Self care,Safety, Therapeutic Exercise OT Plan Frequency Daily Duration LOS Discharge Goals Bed Mobility Ability Assistance x1 Sit to Stand Chair Maximum x 1 (75% assist) Transfer Ability Chair Transfer Maximum x 1 (75% assist) Ability Chair Transfer Stand Pivot Technique Lower Body Dressing Moderate Assistance Ability Upper Body Dressing Minimal Assistance Ability Performing Toilet Moderate Assistance Hygiene Ability Overall Commode/ Maximum Assistance Toilet Transfer Ability Commode/Toilet Stand Pivot Transfer Technique Discharge Plan OT Discharge Plan Pt will continue to be seen for OT services while at [facility]. Pt would benefit most from short term rehab at SNF following hospital stay. Continued skilled therapy is important in order for patient to improve strength, safety, endurance, and ADL independence to reach PLOF. Eval Complexity Eval Charge Codes 52371 - Moderate Complexity PHYSICIAN CERTIFICATION: I certify the specified therapy services for Bee Colon are required, authorized, and reviewed every 30 days.
--- NOTE | 2025-04-27 10:44 | HMH.PTEV ---
Physical Therapy Evaluation Rehab PT IP Evaluation Start: 04/25/25 03:39 Freq: ONCE Status: Complete Protocol: Document 04/25/25 10:39 HERBERT (Rec: 04/25/25 11:29 [email or web address] [id number]) Subjective/History History History 54-year-old female with presents for right foot pain. She slammed it against a corner of a cabinet within the last couple of days and when she looked at it today she noticed that had a foul smell and the sock was stuck to it. She is concerned it is fractured and or infected. She denies any fevers at home. Reports that it hurts a little bit but she has poor feeling to the foot. Wants to see Dr. Williamson because he usually works on her foot. She reports she lives alone, no JAHAIRA, and is generally independent with use of her w/c for all mobility. She has hx of prior BKA on L LE, but is unable to wear her prosthesis at this time due to inability to independently don/doff. Subjective Subjective Pt presents awake, supine in bed, agrees to mobility assessment. She does c/o pain in her R foot this am due to her recent foot injury. [facility] How much help from another person do you currently need... Turning from your None back to your side while in a flat bed without using bedrails? Moving from lying on None back to sitting on the side of a flat bed without using bedrails? Moving to and from a None bed to a chair ( including a wheelchair)? Standing up from a A little chair using your arms? (e.g., wheelchair, bedside chair) Walking in hospital A lot room? Climbing 3-5 steps Total with a railing? Mobility Score 18 Mobility Level [facility] Mobility 6 Walk 10 steps or more Mobility Calculator Rehab PT IP Eval Objective Appearance Patient Behavior Appropriate Patient Orientation Person,Place,Time Difficulty following none instructions Speech Pattern Clear Ambulation Patient Able to No Ambulate Balance Ability to Arise Able, uses arms to help Sitting Balance Steady, safe Dynamic Sitting Good Balance Ability Transfers Bed Transfer Ability Independent Chair Transfer Independent Ability Rehab PT IP prob,goals,plan Problems Date of Evaluation: 04/25/25 Discharge Plan PT Discharge Plan Pt is currently safe to return home once medically stable for d/c. However, she would be most appropriate to undergo intensive inpatient rehab stay to train on using her prosthetic effectively. Acute skilled therapy is not indicated at this time, however. Eval Complexity Eval Charge Codes 01712 - Moderate Complexity Rehab PT IP Evaluation Start: 04/27/25 07:35 Freq: ONCE Status: Active Protocol: Document 04/27/25 10:24 THOMAS (Rec: 04/27/25 10:43 THOMAS [id number]) Subjective/History History History 54-year-old female with presents for right foot pain. She slammed it against a corner of a cabinet within the last couple of days and when she looked at it today she noticed that had a foul smell and the sock was stuck to it. She is concerned it is fractured and or infected. She denies any fevers at home. Reports that it hurts a little bit but she has poor feeling to the foot. Wants to see Dr. Williamson because he usually works on her foot - Pt is s/p Right foot second toe amputation 04/27/25. - No weight bearing orders currently found in chart. CM contacted surgeon and he reports pt is WBAT with RW. Subjective Subjective Pt reports she lives with her daughter who is only staying with her for the summer. Pt reports she is IND with transfers as she uses her w/ c for all mobility. [facility] How much help from another person do you currently need... Turning from your A little back to your side while in a flat bed without using bedrails? Moving from lying on A little back to sitting on the side of a flat bed without using bedrails? Moving to and from a A lot bed to a chair ( including a wheelchair)? Standing up from a A lot chair using your arms? (e.g., wheelchair, bedside chair) Walking in hospital A lot room? Climbing 3-5 steps A lot with a railing? Mobility Score 14 Mobility Level [facility] Mobility 4 Move to chair/commode Mobility Calculator Rehab PT IP Eval Objective Appearance Patient Behavior Appropriate,Cooperative Patient Orientation Person,Place Difficulty following none instructions Speech Pattern Clear Ambulation Patient Able to No Ambulate Balance Ability to Arise Able, uses arms to help Sitting Balance Steady, safe Standing Balance Unsteady Transfers Sit to Stand Bed Maximum x 2 (75% assist) Transfer Ability Rehab PT IP prob,goals,plan Problems Date of Evaluation: 04/27/25 PT IP Problems Bed Mobility,Transfers,Gait,Balance,Self care,Safety Rehab Potential Rehab Potential Good Plan PT Intervention Plan Bed Mobility,Transfers,Gait,Balance,Self care,Safety, Therapeutic Exercise Other Intervention 1-2 times Plan PT Plan Frequency Daily Duration LOS Discharge Goals Bed Transfer Ability Contact Guard/Hand Hold Sit to Stand Chair Maximum x 1 (75% assist) Transfer Ability Discharge Plan PT Discharge Plan Initial physical therapy evaluation performed. Patient presents below baseline at this time in functional mobility, transfers, and strength. Pt required Max A x 2 to perform partial STS with RW and WBAT through heel. Pt not safe to return home at this time d/t current level of functional mobility. PT recommending short- term rehabilitation stay upon d/c from [facility]. Pt would benefit from skilled PT while at [facility] to prevent further functional decline and maximize safety with mobility. PHYSICIAN CERTIFICATION: I certify the specified therapy services for Bee Colon are required, authorized, and reviewed every 30 days.
[2025-04-27] MEDS: levoFLOXacin 750 MG TABLET PO (11:18)
[2025-04-27 11:25] LABS: POC Glucose,Bedside 400 (70-110)
[2025-04-27 11:25] LABS: POC Glucose,Bedside 421 (70-110)
--- NOTE | 2025-04-27 12:14 | EXP.ORTH.PN ---
Subjective *Date: 04/27/25 *Time: 12:14 Interval history: Patient doing reasonly well. No complaints currently. Reports that she is experiencing some tremor which seems to be new. Otherwise no new complaints. Ortho Exam (Inpt) Vital signs and Labs for Last 24 Hours: Temp Pulse Resp BP Pulse Ox O2 Del Method 98.1 F 101 H 18 131/75 95 Room Air 04/27/25 08:00 04/27/25 08:00 04/27/25 08:29 04/27/25 08:00 04/27/25 08:00 04/27/25 11:00 Laboratory Results - last 24 hr 04/26/25 12:07: Vancomycin Trough 30.6 H 04/26/25 13:39: POC Glucose 160 H 04/26/25 15:21: POC Glucose 127 H 04/26/25 16:07: POC Glucose 132 H 04/26/25 20:55: POC Glucose 452 H* 04/27/25 05:45: WBC 10.1 D, RBC 4.10 L, Hgb 10.9 L, Hct 35.3 L, MCV 86.1, MCH 26.6 L, MCHC 30.9 L, RDW 14.7, Plt Count 240, MPV 10.9 H, Neut % (Auto) 83.9 H, Lymph % (Auto) 10.5, [place] % (Auto) 4.9, Eos % (Auto) 0.0 L, Baso % (Auto) 0.1, Neut # (Auto) 8.5 H, Lymph # (Auto) 1.1, [place] # (Auto) 0.5, Eos # (Auto) 0.0, Baso # (Auto) 0.0, Total Counted 100, Neutrophils % (Manual) 84 H, Lymphocytes % (Manual) 14, Atypical Lymphs % 2, Sodium 134 L, Potassium 4.9, Chloride 106, Carbon Dioxide 24, Anion Gap 8.9, BUN 20 H D, Creatinine 1.40 H D, Estimated Creat Clear 42, Estimated GFR 39 L, Est GFR ( Amer) 47 L D, Glucose 443 H* D, Calcium 9.5, Magnesium 2.1 D 04/27/25 09:54: POC Glucose 421 H* 04/27/25 11:17: POC Glucose 400 H* I & O for Labs for Last 24 Hours: Intake & Output 04/24/25 04/25/25 04/26/25 04/27/25 23:59 23:59 23:59 23:59 Intake Total 1020 / 1650 2410 / 3160 3680 / 3680 Output Total 1225 / 1225 350 / 350 275 / 275 Balance -205 / 425 2060 / 2810 3405 / 3405 Weight 270 lb 12.8 oz 272 lb 276 lb 10.882 oz Microbiology Reports for the Last 24 Hours: Microbiology 04/26/25 14:40 Foot,Right Bone Culture - Preliminary 04/25/25 00:10 Blood Blood Culture - Preliminary NO GROWTH AFTER 48 HOURS 04/25/25 00:10 Blood Blood Culture - Preliminary NO GROWTH AFTER 48 HOURS 04/25/25 00:35 Foot,Right Gram Stain - Final 04/25/25 00:35 Foot,Right Wound Culture - Preliminary Gram Positive Cocci Comments:: Right foot: Surgical dressing in place. Able to move the ankle without difficulty. Assessment and Plan *Assessment and plan (1) Osteomyelitis of toe of right foot: Status: Acute Category: Medical Code(s): M86.9 - Osteomyelitis, unspecified Plan Patient is postop day 1 status post amputation second toe right foot. Interoperative cultures pending interoperative cultures can drive antibiotic treatment. Surgical dressing change tomorrow. Weightbearing as tolerated on the heel.
--- NOTE | 2025-04-27 13:01 | EXP.BH.CONS ---
History of Present Illness *Admission Date: 04/25/25 *Reason for visit:: Depression. *History of present illness: 54-year-old female with presents for right foot pain. She slammed it against a corner of a cabinet within the last couple of days and when she looked at it today she noticed that had a foul smell and the sock was stuck to it. She is concerned it is fractured and or infected. She denies any fevers at home. Reports that it hurts a little bit but she has poor feeling to the foot. Wants to see Dr. Williamson because he usually works on her foot Having significant pain in the foot that was not alleviated in the emergency department. She is requesting increased analgesia Otherwise no other concerns or complaints at this time History: \ stenting in 2014, 2019. She had Takotsubo cardiomyopathy with recovered EF 2020. Historically followed with Dr. Manzano in [place] but has not seen him in over 1 year. history of left BKA, insulin-dependent diabetes, obesity, coronary artery disease EKG nsr no ST deviations History independently obtained. Diagnostic and laboratory evaluation interpreted. Discussed case with ER physician. Reviewed prior records. Workup revealed open wound of her right second toe with infection orthopedics consulted regarding treatment options [facility] Disclaimer: The information contained in this section may have been updated after the patient was seen, as this information can be updated by other users. 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 (Updated 04/27/25 @ 13:14 by Ирина Edmondson APRN) Migraine Osteoarthritis History of diverticulitis History of cataract History of left heart catheterization Recurrent major depression resistant to treatment Blood culture positive for microorganism Anemia HTN (hypertension) Type 2 diabetes mellitus with diabetic neuropathy, with long-term current use of insulin History of myocardial infarction Hyperlipemia CAD (coronary artery disease) Hx MRSA infection Essential hypertension Vitamin D deficiency Surgical History (Updated 04/25/25 @ 03:26 by Abby Espinoza RN) H/O shoulder surgery Hx of BKA History of appendectomy History of cholecystectomy History of hysterectomy History of hand surgery History of foot surgery Social History (Updated 04/25/25 @ 03:26 by Abby Espinoza RN) Smoking Status: Never smoker smoking status stop date: 07/17/2023 second hand exposure: No alcohol intake: never counseling given: No substance use type: denies use counseling given: No current occupational status: disabled Travel in the last 8 weeks?: None adopted: No caregiver/support person: No foster care: No household members: children housing: house lives independently: Yes marital status: number of children: 1 number of grandchildren: 0 education level: high school 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; 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 current occupational exposures/hazards: Yes pets and animals: Yes pets and animals: cat(s) Hx Recent Travel: No sexually active: No caffeine: Yes physical activity: none dyana/voodoo: Cheondoism special dyana needs: No working smoke detector in home: Yes fire extinguisher in home: Yes carbon monox detector in home: Yes firearms in home: No do you feel safe at home: Yes victim of physical abuse: No victim of emotional abuse: No victim of sexual abuse: No would you like helpful sources: No Have you lived/traveled outside US in past 30 days?: No Contact w/someone who lives/traveled outside US past 30 days?: No Exposure to someone with infectious disease in past 14 days?: No Do you have a fever (greater than 100.4 F or 38 C)?: No Have you tested positive for COVID-19?: No Exposed to someone with COVID-19 in past 14 days?: No Do you have a sore throat?: No Do you have a cough?: No Do you have any weakness?: No Do you have any diarrhea?: No Are you experiencing any unusual bleeding?: No Do you have any muscle aches/pain?: No Do you have any abdominal pain?: No Are you experiencing loss of taste or smell?: No Review of Systems Review of Systems Review of systems:: pertinent systems reviewed and negative unless documented below Constitutional Constitutional: Reports daytime sleepiness (She reports sleeping during the day after not being able to at night.), Reports difficulty sleeping (She reports that she only sleeps 2 to 3 hours a night.), Reports poor appetite and Reports weight loss (She reports that she has lost 40 pounds in 6 weeks.) Eyes Eyes: Reports as per HPI ENT Ears, Nose, Mouth, and Throat: Reports as per HPI *Cardiovascular Cardiovascular: Reports as per HPI *Respiratory Respiratory: Reports as per HPI *Gastrointestinal Gastrointestinal: Reports as per HPI *Genitourinary Genitourinary: Reports as per HPI *Musculoskeletal Musculoskeletal: Reports as per HPI Integumentary/Breasts Skin/Breast: Reports as per HPI *Neurologic Neurologic: Reports as per HPI Psychiatric Psychiatric: Reports anxiety (She rates her anxiety at 8/10.), Reports change in appetite (She reports having a poor appetite and that she has lost 40 pounds in 6 wks), Reports difficulty concentrating (She reports difficulty focusing and is distracted easily.) and Reports irritability (She reports that she gets irritable easily.) Comments: During this admission she had an amputation of the second toe on her right foot and has previously had a left BKA. She reports feeling emotional and depressed. She states that she cannot get her prosthesis to fit because it is too big and that she has been working with a place to try to get it for correctly and all they do is put it on her, but she states they are not helpful. She reports that she feels like she has been struggling more since she was admitted to the hospital this time after the amputation but that her depression started after her parents within 6 days of each other in 2022. She reports that she lives at home alone for the most part other than 3 cats and while her daughter is in school at [employer] she comes home for 1 day a week. She states that when her daughter is out of school for the summer she is home but she still works full-time, so she is gone most of the time. She is tearful. She denies any psychiatric history with either of her parents but reports that her daughter has been diagnosed with ADHD and panic attacks. She rates her depression 6/10. She states she has mood swings but she is mainly sad and states that she feels fatigued all the time. She reports that she is irritable. She states she can sleep 2 to 3 hours but she cannot get her mind to shut off at night so she cannot relax, but then she is able to sleep the next day. She reports a lack of energy, difficulty concentrating, and that she is distracted easily. She states she used to love to read but now she cannot focus to read. She states that her appetite is not great and that she has lost 40 pounds in 6 weeks. She reports having tremors but stated they just started since she was in the hospital. No tremors noted until discussing tremors. She asked if she was having tardive dyskinesia, in which it is not noted. Excessive speech noted. She states she used to follow with [facility] and behavioral health but has not been to an appointment since last year. She states that upon discharge from the hospital she is planning to go to [facility] for rehab. She reports that she has taken Vraylar for 4 weeks in the past and that it increased her glucose and her blood pressure so she stopped it. Allergies and medications reviewed. Endocrine Endocrine: Reports as per HPI Hematologic/Lymphatic Hematologic/Lymphatic: Reports as per HPI Allergic/Immunologic Allergic/Immunologic: Reports as per HPI Meds Home Medications and Allergies Home Medications ?Medication ?Instructions ?Recorded ?Confirmed ?Type aspirin 81 mg chewable tablet 81 mg PO DAILY [facility] #90 12/12/24 04/25/25 Rx tabs isosorbide mononitrate 60 mg 60 mg PO DAILY #90 tabs 12/12/24 04/25/25 Rx tablet,extended release 24 hr metoprolol tartrate 100 mg tablet 100 mg PO BID #180 tabs 12/12/24 04/25/25 Rx ramipril 5 mg capsule 5 mg PO DAILY #90 caps 12/12/24 04/25/25 Rx rosuvastatin 20 mg tablet 20 mg PO DAILY #90 tabs 12/12/24 04/25/25 Rx spironolactone 25 mg tablet 25 mg PO DAILY #90 tabs 12/12/24 04/25/25 Rx dapagliflozin propanediol 10 mg 10 mg PO DAILY #90 tabs 01/16/25 04/25/25 Rx tablet ranolazine 1,000 mg 1,000 mg PO BID #60 tabs 01/16/25 04/25/25 Rx tablet,extended release,12 hr duloxetine 60 mg capsule,delayed 60 mg PO BID #180 caps 01/31/25 04/25/25 Rx release insulin glargine 100 unit/mL (3 50 unit (0.5 mL) SQ BID #12 mL 01/31/25 04/25/25 Rx mL) subcutaneous pen insulin syringe-needle U-100 0.5 #500 ea 01/31/25 04/25/25 Rx mL 31 gauge x 5/16 (Sure Comfort Insulin Syringe) tramadol 50 mg tablet 50 mg PO Q6H PRN breakthrough 01/31/25 04/25/25 Rx pain, moderate #120 tabs trazodone 100 mg tablet 100 mg PO HS #90 tabs 02/01/25 04/25/25 Rx ezetimibe 10 mg tablet 10 mg PO HS #90 tabs 02/07/25 04/25/25 Rx pen needle, diabetic 31 gauge x #1,200 ea 02/07/25 04/25/25 Rx 5/16 (Unifine Pentips) rivaroxaban 2.5 mg tablet (Xarelto) 2.5 mg PO BIDWMEAL #60 tabs 02/07/25 04/25/25 Rx insulin aspart U-100 100 unit/mL 18 unit (0.18 mL) SQ TID #45 mL 03/15/25 04/25/25 Rx (3 mL) subcutaneous pen (Novolog FlexPen U-100 Insulin aspart) blood-glucose sensor ([employer] G7 #3 ea 03/28/25 04/25/25 Rx Sensor device) pregabalin 200 mg capsule 200 mg PO BID #180 caps 04/20/25 04/25/25 Rx hydrocodone 10 mg-acetaminophen 1 tab PO BIDP PRN Pain 04/25/25 04/25/25 History 325 mg tablet hydroxyzine HCl 25 mg tablet 25 mg PO HS 04/25/25 04/25/25 History New Prescriptions to Start Prescriptions: Allergies Allergy/AdvReac Type Severity Reaction Status Date / Time clopidogrel (From Plavix) Allergy Severe Hives Verified 01/16/25 14:44 amoxicillin (AMOXICILLIN) Allergy Unknown Unknown Verified 01/16/25 14:44 allergy reaction codeine (CODEINE) AdvReac Mild STOMACH Verified 01/16/25 14:44 CRAMPS morphine (MORPHINE) AdvReac Mild STOMACH Verified 01/16/25 14:44 CRAMPS oxycodone (From Percocet) AdvReac Mild STOMACH Verified 01/16/25 14:44 CRAMPS Assessment and Plan *Assessment and plan (1) Depression: Status: Acute Qualifiers: Active/Remission status: currently active Depression Type: major depressive disorder Major depression episode severity: moderate Major depression recurrence: recurrent Qualified Code(s): F33.1 - Major depressive disorder, recurrent, moderate Category: Medical Code(s): F32.A - Depression, unspecified Plan Recommend continuing the Duloxetine, changing the Vistaril to 25 mg PO TID PRN for anxiety, and starting Abilify 5 mg PO at HS. Patient to schedule follow-up with behavioral health upon discharge from short-term rehab center.
[2025-04-27] MEDS: MORPHINE 4MG/ML SYRINGE 4 MG IV ×2 (13:21→20:35)
--- NOTE | 2025-04-27 13:37 | P.PN_ITS ---
<Statement entered by Levi Soria MD - 04/27/25 15:46> Rounded on patient after nurse practitioner. Personally examined and interviewed patient. Agree with exam findings and care plan as documented. Subjective *Date: 04/27/25 *Time: 15:43 Interval history: Patient awake, sitting up in the bed, tearful. Patient states she is having involuntary twitches intermittently, she is feeling anxious and cannot figure out why they are happening. She states her pain is minimal, no nausea, vomiting. She denies any chest pain, or shortness of breath. Medical Exam Vital signs and Labs for Last 24 Hours: Vital Signs Temp Pulse Pulse Resp BP BP BP 04/27/25 13:00 04/27/25 12:00 98.6 F 87 22 167/84 H 176/98 H 04/27/25 11:00 04/27/25 09:00 04/27/25 08:29 18 04/27/25 08:00 04/27/25 08:00 98.1 F 101 H 20 131/75 04/27/25 06:54 04/27/25 05:00 04/27/25 04:00 97.8 F 72 17 126/74 04/27/25 03:00 04/27/25 02:53 92 H 16 130/73 04/27/25 01:00 04/26/25 23:00 04/26/25 22:40 81/52 L 04/26/25 21:00 04/26/25 20:00 98.8 F 82 15 93/51 L 04/26/25 20:00 04/26/25 18:45 80 14 81/50 L 04/26/25 18:32 04/26/25 18:15 98.3 F 79 16 101/56 L 04/26/25 17:45 79 18 112/90 04/26/25 17:15 81 20 102/57 L 04/26/25 17:00 04/26/25 16:45 72 22 88/54 L 04/26/25 16:30 76 22 96/62 L 04/26/25 16:15 75 18 90/61 L 04/26/25 16:05 76 18 96/42 L 04/26/25 16:00 98.3 F 72 20 91/50 L 04/26/25 15:30 80 18 107/62 L 04/26/25 15:20 76 18 110/46 L 04/26/25 15:14 98.1 F 73 16 110/70 04/26/25 15:10 98.1 F 70 18 102/57 L Pulse Ox O2 Del Method 04/27/25 13:00 Room Air 04/27/25 12:00 90 L Room Air 04/27/25 11:00 Room Air 04/27/25 09:00 Room Air 04/27/25 08:29 04/27/25 08:00 Room Air 04/27/25 08:00 95 Room Air 04/27/25 06:54 Room Air 04/27/25 05:00 Room Air 04/27/25 04:00 91 L 04/27/25 03:00 Room Air 04/27/25 02:53 94 L 04/27/25 01:00 Room Air 04/26/25 23:00 Room Air 04/26/25 22:40 04/26/25 21:00 Room Air 04/26/25 20:00 93 L Room Air 04/26/25 20:00 Room Air 04/26/25 18:45 95 Room Air 04/26/25 18:32 Room Air 04/26/25 18:15 95 Room Air 04/26/25 17:45 92 L Room Air 04/26/25 17:15 93 L Room Air 04/26/25 17:00 Room Air 04/26/25 16:45 93 L Room Air 04/26/25 16:30 95 04/26/25 16:15 96 Room Air 04/26/25 16:05 94 L Room Air 04/26/25 16:00 95 Room Air 04/26/25 15:30 96 Room Air 04/26/25 15:20 94 L Room Air 04/26/25 15:14 04/26/25 15:10 94 L Room Air Intake and Output 04/26/25 04/27/25 04/27/25 23:59 07:59 15:59 Intake Total 480 / 3160 1800 / 3680 1880 / 3680 Output Total 0 / 350 925 / 925 Balance 480 / 2810 1800 / 2755 955 / 2755 Intake: Intake, Oral Amount 480 / 1410 750 / 1030 280 / 1030 Intake, Total IV Amount 1050 / 2650 1600 / 2650 0.9 % Sodium Chloride 1000ML 500 / 500 500 ml @ 500 mls/hr IV .Q1H ONE Rx#:[id number] Cefepime HCl 2 gm In 0.9 % 100 / 100 Sodium Chloride 100 ml @ 200 mls/hr IV Q12H [facility] Rx#:[id number] Metronidaz/Sod Chl 500 mg In 100 / 200 100 / 200 100 ml @ 100 mls/hr IV Q8H [facility] Rx#:[id number] Vancomycin/Water For Inj (Peg) 350 / 350 1.75 gm In 350 ml @ 175 mls/hr IV Q18H [facility] Rx#:[id number] Output: Output, Urine Amount 0 / 350 925 / 925 Other: Number of Unmeasured Voids 0 0 Weight 125.5 kg Patient Weight 04/27/25 23:59 Weight 125.5 kg Laboratory Results - last 24 hr 04/26/25 13:39: POC Glucose 160 H 04/26/25 15:21: POC Glucose 127 H 04/26/25 16:07: POC Glucose 132 H 04/26/25 20:55: POC Glucose 452 H* 04/27/25 05:45: WBC 10.1 D, RBC 4.10 L, Hgb 10.9 L, Hct 35.3 L, MCV 86.1, MCH 26.6 L, MCHC 30.9 L, RDW 14.7, Plt Count 240, MPV 10.9 H, Neut % (Auto) 83.9 H, Lymph % (Auto) 10.5, [place] % (Auto) 4.9, Eos % (Auto) 0.0 L, Baso % (Auto) 0.1, Neut # (Auto) 8.5 H, Lymph # (Auto) 1.1, [place] # (Auto) 0.5, Eos # (Auto) 0.0, Baso # (Auto) 0.0, Total Counted 100, Neutrophils % (Manual) 84 H, Lymphocytes % (Manual) 14, Atypical Lymphs % 2, Sodium 134 L, Potassium 4.9, Chloride 106, Carbon Dioxide 24, Anion Gap 8.9, BUN 20 H D, Creatinine 1.40 H D, Estimated Creat Clear 42, Estimated GFR 39 L, Est GFR ( Amer) 47 L D, Glucose 443 H* D, Calcium 9.5, Magnesium 2.1 D 04/27/25 09:54: POC Glucose 421 H* 04/27/25 11:17: POC Glucose 400 H* I & O for Labs for Last 24 Hours: Intake & Output 04/24/25 04/25/25 04/26/25 04/27/25 23:59 23:59 23:59 23:59 Intake Total 1020 / 1650 2410 / 3160 3680 / 3680 Output Total 1225 / 1225 350 / 350 925 / 925 Balance -205 / 425 2060 / 2810 2755 / 2755 Weight 122.833 kg 123.377 kg 125.5 kg Microbiology Reports for the Last 24 Hours: Microbiology 04/26/25 14:40 Foot,Right Bone Culture - Preliminary 04/25/25 00:10 Blood Blood Culture - Preliminary NO GROWTH AFTER 48 HOURS 04/25/25 00:10 Blood Blood Culture - Preliminary NO GROWTH AFTER 48 HOURS 04/25/25 00:35 Foot,Right Gram Stain - Final 04/25/25 00:35 Foot,Right Wound Culture - Preliminary Gram Positive Cocci Constitutional: Present mild distress, morbidly obese, chronically ill appearing and cooperative Head: Present atraumatic Neck: Present normal inspection Respiratory: Present CTA bilaterally, able to speak in complete sentences and symmetric chest movement; Absent rhonchi, wheezes or crackles Cardiac: Present Reg Rate and Rhythm GI: Present soft and normal bowel sounds; Absent distention or tenderness Rectal (female): Present deferred (female): Present deferred Extremities: Absent normal inspection or edema Comment:: Left leg BKA; right foot in bandage wrap. Skin: Present intact Comment:: Right foot, second toe postsurgical changes with dressing, CDI Neuro: Present alert, awake and oriented x 3; Absent Sensory Function Intact (Decreased sensation in feet) Comment:: Anxious, involuntary muscle movement upper extremities. Assessment and Plan *Assessment and plan (1) Status post amputation of toe of right foot: Status: Acute Category: Surgical Code(s): Z89.421 - Acquired absence of other right toe(s) (2) Osteomyelitis of toe of right foot: Status: Acute Category: Medical Code(s): M86.9 - Osteomyelitis, unspecified (3) Diabetic foot infection: Status: Acute Category: Medical Code(s): E11.628 - Type 2 diabetes mellitus with other skin complications; L08.9 - Local infection of the skin and subcutaneous tissue, unspecified (4) Fracture of toe of right foot: Status: Acute Qualifiers: Encounter type: initial encounter Fracture alignment: displaced Fracture type: open Phalanx: middle Toe: lesser toe Qualified Code(s): S92.521B - Displaced fracture of middle phalanx of right lesser toe(s), initial encounter for open fracture Category: Medical Code(s): S92.911A - Unspecified fracture of right toe(s), initial encounter for closed fracture (5) Type 2 diabetes mellitus with vascular disease: Status: Chronic Category: Medical Code(s): E11.59 - Type 2 diabetes mellitus with other circulatory complications (6) 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: Status: Chronic Qualifiers: Serious obesity comorbidity presence: with serious comorbidity Qualifie d Code(s): E66.813 - Obesity, class 3; E66.2 - Morbid (severe) obesity with alveolar hypoventilation; Z68.41 - Body mass index [BMI] 40.0-44.9, adult Category: Medical Code(s): E66.813 - Obesity, class 3; E66.2 - Morbid (severe) obesity with alveolar hypoventilation; Z68.41 - Body mass index [BMI] 40.0-44.9, adult (7) Anxiety and depression: Status: Acute Category: Medical Code(s): F41.9 - Anxiety disorder, unspecified; F32.A - Depression, unspecified (8) Depression: Status: Acute Qualifiers: Active/Remission status: currently active Depression Type: major depressive disorder Major depression episode severity: moderate Major depression recurrence: recurrent Qualified Code(s): F33.1 - Major depressive disorder, recurrent, moderate Category: Medical Code(s): F32.A - Depression, unspecified Plan Ms. Colon is a 54-year-old who presented to the ER yesterday for right foot pain after hitting her right foot on Thursday. She states that she noticed a foul smell and was having increased pain/discomfort in the right toes. When she took her sock off she realized that it looked like there was infection and possibly a fracture. She was seen in the ER and evaluated with an x-ray which showed a displaced, open, fracture of the right second toe. There is also diabetic ulcerations on the foot and other toes. Orthopedics continuing to follow along and support patient care. Problems addressed as follows #Fracture of toes on right foot #Osteomyelitis #Type 2 diabetes with vascular disease, worsening control #Class III obesity, BMI 40-45 #Diabetic foot infection ? Continued vancomycin 2 g every 12 hours, Flagyl 500 mg 3 times daily. Cefepime changed to Levaquin IV due to muscle tremors. ?Betadine soaked dressing placed on open fracture and diabetic wounds on right foot. Patient postop right second toe amputation. ?Medication ordered for pain control, home medication of [place] 10/325 mg every 6 as needed and morphine 4 mg IV ordered for breakthrough pain. monitor for toxicity ?Patient remains afebrile, hemodynamically stable, white count stable at 10.1. Mild hyponatremia at 134, potassium normal at 4.9. Slight increase in creat from 0.8-1.4 over the past couple of days. - Glucose continuing to fluctuate. Continuing to monitor ACHS.Regular monitoring of blood sugars, ACHS sugar checks on a high intensity insulin scale, long-acting glargine ordered per home medication list. In addition to sliding scale insulin, regular insulin 20 units subcu ACHS added for better control of blood sugars. Patient's glucose running in the 400s. ? Discussed case with Ortho, recommends dressing change tomorrow, weightbearing as tolerated on heel - Intraoperative cultures are pending, will continue current antibiotic therapy #Depression #Chronic pain #Hypertension #Coronary artery disease ?Home medication restarted per JAN ?Vital signs within normal limits, hemodynamically stable. ?Behavioral health CROWN ATT[employer]ER consulted on patient today, recommended to continue Cymbalta and will start Abilify 5 mg p.o. at nighttime. Full code Diabetic diet VTE prophylaxis: Lovenox 40 mg SQ twice daily
[2025-04-27] MEDS: humaLOG 100 UNITS/ML 10ML VIAL (SSI) 20 UNIT SUBCUT (16:45)
[2025-04-27 16:48] LABS: POC Glucose,Bedside 277 (70-110)
--- NOTE | 2025-04-27 17:16 | PC.NURSE ---
pt resting supine in bed with visitors at bedside. pt has been continually tearful this shift r/t her current condition. behavior health consulted. remains on RA with sats >90%. cymbalta held this morning due to possible contribution to new tremor. this rn only notices tremor when discussing it with the pt. PRN ativan administered per jan for anxiety, as well as pain medication. dressing to L foot remains c/d/i. adjustments to insulin made per provider due to consistent fsbs in the 400s. see MAR. pt has has hypertensive BP readings this shift, however pt contributes this to crying all day and being stressed. asymptomatic. pt has no needs at this time, and remains pleasant. call light within reach.
[2025-04-27 20:06] LABS: POC Glucose,Bedside 264 (70-110)
[2025-04-27] MEDS: TRAZODONE 50MG TABLET 100 MG PO (20:34)
[2025-04-27] MEDS: ARIPiprazole 10MG TABLET 5 MG PO (20:35)
[2025-04-27] MEDS: ATORVASTATIN 40MG TABLET 40 MG PO (20:35)
[2025-04-28] VITALS: BP 134/75; PULSE 84; RESP 17; TEMP 36.9; O2SAT 98
[2025-04-28] MEDS: VANCOMYCIN/WATER FOR INJ (PEG) 1.75 GM/350 ML PIGGYBACK IV (00:38)
[2025-04-28] MEDS: METRONIDAZ/SOD CHL 500 MG/100 ML PIGGYBACK 100 MG IV (00:38)
[2025-04-28 04:00] VITALS: BP 128/68; PULSE 67; RESP 15; TEMP 36.9; O2SAT 97; BMI 43.2
--- NOTE | 2025-04-28 04:19 | PC.NURSE ---
Pt is A&Ox4. Pt is on RA. Pt's surgical dressing is clean, dry, and intact. Pt's blood glucose was 264 at 2100 and she was given 10 units of sliding scale insulin. Pt has not voiced any concerns at this time. Pt resting in bed, call light is within reach. Plan of care ongoing.
[2025-04-28 05:17] LABS: POC Glucose,Bedside 198 (70-110)
[2025-04-28] MEDS: humaLOG 100 UNITS/ML 10ML VIAL (SSI) SUBCUT ×2 (05:22→11:44)
[2025-04-28 05:59] LABS: Basophils % 0.4 % (0.1-2.0); Eosinophils # 0.3 Kmm3 (0.0-0.4); Eosinophils % 3.6 % (0.1-12.0); Hematocrit 36.5 % (37.0-47.0); Hemoglobin 11.3 g/dL (12.2-16.2); Lymphocytes # 2.2 K/mm3 (0.7-4.5); Lymphocytes % 23.5 % (10-50); MANUAL DIFFERENTIAL MANUAL DIFFERENTIAL (MANUAL DIFF); Mean Corpuscular Hemoglobin 26.8 pg (27.0-31.2); Mean Corpuscular Volume 86.7 fl (81-99); Mean Platelet Volume 10.7 fl (7.4-10.4); Monocytes # 0.8 K/mm3 (0.1-1.0); Monocytes % 8.5 % (1.7-9.3); Neutrophils # 5.8 K/mm3 (1.8-7.8); Neutrophils % 63.5 % (37.0-80.0); Platelet Count 240 K/mm3 (142-424); Red Blood Count 4.21 M/mm3 (4.20-5.40); White Blood Count 9.1 K/mm3 (4.8-10.8)
[2025-04-28 06:07] LABS: Chloride 107 mmol/L (98-107); Potassium 4.4 mmoL/L (3.5-5.1); Sodium 137 mmol/L (136-145)
[2025-04-28 06:10] LABS: Anion Gap 8.4 mEq/L (5-15); Blood Urea Nitrogen 18 mg/dl (7-17); Calcium 8.9 mg/dl (8.4-10.2); Carbon Dioxide 26 mmol/L (22.0-30.0); Creatinine Clearance Estimated 59 mL/min (50-200); Estimated Glomerular Filt Rate 57 ml/min (>60); GFR (African American) 69 ML/MIN (>60); Glucose 208 mg/dl (74-100)
[2025-04-28] MEDS: MORPHINE 4MG/ML SYRINGE 4 MG IV ×2 (06:19→11:43)
--- NOTE | 2025-04-28 07:51 | P.PN_ITS ---
Subjective *Date: 04/28/25 *Time: 07:51 Medical Exam Vital signs and Labs for Last 24 Hours: Vital Signs Temp Pulse Resp BP BP Pulse Ox O2 Del Method 04/28/25 06:45 Room Air 04/28/25 05:00 Room Air 04/28/25 04:00 98.5 F 67 15 128/68 97 04/28/25 03:00 Room Air 04/28/25 01:00 Room Air 04/28/25 00:00 98.4 F 84 17 134/75 98 04/27/25 23:00 Room Air 04/27/25 21:00 Room Air 04/27/25 20:00 97.9 F 71 13 133/65 94 L 04/27/25 20:00 Room Air 04/27/25 18:58 Room Air 04/27/25 17:00 Room Air 04/27/25 16:00 98.1 F 81 18 180/92 H 154/98 H 96 Room Air 04/27/25 15:00 Room Air 04/27/25 13:00 Room Air 04/27/25 12:00 98.6 F 87 22 167/84 H 176/98 H 90 L Room Air 04/27/25 11:00 Room Air 04/27/25 09:00 Room Air 04/27/25 08:29 18 04/27/25 08:00 Room Air 04/27/25 08:00 98.1 F 101 H 20 131/75 95 Room Air Intake and Output 04/27/25 04/27/25 04/28/25 15:59 23:59 07:59 Intake Total 2180 / 5050 370 / 5050 1150 / 1150 Output Total 1575 / 3050 575 / 3050 2500 / 2500 Balance 605 / 2000 -205 / 2000 -1350 / -1350 Intake: Intake, Oral Amount 580 / 2300 270 / 2300 700 / 700 Intake, Total IV Amount 1600 / 2750 100 / 2750 450 / 450 Metronidaz/Sod Chl 500 mg In 100 / 300 100 / 300 100 / 100 100 ml @ 100 mls/hr IV Q8H PETE Rx#:[id number] Vancomycin/Water For Inj (Peg) 350 / 350 1.75 gm In 350 ml @ 175 mls/hr IV Q18H PETE Rx#:[id number] Output: Output, Urine Amount 1575 / 3050 575 / 3050 2500 / 2500 Other: Number of Unmeasured Voids 0 0 0 Weight 125.5 kg 121.9 kg Patient Weight 04/28/25 23:59 Weight 121.9 kg Laboratory Results - last 24 hr 04/27/25 09:54: POC Glucose 421 H* 04/27/25 11:17: POC Glucose 400 H* 04/27/25 16:37: POC Glucose 277 H 04/27/25 19:52: POC Glucose 264 H 04/28/25 05:10: POC Glucose 198 H 04/28/25 05:42: WBC 9.1, RBC 4.21, Hgb 11.3 L, Hct 36.5 L, MCV 86.7, MCH 26.8 L, MCHC 31.0 L, RDW 15.0, Plt Count 240, MPV 10.7 H, Neut % (Auto) 63.5, Lymph % (Auto) 23.5, [place] % (Auto) 8.5, Eos % (Auto) 3.6, Baso % (Auto) 0.4, Neut # (Auto) 5.8, Lymph # (Auto) 2.2, [place] # (Auto) 0.8, Eos # (Auto) 0.3, Baso # (Auto) 0.0, Sodium 137, Potassium 4.4, Chloride 107, Carbon Dioxide 26, Anion Gap 8.4, BUN 18 H, Creatinine 1.00 D, Estimated Creat Clear 59, Estimated GFR 57 L, Est GFR ( Amer) 69 D, Glucose 208 H D, Calcium 8.9 I & O for Labs for Last 24 Hours: Intake & Output 04/25/25 04/26/25 04/27/25 04/28/25 23:59 23:59 23:59 23:59 Intake Total 1020 / 1650 2410 / 3160 4350 / 5050 1150 / 1150 Output Total 1225 / 1225 350 / 350 2150 / 3050 2500 / 2500 Balance -205 / 425 2060 / 2810 2200 / 2000 -1350 / -1350 Weight 122.833 kg 123.377 kg 125.5 kg 121.9 kg Microbiology Reports for the Last 24 Hours: Microbiology 04/26/25 14:40 Foot,Right Bone Culture - Preliminary The patient's infection will respond to the chosen ABx?: Yes Is the patient receiving the right drug, dose, and route?: Yes Could a more targeted ABx be ordered?: No (WBC WNL, AFEBRILE, GRAM + COCCI IN WOUND CX.)
[2025-04-28 08:00] VITALS: BP 114/68; PULSE 86; RESP 20; TEMP 36.6; O2SAT 96
[2025-04-28 08:10] LABS: Eosinophils % 3 % (0-3); Lymphocytes % 20 % (10-50); Monocytes % 8 % (2-9); Neutrophils % 69 % (42-76); Total Cells Counted 100
[2025-04-28 08:13] LABS: Platelet Estimate Normal
[2025-04-28 08:14] LABS: Hypochromasia 1+
[2025-04-28] MEDS: SPIRONOLACTONE 25MG TABLET 25 MG PO (09:10)
[2025-04-28] MEDS: DAPAGLIFLOZIN PROPANEDIOL 10 MG TABLET PO (09:10)
[2025-04-28] MEDS: RANOLAZINE 500MG ER TABLET 1000 MG PO (09:10)
[2025-04-28] MEDS: ENOXAPARIN 40MG/0.4ML SYRINGE 40 MG SUBCUT (09:10)
[2025-04-28] MEDS: metroNIDAZOLE 500 MG TABLET PO ×2 (09:10→13:36)
[2025-04-28] MEDS: PREGABALIN 100MG CAPSULE 200 MG PO (09:10)
[2025-04-28] MEDS: INSULIN GLARGINE 100 UNITS/ML 3ML FLEXPEN 60 UNIT SUBCUT (09:10)
[2025-04-28] MEDS: ASPIRIN 81MG CHEWABLE TABLET 81 MG PO (09:10)
[2025-04-28 09:23] LABS: POC Glucose,Bedside 246 (70-110)
[2025-04-28] MEDS: levoFLOXacin 750 MG TABLET PO (11:33)
[2025-04-28] MEDS: SENNOSIDES 8.6MG/DOCUSATE 50MG TABLET 1 TAB PO (11:33)
[2025-04-28] MEDS: POLYETHYLENE GLYCOL 3350 17 GM PACKET PO (11:33)
[2025-04-28 11:43] LABS: POC Glucose,Bedside 345 (70-110)
[2025-04-28] MEDS: humaLOG 100 UNITS/ML 10ML VIAL (SSI) 20 UNIT SUBCUT (11:43)
[2025-04-28] MEDS: LORazepam 0.5MG TABLET 0.5 MG PO ×2 (11:43→16:51)
[2025-04-28 12:00] VITALS: BP 149/77; PULSE 90; RESP 20; TEMP 36.9; O2SAT 97
[2025-04-28 12:13] LABS: POC Glucose,Bedside 430 (70-110)
--- NOTE | 2025-04-28 12:48 | P.DS_ITS ---
<Statement entered by Angel Barry MD - 05/02/25 12:34> Personally evaluated the patient and agree with plan of care as outlined by the MANAGER [employer]CIAL [employer]. General Admission date:: 04/25/25 HPI HPI HPI: 54-year-old female with presents for right foot pain. She slammed it against a corner of a cabinet within the last couple of days and when she looked at it today she noticed that had a foul smell and the sock was stuck to it. She is concerned it is fractured and or infected. She denies any fevers at home. Reports that it hurts a little bit but she has poor feeling to the foot. Wants to see Dr. Williamson because he usually works on her foot Having significant pain in the foot that was not alleviated in the emergency department. She is requesting increased analgesia Otherwise no other concerns or complaints at this time History: \ stenting in 2014, 2019. She had Takotsubo cardiomyopathy with recovered EF 2020. Historically followed with Dr. Manzano in [place] but has not seen him in over 1 year. history of left BKA, insulin-dependent diabetes, obesity, coronary artery disease EKG nsr no ST deviations History independently obtained. Diagnostic and laboratory evaluation interpreted. Discussed case with ER physician. Reviewed prior records. Workup revealed open wound of her right second toe with infection orthopedics consulted regarding treatment options Hospital Course Hospital Course Hospital Course: Ms. Colon is a 54-year-old who presented to the ER for right foot pain after hitting her right foot a few days prior. She states that she noticed a foul smell and was having increased pain/discomfort in the right toes. When she took her sock off she realized that it looked like there was infection and possibly a fracture. She was seen in the ER and evaluated with an x-ray which showed a displaced, open, fracture of the right second toe. There is also diabetic ulcerations on the foot and other toes. Discussed case with orthopedics, who recommended amputation of the left second toe. Surgery was performed without complication, patient was started on antibiotics. Patient has done well in the hospital setting, will go to [facility] for rehab. #Fracture of toes on right foot #Osteomyelitis #Type 2 diabetes with vascular disease, worsening control #Class III obesity, BMI 40-45 #Diabetic foot infection ? Patient received vancomycin 2 g every 18 hours, Flagyl 500 mg 3 times daily. Cefepime changed to Levaquin IV due to muscle tremors. Patient being discharged with oral Bactrim twice daily per Ortho's recommendation, Flagyl 500 mg 3 times daily, and Levaquin 750 mg daily. ?Betadine soaked dressing placed on open fracture and diabetic wounds on right foot. Patient postop right second toe amputation. Dressing changes recommended daily, dressing changed last on 04-28-2025. ?Medication ordered for pain control, home medication of [place] 10/325 mg every 6 as needed and morphine 4 mg IV ordered for breakthrough pain. monitor for toxicity. Patient states pain is manageable with oral pain medication, discharged with [place] 10/325 mg every 6 hours as needed. ?Patient remained afebrile, hemodynamically stable, white count stable at . Mild hyponatremia at 134, potassium normal at 4.9. Slight increase in creat from 0.8-1.4, returned back to patient baseline creat 1.0 at discharge. -Patient's glucose monitored during stay, A1c 12.9, sugars fluctuated between 500?200. Patient was treated using sliding scale, long-acting, and additional regular insulin with meals. At discharge patient will have an increase in her long-acting insulin, started on metformin 500 mg twice daily, and sliding scale insulin with meals. ? Discussed case with Ortho, recommends dressing change daily, weightbearing as tolerated on heel -Intraoperative preliminary wound cultures came back gram-positive cocci, treating empirically with above antibiotics. ?Blood cultures preliminary no growth after 48 hours. #Depression #Chronic pain #Hypertension #Coronary artery disease ?Continue Cymbalta 60 mg twice daily, trazodone 100 mg for sleep, hydroxyzine 25 mg for anxiety ?Vital signs remained normal limits, and patient hemodynamically stable. Continue aspirin 81 mg, atorvastatin 40 mg at bedtime, isosorbide 60 mg, metoprolol 100 mg twice daily, ramipril 5 mg daily, Xarelto 2.5 mg daily, and ranolazine 1000 mg twice daily ?Behavioral health SIGN SHOP SUPERVISOR consulted on patient, recommended to continue Cymbalta. Total time spent on discharge 39 minutes in counseling, documentation, chart review, and direct care with patien Exam Data for Last 24 hours Vital signs and Labs for Last 24 Hours: Temp Pulse Resp BP Pulse Ox O2 Del Method 98.4 F 90 20 149/77 H 97 Room Air 04/28/25 12:00 04/28/25 12:00 04/28/25 12:00 04/28/25 12:00 04/28/25 12:00 04/28/25 12:00 Laboratory Results - last 24 hr 04/27/25 05:22: POC Glucose 430 H* 04/27/25 16:37: POC Glucose 277 H 04/27/25 19:52: POC Glucose 264 H 04/28/25 05:10: POC Glucose 198 H 04/28/25 05:42: WBC 9.1, RBC 4.21, Hgb 11.3 L, Hct 36.5 L, MCV 86.7, MCH 26.8 L, MCHC 31.0 L, RDW 15.0, Plt Count 240, MPV 10.7 H, Neut % (Auto) 63.5, Lymph % (Auto) 23.5, [place] % (Auto) 8.5, Eos % (Auto) 3.6, Baso % (Auto) 0.4, Neut # (Auto) 5.8, Lymph # (Auto) 2.2, [place] # (Auto) 0.8, Eos # (Auto) 0.3, Baso # (Auto) 0.0, Total Counted 100, Neutrophils % (Manual) 69, Lymphocytes % (Manual) 20, Monocytes % (Manual) 8, Eosinophils % (Manual) 3, Platelet Estimate Normal, Hypochromasia 1+, Sodium 137, Potassium 4.4, Chloride 107, Carbon Dioxide 26, Anion Gap 8.4, BUN 18 H, Creatinine 1.00 D, Estimated Creat Clear 59, Estimated GFR 57 L, Est GFR ( Amer) 69 D, Glucose 208 H D, Calcium 8.9 04/28/25 09:09: POC Glucose 246 H 04/28/25 11:32: POC Glucose 345 H* I & O for Last 24 hours: Intake & Output 04/25/25 04/26/25 04/27/25 04/28/25 23:59 23:59 23:59 23:59 Intake Total 1020 / 1650 2410 / 3160 4350 / 5050 1750 / 1750 Output Total 1225 / 1225 350 / 350 2150 / 3050 3900 / 3900 Balance -205 / 425 2060 / 2810 2200 / 1999 -2150 / -2150 Weight 122.833 kg 123.377 kg 125.5 kg 121.9 kg Microbiology Reports for the Last 24 Hours: Microbiology 04/26/25 14:40 Foot,Right Bone Culture - Preliminary Gram Positive Cocci 04/25/25 00:35 Foot,Right Gram Stain - Final 04/25/25 00:35 Foot,Right Wound Culture - Preliminary Gram Positive Cocci Constitutional Constitutional: no acute distress *Routine HEENT Exam Head: Present normocephalic *Routine Neck Exam Neck: Present full ROM *Routine Respiratory Exam Respiratory: Present CTA bilaterally, able to speak in complete sentences and symmetric chest movement *Routine Cardiovascular Exam Cardiovascular: Present RRR *Routine Abdominal Exam Abdominal: Present soft and normoactive bowel sounds; Absent tenderness *Routine Extremities Exam Extremities: Absent edema Comments: Left lower extremity BKA, right lower extremity postsurgical dressing CDI *Routine Skin Exam Skin: Present intact *Routine Neurological Exam Neurological: Present alert, oriented X3, normal speech and tremors (Bilateral upper extremities) Routine Psychiatric Exam Psychiatric: Present normal affect, cooperative and anxious Results Data Completed and Pending Labs on day of discharge: Labs from last 24 hours 04/28/25 04/28/25 04/28/25 11:32 09:09 05:42 WBC 9.1 RBC 4.21 Hgb 11.3 L Hct 36.5 L MCV 86.7 MCH 26.8 L MCHC 31.0 L RDW 15.0 Plt Count 240 MPV 10.7 H Neut % (Auto) 63.5 Lymph % (Auto) 23.5 [place] % (Auto) 8.5 Eos % (Auto) 3.6 Baso % (Auto) 0.4 Neut # (Auto) 5.8 Lymph # (Auto) 2.2 [place] # (Auto) 0.8 Eos # (Auto) 0.3 Baso # (Auto) 0.0 Total Counted 100 Neutrophils % (Manual) 69 Lymphocytes % (Manual) 20 Monocytes % (Manual) 8 Eosinophils % (Manual) 3 Platelet Estimate Normal Hypochromasia 1+ Sodium 137 Potassium 4.4 Chloride 107 Carbon Dioxide 26 Anion Gap 8.4 BUN 18 H Creatinine 1.00 D Estimated Creat Clear 59 Estimated GFR 57 L Est GFR ( Amer) 69 D Glucose 208 H D POC Glucose 345 H* 246 H Calcium 8.9 04/28/25 04/27/2504/27/25 05:10 19:52 16:37 WBC RBC Hgb Hct MCV MCH MCHC RDW Plt Count MPV Neut % (Auto) Lymph % (Auto) [place] % (Auto) Eos % (Auto) Baso % (Auto) Neut # (Auto) Lymph # (Auto) [place] # (Auto) Eos # (Auto) Baso # (Auto) Total Counted Neutrophils % (Manual) Lymphocytes % (Manual) Monocytes % (Manual) Eosinophils % (Manual) Platelet Estimate Hypochromasia Sodium Potassium Chloride Carbon Dioxide Anion Gap BUN Creatinine Estimated Creat Clear Estimated GFR Est GFR ( Amer) Glucose POC Glucose 198 H 264 H 277 H Calcium 04/27/25 05:22 WBC RBC Hgb Hct MCV MCH MCHC RDW Plt Count MPV Neut % (Auto) Lymph % (Auto) [place] % (Auto) Eos % (Auto) Baso % (Auto) Neut # (Auto) Lymph # (Auto) [place] # (Auto) Eos # (Auto) Baso # (Auto) Total Counted Neutrophils % (Manual) Lymphocytes % (Manual) Monocytes % (Manual) Eosinophils % (Manual) Platelet Estimate Hypochromasia Sodium Potassium Chloride Carbon Dioxide Anion Gap BUN Creatinine Estimated Creat Clear Estimated GFR Est GFR ( Amer) Glucose POC Glucose 430 H* Calcium Preliminary micro results at discharge 04/26/25 14:40 Bone Culture - Preliminary Foot,Right Gram Positive Cocci 04/25/25 00:35 Wound Culture - Preliminary Foot,Right Gram Positive Cocci 04/25/25 00:10 Blood Culture - Preliminary Blood NO GROWTH AFTER 48 HOURS 04/25/25 00:10 Blood Culture - Preliminary Blood NO GROWTH AFTER 48 HOURS DS: Diagnosis Discharge Diagnosis (1) Status post amputation of toe of right foot: Status: Acute Code(s): Z89.421 - Acquired absence of other right toe(s) (2) Osteomyelitis of toe of right foot: Status: Acute Code(s): M86.9 - Osteomyelitis, unspecified (3) Diabetic foot infection: Status: Acute Code(s): E11.628 - Type 2 diabetes mellitus with other skin complications; L08.9 - Local infection of the skin and subcutaneous tissue, unspecified (4) Fracture of toe of right foot: Status: Acute Code(s): S92.911A - Unspecified fracture of right toe(s), initial encounter for closed fracture Qualifiers: Encounter type: initial encounter Fracture alignment: displaced Fracture type: open Phalanx: middle Toe: lesser toe Qualified Code(s): S92.521B - Displaced fracture of middle phalanx of right lesser toe(s), initial encounter for open fracture (5) Type 2 diabetes mellitus with vascular disease: Status: Chronic Code(s): E11.59 - Type 2 diabetes mellitus with other circulatory complications (6) 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: Status: Chronic Code(s): E66.813 - Obesity, class 3; E66.2 - Morbid (severe) obesity with alveolar hypoventilation; Z68.41 - Body mass index [BMI] 40.0-44.9, adult Qualifiers: Serious obesity comorbidity presence: with serious comorbidity Qualified Code(s): E66.813 - Obesity, class 3; E66.2 - Morbid (severe) obesity with alveolar hypoventilation; Z68.41 - Body mass index [BMI] 40.0-44.9, adult (7) Anxiety and depression: Status: Acute Code(s): F41.9 - Anxiety disorder, unspecified; F32.A - Depression, unspecified (8) Depression: Status: Acute Code(s): F32.A - Depression, unspecified Qualifiers: Active/Remission status: currently active Depression Type: major depressive disorder Major depression episode severity: moderate Major depression recurrence: recurrent Qualified Code(s): F33.1 - Major depressive disorder, recurrent, moderate Meds Home Medications and Allergies Home Medications ?Medication ?Instructions ?Recorded ?Confirmed ?Type aspirin 81 mg chewable tablet 81 mg PO DAILY HEART A [facility] #90 12/12/24 04/25/25 Rx tabs isosorbide mononitrate 60 mg 60 mg PO DAILY #90 tabs 0 12/12/24 04/25/25 Rx tablet,extended release 24 hr metoprolol tartrate 100 mg tablet 100 mg PO BID #180 t abs 12/12/24 04/25/25 Rx ramipril 5 mg capsule 5 mg PO DAILY #90 caps 12/1204/25/25 Rx spironolactone 25 mg tablet 25 mg PO DAILY #90 tabs 04/25/25 Rx dapagliflozin propanediol 10 mg 10 mg PO DAILY #90 tab s 01/16/25 04/25/25 Rx tablet ranolazine 1,000 mg 1,000 mg PO BID #60 tabs 02/0704/25/25 Rx tablet,extended release,12 hr duloxetine 60 mg capsule,delayed 60 mg PO BID #180 cap s 01/31/25 04/25/25 Rx release insulin syringe-needle U-100 0.5 #500 ea 01/31/2504/16 Rx mL 31 gauge x /16 (Sure Comfort Insulin Syringe) tramadol 50 mg tablet 50 mg PO Q6H PRN breakthroug h 01/31/25 04/25/25 Rx pain, moderate #120 tabs trazodone 100 mg tablet 100 mg PO HS #90 tabs 04/25/25 Rx ezetimibe 10 mg tablet 10 mg PO HS #90 tabs 5 04/25/25 Rx pen needle, diabetic 31 gauge x #1,200 ea 02/07/2509/09 Rx 5/16 (Unifine Pentips) rivaroxaban 2.5 mg tablet (Xarelto) 2.5 mg PO BIDWMEAL #60 tabs 02/07/25 04/25/25 Rx insulin aspart U-100 100 unit/mL 18 unit (0.18 mL) SQ TID #45 mL 03/15/2504/25 Rx (3 mL) subcutaneous pen (Novolog FlexPen U-100 Insulin aspart) blood-glucose sensor (Faction Skis G7 #3 ea 03/28/25 5 Rx Sensor device) pregabalin 200 mg capsule 200 mg PO BID #180 caps 06/04/0904/25/25 Rx hydroxyzine HCl 25 mg tablet 25 mg PO HS 04/25/2504/16 History atorvastatin 40 mg tablet 40 mg PO HS #30 tabs 5 Rx hydrocodone 10 mg-acetaminophen 1 tab PO Q6HP PRN pain (scale 04/28/25 04/25/25 Rx 325 mg tablet score 4-6) 4 days #16 tabs insulin glargine 100 unit/mL (3 60 unit (0.6 mL) SQ BI D #12 mL 04/28/25 04/25/25 Rx mL) subcutaneous pen insulin lispro 100 unit/mL 1 sliding scale dose SQ ACH S #10 mL 04/28/25 Rx subcutaneous solution (Humalog U-100 Insulin) levofloxacin 750 mg tablet 750 mg PO Q24H 6 days #6 ta bs 04/28/25 Rx metformin 500 mg tablet 500 mg PO BIDWMEAL 30 days # 60 tabs 04/28/25 Rx metronidazole 500 mg tablet 500 mg PO TID 6 days #18 t abs 04/28/25 Rx polyethylene glycol 3350 17 gram 17 g PO DAILY #30 ea 04/28/25 Rx oral powder packet (HealthyLax) sulfamethoxazole 800 1 tab PO BID #20 tabs Rx mg-trimethoprim 160 mg tablet (Bactrim DS) New Prescriptions to Start Prescriptions: Yulissa Mireles insulin lispro [Humalog U-100 Insulin] Yulissa Barrera levofloxacin Yulissa Barrera metformin Yulissa Barrera metronidazole Bruce,Yulissa polyethylene glycol 3350 [HealthyLax] Bruce,Yulissa sulfamethoxazole-trimethoprim [Bactrim DS] Yulissa Barrera Allergies Allergy/AdvReac Type Severity Reaction Status Date / Time clopidogrel (From Plavix) Allergy Severe Hives Verified 01/16/25 14:44 amoxicillin (AMOXICILLIN) Allergy Unknown Unknown Verified 01/16/25 14:44 allergy reaction codeine (CODEINE) AdvReac Mild STOMACH Verified 01/16/25 14:44 CRAMPS morphine (MORPHINE) AdvReac Mild STOMACH Verified 01/16/25 14:44 CRAMPS oxycodone (From Percocet) AdvReac Mild STOMACH Verified 01/16/25 14:44 CRAMPS Discharge Plan Disposition Patient Disposition: Xfer SNF Condition: Fair Discharge Order Discharge Orders: Discharge Order (Routine); Ordered 04/28/25 Ordered By: Yulissa Barrera Follow up Plan Follow up with: Diego Lynch MD [Primary Care Provider, Medical] - Enter time for follow up Referral Note: 2 weeks Gordon Williamson DO [Staff Physician, Orthopedics] - Enter time for follow up Referral Note: 1 week Prescriptions/Medication Reconciliation: New polyethylene glycol 3350 [HealthyLax] 17 gram Powder In Packet 17 g PO DAILY Qty: 30 0RF insulin lispro [Humalog U-100 Insulin] 100 unit/mL Solution 1 sliding scale dose SQ ACHS Qty: 10 0RF atorvastatin 40 mg Tablet 40 mg PO HS Qty: 30 3RF levofloxacin 750 mg Tablet 750 mg PO Q24H 6 Days Qty: 6 0RF metronidazole 500 mg Tablet 500 mg PO TID 6 Days Qty: 18 0RF metformin 500 mg Tablet 500 mg PO BIDWMEAL 30 Days Qty: 60 3RF sulfamethoxazole-trimethoprim [Bactrim DS] 800-160 mg tablet 1 tab PO BID Qty: 20 0RF Continued aspirin 81 mg tablet,chewable 81 mg PO DAILY Qty: 90 3RF isosorbide mononitrate 60 mg tablet extended release 24 hr 60 mg PO DAILY Qty: 90 3RF metoprolol tartrate 100 mg tablet 100 mg PO BID Qty: 180 3RF ramipril 5 mg capsule 5 mg PO DAILY Qty: 90 3RF spironolactone 25 mg tablet 25 mg PO DAILY Qty: 90 3RF ranolazine 1,000 mg tablet extended release 12 hr 1,000 mg PO BID Qty: 60 5RF dapagliflozin propanediol 10 mg tablet 10 mg PO DAILY Qty: 90 3RF duloxetine 60 mg capsule,delayed release(DR/EC) 60 mg PO BID Qty: 180 1RF (DME) insulin syringe-needle U-100 [Sure Comfort Insulin Syringe] 0.5 mL 31 gauge x 5/16 syringe See Rx Instructions .ROUTE .MEDSUPPLY Qty: 500 1RF Rx Instructions: As directed tramadol 50 mg tablet 50 mg PO Q6H PRN (Reason: breakthrough pain, moderate) Qty: 120 0RF trazodone 100 mg tablet 100 mg PO HS Qty: 90 0RF (DME) pen needle, diabetic [Unifine Pentips] 31 gauge x 5/16 needle See Rx Instructions .ROUTE .MEDSUPPLY Qty: 1200 1RF Rx Instructions: As directed Xarelto 2.5 mg tablet 2.5 mg PO BIDWMEAL Qty: 60 5RF ezetimibe 10 mg tablet 10 mg PO HS Qty: 90 1RF insulin aspart U-100 [Novolog FlexPen U-100 Insulin] 100 unit/mL (3 mL) insulin pen 18 unit SQ TID Qty: 45 3RF (DME) Dexcom G7 Sensor Device See Rx Instructions .Route Qty: 3 5RF Rx Instructions: As directed pregabalin 200 mg capsule 200 mg PO BID Qty: 180 0RF hydroxyzine HCl 25 mg tablet 25 mg PO HS Changed hydrocodone-acetaminophen 10-325 mg tablet 1 tab PO Q6HP PRN (Reason: pain (scale score 4-6)) 4 Days Qty: 16 0RF Patient Comments: 1 tab orally every 6 hours As Needed for pain insulin glargine 100 unit/mL (3 mL) insulin pen 60 unit SQ BID Qty: 12 5RF Discontinued rosuvastatin 20 mg tablet 20 mg PO DAILY Qty: 90 3RF Problem Reconciliation Problems Reviewed?: Yes Patient Discharge Instructions ACTIVITY: Continue current activity DIET: diabetic diet Patient Instructions: DI for Diabetic Foot Ulcer, DI for Surgical Site Infection, Stop Light Infection Print Language: Ukrainian Providers Primary Care Provider: Diego Lynch Admit Provider: Levi Soria Attending Provider: Levi Soria
[2025-04-28] MEDS: HYDROCODONE 10MG/APAP 325MG TAB 1 TAB PO (16:51)
--- NOTE | 2025-04-30 08:31 | PC.NURSE ---
wound culture report forwarded to hospitalist.
== END 2025-04-28 17:21 | DRG 617 ==
LOC: ER 04-25 00:05 → 2ND 04-25 02:02
PROVIDERS: Orthopaedic Surgery; Student in an Organized Health Care Education/Training Program; Admitting Provider Internal Medicine Adolescent Medicine; Emergency Provider Emergency Medicine; PCP Internal Medicine; Visit Provider Internal Medicine Adolescent Medicine
PROC: 0Y6R0Z1 Detachment at Right 2nd Toe, High, Open Approach (ICD-10-PCS; principal; 2025-04-26 13:15)
DX: E11.69 Type 2 diabetes mellitus with other specified complication (principal); E66.2 Morbid (severe) obesity with alveolar hypoventilation; Z68.41 Body mass index [BMI] 40.0-44.9, adult; M86.171 Other acute osteomyelitis, right ankle and foot; I25.10 Atherosclerotic heart disease of native coronary artery without angina pectoris; Z89.512 Acquired absence of left leg below knee; F32.A Depression, unspecified; G89.29 Other chronic pain; I10 Essential (primary) hypertension; F41.9 Anxiety disorder, unspecified; L08.9 Local infection of the skin and subcutaneous tissue, unspecified; E11.628 Type 2 diabetes mellitus with other skin complications; S92.521B Displaced fracture of middle phalanx of right lesser toe(s), initial encounter for open fracture; W22.03XA Walked into furniture, initial encounter; E11.51 Type 2 diabetes mellitus with diabetic peripheral angiopathy without gangrene; E11.10 Type 2 diabetes mellitus with ketoacidosis without coma; R25.1 Tremor, unspecified; Z79.82 Long term (current) use of aspirin; B95.62 Methicillin resistant Staphylococcus aureus infection as the cause of diseases classified elsewhere; Z79.4 Long term (current) use of insulin; Z79.01 Long term (current) use of anticoagulants; Z79.899 Other long term (current) drug therapy; Z88.5 Allergy status to narcotic agent; Z88.8 Allergy status to other drugs, medicaments and biological substances
CPT/HCPCS: 36415; 73630; 73700; 80048; 80053; 80202; 82009; 82803; 82962; 83036; 83605; 83735; 84100; 85007; 85014; 85018; 85025; 85048; 85049; 86140; 87040; 87070; 87077; 87186; 87205; 88304; 97162; 97166; 97530; J0665; J0692; J1100; J1650; J1836; J1885; J2003; J2250; J2270; J2371; J2704; J3010; J3370; J3372; J3475; J7030; J7040; J7050; J7120

== ENCOUNTER 2025-05-04 15:06 | Outpatient (CLI) | payer MEDICARE, SELFPAY ==
--- NOTE | 2025-05-04 15:09 | XR_ITS ---
FINAL REPORT CLINICAL HISTORY: pain, swelling of rt knee COMPARISON: None FINDINGS: AP, lateral and oblique views of the right knee were obtained. There is no prior exam for comparison. There is no acute osseous abnormality of the right knee. Mild degenerative joint disease is present, most pronounced in the patellofemoral compartment. The soft tissues are normal. There is no joint effusion. IMPRESSION: Mild degenerative joint disease, with no acute osseous abnormality of the right knee. Reviewed, Interpreted and Dictated by Fannie Go MD Transcribed by Sunitha Rebolledo Authenticated and [facility]
--- OUTSIDE RECORDS SUMMARY | 2025-05-04 15:09 | XMS_ITS | Encounter Summary ---
Author Organization [facility] [employer] Address [address] [place] [id number] Care Team Providers Care Roving Tester Laboratory Name Role Phone Unavailable Primary Care Provider Unavailabl e Encounter Details Date Type Department Care Team (Late st Contact Info) Description 05/15/2022 Transcribed Document [facility] [place] [address] [place] [address] ProviderEvangelista MD [address] [place] [address] Social History Tobacco Use Types [...] MD - 05/15/2022 8:56 AM CDT [facility] [place] [address] BEE COLON :1970 Visit Time:05/15/2022 What [...] EDT Where: [address] [facility] (1) Medications What How Much When Instructions Next Dose isosorbide mononitrate (isosorbide mononitrate 60 mg oral tablet, extended release) 1 Tablet(s) Oral At Bedtime acetaminophen-hydrocodone (Cameron 10 mg-325 mg oral tablet) 1 Tablet(s) [...] these instructions at home: Medicines ??? Take vlrr-vpa-xycfoys and prescription medicines only as told by [...] keep your urine pale yellow. ? Take cfye-dem-ialacyk or prescription medicines. ? Eat foods that [...] and water are not available, use hand customer care specialist. ? Change your dressing as told [...] provider. Document Revised: 02/22/2020 Document Reviewed: 10/25/2019 [employer] Patient Education ?? 202 [employer] Outpatient Surgery, Adult, Care After This [...] children on your own. Medicines ??? Take ndpc-cbm-eqhntjg and prescription medicines only as told by [...] keep your urine pale yellow. ? Take djby-egn-oeqmiia or prescription medicines. ? Eat foods that [...] added (diluted fruit juice). ? Eat bland, issi-cq-uwnhnk foods in small amounts as you are [...] and water are not available, use hand customer care specialist. ? Change your dressing as told [...] drink clear fluids slowly and eat bland, vipb-ic-acihrv foods in small amounts. ??? Ask your health care provider what activities are safe for you. This information is not intended to replace advice given to you by your health care provider. Make sure you discuss any questions you have with your health care provider. Document Revised: 03/01/2021 Document Reviewed: 08/23/2020 [employer] Patient Education ?? 2020 [employer] Emergency Awareness and Preventative Care STROKE [...] Assistance with quitting is available by contacting 8-012-QHXE-NOW. This is a free resource providing counseling, [...] was given the opportunity to ask questions. Patient/Bondactor Machine Operator Name: Patient/Bondactor Machine Operator Signature: Relationship to Patient: Clinician/Hospital Bondactor Machine Operator Signature: Date: documented in this encounter Plan of Treatment Not on file documented as of this encounter Visit Diagnoses Not on filedocumented in this encounter
--- OUTSIDE RECORDS SUMMARY | 2025-05-04 15:09 | XMS_ITS | Encounter Summary ---
Author Organization [employer] Address [address] [place] [address] Care Team Providers Care Fluorescent Lamp Replacer Name Role Phone Unavailable Primary Care Provider Unavailabl e Encounter Details Date Type Department Care Team (Late st Contact Info) Description 05/15/2022 Transcribed Document [facility] [place] Family Medicine [address] [place] [address] ProviderEvangelista MD [address] [place] [address] Social History Tobacco Use Types [...] Evangelista ProviderMD - 05/15/2022 8:00 AM CDT [facility] Main OR PostOp Summary Primary Physician: ANGELA GREEN DPM-POD Finalized Date/Time: 05/15/22 09:37:38 Pt. Name: BEE COLON/Sex: 1970 Female Med Rec #: [id number] Physician: ANGELA GREEN DPM-POD Financial #: [id number] Pt. Type: O Room/Bed: /12 Admit/Disch: 05/15/22 06:55:00 - Institution: [facility] Main OR PostOp Case Times Entry 1 In PACU II 05/15/22 08:29:00 Ready for PACU II 05/15/22 09:35:00 Discharge Discharge from PACU 05/15/22 09:35:00 II Last Modified By: DEMETRICE PEREZ, RN 05/15/22 09:37:34 [facility] Main OR PostOp Case Times Audit 05/15/22 09:37:34 Optics Engineer: [email or web address] Modifier: [email or web address] <+> 1 Ready for PACU II Discharge <+> 1 Discharge from PACU II Finalized By: DEMETRICE PEREZ, RN Document Signatures Signed By: DEMETRICE PEREZ, RN 05/15/22 09:37 Electronically signed by Atul [facility] Conversion Anesthesiology Medical Doctor Cerner at 03/05/2023 6:53 PM CDT documented in this encounter Plan of Treatment Not on file documented as of this encounter Visit Diagnoses Not on filedocumented in this encounter
--- OUTSIDE RECORDS SUMMARY | 2025-05-04 15:09 | XMS_ITS | Encounter Summary ---
Author Organization [employer] Address [address] [place] [address] Care Team Providers Care Linotype Machinist Apprentice Name Role Phone Unavailable Primary Care Provider Unavailabl e Encounter Details Date Type Department Care Team (Late st Contact Info) Description 06/06/2020 Transcribed Document [facility] [place] Family Medicine [facility] [place] [address] ProviderEvangelista MD [address], [place] [id number] Social History Tobacco Use Types Packs/Day Years [...] two months. DAYTON Cole/jonil Electronically signed by Maria Fareri [facility] Conversion Night Warehouse Manager Cerner at 03/05/2023 7:03 PM CDT documented in this encounter Plan of Treatment Not on file documented as of this encounter Visit Diagnoses Not on filedocumented in this encounter
--- OUTSIDE RECORDS SUMMARY | 2025-05-04 15:09 | XMS_ITS | Encounter Summary ---
Author Organization [employer] Address [address] [place] [address] Care Team Providers Care Cardiology Nurse Practitioner Name Role Phone Unavailable Primary Care Provider Unavailabl e Encounter Details Date Type Department Care Team (Late st Contact Info) Description 05/15/2022 Transcribed Document [facility] [place] Family Medicine [address] [place] [address] ProviderEvangelista MD [address] [place] [address] Social History Tobacco Use Types [...] Evangelista ProviderMD - 05/15/2022 8:[address] [facility] Main OR IntraOp Summary Primary Physician: ANGELA GREEN DPM-POD Finalized Date/Time: 05/20/22 14:13:00 Pt. Name: BEE COLON./Sex: 1970 Female Med Rec #: [id number] Physician: ANGELA GREEN DPM-POD Financial #: [id number] Pt. Type: O Room/Bed: 12 Admit/Disch: 05/15/22 06:55:00 - 05/15/22 09:35:00 Institution: [facility] IntraOp Case Attendance Entry 1 Entry 2 Entry 3 Case Attendee ANGELA GREEN DPM-POD CHALKLEY, JUDSON E, Versteeg, Beckie, RN MD-ANS Role Performed Surgeon/Proceduralist, Anesthesiologist of Manager Critical Care, First First Record Time In 05/15/22 07:41:00 [...] RN LONG, PAULA R., ST Role Performed Manager Critical Care, Second Manager Critical Care, Third Scrub, First Time In 05/15/22 07:41:00 05/15/22 07:41:00 05/15/22 07:41:00 Time Out 05/15/22 08:26:00 05/15/22 08:26:00 05/15/22 08:26:00 Procedure Toe Amputation Toe Amputation Toe Amputation Other Attendee Superficial Wound Closed By: Last Modified By: Milly Powers, Milly Sandhu, Milly Sandhu RN 05/15/22 08:35:45 05/15/22 08:35:45 05/15/22 08:35:45 Entry 7 Case Attendee SHANA EASLEY HOTEL CLERK Role Performed HOTEL CLERK/Nurse Technical Clerk Time In 05/15/22 07:41:00 Time Out 05/15/22 08:26:00 Procedure Toe Amputation Other Attendee Superficial Wound Closed By: Last Modified By: Milly Powers RN 05/15/22 08:35:45 [facility] IntraOp Case Attendance Audit 05/15/22 08:35:45 Staff Air Tactical Officer: [id number] Modifier: [id number] <+> Time Out 1 <*> Procedure [...] 7 <*> Procedure Toe Amputation 05/15/22 08:22:45 Staff Air Tactical Officer: [id number] Modifier: [id number] 1 <+> Time In 1 <*> Procedure [...] 7 <*> Procedure Toe Amputation 05/15/22 07:57:53 Staff Air Tactical Officer: [id number] Modifier: [id number] 1 <*> Case Attendee ANGELA GREEN DPM-POD 1 <*> Role Performed Surgeon/Proceduralist, First 1 <*> Procedure Toe Amputation 2 <*> Case Attendee JOSE ASHFORD MD-ANS 2 <*> Role Performed Anesthesiologist of Record 2 <*> Procedure Toe Amputation Entry 3 was deleted. Higher numbered entries shifted one position to fill the gap. <-> 3 Case Attendee MARYAN CHAUDHARI NA <-> 3 Role Performed HOTEL CLERK/Nurse Technical Clerk <-> 3 Procedure Toe Amputation <+> 4 Case Attendee <+> 4 Role Performed <+> 4 Procedure <+> 5 Case Attendee <+> 5 Role Performed <+> 5 Procedure <+> 6 Case Attendee <+> 6 Role Performed <+> 6 Procedure 05/15/22 07:40:54 Staff Air Tactical Officer: [id number] Modifier: [id number] <+> 1 Procedure 2 <*> Procedure Toe Amputation 3 <*> Procedure Toe Amputation [facility] IntraOp Case Times Entry 1 Patient In Room Time 05/15/22 07:41:00 Out Room Time 05/15/22 08:26:00 Anesthesia Start Time 05/15/22 07:41:00 Stop Time 05/15/22 08:26:00 Surgery / Procedure Times Start Time 05/15/22 08:00:00 Stop Time 05/15/22 08:20:00 Last Modified By: Milly Powers RN 05/15/22 08:35:43 [facility] IntraOp Case Times Audit 05/15/22 08:35:43 Staff Air Tactical Officer: [id number] Modifier: [id number] <+> 1 Out Room Time <+> 1 Stop Time 05/15/22 08:20:25 Staff Air Tactical Officer: [id number] Modifier: [id number] <+> 1 Stop Time 05/15/22 08:01:04 Staff Air Tactical Officer: [id number] Modifier: [id number] <+> [address] [facility] IntraOp Communication Entry 1 Communication To Family/Significant other Comment start Communication By Pablo David RN Date and Time 05/15/22 08:00:00 Last Modified By: Milly Powers RN 05/15/22 08:01:20 [facility] IntraOp Counts Verification Entry 1 Procedure Toe Amputation Count Info Count Type Sponge, Sharps, Miscellaneous Counts Verification Baseline/pre-procedure Sequence Count Results Not Applicable Counts Performed By Count Performed By ZHANNA LU ST (Scrub) Count Performed By Pablo David RN (RN) Last Modified By: Milly Powers RN 05/15/22 07:58:20 [facility] IntraOp Counts Final Entry 1 Procedure Toe Amputation Final Count Info Count Type Sponge, Sharps, Miscellaneous Counts Verification Skin Closure/end of Sequence procedure Count Results Correct, surgeon notified Counts Performed By Count Performed By ZHANNA LU ST (Scrub) Count Performed By Milly Powers RN (RN) Last Modified By: Milly Powers RN 05/15/22 08:17:25 [facility] IntraOp Counts Final Audit 05/15/22 08:17:25 Staff Air Tactical Officer: [id number] Modifier: [id number] 1 <*> Procedure Toe Amputation 1 <+> Count Performed By (Scrub) 1 <+> Count Performed By (RN) [facility] IntraOp Cultures and Spec Summary Entry 1 Cultrures and Specimens Specimen Ordered: Yes Test(s) Routine/Path-Lab, Requested/Final Culture(s)/Microbiology Disposition Last Modified By: Milly Powers RN 05/15/22 07:58:38 General Comments: SPECIMENS a. 5th toe and 5th metatarsal, right foot CULTURES 1. right foot surgical site [facility] IntraOp Delays Entry 1 Delay Reason Patient, other (document in comment) Duration 11 Minute(s) Comment case moved up due to delay in previous case prep Last Modified By: Milly Powers RN 05/15/22 08:02:53 [facility] IntraOp Departure from OR Entry 1 Integumentary Assessment Integumentary WDL Assessment WDL Transfer/Handoff Transfer to Ambulatory unit, Phase II Handoff Method Bedside/Face to face, Phone call, Online nursing summary Post-op Transport Stretcher/Gurney Via Patient Transport Milly Powers RN Accompanied by Last Modified By: Milly Powers RN 05/15/22 08:03:25 [facility] IntraOp Dressing and Packing Entry 1 Type Dressing Wound Dressing Item 4x4's, Adaptic, Cristian, Kerlix/Feng Other Comments BETADINE SOLUTION ON FIELD Last Modified By: Milly Powers RN 05/15/22 08:17:31 [facility] IntraOp Fire Risk Assessment Entry 1 [...] Modified By: Milly Powers RN 05/15/22 08:03:56 [facility] IntraOp General Case Suction Operator 1 Case Information OR OR 05 [facility] Case Level 1 Room Verified Yes Wound Class 4 - Dirty, Infected Specialty Podiatry Anesthesia Type MAC ASA Class 4 Diagnosis Preop Diagnosis osteomyelitis right foot, pain right foot, ulcer to bone right foot Postop Same As Preop No Postop Diagnosis see surgeon postop notes Wound Class Definitions Last Modified By: Milly Powers RN 05/15/22 08:07:51 [facility] IntraOp Intraoperative Assessment Entry 1 Handoff Method Bedside/Face to face, Online nursing summary Valid History / Yes Physical in Chart Preoperative Yes Checklist Reviewed/Evaluated Allergies Reviewed Yes Patient is Latex No Sensitive Skin Assessment Yes Verified Present Upon IVs Arrival to OR Last Modified By: Milly Powers RN 05/15/22 08:20:08 [facility] IntraOp Intraoperative Assessment Audit 05/15/22 08:20:08 Staff Air Tactical Officer: [id number] Modifier: [id number] <+> 1 Patient is Latex Sensitive <+> 1 Valid History / Physical in Chart [facility] IntraOp Intraoperative Equipment Entry 1 Type Equipment Equipment Equipment Waste Management System ID Number [id number] Intraop Monitoring Electrocardiogram Five lead placement (ECG) Electrode Placement Antiembolic Devices Scopes Photo/Video Documentation Last Modified By: Milly Powers RN 05/15/22 08:18:25 [facility] IntraOp Medication Admin Entry 1 Entry 2 Entry 3 Medication/Irrigant vancomycin 1Gm vial - GENTAMYCIN 80MG/2ML SANTIAGO TORIBIO PWD [id number] VIAL - [id number] Combo Med List Time Administered Route of [...] lidocaine 1% 30ml vial 0.5% 30ml - [id number] - [id number] Combo Med List Time Administered 05/15/22 08:00:00 05/15/22 08:00:00 Route of inj inj Administration Dose Dose 4.5 4.5 Unit of Measure ml ml Volume Administered By ANGELA GREEN DPM-ANGELA DAVE DPM-POD Procedure Irrigation Irrigant Volume In Irrigant Volume Out Last Modified By: Milly Powers RN Versteeg, Beckie, RN 05/15/22 08:35:14 05/15/22 08:35:14 [facility] IntraOp Medication Admin Audit 05/15/22 08:35:14 Staff Air Tactical Officer: [id number] Modifier: [id number] <*> Medication/Irrigant Bupivicaine/Marcaine 0.5% 30ml - [id number] 4 <+> Dose 4 <+> Time Administered 4 <+> Unit of Measure 5 <*> Medication/Irrigant lidocaine 1% 30ml vial - [id number] 5 <+> Dose 5 <+> Time Administered 5 <+> Unit of Measure 05/15/22 08:34:18 Staff Air Tactical Officer: [id number] Modifier: [id number] <+> 4 Medication/Irrigant <+> 4 Route of Administration <+> 4 Administered By <+> 5 Medication/Irrigant <+> 5 Route of Administration <+> 5 Administered By 05/15/22 08:33:37 Staff Air Tactical Officer: [id number] Modifier: [id number] 1 <*> Medication/Irrigant vancomycin 1Gm vial - [id number] 1 <+> Route of Administration 1 <+> Administered By 1 <+> Dose 1 <+> Unit of Measure <+> 2 Medication/Irrigant <+> 2 Route of Administration <+> 2 Administered By <+> 2 Dose <+> 2 Unit of Measure <+> 3 Medication/Irrigant <+> 3 Route of Administration <+> 3 Administered By <+> 3 Dose <+> [address] [facility] IntraOp Patient Positioning Entry 1 Procedure [...] Modified By: Milly Powers RN 05/15/22 08:18:58 [facility] IntraOp Sign In Entry 1 Patient, [...] Modified By: Milly Powers RN 05/15/22 08:19:10 [facility] IntraOp Sign Out Entry 1 RN [...] Modified By: Milly Powers RN 05/15/22 08:35:54 [facility] IntraOp Sign Out Audit 05/15/22 08:35:54 Staff Air Tactical Officer: [id number] Modifier: [id number] <+> 1 RN Sign Out Signature Date/Time [facility] IntraOp Skin Prep Entry 1 Procedure Toe Amputation Prescribed Yes Pre-Surgical Prep Completed Intraop Prep Integumentary WDL Assessment WDL Prep Agents Betadine scrub, Betadine solution Prep by Milly Powers RN Hair Removal Last Modified By: Milly Powers RN 05/15/22 08:19:24 [facility] IntraOp Surgical Procedures Entry 1 Procedure Toe Amputation Additional (RIGHT PARTIAL 5TH RAY Procedure AMPUTATION) Description Primary Procedure Yes Primary Surgeon ANGELA GREEN DPM-POD Start 05/15/22 08:00:00 Stop 05/15/22 08:20:00 Anesthesia Type MAC Specialty Podiatry Wound Class 3 - Contaminated Last Modified By: Milly Powers RN 05/15/22 08:20:49 [facility] IntraOp Surgical Procedures Audit 05/15/22 08:20:49 Staff Air Tactical Officer: [id number] Modifier: [id number] 1 <*> Procedure Toe Amputation 1 <+> Wound Class 05/15/22 08:20:35 Staff Air Tactical Officer: [id number] Modifier: [id number] 1 <*> Procedure Toe Amputation 1 <+> Stop 05/15/22 08:19:00 Staff Air Tactical Officer: [id number] Modifier: [id number] <+> [address] [facility] IntraOp Temp Regulation Devices Entry 1 Temp Regulation Temperature Forced Air Warming Regulation Device device, Warm blankets Temperature Upper body Regulation Site Temperature Device ON Setting Temperature SHANA EASLEY CRNA Regulation Device Applied by Last Modified By: Milly Powers RN 05/15/22 08:19:50 [facility] IntraOP Time Out Entry 1 Procedure [...] Modified By: Milly Powers RN 05/15/22 08:02:08 [facility] IntraOP Time Out Audit 05/15/22 08:02:08 Staff Air Tactical Officer: [id number] Modifier: [id number] 1 <+> Beta Dmitriy Administered 1 <+> [...]
--- OUTSIDE RECORDS SUMMARY | 2025-05-04 15:09 | XMS_ITS | Encounter Summary ---
Author Organization [employer] Address [address] [place] [address] Care Team Providers Care Prototype Carpenter Name Role Phone Unavailable Primary Care Provider Unavailabl e Encounter Details Date Type Department Care Team (Late st Contact Info) Description 07/31/2020 Transcribed Document [facility] [place] [address] [place] [address] ProviderEvangelista MD [address], [place] [id number] Social History Tobacco Use Types Packs/Day Years [...] at this time with the use of [place] 10/325 mg four times daily dosing, Lyrica [...]
--- OUTSIDE RECORDS SUMMARY | 2025-05-04 15:09 | XMS_ITS | Encounter Summary ---
Author Organization [employer] Address [address] [place] [address] Care Team Providers Care Robotics Specialist Name Role Phone Unavailable Primary Care Provider Unavailabl e Encounter Details Date Type Department Care Team (Late st Contact Info) Description 12/17/2019 Transcribed Document [facility] [place] [facility] [place] [address] ProviderEvangelista MD [address] [place], [place] [id number] Social History Tobacco Use Types Packs/Day Years Used Date Smoking Tobacco: Never Assessed Comments Unknown Sex and Gender Information Value Date Recorded Sex Assigned at Not on file Legal Sex Female 3:10 PM CDT Gender Identity Not on file Sexual Orientation Not on file documented as of this encounter Miscellaneous Notes * Cerner Conversion Note - Evangelista Carbone MD - 12/17/2019 1:14 PM MORTGAGE LOAN PROCESSOR Patient: BEE COLON Age: 49 Years Sex: [...] peripheral diabetic neuropathy. She has been utilizing [place] 10/325 mg four times daily dosing, Tramadol [...]
--- OUTSIDE RECORDS SUMMARY | 2025-05-04 15:09 | XMS_ITS | Encounter Summary ---
Author Organization [employer] Address [address] [place] [address] Care Team Providers Care Car Pick Up Driver Name Role Phone Unavailable Primary Care Provider Unavailabl e Encounter Details Date Type Department Care Team (Late st Contact Info) Description 05/12/2022 Transcribed Document [facility] [place] Family Medicine [facility] [place] [address] ProviderEvangelista MD [address] [place], [place] [phone] Social History Tobacco Use Types Packs/Day Years [...] Ministry Provided to : Patient, Family/Significant other Yazdanism Preference : Catholic ([employer]) Aman Lujan Chaplain - 05/12/2022 15:58 EDT Spiritual Assessment Spiritual Assessment Comment/Summary Points : Supportive pre-surgery visit with patient, prayer provided. Spirital Assessment Comment/Summary Report : SPIRITUAL ASSESSMENT COMMENT/SUMMARY No qualifying data available. Aman Lujan Chaplain - 05/12/2022 15:58 EDT Interventions Emotional Support : Empathic/Engaged listening, Family/Significant other supported Spiritual and Yazdanism : Prayer shared, Spiritual/Yazdanism support provided Aman Lujan Chaplain - 05/12/2022 15:58 EDT Electronically signed by Atul, [facility] Conversion Call Center Consultant Cerner at 03/05/2023 7:01 PM CDT documented in this encounter Plan of Treatment Not on file documented as of this encounter Visit Diagnoses Not on filedocumented in this encounter
--- OUTSIDE RECORDS SUMMARY | 2025-05-04 15:09 | XMS_ITS | Encounter Summary ---
Author Organization [employer] Address [address] [place] [address] Care Team Providers Care Anthropologist Name Role Phone Unavailable Primary Care Provider Unavailabl e Encounter Details Date Type Department Care Team (Late st Contact Info) Description 05/15/2022 Transcribed Document [facility] [place] [address] [place] [address] ProviderEvangelista MD [address] [place] [address] Social History Tobacco Use Types [...] AM CDT [facility] Main OR Preop Summary Primary Physician: ANGELA GREEN DPM-POD Finalized Date/Time: 05/15/22 13:36:27 Pt. Name: BEE COLON/Sex: 1970 Female Med Rec #: [id number] Physician: ANGELA GREEN DPM-POD Financial #: [id number] Pt. Type: O Room/Bed: Admit/Disch: 05/15/22 06:55:00 - Institution: [facility] PreOp Case Times Entry 1 In Preop 05/15/22 05:45:00 Ready for Holding n/a Room Patient Ready for 05/15/22 07:15:00 Surgery Patient Out of Preop 05/15/22 07:38:00 Patient Out of n/a Holding Room Last Modified By: Juana Mclaughlin RN 05/15/22 11:19:58 [facility] PreOp Case Times Audit 05/15/22 13:36:25 Fabrication And Layout Craftsman: [id number] Modifier: [id number] <+> 1 In Preop 05/15/22 11:19:58 Fabrication And Layout Craftsman: [id number] Modifier: [id number] <+> 1 Patient Out of Preop Finalized By: Juana Mclaughlin, RN Document Signatures Signed By: Juana Mclaughlin RN 05/15/22 13:36 Electronically signed by Atul [facility] Conversion Systems Tester Cerner at 03/05/2023 7:02 PM CDT documented in this encounter Plan of Treatment Not on file documented as of this encounter Visit Diagnoses Not on filedocumented in this encounter
--- OUTSIDE RECORDS SUMMARY | 2025-05-04 15:09 | XMS_ITS | Encounter Summary ---
Author Organization [employer] Address [address] [place] [address] Care Team Providers Care Clinic Charge Nurse Name Role Phone Unavailable Primary Care Provider Alison e Encounter Details Date Type Department Care Team (Late st Contact Info) Description 05/15/2022 Transcribed Document [facility] [place] Family Medicine [facility] [place] [address] ProviderEvangelista MD [address] [place] [address] Social History Tobacco Use Types [...] 08:00:00 (05/15/22 08:19:00) Electronically signed by Atul [facility] Conversion Incident Response Specialist Cerner at 03/05/2023 6:46 PM CDT documented in this encounter Plan of Treatment Not on file documented as of this encounter Visit Diagnoses Not on filedocumented in this encounter
--- OUTSIDE RECORDS SUMMARY | 2025-05-04 15:09 | XMS_ITS | Encounter Summary ---
Author Organization [employer] Address [address] [place] [address] Care Team Providers Care Manager Of Clinical Name Role Phone Unavailable Primary Care Provider Unavailabl e Encounter Details Date Type Department Care Team (Late st Contact Info) Description 10/14/2019 Transcribed Document [facility] [place] [facility] [place] [address] ProviderEvangelista MD [address] [place], [place] [phone] Social History Tobacco Use Types Packs/Day Years Used Date Smoking Tobacco: Never Assessed Comments Unknown Sex and Gender Information Value Date Recorded Sex Assigned at Not on file Legal Sex Female 3:10 PM CDT Gender Identity Not on file Sexual Orientation Not on file documented as of this encounter Miscellaneous Notes * Cerner Conversion Note - Evangelista Carbone MD - 10/14/2019 12:06 PM RETAIL CUSTOMER SERVICE SPECIALIST Patient: BEE COLON Age: 49 Years [...] 75% pain relief at this time with [place] 10/325 mg four times daily dosing, Tramadol [...] implantation with good coverage. 4. History of Uivnkil-Zucnh-Wmawy involving the bilateral feet. 5. Left foot [...] agrees with the above plans. KAYLIN Navarro/florian Electronically signed by Dave Pollard Conversion Balance Wheel Screw Hole Driller Cerner at 03/05/2023 6:54 PM CDT documented in this encounter Plan of Treatment Not on file documented as of this encounter Visit Diagnoses Not on filedocumented in this encounter
--- OUTSIDE RECORDS SUMMARY | 2025-05-04 15:09 | XMS_ITS | Encounter Summary ---
Author Organization [employer] Address [address] [place] [address] Care Team Providers Care Building Equipment Inspector Name Role Phone Unavailable Primary Care Provider Unavailabl e Encounter Details Date Type Department Care Team (Late st Contact Info) Description 05/15/2022 Transcribed Document [facility] [place] [address] [place] [address] ProviderEvangelista MD [address] [place] [address] Social History Tobacco Use Types [...] these instructions at home: Medicines ??? Take rsyh-vep-qxtdrdu and prescription medicines only as told by [...] keep your urine pale yellow. ? Take carf-rxc-ptarkcd or prescription medicines. ? Eat foods that [...] and water are not available, use hand ore miner blasting. ? Change your dressing as told by [...] provider. Document Revised: 02/22/2020 Document Reviewed: 10/25/2019 [employer] Patient Education ? 2020 [employer] Procedures Outpatient Surgery, Adult, Care After [...] children on your own. Medicines ??? Take zrcz-ygr-gijahyd and prescription medicines only as told by [...] keep your urine pale yellow. ? Take looq-smy-jwjfbtl or prescription medicines. ? Eat foods that [...] added (diluted fruit juice). ? Eat bland, btlo-an-iqhifl foods in small amounts as you are [...] and water are not available, use hand ore miner blasting. ? Change your dressing as told by [...] drink clear fluids slowly and eat bland, bfco-hq-hcvgjn foods in small amounts. ??? Ask your health care provider what activities are safe for you. This information is not intended to replace advice given to you by your health care provider. Make sure you discuss any questions you have with your health care provider. Document Revised: 03/01/2021 Document Reviewed: 08/23/2020 [employer] Patient Education ? 2020 [employer] documented in this encounter Plan of Treatment Not on file documented as of this encounter Visit Diagnoses Not on filedocumented in this encounter
--- OUTSIDE RECORDS SUMMARY | 2025-05-04 15:09 | XMS_ITS | Encounter Summary ---
Author Organization [employer] Address [address] [place] [address] Care Team Providers Care Crew Boat Operator Name Role Phone Unavailable Primary Care Provider Unavailabl e Encounter Details Date Type Department Care Team (Late st Contact Info) Description 03/21/2020 Transcribed Document [facility] [place] [facility] [place] [address] ProviderEvangelista MD [address] [place], [place] [id number] Social History Tobacco Use Types Packs/Day Years [...] p.o. q h.s., Tramadol 50 mg q.i.d., [place] 10 mg q 6 h. She denies any side effects. She is in agreement with the above plan. We will see her back in follow-up in two months. Anahy Fraser M.D. BO/maurice documented in this encounter Plan of Treatment Not on file documented as of this encounter Visit Diagnoses Not on filedocumented in this encounter
--- OUTSIDE RECORDS SUMMARY | 2025-05-04 15:09 | XMS_ITS | Encounter Summary ---
Author Organization [employer] Address [address] [place] [address] Care Team Providers Care Secure Software Assessor Name Role Phone Unavailable Primary Care Provider Unavailabl e Encounter Details Date Type Department Care Team (Late st Contact Info) Description 07/11/2021 Transcribed Document [facility] [place] Medicine [facility] [place] [address] ProviderEvangelista MD [address] [place] [address] Social History Tobacco Use Types [...] ProviderMD - 07/11/2021 11:[address] [facility] Main OR Preop Summary Primary Physician: MANI THOMAS MD-SUR Finalized Date/Time: 07/11/21 13:05:00 Pt. Name: BEE COLON/Sex: 1970 Female Med Rec #: [id number] Physician: MANI TOHMAS MD-SUR Financial #: [id number] Pt. Type: O Room/Bed: Admit/Disch: 07/11/21 08:06:00 - Institution: [facility] PreOp Case Times Entry 1 In Preop [...]
--- OUTSIDE RECORDS SUMMARY | 2025-05-04 15:09 | XMS_ITS | Encounter Summary ---
Author Organization [employer] Address [address] [place] [address] Care Team Providers Care Teradata Developer Name Role Phone Unavailable Primary Care Provider Unavailabl e Encounter Details Date Type Department Care Team (Late st Contact Info) Description 05/15/2022 Transcribed Document [facility] [place] Family Medicine [facility] [place] [address] ProviderEvangelista MD [address] [place] [address] Social History Tobacco Use Types [...] AM CDT DATE OF PROCEDURE: 05/15/2022 Location: [facility] Patient : 1970 SURGEON: Sam Hamlin DPM DIE DRAWING CHECKER: None. PREOPERATIVE DIAGNOSES: 1. Osteomyelitis, right foot. [...] patient is at risk for further amputation. /[id number] JESUS Cassidy/RILEY / RADHA / MODL /[id number] documented in this encounter Plan of Treatment Not on file documented as of this encounter Visit Diagnoses Not on filedocumented in this encounter
--- OUTSIDE RECORDS SUMMARY | 2025-05-04 15:09 | XMS_ITS | Encounter Summary ---
Author Organization [employer] Address [address] [place] [address] Care Team Providers Care Associate Quality Engineer Name Role Phone Unavailable Primary Care Provider Unavailabl e Encounter Details Date Type Department Care Team (Late st Contact Info) Description 07/10/[address] [facility] [place] Family Medicine [address] [place] [address] ProviderEvangelista MD [address] [place], [place] [phone] Social History Tobacco Use Types Packs/Day Years [...] Ministry Provided to : Patient, Family/Significant other Evangelical Preference : [employer] ([employer]) MEDINA BRADFORD P - 07/11/2021 10:58 EDT Spiritual Assessment Spiritual Assessment Comment/Summary Points : Provided pre-surgery visit and prayer with patient and mother. Spirital Assessment Comment/Summary Report : SPIRITUAL ASSESSMENT COMMENT/SUMMARY No qualifying data available. MEDINA BRADFORD - 07/11/2021 10:58 EDT Interventions Emotional Support : Empathic/Engaged listening, Family/Significant other supported Spiritual and Evangelical : Prayer shared, Spiritual/Evangelical support provided MEDINA BRADFORD - 07/11/2021 10:58 EDT Electronically signed by Atul [facility] Conversion Gas Dispenser Cerner at 03/05/2023 6:48 PM CDT documented in this encounter Plan of Treatment Not on file documented as of this encounter Visit Diagnoses Not on filedocumented in this encounter
--- OUTSIDE RECORDS SUMMARY | 2025-05-04 15:09 | XMS_ITS | Encounter Summary ---
Author Organization [employer] Address [address] [place] [address] Care Team Providers Care Door Puller Name Role Phone Unavailable Primary Care Provider Unavailabl e Encounter Details Date Type Department Care Team (Late st Contact Info) Description 07/11/2021 Transcribed Document [facility] [address] [place] [address] Dennis Greco MD [address] [place] [address] Social History Tobacco Use Types Packs/Day Years [...]
--- OUTSIDE RECORDS SUMMARY | 2025-05-04 15:09 | XMS_ITS | Encounter Summary ---
Author Organization [employer] Address [address] [place] [address] Care Team Providers Care Clinical Pharmacy Manager Name Role Phone Unavailable Primary Care Provider Unavailabl e Encounter Details Date Type Department Care Team (Late st Contact Info) Description 05/13/2022 Transcribed Document [facility] [place] [address] [place] [address] ProviderEvangelista MD [address] [place] [address] Social History Tobacco Use Types [...] Tartrate: 100 mg, Oral, BID, 0 Refill(s) [place] 10 mg-325 mg oral tablet: 1 Tab, [...] BID Metoprolol Tartrate 100 mg, Oral, BID [place] 10 mg-325 mg oral tablet 1 Tab, PRN, Oral, Q6H ramipril 5 mg, Oral, Daily spironolactone 25 mg, Oral, Daily traZODone 100 mg, Oral, At Bedtime Victoza 1.8 mg, SubCutaneous, Daily Xarelto 2.5 mg, Oral, BID Zetia 10 mg, Oral, At Bedtime , No qualifying data available Problem list: All Problems 6-Stented coronary artery / SNOMED CT 7822427183 / Confirmed Spinal cord stimulator right hip :check w/ pt re on/off status / SNOMED CT 278278199 / Confirmed Peripheral vascular disease / SNOMED CT 4186360207 / Confirmed Hypertension / SNOMED CT 91853814 / Confirmed History of obstructive sleep apnea / IMO 16603032 / Confirmed Foot pain, right / SNOMED CT 004940731 / Confirmed Fibromyalgia / SNOMED CT 25457144 / Confirmed DM - wears Dexcom / SNOMED CT 574795635 / Confirmed Diabetic neuropathy / SNOMED CT 704428318 / Confirmed Coronary artery disease / SNOMED CT 5704827416 / Confirmed Chronic back pain / SNOMED CT 145927697 / Confirmed At risk for sleep apnea / IMO 50814424 / Confirmed Angina / SNOMED CT 338382004 / Confirmed -2020 Non-ST elevation [place] (NSTEMI) x 2 / SNOMED CT 0879579669 / Confirmed Canceled: Myocardial infarction / SNOMED CT 93887743 Canceled: Cellulitis of foot, left / SNOMED CT 788213139 s/p left foot transmetatarsal amp Canceled: Unsteady gait-uses cane / SNOMED CT 58816385 , Active Problems (14) -2020 Non-ST elevation [place] (NSTEMI) x 2 6-Stented coronary artery Angina [...] been selected or recorded. Procedure history: Hysterectomy (213133594). right foot pinning. lap with laser x3. rt knee scope x2. left knee scope. right hand CMC x4. left hand CMC x1. all toes amputated from left foot. left shoulder scope. right shoulder scope. Cholecystectomy (75811726). Appendectomy (229888661). spinal cord stimulator. Cardiac catheterization (07797764). Comments: 03/19/2022 12:20 EDT - Ale Gresham [...] EDT Height Source Measured Height Entry Format [place] Height/Length, UZBEK (ft) 0 ft Height/Length UZBEK 66.5 Inch CLINICALHEIGHT 168.91 cm [place] Body Weight 60 kg Weight Source Standing scale Weight Entry Format [place] Weight [place] lb 290 lb CLINICALWEIGHT 131.82 kg Body [...] ray 2. DM 3. ANA 4. CAD, [place] 5. back pain 6. fibromyalgia 7. neuropathy 8. HTN 9. PVD. Condition: Stable. pt to proceed with surgery, DC home same day documented in this encounter Plan of Treatment Not on file documented as of this encounter Visit Diagnoses Not on filedocumented in this encounter
--- OUTSIDE RECORDS SUMMARY | 2025-05-04 15:09 | XMS_ITS | Clinical Summary ---
Author Organization [facility] Address [address] [place] [address] Phone Care Team Providers Care Commercial Cleaner Name Role Phone Kaity Emerson Unavailable Unavailable Conditions or Problems Problem Name Problem Code Onset Date Status Entry Date Provider Comment Standard Description Annotate Candidiasis , vaginal 29551164 (SNOMED CT) 03/18 Active 03/19 Charlene W Candidiasis of vagina Thrush, oral 72373729 (SNOMED CT) 03/11 Inactive 03/11 Charlene W Candidiasis of mouth Problem excluded fro m report: Other obesity due to excess calories 324010631 (SNOMED CT) 03/15 Active 03/15 Cindi Traore Simple obesity Thrush, oral 66130080 (SNOMED CT) 03/11 Active 03/11 Jeet Rene MD Candidiasis of mouth Thrush, oral 09601373 (SNOMED CT) 03/11 Removed 03/11 Elizabeth Sims Candidiasis of mouth Hx of left TMA 36152811229 200817 (SNOMED CT) 03/04 Active 03/01 Charlene W History of amputation of left lesser toe DM non-pressur e chronic ulcer of left foot, plantar surface, with bone involvement without evidence of necrosis (E11.621) 067241315 (SNOMED CT) 03/01 Inactive 03/01 Luna Hughes Chronic ulcer of foot Chronic osteomyelit is, left foot M86.672 (ICD-10-CM) 03/01 Active 03/01 Luna Hughes Other chronic osteomyelitis, left ankle and foot Coronary artery disease (CAD) 77234378 (SNOMED CT) 03/01 Active 03/01 Luna Hughes Coronary arteriosclerosi s Benign Essential Hypertensio n 9898649 (SNOMED CT) 03/01 Active 03/01 Luna Hughes Benign essential hypertension Cellulitis, foot, left 668498741 (SNOMED CT) 03/01 Active 03/01 Luna Hughes Cellulitis of foot DM Type II E11.9 (ICD-10-CM) 03/01 Active 03/01 Luna Hughes Type 2 diabetes mellitus without complications BMI 45.0-49.9 Z68.42 (ICD-10-CM) 12/14 Resolved 12/14 Luna Hughes Body mass index [BMI] 45.0-49.9, adult MORBID OBESITY 634771954 (SNOMED CT) 12/14 Resolved 12/14 Luna Hughes Morbid obesity TOBACCO USER 373183543 (SNOMED CT) 12/03 Resolved 12/03 Luna Hughes Tobacco user C. DIFF COLITIS A04.7 (ICD-10-CM) 12/03 Resolved 12/03 Luna Hughes Enterocolitis due to Clostridium difficile DM II, UNCONTROLLE D E11.65 (ICD-10-CM) 12/03 Resolved 12/03 Luna Hughes Type 2 diabetes mellitus with hyperglycemia FEVER 991187349 (SNOMED CT) 12/03 Resolved 12/03 Luna Saul Fever VAGINAL CANDIDIASIS 95847549 (SNOMED CT) 12/03 Resolved 12/03 Luna Saul Candidiasis of vagina DIVERTICULI TIS OF SIGMOID COLON 206152093 (SNOMED CT) 12/03 Resolved 12/03 Luna Saul Diverticulitis of sigmoid colon BMI 45.0-49.9 Z68.42 (ICD-10-CM) 12/14 Removed 12/14 Charlene W Body mass index [BMI] 45.0-49.9, adult MORBID OBESITY 385607685 (SNOMED CT) 12/14 Removed 12/14 Charlene W Morbid obesity DM II, UNCONTROLLE D E11.65 (ICD-10-CM) 12/03 Removed 12/03 Charlene W Type 2 diabetes mellitus with hyperglycemia DIARRHEA OF PRESUMED INFECTIOUS ORIGIN 36639033 (SNOMED CT) 12/03 Correction 12/03 Charlene W Diarrhea of presumed infectious origin ABDOMINAL PAIN, LEFT LOWER QUADRANT 526104259 (SNOMED CT) 12/03 Correction 12/03 Charlene W Left lower quadrant pain WEAKNESS 98698772 (SNOMED CT) 12/03 Correction 12/03 Charlene W Asthenia WEIGHT LOSS 873479019 (SNOMED CT) 12/03 Correction 12/03 Charlene W Abnormal weight loss DIARRHEA 46739220 (SNOMED CT) 12/03 Correction 12/03 Charlene W Diarrhea DM TYPE II E11.9 (ICD-10-CM) 12/03 Correction 12/03 Luna Hughes Type 2 diabetes mellitus without complications TOBACCO USER 505215554 (SNOMED CT) 12/03 Removed 12/03 Luna Saul Tobacco user WEIGHT LOSS 478836785 (SNOMED CT) 12/03 Removed 12/03 Luna Saul Abnormal weight loss WEAKNESS 03681199 (SNOMED CT) 12/03 Removed 12/03 Luna Saul Asthenia FEVER 797607639 (SNOMED CT) 12/03 Removed 12/03 Luna Saul Fever C. DIFF COLITIS A04.7 (ICD-10-CM) 12/03 Removed 12/03 Luna Saul Enterocolitis due to Clostridium difficile DIARRHEA OF PRESUMED INFECTIOUS ORIGIN 99377976 (SNOMED CT) 12/03 Removed 12/03 Luna Saul Diarrhea of presumed infectious origin DIARRHEA 78229651 (SNOMED CT) 12/03 Removed 12/03 Luna Saul Diarrhea DIVERTICULI TIS OF SIGMOID COLON 340914705 (SNOMED CT) 12/03 Removed 12/03 Luna Saul Diverticulitis of sigmoid colon ABDOMINAL PAIN, LEFT LOWER QUADRANT 146960714 (SNOMED CT) 12/03 Removed 12/03 Luna Saul Left lower quadrant pain VAGINAL CANDIDIASIS 70016426 (SNOMED CT) 12/03 Removed 12/03 Luna Hughes Candidiasis of vagina Medications Medication Instructions Start Date Stop Date Generic Name NDC Provider DOXYCYCLINE MONOHYDRATE 100 MG CAPS Take one capsule by mouth twice daily DOXYCYCLINE MONOHYDRATE 54735049825 Jeet Rene MD TEFLARO SOLR 600mg IV Q 12hrs x 4wks Bioscrip/Dose, line care, labs [facility] CEFTAROLINE FOSAMIL SOLR [phone] Kaity Emerson DOXYCYCLINE MONOHYDRATE 100 MG CAPS Take one capsule by mouth twice daily DOXYCYCLINE MONOHYDRATE 94195067935 Jeet Rene MD FLUCONAZOLE 100 MG TABS Take two tablets by mouth once daily FLUCONAZOLE 51744861682 Jeet Rene MD DIFLUCAN 100 MG TABS Take two tablets by mouth once daily FLUCONAZOLE 08859848108 Jeet Rene MD FLAGYL 500 MG ORAL TABLET Take one tablet by mouth three times daily METRONIDAZOLE 34846240399 Jeet Rene MD ONDANSETRON 4 MG TBDP Take one tablet by mouth every 12 hours ONDANSETRON 96407166425 Jeet Rene MD TEFLARO SOLR 600mg IV Q 12hrs x 4wks Bioscrip/Dose, line care, labs [facility] CEFTAROLINE FOSAMIL SOLR 79647485207 Kaity Ki DAPTOMYCIN SOLR 750mg IV daily x 6wks HH Bioscrip/Dose, line care labs LID DAPTOMYCIN SOLR 57557129997 Kaity Ki CEFEPIME HCL SOLN 2gm IV q 12hrs x 6wks HH Bioscrp, Dose, line care, labs LID CEFEPIME HCL SOLN 89362630442 Kaity Emerson FLUCONAZOLE 200 MG TABS Take one tablet by mouth daily FLUCONAZOLE 84145474916 Jeet Rene MD CEFEPIME HCL SOLN 2gm IV q 12hrs x 6wks Bioscrp, Dose, line care, labs [facility] CEFEPIME HCL SOLN 45247718998 Kaity Emerson DAPTOMYCIN SOLR 750mg IV daily x 6wks Bioscrip/Dose, line care labs [facility] DAPTOMYCIN SOLR 48376297474 Kaiyt Emerson FLAGYL 500 MG ORAL TABLET Take one tablet by mouth three times daily METRONIDAZOLE 97430393558 Jeet Rene MD TETRACYCLINE HCL 500 MG CAPS TETRACYCLINE HCL 90212657846 Vivek D HYDROMORPHONE HCL 2 MG TABS TAKE ONE TABLET BY MOUTH EVERY 4 HOURS NEEDED FOR moderate TO SEVERE pain MAY CAUSE DROWSINESS HYDROMORPHONE HCL 00541326223 Vivek D ONETOUCH ULTRA STRP USE 1 STRIP TO CHECK GLUCOSE THREE TIMES DAILY GLUCOSE BLOOD 28745181411 Vivek Thomson LACTINEX ORAL TABLET CHEWABLE one by mouth three times a day LACTOBACILLUS 23668771204 Jeet Rene MD FLAGYL 500 MG ORAL TABLET one by mouth three times a day x 2 weeks METRONIDAZOLE 25870793214 Jeet Rene MD LEVAQUIN 750 MG ORAL TABLET one by mouth daily x 2 weeks LEVOFLOXACIN 70905738191 Jeet Rene MD INVANZ (IJ) SOLUTION RECONSTITUTED 1 gm IV daily OPAT ERTAPENEM SODIUM SOLR 07294496122 Jeet Rene MD LANTUS 100 UNIT/ML SOLN INSULIN GLARGINE 37824758271 Aury Z DIFLUCAN TABLET FLUCONAZOLE TABS 98762823444 Aury Z INVANZ (IJ) SOLUTION RECONSTITUTED 1 gm IV daily OPAT ERTAPENEM SODIUM SOLR 79586584613 Peggy Sharma MD DIFLUCAN 200 MG TABS take one daily for yeast infection FLUCONAZOLE 20021882913 Peggy Sharma MD LORTAB 10-500 MG ORAL TABLET HYDROCODONE-ACET AMINOPHEN 67027902190 Peggy Sharma MD NORCO TABS HYDROCODONE-ACET AMINOPHEN TABS 23939596429 Peggy Sharma MD LYRICA CAPS PREGABALIN CAPS 48131543629 Jahaira Merlos CYMBALTA CPEP DULOXETINE HCL CPEP 75390681606 Jahaira G LASIX TABS FUROSEMIDE TABS 44968382675 Jahaira G NORCO TABS HYDROCODONE-ACET AMINOPHEN TABS 76397588678 Jahaira Merlos ATENOLOL TABS ATENOLOL TABS 59830024324 Jahaira Merlos GLYBURIDE TABS GLYBURIDE TABS 12840779998 Jahaira Merlos INVANZ (IJ) SOLUTION RECONSTITUTED ERTAPENEM SODIUM SOLR 81061127786 Jahaira Merlos DIFLUCAN TABLET FLUCONAZOLE TABS 24613895936 Jahaira Merlos Medications Administered No information available. [...] Documenta tion of current medications (procedure) DIET DOUBLE NEEDLE OPERATOR LOCKSTITCH yes Dietary management education, guidance, and counseling [...] CPT-wclc Weekly Central Line Care 202 11/21/06 CPT-05539 CMP [id number] CBC with Differential 2020 CPT-55512 C- reactive protein CPT-44284 Sedimentation Rate (ESR) 202 11/21/06 CPT-ca Continue IV antibiotics 2020 CPT-Cooral Continue oral antibiotics 20 05/04/24 CPT-cwl Weekly Labs (Continue) 04/08 CPT-wclc Weekly Central Line Care 202 11/20/23 CPT-76693 CMP CPT-84015 CBC w/o Differential [id number], [id number] CPK CPT-40769 Sedimentation Rate (ESR) 202 11/20/23 CPT-99670 C- reactive protein CPT-20051 CMP CPT-53257 C- reactive protein CPT-84502 Sedimentation Rate (ESR) 202 11/20/09 CPT-ca Continue IV antibiotics 2020 CPT-wpc Weekly PICC Line Care 03/18 CPT-cwl Weekly Labs (Continue) 03/18 CPT-98654 CMP CPT-20642 CBC w/o Differential [id number], [id number] CPK CPT-37991 Sedimentation Rate (ESR) 11/20/02 CPT-ca Continue IV antibiotics 2020 CPT-wpc Weekly PICC Line Care 03/11 CPT-cwl Weekly Labs (Continue) 03/11 CPT-95595 CMP CPT-13109 CBC w/o Differential M460633, [id number] CPK CPT-94862 Sedimentation Rate (ESR) 202 11/19/25 CPT-kayli New IV antibiotic CPT-cwl Weekly Labs (Continue) 03/04 CPT-wclc Weekly Central Line Care 202 11/19/18 CPT-15809 CMP CPT-22319 CBC w/o Differential 19 CPT-95117 C- reactive protein CPT-38296 Sedimentation Rate (ESR) 202 11/19/18 CPT-sl STAT Labs CPT-DC Discontinue IV antibiotics 2 CPT-47402 BMP CPT-98229 CBC w/o Differential CPT-kayli New IV antibiotic CPT-J1335 Ertapenem CPT-58768 CMP CPT-90121 CBC with Differential 12/03 CPT-cdpcr C-Diff PCR [...]
--- OUTSIDE RECORDS SUMMARY | 2025-05-04 15:09 | XMS_ITS | Encounter Summary ---
Author Organization [employer] Address [address] [place] [address] Care Team Providers Care Bonderite Operator Name Role Phone Unavailable Primary Care Provider Unavailabl e Encounter Details Date Type Department Care Team (Late st Contact Info) Description 07/10/2021 Transcribed Document [facility] [place] Family Medicine [address] [place] [address] ProviderEvangelista MD [address] [place] [address] Social History Tobacco Use Types [...] Source : Measured Height Entry Format : [place] Height, Feet : 5 ft(Converted to: 152 cm, 60 Inch) Height, Inches : 6.5 Inch(Converted to: 0 ft 7 Inch, 16.51 cm) Clinical Height : 168.91 cm Weight Source : Standing scale Weight Entry Format : [place] Clinical Dosing Weight : 127.73 kg Weight, Pounds : 281 lb Body Surface Area (BSA) : 2.33 m2 Body Mass Index : 44.8 kg/m2 (>HHI) [place] Body Weight : 60 kg CHELSY SUÁREZ - 07/11/2021 8:28 EDT Health Histories Smoking Status : Former smoker, quit more than 30 days ago Smokeless Tobacco Status : Never Implant/Device Type, Sweatband Decorating Machine Operator and Model : spinal cord stimulator Dalton [...] Where was the COVID-19 Testing completed? : [facility] in [place], [place] Date of COVID-19 test known? : [...] : Yes Spiritual/Cultural Needs Comment : 07/11 Mormon Preference : Jain ([employer]) Spiritual/Cultural Needs Comment : 07/11 Dalton Lang Rn - 07/10/2021 16:16 EDT [place] Suicide Severity Rating Scale (C-SSRS) CSSRS Past [...] Mother Legal Guardian : No Support Person/Patient Sort Worker : Yes Support Person/Pt Rep Name : Nelida Freire mother Support Person/Pt Rep Contact Information : [phone] Want Family/Rep/Phys Notified of Admit : No Emergency Contact #1 : ` Emergency Contact #1 Phone Number : ` Emergency Contact #1 Relationship : ` Emergency Contact #2 : ` Emergency Contact #2 Phone Number : ` Emergency Contact #2 Relationship : ` Information Obtained From : Patient Primary Language : Senegalese Preferred Communication Mode : Verbal Communication Barrier : None Cardroom Hand Needed : No Dalton Lang Rn - [...]
--- OUTSIDE RECORDS SUMMARY | 2025-05-04 15:09 | XMS_ITS | Encounter Summary ---
Author Organization [employer] Address [address] [place] [address] Care Team Providers Care Safety And Health Manager Name Role Phone Unavailable Primary Care Provider Unavailabl e Encounter Details Date Type Department Care Team (Late st Contact Info) Description 07/11/2021 Transcribed Document [facility] [address] [place] [address] Dennis Greco MD [address] [facility] [place] [id number] Social History Tobacco Use Types Packs/Day Years [...] 1970 Associated Diagnoses: None Author: BEE BRYANT, CLIP LOADING MACHINE FEEDER Chief Complaint spenser feet wounds Review of [...] list: All Problems 6-Stented coronary artery / [facility] 6706931690 / Confirmed Spinal cord stimulator status rt hip pt turned off this am / SNOMED CT 433139508 / Confirmed Peripheral vascular disease / SNOMED CT 0927076306 / Confirmed Myocardial infarction / SNOMED CT 29501272 / Confirmed Hypertension / SNOMED CT 90165650 / Confirmed History of obstructive sleep apnea / IMO 54202896 / Confirmed Fibromyalgia / SNOMED CT 61562115 / Confirmed DM - Diabetes mellitus / SNOMED CT 575554513 / Confirmed Diabetic neuropathy / SNOMED CT 726557583 / Confirmed Coronary artery disease / SNOMED CT 7723793697 / Confirmed Chronic back pain / SNOMED CT 131519782 / Confirmed Cellulitis of foot, left / SNOMED CT 690868687 / Confirmed Angina / SNOMED CT 786721023 / Confirmed -2020 Non-ST elevation [place] (NSTEMI) x 2 / SNOMED CT 2804186716 / Confirmed Unsteady gait-uses cane / SNOMED CT 69406223 / Confirmed, Active Problems (15) Non-ST elevation [place] (NSTEMI) x 2 6-Stented [...] been selected or recorded. Procedure history: Hysterectomy (003194794). right foot pinning. lap with laser x3. rt knee scope x2. left knee scope. right hand CMC x4. left hand CMC x1. all toes amputated from left foot. left shoulder scope. right shoulder scope. Cholecystectomy (26237668). Appendectomy (707714058). spinal cord stimulator. Physical Examination VS/Measurements No qualifying data available, Measurements from flowsheet : Measurements 07/10/2021 16:16 EDT Height Source Measured Height Entry Format [place] Height/Length, [place] (ft) 5 ft Height/Length [place] 6.5 Inch CLINICALHEIGHT 168.91 cm [place] Body Weight 60 kg Weight Source Standing scale Weight Entry Format [place] Weight [place] lb 281 lb CLINICALWEIGHT 127.73 kg Body [...]
--- OUTSIDE RECORDS SUMMARY | 2025-05-04 15:09 | XMS_ITS | Encounter Summary ---
Author Organization [employer] Address [address] [place] [address] Care Team Providers Care Director Independent Name Role Phone Unavailable Primary Care Provider Unavailabl e Encounter Details Date Type Department Care Team (Late st Contact Info) Description 07/11/2021 Transcribed Document [facility] [place] Medicine [facility] [place] [address] ProviderEvangelista MD [address] [place] [address] Social History Tobacco Use Types [...] Evangelista ProviderMD - 07/11/2021 11:07 AM CDT [facility] Main OR PostOp Summary Primary Physician: MANI THOMAS MD-SUR Finalized Date/Time: 07/11/21 17:49:06 Pt. Name: BEE COLON/Sex: 1970 Female Med Rec #: [id number] Physician: MANI THOMAS MD-SUR Financial #: [id number] Pt. Type: O Room/Bed: Admit/Disch: 07/11/21 08:06:00 - Institution: [facility] Main OR PostOp Case Times Entry [...]
--- OUTSIDE RECORDS SUMMARY | 2025-05-04 15:09 | XMS_ITS | Clinical Summary ---
Author Organization [employer] Address [address] [place] [address] Care Team Providers Care Sandwich Counter Attendant Name Role Phone Unavailable Primary Care [...]
--- OUTSIDE RECORDS SUMMARY | 2025-05-04 15:09 | XMS_ITS | Encounter Summary ---
Author Organization [employer] iatives Address [address] [place] [address] Care Team Providers Care C++ Professor Name Role Phone Unavailable Primary Care Provider Unavailabl e Encounter Details Date Type Department Care Team (Late st Contact Info) Description 07/11/2021 Transcribed Document [facility] [place] [facility] [place] [address] ProviderEvangelista MD [address] [place] [address] Social History Tobacco Use Types [...] these instructions at home: Medicines ??? Take hvww-isf-okrgman and prescription medicines only as told by [...] and water are not available, use hand lens assorter. ? Change your dressing as told by [...] provider. Document Revised: 10/25/2019 Document Reviewed: 10/25/2019 [employer]Videosongs Patient Education ? 2020 [employer] Inc. Obstetrics and Gynecology Monitored Anesthesia Care, Care [...] eating solid foods. General instructions ??? Take otzl-wqc-ztuveat and prescription medicines only as told by [...] provider. Document Revised: 01/31/2019 Document Reviewed: 02/22/2017 ElseNTE Energy Patient Education ? 2020 [employer]ongs Inc. documented in this encounter Plan of Treatment Not on file documented as of this encounter Visit Diagnoses Not on filedocumented in this encounter
--- OUTSIDE RECORDS SUMMARY | 2025-05-04 15:09 | XMS_ITS | Encounter Summary ---
Author Organization [employer] Address [address] [place] [address] Care Team Providers Care Defence Intelligence Analyst Name Role Phone Unavailable Primary Care Provider Unavailabl e Encounter Details Date Type Department Care Team (Late st Contact Info) Description 07/11/2021 Transcribed Document [facility] [place] Family Medicine [facility] [place] [address] ProviderEvangelista MD [address] [place] [address] Social History Tobacco Use Types [...] BEE COLON/Sex: 1970 Female Med Rec #: [id number] Physician: MANI THOMAS MD-SUR Financial #: [id number] Pt. Type: O Room/Bed: Admit/Disch: 07/11/21 08:06:00 - 07/11/21 12:25:00 Institution: [facility] IntraOp Case Attendance Entry 1 Entry 2 Entry 3 Case Attendee MANI THOMAS MD-SUR BOWEN, JON B, MD-Purvi Quick CRNA Role Performed Surgeon/Proceduralist, Anesthesiologist of ONCOLOGY ACCOUNT SPECIALIST/Nurse Senior Caregiver First Record Time In 07/11/21 10:47:00 07/11/21 10:47:00 07/11/21 10:47:00 Time Out 07/11/21 11:25:00 07/11/21 11:25:00 07/11/21 11:25:00 Procedure Wound Debridement Lower Wound Debridement Lower Wound Debridement Lower Extremity Extremity Extremity Other Attendee FRUIT OR NUT PICKER Superficial Wound Closed By: Last Modified By: Zee Delgadillo RN Napier, Elizabeth A, Zee Gtz RN 07/11/21 11:30:29 07/11/21 11:30:29 07/11/21 11:30:29 Entry 4 Entry 5 Entry 6 Case Attendee ELAINE BRUCE ST Zhurko, Timofey, Zee Betancourt RN Tech Role Performed Scrub, First Scrub, First Shared Services And Outsourcing Manager, First Time In 07/11/21 10:47:00 07/11/21 10:47:00 [...] JOHNSON, RN Sherwin Gage, RN Role Performed Shared Services And Outsourcing Manager, Second Shared Services And Outsourcing Manager, Third Time In 07/11/21 10:47:00 07/11/21 10:47:00 Time Out 07/11/21 11:25:00 07/11/21 11:25:00 Procedure Wound Debridement Lower Wound Debridement Lower Extremity Extremity Other Attendee ORIENTATION Superficial Wound Closed By: Last Modified By: Zee Delgadillo RN Napier, Elizabeth A, RN 07/11/21 11:30:29 07/11/21 11:30:29 [facility] IntraOp Case Attendance Audit 07/11/21 11:30:29 Heating Operators Engineer: [email or web address] Modifier: EANAPIER 1 <+> Time Out [...] Procedure Wound Debridement Lower Extremity 07/11/21 11:08:19 Heating Operators Engineer: JAIRO Modifier: EANAPIER <+> 6 Case Attendee <+> 6 Role Performed <+> 6 Procedure <+> 7 Case Attendee <+> 7 Role Performed <+> 7 Procedure <+> 8 Case Attendee <+> 8 Role Performed <+> 8 Procedure <+> 8 Other Attendee 07/11/21 10:51:13 Heating Operators Engineer: JAIRO Modifier: EANAPIER 5 <+> Case Attendee 5 <*> Procedure Wound Debridement Lower Extremity 07/11/21 10:49:29 Heating Operators Engineer: KURT Modifier: EANAPIER 1 <+> Time In [...] CENTER IntraOp Case Times Audit 07/11/21 11:30:15 Heating Operators Engineer: EANAPIER Modifier: EANAPIER <+> 1 Out Room Time <+> 1 Stop Time 07/11/21 11:18:34 Heating Operators Engineer: EANAPIER Modifier: EANAPIER <+> 1 Stop Time 07/11/21 11:06:32 Heating Operators Engineer: EANAPIER Modifier: EANAPIER <+> 1 Start Time [facility] IntraOp Cautery Entry 1 ESU Identification Cautery Type Monopolar ESU ID Number [id number] ID Type Hospital Number Cautery Settings Cut [...] CENTER IntraOp Counts Verification Audit 07/11/21 11:09:24 Heating Operators Engineer: EANAPIER Modifier: EANAPIER 1 <*> Procedure Wound [...] CENTER IntraOp Counts Final Audit 07/11/21 11:15:16 Heating Operators Engineer: EANAPIER Modifier: EANAPIER 1 <*> Procedure Wound [...] IntraOp Departure from OR Audit 07/11/21 11:30:27 Heating Operators Engineer: RESULTJO Modifier: BINAPIER <+> 1 Patient Transport [...] IntraOp Fire Risk Assessment Audit 07/11/21 11:09:14 Heating Operators Engineer: RESULTJO Modifier: EANAPIER <+> 1 Fire Risk Assessment Verified By <+> 1 Fire Risk Assessment Verified Date/Time [facility] IntraOp General Case Metal Sprayer Production 1 Case Information OR OR 06 MID [...] IntraOp General Case Data Audit 07/11/21 11:14:57 Heating Operators Engineer: EANAPIER Modifier: EANAPIER 1 <*> Specialty 1 <+> Preop Diagnosis 07/11/21 10:49:10 Heating Operators Engineer: KURT Modifier: EANAPIER <+> 1 ASA Class [facility] IntraOp Implant Log Entry 1 Type Implant (Synthetic) Implant Log Implant CYTAL WOUND MTRX 3 LYER Identification [id number] Description Implant Quantity 1 Implant [id number] Identification Serial Number Implant [id number] Identification Lot Number Implant [employer] Identification Canvas Worker Name: Implant [id number] Identification Catalog Number Implant Size 7 X [...] Entry 1 Medication/Irrigant Lidocaine .5% plain -- [id number] Dose Dose 1 Unit of Measure % [...] CENTER IntraOp Patient Positioning Audit 07/11/21 11:17:05 Heating Operators Engineer: KURT Modifier: LIONER 1 <*> Procedure 1 [...] CENTER IntraOp Sign Out Audit 07/11/21 11:30:40 Heating Operators Engineer: EANAPIER Modifier: EANAPIER <+> 1 RN Sign [...] CENTER IntraOp Surgical Procedures Audit 07/11/21 11:30:42 Heating Operators Engineer: EANAPIER Modifier: EANAPIER <+> 1 Stop 07/11/21 11:16:15 Heating Operators Engineer: KURT Modifier: EANAPIER <+> 1 Start MID [...]
--- OUTSIDE RECORDS SUMMARY | 2025-05-04 15:09 | XMS_ITS | Encounter Summary ---
Author Organization [employer] Address [address] [place] [address] Care Team Providers Care Swimming Pool Cleaner Name Role Phone Unavailable Primary Care Provider Unavailabl e Encounter Details Date Type Department Care Team (Late st Contact Info) Description 10/10/2020 Transcribed Document [facility] [place] [address] [place] [address] ProviderEvangelista MD [address] [place], [place] [id number] Social History Tobacco Use Types Packs/Day Years Used Date Smoking Tobacco: Never Assessed Comments Unknown Sex and Gender Information Value Date Recorded Sex Assigned at Not on file Legal Sex Female 3:10 PM CDT Gender Identity Not on file Sexual Orientation Not on file documented as of this encounter Miscellaneous Notes * Cerner Conversion Note - Evangelista Carbone MD - 10/10/2020 10:58 AM PROGRAM OFFICER Patient: BEE COLON Age: 50 Years Sex: [...] 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 CURRENT PLAN: Ms. Colon and I discussed different options with her medication and her spinal cord stimulator. We have decided to get smooth of [employer]ipp[employer] about reprogramming before we do anything with her medication. So, I have contacted them and asked if they could call her. I am going to continue her on her [place] 10 mg every 6 hours, Lyrica 200 [...]
--- OUTSIDE RECORDS SUMMARY | 2025-05-04 15:09 | XMS_ITS | Encounter Summary ---
Author Organization [employer] Address [address] [place] [address] Care Team Providers Care Backup Engineer Name Role Phone Unavailable Primary Care Provider Unavailabl e Encounter Details Date Type Department Care Team (Late st Contact Info) Description 07/11/2021 Transcribed Document [facility] [place] Family Medicine [address] [place] [address] ProviderEvangelista MD [address] [place] [address] Social History Tobacco Use Types [...] Evangelista ProviderMD - 07/11/2021 12:12 PM CDT [facility] [place] [address] BEE COLON :1970 Visit Time:07/11/2021 What to do next Your Diagnosis Non-pressure chronic ulcer of other part of right foot with unspecified severity Peripheral vascular disease, unspecified Unspecified atherosclerosis of [place] arteries of extremities, unspecified extremity, Unspecified atherosclerosis of [place] arteries of extremities, unspecified extremity Instructions From [...] 7-10 days Jul.23 at 11:15 am Where: [facility] [address] [place] [phone] Medications What How Much When Instructions Next [...] eating solid foods. General instructions ??? Take jyeo-ast-tgrfspt and prescription medicines only as told by [...] provider. Document Revised: 01/31/2019 Document Reviewed: 02/22/2017 [employer] Patient Education ?? 2020 Amigo[employer]. Surgical Wound Debridement, Care After This sheet [...] these instructions at home: Medicines ??? Take lrnl-yoc-lpwljot and prescription medicines only as told by [...] and water are not available, use hand upholstery tech. ? Change your dressing as told by [...] Reviewed: 10/25/2019 Elsevier Patient Education ?? 2019 Rain[employer] Systems Inc. Emergency Awareness and Preventative Care STROKE [...] Assistance with quitting is available by contacting 0-760-SFWWNOW. This is a free resource providing counseling, support, and referral. Or you may contact your personal physician. M2TECH Suicide Prevention Lifeline: The National Suicide Prevention [...] range between ( 0.0 and 7.0 ) [place] #: 0.83 K/uL -- Normal range between ( 0.16 and 1.00 ) Eos #: 0.28 x10(3)/uL -- Normal range between ( 0.00 and 0.80 ) [place] %: 9.0 % -- Normal range between [...] was given the opportunity to ask questions. Patient/Hand Hardener Name: Patient/Hand Hardener Signature: Relationship to Patient: Clinician/Hospital Hand Hardener Signature: Date: Electronically signed by Atul, [facility] Conversion Cattle Sprayer Cerner at 03/05/2023 7:13 PM CDT documented in this encounter Plan of Treatment Not on file documented as of this encounter Visit Diagnoses Not on filedocumented in this encounter
--- OUTSIDE RECORDS SUMMARY | 2025-05-04 15:10 | XMS_ITS | Encounter Summary ---
Author Organization [employer] Address [address] [place] [address] Care Team Providers Care County Nurse Name Role Phone Unavailable Primary Care Provider Unavailabl e Encounter Details Date Type Department Care Team (Late st Contact Info) Description 05/12/2022 Transcribed Document [facility] [place] [facility] [place] [address] ProviderEvangelista MD [address] [place] [address] Social History Tobacco Use Types [...] Source : Measured Height Entry Format : [place] Height, Feet : 0 ft(Converted to: 0 cm, 0 Inch) Height, Inches : 66.5 Inch(Converted to: 5 ft 6 Inch, 168.91 cm) Clinical Height : 168.91 cm Weight Source : Standing scale Weight Entry Format : [place] Clinical Dosing Weight : 131.82 kg Weight, Pounds : 290 lb Body Surface Area (BSA) : 2.36 m2 Body Mass Index : 46.2 kg/m2 (>HHI) [place] Body Weight : 60 kg ELY ARAYA RN - 05/13/2022 10:42 EDT Health Histories Smoking Status : Former smoker, quit more than 30 days ago Smokeless Tobacco Status : Never DEMETRICE WANG RN - 05/12/2022 8:44 EDT Implant/Device Type, Electrical Machine Builder and Model : spinal cord stimulator; cardiac [...] DEMETRICE WANG RN - 05/12/2022 8:28 EDT [place] Suicide Severity Rating Scale (C-SSRS) CSSRS Past Month Wish to be : No CSSRS Past Month Suicidal Thoughts : No CSSRS Lifetime Suicide Behavior : No Suicide Severity Rating Score : 0 Suicide Severity Rating : No Additional Care Required at this time EDMETRICE WANG RN - 05/12/2022 8:28 EDT Psychosocial [...] Bee Legal Guardian : No Support Person/Patient Counselor Supervisor : Yes Support Person/Pt Rep Name : Nelida Colon - mother Support Person/Pt Rep Contact Information : [phone] Want Family/Rep/Phys Notified of Admit : No [...] Obtained From : Patient Primary Language : Icelandic Preferred Communication Mode : Verbal Communication Barrier : None Quality Control Associate Needed : No DEMETRICE WANG RN - [...]
--- OUTSIDE RECORDS SUMMARY | 2025-05-04 15:10 | XMS_ITS | Encounter Summary ---
Author Organization [employer] Address [address] [place] [address] Care Team Providers Care Claim Professional Name Role Phone Unavailable Primary Care Provider Unavailabl e Encounter Details Date Type Department Care Team (Late st Contact Info) Description 03/20/2022 Transcribed Document [facility] [place] [facility] [place] [address] ProviderEvangelista MD [address] [place] [address] Social History Tobacco Use [...] Evangelista ProviderMD - 03/20/2022 10:22 AM CDT [facility] [place] [address] BEE COLON :1970 Visit Time:03/20/2022 What [...] When 03/24/2022 02:00 PM EDT Where: [address] [place] [address]- Medications What How Much When Instructions Next [...] and water are not available, use hand lithographic printing machinist. ? Change your dressing as told by [...] fried or sweet foods. ? Take an abux-qqj-xcwxjyz or prescription medicine for constipation. ??? Do not use any products that contain nicotine or tobacco, such as cigarettes and e-cigarettes. These can delay bone healing after surgery. If you need help quitting, ask your health care provider. ??? Take wtzi-uhv-xxxwajg and prescription medicines only as told by [...] provider. Document Revised: 12/29/2019 Document Reviewed: 11/25/2018 [employer]se [employer] Patient Education ?? 2020 Union [employer]ech. Outpatient Surgery, Adult, Care After This sheet [...] children on your own. Medicines ??? Take vibt-fvp-hkgonlo and prescription medicines only as told by [...] keep your urine pale yellow. ? Take frkf-afm-srjaawn or prescription medicines. ? Eat foods that [...] added (diluted fruit juice). ? Eat bland, vgxf-wm-nqrnth foods in small amounts as you are [...] and water are not available, use hand lithographic printing machinist. ? Change your dressing as told by [...] drink clear fluids slowly and eat bland, rbag-fg-hdrkam foods in small amounts. ??? Ask your health care provider what activities are safe for you. This information is not intended to replace advice given to you by your health care provider. Make sure you discuss any questions you have with your health care provider. Document Revised: 03/01/2021 Document Reviewed: 08/23/2020 ElseDalia Research Patient Education ?? 2020 Union [employer]. Emergency Awareness and Preventative Care STROKE is [...] Assistance with quitting is available by contacting 6-282-EKMQ-NOW. This is a free resource providing counseling, [...] range between ( 0.0 and 7.0 ) [place] #: 1.05 K/uL -- Normal range between ( 0.16 and 1.00 ) Eos #: 0.30 x10(3)/uL -- Normal range between ( 0.00 and 0.80 ) [place] %: 8.5 % -- Normal range between [...] was given the opportunity to ask questions. Patient/Environmental Remediation Engineer Name: Patient/Environmental Remediation Engineer Signature: Relationship to Patient: Clinician/Hospital Environmental Remediation Engineer Signature: Date: documented in this encounter Plan of Treatment Not on file documented as of this encounter Visit Diagnoses Not on filedocumented in this encounter
--- OUTSIDE RECORDS SUMMARY | 2025-05-04 15:10 | XMS_ITS | Encounter Summary ---
Author Organization [employer] Address [address] [place] [address] Care Team Providers Care Registered Midwife Name Role Phone Unavailable Primary Care Provider Unavailabl e Encounter Details Date Type Department Care Team (Late st Contact Info) Description 03/17/2022 Transcribed Document [facility] Family Medicine [facility] [place] [address] ProviderEvangelista MD [address] [place] [address] Social History Tobacco Use Types [...] Source : Measured Height Entry Format : [place] Height, Feet : 5 ft(Converted to: 152 cm, 60 Inch) Height, Inches : 6.5 Inch(Converted to: 0 ft 7 Inch, 16.51 cm) Clinical Height : 168.91 cm Weight Source : Standing scale Weight Entry Format : [place] Clinical Dosing Weight : 131.82 kg Weight, Pounds : 290 lb Body Surface Area (BSA) : 2.36 m2 Body Mass Index : 46.2 kg/m2 (>HHI) [place] Body Weight : 60 kg Ale Gresham RN-PATIENT CARE BEDSIDE NON-EXEMPT - 03/19/2022 12:07 EDT Health Histories Smoking Status : Former smoker, quit more than 30 days ago Smokeless Tobacco Status : Never Implant/Device Type, Chicken Dresser and Model : spinal cord stimulator; cardiac [...] and When was COVID19 testing completed? : [facility] 03/18/22 Does the Patient state known [...] DEMETRICE WANG RN - 03/17/2022 8:40 EDT [place] Suicide Severity Rating Scale (C-SSRS) CSSRS Past [...] Bee Legal Guardian : No Support Person/Patient Diesel Fleet Mechanic : Yes Support Person/Pt Rep Name : Nelida Colon - mother Support Person/Pt Rep Contact Information : [phone] Want Family/Rep/Phys Notified of Admit : No [...] Obtained From : Patient Primary Language : Ethiopian Preferred Communication Mode : Verbal Communication Barrier : None Inspector Balance Wheel Motion Needed : No DEMETRICE WANG RN - [...]
--- OUTSIDE RECORDS SUMMARY | 2025-05-04 15:10 | XMS_ITS | Encounter Summary ---
Author Organization [employer] Address [address] [place] [address] Care Team Providers Care Cook Manager Name Role Phone Unavailable Primary Care Provider Unavailabl e Encounter Details Date Type Department Care Team (Late st Contact Info) Description 03/20/2022 Transcribed Document [facility] [place] [address] [place] [address] ProviderEvangelista MD [address] [place] [address] Social History Tobacco Use Types [...] Evangelista ProviderMD - 03/20/2022 9:01 AM CDT [facility] Main OR Preop Summary Primary Physician: ANGELA GREEN DPM-POD Finalized Date/Time: 03/20/22 11:59:52 Pt. Name: BEE COLON/Sex: 1970 Female Med Rec #: [id number] Physician: ANGELA GREEN DPM-POD Financial #: [id number] Pt. Type: O Room/Bed: /6 Admit/Disch: 03/20/22 06:30:00 - 03/20/22 10:56:00 Institution: [facility] PreOp Case Times Entry 1 In Preop 03/20/22 06:25:00 Ready for Holding n/a Room Patient Ready for 03/20/22 07:40:00 Surgery Patient Out of Preop 03/20/22 08:44:00 Patient Out of n/a Holding Room Last Modified By: Nik Stewart RN-PATIENT CARE BEDSIDE NON-EXEMPT 03/20/22 11:59:49 [facility] PreOp Case Times Audit 03/20/22 11:59:49 Market Manager: [id number] Modifier: [id number] <+> 1 Patient Out of Preop 03/20/22 08:03:25 Market Manager: [id number] Modifier: [id number] <*> Patient Ready for Surgery 03/20/22 08:03:00 03/20/22 08:03:19 Market Manager: [id number] Modifier: [id number] <+> 1 Patient Ready for Surgery Finalized By: Nik Stewart RN-PATIENT CARE BEDSIDE NON-EXEMPT Document Signatures Signed By: Nik Stewart RN-PATIENT CARE BEDSIDE NON-EXEMPT 03/20/22 11:59 Electronically signed by Atul [facility] Conversion Veterans Service Representative Cerner at 03/05/2023 6:50 PM CDT documented in this encounter Plan of Treatment Not on file documented as of this encounter Visit Diagnoses Not on filedocumented in this encounter
--- OUTSIDE RECORDS SUMMARY | 2025-05-04 15:10 | XMS_ITS | Encounter Summary ---
Author Organization [employer] Address [address] [place] [address] Care Team Providers Care Skylights Assembler Name Role Phone Unavailable Primary Care Provider Unavailabl e Encounter Details Date Type Department Care Team (Late st Contact Info) Description 03/20/[address] [facility] [place] Medicine [facility] [place] [address] ProviderEvangelista MD [address] [place] [address] Social History Tobacco Use Types [...] Evangelista ProviderMD - 03/20/2022 9:01 AM CDT [facility] Main OR IntraOp Summary Primary Physician: ANGELA GREEN DPM-POD Finalized Date/Time: 03/21/22 10:42:50 Pt. Name: BEE COLON/Sex: 1970 Female Med Rec #: [id number] Physician: ANGELA GREEN DPM-POD Financial #: [id number] Pt. Type: O Room/Bed: /6 Admit/Disch: 03/20/22 06:30:00 - 03/20/22 10:56:00 Institution: [facility] IntraOp Case Attendance Entry 1 Entry 2 Entry 3 Case Attendee ANGELA GREEN DPM-POD DODD, ANDREW, Non Emp Abilio, Rakan, ENDORSEMENT CLERK Student Nurse Special Education Instructor Role Performed Surgeon/Proceduralist, Student ENDORSEMENT CLERK/Nurse Special Education Instructor First Time In 03/20/22 08:45:00 03/20/22 08:45:00 [...] GRETA Role Performed Anesthesiologist of Scrub, First Electrical And Radio Mechanic, First Record Time In 03/20/22 08:45:00 03/20/22 [...] Entry 8 Case Attendee OTHER, ATTENDEE #1 zIa Smiley, GRETA Role Performed Scrub, First Scrub, First Time In 03/20/22 08:45:00 03/20/22 09:48:00 Time Out 03/20/22 09:54:00 03/20/22 09:54:00 Procedure Hardware Removal Leg Or Hardware Removal Leg Or Foot Foot Other Attendee ANGELA CHERELLE Superficial Wound Closed By: Last Modified By: Milly Powers RN Versteeg, Beckie, RN 03/20/22 09:54:47 03/20/22 09:54:47 [facility] IntraOp Case Attendance Audit 03/20/22 09:54:47 Product Marketing Engineer: [id number] Modifier: [id number] 1 <+> Time Out 1 <*> Procedure [...] Time Out <+> 8 Procedure 03/20/22 09:14:11 Product Marketing Engineer: [id number] Modifier: [id number] <+> 1 Procedure 2 <+> Time In [...] <*> Procedure Hardware Removal Leg Or Foot [facility] IntraOp Case Times Entry 1 Patient In Room Time 03/20/22 08:45:00 Out Room Time 03/20/22 09:54:00 Anesthesia Start Time 03/20/22 08:45:00 Stop Time 03/20/22 09:54:00 Surgery / Procedure Times Start Time 03/20/22 09:01:00 Stop Time 03/20/22 09:50:00 Last Modified By: Milly Powers RN 03/20/22 09:54:23 [facility] IntraOp Case Times Audit 03/20/22 09:54:23 Product Marketing Engineer: [id number] Modifier: [id number] <+> 1 Out Room Time <+> 1 Stop Time <+> 1 Stop Time [facility] IntraOp Cautery Entry 1 ESU Identification Cautery Type Monopolar ESU ID Number [id number] ID Type Hospital Number Cautery Settings Cut Setting 30 Coag Setting 30 ESU Grounding Pad Ground Pad Type Adult Grounding Pad Site Right thigh Grounding Pad Milly Powers RN Applied By Grounding Pad Site Warm, dry and intact Skin Condition Before Cautery Grounding Pad Site Unchanged Skin Condition After Cautery Last Modified By: Milly Powers RN 03/20/22 09:05:57 [facility] IntraOp Communication Entry 1 Communication To Family/Significant other Comment ATTAMPTED NO ANSWER Communication By Milly Powers RN Date and Time 03/20/22 09:06:00 Last Modified By: Milly Powers RN 03/20/22 09:07:11 [facility] IntraOp Counts Verification Entry 1 Procedure Hardware Removal Leg Or Foot Count Info Count Type Sponge, Sharps Counts Verification Baseline/pre-procedure Sequence Count Results Not Applicable Counts Performed By Count Performed By ZHANNA LU ST (Scrub) Count Performed By Milly Powers RN (RN) Last Modified By: Milly Powers RN 03/20/22 09:07:31 [facility] IntraOp Counts Final Entry 1 Procedure Hardware Removal Leg Or Foot Final Count Info Count Type Sponge, Sharps Counts Verification Skin Closure/end of Sequence procedure Count Results Correct, surgeon notified Counts Performed By Count Performed By ZHANNA LU ST (Scrub) Count Performed By Milly Powers RN (RN) Last Modified By: Milly Powers RN 03/20/22 09:36:01 [facility] IntraOp Counts Final Audit 03/20/22 09:36:01 Product Marketing Engineer: [id number] Modifier: [id number] 1 <*> Procedure Hardware Removal Leg Or Foot 1 <+> Count Performed By (Scrub) 1 <+> Count Performed By (RN) [facility] IntraOp Cultures and Spec Summary Entry 1 Cultrures and Specimens Specimen Ordered: Yes Test(s) Routine/Path-Lab Requested/Final Disposition Last Modified By: Milly Powers RN 03/20/22 09:07:47 [facility] IntraOp Departure from OR Entry 1 Integumentary Assessment Integumentary WDL Assessment WDL Transfer/Handoff Transfer to Ambulatory unit, Phase II Handoff Method Phone call, Online nursing summary Post-op Transport Stretcher/Nanyney Via Patient Transport Iza Smiley RN Accompanied by Last Modified By: Milly Powers RN 03/20/22 09:55:30 [facility] IntraOp Departure from OR Audit 03/20/22 09:55:30 Product Marketing Engineer: [id number] Modifier: [id number] <+> 1 Transfer to 03/20/22 09:54:59 Product Marketing Engineer: [id number] Modifier: [id number] 1 <*> Patient Transport Accompanied by Milly Powres RN [facility] IntraOp Dressing and Packing Entry 1 Type Dressing Location OPSITE Wound Dressing Item 4x4's, Adaptic, Kerlix/Feng, Cristian, ABD dressing pad Applied By ANGELA GREEN DPM-POD Other Comments BETADINE SOLUTION ON STERILE FIELD Last Modified By: Milly Powers RN 03/20/22 09:08:34 [facility] IntraOp Explant Log Entry 1 Explant Log Description PLATE AND 8 SCREWS Explant Site RIGHT FOOT Removal Reason No longer needed Disposition Sent to pathology Last Modified By: Milly Powers RN 03/20/22 09:40:31 [facility] IntraOp Explant Log Audit 03/20/22 09:40:31 Product Marketing Engineer: [id number] Modifier: [id number] 1 <*> Description PLATE AND SCREWS 03/20/22 09:32:54 Product Marketing Engineer: [id number] Modifier: [id number] 1 <*> Description PLATE AND [facility] IntraOp Fire Risk Assessment Entry 1 [...] Modified By: Milly Powers RN 03/20/22 09:08:55 [facility] IntraOp General Case Developer Designer 1 Case Information OR OR 04 [facility] Case Level 1 Room Verified Yes Wound Class 1 - Clean Specialty Podiatry Anesthesia Type MAC ASA Class 3 Diagnosis Preop Diagnosis RETAINED HARDWARE RIGHT FOOT Postop Same As Preop No Postop Diagnosis SEE POST OP NOTE Wound Class Definitions Last Modified By: Milly Powers RN 03/20/22 09:11:08 [facility] IntraOp Implant Log Entry 1 Type Tissue Implant (Biologic) Implant Log Implant ALLOGRFT TENSIX 5CC DBM Identification [id number] Description Implant Quantity 1 Implant Site RIGHT FOOT Implant [id number] Identification Model Number Implant [id number] Identification Lot Number Implant [facility] Grp:Faustino Mark Med Tech Dye House Vat Worker Name: Implant [id number] Identification Catalog Number Implant Has an Yes Expiration Date Implant Expiration 07/16/23 Date Tissue Implant Graft Prep Per N/A Dye House Vat Worker Instructions: Last Modified By: Milly Powers RN 03/20/22 09:26:43 [facility] IntraOp Intraoperative Assessment Entry 1 Handoff [...] Modified By: Milly Powers RN 03/20/22 09:11:25 [facility] IntraOp Intraoperative Equipment Entry 1 Type Equipment Equipment Equipment Waste Management System ID Number [id number] Setting ON Intraop Monitoring Antiembolic Devices Scopes Photo/Video Documentation Last Modified By: Milly Powers RN 03/20/22 09:11:47 [facility] IntraOp Medication Admin Entry 1 Entry 2 Medication/Irrigant Bupivicaine/Marcaine 1% LIDOCAINE/2ML 0.5% 30ml - [id number] PRESERVATIVE FREE - [id number] Combo Med List 1 - Combo Med 2 - Combo Med Time Administered 03/20/22 09:01:00 03/20/22 09:01:00 Route of Administration Dose Dose 10 10 Unit of Measure ml ml Volume Administered By ANGELA GREEN DPM-POD ANGELA GREEN DPM-LOIS Procedure Irrigation Irrigant Volume In Irrigant Volume Out Last Modified By: Milly Powers RN Versteeg, Beckie, RN 03/20/22 09:13:36 03/20/22 09:13:36 [facility] IntraOp Patient Positioning Entry 1 Procedure [...] DPM-POD, ALLIE MENDES, Non Emp Student Nurse Special Education Instructor Position Verified Positioning Yes Verified by Anesthesia Positioning Yes Verified by Surgeon Last Modified By: Milly Powers RN 03/20/22 09:14:08 [facility] IntraOp Sign In Entry 1 Patient, [...] Modified By: Milly Powers RN 03/20/22 09:14:22 [facility] IntraOp Sign Out Entry 1 RN [...] Modified By: Milly Powers RN 03/20/22 09:55:07 [facility] IntraOp Sign Out Audit 03/20/22 09:55:07 Product Marketing Engineer: [id number] Modifier: [id number] <+> 1 RN Sign Out Signature Date/Time [facility] IntraOp Skin Prep Entry 1 Procedure Hardware Removal Leg Or Foot Prescribed Yes Pre-Surgical Prep Completed Prep Area RIGHT FOOT Intraop Prep Integumentary WDL Assessment WDL Prep Agents Betadine scrub, Betadine solution Prep by Milly Powers RN Hair Removal Last Modified By: Milly Powers RN 03/20/22 09:14:58 [facility] IntraOp Surgical Procedures Entry 1 Procedure Hardware Removal Leg Or Foot Additional REMOVAL OF HARDWARE ON Procedure RIGHT FOOT Description Primary Procedure Yes Primary Surgeon ANGELA GREEN DPM-POD Start 03/20/22 09:01:00 Stop 03/20/22 09:50:00 Anesthesia Type MAC Specialty Podiatry Wound Class 1 - Clean Last Modified By: Milly Powers RN 03/20/22 09:55:09 [facility] IntraOp Surgical Procedures Audit 03/20/22 09:55:09 Product Marketing Engineer: [id number] Modifier: [id number] <+> 1 Stop 03/20/22 09:15:18 Product Marketing Engineer: [id number] Modifier: [id number] 1 <*> Procedure Hardware Removal Leg Or Foot 1 <+> Wound Class 1 <*> Additional Procedure Description (REMOVAL OF HARDWARE ON RIGHT FOOT) [facility] IntraOP Time Out Entry 1 Procedure [...] Modified By: Milly Powers RN 03/20/22 09:18:23 [facility] IntraOP Time Out Audit 03/20/22 09:18:23 Product Marketing Engineer: [id number] Modifier: [id number] 1 <+> Venous Thromboembolism Prophylaxis Required 1 <*> Procedure to be Performed Hardware Removal Leg Or Foot 03/20/22 09:16:55 Product Marketing Engineer: [id number] Modifier: [id number] <+> 1 Beta Dmitriy Administered <+> 1 All activity suspended (unless life threatening emergency) <+> 1 Antibiotic Prophylaxis Administered Or In Progress Within the Last 60 Minutes <+> 1 Surgeon <+> 1 Anesthesia Provider <+> 1 Nursing Assures <+> 1 Time Out Pause Time <+> 1 Procedure to be Performed <+> 1 Team Verbally Confirms Information 03/20/22 09:16:22 Product Marketing Engineer: [id number] Modifier: [id number] Entry 1 was deleted. Higher numbered entries [...] Performed in location of procedure after prepped/draped [facility] IntraOp Tourniquet Entry 1 Type Pneumatic Serial/Unit Number [id number] Setting 250 mmHg Pheumatic Yes Tourniquet Checked Per Protocol Size 18 inches Placement Ankle, right Skin Protection - Yes Padded Under Cuff Applied By ANGELA GREEN DPM-POD Removed By ANGELA GREEN DPM-POD Times Start Time 03/20/22 09:01:00 Stop Time 03/20/22 09:48:00 Total Time 47 calculated manually (Mins) Last Modified By: Milly Powers RN 03/20/22 09:49:29 [facility] IntraOp Tourniquet Audit 03/20/22 09:49:29 Product Marketing Engineer: [id number] Modifier: [id number] <+> 1 Total Time calculated manually (Mins) <+> 1 Stop Time Case Comments <None> Finalized By: ROBINSON WARREN Document Signatures Signed By: Milly Powers RN 03/20/22 09:55 ROBINSON WARREN 03/21/22 10:42 Unfinalized History Date/Time Username Reason for Unfinalizing Freetext Reason for Unfinalizing 03/21/22 10:41 WATTSDR Correct Billing Electronically signed by Atul [facility] Conversion Food Handler Cerner at 03/05/2023 7:05 PM CDT documented in this encounter Plan of Treatment Not on file documented as of this encounter Visit Diagnoses Not on filedocumented in this encounter
--- OUTSIDE RECORDS SUMMARY | 2025-05-04 15:10 | XMS_ITS | Referral Summary ---
Author Organization [employer] Address [address] [place] [address] Care Team Providers Care Ginger Farmer Name Role Phone Unavailable Primary Care Provider [...]
--- OUTSIDE RECORDS SUMMARY | 2025-05-04 15:10 | XMS_ITS | Encounter Summary ---
Author Organization [employer] Address [address] [place] [address] Care Team Providers Care Factorer Name Role Phone Unavailable Primary Care Provider Unavailabl e Encounter Details Date Type Department Care Team (Late st Contact Info) Description 03/19/2022 Transcribed Document [facility] [place] Family Medicine [address] [place] [address] ProviderEvangelista MD [address] [place] [address] Social History Tobacco Use Types [...] Problems 6-Stented coronary artery / SNOMED CT 3675304673 / Confirmed Spinal cord stimulator status rt hip pt turned off this am / SNOMED CT 812997702 / Confirmed Peripheral vascular disease / SNOMED CT 1849975500 / Confirmed Hypertension / SNOMED CT 38010737 / Confirmed History of obstructive sleep apnea / IMO 60449404 / Confirmed Foot pain, right / SNOMED CT 682117491 / Confirmed Fibromyalgia / SNOMED CT 07313735 / Confirmed DM - wears Dexcom / SNOMED CT 637471876 / Confirmed Diabetic neuropathy / SNOMED CT 834468620 / Confirmed Coronary artery disease / SNOMED CT 4567912790 / Confirmed Chronic back pain / SNOMED CT 380425068 / Confirmed At risk for sleep apnea / IMO 84809587 / Confirmed Angina / SNOMED CT 671445973 / Confirmed Non-ST elevation LA (NSTEMI) x 2 / SNOMED CT 4145249796 / Confirmed Canceled: Myocardial infarction / SNOMED CT 12666918 Canceled: Cellulitis of foot, left / SNOMED CT 627770904 s/p left foot transmetatarsal amp Canceled: Unsteady gait-uses cane / SNOMED CT 37254713 , Active Problems (14) Non-ST elevation LA (NSTEMI) x 2 6-Stented coronary artery Angina [...] been selected or recorded. Procedure history: Hysterectomy (175114705). right foot pinning. lap with laser x3. rt knee scope x2. left knee scope. right hand CMC x4. left hand CMC x1. all toes amputated from left foot. left shoulder scope. right shoulder scope. Cholecystectomy (73042617). Appendectomy (236509814). spinal cord stimulator. Cardiac catheterization (76315471). Comments: 03/19/2022 12:20 EDT - Ale Gresham, [...]
--- OUTSIDE RECORDS SUMMARY | 2025-05-04 15:10 | XMS_ITS ---
Author Organization [facility] Support Name Relationship Address Phone Isaiah, Sissy Guarantor [address] [place], [place] [id number] Isaiah, Sissy Agent [address] [place] [address] Allergies and adverse reactions Code CodeSystem Substance Reaction Severity StartDate Concern Status 7804 RXNORM Oxycodone Skin reaction - finding (code- 591046529, SNOMED CT) Mild 04/15/2018 active Morphine and Related Nausea (code- 767489881, SNOMED CT) Mild 04/15/2018 active 2670 RXNORM Codeine Skin reaction - finding (code- 392485830, SNOMED CT) Mild 04/15/2018 active 723 RXNORM Amoxicillin Skin reaction - finding (code- 365618563, SNOMED CT) Mild 04/15/2018 active Immunizations Immunization Status Vaccine Details Vaccine Code CodeSystem Date Notes TB 1 Step Mantoux (PPD) completed tuberculin skin test; unspecified formulation lotNumber: [id number] expiry: 10/01/2020 Mfg: Tubersol Given 0.1 ml Right Forearm intradermally 98 CVX created date: 04/15/2018 consent date: 04/15/2018 administer ed date: 04/15/2018 resident left facility AMA on 04/15/18 Problems Problem # Description Date of onset Resolved Date Code CodeSystem Concern Status 1 CHARCOT'S JOINT, RIGHT ANKLE AND FOOT 04/15/[address] active 2 DERANGEMENT OF OTHER LATERAL MENISCUS DUE TO OLD TEAR OR INJURY, RIGHT KNEE 04/15/[address] active 3 ESSENTIAL (PRIMARY) HYPERTENSION 04/15/[address] active 4 OLD MYOCARDIAL INFARCTION 04/15/[address] active 5 OTHER OBESITY DUE TO EXCESS CALORIES 04/15/[address] active 6 PROLAPSE OF VAGINAL VAULT AFTER HYSTERECTOMY 04/15/[address] active 7 TYPE 2 DIABETES MELLITUS WITH FOOT ULCER 04/15/[address] active 8 VITAMIN D DEFICIENCY, UNSPECIFIED 04/15/[address] active Reason for Referral No Reasons for Referral Entered Social History Social History Observation Description Start Date End Date Code Code System Current Smoking Status Tobacco smoking consumption unknown 952255209 SNOMED CT Sex Assigned At Female 1970 48321-0 [facility] Gender Identity Vital Signs Code Code System Vitals Name Values and Units Timing Information 47385-9 [facility] Weight Dubjs=825.4 Units=Lbs 9279-1 [facility] Respiratory Rate Value=20.0 Units=/m in 04/15/2018 8462-4 [facility] Blood Pressure-Diastolic Value=70 Un its=mmHg 04/15/2018 8480-6 [facility] Blood Pressure-Systolic Vgchi=089 Un its=mmHg 04/15/2018 8310-5 [facility] Body Temperature Value=97.3 Units= F 04/15/2018 8867-4 [facility] Heart rate Value=98.0 Units=/min 8302-2 [facility] Height Value=66.0 Units=Inches 04/15/2018 38896-4 [facility] O2 % BldC Oximetry Value=96.0 Units= % 04/15/2018
--- OUTSIDE RECORDS SUMMARY | 2025-05-04 15:10 | XMS_ITS | Encounter Summary ---
Author Organization [employer] Address [address] [place] [address] Care Team Providers Care Remote Inpatient Coder Name Role Phone Unavailable Primary Care Provider Unavailabl e Encounter Details Date Type Department Care Team (Late st Contact Info) Description 03/20/2022 Transcribed Document [facility] [place] [facility] [place] [address] ProviderEvangelista MD [address] [place] [address] Social History Tobacco Use Types [...] Evangelista ProviderMD - 03/20/2022 10:11 AM CDT [facility] [place] [address] BEE COLON :1970 Visit Time:03/20/2022 What [...] When 03/24/2022 02:00 PM EDT Where: [address] [place] [address]- Medications What How Much When Instructions Next [...] and water are not available, use hand client director. ? Change your dressing as told by [...] fried or sweet foods. ? Take an coqe-srz-zbczwzs or prescription medicine for constipation. ??? Do not use any products that contain nicotine or tobacco, such as cigarettes and e-cigarettes. These can delay bone healing after surgery. If you need help quitting, ask your health care provider. ??? Take colw-qjb-yljincv and prescription medicines only as told by [...] provider. Document Revised: 12/29/2019 Document Reviewed: 11/25/2018 [employer] Patient Education ?? 2020 [employer]. Outpatient Surgery, Adult, Care After This sheet [...] children on your own. Medicines ??? Take hfgk-zzs-duhrywq and prescription medicines only as told by [...] keep your urine pale yellow. ? Take yeui-xny-binsfrs or prescription medicines. ? Eat foods that [...] added (diluted fruit juice). ? Eat bland, blrj-zb-gfxezs foods in small amounts as you are [...] and water are not available, use hand client director. ? Change your dressing as told by [...] drink clear fluids slowly and eat bland, fovk-wc-leffiy foods in small amounts. ??? Ask your health care provider what activities are safe for you. This information is not intended to replace advice given to you by your health care provider. Make sure you discuss any questions you have with your health care provider. Document Revised: 03/01/2021 Document Reviewed: 08/23/2020 [employer] Patient Education ?? 2020 [employer]. Emergency Awareness and Preventative Care STROKE is [...] Assistance with quitting is available by contacting 0-987-ETSN-NOW. This is a free resource providing counseling, [...] was given the opportunity to ask questions. Patient/Firebreak Cutter Name: Patient/Firebreak Cutter Signature: Relationship to Patient: Clinician/Hospital Firebreak Cutter Signature: Date: documented in this encounter Plan of Treatment Not on file documented as of this encounter Visit Diagnoses Not on filedocumented in this encounter
--- OUTSIDE RECORDS SUMMARY | 2025-05-04 15:10 | XMS_ITS | Encounter Summary ---
Author Organization [employer] Address [address] [place] [address] Care Team Providers Care Indian Blanket Weaver Name Role Phone Unavailable Primary Care Provider Unavailabl e Encounter Details Date Type Department Care Team (Late st Contact Info) Description 03/20/2022 Transcribed Document [facility] [place] [facility] [place] [address] ProviderEvangelista MD [address] [place] [address] Social History Tobacco Use Types [...]
--- OUTSIDE RECORDS SUMMARY | 2025-05-04 15:10 | XMS_ITS | Encounter Summary ---
Author Organization [employer] Address [address] [place] [address] Care Team Providers Care Data Communications Technician Name Role Phone Unavailable Primary Care Provider Unavailabl e Encounter Details Date Type Department Care Team (Late st Contact Info) Description 03/20/2022 Transcribed Document [facility] [place] Family Medicine [address] [place] [address] ProviderEvangelista MD [address] [place] [address] Social History Tobacco Use Types [...] Evangelista ProviderMD - 03/20/2022 9:01 AM CDT [facility] Main OR PostOp Summary Primary Physician: ANGELA GREEN DPM-POD Finalized Date/Time: 03/20/22 10:58:03 Pt. Name: BEE COLON/Sex: 1970 Female Med Rec #: [id number] Physician: ANGELA GREEN DPM-POD Financial #: [id number] Pt. Type: O Room/Bed: /6 Admit/Disch: 03/20/22 06:30:00 - Institution: [facility] Main OR PostOp Case Times Entry 1 In PACU II 03/20/22 09:56:00 Ready for PACU II 03/20/22 09:49:00 Discharge Discharge from PACU 03/20/22 10:56:00 II Last Modified By: Raji Matos RN-PATIENT CARE BEDSIDE NON-EXEMPT 03/20/22 10:58:00 [facility] Main OR PostOp Case Times Audit 03/20/22 10:58:00 Vehicle Cost Engineer: [id number] Modifier: [id number] <+> 1 Discharge from PACU II 03/20/22 10:57:51 Vehicle Cost Engineer: [id number] Modifier: [id number] <+> 1 Ready for PACU II Discharge Finalized By: Raji Matos, RN-PATIENT CARE BEDSIDE NON-EXEMPT Document Signatures Signed By: Raji Matos RN-PATIENT CARE BEDSIDE NON-EXEMPT 03/20/22 10:58 documented in this encounter Plan of Treatment Not on file documented as of this encounter Visit Diagnoses Not on filedocumented in this encounter
--- OUTSIDE RECORDS SUMMARY | 2025-05-04 15:10 | XMS_ITS | Encounter Summary ---
Author Organization [employer] Address [address] [place] [address] Care Team Providers Care Bible Teacher Name Role Phone Unavailable Primary Care Provider Unavailabl e Encounter Details Date Type Department Care Team (Late st Contact Info) Description 08/12/2019 Transcribed Document [facility] [place] [facility] [place] [address] ProviderEvangelista MD [address] [place] [address] Social History Tobacco Use Types [...]
--- OUTSIDE RECORDS SUMMARY | 2025-05-04 15:10 | XMS_ITS | Encounter Summary ---
Author Organization [employer] Address [address] [place] [address] Care Team Providers Care Multimedia Educational Specialist Name Role Phone Unavailable Primary Care Provider Unavailabl e Encounter Details Date Type Department Care Team (Late st Contact Info) Description 03/20/2022 Transcribed Document [facility] [place] [facility] [place] [address] ProviderEvangelista MD [address] [place] [address] Social History Tobacco Use Types [...] Patient : 1970 SURGEON: Sam Hamlin DPM MERCHANDISE CARRIER: None. PREOPERATIVE DIAGNOSES: 1. Painful retained internal [...] the office in the next 48-72 hours. /[id number] JESUS Cassidy/RILEY / / MODL /[id number] documented in this encounter Plan of Treatment Not on file documented as of this encounter Visit Diagnoses Not on filedocumented in this encounter
--- OUTSIDE RECORDS SUMMARY | 2025-05-04 15:10 | XMS_ITS | Encounter Summary ---
Author Organization [employer] Address [address] [place] [address] Care Team Providers Care Manager Client Support Name Role Phone Unavailable Primary Care Provider Unavailabl e Encounter Details Date Type Department Care Team (Late st Contact Info) Description 08/12/2019 Transcribed Document [facility] [place] [facility] [place] [address] ProviderEvangelista MD [address] [place] [address] Social History Tobacco Use Types [...] cord stimulator implantation with good coverage. 3. Oohgzjg-Pzkko-Ktyiq syndrome right foot. PROCEDURE/TEST ORDERED: Not present. PLAN: Will continue Ms. Colon on her current medication of Preston 10 mg. q.6 hours, Tramadol 50 mg. [...]
--- OUTSIDE RECORDS SUMMARY | 2025-05-04 15:10 | XMS_ITS | Encounter Summary ---
Author Organization [employer] Address [address] [place] [address] Care Team Providers Care Sugar Boiler Name Role Phone Unavailable Primary Care Provider Unavailabl e Encounter Details Date Type Department Care Team (Late st Contact Info) Description 03/20/2022 Transcribed Document [facility] [place] [facility] [place] [address] ProviderEvangelista MD [address] [place] [address] Social History Tobacco Use Types [...] and water are not available, use hand dye automation operator. ? Change your dressing as told [...] fried or sweet foods. ? Take an mszf-xgh-lrpbaep or prescription medicine for constipation. ??? Do not use any products that contain nicotine or tobacco, such as cigarettes and e-cigarettes. These can delay bone healing after surgery. If you need help quitting, ask your health care provider. ??? Take gxqe-dmy-mgdjyfq and prescription medicines only as told by [...] provider. Document Revised: 12/29/2019 Document Reviewed: 11/25/2018 [employer] Patient Education ? 2020 [employer]. Procedures Outpatient Surgery, Adult, Care After This [...] children on your own. Medicines ??? Take euqm-pni-smaknlo and prescription medicines only as told by [...] keep your urine pale yellow. ? Take hwwv-qlx-rjanzep or prescription medicines. ? Eat foods that [...] added (diluted fruit juice). ? Eat bland, tbkc-gw-vcwnqx foods in small amounts as you are [...] and water are not available, use hand dye automation operator. ? Change your dressing as told [...] drink clear fluids slowly and eat bland, qlom-kc-schtmy foods in small amounts. ??? Ask your health care provider what activities are safe for you. This information is not intended to replace advice given to you by your health care provider. Make sure you discuss any questions you have with your health care provider. Document Revised: 03/01/2021 Document Reviewed: 08/23/2020 [employer] Patient Education ? 2020 [employer]. Electronically signed by Dave Pollard Conversion Telephone Order Clerk Room Service Cerner at 03/05/2023 7:12 PM CDT documented in this encounter Plan of Treatment Not on file documented as of this encounter Visit Diagnoses Not on filedocumented in this encounter
--- OUTSIDE RECORDS SUMMARY | 2025-05-04 15:10 | XMS_ITS | Encounter Summary ---
Author Organization [employer] Address [address] [place] [address] Care Team Providers Care Shot Blast Equipment Operator Name Role Phone Unavailable Primary Care Provider Unavailabl e Encounter Details Date Type Department Care Team (Late st Contact Info) Description 03/17/2022 Transcribed Document [facility] [place] [facility] [place] [address] ProviderEvangelista MD [address], [place] [id number] Social History Tobacco Use Types Packs/Day Years [...] Ministry Provided to : Patient, Family/Significant other Adventism Preference : Restorationist ([employer]) MEDINA BRADFORD P - 03/20/2022 8:04 EDT Spiritual Assessment Spiritual Assessment Comment/Summary Points : Provided pre-surgery visit and prayer with patient and mother. Spirital Assessment Comment/Summary Report : SPIRITUAL ASSESSMENT COMMENT/SUMMARY No qualifying data available. MEDINA BARDFORD - 03/20/2022 8:04 EDT Interventions Emotional Support : Empathic/Engaged listening, Family/Significant other supported Spiritual and Adventism : Prayer shared, Spiritual/Adventism support provided MEDINA BRADFORD - 03/20/2022 8:04 EDT Electronically signed by [facility] Conversion Wastewater Project Engineer Cerner at 03/05/2023 6:53 PM CDT documented in this encounter Plan of Treatment Not on file documented as of this encounter Visit Diagnoses Not on filedocumented in this encounter
--- OUTSIDE RECORDS SUMMARY | 2025-05-04 15:10 | XMS_ITS | Clinical Summary ---
Author Organization [facility] Address [address] [place] [address] Care Team Providers Care Engineering Intern Name Role Phone Diego Lynch MD Primary Care Provider [phone] Family History 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 Relation Name Comments [...] of Treatment Not on file Care Teams Engineering Intern Relationship Specialty Start Date End Date Diego Lynch MD [address] [facility] [address] [place] [address] PCP - General 03/29/21
== END 2025-05-04 23:59 | disposition home or self-care (01) ==
LOC: RAD 15:07
PROVIDERS: PCP Internal Medicine; Visit Provider Physician Assistant Surgical
DX: M17.11 Unilateral primary osteoarthritis, right knee (principal)
CPT/HCPCS: 73562

== ENCOUNTER 2025-05-08 12:35 | Inpatient (IN) | payer MEDICARE, SELFPAY ==
[2025-05-08] VITALS (11 sets, daily range): BP systolic 108–139; BP diastolic 57–87; PULSE 70–83; RESP 15–20; TEMP 36.8–36.9; O2SAT 92–98; BMI 58.2; BMI 47.8
--- NOTE | 2025-05-08 13:02 | ECG_ITS ---
APPROVED REPORT Exam: Resting ECG HR:76 bpm ECG Measurements Heart Rate 76 AXES MO 167 P 10 QRSd 118 QRS 44 QT 371 T 60 QTc 401 Conclusion SINUS RHYTHM LOW QRS VOLTAGE IN PRECORDIAL LEADS [QRS DEFLECTION < 1.0 mV IN CHEST LEADS] POSSIBLE ANTERIOR MYOCARDIAL INFARCTION , OF INDETERMINATE AGE [30 ms Q WAVE IN V3/V4, OR R < 0.2 mV IN V4] ABNORMAL ECG UNCONFIRMED REPORT Electronically signed by : ALIX TEMPLE, 05/09/2025 06:33:03
--- NOTE | 2025-05-08 13:07 | ED_ITS ---
<Statement entered by Elidia Castellon DO - 05/08/25 22:02> I was consulted by the TOM, and we discussed the complexity of the problems being addressed. I approved the treatment and management plan for this patient's care in the emergency department, thus performing a substantive portion of the medical decision making. Elidia Castellon DO Discharge Plan Disposition Patient Disposition: Admitted Condition: Serious Clinical Impressions Clinical Impression: Hyperkalemia, Acute nontraumatic kidney injury, Acute confusion Acute exacerbation of CHF (congestive heart failure) Qualifiers: Heart failure type: unspecified Qualified Code(s): I50.9 - Heart failure, unspecified Discharge ED Provider: Zac Roche General Adult HPI General Chief complaint: Altered Mental Status Stated complaint: Altered Mental Status Time Seen by Provider: 05/08/25 13:06 History of Present Illness HPI narrative: Patient presents from [facility] acute rehab for reported altered mental status. Patient has a past medical history of morbid obesity, with a BMI of 47.8, insulin-dependent type 2 diabetes mellitus, hypertension hyperlipidemia coronary artery disease status post 6 stents, Charcot joint of her bilateral lower extremities with a BKA of the left foot previously and most recently a second toe amputation by Dr. Williamson for which she is in the acute rehab for. Patient also has chronic kidney disease. Details are sketchy as we do not have report from the half-way but reportedly patient was altered. Patient herself reports that dyspnea is her only complaint today she denies fever chills hemoptysis hematochezia melena nausea vomiting diarrhea. She appears to be oriented to person place and circumstance currently. Related Data Home Medications ?Medication ?Instructions ?Recorded ?Confirmed hydroxyzine HCl 25 mg tablet 25 mg PO HS 04/25/2504/17 Previous Rx's ?Medication ?Instructions ?Recorded aspirin 81 mg chewable tablet 81 mg PO DAILY [facility]A LTH #90 12/12/24 tabs isosorbide mononitrate 60 mg 60 mg PO DAILY #90 tabs 0 12/12/24 tablet,extended release 24 hr metoprolol tartrate 100 mg tablet 100 mg PO BID #180 t abs 12/12/24 ramipril 5 mg capsule 5 mg PO DAILY #90 caps 12/12 spironolactone 25 mg tablet 25 mg PO DAILY #90 tabs dapagliflozin propanediol 10 mg 10 mg PO DAILY #90 tab s 01/16/25 tablet ranolazine 1,000 mg 1,000 mg PO BID #60 tabs 02/07 tablet,extended release,12 hr duloxetine 60 mg capsule,delayed 60 mg PO BID #180 cap s 01/31/25 release insulin syringe-needle U-100 0.5 #500 ea 01/31/25 mL 31 gauge x 03/31 (Sure Comfort Insulin Syringe) tramadol 50 mg tablet 50 mg PO Q6H PRN breakthroug h 01/31/25 pain, moderate #120 tabs trazodone 100 mg tablet 100 mg PO HS #90 tabs ezetimibe 10 mg tablet 10 mg PO HS #90 tabs 5 pen needle, diabetic 31 gauge x #1,200 ea 02/07/2503/31 (Unifine Pentips) rivaroxaban 2.5 mg tablet (Xarelto) 2.5 mg PO BIDWMEAL #60 tabs 02/07/25 insulin aspart U-100 100 unit/mL 18 unit (0.18 mL) SQ TID #45 mL 03/15/25 (3 mL) subcutaneous pen (Novolog FlexPen U-100 Insulin aspart) pregabalin 200 mg capsule 200 mg PO BID #180 caps 04/09 atorvastatin 40 mg tablet 40 mg PO HS #30 tabs 5 insulin glargine 100 unit/mL (3 60 unit (0.6 mL) SQ BI D #12 mL 04/28/25 mL) subcutaneous pen insulin lispro 100 unit/mL 1 sliding scale dose SQ ACH S #10 mL 04/28/25 subcutaneous solution (Humalog U-100 Insulin) metformin 500 mg tablet 500 mg PO BIDWMEAL 30 days # 60 tabs 04/28/25 polyethylene glycol 3350 17 gram 17 g PO DAILY #30 ea 04/28/25 oral powder packet (HealthyLax) sulfamethoxazole 800 1 tab PO BID #20 tabs mg-trimethoprim 160 mg tablet (Bactrim DS) blood-glucose sensor (Dexcom G7 #3 ea 05/01/25 Sensor device) Allergies Allergy/AdvReac Type Severity Reaction Status Date / Time clopidogrel (From Plavix) Allergy Severe Hives Verified 05/04/25 15:46 amoxicillin (AMOXICILLIN) Allergy Unknown Unknown Verified 05/04/25 15:46 allergy reaction codeine (CODEINE) AdvReac Mild STOMACH Verified 05/04/25 15:46 CRAMPS morphine (MORPHINE) AdvReac Mild STOMACH Verified 05/04/25 15:46 CRAMPS oxycodone (From Percocet) AdvReac Mild STOMACH Verified 05/04/25 15:46 CRAMPS PFSH PFSH Disclaimer: The information contained in this section may have been updated after the patient was seen, as this information can be updated by other users. 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 DKA (diabetic ketoacidosis) Fracture of toe of right foot Diarrhea Nausea & vomiting Typical angina Encounter for immunization Presence of external cardiac defibrillator Takotsubo cardiomyopathy Keratosis Encounter for wound care Pre-ulcerative calluses Diabetic foot Ulcer of right heel Fracture of foot with nonunion Retained orthopedic hardware Onychogryphosis Onychodystrophy Keratosis Ulcer of right foot due to type 2 diabetes mellitus Ulcer of left foot due to type 2 diabetes mellitus Type 2 diabetes mellitus with Charcot's joint of left foot Obesity, Class III, BMI 40-49.9 (morbid obesity) Migraine Osteoarthritis History of diverticulitis History of cataract History of left heart catheterization Recurrent major depression resistant to treatment Blood culture positive for microorganism Anemia HTN (hypertension) Type 2 diabetes mellitus with diabetic neuropathy, with long-term current use of insulin History of myocardial infarction Hyperlipemia CAD (coronary artery disease) Hx MRSA infection Essential hypertension Vitamin D deficiency Surgical History Status post foot surgery H/O shoulder surgery Hx of BKA History of appendectomy History of cholecystectomy History of hysterectomy History of hand surgery -bilateral hands History of foot surgery -on both feet -for Charcot's joint repairs Family History (Updated 05/08/25 @ 18:23 by Luna Rangel RN) Other Cancer Heart attack Hyperlipidemia Hypertension Stroke Social History (Updated 05/08/25 @ 18:24 by Luna Rangel RN) Smoking Status: Never smoker smoking status stop date: 07/17/2023 second hand exposure: No alcohol intake: never counseling given: No substance use type: denies use counseling given: No current occupational status: disabled Travel in the last 8 weeks?: None adopted: No caregiver/support person: No foster care: No household members: children housing: house lives independently: Yes marital status: number of children: 1 number of grandchildren: 0 education level: high school 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; 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 current occupational exposures/hazards: Yes pets and animals: Yes pets and animals: cat(s) Hx Recent Travel: No sexually active: No caffeine: Yes physical activity: none dyana/restorationist: Moravian special dyana needs: No working smoke detector in home: Yes fire extinguisher in home: Yes carbon monox detector in home: Yes firearms in home: No do you feel safe at home: Yes victim of physical abuse: No victim of emotional abuse: No victim of sexual abuse: No would you like helpful sources: No Have you lived/traveled outside [place] in past 30 days?: No Contact w/someone who lives/traveled outside US past 30 days?: No Exposure to someone with infectious disease in past 14 days?: No Do you have a fever (greater than 100.4 F or 38 C)?: No Have you tested positive for COVID-19?: No Exposed to someone with COVID-19 in past 14 days?: No Do you have a sore throat?: No Do you have a cough?: No Do you have any weakness?: No Do you have any diarrhea?: No Are you experiencing any unusual bleeding?: No Do you have any muscle aches/pain?: No Do you have any abdominal pain?: No Are you experiencing loss of taste or smell?: No Other 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 Have you received the Flu Vaccine for this season: No Have you received the Pneumonia Vaccine: No ROS Obtained: Yes Systems reviewed as appropriate & no additional complaints except as documented Physical Exam General General appearance: alert and in no apparent distress Respiratory Respiratory exam: Present normal lung sounds bilaterally Cardiovascular Cardiovascular exam: Present regular rate Neurological Exam Neurological exam: Present alert and CN II-XII intact Medical Decision Making Medical Records Medical records reviewed: Yes I reviewed the patient's medical records. Screening: Per USPSTF and CDC recommendations, given the prevalence of disease in our region, it is our hospital?s policy to screen for HIV and viral Hepatitis for all patients aged 18 and over and those with ongoing risk factors. Harsha Inquiry Pt receiving controlled substance: No Vital Signs: 05/08/25 13:16 05/08/25 13:43 05/08/25 14:00 Temperature 98.5 F Temperature Source Oral Pulse Rate 78 76 Pulse Rate [Left Radial] 76 Respiratory Rate 20 16 15 Blood Pressure 127/57 L 108/87 L Blood Pressure [Right Arm] 127/57 L Blood Pressure Mean 86 94 Blood Pressure Mean [Right Arm] 80 02 Sat by Pulse Oximetry 97 95 96 Oxygen Delivery Method Room Air 05/08/25 14:31 05/08/25 15:01 05/08/25 15:34 Temperature Temperature Source Pulse Rate 79 82 78 Pulse Rate [Left Radial] Respiratory Rate 16 16 20 Blood Pressure 128/61 125/60 118/57 L Blood Pressure [Right Arm] Blood Pressure Mean 83 81 77 Blood Pressure Mean [Right Arm] 02 Sat by Pulse Oximetry 96 96 96 Oxygen Delivery Method 05/08/25 16:15 05/08/25 16:31 05/08/25 16:43 Temperature 98.2 F Temperature Source Pulse Rate 80 70 Pulse Rate [Left Radial] Respiratory Rate 18 16 Blood Pressure 139/63 139/78 Blood Pressure [Right Arm] Blood Pressure Mean 88 Blood Pressure Mean [Right Arm] 02 Sat by Pulse Oximetry 97 Oxygen Delivery Method Room Air Room Air 05/08/25 17:00 Temperature Temperature Source Pulse Rate Pulse Rate [Left Radial] Respiratory Rate Blood Pressure Blood Pressure [Right Arm] Blood Pressure Mean Blood Pressure Mean [Right Arm] 02 Sat by Pulse Oximetry Oxygen Delivery Method Room Air Lab Data Lab results reviewed: Yes I reviewed the patient's lab results. Lab Results 05/08/25 12:25: Urine Color Yellow, Urine Appearance Clear, Urine pH 8.0, Ur Specific [place] 1.015, Urine Protein Negative, Urine Glucose (UA) 3+, Urine Ketones Negative, Urine Blood 1+ A, Urine Nitrate Negative, Urine Bilirubin Negative, Urine Urobilinogen 0.2, Ur Leukocyte Esterase Negative, Urine RBC 3-5, Urine WBC None, Ur Squamous Epith Cells Occasional, Urine Bacteria Trace 05/08/25 13:12: WBC 11.1 H, RBC 4.20, Hgb 11.6 L, Hct 37.0, MCV 88.1, MCH 27.6, MCHC 31.4 L, RDW 15.8, Plt Count 250, MPV 10.5 H, Neut % (Auto) 71.6, Lymph % (Auto) 16.8, [place] % (Auto) 7.9, Eos % (Auto) 3.0, Baso % (Auto) 0.4, Neut # (Auto) 8.0 H, Lymph # (Auto) 1.9, [place]ill # (Auto) 0.9, Eos # (Auto) 0.3, Baso # (Auto) 0.0, Sodium 134 L, Potassium 7.5 H*, Chloride 102, Carbon Dioxide 25, Anion Gap 14.5, BUN 20 H, Creatinine 1.60 H, Estimated GFR 33 L, Est GFR ( Amer) 40 L, Glucose 172 H, Calcium 9.3, Total Bilirubin 0.3, AST 27, ALT 18, Alkaline Phosphatase 72, Troponin I < 0.01, NT-Pro-B Natriuret Pep 2280 H, Total Protein 7.4, Albumin 3.8, Globulin 3.6 H, Albumin/Globulin Ratio 1.1, Procalcitonin 0.073, Acetone Level None detected 05/08/25 14:17: Potassium 6.8 H* 05/08/25 13:12 05/08/25 17:53 Orders (Tests/Meds): ED MEDICATIONS Generic Name Dose Route Start Last Admin Trade Name Freq PRN Reason Stop Dose Admin Acetaminophen 650 mg 05/08/25 17:44 Acetaminophen 325mg Tab PO 06/07/25 17:43 Q4HP PRN Fever or Mild Pain (1-3) Aspirin 81 mg 05/09/25 09:00 Aspirin 81mg Chewable Tablet PO 06/08/25 08:59 DAILY PETE Dextrose 50 ml 05/08/25 18:22 05/08/25 18:36 Dextrose 50% 50ml Syringe (Crash Cart) IVP 05/08/25 18:23 50 ml ONCE ONE Administration Duloxetine HCl 60 mg 05/08/25 21:00 Duloxetine 30mg Capsule. PO 06/07/25 20:59 BID PETE Hydroxyzine Pamoate 25 mg 05/08/25 21:00 Hydroxyzine Pamoate 25mg Capsule PO 06/07/25 20:59 HS PETE Insulin Glargine 60 unit 05/08/25 21:00 Insulin Glargine 100 Units/Ml 3ml Flexpen SUBCUT 06/07/25 20:59 BID [facility] Insulin Human Lispro 0 unit 05/08/25 21:00 Humalog 100 Units/Ml 10ml Vial (Ssi) SUBCUT 06/07/25 20:59 ACHS [facility] Protocol Insulin Human Regular 10 unit 05/08/25 18:22 05/08/25 18:36 Insulin Human Regular 100 Units/Ml 10ml Vial IVP 05/08/25 18:23 10 unit ONCE ONE Administration Isosorbide Mononitrate 60 mg 05/09/25 09:00 Isosorbide Hemphill 60mg Tab.Er.24h PO 06/08/25 08:59 DAILY [facility] Metoprolol Tartrate 100 mg 05/08/25 21:00 Metoprolol Tartrate 50mg Tablet PO 06/07/25 20:59 BID [facility] Ondansetron HCl 4 mg 05/08/25 17:44 Ondansetron 4mg/2ml Vial IV 06/07/25 17:43 Q6HP PRN Nausea Polyethylene Glycol 17 gm 05/09/25 09:00 Polyethylene Glycol 3350 17 Gm Packet PO 06/08/25 08:59 DAILY [facility] Pregabalin 100 mg 05/08/25 21:00 Pregabalin 100mg Capsule PO 06/07/25 20:59 BID [facility] Rivaroxaban 2.5 mg 05/09/25 07:30 Rivaroxaban 2.5mg Tablet PO 06/08/25 07:29 BIDWMEAL [facility] Sodium Bicarbonate 1,300 mg 05/08/25 21:00 Sodium Bicarbonate 650mg Tablet PO 06/07/25 20:59 TID [facility] Sodium Zirconium Cyclosilicate 10 gm 05/08/25 21:00 Lokelma 5gm Packet PO 05/09/25 20:59 TID [facility] Tramadol HCl 50 mg 05/08/25 18:33 Tramadol 50mg Tablet PO 06/07/25 18:32 Q6H PRN breakthrough pain, moderate Trazodone HCl 100 mg 05/08/25 21:00 Trazodone 50mg Tablet PO 06/07/25 20:59 HS [facility] Discontinued Medications Generic Name Dose Route Start Last Admin Trade Name Freq PRN Reason Stop Dose Admin Dextrose 50 ml 05/08/25 14:35 05/08/25 14:55 Dextrose 50% 50ml Syringe (Crash Cart) IVP 05/08/25 14:36 50 ml ONCE ONE Administration Furosemide 80 mg 05/08/25 15:15 05/08/25 15:27 Furosemide 100mg/10ml Vial IV 05/08/25 15:16 80 mg ONCE ONE Administration Sodium Chloride 1,000 mls @ 999 mls/hr 05/08/25 13:08 05/08/25 13:42 Sod Chlor 0.9% 1000ml Bag IV 05/08/25 14:08 999 mls/hr .Q1H1M ONE Administration Calcium Gluconate/Sodium Chloride 2 gm in 100 mls @ 50 mls/hr 05/08/25 14:37 05/08/25 14:55 Calcium Gluconate 2,000mg/100ml Nacl Premix IV 05/08/25 16:36 50 mls/hr ONCE ONE Administration Insulin Human Regular 10 unit 05/08/25 14:35 05/08/25 14:55 Insulin Human Regular 100 Units/Ml 10ml Vial IVP 05/08/25 14:36 10 unit ONCE ONE Administration Iopamidol 80 ml 05/08/25 15:20 05/08/25 15:21 Iopamidol-370 (76%);100ml Bottle IV 05/08/25 15:21 80 ml ONCE ONE Administration Sodium Chloride 10 ml 05/08/25 15:20 05/08/25 15:21 Sodium Chloride 0.9% 10ml Syr (Rad Only) IV 06/07/25 15:19 10 ml NEEDED PRN Administration Maintain IV Site Sodium Chloride 50 ml 05/08/25 15:20 05/08/25 15:21 0.9 % Sodium Chloride 50 Ml Vial IV 05/08/25 15:21 50 ml ONCE ONE Administration Sodium Zirconium Cyclosilicate 10 gm 05/08/25 14:35 05/08/25 14:55 Lokelma 5gm Packet PO 05/08/25 14:36 10 gm ONCE ONE Administration ORDERS Category Date Time Status CT angio chest PE protocol Stat Cat Scan 05/08/25 13:[address] head/brain wo con Stat Cat Scan 05/08/25 14:39 Completed Acetone, Serum (Rapid) Stat Lab 05/08/25 13:12 Completed BNP [NT Pro Brain Natriuretic Pep.] Stat Lab 05/08/25 13:12 Completed CBC w/Auto Diff [Complete Blood Count Auto Diff] Stat Lab 05/08/25 13:12 Completed CMP [Comprehensive Metabolic Panel] Stat Lab 05/08/25 13:12 Completed Potassium Stat Lab 05/08/25 14:17 Completed Procalcitonin Stat Lab 05/08/25 13:12 Completed Trop I [Troponin I] Stat Lab 05/08/25 13:12 Completed UA [Urinalysis and Microscopic] Stat Lab 05/08/25 12:25 Completed Medical Decision Narrative: In summary patient is a 54-year-old female who presents to the emergency department for evaluation of altered mental status per the half-way and dyspnea per the patient. Patient is hemodynamically stable on arrival with a blood pressure 127/57 pulse of 76 normal sinus rhythm on the bedside monitor breathing 20 times a minute satting at 97% on room air upon arrival, afebrile at 98.5. Physical exam reveals a well-nourished well-developed morbidly obese 54-year-old female who does not currently appear to be in acute distress. Pupils equal round reactive to light. [place] Coma Score is 15. Patient is awake alert and oriented to person place and circumstance however during my interview would make nonsensical statements such as well I guess were going to make soup later . Breath sounds clear and equal bilaterally to the bases without adventitious sounds abdomen soft nontender no rebound or guarding no rigidity. Bowel sounds normal active. Patient has no focal neurologic deficits moves all 4 extremities. Surgical site of the right second toe appears to be healing well with no evidence of cellulitis or postoperative infection. Differential diagnosis includes stroke versus infection versus CHF exacerbation versus electrolyte abnormality versus toxic metabolic encephalopathy versus DKA etc. Initial workup will be conducted with CT of the head without contrast CTA of the head and neck twelve-lead EKG hematologic labs urinalysis. Initial interventions was considered however patient other than her dyspnea has no other complaints so for now we will defer until her CRUZ is more clear. Initial workup reviewed by me shows that she has a white count of 11.1 H&H of 11.6 and 37.0 respectively with an absolute neutrophil count of 8.0, sodium 134 potassium of 7.5 BUN of 20 creatinine 1.6 GFR of 33 glucose 72 calcium 9.3 troponin less than 0.01 NT proBNP is 2280 procalcitonin is 0.073 urinalysis is bland and no acetone. Given the possibility of hemolysis her potassium was rechecked and it was still elevated at 6.8. Given this I have ordered Lokelma 2 g of calcium gluconate and amp of D50 and 10 units of insulin to lower her potassium. She has no EKG changes. My informal interpretation of her imaging shows no acute processes prior to radiology read. I have started a crystalloid bolus. Given her acute confusion acute nontraumatic kidney injury and possible CHF I had interactive discussion with hospital medicine regarding patient presentation CRUZ and management and she will be admitted for further evaluation and care Critical Care Critical Care Time Critical Care Time: Yes Attestation: On 05/08/25, the high probability of a clinically significant, sudden or life threatening deterioration of the following system(s) required my full and direct attention, intervention and personal management. The time I documented below is in addition to time spent performing reported procedures but includes the following listed in this critical care notation. Total Time Total Critical Care Time: 30
[2025-05-08 13:24] LABS: Basophils % 0.4 % (0.1-2.0); Eosinophils # 0.3 Kmm3 (0.0-0.4); Hemoglobin 11.6 g/dL (12.2-16.2); Immature Granulocytes # 0.03 10^3uL; Immature Granulocytes % 0.3 %; Lymphocytes # 1.9 K/mm3 (0.7-4.5); Lymphocytes % 16.8 % (10-50); Mean Corpuscular HGB Conc 31.4 g/dL (31.8-35.4); Mean Corpuscular Hemoglobin 27.6 pg (27.0-31.2); Mean Corpuscular Volume 88.1 fl (81-99); Mean Platelet Volume 10.5 fl (7.4-10.4); Monocytes # 0.9 K/mm3 (0.1-1.0); Monocytes % 7.9 % (1.7-9.3); Neutrophils % 71.6 % (37.0-80.0); Nucleated Red Blood Cells # 0 10^3/uL; Nucleated Red Blood Cells % 0 %; Platelet Count 250 K/mm3 (142-424); Red Cell Distribution Width 15.8 % (11.5-17.5); Red Cell Distribution Width-SD 50.1 fL; White Blood Count 11.1 K/mm3 (4.8-10.8)
[2025-05-08 13:27] LABS: Chloride 102 mmol/L (98-107); Sodium 134 mmol/L (136-145)
[2025-05-08 13:27] LABS: Microscopic, Urine URINE MICROSCOPIC (MICROSCOPIC)
[2025-05-08 13:29] LABS: Appearance,Urine CLEAR (Clear); Bilirubin,Urine Negative (Negative); Blood, Urine 1+ (Negative); Color,Urine YELLOW (Yellow); Glucose,Urine (UA) 3+ (Negative); Ketones,Urine Negative (Negative); Leukocyte Esterase,Urine Negative (Negative); Nitrate,Urine Negative (Negative); Protein,Urine Negative (Negative); Specific Gravity, Urine 1.015 (1.005-1.030); Urobilinogen,Urine 0.2 EU/dl (0.2)
[2025-05-08 13:30] LABS: Alanine Aminotransferase 18 U/L (12-78); Alkaline Phosphatase 72 U/L (38-126); Anion Gap 14.5 mEq/L (5-15); Aspartate Amino Transferase 27 U/L (14-36); Bilirubin,Total 0.3 mg/dl (0.2-1.3); Blood Urea Nitrogen 20 mg/dl (7-17); Carbon Dioxide 25 mmol/L (22.0-30.0); Estimated Glomerular Filt Rate 33 ml/min (>60); GFR (African American) 40 ML/MIN (>60); Total Protein,Serum 7.4 g/dl (6.3-8.2)
[2025-05-08 13:31] LABS: Calcium 9.3 mg/dl (8.4-10.2); Glucose 172 mg/dl (74-100)
--- NOTE | 2025-05-08 13:31 | CT_ITS ---
FINAL REPORT TECHNIQUE: Thin section axial CT with contrast with multiplanar reconstruction This study was performed with techniques to keep radiation doses as low as reasonably achievable, (ALARA). Individualized dose reduction techniques using automated exposure control or adjustment of mA and/or kV according to the patient's size were employed. CLINICAL HISTORY: Postoperative dyspnea COMPARISON: 07/11/2023 FINDINGS: Pulmonary vessels enhance in normal fashion without evidence of embolism. Thoracic aorta shows no dissection or aneurysm. Minimal dependent atelectasis is noted without evidence of pneumonia or aspiration. No pulmonary mass or infiltrate is present. There is no significant pleural effusion. There is no significant pericardial effusion. No mediastinal or hilar adenopathy is present. IMPRESSION: 1. No acute findings. Reviewed, Interpreted and Dictated by Armen Ortiz MD Transcribed by Sunitha Rebolledo Authenticated and [facility]
--- OUTSIDE RECORDS SUMMARY | 2025-05-08 13:32 | XMS_ITS | Clinical Summary ---
Author Organization [facility] Address [address] [place] [address] Phone Care Team Providers Care Project Manager Industrial Name Role Phone Kaity Emerson Unavailable Unavailable Conditions or Problems Problem Name Problem Code Onset Date Status Entry Date Provider Comment Standard Description Annotate Candidiasis , vaginal 37570779 (SNOMED CT) 03/18 Active 03/19 Charlene W Candidiasis of vagina Thrush, oral 47624262 (SNOMED CT) 03/11 Inactive 03/11 Charlene W Candidiasis of mouth Problem excluded fro m report: Other obesity due to excess calories 362568097 (SNOMED CT) 03/15 Active 03/15 Cindi Traroe Simple obesity Thrush, oral 11666979 (SNOMED CT) 03/11 Active 03/11 Jeet Rene MD Candidiasis of mouth Thrush, oral 96754616 (SNOMED CT) 03/11 Removed 03/11 Elizabeth Sims Candidiasis of mouth Hx of left TMA 97031624872 049026 (SNOMED CT) 03/04 Active 03/01 Charlene W History of amputation of left lesser toe DM non-pressur e chronic ulcer of left foot, plantar surface, with bone involvement without evidence of necrosis (E11.621) 218136908 (SNOMED CT) 03/01 Inactive 03/01 Luna Hughes Chronic ulcer of foot Chronic osteomyelit is, left foot M86.672 (ICD-10-CM) 03/01 Active 03/01 Luna Hughes Other chronic osteomyelitis, left ankle and foot Coronary artery disease (CAD) 77260134 (SNOMED CT) 03/01 Active 03/01 Luna Hughes Coronary arteriosclerosi s Benign Essential Hypertensio n 8690348 (SNOMED CT) 03/01 Active 03/01 Luna Hughes Benign essential hypertension Cellulitis, foot, left 239536307 (SNOMED CT) 03/01 Active 03/01 Luna Hughes Cellulitis of foot DM Type II E11.9 (ICD-10-CM) 03/01 Active 03/01 Lnua Hughes Type 2 diabetes mellitus without complications BMI 45.0-49.9 Z68.42 (ICD-10-CM) 12/14 Resolved 12/14 Luna Hughes Body mass index [BMI] 45.0-49.9, adult MORBID OBESITY 944213153 (SNOMED CT) 12/14 Resolved 12/14 Luna Hughes Morbid obesity TOBACCO USER 068087140 (SNOMED CT) 12/03 Resolved 12/03 Luna Hughes Tobacco user C. DIFF COLITIS A04.7 (ICD-10-CM) 12/03 Resolved 12/03 Luna Hughes Enterocolitis due to Clostridium difficile DM II, UNCONTROLLE D E11.65 (ICD-10-CM) 12/03 Resolved 12/03 Luna Hughes Type 2 diabetes mellitus with hyperglycemia FEVER 705017764 (SNOMED CT) 12/03 Resolved 12/03 Luna Saul Fever VAGINAL CANDIDIASIS 06714346 (SNOMED CT) 12/03 Resolved 12/03 Luna Saul Candidiasis of vagina DIVERTICULI TIS OF SIGMOID COLON 364781349 (SNOMED CT) 12/03 Resolved 12/03 Luna Saul Diverticulitis of sigmoid colon BMI 45.0-49.9 Z68.42 (ICD-10-CM) 12/14 Removed 12/14 Charlene W Body mass index [BMI] 45.0-49.9, adult MORBID OBESITY 383820577 (SNOMED CT) 12/14 Removed 12/14 Charlene W Morbid obesity DM II, UNCONTROLLE D E11.65 (ICD-10-CM) 12/03 Removed 12/03 Charlene W Type 2 diabetes mellitus with hyperglycemia DIARRHEA OF PRESUMED INFECTIOUS ORIGIN 81965308 (SNOMED CT) 12/03 Correction 12/03 Charlene W Diarrhea of presumed infectious origin ABDOMINAL PAIN, LEFT LOWER QUADRANT 697211192 (SNOMED CT) 12/03 Correction 12/03 Charlene W Left lower quadrant pain WEAKNESS 21825821 (SNOMED CT) 12/03 Correction 12/03 Charlene W Asthenia WEIGHT LOSS 606129860 (SNOMED CT) 12/03 Correction 12/03 Charlene W Abnormal weight loss DIARRHEA 96344709 (SNOMED CT) 12/03 Correction 12/03 Charlene W Diarrhea DM TYPE II E11.9 (ICD-10-CM) 12/03 Correction 12/03 Luna Hughes Type 2 diabetes mellitus without complications TOBACCO USER 162912581 (SNOMED CT) 12/03 Removed 12/03 Luna Saul Tobacco user WEIGHT LOSS 421456083 (SNOMED CT) 12/03 Removed 12/03 Luna Saul Abnormal weight loss WEAKNESS 88843331 (SNOMED CT) 12/03 Removed 12/03 Luna Saul Asthenia FEVER 506276543 (SNOMED CT) 12/03 Removed 12/03 Luna Saul Fever C. DIFF COLITIS A04.7 (ICD-10-CM) 12/03 Removed 12/03 Luna Saul Enterocolitis due to Clostridium difficile DIARRHEA OF PRESUMED INFECTIOUS ORIGIN 02772739 (SNOMED CT) 12/03 Removed 12/03 Luna Saul Diarrhea of presumed infectious origin DIARRHEA 07712992 (SNOMED CT) 12/03 Removed 12/03 Luna Saul Diarrhea DIVERTICULI TIS OF SIGMOID COLON 357368174 (SNOMED CT) 12/03 Removed 12/03 Luna Saul Diverticulitis of sigmoid colon ABDOMINAL PAIN, LEFT LOWER QUADRANT 873658833 (SNOMED CT) 12/03 Removed 12/03 Luna Saul Left lower quadrant pain VAGINAL CANDIDIASIS 03918346 (SNOMED CT) 12/03 Removed 12/03 Luna Hughes Candidiasis of vagina Medications Medication Instructions Start Date Stop Date Generic Name NDC Provider DOXYCYCLINE MONOHYDRATE 100 MG CAPS Take one capsule by mouth twice daily DOXYCYCLINE MONOHYDRATE 95359107341 Jeet Rene MD TEFLARO SOLR 600mg IV Q 12hrs x 4wks Bioscrip/Dose, line care, labs [facility] CEFTAROLINE FOSAMIL SOLR [id number] Kaity Emerson DOXYCYCLINE MONOHYDRATE 100 MG CAPS Take one capsule by mouth twice daily DOXYCYCLINE MONOHYDRATE 24049778123 Jeet Reen MD FLUCONAZOLE 100 MG TABS Take two tablets by mouth once daily FLUCONAZOLE 82692916330 Jeet Rene MD DIFLUCAN 100 MG TABS Take two tablets by mouth once daily FLUCONAZOLE 10322997439 Jeet Rene MD FLAGYL 500 MG ORAL TABLET Take one tablet by mouth three times daily METRONIDAZOLE 32899780234 Jeet Rene MD ONDANSETRON 4 MG TBDP Take one tablet by mouth every 12 hours ONDANSETRON 79734028430 Jeet Rene MD TEFLARO SOLR 600mg IV Q 12hrs x 4wks Bioscrip/Dose, line care, labs [facility] CEFTAROLINE FOSAMIL SOLR [id number] Kaity Ki DAPTOMYCIN SOLR 750mg IV daily x 6wks HH Bioscrip/Dose, line care labs LID DAPTOMYCIN SOLR [id number] Kaity Ki CEFEPIME HCL SOLN 2gm IV q 12hrs x 6wks HH Bioscrp, Dose, line care, labs LID CEFEPIME HCL SOLN 50297740256 Kaity Emerson FLUCONAZOLE 200 MG TABS Take one tablet by mouth daily FLUCONAZOLE 08742105536 Jeet Rene MD CEFEPIME HCL SOLN 2gm IV q 12hrs x 6wks Bioscrp, Dose, line care, labs [facility] CEFEPIME HCL SOLN [phone] Kaity Emerson DAPTOMYCIN SOLR 750mg IV daily x 6wks Bioscrip/Dose, line care labs [facility] DAPTOMYCIN SOLR 26028448545 Kaity Emerson FLAGYL 500 MG ORAL TABLET Take one tablet by mouth three times daily METRONIDAZOLE 00952900347 Jeet Rene MD TETRACYCLINE HCL 500 MG CAPS TETRACYCLINE HCL 45322149238 Vivek D HYDROMORPHONE HCL 2 MG TABS TAKE ONE TABLET BY MOUTH EVERY 4 HOURS NEEDED FOR moderate TO SEVERE pain MAY CAUSE DROWSINESS HYDROMORPHONE HCL 79943223750 Vivek D ONETOUCH ULTRA STRP USE 1 STRIP TO CHECK GLUCOSE THREE TIMES DAILY GLUCOSE BLOOD 29317260234 Vivek Thomson LACTINEX ORAL TABLET CHEWABLE one by mouth three times a day LACTOBACILLUS 98892230886 Jeet Rene MD FLAGYL 500 MG ORAL TABLET one by mouth three times a day x 2 weeks METRONIDAZOLE 87644283876 Jeet Rene MD LEVAQUIN 750 MG ORAL TABLET one by mouth daily x 2 weeks LEVOFLOXACIN 52535248495 Jeet Rene MD INVANZ (IJ) SOLUTION RECONSTITUTED 1 gm IV daily OPAT ERTAPENEM SODIUM SOLR 32397962713 Jeet Rene MD LANTUS 100 UNIT/ML SOLN INSULIN GLARGINE 15772059229 Aury Z DIFLUCAN TABLET FLUCONAZOLE TABS 46972339641 Aury Z INVANZ (IJ) SOLUTION RECONSTITUTED 1 gm IV daily OPAT ERTAPENEM SODIUM SOLR 65689689615 Peggy Sharma MD DIFLUCAN 200 MG TABS take one daily for yeast infection FLUCONAZOLE 23221883169 Peggy Sharma MD LORTAB 10-500 MG ORAL TABLET HYDROCODONE-ACET AMINOPHEN 99891910022 Peggy Sharma MD NORCO TABS HYDROCODONE-ACET AMINOPHEN TABS 79471296544 Peggy Sharma MD LYRICA CAPS PREGABALIN CAPS 49199981125 Jahaira Merlos CYMBALTA CPEP DULOXETINE HCL CPEP 79865963633 Jahaira G LASIX TABS FUROSEMIDE TABS 70085434669 Jahaira G NORCO TABS HYDROCODONE-ACET AMINOPHEN TABS 93035845804 Jahaira Merlos ATENOLOL TABS ATENOLOL TABS 53483912234 Jahaira Merlos GLYBURIDE TABS GLYBURIDE TABS 66550000961 Jahaira Merlos INVANZ (IJ) SOLUTION RECONSTITUTED ERTAPENEM SODIUM SOLR 99254870458 Jahaira Merlos DIFLUCAN TABLET FLUCONAZOLE TABS 08447643160 Jahaira Merlos Medications Administered No information available. 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 education, guidance, and counseling [...] CPT-wclc Weekly Central Line Care 202 11/21/06 CPT-45469 CMP [id number] CBC with Differential 2020 CPT-50849 C- reactive protein CPT-69403 Sedimentation Rate (ESR) 202 11/21/06 CPT-ca Continue IV antibiotics 2020 CPT-Cooral Continue oral antibiotics 20 05/04/24 CPT-cwl Weekly Labs (Continue) 04/08 CPT-wclc Weekly Central Line Care 202 11/20/23 CPT-18992 CMP CPT-02239 CBC w/o Differential [id number], [id number] CPK CPT-82730 Sedimentation Rate (ESR) 202 11/20/23 CPT-91553 C- reactive protein CPT-67301 CMP CPT-22700 C- reactive protein CPT-98586 Sedimentation Rate (ESR) 202 11/20/09 CPT-ca Continue IV antibiotics 2020 CPT-wpc Weekly PICC Line Care 03/18 CPT-cwl Weekly Labs (Continue) 03/18 CPT-00081 CMP CPT-24945 CBC w/o Differential [id number], [id number] CPK CPT-33763 Sedimentation Rate (ESR) 11/20/02 CPT-ca Continue IV antibiotics 2020 CPT-wpc Weekly PICC Line Care 03/11 CPT-cwl Weekly Labs (Continue) 03/11 CPT-64368 CMP CPT-65101 CBC w/o Differential [id number], [id number] CPK CPT-94456 Sedimentation Rate (ESR) 202 11/19/25 CPT-kayli New IV antibiotic CPT-cwl Weekly Labs (Continue) 03/04 CPT-wclc Weekly Central Line Care 202 11/19/18 CPT-62730 CMP CPT-36293 CBC w/o Differential 19 CPT-89623 C- reactive protein CPT-25005 Sedimentation Rate (ESR) 202 11/19/18 CPT-sl STAT Labs CPT-DC Discontinue IV antibiotics 2 CPT-32755 BMP CPT-80665 CBC w/o Differential CPT-kayli New IV antibiotic CPT-J1335 Ertapenem CPT-59377 CMP CPT-50673 CBC with Differential 12/03 CPT-cdpcr C-Diff PCR [...]
--- OUTSIDE RECORDS SUMMARY | 2025-05-08 13:33 | XMS_ITS | Clinical Summary ---
Author Organization Healthcare Address [address] [place] [address] Care Team Providers Care Medical Record Assistant Name Role Phone Diego Lynch MD Primary Care Provider [phone] Family History 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 Relation Name Comments [...] of Treatment Not on file Care Teams Medical Record Assistant Relationship Specialty Start Date End Date Diego Lynch MD [address] [address] [place] [address] PCP - General 03/29/21
--- OUTSIDE RECORDS SUMMARY | 2025-05-08 13:33 | XMS_ITS | Data Portability ---
Author Organization [facility] TISHA Ac [place] [facility] Address [address] [place] [address] Assessment No assessment recorded. Plan of Treatment Reminders Order Date Submit Date Provider Last Modified By Organization Details Last Modified Time Details Appointments None recorded. Lab glucose, fingerstic k, blood 2023 024 [facility], [address] [place] [address], [id number], 4 15:21:02 hemoglobin A1C, fingerstic k 2023 024 [facility], [address] [place] [address], [address], 4 15:21:03 BMP, serum or plasma [address] [facility], [address] [place] [address], [address], 4 16:57:00 microalbum in/creatin ine, mass ratio, urine [address] [facility], [address] [place] [address], [address], 4 17:04:15 lipid panel, serum [address] [facility], [address] [place] [address], [address], 4 16:56:58 hepatic function panel, serum 2023 024 [email or web address], [address] [place] [address], [address], 4 16:56:57 glucose, fingerstic k, blood 2022 023 [facility], [address] [place] [address], [address], 3 15:09:56 hemoglobin A1C, fingerstic k 2022 023 [facility], [address] [place] [address], [address], 3 15:09:56 microalbum in/creatin ine, mass ratio, urine 2022 023 [email or web address] [facility], [address] [place] [address], [address], 4 08:03:27 BMP, serum or plasma [email or web address] [facility], [address] [place] [address], [address], 4 08:03:28 lipid panel, serum 2022 023 [email or web address] [facility], [address] [place] [address], [address], 4 08:03:28 hepatic function panel, serum 2022 023 [email or web address] [facility], [address] [place] [address], [address], 4 08:03:28 glucose, fingerstic k, blood 2022 023 [facility], [address] [place] [address], [address], 3 14:55:56 glucose, fingerstic k, blood 2022 023 [facility], [address] [place] [address], [address], 3 15:00:30 hemoglobin A1C, fingerstic k 2022 023 [facility], [address] [place] [address], [address], 3 15:00:30 microalbum in/creatin ine, mass ratio, urine [email or web address] [place] [address] Laboratory, [address] [place] [address], [address], 4 09:22:02 BMP, serum or plasma [email or web address] [place] [address] Laboratory, [address] [place] [address], [address], 4 09:22:02 lipid panel, serum [email or web address] [facility], [address] [place] [address], [address], 4 09:22:01 hepatic function panel, serum [email or web address] [facility], [address] [place] [address], [address], 4 09:22:01 glucose, fingerstic k, blood 2021 022 [facility], [address] [place] [address], [address], 2 14:40:04 hemoglobin A1C, fingerstic k 2021 022 [facility], [address] [place] [address], [address], 2 14:40:03 Referral None recorded. Procedures None recorded. Surgeries None recorded. Imaging None recorded. Medication Orders Novolog FlexPen U-100 Insulin aspart 100 unit/mL (3 mL) subcutaneo us 2023 024 [facility], [address] [place] [address], [address], [place], [address], 4 15:25:01 Farxiga 10 mg tablet 2023 024 [facility], [address] [place] [address], [address], [place], [address], 4 15:25:02 Lantus Solostar U-100 Insulin 100 unit/mL (3 mL) subcutaneo us pen 2023 024 [facility], [address] [place] [address], [facility], [place], [address], 4 15:24:56 Ozempic 1 mg/dose (4 mg/3 mL) subcutaneo us pen injector 2023 024 [email or web address] 8 [facility], [address] [place] [address], [address], [place], [address], 4 15:58:04 Lantus Solostar U-100 Insulin 100 unit/mL (3 mL) subcutaneo us pen 2022 023 [facility], [address] [place] [address], [address], [place], [address], 3 15:12:29 Humalog KwikPen (U-100) Insulin 100 unit/mL subcutaneo us 2022 023 [email or web address] 150 [facility], [address] [place] [address], [address], [place], [address], 3 14:40:27 Victoza 3-Ajay 0.6 mg/0.1 mL (18 mg/3 mL) subcutaneo us pen injector 2022 023 [facility], [address] [place] [address], [address], [place], [address], 3 15:12:31 Farxiga 10 mg tablet 2022 023 [facility], [address] [place] [address], [address], [place], [place], [address], 3 15:05:58 Humalog KwikPen (U-100) Insulin 100 unit/mL subcutaneo us [address], [address] [place] [address], [facility], [place], [place], [address], 3 14:40:27 Lantus Solostar U-100 Insulin 100 unit/mL (3 mL) subcutaneo us pen 2022 023 [facility], [address] [place] [address], [address], [place], [place], [address], 3 15:05:59 Victoza 3-Ajay 0.6 mg/0.1 mL (18 mg/3 mL) subcutaneo us pen injector 2022 023 [facility], [address] [place] [address], [address], [place], [place], [address], 3 15:06:03 Farxiga 10 mg tablet 2022 023 [facility], [address] [place] [address], [address], [place], [address], 3 15:47:06 Humalog KwikPen (U-100) Insulin 100 unit/mL subcutaneo us [address], [address] [place] [address], [address], [place], [address], 14:40:27 Lantus Solostar U-100 Insulin 100 unit/mL (3 mL) subcutaneo us pen 2022 023 [facility], [address] [place] [address], [address], [place], [address], 15:06:19 Victoza 3-Ajay 0.6 mg/0.1 mL (18 mg/3 mL) subcutaneo us pen injector 2022 023 [facility], [address] [place] [address], [address], [place], [address], 15:06:17 Farxiga 10 mg tablet 2021 022 [facility], [address] [place] [address], [address], [place], [address], 14:41:29 Humalog KwikPen (U-100) Insulin 100 unit/mL subcutaneo us [email or web address], [address] [place] [address], [address], [place], [address], 14:40:27 Lantus Solostar U-100 Insulin 100 unit/mL (3 mL) subcutaneo us pen 2021 022 [facility], [address] [place] [address], [address], [place], [address], 14:41:28 Victoza 3-Ajay 0.6 mg/0.1 mL (18 mg/3 mL) subcutaneo us pen injector 2021 022 [facility], [address] [place] [address], [address], [place], [address], 14:41:28 Patient TargetsNo targets recorded. Patient InstructionsNo instructions recorded. Reason for Referral None Reported. Results Created Date Observation Date Name Description Value Unit Range Abnormal Flag Note LastModifiedBy Organization Detail LastModifiedTime 09/23/20 22 09/23/2022 hemog lobin A1C, finge rstic k hemoglobin A1C % 8.7 % 4.0 - 5.6 Not Available [facility] [address], [address], 09/23/2022 14:10:19 09/23/20 22 09/23/2022 gluco se, finge rstic k, blood glucose, fingerstick 159 mg/dL 70 - 100 Not Available [facility] [address], [address], 09/23/2022 14:09:55 12/30/19 23 12/30/2022 hemog lobin A1C, finge rstic k hemoglobin A1C % 8.1 % 4.0 - 5.6 Not Available [facility] [address], [address], 12/30/2022 14:52:49 12/30/19 23 12/30/2022 gluco se, finge rstic k, blood glucose, fingerstick 214 mg/dL 70 - 100 Not Available [facility] [address], [address], 12/30/2022 14:52:14 05/06/20 23 05/06/2023 gluco se, finge rstic k, blood glucose, fingerstick 218 mg/dL 70 - 100 Not Available [facility] [address], [address], 05/06/2023 14:19:19 09/02/20 23 09/02/2023 hemog lobin A1C, finge rstic k hemoglobin A1C % 9.6 % 4.0 - 5.6 Not Available [facility] [address], [address], 09/02/2023 14:20:15 09/02/20 23 09/02/2023 gluco se, finge rstic k, blood glucose, fingerstick 313 mg/dL 70 - 100 Not Available [facility] [place] [address] [place] [address], [address], 09/02/2023 14:20:00 12/24/19 24 12/24/2023 HEPAT IC (LIVE R) PANEL AST 16 U/L 0-32 normal Not Available [facility] [address] [place] [address], [address], 12/24/2023 16:56:57 12/24/19 24 12/24/2023 HEPAT IC (LIVE R) PANEL ALT 12 U/L 0-33 normal Not Available [facility] [address] [place] [address], [address], 12/24/2023 16:56:57 12/24/19 24 12/24/2023 HEPAT IC (LIVE R) PANEL alkaline phosphatase 95 U/L 30-121 normal Not Available [facility] [address] [place] [address], [address], 12/24/2023 16:56:57 12/24/19 24 12/24/2023 HEPAT IC (LIVE R) PANEL total protein 7.8 g/dL 6.4-8. 3 normal Not Available [facility] [address] [place] [address], [address], 12/24/2023 16:56:57 12/24/19 24 12/24/2023 HEPAT IC (LIVE R) PANEL albumin 3.9 g/dL 3.5-5. 2 normal Not Available [facility] [address] [place] [address], [address], 12/24/2023 16:56:57 12/24/19 24 12/24/2023 HEPAT IC (LIVE R) PANEL bilirubin, total 0.2 mg/dL 0.1-1. 2 normal Not Available [facility] [address] [place] [address], [address], 12/24/2023 16:56:57 12/24/19 24 12/24/2023 HEPAT IC (LIVE R) PANEL bilirubin, direct <0.2 mg/dL 0.0-0. 3 normal Not Available [facility] [address] [place] [address], [address], 12/24/2023 16:56:57 12/24/19 24 12/24/2023 HEPAT IC (LIVE R) PANEL bilirubin, indirect see below mg/dL _(adeline c) 0.0-1. 0 normal Unabl e to calcu late Indir ect Bilir ubin. Not Available [facility] [address] [place] [address], [address], 12/24/2023 16:56:57 12/24/19 24 12/24/2023 LIPID PROFI LE HDL cholesterol 36 mg/dL 50-242 low Not Available [facility] [address] [place] [address], [address], 12/24/2023 16:56:58 12/24/19 24 12/24/2023 LIPID PROFI LE triglyceride s 203 mg/dL 0-149 high TRIGL YCERI DE RANGE S JACK L: < 150 BORDE RLINE HIGH: 150 - 199 HIGH: 200 - 499 VERY HIGH: > OR = 500 Not Available [facility] [address] [place] [address], [address], 12/24/2023 16:56:58 12/24/19 24 12/24/2023 LIPID PROFI LE cholesterol 107 mg/dL 0-199 normal IRMA STERO L (TOTA L) RANGE S KATHY ABLE: < 200 BORDE RLINE : 200 - 239 HIGHE R RISK: > 239 Not Available [facility] [address] [place] [address], [address], 12/24/2023 16:56:58 12/24/19 24 12/24/2023 LIPID PROFI LE LDL cholesterol 30 mg/dL _(adeline c) 0-99 normal LDL IRMA STERO L RANGE S OPTIM AL: < 100 NEAR/ ABOVE OPTIM AL: 100 - 129 BORDE RLINE HIGH: 130 - 159 HIGH: 160 - 189 VERY HIGH: > OR = 190 Not Available [facility] [address] [place] [address], [address], 12/24/2023 16:56:58 12/24/19 24 12/24/2023 BASIC METAB OLIC PANEL glucose 117 mg/dL 74-100 high Not Available [facility] [address] [place] [address], [address], 12/24/2023 16:57:00 12/24/19 24 12/24/2023 BASIC METAB OLIC PANEL blood urea nitrogen 17 mg/dL 6-20 normal Not Available [facility] [address] [place] [address], [address], 12/24/2023 16:57:00 12/24/19 24 12/24/2023 BASIC METAB OLIC PANEL creatinine 1.13 mg/dL 0.50-0 .95 high Not Available [facility] [address] [place] [address], [address], 12/24/2023 16:57:00 12/24/19 24 12/24/2023 BASIC METAB OLIC PANEL BUN/creatini ne ratio 15 (calc ) 10-20 normal Not Available [facility] [address] [place] [address], [address], 12/24/2023 16:57:00 12/24/19 24 12/24/2023 BASIC METAB OLIC PANEL sodium 139 mmol/ L 136-14 5 normal Not Available [facility] [address] [place] [address], [address], 12/24/2023 16:57:00 12/24/19 24 12/24/2023 BASIC METAB OLIC PANEL potassium 4.6 mmol/ L 3.4-5. 0 normal Not Available [facility] [address] [place] [address], [address], 12/24/2023 16:57:00 12/24/19 24 12/24/2023 BASIC METAB OLIC PANEL chloride 105 mmol/ L 98-107 normal Not Available [facility] [address] [place] [address], [address], 12/24/2023 16:57:00 12/24/19 24 12/24/2023 BASIC METAB OLIC PANEL carbon dioxide 24 mmol/ L 22-31 normal Not Available [facility] [address] [place] [address], [address], 12/24/2023 16:57:00 12/24/19 24 12/24/2023 BASIC METAB OLIC PANEL anion gap 10 (calc ) 7-25 normal Not Available [facility] [address] [place] [address], [address], 12/24/2023 16:57:00 12/24/19 24 12/24/2023 BASIC METAB OLIC PANEL calcium 9.3 mg/dL 8.6-10 .2 normal Not Available [facility] [address] [place] [address], [address], 12/24/2023 16:57:00 12/24/19 24 12/24/2023 BASIC METAB OLIC PANEL GFR 57 >= 60 abnormal NOT E New calcu latio n for GFR (CKD- EPI 2020) is formu lated witho ut race adjus tment facto rs at the [facility] menda tion of the [facility] . This calcu latio n has not been valid ated in pregn ant women . For pedia tric patie nts refer to [email or web address] :[email or web address] [email or web address] art/khris joy s/KDO QI/gf r_cal culat orPed Not Available [facility] [address] [place] [address], [address], 12/24/2023 16:57:00 12/24/19 24 12/24/2023 MICRO ALBUM IN/CR EAT RATIO microalbumin , random 12 mg/L 0-19 normal Not Available [facility] [address] [place] [address], [address], 12/24/2023 17:04:15 12/24/19 24 12/24/2023 MICRO ALBUM IN/CR EAT RATIO creatinine,u r,random 94 mg/dL normal NO JACK L RANGE ESTAB LISHE D FOR RANDO M URINE . Not Available [facility] [address] [place] [address], [address], 12/24/2023 17:04:15 12/24/19 24 12/24/2023 MICRO ALBUM IN/CR EAT RATIO MA/creatinin e ratio see below mcg/m g_cre at 0-29 normal Unabl e to calcu late micro album in/cr eatin ine ratio . Not Available [facility] [address] [place] [address], [address], 12/24/2023 17:04:15 12/24/19 24 12/24/2023 hemog lobin A1C, finge rstic k hemoglobin A1C % 9.6 % 4.0 - 5.6 Not Available [facility] [address] [place] [address], [address], 12/24/2023 14:59:59 12/24/19 24 12/24/2023 gluco se, finge rstic k, blood glucose, fingerstick 168 mg/dL 70 - 100 Not Available [facility] [address] [place] [address], [address], 12/24/2023 14:59:46 Result Notes None recorded. Problems No Known Problems Medical Equipment None Reported. Allergies Allergen ID Allergen Name Allergen Category Reaction Reaction Severity Criticality Documentation Date Start Date Code Code System Note Provider Name and Address Organization Details Recorded Time 838659 morphine sulfate medicatio n Not available Not available Not available 10/09/20162006 63335 RxNorm Comme nt: Creat ed By: Hoagl and Merib eth;C reate d Date: 2006 3:24: 04 PM; Not Available [facility] 6 11:27:47 856269 codeine medicatio n Not available Not available Not available 10/09/20162006 2670 RxNorm Comme nt: Creat ed By: Hoagl and Merib eth;C reate d Date: 2006 3:23: 21 PM; Not Available [facility] 6 13:16:43 805253 amoxicill in medicatio n Not available Not available Not available 06/12/2021 723 RxNorm Suzanna Mouser null, [facility] 14:18:35 [id number] acetamino phen / oxycodone medicatio n Not available Not available Not available 06/12/2021 35555 3 [facility] 14:18:[facility] Medications Name Sig Start [...] Updated DateTime 4 167.64 cm 46 kg/m2 540096. 83 g 95 /min 124 mm[Hg] 62 mm[Hg] Griselda [facility] 4 14:57:32 Date Recorded Body height Body mass index (BMI) Body weight Heart rate Systolic blood pressure Diastolic blood pressure Provider Name and Address Organization Details Last Updated DateTime 3 167.64 cm 46.8 kg/m2 605116. 79 g 83 /min 130 mm[Hg] 76 mm[Hg] Debra Reed [facility] 3 14:47:32 Date Recorded Body height Heart rate Systolic blood pressure Diastolic blood pressure Provider Name and Address Organization Details Last Updated DateTime 05/06/2023 167.64 cm 91 /min 130 mm[Hg] 62 mm[Hg] Geovani David [facility] 05/06/2023 14:16:53 Date Recorded Body height Heart rate Systolic blood pressure Diastolic blood pressure Provider Name and Address Organization Details Last Updated DateTime 09/02/2023 167.64 cm 90 /min 125 mm[Hg] 60 mm[Hg] Griselda [facility] 09/02/2023 14:18:55 Date Recorded Body height Body mass index (BMI) Body weight Heart rate Systolic blood pressure Diastolic blood pressure Provider Name and Address Organization Details Last Updated DateTime 2 167.64 cm 47.6 kg/m2 362033. 75 g 76 /min 106 mm[Hg] 62 mm[Hg] Suzanna Moore [facility] 2 14:06:58 Social History Question Answer Notes LastModified by Organizat ion Details LastModified Time Tobacco Smoking Status [facility]/12/2021 14:46:35 What Was The Date Of Your Most Recent Tobacco Screening? 10/09/2021 [email or web address] Information not available 10/09/2021 How Many Years Have You Smoked Tobacco? 25 [email or web address] Information not available 03/12/2021 Sex: Female Functional Status None recorded. Mental Status None recorded. Family History Nothing Reported. 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 Condition Response Heart Attack ([place]) Y Diabetes Y Gynecological HistoryNo gynecological history recorded. Obstetrics History GPAL:G 0 P 0 0 0 0 Past Encounters Encounter ID Performer Location Encounter Start Date Encounter Closed Date Diagnosis/Indication Diagnosis SNOMED-CT Code Diagnosis ICD10 Code Diagnosis Note [id number] ROBBY BARRAGAN MD [facility] [address] [place] [address] 03/12/2021 14:15:47 03/12/2021 16:29:29 Uncontrolled type 2 diabetes mellitus 952158842 E11.65 A1c in the office today of [...] diet. 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 Peripheral neuropathy due to type 2 diabetes mellitus [id number] 107 E11.42 Counseled about the importance of glycemic control to slow further progressio n of diabetic neuropathy /diabetic/ Charcot's joint obtained of a dilated. 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 adams office Emphasized on the importance of bringing her glucose meter with her to the office next office visit. Patient verbalized understand ing and agreed with the above mentioned plan of care. I would like to thank Dr. Lynch for the opportunit y to participat e in the care of this patient. [id number] ROBBY BARRAGAN MD [facility] [address] [place] [address] 06/12/2021 13:51:24 06/13/2021 10:27:33 Uncontrolled type 2 diabetes mellitus 577579192 E11.65 A1c in the office today of 7.8 up from 7.2% Random point-of-c are blood glucose 136 Goal A1c less than 7% Worsening glycemic control i.e. 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 Hyperlipidemia 38791930 E78.5 Lipid panel and LFTs today Further management to be determined as appropriat e Essential hypertension 89108240 I10 Blood pressure of 104/62Cont inue current regimen Urinary ACR BMB today Patient verbalized understand ing and agreed with the above mentioned plan of care. 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 [id number] ROBBY BARRAGAN MD [facility] [address] [place] [address] 01/08/2022 14:13:57 01/10/2022 13:07:42 Uncontrolled type 2 diabetes mellitus [id number] E11.65 A1c in the office today of [...] share her sensor data with our clinic. [id number] ROBBY BARRAGAN MD [facility] [address] [place] [address] 04/09/2022 13:51:39 04/09/2022 15:09:29 Uncontrolled type 2 diabetes mellitus [id number] E11.65 A1c in the office today of [...] her sensor data with our clinic. Hyperlipidemia 33887198 E78.5 Lipid panel and LFTs todayConti nue current rosuvastat in therapy Instructed about the importance of low-choles terol diet Further management to be determined as appropriat e Peripheral neuropathy due to type 2 diabetes mellitus [id number] 107 E11.42 Counseled about the importance of glycemic control to slow further progressio n of diabetic neuropathy /diabetic/ Charcot's jointConti nue to follow with podiatry Patient verbalized understand ing and agreed with the above mentioned plan of care. [id number] ROBBY BARRAGAN MD [facility] [address] [place] [address] 07/09/2022 14:17:43 07/09/2022 15:28:43 Uncontrolled type 2 diabetes mellitus 081599679 E11.65 A1c in the office today of [...] Blood pressure in the office today of María is currently on statin therapy [id number] ROBBY BARRAGAN MD [facility] [address] [place] [address] 09/23/2022 13:47:51 09/23/2022 15:29:28 Uncontrolled type 2 diabetes mellitus 089631271 E11.65 A1c in the office today of [...] Blood pressure in the office today of María is currently on statin therapy [id number] ROBBY BARRAGAN MD [facility] [address] [place] [address] 12/30/2022 14:34:01 12/30/2022 15:52:18 Uncontrolled type 2 diabetes mellitus 502843457 E11.65 A1c in the office today of [...] 118/66Shkaren is currently on statin therapy Hyperlipidemia 56080233 E78.5 Lipid panel and LFTsLabs to be done at an outside facility and faxed to our office for patient requestCon tinellen current rosuvastat in therapyIns tructed about the importance of low-choles terol dietFurthe r management to be determined as appropriat e [id number] ROBBY BARRAGAN MD [facility] [address] [place] [address] 05/06/2023 13:58:15 05/06/2023 14:58:33 Uncontrolled type 2 diabetes mellitus 263601232 E11.65 A1c in the office today of [...] 130/62She is currently on statin therapy Hyperlipidemia 87083890 E78.5 Lipid panel and LFTs from outside facility on 03/30/2023 reviewed [LDL of 97.8, triglyceri vivian of 234 and total cholestero l 164 and HDL cholestero l of 38.Continu e current rosuvastat in therapyIns tructed about the importance of low-choles terol dietPatien t verbalized understand ing and agreed with the above mentioned plan of care. [id number] ROBBY BARRAGAN MD [facility] [address] [place] [address] 09/02/2023 14:09:48 09/03/2023 04:53:33 Uncontrolled type 2 diabetes mellitus [id number] E11.65 A1c in the office today of [...] neuropathy due to type 2 diabetes mellitus 6427948299 107 E11.42 Severe peripheral neuropathy Counseled about the importance of glycemic control to slow further progressio n of diabetic neuropathy /diabetic/ Charcot's jointConti nue to follow with podiatry Hyperlipidemia 96819825 E78.5 Lipid panel and LFTs from outside facility on 03/30/2022 reviewed [LDL of 97.8, triglyceri vivian of 234 and total cholestero l 164 and HDL cholestero l of 38.Continu e current rosuvastat in therapyIns tructed about the importance of low-choles terol dietPatien t verbalized understand ing and agreed with the above mentioned plan of care. [id number] ROBBY BARRAGAN MD [facility] [address] [place] [address] 12/24/2023 14:47:11 12/24/2023 15:40:35 Uncontrolled type 2 diabetes mellitus 656640541 E11.65 A1c in the office today of [...] dilated eye exam i.e. Dr. adams Hyperlipidemia 57591981 E78.5 Lipid panel and LFTs from outside [...] neuropathy due to type 2 diabetes mellitus 0312035633 107 E11.42 Severe peripheral neuropathy Recounsele d about the importance of glycemic control to slow further progressio n of diabetic neuropathy /diabetic/ Charcot's jointConti nue to follow with podiatry Essential hypertension 31821128 I10 Blood pressure of 124/62Cont inue current [...] REPLACEMENT/AD VANTAGE - PPO) Bee B Isaiah [id number] Bee B Isaiah 12/23/2023 2 [facility]) [id number] Bee B Isaiah [id number] Bee B Isaiah 09/09/2024 1 [place] Bee B Isaiah [id number] Bee B Isaiah 09/09/2024 1 [place]MEDICARE REPLACEMENT HMO) [id number] Bee B Isaiah [id number] Bee B Isaiah Notes Date Note [...] left foot amputation. History of coronary artery disease/NV status post cardiac stenting. ROBBY BARRAGAN MD [address] [place] [address], [phone], [facility] 09/23/2022 14:40:38 12/30/2022 text/html 52-year-old female patient [...] left foot amputation. History of coronary artery disease/NV status post cardiac stenting. ROBBY BARRAGAN MD [address] [place] [address], [phone], [facility] 12/30/2022 15:49:32 05/06/2023 text/html 52-year-old female patient [...] with Dr. Solo podiatryHistory of coronary artery disease/NV status post cardiac stenting. ROBBY BARRAGAN MD [address] [place] [address], [phone], [facility] 05/06/2023 14:58:18 09/02/2023 text/html 53-year-old female patient [...] amputation.Right foot ulceration currently following with Dr. oSlo podiatry [healing closeHistory of coronary artery disease/NV status post cardiac stenting. ROBBY BARRAGAN MD [address] [place] [address], [phone], [facility] 09/02/2023 15:16:38 12/24/2023 text/html 53-year-old female patient [...] Solo podiatry [healing closeHistory of coronary artery disease/NV status post cardiac stenting. ROBBY BARRAGAN MD [address] [place], [phone], [facility] 12/24/2023 15:35:11 OBGyn Episode No OBEpisode recorded.
--- OUTSIDE RECORDS SUMMARY | 2025-05-08 13:33 | XMS_ITS ---
Author Organization [facility] Support Name Relationship Address Phone Isaiah, Sissy Guarantor [address] [place], [place] [phone] Isaiah, Sissy Agent [address] [place], [place] [address] Allergies and adverse reactions Code CodeSystem Substance Reaction Severity StartDate Concern Status 7804 RXNORM Oxycodone Skin reaction - finding (code- 514862597, SNOMED CT) Mild 04/15/2018 active Morphine and Related Nausea (code- 012043115, SNOMED CT) Mild 04/15/2018 active 2670 RXNORM Codeine Skin reaction - finding (code- 739513710, SNOMED CT) Mild 04/15/2018 active 723 RXNORM Amoxicillin Skin reaction - finding (code- 206668355, SNOMED CT) Mild 04/15/2018 active Immunizations Immunization Status Vaccine Details Vaccine Code CodeSystem Date Notes TB 1 Step Mantoux (PPD) completed tuberculin skin test; unspecified formulation lotNumber: [id number] expiry: 10/01/2020 Mfg: Tubersol Given 0.1 ml Right Forearm intradermally 98 CVX created date: 04/15/2018 consent date: 04/15/2018 administer ed date: 04/15/2018 resident left facility AMA on 04/15/18 Problems Problem # Description Date of onset Resolved Date Code CodeSystem Concern Status 1 CHARCOT'S JOINT, RIGHT ANKLE AND FOOT 04/15/[address] active 2 DERANGEMENT OF OTHER LATERAL MENISCUS DUE TO OLD TEAR OR INJURY, RIGHT KNEE 04/15/[address] active 3 ESSENTIAL (PRIMARY) HYPERTENSION 04/15/[address] active 4 OLD MYOCARDIAL INFARCTION 04/15/[address] active 5 OTHER OBESITY DUE TO EXCESS CALORIES 04/15/[address] active 6 PROLAPSE OF VAGINAL VAULT AFTER HYSTERECTOMY 04/15/[address] active 7 TYPE 2 DIABETES MELLITUS WITH FOOT ULCER 04/15/[address] active 8 VITAMIN D DEFICIENCY, UNSPECIFIED 04/15/[address] active Reason for Referral No Reasons for Referral Entered Social History Social History Observation Description Start Date End Date Code Code System Current Smoking Status Tobacco smoking consumption unknown 692880317 SNOMED CT Sex Assigned At Female 1970 00941-5 [facility] Gender Identity Vital Signs Code Code System Vitals Name Values and Units Timing Information 26164-8 [facility] Weight Sutwq=270.4 Units=Lbs 9279-1 [facility] Respiratory Rate Value=20.0 Units=/m in 04/15/2018 8462-4 [facility] Blood Pressure-Diastolic Value=70 Un its=mmHg 04/15/2018 8480-6 [facility] Blood Pressure-Systolic Ocovi=915 Un its=mmHg 04/15/2018 8310-5 [facility] Body Temperature Value=97.3 Units= F 04/15/2018 8867-4 [facility] Heart rate Value=98.0 Units=/min 8302-2 [facility] Height Value=66.0 Units=Inches 04/15/2018 39147-0 [facility] O2 % BldC Oximetry Value=96.0 Units= % 04/15/2018
[2025-05-08] MEDS: 0.9 % SODIUM CHLORIDE 1000ML 1,000 ML 999 ML IV (13:42)
[2025-05-08 13:47] LABS: Acetone, Serum (Rapid) None Detected (None Detect)
[2025-05-08 13:50] LABS: Potassium 7.5 mmoL/L (3.5-5.1)
[2025-05-08 14:03] LABS: Bacteria,Urine Trace /lpf; Squamous Epithelial Cell,Urine Occasional #/hpf (0-5)
[2025-05-08 14:04] LABS: NT Pro Brain Natriuretic Pep. 2280 pg/mL (0-125)
--- NOTE | 2025-05-08 14:06 | PC.NURSE ---
gave pt a blanket, was cold. no more needs at this time
[2025-05-08 14:10] LABS: Troponin I < 0.01 ng/ml (0.00-0.034)
[2025-05-08 14:11] LABS: Albumin Level 3.8 g/dl (3.5-5.0); Albumin/Globulin Ratio 1.1 (1.1-1.8); Globulin 3.6 g/dL (1.3-3.2)
[2025-05-08 14:34] LABS: Potassium 6.8 mmoL/L (3.5-5.1)
--- NOTE | 2025-05-08 14:39 | CT_ITS ---
FINAL REPORT TECHNIQUE: Noncontrast exam This study was performed with techniques to keep radiation doses as low as reasonably achievable, (ALARA). Individualized dose reduction techniques using automated exposure control or adjustment of mA and/or kV according to the patient's size were employed. CLINICAL HISTORY: Acute confusion COMPARISON: None FINDINGS: CT HEAD WITHOUT CONTRAST: Moderate changes of atrophy are noted as well as moderate changes of chronic microvascular disease. No acute intracranial abnormality is identified. There is been no significant change since the prior CT of 07/11/2023. Bone windows show no evidence of fracture. IMPRESSION: No acute findings Reviewed, Interpreted and Dictated by Armen Ortiz MD Transcribed by Sunitha Rebolledo Authenticated and [facility]
[2025-05-08 14:54] LABS: Procalcitonin 0.073 ng/mL (0.0-2.0)
[2025-05-08] MEDS: CALCIUM GLUC IN NACL, ISO-OSM 2 GM/100 ML BAG IV (14:55)
[2025-05-08] MEDS: DEXTROSE 50% 50ML SYRINGE (CRASH CART) 50 ML IVP ×3 (14:55→23:03)
[2025-05-08] MEDS: LOKELMA 5GM PACKET 10 GM PO ×2 (14:55→21:30)
[2025-05-08] MEDS: INSULIN HUMAN REGULAR 100 UNITS/ML 10ML VIAL 10 UNIT IVP ×3 (14:55→23:02)
[2025-05-08] MEDS: 0.9 % SODIUM CHLORIDE 50 ML VIAL IV (15:21)
[2025-05-08] MEDS: IOPAMIDOL-370 (76%);100ML BOTTLE 80 ML IV (15:21)
[2025-05-08] MEDS: SODIUM CHLORIDE 0.9% 10ML SYR (RAD ONLY) 10 ML IV (15:21)
[2025-05-08] MEDS: FUROSEMIDE 100MG/10ML VIAL 80 MG IV (15:27)
--- NOTE | 2025-05-08 15:33 | PC.NURSE ---
purewick placed at this time
--- NOTE | 2025-05-08 16:21 | PC.NURSE ---
notified house of admission
--- NOTE | 2025-05-08 16:40 | PC.NURSE ---
called report to juana gaviria on 2nd floor and answered all questions
--- NOTE | 2025-05-08 17:06 | PC.NURSE ---
arrived by stretcher from ED
[2025-05-08 18:05] LABS: Chloride 101 mmol/L (98-107); Sodium 136 mmol/L (136-145)
[2025-05-08 18:08] LABS: Blood Urea Nitrogen 20 mg/dl (7-17); Carbon Dioxide 25 mmol/L (22.0-30.0); Creatinine Clearance Estimated 38 mL/min (50-200); Estimated Glomerular Filt Rate 36 ml/min (>60); GFR (African American) 43 ML/MIN (>60)
[2025-05-08 18:09] LABS: Calcium 9.6 mg/dl (8.4-10.2); Glucose 151 mg/dl (74-100)
[2025-05-08 18:10] LABS: Anion Gap 16.4 mEq/L (5-15)
[2025-05-08 18:12] LABS: Potassium 6.4 mmoL/L (3.5-5.1)
--- NOTE | 2025-05-08 18:17 | PC.NURSE ---
AOX4 BUT EPISODES OF IMPULSIVENESS NOTED. SHE IS CURRENTLY IN BED FEEDING HERSELF INDEPENDENTLY. NO O2 SUPPORT REQUIRED AT THIS TIME. 1 LARGE BM NOTED IN BRIEF UPON ARRIVAL TO FLOOR FROM ER. PT BATHED AND PUREWICK PLACED UPON ARRIVAL.
--- NOTE | 2025-05-08 18:19 | EXP.HP ---
History of Present Illness *Admission Date: 05/08/25 *Reason for visit:: Confusion *History of present illness: Bee Colon is a 54-year-old female with a medical history significant for type 2 diabetes, hypertension, CAD, anxiety/depression, left BKA, recent fracture of right second toe with osteomyelitis s/p amputation who presents from nursing facility for apparent episodes of confusion. She states she was told she was messing with electrical cords, and speaking nonsensically. On my evaluation, patient seemed alert and oriented. Denies chest pain, shortness of breath, fever/chills. Patient recently had her right second toe amputated for osteomyelitis in the setting of fracture, discharged with 10 days of Bactrim with improvement of symptoms. Workup in the ED significant for creatinine 1.6 (baseline 1.0), potassium 7.5, BNP 2280. Vital signs stable. Patient was given regular insulin 10 units with D50, Lokelma 10 g, calcium gluconate 2 g with improvement in potassium to 6.8. Was given additional IV Lasix 80 mg with improvement in potassium to 6.4. Case discussed by ED provider admission was made to admit patient for NIKOLAI on CKD, hyperkalemia. [facility] Disclaimer: The information contained in this section may have been updated after the patient was seen, as this information can be updated by other users. 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 DKA (diabetic ketoacidosis) Fracture of toe of right foot Diarrhea Nausea & vomiting Typical angina Encounter for immunization Presence of external cardiac defibrillator Takotsubo cardiomyopathy Keratosis Encounter for wound care Pre-ulcerative calluses Diabetic foot Ulcer of right heel Fracture of foot with nonunion Retained orthopedic hardware Onychogryphosis Onychodystrophy Keratosis Ulcer of right foot due to type 2 diabetes mellitus Ulcer of left foot due to type 2 diabetes mellitus Type 2 diabetes mellitus with Charcot's joint of left foot Obesity, Class III, BMI 40-49.9 (morbid obesity) Migraine Osteoarthritis History of diverticulitis History of cataract History of left heart catheterization Recurrent major depression resistant to treatment Blood culture positive for microorganism Anemia HTN (hypertension) Type 2 diabetes mellitus with diabetic neuropathy, with long-term current use of insulin History of myocardial infarction Hyperlipemia CAD (coronary artery disease) Hx MRSA infection Essential hypertension Vitamin D deficiency Surgical History Status post foot surgery H/O shoulder surgery Hx of BKA History of appendectomy History of cholecystectomy History of hysterectomy History of hand surgery -bilateral hands History of foot surgery -on both feet -for Charcot's joint repairs Family History (Updated 05/08/25 @ 18:23 by Luna Rangel RN) Other Cancer Heart attack Hyperlipidemia Hypertension Stroke Social History Smoking Status: Never smoker smoking status stop date: 07/17/2023 second hand exposure: No alcohol intake: never counseling given: No substance use type: denies use counseling given: No current occupational status: disabled Travel in the last 8 weeks?: None adopted: No caregiver/support person: No foster care: No household members: children housing: house lives independently: Yes marital status: number of children: 1 number of grandchildren: 0 education level: high school 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; 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 current occupational exposures/hazards: Yes pets and animals: Yes pets and animals: cat(s) Hx Recent Travel: No sexually active: No caffeine: Yes physical activity: none dyana/judaism: Shinto special dyana needs: No working smoke detector in home: Yes fire extinguisher in home: Yes carbon monox detector in home: Yes firearms in home: No do you feel safe at home: Yes victim of physical abuse: No victim of emotional abuse: No victim of sexual abuse: No would you like helpful sources: No Other 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 Have you received the Flu Vaccine for this season: No Have you received the Pneumonia Vaccine: No Meds Home Medications and Allergies Home Medications ?Medication ?Instructions ?Recorded ?Confirmed ?Type aspirin 81 mg chewable tablet 81 mg PO DAILY [facility] #90 12/12/24 05/08/25 Rx tabs isosorbide mononitrate 60 mg 60 mg PO DAILY #90 tabs 12/12/24 05/08/25 Rx tablet,extended release 24 hr metoprolol tartrate 100 mg tablet 100 mg PO BID #180 tabs 12/12/24 05/08/25 Rx ramipril 5 mg capsule 5 mg PO DAILY #90 caps 12/12/24 05/08/25 Rx spironolactone 25 mg tablet 25 mg PO DAILY #90 tabs 12/12/24 05/08/25 Rx dapagliflozin propanediol 10 mg 10 mg PO DAILY #90 tabs 01/16/25 05/08/25 Rx tablet ranolazine 1,000 mg 1,000 mg PO BID #60 tabs 01/16/25 05/08/25 Rx tablet,extended release,12 hr duloxetine 60 mg capsule,delayed 60 mg PO BID #180 caps 01/31/25 05/08/25 Rx release insulin syringe-needle U-100 0.5 #500 ea 01/31/25 05/08/25 Rx mL 31 gauge x 5/16 (Sure Comfort Insulin Syringe) tramadol 50 mg tablet 50 mg PO Q6H PRN breakthrough 01/31/25 05/08/25 Rx pain, moderate #120 tabs trazodone 100 mg tablet 100 mg PO HS #90 tabs 02/01/25 05/08/25 Rx ezetimibe 10 mg tablet 10 mg PO HS #90 tabs 02/07/25 05/08/25 Rx pen needle, diabetic 31 gauge x #1,200 ea 02/07/25 05/08/25 Rx 5/16 (Unifine Pentips) rivaroxaban 2.5 mg tablet (Xarelto) 2.5 mg PO BIDWMEAL #60 tabs 02/07/25 05/08/25 Rx insulin aspart U-100 100 unit/mL 18 unit (0.18 mL) SQ TID #45 mL 03/15/25 05/08/25 Rx (3 mL) subcutaneous pen (Novolog FlexPen U-100 Insulin aspart) pregabalin 200 mg capsule 200 mg PO BID #180 caps 04/20/25 05/08/25 Rx hydroxyzine HCl 25 mg tablet 25 mg PO HS 04/25/25 05/08/25 History atorvastatin 40 mg tablet 40 mg PO HS #30 tabs 04/28/25 05/08/25 Rx insulin glargine 100 unit/mL (3 60 unit (0.6 mL) SQ BID #12 mL 04/28/25 05/08/25 Rx mL) subcutaneous pen insulin lispro 100 unit/mL 1 sliding scale dose SQ ACHS #10 mL 04/28/25 05/08/25 Rx subcutaneous solution (Humalog U-100 Insulin) metformin 500 mg tablet 500 mg PO BIDWMEAL 30 days #60 tabs 04/28/25 05/08/25 Rx polyethylene glycol 3350 17 gram 17 g PO DAILY #30 ea 04/28/25 05/08/25 Rx oral powder packet (HealthyLax) sulfamethoxazole 800 1 tab PO BID #20 tabs 04/28/25 05/08/25 Rx mg-trimethoprim 160 mg tablet (Bactrim DS) blood-glucose sensor (Dexcom G7 #3 ea 05/01/25 05/08/25 Rx Sensor device) New Prescriptions to Start Prescriptions: Allergies Allergy/AdvReac Type Severity Reaction Status Date / Time clopidogrel (From Plavix) Allergy Severe Hives Verified 05/04/25 15:46 amoxicillin (AMOXICILLIN) Allergy Unknown Unknown Verified 05/04/25 15:46 allergy reaction codeine (CODEINE) AdvReac Mild STOMACH Verified 05/04/25 15:46 CRAMPS morphine (MORPHINE) AdvReac Mild STOMACH Verified 05/04/25 15:46 CRAMPS oxycodone (From Percocet) AdvReac Mild STOMACH Verified 05/04/25 15:46 CRAMPS Exam Data for Last 24 hours Vital signs and Labs for Last 24 Hours: Temp Pulse Resp BP Pulse Ox O2 Del Method 98.2 F 70 16 139/78 97 Room Air 05/08/25 16:43 05/08/25 16:43 05/08/25 16:43 05/08/25 16:43 05/08/25 16:15 05/08/25 18:16 Laboratory Results - last 24 hr 05/08/25 12:25: Urine Color Yellow, Urine Appearance Clear, Urine pH 8.0, Ur Specific Sigel 1.015, Urine Protein Negative, Urine Glucose (UA) 3+, Urine Ketones Negative, Urine Blood 1+ A, Urine Nitrate Negative, Urine Bilirubin Negative, Urine Urobilinogen 0.2, Ur Leukocyte Esterase Negative, Urine RBC 3-5, Urine WBC None, Ur Squamous Epith Cells Occasional, Urine Bacteria Trace 05/08/25 13:12: WBC 11.1 H, RBC 4.20, Hgb 11.6 L, Hct 37.0, MCV 88.1, MCH 27.6, MCHC 31.4 L, RDW 15.8, Plt Count 250, MPV 10.5 H, Neut % (Auto) 71.6, Lymph % (Auto) 16.8, Grant % (Auto) 7.9, Eos % (Auto) 3.0, Baso % (Auto) 0.4, Neut # (Auto) 8.0 H, Lymph # (Auto) 1.9, Grant # (Auto) 0.9, Eos # (Auto) 0.3, Baso # (Auto) 0.0, Sodium 134 L, Potassium 7.5 H*, Chloride 102, Carbon Dioxide 25, Anion Gap 14.5, BUN 20 H, Creatinine 1.60 H, Estimated GFR 33 L, Est GFR ( Amer) 40 L, Glucose 172 H, Calcium 9.3, Total Bilirubin 0.3, AST 27, ALT 18, Alkaline Phosphatase 72, Troponin I < 0.01, NT-Pro-B Natriuret Pep 2280 H, Total Protein 7.4, Albumin 3.8, Globulin 3.6 H, Albumin/Globulin Ratio 1.1, Procalcitonin 0.073, Acetone Level None detected 05/08/25 14:17: Potassium 6.8 H* 05/08/25 17:53: Sodium 136, Potassium 6.4 H*, Chloride 101, Carbon Dioxide 25, Anion Gap 16.4 H, BUN 20 H, Creatinine 1.50 H, Estimated Creat Clear 38, Estimated GFR 36 L, Est GFR ( Amer) 43 L, Glucose 151 H, Calcium 9.6 I & O for Last 24 hours: Intake & Output 05/05/25 05/06/25 05/07/25 05/08/25 23:59 23:59 23:59 23:59 Weight 158.757 kg Constitutional Constitutional: no acute distress and obese *Routine HEENT Exam Head: Present normocephalic Eye: Present EOMI and PERRL ENT: Present mucous membranes moist *Routine Neck Exam Neck: Present supple; Absent lymphadenopathy *Routine Respiratory Exam Respiratory: Present CTA bilaterally *Routine Cardiovascular Exam Cardiovascular: Present RRR *Routine Abdominal Exam Abdominal: Present soft and normoactive bowel sounds; Absent tenderness *Routine Rectal Exam Rectal:: deferred *Routine Genitalia Exam Genitalia:: deferred *Routine Extremities Exam Extremities: Absent cyanosis, clubbing or edema Comments: Left BKA. Right second toe amputation with sutures in place without erythema or tenderness. *Routine Skin Exam Skin: Present warm; Absent rash *Routine Neurological Exam Neurological: Present alert and oriented X3 Assessment and Plan *Assessment and plan (1) Acute confusion: Status: Acute Category: Medical Code(s): R41.0 - Disorientation, unspecified (2) Acute nontraumatic kidney injury: Status: Acute Category: Medical Code(s): N17.9 - Acute kidney failure, unspecified Plan Bee Colon is a 54-year-old female with a medical history significant for type 2 diabetes, hypertension, CAD, anxiety/depression, left BKA, recent fracture of right second toe with osteomyelitis s/p amputation who presents from nursing facility for apparent episodes of confusion. She states she was told she was messing with electrical cords, and speaking nonsensically. On my evaluation, patient seemed alert and oriented. Denies chest pain, shortness of breath, fever/chills. Patient recently had her right second toe amputated for osteomyelitis in the setting of fracture, discharged with 10 days of Bactrim with improvement of symptoms. Workup in the ED significant for creatinine 1.6 (baseline 1.0), potassium 7.5, BNP 2280. Vital signs stable. Patient was given regular insulin 10 units with D50, Lokelma 10 g, calcium gluconate 2 g with improvement in potassium to 6.8. Was given additional IV Lasix 80 mg with improvement in potassium to 6.4. Case discussed by ED provider admission was made to admit patient for NIKOLAI on CKD, hyperkalemia. #Acute metabolic encephalopathy, resolved #NIKOLAI on CKD stage III #Hyperkalemia #Medication side effect ? Sent to ED from nursing facility for confusion, which seems to have resolved in the setting of improving hyperkalemia. ? Initial potassium 7.4, improved to 6.4 with insulin, D50, Lokelma, Lasix. ? NIKOLAI, hyperkalemia likely as a result of concomitant Bactrim (for the past 10 days), ramipril, spironolactone. ? Ordered additional IV regular insulin 10 units, D50 x 1. Follow-up repeat BMP at 9 PM. ? Started Lokelma 10 g 3 times daily, sodium bicarb 1300 mg 3 times daily. ? Patient has finished her course of Bactrim. ? Hold ramipril, spironolactone, and any other nephrotoxic medications at this time. #Elevated BNP ? BNP initially 2280. No significant signs of volume overload. ? Follow-up ECHO. #Type 2 diabetes ? Hemoglobin A1c 12.9%. ? HD SSI, ACHS glucose checks. ? Continue home Lantus 60 units twice daily. Hold home metformin, Farxiga due to NIKOLAI. #Anxiety/depression ? Continue home duloxetine, hydroxyzine. #CAD #PAD ? Continue home aspirin, Xarelto. Hold home statin due to NIKOLAI. #Right second toe amputation due to osteomyelitis, fracture ? Sutures in place. No signs of infection. Will reach out to orthopedic surgery to inquire about suture removal. Full code DVT prophylaxis: Home Xarelto
[2025-05-08] MEDS: TRAZODONE 50MG TABLET 100 MG PO (21:29)
[2025-05-08] MEDS: PREGABALIN 100MG CAPSULE 100 MG PO (21:30)
[2025-05-08] MEDS: hydrOXYzine pamoate 25MG CAPSULE 25 MG PO (21:30)
[2025-05-08] MEDS: humaLOG 100 UNITS/ML 10ML VIAL (SSI) SUBCUT (21:31)
[2025-05-08] MEDS: INSULIN GLARGINE 100 UNITS/ML 3ML FLEXPEN 60 UNIT SUBCUT (21:31)
[2025-05-08 22:13] LABS: Chloride 102 mmol/L (98-107); Sodium 133 mmol/L (136-145)
[2025-05-08 22:17] LABS: Blood Urea Nitrogen 20 mg/dl (7-17); Calcium 9.2 mg/dl (8.4-10.2); Creatinine Clearance Estimated 32 mL/min (50-200); Estimated Glomerular Filt Rate 31 ml/min (>60); GFR (African American) 38 ML/MIN (>60); Glucose 168 mg/dl (74-100)
[2025-05-08 22:18] LABS: Potassium 6.4 mmoL/L (3.5-5.1)
[2025-05-08 22:28] LABS: Anion Gap 14.4 mEq/L (5-15); Carbon Dioxide 23 mmol/L (22.0-30.0)
[2025-05-09] VITALS (9 sets, daily range): BP systolic 105–137; BP diastolic 57–76; PULSE 80–100; RESP 16–22; TEMP 36.6–36.9; O2SAT 92–96; BMI 46.4
[2025-05-09 00:57] LABS: POC Glucose,Bedside 129 (70-110)
[2025-05-09 00:59] LABS: POC Glucose,Bedside 173 (70-110)
[2025-05-09 01:57] LABS: Anion Gap 7.8 mEq/L (5-15); Blood Urea Nitrogen 20 mg/dl (7-17); Calcium 10.2 mg/dl (8.4-10.2); Carbon Dioxide 27 mmol/L (22.0-30.0); Chloride 104 mmol/L (98-107); Creatinine Clearance Estimated 29 mL/min (50-200); Estimated Glomerular Filt Rate 27 ml/min (>60); GFR (African American) 33 ML/MIN (>60); Glucose 117 mg/dl (74-100); Potassium 5.8 mmoL/L (3.5-5.1); Sodium 133 mmol/L (136-145)
--- NOTE | 2025-05-09 04:52 | PC.NURSE ---
Pt. was admitted yesterday with AMS, Hyperkalemia, NIKOLAI, CKD. Pt. is alert and orientated x 4, can answer questions appropriately but has periods of confusion. Pt. has been awake all night. Pt. has been very fidgety and talkative all night. Pt. having conversations with people who are not in the room. She said she was talking to her sister who was sitting in the chair, on top of the TV and on the ceiling. Pt. in constant motion. Pt. denies pain or SOB. Pt. on room air. Pt. treated for high potassium overnight and it is trending down. Pt. having trouble dring from a straw kept missing her mouth when trying to drink. Pt. having intermittant jerky movements. Pt. throwing blankets and pillows on the floor. Pt. has a purewick in place and has good urine output. Personal items and call han in reach. Bed alarm on. Safety measures in place.
[2025-05-09 06:00] LABS: POC Glucose,Bedside 99 (70-110)
--- NOTE | 2025-05-09 06:00 | CA_ITS ---
APPROVED REPORT EXAM: Comprehensive 2D, Doppler, and color-flow Echocardiogram Assembler Dc Field Yoke: Aracely Sifuentes CRT Ht: 5 ft 5 in Wt: 275lbs BSA: 2.26 BP: 139/78 mmHg Indications: Congestive Heart Failure, Diabetes, Hyperlipidemia, Hypertension/HDD Echo Enhancing Agent Indication: Endocardial border delineation Agent(s) / Amount(s) Used: Definity 2 cc Comments: definity given M-Mode Dimensions RVDd 2.41 cm (0.9-2.6) LA Diam 3.40 cm (1.9-4.0) LVDd 5.26 cm (3.5-5.7) LVDs 3.98 cm (3.5-5.7) IVSd 1.89 cm (0.6-1.1) PWd 1.00 cm (0.6-1.1) EF (Teich) 48.00% FS 24.30% EDV (Teich) 133.00 mL ESV (Teich) 69.20 mL Tricuspid Valve TR P. Velocity 167.00 cm/s RAP Estimate 10.00 mmHg RVSP 21.20 mmHg Left Ventricle The left ventricle is normal size. The left ventricular systolic function is normal. The left ventricular ejection fraction is within the normal range. There is increased LV wall thickness. Regional wall motion cannot be well-evaluated due to technically difficult study. Diastolic function is indeterminate. LVEF is 55-60%. Right Ventricle The right ventricle is not well-visualized. Atria The left and right atria are not well-visualized. The aortic valve is mildly thickened. Aortic Valve There is no aortic valvular stenosis. No aortic regurgitation is present. Mitral Valve The mitral valve is normal in structure. No evidence of mitral valve stenosis. There is no mitral valve regurgitation noted. Tricuspid Valve Tricuspid valve is grossly normal in structure and function. Trace tricuspid regurgitation. There is insufficient TR jet to estimate RVSP. Pulmonic Valve The pulmonary valve is normal in structure. Trace pulmonic regurgitation. Great Vessels The aortic root is normal in size. The IVC is not well-visualized. Pericardium There is no pericardial effusion. Other Information Study Quality: Technically Difficult Conclusion Technically difficult study due to poor acoustic windows. Grossly, normal LV systolic size and function. The right ventricle and both atria are not well-visualized. No significant valvular stenosis or regurgitation. Electronically signed by : Johanna Cary MD 05/09/2025 10:28:35
[2025-05-09 06:29] LABS: Basophils # 0.1 K/mm3 (0-0.2); Basophils % 0.6 % (0.1-2.0); Eosinophils # 0.6 Kmm3 (0.0-0.4); Eosinophils % 5.5 % (0.1-12.0); Hematocrit 35.9 % (37.0-47.0); Hemoglobin 11.1 g/dL (12.2-16.2); Immature Granulocytes # 0.04 10^3uL; Immature Granulocytes % 0.4 %; Lymphocytes % 28.4 % (10-50); Mean Corpuscular HGB Conc 30.9 g/dL (31.8-35.4); Mean Corpuscular Hemoglobin 27.1 pg (27.0-31.2); Mean Corpuscular Volume 87.6 fl (81-99); Monocytes % 9.5 % (1.7-9.3); Neutrophils # 5.8 K/mm3 (1.8-7.8); Neutrophils % 55.6 % (37.0-80.0); Nucleated Red Blood Cells # 0 10^3/uL; Nucleated Red Blood Cells % 0 %; Platelet Count 236 K/mm3 (142-424); Red Cell Distribution Width 15.7 % (11.5-17.5); Red Cell Distribution Width-SD 50.5 fL; White Blood Count 10.4 K/mm3 (4.8-10.8)
[2025-05-09 06:55] LABS: Albumin Level 3.5 g/dl (3.5-5.0); Chloride 102 mmol/L (98-107); Potassium 5.9 mmoL/L (3.5-5.1); Sodium 135 mmol/L (136-145)
[2025-05-09 06:57] LABS: Blood Urea Nitrogen 21 mg/dl (7-17); Creatinine Clearance Estimated 32 mL/min (50-200); Estimated Glomerular Filt Rate 31 ml/min (>60); GFR (African American) 38 ML/MIN (>60)
[2025-05-09 06:58] LABS: Alanine Aminotransferase 14 U/L (12-78); Albumin/Globulin Ratio 1.1 (1.1-1.8); Alkaline Phosphatase 56 U/L (38-126); Anion Gap 13.9 mEq/L (5-15); Aspartate Amino Transferase 29 U/L (14-36); Bilirubin,Total 0.4 mg/dl (0.2-1.3); Calcium 9.4 mg/dl (8.4-10.2); Carbon Dioxide 25 mmol/L (22.0-30.0); Globulin 3.3 g/dL (1.3-3.2); Glucose 103 mg/dl (74-100); Magnesium 1.7 mg/dl (1.6-2.3); Total Protein,Serum 6.8 g/dl (6.3-8.2)
[2025-05-09] MEDS: DEFINITY US ECHO CONTRAST 2ML INJ 2 MG IV (07:16)
--- NOTE | 2025-05-09 07:44 | SW/DCPLANNER ---
Addendum entered by Chrissy Elias 05/11/25 09:19: Per Liza FUENTES patient has been approved SNF level of care and will discharge today. Addendum entered by Chrissy Elias 05/10/25 10:58: Per Liza patient will require new auth prior to returning. Liza confirmed that auth will be started this AM. I have informed Liza pending 12PM labs patient may be ready for discharge this afternoon. Original Note: Patient currently resides at [facility] level of care. Updated patient information faxed to Liza FUENTES. I will continue to follow up.
--- NOTE | 2025-05-09 07:54 | P.CONPHA_ITS ---
Pharmacy Intervention Comments: MEDICATION RECONCILIATION COMPLETED ON PATIENT USING MAR FROM [facility]. -TANVI GRAY, MONAD
--- NOTE | 2025-05-09 07:54 | HMH.PHAINT1 ---
Pharmacy Intervention Comments: MEDICATION RECONCILIATION COMPLETED ON PATIENT USING MAR FROM [facility]. -TANVI GRAY, MONAD
[2025-05-09] MEDS: ISOSORBIDE MONO 60MG TAB.ER.24H 60 MG PO (08:21)
[2025-05-09] MEDS: LOKELMA 5GM PACKET 10 GM PO ×2 (08:21→12:00)
[2025-05-09] MEDS: SODIUM BICARBONATE 650MG TABLET 1300 MG PO ×3 (08:21→20:41)
[2025-05-09] MEDS: METOPROLOL TARTRATE 50MG TABLET 100 MG PO ×2 (08:21→20:41)
[2025-05-09] MEDS: ASPIRIN 81MG CHEWABLE TABLET 81 MG PO (08:21)
[2025-05-09] MEDS: POLYETHYLENE GLYCOL 3350 17 GM PACKET PO (08:21)
[2025-05-09] MEDS: RIVAROXABAN 2.5MG TABLET 2.5 MG PO ×2 (08:21→16:12)
[2025-05-09] MEDS: PREGABALIN 100MG CAPSULE 100 MG PO (08:21)
[2025-05-09] MEDS: SODIUM POLY SULFON 15GM/60ML ORAL.SUSP 15 GM PO ×3 (08:32→20:41)
[2025-05-09] MEDS: TRAMADOL 50MG TABLET 50 MG PO (08:47)
--- NOTE | 2025-05-09 09:31 | HMH.PTEV ---
Physical Therapy Evaluation Rehab PT IP Evaluation Start: 05/08/25 18:55 Freq: ONCE Status: Active Protocol: Document 05/09/25 09:28 THOMAS (Rec: 05/09/25 09:31 THOMAS [id number]) Subjective/History History History Per H&P: Bee Colon is a 54-year-old female with a medical history significant for type 2 diabetes, hypertension, CAD, anxiety/depression, left BKA, recent fracture of right second toe with osteomyelitis s/p amputation who presents from nursing facility for apparent episodes of confusion. She states she was told she was messing with electrical cords, and speaking nonsensically. On my evaluation, patient seemed alert and oriented. Denies chest pain, shortness of breath, fever/chills. Patient recently had her right second toe amputated for osteomyelitis in the setting of fracture, discharged with 10 days of Bactrim with improvement of symptoms. Workup in the ED significant for creatinine 1.6 (baseline 1.0), potassium 7.5, BNP 2280. Vital signs stable. Patient was given regular insulin 10 units with D50, Lokelma 10 g, calcium gluconate 2 g with improvement in potassium to 6.8. Was given additional IV Lasix 80 mg with improvement in potassium to 6.4. Case discussed by ED provider admission was made to admit patient for NIKOLAI on CKD, hyperkalemia. Subjective Subjective Pt is confused. Poor historian at this time. Pt was at a custodial receiving rehab prior to admission. Pt usually lives alone and is IND per her report. New diagnosis of No cancer in past 12 months? [facility] How much help from another person do you currently need... Turning from your A little back to your side while in a flat bed without using bedrails? Moving from lying on A little back to sitting on the side of a flat bed without using bedrails? Moving to and from a A lot bed to a chair ( including a wheelchair)? Standing up from a A lot chair using your arms? (e.g., wheelchair, bedside chair) Walking in hospital A lot room? Climbing 3-5 steps A lot with a railing? Mobility Score 14 Mobility Level [facility] Mobility 4 Move to chair/commode Mobility Calculator Rehab PT IP Eval Objective Appearance Patient Behavior Wandering,Confused Patient Orientation Person Difficulty following none instructions Speech Pattern Rambling Ambulation Patient Able to No Ambulate Balance Ability to Arise Able, uses arms to help Sitting Balance Steady, safe Transfers Bed Transfer Ability Minimal x 1 (25% assist) Rehab PT IP prob,goals,plan Problems Date of Evaluation: 05/09/25 PT IP Problems Bed Mobility,Transfers,Gait,Balance,Self care,Safety Plan PT Intervention Plan Bed Mobility,Transfers,Gait,Balance,Self care,Safety, Therapeutic Exercise Other Intervention 1-2 times Plan PT Plan Frequency Daily Duration LOS Discharge Goals Bed Transfer Ability Supervision/Stand by Sit to Stand Chair Maximum x 2 (75% assist) Transfer Ability Discharge Plan PT Discharge Plan Pt most appropriate for skilled inpatient rehab placement d/t level of mobility. Pt would benefit from skilled acute care PT while at [facility] to prevent further functional decline. Eval Complexity Eval Charge Codes 35993 - Moderate Complexity PHYSICIAN CERTIFICATION: I certify the specified therapy services for Bee Colon are required, authorized, and reviewed every 30 days.
[2025-05-09] MEDS: MAGNESIUM SULFATE IN WATER 2 GM/50 ML PIGGYBACK IV ×2 (09:39→10:37)
[2025-05-09 10:07] LABS: POC Glucose,Bedside 143 (70-110)
[2025-05-09 12:12] LABS: Chloride 101 mmol/L (98-107); Sodium 135 mmol/L (136-145)
[2025-05-09 12:15] LABS: Anion Gap 16.6 mEq/L (5-15); Blood Urea Nitrogen 18 mg/dl (7-17); Calcium 9.3 mg/dl (8.4-10.2); Carbon Dioxide 24 mmol/L (22.0-30.0); Creatinine Clearance Estimated 34 mL/min (50-200); Estimated Glomerular Filt Rate 33 ml/min (>60); GFR (African American) 40 ML/MIN (>60); Glucose 140 mg/dl (74-100)
[2025-05-09 12:20] LABS: Potassium 6.6 mmoL/L (3.5-5.1)
[2025-05-09] MEDS: DEXTROSE 50% 50ML SYRINGE (CRASH CART) 50 ML IVP (12:51)
[2025-05-09] MEDS: INSULIN HUMAN REGULAR 100 UNITS/ML 10ML VIAL 10 UNIT IVP (12:51)
[2025-05-09] MEDS: ALBUTEROL 0.083% 2.5 MG/3 ML NEB 10 MG IH (13:24)
--- NOTE | 2025-05-09 13:27 | PC.NURSE ---
RESP CARE NOTE: Albuterol given per physician order, after clarification per pharmacy. 10 mg Albuterol could not be given within 10 min time frame, due to available Albuterol dose. Will continue to monitor patient.
--- NOTE | 2025-05-09 14:04 | P.PN_ITS ---
<Statement entered by Angel Barry MD - 05/10/25 22:21> Evaluated by the patient and agree with plan of care as outlined by the DIRECT SUPPORT STAFF. Subjective *Date: 05/09/25 *Time: 15:01 Interval history: Patient is resting in bed with her eyes closed, arousable to speech. She is having tardive dyskinesia symptoms. She also is confused, unable to tell me her birthday or where she is. She is able to tell me her name. Potentially a side effect of polypharmacy or hyperkalemia. Medical Exam Vital signs and Labs for Last 24 Hours: Vital Signs Temp Pulse Pulse Resp BP BP Pulse Ox 05/09/25 13:26 88 05/09/25 13:26 80 05/09/25 13:00 05/09/25 12:00 80 05/09/25 12:00 98.5 F 84 20 137/73 94 L 05/09/25 10:43 05/09/25 08:50 05/09/25 08:00 100 H 05/09/25 08:00 05/09/25 07:56 98.5 F 88 22 116/76 95 05/09/25 06:55 05/09/25 05:00 05/09/25 04:00 98.0 F 83 18 116/64 96 05/09/25 03:00 05/09/25 01:00 05/09/25 00:00 97.8 F 83 18 107/67 L 96 05/09/25 00:00 80 05/08/25 23:00 05/08/25 21:00 05/08/25 20:00 80 05/08/25 20:00 75 05/08/25 20:00 96 05/08/25 20:00 98.4 F 83 16 108/86 L 96 05/08/25 18:16 05/08/25 18:08 78 05/08/25 17:44 98.2 F 75 20 114/66 92 L 05/08/25 17:00 05/08/25 16:43 98.2 F 70 16 139/78 05/08/25 16:31 05/08/25 16:15 80 18 139/63 97 05/08/25 15:34 78 20 118/57 L 96 05/08/25 15:01 82 16 125/60 96 05/08/25 14:31 79 16 128/61 96 O2 Del Method 05/09/25 13:26 05/09/25 13:26 05/09/25 13:00 Room Air 05/09/25 12:00 05/09/25 12:00 Room Air 05/09/25 10:43 Room Air 05/09/25 08:50 Room Air 05/09/25 08:00 05/09/25 08:00 Room Air 05/09/25 07:56 Room Air 05/09/25 06:55 Room Air 05/09/25 05:00 Room Air 05/09/25 04:00 Room Air 05/09/25 03:00 Room Air 05/09/25 01:00 Room Air 05/09/25 00:00 Room Air 05/09/25 00:00 05/08/25 23:00 Room Air 05/08/25 21:00 Room Air 05/08/25 20:00 05/08/25 20:00 05/08/25 20:00 Room Air 05/08/25 20:00 Room Air 05/08/25 18:16 Room Air 05/08/25 18:08 05/08/25 17:44 Room Air 05/08/25 17:00 Room Air 05/08/25 16:43 Room Air 05/08/25 16:31 Room Air 05/08/25 16:15 05/08/25 15:34 05/08/25 15:01 05/08/25 14:31 Intake and Output 05/08/25 05/09/25 05/09/25 23:59 07:59 15:59 Intake Total 120 / 1220 1100 / 1200 100 / 1200 Output Total 1550 / 1550 750 / 750 0 / 750 Balance -1430 / -330 350 / 450 100 / 450 Intake: Intake, Oral Amount 120 / 120 Intake, Total IV Amount 1100 / 1200 100 / 1200 0.9 % Sodium Chloride 1000ML 1, 1000 / 1000 000 ml @ 999 mls/hr IV .Q1H1M ONE Rx#:[id number] Calcium Gluc in NaCl, Iso-Osm 2 100 / 100 gm In 100 ml @ 50 mls/hr IV ONCE ONE Rx#:[id number] Magnesium Sulfate in Water 2 gm 100 / 100 In 50 ml @ 50 mls/hr IV Q1H PETE Rx#:[id number] Output: Output, Urine Amount 1550 / 1550 750 / 750 0 / 750 Other: Number of Voids 0 Number of Unmeasured Voids 1 0 1 Number of Bowel Movements 1 Weight 130.181 kg 126.371 kg Patient Weight 05/09/25 23:59 Weight 126.371 kg Laboratory Results - last 24 hr 05/08/25 13:12: Troponin I < 0.01, NT-Pro-B Natriuret Pep 2280 H, Albumin 3.8, Globulin 3.6 H, Albumin/Globulin Ratio 1.1, Procalcitonin 0.073, Acetone Level None detected 05/08/25 14:17: Potassium 6.8 H* 05/08/25 17:53: Sodium 136, Potassium 6.4 H*, Chloride 101, Carbon Dioxide 25, Anion Gap 16.4 H, BUN 20 H, Creatinine 1.50 H, Estimated Creat Clear 38, Estimated GFR 36 L, Est GFR ( Amer) 43 L, Glucose 151 H, Calcium 9.6 05/08/25 21:13: POC Glucose 173 H 05/08/25 21:58: Sodium 133 L, Potassium 6.4 H*, Chloride 102, Carbon Dioxide 23, Anion Gap 14.4, BUN 20 H, Creatinine 1.70 H, Estimated Creat Clear 32, Estimated GFR 31 L, Est GFR ( Amer) 38 L, Glucose 168 H, Calcium 9.2 05/09/25 00:50: POC Glucose 129 H 05/09/25 01:38: Sodium 133 L, Potassium 5.8 H, Chloride 104, Carbon Dioxide 27, Anion Gap 7.8, BUN 20 H, Creatinine 1.90 H, Estimated Creat Clear 29, Estimated GFR 27 L, Est GFR ( Amer) 33 L, Glucose 117 H D, Calcium 10.2 05/09/25 05:21: WBC 10.4, RBC 4.10 L, Hgb 11.1 L, Hct 35.9 L, MCV 87.6, MCH 27.1, MCHC 30.9 L, RDW 15.7, Plt Count 236, MPV 11.0 H, Neut % (Auto) 55.6, Lymph % (Auto) 28.4, [place] % (Auto) 9.5 H, Eos % (Auto) 5.5, Baso % (Auto) 0.6, Neut # (Auto) 5.8, Lymph # (Auto) 3.0, [place] # (Auto) 1.0, Eos # (Auto) 0.6 H, Baso # (Auto) 0.1, Sodium 135 L, Potassium 5.9 H, Chloride 102, Carbon Dioxide 25, Anion Gap 13.9, BUN 21 H, Creatinine 1.70 H, Estimated Creat Clear 32, Estimated GFR 31 L, Est GFR ( Amer) 38 L, Glucose 103 H, Calcium 9.4, Magnesium 1.7, Total Bilirubin 0.4, AST 29, ALT 14, Alkaline Phosphatase 56, Total Protein 6.8, Albumin 3.5, Globulin 3.3 H, Albumin/Globulin Ratio 1.1 05/09/25 05:46: POC Glucose 99 05/09/25 10:00: POC Glucose 143 H 05/09/25 12:00: Sodium 135 L, Potassium 6.6 H*, Chloride 101, Carbon Dioxide 24, Anion Gap 16.6 H, BUN 18 H, Creatinine 1.60 H, Estimated Creat Clear 34, Estimated GFR 33 L, Est GFR ( Amer) 40 L, Glucose 140 H D, Calcium 9.3 I & O for Labs for Last 24 Hours: Intake & Output 05/06/25 05/07/25 05/08/25 05/09/25 23:59 23:59 23:59 23:59 Intake Total 120 / 1220 1200 / 1200 Output Total 1550 / 1550 750 / 750 Balance -1430 / -330 450 / 450 Weight 130.181 kg 126.371 kg Head: Present atraumatic Eyes: Present as per HPI ENT: Present normal exam Neck: Present normal inspection and full ROM Respiratory: Present decreased breath sounds and normal respiratory effort Cardiac: Present Reg Rate and Rhythm and Regular Rate GI: Present soft and normal bowel sounds; Absent distention or tenderness Rectal (female): Present deferred (female): Present deferred Extremities: Present normal inspection Comment:: Tremors, involuntary movements noted in all extremities Skin: Present intact and dry Neuro: Present Weakness and Other; Absent alert or oriented x 3 Assessment and Plan *Assessment and plan (1) Hyperkalemia: Status: Acute Category: Medical Code(s): E87.5 - Hyperkalemia (2) Acute confusion: Status: Acute Category: Medical Code(s): R41.0 - Disorientation, unspecified (3) Acute exacerbation of CHF (congestive heart failure): Status: Acute Qualifiers: Heart failure type: unspecified Qualified Code(s): I50.9 - Heart failure, unspecified Category: Medical Code(s): I50.9 - Heart failure, unspecified (4) Status post amputation of toe of right foot: Status: Acute Category: Surgical Code(s): Z89.421 - Acquired absence of other right toe(s) (5) Type 2 diabetes mellitus with vascular disease: Status: Chronic Category: Medical Code(s): E11.59 - Type 2 diabetes mellitus with other circulatory complications (6) 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: Status: Chronic Qualifiers: Serious obesity comorbidity presence: with serious comorbidity Qualified Code(s): E66.813 - Obesity, class 3; E66.2 - Morbid (severe) obesity with alveolar hypoventilation; Z68.41 - Body mass index [BMI] 40.0-44.9, adult Category: Medical Code(s): E66.813 - Obesity, class 3; E66.2 - Morbid (severe) obesity with alveolar hypoventilation; Z68.41 - Body mass index [BMI] 40.0-44.9, adult (7) CKD (chronic kidney disease): Status: Chronic Qualifiers: Chronic kidney disease stage: stage 3 (moderate) Chronic kidney disease stage 3 subtype: stage 3a (GFR 45-59) Qualified Code(s): N18.31 - Chronic kidney disease, stage 3a Category: Medical Code(s): N18.9 - Chronic kidney disease, unspecified Plan Bee Colon is a 54-year-old female with a medical history significant for type 2 diabetes, hypertension, CAD, anxiety/depression, left BKA, recent fracture of right second toe with osteomyelitis s/p amputation who presents from nursing facility for apparent episodes of confusion. She states she was told she was messing with electrical cords, and speaking nonsensically. On my evaluation, patient seemed alert and oriented. Denies chest pain, shortness of breath, fever/chills. Patient recently had her right second toe amputated for osteomyelitis in the setting of fracture, discharged with 10 days of Bactrim with improvement of symptoms. Workup in the ED significant for creatinine 1.6 (baseline 1.0), potassium 7.5, BNP 2280. Vital signs stable. Patient was given regular insulin 10 units with D50, Lokelma 10 g, calcium gluconate 2 g with improvement in potassium to 6.8. Was given additional IV Lasix 80 mg with improvement in potassium to 6.4. Case discussed by ED provider admission was made to admit patient for NIKOLAI on CKD, hyperkalemia. #Acute metabolic encephalopathy #NIKOLAI on CKD stage III #Hyperkalemia #Medication side effect ? Sent to ED from nursing facility for confusion. Patient has been intermittently confused. Likely in the setting of hyperkalemia. ? Initial potassium 7.4, improved to 6.4 with insulin, D50, Lokelma, Lasix. Continuing insulin, D50, will kalemia, Lasix today. Potassium initially improved to 5.9, repeat this afternoon 6.6. ? NIKOLAI, hyperkalemia likely as a result of concomitant Bactrim (for the past 10 days), ramipril, spironolactone. Bactrim is discontinued course, course completed. ? Serial BMPs. ? Started Lokelma 10 g 3 times daily, sodium bicarb 1300 mg 3 times daily. ? Hold ramipril, spironolactone, and any other nephrotoxic medications at this time. ? Holding Cymbalta, Lyrica, trazodone, tramadol due to metabolic encephalopathy. #Tardive dyskinesia #Extrapyramidal symptoms ?Patient have an involuntary jerks, movements, possibly related to hyperkalemia or polypharmacy. ?Stopping multiple home medications, correcting hyperkalemia. #Elevated BNP ? BNP initially 2280. No significant signs of volume overload. ? Follow-up ECHO shows mild diastolic dysfunction, normal EF 55%. #Type 2 diabetes ? Hemoglobin A1c 12.9%. ? HD SSI, ACHS glucose checks. ? Continue home Lantus 60 units twice daily. Hold home metformin, Farxiga due to NIKOLAI. #Anxiety/depression ? Stopping home duloxetine, hydroxyzine in the setting of metabolic encephalopathy. #CAD #PAD ? Continue home aspirin, Xarelto. Hold home statin due to NIKOLAI. #Right second toe amputation due to osteomyelitis, fracture ? Sutures in place. No signs of infection. Plans to remove sutures during visit. Full code DVT prophylaxis: Home Xarelto
[2025-05-09 14:28] LABS: POC Glucose,Bedside 194 (70-110)
--- NOTE | 2025-05-09 14:38 | PC.NURSE ---
Aox 4 with periods of confusion, fsbg achs, assist with turns every two hours, assist times 2, on RA, 18g r w sl, purewick in place with brief, PT and OT consulted, bed alarm active.
[2025-05-09 15:49] LABS: POC Glucose,Bedside 154 (70-110)
[2025-05-09 16:26] LABS: Lactate Venous 1.3 mmol/L (0.4-2.0); VBG Base Excess -1.5 mmol/L (-2.4-2.3); VBG HCO3 24.4 mmol/L (23-30); VBG Oxygen Saturation 75.1 % (50-70); VBG PCO2 47.3 mmol/L (35-51); VBG PH 7.33 mmol/L (7.31-7.41); VBG PO2 42.5 mmol/L (28-40); VBG Total CO2 25.9 mmol/L (23-27)
--- NOTE | 2025-05-09 16:32 | CA_ITS ---
FINAL REPORT TECHNIQUE: Grayscale compression along with color and spectral Doppler CLINICAL HISTORY: PAIN/TENDERNESS RIGHT CALF,PT ON XARELTO FINDINGS: Femoral and popliteal veins show normal compressibility and flow. Visualized portion of the calf veins are patent by Doppler exam. IMPRESSION: No evidence of lower extremity deep venous thrombosis Reviewed, Interpreted and Dictated by Armen Ortiz MD Transcribed by Usha Laureano Authenticated and [facility]
[2025-05-09 16:34] LABS: Chloride 101 mmol/L (98-107); Potassium 5.8 mmoL/L (3.5-5.1); Sodium 137 mmol/L (136-145)
[2025-05-09 16:37] LABS: Anion Gap 15.8 mEq/L (5-15); Blood Urea Nitrogen 17 mg/dl (7-17); Carbon Dioxide 26 mmol/L (22.0-30.0); Creatinine Clearance Estimated 34 mL/min (50-200); Estimated Glomerular Filt Rate 33 ml/min (>60); GFR (African American) 40 ML/MIN (>60)
[2025-05-09 16:38] LABS: Calcium 9.5 mg/dl (8.4-10.2); Glucose 156 mg/dl (74-100)
[2025-05-09 17:01] LABS: Ammonia < 9 umol/L (9-30)
[2025-05-09 17:12] LABS: Thyroid Stimulating Hormone 2.64 uIU/mL (0.465-4.68)
[2025-05-09 17:58] LABS: Procalcitonin 0.075 ng/mL (0.0-2.0)
[2025-05-09] MEDS: 0.9 % SODIUM CHLORIDE 1000ML 500 ML IV (18:21)
--- NOTE | 2025-05-09 20:17 | PC.NURSE ---
patient was turned to right side at this time 2018
[2025-05-09] MEDS: INSULIN GLARGINE 100 UNITS/ML 3ML FLEXPEN 60 UNIT SUBCUT (20:41)
[2025-05-09] MEDS: humaLOG 100 UNITS/ML 10ML VIAL (SSI) SUBCUT (20:43)
[2025-05-09 20:52] LABS: POC Glucose,Bedside 286 (70-110)
[2025-05-09 22:14] LABS: Chloride 102 mmol/L (98-107); Sodium 135 mmol/L (136-145)
[2025-05-09 22:15] LABS: Potassium 5.5 mmoL/L (3.5-5.1)
[2025-05-09 22:18] LABS: Anion Gap 14.5 mEq/L (5-15); Blood Urea Nitrogen 17 mg/dl (7-17); Calcium 8.8 mg/dl (8.4-10.2); Carbon Dioxide 24 mmol/L (22.0-30.0); Creatinine Clearance Estimated 36 mL/min (50-200); Estimated Glomerular Filt Rate 36 ml/min (>60); GFR (African American) 43 ML/MIN (>60); Glucose 235 mg/dl (74-100)
[2025-05-10] VITALS: BP 124/66; PULSE 85; PULSE 86; RESP 20; TEMP 36.8; O2SAT 96
--- NOTE | 2025-05-10 00:19 | PC.NURSE ---
patient refused turn, said she was comfortable at 0020
[2025-05-10 04:00] VITALS: BP 102/56; PULSE 75; PULSE 82; RESP 18; TEMP 36.6; O2SAT 95; BMI 47.0
--- NOTE | 2025-05-10 04:03 | PC.NURSE ---
Blue bags in patient's room was not full and did not need taking out. Pt does not need anything at this time with call light nearby. [id number]
--- NOTE | 2025-05-10 04:55 | PC.NURSE ---
Pt. was alert with mild confusion while taking 2100 meds. Pt. has slept the majority of the shift. Pt. has been on RA tolerating well. 18 g rt wrist sl. ACHS FSBS Purewick is in place with brief. Bed alarm on, call light in reach.
--- NOTE | 2025-05-10 05:58 | PC.NURSE ---
Water pitcher was filled, table wiped, and linen and trash bags were empty if full. Patient does not need anything at this time. 05:58
[2025-05-10 06:09] LABS: POC Glucose,Bedside 205 (70-110)
[2025-05-10] MEDS: humaLOG 100 UNITS/ML 10ML VIAL (SSI) SUBCUT ×4 (06:15→20:40)
[2025-05-10] MEDS: ACETAMINOPHEN 325MG TAB 650 MG PO ×2 (06:15→16:26)
[2025-05-10 06:23] LABS: Basophils # 0.1 K/mm3 (0-0.2); Basophils % 0.8 % (0.1-2.0); Eosinophils # 0.5 Kmm3 (0.0-0.4); Hematocrit 36.1 % (37.0-47.0); Hemoglobin 11.2 g/dL (12.2-16.2); Immature Granulocytes # 0.02 10^3uL; Immature Granulocytes % 0.3 %; Lymphocytes # 2.3 K/mm3 (0.7-4.5); Lymphocytes % 29.7 % (10-50); Mean Corpuscular Hemoglobin 26.9 pg (27.0-31.2); Mean Corpuscular Volume 86.8 fl (81-99); Mean Platelet Volume 10.4 fl (7.4-10.4); Monocytes # 0.7 K/mm3 (0.1-1.0); Monocytes % 8.8 % (1.7-9.3); Neutrophils # 4.3 K/mm3 (1.8-7.8); Neutrophils % 54.4 % (37.0-80.0); Nucleated Red Blood Cells # 0 10^3/uL; Nucleated Red Blood Cells % 0 %; Platelet Count 233 K/mm3 (142-424); Red Blood Count 4.16 M/mm3 (4.20-5.40); Red Cell Distribution Width 15.8 % (11.5-17.5); Red Cell Distribution Width-SD 50.1 fL; White Blood Count 7.9 K/mm3 (4.8-10.8)
[2025-05-10 06:28] LABS: Albumin Level 3.3 g/dl (3.5-5.0)
[2025-05-10 06:29] LABS: Chloride 102 mmol/L (98-107); Potassium 5.4 mmoL/L (3.5-5.1); Sodium 136 mmol/L (136-145)
[2025-05-10 06:31] LABS: Alanine Aminotransferase 15 U/L (12-78); Aspartate Amino Transferase 30 U/L (14-36); Blood Urea Nitrogen 17 mg/dl (7-17); Creatinine Clearance Estimated 39 mL/min (50-200); Estimated Glomerular Filt Rate 39 ml/min (>60); GFR (African American) 47 ML/MIN (>60)
[2025-05-10 06:32] LABS: Albumin/Globulin Ratio 1.1 (1.1-1.8); Alkaline Phosphatase 62 U/L (38-126); Anion Gap 13.4 mEq/L (5-15); Bilirubin,Total 0.2 mg/dl (0.2-1.3); Calcium 8.8 mg/dl (8.4-10.2); Carbon Dioxide 26 mmol/L (22.0-30.0); Globulin 3.1 g/dL (1.3-3.2); Glucose 206 mg/dl (74-100); Magnesium 2.1 mg/dl (1.6-2.3); Total Protein,Serum 6.4 g/dl (6.3-8.2)
[2025-05-10 07:37] LABS: Adenovirus,PCR Not Detected (NotDetected); Bordetella Pertussis Not Detected (NotDetected); Chlamydophila Pneumoniae, PCR Not Detected (NotDetected); Coronavirus 19, PCR Not Detected (NotDetected); Coronavirus 229E Not Detected (NotDetected); Coronavirus NL63 Not Detected (NotDetected); Coronavirus OC43 Not Detected (NotDetected); Coronovirus HKU1,PCR Not Detected (NotDetected); Human Metapneumovirus Not Detected (NotDetected); Influenza A, PCR Not Detected (NotDetected); Influenza AH1, 2009 Not Detected (NotDetected); Influenza AH1, PCR Not Detected (NotDetected); Influenza AH3,PCR Not Detected (NotDetected); Influenza B, PCR Not Detected (NotDetected); Mycoplasma Pneumoniae, PCR Not Detected (NotDetected); Parainfluenza 1, PCR Not Detected (NotDetected); Parainfluenza 2, PCR Not Detected (NotDetected); Parainfluenza 3, PCR Not Detected (NotDetected); Parainfluenza 4, PCR Not Detected (NotDetected); Respiratory Syncytial Virus Not Detected (NotDetected); Rhinovirus/Enterovirus Not Detected (NotDetected)
[2025-05-10 08:00] VITALS: BP 100/50; PULSE 85; RESP 16; TEMP 36.8; O2SAT 94
[2025-05-10] MEDS: POLYETHYLENE GLYCOL 3350 17 GM PACKET PO (08:09)
[2025-05-10] MEDS: METOPROLOL TARTRATE 50MG TABLET 100 MG PO ×2 (08:12→20:42)
[2025-05-10] MEDS: SODIUM BICARBONATE 650MG TABLET 1300 MG PO ×3 (08:12→20:42)
[2025-05-10] MEDS: ASPIRIN 81MG CHEWABLE TABLET 81 MG PO (08:12)
[2025-05-10] MEDS: INSULIN GLARGINE 100 UNITS/ML 3ML FLEXPEN 60 UNIT SUBCUT ×2 (08:12→20:40)
[2025-05-10] MEDS: RIVAROXABAN 2.5MG TABLET 2.5 MG PO ×2 (08:12→16:29)
--- NOTE | 2025-05-10 09:48 | HMH.OTEV ---
OT Inpatient Evaluation Rehab OT IP Evaluation Start: 05/09/25 09:56 Freq: ONCE Status: Active Protocol: Document 05/10/25 09:42 MAYA (Rec: 05/10/25 09:48 MAYA [id number]) Rehab OT IP Assessment Subjective History Per H&P: Bee Colon is a 54-year-old female with a medical history significant for type 2 diabetes, hypertension, CAD, anxiety/depression, left BKA, recent fracture of right second toe with osteomyelitis s/p amputation who presents from nursing facility for apparent episodes of confusion. She states she was told she was messing with electrical cords, and speaking nonsensically. On my evaluation, patient seemed alert and oriented. Denies chest pain, shortness of breath, fever/chills. Patient recently had her right second toe amputated for osteomyelitis in the setting of fracture, discharged with 10 days of Bactrim with improvement of symptoms. Workup in the ED significant for creatinine 1.6 (baseline 1.0), potassium 7.5, BNP 2280. Vital signs stable. Patient was given regular insulin 10 units with D50, Lokelma 10 g, calcium gluconate 2 g with improvement in potassium to 6.8. Was given additional IV Lasix 80 mg with improvement in potassium to 6.4. Case discussed by ED provider admission was made to admit patient for NIKOLAI on CKD, hyperkalemia. Subjective I feel better. Pt was supine in bed when therapy arrived this morning. Pt orient x3. pt able to engage in initial OT eval. Pt reported they live alone in home with ramp to enter. pt uses w/c for functional mobility. pt ind in ADLs and IADLs with assist as needed from daughter who lives at home periodically as they are in college. pt reports they sleep in recliner. pt reports they have shower chair, grab bars, bedside commode. Pt reports they were at rehab in [facility]. Pt reports plan is to go back to rehab. Pt was agreeable to sit on EOB. Pt went from supine to EOB with SBA. Pt demo good static sitting balance for 2 minutes on EOB with SBA. pt reported they would like to stay in bed. Pt went from EOB to supine in bed with SBA. Pt left supine in bed with call light and all other needs within reach. Objective Patient Orientation Person,Place,Birthday Right Upper WFL Extremity Gross ROM Left Upper Extremity WFL Gross ROM Bed Mobility bed mobility-scooting,bed mobility - supine/sit Assist Level Supervision/Stand by Decrease in Yes Endurance Rehab OT IP prob,goals,plan Problems Date of Evaluation: 05/10/25 OT IP Problems Bed Mobility,Transfers,Balance,Self care,Safety Rehab Potential Rehab Potential Good Equipment Needs Assistive Devices Wheelchair Plan OT intervention Plan Bed Mobility,Transfers,Balance,Self care,Safety, Therapeutic Exercise OT Plan Frequency Daily Duration LOS Discharge Goals Bed Mobility Ability Standby Assistance Sit to Stand Chair Supervision/Stand by Transfer Ability Chair Transfer Minimal x 1 (25% assist) Ability Chair Transfer Stand Pivot Technique Chair Transfer Standard Walker,Transfer Belt,Mechanical Lift Assistive Devices Feeding Ability Assist with Tray Set Up Commode/Toilet Raised Toilet Seat,Toilet Rails,Grab Bars Transfer Assistive Devices Decrease in No Endurance Discharge Plan OT Discharge Plan At this time, pt would benefit from skilled acute OT while at [facility] to address functional decline in occupational performance. Pt would benefit from skilled rehab placement once DC from [facility] for skilled OT services and interventions to further address functional limitations in occupational performance. Eval Complexity Eval Charge Codes 07676 - Moderate Complexity PHYSICIAN CERTIFICATION: I certify the specified therapy services for Bee Colon are required, authorized, and reviewed every 30 days.
--- OUTSIDE RECORDS SUMMARY | 2025-05-10 09:54 | XMS_ITS | Encounter Summary ---
Author Organization [employer] Address [address] [place] [id number] Care Team Providers Care Lasting Floorworker Name Role Phone Unavailable Primary Care Provider Unavailabl e Encounter Details Date Type Department Care Team (Late st Contact Info) Description 07/11/2021 Transcribed Document [facility] [place] [facility] [place] [address] ProviderEvangelista MD [address] [place] [address] Social History Tobacco Use Types [...] Evangelista ProviderMD - 07/11/2021 11:07 AM CDT [facility] Main OR Preop Summary Primary Physician: MANI THOMAS MD-SUR Finalized Date/Time: 07/11/21 13:05:00 Pt. Name: BEE COLON/Sex: 1970 Female Med Rec #: [id number] Physician: MANI THOMAS MD-SUR Financial #: [id number] Pt. Type: O Room/Bed: Admit/Disch: 07/11/21 08:06:00 - Institution: [facility] PreOp Case Times Entry 1 [...]
--- OUTSIDE RECORDS SUMMARY | 2025-05-10 09:54 | XMS_ITS | Encounter Summary ---
Author Organization [employer] Address [address] [place] [address] Care Team Providers Care Outreach Liaison Name Role Phone Unavailable Primary Care Provider Unavailabl e Encounter Details Date Type Department Care Team (Late st Contact Info) Description 10/10/2020 Transcribed Document [facility] [place] Family Medicine [address] [place] [address] ProviderEvangelista MD [address], [place] [id number] Social History Tobacco Use Types Packs/Day Years Used Date Smoking Tobacco: Never Assessed Comments Unknown Sex and Gender Information Value Date Recorded Sex Assigned at Not on file Legal Sex Female 3:10 PM CDT Gender Identity Not on file Sexual Orientation Not on file documented as of this encounter Miscellaneous Notes * [employer] Conversion Note - Evangelista Carbone MD - 10/10/2020 10:58 AM 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 CURRENT PLAN: Ms. Colon and I discussed different options with her medication and her spinal cord stimulator. We have decided to get smooth of [employer] about reprogramming before we do anything with her medication. So, I have contacted them and asked if they could call her. I am going to continue her on her Divide 10 mg every 6 hours, Lyrica 200 mg every 12 hours, Tramadol 50 mg every six hours, Cymbalta 60 mg every 12 hours, Trazodone 100 mg qhs. She denies any side effects. She is in agreement with the above plan. We will see her back in follow-up in two months. Anahy Fraser M.D. Yas Electronically signed by Dave Pollard Conversion Director Of Dementia Operations [employer] at 03/05/2023 7:10 PM CDT documented in this encounter Plan of Treatment Not on file documented as of this encounter Visit Diagnoses Not on filedocumented in this encounter
--- OUTSIDE RECORDS SUMMARY | 2025-05-10 09:54 | XMS_ITS | Clinical Summary ---
Author Organization [facility] Address [address] [place] [address] Phone Care Team Providers Care Receiver Dispatcher Name Role Phone Kaity Emerson Unavailable Unavailable Conditions or Problems Problem Name Problem Code Onset Date Status Entry Date Provider Comment Standard Description Annotate Candidiasis , vaginal 74602770 (SNOMED CT) 03/18 Active 03/19 Charlene W Candidiasis of vagina Thrush, oral 07449297 (SNOMED CT) 03/11 Inactive 03/11 Charlene W Candidiasis of mouth Problem excluded fro m report: Other obesity due to excess calories 291960947 (SNOMED CT) 03/15 Active 03/15 Cindi Traore Simple obesity Thrush, oral 52789588 (SNOMED CT) 03/11 Active 03/11 Jeet Rene MD Candidiasis of mouth Thrush, oral 87991540 (SNOMED CT) 03/11 Removed 03/11 Elizabeth Sims Candidiasis of mouth Hx of left TMA 59807909201 803702 (SNOMED CT) 03/04 Active 03/01 Charlene W History of amputation of left lesser toe DM non-pressur e chronic ulcer of left foot, plantar surface, with bone involvement without evidence of necrosis (E11.621) 348390353 (SNOMED CT) 03/01 Inactive 03/01 Luna Hughes Chronic ulcer of foot Chronic osteomyelit is, left foot M86.672 (ICD-10-CM) 03/01 Active 03/01 Luna Hughes Other chronic osteomyelitis, left ankle and foot Coronary artery disease (CAD) 55507408 (SNOMED CT) 03/01 Active 03/01 Luna Hughes Coronary arteriosclerosi s Benign Essential Hypertensio n 1075355 (SNOMED CT) 03/01 Active 03/01 Luna Hughes Benign essential hypertension Cellulitis, foot, left 219701165 (SNOMED CT) 03/01 Active 03/01 Luna Hughes Cellulitis of foot DM Type II E11.9 (ICD-10-CM) 03/01 Active 03/01 Luna Hughes Type 2 diabetes mellitus without complications BMI 45.0-49.9 Z68.42 (ICD-10-CM) 12/14 Resolved 12/14 Luna Hughes Body mass index [BMI] 45.0-49.9, adult MORBID OBESITY 133121224 (SNOMED CT) 12/14 Resolved 12/14 Luna Hughes Morbid obesity TOBACCO USER 862324289 (SNOMED CT) 12/03 Resolved 12/03 Luna Hughes Tobacco user C. DIFF COLITIS A04.7 (ICD-10-CM) 12/03 Resolved 12/03 Luna Hughes Enterocolitis due to Clostridium difficile DM II, UNCONTROLLE D E11.65 (ICD-10-CM) 12/03 Resolved 12/03 Luna Hughes Type 2 diabetes mellitus with hyperglycemia FEVER 589739824 (SNOMED CT) 12/03 Resolved 12/03 Luna Saul Fever VAGINAL CANDIDIASIS 24476297 (SNOMED CT) 12/03 Resolved 12/03 Luna Saul Candidiasis of vagina DIVERTICULI TIS OF SIGMOID COLON 469117453 (SNOMED CT) 12/03 Resolved 12/03 Luna Saul Diverticulitis of sigmoid colon BMI 45.0-49.9 Z68.42 (ICD-10-CM) 12/14 Removed 12/14 Charlene W Body mass index [BMI] 45.0-49.9, adult MORBID OBESITY 164813368 (SNOMED CT) 12/14 Removed 12/14 Charlene W Morbid obesity DM II, UNCONTROLLE D E11.65 (ICD-10-CM) 12/03 Removed 12/03 Charlene W Type 2 diabetes mellitus with hyperglycemia DIARRHEA OF PRESUMED INFECTIOUS ORIGIN 34747008 (SNOMED CT) 12/03 Correction 12/03 Charlene W Diarrhea of presumed infectious origin ABDOMINAL PAIN, LEFT LOWER QUADRANT 713637465 (SNOMED CT) 12/03 Correction 12/03 Charlene W Left lower quadrant pain WEAKNESS 31136543 (SNOMED CT) 12/03 Correction 12/03 Charlene W Asthenia WEIGHT LOSS 054789996 (SNOMED CT) 12/03 Correction 12/03 Charlene W Abnormal weight loss DIARRHEA 89252884 (SNOMED CT) 12/03 Correction 12/03 Charlene W Diarrhea DM TYPE II E11.9 (ICD-10-CM) 12/03 Correction 12/03 Luna Hughes Type 2 diabetes mellitus without complications TOBACCO USER 865488245 (SNOMED CT) 12/03 Removed 12/03 Luna Saul Tobacco user WEIGHT LOSS 121794130 (SNOMED CT) 12/03 Removed 12/03 Luna Saul Abnormal weight loss WEAKNESS 33670553 (SNOMED CT) 12/03 Removed 12/03 Luna Saul Asthenia FEVER 357774221 (SNOMED CT) 12/03 Removed 12/03 Luna Saul Fever C. DIFF COLITIS A04.7 (ICD-10-CM) 12/03 Removed 12/03 Luna Saul Enterocolitis due to Clostridium difficile DIARRHEA OF PRESUMED INFECTIOUS ORIGIN 75993786 (SNOMED CT) 12/03 Removed 12/03 Luna Saul Diarrhea of presumed infectious origin DIARRHEA 75624977 (SNOMED CT) 12/03 Removed 12/03 Luna Saul Diarrhea DIVERTICULI TIS OF SIGMOID COLON 855849440 (SNOMED CT) 12/03 Removed 12/03 Luna Saul Diverticulitis of sigmoid colon ABDOMINAL PAIN, LEFT LOWER QUADRANT 402848095 (SNOMED CT) 12/03 Removed 12/03 Luna Saul Left lower quadrant pain VAGINAL CANDIDIASIS 34183258 (SNOMED CT) 12/03 Removed 12/03 Luna Hughes Candidiasis of vagina Medications Medication Instructions Start Date Stop Date Generic Name NDC Provider DOXYCYCLINE MONOHYDRATE 100 MG CAPS Take one capsule by mouth twice daily DOXYCYCLINE MONOHYDRATE 20776920443 Jeet Rene MD TEFLARO SOLR 600mg IV Q 12hrs x 4wks Bioscrip/Dose, line care, labs [facility] CEFTAROLINE FOSAMIL SOLR 01404425888 Kaity Emerson DOXYCYCLINE MONOHYDRATE 100 MG CAPS Take one capsule by mouth twice daily DOXYCYCLINE MONOHYDRATE 42891082278 Jeet Rene MD FLUCONAZOLE 100 MG TABS Take two tablets by mouth once daily FLUCONAZOLE 15231248416 Jeet Rene MD DIFLUCAN 100 MG TABS Take two tablets by mouth once daily FLUCONAZOLE 24516407935 Jeet Rene MD FLAGYL 500 MG ORAL TABLET Take one tablet by mouth three times daily METRONIDAZOLE 96137857393 Jeet Rene MD ONDANSETRON 4 MG TBDP Take one tablet by mouth every 12 hours ONDANSETRON 65927124102 Jeet Rene MD TEFLARO SOLR 600mg IV Q 12hrs x 4wks Bioscrip/Dose, line care, labs [facility] CEFTAROLINE FOSAMIL SOLR 46380545325 Kaity Ki DAPTOMYCIN SOLR 750mg IV daily x 6wks HH Bioscrip/Dose, line care labs LID DAPTOMYCIN SOLR 57323157720 Kaity Ki CEFEPIME HCL SOLN 2gm IV q 12hrs x 6wks HH Bioscrp, Dose, line care, labs LID CEFEPIME HCL SOLN 96132496356 Kaity Emerson FLUCONAZOLE 200 MG TABS Take one tablet by mouth daily FLUCONAZOLE 87897514297 Jeet Rene MD CEFEPIME HCL SOLN 2gm IV q 12hrs x 6wks Bioscrp, Dose, line care, labs [facility] CEFEPIME HCL SOLN 37643698315 Kaity Emerson DAPTOMYCIN SOLR 750mg IV daily x 6wks Bioscrip/Dose, line care labs [facility] DAPTOMYCIN SOLR 75963587138 Kaity Emerson FLAGYL 500 MG ORAL TABLET Take one tablet by mouth three times daily METRONIDAZOLE 08519530458 Jeet Rene MD TETRACYCLINE HCL 500 MG CAPS TETRACYCLINE HCL 34442993553 Vivek D HYDROMORPHONE HCL 2 MG TABS TAKE ONE TABLET BY MOUTH EVERY 4 HOURS NEEDED FOR moderate TO SEVERE pain MAY CAUSE DROWSINESS HYDROMORPHONE HCL 21949072286 Vivek D ONETOUCH ULTRA STRP USE 1 STRIP TO CHECK GLUCOSE THREE TIMES DAILY GLUCOSE BLOOD 65034829778 Vivek Thomson LACTINEX ORAL TABLET CHEWABLE one by mouth three times a day LACTOBACILLUS 85367156963 Jeet Rene MD FLAGYL 500 MG ORAL TABLET one by mouth three times a day x 2 weeks METRONIDAZOLE 84883163167 Jeet Rene MD LEVAQUIN 750 MG ORAL TABLET one by mouth daily x 2 weeks LEVOFLOXACIN 44433557011 Jeet Rene MD INVANZ (IJ) SOLUTION RECONSTITUTED 1 gm IV daily OPAT ERTAPENEM SODIUM SOLR 92486642149 Jeet Rene MD LANTUS 100 UNIT/ML SOLN INSULIN GLARGINE 22682133136 Aury Z DIFLUCAN TABLET FLUCONAZOLE TABS 31777642768 Aury Z INVANZ (IJ) SOLUTION RECONSTITUTED 1 gm IV daily OPAT ERTAPENEM SODIUM SOLR 20795183062 Peggy Sharma MD DIFLUCAN 200 MG TABS take one daily for yeast infection FLUCONAZOLE 70996713625 Peggy Sharma MD LORTAB 10-500 MG ORAL TABLET HYDROCODONE-ACET AMINOPHEN 97925809767 Peggy Sharma MD NORCO TABS HYDROCODONE-ACET AMINOPHEN TABS 64462816916 Peggy Sharma MD LYRICA CAPS PREGABALIN CAPS 58546836627 Jahaira Merlos CYMBALTA CPEP DULOXETINE HCL CPEP 47142248144 Jahaira G LASIX TABS FUROSEMIDE TABS 59491552842 Jahaira G NORCO TABS HYDROCODONE-ACET AMINOPHEN TABS 97365076065 Jahaira Merlos ATENOLOL TABS ATENOLOL TABS 44379524026 Jahaira Merlos GLYBURIDE TABS GLYBURIDE TABS 70750752101 Jahaira Merlos INVANZ (IJ) SOLUTION RECONSTITUTED ERTAPENEM SODIUM SOLR 56289879074 Jahaira Merlos DIFLUCAN TABLET FLUCONAZOLE TABS 71080126542 Jahaira Merlos Medications Administered No information available. [...] Documenta tion of current medications (procedure) DIET DIET COUNSELOR yes Dietary management education, guidance, and counseling [...] CPT-wclc Weekly Central Line Care 202 11/21/06 CPT-04465 CMP [id number] CBC with Differential 2020 CPT-07406 C- reactive protein CPT-54281 Sedimentation Rate (ESR) 202 11/21/06 CPT-ca Continue IV antibiotics 2020 CPT-Cooral Continue oral antibiotics 20 05/04/24 CPT-cwl Weekly Labs (Continue) 04/08 CPT-wclc Weekly Central Line Care 202 11/20/23 CPT-62159 CMP CPT-97583 CBC w/o Differential [id number], [id number] CPK CPT-62326 Sedimentation Rate (ESR) 202 11/20/23 CPT-47913 C- reactive protein CPT-64819 CMP CPT-14935 C- reactive protein CPT-76548 Sedimentation Rate (ESR) 202 11/20/09 CPT-ca Continue IV antibiotics 2020 CPT-wpc Weekly PICC Line Care 03/18 CPT-cwl Weekly Labs (Continue) 03/18 CPT-78110 CMP CPT-87992 CBC w/o Differential [id number], [id number] CPK CPT-46735 Sedimentation Rate (ESR) 11/20/02 CPT-ca Continue IV antibiotics 2020 CPT-wpc Weekly PICC Line Care 03/11 CPT-cwl Weekly Labs (Continue) 03/11 CPT-93448 CMP CPT-97247 CBC w/o Differential [id number], [id number] CPK CPT-46744 Sedimentation Rate (ESR) 202 11/19/25 CPT-kalyi New IV antibiotic CPT-cwl Weekly Labs (Continue) 03/04 CPT-wclc Weekly Central Line Care 202 11/19/18 CPT-09849 CMP CPT-57917 CBC w/o Differential 19 CPT-82639 C- reactive protein CPT-22133 Sedimentation Rate (ESR) 202 11/19/18 CPT-sl STAT Labs CPT-DC Discontinue IV antibiotics 2 CPT-85547 BMP CPT-31454 CBC w/o Differential CPT-kayli New IV antibiotic CPT-J1335 Ertapenem CPT-94575 CMP CPT-60333 CBC with Differential 12/03 CPT-cdpcr C-Diff PCR [...]
--- OUTSIDE RECORDS SUMMARY | 2025-05-10 09:54 | XMS_ITS | Referral Summary ---
Author Organization [employer] Address [address] [place] [address] Care Team Providers Care Baling Machine Operator Name Role Phone Unavailable Primary [...]
--- OUTSIDE RECORDS SUMMARY | 2025-05-10 09:54 | XMS_ITS | Encounter Summary ---
Author Organization [employer] [facility] [employer] Address [address] [place] [address] Care Team Providers Care Neck Band Setter Name Role Phone Unavailable Primary Care Provider Unavailabl e Encounter Details Date Type Department Care Team (Late st Contact Info) Description 05/15/2022 Transcribed Document [facility] [address] [place] [address] ProviderEvangelista MD [address] [place] [address] Social History Tobacco Use Types [...] Evangelista ProviderMD - 05/15/2022 8:00 AM CDT [facility] Main OR Preop Summary Primary Physician: ANGELA GREEN DPM-POD Finalized Date/Time: 05/15/22 13:36:27 Pt. Name: BEE COLON/Sex: 1970 Female Med Rec #: [id number] Physician: ANGELA GREEN DPM-POD Financial #: [id number] Pt. Type: O Room/Bed: Admit/Disch: 05/15/22 06:55:00 - Institution: [facility] PreOp Case Times Entry 1 In Preop 05/15/22 05:45:00 Ready for Holding n/a Room Patient Ready for 05/15/22 07:15:00 Surgery Patient Out of Preop 05/15/22 07:38:00 Patient Out of n/a Holding Room Last Modified By: Juana Mclaughlin RN 05/15/22 11:19:58 [facility] PreOp Case Times Audit 05/15/22 13:36:25 Flame Brazing Machine Operator: [id number] Modifier: [id number] <+> 1 In Preop 05/15/22 11:19:58 Flame Brazing Machine Operator: [id number] Modifier: [id number] <+> 1 Patient Out of Preop Finalized By: Juana Mclaughlin, RN Document Signatures Signed By: Juana Mclaughlin RN 05/15/22 13:36 Electronically signed by Atul [facility] Conversion Health Care Sanitary Technician Cerner at 03/05/2023 7:02 PM CDT documented in this encounter Plan of Treatment Not on file documented as of this encounter Visit Diagnoses Not on filedocumented in this encounter
--- OUTSIDE RECORDS SUMMARY | 2025-05-10 09:54 | XMS_ITS | Encounter Summary ---
Author Organization [employer] Address [address] [place] [address] Care Team Providers Care Yeast Supervisor Name Role Phone Unavailable Primary Care Provider Unavailabl e Encounter Details Date Type Department Care Team (Late st Contact Info) Description 05/13/2022 Transcribed Document [facility] [place] [address] [place] [address] ProviderEvangelista MD [address] [place] [address] Social History Tobacco Use Types [...] Tartrate: 100 mg, Oral, BID, 0 Refill(s) [place] 10 mg-325 mg oral tablet: 1 Tab, [...] BID Metoprolol Tartrate 100 mg, Oral, BID [place] 10 mg-325 mg oral tablet 1 Tab, PRN, Oral, Q6H ramipril 5 mg, Oral, Daily spironolactone 25 mg, Oral, Daily traZODone 100 mg, Oral, At Bedtime Victoza 1.8 mg, SubCutaneous, Daily Xarelto 2.5 mg, Oral, BID Zetia 10 mg, Oral, At Bedtime , No qualifying data available Problem list: All Problems 6-Stented coronary artery / SNOMED CT 3159678892 / Confirmed Spinal cord stimulator right hip :check w/ pt re on/off status / SNOMED CT 441095081 / Confirmed Peripheral vascular disease / SNOMED CT 1684692982 / Confirmed Hypertension / SNOMED CT 30181955 / Confirmed History of obstructive sleep apnea / IMO 82749687 / Confirmed Foot pain, right / SNOMED CT 690651229 / Confirmed Fibromyalgia / SNOMED CT 54070237 / Confirmed DM - wears Dexcom / SNOMED CT 977161310 / Confirmed Diabetic neuropathy / SNOMED CT 346934882 / Confirmed Coronary artery disease / SNOMED CT 8601825804 / Confirmed Chronic back pain / SNOMED CT 764798718 / Confirmed At risk for sleep apnea / IMO 10720408 / Confirmed Angina / SNOMED CT 857469397 / Confirmed -2020 Non-ST elevation AR (NSTEMI) x 2 / SNOMED CT 3864341762 / Confirmed Canceled: Myocardial infarction / SNOMED CT 74108326 Canceled: Cellulitis of foot, left / SNOMED CT 675690557 s/p left foot transmetatarsal amp Canceled: Unsteady gait-uses cane / SNOMED CT 96410141 , Active Problems (14) -2020 Non-ST elevation AR (NSTEMI) x 2 6-Stented coronary artery Angina [...] been selected or recorded. Procedure history: Hysterectomy (318058725). right foot pinning. lap with laser x3. rt knee scope x2. left knee scope. right hand CMC x4. left hand CMC x1. all toes amputated from left foot. left shoulder scope. right shoulder scope. Cholecystectomy (81667770). Appendectomy (289111218). spinal cord stimulator. Cardiac catheterization (50797827). Comments: 03/19/2022 12:20 EDT - Ale Gresham [...] EDT Height Source Measured Height Entry Format [place] Height/Length, [place] (ft) 0 ft Height/Length [place] 66.5 Inch CLINICALHEIGHT 168.91 cm Baker Body Weight 60 kg Weight Source Standing scale Weight Entry Format [place] Weight [place] lb 290 lb CLINICALWEIGHT 131.82 kg Body [...] ray 2. DM 3. ANA 4. CAD, AR 5. back pain 6. fibromyalgia 7. neuropathy 8. HTN 9. PVD. Condition: Stable. pt to proceed with surgery, DC home same day documented in this encounter Plan of Treatment Not on file documented as of this encounter Visit Diagnoses Not on filedocumented in this encounter
--- OUTSIDE RECORDS SUMMARY | 2025-05-10 09:54 | XMS_ITS | Encounter Summary ---
Author Organization [employer] Address [address] [place] [address] Care Team Providers Care Gravity Manager Name Role Phone Unavailable Primary Care Provider Unavailabl e Encounter Details Date Type Department Care Team (Late st Contact Info) Description 12/17/2019 Transcribed Document [facility] [facility] [place] [address] ProviderEvangelista MD [address] [place], [place] [id number] Social History Tobacco Use Types Packs/Day Years Used Date Smoking Tobacco: Never Assessed Comments Unknown Sex and Gender Information Value Date Recorded Sex Assigned at Not on file Legal Sex Female 3:10 PM CDT Gender Identity Not on file Sexual Orientation Not on file documented as of this encounter Miscellaneous Notes * Cerner Conversion Note - Evangelista Carbone MD - 12/17/2019 1:14 PM TRIMMER HAND Patient: BEE COLON Age: 49 Years Sex: [...] peripheral diabetic neuropathy. She has been utilizing [place] 10/325 mg four times daily dosing, Tramadol [...]
--- OUTSIDE RECORDS SUMMARY | 2025-05-10 09:54 | XMS_ITS | Encounter Summary ---
Author Organization [employer] Address [address] [place] [address] Care Team Providers Care Visual C Developer Name Role Phone Unavailable Primary Care Provider Unavailabl e Encounter Details Date Type Department Care Team (Late st Contact Info) Description 07/10/2021 Transcribed Document [facility] [place] [address] [place] [address] ProviderEvangelista MD [address], [place] [id number] Social History Tobacco Use Types Packs/Day Years [...] Ministry Provided to : Patient, Family/Significant other Anabaptism Preference : Mosque ([employer]) MEDINA BRADFORD P - 07/11/2021 10:58 EDT Spiritual Assessment Spiritual Assessment Comment/Summary Points : Provided pre-surgery visit and prayer with patient and mother. Spirital Assessment Comment/Summary Report : SPIRITUAL ASSESSMENT COMMENT/SUMMARY No qualifying data available. MEDINA BRADFORD - 07/11/2021 10:58 EDT Interventions Emotional Support : Empathic/Engaged listening, Family/Significant other supported Spiritual and Anabaptism : Prayer shared, Spiritual/Anabaptism support provided MEDINA BRADFORD - 07/11/2021 10:58 EDT Electronically signed by Atul [facility] Conversion Hide Mill Worker Cerner at 03/05/2023 6:48 PM CDT documented in this encounter Plan of Treatment Not on file documented as of this encounter Visit Diagnoses Not on filedocumented in this encounter
--- OUTSIDE RECORDS SUMMARY | 2025-05-10 09:54 | XMS_ITS | Encounter Summary ---
Author Organization [email or web address] Address [address] [place] [address] Care Team Providers Care Certified Master Safecracker Name Role Phone Unavailable Primary Care Provider Unavailabl e Encounter Details Date Type Department Care Team (Late st Contact Info) Description 07/31/2020 Transcribed Document [facility] [place] [address] [place] [address] ProviderEvangelista MD [address] [id number] Social History Tobacco Use Types Packs/Day Years [...] at this time with the use of Corea 10/325 mg four times daily dosing, Lyrica [...] months for a follow-up appointment. KAYLIN Navarro/maurice Electronically signed by Richie Pollard Conversion Brick And Tile Making Machine Operator Cerner at 03/05/2023 6:51 PM CDT documented in this encounter Plan of Treatment Not on file documented as of this encounter Visit Diagnoses Not on filedocumented in this encounter
--- OUTSIDE RECORDS SUMMARY | 2025-05-10 09:54 | XMS_ITS | Encounter Summary ---
Author Organization [employer] Address [address] [place] [address] Care Team Providers Care Geophysical Data Technician Name Role Phone Unavailable Primary Care Provider Unavailabl e Encounter Details Date Type Department Care Team (Late st Contact Info) Description 03/17/2022 Transcribed Document [facility] [place] [facility] [place] [address] ProviderEvangelista MD [address] [place] [address] Social History Tobacco Use Types [...] Source : Measured Height Entry Format : [place] Height, Feet : 5 ft(Converted to: 152 cm, 60 Inch) Height, Inches : 6.5 Inch(Converted to: 0 ft 7 Inch, 16.51 cm) Clinical Height : 168.91 cm Weight Source : Standing scale Weight Entry Format : [place] Clinical Dosing Weight : 131.82 kg Weight, Pounds : 290 lb Body Surface Area (BSA) : 2.36 m2 Body Mass Index : 46.2 kg/m2 (>HHI) [place] Body Weight : 60 kg Ale Gresham RN-PATIENT CARE BEDSIDE NON-EXEMPT - 03/19/2022 12:07 EDT Health Histories Smoking Status : Former smoker, quit more than 30 days ago Smokeless Tobacco Status : Never Implant/Device Type, Supervisor Airplane Flight Attendant and Model : spinal cord stimulator; cardiac [...] and When was COVID19 testing completed? : [facility] 03/18/22 Does the Patient state known [...] DEMETRICE WANG RN - 03/17/2022 8:40 EDT [place] Suicide Severity Rating Scale (C-SSRS) CSSRS Past [...] Bee Legal Guardian : No Support Person/Patient Welder Fabricator : Yes Support Person/Pt Rep Name : Nelida Colon - mother Support Person/Pt Rep Contact Information : [phone] Want Family/Rep/Phys Notified of Admit : No [...] Obtained From : Patient Primary Language : Bermudian Preferred Communication Mode : Verbal Communication Barrier : None Manager Molecular Needed : No DEMETRICE WANG RN - [...]
--- OUTSIDE RECORDS SUMMARY | 2025-05-10 09:54 | XMS_ITS | Encounter Summary ---
Author Organization [employer] Address [address] [place] [address] Care Team Providers Care Hematology Supervisor Name Role Phone Unavailable Primary Care Provider Unavailabl e Encounter Details Date Type Department Care Team (Late st Contact Info) Description 05/15/2022 Transcribed Document [facility] [place] [address] [place] [address] ProviderEvangelista MD [address] [place] [address] Social History Tobacco Use Types [...] Evangelista ProviderMD - 05/15/2022 8:00 AM CDT [facility] Main OR PostOp Summary Primary Physician: ANGELA GREEN DPM-POD Finalized Date/Time: 05/15/22 09:37:38 Pt. Name: BEE COLON/Sex: 1970 Female Med Rec #: [id number] Physician: ANGELA GREEN DPM-POD Financial #: [id number] Pt. Type: O Room/Bed: /12 Admit/Disch: 05/15/22 06:55:00 - Institution: [facility] Main OR PostOp Case Times Entry 1 In PACU II 05/15/22 08:29:00 Ready for PACU II 05/15/22 09:35:00 Discharge Discharge from PACU 05/15/22 09:35:00 II Last Modified By: DEMETRICE PEREZ, RN 05/15/22 09:37:34 [facility] Main OR PostOp Case Times Audit 05/15/22 09:37:34 Black Jack Dealer: ZAYDA Modifier: [email or web address] <+> 1 Ready for PACU II Discharge <+> 1 Discharge from PACU II Finalized By: DEMETRICE PEREZ, RN Document Signatures Signed By: DEMETRICE PEREZ, RN 05/15/22 09:37 Electronically signed by Atul [facility] Conversion Harness And Bag Inspector Cerner at 03/05/2023 6:53 PM CDT documented in this encounter Plan of Treatment Not on file documented as of this encounter Visit Diagnoses Not on filedocumented in this encounter
--- OUTSIDE RECORDS SUMMARY | 2025-05-10 09:54 | XMS_ITS | Encounter Summary ---
Author Organization [employer] Address [address] [place] [address] Care Team Providers Care Asp Net Developer Name Role Phone Unavailable Primary Care Provider Unavailabl e Encounter Details Date Type Department Care Team (Late st Contact Info) Description 07/11/2021 Transcribed Document [facility] [address] [place] [address] Dennis Greco MD [address] [place] [address] Social History Tobacco Use Types Packs/Day Years [...]
--- OUTSIDE RECORDS SUMMARY | 2025-05-10 09:54 | XMS_ITS | Encounter Summary ---
Author Organization [employer] Address [address] [place] [address] Care Team Providers Care Sheep Sticker Name Role Phone Unavailable Primary Care Provider Unavailabl e Encounter Details Date Type Department Care Team (Late st Contact Info) Description 07/11/2021 Transcribed Document [facility] [address] [place] [address] Dennis Greco MD [address] [facility] [place] [id number] Social History Tobacco Use Types Packs/Day Years [...] 1970 Associated Diagnoses: None Author: BEE BRYANT, CONTROL VALVE TECHNICIAN Chief Complaint spenser feet wounds Review of [...] list: All Problems 6-Stented coronary artery / [facility] [id number] / Confirmed Spinal cord stimulator status rt hip pt turned off this am / SNOMED CT 929120876 / Confirmed Peripheral vascular disease / SNOMED CT 6380180513 / Confirmed Myocardial infarction / SNOMED CT 66311602 / Confirmed Hypertension / SNOMED CT 07014217 / Confirmed History of obstructive sleep apnea / IMO 65984511 / Confirmed Fibromyalgia / SNOMED CT 78598444 / Confirmed DM - Diabetes mellitus / SNOMED CT 729541952 / Confirmed Diabetic neuropathy / SNOMED CT 028050330 / Confirmed Coronary artery disease / SNOMED CT 2116087058 / Confirmed Chronic back pain / SNOMED CT 602263905 / Confirmed Cellulitis of foot, left / SNOMED CT 850771882 / Confirmed Angina / SNOMED CT 694703177 / Confirmed -2020 Non-ST elevation [place] (NSTEMI) x 2 / SNOMED CT 9845857132 / Confirmed Unsteady gait-uses cane / SNOMED CT 89523365 / Confirmed, Active Problems (15) Non-ST elevation [place] (NSTEMI) x 2 6-Stented coronary artery Angina [...] been selected or recorded. Procedure history: Hysterectomy (694751985). right foot pinning. lap with laser x3. rt knee scope x2. left knee scope. right hand CMC x4. left hand CMC x1. all toes amputated from left foot. left shoulder scope. right shoulder scope. Cholecystectomy (58333416). Appendectomy (228316707). spinal cord stimulator. Physical Examination VS/Measurements No qualifying data available, Measurements from flowsheet : Measurements 07/10/2021 16:16 EDT Height Source Measured Height Entry Format [place] Height/Length, CAMEROONIAN (ft) 5 ft Height/Length CAMEROON[place] 6.5 Inch CLINICALHEIGHT 168.91 cm [place] Body Weight 60 kg Weight Source Standing scale Weight Entry Format [place] Weight Italian lb 281 lb CLINICALWEIGHT 127.73 kg Body [...]
--- OUTSIDE RECORDS SUMMARY | 2025-05-10 09:54 | XMS_ITS | Encounter Summary ---
Author Organization [employer] Address [address] [place] [address] Care Team Providers Care Utilities Equipment Repairer Name Role Phone Unavailable Primary Care Provider Unavailabl e Encounter Details Date Type Department Care Team (Late st Contact Info) Description 03/20/2022 Transcribed Document [facility] Family Medicine [place] [address] ProviderEvangelista MD [address] [place] [address] Social History Tobacco Use Types [...] and water are not available, use hand hook tender. ? Change your dressing as told by [...] fried or sweet foods. ? Take an uuor-igf-raabmyd or prescription medicine for constipation. ??? Do not use any products that contain nicotine or tobacco, such as cigarettes and e-cigarettes. These can delay bone healing after surgery. If you need help quitting, ask your health care provider. ??? Take nbfl-swa-zccikyk and prescription medicines only as told by [...] provider. Document Revised: 12/29/2019 Document Reviewed: 11/25/2018 [employer] Patient Education ? 2020 [employer] Procedures Outpatient Surgery, Adult, Care After This [...] children on your own. Medicines ??? Take ywly-gzt-hfjjoao and prescription medicines only as told by [...] keep your urine pale yellow. ? Take jmec-maz-eeqkbfd or prescription medicines. ? Eat foods that [...] added (diluted fruit juice). ? Eat bland, cgyq-nh-myswpu foods in small amounts as you are [...] and water are not available, use hand hook tender. ? Change your dressing as told by [...] drink clear fluids slowly and eat bland, nbse-wc-gsdigz foods in small amounts. ??? Ask your health care provider what activities are safe for you. This information is not intended to replace advice given to you by your health care provider. Make sure you discuss any questions you have with your health care provider. Document Revised: 03/01/2021 Document Reviewed: 08/23/2020 [employer] Patient Education ? 2020 [employer] documented in this encounter Plan of Treatment Not on file documented as of this encounter Visit Diagnoses Not on filedocumented in this encounter
--- OUTSIDE RECORDS SUMMARY | 2025-05-10 09:54 | XMS_ITS | Encounter Summary ---
Author Organization [employer] Address [address] [place] [address] Care Team Providers Care Altitude Chamber Technician Name Role Phone Unavailable Primary Care Provider Unavailabl e Encounter Details Date Type Department Care Team (Late st Contact Info) Description 03/21/2020 Transcribed Document [facility] Family Medicine [facility] [place] [address] ProviderEvangelista MD [address] [place] [id number] Social History Tobacco Use Types Packs/Day Years [...] p.o. q h.s., Tramadol 50 mg q.i.d., [place] 10 mg q 6 h. She denies any side effects. She is in agreement with the above plan. We will see her back in follow-up in two months. Anahy Fraser M.D. BO/maurice documented in this encounter Plan of Treatment Not on file documented as of this encounter Visit Diagnoses Not on filedocumented in this encounter
--- OUTSIDE RECORDS SUMMARY | 2025-05-10 09:54 | XMS_ITS | Data Portability ---
Author Organization [facility] TISHA Ac [place] CLOSED Address [address] [facility] [facility] [address] [address] [place] [address] Assessment No assessment recorded. Plan of Treatment Reminders Order Date Submit Date Provider Last Modified By Organization Details Last Modified Time Details Appointments None recorded. Lab glucose, fingerstic k, blood 2023 024 [facility], [address] [place] [address], [id number], 4 15:21:02 hemoglobin A1C, fingerstic k 2023 024 [facility], [address] [place] [address], [id number], 4 15:21:03 BMP, serum or plasma 2023 024 [facility], [address] [place] [address], [id number], 4 16:57:00 microalbum in/creatin ine, mass ratio, urine 2023 024 [facility], [address] [place] [address], [address], 4 17:04:15 lipid panel, serum 2023 024 [facility], [address] [place] [address], [id number], 4 16:56:58 hepatic function panel, serum 2023 024 [email or web address], [address] [place] [address], [address], 4 16:56:57 glucose, fingerstic k, blood 2022 023 [facility], [address] [place] [address], [id number], 3 15:09:56 hemoglobin A1C, fingerstic k 2022 023 [facility], [address] [place] [address], [address], 3 15:09:56 microalbum in/creatin ine, mass ratio, urine 2022 023 [email or web address] [facility], [address] [place] [address], [address], 4 08:03:27 BMP, serum or plasma [email or web address] [facility], [address] [place] [address], [address], 4 08:03:28 lipid panel, serum 2022 023 [email or web address] [facility], [address] [place] [address], [address], 4 08:03:28 hepatic function panel, serum 2022 023 [email or web address] [facility], [address] [place] [address], [address], 4 08:03:28 glucose, fingerstic k, blood 2022 023 [facility], [address] [place] [address], [address], 3 14:55:56 glucose, fingerstic k, blood 2022 023 [facility], [address] [place] [address], [address], 3 15:00:30 hemoglobin A1C, fingerstic k 2022 023 [facility], [address] [place] [address], [address], 3 15:00:30 microalbum in/creatin ine, mass ratio, urine [email or web address] [place] [address] Laboratory, [address] [place] [address], [address], 4 09:22:02 BMP, serum or plasma [email or web address] [place] [address] Laboratory, [address] [place] [address], [address], 4 09:22:02 lipid panel, serum [email or web address] [facility], [address] [place] [address], [address], 4 09:22:01 hepatic function panel, serum [email or web address] [facility], [address] [place] [address], [address], 4 09:22:01 glucose, fingerstic k, blood 2021 022 [facility], [address] [place] [address], [address], 2 14:40:04 hemoglobin A1C, fingerstic k 2021 022 [facility], [address] [place] [address], [address], 2 14:40:03 Referral None recorded. Procedures None recorded. Surgeries None recorded. Imaging None recorded. Medication Orders Novolog FlexPen U-100 Insulin aspart 100 unit/mL (3 mL) subcutaneo us 2023 024 [facility], [address] [place] [address], [address], [place], [address], 4 15:25:01 Farxiga 10 mg tablet 2023 024 [facility], [address] [place] [address], [address], [place], [address], 4 15:25:02 Lantus Solostar U-100 Insulin 100 unit/mL (3 mL) subcutaneo us pen 2023 024 [facility], [address] [place] [address], [facility] 2, [place], [address], 4 15:24:56 Ozempic 1 mg/dose (4 mg/3 mL) subcutaneo us pen injector 2023 024 [email or web address] 8 [facility], [address] [place] [address], [address], [place], [address], 4 15:58:04 Lantus Solostar U-100 Insulin 100 unit/mL (3 mL) subcutaneo us pen 2022 023 [facility], [address] [place] [address], [address], [place], [address], 3 15:12:29 Humalog KwikPen (U-100) Insulin 100 unit/mL subcutaneo us 2022 023 [email or web address] 150 [facility], [address] [place] [address], [address], [place], [address], 3 14:40:27 Victoza 3-Ajay 0.6 mg/0.1 mL (18 mg/3 mL) subcutaneo us pen injector 2022 023 [facility], [address] [place] [address], [address], [place], [address], 3 15:12:31 Farxiga 10 mg tablet 2022 023 [facility], [address] [place] [address], [address], [place], [place], [address], 3 15:05:58 Humalog KwikPen (U-100) Insulin 100 unit/mL subcutaneo us [address], [address] [place] [address], [facility], [place], [place], [address], 3 14:40:27 Lantus Solostar U-100 Insulin 100 unit/mL (3 mL) subcutaneo us pen 2022 023 [facility], [address] [place] [address], [address], [place], [place], [address], 3 15:05:59 Victoza 3-Ajay 0.6 mg/0.1 mL (18 mg/3 mL) subcutaneo us pen injector 2022 023 [facility], [address] [place] [address], [address], [place], [place], [address], 3 15:06:03 Farxiga 10 mg tablet 2022 023 [facility], [address] [place] [address], [address], [place], [address], 3 15:47:06 Humalog KwikPen (U-100) Insulin 100 unit/mL subcutaneo us [address], [address] [place] [address], [address], [place], [address], 14:40:27 Lantus Solostar U-100 Insulin 100 unit/mL (3 mL) subcutaneo us pen 2022 023 [facility], [address] [place] [address], [address], [place], [address], 15:06:19 Victoza 3-Ajay 0.6 mg/0.1 mL (18 mg/3 mL) subcutaneo us pen injector 2022 023 [facility], [address] [place] [address], [address], [place], [address], 15:06:17 Farxiga 10 mg tablet 2021 022 [facility], [address] [place] [address], [address], [place], [address], 14:41:29 Humalog KwikPen (U-100) Insulin 100 unit/mL subcutaneo us [email or web address], [address] [place] [address], [address], [place], [address], 14:40:27 Lantus Solostar U-100 Insulin 100 unit/mL (3 mL) subcutaneo us pen 2021 022 [facility], [address] [place] [address], [address], [place], [address], 14:41:28 Victoza 3-Ajay 0.6 mg/0.1 mL (18 mg/3 mL) subcutaneo us pen injector 2021 022 [facility], [address] [place] [address], [address], [place], [address], 14:41:28 Patient TargetsNo targets recorded. Patient InstructionsNo instructions recorded. Reason for Referral None Reported. Results Created Date Observation Date Name Description Value Unit Range Abnormal Flag Note LastModifiedBy Organization Detail LastModifiedTime 09/23/20 22 09/23/2022 hemog lobin A1C, finge rstic k hemoglobin A1C % 8.7 % 4.0 - 5.6 Not Available [facility] [address], [address], 09/23/2022 14:10:19 09/23/20 22 09/23/2022 gluco se, finge rstic k, blood glucose, fingerstick 159 mg/dL 70 - 100 Not Available [facility] [address], [address], 09/23/2022 14:09:55 12/30/19 23 12/30/2022 hemog lobin A1C, finge rstic k hemoglobin A1C % 8.1 % 4.0 - 5.6 Not Available [facility] [address], [address], 12/30/2022 14:52:49 12/30/19 23 12/30/2022 gluco se, finge rstic k, blood glucose, fingerstick 214 mg/dL 70 - 100 Not Available [facility] [address], [address], 12/30/2022 14:52:14 05/06/20 23 05/06/2023 gluco se, finge rstic k, blood glucose, fingerstick 218 mg/dL 70 - 100 Not Available [facility] [address], [address], 05/06/2023 14:19:19 09/02/20 23 09/02/2023 hemog lobin A1C, finge rstic k hemoglobin A1C % 9.6 % 4.0 - 5.6 Not Available [facility] [address], [address], 09/02/2023 14:20:15 09/02/20 23 09/02/2023 gluco se, finge rstic k, blood glucose, fingerstick 313 mg/dL 70 - 100 Not Available [facility] [place] [address] [place] [address], [address], 09/02/2023 14:20:00 12/24/19 24 12/24/2023 HEPAT IC (LIVE R) PANEL AST 16 U/L 0-32 normal Not Available [facility] [address] [place] [address], [address], 12/24/2023 16:56:57 12/24/19 24 12/24/2023 HEPAT IC (LIVE R) PANEL ALT 12 U/L 0-33 normal Not Available [facility] [address] [place] [address], [address], 12/24/2023 16:56:57 12/24/19 24 12/24/2023 HEPAT IC (LIVE R) PANEL alkaline phosphatase 95 U/L 30-121 normal Not Available [facility] [address] [place] [address], [address], 12/24/2023 16:56:57 12/24/19 24 12/24/2023 HEPAT IC (LIVE R) PANEL total protein 7.8 g/dL 6.4-8. 3 normal Not Available [facility] [address] [place] [address], [address], 12/24/2023 16:56:57 12/24/19 24 12/24/2023 HEPAT IC (LIVE R) PANEL albumin 3.9 g/dL 3.5-5. 2 normal Not Available [facility] [address] [place] [address], [address], 12/24/2023 16:56:57 12/24/19 24 12/24/2023 HEPAT IC (LIVE R) PANEL bilirubin, total 0.2 mg/dL 0.1-1. 2 normal Not Available [facility] [address] [place] [address], [address], 12/24/2023 16:56:57 12/24/19 24 12/24/2023 HEPAT IC (LIVE R) PANEL bilirubin, direct <0.2 mg/dL 0.0-0. 3 normal Not Available [facility] [address] [place] [address], [address], 12/24/2023 16:56:57 12/24/19 24 12/24/2023 HEPAT IC (LIVE R) PANEL bilirubin, indirect see below mg/dL _(adeline c) 0.0-1. 0 normal Unabl e to calcu late Indir ect Bilir ubin. Not Available [facility] [address] [place] [address], [address], 12/24/2023 16:56:57 12/24/19 24 12/24/2023 LIPID PROFI LE HDL cholesterol 36 mg/dL 50-242 low Not Available [facility] [address] [place] [address], [address], 12/24/2023 16:56:58 12/24/19 24 12/24/2023 LIPID PROFI LE triglyceride s 203 mg/dL 0-149 high TRIGL YCERI DE RANGE S JACK L: < 150 BORDE RLINE HIGH: 150 - 199 HIGH: 200 - 499 VERY HIGH: > OR = 500 Not Available [facility] [address] [place] [address], [address], 12/24/2023 16:56:58 12/24/19 24 12/24/2023 LIPID PROFI LE cholesterol 107 mg/dL 0-199 normal IRMA STERO L (TOTA L) RANGE S KATHY ABLE: < 200 BORDE RLINE : 200 - 239 HIGHE R RISK: > 239 Not Available [facility] [address] [place] [address], [address], 12/24/2023 16:56:58 12/24/19 24 12/24/2023 LIPID PROFI LE LDL cholesterol 30 mg/dL _(adeline c) 0-99 normal LDL IRMA STERO L RANGE S OPTIM AL: < 100 NEAR/ ABOVE OPTIM AL: 100 - 129 BORDE RLINE HIGH: 130 - 159 HIGH: 160 - 189 VERY HIGH: > OR = 190 Not Available [facility] [address] [place] [address], [address], 12/24/2023 16:56:58 12/24/19 24 12/24/2023 BASIC METAB OLIC PANEL glucose 117 mg/dL 74-100 high Not Available [facility] [address] [place] [address], [address], 12/24/2023 16:57:00 12/24/19 24 12/24/2023 BASIC METAB OLIC PANEL blood urea nitrogen 17 mg/dL 6-20 normal Not Available [facility] [address] [place] [address], [address], 12/24/2023 16:57:00 12/24/19 24 12/24/2023 BASIC METAB OLIC PANEL creatinine 1.13 mg/dL 0.50-0 .95 high Not Available [facility] [address] [place] [address], [address], 12/24/2023 16:57:00 12/24/19 24 12/24/2023 BASIC METAB OLIC PANEL BUN/creatini ne ratio 15 (calc ) 10-20 normal Not Available [facility] [address] [place] [address], [address], 12/24/2023 16:57:00 12/24/19 24 12/24/2023 BASIC METAB OLIC PANEL sodium 139 mmol/ L 136-14 5 normal Not Available [facility] [address] [place] [address], [address], 12/24/2023 16:57:00 12/24/19 24 12/24/2023 BASIC METAB OLIC PANEL potassium 4.6 mmol/ L 3.4-5. 0 normal Not Available [facility] [address] [place] [address], [address], 12/24/2023 16:57:00 12/24/19 24 12/24/2023 BASIC METAB OLIC PANEL chloride 105 mmol/ L 98-107 normal Not Available [facility] [address] [place] [address], [address], 12/24/2023 16:57:00 12/24/19 24 12/24/2023 BASIC METAB OLIC PANEL carbon dioxide 24 mmol/ L 22-31 normal Not Available [facility] [address] [place] [address], [address], 12/24/2023 16:57:00 12/24/19 24 12/24/2023 BASIC METAB OLIC PANEL anion gap 10 (calc ) 7-25 normal Not Available [facility] [address] [place] [address], [address], 12/24/2023 16:57:00 12/24/19 24 12/24/2023 BASIC METAB OLIC PANEL calcium 9.3 mg/dL 8.6-10 .2 normal Not Available [facility] [address] [place] [address], [address], 12/24/2023 16:57:00 12/24/19 24 12/24/2023 BASIC METAB OLIC PANEL GFR 57 >= 60 abnormal NOT E New calcu latio n for GFR (CKD- EPI 2020) is formu lated witho ut race adjus tment facto rs at the [facility] menda tion of the Megan Magdaleno [facility] and [facility] . This calcu latio n has not been valid ated in pregn ant women . For pedia tric patie nts refer to [email or web address] :[email or web address] [email or web address] art/khris joy s/KDO QI/gf r_cal culat orPed Not Available [facility] [address] [place] [address], [address], 12/24/2023 16:57:00 12/24/19 24 12/24/2023 MICRO ALBUM IN/CR EAT RATIO microalbumin , random 12 mg/L 0-19 normal Not Available [facility] [address] [place] [address], [address], 12/24/2023 17:04:15 12/24/19 24 12/24/2023 MICRO ALBUM IN/CR EAT RATIO creatinine,u r,random 94 mg/dL normal NO JACK L RANGE ESTAB LISHE D FOR RANDO M URINE . Not Available [facility] [address] [place] [address], [address], 12/24/2023 17:04:15 12/24/19 24 12/24/2023 MICRO ALBUM IN/CR EAT RATIO MA/creatinin e ratio see below mcg/m g_cre at 0-29 normal Unabl e to calcu late micro album in/cr eatin ine ratio . Not Available [facility] [address] [place] [address], [address], 12/24/2023 17:04:15 12/24/19 24 12/24/2023 hemog lobin A1C, finge rstic k hemoglobin A1C % 9.6 % 4.0 - 5.6 Not Available [facility] [address] [place] [address], [address], 12/24/2023 14:59:59 12/24/19 24 12/24/2023 gluco se, finge rstic k, blood glucose, fingerstick 168 mg/dL 70 - 100 Not Available [facility] [address] [place] [address], [address], 12/24/2023 14:59:46 Result Notes None recorded. Problems No Known Problems Medical Equipment None Reported. Allergies Allergen ID Allergen Name Allergen Category Reaction Reaction Severity Criticality Documentation Date Start Date Code Code System Note Provider Name and Address Organization Details Recorded Time 828307 morphine sulfate medicatio n Not available Not available Not available 10/09/20162006 40299 RxNorm Comme nt: Creat ed By: Hoagl and Merib eth;C reate d Date: 2006 3:24: 04 PM; Not Available [facility] 6 11:27:47 885124 codeine medicatio n Not available Not available Not available 10/09/20162006 2670 RxNorm Comme nt: Creat ed By: Hoagl and Merib eth;C reate d Date: 2006 3:23: 21 PM; Not Available [facility] 6 13:16:43 194321 amoxicill in medicatio n Not available Not available Not available 06/12/2021 723 RxNorm Suzanna Mouser null, [facility] 14:18:35 [id number] acetamino phen / oxycodone medicatio n Not available Not available Not available 06/12/2021 72100 3 [facility] 14:18:[facility] Medications Name Sig Start Date [...] Updated DateTime 4 167.64 cm 46 kg/m2 365693. 83 g 95 /min 124 mm[Hg] 62 mm[Hg] Griselda [facility] 4 14:57:32 Date Recorded Body height Body mass index (BMI) Body weight Heart rate Systolic blood pressure Diastolic blood pressure Provider Name and Address Organization Details Last Updated DateTime 3 167.64 cm 46.8 kg/m2 922118. 79 g 83 /min 130 mm[Hg] 76 mm[Hg] Debra Reed [facility] 3 14:47:32 Date Recorded Body height Heart rate Systolic blood pressure Diastolic blood pressure Provider Name and Address Organization Details Last Updated DateTime 05/06/2023 167.64 cm 91 /min 130 mm[Hg] 62 mm[Hg] Geovani David [facility] 05/06/2023 14:16:53 Date Recorded Body height Heart rate Systolic blood pressure Diastolic blood pressure Provider Name and Address Organization Details Last Updated DateTime 09/02/2023 167.64 cm 90 /min 125 mm[Hg] 60 mm[Hg] Griselda [facility] 09/02/2023 14:18:55 Date Recorded Body height Body mass index (BMI) Body weight Heart rate Systolic blood pressure Diastolic blood pressure Provider Name and Address Organization Details Last Updated DateTime 2 167.64 cm 47.6 kg/m2 129521. 75 g 76 /min 106 mm[Hg] 62 mm[Hg] Suzanna Moore [facility] 2 14:06:58 Social History Question Answer Notes LastModified by Organizat ion Details LastModified Time Tobacco Smoking Status [facility] 03/12/2021 14:46:35 What Was The Date Of Your Most Recent Tobacco Screening? 10/09/2021 [email or web address] Information not available 10/09/2021 How Many Years Have You Smoked Tobacco? 25 [email or web address] Information not available 03/12/2021 Sex: Female Functional Status None recorded. Mental Status None recorded. Family History Nothing Reported. 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 Condition Response Diabetes Y Heart Attack (DC) Y Gynecological HistoryNo gynecological history recorded. Obstetrics History GPAL:G 0 P 0 0 0 0 Past Encounters Encounter ID Performer Location Encounter Start Date Encounter Closed Date Diagnosis/Indication Diagnosis SNOMED-CT Code Diagnosis ICD10 Code Diagnosis Note [id number] ROBBY BARRAGAN MD [facility] [address] [place] [address] 03/12/2021 14:15:47 03/12/2021 16:29:29 Uncontrolled type 2 diabetes mellitus [id number] E11.65 A1c in the office today of [...] diet. Provided with educationa l materials from [employer] about hypoglycem ia symptom recognitio n and treatment, insulin therapy, hyperglyce rekha. 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 Peripheral neuropathy due to type 2 diabetes mellitus 2184955802 107 E11.42 Counseled about the importance of glycemic control to slow further progressio n of diabetic neuropathy /diabetic/ Charcot's joint obtained of a dilated. 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 adams office Emphasized on the importance of bringing her glucose meter with her to the office next office visit. Patient verbalized understand ing and agreed with the above mentioned plan of care. I would like to thank Dr. Lynch for the opportunit y to participat e in the care of this patient. [id number] ROBBY BARRAGAN MD [facility] [address] [place] [address] 06/12/2021 13:51:24 06/13/2021 10:27:33 Uncontrolled type 2 diabetes mellitus [id number] E11.65 A1c in the office today of 7.8 up from 7.2% Random point-of-c are blood glucose 136 Goal A1c less than 7% Worsening glycemic control i.e. 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 Hyperlipidemia [id number] E78.5 Lipid panel and LFTs today Further management to be determined as appropriat e Essential hypertension 43386363 I10 Blood pressure of 104/62Cont inue current regimen Urinary ACR BMB today Patient verbalized understand ing and agreed with the above mentioned plan of care. [id number] ROBBY BARRAGAN MD [facility] [address] [place] [address] 10/09/2021 13:54:06 10/17/2021 14:01:40 Uncontrolled type 2 diabetes mellitus [id number] E11.65 A1c in the office today of [...] dinner Less than 70: No insulin 71 140: 8 units 141 200: 12 units 201 300:16 unit Above 300:20 units Continue Farxiga [...] o obtain her podiatry notes from her fence erector Fasting lipid panel including LFTs, lipid panel and urinary ACR before next visit after 3 months. [id number] ROBBY BARRAGAN MD [facility] [address] [place] [address] 01/08/2022 14:13:57 01/10/2022 13:07:42 Uncontrolled type 2 diabetes mellitus [id number] E11.65 A1c in the office today of [...] dinner Less than 70: No insulin 71 140: 10 units 141 200: 14 units 201 300:18 unit Above 300:22 units Continue Farxiga 10 mg every a.m. before breakfast Continue Victoza 1.8 mg subcutaneo us daily Check blood sugar 4 times before meals and at bedtime Blood pressure in the office today of 118/66 She is currently on statin therapy Provided with a code to share her sensor data with our clinic. [id number] ROBBY BARRAGAN MD [facility] [address] [place] [address] 04/09/2022 13:51:39 04/09/2022 15:09:29 Uncontrolled type 2 diabetes mellitus [id number] E11.65 A1c in the office today of [...] dinner Less than 70: No insulin 71 140: 10 units 141 200: 14 units 201 300:18 unit Above 300:22 units Continue Farxiga 10 mg every a.m. before breakfast Continue Victoza 1.8 mg subcutaneo us daily Check blood sugar 4 times before meals and at bedtime Blood pressure in the office today of 118/66Shkaren is currently on statin therapy Provided with a code to share her sensor data with our clinic. Hyperlipidemia [id number] E78.5 Lipid panel and LFTs todayConti nue current rosuvastat in therapy Instructed about the importance of low-choles terol diet Further management to be determined as appropriat e Peripheral neuropathy due to type 2 diabetes mellitus [id number] 107 E11.42 Counseled about the importance of glycemic control to slow further progressio n of diabetic neuropathy /diabetic/ Charcot's jointConti paulina to follow with podiatry Patient verbalized understand ing and agreed with the above mentioned plan of care. [id number] ROBBY BARRAGAN MD [facility] [address] [place] [address] 07/09/2022 14:17:43 07/09/2022 15:28:43 Uncontrolled type 2 diabetes mellitus [id number] E11.65 A1c in the office today of [...] dinner Less than 70: No insulin 71 140: 10 units 141 200: 14 units 201 300:18 unit Above 300:22 units Continue Farxiga 10 mg every a.m. before breakfast Continue Victoza 1.8 mg subcutaneo us daily Check blood sugar 4 times before meals and at bedtime Blood pressure in the office today of 118/66María is currently on statin therapy [id number] ROBBY BARRAGAN MD [facility] [place] [address] 09/23/2022 13:47:51 09/23/2022 15:29:28 Uncontrolled type 2 diabetes mellitus [id number] E11.65 A1c in the office today of [...] dinner Less than 70: No insulin 71 140: 10 units 141 200: 14 units 201 300:18 unit Above 300:22 units Continue Farxiga 10 mg every a.m. before breakfast Continue Victoza 1.8 mg subcutaneo us daily Check blood sugar 4 times before meals and at bedtime Blood pressure in the office today of [place]/Keith is currently on statin therapy [id number] ROBBY BARRAGAN MD ENDOCRINO LOGY [facility] [address] [place] [phone] 12/30/2022 14:34:01 12/30/2022 15:52:18 Uncontrolled type 2 diabetes mellitus [id number] E11.65 A1c in the office today of [...] and dinnerLess than 70: No insulin 71 140: 10 units 141 200: 14 units 201 300:18 unit Above 300:22 units Continue Farxiga 10 mg every a.m. before breakfast Continue Victoza 1.8 mg subcutaneo us daily Check blood sugar 4 times before meals and at bedtime Blood pressure in the office today of 118/66Shkaren is currently on statin therapy Hyperlipidemia [id number] E78.5 Lipid panel and LFTsLabs to be done at an outside facility and faxed to our office for patient requestCon tinue current rosuvastat in therapyIns tructed about the importance of low-choles terol dietFurthe r management to be determined as appropriat e [id number] ROBBY BARRAGAN MD ENDOCRINO LOGY [address] [place] [address] 05/06/2023 13:58:15 05/06/2023 14:58:33 Uncontrolled type 2 diabetes mellitus [id number] E11.65 A1c in the office today of [...] and dinnerLess than 70: No insulin 71 140: 10 units 141 200: 14 units 201 300:18 unit Above 300:22 units Continue Farxiga 10 mg every a.m. before breakfast Continue Victoza 1.8 mg subcutaneo us daily Check blood sugar 4 times before meals and at bedtime Blood pressure in the office today of 130/62She is currently on statin therapy Hyperlipidemia [id number] E78.5 Lipid panel and LFTs from outside facility on 03/30/2023 reviewed [LDL of 97.8, triglyceri vivian of 234 and total cholestero l 164 and HDL cholestero l of 38.Continu e current rosuvastat in therapyIns tructed about the importance of low-choles terol dietPatien t verbalized understand ing and agreed with the above mentioned plan of care. [id number] ROBBY BARRAGAN MD ENDOCRINO [facility] [address] [place] [address] 09/02/2023 14:09:48 09/03/2023 04:53:33 Uncontrolled type 2 diabetes mellitus [id number] E11.65 A1c in the office today of [...] lunch Less than 70: No insulin 71 140: 8 units 141 200: 10 units 201 300: 12 unit Above 300:16 units Before dinner Less than 70: No insulin 71 140: 14 units 141 200: 18 units 201 300: 22 unit Above 300: 26 units Continue Farxiga 10 mg every a.m. before breakfast Continue Victoza 1.8 mg subcutaneo us daily Check blood sugar 4 times before meals and at bedtime. Check blood sugar 4 times before meals and at bedtimeBlo od pressure in the office today of 130/62She is currently on statin therapy Peripheral neuropathy due to type 2 diabetes mellitus [id number] 107 E11.42 Severe peripheral neuropathy Counseled about the importance of glycemic control to slow further progressio n of diabetic neuropathy /diabetic/ Charcot's jointConti nue to follow with podiatry Hyperlipidemia [id number] E78.5 Lipid panel and LFTs from outside facility on 03/30/2022 reviewed [LDL of 97.8, triglyceri vivian of 234 and total cholestero l 164 and HDL cholestero l of 38.Continu e current rosuvastat in therapyIns tructed about the importance of low-choles terol dietPatien t verbalized understand ing and agreed with the above mentioned plan of care. [id number] ROBBY BARRAGAN MD ENDOCRINO [facility]Y [address] [place] [address] 12/24/2023 14:47:11 12/24/2023 15:40:35 Uncontrolled type 2 diabetes mellitus [id number] E11.65 A1c in the office today of [...] dilated eye exam i.e. Dr. adams Hyperlipidemia [id number] E78.5 Lipid panel and LFTs from outside [...] neuropathy due to type 2 diabetes mellitus [id number] 107 E11.42 Severe peripheral neuropathy Recounsele d about the importance of glycemic control to slow further progressio n of diabetic neuropathy /diabetic/ Charcot's jointConti nue to follow with podiatry Essential hypertension [id number] I10 Blood pressure of 124/62Cont inue current [...] REPLACEMENT/AD VANTAGE - PPO) Bee B Isaiah [id number] Bee B Isaiah 12/23/2023 2 [facility] [id number] Bee B Isaiah [id number] Bee B Isaiah 09/09/2024 1 [place] Bee B Isaiah [id number] Bee B Isaiah 09/09/2024 1 [facility]IC[place] REPLACEMENT HMO) [id number] Bee B Isaiah [id number] Bee B Isaiah Notes Date Note Type Note Provider Name and Address Organization Details Recorded Time 09/23/2022 text/html 52-year-old Cauc female patient with a past medical history [...] dinner Less than 70: No insulin 71 140: 8 units 141 200: 12 units 201 300:16 unit Above 300:20 units Farxiga 10 [...] left foot amputation. History of coronary artery disease/DC status post cardiac stenting. ROBBY BARRAGAN MD [address] [place] [address], [phone], [facility] 09/23/2022 14:40:38 12/30/2022 text/html 52-year-old Cauc female patient with a past medical history [...] before dinnerLess than 70: No insulin 71 140: 10 units 141 200: 14 units 201 300:18 unit Above 300:22 unitsReported recently taking [...] left foot amputation. History of coronary artery disease/DC status post cardiac stenting. ROBBY BARRAGAN MD [address] [place] [address], [phone], [facility] 12/30/2022 15:49:32 05/06/2023 text/html 52-year-old Cauc female patient with a past medical history [...] dinner Less than 70: No insulin 71 140: 10 units 141 200: 14 units 201 300:18 unit Above 300:22 units Farxiga 10 [...] with Dr. Solo podiatryHistory of coronary artery disease/DC status post cardiac stenting. ROBBY BARRAGAN MD [address] [place] [address], [phone], [facility] 05/06/2023 14:58:18 09/02/2023 text/html 53-year-old Cauc female patient with a past medical history [...] dinner Less than 70: No insulin 71 140: 10 units 141 200: 14 units 201 300:18 unit Above 300:22 units Farxiga 10 [...] Solo podiatry [healing closeHistory of coronary artery disease/DC status post cardiac stenting. ROBBY BARRAGAN MD [address] [place] [address], [phone], [facility] 09/02/2023 15:16:38 12/24/2023 text/html 53-year-old Cauc female patient with a past medical history [...] dinner Less than 70: No insulin 71 140: 10 units 141 200: 14 units 201 300:18 unit Above 300:22 units Farxiga 10 [...] Solo podiatry [healing closeHistory of coronary artery disease/DC status post cardiac stenting. ROBBY BARRAGAN MD [address] [place] [address], [phone], [facility] 12/24/2023 15:35:11 OBGyn Episode No OBEpisode recorded.
--- OUTSIDE RECORDS SUMMARY | 2025-05-10 09:54 | XMS_ITS | Encounter Summary ---
Author Organization [employer] Address [address] [place] [address] Care Team Providers Care Repair Service Dispatcher Name Role Phone Unavailable Primary Care Provider Unavailabl e Encounter Details Date Type Department Care Team (Late st Contact Info) Description 03/17/2022 Transcribed Document [facility] [place] Medicine [facility] [place] [address] ProviderEvangelista MD [address], [place] [id number] Social History Tobacco Use Types Packs/Day Years [...] Ministry Provided to : Patient, Family/Significant other Holiness Preference : Oriental Orthodox ([employer]et[employer]) MEDINA BRADFORD P - 03/20/2022 8:04 EDT Spiritual Assessment Spiritual Assessment Comment/Summary Points : Provided pre-surgery visit and prayer with patient and mother. Spirital Assessment Comment/Summary Report : SPIRITUAL ASSESSMENT COMMENT/SUMMARY No qualifying data available. MEDINA BRADFORD - 03/20/2022 8:04 EDT Interventions Emotional Support : Empathic/Engaged listening, Family/Significant other supported Spiritual and Holiness : Prayer shared, Spiritual/Holiness support provided MEDINA BRADFORD - 03/20/2022 8:04 EDT Electronically signed by Atul [facility] Conversion Electrocardiograph Repairer Cerner at 03/05/2023 6:53 PM CDT documented in this encounter Plan of Treatment Not on file documented as of this encounter Visit Diagnoses Not on filedocumented in this encounter
--- OUTSIDE RECORDS SUMMARY | 2025-05-10 09:54 | XMS_ITS | Encounter Summary ---
Author Organization [employer] Address [address] [place] [address] Care Team Providers Care Wafer Polisher Name Role Phone Unavailable Primary Care Provider Unavailabl e Encounter Details Date Type Department Care Team (Late st Contact Info) Description 07/11/2021 Transcribed Document [facility] [place] [facility] [place] [address] ProviderEvangelista MD [address] [place] [address] Social History Tobacco Use Types [...] Evangelista ProviderMD - 07/11/2021 11:07 AM CDT [facility] Main OR IntraOp Summary Primary Physician: MANI THOMAS MD-SUR Finalized Date/Time: 07/14/21 16:36:09 Pt. Name: BEE COLON/Sex: 1970 Female Med Rec #: [id number] Physician: MANI THOMAS MD-SUR Financial #: [id number] Pt. Type: O Room/Bed: Admit/Disch: 07/11/21 08:06:00 - 07/11/21 12:25:00 Institution: [facility] IntraOp Case Attendance Entry 1 Entry 2 Entry 3 Case Attendee AMNI THOMAS MD-SUR BOWEN, JON B, MD-Purvi Quick CRNA Role Performed Surgeon/Proceduralist, Anesthesiologist of REGISTERED NURSE PRACTITIONER/Nurse Payroll Representative First Record Time In 07/11/21 10:47:00 07/11/21 10:47:00 07/11/21 10:47:00 Time Out 07/11/21 11:25:00 07/11/21 11:25:00 07/11/21 11:25:00 Procedure Wound Debridement Lower Wound Debridement Lower Wound Debridement Lower Extremity Extremity Extremity Other Attendee SKI MAKER Superficial Wound Closed By: Last Modified By: Zee Delgadillo RN Napier, Elizabeth A, Zee Gtz RN 07/11/21 11:30:29 07/11/21 11:30:29 07/11/21 11:30:29 Entry 4 Entry 5 Entry 6 Case Attendee ELAINE BRUCE ST Zhurko, Timofey, Zee Betancourt RN Tech Role Performed Scrub, First Scrub, First Commercial Print Salesman, First Time In 07/11/21 10:47:00 07/11/21 10:47:00 [...] JOHNSON, RN Sherwin Gage, RN Role Performed Commercial Print Salesman, Second Commercial Print Salesman, Third Time In 07/11/21 10:47:00 07/11/21 10:47:00 Time Out 07/11/21 11:25:00 07/11/21 11:25:00 Procedure Wound Debridement Lower Wound Debridement Lower Extremity Extremity Other Attendee ORIENTATION Superficial Wound Closed By: Last Modified By: Zee Delgadillo RN Napier, Elizabeth A, RN 07/11/21 11:30:29 07/11/21 11:30:29 [facility] IntraOp Case Attendance Audit 07/11/21 11:30:29 Oil Pumper: [email or web address] Modifier: EANAPIER 1 <+> Time Out [...] Procedure Wound Debridement Lower Extremity 07/11/21 11:08:19 Oil Pumper: JAIRO Modifier: EANAPIER <+> 6 Case Attendee <+> 6 Role Performed <+> 6 Procedure <+> 7 Case Attendee <+> 7 Role Performed <+> 7 Procedure <+> 8 Case Attendee <+> 8 Role Performed <+> 8 Procedure <+> 8 Other Attendee 07/11/21 10:51:13 Oil Pumper: JAIRO Modifier: EANAPIER 5 <+> Case Attendee 5 <*> Procedure Wound Debridement Lower Extremity 07/11/21 10:49:29 Oil Pumper: KURT Modifier: EANAPIER 1 <+> Time In 1 <*> Procedure Wound Debridement Lower Extremity 2 <+> Time In 2 <*> Procedure Wound Debridement Lower Extremity 3 <+> Time In 3 <*> Procedure Wound Debridement Lower Extremity 4 <+> Time In 4 <*> Procedure Wound Debridement Lower Extremity 5 <+> Time In 5 <*> Procedure Wound Debridement Lower Extremity [facility] IntraOp Case Times Entry 1 Patient In Room Time 07/11/21 10:47:00 Out Room Time 07/11/21 11:25:00 Anesthesia Start Time 07/11/21 10:47:00 Stop Time 07/11/21 11:25:00 Surgery / Procedure Times Start Time 07/11/21 11:07:00 Stop Time 07/11/21 11:18:00 Last Modified By: Zee Delgadillo RN 07/11/21 11:30:15 [facility] IntraOp Case Times Audit 07/11/21 11:30:15 Oil Pumper: EANAPIER Modifier: EANAPIER <+> 1 Out Room Time <+> 1 Stop Time 07/11/21 11:18:34 Oil Pumper: EANAPIER Modifier: EANAPIER <+> 1 Stop Time 07/11/21 11:06:32 Oil Pumper: EANAPIER Modifier: EANAPIER <+> 1 Start Time [facility] IntraOp Cautery Entry 1 ESU Identification Cautery Type Monopolar ESU ID Number [id number] ID Type Hospital Number Cautery Settings Cut Setting 35 Coag Setting 35 ESU Grounding Pad Ground Pad Type Adult Grounding Pad Site Right thigh Grounding Pad Site Warm, dry and intact Skin Condition Before Cautery Last Modified By: Zee Delgadillo RN 07/11/21 11:06:28 [facility] IntraOp Communication Entry 1 Communication To Other Comment POST OP Communication By SINA JOHNSON RN Date and Time 07/11/21 11:16:00 Last Modified By: Zee Delgadillo RN 07/11/21 11:16:29 [facility] IntraOp Counts Verification Entry 1 Procedure Wound Debridement Lower Extremity Count Info Count Type Sponge, Sharps, Miscellaneous Counts Verification Baseline/pre-procedure Sequence Count Results Not Applicable Counts Performed By Count Performed By ELAINE BRUCE ST (Scrub) Count Performed By SINA JOHNSON RN (RN) Last Modified By: Zee Delgadillo RN 07/11/21 11:09:24 [facility] IntraOp Counts Verification Audit 07/11/21 11:09:24 Oil Pumper: EANAPIER Modifier: EANAPIER 1 <*> Procedure Wound Debridement Lower Extremity 1 <+> Count Performed By (RN) [facility] IntraOp Counts Final Entry 1 Procedure Wound Debridement Lower Extremity Final Count Info Count Type Sponge, Sharps, Miscellaneous Counts Verification Skin Closure/end of Sequence procedure Count Results Correct, surgeon notified Counts Performed By Count Performed By ELAINE BRUCE ST (Scrub) Count Performed By SINA JOHNSON RN (RN) Last Modified By: Zee Delgadillo RN 07/11/21 11:15:16 [facility] IntraOp Counts Final Audit 07/11/21 11:15:16 Oil Pumper: EANAPIER Modifier: EANAPIER 1 <*> Procedure Wound Debridement Lower Extremity 1 <+> Count Results 1 <+> Count Performed By (Scrub) 1 <+> Count Performed By (RN) [facility] IntraOp Departure from OR Entry 1 Integumentary Assessment Transfer/Handoff Transfer to Ambulatory unit, Phase II Handoff Method Phone call, Online nursing summary Post-op Transport Stretcher/Gurney Via Patient Transport SINA JOHNSON RN Accompanied by Last Modified By: Zee Delgadillo RN 07/11/21 11:30:27 [facility] IntraOp Departure from OR Audit 07/11/21 11:30:27 Oil Pumper: RESULTJO Modifier: BINAPIER <+> 1 Patient Transport Accompanied by [facility] IntraOp Dressing and Packing Entry 1 Type Dressing Wound Dressing Item Cristian, Kerlix/Feng Supplemental Other Applications Applied By MANI THOMAS MD-MARISOL Last Modified By: Zee Delgadillo RN 07/11/21 11:16:14 General Comments: SHOE [facility] IntraOp Fire Risk Assessment Entry [...] Modified By: Zee Delgadillo RN 07/11/21 11:09:14 [facility] IntraOp Fire Risk Assessment Audit 07/11/21 11:09:14 Oil Pumper: RESULTJO Modifier: EANAPIER <+> 1 Fire Risk Assessment Verified By <+> 1 Fire Risk Assessment Verified Date/Time [facility] IntraOp General Case Records Officer 1 Case Information OR OR 06 [facility] Case Level 1 Room Verified Yes Wound Class II - Clean-Contaminated Specialty Vascular Anesthesia Type MAC ASA Class 3 Diagnosis Preop Diagnosis NON HEALING LOWER BILATERAL ISCHEMIA WOUNDS Postop Diagnosis SEE POST OP MD NOTES Last Modified By: Zee Delgadillo RN 07/11/21 11:14:57 [facility] IntraOp General Case Data Audit 07/11/21 11:14:57 Oil Pumper: EANAPIER Modifier: EANAPIER 1 <*> Specialty 1 <+> Preop Diagnosis 07/11/21 10:49:10 Oil Pumper: KURT Modifier: EANAPIER <+> 1 ASA Class [facility] IntraOp Implant Log Entry 1 Type Implant (Synthetic) Implant Log Implant CYTAL WOUND MTRX 3 LYER Identification [id number] Description Implant Quantity 1 Implant [id number] Identification Serial Number Implant [id number] Identification Lot Number Implant [employer] Identification Chicken Boner Name: Implant [id number] Identification Catalog Number Implant Size 7 X 10 CM Implant Has an Yes Expiration Date Implant Expiration 02/13/22 Date Tissue Implant Last Modified By: Zee Delgadillo RN 07/11/21 11:12:51 [facility] IntraOp Intraoperative Assessment Entry 1 [...] Modified By: SINA JOHNSON RN 07/11/21 10:09:43 [facility] IntraOp Intraoperative Equipment Entry 1 Type Monitoring Equipment Intraop Monitoring Electrocardiogram Five lead placement (ECG) Electrode Placement Blood Pressure Non-Invasive BP Device Source Pulse Oximeter Hand, left Probe Site Antiembolic Devices Scopes Photo/Video Documentation Photo No Video No Last Modified By: SINA JOHNSON RN 07/11/21 10:10:01 [facility] IntraOp Medication Admin Entry 1 Medication/Irrigant Lidocaine .5% plain -- [id number] Dose Dose 1 Unit of Measure % Administered By MANI THOMAS MD-MARISOL Procedure Irrigation Last Modified By: Zee Delgadillo RN 07/11/21 11:13:38 [facility] IntraOp Patient Positioning Entry 1 Procedure Wound [...] 11:17:05 General Comments: PROCEDURE ON PATIENT STRETCHER [facility] IntraOp Patient Positioning Audit 07/11/21 11:17:05 Oil Pumper: KURT Modifier: LIONER 1 <*> Procedure 1 <*> Procedure 1 <*> Procedure Wound Debridement Lower Extremity 1 <*> Procedure Wound Debridement Lower Extremity 1 <*> Procedure Wound Debridement Lower Extremity 1 <*> Positioned By Purvi Mccarty CRNA 1 <*> Positioned By Purvi Mccarty CRNA [facility] IntraOp Sign In Entry 1 [...] Modified By: SINA JOHNSON RN 07/11/21 10:11:03 [facility] IntraOp Sign Out Entry 1 [...] Modified By: Zee Delgadillo RN 07/11/21 11:30:40 [facility] IntraOp Sign Out Audit 07/11/21 11:30:40 Oil Pumper: EANAPIER Modifier: EANAPIER <+> 1 RN Sign Out Signature <+> 1 RN Sign Out Signature Date/Time [facility] IntraOp Skin Prep Entry 1 Procedure Wound Debridement Lower Extremity Prescribed N/A Pre-Surgical Prep Completed Prep Area BILATERAL FEET Intraop Prep Prep Agents Betadine solution Prep by SINA JOHNSON RN Hair Removal Methods No hair removal performed Last Modified By: Zee Delgadillo RN 07/11/21 11:14:20 [facility] IntraOp Surgical Procedures Entry 1 Procedure Wound Debridement Lower Extremity Additional (DEBRIDEMENT OF Procedure BILATERAL FOOT WOUNDS Description WITH ACELLULAR GRAFT PLACEMENT TO LEFT FOOT) Primary Procedure Yes Primary Surgeon MANI THOMAS MD-MARISOL Start 07/11/21 11:07:00 Stop 07/11/21 11:18:00 Anesthesia Type MAC Specialty General Wound Class II - Clean-Contaminated Last Modified By: Zee Delgadillo RN 07/11/21 11:30:42 [facility] IntraOp Surgical Procedures Audit 07/11/21 11:30:42 Oil Pumper: EANAPIER Modifier: EANAPIER <+> 1 Stop 07/11/21 11:16:15 Oil Pumper: KURT Modifier: EANAPIER <+> 1 Start [facility] IntraOP Time Out Entry 1 [...]
--- OUTSIDE RECORDS SUMMARY | 2025-05-10 09:54 | XMS_ITS | Encounter Summary ---
Author Organization [employer] Address [address] [place] [address] Care Team Providers Care Format Proofreader Name Role Phone Unavailable Primary Care Provider Unavailabl e Encounter Details Date Type Department Care Team (Late st Contact Info) Description 07/10/2021 Transcribed Document [facility] [place] [address] [place] [address] ProviderEvangelista MD [address] [place] [address] Social History Tobacco Use Types [...] Source : Measured Height Entry Format : Dolores Height, Feet : 5 ft(Converted to: 152 cm, 60 Inch) Height, Inches : 6.5 Inch(Converted to: 0 ft 7 Inch, 16.51 cm) Clinical Height : 168.91 cm Weight Source : Standing scale Weight Entry Format : Dolores Clinical Dosing Weight : 127.73 kg Weight, Pounds : 281 lb Body Surface Area (BSA) : 2.33 m2 Body Mass Index : 44.8 kg/m2 (>HHI) Carver Body Weight : 60 kg CHELSY SUÁREZ - 07/11/2021 8:28 EDT Health Histories Smoking Status : Former smoker, quit more than 30 days ago Smokeless Tobacco Status : Never Implant/Device Type, Fire Fighters Dispatcher and Model : spinal cord stimulator Dalton [...] Where was the COVID-19 Testing completed? : [facility] in [place], [place] Date of COVID-19 test known? : [...] : Yes Spiritual/Cultural Needs Comment : 07/11 Quaker Preference : Gnosticism (Disciples of Demetrio) Spiritual/Cultural Needs Comment : 07/11 Dalton Lang Rn - 07/10/2021 16:16 EDT [place] Suicide Severity Rating Scale (C-SSRS) CSSRS Past [...] Mother Legal Guardian : No Support Person/Patient Hr Business Partner Consultant : Yes Support Person/Pt Rep Name : Nelida Freire mother Support Person/Pt Rep Contact Information : [phone] Want Family/Rep/Phys Notified of Admit : No Emergency Contact #1 : ` Emergency Contact #1 Phone Number : ` Emergency Contact #1 Relationship : ` Emergency Contact #2 : ` Emergency Contact #2 Phone Number : ` Emergency Contact #2 Relationship : ` Information Obtained From : Patient Primary Language : Saudi Arabian Preferred Communication Mode : Verbal Communication Barrier : None Title Curative Specialist Needed : No Dalton Lang Rn - [...]
--- OUTSIDE RECORDS SUMMARY | 2025-05-10 09:54 | XMS_ITS | Encounter Summary ---
Author Organization [employer] Address [address] [place] [address] Care Team Providers Care Residential Program Manager Name Role Phone Unavailable Primary Care Provider Alison e Encounter Details Date Type Department Care Team (Late st Contact Info) Description 05/15/2022 Transcribed Document [facility] [place] [facility] [place] [address] ProviderEvangelista MD [address] [place] [address] Social History Tobacco Use [...] - Start Time: 05/15/22 08:00:00 (05/15/22 08:19:00) documented in this encounter Plan of Treatment Not on file documented as of this encounter Visit Diagnoses Not on filedocumented in this encounter
--- OUTSIDE RECORDS SUMMARY | 2025-05-10 09:54 | XMS_ITS | Encounter Summary ---
Author Organization [employer] i[employer] Address [address] [place] [address] Care Team Providers Care Cattle Inspector Name Role Phone Unavailable Primary Care Provider Unavailabl e Encounter Details Date Type Department Care Team (Late st Contact Info) Description 05/15/2022 Transcribed Document [facility] [place] [address] [place] [address] ProviderEvangelista MD [address] [place] [address] Social History Tobacco Use Types [...] MD - 05/15/2022 8:56 AM CDT [facility] [place] [address] BEE COLON :1970 Visit Time:05/15/2022 What [...] EDT Where: [address] [facility] (1) Medications What How Much When Instructions Next Dose isosorbide mononitrate (isosorbide mononitrate 60 mg oral tablet, extended release) 1 Tablet(s) Oral At Bedtime acetaminophen-hydrocodone ([place] 10 mg-325 mg oral tablet) 1 Tablet(s) [...] these instructions at home: Medicines ??? Take rhbd-zbk-xopzzom and prescription medicines only as told by [...] keep your urine pale yellow. ? Take uevp-nau-elukqiu or prescription medicines. ? Eat foods that [...] and water are not available, use hand cut file clerk. ? Change your dressing as told by [...] provider. Document Revised: 02/22/2020 Document Reviewed: 10/25/2019 [employer] Patient Education ?? [employer] Outpatient Surgery, Adult, Care After This [...] children on your own. Medicines ??? Take yimg-vnp-ixkjmgi and prescription medicines only as told by [...] keep your urine pale yellow. ? Take pwra-nux-nqqzvpl or prescription medicines. ? Eat foods that [...] added (diluted fruit juice). ? Eat bland, ukya-qj-ycledd foods in small amounts as you are [...] and water are not available, use hand cut file clerk. ? Change your dressing as told by [...] drink clear fluids slowly and eat bland, xiks-az-wnwjvo foods in small amounts. ??? Ask your health care provider what activities are safe for you. This information is not intended to replace advice given to you by your health care provider. Make sure you discuss any questions you have with your health care provider. Document Revised: 03/01/2021 Document Reviewed: 08/23/2020 [employer] Patient Education ?? 2020 [employer] Emergency Awareness and Preventative Care STROKE [...] Assistance with quitting is available by contacting 1-806-WXUX-NOW. This is a free resource providing counseling, [...] was given the opportunity to ask questions. Patient/Healthcare Account Manager Name: Patient/Healthcare Account Manager Signature: Relationship to Patient: Clinician/Hospital Healthcare Account Manager Signature: Date: documented in this encounter Plan of Treatment Not on file documented as of this encounter Visit Diagnoses Not on filedocumented in this encounter
--- OUTSIDE RECORDS SUMMARY | 2025-05-10 09:54 | XMS_ITS | Encounter Summary ---
Author Organization [employer] Address [address] [place] [address] Care Team Providers Care Aquatic Habitat Biologist Name Role Phone Unavailable Primary Care Provider Unavailabl e Encounter Details Date Type Department Care Team (Late st Contact Info) Description 07/11/2021 Transcribed Document [facility] [place] [address] [place] [address] ProviderEvangelista MD [address] [place] [address] Social History Tobacco Use Types [...] Evangelista ProviderMD - 07/11/2021 12:12 PM CDT [facility] [place] [address] BEE COLON :1970 Visit Time:07/11/2021 What to do next Your Diagnosis Non-pressure chronic ulcer of other part of right foot with unspecified severity Peripheral vascular disease, unspecified Unspecified atherosclerosis of [place] arteries of extremities, unspecified extremity, Unspecified atherosclerosis of [place] arteries of extremities, unspecified extremity Instructions From [...] 7-10 days Jul.23 at 11:15 am Where: [facility] [address] [facility] [place] [phone] Medications What How Much When Instructions Next [...] eating solid foods. General instructions ??? Take ekre-yeh-lkjvtse and prescription medicines only as told by [...] provider. Document Revised: 01/31/2019 Document Reviewed: 02/22/2017 [employer] Patient Education ?? 2020 [employer]. Surgical Wound Debridement, Care After This sheet [...] these instructions at home: Medicines ??? Take hrlk-tnj-bzuygcx and prescription medicines only as told by [...] and water are not available, use hand stock repairer. ? Change your dressing as told by [...] Reviewed: 10/25/2019 Elsevier Patient Education ?? 2019 [employer] Emergency Awareness and Preventative Care STROKE [...] Assistance with quitting is available by contacting 5-695-GOMJNOW. This is a free resource providing counseling, support, and referral. Or you may contact your personal physician. [place] Suicide Prevention Lifeline: The National Suicide Prevention [...] range between ( 0.0 and 7.0 ) [place] #: 0.83 K/uL -- Normal range between ( 0.16 and 1.00 ) [place]os #: 0.28 x10(3)/uL -- Normal range between ( 0.00 and 0.80 ) [place] %: 9.0 % -- Normal range between [...] was given the opportunity to ask questions. Patient/Painter Interior Finish Name: Patient/Painter Interior Finish Signature: Relationship to Patient: Clinician/Hospital Painter Interior Finish Signature: Date: Electronically signed by Atul, [facility] Conversion Cocoa Powder Mixer Operator Cerner at 03/05/2023 7:13 PM CDT documented in this encounter Plan of Treatment Not on file documented as of this encounter Visit Diagnoses Not on filedocumented in this encounter
--- OUTSIDE RECORDS SUMMARY | 2025-05-10 09:54 | XMS_ITS | Encounter Summary ---
Author Organization [employer] Address [address] [place] [address] Care Team Providers Care Environmental Program Manager Name Role Phone Unavailable Primary Care Provider Unavailabl e Encounter Details Date Type Department Care Team (Late st Contact Info) Description 03/20/2022 Transcribed Document [facility] [place] Medicine [facility] [address] ProviderEvangelista MD [address] [place] [address] Social History Tobacco Use Types [...] Evangelista ProviderMD - 03/20/2022 10:22 AM CDT [facility] [place] [address] BEE COLON :1970 Visit Time:03/20/2022 What [...] When 03/24/2022 02:00 PM EDT Where: [address] [place] [address]- Medications What How Much When Instructions Next [...] and water are not available, use hand mud tank operator. ? Change your dressing as told [...] fried or sweet foods. ? Take an ytyt-mig-hsgohzj or prescription medicine for constipation. ??? Do not use any products that contain nicotine or tobacco, such as cigarettes and e-cigarettes. These can delay bone healing after surgery. If you need help quitting, ask your health care provider. ??? Take dpmx-qgs-wjivruu and prescription medicines only as told by [...] provider. Document Revised: 12/29/2019 Document Reviewed: 11/25/2018 [employer] Patient Education ?? 2020 [employer]. Outpatient Surgery, Adult, Care After This sheet [...] children on your own. Medicines ??? Take pgtn-oko-fzcdtzk and prescription medicines only as told by [...] keep your urine pale yellow. ? Take kjau-yek-puvgbji or prescription medicines. ? Eat foods that [...] added (diluted fruit juice). ? Eat bland, xbyp-cc-gvhack foods in small amounts as you are [...] and water are not available, use hand mud tank operator. ? Change your dressing as told [...] drink clear fluids slowly and eat bland, ldky-lm-youkoa foods in small amounts. ??? Ask your health care provider what activities are safe for you. This information is not intended to replace advice given to you by your health care provider. Make sure you discuss any questions you have with your health care provider. Document Revised: 03/01/2021 Document Reviewed: 08/23/2020 [employer] Patient Education ?? 2020 [employer]. Emergency Awareness and Preventative Care STROKE is [...] Assistance with quitting is available by contacting 8-449-WZSU-NOW. This is a free resource providing counseling, [...] range between ( 0.0 and 7.0 ) [place] #: 1.05 K/uL -- Normal range between ( 0.16 and 1.00 ) Eos #: 0.30 x10(3)/uL -- Normal range between ( 0.00 and 0.80 ) [place] %: 8.5 % -- Normal range between [...] was given the opportunity to ask questions. Patient/Body Masker Name: Patient/Body Masker Signature: Relationship to Patient: Clinician/Hospital Body Masker Signature: Date: documented in this encounter Plan of Treatment Not on file documented as of this encounter Visit Diagnoses Not on filedocumented in this encounter
--- OUTSIDE RECORDS SUMMARY | 2025-05-10 09:54 | XMS_ITS | Encounter Summary ---
Author Organization [employer] Address [address] [place] [address] Care Team Providers Care Sorority Mother Name Role Phone Unavailable Primary Care Provider Unavailabl e Encounter Details Date Type Department Care Team (Late st Contact Info) Description 10/14/2019 Transcribed Document [facility] [place] [facility] [place] [address] ProviderEvangelista MD [address], [place] [id number] Social History Tobacco Use Types Packs/Day Years Used Date Smoking Tobacco: Never Assessed Comments Unknown Sex and Gender Information Value Date Recorded Sex Assigned at Not on file Legal Sex Female 3:10 PM CDT Gender Identity Not on file Sexual Orientation Not on file documented as of this encounter Miscellaneous Notes * Cerner Conversion Note - Evangelista Carbone MD - 10/14/2019 12:06 PM TYPING BOOKKEEPER Patient: BEE COLON Age: 49 Years Sex: [...] 75% pain relief at this time with [place] 10/325 mg four times daily dosing, Tramadol [...] implantation with good coverage. 4. History of Xfkndlu-Nwhvs-Mlkfg involving the bilateral feet. 5. Left foot [...]
--- OUTSIDE RECORDS SUMMARY | 2025-05-10 09:54 | XMS_ITS | Encounter Summary ---
Author Organization [employer] Address [address] [place] [address] Care Team Providers Care Senior C Software Developer Name Role Phone Unavailable Primary Care Provider Unavailabl e Encounter Details Date Type Department Care Team (Late st Contact Info) Description 05/12/2022 Transcribed Document [facility] [place] [facility] [place] [address] ProviderEvangelista MD [address] [id number] Social History Tobacco Use Types Packs/Day Years [...] Ministry Provided to : Patient, Family/Significant other Temple Preference : Jew ([employer]) Aman Lujan Chaplain - 05/12/2022 15:58 EDT Spiritual Assessment Spiritual Assessment Comment/Summary Points : Supportive pre-surgery visit with patient, prayer provided. Spirital Assessment Comment/Summary Report : SPIRITUAL ASSESSMENT COMMENT/SUMMARY No qualifying data available. Aman Lujan Chaplain - 05/12/2022 15:58 EDT Interventions Emotional Support : Empathic/Engaged listening, Family/Significant other supported Spiritual and Temple : Prayer shared, Spiritual/Temple support provided Aman Lujan Chaplain - 05/12/2022 15:58 EDT documented in this encounter Plan of Treatment Not on file documented as of this encounter Visit Diagnoses Not on filedocumented in this encounter
--- OUTSIDE RECORDS SUMMARY | 2025-05-10 09:54 | XMS_ITS | Encounter Summary ---
Author Organization [employer] Address [address] [place] [address] Care Team Providers Care Medication Aid Name Role Phone Unavailable Primary Care Provider Unavailabl e Encounter Details Date Type Department Care Team (Late st Contact Info) Description 07/11/2021 Transcribed Document [facility] [place] [facility] [address] ProviderEvangelista MD [address] [place] [address] Social History Tobacco Use Types [...] these instructions at home: Medicines ??? Take deqo-ipy-uwoxmdq and prescription medicines only as told by [...] and water are not available, use hand junior sales assistant. ? Change your dressing as told by [...] provider. Document Revised: 10/25/2019 Document Reviewed: 10/25/2019 [employer] Patient Education ? 2020 [employer]. Obstetrics and Gynecology Monitored Anesthesia Care, Care [...] eating solid foods. General instructions ??? Take roxn-flw-crldbkg and prescription medicines only as told by [...] provider. Document Revised: 01/31/2019 Document Reviewed: 02/22/2017 [employer] Patient Education ? 2020 [employer] documented in this encounter Plan of Treatment Not on file documented as of this encounter Visit Diagnoses Not on filedocumented in this encounter
--- OUTSIDE RECORDS SUMMARY | 2025-05-10 09:54 | XMS_ITS | Encounter Summary ---
Author Organization [employer] Address [address] [place] [address] Care Team Providers Care Carbon Cutter Name Role Phone Unavailable Primary Care Provider Unavailabl e Encounter Details Date Type Department Care Team (Late st Contact Info) Description 05/15/2022 Transcribed Document [facility] [place] [address] [place] [address] ProviderEvangelista MD [address] [place] [address] Social History Tobacco Use Types [...] ProviderMD - 05/15/2022 8:00 AM CDT [facility] Main OR IntraOp Summary Primary Physician: ANGELA GREEN DPM-POD Finalized Date/Time: 05/20/22 14:13:00 Pt. Name: BEE COLON./Sex: 1970 Female Med Rec #: [id number] Physician: ANGELA GREEN DPM-POD Financial #: [id number] Pt. Type: O Room/Bed: 12 Admit/Disch: 05/15/22 06:55:00 - 05/15/22 09:35:00 Institution: [facility] IntraOp Case Attendance Entry 1 Entry 2 Entry 3 Case Attendee ANGELA GREEN DPM-POD CHALKLEY, JUDSON E, Versteeg, Beckie, RN MD-ANS Role Performed Surgeon/Proceduralist, Anesthesiologist of Biotech Production Specialist, First First Record Time In 05/15/22 07:41:00 [...] RN LONG, PAULA R., ST Role Performed Biotech Production Specialist, Second Biotech Production Specialist, Third Scrub, First Time In 05/15/22 07:41:00 05/15/22 07:41:00 05/15/22 07:41:00 Time Out 05/15/22 08:26:00 05/15/22 08:26:00 05/15/22 08:26:00 Procedure Toe Amputation Toe Amputation Toe Amputation Other Attendee Superficial Wound Closed By: Last Modified By: Milly Powers, Milly Sandhu, Milly Sandhu RN 05/15/22 08:35:45 05/15/22 08:35:45 05/15/22 08:35:45 Entry 7 Case Attendee SHANA EASLEY RESEARCH TEST ENGINE OPERATOR Role Performed RESEARCH TEST ENGINE OPERATOR/Nurse Promotion Writer Time In 05/15/22 07:41:00 Time Out 05/15/22 08:26:00 Procedure Toe Amputation Other Attendee Superficial Wound Closed By: Last Modified By: Milly Powers RN 05/15/22 08:35:45 [facility] IntraOp Case Attendance Audit 05/15/22 08:35:45 Traffic Operations Engineer: [id number] Modifier: [id number] 1 <+> Time Out 1 <*> Procedure [...] 7 <*> Procedure Toe Amputation 05/15/22 08:22:45 Traffic Operations Engineer: [id number] Modifier: [id number] 1 <+> Time In 1 <*> Procedure [...] 7 <*> Procedure Toe Amputation 05/15/22 07:57:53 Traffic Operations Engineer: [id number] Modifier: [id number] <*> Case Attendee ANGELA GREEN DPM-POD 1 <*> Role Performed Surgeon/Proceduralist, First 1 <*> Procedure Toe Amputation 2 <*> Case Attendee JOSE ASHFORD MD-ANS 2 <*> Role Performed Anesthesiologist of Record 2 <*> Procedure Toe Amputation Entry 3 was deleted. Higher numbered entries shifted one position to fill the gap. <-> 3 Case Attendee MARYAN CHAUDHARI NA <-> 3 Role Performed RESEARCH TEST ENGINE OPERATOR/Nurse Promotion Writer <-> 3 Procedure Toe Amputation <+> 4 Case Attendee <+> 4 Role Performed <+> 4 Procedure <+> 5 Case Attendee <+> 5 Role Performed <+> 5 Procedure <+> 6 Case Attendee <+> 6 Role Performed <+> 6 Procedure 05/15/22 07:40:54 Traffic Operations Engineer: [id number] Modifier: [id number] <+> 1 Procedure 2 <*> Procedure Toe Amputation 3 <*> Procedure Toe Amputation [facility] IntraOp Case Times Entry 1 Patient In Room Time 05/15/22 07:41:00 Out Room Time 05/15/22 08:26:00 Anesthesia Start Time 05/15/22 07:41:00 Stop Time 05/15/22 08:26:00 Surgery / Procedure Times Start Time 05/15/22 08:00:00 Stop Time 05/15/22 08:20:00 Last Modified By: Milly Powers RN 05/15/22 08:35:43 [facility] IntraOp Case Times Audit 05/15/22 08:35:43 Traffic Operations Engineer: [id number] Modifier: [id number] <+> 1 Out Room Time <+> 1 Stop Time 05/15/22 08:20:25 Traffic Operations Engineer: [id number] Modifier: [id number] <+> 1 Stop Time 05/15/22 08:01:04 Traffic Operations Engineer: [id number] Modifier: [id number] <+> 1 Start Time [facility] IntraOp Communication Entry 1 Communication To Family/Significant other Comment start Communication By Pablo David RN Date and Time 05/15/22 08:00:00 Last Modified By: Milly Powers RN 05/15/22 08:01:20 [facility] IntraOp Counts Verification Entry 1 Procedure Toe Amputation Count Info Count Type Sponge, Sharps, Miscellaneous Counts Verification Baseline/pre-procedure Sequence Count Results Not Applicable Counts Performed By Count Performed By ZHANNA LU ST (Scrub) Count Performed By Pablo David RN (RN) Last Modified By: Milly Powers RN 05/15/22 07:58:20 [facility] IntraOp Counts Final Entry 1 Procedure Toe Amputation Final Count Info Count Type Sponge, Sharps, Miscellaneous Counts Verification Skin Closure/end of Sequence procedure Count Results Correct, surgeon notified Counts Performed By Count Performed By ZHANNA LU ST (Scrub) Count Performed By Milly Powers RN (RN) Last Modified By: Milly Powers RN 05/15/22 08:17:25 [facility] IntraOp Counts Final Audit 05/15/22 08:17:25 Traffic Operations Engineer: [id number] Modifier: [id number] 1 <*> Procedure Toe Amputation 1 <+> Count Performed By (Scrub) 1 <+> Count Performed By (RN) [facility] IntraOp Cultures and Spec Summary Entry 1 Cultrures and Specimens Specimen Ordered: Yes Test(s) Routine/Path-Lab, Requested/Final Culture(s)/Microbiology Disposition Last Modified By: Milly Powers RN 05/15/22 07:58:38 General Comments: SPECIMENS a. 5th toe and 5th metatarsal, right foot CULTURES 1. right foot surgical site [facility] IntraOp Delays Entry 1 Delay Reason Patient, other (document in comment) Duration 11 Minute(s) Comment case moved up due to delay in previous case prep Last Modified By: Milly Powers RN 05/15/22 08:02:53 [facility] IntraOp Departure from OR Entry 1 Integumentary Assessment Integumentary WDL Assessment WDL Transfer/Handoff Transfer to Ambulatory unit, Phase II Handoff Method Bedside/Face to face, Phone call, Online nursing summary Post-op Transport Stretcher/Gurney Via Patient Transport Milly Powers RN Accompanied by Last Modified By: Milly Powers RN 05/15/22 08:03:25 [facility] IntraOp Dressing and Packing Entry 1 Type Dressing Wound Dressing Item 4x4's, Adaptic, Cristian, Kerlix/Feng Other Comments BETADINE SOLUTION ON FIELD Last Modified By: Milly Powers RN 05/15/22 08:17:31 [facility] IntraOp Fire Risk Assessment Entry 1 [...] Modified By: Milly Powers RN 05/15/22 08:03:56 [facility] IntraOp General Case Environmental Management Specialist 1 Case Information OR OR 05 [facility] Case Level 1 Room Verified Yes Wound Class 4 - Dirty, Infected Specialty Podiatry Anesthesia Type MAC ASA Class 4 Diagnosis Preop Diagnosis osteomyelitis right foot, pain right foot, ulcer to bone right foot Postop Same As Preop No Postop Diagnosis see surgeon postop notes Wound Class Definitions Last Modified By: Milly Powers RN 05/15/22 08:07:51 [facility] IntraOp Intraoperative Assessment Entry 1 Handoff Method Bedside/Face to face, Online nursing summary Valid History / Yes Physical in Chart Preoperative Yes Checklist Reviewed/Evaluated Allergies Reviewed Yes Patient is Latex No Sensitive Skin Assessment Yes Verified Present Upon IVs Arrival to OR Last Modified By: Milly Powers RN 05/15/22 08:20:08 [facility] IntraOp Intraoperative Assessment Audit 05/15/22 08:20:08 Traffic Operations Engineer: [id number] Modifier: [id number] <+> 1 Patient is Latex Sensitive <+> 1 Valid History / Physical in Chart [facility] IntraOp Intraoperative Equipment Entry 1 Type Equipment Equipment Equipment Waste Management System ID Number [id number] Intraop Monitoring Electrocardiogram Five lead placement (ECG) Electrode Placement Antiembolic Devices Scopes Photo/Video Documentation Last Modified By: Milly Powers RN 05/15/22 08:18:25 [facility] IntraOp Medication Admin Entry 1 Entry 2 Entry 3 Medication/Irrigant vancomycin 1Gm vial - GENTAMYCIN 80MG/2ML SANTIAGO TORIBIO PWD [id number] VIAL - [id number] Combo Med List Time Administered Route of [...] lidocaine 1% 30ml vial 0.5% 30ml - [id number] - [id number] Combo Med List Time Administered 05/15/22 08:00:00 05/15/22 08:00:00 Route of inj inj Administration Dose Dose 4.5 4.5 Unit of Measure ml ml Volume Administered By ANGELA GREEN DPM-ANGELA DAVE DPM-POD Procedure Irrigation Irrigant Volume In Irrigant Volume Out Last Modified By: Milly Powers RN Versteeg, Beckie, RN 05/15/22 08:35:14 05/15/22 08:35:14 [facility] IntraOp Medication Admin Audit 05/15/22 08:35:14 Traffic Operations Engineer: [id number] Modifier: [id number] <*> Medication/Irrigant Bupivicaine/Marcaine 0.5% 30ml - [id number] 4 <+> Dose 4 <+> Time Administered 4 <+> Unit of Measure 5 <*> Medication/Irrigant lidocaine 1% 30ml vial - [id number] 5 <+> Dose 5 <+> Time Administered 5 <+> Unit of Measure 05/15/22 08:34:18 Traffic Operations Engineer: [id number] Modifier: [id number] <+> 4 Medication/Irrigant <+> 4 Route of Administration <+> 4 Administered By <+> 5 Medication/Irrigant <+> 5 Route of Administration <+> 5 Administered By 05/15/22 08:33:37 Traffic Operations Engineer: [id number] Modifier: [id number] <*> Medication/Irrigant vancomycin 1Gm vial - [id number] 1 <+> Route of Administration 1 <+> Administered By 1 <+> Dose 1 <+> Unit of Measure <+> 2 Medication/Irrigant <+> 2 Route of Administration <+> 2 Administered By <+> 2 Dose <+> 2 Unit of Measure <+> 3 Medication/Irrigant <+> 3 Route of Administration <+> 3 Administered By <+> 3 Dose <+> 3 Unit of Measure [facility] IntraOp Patient Positioning Entry 1 Procedure [...] Modified By: Milly Powers RN 05/15/22 08:18:58 [facility] IntraOp Sign In Entry 1 Patient, [...] Modified By: Milly Powers RN 05/15/22 08:19:10 [facility] IntraOp Sign Out Entry 1 RN [...] Modified By: Milly Powers RN 05/15/22 08:35:54 [facility] IntraOp Sign Out Audit 05/15/22 08:35:54 Traffic Operations Engineer: [id number] Modifier: [id number] <+> 1 RN Sign Out Signature Date/Time [facility] IntraOp Skin Prep Entry 1 Procedure Toe Amputation Prescribed Yes Pre-Surgical Prep Completed Intraop Prep Integumentary WDL Assessment WDL Prep Agents Betadine scrub, Betadine solution Prep by Milly Powers RN Hair Removal Last Modified By: Milly Powers RN 05/15/22 08:19:24 [facility] IntraOp Surgical Procedures Entry 1 Procedure Toe Amputation Additional (RIGHT PARTIAL 5TH RAY Procedure AMPUTATION) Description Primary Procedure Yes Primary Surgeon ANGELA GREEN DPM-POD Start 05/15/22 08:00:00 Stop 05/15/22 08:20:00 Anesthesia Type MAC Specialty Podiatry Wound Class 3 - Contaminated Last Modified By: Milly Powers RN 05/15/22 08:20:49 [facility] IntraOp Surgical Procedures Audit 05/15/22 08:20:49 Traffic Operations Engineer: [id number] Modifier: [id number] 1 <*> Procedure Toe Amputation 1 <+> Wound Class 05/15/22 08:20:35 Traffic Operations Engineer: [id number] Modifier: [id number] 1 <*> Procedure Toe Amputation 1 <+> Stop 05/15/22 08:19:00 Traffic Operations Engineer: [id number] Modifier: [id number] <+> 1 Start [facility] IntraOp Temp Regulation Devices Entry 1 Temp Regulation Temperature Forced Air Warming Regulation Device device, Warm blankets Temperature Upper body Regulation Site Temperature Device ON Setting Temperature SHANA EASLEY CRNA Regulation Device Applied by Last Modified By: Milly Powers RN 05/15/22 08:19:50 [facility] IntraOP Time Out Entry 1 Procedure [...] Modified By: Milly Powers RN 05/15/22 08:02:08 [facility] IntraOP Time Out Audit 05/15/22 08:02:08 Traffic Operations Engineer: [id number] Modifier: [id number] 1 <+> Beta Dmitriy Administered 1 <+> [...]
--- OUTSIDE RECORDS SUMMARY | 2025-05-10 09:54 | XMS_ITS | Encounter Summary ---
Author Organization [employer] Address [address] [place] [address] Care Team Providers Care Sales Service Executive Name Role Phone Unavailable Primary Care Provider Unavailabl e Encounter Details Date Type Department Care Team (Late st Contact Info) Description 03/19/2022 Transcribed Document [facility] [place] [address] [place] [address] ProviderEvangelista MD [address] [place] [address] Social History Tobacco Use Types [...] Problems 6-Stented coronary artery / SNOMED CT 2719910972 / Confirmed Spinal cord stimulator status rt hip pt turned off this am / SNOMED CT 274233440 / Confirmed Peripheral vascular disease / SNOMED CT 3385129361 / Confirmed Hypertension / SNOMED CT 76058193 / Confirmed History of obstructive sleep apnea / IMO [id number] / Confirmed Foot pain, right / SNOMED CT 229066194 / Confirmed Fibromyalgia / SNOMED CT 21797099 / Confirmed DM - wears Dexcom / SNOMED CT 025710916 / Confirmed Diabetic neuropathy / SNOMED CT 636318247 / Confirmed Coronary artery disease / SNOMED CT 0830536454 / Confirmed Chronic back pain / SNOMED CT 749253305 / Confirmed At risk for sleep apnea / IMO 50979563 / Confirmed Angina / SNOMED CT 919178050 / Confirmed Non-ST elevation [place] (NSTEMI) x 2 / SNOMED CT 9751263754 / Confirmed Canceled: Myocardial infarction / SNOMED CT 70109276 Canceled: Cellulitis of foot, left / SNOMED CT 740091222 s/p left foot transmetatarsal amp Canceled: Unsteady gait-uses cane / SNOMED CT 56655722 , Active Problems (14) Non-ST elevation W[place] [...] been selected or recorded. Procedure history: Hysterectomy (643779966). right foot pinning. lap with laser x3. rt knee scope x2. left knee scope. right hand CMC x4. left hand CMC x1. all toes amputated from left foot. left shoulder scope. right shoulder scope. Cholecystectomy (16231723). Appendectomy (983053993). spinal cord stimulator. Cardiac catheterization (47514658). Comments: 03/19/2022 12:20 EDT - Ale Gresham, [...]
--- OUTSIDE RECORDS SUMMARY | 2025-05-10 09:54 | XMS_ITS | Encounter Summary ---
Author Organization [employer] Address [address] [place] [address] Care Team Providers Care Finishing Machine Tender Name Role Phone Unavailable Primary Care Provider Unavailabl e Encounter Details Date Type Department Care Team (Late st Contact Info) Description 05/15/2022 Transcribed Document [facility] [place] [facility] [place] [address] ProviderEvangelista MD [address] [place] [address] Social History Tobacco Use [...] AM CDT DATE OF PROCEDURE: 05/15/2022 [facility] Patient : 1970 SURGEON: Sam Hamlin DPM IRON GUARDRAIL INSTALLER: None. PREOPERATIVE DIAGNOSES: 1. Osteomyelitis, right foot. [...] patient is at risk for further amputation. /[id number] JESUS Cassidy/RILEY / RADHA / MODL /[id number] documented in this encounter Plan of Treatment Not on file documented as of this encounter Visit Diagnoses Not on filedocumented in this encounter
--- OUTSIDE RECORDS SUMMARY | 2025-05-10 09:54 | XMS_ITS | Clinical Summary ---
Author Organization [employer] Address [address] [place] [address] Care Team Providers Care Nephrologist Name Role Phone Unavailable Primary Care Provider [...]
--- OUTSIDE RECORDS SUMMARY | 2025-05-10 09:54 | XMS_ITS | Encounter Summary ---
Author Organization [employer] Address [address] [place] [address] Care Team Providers Care Missile Mechanic Name Role Phone Unavailable Primary Care Provider Unavailabl e Encounter Details Date Type Department Care Team (Late st Contact Info) Description 06/06/2020 Transcribed Document [facility] Family Medicine [address] [place] [address] ProviderEvangelista MD [address], [place] [id number] Social History Tobacco Use Types Packs/Day Years [...] two months. [place] Cole/jonil Electronically signed by [facility] Conversion Service Crew Leader Cerner at 03/05/2023 7:03 PM CDT documented in this encounter Plan of Treatment Not on file documented as of this encounter Visit Diagnoses Not on filedocumented in this encounter
--- OUTSIDE RECORDS SUMMARY | 2025-05-10 09:54 | XMS_ITS | Encounter Summary ---
Author Organization [employer] Address [address] [place] [address] Care Team Providers Care Extractor Machine Operator Name Role Phone Unavailable Primary Care Provider Unavailabl e Encounter Details Date Type Department Care Team (Late st Contact Info) Description 05/15/2022 Transcribed Document [facility] [place] [address] [place] [address] ProviderEvangelista MD [address] [place] [address] Social History Tobacco Use Types [...] these instructions at home: Medicines ??? Take qjtu-liz-yugmiag and prescription medicines only as told by [...] keep your urine pale yellow. ? Take mrda-swn-yuxyccp or prescription medicines. ? Eat foods that [...] and water are not available, use hand director of acquisition marketing. ? Change your dressing as told by [...] provider. Document Revised: 02/22/2020 Document Reviewed: 10/25/2019 [employer] Patient Education ? 2020 [employer] Procedures Outpatient Surgery, Adult, Care After [...] children on your own. Medicines ??? Take pecz-wkl-qseamov and prescription medicines only as told by [...] keep your urine pale yellow. ? Take ejdc-nzu-affhjsu or prescription medicines. ? Eat foods that [...] added (diluted fruit juice). ? Eat bland, wxxj-ft-igwrvn foods in small amounts as you are [...] and water are not available, use hand director of acquisition marketing. ? Change your dressing as told by [...] drink clear fluids slowly and eat bland, joak-xm-wsjfrg foods in small amounts. ??? Ask your health care provider what activities are safe for you. This information is not intended to replace advice given to you by your health care provider. Make sure you discuss any questions you have with your health care provider. Document Revised: 03/01/2021 Document Reviewed: 08/23/2020 [employer] Patient Education ? 2020 [employer] documented in this encounter Plan of Treatment Not on file documented as of this encounter Visit Diagnoses Not on filedocumented in this encounter
--- OUTSIDE RECORDS SUMMARY | 2025-05-10 09:54 | XMS_ITS | Encounter Summary ---
Author Organization [employer] Address [address] [place] [address] Care Team Providers Care Wood Gluer Name Role Phone Unavailable Primary Care Provider Unavailabl e Encounter Details Date Type Department Care Team (Late st Contact Info) Description 03/20/2022 Transcribed Document [facility] [place] [facility] [place] [address] ProviderEvangelista MD [address] [place] [address] Social History Tobacco Use Types [...] ProviderMD - 03/20/2022 9:01 AM CDT [facility] Main OR IntraOp Summary Primary Physician: ANGELA GREEN DPM-POD Finalized Date/Time: 03/21/22 10:42:50 Pt. Name: BEE COLON/Sex: 1970 Female Med Rec #: [id number] Physician: ANGELA GREEN DPM-POD Financial #: [id number] Pt. Type: O Room/Bed: /6 Admit/Disch: 03/20/22 06:30:00 - 03/20/22 10:56:00 Institution: [facility] IntraOp Case Attendance Entry 1 Entry 2 Entry 3 Case Attendee ANGELA GREEN DPM-POD DODD, ANDREW, Non Emp Abilio, Rakan, IT ADMINISTRATIVE ASSISTANT Student Nurse Apparatus Lineman Role Performed Surgeon/Proceduralist, Student IT ADMINISTRATIVE ASSISTANT/Nurse Apparatus Lineman First Time In 03/20/22 08:45:00 03/20/22 08:45:00 [...] GRETA Role Performed Anesthesiologist of Scrub, First Gut Dropper, First Record Time In 03/20/22 08:45:00 03/20/22 [...] Beckie, RN 03/20/22 09:54:47 03/20/22 09:54:47 [facility] IntraOp Case Attendance Audit 03/20/22 09:54:47 Stone Gluer: [id number] Modifier: [id number] 1 <+> Time Out 1 <*> Procedure [...] Time Out <+> 8 Procedure 03/20/22 09:14:11 Stone Gluer: [id number] Modifier: [id number] <+> 1 Procedure 2 <+> Time In [...] Procedure Hardware Removal Leg Or Foot [facility] IntraOp Case Times Entry 1 Patient In Room Time 03/20/22 08:45:00 Out Room Time 03/20/22 09:54:00 Anesthesia Start Time 03/20/22 08:45:00 Stop Time 03/20/22 09:54:00 Surgery / Procedure Times Start Time 03/20/22 09:01:00 Stop Time 03/20/22 09:50:00 Last Modified By: Milly Powers RN 03/20/22 09:54:23 [facility] IntraOp Case Times Audit 03/20/22 09:54:23 Stone Gluer: [id number] Modifier: [id number] <+> 1 Out Room Time <+> 1 Stop Time <+> 1 Stop Time [facility] IntraOp Cautery Entry 1 ESU Identification Cautery Type Monopolar ESU ID Number [id number] ID Type Hospital Number Cautery Settings Cut Setting 30 Coag Setting 30 ESU Grounding Pad Ground Pad Type Adult Grounding Pad Site Right thigh Grounding Pad Milly Powers RN Applied By Grounding Pad Site Warm, dry and intact Skin Condition Before Cautery Grounding Pad Site Unchanged Skin Condition After Cautery Last Modified By: Milly Powers RN 03/20/22 09:05:57 [facility] IntraOp Communication Entry 1 Communication To Family/Significant other Comment ATTAMPTED NO ANSWER Communication By Milly Powers RN Date and Time 03/20/22 09:06:00 Last Modified By: Milly Powers RN 03/20/22 09:07:11 [facility] IntraOp Counts Verification Entry 1 Procedure Hardware Removal Leg Or Foot Count Info Count Type Sponge, Sharps Counts Verification Baseline/pre-procedure Sequence Count Results Not Applicable Counts Performed By Count Performed By ZHANNA LU ST (Scrub) Count Performed By Milly Powers RN (RN) Last Modified By: Milly Powers RN 03/20/22 09:07:31 [facility] IntraOp Counts Final Entry 1 Procedure Hardware Removal Leg Or Foot Final Count Info Count Type Sponge, Sharps Counts Verification Skin Closure/end of Sequence procedure Count Results Correct, surgeon notified Counts Performed By Count Performed By ZHANNA LU ST (Scrub) Count Performed By Milly Powers RN (RN) Last Modified By: Milly Powers RN 03/20/22 09:36:01 [facility] IntraOp Counts Final Audit 03/20/22 09:36:01 Stone Gluer: [id number] Modifier: [id number] 1 <*> Procedure Hardware Removal Leg Or Foot 1 <+> Count Performed By (Scrub) 1 <+> Count Performed By (RN) [facility] IntraOp Cultures and Spec Summary Entry 1 Cultrures and Specimens Specimen Ordered: Yes Test(s) Routine/Path-Lab Requested/Final Disposition Last Modified By: Milly Powers RN 03/20/22 09:07:47 [facility] IntraOp Departure from OR Entry 1 Integumentary Assessment Integumentary WDL Assessment WDL Transfer/Handoff Transfer to Ambulatory unit, Phase II Handoff Method Phone call, Online nursing summary Post-op Transport Stretcher/Nanyney Via Patient Transport Iza Smiley RN Accompanied by Last Modified By: Milly Powers RN 03/20/22 09:55:30 [facility] IntraOp Departure from OR Audit 03/20/22 09:55:30 Stone Gluer: [id number] Modifier: [id number] <+> 1 Transfer to 03/20/22 09:54:59 Stone Gluer: [id number] Modifier: [id number] 1 <*> Patient Transport Accompanied by Milly Powers RN [facility] IntraOp Dressing and Packing Entry 1 Type Dressing Location OPSITE Wound Dressing Item 4x4's, Adaptic, Kerlix/Feng, Cristian, ABD dressing pad Applied By ANGELA GREEN DPM-POD Other Comments BETADINE SOLUTION ON STERILE FIELD Last Modified By: Milly Powers RN 03/20/22 09:08:34 [facility] IntraOp Explant Log Entry 1 Explant Log Description PLATE AND 8 SCREWS Explant Site RIGHT FOOT Removal Reason No longer needed Disposition Sent to pathology Last Modified By: Milly Powers RN 03/20/22 09:40:31 [facility] IntraOp Explant Log Audit 03/20/22 09:40:31 Stone Gluer: [id number] Modifier: [id number] 1 <*> Description PLATE AND SCREWS 03/20/22 09:32:54 Stone Gluer: [id number] Modifier: [id number] 1 <*> Description PLATE AND [facility] IntraOp Fire Risk Assessment Entry 1 Fire [...] By: Milly Powers RN 03/20/22 09:08:55 [facility] IntraOp General Case It Instructor 1 Case Information OR OR 04 [facility] Case Level 1 Room Verified Yes Wound Class 1 - Clean Specialty Podiatry Anesthesia Type MAC ASA Class 3 Diagnosis Preop Diagnosis RETAINED HARDWARE RIGHT FOOT Postop Same As Preop No Postop Diagnosis SEE POST OP NOTE Wound Class Definitions Last Modified By: Milly Powers RN 03/20/22 09:11:08 [facility] IntraOp Implant Log Entry 1 Type Tissue Implant (Biologic) Implant Log Implant ALLOGRFT TENSIX 5CC DBM Identification [id number] Description Implant Quantity 1 Implant Site RIGHT FOOT Implant [id number] Identification Model Number Implant [id number] Identification Lot Number Implant [facility]:Faustino Mark Med Tech Cashier Self Service Gasoline Name: Implant [id number] Identification Catalog Number Implant Has an Yes Expiration Date Implant Expiration 07/16/23 Date Tissue Implant Graft Prep Per N/A Cashier Self [employer] Gasoline Instructions: Last Modified By: Milly Powers RN 03/20/22 09:26:43 [facility] IntraOp Intraoperative Assessment Entry 1 Handoff Method [...] By: Milly Powers RN 03/20/22 09:11:25 [facility] IntraOp Intraoperative Equipment Entry 1 Type Equipment Equipment Equipment Waste Management System ID Number [id number] Setting ON Intraop Monitoring Antiembolic Devices Scopes Photo/Video Documentation Last Modified By: Milly Powers RN 03/20/22 09:11:47 [facility] IntraOp Medication Admin Entry 1 Entry 2 Medication/Irrigant Bupivicaine/Marcaine 1% LIDOCAINE/2ML 0.5% 30ml - [id number] PRESERVATIVE FREE - [id number] Combo Med List 1 - Combo Med 2 - Combo Med Time Administered 03/20/22 09:01:00 03/20/22 09:01:00 Route of Administration Dose Dose 10 10 Unit of Measure ml ml Volume Administered By ANGELA GREEN DPM-POD ANGELA GREEN DPM-LOIS Procedure Irrigation Irrigant Volume In Irrigant Volume Out Last Modified By: Milly Powers RN Versteeg, Beckie, RN 03/20/22 09:13:36 03/20/22 09:13:36 [facility] IntraOp Patient Positioning Entry 1 Procedure Hardware [...] DPM-POD, ALLIE MENDES, Non Emp Student Nurse Apparatus Lineman Position Verified Positioning Yes Verified by Anesthesia Positioning Yes Verified by Surgeon Last Modified By: Milly Powers RN 03/20/22 09:14:08 [facility] IntraOp Sign In Entry 1 Patient, Site, [...] By: Milly Powers RN 03/20/22 09:14:22 [facility] IntraOp Sign Out Entry 1 RN Confirmation [...] By: Milly Powers RN 03/20/22 09:55:07 [facility] IntraOp Sign Out Audit 03/20/22 09:55:07 Stone Gluer: [id number] Modifier: [id number] <+> 1 RN Sign Out Signature Date/Time [facility] IntraOp Skin Prep Entry 1 Procedure Hardware Removal Leg Or Foot Prescribed Yes Pre-Surgical Prep Completed Prep Area RIGHT FOOT Intraop Prep Integumentary WDL Assessment WDL Prep Agents Betadine scrub, Betadine solution Prep by Milly Powers RN Hair Removal Last Modified By: Milly Powers RN 03/20/22 09:14:58 [facility] IntraOp Surgical Procedures Entry 1 Procedure Hardware Removal Leg Or Foot Additional REMOVAL OF HARDWARE ON Procedure RIGHT FOOT Description Primary Procedure Yes Primary Surgeon ANGELA GREEN DPM-POD Start 03/20/22 09:01:00 Stop 03/20/22 09:50:00 Anesthesia Type MAC Specialty Podiatry Wound Class 1 - Clean Last Modified By: Milly Powers RN 03/20/22 09:55:09 [facility] IntraOp Surgical Procedures Audit 03/20/22 09:55:09 Stone Gluer: [id number] Modifier: [id number] <+> 1 Stop 03/20/22 09:15:18 Stone Gluer: [id number] Modifier: [id number] 1 <*> Procedure Hardware Removal Leg Or Foot 1 <+> Wound Class 1 <*> Additional Procedure Description (REMOVAL OF HARDWARE ON RIGHT FOOT) [facility] IntraOP Time Out Entry 1 Procedure to [...] By: Milly Powers RN 03/20/22 09:18:23 [facility] IntraOP Time Out Audit 03/20/22 09:18:23 Stone Gluer: [id number] Modifier: [id number] 1 <+> Venous Thromboembolism Prophylaxis Required 1 <*> Procedure to be Performed Hardware Removal Leg Or Foot 03/20/22 09:16:55 Stone Gluer: [id number] Modifier: [id number] <+> 1 Beta Dmitriy Administered <+> 1 All activity suspended (unless life threatening emergency) <+> 1 Antibiotic Prophylaxis Administered Or In Progress Within the Last 60 Minutes <+> 1 Surgeon <+> 1 Anesthesia Provider <+> 1 Nursing Assures <+> 1 Time Out Pause Time <+> 1 Procedure to be Performed <+> 1 Team Verbally Confirms Information 03/20/22 09:16:22 Stone Gluer: [id number] Modifier: [id number] Entry 1 was deleted. Higher numbered entries [...] in location of procedure after prepped/draped [facility] IntraOp Tourniquet Entry 1 Type Pneumatic Serial/Unit Number [id number] Setting 250 mmHg Pheumatic Yes Tourniquet Checked Per Protocol Size 18 inches Placement Ankle, right Skin Protection - Yes Padded Under Cuff Applied By ANGELA GREEN DPM-POD Removed By ANEGLA GREEN DPM-POD Times Start Time 03/20/22 09:01:00 Stop Time 03/20/22 09:48:00 Total Time 47 calculated manually (Mins) Last Modified By: Milly Powers RN 03/20/22 09:49:29 [facility] IntraOp Tourniquet Audit 03/20/22 09:49:29 Stone Gluer: [id number] Modifier: [id number] <+> 1 Total Time calculated manually (Mins) <+> 1 Stop Time Case Comments <None> Finalized By: ROBINSON WARREN Document Signatures Signed By: Milly Powers RN 03/20/22 09:55 ROBINSON WARREN 03/21/22 10:42 Unfinalized History Date/Time Username Reason for Unfinalizing Freetext Reason for Unfinalizing 03/21/22 10:41 WATTSDR Correct Billing Electronically signed by Atul [facility] Conversion Workers Compensation Paralegal Cerner at 03/05/2023 7:05 PM CDT documented in this encounter Plan of Treatment Not on file documented as of this encounter Visit Diagnoses Not on filedocumented in this encounter
--- OUTSIDE RECORDS SUMMARY | 2025-05-10 09:54 | XMS_ITS | Encounter Summary ---
Author Organization [employer] Address [address] [place] [address] Care Team Providers Care Brewery Representative Name Role Phone Unavailable Primary Care Provider Unavailabl e Encounter Details Date Type Department Care Team (Late st Contact Info) Description 07/11/2021 Transcribed Document [facility] [place] [facility] includes the [facility] [place] [address] ProviderEvangelista MD [address] [place] [address] Social History Tobacco Use Types [...] Evangelista ProviderMD - 07/11/2021 11:07 AM CDT [facility] Main OR PostOp Summary Primary Physician: MANI THOMAS MD-SUR Finalized Date/Time: 07/11/21 17:49:06 Pt. Name: BEE COLON/Sex: 1970 Female Med Rec #: [id number] Physician: MANI THOMAS MD-SUR Financial #: [id number] Pt. Type: O Room/Bed: Admit/Disch: 07/11/21 08:06:00 - Institution: [facility] Main OR PostOp Case Times [...]
--- OUTSIDE RECORDS SUMMARY | 2025-05-10 09:55 | XMS_ITS | Encounter Summary ---
Author Organization [employer] Address [address] [place] [address] Care Team Providers Care Lime Plant Operator Name Role Phone Unavailable Primary Care Provider Unavailabl e Encounter Details Date Type Department Care Team (Late st Contact Info) Description 03/20/2022 Transcribed Document [facility] [place] Family Medicine [address] [place] [address] ProviderEvangelista MD [address] [place] [address] Social History Tobacco Use Types [...] Evangelista ProviderMD - 03/20/2022 9:01 AM CDT [facility] Main OR Preop Summary Primary Physician: ANGELA GREEN DPM-POD Finalized Date/Time: 03/20/22 11:59:52 Pt. Name: BEE COLON/Sex: 1970 Female Med Rec #: [id number] Physician: ANGELA GREEN DPM-POD Financial #: [id number] Pt. Type: O Room/Bed: /6 Admit/Disch: 03/20/22 06:30:00 - 03/20/22 10:56:00 Institution: [facility] PreOp Case Times Entry 1 In Preop 03/20/22 06:25:00 Ready for Holding n/a Room Patient Ready for 03/20/22 07:40:00 Surgery Patient Out of Preop 03/20/22 08:44:00 Patient Out of n/a Holding Room Last Modified By: Nik Stewart RN-PATIENT CARE BEDSIDE NON-EXEMPT 03/20/22 11:59:49 [facility] PreOp Case Times Audit 03/20/22 11:59:49 Marine Consultant: [id number] Modifier: [id number] <+> 1 Patient Out of Preop 03/20/22 08:03:25 Marine Consultant: [id number] Modifier: [id number] 1 <*> Patient Ready for Surgery 03/20/22 08:03:00 03/20/22 08:03:19 Marine Consultant: [id number] Modifier: [id number] <+> 1 Patient Ready for Surgery Finalized By: Nik Stewart RN-PATIENT CARE BEDSIDE NON-EXEMPT Document Signatures Signed By: Nik Stewart RN-PATIENT CARE BEDSIDE NON-EXEMPT 03/20/22 11:59 Electronically signed by Atul [facility] Conversion Metal Model Maker Cerner at 03/05/2023 6:50 PM CDT documented in this encounter Plan of Treatment Not on file documented as of this encounter Visit Diagnoses Not on filedocumented in this encounter
--- OUTSIDE RECORDS SUMMARY | 2025-05-10 09:55 | XMS_ITS | Encounter Summary ---
Author Organization [employer] Address [address] [place] [address] Care Team Providers Care Report Manager Name Role Phone Unavailable Primary Care Provider Unavailabl e Encounter Details Date Type Department Care Team (Late st Contact Info) Description 03/20/2022 Transcribed Document [facility] [place] [facility] [place] [address] ProviderEvangelista MD [address] [place] [address] Social History Tobacco Use Types [...]
--- OUTSIDE RECORDS SUMMARY | 2025-05-10 09:55 | XMS_ITS ---
Author Organization [facility] Support Name Relationship Address Phone Isaiah, Sissy Guarantor [address] [place], [place] [phone] Isaiah, Sissy Agent [address] [place], [place] [phone] Allergies and adverse reactions Code CodeSystem Substance Reaction Severity StartDate Concern Status 7804 RXNORM Oxycodone Skin reaction - finding (code- 025892354, SNOMED CT) Mild 04/15/2018 active Morphine and Related Nausea (code- 205856711, SNOMED CT) Mild 04/15/2018 active 2670 RXNORM Codeine Skin reaction - finding (code- 215721538, SNOMED CT) Mild 04/15/2018 active 723 RXNORM Amoxicillin Skin reaction - finding (code- 619826139, SNOMED CT) Mild 04/15/2018 active Immunizations Immunization Status Vaccine Details Vaccine Code CodeSystem Date Notes TB 1 Step Mantoux (PPD) completed tuberculin skin test; unspecified formulation lotNumber: [id number] expiry: 10/01/2020 Mfg: Tubersol Given 0.1 ml Right Forearm intradermally 98 CVX created date: 04/15/2018 consent date: 04/15/2018 administer ed date: 04/15/2018 resident left facility AMA on 04/15/18 Problems Problem # Description Date of onset Resolved Date Code CodeSystem Concern Status 1 CHARCOT'S JOINT, RIGHT ANKLE AND FOOT 04/15/[address] active 2 DERANGEMENT OF OTHER LATERAL MENISCUS DUE TO OLD TEAR OR INJURY, RIGHT KNEE 04/15/[address] active 3 ESSENTIAL (PRIMARY) HYPERTENSION 04/15/[address] active 4 OLD MYOCARDIAL INFARCTION 04/15/[address] active 5 OTHER OBESITY DUE TO EXCESS CALORIES 04/15/[address] active 6 PROLAPSE OF VAGINAL VAULT AFTER HYSTERECTOMY 04/15/[address] active 7 TYPE 2 DIABETES MELLITUS WITH FOOT ULCER 04/15/[address] active 8 VITAMIN D DEFICIENCY, UNSPECIFIED 04/15/[address] active Reason for Referral No Reasons for Referral Entered Social History Social History Observation Description Start Date End Date Code Code System Current Smoking Status Tobacco smoking consumption unknown 609551103 SNOMED CT Sex Assigned At Female 1970 09694-6 [facility] Gender Identity Vital Signs Code Code System Vitals Name Values and Units Timing Information 04383-6 [facility] Weight Wxpog=763.4 Units=Lbs 9279-1 [facility] Respiratory Rate Value=20.0 Units=/m in 04/15/2018 8462-4 [facility] Blood Pressure-Diastolic Value=70 Un its=mmHg 04/15/2018 8480-6 [facility] Blood Pressure-Systolic Xheyc=411 Un its=mmHg 04/15/2018 8310-5 [facility] Body Temperature Value=97.3 Units= F 04/15/2018 8867-4 [facility] Heart rate Value=98.0 Units=/min 8302-2 [facility] Height Value=66.0 Units=Inches 04/15/2018 38272-5 [facility] O2 % BldC Oximetry Value=96.0 Units= % 04/15/2018
--- OUTSIDE RECORDS SUMMARY | 2025-05-10 09:55 | XMS_ITS | Clinical Summary ---
Author Organization Healthcare Address [address] [place] [address] Care Team Providers Care Tire Beader Maker Name Role Phone Diego Lynch MD Primary Care Provider [phone] Family History 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 Relation Name Comments [...] of Treatment Not on file Care Teams Tire Beader Maker Relationship Specialty Start Date End Date Diego Lynch MD [address] [facility] [address] [place] [address] PCP - General 03/29/21
--- OUTSIDE RECORDS SUMMARY | 2025-05-10 09:55 | XMS_ITS | Encounter Summary ---
Author Organization [employer] Address [address] [place] [address] Care Team Providers Care Pipe Line Gauger Name Role Phone Unavailable Primary Care Provider Unavailabl e Encounter Details Date Type Department Care Team (Late st Contact Info) Description 03/20/2022 Transcribed Document [facility] [place] [facility] [place] [address] ProviderEvangelista MD [address] [place] [address] Social History Tobacco Use Types [...] Evangelista ProviderMD - 03/20/2022 10:11 AM CDT [facility] [place] [address] BEE COLON :1970 Visit Time:03/20/2022 What [...] When 03/24/2022 02:00 PM EDT Where: [address] [place] [address]- Medications What How Much When Instructions Next [...] water are not available, use hand client relations specialist. ? Change your dressing as told [...] fried or sweet foods. ? Take an zvxg-tky-lmbjczb or prescription medicine for constipation. ??? Do not use any products that contain nicotine or tobacco, such as cigarettes and e-cigarettes. These can delay bone healing after surgery. If you need help quitting, ask your health care provider. ??? Take ogdn-fuu-cxtkrmu and prescription medicines only as told by [...] provider. Document Revised: 12/29/2019 Document Reviewed: 11/25/2018 [employer] Patient Education ?? 2020 [employer]. Outpatient Surgery, Adult, Care After This sheet [...] children on your own. Medicines ??? Take jllw-jis-tkkbcgi and prescription medicines only as told by [...] keep your urine pale yellow. ? Take lqkc-hqu-uxvisaw or prescription medicines. ? Eat foods that [...] added (diluted fruit juice). ? Eat bland, renp-mt-xbrnpm foods in small amounts as you are [...] water are not available, use hand client relations specialist. ? Change your dressing as told [...] drink clear fluids slowly and eat bland, abme-qf-fveeab foods in small amounts. ??? Ask your health care provider what activities are safe for you. This information is not intended to replace advice given to you by your health care provider. Make sure you discuss any questions you have with your health care provider. Document Revised: 03/01/2021 Document Reviewed: 08/23/2020 [employer] Patient Education ?? 2020 [employer]. Emergency Awareness and Preventative Care STROKE is [...] Assistance with quitting is available by contacting 1-274-TUNA-NOW. This is a free resource providing counseling, [...] range between ( 0.0 and 7.0 ) Saunders #: 1.05 K/uL -- Normal range between ( 0.16 and 1.00 ) Eos #: 0.30 x10(3)/uL -- Normal range between ( 0.00 and 0.80 ) Saunders %: 8.5 % -- Normal range between [...] was given the opportunity to ask questions. Patient/Precision Lens Grinder Name: Patient/Precision Lens Grinder Signature: Relationship to Patient: Clinician/Hospital Precision Lens Grinder Signature: Date: documented in this encounter Plan of Treatment Not on file documented as of this encounter Visit Diagnoses Not on filedocumented in this encounter
--- OUTSIDE RECORDS SUMMARY | 2025-05-10 09:55 | XMS_ITS | Encounter Summary ---
Author Organization [employer] Address [address] [place] [address] Care Team Providers Care Pocket Setter Name Role Phone Unavailable Primary Care Provider Unavailabl e Encounter Details Date Type Department Care Team (Late st Contact Info) Description 03/20/2022 Transcribed Document [facility] [place] Family Medicine Count includes the [facility] [place] [address] ProviderEvangelista MD [address] [place] [address] Social History Tobacco Use Types [...] Patient : 1970 SURGEON: Sam Hamlin DPM PRACTICE ARCHITECT: None. PREOPERATIVE DIAGNOSES: 1. Painful retained internal [...] the office in the next 48-72 hours. /[id number] JESUS Cassidy/[place] / / MODL /[id number] documented in this encounter Plan of Treatment Not on file documented as of this encounter Visit Diagnoses Not on filedocumented in this encounter
--- OUTSIDE RECORDS SUMMARY | 2025-05-10 09:55 | XMS_ITS ---
Author Organization [facility] Care Team Providers Care Director Traffic And Planning Name Role Phone Griselda Thrasher Unavailable Unavailable Alexsander Cordon Unavailable Unavailable Aniceto Huynh Unavailable Unavailable Olga Romero Unavailable Unavailable Allergies and adverse reactions Code CodeSystem Substance Reaction Severity StartDate Concern Status Oxycodone Unknown 04/28/2025 active 2670 RXNORM Codeine Mild 03/28/2024 active 89857 RXNORM Clopidogrel Urticaria (code - 528078793, SNOMED CT) Severe 03/28/2024 active 723 RXNORM Amoxicillin Unknown 03/28/2024 active Care Team Name Role Address Phone Organization Dates Aniceto Huynh PCP [facility] [address] [place], [place], [id number] [place] [address] (Office): : [facility] 04/28/2025 - present Griselda Thrasher [facility] [place], [place], [id number] [place] [address] (Office): : [facility] 04/28/2025 - present Alexsander Cordon [address] [place] [address], [address] [place] [address] (Office): : [facility] 04/28/2025 - present Olga Romero [address], [place], [address], [facility] (Office): : [place] 04/28/2025 - present Goals Section Goals Description Status Target Date Advanced Directives will be honored. Active 04/13/2026 Medication benefits with no adverse effects [facility] next review Active 04/13/2026 Prevent/heal wounds and prev ent avoidable skin breakdown through next review Active 04/13/2026 Resident will be comfortable as measured by no symptoms of pain or discomfort through next review Active 04/13/2026 Resident will be free from a dverse side effects of antiplatelet through the next review Active 04/13/2026 Resident will have decreased risk for falls through nursing interventions through next review Active 04/13/2026 Resident will have toileting needs met by staff through nursing interventions daily Active 04/13/2026 Resident will have weight re duction per physician prescribed weight loss program through next review Active 04/13/2026 The resident will be able to return to the [facility]. Active 04/13/2026 The resident will be free fr om complications related to infection through the review date. Active 04/13/2026 The resident will be free of any discomfort or adverse side effects of diuretic therapy through the review date. Active 0 04/13/2026 The resident will comply with diet through next review Active 04/13/2026 The resident will have no co mplications r/t to the skin injury by the review date Active 04/13/2026 The resident will have no co mplications related to SOB though the review date. Active 04/13/2026 The resident will have no co mplications related to diabetes through the review date. Active 04/13/2026 Will achieve maximum functional mobility through next review Active 04/13/2026 Will achieve maximum functional mobility through next review Active 04/13/2026 Will attend/participate in a ctivities of choice through next review Active 04/13/2026 Will benefit from medication without adverse effects through next review Active 04/13/2026 Will express/exhibit satisfa ction with stay and care through next review Active 04/13/2026 Will have needs met by [facility] of staff as needed through next review Active 04/13/2026 Will have no cardiac complications through next review Active 04/13/2026 Will not exhibit an avoidable decline in mood th rough next review Active 04/13/2026 Immunizations Immunization Status Vaccine Details Vaccine Code CodeSystem Date Notes Influenza completed Influenza, high-dose, split virus, quadrivalent, injectable, preservative free 197 CVX created date: 05/01/2025 administer ed date: 08/16/2024 TB 2 Step Mantoux Skin Test completed tuberculin skin test; unspecified formulation lotNumber: [id number] expiry: 10/16/2025 Mfg: PAR Given 0.1 ml Right Forearm intradermally Step 2 of Multi-step with next step required 98 CVX created date: 04/05/2024 consent date: 04/04/2024 administer ed date: 04/05/2024 TB 2 Step Mantoux Skin Test completed tuberculin skin test; unspecified formulation lotNumber: [id number] expiry: 10/16/2025 Mfg: PAR Given 0.1 ml Left Forearm intradermally Step 1 of Multi-step with next step required 98 CVX created date: 03/29/2024 consent date: 03/28/2024 administer ed date: 03/29/2024 Educated by HIRAM Valadez on 03/28/2024 COVID-19 Vaccine Single Dose completed unknown vaccine or immune globulin 999 CVX created date: 03/29/2024 administer ed date: 04/29/2021 J&J Flu Vaccine Prior To Admission (historical only) completed unknown vaccine or immune globulin 999 CVX created date: 03/29/2024 administer ed date: 08/16/2020 Medications Section Medication Name Status Code CodeSystem Dose Route Frequency Admin Type Sig Text Start Date End Date Aspirin Oral Tablet active 81 mg Oral one time a day Routine Give 81 mg by mouth one time a day for Mild Pain 2024 - HYDROcodone-A cetaminophen Oral Tablet 10-325 MG aborted 201601 RXNORM 1 tablet Oral as needed PRN Give 1 tablet by mouth every 6 hours as needed for modera te pain relate d to CHRONI C PAIN SYNDRO ME (G89.4 );ACQU IRED ABSENC E OF LEFT LEG BELOW KNEE (Z89.5 12);UN SPECIF IED FRACTU RE OF RIGHT TOE(S) , SUBSEQ UENT ENCOUN TER FOR FRACTU RE WITH ROUTIN E HEALIN G (S92.9 11D) 05/01 Dapagliflozin Propanediol Oral Tablet 10 MG active 261542 9 RXNORM 10 mg Oral one time a day Routine Give 10 mg by mouth one time a day for heart failur e 2024 - metroNIDAZOLE Oral Tablet aborted 500 mg Oral three times a day Routine Give 500 mg by mouth three times a day for infect ion 04/28 levoFLOXacin Oral Tablet aborted 750 mg Oral one time a day Routine Give 750 mg by mouth one time a day for infect ion 04/28 DULoxetine HCl Oral Capsule Delayed Release Sprinkle 60 MG aborted 964520 RXNORM 60 mg Oral two times a day Routine Give 60 mg by mouth two times a day for depres baudilio 04/28 Atorvastatin Calcium Oral Tablet aborted 40 mg Oral every maintenance mechanic 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 Routine Give 40 mg by mouth every maintenance mechanic 2nd shift for hyperl ipidem ia 04/30 Pregabalin Oral Capsule 100 MG active 712891 RXNORM 100 mg Oral two times a day Routine Give 100 mg by mouth two times a day for rls relate d to MUSCLE WASTIN G AND ATROPH Y, NOT ELSEWH ERE CLASSI FIED, UNSPEC IFIED SITE (M62.5 0) 2024 - Spironolacton e Oral Tablet active 25 mg Oral one time a day Routine Give 25 mg by mouth one time a day for heart failur e 2024 - HumaLOG Injection Solution aborted 12 unit Subcuta neous before meals and at bedtime Routine Inject 12 unit subcut aneous ly before meals and at bedtim e for diabet es 04/28 metFORMIN HCl Oral Tablet aborted 500 mg Oral three times a day Routine Give 500 mg by mouth three times a day for diabet es relate d to 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, UNSPEC IFIED (E11.4 0) 05/01 Ranolazine ER Oral Packet 1000 MG aborted 640600 3 RXNORM 1000 mg Oral two times a day Routine Give 1000 mg by mouth two times a day for cad 05/01 traZODone HCl Oral Tablet aborted 100 mg Oral every maintenance mechanic 2nd shift Routine Give 100 mg by mouth every maintenance mechanic 2nd shift for xochitl astudillo 05/01 MiraLax Oral Packet 17 GM aborted 878872 RXNORM 1 packet Oral one time a day Routine Give 1 packet by mouth one time a day for nivia pation 04/29 Insulin Glargine Subcutaneous Solution aborted 60 unit Subcuta neous two times a day Routine Inject 60 unit subcut aneous ly two times a day for diabet es 04/28 Ezetimibe Oral Tablet 10 MG active 553753 RXNORM 1 tablet Oral at bedtime Routine Give 1 tablet by mouth at bedtim e for hyperl ipidem ia relate d to HYPERL IPIDEM IA, UNSPEC IFIED (E78.5 ) 2024 - HumaLOG KwikPen Subcutaneous Solution Pen-injector 100 UNIT/ML aborted 259051 0 RXNORM 12 unit Subcuta neous before meals and at bedtime Routine Inject 12 unit subcut aneous ly before meals and at bedtim e for DM 04/28 DULoxetine HCl Oral Capsule Delayed Release Particles 60 MG active 858431 RXNORM 1 capsul e Oral two times a day Routine Give 1 capsul e by mouth two times a day for Xochitl astudillo relate d to MAJOR DEPRES SIVE DISORD ER, RECURR ENT, 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 ) 2024 - traMADol HCl Oral Tablet 50 MG active 895708 RXNORM 1 tablet Oral as needed PRN Give 1 tablet by mouth every 6 hours as needed for pain 2024 - Bactrim DS Oral Tablet 800-160 MG aborted 903307 RXNORM 1 tablet Oral two times a day Routine Give 1 tablet by mouth two times a day for infect ion 04/28 Ramipril Oral Capsule 5 MG active 680895 RXNORM 1 capsul e Oral one time a day Routine Give 1 capsul e by mouth one time a day for HTN 2024 - Xarelto Oral Tablet active 2.5 mg Oral two times a day Routine Give 2.5 mg by mouth two times a day relate d to 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[place]Z RY ARTERY WITHOU T ANGINA PECTOR IS (I25.1 0) 2024 - HumaLOG KwikPen Subcutaneous Solution Pen-injector 100 UNIT/ML aborted 919181 0 RXNORM n/a n/a Subcuta neous before meals and at bedtime Routine Inject as per partha g scale: if 0 - 59 = 0 units Notify MD; 60 - 200 = 0 units; 201 - 250 = 1 unit; 251 - 300 = 2 units; 301 - 350 = 3 units; 351 - 400 = 4 units; 401 - 450 = 5 units; 451 - 1000 = 0 units Notify MD, subcut aneous ly before meals and at bedtim e for DM 05/01 Bactrim DS Oral Tablet 800-160 MG active 186790 RXNORM 1 tablet Oral two times a day Routine Give 1 tablet by mouth two times a day for infect ion for 20 Admini strati ons 05/09 Metoprolol Tartrate Oral Tablet 100 MG active 286218 RXNORM 1 tablet Oral two times a day Routine Give 1 tablet by mouth two times a day for HTN relate d to 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DE[place] RY ARTERY WITHOU T ANGINA PECTOR IS (I25.1 0) 2024 - metroNIDAZOLE Oral Tablet complete d 500 mg Oral three times a day Routine Give 500 mg by mouth three times a day for infect ion for 18 Admini strati ons 05/05 Lantus SoloStar Subcutaneous Solution Pen-injector 100 UNIT/ML active 021509 RXNORM 60 unit Subcuta neous two times a day Routine Inject 60 unit subcut aneous ly two times a day for DM 2024 - Isosorbide Mononitrate Oral Tablet active 60 mg Oral one time a day Routine Give 60 mg by mouth one time a day relate d to ESSENT IAL (PRIMA RY) HYPERT ENSION (I10) 2024 - hydrOXYzine HCl Oral Tablet 25 MG aborted 495941 RXNORM 1 tablet Oral at bedtime Routine Give 1 tablet by mouth at bedtim e for anxiet y 05/01 levoFLOXacin Oral Tablet complete d 750 mg Oral one time a day Routine Give 750 mg by mouth one time a day for infect ion for 6 Admini strati ons 05/05 NovoLOG FlexPen Subcutaneous Solution Pen-injector 100 UNIT/ML active 973296 4 RXNORM 18 unit Subcuta neous three times a day Routine Inject 18 unit subcut aneous ly three times a day for DM 2024 - MiraLax Oral Packet 17 GM active 147454 RXNORM 17 gram Oral one time a day Routine Give 17 gram by mouth one time a day for consti pation 2024 - HYDROcodone-A cetaminophen Oral Tablet 10-325 MG aborted 547170 RXNORM 1 tablet Oral as needed PRN Give 1 tablet by mouth every 6 hours as needed for pain 04/30 Atorvastatin Calcium Oral Tablet active 40 mg Oral at bedtime Routine Give 40 mg by mouth at bedtim e for hyperl ipidem ia relate d to HYPERL IPIDEM IA, UNSPEC IFIED (E78.5 ) 2024 - hydrOXYzine HCl Oral Tablet 25 MG active 531940 RXNORM 1 tablet Oral at bedtime Routine Give 1 tablet by mouth at bedtim e for anxiet y 2024 - traZODone HCl Oral Tablet active 100 mg Oral at bedtime Routine Give 100 mg by mouth at bedtim e for depres baudilio 2024 - Ranolazine ER Oral Tablet Extended Release 12 Hour 1000 MG active 014451 RXNORM 1 tablet Oral two times a day Routine Give 1 tablet by mouth two times a day for CAD 2024 - metFORMIN HCl Oral Tablet active 500 mg Oral two times a day Routine Give 500 mg by mouth two times a day for diabet es relate d to 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, UNSPEC IFIED (E11.4 0) 2024 - [place] Miscellaneous 30G X 5 MM active 1 applic ation Subcuta neous as needed PRN Inject 1 applic ation subcut aneous ly as needed for Use to Rekristae r 2024 - HYDROcodone-A cetaminophen Oral Tablet 10-325 MG active 572971 RXNORM 1 tablet Oral as needed PRN Give 1 tablet by mouth every 6 hours as needed for modera te pain relate d to CHRONI C PAIN SYNDRO ME (G89.4 );ACQU IRED ABSENC E OF LEFT LEG BELOW KNEE (Z89.5 12);UN SPECIF IED FRACTU RE OF RIGHT TOE(S) , SUBSEQ UENT ENCOUN TER FOR FRACTU RE WITH ROUTIN E HEALIN G (S92.9 11D) for 7 Days 05/08 hydrOXYzine HCl Oral Tablet 25 MG active 352338 RXNORM 1 tablet Oral as needed PRN Give 1 tablet by mouth every 6 hours as needed for anxiet y for 14 Days 05/16 Mounjaro Subcutaneous Solution Auto-injector 2.5 MG/0.5ML active 203619 4 RXNORM 2.5 mg Subcuta neous one time a day Routine Inject 2.5 mg subcut aneous ly one time a day every 7 day(s) for Type 2 DM; morbid obesit y; HF for 4 Weeks 05/31 Multivitamin- Minerals Oral Tablet active 1 tablet Oral one time a day Routine Give 1 tablet by mouth one time a day for PMH/Lo w albumi n 2024 - Vitamin D (Ergocalcifer ol) Oral Capsule 21787 UNIT active 1 capsul e Oral one time a day Routine Give 1 capsul e by mouth one time a day every Sat for supple ment 2024 - Mental Status Section Date Assessment Total Score Description 05/02/2024 BIMS 15 cognitively int act CAM 0 No delirium ind icated PHQ-9 00 03/30/2024 BIMS 11 moderate cognit shade impairment CAM 0 No delirium ind icated PHQ-9 12 moderate depres baudilio Plan of Treatment Section Test Code Code System Name Date BASIC MET PNL INCL GFR (BMP) 05/08/2025 CBC W/DIFF 05/08/2025 UA W/CULTURE IF INDICATED Problems Problem # Description Date of onset Resolved Date Code CodeSystem Concern Status 1 ACQUIRED ABSENCE OF OTHER RIGHT TOE(S) 04/28/[address] active 2 ANXIETY DISORDER, UNSPECIFIED 04/28/[address] active 3 CHRONIC PAIN SYNDROME 04/28/[address] active 4 LOCAL INFECTION OF THE SKIN AND SUBCUTANEOUS TISSUE, UNSPECIFIED 04/28/[address] active 5 MORBID (SEVERE) OBESITY DUE TO EXCESS CALORIES 04/28/[address] active 6 MORBID (SEVERE) OBESITY WITH ALVEOLAR HYPOVENTILATION 04/28/[address] active 7 MUSCLE WASTING AND ATROPHY, NOT ELSEWHERE CLASSIFIED, MULTIPLE SITES 04/28/[address] active 8 OSTEOMYELITIS, UNSPECIFIED 04/28/[address] active 9 OTHER ABNORMALITIES OF GAIT AND MOBILITY 04/28/[address] active 10 TYPE 2 DIABETES MELLITUS WITH OTHER CIRCULATORY COMPLICATIONS 04/28/[address] active 11 UNSPECIFIED FRACTURE OF RIGHT TOE(S), SUBSEQUENT ENCOUNTER FOR FRACTURE WITH ROUTINE HEALING 04/28/[address] active 12 ACQUIRED ABSENCE OF LEFT LEG BELOW KNEE 03/28/[address] active 13 ATHEROSCLEROTIC HEART DISEASE OF [place] CORONARY ARTERY WITHOUT ANGINA PECTORIS 03/28/[address] active 14 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 AND ANKLE, LEFT LOWER LEG, SUBSEQUENT ENCOUNTER 03/28/2004/28/[address] completed 15 CONSTIPATION, UNSPECIFIED 03/28/[address] active 16 ESSENTIAL (PRIMARY) HYPERTENSION 03/28/[address] active 17 HYPERLIPIDEMIA, UNSPECIFIED 03/28/[address] active 18 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 03/28/[address] active 19 MAJOR DEPRESSIVE DISORDER, RECURRENT, UNSPECIFIED 03/28/[address] active 20 MUSCLE WASTING AND ATROPHY, NOT ELSEWHERE CLASSIFIED, UNSPECIFIED SITE 03/28/2004/28/[address] completed 21 MUSCLE WEAKNESS (GENERALIZED) 03/28/[address] active 22 OLD MYOCARDIAL INFARCTION 03/28/[address] active 23 PRESENCE OF CORONARY ANGIOPLASTY IMPLANT AND GRAFT 03/28/[address] active 24 RESPIRATORY DISORDERS IN DISEASES CLASSIFIED ELSEWHERE 03/28/20 24 04/28/[address] completed 25 TAKOTSUBO SYNDROME 03/28/[address] active 26 TYPE 2 DIABETES MELLITUS WITH DIABETIC NEUROPATHY, UNSPECIFIED 03/28/[address] active 27 UNSPECIFIED ABNORMALITIES OF GAIT AND MOBILITY 03/28/2004/28/[address] completed 28 VITAMIN D DEFICIENCY, UNSPECIFIED 03/28/[address] active Reason for Referral No Reasons for Referral Entered Diagnostic Results Result Code Code System Date Test Result Interpretation Reference Range Status Notes [id number] [facility] 05/08 BASIC MET PNL INCL GFR (BMP) / CBC W/DIFF Resulted Result for: BEE COLON ( 1970 , F) 2345-7 [facility] 05/08 GLUCOSE Value: PENDING Units: Normal Pending 2951-2 [facility] 05/08 SODIUM Value: PENDING Units: Normal Pending 2823-3 [facility] 05/08 POTASSIUM Value: PENDING Units: Normal Pending 2075-0 [facility] 05/08 CHLORIDE Value: PENDING Units: Normal Pending 2028-9 [facility] 05/08 CARBON DIOXIDE (CO2) Value: PENDING Units: Normal Pending 3094-0 [facility] 05/08 BUN (UREA NITROGEN) Value: PENDING Units: Normal Pending 2160-0 [facility] 05/08 CREATININE Value: PENDING Units: Normal Pending 3097-3 [facility] 05/08 BUN/CREATININE RATIO Value: PENDING Units: Normal Pending 11589-5 [facility] 05/08 GFR- Value: PENDING Units: Normal Pending 02662-0 [facility] 05/08 SDL-NAC-ORAMOV N CITIZEN [place] Value: PENDING Units: Normal Pending 58153-4 [facility] 05/08 CALCIUM Value: PENDING Units: Normal Pending 6690-2 [facility] 05/08 WBC Value: PENDING Units: Normal Pending 789-8 [facility] 06/23 /2025 RBC Value: PENDING Units: Normal Pending 718-7 [facility]INC 05/08 HEMOGLOBIN Value: PENDING Units: Normal Pending 4544-3 [facility] 05/08 HEMATOCRIT Value: PENDING Units: Normal Pending 08849-8 [facility]INC 05/08 MCV Value: PENDING Units: Normal Pending 785-6 LOINC 05/08 MCH Value: PENDING Units: Normal Pending 786-4 LOINC 05/08 MCHC Value: PENDING Units: Normal Pending 788-0 [facility]INC 05/08 RDW Value: PENDING Units: Normal Pending 777-3 LOINC 05/08 PLATELET Value: PENDING Units: Normal Pending 09666-1 [facility]INC 05/08 MPV Value: PENDING Units: Normal Pending 123-999 99-9 LOINC 05/08 ANISOCYTOSIS Value: PENDING Units: Normal Pending 123-999 99-9 LOINC 05/08 HYPOCHROMASIA Value: PENDING Units: Normal Pending 123-999 99-9 LOINC 05/08 MICROCYTOSIS Value: PENDING Units: Normal Pending 738-5 LOINC 05/08 MACROCYTOSIS Value: PENDING Units: Normal Pending 770-8 [facility]INC 05/08 NEUTROPHILS Value: PENDING Units: Normal Pending 736-9 [facility] 05/08 LYMPHS Value: PENDING Units: Normal Pending 52274-7 [facility] 05/08 MONOCYTES Value: PENDING Units: Normal Pending 713-8 [facility]INC 05/08 EOS Value: PENDING Units: Normal Pending 706-2 LOINC 05/08 BASO Value: PENDING Units: Normal Pending 89866-1 LOINC 05/08 LG UNSTAINED CELLS (SUJIT) Value: PENDING Units: Normal Pending 751-8 LOINC 05/08 NEUTS (ABSOLUTE) Value: PENDING Units: Normal Pending 731-0 LOINC 05/08 LYMPHS (ABSOLUTE) Value: PENDING Units: Normal Pending 742-7 LOINC 05/08 MONOCYTES (ABSOLUTE) Value: PENDING Units: Normal Pending 711-2 LOINC 05/08 EOS (ABSOLUTE) Value: PENDING Units: Normal Pending 704-7 LOINC 05/08 BASO (ABSOLUTE) Value: PENDING Units: Normal Pending 123-999 99-9 [facility] 05/08 SUJIT (ABSOLUTE) Value: PENDING Units: Normal Pending 771-6 LOINC 05/08 NUCLEATED RBC Value: PENDING Units: Normal Pending 123-999 99-9 [facility] 05/08 HYPERCHROMASIA Value: PENDING Units: Normal Pending PU7280- 6 [facility] 05/08 UA W/CULTURE IF INDICATED Resulted Result for: BEE COLON ( 1970 , F) 5778-6 [facility] 05/08 COLOR Value: PENDING Units: Normal Pending 14978-9 [facility] 05/08 CLARITY Value: PENDING Units: Normal Pending 2349-9 [facility] 05/08 GLUCOSE,UR Value: PENDING Units: Normal Pending 1977-8 [facility] 05/08 BILIRUBIN,UR Value: PENDING Units: Normal Pending 03694-5 [facility] 05/08 KETONES,UR Value: PENDING Units: Normal Pending 2965-2 [facility] 05/08 SPECIFIC GRAVITY Value: PENDING Units: Normal Pending 5794-3 [facility] 05/08 BLOOD,UR Value: PENDING Units: Normal Pending 2756-5 [facility] 05/08 PH, URINE Value: PENDING Units: Normal Pending 16838-8 [facility] 05/08 PROTEIN,UR Value: PENDING Units: Normal Pending 5818-0 [facility] 05/08 UROBILINOGEN,U R Value: PENDING Units: Normal Pending 5802-4 [facility] 05/08 NITRITE,UR Value: PENDING Units: Normal Pending 5799-2 [facility] 05/08 LEUKOCYTES,UR Value: PENDING Units: Normal Pending 97692-1 [facility] 05/08 RBC,UR Value: PENDING Units: Normal Pending 5821-4 [facility] 05/08 WBC,UR Value: PENDING Units: Normal Pending 22916-9 [facility] 05/08 EPITHELIAL CELL Value: PENDING Units: Normal Pending 07257-4 [facility] 05/08 BACTERIA,UR Value: PENDING Units: Normal Pending 67464-3 [facility] 05/08 HYALINE CASTS Value: PENDING Units: Normal Pending 123-999 99-9 [facility] 05/08 REMARKS Value: PENDING Units: Normal Pending 5774-5 [facility] 05/08 CALCIUM OXALATE CRYSTAL Value: PENDING Units: Normal Pending 5814-9 [facility] 05/08 TRIPLE PHOSPHATE CRYSTAL Value: PENDING Units: Normal Pending 5817-2 [facility] 05/08 URIC ACID CRYSTALS Value: PENDING Units: Normal Pending 8246-1 [facility] 05/08 AMORPHOUS Value: PENDING Units: Normal Pending 8247-9 [facility] 05/08 MUCOUS Value: PENDING Units: Normal Pending 5793-5 [facility] 05/08 GRANULAR CASTS Value: PENDING Units: Normal Pending 23249-4 [facility] 05/08 BUDDING YEAST Value: PENDING Units: Normal Pending 8248-7 [facility] 05/08 SPERMATOZOA Value: PENDING Units: Normal Pending 123-999 99-9 [facility] 05/08 TRICHOMONAS Value: PENDING Units: Normal Pending 123-999 99-9 [facility] 05/08 TRANS EPITHELIAL CELLS Value: PENDING Units: Normal Pending 09984-1 [facility] 05/08 RENAL EPITHELIAL CELLS Value: PENDING Units: Normal Pending 5807-3 [facility] 05/08 RBC CASTS Value: PENDING Units: Normal Pending 5820-6 [facility] 05/08 WBC CASTS Value: PENDING Units: Normal Pending 94773-2 [facility] 05/08 BROAD CASTS Value: PENDING Units: Normal Pending 5819-8 [facility] 05/08 WAXY CASTS Value: PENDING Units: Normal Pending 123-999 99-9 [facility] 05/08 AMORPHOUS PHOS CRYSTALS Value: PENDING Units: Normal Pending 27382-8 [facility] 05/08 AMORPHOUS URATE CRYSTALS Value: PENDING Units: Normal Pending 5766-1 [facility] 05/08 AMMONIUM BIURATE CRYSTALS Value: PENDING Units: Normal Pending 123-999 99-9 [facility] 05/08 AMPICILLIN CRYSTALS Value: PENDING Units: Normal Pending 5771-1 [facility] 05/08 BILIRUBIN CRYSTALS Value: PENDING Units: Normal Pending 5777-8 [facility] 05/08 CHOLESTEROL CRYSTALS Value: PENDING Units: Normal Pending 5775-2 [facility] 05/08 CALCIUM PHOS CRYSTALS Value: PENDING Units: Normal Pending 5784-4 [facility] 05/08 CYSTINE CRYSTALS Value: PENDING Units: Normal Pending 5798-4 [facility] 05/08 LEUCINE CRYSTALS Value: PENDING Units: Normal Pending 5812-3 [facility] 05/08 SULFONAMIDE CRYSTALS Value: PENDING Units: Normal Pending 5815-6 [facility] 05/08 TYROSINE CRYSTALS Value: PENDING Units: Normal Pending 5809-9 [facility] 05/08 REDUCING SUBSTANCE Value: PENDING Units: Normal Pending 76736-9 [facility] 05/08 WBC CLUMPS Value: PENDING Units: Normal Pending [phone] 99-9 [facility] 05/08 YEAST W/PSEUDOHYPHAE Value: PENDING Units: Normal Pending [phone] 99-9 [facility] 05/08 CALCIUM CARBONATE CRYSTALS Value: PENDING Units: Normal Pending [phone] 99-9 [facility] 05/08 UA TO CX TRIGGER Value: PENDING Units: Normal Pending [id number] [facility] 05/03 CMP-COMPREHENS SHADE METABOLIC PNL / LIPID PANEL w/calc LDL / GLYCO-HGBA1C / CBC W/DIFF / VITAMIN B12 / VITAMIN D 25-OH TOTAL Completed Result for: BEE COLON ( 1970 , F) 1759-0 [facility] 05/03 A/G RATIO Value: 1.1 Units: Normal 0.8-2.0 Final 3097-3 [facility] 05/03 BUN/CREATININE RATIO Value: 13 Units: Normal 6-25 Final 95445-8 [facility] 05/03 LDLc/HDL RATIO Value: 0.5 Units: Normal <4:1 Final 123-999 99-9 [facility] 05/03 ANISOCYTOSIS Value: 1+ Units: Abnormal NEGATIVE Final 770-8 [facility] 05/03 NEUTROPHILS Value: 54.0 Units: % Normal 40.0-80.0 Final 736-9 [facility] 05/03 LYMPHS Value: 29.1 Units: % Normal 13.0-48.0 Final 45474-1 [facility] 05/03 MONOCYTES Value: 11.5 Units: % Normal 2.0-12.0 Final 713-8 [facility] 05/03 EOS Value: 5.0 Units: % Normal 0.0-8.0 Final 706-2 [facility] 05/03 BASO Value: 0.4 Units: % Normal 0.0-2.0 Final 788-0 [facility] 05/03 RDW Value: 16.6 Units: % High 11.0-16.0 Final 4548-4 [facility] 05/03 GLYCOHEMOGLOBI N-HGBA1C Value: 12.5 Units: % High 4.1-6.1 Final 4544-3 [facility] 05/03 HEMATOCRIT Value: 34.2 Units: % Low 36.0-48.0 Final 59512-2 [facility] 05/03 MCV Value: 85.6 Units: fL Normal 80.0-100.0 Final 38488-2 [facility] 05/03 MPV Value: 9.5 Units: fL Normal 6.5-12.0 Final 786-4 [facility] 05/03 MCHC Value: 32.4 Units: g/dL Normal 31.0-36.5 Final 718-7 [facility] 05/03 HEMOGLOBIN Value: 11.1 Units: g/dL Low 12.0-16.0 Final 2885-2 [facility] 05/03 PROTEIN, TOTAL Value: 5.2 Units: g/dL Low 6.0-8.3 Final 1751-7 [facility] 05/03 ALBUMIN Value: 2.7 Units: g/dL Low 3.5-5.5 Final 67686 [facility] 05/03 ALKALINE PHOS Value: 64 Units: [IU]/L Normal 38-126 Final 1920-8 [facility] 05/03 AST (SGOT) Value: 18 Units: [IU]/L Normal 14-36 Final 1742-6 [facility] 05/03 ALT (SGPT) Value: 12 Units: [IU]/L Normal 7-52 Final 6690-2 [facility] 05/03 WBC Value: 7.9 Units: K/cmm Normal 4.5-10.8 Final 777-3 [facility] 05/03 PLATELET Value: 192 Units: K/cmm Normal 150-450 Final 751-8 [facility] 05/03 NEUTS (ABSOLUTE) Value: 4.30 Units: K/uL Normal 1.50-7.60 Final 731-0 [facility] 05/03 LYMPHS (ABSOLUTE) Value: 2.30 Units: K/uL Normal 0.90-5.50 Final 742-7 [facility] 05/03 MONOCYTES (ABSOLUTE) Value: 0.90 Units: K/uL Normal 0.15-1.10 Final 711-2 [facility] 05/03 EOS (ABSOLUTE) Value: 0.40 Units: K/uL Normal 0.00-0.80 Final 789-8 [facility] 05/03 RBC Value: 4.00 Units: 10*3/mm3 Normal 3.90-5.40 Final 2951-2 [facility] 05/03 SODIUM Value: 140 Units: mEq/L Normal 136-145 Final 282-3 [facility] 05/03 POTASSIUM Value: 4.5 Units: mEq/L Normal 3.5-5.3 Final 0 [facility] 05/03 CHLORIDE Value: 105 Units: mEq/L Normal 98-110 Final 2028-07 [facility] 05/03 CARBON DIOXIDE (CO2) Value: 25 Units: mEq/L Normal 21-33 Final 3090 [facility] 05/03 BUN (UREA NITROGEN) Value: 17 Units: mg/dL Normal 7-25 Final 0 [facility] 05/03 CREATININE Value: 1.3 Units: mg/dL Normal 0.6-1.3 Final 1974-12 [facility] 05/03 BILIRUBIN, TOTAL Value: 0.2 Units: mg/dL Normal 0.2-1.2 Final 2093-01 [facility] 05/03 CHOLESTEROL Value: 81 Units: mg/dL Normal <200 Final 8 [facility] 05/03 TRIGLYCERIDE Value: 182 Units: mg/dL High <150 Final 2085-07 [facility] 05/03 HDL Value: 29 Units: mg/dL Normal >50 Final 00850-5 [facility] 05/03 LDL CALCULATED Value: 16 Units: mg/dL Normal <100 Final 04616-6 [facility] 05/03 eAG (Mean Glucose) Value: 312 Units: mg/dL High 70-120 Final 59897-3 [facility] 05/03 CALCIUM Value: 8.3 Units: mg/dL Low 8.6-10.3 Final 2091-05 [facility] 05/03 VLDLc Value: 36 Units: mg/dL High 5-30 Final 2345-05 [facility] 05/03 GLUCOSE Value: 195 Units: mg/dL High Final GLUCOSE, FASTING 65-99 mg/dL GLUCOSE, NON-FASTI NG 65-125 mg/dL 20883-5 [facility] 05/03 GFR- Value: 51 Units: mL/min/{ 1.73_m2} Low >60 Final 36819-6 [facility] 05/03 MMD-OGV-JWVAGP N CITIZ[place] Value: 42 Units: mL/min/{ 1.73_m2} Low >60 Final Stage of CKD eGFR (mL/min/1 .73 square meters) Stage 1 >/= 90 or > 90 Stage 2 60 - 89 Stage 3 30 - 59 Stage 4 15 - 29 Stage 5 </= 14 or < 15 GFR is reliable for adults 17 to 69 years with stable kidney function. 75006-2 [facility] 05/03 VITAMIN D 25-OH TOTAL Value: 9 Units: ng/mL Low 30-100 Final 771-6 [facility] 05/03 NUCLEATED RBC Value: 0.3 Units: {RBC}/10 0{WBC} Normal <1.0 Final 785-6 [facility] 05/03 MCH Value: 27.8 Units: pg Normal 26.0-35.0 Final 2132-07 [facility] 05/03 VITAMIN B12 Value: 292 Units: pg/mL Normal 211-911 Final Test Code Code System Name Date BASIC MET PNL INCL GFR (BMP) 05/08/2025 CBC W/DIFF 05/08/2025 UA W/CULTURE IF INDICATED CMP-COMPREHENSIVE METABOLIC PNL 05/03/2025 LIPID PANEL w/calc LDL 05/03 CBC W/DIFF 05/03/2025 GLYCO-HGBA1C 05/03/2025 CBC W/DIFF 05/03/2025 CMP-COMPREHENSIVE METABOLIC PNL 05/03/2025 CBC W/DIFF 05/03/2025 CMP-COMPREHENSIVE METABOLIC PNL 05/03/2025 LIPID PANEL w/calc LDL 05/03 GLYCO-HGBA1C 05/03/2025 CMP-COMPREHENSIVE METABOLIC PNL 05/03/2025 LIPID PANEL w/calc LDL 05/03 CMP-COMPREHENSIVE METABOLIC PNL 05/03/2025 05/03/2025 CBC W/DIFF 05/03/2025 05/03/2025 Social History Social History Observation Description Start Date End Date Code Code System Current Smoking Status Tobacco smoking consumption unknown 796331572 SNOMED CT Sex Assigned At Female 1970 10880-7 [facility] Gender Identity Vital Signs Code Code System Vitals Name Values and Units Timing Information 2339-0 [facility] Blood Sugar Tgcvm=073.0 Units=mg/dL 05/08/2025 9279-1 [facility] Respiratory Rate Value=18.0 Units=/m in 05/08/2025 8462-4 [facility] Blood Pressure-Diastolic Value=65 Un its=mmHg 05/08/2025 8480-6 [facility] Blood Pressure-Systolic Sguat=216 Un its=mmHg 05/08/2025 8310-5 [facility] Body Temperature Value=97.8 Units= F 05/08/2025 8867-4 [facility] Heart rate Value=82.0 Units=/min 23746-7 [facility] O2 % dC Oximetry Value=93.0 Units= % 05/08/2025 64260-1 [facility] Pain Level Value=0.0 05/08/2025 19361-5 [facility] Weight Seymq=137.9 Units=Lbs 8302-2 [facility] Height Value=66.0 Units=Inches 04/28/2025
--- OUTSIDE RECORDS SUMMARY | 2025-05-10 09:55 | XMS_ITS | Encounter Summary ---
Author Organization [employer] Address [address] [place] [address] Care Team Providers Care Manager Environmental Affairs Name Role Phone Unavailable Primary Care Provider Unavailabl e Encounter Details Date Type Department Care Team (Late st Contact Info) Description 05/12/2022 Transcribed Document [facility] Family Medicine [facility] [place] [address] ProviderEvangelista MD [address] [place] [address] Social History Tobacco Use Types [...] Source : Measured Height Entry Format : Rico Height, Feet : 0 ft(Converted to: 0 cm, 0 Inch) Height, Inches : 66.5 Inch(Converted to: 5 ft 6 Inch, 168.91 cm) Clinical Height : 168.91 cm Weight Source : Standing scale Weight Entry Format : Rico Clinical Dosing Weight : 131.82 kg Weight, Pounds : 290 lb Body Surface Area (BSA) : 2.36 m2 Body Mass Index : 46.2 kg/m2 (>HHI) [place] Body Weight : 60 kg ELY ARAYA RN - 05/13/2022 10:42 EDT Health Histories Smoking Status : Former smoker, quit more than 30 days ago Smokeless Tobacco Status : Never DEMETRICE WANG RN - 05/12/2022 8:44 EDT Implant/Device Type, Skidder and Model : spinal cord stimulator; cardiac [...] DEMETRICE WANG RN - 05/12/2022 8:28 EDT [place] Suicide Severity Rating Scale (C-SSRS) CSSRS Past [...] Bee Legal Guardian : No Support Person/Patient Patented Hogshead Assembler : Yes Support Person/Pt Rep Name : Nelida Colon - mother Support Person/Pt Rep Contact Information : [phone] Want Family/Rep/Phys Notified of Admit : No [...] Obtained From : Patient Primary Language : Nauruan Preferred Communication Mode : Verbal Communication Barrier : None Director Auto Needed : No DEMETRICE WANG RN - [...]
--- OUTSIDE RECORDS SUMMARY | 2025-05-10 09:55 | XMS_ITS | Encounter Summary ---
Author Organization [employer] Address [address] [place] [address] Care Team Providers Care Tong Hooker Name Role Phone Unavailable Primary Care Provider Unavailabl e Encounter Details Date Type Department Care Team (Late st Contact Info) Description 08/12/2019 Transcribed Document [facility] Family Medicine [facility] [place] [address] ProviderEvangelista MD [address] [place] [address] Social History Tobacco Use Types [...]
--- OUTSIDE RECORDS SUMMARY | 2025-05-10 09:55 | XMS_ITS | Encounter Summary ---
Author Organization [employer] Address [address] [place] [address] Care Team Providers Care Coil Machine Operator Name Role Phone Unavailable Primary Care Provider Unavailabl e Encounter Details Date Type Department Care Team (Late st Contact Info) Description 08/12/2019 Transcribed Document [facility] [place] [facility] [place] [address] ProviderEvangelista MD [address] [place] [address] Social History Tobacco Use Types [...] cord stimulator implantation with good coverage. 3. Rzlyzom-Vgsdr-Dxglx syndrome right foot. PROCEDURE/TEST ORDERED: Not present. PLAN: Will continue Ms. Colon on her current medication of Ostrander 10 mg. q.6 hours, Tramadol 50 mg. [...]
--- OUTSIDE RECORDS SUMMARY | 2025-05-10 09:55 | XMS_ITS | Encounter Summary ---
Author Organization [employer] Address [address] [place] [address] Care Team Providers Care Health Facilities Surveyor Name Role Phone Unavailable Primary Care Provider Unavailabl e Encounter Details Date Type Department Care Team (Late st Contact Info) Description 03/20/2022 Transcribed Document [facility] [place] [address] [place] [address] ProviderEvangelista MD [address] [place] [address] Social History Tobacco Use Types [...] Evangelista ProviderMD - 03/20/2022 9:01 AM CDT [facility] Main OR PostOp Summary Primary Physician: ANGELA GREEN DPM-POD Finalized Date/Time: 03/20/22 10:58:03 Pt. Name: BEE COLON/Sex: 1970 Female Med Rec #: [id number] Physician: ANGELA GREEN DPM-POD Financial #: [id number] Pt. Type: O Room/Bed: /6 Admit/Disch: 03/20/22 06:30:00 - Institution: [facility] Main OR PostOp Case Times Entry 1 In PACU II 03/20/22 09:56:00 Ready for PACU II 03/20/22 09:49:00 Discharge Discharge from PACU 03/20/22 10:56:00 II Last Modified By: Raji Matos RN-PATIENT CARE BEDSIDE NON-EXEMPT 03/20/22 10:58:00 [facility] Main OR PostOp Case Times Audit 03/20/22 10:58:00 Refrigerated Cargo Clerk: [id number] Modifier: [id number] <+> 1 Discharge from PACU II 03/20/22 10:57:51 Refrigerated Cargo Clerk: [id number] Modifier: [id number] <+> 1 Ready for PACU II Discharge Finalized By: Raji Matos, RN-PATIENT CARE BEDSIDE NON-EXEMPT Document Signatures Signed By: Raji Matos RN-PATIENT CARE BEDSIDE NON-EXEMPT 03/20/22 10:58 Electronically signed by At[facility] Conversion Gear Repair Supervisor Cerner at 03/05/2023 6:54 PM CDT documented in this encounter Plan of Treatment Not on file documented as of this encounter Visit Diagnoses Not on filedocumented in this encounter
[2025-05-10 12:00] VITALS: BP 95/46; PULSE 86; RESP 17; TEMP 36.7; O2SAT 98
[2025-05-10 14:57] LABS: Chloride 102 mmol/L (98-107); Sodium 136 mmol/L (136-145)
[2025-05-10 14:58] LABS: Potassium 5.6 mmoL/L (3.5-5.1)
[2025-05-10 15:00] LABS: Blood Urea Nitrogen 18 mg/dl (7-17)
[2025-05-10 15:01] LABS: Anion Gap 14.6 mEq/L (5-15); Carbon Dioxide 25 mmol/L (22.0-30.0); Creatinine Clearance Estimated 39 mL/min (50-200); Estimated Glomerular Filt Rate 39 ml/min (>60); GFR (African American) 47 ML/MIN (>60); Glucose 226 mg/dl (74-100)
[2025-05-10] MEDS: FUROSEMIDE 40MG/4ML VIAL 40 MG IV (15:48)
--- NOTE | 2025-05-10 15:49 | P.PN_ITS ---
<Statement entered by Levi Soria MD - 05/10/25 17:57> Rounded on patient after nurse practitioner. Personally examined and interviewed patient. Agree with exam findings and care plan as documented. Tremors improving. Patient overall doing well. Repeat potassium stable. If labs in the morning stable, anticipate discharge back to rehab Subjective *Date: 05/10/25 *Time: 16:03 Interval history: Patient awake, sitting up in the bed. Alert oriented. Patient states she is feeling much better today, orientation is much better. Involuntary movements are minimal. She states she slept well last night and was able to eat breakfast this morning. She discusses that she has been working well with physical therapy at [facility] and is ready to get back there to continue to get stronger and feel better. Medical Exam Vital signs and Labs for Last 24 Hours: Vital Signs Temp Pulse Pulse Resp BP Pulse Ox O2 Del Method 05/10/25 12:25 Room Air 05/10/25 12:00 98.1 F 86 17 95/46 L 98 05/10/25 10:55 Room Air 05/10/25 08:22 Room Air 05/10/25 08:00 98.2 F 85 16 100/50 L 94 L Room Air 05/10/25 08:00 Room Air 05/10/25 06:36 Room Air 05/10/25 05:00 Room Air 05/10/25 04:00 75 05/10/25 04:00 97.8 F 82 18 102/56 L 95 Room Air 05/10/25 03:00 Room Air 05/10/25 01:00 Room Air 05/10/25 00:00 85 05/10/25 00:00 98.3 F 86 20 124/66 96 Room Air 05/09/25 23:00 Room Air 05/09/25 21:00 Room Air 05/09/25 20:00 80 05/09/25 20:00 Room Air 05/09/25 20:00 98.5 F 85 17 117/72 92 L Room Air 05/09/25 17:58 Room Air 05/09/25 16:14 97.8 F 82 16 105/57 L 95 Room Air 05/09/25 16:03 Room Air 05/09/25 16:00 90 Intake and Output 05/09/25 05/10/25 05/10/25 23:59 07:59 15:59 Intake Total 480 / 1680 600 / 600 Output Total 725 / 1475 600 / 2500 1900 / 2500 Balance -245 / 205 -600 / -1900 -1300 / -1900 Intake: Intake, Oral Amount 480 / 480 600 / 600 Output: Output, Urine Amount 725 / 1475 600 / 2500 1900 / 2500 Other: Number of Unmeasured Voids 1 0 Number of Bowel Movements 1 Weight 128.185 kg Patient Weight 05/10/25 23:59 Weight 128.185 kg Laboratory Results - last 24 hr 05/09/25 15:42: POC Glucose 154 H 05/09/25 16:16: VBG pH 7.33, VBG pCO2 47.3, VBG pO2 42.5 H, VBG HCO3 24.4, VBG Total CO2 25.9, VBG O2 Saturation 75.1 H, VBG Base Excess -1.5, VBG Lactic Acid 1.3, Sodium 137, Potassium 5.8 H, Chloride 101, Carbon Dioxide 26, Anion Gap 15.8 H, BUN 17, Creatinine 1.60 H, Estimated Creat Clear 34, Estimated GFR 33 L, Est GFR ( Amer) 40 L, Glucose 156 H, Calcium 9.5, Ammonia < 9 L, Procalcitonin 0.075, TSH 2.64 05/09/25 20:40: POC Glucose 286 H 05/09/25 21:58: Sodium 135 L, Potassium 5.5 H, Chloride 102, Carbon Dioxide 24, Anion Gap 14.5, BUN 17, Creatinine 1.50 H, Estimated Creat Clear 36, Estimated GFR 36 L, Est GFR ( Amer) 43 L, Glucose 235 H D, Calcium 8.8 05/10/25 06:00: WBC 7.9, RBC 4.16 L, Hgb 11.2 L, Hct 36.1 L, MCV 86.8, MCH 26.9 L, MCHC 31.0 L, RDW 15.8, Plt Count 233, MPV 10.4, Neut % (Auto) 54.4, Lymph % (Auto) 29.7, Frio % (Auto) 8.8, Eos % (Auto) 6.0, Baso % (Auto) 0.8, Neut # (Auto) 4.3, Lymph # (Auto) 2.3, Frio # (Auto) 0.7, Eos # (Auto) 0.5 H, Baso # (Auto) 0.1, Sodium 136, Potassium 5.4 H, Chloride 102, Carbon Dioxide 26, Anion Gap 13.4, BUN 17, Creatinine 1.40 H, Estimated Creat Clear 39, Estimated GFR 39 L, Est GFR ( Amer) 47 L, Glucose 206 H, Calcium 8.8, Magnesium 2.1 D, Total Bilirubin 0.2, AST 30, ALT 15, Alkaline Phosphatase 62, Total Protein 6.4, Albumin 3.3 L, Globulin 3.1, Albumin/Globulin Ratio 1.1 05/10/25 06:02: POC Glucose 205 H 05/10/25 07:29: Chlamy pneumoniae PCR Not detected, Adenovirus (PCR) Not detected, B. pertussis DNA (PCR) Not detected, Coronavirus OC43 (PCR) Not detected, Coronavirus HKU1 (PCR) Not detected, Coronavirus 229E (PCR) Not detected, SARS-CoV-2 (PCR) Not detected, Coronavirus NL63 (PCR) Not detected, Human Metapneumovir PCR Not detected, Influenza A (H1) PCR Not detected, Influ A (H1N1/09) PCR Not detected, Influenza A (H3) PCR Not detected, Influenza Type A (PCR) Not detected, Influenza Type B (PCR) Not detected, M. pneumoniae (PCR) Not detected, Parainfluenza 1 (PCR) Not detected, Parainfluenza 2 (PCR) Not detected, Parainfluenza 3 (PCR) Not detected, Parainfluenza 4 (PCR) Not detected, RSV (PCR) Not detected, Entero/Rhino (PCR) Not detected 05/10/25 14:36: Sodium 136, Potassium 5.6 H, Chloride 102, Carbon Dioxide 25, Anion Gap 14.6, BUN 18 H, Creatinine 1.40 H, Estimated Creat Clear 39, Estimated GFR 39 L, Est GFR ( Amer) 47 L, Glucose 226 H, Calcium 9.0 I & O for Labs for Last 24 Hours: Intake & Output 05/07/25 05/08/25 05/09/25 05/10/25 23:59 23:59 23:59 23:59 Intake Total 120 / 1220 1680 / 1680 600 / 600 Output Total 1550 / 1550 1475 / 1475 2500 / 2500 Balance -1430 / -330 205 / 205 -1900 / -1900 Weight 130.181 kg 126.371 kg 128.185 kg Head: Present atraumatic Eyes: Present as per HPI ENT: Present normal exam Neck: Present normal inspection Respiratory: Present CTA bilaterally, able to speak in complete sentences and symmetric chest movement Cardiac: Present Reg Rate and Rhythm GI: Present soft and distention; Absent tenderness or guarding Rectal (female): Present deferred (female): Present deferred Extremities: Present normal inspection; Absent tenderness Skin: Present intact and dry Neuro: Present alert, awake and oriented x 3 Assessment and Plan *Assessment and plan (1) Hyperkalemia: Status: Acute Category: Medical Code(s): E87.5 - Hyperkalemia (2) Acute confusion: Status: Acute Category: Medical Code(s): R41.0 - Disorientation, unspecified (3) Acute exacerbation of CHF (congestive heart failure): Status: Acute Qualifiers: Heart failure type: unspecified Qualified Code(s): I50.9 - Heart failure, unspecified Category: Medical Code(s): I50.9 - Heart failure, unspecified (4) Anxiety and depression: Status: Acute Category: Medical Code(s): F41.9 - Anxiety disorder, unspecified; F32.A - Depression, unspecified (5) Status post amputation of toe of right foot: Status: Acute Category: Surgical Code(s): Z89.421 - Acquired absence of other right toe(s) (6) 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: Status: Chronic Qualifiers: Serious obesity comorbidity presence: with serious comorbidity Qualified Code(s): E66.813 - Obesity, class 3; E66.2 - Morbid (severe) obesity with alveolar hypoventilation; Z68.41 - Body mass index [BMI] 40.0-44.9, adult Category: Medical Code(s): E66.813 - Obesity, class 3; E66.2 - Morbid (severe) obesity with alveolar hypoventilation; Z68.41 - Body mass index [BMI] 40.0-44.9, adult (7) Type 2 diabetes mellitus with vascular disease: Status: Chronic Category: Medical Code(s): E11.59 - Type 2 diabetes mellitus with other circulatory complications Plan Bee Colon is a 54-year-old female with a medical history significant for type 2 diabetes, hypertension, CAD, anxiety/depression, left BKA, recent fracture of right second toe with osteomyelitis s/p amputation who presents from nursing facility for apparent episodes of confusion. She states she was told she was messing with electrical cords, and speaking nonsensically. On my evaluation, patient seemed alert and oriented. Denies chest pain, shortness of breath, fever/chills. Patient recently had her right second toe amputated for osteomyelitis in the setting of fracture, discharged with 10 days of Bactrim with improvement of symptoms. Workup in the ED significant for creatinine 1.6 (baseline 1.0), potassium 7.5, BNP 2280. Vital signs stable. Patient was given regular insulin 10 units with D50, Lokelma 10 g, calcium gluconate 2 g with improvement in potassium to 6.8. Was given additional IV Lasix 80 mg with improvement in potassium to 6.4. Case discussed by ED provider admission was made to admit patient for NIKOLAI on CKD, hyperkalemia. Patient has made significant improvement in the past 24 hours. Hyperkalemia nearly resolved, continuing Lasix 40 mg daily. Patient states she feels much better, alert and oriented. Plans to go back to [facility] tomorrow pending repeat BMP. #Acute metabolic encephalopathy #NIKOLAI on CKD stage III #Hyperkalemia #Medication side effect ?Patient's potassium has transitioned from 7.5 on admission, today 5.6. ? Patient has been given insulin, D50, Lokelma, Lasix. Holding spironolactone, continuing Lasix 40 mg daily. ? NIKOLAI, hyperkalemia likely as a result of concomitant Bactrim (for the past 10 days), ramipril, spironolactone. Bactrim is discontinued course, course completed. ? Serial BMPs. ? Hold ramipril, spironolactone, and any other nephrotoxic medications at this time. ? Holding Cymbalta, Lyrica, trazodone, tramadol due to metabolic encephalopathy. #Tardive dyskinesia #Extrapyramidal symptoms ?Stopping multiple home medications, correcting hyperkalemia. ?Patient's involuntary movements have greatly decreased likely due to correcting hyperkalemia and discontinuation of psychiatric medications. ?Patient alert and oriented today. No signs of confusion, feeling much better. #Elevated BNP ? BNP initially 2280. No significant signs of volume overload. ? Follow-up ECHO shows mild diastolic dysfunction, normal EF 55%. #Type 2 diabetes ? Hemoglobin A1c 12.9%. ? HD SSI, ACHS glucose checks. ? Continue home Lantus 60 units twice daily. Hold home metformin, Farxiga due to NIKOLAI. #Anxiety/depression ? Stopping home duloxetine, hydroxyzine in the setting of metabolic encephalopathy. #CAD #PAD ? Continue home aspirin, Xarelto. Hold home statin due to NIKOLAI. #Right second toe amputation due to osteomyelitis, fracture ? Sutures in place. No signs of infection. ?Discussed with orthopedics plan to leave suture in for total of 3 weeks. Full code DVT prophylaxis Home Xarelto
[2025-05-10 15:58] LABS: POC Glucose,Bedside 256 (70-110)
[2025-05-10 16:00] VITALS: BP 121/63; PULSE 76; RESP 17; TEMP 36.8; O2SAT 96
[2025-05-10] MEDS: LIDOCAINE VISCOUS 100ML BOTTLE 30 ML PO (16:45)
--- NOTE | 2025-05-10 17:22 | PC.NURSE ---
Aox 4 with no confusion today, assist with turns every two hours, purewick in place, fsbg achs, on xarelto, 18g r w sl, L LAUREENA, from [facility] nursing and should return there tomorrow.
[2025-05-10 20:00] VITALS: BP 126/56; PULSE 84; RESP 19; TEMP 36.6; O2SAT 94
--- NOTE | 2025-05-10 20:46 | PC.NURSE ---
patient refused turn, and is comfortable
[2025-05-10 21:01] LABS: POC Glucose,Bedside 302 (70-110)
--- NOTE | 2025-05-10 21:55 | PC.NURSE ---
patient c/o being hot, ice packs were given
[2025-05-10] MEDS: TRAMADOL 50MG TABLET 50 MG PO (23:18)
[2025-05-11] VITALS: BP 100/57; PULSE 76; RESP 18; TEMP 36.4; O2SAT 96
--- NOTE | 2025-05-11 02:41 | PC.NURSE ---
PT AOx4, pleasant. Reported some pain earlier in the shift and received a one time dose of tramadol per provider order. Pt reports improvement in pain and has been able to go to sleep. Currently resting in bed with eyes closed. Respirations even and unlabored. Bed is low, locked, and call light is in reach.
[2025-05-11 04:00] VITALS: BP 110/63; PULSE 70; RESP 19; TEMP 36.6; O2SAT 99; BMI 44.4
--- NOTE | 2025-05-11 04:30 | PC.NURSE ---
Blue bags and trashes were taken out at this time 0422. Patient's call light is within reach and pt does not need anything. Patient was turned to face door and is now right side lying.
[2025-05-11] MEDS: humaLOG 100 UNITS/ML 10ML VIAL (SSI) SUBCUT ×2 (05:17→12:02)
[2025-05-11 05:20] LABS: POC Glucose,Bedside 186 (70-110)
--- NOTE | 2025-05-11 06:31 | PC.NURSE ---
Ice filled and table is wiped. call light within reach, patient does not need anything at this time. Patient refused turn and is comfortable 0631.
[2025-05-11] MEDS: RIVAROXABAN 2.5MG TABLET 2.5 MG PO (06:32)
[2025-05-11 06:52] LABS: Basophils # 0.1 K/mm3 (0-0.2); Basophils % 0.8 % (0.1-2.0); Eosinophils # 0.8 Kmm3 (0.0-0.4); Eosinophils % 8.3 % (0.1-12.0); Hematocrit 39.2 % (37.0-47.0); Immature Granulocytes # 0.04 10^3uL; Immature Granulocytes % 0.4 %; Lymphocytes # 3.1 K/mm3 (0.7-4.5); Lymphocytes % 34.8 % (10-50); Mean Corpuscular HGB Conc 31.9 g/dL (31.8-35.4); Mean Corpuscular Hemoglobin 27.5 pg (27.0-31.2); Mean Corpuscular Volume 86.3 fl (81-99); Mean Platelet Volume 10.7 fl (7.4-10.4); Monocytes # 0.8 K/mm3 (0.1-1.0); Monocytes % 8.8 % (1.7-9.3); Neutrophils # 4.2 K/mm3 (1.8-7.8); Neutrophils % 46.9 % (37.0-80.0); Nucleated Red Blood Cells # 0 10^3/uL; Nucleated Red Blood Cells % 0 %; Platelet Count 263 K/mm3 (142-424); Red Blood Count 4.54 M/mm3 (4.20-5.40); Red Cell Distribution Width 15.7 % (11.5-17.5); Red Cell Distribution Width-SD 49.4 fL
[2025-05-11 06:56] LABS: Albumin Level 3.9 g/dl (3.5-5.0); Chloride 102 mmol/L (98-107); Potassium 4.8 mmoL/L (3.5-5.1); Sodium 137 mmol/L (136-145)
[2025-05-11 06:59] LABS: Alanine Aminotransferase 14 U/L (12-78); Albumin/Globulin Ratio 1.2 (1.1-1.8); Alkaline Phosphatase 66 U/L (38-126); Anion Gap 15.8 mEq/L (5-15); Aspartate Amino Transferase 20 U/L (14-36); Bilirubin,Total 0.2 mg/dl (0.2-1.3); Blood Urea Nitrogen 22 mg/dl (7-17); Carbon Dioxide 24 mmol/L (22.0-30.0); Creatinine Clearance Estimated 39 mL/min (50-200); Estimated Glomerular Filt Rate 39 ml/min (>60); GFR (African American) 47 ML/MIN (>60); Globulin 3.3 g/dL (1.3-3.2); Glucose 187 mg/dl (74-100); Total Protein,Serum 7.2 g/dl (6.3-8.2)
[2025-05-11 07:00] LABS: Magnesium 1.7 mg/dl (1.6-2.3)
[2025-05-11 07:43] LABS: Hemoglobin 12.5 g/dL (12.2-16.2)
[2025-05-11 08:00] VITALS: BP 99/51; PULSE 81; RESP 18; TEMP 36.8; O2SAT 99
[2025-05-11 08:39] VITALS: BP 99/51; PULSE 81; RESP 18; TEMP 36.8; O2SAT 99
--- NOTE | 2025-05-11 09:27 | P.DS_ITS ---
<Statement entered by Levi Soria MD - 05/11/25 16:41> Rounded on patient after nurse practitioner. Personally examined and interviewed patient. Agree with exam findings and care plan as documented. General Admission date:: 05/08/25 Discharge date: 05/11/25 HPI HPI HPI: Bee Colon is a 54-year-old female with a medical history significant for type 2 diabetes, hypertension, CAD, anxiety/depression, left BKA, recent fracture of right second toe with osteomyelitis s/p amputation who presents from nursing facility for apparent episodes of confusion. She states she was told she was messing with electrical cords, and speaking nonsensically. On my evaluation, patient seemed alert and oriented. Denies chest pain, shortness of breath, fever/chills. Patient recently had her right second toe amputated for osteomyelitis in the setting of fracture, discharged with 10 days of Bactrim with improvement of symptoms. Workup in the ED significant for creatinine 1.6 (baseline 1.0), potassium 7.5, BNP 2280. Vital signs stable. Patient was given regular insulin 10 units with D50, Lokelma 10 g, calcium gluconate 2 g with improvement in potassium to 6.8. Was given additional IV Lasix 80 mg with improvement in potassium to 6.4. Case discussed by ED provider admission was made to admit patient for NIKOLAI on CKD, hyperkalemia. Hospital Course Hospital Course Hospital Course: Bee Colon is a 54-year-old female with a medical history significant for type 2 diabetes, hypertension, CAD, anxiety/depression, left BKA, recent fracture of right second toe with osteomyelitis s/p amputation who presents from nursing facility for apparent episodes of confusion. She states she was told she was messing with electrical cords, and speaking nonsensically. On my evaluation, patient seemed alert and oriented. Denies chest pain, shortness of breath, fever/chills. Patient recently had her right second toe amputated for osteomyelitis in the setting of fracture, discharged with 10 days of Bactrim with improvement of symptoms. Workup in the ED significant for creatinine 1.6 (baseline 1.0), potassium 7.5, BNP 2280. Vital signs stable. Patient was given regular insulin 10 units with D50, Lokelma 10 g, calcium gluconate 2 g with improvement in potassium to 6.8. Was given additional IV Lasix 80 mg with improvement in potassium to 6.4. Case discussed by ED provider admission was made to admit patient for NIKOLAI on CKD, hyperkalemia. Patient feels back to baseline today. Hyperkalemia has resolved, potassium 4.8 today. Plan to continue Lasix 40 mg p.o. daily at discharge. Stop spironolactone. #Acute metabolic encephalopathy, resolved #NIKOLAI on CKD stage III #Hyperkalemia, resolved ?On admission patient's potassium was 7.5 patient given insulin, D50, Lokelma, Kayexalate, and Lasix over the course of her stay. Potassium has normalized, today 4.8. #Tardive dyskinesia, resolved #Extrapyramidal symptoms, resolved ?Patient is no longer having involuntary movements, jerks. These likely were due to hyperkalemia and psychiatric medications. ?Stopping patient's Cymbalta, Vistaril, trazodone at discharge. Behavioral health appointment made for patient. ?Patient states she feels well, better than she has in quite a while. ?Patient alert and oriented today. No signs of confusion. #Elevated BNP ? BNP initially 2280. No significant signs of volume overload. Starting Lasix 40 mg daily at discharge. ? Follow-up ECHO shows mild diastolic dysfunction, normal EF 55%. #Type 2 diabetes ? Hemoglobin A1c 12.9%. ? Continue home Lantus 60 units twice daily. Continue metformin 500 mg twice daily. ?Patient's blood sugars have been more well-controlled than last visit. Continue current regimen. #CAD #PAD #Hypertension ?Patient's blood pressures have been 100s/50s during admission plan to continue to hold isosorbide and ramipril. Continue metoprolol 100 mg twice daily. ? Continue home aspirin, Xarelto, statin. #Right second toe amputation due to osteomyelitis, fracture ? Sutures in place. No signs of infection. ?Discussed with orthopedics plan to leave suture in for total of 3 weeks. Appointment made at discharge. ?Continue home medication tramadol as needed for pain and home medication Lyrica 200 mg twice daily. Total time spent on discharge 33 minutes in counseling, documentation, chart review, and direct care with patient. Exam Data for Last 24 hours Vital signs and Labs for Last 24 Hours: Temp Pulse Resp BP Pulse Ox O2 Del Method 98.2 F 81 18 99/51 L 99 Room Air 05/11/25 08:39 05/11/25 08:39 05/11/25 08:39 05/11/25 08:39 05/11/25 08:39 05/11/25 08:39 Laboratory Results - last 24 hr 05/10/25 14:36: Sodium 136, Potassium 5.6 H, Chloride 102, Carbon Dioxide 25, Anion Gap 14.6, BUN 18 H, Creatinine 1.40 H, Estimated Creat Clear 39, Estimated GFR 39 L, Est GFR ( Amer) 47 L, Glucose 226 H, Calcium 9.0 05/10/25 15:50: POC Glucose 256 H 05/10/25 20:01: POC Glucose 302 H* 05/11/25 05:12: POC Glucose 186 H 05/11/25 05:21: WBC 9.0, RBC 4.54, Hgb 12.5 D, Hct 39.2, MCV 86.3, MCH 27.5, MCHC 31.9, RDW 15.7, Plt Count 263, MPV 10.7 H, Neut % (Auto) 46.9, Lymph % (Auto) 34.8, Clarke % (Auto) 8.8, Eos % (Auto) 8.3, Baso % (Auto) 0.8, Neut # (Auto) 4.2, Lymph # (Auto) 3.1, Clarke # (Auto) 0.8, Eos # (Auto) 0.8 H, Baso # (Auto) 0.1, Sodium 137, Potassium 4.8, Chloride 102, Carbon Dioxide 24, Anion Gap 15.8 H, BUN 22 H, Creatinine 1.40 H, Estimated Creat Clear 39, Estimated GFR 39 L, Est GFR ( Amer) 47 L, Glucose 187 H, Calcium 9.0, Magnesium 1.7 D, Total Bilirubin 0.2, AST 20 D, ALT 14, Alkaline Phosphatase 66, Total Protein 7.2, Albumin 3.9 D, Globulin 3.3 H, Albumin/Globulin Ratio 1.2 I & O for Last 24 hours: Intake & Output 05/08/25 05/09/25 05/10/25 05/11/25 23:59 23:59 23:59 23:59 Intake Total 120 / 1220 1680 / 1680 1080 / 1080 360 / 360 Output Total 1550 / 1550 1475 / 1475 3200 / 3700 1850 / 1850 Balance -1430 / -330 205 / 205 -2120 / -2620 -1490 / -1490 Weight 130.181 kg 126.371 kg 128.185 kg 120.973 kg Microbiology Reports for the Last 24 Hours: Microbiology 05/09/25 12:05 Anus CRE Surveillance Culture - Final No growth. 05/09/25 21:58 Blood Blood Culture - Preliminary NO GROWTH AFTER 24 HOURS 05/09/25 21:58 Blood Blood Culture - Preliminary NO GROWTH AFTER 24 HOURS Constitutional Constitutional: no acute distress and cooperative *Routine HEENT Exam Head: Present normocephalic Eye: Present EOMI and PERRL ENT: Present mucous membranes moist *Routine Neck Exam Neck: Present supple and full ROM *Routine Respiratory Exam Respiratory: Present CTA bilaterally, able to speak in complete sentences and symmetric chest movement *Routine Cardiovascular Exam Cardiovascular: Present RRR *Routine Abdominal Exam Abdominal: Present soft and normoactive bowel sounds; Absent tenderness or dist ended *Routine Extremities Exam Extremities: Present normal capillary refill and amputation; Absent calf tenderness Comments: Left BKA *Routine Skin Exam Skin: Present intact and dry Comments: Healed right leg stasis wound, second toe amputation with sutures. *Routine Neurological Exam Neurological: Present alert, oriented X3, normal reflexes and moving all extremities Results Data Completed and Pending Labs on day of discharge: Labs from last 24 hours 05/11/25 05/11/25 05/10/25 05:21 05:12 20:01 WBC 9.0 RBC 4.54 Hgb 12.5 D Hct 39.2 MCV 86.3 MCH 27.5 MCHC 31.9 RDW 15.7 Plt Count 263 MPV 10.7 H Neut % (Auto) 46.9 Lymph % (Auto) 34.8 Clarke % (Auto) 8.8 Eos % (Auto) 8.3 Baso % (Auto) 0.8 Neut # (Auto) 4.2 Lymph # (Auto) 3.1 Clarke # (Auto) 0.8 Eos # (Auto) 0.8 H Baso # (Auto) 0.1 Sodium 137 Potassium 4.8 Chloride 102 Carbon Dioxide 24 Anion Gap 15.8 H BUN 22 H Creatinine 1.40 H Estimated Creat Clear 39 Estimated GFR 39 L Est GFR ( Amer) 47 L Glucose 187 H POC Glucose 186 H 302 H* Calcium 9.0 Magnesium 1.7 D Total Bilirubin 0.2 AST 20 D ALT 14 Alkaline Phosphatase 66 Total Protein 7.2 Albumin 3.9 D Globulin 3.3 H Albumin/Globulin Ratio 1.2 05/10/25 05/10/25 15:50 14:36 WBC RBC Hgb Hct MCV MCH MCHC RDW Plt Count MPV Neut % (Auto) Lymph % (Auto) Clarke % (Auto) Eos % (Auto) Baso % (Auto) Neut # (Auto) Lymph # (Auto) Clarke # (Auto) Eos # (Auto) Baso # (Auto) Sodium 136 Potassium 5.6 H Chloride 102 Carbon Dioxide 25 Anion Gap 14.6 BUN 18 H Creatinine 1.40 H Estimated Creat Clear 39 Estimated GFR 39 L Est GFR ( Amer) 47 L Glucose 226 H POC Glucose 256 H Calcium 9.0 Magnesium Total Bilirubin AST ALT Alkaline Phosphatase Total Protein Albumin Globulin Albumin/Globulin Ratio Preliminary micro results at discharge 05/09/25 21:58 Blood Culture - Preliminary Blood NO GROWTH AFTER 24 HOURS 05/09/25 21:58 Blood Culture - Preliminary Blood NO GROWTH AFTER 24 HOURS DS: Diagnosis Discharge Diagnosis (1) Hyperkalemia: Status: Acute Code(s): E87.5 - Hyperkalemia (2) Acute confusion: Status: Acute Code(s): R41.0 - Disorientation, unspecified (3) Acute exacerbation of CHF (congestive heart failure): Status: Acute Code(s): I50.9 - Heart failure, unspecified Qualifiers: Heart failure type: unspecified Qualified Code(s): I50.9 - Heart failure, unspecified (4) Anxiety and depression: Status: Acute Code(s): F41.9 - Anxiety disorder, unspecified; F32.A - Depression, unspecified (5) Status post amputation of toe of right foot: Status: Acute Code(s): Z89.421 - Acquired absence of other right toe(s) (6) 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: Status: Chronic Code(s): E66.813 - Obesity, class 3; E66.2 - Morbid (severe) obesity with alveolar hypoventilation; Z68.41 - Body mass index [BMI] 40.0-44.9, adult Qualifiers: Serious obesity comorbidity presence: with serious comorbidity Qualified Code(s): E66.813 - Obesity, class 3; E66.2 - Morbid (severe) obesity with alveolar hypoventilation; Z68.41 - Body mass index [BMI] 40.0-44.9, adult (7) Type 2 diabetes mellitus with vascular disease: Status: Chronic Code(s): E11.59 - Type 2 diabetes mellitus with other circulatory complications Meds Home Medications and Allergies Home Medications ?Medication ?Instructions ?Recorded ?Confirmed ?Type aspirin 81 mg chewable tablet 81 mg PO DAILY HEART HEA LTH #90 12/12/24 05/08/25 Rx tabs metoprolol tartrate 100 mg tablet 100 mg PO BID #180 t abs 12/12/24 05/08/25 Rx dapagliflozin propanediol 10 mg 10 mg PO DAILY #90 tab s 01/16/25 05/08/25 Rx tablet ranolazine 1,000 mg 1,000 mg PO BID #60 tabs 02/0705/08/25 Rx tablet,extended release,12 hr insulin syringe-needle U-100 0.5 #500 ea 01/31/2504/17 Rx mL 31 gauge x 5/16 (Sure Comfort Insulin Syringe) tramadol 50 mg tablet 50 mg PO Q6H PRN breakthroug h 01/31/25 05/08/25 Rx pain, moderate #120 tabs ezetimibe 10 mg tablet 10 mg PO HS #90 tabs 5 05/08/25 Rx pen needle, diabetic 31 gauge x #1,200 ea 02/07/25 Rx 5/16 (Unifine Pentips) rivaroxaban 2.5 mg tablet (Xarelto) 2.5 mg PO BIDWMEAL #60 tabs 02/07/25 05/08/25 Rx insulin aspart U-100 100 unit/mL 18 unit (0.18 mL) SQ TID #45 mL 03/15/25 05/08/25 Rx (3 mL) subcutaneous pen (Novolog FlexPen U-100 Insulin aspart) atorvastatin 40 mg tablet 40 mg PO HS #30 tabs 5 05/08/25 Rx insulin glargine 100 unit/mL (3 60 unit (0.6 mL) SQ BI D #12 mL 04/28/25 05/08/25 Rx mL) subcutaneous pen metformin 500 mg tablet 500 mg PO BIDWMEAL 30 days # 60 tabs 04/28/25 05/08/25 Rx polyethylene glycol 3350 17 gram 17 g PO DAILY #30 ea 04/28/25 05/08/25 Rx oral powder packet (HealthyLax) blood-glucose sensor (Dexcom G7 #3 ea 05/01/25 5 Rx Sensor device) ergocalciferol (vitamin D2) 1,250 1,250 mcg PO WEEKLY 05/09/25 05/09/25 History mcg (50,000 unit) capsule multivitamin 1 tab PO DAILY 05/09/2504/17 History tirzepatide 2.5 mg/0.5 mL 2.5 mg SQ WEEKLY 05/09/25 History subcutaneous pen injector (Mounjaro) furosemide 40 mg tablet (Lasix) 40 mg PO DAILY #30 tab s 05/11/25 Rx pregabalin 200 mg capsule 200 mg PO BID 05/11/2505/11 History New Prescriptions to Start Prescriptions: furosemide [Lasix] Yulissa Barrera Allergies Allergy/AdvReac Type Severity Reaction Status Date / Time clopidogrel (From Plavix) Allergy Severe Hives Verified 05/04/25 15:46 amoxicillin (AMOXICILLIN) Allergy Unknown Unknown Verified 05/04/25 15:46 allergy reaction codeine (CODEINE) AdvReac Mild STOMACH Verified 05/04/25 15:46 CRAMPS morphine (MORPHINE) AdvReac Mild STOMACH Verified 05/04/25 15:46 CRAMPS oxycodone (From Percocet) AdvReac Mild STOMACH Verified 05/04/25 15:46 CRAMPS Discharge Plan Disposition Patient Disposition: Xfer SNF Condition: Fair Follow up Plan Follow up with: Gordon Williamson DO [Staff Physician, Orthopedics] - Enter time for follow up Referral Note: 10 days Ирина Edmondson APRN [Nurse Practitioner, Behavioral Health] - Enter time for follow up Prescriptions/Medication Reconciliation: New furosemide [Lasix] 40 mg tablet 40 mg PO DAILY Qty: 30 0RF Continued aspirin 81 mg tablet,chewable 81 mg PO DAILY Qty: 90 3RF metoprolol tartrate 100 mg tablet 100 mg PO BID Qty: 180 3RF ranolazine 1,000 mg tablet extended release 12 hr 1,000 mg PO BID Qty: 60 5RF dapagliflozin propanediol 10 mg tablet 10 mg PO DAILY Qty: 90 3RF (DME) insulin syringe-needle U-100 [Sure Comfort Insulin Syringe] 0.5 mL 31 gauge x 5/16 syringe See Rx Instructions .ROUTE .MEDSUPPLY Qty: 500 1RF Rx Instructions: As directed tramadol 50 mg tablet 50 mg PO Q6H PRN (Reason: breakthrough pain, moderate) Qty: 120 0RF (DME) pen needle, diabetic [Unifine Pentips] 31 gauge x 5/16 needle See Rx Instructions .ROUTE .MEDSUPPLY Qty: 1200 1RF Rx Instructions: As directed Xarelto 2.5 mg tablet 2.5 mg PO BIDWMEAL Qty: 60 5RF ezetimibe 10 mg tablet 10 mg PO HS Qty: 90 1RF insulin aspart U-100 [Novolog FlexPen U-100 Insulin] 100 unit/mL (3 mL) insulin pen 18 unit SQ TID Qty: 45 3RF (DME) Dexcom G7 Sensor Device See Rx Instructions .Route Qty: 3 5RF Rx Instructions: As directed polyethylene glycol 3350 [HealthyLax] 17 gram Powder In Packet 17 g PO DAILY Qty: 30 0RF atorvastatin 40 mg Tablet 40 mg PO HS Qty: 30 3RF metformin 500 mg Tablet 500 mg PO BIDWMEAL 30 Days Qty: 60 3RF insulin glargine 100 unit/mL (3 mL) insulin pen 60 unit SQ BID Qty: 12 5RF multivitamin Tablet 1 tab PO DAILY ergocalciferol (vitamin D2) 1,250 mcg (50,000 unit) Capsule 1,250 mcg PO WEEKLY Mounjaro 2.5 mg/0.5 mL Pen Injector 2.5 mg SQ WEEKLY pregabalin 200 mg capsule 200 mg PO BID Patient Comments: TAKE ONE CAPSULE (200 MG) BY MOUTH TWICE DAILY Discontinued isosorbide mononitrate 60 mg tablet extended release 24 hr 60 mg PO DAILY Qty: 90 3RF ramipril 5 mg capsule 5 mg PO DAILY Qty: 90 3RF spironolactone 25 mg tablet 25 mg PO DAILY Qty: 90 3RF duloxetine 60 mg capsule,delayed release(DR/EC) 60 mg PO BID Qty: 180 1RF trazodone 100 mg tablet 100 mg PO HS Qty: 90 0RF hydroxyzine HCl 25 mg tablet 25 mg PO HS pregabalin 100 mg Capsule 100 mg PO BID Problem Reconciliation Problems Reviewed?: Yes Patient Discharge Instructions ACTIVITY: Continue current activity DIET: continue same diet Patient Instructions: DI for Kidney Failure, DI for Hyperkalemia, Hyperkalemia, DI for Heart Failure Exacerbations, Stop Light Heart Failure, Stop Light Infection Print Language: Tongan Providers Primary Care Provider: Angel Barry Admit Provider: Angel Barry Attending Provider: Angel Barry
[2025-05-11] MEDS: SODIUM BICARBONATE 650MG TABLET 1300 MG PO ×2 (09:46→12:03)
[2025-05-11] MEDS: INSULIN GLARGINE 100 UNITS/ML 3ML FLEXPEN 60 UNIT SUBCUT (09:46)
[2025-05-11] MEDS: HYDROCODONE/APAP 5/325 MG TABLET 1 TAB PO (09:48)
[2025-05-11] MEDS: ASPIRIN 81MG CHEWABLE TABLET 81 MG PO (09:49)
[2025-05-11] MEDS: POLYETHYLENE GLYCOL 3350 17 GM PACKET PO (09:49)
[2025-05-11] MEDS: METOPROLOL TARTRATE 50MG TABLET 100 MG PO (09:49)
[2025-05-11 10:57] LABS: Lactate Dehydrogenase 232 U/L (313-618)
[2025-05-11 12:07] LABS: POC Glucose,Bedside 235 (70-110)
--- NOTE | 2025-05-11 13:13 | PC.NURSE ---
Pt left floor with ambulance transport to [facility] @[id number]
== END 2025-05-11 13:04 | DRG 682 ==
LOC: ER 15:14 → 2ND 17:56
PROVIDERS: Nurse Practitioner Acute Care; Physician Assistant; Admitting Provider Student in an Organized Health Care Education/Training Program; Emergency Provider Student in an Organized Health Care Education/Training Program; PCP Student in an Organized Health Care Education/Training Program; Visit Provider Student in an Organized Health Care Education/Training Program
DX: N17.9 Acute kidney failure, unspecified (principal); G93.41 Metabolic encephalopathy; E66.2 Morbid (severe) obesity with alveolar hypoventilation; Z68.41 Body mass index [BMI] 40.0-44.9, adult; F33.9 Major depressive disorder, recurrent, unspecified; I50.32 Chronic diastolic (congestive) heart failure; I13.0 Hypertensive heart and chronic kidney disease with heart failure and stage 1 through stage 4 chronic kidney disease, or unspecified chronic kidney disease; G25.9 Extrapyramidal and movement disorder, unspecified; E87.5 Hyperkalemia; E78.5 Hyperlipidemia, unspecified; I25.10 Atherosclerotic heart disease of native coronary artery without angina pectoris; E11.22 Type 2 diabetes mellitus with diabetic chronic kidney disease; E66.813 Obesity, class 3; F41.9 Anxiety disorder, unspecified; E11.51 Type 2 diabetes mellitus with diabetic peripheral angiopathy without gangrene; T36.8X5A Adverse effect of other systemic antibiotics, initial encounter; T46.4X5A Adverse effect of angiotensin-converting-enzyme inhibitors, initial encounter; T50.0X5A Adverse effect of mineralocorticoids and their antagonists, initial encounter; N18.31 Chronic kidney disease, stage 3a; G24.01 Drug induced subacute dyskinesia; T43.215A Adverse effect of selective serotonin and norepinephrine reuptake inhibitors, initial encounter; T43.595A Adverse effect of other antipsychotics and neuroleptics, initial encounter; E55.9 Vitamin D deficiency, unspecified; E11.40 Type 2 diabetes mellitus with diabetic neuropathy, unspecified; M19.90 Unspecified osteoarthritis, unspecified site; Z88.8 Allergy status to other drugs, medicaments and biological substances; Z88.0 Allergy status to penicillin; Z88.5 Allergy status to narcotic agent; Z95.5 Presence of coronary angioplasty implant and graft; Z89.512 Acquired absence of left leg below knee; Z79.82 Long term (current) use of aspirin; Z79.899 Other long term (current) drug therapy; Z79.84 Long term (current) use of oral hypoglycemic drugs; Z79.4 Long term (current) use of insulin; Z79.01 Long term (current) use of anticoagulants; Z86.14 Personal history of Methicillin resistant Staphylococcus aureus infection; I25.2 Old myocardial infarction; Z90.49 Acquired absence of other specified parts of digestive tract; Z90.710 Acquired absence of both cervix and uterus; Z80.9 Family history of malignant neoplasm, unspecified; Z82.49 Family history of ischemic heart disease and other diseases of the circulatory system; Z82.3 Family history of stroke; Z83.438 Family history of other disorder of lipoprotein metabolism and other lipidemia; Z63.5 Disruption of family by separation and divorce; Z89.421 Acquired absence of other right toe(s); Z87.81 Personal history of (healed) traumatic fracture; Z79.85 Long-term (current) use of injectable non-insulin antidiabetic drugs
CPT/HCPCS: 36415; 70450; 71275; 80048; 80053; 81001; 82009; 82140; 82803; 82962; 83615; 83735; 83880; 84132; 84145; 84443; 84484; 84550; 85025; 87040; 87081; 87633; 93005; 93306; 93971; 94640; 97162; 97166; J0612; J1938; J3475; J7030; Q9957; Q9967

== ENCOUNTER 2025-06-26 10:47 | Emergency (ER) | payer MEDICARE, SELFPAY ==
[2025-06-26] VITALS (7 sets, daily range): BP systolic 135–164; BP diastolic 65–85; PULSE 69–96; RESP 15–18; TEMP 36.6; O2SAT 96–99; BMI 41.9
--- NOTE | 2025-06-26 11:02 | CT_ITS ---
FINAL REPORT TECHNIQUE: After the administration of intravenous contrast, axial images were obtained through the abdomen and pelvis by computed tomography. This study was performed with technique to keep radiation doses as low as reasonably achievable, (ALARA). Individualized dose reduction techniques using automated exposure control or adjustment of the MA and/or KV according to the patient's size were employed. CLINICAL HISTORY: LUQ abd pain, nausea and vomiting since last Thursday COMPARISON: 07/11/2023 FINDINGS: Abdomen: The lung bases are clear. The liver is normal in size and attenuation. Patient is status postcholecystectomy. The spleen is unremarkable. The adrenals are normal. The pancreas is unremarkable. The kidneys enhance appropriately. The aorta is normal in caliber. There is no free fluid or adenopathy. No evidence of bowel obstruction. Pelvis: The appendix is not identified. Patient is status post hysterectomy. No adnexal masses identified. The urinary bladder is unremarkable. There is no free fluid or adenopathy. IMPRESSION: No acute intra-abdominal process. Reviewed, Interpreted and Dictated by Armen Ortiz MD Transcribed by Radha Kunz Authenticated and [facility]
--- NOTE | 2025-06-26 11:02 | XR_ITS ---
FINAL REPORT TECHNIQUE: Single view chest CLINICAL HISTORY: soa, nausea & vomiting since last thursday COMPARISON: 03/19/2024 FINDINGS: A single view of the chest was obtained. The heart and mediastinum are within normal limits. The lungs are clear. There is no pneumothorax. IMPRESSION: No acute cardiopulmonary process. Reviewed, Interpreted and Dictated by Armen Ortiz MD Transcribed by Radha Kunz Authenticated and [facility]
--- NOTE | 2025-06-26 11:06 | PC.NURSE ---
Resp. notified of a VBG sent to lab
[2025-06-26 11:08] LABS: VBG HCO3 21.2 mmol/L (23-30); VBG PCO2 31.1 mmol/L (35-51); VBG PH 7.45 mmol/L (7.31-7.41); VBG PO2 32.8 mmol/L (28-40)
[2025-06-26 11:11] LABS: Lactate Venous 3.0 mmol/L (0.4-2.0)
[2025-06-26 11:12] LABS: Hematocrit 41.0 % (37.0-47.0); Hemoglobin 13.3 g/dL (12.2-16.2); Immature Granulocytes % 0.6 %; Mean Corpuscular HGB Conc 32.4 g/dL (31.8-35.4); Mean Corpuscular Hemoglobin 28.0 pg (27.0-31.2); Mean Corpuscular Volume 86.3 fl (81-99); Nucleated Red Blood Cells % 0 %; Platelet Count 296 K/mm3 (142-424); Red Blood Count 4.75 M/mm3 (4.20-5.40); Red Cell Distribution Width-SD 44.6 fL; White Blood Count 10.6 K/mm3 (4.8-10.8)
[2025-06-26] MEDS: PROMETHAZINE HCL 25MG/ML 1ML VIAL 25 MG IV (11:13)
[2025-06-26 11:14] LABS: Albumin Level 4.4 g/dl (3.5-5.0); Chloride 103 mmol/L (98-107); Potassium 4.0 mmoL/L (3.5-5.1); Sodium 136 mmol/L (136-145)
[2025-06-26] MEDS: SODIUM CHLORIDE 0.9% 25ML BAG 25 ML IV (11:14)
[2025-06-26] MEDS: 0.9 % SODIUM CHLORIDE 1000ML 1,000 ML 250 ML IV (11:14)
--- NOTE | 2025-06-26 11:14 | ECG_ITS ---
APPROVED REPORT Exam: Resting ECG HR:70 bpm ECG Measurements Heart Rate 70 AXES AZ 132 P 32 QRSd 93 QRS 12 QT 407 T 54 QTc 429 Conclusion SINUS RHYTHM WITH OCCASIONAL VENTRICULAR PREMATURE COMPLEXES PROBABLE INFERIOR MYOCARDIAL INFARCTION , PROBABLY OLD [35 ms Q WAVE IN II/aVF] ABNORMAL ECG UNCONFIRMED REPORT Electronically signed by : ALIX TEMPLE, 06/26/2025 23:44:52
--- NOTE | 2025-06-26 11:14 | HMH.EDGENADL ---
Discharge Plan Disposition Patient Disposition: Home, Self-Care Prescriptions Prescriptions: No Action atorvastatin 40 mg tablet 40 mg PO HS Qty: 90 1RF ergocalciferol (vitamin D2) 1,250 mcg (50,000 unit) capsule 1,250 mcg PO WEEKLY Qty: 90 1RF ezetimibe 10 mg tablet 10 mg PO HS Qty: 90 1RF dapagliflozin propanediol 10 mg tablet 10 mg PO DAILY Qty: 90 1RF furosemide [Lasix] 40 mg tablet 40 mg PO DAILY Qty: 90 1RF metoprolol tartrate 100 mg tablet 100 mg PO BID Qty: 180 1RF (DME) pen needle, diabetic [Unifine Pentips] 31 gauge x 5/16 needle See Rx Instructions .ROUTE .MEDSUPPLY Qty: 1200 1RF Rx Instructions: As directed pregabalin 200 mg capsule 200 mg PO BID Qty: 180 1RF ranolazine 1,000 mg tablet extended release 12 hr 1,000 mg PO BID Qty: 180 1RF Xarelto 2.5 mg tablet 2.5 mg PO BIDWMEAL Qty: 180 1RF Mounjaro 5 mg/0.5 mL pen injector 5 mg SQ WEEKLY Qty: 2 0RF tramadol 50 mg tablet 50 mg PO Q6H PRN (Reason: breakthrough pain, moderate) Qty: 120 0RF insulin glargine 100 unit/mL (3 mL) insulin pen 60 unit SQ BID Qty: 12 5RF buspirone 7.5 mg tablet 7.5 mg PO BID Qty: 180 1RF Rx Instructions: Take with meals polyethylene glycol 3350 [Miralax] 17 gram/dose powder 17 g PO DAILY Qty: 510 1RF escitalopram oxalate 10 mg tablet 10 mg PO DAILY Qty: 90 1RF aspirin 81 mg tablet,chewable 81 mg PO DAILY Qty: 90 1RF (DME) insulin syringe-needle U-100 [Sure Comfort Insulin Syringe] 0.5 mL 31 gauge x 5/16 syringe See Rx Instructions .ROUTE .MEDSUPPLY Qty: 500 1RF Rx Instructions: As directed (DME) Dexcom G7 Sensor Device See Rx Instructions .Route Qty: 3 5RF Rx Instructions: As directed insulin aspart U-100 [Novolog FlexPen U-100 Insulin] 100 unit/mL (3 mL) insulin pen 18 unit SQ TID Qty: 45 5RF promethazine 12.5 mg tablet See Rx Instructions PO Q6H PRN (Reason: nausea and vomiting) Qty: 30 0RF Rx Instructions: 1 or 2 tabs orally every 6 hours PRN; multivitamin Tablet 1 tab PO DAILY Referrals Follow up/Referrals: Diego Lynch MD [Primary Care Provider, Medical] - See instructions Activity Restrictions/Add. Instructions Additional Instructions/Restrictions: Today you were evaluated in the emergency department, your CT scan did not show any acute findings. As we discussed, your symptoms are most likely related to the Mounjaro that you are taking. Please discuss this with your PCP. I do not advise you to continue this until you discuss it with them. Return to the ED for worsening of condition. Clinical Impressions Clinical Impression: Nausea & vomiting, Abdominal pain Instructions Patient Instructions: DI for Vomiting -- Adult Print Language Print Language: Slovak Discharge ED Provider: Rocael Daily General Adult HPI <Pauly Duffy APRN - Last Filed: 06/26/25 14:15> General Chief complaint: Nausea/Vomiting/Diarrhea Stated complaint: poss DKA Time Seen by Provider: 06/26/25 10:54 Mode of Arrival: Wheelchair Source of Information: Patient Description of Symptoms (Recalled from ER Triage Doc. by RN): patient states she has been having N/V/D since last thursday. she is also having LLQ pain that is intermittent. she has been taking monjero but skipped her dose on thursday. she has been taking phenagran but that isnt helping. she has not taken any of her diabetic meds today BG on arrival was 321. History of Present Illness HPI narrative: patient is a 54-year-old female PMHx morbid obesity, CHF, CKD, anxiety, depression, type 2 diabetes, HTN, hyperlipidemia, hypertension who presents to the ED for nausea, vomiting and abdominal pain since last Thursday. Patient states she has been on Mounjaro since April, recently had a dose increase. Related Data Home Medications ?Medication ?Instructions ?Recorded ?Confirmed multivitamin 1 tab PO DAILY 05/09/25 06/01/25 Previous Rx's ?Medication ?Instructions ?Recorded insulin syringe-needle U-100 0.5 #500 ea 01/31/25 mL 31 gauge x 5/16 (Sure Comfort Insulin Syringe) aspirin 81 mg chewable tablet 81 mg PO DAILY [facility] #90 06/01/25 tabs atorvastatin 40 mg tablet 40 mg PO HS #90 tabs 06/01/25 buspirone 7.5 mg tablet 7.5 mg PO BID #180 tabs 06/01/25 dapagliflozin propanediol 10 mg 10 mg PO DAILY #90 tabs 06/01/25 tablet ergocalciferol (vitamin D2) 1,250 1,250 mcg PO WEEKLY #90 caps 06/01/25 mcg (50,000 unit) capsule escitalopram oxalate 10 mg tablet 10 mg PO DAILY #90 tabs 06/01/25 ezetimibe 10 mg tablet 10 mg PO HS #90 tabs 06/01/25 furosemide 40 mg tablet (Lasix) 40 mg PO DAILY #90 tabs 06/01/25 insulin glargine 100 unit/mL (3 60 unit (0.6 mL) SQ BID #12 mL 06/01/25 mL) subcutaneous pen metoprolol tartrate 100 mg tablet 100 mg PO BID #180 tabs 06/01/25 pen needle, diabetic 31 gauge x #1,200 ea 06/01/2503/31 (Unifine Pentips) polyethylene glycol 3350 17 17 g PO DAILY #510 grams 06/01/25 gram/dose oral powder (Miralax) pregabalin 200 mg capsule 200 mg PO BID #180 caps 06/01/25 ranolazine 1,000 mg 1,000 mg PO BID #180 tabs 06/01/25 tablet,extended release,12 hr rivaroxaban 2.5 mg tablet (Xarelto) 2.5 mg PO BIDWMEAL #180 tabs 06/01/25 tirzepatide 5 mg/0.5 mL 5 mg (0.5 mL) SQ WEEKLY #2 mL 06/01/25 subcutaneous pen injector (Sethunmathewro) tramadol 50 mg tablet 50 mg PO Q6H PRN breakthrough 06/01/25 pain, moderate #120 tabs blood-glucose sensor (Dexcom G7 #3 ea 06/14/25 Sensor device) insulin aspart U-100 100 unit/mL 18 unit (0.18 mL) SQ TID #45 mL 06/14/25 (3 mL) subcutaneous pen (Novolog FlexPen U-100 Insulin aspart) promethazine 12.5 mg tablet See Rx Instructions PO Q6H PRN 06/20/25 nausea and vomiting #30 tabs Allergies Allergy/AdvReac Type Severity Reaction Status Date / Time clopidogrel (From Plavix) Allergy Severe Hives Verified 06/01/25 15:36 amoxicillin (AMOXICILLIN) Allergy Unknown Unknown Verified 06/01/25 15:36 allergy reaction codeine (CODEINE) AdvReac Mild STOMACH Verified 06/01/25 15:36 CRAMPS morphine (MORPHINE) AdvReac Mild STOMACH Verified 06/01/25 15:36 CRAMPS oxycodone (From Percocet) AdvReac Mild STOMACH Verified 06/01/25 15:36 CRAMPS PFS <Pauly Duffy APRN - Last Filed: 06/26/25 14:15> PFS Disclaimer: The information contained in this section may have been updated after the patient was seen, as this information can be updated by other users. 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 (Updated 06/26/25 @ 13:32 by Pauly Duffy, [place]) Encounter for wound care DKA (diabetic ketoacidosis) Fracture of toe of right foot Diarrhea Nausea & vomiting Typical angina Encounter for immunization Presence of external cardiac defibrillator Takotsubo cardiomyopathy Keratosis Encounter for wound care Pre-ulcerative calluses Diabetic foot Ulcer of right heel Fracture of foot with nonunion Retained orthopedic hardware Onychogryphosis Onychodystrophy Keratosis Ulcer of right foot due to type 2 diabetes mellitus Ulcer of left foot due to type 2 diabetes mellitus Type 2 diabetes mellitus with Charcot's joint of left foot Obesity, Class III, BMI 40-49.9 (morbid obesity) Migraine Osteoarthritis History of diverticulitis History of cataract History of left heart catheterization Recurrent major depression resistant to treatment Blood culture positive for microorganism Anemia HTN (hypertension) Type 2 diabetes mellitus with diabetic neuropathy, with long-term current use of insulin History of myocardial infarction Hyperlipemia CAD (coronary artery disease) Hx MRSA infection Essential hypertension Vitamin D deficiency Surgical History Status post foot surgery H/O shoulder surgery Hx of BKA History of appendectomy History of cholecystectomy History of hysterectomy History of hand surgery History of foot surgery Family History Other Cancer Heart attack Hyperlipidemia Hypertension Stroke Social History Smoking Status: Never smoker smoking status stop date: 07/17/2023 second hand exposure: No alcohol intake: never counseling given: No substance use type: denies use counseling given: No current occupational status: disabled Travel in the last 8 weeks?: None adopted: No caregiver/support person: No foster care: No household members: children housing: house lives independently: Yes marital status: number of children: 1 number of grandchildren: 0 education level: high school 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; 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 current occupational exposures/hazards: Yes pets and animals: Yes pets and animals: cat(s) Hx Recent Travel: No sexually active: No caffeine: Yes physical activity: none dyana/sabianism: Lutheran special dyana needs: No working smoke detector in home: Yes fire extinguisher in home: Yes carbon monox detector in home: Yes firearms in home: No do you feel safe at home: Yes victim of physical abuse: No victim of emotional abuse: No victim of sexual abuse: No would you like helpful sources: No Have you lived/traveled outside [place] in past 30 days?: No Contact w/someone who lives/traveled outside [place] past 30 days?: No Exposure to someone with infectious disease in past 14 days?: No Do you have a fever (greater than 100.4 F or 38 C)?: No Have you tested positive for COVID-19?: No Exposed to someone with COVID-19 in past 14 days?: No Do you have a sore throat?: No Do you have a cough?: No Do you have any weakness?: No Do you have any diarrhea?: No Are you experiencing any unusual bleeding?: No Do you have any muscle aches/pain?: No Do you have any abdominal pain?: No Are you experiencing loss of taste or smell?: No Other 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 Have you received the Flu Vaccine for this season: No Have you received the Pneumonia Vaccine: No <Pauly Duffy APRN - Last Filed: 06/26/25 14:15> ROS Obtained: Yes Systems reviewed as appropriate & no additional complaints except as documented Physical Exam <Pauly Duffy APRN - Last Filed: 06/26/25 14:15> General General appearance: alert Eye Eye exam: Present PERRL Chest Chest inspection: Present normal inspection Respiratory Respiratory exam: Present normal lung sounds bilaterally; Absent respiratory distress Cardiovascular Cardiovascular exam: Present regular rate Abdominal Exam Abdominal exam: Present soft and tenderness (LUQ) Extremities Exam Extremities exam: Present full ROM Neurological Exam Neurological exam: Present alert and oriented X3 Skin Skin exam: Present warm and dry Medical Decision Making <Pauly Duffy APRN - Last Filed: 06/26/25 14:15> Medical Records Screening: Per USPSTF and CDC recommendations, given the prevalence of disease in our region, it is our hospital?s policy to screen for HIV and viral Hepatitis for all patients aged 18 and over and those with ongoing risk factors. Harsha Inquiry Pt receiving controlled substance: No Vital Signs: 06/26/25 11:02 06/26/25 11:18 06/26/25 11:31 Temperature 98 F Temperature Source Oral Pulse Rate 69 76 Pulse Rate [Right Radial] 86 Respiratory Rate 15 Blood Pressure 157/73 H 158/76 H Blood Pressure [Right Arm] 164/71 H Blood Pressure Mean [Right Arm] 102 Blood Pressure Source Blood Pressure Source [Right Arm] Automatic Cuff Blood Pressure Position Blood Pressure Position [Right Arm] Supine 02 Sat by Pulse Oximetry 98 97 98 Oxygen Delivery Method Room Air 06/26/25 12:07 06/26/25 12:31 06/26/25 13:01 Temperature Temperature Source Pulse Rate 69 88 96 H Pulse Rate [Right Radial] Respiratory Rate Blood Pressure 137/74 147/85 H 154/65 H Blood Pressure [Right Arm] Blood Pressure Mean [Right Arm] Blood Pressure Source Blood Pressure Source [Right Arm] Blood Pressure Position Blood Pressure Position [Right Arm] 02 Sat by Pulse Oximetry 97 99 98 Oxygen Delivery Method 06/26/25 13:43 Temperature 97.9 F Temperature Source Oral Pulse Rate 74 Pulse Rate [Right Radial] Respiratory Rate 18 Blood Pressure 135/74 Blood Pressure [Right Arm] Blood Pressure Mean [Right Arm] Blood Pressure Source Automatic Cuff Blood Pressure Source [Right Arm] Blood Pressure Position Supine Blood Pressure Position [Right Arm] 02 Sat by Pulse Oximetry Oxygen Delivery Method Room Air Lab Data Lab Results 06/26/25 10:58: WBC 10.6, RBC 4.75, Hgb 13.3, Hct 41.0, MCV 86.3, MCH 28.0, MCHC 32.4, RDW 14.2, Plt Count 296, MPV 11.3 H, Neut % (Auto) 77.6, Lymph % (Auto) 16.1, [place] % (Auto) 4.2, Eos % (Auto) 0.9, Baso % (Auto) 0.6, Neut # (Auto) 8.2 H, Lymph # (Auto) 1.7, [place] # (Auto) 0.4, Eos # (Auto) 0.1, Baso # (Auto) 0.1, VBG pH 7.45 H, VBG pCO2 31.1 L, VBG pO2 32.8, VBG HCO3 21.2 L, VBG Total CO2 22.1 L, VBG O2 Saturation 69.7, VBG Base Excess -2.8 L, VBG Lactic Acid 3.0 H, Sodium 136, Potassium 4.0, Chloride 103, Carbon Dioxide 20 L, Anion Gap 17.0 H, BUN 8, Creatinine 0.70, Estimated Creat Clear 84, Estimated GFR 87, Est GFR ( Amer) 105, Glucose 341 H, Calcium 9.0, Total Bilirubin 0.8, AST 41 H, ALT 34, Alkaline Phosphatase 113, Troponin I < 0.01, Total Protein 8.3 H, Albumin 4.4, Globulin 3.9 H, Albumin/Globulin Ratio 1.1, Lipase 137 06/26/25 12:45: Urine HCG, Qual Negative 06/26/25 10:58 06/26/25 10:58 Orders (Tests/Meds): ED MEDICATIONS Discontinued Medications Generic Name Dose Route Start Last Admin Trade Name Freq PRN Reason Stop Dose Admin Sodium Chloride 1,000 mls @ 250 mls/hr 06/26/25 11:03 06/26/25 11:14 Sod Chlor 0.9% 1000ml Bag IV 06/26/25 15:02 250 mls/hr .Q4H ONE Administration Iopamidol 75 ml 06/26/25 11:46 06/26/25 11:47 Iopamidol-370 (76%);100ml Bottle IV 06/26/25 11:47 75 ml ONCE ONE Administration Promethazine HCl 25 mg 06/26/25 11:02 06/26/25 11:13 Promethazine Hcl 25mg/Ml 1ml Vial IV 06/26/25 11:03 25 mg ONCE ONE Administration Sodium Chloride 25 ml 06/26/25 11:02 06/26/25 11:14 Sodium Chloride 0.9% 25ml Bag IV 06/26/25 11:03 25 ml ONCE ONE Administration Sodium Chloride 10 ml 06/26/25 11:46 06/26/25 11:47 Sodium Chloride 0.9% 10ml Syr (Rad Only) IV 07/26/25 11:45 10 ml NEEDED PRN Administration Maintain IV Site ORDERS Category Date Time Status CT abdomen pelvis w con Stat Cat Scan 06/26/25 11:02 Completed CXR --portable [XR chest portable] Stat Exams 06/26/25 11:02 Completed CBC w/Auto Diff [Complete Blood Count Auto Diff] Stat Lab 06/26/25 10:58 Completed CMP [Comprehensive Metabolic Panel] Stat Lab 06/26/25 10:58 Completed Lipase Stat Lab 06/26/25 10:58 Completed Trop I [Troponin I] Stat Lab 06/26/25 10:58 Completed Urine , HCG Qual. Stat Lab 06/26/25 12:45 Completed VBG [Venous Blood Gas] Stat RT 06/26/25 10:58 Completed EKG Request [ECG Request] Stat Y 06/26/25 11:02 Ordered Medical Decision Narrative: In summary, patient is a 54-year-old female PMHx morbid obesity, CHF, CKD, anxiety, depression, type 2 diabetes, HTN, hyperlipidemia, hypertension who presents to the ED for nausea, vomiting and abdominal pain since last Thursday. Patient states she has been on Mounjaro since April, recently had a dose increase. She states she is having left upper quadrant abdominal pain. Patient advises that she was sent here by her PCP who advised that she may be in DKA. Patient reports she has been in DKA in the past. She has been taking Phenergan at home without any relief, last dose 0600. Upon initial evaluation patient is alert, oriented and cooperative. Physical exam remarkable for left upper quadrant abdominal tenderness, abdomen is soft. She is hypertensive, afebrile. Differential diagnosis includes pancreatitis, Mounjaro side effects, ischemia, ACS, infectious process, electrolyte abnormality, dehydration, among others. Discussed with patient we will proceed with IV fluids, Phenergan, lab workup and CT. CBC unremarkable for any leukocytosis, stable H&H. CMP remarkable for anion gap 17, glucose 341. First troponin < 0.01. Lipase normal at 137. VBG pH 7.45, HCO3 21.2, lactic acid 3. CT unremarkable for any acute findings on the final read. Upon reassessment, patient's condition has improved. She is able to tolerate PO without difficulty. She states that she feels better. I discussed with her I believe this is the side effects of her Mounjaro, I advised her not to take any additional Mounjaro until evaluated further by PCP. We discussed follow-up, discussed strict return precautions to the ED. Patient verbalized understanding. <Rocael Daily MD - Last Filed: 06/26/25 15:17> Vital Signs: 06/26/25 11:02 06/26/25 11:18 06/26/25 11:31 Temperature 98 F Temperature Source Oral Pulse Rate 69 76 Pulse Rate [Right Radial] 86 Respiratory Rate 15 Blood Pressure 157/73 H 158/76 H Blood Pressure [Right Arm] 164/71 H Blood Pressure Mean [Right Arm] 102 Blood Pressure Source Blood Pressure Source [Right Arm] Automatic Cuff Blood Pressure Position Blood Pressure Position [Right Arm] Supine 02 Sat by Pulse Oximetry 98 97 98 Oxygen Delivery Method Room Air 06/26/25 12:07 06/26/25 12:31 06/26/25 13:01 Temperature Temperature Source Pulse Rate 69 88 96 H Pulse Rate [Right Radial] Respiratory Rate Blood Pressure 137/74 147/85 H 154/65 H Blood Pressure [Right Arm] Blood Pressure Mean [Right Arm] Blood Pressure Source Blood Pressure Source [Right Arm] Blood Pressure Position Blood Pressure Position [Right Arm] 02 Sat by Pulse Oximetry 97 99 98 Oxygen Delivery Method 06/26/25 13:43 Temperature 97.9 F Temperature Source Oral Pulse Rate 74 Pulse Rate [Right Radial] Respiratory Rate 18 Blood Pressure 135/74 Blood Pressure [Right Arm] Blood Pressure Mean [Right Arm] Blood Pressure Source Automatic Cuff Blood Pressure Source [Right Arm] Blood Pressure Position Supine Blood Pressure Position [Right Arm] 02 Sat by Pulse Oximetry Oxygen Delivery Method Room Air Lab Data Lab Results 06/26/25 10:58: WBC 10.6, RBC 4.75, Hgb 13.3, Hct 41.0, MCV 86.3, MCH 28.0, MCHC 32.4, RDW 14.2, Plt Count 296, MPV 11.3 H, Neut % (Auto) 77.6, Lymph % (Auto) 16.1, [place] % (Auto) 4.2, Eos % (Auto) 0.9, Baso % (Auto) 0.6, Neut # (Auto) 8.2 H, Lymph # (Auto) 1.7, [place] # (Auto) 0.4, Eos # (Auto) 0.1, Baso # (Auto) 0.1, VBG pH 7.45 H, VBG pCO2 31.1 L, VBG pO2 32.8, VBG HCO3 21.2 L, VBG Total CO2 22.1 L, VBG O2 Saturation 69.7, VBG Base Excess -2.8 L, VBG Lactic Acid 3.0 H, Sodium 136, Potassium 4.0, Chloride 103, Carbon Dioxide 20 L, Anion Gap 17.0 H, BUN 8, Creatinine 0.70, Estimated Creat Clear 84, Estimated GFR 87, Est GFR ( Amer) 105, Glucose 341 H, Calcium 9.0, Total Bilirubin 0.8, AST 41 H, ALT 34, Alkaline Phosphatase 113, Troponin I < 0.01, Total Protein 8.3 H, Albumin 4.4, Globulin 3.9 H, Albumin/Globulin Ratio 1.1, Lipase 137 06/26/25 12:45: Urine HCG, Qual Negative Orders (Tests/Meds): ED MEDICATIONS Discontinued Medications Generic Name Dose Route Start Last Admin Trade Name Akiraq PRN Reason Stop Dose Admin Sodium Chloride 1,000 mls @ 250 mls/hr 06/26/25 11:03 06/26/25 11:14 Sod Chlor 0.9% 1000ml Bag IV 06/26/25 15:02 250 mls/hr .Q4H ONE Administration Iopamidol 75 ml 06/26/25 11:46 06/26/25 11:47 Iopamidol-370 (76%);100ml Bottle IV 06/26/25 11:47 75 ml ONCE ONE Administration Promethazine HCl 25 mg 06/26/25 11:02 06/26/25 11:13 Promethazine Hcl 25mg/Ml 1ml Vial IV 06/26/25 11:03 25 mg ONCE ONE Administration Sodium Chloride 25 ml 06/26/25 11:02 06/26/25 11:14 Sodium Chloride 0.9% 25ml Bag IV 06/26/25 11:03 25 ml ONCE ONE Administration Sodium Chloride 10 ml 06/26/25 11:46 06/26/25 11:47 Sodium Chloride 0.9% 10ml Syr (Rad Only) IV 07/26/25 11:45 10 ml NEEDED PRN Administration Maintain IV Site ORDERS Category Date Time Status CT abdomen pelvis w con Stat Cat Scan 06/26/25 11:02 Completed CXR --portable [XR chest portable] Stat Exams 06/26/25 11:02 Completed CBC w/Auto Diff [Complete Blood Count Auto Diff] Stat Lab 06/26/25 10:58 Completed CMP [Comprehensive Metabolic Panel] Stat Lab 06/26/25 10:58 Completed Lipase Stat Lab 06/26/25 10:58 Completed Trop I [Troponin I] Stat Lab 06/26/25 10:58 Completed Urine , HCG Qual. Stat Lab 06/26/25 12:45 Completed VBG [Venous Blood Gas] Stat RT 06/26/25 10:58 Completed EKG Request [ECG Request] Stat Y 06/26/25 11:02 Ordered Medical Decision Narrative: In summary, patient is a 54-year-old female PMHx morbid obesity, CHF, CKD, anxiety, depression, type 2 diabetes, HTN, hyperlipidemia, hypertension who presents to the ED for nausea, vomiting and abdominal pain since last Thursday. Patient states she has been on Mounjaro since April, recently had a dose increase. She states she is having left upper quadrant abdominal pain. Patient advises that she was sent here by her PCP who advised that she may be in DKA. Patient reports she has been in DKA in the past. She has been taking Phenergan at home without any relief, last dose 0600. Upon initial evaluation patient is alert, oriented and cooperative. Physical exam remarkable for left upper quadrant abdominal tenderness, abdomen is soft. She is hypertensive, afebrile. Differential diagnosis includes pancreatitis, Mounjaro side effects, ischemia, ACS, infectious process, electrolyte abnormality, dehydration, among others. Discussed with patient we will proceed with IV fluids, Phenergan, lab workup and CT. CBC unremarkable for any leukocytosis, stable H&H. CMP remarkable for anion gap 17, glucose 341. First troponin < 0.01. Lipase normal at 137. VBG pH 7.45, HCO3 21.2, lactic acid 3. CT unremarkable for any acute findings on the final read. Upon reassessment, patient's condition has improved. She is able to tolerate PO without difficulty. She states that she feels better. I discussed with her I believe this is the side effects of her Mounjaro, I advised her not to take any additional Mounjaro until evaluated further by PCP. We discussed follow-up, discussed strict return precautions to the ED. Patient verbalized understanding. I was consulted by the TOM, and we discussed the complexity of the problems being addressed. I approve the treatment and management plan for this patient's care in the emergency department, thus performing a substantive portion of the medical decision making. Rocael Daily MD Critical Care <Pauly Duffy, SENIOR MECHANICAL ESTIMATOR - Last Filed: 06/26/25 14:15> Critical Care Time Critical Care Time: No
[2025-06-26 11:17] LABS: Alanine Aminotransferase 34 U/L (12-78); Albumin/Globulin Ratio 1.1 (1.1-1.8); Alkaline Phosphatase 113 U/L (38-126); Anion Gap 17.0 mEq/L (5-15); Aspartate Amino Transferase 41 U/L (14-36); Bilirubin,Total 0.8 mg/dl (0.2-1.3); Blood Urea Nitrogen 8 mg/dl (7-17); Calcium 9.0 mg/dl (8.4-10.2); Carbon Dioxide 20 mmol/L (22.0-30.0); Creatinine Clearance Estimated 84 mL/min (50-200); Creatinine,Serum 0.70 mg/dl (0.52-1.04); Estimated Glomerular Filt Rate 87 ml/min (>60); GFR (African American) 105 ML/MIN (>60); Globulin 3.9 g/dL (1.3-3.2); Glucose 341 mg/dl (74-100); Lipase 137 U/L (23-300); Total Protein,Serum 8.3 g/dl (6.3-8.2)
--- OUTSIDE RECORDS SUMMARY | 2025-06-26 11:18 | XMS_ITS | Clinical Summary ---
Author Organization [facility] Address [address] [place] [id number] Care Team Providers Care Estimating Engineer Name Role Phone Diego Lynch MD Primary Care Provider [phone] Allergies Active Allergy Reactions Criticality Noted Date Comments Amoxicillin Hives 07/09/2018 Codeine GI Intolerance Morphine GI Intolerance Oxycodone-Acetaminophen GI Intolerance Medications pregabalin (LYRICA) 225 MG capsule Take 225 mg by mouth 2 (Two) Times a Day. Active DULoxetine (CYMBALTA) 60 MG capsule Take 60 mg by mouth 2 (Two) Times a Day. Active ramipril (ALTACE) 10 MG capsule Take 10 mg by mouth Daily. Active carvedilol (COREG) 6.25 MG tablet Take 6.25 mg by mouth 2 (Two) Times a Day With Meals. Active aspirin 81 MG EC tablet Take 81 mg by mouth Daily. Active glipiZIDE (GLUCOTROL) 10 MG tablet Take 10 mg by mouth 2 (Two) Times a Day Before Meals. Active HYDROcodone-acet aminophen (NORCO) 10-325 MG per tablet Take 1 tablet by mouth Every 6 (Six) Hours As Needed for Moderate Pain . Active atorvastatin (LIPITOR) 40 MG tablet Take 40 mg by mouth Every Night. Active isosorbide mononitrate (IMDUR) 60 MG 24 hr tablet Take 60 mg by mouth Every Night. Active LORazepam (ATIVAN) 1 MG tablet Take 1 mg by mouth Every 8 (Eight) Hours As Needed for Anxiety. Active traZODone (DESYREL) 100 MG tablet Take 100 mg by mouth Every Night. Active Multiple Vitamins-Mineral s (MULTIVITAMIN ADULT PO) Take 1 tablet by mouth Daily. Active insulin glargine (LANTUS) 100 UNIT/ML injection Inject 70 Units under the skin into the appropriate area as directed Every Night. Active furosemide (LASIX) 40 MG tablet Take 40 mg by mouth Daily As Needed. Active nitroglycerin (NITROSTAT) 0.[address] 0.4 mg under the tongue Every 5 (Five) Minutes As Needed for Chest Pain. Take no more than 3 doses in 15 minutes. Active traMADol (ULTRAM) 50 MG tablet Take 50 mg by mouth Every 6 (Six) Hours As Needed for Moderate Pain . Active Liraglutide (Victoza) 18 MG/3ML solution pen-injector injection Inject 1.8 mg under the skin into the appropriate area as directed Daily. Active ezetimibe (Zetia) 10 MG tablet Take 10 mg by mouth Daily. Active clopidogrel (PLAVIX) 75 MG tablet Take 1 tablet by mouth Daily. 30 tablet 11 0 Active Active Problems Problem Noted Date Diagnosed Date Unstable angina 03/23/2020 Overview (03/23/2020): Added automatically from request for surgery [id number] Social History Tobacco Use Types Packs/Day Years Used Date Smoking Tobacco: Former Cigarettes 1.5 25 0 12/09/1989 - 12/09/2014 Smokeless Tobacco: Never Tobacco Cessation:Counseling Given: No Alcohol Use Standard Drinks/Week Comments Not Currently 0 (1 standard drink = 0.6 oz pur e alcohol) Abuse Screen Answer Date Recorded Unsafe at Home or Work/School Not on file Feels Threatened by Someone? Not on file 07/2023 Does Anyone Keep You from Co ntacting Others or Doint Things Outside the Home? Not on file 08/24/2023 Physical Sign of Abuse Present Not on file 1 Housing Stability Answer Date Recorded Current Living Arrangements Not on file 07/2023 Potentially Unsafe Housing Conditions Not on grace e 08/24/2023 Family and Community Support Answer Khadar e Recorded Help with Day-to-Day Activities Not on file 08/24/2023 Lonely or Isolated Not on file 08/24/2023 Employment Answer Date Recorded Do you want help finding or keeping work or a isidoro b? Not on file 08/24/2023 Disabilities Answer Date Recorded Concentrating, Remembering, or Making Decisions Difficulty Not on file 08/24/2023 Doing Errands Independently Difficulty Not on fi le 08/24/2023 Education Answer Date Recorded Help with school or training? Not on file Preferred Language Not on file 08/24/2023 Comments Unknown Sex and Gender Information Value Date Recorded Sex Assigned at Not on file Legal Sex Female 11:19 AM EDT Gender Identity Not on file Sexual Orientation Not on file Last Filed Vital Signs Vital Sign Reading Time Taken Comments Blood Pressure 100/65 03/26/2020 5:00 PM EDT Pulse 77 03/26/2020 5:00 PM EDT Temperature 36.7 C (98 F) 03/26/2020 11:34 AM EDT Respiratory Rate 18 03/26/2020 1:45 PM EDT Oxygen Saturation 94% 03/26/2020 5:00 PM EDT Inhaled Oxygen Concentration - - Weight 139 kg (307 lb 8 oz) 03/26/2020 11:34 AM EDT Height 167.6 cm (5' 6 ) 03/26/2020 11:34 AM EDT Body Mass Index 49.63 03/26/2020 11:34 AM EDT Plan of Treatment Health Maintenance Due Date Last Done Comments Annual Gynecologic Pelvic and Breast Exam 1970 TDAP/TD VACCINES (1 - Tdap) 1987 MAMMOGRAM 2008 COLOGUARD 2013 COLON CANCER SCREENING 5 YEAR SIGMOIDOSCOPY 2013 COLONOSCOPY [address] CANCER SCREENING [address] COLONOGRAPHY 2013 FECAL OCCULT BLOOD TEST 2013 FIT Testing (1 year) 2013 Pneumococcal Vaccine 50+ (1 of 1 - PCV) 2018 ZOSTER VACCINE (1 of 2) 2018 ANNUAL PHYSICAL 03/27/2020 HEPATITIS C SCREENING 03/27/2020 COVID-19 Vaccine ( - season) 2024 INFLUENZA VACCINE 08/16/2025 08/16/2020 Medical Devices Implanted Type Area Casino Worker Device Identifier Shelf Expiration Date Model / Serial / Lot Stnt Xience Kiesha Everolimus Monico 4x23mm - [id number] Implanted:Qty: 1 on 03/26/2020 by Julio César Manzano MD at [facility] VASCULAR [id number] / / [id number] Insurance MEDICARE A & B Care Teams Estimating Engineer Relationship Specialty Start Date End Date Diego Lynch MD [address] [facility] [address] [place] [address] PCP - General Internal Medicine 07/09/18
--- OUTSIDE RECORDS SUMMARY | 2025-06-26 11:18 | XMS_ITS | Encounter Summary ---
Author Organization [employer] ([place], [place], [place], [place]) Address [address] [place] [address] Care Team Providers Care Machine Installer Name Role Phone Unavailable Primary Care Provider Unavailabl e Encounter Details Date Type Department Care Team (Late st Contact Info) Description 08/12/2019 Transcribed Document [facility] [place] Medicine [facility] [place] [address] ProviderEvangelista MD [address] [place] [address] Social History Tobacco Use Types Packs/Day Years Used Date Smoking Tobacco: Never Assessed Comments Unknown Sex and Gender Information Value Date Recorded Sex Assigned at Not on file Legal Sex Female 3:10 PM CDT Gender Identity Not on file Sexual Orientation Not on file documented as of this encounter Miscellaneous Notes * Cerner Conversion Note - Evangelista ProviderMD - 08/12/2019 12:31 PM CDT Patient: ANGEL [...]
--- OUTSIDE RECORDS SUMMARY | 2025-06-26 11:18 | XMS_ITS | Encounter Summary ---
Author Organization [employer] ([place], [place], [place], [place]) Address [address] [place] [address] Care Team Providers Care Handle Machine Operator Name Role Phone Unavailable Primary Care Provider Unavailabl e Encounter Details Date Type Department Care Team (Late st Contact Info) Description 10/14/2019 Transcribed Document [facility] [place] [facility] [place] [address] ProviderEvangelista MD [address] [place], [place] [id number] Social History Tobacco Use Types Packs/Day Years Used Date Smoking Tobacco: Never Assessed Comments Unknown Sex and Gender Information Value Date Recorded Sex Assigned at Not on file Legal Sex Female 3:10 PM CDT Gender Identity Not on file Sexual Orientation Not on file documented as of this encounter Miscellaneous Notes * Cerner Conversion Note - Evangelista ProviderMD - 10/14/2019 12:06 PM CLUB MANAGER Patient: BEE COLON Age: 49 Years Sex: [...] 75% pain relief at this time with [place] 10/325 mg four times daily dosing, Tramadol [...] implantation with good coverage. 4. History of Vijvsnw-Zvglp-Vlcyd involving the bilateral feet. 5. Left foot [...]
--- OUTSIDE RECORDS SUMMARY | 2025-06-26 11:18 | XMS_ITS | Encounter Summary ---
Author Organization [employer] ([place], [place], [place], [place]) Address [address] [place] [address] Care Team Providers Care Meteorological Engineer Name Role Phone Unavailable Primary Care Provider Unavailabl e Encounter Details Date Type Department Care Team (Late st Contact Info) Description 03/20/2022 Transcribed Document [facility] [place] Family Medicine [facility] [place] [address] ProviderEvangelista MD [address] [place] [address] Social History Tobacco Use Types [...] Evangelista ProviderMD - 03/20/2022 9:01 AM CDT [facility] Main OR Preop Summary Primary Physician: ANGELA GREEN DPM-POD Finalized Date/Time: 03/20/22 11:59:52 Pt. Name: BEE COLON./Sex: 1970 Female Med Rec #: [id number] Physician: ANGELA GREEN DPM-POD Financial #: [id number] Pt. Type: O Room/Bed: /6 Admit/Disch: 03/20/22 06:30:00 - 03/20/22 10:56:00 Institution: [facility] PreOp Case Times Entry 1 In Preop 03/20/22 06:25:00 Ready for Holding n/a Room Patient Ready for 03/20/22 07:40:00 Surgery Patient Out of Preop 03/20/22 08:44:00 Patient Out of n/a Holding Room Last Modified By: Nik Stewart RN-PATIENT CARE BEDSIDE NON-EXEMPT 03/20/22 11:59:49 [facility] PreOp Case Times Audit 03/20/22 11:59:49 Community Arts Worker: [id number] Modifier: [id number] <+> 1 Patient Out of Preop 03/20/22 08:03:25 Community Arts Worker: [id number] Modifier: [id number] <*> Patient Ready for Surgery 03/20/22 08:03:00 03/20/22 08:03:19 Community Arts Worker: [id number] Modifier: [id number] <+> 1 Patient Ready for Surgery Finalized By: Nik Stewart RN-PATIENT CARE BEDSIDE NON-EXEMPT Document Signatures Signed By: Nik Stewart RN-PATIENT CARE BEDSIDE NON-EXEMPT 03/20/22 11:59 Electronically signed by Atul [facility] Conversion Therapy Technician Cerner at 03/05/2023 6:50 PM CDT documented in this encounter Plan of Treatment Not on file documented as of this encounter Visit Diagnoses Not on filedocumented in this encounter
--- OUTSIDE RECORDS SUMMARY | 2025-06-26 11:18 | XMS_ITS | Clinical Summary ---
Author Organization [facility] Address [address] [place] [address] Phone Care Team Providers Care Serging Machine Operator Name Role Phone Kaity Emerson Unavailable Unavailable Conditions or Problems Problem Name Problem Code Onset Date Status Entry Date Provider Comment Standard Description Annotate Candidiasis , vaginal 78379032 (SNOMED CT) 03/18 Active 03/19 Charlene W Candidiasis of vagina Thrush, oral 82833195 (SNOMED CT) 03/11 Inactive 03/11 Charlene W Candidiasis of mouth Problem excluded fro m report: Other obesity due to excess calories 994271716 (SNOMED CT) 03/15 Active 03/15 Cindi Traore Simple obesity Thrush, oral 13657345 (SNOMED CT) 03/11 Active 03/11 Jeet Rene MD Candidiasis of mouth Thrush, oral 26945468 (SNOMED CT) 03/11 Removed 03/11 Elizabeth Sims Candidiasis of mouth Hx of left TMA 36899158128 020573 (SNOMED CT) 03/04 Active 03/01 Charlene W History of amputation of left lesser toe DM non-pressur e chronic ulcer of left foot, plantar surface, with bone involvement without evidence of necrosis (E11.621) 750136999 (SNOMED CT) 03/01 Inactive 03/01 Luna Hughes Chronic ulcer of foot Chronic osteomyelit is, left foot M86.672 (ICD-10-CM) 03/01 Active 03/01 Luna Hughes Other chronic osteomyelitis, left ankle and foot Coronary artery disease (CAD) 39945620 (SNOMED CT) 03/01 Active 03/01 Luna Hughes Coronary arteriosclerosi s Benign Essential Hypertensio n 6219264 (SNOMED CT) 03/01 Active 03/01 Luna Hughes Benign essential hypertension Cellulitis, foot, left 522091316 (SNOMED CT) 03/01 Active 03/01 Luna Hughes Cellulitis of foot DM Type II E11.9 (ICD-10-CM) 03/01 Active 03/01 Luna Hughes Type 2 diabetes mellitus without complications BMI 45.0-49.9 Z68.42 (ICD-10-CM) 12/14 Resolved 12/14 Luna Hughes Body mass index [BMI] 45.0-49.9, adult MORBID OBESITY 099983899 (SNOMED CT) 12/14 Resolved 12/14 Luna Hughes Morbid obesity TOBACCO USER 479589386 (SNOMED CT) 12/03 Resolved 12/03 Luna Hughes Tobacco user C. DIFF COLITIS A04.7 (ICD-10-CM) 12/03 Resolved 12/03 Luna Hughes Enterocolitis due to Clostridium difficile DM II, UNCONTROLLE D E11.65 (ICD-10-CM) 12/03 Resolved 12/03 Luna Hughes Type 2 diabetes mellitus with hyperglycemia FEVER 721318102 (SNOMED CT) 12/03 Resolved 12/03 Luna Saul Fever VAGINAL CANDIDIASIS 03375491 (SNOMED CT) 12/03 Resolved 12/03 Luna Saul Candidiasis of vagina DIVERTICULI TIS OF SIGMOID COLON 394853477 (SNOMED CT) 12/03 Resolved 12/03 Luna Saul Diverticulitis of sigmoid colon BMI 45.0-49.9 Z68.42 (ICD-10-CM) 12/14 Removed 12/14 Charlene W Body mass index [BMI] 45.0-49.9, adult MORBID OBESITY 948143833 (SNOMED CT) 12/14 Removed 12/14 Charlene W Morbid obesity DM II, UNCONTROLLE D E11.65 (ICD-10-CM) 12/03 Removed 12/03 Charlene W Type 2 diabetes mellitus with hyperglycemia DIARRHEA OF PRESUMED INFECTIOUS ORIGIN 58491231 (SNOMED CT) 12/03 Correction 12/03 Charlene W Diarrhea of presumed infectious origin ABDOMINAL PAIN, LEFT LOWER QUADRANT 352943269 (SNOMED CT) 12/03 Correction 12/03 Charlene W Left lower quadrant pain WEAKNESS 65937938 (SNOMED CT) 12/03 Correction 12/03 Charlene W Asthenia WEIGHT LOSS 377151943 (SNOMED CT) 12/03 Correction 12/03 Charlene W Abnormal weight loss DIARRHEA 80600139 (SNOMED CT) 12/03 Correction 12/03 Charlene W Diarrhea DM TYPE II E11.9 (ICD-10-CM) 12/03 Correction 12/03 Luna Hughes Type 2 diabetes mellitus without complications TOBACCO USER 841934953 (SNOMED CT) 12/03 Removed 12/03 Luna Saul Tobacco user WEIGHT LOSS 300729574 (SNOMED CT) 12/03 Removed 12/03 Luna Saul Abnormal weight loss WEAKNESS 23933466 (SNOMED CT) 12/03 Removed 12/03 Luna Saul Asthenia FEVER 505723051 (SNOMED CT) 12/03 Removed 12/03 Luna Saul Fever C. DIFF COLITIS A04.7 (ICD-10-CM) 12/03 Removed 12/03 Luna Saul Enterocolitis due to Clostridium difficile DIARRHEA OF PRESUMED INFECTIOUS ORIGIN 16699526 (SNOMED CT) 12/03 Removed 12/03 Luna Saul Diarrhea of presumed infectious origin DIARRHEA 51854023 (SNOMED CT) 12/03 Removed 12/03 Luna Saul Diarrhea DIVERTICULI TIS OF SIGMOID COLON 472723291 (SNOMED CT) 12/03 Removed 12/03 Luna Saul Diverticulitis of sigmoid colon ABDOMINAL PAIN, LEFT LOWER QUADRANT 289851956 (SNOMED CT) 12/03 Removed 12/03 Luna Saul Left lower quadrant pain VAGINAL CANDIDIASIS 67307066 (SNOMED CT) 12/03 Removed 12/03 Luna Hughes Candidiasis of vagina Medications Medication Instructions Start Date Stop Date Generic Name NDC Provider DOXYCYCLINE MONOHYDRATE 100 MG CAPS Take one capsule by mouth twice daily DOXYCYCLINE MONOHYDRATE 44861311452 Jeet Rene MD TEFLARO SOLR 600mg IV Q 12hrs x 4wks Bioscrip/Dose, line care, labs [facility] CEFTAROLINE FOSAMIL SOLR [id number] Kaity Emerson DOXYCYCLINE MONOHYDRATE 100 MG CAPS Take one capsule by mouth twice daily DOXYCYCLINE MONOHYDRATE 97266504718 Jeet Rene MD FLUCONAZOLE 100 MG TABS Take two tablets by mouth once daily FLUCONAZOLE 02141178294 Jeet Rene MD DIFLUCAN 100 MG TABS Take two tablets by mouth once daily FLUCONAZOLE 61049708380 Jeet Rene MD FLAGYL 500 MG ORAL TABLET Take one tablet by mouth three times daily METRONIDAZOLE 43258417880 Jeet Rene MD ONDANSETRON 4 MG TBDP Take one tablet by mouth every 12 hours ONDANSETRON 08013781831 Jeet Rene MD TEFLARO SOLR 600mg IV Q 12hrs x 4wks Bioscrip/Dose, line care, labs [facility] CEFTAROLINE FOSAMIL SOLR 79397496623 Kaity Ki DAPTOMYCIN SOLR 750mg IV daily x 6wks HH Bioscrip/Dose, line care labs LID DAPTOMYCIN SOLR 09657570590 Kaity Ki CEFEPIME HCL SOLN 2gm IV q 12hrs x 6wks HH Bioscrp, Dose, line care, labs LID CEFEPIME HCL SOLN 14227144314 Kaity Emerson FLUCONAZOLE 200 MG TABS Take one tablet by mouth daily FLUCONAZOLE 94410468765 Jeet Rene MD CEFEPIME HCL SOLN 2gm IV q 12hrs x 6wks Bioscrp, Dose, line care, labs [facility] CEFEPIME HCL SOLN [id number] Kaity Emerson DAPTOMYCIN SOLR 750mg IV daily x 6wks Bioscrip/Dose, line care labs [facility] DAPTOMYCIN SOLR 38496639501 Kaity Emerson FLAGYL 500 MG ORAL TABLET Take one tablet by mouth three times daily METRONIDAZOLE 29018408894 Jeet Rene MD TETRACYCLINE HCL 500 MG CAPS TETRACYCLINE HCL 03985073489 Vivek D HYDROMORPHONE HCL 2 MG TABS TAKE ONE TABLET BY MOUTH EVERY 4 HOURS NEEDED FOR moderate TO SEVERE pain MAY CAUSE DROWSINESS HYDROMORPHONE HCL 69330321119 Vivek D ONETOUCH ULTRA STRP USE 1 STRIP TO CHECK GLUCOSE THREE TIMES DAILY GLUCOSE BLOOD 43921361763 Vivek Thomson LACTINEX ORAL TABLET CHEWABLE one by mouth three times a day LACTOBACILLUS 79991406474 Jeet Rene MD FLAGYL 500 MG ORAL TABLET one by mouth three times a day x 2 weeks METRONIDAZOLE 67590699685 Jeet Rene MD LEVAQUIN 750 MG ORAL TABLET one by mouth daily x 2 weeks LEVOFLOXACIN 68323561602 Jeet Rene MD INVANZ (IJ) SOLUTION RECONSTITUTED 1 gm IV daily OPAT ERTAPENEM SODIUM SOLR 56336352100 Jeet Rene MD LANTUS 100 UNIT/ML SOLN INSULIN GLARGINE 62089001923 Aury Z DIFLUCAN TABLET FLUCONAZOLE TABS 32614987867 Aury Z INVANZ (IJ) SOLUTION RECONSTITUTED 1 gm IV daily OPAT ERTAPENEM SODIUM SOLR 84793589852 Peggy Sharma MD DIFLUCAN 200 MG TABS take one daily for yeast infection FLUCONAZOLE 00826661421 Peggy Sharma MD LORTAB 10-500 MG ORAL TABLET HYDROCODONE-ACET AMINOPHEN 71180153730 Peggy Sharma MD NORCO TABS HYDROCODONE-ACET AMINOPHEN TABS 77869258814 Peggy Sharma MD LYRICA CAPS PREGABALIN CAPS 14488413841 Jahaira Merlos CYMBALTA CPEP DULOXETINE HCL CPEP 97089896729 Jahaira G LASIX TABS FUROSEMIDE TABS 68163708721 Jahaira G NORCO TABS HYDROCODONE-ACET AMINOPHEN TABS 15441792614 Jahaira Merlos ATENOLOL TABS ATENOLOL TABS 22660122445 Jahaira Merlos GLYBURIDE TABS GLYBURIDE TABS 67839539008 Jahaira Merlos INVANZ (IJ) SOLUTION RECONSTITUTED ERTAPENEM SODIUM SOLR 06505184959 Jahaira Merlos DIFLUCAN TABLET FLUCONAZOLE TABS 16367887862 Jahaira Merlos Medications Administered No information available. [...] Documenta tion of current medications (procedure) DIET REAL ESTATE LAWYER yes Dietary management education, guidance, and counseling [...] CPT-wclc Weekly Central Line Care 202 11/21/06 CPT-94003 CMP [id number] CBC with Differential 2020 CPT-71481 C- reactive protein CPT-43695 Sedimentation Rate (ESR) 202 11/21/06 CPT-ca Continue IV antibiotics 2020 CPT-Cooral Continue oral antibiotics 20 05/04/24 CPT-cwl Weekly Labs (Continue) 04/08 CPT-wclc Weekly Central Line Care 202 11/20/23 CPT-86857 CMP CPT-99038 CBC w/o Differential [id number], [id number] CPK CPT-15689 Sedimentation Rate (ESR) 202 11/20/23 CPT-43435 C- reactive protein CPT-85818 CMP CPT-52386 C- reactive protein CPT-56472 Sedimentation Rate (ESR) 202 11/20/09 CPT-ca Continue IV antibiotics 2020 CPT-wpc Weekly PICC Line Care 03/18 CPT-cwl Weekly Labs (Continue) 03/18 CPT-59530 CMP CPT-09686 CBC w/o Differential L356714, [id number] CPK CPT-41454 Sedimentation Rate (ESR) 11/20/02 CPT-ca Continue IV antibiotics 2020 CPT-wpc Weekly PICC Line Care 03/11 CPT-cwl Weekly Labs (Continue) 03/11 CPT-53224 CMP CPT-30947 CBC w/o Differential [id number], [id number] CPK CPT-40927 Sedimentation Rate (ESR) 202 11/19/25 CPT-kayli New IV antibiotic CPT-cwl Weekly Labs (Continue) 03/04 CPT-wclc Weekly Central Line Care 202 11/19/18 CPT-90177 CMP CPT-16316 CBC w/o Differential 19 CPT-26399 C- reactive protein CPT-56210 Sedimentation Rate (ESR) 202 11/19/18 CPT-sl STAT Labs CPT-DC Discontinue IV antibiotics 2 CPT-25951 BMP CPT-43151 CBC w/o Differential CPT-kayli New IV antibiotic CPT-J1335 Ertapenem CPT-69365 CMP CPT-26188 CBC with Differential 12/03 CPT-cdpcr C-Diff PCR [...]
--- OUTSIDE RECORDS SUMMARY | 2025-06-26 11:18 | XMS_ITS | Encounter Summary ---
Author Organization [employer] ([place], [place], [place], [place]) Address [address] [place] [address] Care Team Providers Care Land Surveying Manager Name Role Phone Unavailable Primary Care Provider Unavailabl e Encounter Details Date Type Department Care Team (Late st Contact Info) Description 10/10/2020 Transcribed Document [facility] [place] Family Medicine [facility] [place] [address] ProviderEvangelista MD [address] [place], [place] [id number] Social History Tobacco Use Types Packs/Day Years Used Date Smoking Tobacco: Never Assessed Comments Unknown Sex and Gender Information Value Date Recorded Sex Assigned at Not on file Legal Sex Female 3:10 PM CDT Gender Identity Not on file Sexual Orientation Not on file documented as of this encounter Miscellaneous Notes * Cerner Conversion Note - Evangelista ProviderMD - 10/10/2020 10:58 AM FITTING ROOM INSPECTOR Patient: BEE COLON Age: 50 Years Sex: [...] 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 CURRENT PLAN: Ms. Colon and I discussed different options with her medication and her spinal cord stimulator. We have decided to get smooth of [employer] about reprogramming before we do anything with her medication. So, I have contacted them and asked if they could call her. I am going to continue her on her Eros 10 mg every 6 hours, Lyrica 200 mg every 12 hours, Tramadol 50 mg every six hours, Cymbalta 60 mg every 12 hours, Trazodone 100 mg qhs. She denies any side effects. She is in agreement with the above plan. We will see her back in follow-up in two months. Anahy Fraser M.D. GEORGI/minh documented in this encounter Plan of Treatment Not on file documented as of this encounter Visit Diagnoses Not on filedocumented in this encounter
--- OUTSIDE RECORDS SUMMARY | 2025-06-26 11:18 | XMS_ITS | Encounter Summary ---
Author Organization [employer] ([place], [place], [place], [place]) Address [address] [place] [address] Care Team Providers Care Insights Manager Name Role Phone Unavailable Primary Care Provider Unavailabl e Encounter Details Date Type Department Care Team (Late st Contact Info) Description 03/20/2022 Transcribed Document [facility] [place] [facility] [place] [address] ProviderEvangelista MD [address] [place] [address] Social History Tobacco Use Types [...] and water are not available, use hand carton machine operator. ? Change your dressing as told [...] fried or sweet foods. ? Take an ejwb-jfj-olssvuc or prescription medicine for constipation. ??? Do not use any products that contain nicotine or tobacco, such as cigarettes and e-cigarettes. These can delay bone healing after surgery. If you need help quitting, ask your health care provider. ??? Take htur-kxt-ipxschm and prescription medicines only as told by [...] provider. Document Revised: 12/29/2019 Document Reviewed: 11/25/2018 [employer] Patient Education ? 2020 [employer]. Procedures Outpatient Surgery, Adult, Care After This [...] children on your own. Medicines ??? Take yiio-sxc-ojxigum and prescription medicines only as told by [...] keep your urine pale yellow. ? Take ptdz-ntx-ighkijz or prescription medicines. ? Eat foods that [...] added (diluted fruit juice). ? Eat bland, vcuo-sm-htttua foods in small amounts as you are [...] and water are not available, use hand carton machine operator. ? Change your dressing as told [...] drink clear fluids slowly and eat bland, dwln-jw-suhvqk foods in small amounts. ??? Ask your health care provider what activities are safe for you. This information is not intended to replace advice given to you by your health care provider. Make sure you discuss any questions you have with your health care provider. Document Revised: 03/01/2021 Document Reviewed: 08/23/2020 [employer] Patient Education ? 2020 [employer]. documented in this encounter Plan of Treatment Not on file documented as of this encounter Visit Diagnoses Not on filedocumented in this encounter
--- OUTSIDE RECORDS SUMMARY | 2025-06-26 11:18 | XMS_ITS | Encounter Summary ---
Author Organization [employer] ([place], [place], [place], [place]) Address [address] [place] [address] Care Team Providers Care Sales Ambassador Name Role Phone Unavailable Primary Care Provider Unavailabl e Encounter Details Date Type Department Care Team (Late st Contact Info) Description 03/20/2022 Transcribed Document [facility] [place] [facility] [place] [address] ProviderEvangelista MD [address] [place] [address] Social History Tobacco Use Types [...]
--- OUTSIDE RECORDS SUMMARY | 2025-06-26 11:18 | XMS_ITS | Encounter Summary ---
Author Organization [employer] ([place], [place], [place], [place]) Address [address] [place] [address] Care Team Providers Care Mortgage Or Loan Underwriter Name Role Phone Unavailable Primary Care Provider Unavailabl e Encounter Details Date Type Department Care Team (Late st Contact Info) Description 08/12/2019 Transcribed Document [facility] [place] [address] ProviderEvangelista MD [address], [place] [id number] Social History Tobacco Use Types Packs/Day Years Used Date Smoking Tobacco: Never Assessed Comments Unknown Sex and Gender Information Value Date Recorded Sex Assigned at Not on file Legal Sex Female 3:10 PM CDT Gender Identity Not on file Sexual Orientation Not on file documented as of this encounter Miscellaneous Notes * Cerner Conversion Note - Evangelista ProviderMD - 08/12/2019 12:24 PM CDT Patient: BEE [...] cord stimulator implantation with good coverage. 3. Rtjfazx-Bzzed-Yieew syndrome right foot. PROCEDURE/TEST ORDERED: Not present. PLAN: Will continue Ms. Colon on her current medication of [place] 10 mg. q.6 hours, Tramadol 50 mg. [...]
--- OUTSIDE RECORDS SUMMARY | 2025-06-26 11:18 | XMS_ITS | Encounter Summary ---
Author Organization [employer] ([place], [place], [place], [place]) Address [address] [place] [address] Care Team Providers Care Fourdrinier Operator Name Role Phone Unavailable Primary Care Provider Unavailabl e Encounter Details Date Type Department Care Team (Late st Contact Info) Description 03/20/2022 Transcribed Document [facility] [place] [address] ProviderEvangelista MD [address] [place], [place] [id number] Social History Tobacco Use Types Packs/Day Years [...] Patient : 1970 SURGEON: Sam Hamlin DPM DINING ROOM ATTENDANT: None. PREOPERATIVE DIAGNOSES: 1. Painful retained internal [...] the office in the next 48-72 hours. /[id number] JESUS Cassidy/RILEY / / MODL /[id number] documented in this encounter Plan of Treatment Not on file documented as of this encounter Visit Diagnoses Not on filedocumented in this encounter
--- OUTSIDE RECORDS SUMMARY | 2025-06-26 11:18 | XMS_ITS | Referral Summary ---
Author Organization [employer] ([place], [place], [place], [place]) Address [address] [place] [address] Care Team Providers Care Sustainable Agriculture Specialist Name Role Phone Unavailable Primary Care [...]
--- OUTSIDE RECORDS SUMMARY | 2025-06-26 11:18 | XMS_ITS | Encounter Summary ---
Author Organization [employer] ([place], [place], [place], [place]) Address [address] [place] [address] Care Team Providers Care Edi Architect Name Role Phone Unavailable Primary Care Provider Alison jones Encounter Details Date Type Department Care Team (Late st Contact Info) Description 05/15/2022 Transcribed Document [facility] [place] Family Medicine Count includes the [facility] [address] ProviderEvangelista MD [address] [place] [address] Social History Tobacco Use Types Packs/Day Years Used Date Smoking Tobacco: Never Assessed Comments Unknown Sex and Gender Information Value Date Recorded Sex Assigned at Not on file Legal Sex Female 3:10 PM CDT Gender Identity Not on file Sexual Orientation Not on file documented as of this encounter Miscellaneous Notes * Cerner Conversion Note - Evangelista ProviderMD - 05/15/2022 8:37 AM CDT Patient: BEE [...]
--- OUTSIDE RECORDS SUMMARY | 2025-06-26 11:18 | XMS_ITS | Encounter Summary ---
Author Organization [employer] ([place], [place], [place], [place]) Address [address] [place] [address] Care Team Providers Care Colorer Name Role Phone Unavailable Primary Care Provider Unavailabl e Encounter Details Date Type Department Care Team (Late st Contact Info) Description 03/21/2020 Transcribed Document [facility] [place] [facility] [place] [address] ProviderEvangelista MD [address] [place], [place] [id number] Social History Tobacco Use Types Packs/Day Years Used Date Smoking Tobacco: Never Assessed Comments Unknown Sex and Gender Information Value Date Recorded Sex Assigned at Not on file Legal Sex Female 3:10 PM CDT Gender Identity Not on file Sexual Orientation Not on file documented as of this encounter Miscellaneous Notes * Cerner Conversion Note - Evangelista ProviderMD - 03/21/2020 11:36 AM CDT Patient: BEE [...] p.o. q h.s., Tramadol 50 mg q.i.d., [place] 10 mg q 6 h. She denies any side effects. She is in agreement with the above plan. We will see her back in follow-up in two months. Anahy Fraser M.D. BO/maurice documented in this encounter Plan of Treatment Not on file documented as of this encounter Visit Diagnoses Not on filedocumented in this encounter
--- OUTSIDE RECORDS SUMMARY | 2025-06-26 11:18 | XMS_ITS | Encounter Summary ---
Author Organization [employer] ([place], [place], [place], [place]) Address [address] [place] [address] Care Team Providers Care Soa Architect Name Role Phone Unavailable Primary Care Provider Unavailabl e Encounter Details Date Type Department Care Team (Late st Contact Info) Description 12/17/2019 Transcribed Document [facility] [place] Medicine [facility] [place] [address] ProviderEvangelista MD [address], [place] [phone] Social History Tobacco Use Types Packs/Day Years Used Date Smoking Tobacco: Never Assessed Comments Unknown Sex and Gender Information Value Date Recorded Sex Assigned at Not on file Legal Sex Female 3:10 PM CDT Gender Identity Not on file Sexual Orientation Not on file documented as of this encounter Miscellaneous Notes * Cerner Conversion Note - Evangelista ProviderMD - 12/17/2019 1:14 PM MORTICIAN HELPER Patient: BEE COLON Age: 49 Years Sex: [...] peripheral diabetic neuropathy. She has been utilizing [place] 10/325 mg four times daily dosing, Tramadol [...]
--- OUTSIDE RECORDS SUMMARY | 2025-06-26 11:18 | XMS_ITS | Encounter Summary ---
Author Organization [employer] ([place], [place], [place], [place]) Address [address] [place] [address] Care Team Providers Care Typing Element Machine Operator Name Role Phone Unavailable Primary Care Provider Unavailabl e Encounter Details Date Type Department Care Team (Late st Contact Info) Description 03/20/2022 Transcribed Document [facility] [place] Family Medicine [facility] [place] [address] ProviderEvangelista MD [address] [place] [address] Social History Tobacco Use Types [...] Evangelista ProviderMD - 03/20/2022 10:11 AM CDT [facility] [place] [address] BEE COLON :1970 Visit Time:03/20/2022 What [...] When 03/24/2022 02:00 PM EDT Where: [address] [place] [address]- Medications What How Much When Instructions Next [...] and water are not available, use hand cheese maker. ? Change your dressing as told by [...] fried or sweet foods. ? Take an qkhj-flr-ehzmkea or prescription medicine for constipation. ??? Do not use any products that contain nicotine or tobacco, such as cigarettes and e-cigarettes. These can delay bone healing after surgery. If you need help quitting, ask your health care provider. ??? Take mdxe-ruf-rmcaqns and prescription medicines only as told by [...] provider. Document Revised: 12/29/2019 Document Reviewed: 11/25/2018 [employer] Patient Education ?? 2020 [employer]. Outpatient Surgery, Adult, Care After This sheet [...] children on your own. Medicines ??? Take jpfi-bzc-zpbocbg and prescription medicines only as told by [...] keep your urine pale yellow. ? Take qmms-yfv-uzlveng or prescription medicines. ? Eat foods that [...] added (diluted fruit juice). ? Eat bland, lmbn-dt-qlqhxe foods in small amounts as you are [...] and water are not available, use hand cheese maker. ? Change your dressing as told by [...] drink clear fluids slowly and eat bland, smum-ix-vojqdf foods in small amounts. ??? Ask your health care provider what activities are safe for you. This information is not intended to replace advice given to you by your health care provider. Make sure you discuss any questions you have with your health care provider. Document Revised: 03/01/2021 Document Reviewed: 08/23/2020 [employer] Patient Education ?? 2020 [employer]. Emergency Awareness and Preventative Care STROKE is [...] Assistance with quitting is available by contacting 4-200-IXAF-NOW. This is a free resource providing counseling, [...] range between ( 0.0 and 7.0 ) [place] #: 1.05 K/uL -- Normal range between ( 0.16 and 1.00 ) Eos #: 0.30 x10(3)/uL -- Normal range between ( 0.00 and 0.80 ) [place] %: 8.5 % -- Normal range between [...] was given the opportunity to ask questions. Patient/Photographer Lithographic Name: Patient/Photographer Lithographic Signature: Relationship to Patient: Clinician/Hospital Photographer Lithographic Signature: Date: documented in this encounter Plan of Treatment Not on file documented as of this encounter Visit Diagnoses Not on filedocumented in this encounter
--- OUTSIDE RECORDS SUMMARY | 2025-06-26 11:18 | XMS_ITS | Clinical Summary ---
Author Organization Healthcare Address [address] [place] [address] Care Team Providers Care Medical Interpreter Name Role Phone Diego Lynch MD Primary Care Provider [phone] Family History 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 Relation Name Comments [...] Treatment Not on file Care Teams Medical Interpreter Relationship Specialty Start Date End Date Diego Lynch MD [address] [facility] [address] [place] [address] PCP - General 03/29/21
--- OUTSIDE RECORDS SUMMARY | 2025-06-26 11:18 | XMS_ITS | Encounter Summary ---
Author Organization [employer] ([place], [place], [place], [place]) Address [address] [place] [address] Care Team Providers Care Recording Studio Intern Name Role Phone Unavailable Primary Care Provider Unavailabl e Encounter Details Date Type Department Care Team (Late st Contact Info) Description 03/20/2022 Transcribed Document [facility] [place] [address] ProviderEvangelista MD [address] [place] [address] Social History Tobacco Use Types [...] ProviderMD - 03/20/2022 9:01 AM CDT [facility] Main OR IntraOp Summary Primary Physician: ANGELA GREEN DPM-POD Finalized Date/Time: 03/21/22 10:42:50 Pt. Name: BEE COLON/Sex: 1970 Female Med Rec #: [id number] Physician: ANGELA GREEN DPM-POD Financial #: [id number] Pt. Type: O Room/Bed: /6 Admit/Disch: 03/20/22 06:30:00 - 03/20/22 10:56:00 Institution: [facility] IntraOp Case Attendance Entry 1 Entry 2 Entry 3 Case Attendee ANGELA GREEN DPM-POD DODD, ANDREW, Non Emp Gordon, Mark, CONTRACT RECRUITER Student Nurse Automotive Fleet Supervisor Role Performed Surgeon/Proceduralist, Student CONTRACT RECRUITER/Nurse Automotive Fleet Supervisor First Time In 03/20/22 08:45:00 03/20/22 08:45:00 03/20/22 08:45:00 Time Out 03/20/22 09:54:00 03/20/22 09:54:00 03/20/22 09:54:00 Procedure Hardware Removal Leg Or Hardware Removal Leg Or Hardware Removal Leg Or Foot Foot Foot Other Attendee CONTRACT RECRUITER STUDENT Superficial Wound Closed By: Last Modified By: Milly Powers RN Versteeg, Beckie, RN Versteeg, Beckie, RN 03/20/22 09:54:47 03/20/22 09:54:47 03/20/22 09:54:47 Entry 4 Entry 5 Entry 6 Case Attendee JENN ENRIQUE MD[facility] Milly Powers, GRETA Role Performed Anesthesiologist of Scrub, First Intercell Connector Placer, First Record Time In 03/20/22 08:45:00 03/20/22 [...] Beckie, RN 03/20/22 09:54:47 03/20/22 09:54:47 [facility] IntraOp Case Attendance Audit 03/20/22 09:54:47 Central Supply Technician Supervisor: [id number] Modifier: [id number] 1 <+> Time Out 1 <*> Procedure [...] Time Out <+> 8 Procedure 03/20/22 09:14:11 Central Supply Technician Supervisor: [id number] Modifier: [id number] <+> 1 Procedure 2 <+> Time In [...] Procedure Hardware Removal Leg Or Foot [facility] IntraOp Case Times Entry 1 Patient In Room Time 03/20/22 08:45:00 Out Room Time 03/20/22 09:54:00 Anesthesia Start Time 03/20/22 08:45:00 Stop Time 03/20/22 09:54:00 Surgery / Procedure Times Start Time 03/20/22 09:01:00 Stop Time 03/20/22 09:50:00 Last Modified By: Milly Powers RN 03/20/22 09:54:23 [facility] IntraOp Case Times Audit 03/20/22 09:54:23 Central Supply Technician Supervisor: [id number] Modifier: [id number] <+> 1 Out Room Time <+> 1 Stop Time <+> 1 Stop Time [facility] IntraOp Cautery Entry 1 ESU Identification Cautery Type Monopolar ESU ID Number [id number] ID Type Hospital Number Cautery Settings Cut Setting 30 Coag Setting 30 ESU Grounding Pad Ground Pad Type Adult Grounding Pad Site Right thigh Grounding Pad Milly Powers RN Applied By Grounding Pad Site Warm, dry and intact Skin Condition Before Cautery Grounding Pad Site Unchanged Skin Condition After Cautery Last Modified By: Milly Powers RN 03/20/22 09:05:57 [facility] IntraOp Communication Entry 1 Communication To Family/Significant other Comment ATTAMPTED NO ANSWER Communication By Milly Powers RN Date and Time 03/20/22 09:06:00 Last Modified By: Milly Powers RN 03/20/22 09:07:11 [facility] IntraOp Counts Verification Entry 1 Procedure Hardware Removal Leg Or Foot Count Info Count Type Sponge, Sharps Counts Verification Baseline/pre-procedure Sequence Count Results Not Applicable Counts Performed By Count Performed By ZHANNA LU ST (Scrub) Count Performed By Milly Powers RN (RN) Last Modified By: Milly Powers RN 03/20/22 09:07:31 [facility] IntraOp Counts Final Entry 1 Procedure Hardware Removal Leg Or Foot Final Count Info Count Type Sponge, Sharps Counts Verification Skin Closure/end of Sequence procedure Count Results Correct, surgeon notified Counts Performed By Count Performed By ZHANNA LU ST (Scrub) Count Performed By Milly Powers RN (RN) Last Modified By: Milly Powers RN 03/20/22 09:36:01 [facility] IntraOp Counts Final Audit 03/20/22 09:36:01 Central Supply Technician Supervisor: [id number] Modifier: [id number] 1 <*> Procedure Hardware Removal Leg Or Foot 1 <+> Count Performed By (Scrub) 1 <+> Count Performed By (RN) [facility] IntraOp Cultures and Spec Summary Entry 1 Cultrures and Specimens Specimen Ordered: Yes Test(s) Routine/Path-Lab Requested/Final Disposition Last Modified By: Milly Powers RN 03/20/22 09:07:47 [facility] IntraOp Departure from OR Entry 1 Integumentary Assessment Integumentary WDL Assessment WDL Transfer/Handoff Transfer to Ambulatory unit, Phase II Handoff Method Phone call, Online nursing summary Post-op Transport Stretcher/Nanyney Via Patient Transport Iza Smiley RN Accompanied by Last Modified By: Milly Powers RN 03/20/22 09:55:30 [facility] IntraOp Departure from OR Audit 03/20/22 09:55:30 Central Supply Technician Supervisor: [id number] Modifier: [id number] <+> 1 Transfer to 03/20/22 09:54:59 Central Supply Technician Supervisor: [id number] Modifier: [id number] 1 <*> Patient Transport Accompanied by Milly Powers RN [facility] IntraOp Dressing and Packing Entry 1 Type Dressing Location OPSITE Wound Dressing Item 4x4's, Adaptic, Kerlix/Feng, Cristian, ABD dressing pad Applied By ANGELA GREEN DPM-POD Other Comments BETADINE SOLUTION ON STERILE FIELD Last Modified By: Milly Powers RN 03/20/22 09:08:34 [facility] IntraOp Explant Log Entry 1 Explant Log Description PLATE AND 8 SCREWS Explant Site RIGHT FOOT Removal Reason No longer needed Disposition Sent to pathology Last Modified By: Milly Powers RN 03/20/22 09:40:31 [facility] IntraOp Explant Log Audit 03/20/22 09:40:31 Central Supply Technician Supervisor: [id number] Modifier: [id number] 1 <*> Description PLATE AND SCREWS 03/20/22 09:32:54 Central Supply Technician Supervisor: [id number] Modifier: [id number] 1 <*> Description PLATE AND [facility] IntraOp Fire Risk Assessment Entry 1 Fire [...] By: Milly Powers RN 03/20/22 09:08:55 [facility] IntraOp General Case Dipper And Baker 1 Case Information OR OR 04 [facility] Case Level 1 Room Verified Yes Wound Class 1 - Clean Specialty Podiatry Anesthesia Type MAC ASA Class 3 Diagnosis Preop Diagnosis RETAINED HARDWARE RIGHT FOOT Postop Same As Preop No Postop Diagnosis SEE POST OP NOTE Wound Class Definitions Last Modified By: Milly Powers RN 03/20/22 09:11:08 [facility] IntraOp Implant Log Entry 1 Type Tissue Implant (Biologic) Implant Log Implant ALLOGRFT TENSIX 5CC DBM Identification [id number] Description Implant Quantity 1 Implant Site RIGHT FOOT Implant [id number] Identification Model Number Implant [id number] Identification Lot Number Implant Harmon Med Grp:Harmon Identification Med Tech Environmental Specialist Name: Implant [id number] Identification Catalog Number Implant Has an Yes Expiration Date Implant Expiration 07/16/23 Date Tissue Implant Graft Prep Per N/A Environmental Specialist Instructions: Last Modified By: Milly Powers RN 03/20/22 09:26:43 [facility] IntraOp Intraoperative Assessment Entry 1 Handoff Method [...] By: Milly Powers RN 03/20/22 09:11:25 [facility] IntraOp Intraoperative Equipment Entry 1 Type Equipment Equipment Equipment Waste Management System ID Number [id number] Setting ON Intraop Monitoring Antiembolic Devices Scopes Photo/Video Documentation Last Modified By: Milly Powers RN 03/20/22 09:11:47 [facility] IntraOp Medication Admin Entry 1 Entry 2 Medication/Irrigant Bupivicaine/Marcaine 1% LIDOCAINE/2ML 0.5% 30ml - [id number] PRESERVATIVE FREE - [id number] Combo Med List 1 - Combo Med 2 - Combo Med Time Administered 03/20/22 09:01:00 03/20/22 09:01:00 Route of Administration Dose Dose 10 10 Unit of Measure ml ml Volume Administered By ANGELA GREEN, CODYM-POD ANGELA GREEN DPM-POD Procedure Irrigation Irrigant Volume In Irrigant Volume Out Last Modified By: Milly Powers RN Versteeg, Beckie, RN 03/20/22 09:13:36 03/20/22 09:13:36 [facility] IntraOp Patient Positioning Entry 1 Procedure Hardware [...] ELEVATED ON PODIATRY WEDGE. Positioned By Milly Powers, GRETA, Rakan Knox, DELMA, ANGELA GREEN, DPM-POD, VAUGHN, ALLIE, Non Emp Student Nurse Automotive Fleet Supervisor Position Verified Positioning Yes Verified by Anesthesia Positioning Yes Verified by Surgeon Last Modified By: Milly Powers RN 03/20/22 09:14:08 [facility] IntraOp Sign In Entry 1 Patient, Site, [...] By: Milly Powers RN 03/20/22 09:14:22 [facility] IntraOp Sign Out Entry 1 RN Confirmation [...] By: Milly Powers RN 03/20/22 09:55:07 [facility] IntraOp Sign Out Audit 03/20/22 09:55:07 Central Supply Technician Supervisor: [id number] Modifier: [id number] <+> 1 RN Sign Out Signature Date/Time [facility] IntraOp Skin Prep Entry 1 Procedure Hardware Removal Leg Or Foot Prescribed Yes Pre-Surgical Prep Completed Prep Area RIGHT FOOT Intraop Prep Integumentary WDL Assessment WDL Prep Agents Betadine scrub, Betadine solution Prep by Milly Powers RN Hair Removal Last Modified By: Milly Powers RN 03/20/22 09:14:58 [facility] IntraOp Surgical Procedures Entry 1 Procedure Hardware Removal Leg Or Foot Additional REMOVAL OF HARDWARE ON Procedure RIGHT FOOT Description Primary Procedure Yes Primary Surgeon ANGELA GREEN DPM-POD Start 03/20/22 09:01:00 Stop 03/20/22 09:50:00 Anesthesia Type MAC Specialty Podiatry Wound Class 1 - Clean Last Modified By: Milly Powers RN 03/20/22 09:55:09 [facility] IntraOp Surgical Procedures Audit 03/20/22 09:55:09 Central Supply Technician Supervisor: [id number] Modifier: [id number] <+> 1 Stop 03/20/22 09:15:18 Central Supply Technician Supervisor: [id number] Modifier: [id number] 1 <*> Procedure Hardware Removal Leg Or Foot 1 <+> Wound Class 1 <*> Additional Procedure Description (REMOVAL OF HARDWARE ON RIGHT FOOT) [facility] IntraOP Time Out Entry 1 Procedure to [...] By: Milly Powers RN 03/20/22 09:18:23 [facility] IntraOP Time Out Audit 03/20/22 09:18:23 Central Supply Technician Supervisor: [id number] Modifier: [id number] 1 <+> Venous Thromboembolism Prophylaxis Required 1 <*> Procedure to be Performed Hardware Removal Leg Or Foot 03/20/22 09:16:55 Central Supply Technician Supervisor: [id number] Modifier: [id number] <+> 1 Beta Dmitriy Administered <+> 1 All activity suspended (unless life threatening emergency) <+> 1 Antibiotic Prophylaxis Administered Or In Progress Within the Last 60 Minutes <+> 1 Surgeon <+> 1 Anesthesia Provider <+> 1 Nursing Assures <+> 1 Time Out Pause Time <+> 1 Procedure to be Performed <+> 1 Team Verbally Confirms Information 03/20/22 09:16:22 Central Supply Technician Supervisor: [id number] Modifier: [id number] Entry 1 was deleted. Higher numbered entries [...] in location of procedure after prepped/draped [facility] IntraOp Tourniquet Entry 1 Type Pneumatic Serial/Unit Number [id number] Setting 250 mmHg Pheumatic Yes Tourniquet Checked Per Protocol Size 18 inches Placement Ankle, right Skin Protection - Yes Padded Under Cuff Applied By ANGELA GREEN DPM-POD Removed By ANGELA GREEN DPM-POD Times Start Time 03/20/22 09:01:00 Stop Time 03/20/22 09:48:00 Total Time 47 calculated manually (Mins) Last Modified By: Milly Powers RN 03/20/22 09:49:29 [facility] IntraOp Tourniquet Audit 03/20/22 09:49:29 Central Supply Technician Supervisor: [id number] Modifier: [id number] <+> 1 Total Time calculated manually (Mins) <+> 1 Stop Time Case Comments <None> Finalized By: ROBINSON WARREN Document Signatures Signed By: Milly Powers RN 03/20/22 09:55 ROBINSON WARREN 03/21/22 10:42 Unfinalized History Date/Time Username Reason for Unfinalizing Freetext Reason for Unfinalizing 03/21/22 10:41 WATRICH Correct Billing Electronically signed by Atul [facility] Conversion Database Management System Specialist Cerner at 03/05/2023 7:05 PM CDT documented in this encounter Plan of Treatment Not on file documented as of this encounter Visit Diagnoses Not on filedocumented in this encounter
--- OUTSIDE RECORDS SUMMARY | 2025-06-26 11:18 | XMS_ITS | Encounter Summary ---
Author Organization [employer] ([place], [place], [place], [place]) Address [address] [place] [address] Care Team Providers Care Mill Set Up Name Role Phone Unavailable Primary Care Provider Unavailabl e Encounter Details Date Type Department Care Team (Late st Contact Info) Description 05/15/2022 Transcribed Document [facility] [place] Family Medicine [facility] [place] [address] ProviderEvangelista MD [address], [place] [id number] Social History Tobacco Use Types Packs/Day Years [...] - 05/15/2022 8:00 AM CDT [facility] Main OR PostOp Summary Primary Physician: ANGELA GREEN DPM-POD Finalized Date/Time: 05/15/22 09:37:38 Pt. Name: BEE COLON/Sex: 1970 Female Med Rec #: [id number] Physician: ANGELA GREEN DPM-POD Financial #: [id number] Pt. Type: O Room/Bed: /12 Admit/Disch: 05/15/22 06:55:00 - Institution: [facility] Main OR PostOp Case Times Entry 1 In PACU II 05/15/22 08:29:00 Ready for PACU II 05/15/22 09:35:00 Discharge Discharge from PACU 05/15/22 09:35:00 II Last Modified By: DEMETRICE PEREZ, RN 05/15/22 09:37:34 [facility] Main OR PostOp Case Times Audit 05/15/22 09:37:34 Airport Baggage Screener: [email or web address] Modifier: [email or web address] <+> 1 Ready for PACU II Discharge <+> 1 Discharge from PACU II Finalized By: DEMETRICE PEREZ, RN Document Signatures Signed By: DEMETRICE PEREZ RN 05/15/22 09:37 Electronically signed by Atul [facility] Conversion Patient Portal Concierge Cerner at 03/05/2023 6:53 PM CDT documented in this encounter Plan of Treatment Not on file documented as of this encounter Visit Diagnoses Not on filedocumented in this encounter
--- OUTSIDE RECORDS SUMMARY | 2025-06-26 11:18 | XMS_ITS | Encounter Summary ---
Author Organization [employer] ([place], [place], [place], [place]) Address [address] [place] [address] Care Team Providers Care Economic Development Manager Name Role Phone Unavailable Primary Care Provider Unavailabl e Encounter Details Date Type Department Care Team (Late st Contact Info) Description 05/15/2022 Transcribed Document [facility] [place] Family Medicine [facility] [place] [address] ProviderEvangelista MD [address], [place] [id number] Social History Tobacco Use Types Packs/Day Years Used Date Smoking Tobacco: Never Assessed Comments Unknown Sex and Gender Information Value Date Recorded Sex Assigned at Not on file Legal Sex Female 3:10 PM CDT Gender Identity Not on file Sexual Orientation Not on file documented as of this encounter Miscellaneous Notes * Cerner Conversion Note - Evangelista ProviderMD - 05/15/2022 8:44 AM CDT DATE OF PROCEDURE: 05/15/2022 Location: [facility] Patient : 1970 SURGEON: Sam Hamlin DPM PHYSICAL METEOROLOGIST: None. PREOPERATIVE DIAGNOSES: 1. Osteomyelitis, right foot. [...] patient is at risk for further amputation. /[id number] JESUS Cassidy/RILEY / RADHA / MODL /[id number] documented in this encounter Plan of Treatment Not on file documented as of this encounter Visit Diagnoses Not on filedocumented in this encounter
--- OUTSIDE RECORDS SUMMARY | 2025-06-26 11:18 | XMS_ITS | Encounter Summary ---
Author Organization [employer] ([place], [place], [place], [place]) Address [address] [place] [address] Care Team Providers Care Plastic Cnc Machine Operator Name Role Phone Unavailable Primary Care Provider Unavailabl e Encounter Details Date Type Department Care Team (Late st Contact Info) Description 05/15/2022 Transcribed Document [facility] [place] Family Medicine [facility] [place] [address] ProviderEvangelista MD [address] [place] [address] Social History Tobacco Use Types [...] ProviderMD - 05/15/2022 8:00 AM CDT [facility] Main OR Preop Summary Primary Physician: ANGELA GREEN DPM-POD Finalized Date/Time: 05/15/22 13:36:27 Pt. Name: BEE COLON./Sex: 1970 Female Med Rec #: [id number] Physician: ANGELA GREEN DPM-POD Financial #: [id number] Pt. Type: O Room/Bed: 12 Admit/Disch: 05/15/22 06:55:00 - Institution: [facility] PreOp Case Times Entry 1 In Preop 05/15/22 05:45:00 Ready for Holding n/a Room Patient Ready for 05/15/22 07:15:00 Surgery Patient Out of Preop 05/15/22 07:38:00 Patient Out of n/a Holding Room Last Modified By: Juana Mclaughlin RN 05/15/22 11:19:58 [facility] PreOp Case Times Audit 05/15/22 13:36:25 Dull Coat Mill Operator: [id number] Modifier: [id number] <+> 1 In Preop 05/15/22 11:19:58 Dull Coat Mill Operator: [id number] Modifier: [id number] <+> 1 Patient Out of Preop Finalized By: Juana Mclaughlin, RN Document Signatures Signed By: Juana Mclaughlin RN 05/15/22 13:36 documented in this encounter Plan of Treatment Not on file documented as of this encounter Visit Diagnoses Not on filedocumented in this encounter
--- OUTSIDE RECORDS SUMMARY | 2025-06-26 11:18 | XMS_ITS | Encounter Summary ---
Author Organization [employer] ([place], [place], [place], [place]) Address [address] [place] [address] Care Team Providers Care Sausage Cooker Name Role Phone Unavailable Primary Care Provider Unavailabl e Encounter Details Date Type Department Care Team (Late st Contact Info) Description 05/12/2022 Transcribed Document [facility] [place] Family Medicine [facility] [place] [address] ProviderEvangelista MD [address] [place] [address] Social History Tobacco Use Types Packs/Day Years Used Date Smoking Tobacco: Never Assessed Comments Unknown Sex and Gender Information Value Date Recorded Sex Assigned at Not on file Legal Sex Female 3:10 PM CDT Gender Identity Not on file Sexual Orientation Not on file documented as of this encounter Miscellaneous Notes * Cerner Conversion Note - Evangelista ProviderMD - 05/12/2022 8:28 AM CDT PAT Adult [...] Source : Measured Height Entry Format : Treasure Height, Feet : 0 ft(Converted to: 0 cm, 0 Inch) Height, Inches : 66.5 Inch(Converted to: 5 ft 6 Inch, 168.91 cm) Clinical Height : 168.91 cm Weight Source : Standing scale Weight Entry Format : Treasure Clinical Dosing Weight : 131.82 kg Weight, Pounds : 290 lb Body Surface Area (BSA) : 2.36 m2 Body Mass Index : 46.2 kg/m2 (>HHI) Mccoll Body Weight : 60 kg ELY ARAYA RN - 05/13/2022 10:42 EDT Health Histories Smoking Status : Former smoker, quit more than 30 days ago Smokeless Tobacco Status : Never DEMETRICE WANG RN - 05/12/2022 8:44 EDT Implant/Device Type, X Ray Developing Machine Operator and Model : spinal cord [...] (Last Updated: 07/13/2014 10:57:18 EDT by BEE ORTIZ, GRETA) Former smoker, quit more than 30 days [...] (Last Updated: 03/17/2022 08:41:14 EDT by DEMETRICE WANG, GRETA) Former smoker, quit more than 30 days ago Smoking Status. Never Smokeless Tobacco Status. Years of Use: 20. Packs/Tins Daily: 1. Last Used: Quit 2014. (Last Updated: 05/12/2022 08:45:16 EDT by DEMETRICE WANG RN) Alcohol: Use [...] DEMETRICE WANG RN - 05/12/2022 8:28 EDT [place] Suicide Severity Rating Scale (C-SSRS) CSSRS Past [...] Bee Legal Guardian : No Support Person/Patient Community Development Director : Yes Support Person/Pt Rep Name : Nelida Colon - mother Support Person/Pt Rep Contact Information : [phone] Want Family/Rep/Phys Notified of Admit : No [...] Obtained From : Patient Primary Language : Faroese Preferred Communication Mode : Verbal Communication Barrier : None Technical Buyer Needed : No DEMETRICE WANG RN - [...]
--- OUTSIDE RECORDS SUMMARY | 2025-06-26 11:18 | XMS_ITS | Patient Health Record ---
Author Organization Jitendra Fritz MD Address [address] [place] [id number] Care Team Providers Care Derrick Worker Well Service Name Role Phone Jitendra Fritz Primary Care Provider Jitendra Fritz MD Unavailable [phone] Allergies Allergen (clinical drug ingredient) Drug/Non Drug Allergy documented on EMR Reaction Allergy Type Onset Date Status morphine Morphine Sulfate vomiting Drug Allergy Active codeine Codeine vomiting Drug Allergy Active Reason For Referral No Information Medications Medication SIG (Take, Route, Frequency, Duration) Notes Start Date End Date Status Saxenda 18 mg/3 ml 3 mg subcutaneous On ce a day; Duration: 90 days 07/09/2016 Active NovoFine 32G X 6 MM as directed subcutan eously daily for Saxenda injections; Duration: 90 days 07/09/2016 Active Ramipril 10 mg 1 capsule Orally Onc e a day; Duration: 90 days Active Aspirin 81 MG 1 tablet Orally Once a day Active Effient 10 mg 1 tablet Orally once a day; Duration: 90 days Active Cymbalta 60 MG 1 capsule Orally bid Active Saxenda 18 mg/3 ml start as directed subcutaneous 0.6 mg qdx1w then 1.2 mg qdx1w then 1.8 mg qdx1w then 2.4 mg qdx1w then 3.0 mg qdx1w; Duration: 30 days 07/09/2016 Active Lipitor 40 mg 1 tablet Orally Once a day; Duration: 90 days 03/26/2011 Active Nitro-Pro Active Furosemide 40 MG 1 tablet Orally Once a day; Duration: 90 days Active Tramadol 50 mg one tab orally every 4-6 hours prn pain Active Hecker 10-325 MG 1 tablet as needed O rally every 6 hrs Active Lyrica 225 MG 1 capsule Orally Twi ce a day 08/30/2010 Active Isosorbide Mononitrate ER 60 MG 1 tablet Orally Once a day; Duration: 90 days Active Lantus SoloStar 100 UNIT/ML 60 units Subcutaneous at bedtime Active Ativan 1 MG 1 tablet as needed O rally three times a day (tid) Active glyBURIDE 5 MG 1 tablet Orally bid Active Zetia 10 mg 1 tablet Orally Once a day; Duration: 90 days 07/09/2016 Active Social History Tobacco Use: Social History Observation Description Date Details (start date - stop date) Former Smoker NA - NA Smoking: Question Answer Notes Are you a: former smoker 2015 How long has it been since you last smoked? 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) Active confirmed Problem Hyperlipidemia (93764414) Hyperlipidemia, unspecified (E78.5) Active confirmed Problem Diabetic peripheral neuropathy associated with type 2 diabetes mellitus (9582091398885) Type 2 diabetes mellitus with diabetic neuropathy, unspecified (E11.40) Active confirmed Problem Mild major depression, single episode (69837570) Major depressive disorder, single episode, mild (F32.0) Active confirmed Problem Chronic pain syndrome (349244249) Chronic pain syndrome (G89.4) Active confirmed Problem Old myocardial infarction (3403098) Old myocardial infarction (I25.2) Active confirmed Problem Localized edema (7419482) Localized edema (R60.0) Active confirmed Plan Of Treatment Pending Test Test Name Order Date VENIPUNCTURE 07/02/2016 Urinalysis 07/02/2016 Future Test Test Name Order Date Urine Drug Screen 07/09/2016 Insurance Providers Payer Name Payer Address Payer Phone Subscriber Number Group Number Insured Name Patient Relationship to Insured Coverage Start Date Coverage End Date [place] [employer] PPO [address] [place] [address] [id number] Bee Colon Self - patient is the insured Medical (General) History 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 History ICD Code diabetes heart attack, 2015 fibromyalgia Surgical History Surgery Date(Month/Year) gallbladder tahbso 2003 right hand x2 left hand right knee x3 left knee bilateral shouler nuero stimulator Hospitalization History Reason Date(Month/Year) multiple dates for the above mentioned s urgeries [id number]
--- OUTSIDE RECORDS SUMMARY | 2025-06-26 11:18 | XMS_ITS | Encounter Summary ---
Author Organization [employer] ([place], [place], [place], [place]) Address [address] [place] [address] Care Team Providers Care Document Management Specialist Name Role Phone Unavailable Primary Care Provider Unavailabl e Encounter Details Date Type Department Care Team (Late st Contact Info) Description 03/20/2022 Transcribed Document [facility] [place] Family Medicine [facility] [address] ProviderEvangelista MD [address] [place] [address] Social History Tobacco Use Types [...] ProviderMD - 03/20/2022 9:01 AM CDT [facility] Main OR PostOp Summary Primary Physician: ANGELA GREEN DPM-POD Finalized Date/Time: 03/20/22 10:58:03 Pt. Name: BEE COLON/Sex: 1970 Female Med Rec #: [id number] Physician: ANGELA GREEN DPM-POD Financial #: [id number] Pt. Type: O Room/Bed: /6 Admit/Disch: 03/20/22 06:30:00 - Institution: [facility] Main OR PostOp Case Times Entry 1 In PACU II 03/20/22 09:56:00 Ready for PACU II 03/20/22 09:49:00 Discharge Discharge from PACU 03/20/22 10:56:00 II Last Modified By: Raji Matos, RN-PATIENT CARE BEDSIDE NON-EXEMPT 03/20/22 10:58:00 [facility] Main OR PostOp Case Times Audit 03/20/22 10:58:00 Machine Shop Inspector: [id number] Modifier: [id number] <+> 1 Discharge from PACU II 03/20/22 10:57:51 Machine Shop Inspector: [id number] Modifier: [id number] <+> 1 Ready for PACU II Discharge Finalized By: Raji Matos RN-PATIENT CARE BEDSIDE NON-EXEMPT Document Signatures Signed By: Raji Matos RN-PATIENT CARE BEDSIDE NON-EXEMPT 03/20/22 10:58 documented in this encounter Plan of Treatment Not on file documented as of this encounter Visit Diagnoses Not on filedocumented in this encounter
--- OUTSIDE RECORDS SUMMARY | 2025-06-26 11:18 | XMS_ITS | Encounter Summary ---
Author Organization [employer] ([place], [place], [place], [place]) Address [address] [place] [address] Care Team Providers Care Industrial Editor Name Role Phone Unavailable Primary Care Provider Unavailabl e Encounter Details Date Type Department Care Team (Late st Contact Info) Description 05/15/2022 Transcribed Document [facility] [place] Family Medicine [facility] [place] [address] ProviderEvangelista MD [address] [place] [address] Social History Tobacco Use Types [...] these instructions at home: Medicines ??? Take kkmc-fij-mluedvs and prescription medicines only as told by [...] keep your urine pale yellow. ? Take futl-deo-rceifvt or prescription medicines. ? Eat foods that [...] and water are not available, use hand financing analyst. ? Change your dressing as told [...] provider. Document Revised: 02/22/2020 Document Reviewed: 10/25/2019 [employer] Patient Education ? 2020 [employer] Procedures Outpatient Surgery, Adult, Care After [...] children on your own. Medicines ??? Take askv-jte-saccyqt and prescription medicines only as told by [...] keep your urine pale yellow. ? Take tclj-egt-lzlpjwg or prescription medicines. ? Eat foods that [...] added (diluted fruit juice). ? Eat bland, vcqn-le-kenncz foods in small amounts as you are [...] and water are not available, use hand financing analyst. ? Change your dressing as told [...] drink clear fluids slowly and eat bland, kwec-ds-uvhsga foods in small amounts. ??? Ask your health care provider what activities are safe for you. This information is not intended to replace advice given to you by your health care provider. Make sure you discuss any questions you have with your health care provider. Document Revised: 03/01/2021 Document Reviewed: 08/23/2020 [employer] Patient Education ? 2020 [employer] documented in this encounter Plan of Treatment Not on file documented as of this encounter Visit Diagnoses Not on filedocumented in this encounter
--- OUTSIDE RECORDS SUMMARY | 2025-06-26 11:19 | XMS_ITS | Encounter Summary ---
Author Organization [employer] ([place], [place], [place], [place]) Address [address] [place] [address] Care Team Providers Care Car Salesman Name Role Phone Unavailable Primary Care Provider Unavailabl e Encounter Details Date Type Department Care Team (Late st Contact Info) Description 05/15/2022 Transcribed Document [facility] [place] [facility] [place] [address] ProviderEvangelista MD [address] [place] [address] Social History Tobacco Use Types Packs/Day Years Used Date Smoking Tobacco: Never Assessed Comments Unknown Sex and Gender Information Value Date Recorded Sex Assigned at Not on file Legal Sex Female 3:10 PM CDT Gender Identity Not on file Sexual Orientation Not on file documented as of this encounter Miscellaneous Notes * Cerner Conversion Note - Evangelista ProviderMD - 05/15/2022 8:56 AM CDT [facility] [address] BEE COLON :1970 Visit Time:05/15/2022 What [...] PM EDT Where: [address] [place], [place] [id number]- [facility] (1) Medications What How Much When Instructions Next Dose isosorbide mononitrate (isosorbide mononitrate 60 mg oral tablet, extended release) 1 Tablet(s) Oral At Bedtime acetaminophen-hydrocodone ([place] 10 mg-325 mg oral tablet) 1 Tablet(s) [...] these instructions at home: Medicines ??? Take gqli-czf-trqqdnb and prescription medicines only as told by [...] keep your urine pale yellow. ? Take ypjc-tgb-cwgdjxs or prescription medicines. ? Eat foods that [...] and water are not available, use hand agricultural equipment sales engineer. ? Change your dressing as told by [...] provider. Document Revised: 02/22/2020 Document Reviewed: 10/25/2019 [employer] Patient Education ?? 2020 [employer] Outpatient Surgery, Adult, Care After This [...] children on your own. Medicines ??? Take ikmt-caf-atarodi and prescription medicines only as told by [...] keep your urine pale yellow. ? Take mkoa-uwj-crgrhim or prescription medicines. ? Eat foods that [...] added (diluted fruit juice). ? Eat bland, jkdx-gr-ozeiea foods in small amounts as you are [...] and water are not available, use hand agricultural equipment sales engineer. ? Change your dressing as told by [...] drink clear fluids slowly and eat bland, gdzi-jk-tjjggx foods in small amounts. ??? Ask your health care provider what activities are safe for you. This information is not intended to replace advice given to you by your health care provider. Make sure you discuss any questions you have with your health care provider. Document Revised: 03/01/2021 Document Reviewed: 08/23/2020 [employer] Patient Education ?? 2020 [employer] Emergency Awareness and Preventative Care STROKE [...] Assistance with quitting is available by contacting 6-153-PXAH-NOW. This is a free resource providing counseling, [...] was given the opportunity to ask questions. Patient/Chief Librarian Branch Or Department Name: Patient/Chief Librarian Branch Or Department Signature: Relationship to Patient: Clinician/Hospital Chief Librarian Branch Or Department Signature: Date: Electronically signed by Atul [facility] Conversion Cement Car Dumper Rashida at 03/05/2023 7:08 PM CDT documented in this encounter Plan of Treatment Not on file documented as of this encounter Visit Diagnoses Not on filedocumented in this encounter
--- OUTSIDE RECORDS SUMMARY | 2025-06-26 11:19 | XMS_ITS ---
Author Organization [facility] Care Team Providers Care Hide Dyer Name Role Phone Griselda Thrasher Unavailable Unavailable Alexsander Cordon Unavailable Unavailable Aniceto Huynh Unavailable Unavailable Olga Romero Unavailable Unavailable Allergies and adverse reactions Code CodeSystem Substance Reaction Severity StartDate Concern Status Oxycodone Unknown 04/28/2025 active 2670 RXNORM Codeine Mild 03/28/2024 active 06995 RXNORM Clopidogrel Urticaria (code - 109217869, SNOMED CT) Severe 03/28/2024 active 723 RXNORM Amoxicillin Unknown 03/28/2024 active Care Team Name Role Address Phone Organization Dates Aniceto Huynh PCP [facility] [address] [place], [address], [facility] (Office): : [facility] 05/11/2025 - 05/25/2025 Grsielda Thrasher [address] [place] [address], [address], [facility] (Office): : [facility] 05/11/2025 - 05/25/2025 Alexsander Cordon [address] [place] [address], [facility], [facility] (Office): : [facility] 05/11/2025 - 05/25/2025 [place] Heather [address] , [place], [address], [place] (Office): : [facility] 05/11/2025 - 05/25/2025 Goals Section Goals Description Status Target Date Advanced Directives will be honored. Active 04/26/2026 Medication benefits with no adverse effects thro [facility] next review Active 04/26/2026 Prevent/heal wounds and prev ent avoidable skin breakdown through next review Active 04/26/2026 Resident will be comfortable as measured by no symptoms of pain or discomfort through next review Active 04/26/2026 Resident will be free from a dverse side effects of antiplatelet through the next review Active 04/26/2026 Resident will be free from c omplications related to infection through the review date. Active 04/26/2026 Resident will have decreased risk for falls through nursing interventions through next review Active 04/26/2026 Resident will have toileting needs met by staff through nursing interventions daily Active 04/26/2026 Resident will have weight re duction per physician prescribed weight loss program through next review Active 04/26/2026 The resident will be able to return to the [facility]. Active 04/26/2026 The resident will be free fr om complications related to infection through the review date. Active 04/26/2026 The resident will be free of any discomfort or adverse side effects of diuretic therapy through the review date. Active 0 04/26/2026 The resident will comply with diet through next review Active 04/26/2026 The resident will have no co mplications related to SOB though the review date. Active 04/26/2026 The resident will have no co mplications related to diabetes through the review date. Active 04/26/2026 The resident will have no s/ sx of complications r/t fluid deficit through the review date. Active 04/26/2026 The resident will have no s/ sx of complications relate to fluid overload through the review date. Active 04/26/2026 Will achieve maximum functional mobility through next review Active 04/26/2026 Will achieve maximum functional mobility through next review Active 04/26/2026 Will attend/participate in a ctivities of choice through next review Active 04/26/2026 Will benefit from medication without adverse effects through next review Active 04/26/2026 Will express/exhibit satisfa ction with stay and care through next review Active 04/26/2026 Will have needs met by [facility] of staff as needed through next review Active 04/26/2026 Will have no cardiac complications through next review Active 04/26/2026 Will not exhibit an avoidable decline in mood th rough next review Active 04/26/2026 Immunizations Immunization Status Vaccine Details Vaccine Code CodeSystem Date Notes Influenza completed Influenza, high-dose, split virus, quadrivalent, injectable, preservative free 197 CVX created date: 05/01/2025 administer ed date: 08/16/2024 TB 1 Step Mantoux (PPD) completed tuberculin skin test; unspecified formulation lotNumber: [id number] expiry: 07/22/2026 Given 0.1 ml Right Forearm intradermally 98 CVX created date: 05/16/2025 consent date: 05/16/2025 administer ed date: 05/16/2025 Educated by on 05/16/2025 TB 2 Step Mantoux Skin Test completed tuberculin skin test; unspecified formulation lotNumber: [id number] expiry: 10/16/2025 Mfg: PAR Given 0.1 ml Right Forearm intradermally Step 2 of Multi-step with next step required 98 CVX created date: 04/05/2024 consent date: 04/04/2024 administer ed date: 04/05/2024 TB 2 Step Mantoux Skin Test completed tuberculin skin test; unspecified formulation lotNumber: [id number] expiry: 10/16/2025 Mfg: PAR Given 0.1 ml [...] HYDROcodone-A cetaminophen Oral Tablet 10-325 MG aborted 331069 RXNORM 1 tablet Oral as needed PRN [...] Dapagliflozin Propanediol Oral Tablet 10 MG active 145955 9 RXNORM 10 mg Oral one time a day Routine Give 10 mg by mouth one time a day for heart failur e 2024 - Pregabalin Oral Capsule 100 MG aborted 962994 RXNORM 100 mg Oral two times a day Routine Give 100 mg by mouth two times a day for rls relate d to MUSCLE WASTIN G AND ATROPH Y, NOT ELSEWH ERE CLASSI FIED, UNSPEC IFIED SITE (M62.5 0) 05/11 Spironolacton e Oral Tablet aborted 25 mg Oral one time a day Routine Give 25 mg by mouth one time a day for heart failur e 05/11 HumaLOG Injection Solution aborted 12 unit Subcuta [...] Ranolazine ER Oral Packet 1000 MG aborted 387897 3 RXNORM 1000 mg Oral two times a day Routine Give 1000 mg by mouth two times a day for cad 05/01 traZODone HCl Oral Tablet aborted 100 mg Oral every daycare provider Routine Give 100 mg by mouth every daycare provider for xochitl astudillo 05/01 MiraLax Oral Packet 17 GM aborted 627966 RXNORM 1 packet Oral one time a day Routine Give 1 packet by mouth one time a day for nivia pation 04/29 Insulin Glargine Subcutaneous Solution aborted 60 unit Subcuta neous two times a day Routine Inject 60 unit subcut aneous ly two times a day for diabet es 04/28 Ezetimibe Oral Tablet 10 MG active 228622 RXNORM 1 tablet Oral at bedtime Routine Give 1 tablet by mouth at bedtim e for hyperl ipidem ia relate d to HYPERL IPIDEM IA, UNSPEC IFIED (E78.5 ) 2024 - HumaLOG KwikPen Subcutaneous Solution Pen-injector 100 UNIT/ML aborted 905554 0 RXNORM 12 unit Subcuta neous before meals and at bedtime Routine Inject 12 unit subcut aneous ly before meals and at bedtim e for DM 04/28 DULoxetine HCl Oral Capsule Delayed Release Particles 60 MG aborted 456984 RXNORM 1 capsul e Oral two times a day Routine Give 1 capsul e by mouth two times a day for Xochitl astudillo relate d to MAJOR DEPRES SIVE DISORD ER, RECURR ENT, 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 ) 05/11 traMADol HCl Oral Tablet 50 MG active 381554 RXNORM 1 tablet Oral as needed PRN Give 1 tablet by mouth every 6 hours as needed for pain 2024 - Bactrim DS Oral Tablet 800-160 MG aborted 871402 RXNORM 1 tablet Oral two times a day Routine Give 1 tablet by mouth two times a day for infect ion 04/28 Ramipril Oral Capsule 5 MG aborted 314101 RXNORM 1 capsul e Oral one time a day Routine Give 1 capsul e by mouth one time a day for HTN 05/11 Xarelto Oral Tablet active 2.5 mg Oral two times a day Routine Give 2.5 mg by mouth two times a day relate d to 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 ARTERY WITHOU T ANGINA PECTOR IS (I25.1 0) 2024 - HumaLOG KwikPen Subcutaneous Solution Pen-injector 100 UNIT/ML aborted 791480 0 RXNORM n/a n/a Subcuta neous before meals and at bedtime Routine Inject as per partha guzmán scale: if 0 - 59 = 0 [...] 05/01 Bactrim DS Oral Tablet 800-160 MG complete d 892679 RXNORM 1 tablet Oral two times a day Routine Give 1 tablet by mouth two times a day for infect ion for 20 Admini strati ons 05/09 Metoprolol Tartrate Oral Tablet 100 MG active 538580 RXNORM 1 tablet Oral two times a day Routine Give 1 tablet by mouth two times a day for HTN relate d to 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 ARTERY WITHOU T ANGINA PECTOR IS (I25.1 0) 2024 - metroNIDAZOLE Oral Tablet complete d 500 mg Oral three times a day Routine Give 500 mg by mouth three times a day for infect ion for 18 Admini strati ons 05/05 Lantus SoloStar Subcutaneous Solution Pen-injector 100 UNIT/ML active 141174 RXNORM 60 unit Subcuta neous two times a day Routine Inject 60 unit subcut aneous ly two times a day for DM 2024 - Isosorbide Mononitrate Oral Tablet aborted 60 mg Oral one time a day Routine Give 60 mg by mouth one time a day relate d to ESSENT IAL (PRIMA RY) HYPERT ENSION (I10) 05/11 hydrOXYzine HCl Oral Tablet 25 MG aborted 629709 RXNORM 1 tablet Oral at bedtime Routine Give 1 tablet by mouth at bedtim e for anxiet y 05/01 levoFLOXacin Oral Tablet complete d 750 mg Oral one time a day Routine Give 750 mg by mouth one time a day for infect ion for 6 Admini strati ons 05/05 NovoLOG FlexPen Subcutaneous Solution Pen-injector 100 UNIT/ML active 158216 4 RXNORM 18 unit Subcuta neous three times a day Routine Inject 18 unit subcut aneous ly three times a day for DM 2024 - MiraLax Oral Packet 17 GM active 232945 RXNORM 17 gram Oral one time a day Routine Give 17 gram by mouth one time a day for consti pation 2024 - HYDROcodone-A cetaminophen Oral Tablet 10-325 MG aborted 340373 RXNORM 1 tablet Oral as needed PRN Give 1 tablet by mouth every 6 hours as needed for pain 04/30 Atorvastatin Calcium Oral Tablet active 40 mg Oral at bedtime Routine Give 40 mg by mouth at bedtim e for hyperl ipidem ia relate d to HYPERL IPIDEM IA, UNSPEC IFIED (E78.5 ) 2024 - hydrOXYzine HCl Oral Tablet 25 MG aborted 650397 RXNORM 1 tablet Oral at bedtime Routine Give 1 tablet by mouth at bedtim e for anxiet y 05/11 traZODone HCl Oral Tablet aborted 100 mg Oral at bedtime Routine Give 100 mg by mouth at bedtim e for depres baudilio 05/11 Ranolazine ER Oral Tablet Extended Release 12 Hour 1000 MG active 716844 RXNORM 1 tablet Oral two times a day Routine Give 1 tablet by mouth two times a day for CAD 2024 - metFORMIN HCl Oral Tablet aborted 500 mg Oral two times a day Routine Give 500 mg by mouth two times a day for diabet es relate d to 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, UNSPEC IFIED (E11.4 0) 05/25 [place] Miscellaneous 30G X 5 MM active 1 applic ation Subcuta neous as needed PRN Inject 1 applic ation subcut aneous ly as needed for Use to Reorde r 2024 - HYDROcodone-A cetaminophen Oral Tablet 10-325 MG complete d 600532 RXNORM 1 tablet Oral as needed PRN [...] 05/08 hydrOXYzine HCl Oral Tablet 25 MG complete d 527106 RXNORM 1 tablet Oral as needed PRN Give 1 tablet by mouth every 6 hours as needed for anxiet y for 14 Days 05/16 Mounjaro Subcutaneous Solution Auto-injector 2.5 MG/0.5ML aborted 273767 4 RXNORM 2.5 mg Subcuta neous one time a day Routine Inject 2.5 mg subcut aneous ly one time a day every 7 day(s) for Type 2 DM; morbid obesit y; HF for 4 Weeks 05/12 Multivitamin- Minerals Oral Tablet active 1 tablet Oral one time a day Routine Give 1 tablet by mouth one time a day for PMH/Lo w albumi n 2024 - Vitamin D (Ergocalcifer ol) Oral Capsule 13765 UNIT active 1 capsul e Oral one time a day Routine Give 1 capsul e by mouth one time a day every Sat for supple ment 2024 - Lasix Oral Tablet 40 MG active RXNORM 1 tablet Oral one time a day Routine Give 1 tablet by mouth one time a day for edema 2024 - Pregabalin Oral Capsule 200 MG active 364796 RXNORM 1 capsul e Oral two times a day Routine Give 1 capsul e by mouth two times a day for MUSCLE WASTIN G AND ATROPH Y, NOT ELSEWH ERE CLASSI FIED, UNSPEC 2024 - Nitroglycerin Sublingual Tablet Sublingual 0.4 MG active 670470 RXNORM 1 tablet Subling ual as needed PRN Give 1 tablet sublin gually every 5 minute s as needed for chest pain take 1 tab under tongue every 5 min prn for chest pain; max of 3 tabs in 15 min 2024 - Nystatin External Powder 299076 UNIT/GM active 794397 RXNORM n/a n/a Topical as needed PRN Apply to groin topica lly every 12 hours as needed for excori ation 2024 - Mounjaro Subcutaneous Solution Auto-injector 2.5 MG/0.5ML active 593391 4 RXNORM 2.5 mg Subcuta neous one time a day Routine Inject 2.5 mg subcut aneous ly one time a day every Sat for Type 2 DM; morbid obesit y; HF for 4 Weeks 06/10 Magnesium Oxide Oral Tablet 400 MG active 1 tablet Oral one time a day Routine Give 1 tablet by mouth one time a day for hypoma gnesem ia 2024 - Escitalopram Oxalate Oral Tablet 10 MG active 897272 RXNORM 1 tablet Oral one time a day Routine Give 1 tablet by mouth one time a day for depres baudilio 2024 - busPIRone HCl Oral Tablet 7.5 MG active 161065 RXNORM 1 tablet Oral two times a day Routine Give 1 tablet by mouth two times a day for anxiet y 2024 - Tylenol Extra Strength Oral Tablet 500 MG active 762081 RXNORM 2 tablet Oral as needed PRN Give 2 tablet by mouth every 6 hours as needed for pain/f ever 2024 - Docusate Sodium Oral Tablet 100 MG active 365450 9 RXNORM 1 tablet Oral two times a day Routine Give 1 tablet by mouth two times a day for Consti pation 2024 - metroNIDAZOLE Oral Tablet aborted 500 mg Oral three times a day Routine Give 500 mg by mouth three times a day for infect ion 04/28 levoFLOXacin Oral Tablet aborted 750 mg Oral one time a day Routine Give 750 mg by mouth one time a day for infect ion 04/28 DULoxetine HCl Oral Capsule Delayed Release Sprinkle 60 MG aborted 215487 RXNORM 60 mg Oral two times a day Routine Give 60 mg by mouth two times a day for depres baudilio 04/28 Atorvastatin Calcium Oral Tablet aborted 40 mg Oral every daycare provider Routine Give 40 mg by mouth every daycare provider for hyperl ipidem ia 04/30 Mental Status Section Date Assessment Total Score Description 05/13/2025 BIMS 15 cognitively int act CAM 0 No delirium ind icated PHQ-9 00 05/08/2025 CAM 0 No delirium ind icated Plan of Treatment Section Test Code Code System Name Date CMP-COMPREHENSIVE METABOLIC PNL 05/22/2025 Problems Problem # Description Date of onset Resolved Date Code CodeSystem Concern Status 1 CHRONIC KIDNEY DISEASE, STAGE 3 UNSPECIFIED 05/11/[address] active 2 HEART FAILURE, UNSPECIFIED 05/11/[address] active 3 UNSTEADINESS ON FEET 05/11/[address] active 4 ACQUIRED ABSENCE OF OTHER RIGHT TOE(S) 04/28/[address] active 5 ANXIETY DISORDER, UNSPECIFIED 04/28/[address] active 6 CHRONIC PAIN SYNDROME 04/28/[address] active 7 LOCAL INFECTION OF THE SKIN AND SUBCUTANEOUS TISSUE, UNSPECIFIED 04/28/[address] active 8 MORBID (SEVERE) OBESITY DUE TO EXCESS CALORIES 04/28/[address] active 9 MORBID (SEVERE) OBESITY WITH ALVEOLAR HYPOVENTILATION 04/28/[address] active 10 MUSCLE WASTING AND ATROPHY, NOT ELSEWHERE CLASSIFIED, MULTIPLE SITES 04/28/[address] active 11 OSTEOMYELITIS, UNSPECIFIED 04/28/[address] active 12 OTHER ABNORMALITIES OF GAIT AND MOBILITY 04/28/[address] active 13 TYPE 2 DIABETES MELLITUS WITH OTHER CIRCULATORY COMPLICATIONS 04/28/[address] active 14 UNSPECIFIED FRACTURE OF RIGHT TOE(S), SUBSEQUENT ENCOUNTER FOR FRACTURE WITH ROUTINE HEALING 04/28/[address] active 15 ACQUIRED ABSENCE OF LEFT LEG BELOW KNEE 03/28/[address] active 16 ATHEROSCLEROTIC HEART DISEASE OF [place] CORONARY ARTERY WITHOUT ANGINA PECTORIS 03/28/[address] active 17 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 AND ANKLE, LEFT LOWER LEG, SUBSEQUENT ENCOUNTER 03/28/20 24 04/28/[address] completed 18 CONSTIPATION, UNSPECIFIED 03/28/[address] active 19 ESSENTIAL (PRIMARY) HYPERTENSION 03/28/[address] active 20 HYPERLIPIDEMIA, UNSPECIFIED 03/28/[address] active 21 HALF-WAY (CURRENT) USE OF INSULIN 03/28/[address] active 22 MAJOR DEPRESSIVE DISORDER, RECURRENT, UNSPECIFIED 03/28/[address] active 23 MUSCLE WASTING AND ATROPHY, NOT ELSEWHERE CLASSIFIED, UNSPECIFIED SITE 03/28/20 24 04/28/[address] completed 24 MUSCLE WEAKNESS (GENERALIZED) 03/28/[address] active 25 OLD MYOCARDIAL INFARCTION 03/28/[address] active 26 PRESENCE OF CORONARY ANGIOPLASTY IMPLANT AND GRAFT 03/28/[address] active 27 RESPIRATORY DISORDERS IN DISEASES CLASSIFIED ELSEWHERE 03/28/20 24 04/28/[address] completed 28 TAKOTSUBO SYNDROME 03/28/[address] active 29 TYPE 2 DIABETES MELLITUS WITH DIABETIC NEUROPATHY, UNSPECIFIED 03/28/[address] active 30 UNSPECIFIED ABNORMALITIES OF GAIT AND MOBILITY 03/28/20 24 04/28/[address] completed 31 VITAMIN D DEFICIENCY, UNSPECIFIED 03/28/[address] [employer] [address] active Reason for Referral No Reasons for Referral Entered Diagnostic Results Result Code Code System Date Test Result Interpretation Reference Range Status Notes [id number] 1-0 LOINC 05/24 CMP-COMPRE HENSIVE METABOLIC PNL Completed Result for: BEE COLON ( 1970 , F) 3097-3 LOINC 05/24 BUN/CREATI NINE RATIO Value: 17 Units: Normal 6-25 Final 1759-0 LOINC 05/24 A/G RATIO Value: 1.3 Units: Normal 0.8-2.0 Final 2885-2 [facility] 05/24 PROTEIN, TOTAL Value: 6.2 Units: g/dL Normal 6.0-8.3 Final 175- [facility] 05/24 ALBUMIN Value: 3.5 Units: g/dL Normal 3.5-5.5 Final 6768-6 [facility] 05/24 ALKALINE PHOS Value: 62 Units: [IU]/L Normal 38-126 Final 192-8 [facility] 05/24 AST (SGOT) Value: 15 Units: [IU]/L Normal 14-36 Final 174- [facility] 05/24 ALT (SGPT) Value: 9 Units: [IU]/L Normal 7-52 Final 29511-17 [facility] 05/24 SODIUM Value: 141 Units: mEq/L Normal 136-145 Final 2823-01 [facility] 05/24 POTASSIUM Value: 4.2 Units: mEq/L Normal 3.5-5.3 Final 0 [facility] 05/24 CHLORIDE Value: 101 Units: mEq/L Normal 98-110 Final 2028-07 [facility] 05/24 CARBON DIOXIDE (CO2) Value: 28 Units: mEq/L Normal 21-33 Final 30940 [facility] 05/24 BUN (UREA NITROGEN) Value: 25 Units: mg/dL Normal 7-25 Final 2160-0 [facility] 05/24 CREATININE Value: 1.5 Units: mg/dL High 0.6-1.3 Final 2345-05 [facility] 05/24 GLUCOSE Value: 142 Units: mg/dL High Final GLUCOSE, FASTING 65-99 mg/dL GLUCOSE, NON-FASTI NG 65-125 mg/dL 23392-3 [facility] 05/24 CALCIUM Value: 9.4 Units: mg/dL Normal 8.6-10.3 Final 1974-12 [facility] 05/24 BILIRUBIN, TOTAL Value: 0.4 Units: mg/dL Normal 0.2-1.2 Final 71706-1 [facility] 05/24 GFR-THERESA N [place] Value: 43 Units: mL/min/{1.73 _m2} Low >60 Final 98185-8 [facility] 05/24 GFR-NON-AF [place] Value: 36 Units: mL/min/{1.73 _m2} Low >60 Final Stage of CKD eGFR (mL/min/1 .73 square meters) Stage 1 >/= 90 or > 90 Stage 2 60 - 89 Stage 3 30 - 59 Stage 4 15 - 29 Stage 5 </= 14 or < 15 GFR is reliable for adults 17 to 69 years with stable kidney function. [id number]- 6 [facility] 05/22 CMP-COMPRE HENSIVE METABOLIC PNL / TIQ-SPECIM EN HEMOLYZED Resulted Result for: ACOSTABEE ( 1970 , F) 32887-3 [facility] 05/22 GFR-THERESA N [place] Value: 51 Units: mL/min/{1.73 _m2} Low >60 Pending 21052-0 [facility] 05/22 GFR-NON-AF [place] Value: 42 Units: mL/min/{1.73 _m2} Low >60 Pending Stage of CKD eGFR (mL/min/1 .73 square meters) Stage 1 >/= 90 or > 90 Stage 2 60 - 89 Stage 3 30 - 59 Stage 4 15 - 29 Stage 5 </= 14 or < 15 GFR is reliable for adults 17 to 69 years with stable kidney function. 3094-0 [facility] 05/22 BUN (UREA NITROGEN) Value: 27 Units: mg/dL High 7-25 Pending 2160-0 [facility] 05/22 CREATININE Value: 1.3 Units: mg/dL Normal 0.6-1.3 Pending 1975-2 [facility] 05/22 BILIRUBIN, TOTAL Value: 0.4 Units: mg/dL Normal 0.2-1.2 Pending 2345-7 [facility] 05/22 GLUCOSE Value: 121 Units: mg/dL High Pending GLUCOSE, FASTING 65-99 mg/dL GLUCOSE, NON-FASTI NG 65-125 mg/dL 50005-1 [facility] 05/22 CALCIUM Value: 9.4 Units: mg/dL Normal 8.6-10.3 Pending 2951-2 [facility] 05/22 SODIUM Value: 143 Units: mEq/L Normal 136-145 Pending 2823-3 [facility] 05/22 POTASSIUM Value: 4.5 Units: mEq/L Normal 3.5-5.3 Pending 2074-0 [facility] 05/22 CHLORIDE Value: 103 Units: mEq/L Normal 98-110 Pending 9 [facility] 05/22 CARBON DIOXIDE (CO2) Value: 30 Units: mEq/L Normal 21-33 Pending 2885-2 [facility] 05/22 PROTEIN, TOTAL Value: 6.5 Units: g/dL Normal 6.0-8.3 Pending 1751-7 [facility] 05/22 ALBUMIN Value: 3.5 Units: g/dL Normal 3.5-5.5 Pending 6768-6 [facility] 05/22 ALKALINE PHOS Value: 70 Units: [IU]/L Normal 38-126 Pending 1920-8 [facility] 05/22 AST (SGOT) Value: 20 Units: [IU]/L Normal 14-36 Pending 1742-6 [facility] 05/22 ALT (SGPT) Value: 8 Units: [IU]/L Normal 7-52 Pending 3097-3 [facility] 05/22 BUN/CREATI NINE RATIO Value: 21 Units: Normal 6-25 Pending 1759-0 [facility] 05/22 A/G RATIO Value: 1.2 Units: Normal 0.8-2.0 Pending 123-999 99-9 [facility] 05/22 TEST NAME Value: CMP Units: Normal Final 123-999 99-9 [facility] 05/22 PROBLEM: Value: SPECIMEN HEMOLYZED Units: Normal Final 123-999 99-9 [facility] 05/22 RESOLUTION : Value: . Units: Normal Final 05/22/25 AT 5:44 PM NOTIFIED NURSE GREG [facility] 123-999 99-9 [facility] 05/22 RESOLUTION : Value: PHOTO TECHNICIAN COLLECTED SAMPLE Units: Normal Final 123-999 99-9 [facility] 05/22 LAB WILL REDRAW (DATE): Value: CALLED- [facility] Units: Normal Final [id number]- [id number] [facility] 05/08 BASIC MET PNL INCL GFR (BMP) / CBC W/DIFF Completed Result for: BEE COLON ( 1970 , F) 3097-3 [facility] 05/08 BUN/CREATI NINE RATIO Value: 14 Units: Normal 6-25 Final 123-999 99-9 [facility] 05/08 ANISOCYTOS IS Value: 1+ Units: Abnormal NEGATIVE Final 82217-0 [facility] 05/08 MCV Value: 86.9 Units: fL Normal 80.0-100.0 Final 71409-8 [facility] 05/08 MPV Value: 9.3 Units: fL Normal 6.5-12.0 Final 718-7 [facility] 05/08 HEMOGLOBIN Value: 11.7 Units: g/dL Low 12.0-16.0 Final 4544-3 [facility] 05/08 HEMATOCRIT Value: 36.7 Units: % Normal 36.0-48.0 Final 788-0 [facility] 05/08 RDW Value: 16.8 Units: % High 11.0-16.0 Final 770-8 [facility] 05/08 NEUTROPHIL S Value: 58.6 Units: % Normal 40.0-80.0 Final 736-9 [facility] 05/08 LYMPHS Value: 27.4 Units: % Normal 13.0-48.0 Final 47697-3 [facility] 05/08 MONOCYTES Value: 9.8 Units: % Normal 2.0-12.0 Final 713-8 [facility] 05/08 EOS Value: 3.5 Units: % Normal 0.0-8.0 Final 706-2 [facility] 05/08 BASO Value: 0.7 Units: % Normal 0.0-2.0 Final 777-3 [facility] 05/08 PLATELET Value: 237 Units: K/cmm Normal 150-450 Final 751-8 [facility] 05/08 NEUTS (ABSOLUTE) Value: 5.50 Units: K/uL Normal 1.50-7.60 Final 731-0 [facility] 05/08 LYMPHS (ABSOLUTE) Value: 2.60 Units: K/uL Normal 0.90-5.50 Final 742-7 [facility] 05/08 MONOCYTES (ABSOLUTE) Value: 0.90 Units: K/uL Normal 0.15-1.10 Final 711-2 [facility] 05/08 EOS (ABSOLUTE) Value: 0.30 Units: K/uL Normal 0.00-0.80 Final 704-7 [facility] 05/08 BASO (ABSOLUTE) Value: 0.10 Units: K/uL Normal 0.00-0.30 Final 789-8 [facility] 05/08 RBC Value: 4.23 Units: 10*3/mm3 Normal 3.90-5.40 Final 2951-2 [facility] 05/08 SODIUM Value: 137 Units: mEq/L Normal 136-145 Final 2823-3 [facility] 05/08 POTASSIUM Value: 6.2 Units: mEq/L Critical high 3.5-5.3 Final Verified 2074-0 [facility] 05/08 CHLORIDE Value: 104 Units: mEq/L Normal 98-110 Final 2027-9 [facility] 05/08 CARBON DIOXIDE (CO2) Value: 24 Units: mEq/L Normal 21-33 Final 3094-0 [facility] 05/08 BUN (UREA NITROGEN) Value: 23 Units: mg/dL Normal 7-25 Final 2160-0 [facility] 05/08 CREATININE Value: 1.7 Units: mg/dL High 0.6-1.3 Final 44442-6 [facility] 05/08 CALCIUM Value: 9.2 Units: mg/dL Normal 8.6-10.3 Final 2345-7 [facility] 05/08 GLUCOSE Value: 96 Units: mg/dL Normal Final GLUCOSE, FASTING 65-99 mg/dL GLUCOSE, NON-FASTI NG 65-125 mg/dL 6690-2 [facility] 05/08 WBC Value: 9.3 Units: K/cmm Normal 4.5-10.8 Final 31286-0 [facility] 05/08 GFR-THERESA N [place] Value: 38 Units: mL/min/{1.73 _m2} Low >60 Final 98445-4 [facility] 05/08 GFR-NON-AF [place] Value: 31 Units: mL/min/{1.73 _m2} Low >60 Final Stage of CKD eGFR (mL/min/1 .73 square meters) Stage 1 >/= 90 or > 90 Stage 2 60 - 89 Stage 3 30 - 59 Stage 4 15 - 29 Stage 5 </= 14 or < 15 GFR is reliable for adults 17 to 69 years with stable kidney function. 771-6 [facility] 05/08 NUCLEATED RBC Value: 0.1 Units: {RBC}/100{WB C} Normal <1.0 Final 785-6 [facility] 05/08 MCH Value: 27.6 Units: pg Normal 26.0-35.0 Final 786-4 [facility] 05/08 MCHC Value: 31.7 Units: g/dL Normal 31.0-36.5 Final OX3071- 6 [facility] 05/08 UA W/CULTURE IF INDICATED Completed Result for: BEE COLON ( 1970 , F) 39379-4 [facility] 05/08 RBC,UR Value: 0-2 Units: /HPF Normal <6 Final 5821-4 [facility] 05/08 WBC,UR Value: 3-5 Units: /HPF Normal <6 Final 5778-6 [facility] 05/08 COLOR Value: LIGHT YELLOW Units: Normal YELLOW Final 89725-5 [facility] 05/08 CLARITY Value: CLEAR Units: Normal CLEAR Final 2349-9 [facility] 05/08 GLUCOSE,UR Value: 3+ Units: Abnormal NORMAL Final 1977-8 [facility] 05/08 BILIRUBIN, UR Value: NEGATIVE Units: Normal NEGATIVE Final 46077-6 [facility] 05/08 KETONES,UR Value: NEGATIVE Units: Normal NEGATIVE Final 2965-2 [facility] 05/08 SPECIFIC GRAVITY Value: 1.014 Units: Normal 1.001-1.03 0 Final 5794-3 [facility] 05/08 BLOOD,UR Value: NEGATIVE Units: Normal NEGATIVE Final 2756-5 [facility] 05/08 PH, URINE Value: 7.5 Units: Normal 5.0-8.5 Final 53867-8 [facility] 05/08 PROTEIN,UR Value: NEGATIVE Units: Normal NEGATIVE Final 5818-0 [facility] 05/08 UROBILINOG EN,UR Value: NEGATIVE Units: Normal NEGATIVE Final 5802-4 [facility] 05/08 NITRITE,UR Value: NEGATIVE Units: Normal NEGATIVE Final 5799-2 [facility] 05/08 LEUKOCYTES ,UR Value: 1+ Units: Abnormal NEGATIVE Final 76632-8 [facility] 05/08 EPITHELIAL CELL Value: FEW Units: Abnormal NEGATIVE Final 69089-4 [facility] 05/08 BACTERIA,U R Value: FEW Units: Abnormal NEGATIVE Final 97867-1 [facility] 05/08 HYALINE CASTS Value: FEW Units: Abnormal NEGATIVE Final 8246-1 [facility] 05/08 AMORPHOUS Value: PRESENT Units: Abnormal ABSENT Final 123-999 99-9 [facility] 05/08 UA TO CX TRIGGER Value: NO CULTURE INDICATED Units: Normal Final AM3056- 6 [facility] 05/03 CMP-COMPRE HENSIVE METABOLIC PNL / LIPID PANEL w/calc LDL / GLYCO-HGBA 1C / CBC W/DIFF / VITAMIN B12 / VITAMIN D 25-OH TOTAL Completed Result for: BEE COLON ( 1970 , F) 1759-0 [facility] 05/03 A/G RATIO Value: 1.1 Units: Normal 0.8-2.0 Final 3097-3 [facility] 05/03 BUN/CREATI NINE RATIO Value: 13 Units: Normal 6-25 Final 53026-3 [facility] 05/03 LDLc/HDL RATIO Value: 0.5 Units: Normal <4:1 Final 123-999 99-9 [facility] 05/03 ANISOCYTOS IS Value: 1+ Units: Abnormal NEGATIVE Final 770-8 [facility] 05/03 NEUTROPHIL S Value: 54.0 Units: % Normal 40.0-80.0 Final 736-9 [facility] 05/03 LYMPHS Value: 29.1 Units: % Normal 13.0-48.0 Final 41852-5 [facility] 05/03 MONOCYTES Value: 11.5 Units: % Normal 2.0-12.0 Final 713-8 [facility] 05/03 EOS Value: 5.0 Units: % Normal 0.0-8.0 Final 706-2 [facility] 05/03 BASO Value: 0.4 Units: % Normal 0.0-2.0 Final 788-0 [facility] 05/03 RDW Value: 16.6 Units: % High 11.0-16.0 Final 4548-4 [facility] 05/03 GLYCOHEMOG LOBIN-HGBA 1C Value: 12.5 Units: % High 4.1-6.1 Final 4544-3 [facility] 05/03 HEMATOCRIT Value: 34.2 Units: % Low 36.0-48.0 Final 718-7 [facility] 05/03 HEMOGLOBIN Value: 11.1 Units: g/dL Low 12.0-16.0 Final 2885-2 [facility] 05/03 PROTEIN, TOTAL Value: 5.2 Units: g/dL Low 6.0-8.3 Final 1751-7 [facility] 05/03 ALBUMIN Value: 2.7 Units: g/dL Low 3.5-5.5 Final 92215-7 [facility] 05/03 MCV Value: 85.6 Units: fL Normal 80.0-100.0 Final 70701-3 [facility] 05/03 MPV Value: 9.5 Units: fL Normal 6.5-12.0 Final 786-4 [facility] 05/03 MCHC Value: 32.4 Units: g/dL Normal 31.0-36.5 Final 6768-6 [facility] 05/03 ALKALINE PHOS Value: 64 Units: [IU]/L Normal 38-126 Final 1920-8 [facility] 05/03 AST (SGOT) Value: 18 Units: [IU]/L Normal 14-36 Final 1742-6 [facility] 05/03 ALT (SGPT) Value: 12 Units: [IU]/L Normal 7-52 Final 6690-2 [facility] 05/03 WBC Value: 7.9 Units: K/cmm Normal 4.5-10.8 Final 751-8 [facility] 05/03 NEUTS (ABSOLUTE) Value: 4.30 Units: K/uL Normal 1.50-7.60 Final 731-0 [facility] 05/03 LYMPHS (ABSOLUTE) Value: 2.30 Units: K/uL Normal 0.90-5.50 Final 742-7 [facility] 05/03 MONOCYTES (ABSOLUTE) Value: 0.90 Units: K/uL Normal 0.15-1.10 Final 711-2 [facility] 05/03 EOS (ABSOLUTE) Value: 0.40 Units: K/uL Normal 0.00-0.80 Final 789-8 [facility] 05/03 RBC Value: 4.00 Units: 10*3/mm3 Normal 3.90-5.40 Final 2951-2 [facility] 05/03 SODIUM Value: 140 Units: mEq/L Normal 136-145 Final 2823-01 [facility] 05/03 POTASSIUM Value: 4.5 Units: mEq/L Normal 3.5-5.3 Final [facility] 05/03 CHLORIDE Value: 105 Units: mEq/L Normal 98-110 Final 2028-07 [facility] 05/03 CARBON DIOXIDE (CO2) Value: 25 Units: mEq/L Normal 21-33 Final 2132-07 [facility] 05/03 VITAMIN B12 Value: 292 Units: pg/mL Normal 211-911 Final 7711-21 [facility] 05/03 NUCLEATED RBC Value: 0.3 Units: {RBC}/100{WB C} Normal <1.0 Final [facility] 05/03 MCH Value: 27.8 Units: pg Normal 26.0-35.0 Final 777 [facility] 05/03 PLATELET Value: 192 Units: K/cmm Normal 150-450 Final 46362-1 [facility] 05/03 VITAMIN D 25-OH TOTAL Value: 9 Units: ng/mL Low 30-100 Final 3094-0 [facility] 05/03 BUN (UREA NITROGEN) Value: 17 Units: mg/dL Normal 7-25 Final 0 [facility] 05/03 CREATININE Value: 1.3 Units: mg/dL Normal 0.6-1.3 Final 1974-12 [facility] 05/03 BILIRUBIN, TOTAL Value: 0.2 Units: mg/dL Normal 0.2-1.2 Final 2093-01 [facility] 05/03 CHOLESTERO L Value: 81 Units: mg/dL Normal <200 Final 2571-06 [facility] 05/03 TRIGLYCERI DE Value: 182 Units: mg/dL High <150 Final 2085-07 [facility] 05/03 HDL Value: 29 Units: mg/dL Normal >50 Final 03307-0 [facility] 05/03 LDL CALCULATED Value: 16 Units: mg/dL Normal <100 Final 59605-5 [facility] 05/03 eAG (Mean Glucose) Value: 312 Units: mg/dL High 70-120 Final 88620-2 [facility] 05/03 CALCIUM Value: 8.3 Units: mg/dL Low 8.6-10.3 Final 1-7 [facility] 05/03 VLDLc Value: 36 Units: mg/dL High 5-30 Final 2345-7 [facility] 05/03 GLUCOSE Value: 195 Units: mg/dL High Final GLUCOSE, FASTING 65-99 mg/dL GLUCOSE, NON-FASTI NG 65-125 mg/dL 94342-4 [facility] 05/03 GFR-THERESA N [place] Value: 51 Units: mL/min/{1.73 _m2} Low >60 Final 96946-9 [facility] 05/03 GFR-NON-AF [place]ICAN [place] Value: 42 Units: mL/min/{1.73 _m2} Low >60 Final Stage of CKD eGFR (mL/min/1 .73 square meters) Stage 1 >/= 90 or > 90 Stage 2 60 - 89 Stage 3 30 - 59 Stage 4 15 - 29 Stage 5 </= 14 or < 15 GFR is reliable for adults 17 to 69 years with stable kidney function. Test Code Code System Name Date CMP-COMPREHENSIVE METABOLIC PNL 05/24/2025 CMP-COMPREHENSIVE METABOLIC PNL 05/22/2025 TIQ-SPECIMEN HEMOLYZED 05/22 BASIC MET PNL INCL GFR (BMP) 05/08/2025 CBC W/DIFF 05/08/2025 BASIC MET PNL INCL GFR (BMP) 05/08/2025 CBC W/DIFF 05/08/2025 BASIC MET PNL INCL GFR (BMP) 05/08/2025 CBC W/DIFF 05/08/2025 UA W/CULTURE IF INDICATED CMP-COMPREHENSIVE METABOLIC PNL 05/03/2025 LIPID PANEL w/calc LDL 05/03 CBC W/DIFF 05/03/2025 GLYCO-HGBA1C 05/03/2025 CBC W/DIFF 05/03/2025 CMP-COMPREHENSIVE METABOLIC PNL 05/03/2025 CBC W/DIFF 05/03/2025 CMP-COMPREHENSIVE METABOLIC PNL 05/03/2025 CBC W/DIFF 05/03/2025 CMP-COMPREHENSIVE METABOLIC PNL 05/03/2025 05/03/2025 CBC W/DIFF 05/03/2025 05/03/2025 CMP-COMPREHENSIVE METABOLIC PNL 05/03/2025 LIPID PANEL w/calc LDL 05/03 GLYCO-HGBA1C 05/03/2025 CMP-COMPREHENSIVE METABOLIC PNL 05/03/2025 LIPID PANEL w/calc LDL 05/03 CMP-COMPREHENSIVE METABOLIC PNL 05/03/2025 Social History Social History Observation Description Start Date End Date Code Code System Current Smoking Status Tobacco smoking consumption unknown [id number] SNOMED CT Sex Assigned At Female 1970 85358-5 [facility] Gender Identity Vital Signs Code Code System Vitals Name Values and Units Timing Information 2339-0 [facility] Blood Sugar Qabsx=427.0 Units=mg/dL 05/25/2025 66300-2 [facility] Pain Level Value=0.0 05/25/2025 8462-4 [facility] Blood Pressure-Diastolic Value=64 Un its=mmHg 05/25/2025 8480-6 [facility] Blood Pressure-Systolic Jjmnm=633 Un its=mmHg 05/25/2025 8867-4 [facility] Heart rate Value=67.0 Units=/min 08/2025 9279-1 [facility] Respiratory Rate Value=18.0 Units=/m in 05/24/2025 8310-5 [facility] Body Temperature Value=97.8 Units= F 05/24/2025 59050-1 [facility] O2 % dC Oximetry Value=95.0 Units= % 05/24/2025 29901-7 [facility] Weight Giogn=064.4 Units=Lbs 03/2025 8302-2 [facility] Height Value=66.0 Units=Inches 04/28/2025
--- OUTSIDE RECORDS SUMMARY | 2025-06-26 11:19 | XMS_ITS | Encounter Summary ---
Author Organization [id number] ([place], [place], [place], [place]) Address [address] [place] [address] Care Team Providers Care Electrical Test Technician Name Role Phone Unavailable Primary Care Provider Unavailabl e Encounter Details Date Type Department Care Team (Late st Contact Info) Description 07/11/[address] [facility] [place] [facility] [place] [address] ProviderEvangelista MD [address] [place] [address] Social History Tobacco Use Types [...] [facility] Main OR IntraOp Summary Primary Physician: MANI THOMAS MD-SUR Finalized Date/Time: 07/14/21 16:36:09 Pt. Name: BEE COLON./Sex: 1970 Female Med Rec #: [id number] Physician: MANI THOMAS MD-SUR Financial #: [id number] Pt. Type: O Room/Bed: Admit/Disch: 07/11/21 08:06:00 - 07/11/21 12:25:00 Institution: [facility] IntraOp Case Attendance Entry 1 Entry 2 Entry 3 Case Attendee MANI THOMAS MD-SUR BOWEN, JON B, MD-Purvi Quick CRNA Role Performed Surgeon/Proceduralist, Anesthesiologist of OPTOMETRIST ASSISTANT/Nurse Assembler Mechanical Ordnance First Record Time In 07/11/21 10:47:00 07/11/21 10:47:00 07/11/21 10:47:00 Time Out 07/11/21 11:25:00 07/11/21 11:25:00 07/11/21 11:25:00 Procedure Wound Debridement Lower Wound Debridement Lower Wound Debridement Lower Extremity Extremity Extremity Other Attendee EQUIPMENT MAINT TECH Superficial Wound Closed By: Last Modified By: Zee Delgadillo RN Napier, Elizabeth A, Zee Gtz, GRETA 07/11/21 11:30:29 07/11/21 11:30:29 07/11/21 11:30:29 Entry 4 Entry 5 Entry 6 Case Attendee ELAINE BRUCE ST Zhurko, Timofey, ScrZee Diaz RN Tech Role Performed Scrub, First Scrub, First Stable Helper, First Time In 07/11/21 10:47:00 07/11/21 10:47:00 07/11/21 10:47:00 Time Out 07/11/21 11:25:00 07/11/21 11:25:00 07/11/21 11:25:00 Procedure Wound Debridement Lower Wound Debridement Lower Wound Debridement Lower Extremity Extremity Extremity Other Attendee ORIENTEE Superficial Wound Closed By: Last Modified By: Zee Delgadillo RN Napier, Elizabeth A, Zee Gtz, GRETA 07/11/21 11:30:29 07/11/21 11:30:29 07/11/21 11:30:29 Entry 7 Entry 8 Case Attendee SINA JOHNSON, RN Sherwin Gage RN Role Performed Stable Helper, Second Stable Helper, Third Time In 07/11/21 10:47:00 07/11/21 10:47:00 Time Out 07/11/21 11:25:00 07/11/21 11:25:00 Procedure Wound Debridement Lower Wound Debridement Lower Extremity Extremity Other Attendee ORIENTATION Superficial Wound Closed By: Last Modified By: Zee Delgadillo RN Napier, Elizabeth A, RN 07/11/21 11:30:29 07/11/21 11:30:29 [facility] IntraOp Case Attendance Audit 07/11/21 11:30:29 Tuber Machine Cutter: JAIRO Modifier: EANAPIER 1 <+> Time Out 1 [...] Procedure Wound Debridement Lower Extremity 07/11/21 11:08:19 Tuber Machine Cutter: JAIRO Modifier: EANAPIER <+> 6 Case Attendee <+> 6 Role Performed <+> 6 Procedure <+> 7 Case Attendee <+> 7 Role Performed <+> 7 Procedure <+> 8 Case Attendee <+> 8 Role Performed <+> 8 Procedure <+> 8 Other Attendee 07/11/21 10:51:13 Tuber Machine Cutter: JAIRO Modifier: EANAPIER 5 <+> Case Attendee 5 <*> Procedure Wound Debridement Lower Extremity 07/11/21 10:49:29 Tuber Machine Cutter: KURT Modifier: EANAPIER 1 <+> Time In 1 <*> Procedure Wound Debridement Lower Extremity 2 <+> Time In 2 <*> Procedure Wound Debridement Lower Extremity 3 <+> Time In 3 <*> Procedure Wound Debridement Lower Extremity 4 <+> Time In 4 <*> Procedure Wound Debridement Lower Extremity 5 <+> Time In 5 <*> Procedure Wound Debridement Lower Extremity [facility] IntraOp Case Times Entry 1 Patient In Room Time 07/11/21 10:47:00 Out Room Time 07/11/21 11:25:00 Anesthesia Start Time 07/11/21 10:47:00 Stop Time 07/11/21 11:25:00 Surgery / Procedure Times Start Time 07/11/21 11:07:00 Stop Time 07/11/21 11:18:00 Last Modified By: Zee Delgadillo RN 07/11/21 11:30:15 [facility] IntraOp Case Times Audit 07/11/21 11:30:15 Tuber Machine Cutter: EANAPIER Modifier: EANAPIER <+> 1 Out Room Time <+> 1 Stop Time 07/11/21 11:18:34 Tuber Machine Cutter: EANAPIER Modifier: EANAPIER <+> 1 Stop Time 07/11/21 11:06:32 Tuber Machine Cutter: EANAPIER Modifier: EANAPIER <+> 1 Start Time [facility] IntraOp Cautery Entry 1 ESU Identification Cautery Type Monopolar ESU ID Number [id number] ID Type Hospital Number Cautery Settings Cut Setting 35 Coag Setting 35 ESU Grounding Pad Ground Pad Type Adult Grounding Pad Site Right thigh Grounding Pad Site Warm, dry and intact Skin Condition Before Cautery Last Modified By: Zee Delgadillo RN 07/11/21 11:06:28 [facility] IntraOp Communication Entry 1 Communication To Other Comment POST OP Communication By SINA JOHNSON RN Date and Time 07/11/21 11:16:00 Last Modified By: Zee Delgadillo RN 07/11/21 11:16:29 [facility] IntraOp Counts Verification Entry 1 Procedure Wound Debridement Lower Extremity Count Info Count Type Sponge, Sharps, Miscellaneous Counts Verification Baseline/pre-procedure Sequence Count Results Not Applicable Counts Performed By Count Performed By ELAINE BRUCE ST (Scrub) Count Performed By SINA JOHNSON RN (RN) Last Modified By: Zee Delgadillo RN 07/11/21 11:09:24 [facility] IntraOp Counts Verification Audit 07/11/21 11:09:24 Tuber Machine Cutter: EANAPIER Modifier: EANAPIER 1 <*> Procedure Wound Debridement Lower Extremity 1 <+> Count Performed By (RN) [facility] IntraOp Counts Final Entry 1 Procedure Wound Debridement Lower Extremity Final Count Info Count Type Sponge, Sharps, Miscellaneous Counts Verification Skin Closure/end of Sequence procedure Count Results Correct, surgeon notified Counts Performed By Count Performed By ELAINE BRUCE ST (Scrub) Count Performed By SINA JOHNSON RN (RN) Last Modified By: Zee Delgadillo RN 07/11/21 11:15:16 [facility] IntraOp Counts Final Audit 07/11/21 11:15:16 Tuber Machine Cutter: EANAPIER Modifier: EANAPIER 1 <*> Procedure Wound Debridement Lower Extremity 1 <+> Count Results 1 <+> Count Performed By (Scrub) 1 <+> Count Performed By (RN) [facility] IntraOp Departure from OR Entry 1 Integumentary Assessment Transfer/Handoff Transfer to Ambulatory unit, Phase II Handoff Method Phone call, Online nursing summary Post-op Transport Stretcher/Gurney Via Patient Transport SINA JOHNSON RN Accompanied by Last Modified By: Zee Delgadillo RN 07/11/21 11:30:27 [facility] IntraOp Departure from OR Audit 07/11/21 11:30:27 Tuber Machine Cutter: RESULTJO Modifier: JAIRO <+> 1 Patient Transport Accompanied by [facility] IntraOp Dressing and Packing Entry 1 Type Dressing Wound Dressing Item Cristian, Kerlix/Feng Supplemental Other Applications Applied By MANI THOMAS MD-MARISOL Last Modified By: Zee Delgadillo RN 07/11/21 11:16:14 General Comments: SHOE [facility] IntraOp Fire Risk Assessment Entry 1 [...] Modified By: Zee Delgadillo RN 07/11/21 11:09:14 [facility] IntraOp Fire Risk Assessment Audit 07/11/21 11:09:14 Tuber Machine Cutter: RESULTJO Modifier: BINAPIHAKEEM <+> 1 Fire Risk Assessment Verified By <+> 1 Fire Risk Assessment Verified Date/Time [facility] IntraOp General Case Customer Support Coordinator 1 Case Information OR OR 06 [facility] Case Level 1 Room Verified Yes Wound Class II - Clean-Contaminated Specialty Vascular Anesthesia Type MAC ASA Class 3 Diagnosis Preop Diagnosis NON HEALING LOWER BILATERAL ISCHEMIA WOUNDS Postop Diagnosis SEE POST OP MD NOTES Last Modified By: Zee Delgadillo RN 07/11/21 11:14:57 [facility] IntraOp General Case Data Audit 07/11/21 11:14:57 Tuber Machine Cutter: EANAPIER Modifier: EANAPIER 1 <*> Specialty 1 <+> Preop Diagnosis 07/11/21 10:49:10 Tuber Machine Cutter: KURT Modifier: EANAPIER <+> 1 ASA Class [facility] IntraOp Implant Log Entry 1 Type Implant (Synthetic) Implant Log Implant CYTAL WOUND MTRX 3 LYER Identification [id number] Description Implant Quantity 1 Implant [id number] Identification Serial Number Implant [id number] Identification Lot Number Implant [employer] Identification Vp Design Name: Implant [id number] Identification Catalog Number Implant Size 7 X 10 CM Implant Has an Yes Expiration Date Implant Expiration 02/13/22 Date Tissue Implant Last Modified By: Zee Delgadillo RN 07/11/21 11:12:51 [facility] IntraOp Intraoperative Assessment Entry 1 Handoff [...] Modified By: SINA JOHNSON RN 07/11/21 10:09:43 [facility] IntraOp Intraoperative Equipment Entry 1 Type Monitoring Equipment Intraop Monitoring Electrocardiogram Five lead placement (ECG) Electrode Placement Blood Pressure Non-Invasive BP Device Source Pulse Oximeter Hand, left Probe Site Antiembolic Devices Scopes Photo/Video Documentation Photo No Video No Last Modified By: SINA JOHNSON RN 07/11/21 10:10:01 [facility] IntraOp Medication Admin Entry 1 Medication/Irrigant Lidocaine .5% plain -- [id number] Dose Dose 1 Unit of Measure % Administered By MANI THOMAS MD-MARISOL Procedure Irrigation Last Modified By: Zee Delgadillo RN 07/11/21 11:13:38 [facility] IntraOp Patient Positioning Entry 1 Procedure [...] 11:17:05 General Comments: PROCEDURE ON PATIENT STRETCHER [facility] IntraOp Patient Positioning Audit 07/11/21 11:17:05 Tuber Machine Cutter: KURT Modifier: JAIRO 1 <*> Procedure 1 <*> Procedure 1 <*> Procedure Wound Debridement Lower Extremity 1 <*> Procedure Wound Debridement Lower Extremity 1 <*> Procedure Wound Debridement Lower Extremity 1 <*> Positioned By Purvi Mccarty CRNA 1 <*> Positioned By Purvi Mccarty CRNA [facility] IntraOp Sign In Entry 1 Patient, [...] Modified By: SINA JOHNSON RN 07/11/21 10:11:03 [facility] IntraOp Sign Out Entry 1 RN [...] Modified By: Zee Delgadillo RN 07/11/21 11:30:40 [facility] IntraOp Sign Out Audit 07/11/21 11:30:40 Tuber Machine Cutter: JAIRO Modifier: EANAPIER <+> 1 RN Sign Out Signature <+> 1 RN Sign Out Signature Date/Time [facility] IntraOp Skin Prep Entry 1 Procedure Wound Debridement Lower Extremity Prescribed N/A Pre-Surgical Prep Completed Prep Area BILATERAL FEET Intraop Prep Prep Agents Betadine solution Prep by SINA JOHNSON RN Hair Removal Methods No hair removal performed Last Modified By: Zee Delgadillo RN 07/11/21 11:14:20 [facility] IntraOp Surgical Procedures Entry 1 Procedure Wound Debridement Lower Extremity Additional (DEBRIDEMENT OF Procedure BILATERAL FOOT WOUNDS Description WITH ACELLULAR GRAFT PLACEMENT TO LEFT FOOT) Primary Procedure Yes Primary Surgeon MANI THOMAS MD-MARISOL Start 07/11/21 11:07:00 Stop 07/11/21 11:18:00 Anesthesia Type MAC Specialty General Wound Class II - Clean-Contaminated Last Modified By: Zee Delgadillo RN 07/11/21 11:30:42 [facility] IntraOp Surgical Procedures Audit 07/11/21 11:30:42 Tuber Machine Cutter: JAIRO Modifier: EANAPIER <+> 1 Stop 07/11/21 11:16:15 Tuber Machine Cutter: KURT Modifier: EANAPIER <+> 1 Start [facility] IntraOP Time Out Entry 1 Procedure [...] Signed By: Zee Delgadillo RN 07/11/21 11:30 WARRENROBINSON 07/14/21 16:36 Unfinalized History Date/Time Username Reason for Unfinalizing Freetext Reason for Unfinalizing 07/14/21 16:33 WATTSDR Correct Billing documented in this encounter Plan of Treatment Not on file documented as of this encounter Visit Diagnoses Not on filedocumented in this encounter
--- OUTSIDE RECORDS SUMMARY | 2025-06-26 11:19 | XMS_ITS | Clinical Summary ---
Author Organization [employer] ([place], [place], [place], [place]) Address [address] [place] [address] Care Team Providers Care Speeder Frame Tender Name Role Phone Unavailable Primary Care [...]
--- OUTSIDE RECORDS SUMMARY | 2025-06-26 11:19 | XMS_ITS | Encounter Summary ---
Author Organization [employer] ([place], [place], [place], [place]) Address [address] [place] [address] Care Team Providers Care Linux Vmware Administrator Name Role Phone Unavailable Primary Care Provider Unavailabl e Encounter Details Date Type Department Care Team (Late st Contact Info) Description 07/11/2021 Transcribed Document [facility] [place] [facility] [place] [address] ProviderEvangelista MD [address] [place] [address] Social History Tobacco Use Types [...] Evangelista ProviderMD - 07/11/2021 11:07 AM CDT [facility] Main OR Preop Summary Primary Physician: MANI THOMAS MD-SUR Finalized Date/Time: 07/11/21 13:05:00 Pt. Name: BEE COLON./Sex: 1970 Female Med Rec #: [id number] Physician: MANI THOMAS MD-SUR Financial #: [id number] Pt. Type: O Room/Bed: Admit/Disch: 07/11/21 08:06:00 - Institution: [facility] PreOp Case Times Entry 1 [...]
--- OUTSIDE RECORDS SUMMARY | 2025-06-26 11:19 | XMS_ITS | Encounter Summary ---
Author Organization [employer] ([place], [place], [place], [place]) Address [address] [place] [address] Care Team Providers Care Clinical Data Research Name Role Phone Unavailable Primary Care Provider Unavailabl e Encounter Details Date Type Department Care Team (Late st Contact Info) Description 07/11/2021 Transcribed Document [facility] Radiology [address] [place] [address] Dennis Greco MD [address] [place] [address] Social History Tobacco Use Types Packs/Day Years [...] - 07/11/2021 1:24 PM EDT Patient: BEE SHANE Age: 51 Years Sex: Female : 1970 [...]
--- OUTSIDE RECORDS SUMMARY | 2025-06-26 11:19 | XMS_ITS | Encounter Summary ---
Author Organization [employer] ([place], [place], [place], [place]) Address [address] [place] [address] Care Team Providers Care Auto Mechanic Apprentice Name Role Phone Unavailable Primary Care Provider Unavailabl e Encounter Details Date Type Department Care Team (Late st Contact Info) Description 03/20/2022 Transcribed Document [facility] [place] [facility] [place] [address] ProviderEvangelista MD [address] [place], [place] [...] Evangelista ProviderMD - 03/20/2022 10:22 AM CDT [facility] [place] [address] BEE COLON :1970 Visit Time:03/20/2022 What [...] EDT Where: [address] [place] [address]- Medications What How Much When Instructions Next [...] and water are not available, use hand bilingual inside sales representative. ? Change your dressing as told by [...] fried or sweet foods. ? Take an lygi-uis-fpukdbx or prescription medicine for constipation. ??? Do not use any products that contain nicotine or tobacco, such as cigarettes and e-cigarettes. These can delay bone healing after surgery. If you need help quitting, ask your health care provider. ??? Take pyyo-jkr-ajmlyyk and prescription medicines only as told by [...] provider. Document Revised: 12/29/2019 Document Reviewed: 11/25/2018 [employer] Patient Education ?? 2020 [employer]. Outpatient Surgery, Adult, Care After This sheet [...] children on your own. Medicines ??? Take fgsh-edq-fvpydne and prescription medicines only as told by [...] keep your urine pale yellow. ? Take kehj-zmj-ijdrswy or prescription medicines. ? Eat foods that [...] added (diluted fruit juice). ? Eat bland, fmzd-ef-lrmtkn foods in small amounts as you are [...] and water are not available, use hand bilingual inside sales representative. ? Change your dressing as told by [...] drink clear fluids slowly and eat bland, cxdj-dk-frsfqh foods in small amounts. ??? Ask your health care provider what activities are safe for you. This information is not intended to replace advice given to you by your health care provider. Make sure you discuss any questions you have with your health care provider. Document Revised: 03/01/2021 Document Reviewed: 08/23/2020 [employer] Patient Education ?? 2020 [employer]. Emergency Awareness and Preventative Care STROKE is [...] Assistance with quitting is available by contacting 5-646-PFLD-NOW. This is a free resource providing counseling, [...] range between ( 0.0 and 7.0 ) Ogle #: 1.05 K/uL -- Normal range between ( 0.16 and 1.00 ) Eos #: 0.30 x10(3)/uL -- Normal range between ( 0.00 and 0.80 ) Ogle %: 8.5 % -- Normal range between [...] was given the opportunity to ask questions. Patient/Senior Asic Design Engineer Name: Patient/Senior Asic Design Engineer Signature: Relationship to Patient: Clinician/Hospital Senior Asic Design Engineer Signature: Date: documented in this encounter Plan of Treatment Not on file documented as of this encounter Visit Diagnoses Not on filedocumented in this encounter
--- OUTSIDE RECORDS SUMMARY | 2025-06-26 11:19 | XMS_ITS | Encounter Summary ---
Author Organization [employer] ([place], [place], [place], [place]) Address [address] [place] [address] Care Team Providers Care Detective Bowling Alley Name Role Phone Unavailable Primary Care Provider Unavailabl e Encounter Details Date Type Department Care Team (Late st Contact Info) Description 07/11/2021 Transcribed Document [facility] [place] [facility] [place] [address] ProviderEvangelista MD [address] [place] [address] Social History Tobacco Use Types [...] Evangelista ProviderMD - 07/11/2021 12:12 PM CDT [facility] [place] [address] BEE COLON :1970 Visit Time:07/11/2021 What to do next Your Diagnosis Non-pressure chronic ulcer of other part of right foot with unspecified severity Peripheral vascular disease, unspecified Unspecified atherosclerosis of [place] arteries of extremities, unspecified extremity, Unspecified atherosclerosis of [place] arteries of extremities, unspecified extremity Instructions From [...] 7-10 days Jul.23 at 11:15 am Where: [facility] [address] [place] [phone] Medications What How Much When Instructions Next [...] eating solid foods. General instructions ??? Take vsgp-eik-jxwvhbi and prescription medicines only as told by [...] provider. Document Revised: 01/31/2019 Document Reviewed: 02/22/2017 [employer] Patient Education ?? 2020 [employer] Surgical Wound Debridement, Care After This sheet [...] these instructions at home: Medicines ??? Take vqzf-unh-twwdouu and prescription medicines only as told by [...] and water are not available, use hand box toe stitcher. ? Change your dressing as told by [...] provider. Document Revised: 10/25/2019 Document Reviewed: 10/25/2019 [employer] Patient Education ?? 2020 [employer] Emergency Awareness and Preventative Care STROKE [...] Assistance with quitting is available by contacting 4-842-ANAANOW. This is a free resource providing counseling, support, and referral. Or you may contact your personal physician. [place] Suicide Prevention Lifeline: The National Suicide Prevention [...] range between ( 0.0 and 7.0 ) [place]field #: 0.83 K/uL -- Normal range between ( 0.16 and 1.00 ) Eos #: 0.28 x10(3)/uL -- Normal range between ( 0.00 and 0.80 ) [place]field %: 9.0 % -- Normal range between [...] was given the opportunity to ask questions. Patient/Reinforcing Bar Setter Name: Patient/Reinforcing Bar Setter Signature: Relationship to Patient: Clinician/Hospital Reinforcing Bar Setter Signature: Date: Electronically signed by Atul, [facility] Conversion Health Tech Cerner at 03/05/2023 7:13 PM CDT documented in this encounter Plan of Treatment Not on file documented as of this encounter Visit Diagnoses Not on filedocumented in this encounter
--- OUTSIDE RECORDS SUMMARY | 2025-06-26 11:19 | XMS_ITS | Encounter Summary ---
Author Organization [employer] ([place], [place], [place], [place]) Address [address] [place] [address] Care Team Providers Care Lead Furnace Operator Name Role Phone Unavailable Primary Care Provider Unavailabl e Encounter Details Date Type Department Care Team (Late st Contact Info) Description 07/10/2021 Transcribed Document [facility] [place] [facility] [place] [address] ProviderEvangelista MD [address] [place], [place] [id number] Social History Tobacco Use Types Packs/Day Years [...] Ministry Provided to : Patient, Family/Significant other Latter Day Preference : Hinduism ([employer]) MEDINA BRADFORD P - 07/11/2021 10:58 EDT Spiritual Assessment Spiritual Assessment Comment/Summary Points : Provided pre-surgery visit and prayer with patient and mother. Spirital Assessment Comment/Summary Report : SPIRITUAL ASSESSMENT COMMENT/SUMMARY No qualifying data available. MEDINA BRADFORD - 07/11/2021 10:58 EDT Interventions Emotional Support : Empathic/Engaged listening, Family/Significant other supported Spiritual and Latter Day : Prayer shared, Spiritual/Latter Day support provided MEDINA BRADFORD - 07/11/2021 10:58 EDT Electronically signed by Atul [facility] Conversion Mechanical Insulator Cerner at 03/05/2023 6:48 PM CDT documented in this encounter Plan of Treatment Not on file documented as of this encounter Visit Diagnoses Not on filedocumented in this encounter
--- OUTSIDE RECORDS SUMMARY | 2025-06-26 11:19 | XMS_ITS | Encounter Summary ---
Author Organization [employer] ([place], [place], [place], [place]) Address [address] [place] [address] Care Team Providers Care Material Liaison Name Role Phone Unavailable Primary Care Provider Unavailabl e Encounter Details Date Type Department Care Team (Late st Contact Info) Description 07/31/2020 Transcribed Document [facility] [place] [facility] [address] ProviderEvangelista MD [address] [place], [place] [id number] Social History Tobacco Use Types Packs/Day Years Used Date Smoking Tobacco: Never Assessed Comments Unknown Sex and Gender Information Value Date Recorded Sex Assigned at Not on file Legal Sex Female 3:10 PM CDT Gender Identity Not on file Sexual Orientation Not on file documented as of this encounter Miscellaneous Notes * [employer] Conversion Note - Evangelista ProviderMD - 07/31/2020 11:30 AM CDT Patient: BEE [...] at this time with the use of [place] 10/325 mg four times daily dosing, Lyrica [...]
--- OUTSIDE RECORDS SUMMARY | 2025-06-26 11:19 | XMS_ITS | Encounter Summary ---
Author Organization to be ([place], [place], [place], [place]) Address [address] [place] [address] Care Team Providers Care Kitchen Manager Name Role Phone Unavailable Primary Care Provider Unavailabl e Encounter Details Date Type Department Care Team (Late st Contact Info) Description 03/17/2022 Transcribed Document [facility] Family Medicine Formerly [facility] [place] [address] ProviderEvangelista MD [address] [place] [address] Social History Tobacco Use Types [...] Source : Measured Height Entry Format : [place] Height, Feet : 5 ft(Converted to: 152 cm, 60 Inch) Height, Inches : 6.5 Inch(Converted to: 0 ft 7 Inch, 16.51 cm) Clinical Height : 168.91 cm Weight Source : Standing scale Weight Entry Format : [place] Clinical Dosing Weight : 131.82 kg Weight, Pounds : 290 lb Body Surface Area (BSA) : 2.36 m2 Body Mass Index : 46.2 kg/m2 (>HHI) [place] Body Weight : 60 kg Ale Gresham RN-PATIENT CARE BEDSIDE NON-EXEMPT - 03/19/2022 12:07 EDT Health Histories Smoking Status : Former smoker, quit more than 30 days ago Smokeless Tobacco Status : Never Implant/Device Type, Aquatic Life Laborer and Model : spinal cord stimulator; cardiac [...] 07/10/2021 16:16:31 EDT by aDlton Lang Rn) Drug Use Hx: No. Use in Last 12 Months: No. (Last Updated: 03/17/2022 08:41:27 EDT by DEMETRICE WANG RN) Infectious Disease History Does patient have symptoms of COVID-19? : No Tested for COVID19 in the past 14 days : Yes, Patient stated results Negative Where and When was COVID19 testing completed? : [facility] 03/18/22 Does the Patient state known exposure [...] DEMETRICE WANG RN - 03/17/2022 8:40 EDT [place] Suicide Severity Rating Scale (C-SSRS) CSSRS Past [...] Bee Legal Guardian : No Support Person/Patient Mechanical Artist : Yes Support Person/Pt Rep Name : Nelida Colon - mother Support Person/Pt Rep Contact Information : [phone] Want Family/Rep/Phys Notified of Admit : No [...] Obtained From : Patient Primary Language : Latvian Preferred Communication Mode : Verbal Communication Barrier : None Diagnostic Assistant Needed : No DEMETRICE WANG RN - [...] Old : Yes Gender Male : No DEMETIRCE WANG RN - 03/17/2022 8:40 EDT documented in this encounter Plan of Treatment Not on file documented as of this encounter Visit Diagnoses Not on filedocumented in this encounter
--- OUTSIDE RECORDS SUMMARY | 2025-06-26 11:19 | XMS_ITS | Encounter Summary ---
Author Organization [employer] ([place], [place], [place], [place]) Address [address] [place] [address] Care Team Providers Care Research Attorney Name Role Phone Unavailable Primary Care Provider Unavailabl e Encounter Details Date Type Department Care Team (Late st Contact Info) Description 05/13/2022 Transcribed Document [facility] [place] [facility] [place] [address] ProviderEvangelista MD [address] [place] [address] Social History Tobacco Use Types [...] : 1970 Associated Diagnoses: None Author: BEE BRYANT APRN Chief Complaint pleasant 51 yo female [...] Tartrate: 100 mg, Oral, BID, 0 Refill(s) [place] 10 mg-325 mg oral tablet: 1 Tab, [...] BID Metoprolol Tartrate 100 mg, Oral, BID [place] 10 mg-325 mg oral tablet 1 Tab, PRN, Oral, Q6H ramipril 5 mg, Oral, Daily spironolactone 25 mg, Oral, Daily traZODone 100 mg, Oral, At Bedtime Victoza 1.8 mg, SubCutaneous, Daily Xarelto 2.5 mg, Oral, BID Zetia 10 mg, Oral, At Bedtime , No qualifying data available Problem list: All Problems 6-Stented coronary artery / SNOMED CT 0056286768 / Confirmed Spinal cord stimulator right hip :check w/ pt re on/off status / SNOMED CT 201521317 / Confirmed Peripheral vascular disease / SNOMED CT 1372894859 / Confirmed Hypertension / SNOMED CT 68352019 / Confirmed History of obstructive sleep apnea / IMO 51896899 / Confirmed Foot pain, right / SNOMED CT 827994478 / Confirmed Fibromyalgia / SNOMED CT 14824989 / Confirmed DM - wears Dexcom / SNOMED CT 241375882 / Confirmed Diabetic neuropathy / SNOMED CT 271973908 / Confirmed Coronary artery disease / SNOMED CT 0775582871 / Confirmed Chronic back pain / SNOMED CT 534988574 / Confirmed At risk for sleep apnea / IMO 61356007 / Confirmed Angina / SNOMED CT 061743819 / Confirmed -2020 Non-ST elevation [place] (NSTEMI) x 2 / SNOMED CT 1230157901 / Confirmed Canceled: Myocardial infarction / SNOMED CT 19253696 Canceled: Cellulitis of foot, left / SNOMED CT 194188385 s/p left foot transmetatarsal amp Canceled: Unsteady gait-uses cane / SNOMED CT 70177291 , Active Problems (14) -2020 Non-ST elevation [place] (NSTEMI) x 2 6-Stented coronary artery Angina [...] been selected or recorded. Procedure history: Hysterectomy ([id number]). right foot pinning. lap with laser x3. rt knee scope x2. left knee scope. right hand CMC x4. left hand CMC x1. all toes amputated from left foot. left shoulder scope. right shoulder scope. Cholecystectomy (57576315). Appendectomy (132426047). spinal cord stimulator. Cardiac catheterization (59035399). Comments: 03/19/2022 12:20 EDT - Ale Gresham [...] EDT Height Source Measured Height Entry Format [place] Height/Length, [place]IZE[place] (ft) 0 ft Height/Length [place] 66.5 Inch CLINICALHEIGHT 168.91 cm [place] Body Weight 60 kg Weight Source Standing scale Weight Entry Format [place] Weight [place] lb 290 lb CLINICALWEIGHT 131.82 kg Body [...] ray 2. DM 3. ANA 4. CAD, [place] 5. back pain 6. fibromyalgia 7. neuropathy 8. HTN 9. PVD. Condition: Stable. pt to proceed with surgery, DC home same day Electronically signed by Dave Pollard Conversion Steam Fitter Supervisor Maintenance Cerner at 03/05/2023 6:59 PM CDT documented in this encounter Plan of Treatment Not on file documented as of this encounter Visit Diagnoses Not on filedocumented in this encounter
--- OUTSIDE RECORDS SUMMARY | 2025-06-26 11:19 | XMS_ITS | Encounter Summary ---
Author Organization [employer] ([place], [place], [place], [place]) Address [address] [place] [address] Care Team Providers Care Child Watch Attendant Name Role Phone Unavailable Primary Care Provider Unavailabl e Encounter Details Date Type Department Care Team (Late st Contact Info) Description 07/11/2021 Transcribed Document [facility] Radiology [address] [place] [address] Dennis Greco MD [address] [facility] [place] [id number] Social History Tobacco Use Types Packs/Day Years [...] 1970 Associated Diagnoses: None Author: BEE BRYANT, DOUBLE NEEDLE OPERATOR Chief Complaint spenser feet wounds Review of [...] list: All Problems 6-Stented coronary artery / [facility] 1745870332 / Confirmed Spinal cord stimulator status rt hip pt turned off this am / SNOMED CT 026559576 / Confirmed Peripheral vascular disease / SNOMED CT 5241077748 / Confirmed Myocardial infarction / SNOMED CT 92427215 / Confirmed Hypertension / SNOMED CT 65210688 / Confirmed History of obstructive sleep apnea / IMO 51696519 / Confirmed Fibromyalgia / SNOMED CT 29426018 / Confirmed DM - Diabetes mellitus / SNOMED CT 308795894 / Confirmed Diabetic neuropathy / SNOMED CT 825990842 / Confirmed Coronary artery disease / SNOMED CT 3289530561 / Confirmed Chronic back pain / SNOMED CT 886319041 / Confirmed Cellulitis of foot, left / SNOMED CT 434788868 / Confirmed Angina / SNOMED CT 197776697 / Confirmed -2020 Non-ST elevation [place] (NSTEMI) x 2 / SNOMED CT 2063910175 / Confirmed Unsteady gait-uses cane / SNOMED CT 69688404 / Confirmed, Active Problems (15) Non-ST elevation [place] (NSTEMI) x 2 6-Stented coronary artery Angina [...] been selected or recorded. Procedure history: Hysterectomy ([id number]). right foot pinning. lap with laser x3. rt knee scope x2. left knee scope. right hand CMC x4. left hand CMC x1. all toes amputated from left foot. left shoulder scope. right shoulder scope. Cholecystectomy (93058076). Appendectomy (230785508). spinal cord stimulator. Physical Examination VS/Measurements No qualifying data available, Measurements from flowsheet : Measurements 07/10/2021 16:16 EDT Height Source Measured Height Entry Format [place] Height/Length, SWED[place] (ft) 5 ft Height/Length SW[place] 6.5 Inch CLINICALHEIGHT 168.91 cm [place] Body Weight 60 kg Weight Source Standing scale Weight Entry Format [place] Weight [place] lb 281 lb CLINICALWEIGHT 127.73 kg Body [...]
--- OUTSIDE RECORDS SUMMARY | 2025-06-26 11:19 | XMS_ITS | Encounter Summary ---
Author Organization [employer] ([place], [place], [place], [place]) Address [address] [place] [address] Care Team Providers Care Project Management Analyst Name Role Phone Unavailable Primary Care Provider Unavailabl e Encounter Details Date Type Department Care Team (Late st Contact Info) Description 03/17/[address] [facility] [place] Family Medicine Formerly [facility] [place] [address] ProviderEvangelista MD [address], [place] [id number] Social History Tobacco Use Types Packs/Day Years [...] Ministry Provided to : Patient, Family/Significant other Bahai Preference : Islam (Disciples of Demet[employer]) MEDINA BRADFORD P - 03/20/2022 8:04 EDT Spiritual Assessment Spiritual Assessment Comment/Summary Points : Provided pre-surgery visit and prayer with patient and mother. Spirital Assessment Comment/Summary Report : SPIRITUAL ASSESSMENT COMMENT/SUMMARY No qualifying data available. MEDINA BRADFORD - 03/20/2022 8:04 EDT Interventions Emotional Support : Empathic/Engaged listening, Family/Significant other supported Spiritual and Bahai : Prayer shared, Spiritual/Bahai support provided MEDINA BRADFORD - 03/20/2022 8:04 EDT Electronically signed by Atul [facility] Conversion Community Service Technician Cerner at 03/05/2023 6:53 PM CDT documented in this encounter Plan of Treatment Not on file documented as of this encounter Visit Diagnoses Not on filedocumented in this encounter
--- OUTSIDE RECORDS SUMMARY | 2025-06-26 11:19 | XMS_ITS | Encounter Summary ---
Author Organization [employer] ([place], [place], [place], [place]) Address [address] [place] [address] Care Team Providers Care Optical Glass Sawyer Name Role Phone Unavailable Primary Care Provider Unavailabl e Encounter Details Date Type Department Care Team (Late st Contact Info) Description 07/10/2021 Transcribed Document [facility] [place] [facility] [place] [address] ProviderEvangelista MD [address] [place] [address] Social History Tobacco Use Types [...] Source : Measured Height Entry Format : [place] Height, Feet : 5 ft(Converted to: 152 cm, 60 Inch) Height, Inches : 6.5 Inch(Converted to: 0 ft 7 Inch, 16.51 cm) Clinical Height : 168.91 cm Weight Source : Standing scale Weight Entry Format : [place] Clinical Dosing Weight : 127.73 kg Weight, Pounds : 281 lb Body Surface Area (BSA) : 2.33 m2 Body Mass Index : 44.8 kg/m2 (>HHI) [place] Body Weight : 60 kg CHELSY SUÁREZ - 07/11/2021 8:28 EDT Health Histories Smoking Status : Former smoker, quit more than 30 days ago Smokeless Tobacco Status : Never Implant/Device Type, Valet Parking Attendant and Model : spinal cord stimulator Dalton [...] Where was the COVID-19 Testing completed? : [facility] in [place], [place] Date of COVID-19 test known? : [...] : Yes Spiritual/Cultural Needs Comment : 07/11 Confucianist Preference : Jainism ([employer]iples [employer]) Spiritual/Cultural Needs Comment : 07/11 Dalton Lang Rn - 07/10/2021 16:16 EDT [place] Suicide Severity Rating Scale (C-SSRS) CSSRS Past [...] Mother Legal Guardian : No Support Person/Patient Copper Flotation Operator : Yes Support Person/Pt Rep Name : Nelida kraft Support Person/Pt Rep Contact Information : [phone] Want Family/Rep/Phys Notified of Admit : No Emergency Contact #1 : ` Emergency Contact #1 Phone Number : ` Emergency Contact #1 Relationship : ` Emergency Contact #2 : ` Emergency Contact #2 Phone Number : ` Emergency Contact #2 Relationship : ` Information Obtained From : Patient Primary Language : Swedish Preferred Communication Mode : Verbal Communication Barrier : None Scabbler Needed : No Dalton Lang Rn - [...]
--- OUTSIDE RECORDS SUMMARY | 2025-06-26 11:19 | XMS_ITS | Encounter Summary ---
Author Organization [employer] ([place], [place], [place], [place]) Address [address] [place] [address] Care Team Providers Care Shank Sorter Name Role Phone Unavailable Primary Care Provider Unavailabl e Encounter Details Date Type Department Care Team (Late st Contact Info) Description 07/11/2021 Transcribed Document [facility] [place] [facility] [place] [address] ProviderEvangelista MD [address] [place] [address] Social History Tobacco Use Types [...] these instructions at home: Medicines ??? Take bbun-zzj-[id number] and prescription medicines only as told by [...] and water are not available, use hand building inspection engineer. ? Change your dressing as told [...] provider. Document Revised: 10/25/2019 Document Reviewed: 10/25/2019 [employer] Patient Education ? 2020 [employer]. Obstetrics and Gynecology Monitored Anesthesia Care, Care [...] eating solid foods. General instructions ??? Take [id number] and prescription medicines only as told by [...] provider. Document Revised: 01/31/2019 Document Reviewed: 02/22/2017 [employer] Patient Education ? 2020 [employer] documented in this encounter Plan of Treatment Not on file documented as of this encounter Visit Diagnoses Not on filedocumented in this encounter
--- OUTSIDE RECORDS SUMMARY | 2025-06-26 11:19 | XMS_ITS | Encounter Summary ---
Author Organization [employer] ([place], [place], [place], [place]) Address [address] [place] [address] Care Team Providers Care Gallery Host Name Role Phone Unavailable Primary Care Provider Unavailabl e Encounter Details Date Type Department Care Team (Late st Contact Info) Description 03/19/2022 Transcribed Document [facility] [place] Medicine Counts include 234 beds at the [facility] [place] [address] ProviderEvangelista MD [address] [place] [address] Social History Tobacco Use Types [...] 1970 Associated Diagnoses: None Author: BEE BRYANT, WEB UI DEVELOPER Chief Complaint pleasant 51 yo female here [...] Problems 6-Stented coronary artery / SNOMED CT 4006573110 / Confirmed Spinal cord stimulator status rt hip pt turned off this am / SNOMED CT 552225033 / Confirmed Peripheral vascular disease / SNOMED CT 3823855686 / Confirmed Hypertension / SNOMED CT 84518064 / Confirmed History of obstructive sleep apnea / IMO 62270140 / Confirmed Foot pain, right / SNOMED CT 139088761 / Confirmed Fibromyalgia / SNOMED CT 17431847 / Confirmed DM - wears Dexcom / SNOMED CT 785670636 / Confirmed Diabetic neuropathy / SNOMED CT 661071862 / Confirmed Coronary artery disease / SNOMED CT 9521214454 / Confirmed Chronic back pain / SNOMED CT 719437200 / Confirmed At risk for sleep apnea / IMO 41281918 / Confirmed Angina / SNOMED CT 416847229 / Confirmed -2020 Non-ST elevation [place] (NSTEMI) x 2 / SNOMED CT 8971131005 / Confirmed Canceled: Myocardial infarction / SNOMED CT 27315684 Canceled: Cellulitis of foot, left / SNOMED CT 986916548 s/p left foot transmetatarsal amp Canceled: Unsteady gait-uses cane / SNOMED CT 29662958 , Active Problems (14) Non-ST elevation [place] (NSTEMI) x 2 6-Stented coronary artery Angina [...] been selected or recorded. Procedure history: Hysterectomy ([id number]). right foot pinning. lap with laser x3. rt knee scope x2. left knee scope. right hand CMC x4. left hand CMC x1. all toes amputated from left foot. left shoulder scope. right shoulder scope. Cholecystectomy (40805688). Appendectomy (696488958). spinal cord stimulator. Cardiac catheterization (64840413). Comments: 03/19/2022 12:20 EDT - Ale Gresham RN-PATIENT CARE BEDSIDE NON-EXEMPT cardiac stents x6 Physical [...]
--- OUTSIDE RECORDS SUMMARY | 2025-06-26 11:19 | XMS_ITS | Encounter Summary ---
Author Organization [employer] ([place], [place], [place], [place]) Address [address] [place] [address] Care Team Providers Care Sales Representative [facility] Name Role Phone Unavailable Primary Care Provider Unavailabl e Encounter Details Date Type Department Care Team (Late st Contact Info) Description 05/15/2022 Transcribed Document [facility] [place] [facility] [place] [address] ProviderEvangelista MD [address] [place] [address] Social History Tobacco Use Types [...] Evangelista ProviderMD - 05/15/2022 8:00 AM CDT [facility] Main OR IntraOp Summary Primary Physician: ANGELA GREEN DPM-POD Finalized Date/Time: 05/20/22 14:13:00 Pt. Name: BEE COLON./Sex: 1970 Female Med Rec #: [id number] Physician: ANGELA GREEN DPM-POD Financial #: [id number] Pt. Type: O Room/Bed: Admit/Disch: 05/15/22 06:55:00 - 05/15/22 09:35:00 Institution: [facility] IntraOp Case Attendance Entry 1 Entry 2 Entry 3 Case Attendee ANGELA GREEN DPM-POD CHALKLEY, JUDSON E, Versteeg, Beckie, RN MD-ANS Role Performed Surgeon/Proceduralist, Anesthesiologist of Doctor Of Radiology, First First Record Time In 05/15/22 07:41:00 05/15/22 07:41:00 05/15/22 07:41:00 Time Out 05/15/22 08:26:00 05/15/22 08:26:00 05/15/22 08:26:00 Procedure Toe Amputation Toe Amputation Toe Amputation Other Attendee Superficial Wound Closed By: Last Modified By: Milly Powers, Milly Sandhu, Milly Sandhu RN 05/15/22 08:35:45 05/15/22 08:35:45 05/15/22 08:35:45 Entry 4 Entry 5 Entry 6 Case Attendee Antoinette Pena RN Kesten, Pablo Domingo, ZHANNA MILLS ST Role Performed Doctor Of Radiology, Second Doctor Of Radiology, Third Scrub, First Time In 05/15/22 07:41:00 05/15/22 07:41:00 05/15/22 07:41:00 Time Out 05/15/22 08:26:00 05/15/22 08:26:00 05/15/22 08:26:00 Procedure Toe Amputation Toe Amputation Toe Amputation Other Attendee Superficial Wound Closed By: Last Modified By: Milly Powers RN Versteeg, Beckie, Milly Sandhu RN 05/15/22 08:35:45 05/15/22 08:35:45 05/15/22 08:35:45 Entry 7 Case Attendee SHANA EASLEY RHIC SYSTEMS SAFETY ENGINEER Role Performed RHIC SYSTEMS SAFETY ENGINEER/Nurse Speed Belt Sander Tender Time In 05/15/22 07:41:00 Time Out 05/15/22 08:26:00 Procedure Toe Amputation Other Attendee Superficial Wound Closed By: Last Modified By: Milly Powers RN 05/15/22 08:35:45 [facility] IntraOp Case Attendance Audit 05/15/22 08:35:45 Business And Marketing Teacher: [id number] Modifier: [id number] 1 <+> Time Out 1 <*> Procedure [...] 7 <*> Procedure Toe Amputation 05/15/22 08:22:45 Business And Marketing Teacher: [id number] Modifier: [id number] 1 <+> Time In 1 <*> Procedure [...] 7 <*> Procedure Toe Amputation 05/15/22 07:57:53 Business And Marketing Teacher: [id number] Modifier: [id number] 1 <*> Case Attendee ANGELA GREEN DPM-POD 1 <*> Role Performed Surgeon/Proceduralist, First 1 <*> Procedure Toe Amputation 2 <*> Case Attendee JOSE ASHFORD MD-ANS 2 <*> Role Performed Anesthesiologist of Record 2 <*> Procedure Toe Amputation Entry 3 was deleted. Higher numbered entries shifted one position to fill the gap. <-> 3 Case Attendee MARYAN CHAUDHARI, WILBUR <-> 3 Role Performed RHIC SYSTEMS SAFETY ENGINEER/Nurse Speed Belt Sander Tender <-> 3 Procedure Toe Amputation <+> 4 Case Attendee <+> 4 Role Performed <+> 4 Procedure <+> 5 Case Attendee <+> 5 Role Performed <+> 5 Procedure <+> 6 Case Attendee <+> 6 Role Performed <+> 6 Procedure 05/15/22 07:40:54 Business And Marketing Teacher: [id number] Modifier: [id number] <+> 1 Procedure 2 <*> Procedure Toe Amputation 3 <*> Procedure Toe Amputation [facility] IntraOp Case Times Entry 1 Patient In Room Time 05/15/22 07:41:00 Out Room Time 05/15/22 08:26:00 Anesthesia Start Time 05/15/22 07:41:00 Stop Time 05/15/22 08:26:00 Surgery / Procedure Times Start Time 05/15/22 08:00:00 Stop Time 05/15/22 08:20:00 Last Modified By: Milly Powers RN 05/15/22 08:35:43 [facility] IntraOp Case Times Audit 05/15/22 08:35:43 Business And Marketing Teacher: [id number] Modifier: [id number] <+> 1 Out Room Time <+> 1 Stop Time 05/15/22 08:20:25 Business And Marketing Teacher: [id number] Modifier: [id number] <+> 1 Stop Time 05/15/22 08:01:04 Business And Marketing Teacher: [id number] Modifier: [id number] <+> 1 Start Time [facility] IntraOp Communication Entry 1 Communication To Family/Significant other Comment start Communication By Pablo David RN Date and Time 05/15/22 08:00:00 Last Modified By: Milly Powers RN 05/15/22 08:01:20 [facility] IntraOp Counts Verification Entry 1 Procedure Toe Amputation Count Info Count Type Sponge, Sharps, Miscellaneous Counts Verification Baseline/pre-procedure Sequence Count Results Not Applicable Counts Performed By Count Performed By ZHANNA LU ST (Scrub) Count Performed By Pablo David RN (RN) Last Modified By: Milly Powers RN 05/15/22 07:58:20 [facility] IntraOp Counts Final Entry 1 Procedure Toe Amputation Final Count Info Count Type Sponge, Sharps, Miscellaneous Counts Verification Skin Closure/end of Sequence procedure Count Results Correct, surgeon notified Counts Performed By Count Performed By ZHANNA LU ST (Scrub) Count Performed By Milly Powers RN (RN) Last Modified By: Milly Powers RN 05/15/22 08:17:25 [facility] IntraOp Counts Final Audit 05/15/22 08:17:25 Business And Marketing Teacher: [id number] Modifier: [id number] 1 <*> Procedure Toe Amputation 1 <+> Count Performed By (Scrub) 1 <+> Count Performed By (RN) [facility] IntraOp Cultures and Spec Summary Entry 1 Cultrures and Specimens Specimen Ordered: Yes Test(s) Routine/Path-Lab, Requested/Final Culture(s)/Microbiology Disposition Last Modified By: Milly Powers RN 05/15/22 07:58:38 General Comments: SPECIMENS a. 5th toe and 5th metatarsal, right foot CULTURES 1. right foot surgical site [facility] IntraOp Delays Entry 1 Delay Reason Patient, other (document in comment) Duration 11 Minute(s) Comment case moved up due to delay in previous case prep Last Modified By: Milly Powers RN 05/15/22 08:02:53 [facility] IntraOp Departure from OR Entry 1 Integumentary Assessment Integumentary WDL Assessment WDL Transfer/Handoff Transfer to Ambulatory unit, Phase II Handoff Method Bedside/Face to face, Phone call, Online nursing summary Post-op Transport Stretcher/Gurney Via Patient Transport Milly Powers RN Accompanied by Last Modified By: Milly Powers RN 05/15/22 08:03:25 [facility] IntraOp Dressing and Packing Entry 1 Type Dressing Wound Dressing Item 4x4's, Adaptic, Cristian, Kerlix/Feng Other Comments BETADINE SOLUTION ON FIELD Last Modified By: Milly Powers RN 05/15/22 08:17:31 [facility] IntraOp Fire Risk Assessment Entry 1 [...] Safety Precautions Followed Last Modified By: Milly oPwers RN 05/15/22 08:03:56 [facility] IntraOp General Case Visual Specialist 1 Case Information OR [address] Case Level 1 Room Verified Yes Wound Class 4 - Dirty, Infected Specialty Podiatry Anesthesia Type MAC ASA Class 4 Diagnosis Preop Diagnosis osteomyelitis right foot, pain right foot, ulcer to bone right foot Postop Same As Preop No Postop Diagnosis see surgeon postop notes Wound Class Definitions Last Modified By: Milly Powers RN 05/15/22 08:07:51 [facility] IntraOp Intraoperative Assessment Entry 1 Handoff Method Bedside/Face to face, Online nursing summary Valid History / Yes Physical in Chart Preoperative Yes Checklist Reviewed/Evaluated Allergies Reviewed Yes Patient is Latex No Sensitive Skin Assessment Yes Verified Present Upon IVs Arrival to OR Last Modified By: Milly Powers RN 05/15/22 08:20:08 [facility] IntraOp Intraoperative Assessment Audit 05/15/22 08:20:08 Business And Marketing Teacher: [id number] Modifier: [id number] <+> 1 Patient is Latex Sensitive <+> 1 Valid History / Physical in Chart [facility] IntraOp Intraoperative Equipment Entry 1 Type Equipment Equipment Equipment Waste Management System ID Number [id number] Intraop Monitoring Electrocardiogram Five lead placement (ECG) Electrode Placement Antiembolic Devices Scopes Photo/Video Documentation Last Modified By: Milly Powers RN 05/15/22 08:18:25 [facility] IntraOp Medication Admin Entry 1 Entry 2 Entry 3 Medication/Irrigant vancomycin 1Gm vial - GENTAMYCIN 80MG/2ML HEMSTSUNIL TORIBIO PWD [id number] VIAL - [id number] Combo Med List Time Administered Route of in antibiotic beads in antibiotic beads topical Administration Dose Dose 1 80 1 Unit of Measure gram mg gram Volume Administered By ANGELA GREEN DPM-ANGELA DAVE DPM-POD HARMON, BRYAN, DPM-POD Procedure Irrigation Irrigant Volume In Irrigant Volume Out Last Modified By: Milly Powers RN Versteeg, Beckie, RN Versteeg, Beckie, RN 05/15/22 08:33:37 05/15/22 08:33:37 05/15/22 08:33:37 Entry 4 Entry 5 Medication/Irrigant Bupivicaine/Marcaine lidocaine 1% 30ml vial 0.5% 30ml - [id number] - [id number] Combo Med List Time Administered 05/15/22 08:00:00 05/15/22 08:00:00 Route of inj inj Administration Dose Dose 4.5 4.5 Unit of Measure ml ml Volume Administered By ANGELA GREEN DPM-ANGELA DAVE DPM-POD Procedure Irrigation Irrigant Volume In Irrigant Volume Out Last Modified By: Milly Powers RN Versteeg, Beckie, RN 05/15/22 08:35:14 05/15/22 08:35:14 [facility] IntraOp Medication Admin Audit 05/15/22 08:35:14 Business And Marketing Teacher: [id number] Modifier: [id number] <*> Medication/Irrigant Bupivicaine/Marcaine 0.5% 30ml - [id number] 4 <+> Dose 4 <+> Time Administered 4 <+> Unit of Measure 5 <*> Medication/Irrigant lidocaine 1% 30ml vial - [id number] 5 <+> Dose 5 <+> Time Administered 5 <+> Unit of Measure 05/15/22 08:34:18 Business And Marketing Teacher: [id number] Modifier: [id number] <+> 4 Medication/Irrigant <+> 4 Route of Administration <+> 4 Administered By <+> 5 Medication/Irrigant <+> 5 Route of Administration <+> 5 Administered By 05/15/22 08:33:37 Business And Marketing Teacher: [id number] Modifier: [id number] 1 <*> Medication/Irrigant vancomycin 1Gm vial - [id number] 1 <+> Route of Administration 1 <+> Administered By 1 <+> Dose 1 <+> Unit of Measure <+> 2 Medication/Irrigant <+> 2 Route of Administration <+> 2 Administered By <+> 2 Dose <+> 2 Unit of Measure <+> 3 Medication/Irrigant <+> 3 Route of Administration <+> 3 Administered By <+> 3 Dose <+> 3 Unit of Measure [facility] IntraOp Patient Positioning Entry 1 Procedure [...] Modified By: Milly Powers RN 05/15/22 08:18:58 [facility] IntraOp Sign In Entry 1 Patient, [...] Modified By: Milly Powers RN 05/15/22 08:19:10 [facility] IntraOp Sign Out Entry 1 RN [...] Modified By: Milly Powers RN 05/15/22 08:35:54 [facility] IntraOp Sign Out Audit 05/15/22 08:35:54 Business And Marketing Teacher: [id number] Modifier: [id number] <+> 1 RN Sign Out Signature Date/Time [facility] IntraOp Skin Prep Entry 1 Procedure Toe Amputation Prescribed Yes Pre-Surgical Prep Completed Intraop Prep Integumentary WDL Assessment WDL Prep Agents Betadine scrub, Betadine solution Prep by Milly Powers RN Hair Removal Last Modified By: Milly Powers RN 05/15/22 08:19:24 [facility] IntraOp Surgical Procedures Entry 1 Procedure Toe Amputation Additional (RIGHT PARTIAL 5TH RAY Procedure AMPUTATION) Description Primary Procedure Yes Primary Surgeon ANGELA GREEN DPM-POD Start 05/15/22 08:00:00 Stop 05/15/22 08:20:00 Anesthesia Type MAC Specialty Podiatry Wound Class 3 - Contaminated Last Modified By: Milly Powers RN 05/15/22 08:20:49 [facility] IntraOp Surgical Procedures Audit 05/15/22 08:20:49 Business And Marketing Teacher: [id number] Modifier: [id number] 1 <*> Procedure Toe Amputation 1 <+> Wound Class 05/15/22 08:20:35 Business And Marketing Teacher: [id number] Modifier: [id number] 1 <*> Procedure Toe Amputation 1 <+> Stop 05/15/22 08:19:00 Business And Marketing Teacher: [id number] Modifier: [id number] <+> 1 Start [facility] IntraOp Temp Regulation Devices Entry 1 Temp Regulation Temperature Forced Air Warming Regulation Device device, Warm blankets Temperature Upper body Regulation Site Temperature Device ON Setting Temperature SHANA EASLEY CRNA Regulation Device Applied by Last Modified By: Milly Powers RN 05/15/22 08:19:50 [facility] IntraOP Time Out Entry 1 Procedure [...] Modified By: Milly Powers RN 05/15/22 08:02:08 [facility] IntraOP Time Out Audit 05/15/22 08:02:08 Business And Marketing Teacher: [id number] Modifier: [id number] 1 <+> Beta Dmitriy Administered 1 <+> [...] for Unfinalizing 05/20/22 14:11 WATTSDR Correct Billing Electronically signed by At[facility] Conversion Collection Advisor Cerner at 03/05/2023 7:12 PM CDT documented in this encounter Plan of Treatment Not on file documented as of this encounter Visit Diagnoses Not on filedocumented in this encounter
--- OUTSIDE RECORDS SUMMARY | 2025-06-26 11:19 | XMS_ITS | Encounter Summary ---
Author Organization [employer] ([place], [place], [place], [place]) Address [address] [place] [address] Care Team Providers Care Tube Fitter Name Role Phone Unavailable Primary Care Provider Unavailabl e Encounter Details Date Type Department Care Team (Late st Contact Info) Description 06/06/2020 Transcribed Document [facility] [place] Medicine [facility] [place] [address] ProviderEvangelista MD [address] [place] [id number] Social History Tobacco Use Types Packs/Day Years Used Date Smoking Tobacco: Never Assessed Comments Unknown Sex and Gender Information Value Date Recorded Sex Assigned at Not on file Legal Sex Female 3:10 PM CDT Gender Identity Not on file Sexual Orientation Not on file documented as of this encounter Miscellaneous Notes * [employer] Conversion Note - Evangelista ProviderMD - 06/06/2020 5:19 PM CDT Patient: BEE [...] Return to the clinic in two months. Cele Martinez APRN SF/jonil Electronically signed by [facility] Conversion Mail Processor Cerner at 03/05/2023 7:03 PM CDT documented in this encounter Plan of Treatment Not on file documented as of this encounter Visit Diagnoses Not on filedocumented in this encounter
--- OUTSIDE RECORDS SUMMARY | 2025-06-26 11:19 | XMS_ITS | Encounter Summary ---
Author Organization [employer] ([place], [place], [place], [place]) Address [address] [place] [address] Care Team Providers Care Director Supply Name Role Phone Unavailable Primary Care Provider Unavailabl e Encounter Details Date Type Department Care Team (Late st Contact Info) Description 05/12/2022 Transcribed Document [facility] [place] [facility] [place] [address] ProviderEvangelista MD [address] [id number] Social History Tobacco Use Types Packs/Day Years [...] Ministry Provided to : Patient, Family/Significant other Restorationist Preference : Congregational ([employer]) Aman Lujan Chaplain - 05/12/2022 15:58 EDT Spiritual Assessment Spiritual Assessment Comment/Summary Points : Supportive pre-surgery visit with patient, prayer provided. Spirital Assessment Comment/Summary Report : SPIRITUAL ASSESSMENT COMMENT/SUMMARY No qualifying data available. Aman Lujan Chaplain - 05/12/2022 15:58 EDT Interventions Emotional Support : Empathic/Engaged listening, Family/Significant other supported Spiritual and Restorationist : Prayer shared, Spiritual/Restorationist support provided Aman Lujan Chaplain - 05/12/2022 15:58 EDT documented in this encounter Plan of Treatment Not on file documented as of this encounter Visit Diagnoses Not on filedocumented in this encounter
--- OUTSIDE RECORDS SUMMARY | 2025-06-26 11:19 | XMS_ITS | Encounter Summary ---
Author Organization [employer] ([place], [place], [place], [place]) Address [address] [place] [address] Care Team Providers Care Human Resources Leader Name Role Phone Unavailable Primary Care Provider Unavailmildred e Encounter Details Date Type Department Care Team (Late st Contact Info) Description 07/11/2021 Transcribed Document [facility] [place] Medicine [facility] [place] [address] ProviderEvangelista MD [address] [place] [address] Social History Tobacco Use Types [...] Evangelista ProviderMD - 07/11/2021 11:07 AM CDT [facility] Main OR PostOp Summary Primary Physician: MANI THOMAS MD-SUR Finalized Date/Time: 07/11/21 17:49:06 Pt. Name: BEE COLON./Sex: 1970 Female Med Rec #: [id number] Physician: MANI THOMAS MD-SUR Financial #: [id number] Pt. Type: O Room/Bed: Admit/Disch: 07/11/21 08:06:00 - Institution: [facility] Main OR PostOp Case Times Entry [...]
[2025-06-26 11:33] LABS: Troponin I < 0.01 ng/ml (0.00-0.034)
[2025-06-26] MEDS: IOPAMIDOL-370 (76%);100ML BOTTLE 75 ML IV (11:47)
[2025-06-26] MEDS: SODIUM CHLORIDE 0.9% 10ML SYR (RAD ONLY) 10 ML IV (11:47)
[2025-06-26 12:56] LABS: Urine Pregnancy, HCG Qual. Negative (Negative)
[2025-06-26 15:12] LABS: Reflex Lactic Add Lactic Reflex
== END 2025-06-26 13:44 | disposition home or self-care (01) ==
PROVIDERS: Nurse Practitioner; Emergency Provider Student in an Organized Health Care Education/Training Program; PCP Internal Medicine
DX: R10.12 Left upper quadrant pain (principal); E11.65 Type 2 diabetes mellitus with hyperglycemia; R11.2 Nausea with vomiting, unspecified; R74.02 Elevation of levels of lactic acid dehydrogenase [LDH]; I11.9 Hypertensive heart disease without heart failure; E78.5 Hyperlipidemia, unspecified; I25.118 Atherosclerotic heart disease of native coronary artery with other forms of angina pectoris; Z79.4 Long term (current) use of insulin
CPT/HCPCS: 71045; 74177; 80053; 81025; 82803; 83690; 84484; 85025; 93005; 96361; 96374; 99285; J2550; J7030; Q9967

== ENCOUNTER 2025-10-15 07:18 | Observation (INO) | payer MEDICARE, SELFPAY ==
[2025-10-15] VITALS (19 sets, daily range): BP systolic 145–181; BP diastolic 80–116; PULSE 100–122; RESP 11–25; TEMP 36.6–37.6; O2SAT 91–97; BMI 41.9; BMI 38.4
--- NOTE | 2025-10-15 07:19 | XR_ITS ---
PROCEDURE INFORMATION: Exam: XR Chest Exam date and time: 10/15/2025 7:29 AM Age: 55 years old Clinical indication: Pain; Other: Cp TECHNIQUE: Imaging protocol: Radiologic exam of the chest. Views: 1 view. COMPARISON: CR XR CHEST PORTABLE 06/26/2025 11:54 AM FINDINGS: Lungs: Hypoventilatory changes of the lungs, with perihilar vascular crowding and a diffuse increase in pulmonary parenchymal density. No focal consolidation. Pleural spaces: Unremarkable. No pleural effusion. No pneumothorax. Heart/Mediastinum: Unremarkable. No cardiomegaly. Vasculature: The aorta demonstrates mild atherosclerotic calcification. Bones/joints: Postoperative changes right shoulder. IMPRESSION: Hypoventilatory changes, no acute findings.
--- NOTE | 2025-10-15 07:20 | ECG_ITS ---
APPROVED REPORT Exam: Resting ECG HR:104 bpm ECG Measurements Heart Rate 104 AXES WA 364 P 91 QRSd 93 QRS -10 QT 369 T 59 QTc 429 Conclusion ELECTRONIC ATRIAL PACEMAKER ELECTRONIC VENTRICULAR PACEMAKER ABNORMAL RHYTHM ECG INTERPRETATION BASED ON A DEFAULT AGE OF 38 YEARS UNCONFIRMED REPORT Electronically signed by : ALIX TEMPLE, 10/15/2025 23:03:21
--- NOTE | 2025-10-15 07:22 | ED_ITS ---
Discharge Plan Disposition Patient Disposition: Admitted Condition: Fair Clinical Impressions Clinical Impression: Pulmonary embolism Discharge ED Provider: Ravinder Borges General Adult HPI General Chief complaint: Chest Pain Stated complaint: CP Time Seen by Provider: 10/15/25 07:18 History of Present Illness HPI narrative: Patient is a 55 yo female with significant past medical hx of diabetes and multiple cardiac stents. It started around 3 am, substernal, shooting to her back. states it feels similar to prior episodes. Related Data Home Medications ?Medication ?Instructions ?Recorded ?Confirmed magnesium oxide 400 mg (241.3 mg 400 mg PO DAILY 08/0208/02/25 magnesium) tablet polyethylene glycol 3350 17 17 g PO DAILY PRN Constipa tion 10/15/25 10/15/25 gram/dose oral powder (Miralax) Previous Rx's ?Medication ?Instructions ?Recorded insulin syringe-needle U-100 0.5 #500 ea 01/31/25 mL 31 gauge x 03/31 (Sure Comfort Insulin Syringe) aspirin 81 mg chewable tablet 81 mg PO DAILY HEART HEA LTH #90 06/01/25 tabs atorvastatin 40 mg tablet 40 mg PO HS #90 tabs 5 buspirone 7.5 mg tablet 7.5 mg PO BID #180 tabs 05/16 06/09 dapagliflozin propanediol 10 mg 10 mg PO DAILY #90 tab s 06/01/25 tablet ezetimibe 10 mg tablet 10 mg PO HS #90 tabs 5 furosemide 40 mg tablet (Lasix) 40 mg PO DAILY #90 tab s 06/01/25 insulin glargine 100 unit/mL (3 60 unit (0.6 mL) SQ BI D #12 mL 06/01/25 mL) subcutaneous pen metoprolol tartrate 100 mg tablet 100 mg PO BID #180 t abs 06/01/25 pen needle, diabetic 31 gauge x #1,200 ea 06/01/25/ (Unifine Pentips) pregabalin 200 mg capsule 200 mg PO BID #180 caps 05/16 06/09 ranolazine 1,000 mg 1,000 mg PO BID #180 tabs tablet,extended release,12 hr rivaroxaban 2.5 mg tablet (Xarelto) 2.5 mg PO BIDWMEAL #180 tabs 06/01/25 insulin aspart U-100 100 unit/mL 18 unit (0.18 mL) SQ TID #45 mL 06/14/25 (3 mL) subcutaneous pen (Novolog FlexPen U-100 Insulin aspart) diphenoxylate-atropine 2.5 1 tab PO QID PRN diarrhea # 30 tabs 07/13/25 mg-0.025 mg tablet (Lomotil) zolpidem 5 mg tablet 5 mg PO HS PRN sleep #30 tab s 08/02/25 blood-glucose sensor (Dexcom G7 #3 ea 09/05/25 Sensor device) escitalopram oxalate 20 mg tablet 20 mg PO DAILY #90 t abs 09/05/25 promethazine 12.5 mg tablet See Rx Instructions PO Q6H PRN 09/05/25 nausea and vomiting #30 tabs tramadol 50 mg tablet 50 mg PO Q6H PRN breakthroug h 09/05/25 pain, moderate #120 tabs Allergies Allergy/AdvReac Type Severity Reaction Status Date / Time clopidogrel (From Plavix) Allergy Severe Hives Verified 10/15/25 11:24 amoxicillin (AMOXICILLIN) Allergy Unknown Unknown Verified 10/15/25 11:24 allergy reaction codeine (CODEINE) AdvReac Mild STOMACH Verified 10/15/25 11:24 CRAMPS morphine (MORPHINE) AdvReac Mild STOMACH Verified 10/15/25 11:24 CRAMPS oxycodone (From Percocet) AdvReac Mild STOMACH Verified 10/15/25 11:24 CRAMPS PFSH PFSH Disclaimer: The information contained in this section may have been updated after the patient was seen, as this information can be updated by other users. 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 Encounter for wound care DKA (diabetic ketoacidosis) Fracture of toe of right foot Diarrhea Nausea & vomiting Typical angina Encounter for immunization Presence of external cardiac defibrillator Takotsubo cardiomyopathy Keratosis Encounter for wound care Pre-ulcerative calluses Diabetic foot Ulcer of right heel Fracture of foot with nonunion Retained orthopedic hardware Onychogryphosis Onychodystrophy Keratosis Ulcer of right foot due to type 2 diabetes mellitus Ulcer of left foot due to type 2 diabetes mellitus Type 2 diabetes mellitus with Charcot's joint of left foot Obesity, Class III, BMI 40-49.9 (morbid obesity) Migraine Osteoarthritis History of diverticulitis History of cataract History of left heart catheterization Recurrent major depression resistant to treatment Blood culture positive for microorganism Anemia HTN (hypertension) Type 2 diabetes mellitus with diabetic neuropathy, with long-term current use of insulin History of myocardial infarction Hyperlipemia CAD (coronary artery disease) Hx MRSA infection Essential hypertension Vitamin D deficiency Surgical History Status post foot surgery H/O shoulder surgery Hx of BKA History of appendectomy History of cholecystectomy History of hysterectomy History of hand surgery -bilateral hands History of foot surgery -on both feet -for Charcot's joint repairs Family History Other Cancer Heart attack Hyperlipidemia Hypertension Stroke Social History Smoking Status: Unknown if ever smoked smoking status stop date: 07/17/2023 second hand exposure: No alcohol intake: never counseling given: No substance use type: denies use counseling given: No current occupational status: disabled Travel in the last 8 weeks?: None adopted: No caregiver/support person: No foster care: No household members: children housing: house lives independently: Yes marital status: number of children: 1 number of grandchildren: 0 education level: high school 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; 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 current occupational exposures/hazards: Yes pets and animals: Yes pets and animals: cat(s) Hx Recent Travel: No sexually active: No caffeine: Yes physical activity: none dyana/episcopal: Confucianism special dyana needs: No working smoke detector in home: Yes fire extinguisher in home: Yes carbon monox detector in home: Yes firearms in home: No do you feel safe at home: Yes victim of physical abuse: No victim of emotional abuse: No victim of sexual abuse: No would you like helpful sources: No Have you lived/traveled outside [place] in past 30 days?: No Contact w/someone who lives/traveled outside US past 30 days?: No Exposure to someone with infectious disease in past 14 days?: No Do you have a fever (greater than 100.4 F or 38 C)?: No Have you tested positive for COVID-19?: No Exposed to someone with COVID-19 in past 14 days?: No Do you have a sore throat?: No Do you have a cough?: No Do you have any weakness?: No Do you have any diarrhea?: No Are you experiencing any unusual bleeding?: No Do you have any muscle aches/pain?: No Do you have any abdominal pain?: No Are you experiencing loss of taste or smell?: No Other 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 Have you received the Flu Vaccine for this season: No Have you received the Pneumonia Vaccine: Yes ROS Obtained: Yes All systems reviewed & no additional complaints except as documented Physical Exam General General appearance: alert and in no apparent distress Head Head exam: atraumatic, normocephalic and normal inspection Eye Eye exam: Present normal appearance, PERRL and EOMI ENT ENT exam: Present normal exam, normal oropharynx, mucous membranes moist, TM's normal bilaterally and normal external ear exam Neck Neck exam: Present normal inspection, full ROM and trachea midline; Absent meningismus or lymphadenopathy Chest Chest inspection: Present normal inspection and symmetric chest wall rise; Absent tenderness Respiratory Respiratory exam: Present normal lung sounds bilaterally; Absent respiratory distress Cardiovascular Cardiovascular exam: Present regular rate and normal rhythm; Absent JVD Abdominal Exam Abdominal exam: Present soft and normal bowel sounds; Absent distention, tenderness or guarding Extremities Exam Extremities exam: Present other (Surgically absent lower extremity, scabbed wounds right anterior tibia ) Back Exam Back exam: Present tenderness Neurological Exam Neurological exam: Present alert and oriented X3 Psychiatric Psychiatric exam: Present normal affect and normal mood Skin Skin exam: Present other (per extremity exam, no significant warmth or erythema) Medical Decision Making Medical Records Medical records reviewed: Yes I reviewed the patient's medical records. Screening: Per USPSTF and CDC recommendations, given the prevalence of disease in our region, it is our hospital?s policy to screen for HIV and viral Hepatitis for all patients aged 18 and over and those with ongoing risk factors. Harsha Inquiry Pt receiving controlled substance: No Vital Signs: 10/15/25 07:26 10/15/25 07:26 10/15/25 07:30 Temperature 99.7 F H 99.7 F H Temperature Source Oral Pulse Rate 110 H 106 H Pulse Rate [Right] 110 H Respiratory Rate 20 20 12 Blood Pressure 145/111 H 158/91 H Blood Pressure [Right Arm] 145/111 H Blood Pressure Mean [Right Arm] 122 02 Sat by Pulse Oximetry 95 95 97 Oxygen Delivery Method Room Air Room Air 10/15/25 08:00 10/15/25 08:30 10/15/25 09:00 Temperature Temperature Source Pulse Rate 114 H 110 H 107 H Pulse Rate [Right] Respiratory Rate 18 15 25 H Blood Pressure 151/116 H 153/92 H Blood Pressure [Right Arm] Blood Pressure Mean [Right Arm] 02 Sat by Pulse Oximetry 95 94 L 91 L Oxygen Delivery Method Room Air Room Air Room Air 10/15/25 09:33 10/15/25 10:00 10/15/25 10:30 Temperature Temperature Source Pulse Rate 102 H 107 H 105 H Pulse Rate [Right] Respiratory Rate 18 22 11 L Blood Pressure 153/91 H 147/104 H Blood Pressure [Right Arm] Blood Pressure Mean [Right Arm] 02 Sat by Pulse Oximetry 94 L 94 L 94 L Oxygen Delivery Method Room Air Room Air Room Air 10/15/25 10:37 10/15/25 11:00 Temperature 97.9 F Temperature Source Pulse Rate 106 H Pulse Rate [Right] Respiratory Rate 18 Blood Pressure 147/104 H Blood Pressure [Right Arm] Blood Pressure Mean [Right Arm] 02 Sat by Pulse Oximetry 97 Oxygen Delivery Method Room Air Lab Data Lab results reviewed: Yes I reviewed the patient's lab results. Lab Results 10/15/25 06:53: WBC 16.9 H, RBC 5.42 H, Hgb 14.9, Hct 44.6, MCV 82.3, MCH 27.5, MCHC 33.4, RDW 14.1, Plt Count 333, MPV 11.2 H, Neut % (Auto) 82.5 H, Lymph % (Auto) 11.9, O'Brien % (Auto) 4.6, Eos % (Auto) 0.1, Baso % (Auto) 0.4, Neut # (Auto) 14.0 H, Lymph # (Auto) 2.0, O'Brien # (Auto) 0.8, Eos # (Auto) 0.0, Baso # (Auto) 0.1, PT 10.8, INR 0.97, APTT 23.1, D-Dimer 1.28 H, Sodium 126 L, Potassium 3.7, Chloride 94 L, Carbon Dioxide 18 L, Anion Gap 17.7 H, BUN 12, Creatinine 0.80, Estimated GFR 74, Est GFR ( Amer) 89, Glucose 515 H*, Calcium 9.6, Total Bilirubin 0.9, AST 24, ALT 23, Alkaline Phosphatase 125, T roponin I 0.04 H, Total Protein 8.2, Albumin 4.5, Globulin 3.7 H, Albumin/Globulin Ratio 1.2 10/15/25 08:02: VBG pH 7.38, VBG pCO2 35.8, VBG pO2 39.7, VBG HCO3 20.5 L, VBG Total CO2 21.6 L, VBG O2 Saturation 74.2 H, VBG Base Excess -4.7 L, VBG Lactic Acid 2.3 H 10/15/25 09:50: Troponin I 0.05 H 10/15/25 06:53 10/15/25 06:53 Orders (Tests/Meds): ED MEDICATIONS Generic Name Dose Route Start Last Admin Trade Name Freq PRN Reason Stop Dose Admin Enoxaparin Sodium 120 mg 10/15/25 11:01 10/15/25 11:38 Enoxaparin 120mg/0.8ml Syringe SUBCUT 11/14/25 10:59 120 mg Q12H PETE Administration Insulin Glargine 60 unit 10/15/25 11:00 Insulin Glargine 100 Units/Ml 3ml Flexpen SUBCUT 11/14/25 10:59 BID PETE Insulin Human Lispro 0 unit 10/15/25 11:00 Humalog 100 Units/Ml 10ml Vial (Ssi) SUBCUT 11/14/25 10:59 ACHS PETE Protocol Metoclopramide HCl 5 mg 10/15/25 16:30 Metoclopramide Hcl 10mg/2ml Vial IVP 11/14/25 16:29 ACHS PETE Pantoprazole Sodium 40 mg 10/15/25 21:00 Pantoprazole 40mg Tablet PO 11/14/25 20:59 HS PETE Sodium Chloride 10 ml 10/15/25 11:38 Sodium Chloride 0.9% 10ml Flush Syringe IV 11/14/25 11:37 NEEDED PRN Maintain IV Site Discontinued Medications Generic Name Dose Route Start Last Admin Trade Name Freq PRN Reason Stop Dose Admin Acetaminophen 1,000 mg 10/15/25 08:43 10/15/25 09:03 Acetaminophen 500mg Tab PO 10/15/25 08:44 1,000 mg ONCE ONE Administration Belladonna Alkaloids 60 ml 10/15/25 07:54 10/15/25 07:59 Belladonna Alkaloids 60 Ml Ml PO 10/15/25 07:55 60 ml ONCE ONE Administration Enoxaparin Sodium 120 mg 10/15/25 11:00 Enoxaparin 100mg/Ml Syringe 1 mg/kg (120 mg) 11/14/25 21:00 SUBCUT Q12H PETE Lactated Ringer's 1,000 mls @ 999 mls/hr 10/15/25 08:13 10/15/25 08:23 Lactated Ringer's 1000 Ml Bag IV 10/15/25 09:13 999 mls/hr .Q1H1M ONE Administration Iopamidol 70 ml 10/15/25 09:35 10/15/25 09:36 Iopamidol-370 (76%);100ml Bottle IV 10/15/25 09:36 70 ml ONCE ONE Administration Metoclopramide HCl 10 mg 10/15/25 12:02 Metoclopramide Hcl 10mg/2ml Vial IVP 10/15/25 12:03 ONCE ONE Ondansetron HCl 4 mg 10/15/25 07:25 10/15/25 07:58 Ondansetron 4mg/2ml Vial IV 10/15/25 07:26 4 mg ONCE ONE Administration Sodium Chloride 10 ml 10/15/25 09:35 10/15/25 09:36 Sodium Chloride 0.9% 10ml Syr (Rad Only) IV 10/15/25 09:36 10 ml ONCE ONE Administration Sodium Chloride 50 ml 10/15/25 09:35 10/15/25 09:36 0.9 % Sodium Chloride 50 Ml Vial IV 10/15/25 09:36 50 ml ONCE ONE Administration ORDERS Category Date Time Status CTA Chest [CT angio chest PE protocol] Stat Cat Scan 10/15/25 09:01 Completed XR chest portable Stat Exams 10/15/25 07:19 Completed Activated Partial Thrombo Time Stat Lab 10/15/25 06:53 Completed Complete Blood Count Auto Diff Stat Lab 10/15/25 06:53 Completed Comprehensive Metabolic Panel AMLAB Lab 10/16/25 06:00 Ordered Comprehensive Metabolic Panel Stat Lab 10/15/25 06:53 Completed D-Dimer Stat Lab 10/15/25 06:53 Completed Magnesium AMLAB Lab 10/16/25 06:00 Ordered Prothrombin Time INR Stat Lab 10/15/25 06:53 Completed Troponin I Q3H Lab 10/15/25 09:50 Completed Troponin I Q3H Lab 10/15/25 13:30 Ordered Troponin I Stat Lab 10/15/25 06:53 Completed VBG PH Stat Lab 10/15/25 08:03 Ordered VBG [Venous Blood Gas] Stat RT 10/15/25 08:02 Completed ECG Data Tracing #1: I reviewed this ECG and interpreted as documented below: mild tachycardia, no st elevation, deep brain stimulator interference evident, but no overt arrhythmia, no significant st changes Normal Sinus Rhythm: Yes Medical Decision Narrative: High glucose and low bicarb with dilutional hypona on metabolic panel vbg ordered patient became more nauseated through time in the ed without response to zofran, gi cocktail ordered, chest pain mildly improving troponin mildly elevated, getting second on reassessment chest pain and nausea resolved after gi cocktail vbg without acidosis, mild lactate elevation, suspect secondary to dehydration, she notes she hasn't been eating well as of late right leg reassessed, not warm, slight erythema around scabs, but not overtly infected in hassan or foot cxr without acute findings, comparabel and not significantly different from prior in June dimer elevated, CT PE ordered, patient remains hds ct pe positive for multiple segmental pe with right heart strain called hospitalist who requested discussing with osh for possible thrombectomy, osh did not recommended thrombectomy at this time, admitted to [facility] hospitalist Procedures Risk/Benefits of Procedure(s) Were Explained: Yes Critical Care Critical Care Time Critical Care Time: No
--- NOTE | 2025-10-15 07:22 | ECG_ITS ---
APPROVED REPORT Exam: Resting ECG HR:107 bpm ECG Measurements Heart Rate 107 AXES AK 366 P 146 QRSd 97 QRS -7 QT 353 T 61 QTc 416 Conclusion ELECTRONIC ATRIAL PACEMAKER ELECTRONIC VENTRICULAR PACEMAKER ABNORMAL RHYTHM ECG UNCONFIRMED REPORT Electronically signed by : ALIX TEMPLE, 10/15/2025 23:03:33
--- OUTSIDE RECORDS SUMMARY | 2025-10-15 07:32 | XMS_ITS | Encounter Summary ---
Author Organization [employer] ([place], [place], [place], [place], [place]) Address [address] [place] [address] Care Team Providers Care Christmas Tree Farmer Name Role Phone Unavailable Primary Care Provider Unavailabl e Encounter Details Date Type Department Care Team (Late st Contact Info) Description 12/17/2019 Transcribed Document [facility] [place] Family Medicine [facility] [place] [address] ProviderEvangelista MD [facility] [place] [id number] Social History Tobacco Use Types Packs/Day Years Used Date Smoking Tobacco: Never Assessed Comments Unknown Sex and Gender Information Value Date Recorded Sex Assigned at Not on file Legal Sex Female 3:10 PM CDT Gender Identity Not on file Sexual Orientation Not on file documented as of this encounter Miscellaneous Notes * Cerner Conversion Note - Evangelista ProviderMD - 12/17/2019 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 She has been utilizing [place] 10/325 mg four times daily dosing, Tramadol [...]
--- OUTSIDE RECORDS SUMMARY | 2025-10-15 07:32 | XMS_ITS | Encounter Summary ---
Author Organization [employer] ([place], [place], [place], [place], [place]) Address [address] [place] [address] Care Team Providers Care Coil Tester Name Role Phone Unavailable Primary Care Provider Unavailabl e Encounter Details Date Type Department Care Team (Late st Contact Info) Description 10/14/2019 Transcribed Document [facility] [place] [facility] [place] [facility] [place] [address] ProviderEvangelista MD [address] [place] [phone] Social History Tobacco Use Types Packs/Day Years Used Date Smoking Tobacco: Never Assessed Comments Unknown Sex and Gender Information Value Date Recorded Sex Assigned at Not on file Legal Sex Female 3:10 PM CDT Gender Identity Not on file Sexual Orientation Not on file documented as of this encounter Miscellaneous Notes * Cerner Conversion Note - Evangelista ProviderMD - 10/14/2019 12:06 PM RN MED SURG Patient: BEE COLON Age: 49 Years Sex: [...] 75% pain relief at this time with [place] 10/325 mg four times daily dosing, Tramadol [...] implantation with good coverage. 4. History of [id number] involving the bilateral feet. 5. Left foot [...]
--- OUTSIDE RECORDS SUMMARY | 2025-10-15 07:32 | XMS_ITS | Encounter Summary ---
Author Organization [employer] ([place], [place], [place], [place], [place]) Address [address] [place] [address] Care Team Providers Care Training Facilitator Name Role Phone Unavailable Primary Care Provider Unavailabl e Encounter Details Date Type Department Care Team (Late st Contact Info) Description 03/21/2020 Transcribed Document [facility] [place] Family Medicine [facility] [place] [address] ProviderEvangelista MD [address] [place] [phone] Social History Tobacco Use Types Packs/Day Years [...] p.o. q h.s., Tramadol 50 mg q.i.d., [place] 10 mg q 6 h. She denies any side effects. She is in agreement with the above plan. We will see her back in follow-up in two months. Anahy Fraser M.D. BO/maurice documented in this encounter Plan of Treatment Not on file documented as of this encounter Visit Diagnoses Not on filedocumented in this encounter
--- OUTSIDE RECORDS SUMMARY | 2025-10-15 07:32 | XMS_ITS | Clinical Summary ---
Author Organization [facility] Address [address] [place] [address] Phone Care Team Providers Care Safety Technician Name Role Phone Kaity Emerson Unavailable Unavailable Conditions or Problems Problem Name Problem Code Onset Date Status Entry Date Provider Comment Standard Description Annotate Candidiasis , vaginal 44150377 (SNOMED CT) 03/18 Active 03/19 Charlene W Candidiasis of vagina Thrush, oral 07667122 (SNOMED CT) 03/11 Inactive 03/11 Charlene W Candidiasis of mouth Problem excluded fro m report: Other obesity due to excess calories 701043253 (SNOMED CT) 03/15 Active 03/15 Cindi Traore Simple obesity Thrush, oral 79480301 (SNOMED CT) 03/11 Active 03/11 Jeet Rene MD Candidiasis of mouth Thrush, oral 36455222 (SNOMED CT) 03/11 Removed 03/11 Elizabeth Sims Candidiasis of mouth Hx of left TMA 49812501130 142978 (SNOMED CT) 03/04 Active 03/01 Charlene W History of amputation of left lesser toe DM non-pressur e chronic ulcer of left foot, plantar surface, with bone involvement without evidence of necrosis (E11.621) 406724642 (SNOMED CT) 03/01 Inactive 03/01 Luna Hughes Chronic ulcer of foot Chronic osteomyelit is, left foot M86.672 (ICD-10-CM) 03/01 Active 03/01 Luna Hughes Other chronic osteomyelitis, left ankle and foot Coronary artery disease (CAD) 71088755 (SNOMED CT) 03/01 Active 03/01 Luna Hughes Coronary arteriosclerosi s Benign Essential Hypertensio n 2519595 (SNOMED CT) 03/01 Active 03/01 Luna Hughes Benign essential hypertension Cellulitis, foot, left 729851319 (SNOMED CT) 03/01 Active 03/01 Luna Hughes Cellulitis of foot DM Type II E11.9 (ICD-10-CM) 03/01 Active 03/01 Luna Hughes Type 2 diabetes mellitus without complications BMI 45.0-49.9 Z68.42 (ICD-10-CM) 12/14 Resolved 12/14 Luna Hughes Body mass index [BMI] 45.0-49.9, adult MORBID OBESITY 267559992 (SNOMED CT) 12/14 Resolved 12/14 Luna Hughes Morbid obesity TOBACCO USER 706059586 (SNOMED CT) 12/03 Resolved 12/03 Luna Hughes Tobacco user C. DIFF COLITIS A04.7 (ICD-10-CM) 12/03 Resolved 12/03 Luna Hughes Enterocolitis due to Clostridium difficile DM II, UNCONTROLLE D E11.65 (ICD-10-CM) 12/03 Resolved 12/03 Luna Hughes Type 2 diabetes mellitus with hyperglycemia FEVER 296031025 (SNOMED CT) 12/03 Resolved 12/03 Luna Saul Fever VAGINAL CANDIDIASIS 06535163 (SNOMED CT) 12/03 Resolved 12/03 Luna Saul Candidiasis of vagina DIVERTICULI TIS OF SIGMOID COLON 220273692 (SNOMED CT) 12/03 Resolved 12/03 Luna Saul Diverticulitis of sigmoid colon BMI 45.0-49.9 Z68.42 (ICD-10-CM) 12/14 Removed 12/14 Charlene W Body mass index [BMI] 45.0-49.9, adult MORBID OBESITY 929532648 (SNOMED CT) 12/14 Removed 12/14 Charlene W Morbid obesity DM II, UNCONTROLLE D E11.65 (ICD-10-CM) 12/03 Removed 12/03 Charlene W Type 2 diabetes mellitus with hyperglycemia DIARRHEA OF PRESUMED INFECTIOUS ORIGIN 69994134 (SNOMED CT) 12/03 Correction 12/03 Charlene W Diarrhea of presumed infectious origin ABDOMINAL PAIN, LEFT LOWER QUADRANT 461064941 (SNOMED CT) 12/03 Correction 12/03 Charlene W Left lower quadrant pain WEAKNESS 44257917 (SNOMED CT) 12/03 Correction 12/03 Charlene W Asthenia WEIGHT LOSS 010392939 (SNOMED CT) 12/03 Correction 12/03 Charlene W Abnormal weight loss DIARRHEA 74185841 (SNOMED CT) 12/03 Correction 12/03 Charlene W Diarrhea DM TYPE II E11.9 (ICD-10-CM) 12/03 Correction 12/03 Luna Hughes Type 2 diabetes mellitus without complications TOBACCO USER 016702235 (SNOMED CT) 12/03 Removed 12/03 Luna Saul Tobacco user WEIGHT LOSS 604073415 (SNOMED CT) 12/03 Removed 12/03 Luna Saul Abnormal weight loss WEAKNESS 78387430 (SNOMED CT) 12/03 Removed 12/03 Luna Saul Asthenia FEVER 419020571 (SNOMED CT) 12/03 Removed 12/03 Luna Saul Fever C. DIFF COLITIS A04.7 (ICD-10-CM) 12/03 Removed 12/03 Luna Saul Enterocolitis due to Clostridium difficile DIARRHEA OF PRESUMED INFECTIOUS ORIGIN 81424894 (SNOMED CT) 12/03 Removed 12/03 Luna Saul Diarrhea of presumed infectious origin DIARRHEA 63222772 (SNOMED CT) 12/03 Removed 12/03 Luna Saul Diarrhea DIVERTICULI TIS OF SIGMOID COLON 775498819 (SNOMED CT) 12/03 Removed 12/03 Luna Saul Diverticulitis of sigmoid colon ABDOMINAL PAIN, LEFT LOWER QUADRANT 255916918 (SNOMED CT) 12/03 Removed 12/03 Luna Saul Left lower quadrant pain VAGINAL CANDIDIASIS 59907388 (SNOMED CT) 12/03 Removed 12/03 Luna Hughes Candidiasis of vagina Medications Medication Instructions Start Date Stop Date Generic Name NDC Provider DOXYCYCLINE MONOHYDRATE 100 MG CAPS Take one capsule by mouth twice daily DOXYCYCLINE MONOHYDRATE 70881492625 Jeet Rene MD TEFLARO SOLR 600mg IV Q 12hrs x 4wks Bioscrip/Dose, line care, labs [facility] CEFTAROLINE FOSAMIL SOLR [id number] Kaity Emerson DOXYCYCLINE MONOHYDRATE 100 MG CAPS Take one capsule by mouth twice daily DOXYCYCLINE MONOHYDRATE 53136195592 Jeet Rene MD FLUCONAZOLE 100 MG TABS Take two tablets by mouth once daily FLUCONAZOLE 93035294809 Jeet Rene MD DIFLUCAN 100 MG ORAL TABLET Take two tablets by mouth once daily FLUCONAZOLE 01961655704 Jeet Rene MD FLAGYL 500 MG ORAL TABLET Take one tablet by mouth three times daily METRONIDAZOLE 57990513864 Jeet Rene MD ONDANSETRON 4 MG TBDP Take one tablet by mouth every 12 hours ONDANSETRON 67019400241 Jeet Rene MD TEFLARO SOLR 600mg IV Q 12hrs x 4wks Bioscrip/Dose, line care, labs [facility] CEFTAROLINE FOSAMIL SOLR [id number] Kaity Ki DAPTOMYCIN SOLR 750mg IV daily x 6wks HH Bioscrip/Dose, line care labs LID DAPTOMYCIN SOLR [id number] Kaity Ki CEFEPIME HCL SOLN 2gm IV q 12hrs x 6wks HH Bioscrp, Dose, line care, labs LID CEFEPIME HCL SOLN [id number] Kaity Emerson FLUCONAZOLE 200 MG TABS Take one tablet by mouth daily FLUCONAZOLE 59261418374 Jeet Rene MD CEFEPIME HCL SOLN 2gm IV q 12hrs x 6wks Bioscrp, Dose, line care, labs [facility] CEFEPIME HCL SOLN [phone] Kaity Emerson DAPTOMYCIN SOLR 750mg IV daily x 6wks Bioscrip/Dose, line care labs [facility] DAPTOMYCIN SOLR [id number] Kaity Emerson FLAGYL 500 MG ORAL TABLET Take one tablet by mouth three times daily METRONIDAZOLE 72055521272 Jeet Rene MD TETRACYCLINE HCL 500 MG CAPS TETRACYCLINE HCL 15790255149 Vivek Alix HYDROMORPHONE HCL 2 MG TABS TAKE ONE TABLET BY MOUTH EVERY 4 HOURS NEEDED FOR moderate TO SEVERE pain MAY CAUSE DROWSINESS HYDROMORPHONE HCL 31345422940 Vivek D ONETOUCH ULTRA STRP USE 1 STRIP TO CHECK GLUCOSE THREE TIMES DAILY GLUCOSE BLOOD 79392399139 Vivek Thomson LACTINEX ORAL TABLET CHEWABLE one by mouth three times a day LACTOBACILLUS 05419058830 Jeet Rene MD FLAGYL 500 MG ORAL TABLET one by mouth three times a day x 2 weeks METRONIDAZOLE 95856504391 Jeet Rene MD LEVAQUIN 750 MG ORAL TABLET one by mouth daily x 2 weeks LEVOFLOXACIN 11713741446 Jeet Rene MD INVANZ (IJ) SOLUTION RECONSTITUTED 1 gm IV daily OPAT ERTAPENEM SODIUM SOLR 14338551877 Jeet Rene MD LANTUS 100 UNIT/ML SOLN INSULIN GLARGINE 68806245559 Aury Z DIFLUCAN TABLET FLUCONAZOLE TABS 33286498151 Aury Z INVANZ (IJ) SOLUTION RECONSTITUTED 1 gm IV daily OPAT ERTAPENEM SODIUM SOLR 04501976047 Peggy Sharma MD DIFLUCAN 200 MG ORAL TABLET take one daily for yeast infection FLUCONAZOLE 39756766413 Peggy Sharma MD LORTAB 10-500 MG ORAL TABLET HYDROCODONE-ACET AMINOPHEN 95290809618 Peggy Sharma MD NORCO TABS HYDROCODONE-ACET AMINOPHEN TABS 67407385295 Peggy Sharma MD LYRICA CAPS PREGABALIN CAPS 25909328805 Jahaira Merlos CYMBALTA CAPSULE DELAYED RELEASE PARTICLES DULOXETINE HCL CPEP 80862070318 Jahaira G LASIX TABS FUROSEMIDE TABS 67400901658 Jahaira G NORCO TABS HYDROCODONE-ACET AMINOPHEN TABS 23344616152 Jahaira G ATENOLOL TABS ATENOLOL TABS 96712335616 Jahaira G GLYBURIDE TABS GLYBURIDE TABS 72515725101 Jahaira Merlos INVANZ (IJ) SOLUTION RECONSTITUTED ERTAPENEM SODIUM SOLR 19036357501 Jahaira Merlos DIFLUCAN TABLET FLUCONAZOLE TABS 38590758737 Jahaira Merlos Medications Administered No information available. 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 education, guidance, and counseling [...] CPT-wclc Weekly Central Line Care 202 11/21/06 CPT-11275 CMP [id number] CBC with Differential 2020 CPT-99110 C- reactive protein CPT-87244 Sedimentation Rate (ESR) 202 11/21/06 CPT-ca Continue IV antibiotics 2020 CPT-Cooral Continue oral antibiotics 20 05/04/24 CPT-cwl Weekly Labs (Continue) 04/08 CPT-wclc Weekly Central Line Care 202 11/20/23 CPT-52812 CMP CPT-98825 CBC w/o Differential [id number], [id number] CPK CPT-21827 Sedimentation Rate (ESR) 202 11/20/23 CPT-93544 C- reactive protein CPT-46066 CMP CPT-64498 C- reactive protein CPT-03294 Sedimentation Rate (ESR) 202 11/20/09 CPT-ca Continue IV antibiotics 2020 CPT-wpc Weekly PICC Line Care 03/18 CPT-cwl Weekly Labs (Continue) 03/18 CPT-24020 CMP CPT-12132 CBC w/o Differential [id number], [id number] CPK CPT-59871 Sedimentation Rate (ESR) 202 11/20/02 CPT-ca Continue IV antibiotics 2020 CPT-wpc Weekly PICC Line Care 03/11 CPT-cwl Weekly Labs (Continue) 03/11 CPT-32344 CMP CPT-23998 CBC w/o Differential [id number], [id number] CPK CPT-09940 Sedimentation Rate (ESR) 202 11/19/25 CPT-kayli New IV antibiotic CPT-cwl Weekly Labs (Continue) 03/04 CPT-wclc Weekly Central Line Care 202 11/19/18 CPT-12716 CMP CPT-60375 CBC w/o Differential CPT-97352 C- reactive protein CPT-17555 Sedimentation Rate (ESR) 202 11/19/18 CPT-sl STAT Labs CPT-DC Discontinue IV antibiotics 2 CPT-07622 BMP CPT-93918 CBC w/o Differential CPT-kayli New IV antibiotic CPT-J1335 Ertapenem CPT-14456 CMP CPT-68253 CBC with Differential 12/03 CPT-cdpcr C-Diff PCR [...]
--- OUTSIDE RECORDS SUMMARY | 2025-10-15 07:33 | XMS_ITS | Data Portability ---
Author Organization [facility] TISHA Ac FAIRCHANCE CLOSED Address [address] [place] [address] Assessment No assessment recorded. Plan of Treatment Reminders Order Date Submit Date Provider Last Modified By Organization Details Last Modified Time Details Appointments None recorded. Lab glucose, fingerstic k, blood 2023 024 [facility], [address] [place] [address], [phone], 4 15:21:02 hemoglobin A1C, fingerstic k 2023 024 [facility], [address] [place] [address], [address], 4 15:21:03 BMP, serum or plasma 2023 024 [facility], [address] [place] [address], [address], 4 16:57:00 microalbum in/creatin ine, mass ratio, urine 2023 024 [facility], [address] [place] [address], [address], 4 17:04:15 lipid panel, serum 2023 024 [facility], [address] [place] [address], [address], 4 16:56:58 hepatic function panel, serum 2023 024 [facility], [address] [place] [address], [address], 4 16:56:57 glucose, fingerstic k, blood 2022 023 [facility], [address] [place] [address], [address], 3 15:09:56 hemoglobin A1C, fingerstic k 2022 023 [facility], [address] [place] [address], [address], 3 15:09:56 microalbum in/creatin ine, mass ratio, urine [email or web address] [facility], [address] [place] [address], [address], 4 08:03:27 BMP, serum or plasma [email or web address], [address] [place] [address], [address], 4 08:03:28 lipid panel, serum [email or web address] [facility], [address] [place] [address], [address], 4 08:03:28 hepatic function panel, serum [email or web address] [facility], [address] [place] [address], [address], 4 08:03:28 glucose, fingerstic k, blood 2022 023 [facility], [address] [place] [address], [address], 3 14:55:56 glucose, fingerstic k, blood 2022 023 [facility], [address] [place] [address], [address], 3 15:00:30 hemoglobin A1C, fingerstic k 2022 023 [facility], [address] [place] [address], [address], 3 15:00:30 microalbum in/creatin ine, mass ratio, urine [email or web address] [facility], [address] [place] [address], [address], 4 09:22:02 BMP, serum or plasma [address] [facility], [address] [place] [address], [address], 4 09:22:02 lipid panel, serum [address] [facility], [address] [place] [address], [address], 4 09:22:01 hepatic function panel, serum [email or web address] [facility], [address] [place] [address], [address], 4 09:22:01 glucose, fingerstic k, blood 2021 022 [facility], [address] [place] [address], [address], 2 14:40:04 hemoglobin A1C, fingerstic k 2021 022 [facility], [address] [place] [address], [address], 2 14:40:03 Referral None recorded. Procedures None recorded. Surgeries None recorded. Imaging None recorded. Medication Orders Novolog FlexPen U-100 Insulin aspart 100 unit/mL (3 mL) subcutaneo us 2023 024 [facility], [address], [place], [place], [address], 4 15:25:01 Farxiga 10 mg tablet 2023 024 [facility], [address], [place], [place], [address], 4 15:25:02 Lantus Solostar U-100 Insulin 100 unit/mL (3 mL) subcutaneo us pen 2023 024 [facility], [address], [place], [place], [address], 4 15:24:56 Ozempic 1 mg/dose (4 mg/3 mL) subcutaneo us pen injector 2023 024 [email or web address], [address], [place], [place], [address], 4 15:58:04 Lantus Solostar U-100 Insulin 100 unit/mL (3 mL) subcutaneo us pen 2022 023 [facility], [address], [place], [place], [address], 3 15:12:29 Humalog KwikPen (U-100) Insulin 100 unit/mL subcutaneo us 2022 023 [email or web address] 150 [facility], [address], [place], [place], [address], 3 14:40:27 Victoza 3-Ajay 0.6 mg/0.1 mL (18 mg/3 mL) subcutaneo us pen injector 2022 023 [facility], [address], [place], [address], 3 15:12:31 Farxiga 10 mg tablet 2022 023 [facility], [address], [place], [address], 3 15:05:58 Humalog KwikPen (U-100) Insulin 100 unit/mL subcutaneo us [address], [address], [place], [address], 3 14:40:27 Lantus Solostar U-100 Insulin 100 unit/mL (3 mL) subcutaneo us pen 2022 023 [facility], [address], [place], [address], 3 15:05:59 Victoza 3-Ajay 0.6 mg/0.1 mL (18 mg/3 mL) subcutaneo us pen injector 2022 023 [facility], [address], [place], [address], 3 15:06:03 Farxiga 10 mg tablet 2022 023 [facility], [address], [place], [address], 3 15:47:06 Humalog KwikPen (U-100) Insulin 100 unit/mL subcutaneo us [address] [facility], [address], [place], [address], 3 14:40:27 Lantus Solostar U-100 Insulin 100 unit/mL (3 mL) subcutaneo us pen 2022 023 [facility], [address], [place], [address], 3 15:06:19 Victoza 3-Ajay 0.6 mg/0.1 mL (18 mg/3 mL) subcutaneo us pen injector 2022 023 [facility], [address] [facility] [address], [place], [address], 15:06:17 Farxiga 10 mg tablet 2021 022 [facility], [address] [facility] [address], [place], [address], 14:41:29 Humalog KwikPen (U-100) Insulin 100 unit/mL subcutaneo us [address] [facility], [address] [facility] [address], [place], [address], 3 14:40:27 Lantus Solostar U-100 Insulin 100 unit/mL (3 mL) subcutaneo us pen 2021 022 [facility], [address] [facility] [address], [place], [address], 2 14:41:28 Victoza 3-Ajay 0.6 mg/0.1 mL (18 mg/3 mL) subcutaneo us pen injector 2021 022 [facility], [address] [facility] [address], [place], [address], 2 14:41:28 Patient TargetsNo targets recorded. Patient InstructionsNo instructions recorded. Reason for Referral None Reported. Results Created Date Observation Date Name Description Value Unit Range Abnormal Flag Note LastModifiedBy Organization Detail LastModifiedTime 09/23/20 22 09/23/2022 hemog lobin A1C, finge rstic k hemoglobin A1C % 8.7 % 4.0 - 5.6 Not Available [facility] [address], [address], 09/23/2022 14:10:19 09/23/20 22 09/23/2022 gluco se, finge rstic k, blood glucose, fingerstick 159 mg/dL 70 - 100 Not Available [facility] [address], [address], 09/23/2022 14:09:55 12/30/19 23 12/30/2022 hemog lobin A1C, finge rstic k hemoglobin A1C % 8.1 % 4.0 - 5.6 Not Available [facility] [address], [address], 12/30/2022 14:52:49 12/30/19 23 12/30/2022 gluco se, finge rstic k, blood glucose, fingerstick 214 mg/dL 70 - 100 Not Available [facility] [address], [address], 12/30/2022 14:52:14 05/06/20 23 05/06/2023 gluco se, finge rstic k, blood glucose, fingerstick 218 mg/dL 70 - 100 Not Available [facility] [address], [address], 05/06/2023 14:19:19 09/02/20 23 09/02/2023 hemog lobin A1C, finge rstic k hemoglobin A1C % 9.6 % 4.0 - 5.6 Not Available [facility] [address], [address], 09/02/2023 14:20:15 09/02/20 23 09/02/2023 gluco se, finge rstic k, blood glucose, fingerstick 313 mg/dL 70 - 100 Not Available [facility] [place] [address] [place] [address], [address], 09/02/2023 14:20:00 12/24/19 24 12/24/2023 HEPAT IC (LIVE R) PANEL AST 16 U/L 0-32 normal Not Available [facility] [address] [place] [address], [address], 12/24/2023 16:56:57 12/24/19 24 12/24/2023 HEPAT IC (LIVE R) PANEL ALT 12 U/L 0-33 normal Not Available [facility] [address] [place] [address], [address], 12/24/2023 16:56:57 12/24/19 24 12/24/2023 HEPAT IC (LIVE R) PANEL alkaline phosphatase 95 U/L 30-121 normal Not Available [facility] [address] [place] [address], [address], 12/24/2023 16:56:57 12/24/19 24 12/24/2023 HEPAT IC (LIVE R) PANEL total protein 7.8 g/dL 6.4-8. 3 normal Not Available [facility] [address] [place] [address], [address], 12/24/2023 16:56:57 12/24/19 24 12/24/2023 HEPAT IC (LIVE R) PANEL albumin 3.9 g/dL 3.5-5. 2 normal Not Available [facility] [address] [place] [address], [address], 12/24/2023 16:56:57 12/24/19 24 12/24/2023 HEPAT IC (LIVE R) PANEL bilirubin, total 0.2 mg/dL 0.1-1. 2 normal Not Available [facility] [address] [place] [address], [address], 12/24/2023 16:56:57 12/24/19 24 12/24/2023 HEPAT IC (LIVE R) PANEL bilirubin, direct <0.2 mg/dL 0.0-0. 3 normal Not Available [facility] [address] [place] [address], [address], 12/24/2023 16:56:57 12/24/19 24 12/24/2023 HEPAT IC (LIVE R) PANEL bilirubin, indirect see below mg/dL _(adeline c) 0.0-1. 0 normal Unabl e to calcu late Indir ect Bilir ubin. Not Available [facility] [address] [place] [address], [address], 12/24/2023 16:56:57 12/24/19 24 12/24/2023 LIPID PROFI LE HDL cholesterol 36 mg/dL 50-242 low Not Available [facility] [address] [place] [address], [address], 12/24/2023 16:56:58 12/24/19 24 12/24/2023 LIPID PROFI LE triglyceride s 203 mg/dL 0-149 high TRIGL YCERI DE RANGE S JACK L: < 150 BORDE RLINE HIGH: 150 - 199 HIGH: 200 - 499 VERY HIGH: > OR = 500 Not Available [facility] [address] [place] [address], [address], 12/24/2023 16:56:58 12/24/19 24 12/24/2023 LIPID PROFI LE cholesterol 107 mg/dL 0-199 normal IRMA STERO L (TOTA L) RANGE S KATHY ABLE: < 200 BORDE RLINE : 200 - 239 HIGHE R RISK: > 239 Not Available [facility] [address] [place] [address], [address], 12/24/2023 16:56:58 12/24/19 24 12/24/2023 LIPID PROFI LE LDL cholesterol 30 mg/dL _(adeline c) 0-99 normal LDL IRMA STERO L RANGE S OPTIM AL: < 100 NEAR/ ABOVE OPTIM AL: 100 - 129 BORDE RLINE HIGH: 130 - 159 HIGH: 160 - 189 VERY HIGH: > OR = 190 Not Available [facility] [address] [place] [address], [address], 12/24/2023 16:56:58 12/24/19 24 12/24/2023 BASIC METAB OLIC PANEL glucose 117 mg/dL 74-100 high Not Available [facility] [address] [place] [address], [address], 12/24/2023 16:57:00 12/24/19 24 12/24/2023 BASIC METAB OLIC PANEL blood urea nitrogen 17 mg/dL 6-20 normal Not Available [facility] [address] [place] [address], [address], 12/24/2023 16:57:00 12/24/19 24 12/24/2023 BASIC METAB OLIC PANEL creatinine 1.13 mg/dL 0.50-0 .95 high Not Available [facility] [address] [place] [address], [address], 12/24/2023 16:57:00 12/24/19 24 12/24/2023 BASIC METAB OLIC PANEL BUN/creatini ne ratio 15 (calc ) 10-20 normal Not Available [facility] [address] [place] [address], [address], 12/24/2023 16:57:00 12/24/19 24 12/24/2023 BASIC METAB OLIC PANEL sodium 139 mmol/ L 136-14 5 normal Not Available [facility] [address] [place] [address], [address], 12/24/2023 16:57:00 12/24/19 24 12/24/2023 BASIC METAB OLIC PANEL potassium 4.6 mmol/ L 3.4-5. 0 normal Not Available [facility] [address] [place] [address] [place], [address], 12/24/2023 16:57:00 12/24/19 24 12/24/2023 BASIC METAB OLIC PANEL chloride 105 mmol/ L 98-107 normal Not Available [facility] [address] [place] [address], [address], 12/24/2023 16:57:00 12/24/19 24 12/24/2023 BASIC METAB OLIC PANEL carbon dioxide 24 mmol/ L 22-31 normal Not Available [facility] [address] [place] [address], [address], 12/24/2023 16:57:00 12/24/19 24 12/24/2023 BASIC METAB OLIC PANEL anion gap 10 (calc ) 7-25 normal Not Available [facility] [address] [place] [address], [address], 12/24/2023 16:57:00 12/24/19 24 12/24/2023 BASIC METAB OLIC PANEL calcium 9.3 mg/dL 8.6-10 .2 normal Not Available [facility] [address] [place] [address], [address], 12/24/2023 16:57:00 12/24/19 24 12/24/2023 BASIC METAB OLIC PANEL GFR 57 >= 60 abnormal NOT E New calcu latio n for GFR (CKD- EPI 2020) is formu lated witho ut race adjus tment facto rs at the recom menda tion of the [employer] at[employer] and Ameri stevo Mike[employer] ty of Nephr ology . This calcu latio n has not been valid ated in pregn ant women . For pedia philipp damone nts refer to https ://cortes flanagan.sandy art/pr leny joy s/KDO QI/gf r_cal culat orPed Not Available [facility] [address] [place] [address], [address], 12/24/2023 16:57:00 02/08/20 24 12/24/2023 MICRO ALBUM IN/CR EAT RATIO microalbumin , random 12 mg/L 0-19 normal Not Available [facility] [address] [place], [address], 12/24/2023 17:04:15 12/24/19 24 12/24/2023 MICRO ALBUM IN/CR EAT RATIO creatinine,u r,random 94 mg/dL normal NO JACK L RANGE ESTAB LISHE D FOR RANDO M URINE . Not Available [facility] [address] [place], [address], 12/24/2023 17:04:15 12/24/19 24 12/24/2023 MICRO ALBUM IN/CR EAT RATIO MA/creatinin e ratio see below mcg/m g_cre at 0-29 normal Unabl e to calcu late micro album in/cr eatin ine ratio . Not Available [facility] [address] [place], [address], 12/24/2023 17:04:15 12/24/19 24 12/24/2023 hemog lobin A1C, finge rstic k hemoglobin A1C % 9.6 % 4.0 - 5.6 Not Available [facility] [place] [place] [address] [place] [address], [address], 12/24/2023 14:59:59 12/24/19 24 12/24/2023 gluco se, finge rstic k, blood glucose, fingerstick 168 mg/dL 70 - 100 Not Available [facility] [address] [place], [address], 12/24/2023 14:59:46 Result Notes None recorded. Problems No Known Problems Medical Equipment None Reported. Allergies Allergen ID Allergen Name Allergen Category Reaction Reaction Severity Criticality Documentation Date Start Date Code Code System Note Provider Name and Address Organization Details Recorded Time 816160 morphine sulfate medicatio n Not available Not available Not available 10/09/20162006 43114 RxNorm Comme nt: Creat ed By: Daniel eth;C reate d Date: 2006 3:24: 04 PM; Not Available [facility] 6 11:27:47 016418 codeine medicatio n Not available Not available Not available 10/09/20162006 2670 RxNorm Comme nt: Creat ed By: Daniel eth;C reate d Date: 2006 3:23: 21 PM; Not Available [facility] 6 13:16:43 112513 amoxicill in medicatio n Not available Not available Not available 06/12/2021 723 RxNorm Suzanna Mouser [facility] 14:18:35 766617 acetamino phen / oxycodone medicatio n Not available Not available Not available 06/12/2021 11231 3 RxNorm Suzanna Mouser [facility] 14:18:49 Medications Name Sig Start [...] moderate TO SEVERE pain MAY CAUSE DROWSINE 01/08 completed Not Available Not Available Not [...] index (BMI) Body weight Heart rate Systolic And Diastolic Provider Name and Address Organization Details Last Updated DateTime 12/24/2023 167.64 cm 46 kg/m2 836018.8 3 g 95 /min 124/62 mm[Hg] [facility] 12/24/2023 14:57:32 Date Recorded Body height Body mass index (BMI) Body weight Heart rate Systolic And Diastolic Provider Name and Address Organization Details Last Updated DateTime 12/30/2022 167.64 cm 46.8 kg/m2 565248.7 9 g 83 /min 130/76 mm[Hg] [facility] 14:47[facility]32 Date Recorded Body height Heart rate Systolic And Diastolic Provider Name and Address Organization Details Last Updated DateTime 05/06/2023 167.64 cm 91 /min 130/62 mm[Hg] Geovani David [facility] 05/06/2023 14:16:53 Date Recorded Body height Heart rate Systolic And Diastolic Provider Name and Address Organization Details Last Updated DateTime 09/02/2023 167.64 cm 90 /min 125/60 mm[Hg] [facility] 09/02/2023 14:18:55 Date Recorded Body height Body mass index (BMI) Body weight Heart rate Systolic And Diastolic Provider Name and Address Organization Details Last Updated DateTime 09/23/2022 167.64 cm 47.6 kg/m2 698098.7 5 g 76 /min 106/62 mm[Hg] Suzanna Moore [facility] 09/23/2022 14:06:58 Social History Question Answer Notes LastModified by Organizat ion Details LastModified Time Tobacco Smoking Status [facility] 03/12/2021 14:46:35 What Was The Date Of Your Most Recent Tobacco Screening? 10/09/2021 [email or web address] Information not available 10/09/2021 How Many Years Have You Smoked Tobacco? 25 [email or web address] Information not available 03/12/2021 Sex: Female Functional Status None recorded. Mental Status None recorded. Family History Nothing Reported. 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 Condition Response Heart Attack (OK) Y Diabetes Y Gynecological HistoryNo gynecological history recorded. Obstetrics History GPAL:G 0 P 0 0 0 0 Past Encounters Encounter ID Performer Location Encounter Start Date Encounter Closed Date Diagnosis/Indication Diagnosis SNOMED-CT Code Diagnosis ICD10 Code Diagnosis IMO Codes Diagnosis Note [id number] ROBBY BARRAGAN MD [facility] [address] [place] [address] 03/12/2021 14:15:47 03/12/2021 16:29:29 Uncontrolled type 2 diabetes mellitus 637902761 E11.65 A1c in the office today of [...] diet. Provided with educationa l materials from [employer] about hypoglycem ia symptom [...] o obtain her podiatry notes from her nurse's companion Fasting lipid panel including LFTs, lipid panel and urinary ACR before next visit after 3 months. Peripheral neuropathy due to type 2 diabetes mellitus 7311771306 107 E11.42 Counseled about the importance of glycemic control to slow further progressio n of diabetic neuropathy /diabetic/ Charcot's joint obtained of a dilated. 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 adams office Emphasized on the importance of bringing her glucose meter with her to the office next office visit. Patient verbalized understand ing and agreed with the above mentioned plan of care. I would like to thank Dr. Lynch for the opportunit y to participat e in the care of this patient. [id number] ROBBY BARRAGAN MD [facility] [address] [place] [address] 06/12/2021 13:51:24 06/13/2021 10:27:33 Uncontrolled type 2 diabetes mellitus [id number] E11.65 A1c in the office today of 7.8 up from 7.2% Random point-of-c are blood glucose 136 Goal A1c less than 7% Worsening glycemic control i.e. reviewing limited date on her sensor showed hyperglyce rekha mainly postprandi al at bedtime and physical therapy asst [ reflection of bedtime hyperglyce rekha] I [...] o obtain her podiatry notes from her nurse's companion Fasting lipid panel including LFTs, lipid panel and urinary ACR before next visit after 3 months. Hyperlipidemia 98770307 E78.5 Lipid panel and LFTs today Further management to be determined as appropriat e Essential hypertension 20188276 I10 Blood pressure of 104/62Cont inue current regimen Urinary ACR BMB today Patient verbalized understand ing and agreed with the above mentioned plan of care. [id number] ROBBY BARRAGAN MD [facility] [address] [place] [address] 10/09/2021 13:54:06 10/17/2021 14:01:40 Uncontrolled type 2 diabetes mellitus 347677416 E11.65 A1c in the office today of [...] o obtain her podiatry notes from her nurse's companion Fasting lipid panel including LFTs, lipid panel and urinary ACR before next visit after 3 months. [id number] ROBBY BARRAGAN MD [facility] [address] [place] [address] 01/08/2022 14:13:57 01/10/2022 13:07:42 Uncontrolled type 2 diabetes mellitus [id number] E11.65 A1c in the office today of [...] share her sensor data with our clinic. [id number] ROBBY BARRAGAN MD [facility] [address] [place] [address] 04/09/2022 13:51:39 04/09/2022 15:09:29 Uncontrolled type 2 diabetes mellitus 309816494 E11.65 A1c in the office today of [...] her sensor data with our clinic. Hyperlipidemia 66916353 E78.5 Lipid panel and LFTs todayConti nue current rosuvastat in therapy Instructed about the importance of low-choles terol diet Further management to be determined as appropriat e Peripheral neuropathy due to type 2 diabetes mellitus 0964904530 107 E11.42 Counseled about the importance of glycemic control to slow further progressio n of diabetic neuropathy /diabetic/ Charcot's jointConti nue to follow with podiatry Patient verbalized understand ing and agreed with the above mentioned plan of care. [id number] ROBBY BARRAGAN MD [facility] [address] [place] [address] 07/09/2022 14:17:43 07/09/2022 15:28:43 Uncontrolled type 2 diabetes mellitus [id number] E11.65 A1c in the office today of [...] of 118Shkaren is currently on statin therapy [id number] ROBBY BARRAGAN MD [facility] [address] [place] [address] 09/23/2022 13:47:51 09/23/2022 15:29:28 Uncontrolled type 2 diabetes mellitus 608516907 E11.65 A1c in the office today of [...] of [place]/María is currently on statin therapy [id number] ROBBY BARRAGAN MD [facility] [address] [place] [address] 12/30/2022 14:34:01 12/30/2022 15:52:18 Uncontrolled type 2 diabetes mellitus [id number] E11.65 A1c in the office today of [...] 118/66Shkaren is currently on statin therapy Hyperlipidemia 38277671 E78.5 Lipid panel and LFTsLabs to be done at an outside facility and faxed to our office for patient requestCon tinellen current rosuvastat in therapyIns tructed about the importance of low-choles terol dietFurthe r management to be determined as appropriat e [id number] ROBBY BARRAGAN MD [facility] [address] [place] [address] 05/06/2023 13:58:15 05/06/2023 14:58:33 Uncontrolled type 2 diabetes mellitus [id number] E11.65 A1c in the office today of [...] 130/62She is currently on statin therapy Hyperlipidemia 47728986 E78.5 Lipid panel and LFTs from outside facility on 03/30/2023 reviewed [LDL of 97.8, triglyceri vivian of 234 and total cholestero l 164 and HDL cholestero l of 38.Continu e current rosuvastat in therapyIns tructed about the importance of low-choles terol dietPatien t verbalized understand ing and agreed with the above mentioned plan of care. [id number] ROBBY BARRAGAN MD [facility] [address] [place] [address] 09/02/2023 14:09:48 09/03/2023 04:53:33 Uncontrolled type 2 diabetes mellitus [id number] E11.65 A1c in the office today of [...] neuropathy due to type 2 diabetes mellitus [id number] 107 E11.42 Severe peripheral neuropathy Counseled about the importance of glycemic control to slow further progressio n of diabetic neuropathy /diabetic/ Charcot's jointConti nue to follow with podiatry Hyperlipidemia 37881734 E78.5 Lipid panel and LFTs from outside facility on 03/30/2022 reviewed [LDL of 97.8, triglyceri vivian of 234 and total cholestero l 164 and HDL cholestero l of 38.Continu e current rosuvastat in therapyIns tructed about the importance of low-choles terol dietPatien t verbalized understand ing and agreed with the above mentioned plan of care. [id number] ROBBY BARRAGAN MD ENDOCRINO LOGY [address] [place] [address] 12/24/2023 14:47:11 12/24/2023 15:40:35 Uncontrolled type 2 diabetes mellitus [id number] E11.65 A1c in the office today of [...] with diabetic dilated eye exam i.e. Dr. bryan Hyperlipidemia [id number] E78.5 Lipid panel and LFTs from outside [...] neuropathy due to type 2 diabetes mellitus [id number] 107 E11.42 Severe peripheral neuropathy Recounsele d about the importance of glycemic control to slow further progressio n of diabetic neuropathy /diabetic/ Charcot's jointConti nue to follow with podiatry Essential hypertension [id number] I10 Blood pressure of 124/62Cont inue current [...] REPLACEMENT/AD VANTAGE - PPO) Bee B Isaiah [id number] Bee B Isaiah 12/23/2023 2 [facility] [place]) [id number] Bee B Isaiah [id number] Bee B Isaiah 09/09/2024 1 [place] Bee B Isaiah [id number] Bee B Isaiah 09/09/2024 1 [place]MEDIC[place]PLACEMENT HMO) [id number] Bee B Isaiah [id number] Bee B Isaiah Notes Date Note [...] left foot amputation. History of coronary artery disease/OK status post cardiac stenting. ROBBY BARRAGAN MD [address] [place] [address], [phone], [facility] 09/23/2022 14:40:38 12/30/2022 text/html 52-year-old female patient [...] left foot amputation. History of coronary artery disease/OK status post cardiac stenting. ROBBY BARRAGAN MD [address] [place], [address], [facility] 12/30/2022 15:49:32 05/06/2023 text/html 52-year-old female patient [...] with Dr. Solo podiatryHistory of coronary artery disease/OK status post cardiac stenting. ROBBY BARRAGAN MD [address] [place] [address], [phone], [facility] 05/06/2023 14:58:18 09/02/2023 text/html 53-year-old female patient [...] Solo podiatry [healing closeHistory of coronary artery disease/OK status post cardiac stenting. ROBBY BARRAGAN MD [address] [place] [address], [phone], [facility] 09/02/2023 15:16:38 12/24/2023 text/html 53-year-old female patient [...] Solo podiatry [healing closeHistory of coronary artery disease/OK status post cardiac stenting. ROBBY BARRAGAN MD [address] [place], [address], [facility] 12/24/2023 15:35:11 OBGyn Episode No OBEpisode recorded.
--- OUTSIDE RECORDS SUMMARY | 2025-10-15 07:33 | XMS_ITS | Clinical Summary ---
Author Organization [employer] ([place], [place], [place], [place], [place]) Address [address] [place] [address] Care Team Providers Care Medical Physics Professor Name Role Phone Unavailable Primary Care [...]
--- OUTSIDE RECORDS SUMMARY | 2025-10-15 07:33 | XMS_ITS | Encounter Summary ---
Author Organization [employer] ([place], [place], [place], [place], [place]) Address [address] [place] [address] Care Team Providers Care System Specialist Name Role Phone Unavailable Primary Care Provider Unavailabl e Encounter Details Date Type Department Care Team (Late st Contact Info) Description 07/31/2020 Transcribed Document [facility] [place] [address] ProviderEvangelista MD [facility] [place] [id number] Social History Tobacco Use Types Packs/Day Years [...] at this time with the use of Silt 10/325 mg four times daily dosing, Lyrica [...] Navarro/maurice Electronically signed by Richie Pollard Conversion Police [employer] Program Coordinator Cerner at 03/05/2023 6:51 PM CDT documented in this encounter Plan of Treatment Not on file documented as of this encounter Visit Diagnoses Not on filedocumented in this encounter
--- OUTSIDE RECORDS SUMMARY | 2025-10-15 07:33 | XMS_ITS | Encounter Summary ---
Author Organization [employer] ([place], [place], [place], [place], [place]) Address [address] [place] [address] Care Team Providers Care Office Machine Inspector Name Role Phone Unavailable Primary Care Provider Unavailabl e Encounter Details Date Type Department Care Team (Late st Contact Info) Description 08/12/2019 Transcribed Document [facility] [place] [facility] [place] [address] ProviderEvangelista MD [address] [place] [address] Social History Tobacco Use Types [...]
--- OUTSIDE RECORDS SUMMARY | 2025-10-15 07:33 | XMS_ITS | Encounter Summary ---
Author Organization [employer] ([place], [place], [place], [place], [place]) Address [address] [place] [address] Care Team Providers Care Wire Stockkeeper Name Role Phone Unavailable Primary Care Provider Unavailabl e Encounter Details Date Type Department Care Team (Late st Contact Info) Description 07/11/2021 Transcribed Document [facility] [place] Family Medicine [address] [place] [address] ProviderEvangelista MD [address] [place] [address] Social History Tobacco Use Types [...] Evangelista ProviderMD - 07/11/2021 12:12 PM CDT [facility] [place] [address] BEE COLON :1970 Visit Time:07/11/2021 What to do next Your Diagnosis Non-pressure chronic ulcer of other part of right foot with unspecified severity Peripheral vascular disease, unspecified Unspecified atherosclerosis of [place] arteries of extremities, unspecified extremity, Unspecified atherosclerosis of [place] arteries of extremities, unspecified extremity Instructions From [...] 7-10 days Jul.23 at 11:15 am Where: [facility] [address] [place] [phone] Medications What How Much When Instructions Next [...] eating solid foods. General instructions ??? Take trgv-dzk-qggtvdr and prescription medicines only as told by [...] provider. Document Revised: 01/31/2019 Document Reviewed: 02/22/2017 [employer] Patient Education ?? 2020 [employer] Surgical Wound Debridement, Care After This [...] these instructions at home: Medicines ??? Take irjb-jdy-duivcml and prescription medicines only as told by [...] and water are not available, use hand event staff member. ? Change your dressing as told by [...] provider. Document Revised: 10/25/2019 Document Reviewed: 10/25/2019 [employer] Patient Education ?? 2020 [employer] Emergency Awareness and Preventative Care STROKE [...] Assistance with quitting is available by contacting 8-098-TOGONOW. This is a free resource providing counseling, support, and referral. Or you may contact your personal physician. [place] Suicide Prevention Lifeline: The National Suicide Prevention [...] range between ( 0.0 and 7.0 ) Keith #: 0.83 K/uL -- Normal range between ( 0.16 and 1.00 ) Eos #: 0.28 x10(3)/uL -- Normal range between ( 0.00 and 0.80 ) Keith %: 9.0 % -- Normal range between [...] was given the opportunity to ask questions. Patient/Explosives Handler Name: Patient/Explosives Handler Signature: Relationship to Patient: Clinician/Hospital Explosives Handler Signature: Date: Electronically signed by Atul, [facility] Conversion End Finder Forming Department Cerner at 03/05/2023 7:13 PM CDT documented in this encounter Plan of Treatment Not on file documented as of this encounter Visit Diagnoses Not on filedocumented in this encounter
--- OUTSIDE RECORDS SUMMARY | 2025-10-15 07:33 | XMS_ITS | Encounter Summary ---
Author Organization [employer] ([place], [place], [place], [place], [place]) Address [address] [place] [address] Care Team Providers Care Warp Dyeing Vat Tender Name Role Phone Unavailable Primary Care Provider Unavailabl e Encounter Details Date Type Department Care Team (Late st Contact Info) Description 07/11/2021 Transcribed Document [facility] [place] [facility] [place] [address] ProviderEvangelista MD [address] [place] [address] Social History Tobacco Use Types [...] Evangelista ProviderMD - 07/11/2021 11:07 AM CDT [facility] Main OR Preop Summary Primary Physician: MANI THOMAS MD-SUR Finalized Date/Time: 07/11/21 13:05:00 Pt. Name: BEE COLON./Sex: 1970 Female Med Rec #: [id number] Physician: MANI THOMAS MD-SUR Financial #: [id number] Pt. Type: O Room/Bed: Admit/Disch: 07/11/21 08:06:00 - Institution: [facility] PreOp Case Times Entry 1 In Preop 07/11/21 08:23:00 Ready for Holding n/a Room Patient Ready for 07/11/21 09:30:00 Surgery Patient Out of Preop 07/11/21 10:46:00 Patient Out of n/a Holding Room Last Modified By: DEMETRICE WANG RN 07/11/21 13:04:37 Finalized By: DEMETRICE WANG RN Document Signatures Signed By: DEMETRICE WANG RN 07/11/21 13:05 Electronically signed by Atul [facility] Conversion Internal Sales Engineer Cerner at 03/05/2023 7:04 PM CDT documented in this encounter Plan of Treatment Not on file documented as of this encounter Visit Diagnoses Not on filedocumented in this encounter
--- OUTSIDE RECORDS SUMMARY | 2025-10-15 07:33 | XMS_ITS | Encounter Summary ---
Author Organization [employer] ([place], [place], [place], [place], [place]) Address [address] [place] [address] Care Team Providers Care Senior Logistics Manager Name Role Phone Unavailable Primary Care Provider Unavailabl e Encounter Details Date Type Department Care Team (Late st Contact Info) Description 08/12/2019 Transcribed Document [facility] [place] Medicine [facility] [place] [address] ProviderEvangelista MD [facility] [place], [place] [id number] Social History Tobacco Use Types Packs/Day Years [...] cord stimulator implantation with good coverage. 3. Mvzhrsu-Gjomj-Tqpmx syndrome right foot. PROCEDURE/TEST ORDERED: Not present. PLAN: Will continue Ms. Colon on her current medication of [place] 10 mg. q.6 hours, Tramadol 50 mg. [...]
--- OUTSIDE RECORDS SUMMARY | 2025-10-15 07:33 | XMS_ITS | Encounter Summary ---
Author Organization [employer] ([place], [place], [place], [place], [place]) Address [address] [place] [address] Care Team Providers Care Inventory Control Supervisor Name Role Phone Unavailable Primary Care Provider Unavailabl e Encounter Details Date Type Department Care Team (Late st Contact Info) Description 07/11/2021 Transcribed Document [facility] Radiology [address] [place] [address] Dennis Greco MD [address] [facility] [place] [address] Social History Tobacco Use Types Packs/Day Years [...] of Xeroform, 4 x 4's Kerlix and Rcistian wrap bilaterally. Anesthesia MAC ROLDAN HODGES MD-ANS [...]
--- OUTSIDE RECORDS SUMMARY | 2025-10-15 07:33 | XMS_ITS | Clinical Summary ---
Author Organization [facility] Address [address] [place] [id number] Care Team Providers Care Senior C Developer Name Role Phone Diego Lynch MD Primary Care Provider [phone] Allergies Active Allergy Reactions Criticality Noted Date [...] (03/23/2020): Added automatically from request for surgery [id number] Social History Tobacco Use Types Packs/Day Years [...] ANNUAL PHYSICAL 03/27/2020 HEPATITIS C SCREENING 03/27/2020 INFLUENZA VACCINE 06/16/2025 08/16/2020 Medical Devices Implanted Type Area Boat Builder Device Identifier Shelf Expiration Date Model / Serial / Lot Stnt Xience Kiesha Everolimus Monico 4x23mm - [id number] Implanted:Qty: 1 on 03/26/2020 by Julio César Manzano MD at [facility] VASCULAR [id number] / / [id number] Insurance MEDICARE A & B Care Teams Senior C Developer Relationship Specialty Start Date End Date Diego Lynch MD [address] [facility] [address] [place] [address] PCP - General Internal Medicine 07/09/18
--- OUTSIDE RECORDS SUMMARY | 2025-10-15 07:33 | XMS_ITS | Referral Summary ---
Author Organization [employer] ([place], [place], [place], [place], [place]) Address [address] [place] [address] Care Team Providers Care Rehab Services Aide Name Role Phone Unavailable Primary Care Provider [...]
--- OUTSIDE RECORDS SUMMARY | 2025-10-15 07:33 | XMS_ITS | Patient Health Record ---
Author Organization Jitendra Fritz MD Address [address] [place] [address] Care Team Providers Care Data Management Specialist Name Role Phone Jitendra Fritz Primary Care Provider Jitendra Fritz MD Unavailable [phone] Allergies Allergen (clinical drug ingredient) Drug/Non Drug Allergy documented on EMR Reaction Allergy Type Onset Date Status Information temporarily unavailable Morphine Sulfate vomiting Drug Allergy Active Information temporarily unavailable Codeine vomiting Drug Allergy Active Reason For [...] orally every 4-6 hours prn pain Active [place] 10-325 MG 1 tablet as needed O [...] Problem Status W/U Status Risk Notes Problem Information temporarily unavailable Essential (primary) hypertension (I10) Active confirmed Problem Information temporarily unavailable Type 2 diabetes mellitus without complications (E11.9) Active confirmed Problem Information temporarily unavailable Anxiety disorder, unspecified (F41.9) Active confirmed Problem Information temporarily unavailable Atherosclerotic heart disease of [place] coronary artery without angina pectoris (I25.10) Active confirmed Problem Information temporarily unavailable Hyperlipidemia, unspecified (E78.5) Active confirmed Problem Information temporarily unavailable Type 2 diabetes mellitus with diabetic neuropathy, unspecified (E11.40) Active confirmed Problem Information temporarily unavailable Major depressive disorder, single episode, mild (F32.0) Active confirmed Problem Information temporarily unavailable Chronic pain syndrome (G89.4) Active confirmed Problem Information temporarily unavailable Old myocardial infarction (I25.2) Active confirmed Problem Information temporarily unavailable Localized edema (R60.0) Active confirmed Plan Of Treatment Pending Test Test Name Order Date VENIPUNCTURE 07/02/2016 Urinalysis 07/02/2016 Future Test Test Name Order Date Urine Drug Screen 07/09/2016 Insurance Providers Payer Name Payer Address Payer Phone Subscriber Number Group Number Insured Name Patient Relationship to Insured Coverage Start Date Coverage End Date [facility] PPO [address] [place] [address] [phone] [id number] Bee Colon Self - patient is the insured Medical (General) History 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 History ICD Code diabetes heart attack, 2015 fibromyalgia Surgical History Surgery Date(Month/Year) gallbladder tahbso 2003 right hand x2 left hand right knee x3 left knee bilateral shouler nuero stimulator Hospitalization History Reason Date(Month/Year) multiple dates for the above mentioned s urgeries 1697-2026
--- OUTSIDE RECORDS SUMMARY | 2025-10-15 07:33 | XMS_ITS | Encounter Summary ---
Author Organization [facility] ([place], [place], [place], [place], [place]) Address [address] [place] [address] Care Team Providers Care Hospital Plan Administrator Name Role Phone Unavailable Primary Care Provider Unavailabl e Encounter Details Date Type Department Care Team (Late st Contact Info) Description 07/10/2021 Transcribed Document [facility] [place] Family Medicine [facility] [place] [address] ProviderEvangelista MD [address] [place] [address] Social History Tobacco Use Types [...] Ministry Provided to : Patient, Family/Significant other Synagogue Preference : Pentecostal ([employer]) MEDINA BRADFORD - 07/11/2021 10:58 EDT Spiritual Assessment Spiritual Assessment Comment/Summary Points : Provided pre-surgery visit and prayer with patient and mother. Spirital Assessment Comment/Summary Report : SPIRITUAL ASSESSMENT COMMENT/SUMMARY No qualifying data available. MEDINA BRADFORD - 07/11/2021 10:58 EDT Interventions Emotional Support : Empathic/Engaged listening, Family/Significant other supported Spiritual and Synagogue : Prayer shared, Spiritual/Synagogue support provided MEDINA BRADFORD 07/11/2021 10:58 EDT documented in this encounter Plan of Treatment Not on file documented as of this encounter Visit Diagnoses Not on filedocumented in this encounter
--- OUTSIDE RECORDS SUMMARY | 2025-10-15 07:33 | XMS_ITS | Encounter Summary ---
Author Organization [employer] ([place], [place], [place], [place], [place]) Address [address] [place] [address] Care Team Providers Care Chief Of Staff Name Role Phone Unavailable Primary Care Provider Unavailmildred e Encounter Details Date Type Department Care Team (Late st Contact Info) Description 07/11/2021 Transcribed Document [facility] [place] [facility] [place] [address] ProviderEvangelista MD [address] [place] [address] Social History Tobacco Use Types [...] Evangelista ProviderMD - 07/11/2021 11:07 AM CDT [facility] Main OR PostOp Summary Primary Physician: MANI THOMAS MD-SUR Finalized Date/Time: 07/11/21 17:49:06 Pt. Name: BEE COLON./Sex: 1970 Female Med Rec #: [id number] Physician: MANI THOMAS MD-SUR Financial #: [id number] Pt. Type: O Room/Bed: Admit/Disch: 07/11/21 08:06:00 - Institution: [facility] Main OR PostOp Case Times Entry 1 In PACU II 07/11/21 11:24:00 Ready for PACU II 07/11/21 12:25:00 Discharge Discharge from PACU 07/11/21 12:25:00 II Last Modified By: Purvi Duffy Rn 07/11/21 17:49:03 Finalized By: Purvi Duffy Rn Document Signatures Signed By: Purvi Duffy Rn 07/11/21 17:49 Electronically signed by Atul [facility] Conversion Biscuit Maker Cerner at 03/05/2023 6:49 PM CDT documented in this encounter Plan of Treatment Not on file documented as of this encounter Visit Diagnoses Not on filedocumented in this encounter
--- OUTSIDE RECORDS SUMMARY | 2025-10-15 07:33 | XMS_ITS | Encounter Summary ---
Author Organization [employer] ([place], [place], [place], [place], [place]) Address [address] [place] [address] Care Team Providers Care Hvac/R Instructor Name Role Phone Unavailable Primary Care Provider Unavailabl e Encounter Details Date Type Department Care Team (Late st Contact Info) Description 07/11/2021 Transcribed Document [facility] Radiology [address] [place] [address] Dennis Greco MD [address] [facility] [address] [place] [id number] Social History Tobacco Use Types Packs/Day Years [...] 1970 Associated Diagnoses: None Author: BEE BRYANT, CORPORATE TAX MANAGER Chief Complaint spenser feet wounds Review of [...] list: All Problems 6-Stented coronary artery / [facility] CT 8049371121 / Confirmed Spinal cord stimulator status rt hip pt turned off this am / SNOMED CT 152975980 / Confirmed Peripheral vascular disease / SNOMED CT 1653875840 / Confirmed Myocardial infarction / SNOMED CT 40585089 / Confirmed Hypertension / SNOMED CT 95790249 / Confirmed History of obstructive sleep apnea / IMO 01347121 / Confirmed Fibromyalgia / SNOMED CT 17454661 / Confirmed DM - Diabetes mellitus / SNOMED CT 244562601 / Confirmed Diabetic neuropathy / SNOMED CT 360662615 / Confirmed Coronary artery disease / SNOMED CT 8621595508 / Confirmed Chronic back pain / SNOMED CT 929626004 / Confirmed Cellulitis of foot, left / SNOMED CT 442123502 / Confirmed Angina / SNOMED CT 585862832 / Confirmed -2020 Non-ST elevation PR (NSTEMI) x 2 / SNOMED CT 8889059564 / Confirmed Unsteady gait-uses cane / SNOMED CT 36674781 / Confirmed, Active Problems (15) Non-ST elevation PR (NSTEMI) x 2 6-Stented coronary artery Angina [...] been selected or recorded. Procedure history: Hysterectomy (855260782). right foot pinning. lap with laser x3. rt knee scope x2. left knee scope. right hand CMC x4. left hand CMC x1. all toes amputated from left foot. left shoulder scope. right shoulder scope. Cholecystectomy (98933538). Appendectomy (950078111). spinal cord stimulator. Physical Examination VS/Measurements No qualifying data available, Measurements from flowsheet : Measurements 07/10/2021 16:16 EDT Height Source Measured Height Entry Format [place] Height/Length, [place] (ft) 5 ft Height/Length [place] 6.5 Inch CLINICALHEIGHT 168.91 cm [place] Body Weight 60 kg Weight Source Standing scale Weight Entry Format [place] Weight Italian lb 281 lb CLINICALWEIGHT 127.73 [...]
--- OUTSIDE RECORDS SUMMARY | 2025-10-15 07:33 | XMS_ITS | Encounter Summary ---
Author Organization [employer] ([place], [place], [place], [place], [place]) Address [address] [place] [address] Care Team Providers Care Marine Diesel Mechanic Name Role Phone Unavailable Primary Care Provider Unavailabl e Encounter Details Date Type Department Care Team (Late st Contact Info) Description 10/10/2020 Transcribed Document [facility] [place] [address] ProviderEvangelista MD [address] [place] [id number] Social History Tobacco Use Types Packs/Day Years Used Date Smoking Tobacco: Never Assessed Comments Unknown Sex and Gender Information Value Date Recorded Sex Assigned at Not on file Legal Sex Female 3:10 PM CDT Gender Identity Not on file Sexual Orientation Not on file documented as of this encounter Miscellaneous Notes * Cerner Conversion Note - Evangelista ProviderMD - 10/10/2020 10:58 AM TRANSFORMATION COACH Patient: BEE COLON Age: 50 Years Sex: [...] diabetic peripheral neuropathy with spinal cord stimulator, [employer] system. CURRENT PLAN: Ms. Colon and I discussed different options with her medication and her spinal cord stimulator. We have decided to get smooth of [employer] about reprogramming before we do anything with her medication. So, I have contacted them and asked if they could call her. I am going to continue her on her [place] 10 mg every 6 hours, Lyrica 200 [...]
--- OUTSIDE RECORDS SUMMARY | 2025-10-15 07:33 | XMS_ITS | Encounter Summary ---
Author Organization [employer] ([place], [place], [place], [place], [place]) Address [address] [place] [address] Care Team Providers Care Pluck Trimmer Name Role Phone Unavailable Primary Care Provider Unavailabl e Encounter Details Date Type Department Care Team (Late st Contact Info) Description 07/11/2021 Transcribed Document [facility] [place] Family Medicine [facility] [place] [address] ProviderEvangelista MD [address] [place] [address] Social History Tobacco Use [...] Evangelista ProviderMD - 07/11/2021 11:07 AM CDT [facility] Main OR IntraOp Summary Primary Physician: MANI THOMAS MD-SUR Finalized Date/Time: 07/14/21 16:36:09 Pt. Name: BEE COLON./Sex: 1970 Female Med Rec #: [id number] Physician: MANI THOMAS MD-SUR Financial #: [id number] Pt. Type: O Room/Bed: Admit/Disch: 07/11/21 08:06:00 - 07/11/21 12:25:00 Institution: [facility] IntraOp Case Attendance Entry 1 Entry 2 Entry 3 Case Attendee MANI THOMAS MD-SUR BOWEN, JON B, Purvi Muller, DELMA Role Performed Surgeon/Proceduralist, Anesthesiologist of BERRY PICKER MACHINE OPERATOR/Nurse Piped Pocket Machine Operator First Record Time In 07/11/21 10:47:00 07/11/21 10:47:00 07/11/21 10:47:00 Time Out 07/11/21 11:25:00 07/11/21 11:25:00 07/11/21 11:25:00 Procedure Wound Debridement Lower Wound Debridement Lower Wound Debridement Lower Extremity Extremity Extremity Other Attendee BIODIESEL ENGINE SPECIALIST Superficial Wound Closed By: Last Modified By: Zee Delgadillo RN Napier, Elizabeth A, Zee Gtz, GRETA 07/11/21 11:30:29 07/11/21 11:30:29 07/11/21 11:30:29 Entry 4 Entry 5 Entry 6 Case Attendee ELAINE BRUCE ST Zhurko, Timofey, Scrub Zee Delgadillo RN Tech Role Performed Scrub, First Scrub, First Pulverizer Mill Operator, First Time In 07/11/21 10:47:00 07/11/21 10:47:00 07/11/21 10:47:00 Time Out 07/11/21 11:25:00 07/11/21 11:25:00 07/11/21 11:25:00 Procedure Wound Debridement Lower Wound Debridement Lower Wound Debridement Lower Extremity Extremity Extremity Other Attendee ORIENTEE Superficial Wound Closed By: Last Modified By: Zee Delgadillo RN Napier, Elizabeth A, RN Zee Delgadillo, GRETA 07/11/21 11:30:29 07/11/21 11:30:29 07/11/21 11:30:29 Entry 7 Entry 8 Case Attendee SINA JOHNSON, RN Sherwin Gage, GRETA Role Performed Pulverizer Mill Operator, Second Pulverizer Mill Operator, Third Time In 07/11/21 10:47:00 07/11/21 10:47:00 Time Out 07/11/21 11:25:00 07/11/21 11:25:00 Procedure Wound Debridement Lower Wound Debridement Lower Extremity Extremity Other Attendee ORIENTATION Superficial Wound Closed By: Last Modified By: Zee Delgadillo RN Napier, Elizabeth A, RN 07/11/21 11:30:29 07/11/21 11:30:29 [facility] IntraOp Case Attendance Audit 07/11/21 11:30:29 Security Site Supervisor: JAIRO Modifier: EANAPIER 1 <+> Time Out [...] Procedure Wound Debridement Lower Extremity 07/11/21 11:08:19 Security Site Supervisor: JAIRO Modifier: EANAPIER <+> 6 Case Attendee <+> 6 Role Performed <+> 6 Procedure <+> 7 Case Attendee <+> 7 Role Performed <+> 7 Procedure <+> 8 Case Attendee <+> 8 Role Performed <+> 8 Procedure <+> 8 Other Attendee 07/11/21 10:51:13 Security Site Supervisor: BINAKRISTINE Modifier: EANAPIER 5 <+> Case Attendee 5 <*> Procedure Wound Debridement Lower Extremity 07/11/21 10:49:29 Security Site Supervisor: KURT Modifier: EANAPIER 1 <+> Time In 1 <*> Procedure Wound Debridement Lower Extremity 2 <+> Time In 2 <*> Procedure Wound Debridement Lower Extremity 3 <+> Time In 3 <*> Procedure Wound Debridement Lower Extremity 4 <+> Time In 4 <*> Procedure Wound Debridement Lower Extremity 5 <+> Time In 5 <*> Procedure Wound Debridement Lower Extremity [facility] IntraOp Case Times Entry 1 Patient In Room Time 07/11/21 10:47:00 Out Room Time 07/11/21 11:25:00 Anesthesia Start Time 07/11/21 10:47:00 Stop Time 07/11/21 11:25:00 Surgery / Procedure Times Start Time 07/11/21 11:07:00 Stop Time 07/11/21 11:18:00 Last Modified By: Zee Delgadillo RN 07/11/21 11:30:15 [facility] IntraOp Case Times Audit 07/11/21 11:30:15 Security Site Supervisor: EANAPIER Modifier: EANAPIER <+> 1 Out Room Time <+> 1 Stop Time 07/11/21 11:18:34 Security Site Supervisor: EANAPIER Modifier: EANAPIER <+> 1 Stop Time 07/11/21 11:06:32 Security Site Supervisor: EANAPIER Modifier: EANAPIER <+> 1 Start Time [facility] IntraOp Cautery Entry 1 ESU Identification Cautery Type Monopolar ESU ID Number [id number] ID Type Hospital Number Cautery Settings Cut Setting 35 Coag Setting 35 ESU Grounding Pad Ground Pad Type Adult Grounding Pad Site Right thigh Grounding Pad Site Warm, dry and intact Skin Condition Before Cautery Last Modified By: Zee Delgadillo RN 07/11/21 11:06:28 [facility] IntraOp Communication Entry 1 Communication To Other Comment POST OP Communication By SINA JOHNSON RN Date and Time 07/11/21 11:16:00 Last Modified By: Zee Delgadillo RN 07/11/21 11:16:29 [facility] IntraOp Counts Verification Entry 1 Procedure Wound Debridement Lower Extremity Count Info Count Type Sponge, Sharps, Miscellaneous Counts Verification Baseline/pre-procedure Sequence Count Results Not Applicable Counts Performed By Count Performed By ELAINE BRUCE ST (Scrub) Count Performed By SINA JOHNSON RN (RN) Last Modified By: Zee Delgadillo RN 07/11/21 11:09:24 [facility] IntraOp Counts Verification Audit 07/11/21 11:09:24 Security Site Supervisor: BINAPIER Modifier: EANAPIER 1 <*> Procedure Wound Debridement Lower Extremity 1 <+> Count Performed By (RN) [facility] IntraOp Counts Final Entry 1 Procedure Wound Debridement Lower Extremity Final Count Info Count Type Sponge, Sharps, Miscellaneous Counts Verification Skin Closure/end of Sequence procedure Count Results Correct, surgeon notified Counts Performed By Count Performed By ELAINE BRUCE ST (Scrub) Count Performed By SINA JOHNSON RN (RN) Last Modified By: Zee Delgadillo RN 07/11/21 11:15:16 [facility] IntraOp Counts Final Audit 07/11/21 11:15:16 Security Site Supervisor: JAIRO Modifier: EANAPIER 1 <*> Procedure Wound Debridement Lower Extremity 1 <+> Count Results 1 <+> Count Performed By (Scrub) 1 <+> Count Performed By (RN) [facility] IntraOp Departure from OR Entry 1 Integumentary Assessment Transfer/Handoff Transfer to Ambulatory unit, Phase II Handoff Method Phone call, Online nursing summary Post-op Transport Stretcher/Gurney Via Patient Transport SINA JOHNSON RN Accompanied by Last Modified By: Zee Delgadillo RN 07/11/21 11:30:27 [facility] IntraOp Departure from OR Audit 07/11/21 11:30:27 Security Site Supervisor: RESULTJO Modifier: JAIRO <+> 1 Patient Transport Accompanied by [facility] IntraOp Dressing and Packing Entry 1 Type Dressing Wound Dressing Item Cristian, Kerlix/Feng Supplemental Other Applications Applied By MANI THOMAS MD-MARISOL Last Modified By: Zee Delgadillo RN 07/11/21 11:16:14 General Comments: SHOE [facility] IntraOp Fire Risk Assessment Entry 1 Fire [...] Modified By: Zee Delgadillo RN 07/11/21 11:09:14 [facility] IntraOp Fire Risk Assessment Audit 07/11/21 11:09:14 Security Site Supervisor: RESULTJO Modifier: BINAPIHAKEEM <+> 1 Fire Risk Assessment Verified By <+> 1 Fire Risk Assessment Verified Date/Time [facility] IntraOp General Case Dog Handler Or Trainer 1 Case Information OR OR 06 [facility] Case Level 1 Room Verified Yes Wound Class II - Clean-Contaminated Specialty Vascular Anesthesia Type MAC ASA Class 3 Diagnosis Preop Diagnosis NON HEALING LOWER BILATERAL ISCHEMIA WOUNDS Postop Diagnosis SEE POST OP MD NOTES Last Modified By: Zee Delgadillo RN 07/11/21 11:14:57 [facility] IntraOp General Case Data Audit 07/11/21 11:14:57 Security Site Supervisor: EANAPIER Modifier: EANAPIER 1 <*> Specialty 1 <+> Preop Diagnosis 07/11/21 10:49:10 Security Site Supervisor: RESULTJO Modifier: EANAPIER <+> 1 ASA Class [facility] IntraOp Implant Log Entry 1 Type Implant (Synthetic) Implant Log Implant CYTAL WOUND MTRX 3 LYER Identification [id number] Description Implant Quantity 1 Implant [id number] Identification Serial Number Implant [id number] Identification Lot Number Implant [employer] Identification Generation Technician Name: Implant [id number] Identification Catalog Number Implant Size 7 X 10 CM Implant Has an Yes Expiration Date Implant Expiration 02/13/22 Date Tissue Implant Last Modified By: Zee Delgadillo RN 07/11/21 11:12:51 [facility] IntraOp Intraoperative Assessment Entry 1 Handoff Method [...] Modified By: SINA JOHNSON RN 07/11/21 10:09:43 [facility] IntraOp Intraoperative Equipment Entry 1 Type Monitoring Equipment Intraop Monitoring Electrocardiogram Five lead placement (ECG) Electrode Placement Blood Pressure Non-Invasive BP Device Source Pulse Oximeter Hand, left Probe Site Antiembolic Devices Scopes Photo/Video Documentation Photo No Video No Last Modified By: SINA JOHNSON RN 07/11/21 10:10:01 [facility] IntraOp Medication Admin Entry 1 Medication/Irrigant Lidocaine .5% plain -- [id number] Dose Dose 1 Unit of Measure % Administered By MANI THOMAS MD-MARISOL Procedure Irrigation Last Modified By: Zee Delgadillo RN 07/11/21 11:13:38 [facility] IntraOp Patient Positioning Entry 1 Procedure Wound [...] 11:17:05 General Comments: PROCEDURE ON PATIENT STRETCHER [facility] IntraOp Patient Positioning Audit 07/11/21 11:17:05 Security Site Supervisor: HONORIOYOCASTA Modifier: BINAKRISTINE Pereyra <*> Procedure 1 <*> Procedure 1 <*> Procedure Wound Debridement Lower Extremity 1 <*> Procedure Wound Debridement Lower Extremity 1 <*> Procedure Wound Debridement Lower Extremity 1 <*> Positioned By Purvi Mccarty CRNA 1 <*> Positioned By Purvi Mccarty CRNA [facility] IntraOp Sign In Entry 1 Patient, Site, [...] Modified By: SINA JOHNSON RN 07/11/21 10:11:03 [facility] IntraOp Sign Out Entry 1 RN Confirmation [...] Modified By: Zee Delgadillo RN 07/11/21 11:30:40 [facility] IntraOp Sign Out Audit 07/11/21 11:30:40 Security Site Supervisor: JAIRO Modifier: EANAPIER <+> 1 RN Sign Out Signature <+> 1 RN Sign Out Signature Date/Time [facility] IntraOp Skin Prep Entry 1 Procedure Wound Debridement Lower Extremity Prescribed N/A Pre-Surgical Prep Completed Prep Area BILATERAL FEET Intraop Prep Prep Agents Betadine solution Prep by SINA JOHNSON RN Hair Removal Methods No hair removal performed Last Modified By: Zee Delgadillo RN 07/11/21 11:14:20 [facility] IntraOp Surgical Procedures Entry 1 Procedure Wound Debridement Lower Extremity Additional (DEBRIDEMENT OF Procedure BILATERAL FOOT WOUNDS Description WITH ACELLULAR GRAFT PLACEMENT TO LEFT FOOT) Primary Procedure Yes Primary Surgeon MANI THOMAS MD-MARISOL Start 07/11/21 11:07:00 Stop 07/11/21 11:18:00 Anesthesia Type MAC Specialty General Wound Class II - Clean-Contaminated Last Modified By: Zee Delgadillo RN 07/11/21 11:30:42 [facility] IntraOp Surgical Procedures Audit 07/11/21 11:30:42 Security Site Supervisor: JAIRO Modifier: EAWILBURPIER <+> 1 Stop 07/11/21 11:16:15 Security Site Supervisor: KURT Modifier: EANAPIER <+> 1 Start [facility] IntraOP Time Out Entry 1 Procedure to [...] for Unfinalizing 07/14/21 16:33 WATTSDR Correct Billing Electronically signed by Richie Pollard Conversion Vehicle And Equipment Cleaner Cerner at 03/05/2023 7:00 PM CDT documented in this encounter Plan of Treatment Not on file documented as of this encounter Visit Diagnoses Not on filedocumented in this encounter
--- OUTSIDE RECORDS SUMMARY | 2025-10-15 07:33 | XMS_ITS | Encounter Summary ---
Author Organization [employer] ([place], [place], [place], [place], [place]) Address [address] [place] [address] Care Team Providers Care Study Abroad Coordinator Name Role Phone Unavailable Primary Care Provider Unavailabl e Encounter Details Date Type Department Care Team (Late st Contact Info) Description 07/10/2021 Transcribed Document [facility] Family Medicine On [facility] of [facility] [place] [address] ProviderEvangelista MD [address] [place] [address] Social History Tobacco Use Types [...] Source : Measured Height Entry Format : [place] Height, Feet : 5 ft(Converted to: 152 cm, 60 Inch) Height, Inches : 6.5 Inch(Converted to: 0 ft 7 Inch, 16.51 cm) Clinical Height : 168.91 cm Weight Source : Standing scale Weight Entry Format : [place] Clinical Dosing Weight : 127.73 kg Weight, Pounds : 281 lb Body Surface Area (BSA) : 2.33 m2 Body Mass Index : 44.8 kg/m2 (>HHI) [place] Body Weight : 60 kg CHELSY SUÁREZ - 07/11/2021 8:28 EDT Health Histories Smoking Status : Former smoker, quit more than 30 days ago Smokeless Tobacco Status : Never Implant/Device Type, Pathology Teacher and Model : spinal cord stimulator Dalton [...] Where was the COVID-19 Testing completed? : [facility] in [place], [place] Date of COVID-19 test known? : [...] : Yes Spiritual/Cultural Needs Comment : 07/11 Buddhism Preference : Gnosticism ([employer]) Spiritual/Cultural Needs Comment : 07/11 Dalton Lang Rn - 07/10/2021 16:16 EDT [place] Suicide Severity Rating Scale (C-SSRS) CSSRS Past [...] Mother Legal Guardian : No Support Person/Patient Flue Lining Dipper : Yes Support Person/Pt Rep Name : Nelida kraft Support Person/Pt Rep Contact Information : [phone] Want Family/Rep/Phys Notified of Admit : No Emergency Contact #1 : ` Emergency Contact #1 Phone Number : ` Emergency Contact #1 Relationship : ` Emergency Contact #2 : ` Emergency Contact #2 Phone Number : ` Emergency Contact #2 Relationship : ` Information Obtained From : Patient Primary Language : Mauritanian Preferred Communication Mode : Verbal Communication Barrier : None Diffuser Operator Needed : No Dalton Lang Rn [...] Dalton Lang Rn - 07/10/2021 16:16 EDT Electronically signed by Dave Pollard Conversion Employee Communications Manager Cerner at 03/05/2023 6:46 PM CDT documented in this encounter Plan of Treatment Not on file documented as of this encounter Visit Diagnoses Not on filedocumented in this encounter
--- OUTSIDE RECORDS SUMMARY | 2025-10-15 07:33 | XMS_ITS | Clinical Summary ---
Author Organization Healthcare Address [address] [place] [address] Care Team Providers Care Senior Engineer Name Role Phone Diego Lynch MD Primary Care Provider Family History 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 Relation Name Comments [...] of Treatment Not on file Care Teams Senior Engineer Relationship Specialty Start Date End Date Diego Lynch MD [address] [facility] [address] [place] [address] PCP - General 03/29/21
--- OUTSIDE RECORDS SUMMARY | 2025-10-15 07:33 | XMS_ITS | Encounter Summary ---
Author Organization [employer] ([place], [place], [place], [place], [place]) Address [address] [place] [address] Care Team Providers Care Foam Fabricator Name Role Phone Unavailable Primary Care Provider Unavailabl e Encounter Details Date Type Department Care Team (Late st Contact Info) Description 07/11/2021 Transcribed Document [facility] Family Medicine [facility] [place] [address] ProviderEvangelista MD [address] [place] [address] Social History Tobacco Use Types [...] these instructions at home: Medicines ??? Take qhbb-ikr-ioguykv and prescription medicines only as told by [...] are not available, use hand director of student financial services. ? Change your dressing as told by [...] provider. Document Revised: 10/25/2019 Document Reviewed: 10/25/2019 [employer] Patient Education ? 2020 [employer] Obstetrics and Gynecology Monitored Anesthesia Care, [...] eating solid foods. General instructions ??? Take mfii-hkp-jgkxpet and prescription medicines only as told by [...] provider. Document Revised: 01/31/2019 Document Reviewed: 02/22/2017 [employer] Patient Education ? 2020 [employer] documented in this encounter Plan of Treatment Not on file documented as of this encounter Visit Diagnoses Not on filedocumented in this encounter
--- OUTSIDE RECORDS SUMMARY | 2025-10-15 07:33 | XMS_ITS | Encounter Summary ---
Author Organization [employer] ([place], [place], [place], [place], [place]) Address [address] [place] [address] Care Team Providers Care House Superintendent Name Role Phone Unavailable Primary Care Provider Unavailabl e Encounter Details Date Type Department Care Team (Late st Contact Info) Description 06/06/2020 Transcribed Document [facility] [facility] [place] [address] ProviderEvangelista MD [facility] [place] [id number] Social History Tobacco Use Types Packs/Day Years [...] clinic in two months. Cele Martinez APRN SF/lll Electronically signed by Atul Cox [employer] Conversion X Ray Service Technician Cerner at 03/05/2023 7:03 PM CDT documented in this encounter Plan of Treatment Not on file documented as of this encounter Visit Diagnoses Not on filedocumented in this encounter
[2025-10-15 07:38] LABS: Hematocrit 44.6 % (37.0-47.0); Hemoglobin 14.9 g/dL (12.2-16.2); Immature Granulocytes % 0.5 %; Mean Corpuscular HGB Conc 33.4 g/dL (31.8-35.4); Mean Corpuscular Hemoglobin 27.5 pg (27.0-31.2); Mean Corpuscular Volume 82.3 fl (81-99); Nucleated Red Blood Cells % 0 %; Platelet Count 333 K/mm3 (142-424); Red Blood Count 5.42 M/mm3 (4.20-5.40); Red Cell Distribution Width-SD 41.7 fL; White Blood Count 16.9 K/mm3 (4.8-10.8)
[2025-10-15 07:54] LABS: Activated Partial Thrombo Time 23.1 seconds (22.8-30.6); INR 0.97 (0.9-1.1); Prothrombin Time 10.8 seconds (10.1-12.5)
[2025-10-15 07:55] LABS: Alanine Aminotransferase 23 U/L (12-78); Albumin Level 4.5 g/dl (3.5-5.0); Albumin/Globulin Ratio 1.2 (1.1-1.8); Alkaline Phosphatase 125 U/L (38-126); Anion Gap 17.7 mEq/L (5-15); Aspartate Amino Transferase 24 U/L (14-36); Bilirubin,Total 0.9 mg/dl (0.2-1.3); Blood Urea Nitrogen 12 mg/dl (7-17); Calcium 9.6 mg/dl (8.4-10.2); Carbon Dioxide 18 mmol/L (22.0-30.0); Chloride 94 mmol/L (98-107); Creatinine,Serum 0.80 mg/dl (0.52-1.04); Estimated Glomerular Filt Rate 74 ml/min (>60); GFR (African American) 89 ML/MIN (>60); Globulin 3.7 g/dL (1.3-3.2); Potassium 3.7 mmoL/L (3.5-5.1); Sodium 126 mmol/L (136-145); Total Protein,Serum 8.2 g/dl (6.3-8.2)
[2025-10-15 07:56] LABS: Glucose 515 mg/dl (74-100)
[2025-10-15] MEDS: ONDANSETRON 4MG/2ML VIAL 4 MG IV (07:58)
[2025-10-15] MEDS: BELLADONNA ALKALOIDS 60 ML ML PO (07:59)
[2025-10-15 08:06] LABS: Troponin I 0.04 ng/ml (0.00-0.034)
[2025-10-15 08:10] LABS: VBG HCO3 20.5 mmol/L (23-30); VBG PCO2 35.8 mmol/L (35-51); VBG PH 7.38 mmol/L (7.31-7.41); VBG PO2 39.7 mmol/L (28-40)
[2025-10-15 08:11] LABS: Lactate Venous 2.3 mmol/L (0.4-2.0)
[2025-10-15] MEDS: LACTATED RINGERS 1000ML 1,000 ML 999 ML IV (08:23)
[2025-10-15 08:34] LABS: D-Dimer 1.28 ug/mL (0.0-0.5)
--- NOTE | 2025-10-15 09:01 | CT_ITS ---
PROCEDURE INFORMATION: Exam: CTA Chest With Contrast Exam date and time: 10/15/2025 9:25 AM Age: 55 years old Clinical indication: Pain; Other: Cp, positive dimer TECHNIQUE: Imaging protocol: Computed tomographic angiography of the chest with contrast. Exam focused on the arteries. 3D rendering (Not supervised by radiologist): MIP and/or 3D reconstructed images were created by the technologist. Radiation optimization: All CT scans at this facility use at least one of these dose optimization techniques: automated exposure control; mA and/or kV adjustment per patient size (includes targeted exams where dose is matched to clinical indication); or iterative reconstruction. Contrast material: ISOVUE; Contrast volume: 70 ml; Contrast route: INTRAVENOUS (IV); COMPARISON: CT ANGIO CHEST PE PROTOCOL 07/11/2023 6:23 PM FINDINGS: Tubes, catheters and devices: Spinal stimulator wires are incompletely imaged. Pulmonary arteries: Pulmonary emboli extending from the distal right pulmonary artery into lobar, segmental and subsegmental pulmonary artery branches involving the right upper and middle lobes. Aorta: Mild atherosclerotic changes of the aorta and branch vessels. Veins: No reflux of contrast into the IVC or hepatic veins. Lungs: Calcified granuloma left lung. No focal consolidation. Minimal dependent atelectasis bilaterally. Pleural spaces: Unremarkable. No pneumothorax. No pleural effusion. Heart: The RV/LV ratio is abnormally elevated suggestive of right heart strain, measuring 1.3. Coronary arteries: Severe coronary artery calcifications are present. Lymph nodes: Small calcified left hilar lymph nodes. Gallbladder and biliary ducts: There has been a cholecystectomy. Intestine: Diverticulosis in the visualized upper colon. Bones/joints: Degenerative changes of the spine. Postop changes right proximal humerus. Soft tissues: Unremarkable. IMPRESSION: 1. Pulmonary emboli extending from the distal right pulmonary artery into lobar, segmental and subsegmental pulmonary artery branches of the right upper and middle lobes. 2. The RV/LV ratio is abnormally elevated suggestive of right heart strain, measuring 1.3. 3. Severe coronary artery calcifications are present.
[2025-10-15] MEDS: ACETAMINOPHEN 500MG TAB 1000 MG PO (09:03)
[2025-10-15] MEDS: SODIUM CHLORIDE 0.9% 10ML SYR (RAD ONLY) 10 ML IV ×2 (09:36→14:40)
[2025-10-15] MEDS: 0.9 % SODIUM CHLORIDE 50 ML VIAL IV ×2 (09:36→14:40)
[2025-10-15] MEDS: IOPAMIDOL-370 (76%);100ML BOTTLE 70 ML IV (09:36)
--- NOTE | 2025-10-15 09:54 | PC.NURSE ---
Bárbara Parham is currently on phone with [facility] for pt transfer per Dr Borges for multiple PE and possibly thrombectomy
--- NOTE | 2025-10-15 10:01 | PC.NURSE ---
Dr. Borges is on the phone with [facility] now.
--- NOTE | 2025-10-15 10:05 | PC.NURSE ---
gang supervisor contacted for bed
[2025-10-15 10:35] LABS: Troponin I 0.05 ng/ml (0.00-0.034)
--- NOTE | 2025-10-15 10:35 | EXP.HP ---
History of Present Illness *Admission Date: 10/15/25 *Reason for visit:: chest pain *History of present illness: Bee Colon is a 55-year-old female with a medical history significant for type 2 diabetes, hypertension, CAD, anxiety/depression, left BKA, previous osteomyelitis with amputation of toes on right foot who presented from home with complaint of chest pain that began this morning. States that around 3 AM she woke with substernal pain shooting to her back. Has had similar episodes previously. On arrival to the ER, she was able to speak in complete sentences. Found to be tachycardic and hypertensive. CT of her chest was obtained showing numerous subsegmental PEs on the right side with heart strain and RV to LV ratio of 1.3. Patient initiated on therapeutic Lovenox. Other remarkable labs include glucose of 515, sodium of 126, kidney function with BUN 12, creatinine 0.8. Mild anion gap of 17.7 but pH normal on VBG. White count elevated at 16.9. No focal sign of infection. Given her symptoms and presentation, medicine consulted for admission and further management of her PEs with cor pulmonale along with metabolic disturbances. On arrival to the floor, patient is complaining of some nausea. Says she has been nauseous with emesis intermittently for the past 3 to 4 months. Reports mixed compliance with her insulin and missing doses of her basal on average 3 times a week and missing mealtime doses about the same. Appears to have lost some weight since last visit with her BMI less than 40. Is satting in the low 90s on room air. Denies previous history of blood clots. Alert and oriented at baseline mentation. Appears to have flat affect. [facility] Disclaimer: The information contained in this section may have been updated after the patient was seen, as this information can be updated by other users. 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 Encounter for wound care DKA (diabetic ketoacidosis) Fracture of toe of right foot Diarrhea Nausea & vomiting Typical angina Encounter for immunization Presence of external cardiac defibrillator Takotsubo cardiomyopathy Keratosis Encounter for wound care Pre-ulcerative calluses Diabetic foot Ulcer of right heel Fracture of foot with nonunion Retained orthopedic hardware Onychogryphosis Onychodystrophy Keratosis Ulcer of right foot due to type 2 diabetes mellitus Ulcer of left foot due to type 2 diabetes mellitus Type 2 diabetes mellitus with Charcot's joint of left foot Obesity, Class III, BMI 40-49.9 (morbid obesity) Migraine Osteoarthritis History of diverticulitis History of cataract History of left heart catheterization Recurrent major depression resistant to treatment Blood culture positive for microorganism Anemia HTN (hypertension) Type 2 diabetes mellitus with diabetic neuropathy, with long-term current use of insulin History of myocardial infarction Hyperlipemia CAD (coronary artery disease) Hx MRSA infection Essential hypertension Vitamin D deficiency Surgical History Status post foot surgery H/O shoulder surgery Hx of BKA History of appendectomy History of cholecystectomy History of hysterectomy History of hand surgery History of foot surgery Family History Other Cancer Heart attack Hyperlipidemia Hypertension Stroke Social History Smoking Status: Unknown if ever smoked smoking status stop date: 07/17/2023 second hand exposure: No alcohol intake: never counseling given: No substance use type: denies use counseling given: No current occupational status: disabled Travel in the last 8 weeks?: None adopted: No caregiver/support person: No foster care: No household members: children housing: house lives independently: Yes marital status: number of children: 1 number of grandchildren: 0 education level: high school 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; 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 current occupational exposures/hazards: Yes pets and animals: Yes pets and animals: cat(s) Hx Recent Travel: No sexually active: No caffeine: Yes physical activity: none dyana/jain: Rastafari special dyana needs: No working smoke detector in home: Yes fire extinguisher in home: Yes carbon monox detector in home: Yes firearms in home: No do you feel safe at home: Yes victim of physical abuse: No victim of emotional abuse: No victim of sexual abuse: No would you like helpful sources: No Have you lived/traveled outside [place] in past 30 days?: No Contact w/someone who lives/traveled outside US past 30 days?: No Exposure to someone with infectious disease in past 14 days?: No Do you have a fever (greater than 100.4 F or 38 C)?: No Have you tested positive for COVID-19?: No Exposed to someone with COVID-19 in past 14 days?: No Do you have a sore throat?: No Do you have a cough?: No Do you have any weakness?: No Do you have any diarrhea?: No Are you experiencing any unusual bleeding?: No Do you have any muscle aches/pain?: No Do you have any abdominal pain?: No Are you experiencing loss of taste or smell?: No Other 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 Have you received the Flu Vaccine for this season: No Have you received the Pneumonia Vaccine: Yes Meds Home Medications and Allergies Home Medications ?Medication ?Instructions ?Recorded ?Confirmed ?Type insulin syringe-needle U-100 0.5 #500 ea 01/31/25 06/01/25 Rx mL 31 gauge x 03/31 (Sure Comfort Insulin Syringe) aspirin 81 mg chewable tablet 81 mg PO DAILY [facility] #90 06/01/25 08/02/25 Rx tabs atorvastatin 40 mg tablet 40 mg PO HS #90 tabs 06/01/25 08/02/25 Rx buspirone 7.5 mg tablet 7.5 mg PO BID #180 tabs 06/01/25 08/02/25 Rx dapagliflozin propanediol 10 mg 10 mg PO DAILY #90 tabs 06/01/25 10/15/25 Rx tablet ezetimibe 10 mg tablet 10 mg PO HS #90 tabs 06/01/25 08/02/25 Rx furosemide 40 mg tablet (Lasix) 40 mg PO DAILY #90 tabs 06/01/25 08/02/25 Rx insulin glargine 100 unit/mL (3 60 unit (0.6 mL) SQ BID #12 mL 06/01/25 08/02/25 Rx mL) subcutaneous pen metoprolol tartrate 100 mg tablet 100 mg PO BID #180 tabs 06/01/25 08/02/25 Rx pen needle, diabetic 31 gauge x #1,200 ea 06/01/25 06/01/25 Rx 516 (Unifine Pentips) pregabalin 200 mg capsule 200 mg PO BID #180 caps 06/01/25 08/02/25 Rx ranolazine 1,000 mg 1,000 mg PO BID #180 tabs 06/01/25 10/15/25 Rx tablet,extended release,12 hr rivaroxaban 2.5 mg tablet (Xarelto) 2.5 mg PO BIDWMEAL #180 tabs 06/01/25 08/02/25 Rx insulin aspart U-100 100 unit/mL 18 unit (0.18 mL) SQ TID #45 mL 06/14/25 08/02/25 Rx (3 mL) subcutaneous pen (Novolog FlexPen U-100 Insulin aspart) diphenoxylate-atropine 2.5 1 tab PO QID PRN diarrhea #30 tabs 07/13/25 08/02/25 Rx mg-0.025 mg tablet (Lomotil) magnesium oxide 400 mg (241.3 mg 400 mg PO DAILY 08/02/25 08/02/25 History magnesium) tablet zolpidem 5 mg tablet 5 mg PO HS PRN sleep #30 tabs 08/02/25 08/02/25 Rx blood-glucose sensor (Dexcom G7 #3 ea 09/05/25 Rx Sensor device) escitalopram oxalate 20 mg tablet 20 mg PO DAILY #90 tabs 09/05/25 Rx promethazine 12.5 mg tablet See Rx Instructions PO Q6H PRN 09/05/25 Rx nausea and vomiting #30 tabs tramadol 50 mg tablet 50 mg PO Q6H PRN breakthrough 09/05/25 Rx pain, moderate #120 tabs polyethylene glycol 3350 17 17 g PO DAILY PRN Constipation 10/15/25 10/15/25 History gram/dose oral powder (Miralax) New Prescriptions to Start Prescriptions: Allergies Allergy/AdvReac Type Severity Reaction Status Date / Time clopidogrel (From Plavix) Allergy Severe Hives Verified 10/15/25 11:24 amoxicillin (AMOXICILLIN) Allergy Unknown Unknown Verified 10/15/25 11:24 allergy reaction metoclopramide (From Reglan) AdvReac Intermediate dystonic Verified 10/15/25 14:55 reaction codeine (CODEINE) AdvReac Mild STOMACH Verified 10/15/25 11:24 CRAMPS morphine (MORPHINE) AdvReac Mild STOMACH Verified 10/15/25 11:24 CRAMPS oxycodone (From Percocet) AdvReac Mild STOMACH Verified 10/15/25 11:24 CRAMPS Exam Data for Last 24 hours Vital signs and Labs for Last 24 Hours: Temp Pulse Resp BP Pulse Ox O2 Del Method 99.7 F H 107 H 22 153/91 H 94 L Room Air 10/15/25 07:26 10/15/25 10:00 10/15/25 10:00 10/15/25 10:00 10/15/25 10:00 10/15/25 10:00 Laboratory Results - last 24 hr 10/15/25 06:53: WBC 16.9 H, RBC 5.42 H, Hgb 14.9, Hct 44.6, MCV 82.3, MCH 27.5, MCHC 33.4, RDW 14.1, Plt Count 333, MPV 11.2 H, Neut % (Auto) 82.5 H, Lymph % (Auto) 11.9, [place] % (Auto) 4.6, Eos % (Auto) 0.1, Baso % (Auto) 0.4, Neut # (Auto) 14.0 H, Lymph # (Auto) 2.0, [place] # (Auto) 0.8, Eos # (Auto) 0.0, Baso # (Auto) 0.1, PT 10.8, INR 0.97, APTT 23.1, D-Dimer 1.28 H, Sodium 126 L, Potassium 3.7, Chloride 94 L, Carbon Dioxide 18 L, Anion Gap 17.7 H, BUN 12, Creatinine 0.80, Estimated GFR 74, Est GFR ( Amer) 89, Glucose 515 H*, Calcium 9.6, Total Bilirubin 0.9, AST 24, ALT 23, Alkaline Phosphatase 125, Troponin I 0.04 H, Total Protein 8.2, Albumin 4.5, Globulin 3.7 H, Albumin/Globulin Ratio 1.2 10/15/25 08:02: VBG pH 7.38, VBG pCO2 35.8, VBG pO2 39.7, VBG HCO3 20.5 L, VBG Total CO2 21.6 L, VBG O2 Saturation 74.2 H, VBG Base Excess -4.7 L, VBG Lactic Acid 2.3 H I & O for Last 24 hours: Intake & Output 10/12/25 10/13/25 10/14/25 10/15/25 23:59 23:59 23:59 23:59 Weight 117.934 kg Constitutional Constitutional: mild distress, morbidly obese, chronically ill appearing and cooperative *Routine HEENT Exam Head: Present normocephalic Eye: Present EOMI and PERRL ENT: Present mucous membranes moist *Routine Neck Exam Neck: Present supple; Absent lymphadenopathy *Routine Respiratory Exam Respiratory: Present crackles (bases bilaterally in posterior lung field); Absent rhonchi or wheezes *Routine Cardiovascular Exam Cardiovascular: Present tachycardia *Routine Abdominal Exam Abdominal: Present soft and normoactive bowel sounds; Absent tenderness *Routine Rectal Exam Rectal:: deferred *Routine Genitalia Exam Genitalia:: deferred *Routine Extremities Exam Extremities: Absent cyanosis, clubbing or edema Comments: Left BKA. Right second toe amputation; chronic stasis wound on right hassan, scabbed with no significant erythema *Routine Skin Exam Skin: Present warm and wounds (Right lower hassan); Absent rash *Routine Neurological Exam Neurological: Present alert, oriented X3 and moving all extremities; Absent altered mental status Routine Psychiatric Exam Comments: Flat affect Assessment and Plan *Assessment and plan (1) Pulmonary embolism: Status: Acute Qualifiers: Acute cor pulmonale presence: with acute cor pulmonale Chronicity: acute Pulmonary embolism type: other Qualified Code(s): I26.09 - Other pulmonary embolism with acute cor pulmonale Category: Medical Code(s): I26.99 - Other pulmonary embolism without acute cor pulmonale (2) Morbid obesity: Status: Chronic Category: Medical Code(s): E66.01 - Morbid (severe) obesity due to excess calories (3) Nausea & vomiting: Status: Acute Category: Medical Code(s): R11.2 - Nausea with vomiting, unspecified (4) Peripheral vascular disease: Status: Chronic Category: Medical Code(s): I73.9 - Peripheral vascular disease, unspecified (5) Anxiety and depression: Status: Chronic Category: Medical Code(s): F41.9 - Anxiety disorder, unspecified; F32.A - Depression, unspecified (6) Status post amputation of toe of right foot: Status: Acute Category: Surgical Code(s): Z89.421 - Acquired absence of other right toe(s) (7) Type 2 diabetes mellitus with vascular disease: Status: Chronic Category: Medical Code(s): E11.59 - Type 2 diabetes mellitus with other circulatory complications (8) 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: Status: Chronic Qualifiers: Encounter type: initial encounter Qualified Code(s): S88.112A - Complete traumatic amputation at level between knee and ankle, left lower leg, initial encounter Category: Medical Code(s): S88.112A - Complete traumatic amputation at level between knee and ankle, left lower leg, initial encounter (9) CKD (chronic kidney disease): Status: Chronic Qualifiers: Chronic kidney disease stage: stage 3 (moderate) Chronic kidney disease stage 3 subtype: stage 3a (GFR 45-59) Qualified Code(s): N18.31 - Chronic kidney disease, stage 3a Category: Medical Code(s): N18.9 - Chronic kidney disease, unspecified (10) Essential hypertension: Status: Chronic Category: Medical Code(s): I10 - Essential (primary) hypertension Plan 55-year-old female with multiple comorbidities who presents with chest pain. Found to have submassive PE with cor pulmonale. On room air. Elevation in troponin detected. Heart strain noted on CT. Discussed case with ER physician, request admission for medical management given her symptoms and further monitoring before deeming stable to discharge home. I decided to admit to stepdown level of care for further treatment. Continuing therapeutic Lovenox. Will obtain echo in the morning. Pulmonology consulted to evaluate in the morning for anticoagulation support and follow-up when stable to discharge home. Problems addressed as follows: PE with cor pulmonale Acute myocardial injury - CT per my review showing multiple pulmonary emboli extending from right pulmonary artery into segmental branches of right upper and middle lobes. Right ventricle appears larger than left. Formal measurement of RV/LV ratio is 1.3. -Troponin elevated at 0.04. White count elevated 16.9, was consistent with stress reaction. No focal consolidation on chest imaging concerning for pneumonia. -Initiated on 1 mg/kg twice daily Lovenox. Received 120 mg in the ED. Continue every 12 hours. -Formal echocardiogram ordered for the morning along with venous Doppler bilateral lower extremities. Her history of amputation limits her mobility and increases her risk for DVT -Pulmonology consulted to evaluate in the morning and assist with oral anticoagulation recommendations as well as follow-up as an outpatient -Currently stable on room air, goal sats greater 90%. Low threshold to initiate supplemental oxygen. #Type 2 diabetes, uncontrolled with complications Nausea and vomiting ? A1c consistently above 9.5. Repeat obtained today, 10.6. Glucose 515 on arrival. Resume home Lantus 60 units twice daily and high intensity sliding scale insulin. Continue Farxiga 10 mg daily. - Complains of persistent nausea and vomiting for a few months. Suspect component of gastroparesis. Initially administered 10 mg IV dose once of Reglan. Unfortunately about an hour after administration developed what appears to be a dystonic reaction. See problem below. - Will continue with Zofran 4 mg as needed every 6-8 hours for nausea and erythromycin 250 mg ACHS for gastroparesis component to see if this improves her nausea - Would benefit from referral to GI as an outpatient for further management of gastric emptying study and suspected gastroparesis #Anxiety/depression ?Continue BuSpar 7.5 mg daily, Lexapro at decreased dose of 10 mg daily #CAD #PAD On therapeutic Lovenox, holding aspirin and Xarelto at this time. Stroke like sx dystonic reaction -Patient developed weakness in left upper extremity and had gaze deviation noted approximately an hour to an hour and a half after receiving her Reglan. Concern for stroke. Stroke protocol initiated. - CT/CTA head with no LVO or acute process per my review - spoke to stroke navigator at [facility] and [facility] Radiologist seperately, both concur there is no acute process - sx consistent with reaction to the reglan. Stop meds with risk of EPS at this time. - given valium 5mg IV and benadryl 25mg IV once with improvement in sx. monitoring [facility] as needed headache: Tylenol 650mg PO q4hp, will try Ubrelvy 100mg PO once if no improvement due to report of Hx of migraines. Full code Diabetic diet Lovenox 1 mg/kg twice daily
--- NOTE | 2025-10-15 10:46 | PC.NURSE ---
report given to GRETA Serra for room 218
[2025-10-15 11:28] LABS: POC Glucose,Bedside 428 gm/dL (70-110)
[2025-10-15] MEDS: ENOXAPARIN 120MG/0.8ML SYRINGE 120 MG SUBCUT (11:38)
[2025-10-15 12:11] LABS: Reflex Lactic Add Lactic Reflex
[2025-10-15] MEDS: INSULIN GLARGINE 100 UNITS/ML 3ML FLEXPEN 60 UNIT SUBCUT ×2 (12:13→21:38)
[2025-10-15] MEDS: humaLOG 100 UNITS/ML 10ML VIAL (SSI) SUBCUT ×3 (12:14→21:40)
[2025-10-15] MEDS: METOCLOPRAMIDE HCL 10MG/2ML VIAL 10 MG IVP (12:14)
[2025-10-15 12:45] LABS: Hemoglobin A1C 10.9 % (4.0-6.0)
--- NOTE | 2025-10-15 13:25 | PC.NURSE ---
Patient arrived to the floor via stretcher at 1055
[2025-10-15 13:57] LABS: Lactic Acid Follow Up (RFLX 1) 2.5 mmol/L (0.7-2.1)
--- NOTE | 2025-10-15 14:05 | CT_ITS ---
PROCEDURE INFORMATION: Exam: CTA Head With Contrast, Arteriography Exam date and time: 10/15/2025 2:34 PM Age: 55 years old Clinical indication: Stroke-like symptoms; Altered mental status/memory loss; Additional info: Possible stroke TECHNIQUE: Imaging protocol: Computed tomographic angiography of the head with contrast. Exam focused on the arteries. 3D rendering (Not supervised by radiologist): MIP and/or 3D reconstructed images were created by the technologist. Radiation optimization: All CT scans at this facility use at least one of these dose optimization techniques: automated exposure control; mA and/or kV adjustment per patient size (includes targeted exams where dose is matched to clinical indication); or iterative reconstruction. Contrast material: ISOVUE; Contrast volume: 80 ml; Contrast route: INTRAVENOUS (IV); COMPARISON: CT HEAD/BRAIN WO CON 10/15/2025 2:16 PM FINDINGS: ANTERIOR CIRCULATION: Right internal carotid artery: Moderate (50-69%) stenosis in the right internal carotid artery secondary to atherosclerotic plaque. Right middle cerebral artery: No occlusion or significant stenosis. No aneurysm. Right anterior cerebral artery: Hypoplastic a1 segment of the right anterior cerebral artery compensated via the contralateral RAMU and anterior communicating artery. No occlusion or significant stenosis distally. No aneurysm. Left internal carotid artery: Mild (less than 50%) stenosis in the left internal carotid artery secondary to atherosclerotic plaque. Left middle cerebral artery: No occlusion or significant stenosis. No aneurysm. Left anterior cerebral artery: No occlusion or significant stenosis. No aneurysm. POSTERIOR CIRCULATION: Right vertebral artery: Mild (less than 50%) stenosis in the V4 segment of the right vertebral artery secondary to atherosclerotic plaque. Left vertebral artery: Mild (less than 50%) stenosis in the V4 segment of the left vertebral artery secondary to atherosclerotic plaque. Basilar artery: No occlusion or significant stenosis. No aneurysm. Right posterior cerebral artery: No occlusion or significant stenosis. No aneurysm. Left posterior cerebral artery: No occlusion or significant stenosis. No aneurysm. Brain: No abnormally enhancing brain lesion, mass effect, or midline shift. Cerebral ventricles: No hydrocephalus. Bones/joints: No acute calvarial or skull base fracture. Soft tissues: Unremarkable. IMPRESSION: 1. No evidence of large vessel occlusion or high-grade stenosis in the intracranial cerebral arteries. 2. Moderate (50-69%) stenosis in the right internal carotid artery secondary to atherosclerotic plaque. 3. Mild (less than 50%) stenosis in the left internal carotid artery secondary to atherosclerotic plaque. 4. Mild (less than 50%) stenosis in the V4 segments of the bilateral vertebral arteries secondary to atherosclerotic plaque. PROCEDURE INFORMATION: Exam: CT Maxillofacial With Contrast Exam date and time: 10/15/2025 2:34 PM Age: 55 years old Clinical indication: Stroke-like symptoms; Altered mental status/memory loss; Additional info: Possible stroke TECHNIQUE: Imaging protocol: Computed tomography of the face with contrast. Radiation optimization: All CT scans at this facility use at least one of these dose optimization techniques: automated exposure control; mA and/or kV adjustment per patient size (includes targeted exams where dose is matched to clinical indication); or iterative reconstruction. COMPARISON: CT HEAD/BRAIN WO CON 10/15/2025 2:16 PM FINDINGS: Paranasal sinuses: No air-fluid levels. Orbital cavities: Bilateral lens replacement incidentally noted. Globes and orbital structures are otherwise unremarkable. Bones: No evidence of acute fracture. Bilateral temporomandibular joints are congruent. Pterygoid plates and lamina papyracea are intact. Soft tissues: Unremarkable. IMPRESSION: No acute findings.
--- NOTE | 2025-10-15 14:05 | CT_ITS ---
PROCEDURE INFORMATION: Exam: CT Head Without Contrast Exam date and time: 10/15/2025 2:16 PM Age: 55 years old Clinical indication: Stroke-like symptoms; Altered mental status/memory loss; Additional info: Possible stroke TECHNIQUE: Imaging protocol: Computed tomography of the head without contrast. Radiation optimization: All CT scans at this facility use at least one of these dose optimization techniques: automated exposure control; mA and/or kV adjustment per patient size (includes targeted exams where dose is matched to clinical indication); or iterative reconstruction. Other technique: STROKE PROTOCOL was implemented. COMPARISON: CT HEAD/BRAIN WO CON 07/11/2023 6:19 PM FINDINGS: Brain: No acute intracranial hemorrhage. No mass effect or midline shift. No extra-axial fluid collection. No evidence of acute/subacute infarct. Global cerebral volume loss periventricular white matter hypodensities related to chronic hypertensive microvascular disease are not significantly changed from prior exam. Cerebral ventricles: No hydrocephalus. Paranasal sinuses: No air fluid levels. Mastoid air cells: Visualized mastoid air cells are clear. Bones: No evidence of acute calvarial or skull base fracture. Soft tissues: Unremarkable. IMPRESSION: No evidence of acute intracranial hemorrhage or acute/subacute infarct. ASSESSMENT: ASPECTS ([facility] Stroke Program Early CT Score) is 10.
--- NOTE | 2025-10-15 14:05 | CT_ITS ---
PROCEDURE INFORMATION: Exam: CTA Neck With Contrast Exam date and time: 10/15/2025 2:34 PM Age: 55 years old Clinical indication: Stroke-like symptoms; Altered mental status/memory loss; Additional info: Possible stroke TECHNIQUE: Imaging protocol: Computed tomographic angiography of the neck with contrast. Exam focused on the cervical segments of the vasculature. 3D rendering (Not supervised by radiologist): MIP and/or 3D reconstructed images were created by the technologist. Radiation optimization: All CT scans at this facility use at least one of these dose optimization techniques: automated exposure control; mA and/or kV adjustment per patient size (includes targeted exams where dose is matched to clinical indication); or iterative reconstruction. Contrast material: ISOVUE; Contrast volume: 80 ml; Contrast route: INTRAVENOUS (IV); COMPARISON: CT ANGIO CHEST PE PROTOCOL 10/15/2025 9:25 AM FINDINGS: Right common carotid artery: No stenosis. No dissection or occlusion. Right internal carotid artery: Atherosclerotic plaque at the right carotid bulb and proximal internal carotid artery without significant stenosis. No dissection or aneurysm. Right external carotid artery: No occlusion or stenosis of the origin. Left common carotid artery: No stenosis. No dissection or occlusion. Left internal carotid artery: Atherosclerotic plaque at the left carotid bulb and proximal internal carotid artery without significant stenosis. No dissection or aneurysm. Left external carotid artery: No occlusion or stenosis of the origin. Right vertebral artery: Mild (less than 50%) ostial stenosis at the origin of the right vertebral artery secondary to atherosclerotic plaque. Left vertebral artery: Moderate (50-69%) ostial stenosis at the origin of the left vertebral artery secondary to atherosclerotic plaque. Pulmonary arteries: Pulmonary emboli are noted in the right pulmonary arteries and are grossly unchanged from chest CTA performed approximately 5 hours prior. This finding has already been directly communicate to the patient's physician as documented in the chest CTA report. Soft tissues: Unremarkable. Bones/joints: No acute osseous abnormality. IMPRESSION: 1. No evidence of dissection, occlusion or high-grade stenosis in the extracranial cerebral arteries. 2. Moderate (50-69%) ostial stenosis at the origin of the left vertebral artery secondary to atherosclerotic plaque. 3. Mild (less than 50%) ostial stenosis at the origin of the right vertebral artery secondary to atherosclerotic plaque. 4. Concurrent head CTA reported separately. REFERENCES: NASCET CRITERIA. The degree of stenosis in the cervical segment of the internal carotid artery is based on NASCET criteria. Normal is no stenosis. Mild is less than 50% stenosis. Moderate is 50-69% stenosis. Severe is 70% to 99% stenosis. Total occlusion is no detectable patent lumen.
[2025-10-15 14:06] LABS: Troponin I 0.05 ng/ml (0.00-0.034)
[2025-10-15 14:15] LABS: POC Glucose,Bedside 248 gm/dL (70-110)
[2025-10-15 14:22] LABS: Hematocrit 42.7 % (37.0-47.0); Hemoglobin 14.1 g/dL (12.2-16.2); Immature Granulocytes % 0.4 %; Mean Corpuscular HGB Conc 33.0 g/dL (31.8-35.4); Mean Corpuscular Hemoglobin 27.7 pg (27.0-31.2); Mean Corpuscular Volume 83.9 fl (81-99); Nucleated Red Blood Cells % 0 %; Platelet Count 304 K/mm3 (142-424); Red Blood Count 5.09 M/mm3 (4.20-5.40); Red Cell Distribution Width-SD 42.8 fL; White Blood Count 11.1 K/mm3 (4.8-10.8)
[2025-10-15] MEDS: diazePAM 10MG/2ML SYRINGE 5 MG IV (14:25)
[2025-10-15] MEDS: IOPAMIDOL-370 (76%);100ML BOTTLE 80 ML IV (14:40)
--- NOTE | 2025-10-15 15:15 | PC.NURSE ---
Patient still complaining of a headache. Called Dr. Soria to see if patient can get 650mg of tylenol po. He is going to put in the order and is also going to put in a one time does of ubrelvy incase the tylenol don't work, patient may be getting a migraine
[2025-10-15] MEDS: ACETAMINOPHEN 325MG TAB 650 MG PO (15:20)
[2025-10-15 15:33] LABS: Reflex Lactic (2 hrs) Add Lactic Reflex
--- NOTE | 2025-10-15 15:34 | PC.NURSE ---
At 1403 MEMO Arango notified Jamia Arango RN to come and look at the patient. Patient had some nystagmus in both eyes and patient was gazed to the left. Patient is complaining of a sudden onset of headache in the frontal area rating it 8/10 on the pain scale. FAST exam was done, patient had no tin flipper on left upper extermity, patient was not following commands properly. Stroke alert was called at [address] Soria was notified of the symptoms patient was having. Patient BGL was obtained at 1409 it was 248. At 1410 patient and Jamia Arango RN and radiology staff went down to CT scan. Patient had ct of head and neck with and without contrast. At [address] scan patient continued to be gazed to the left, stopped responding to all commands and started having jerking in left upper extermity. Dr. Soria wanted patient to receive 5mg of valium IV. Patients iv that was in the right AC became occluded so a new iv 18g was placed in patients right forearm. After the new iv was placed the 5mg of valium was given. Dr. Soria also wanted patient to receive benedryl iv 25mg. at 1430 25mg of benedryl was given. After the scans were complete patient was taken back up stairs and the scans were sent to [facility] on the vis melani that is in the ED. At 1515 when patient was complaining of the headache still and Dr. Soria was notified he received a phone call from the habitat management coordinator at [facility] and they agree that patient does not need to be transferred at out that they don't see anything acute on the patients ct scans
[2025-10-15 16:11] LABS: POC Glucose,Bedside 282 gm/dL (70-110)
[2025-10-15] MEDS: ERYTHROMYCIN LACTOBIONATE 250 MG in 0.9 % SODIUM CHLORIDE 100 ML 100 MG IV ×2 (16:34→23:38)
[2025-10-15] MEDS: UBROGEPANT 50MG TABLET 100 MG PO (16:41)
[2025-10-15 16:51] LABS: Lactic Acid Follow up (RFLX 2) 2.4 mmol/L (0.7-2.1)
--- NOTE | 2025-10-15 18:02 | PC.NURSE ---
Patient still complaining of a bad headache. She states it feels like a migraine . Patient was given ubrelvy at 1645. Patient refused eating.
[2025-10-15] MEDS: MORPHINE 4MG/ML SYRINGE 4 MG IV (18:19)
--- NOTE | 2025-10-15 18:27 | PC.NURSE ---
at 1805 Patient still complaining of headache frontal area more on the right side of her head. Patients bp was checked right arm was 181/91 rechecked blood pressure on the left arm and patient bp was 211/118. Dr. Soria was called due to patient still having headache and being hypertensive. at this time he is going to reorder her home medication of metoprolol but is putting in an order for 1.25mg of enalaprilat q6hr prn, give a dose now and to keep sbp below 180. Due to patient still having headache after receiving tylenol and ubrelvy he is ordering morphine for severe pain prn. Patient is allergic to morphine but the allergy is stomach cramps and at this time due to the severe headache Dr. Soria said to give the morphine because the risk out weighs the benefit with everything that the patient has going on at this time.
--- NOTE | 2025-10-15 18:31 | PC.NURSE ---
rechecked patient bp after giving the enalaprilat and patients bp is 178/92
[2025-10-15 21:29] LABS: POC Glucose,Bedside 324 gm/dL (70-110)
[2025-10-15] MEDS: ATORVASTATIN 40MG TABLET 40 MG PO (21:38)
[2025-10-15] MEDS: PANTOPRAZOLE 40MG TABLET 40 MG PO (21:38)
[2025-10-15] MEDS: METOPROLOL TARTRATE 50MG TABLET 100 MG PO (21:38)
[2025-10-16] VITALS (10 sets, daily range): BP systolic 120–165; BP diastolic 61–99; PULSE 54–111; RESP 12–24; TEMP 36.7–38.9; O2SAT 90–97; BMI 38.1
[2025-10-16] MEDS: ACETAMINOPHEN 325MG TAB 650 MG PO ×3 (00:04→08:12)
[2025-10-16] MEDS: ENOXAPARIN 120MG/0.8ML SYRINGE 120 MG SUBCUT (00:04)
[2025-10-16 04:44] LABS: POC Glucose,Bedside 298 gm/dL (70-110)
[2025-10-16] MEDS: UBROGEPANT 50MG TABLET 100 MG PO (05:55)
[2025-10-16 06:01] LABS: Hematocrit 39.6 % (37.0-47.0); Hemoglobin 13.4 g/dL (12.2-16.2); Immature Granulocytes % 0.3 %; Mean Corpuscular HGB Conc 33.8 g/dL (31.8-35.4); Mean Corpuscular Hemoglobin 28.1 pg (27.0-31.2); Mean Corpuscular Volume 83.0 fl (81-99); Nucleated Red Blood Cells % 0 %; Platelet Count 271 K/mm3 (142-424); Red Blood Count 4.77 M/mm3 (4.20-5.40); Red Cell Distribution Width-SD 42.1 fL; White Blood Count 12.9 K/mm3 (4.8-10.8)
[2025-10-16 06:15] LABS: Albumin Level 3.4 g/dl (3.5-5.0); Chloride 101 mmol/L (98-107); Potassium 4.2 mmoL/L (3.5-5.1); Sodium 133 mmol/L (136-145)
[2025-10-16 06:18] LABS: Alanine Aminotransferase 12 U/L (12-78); Albumin/Globulin Ratio 1.0 (1.1-1.8); Alkaline Phosphatase 82 U/L (38-126); Anion Gap 16.2 mEq/L (5-15); Aspartate Amino Transferase 27 U/L (14-36); Bilirubin,Total 0.5 mg/dl (0.2-1.3); Blood Urea Nitrogen 9 mg/dl (7-17); Calcium 8.2 mg/dl (8.4-10.2); Carbon Dioxide 20 mmol/L (22.0-30.0); Creatinine Clearance Estimated 151 mL/min (50-200); Creatinine,Serum 0.70 mg/dl (0.52-1.04); Estimated Glomerular Filt Rate 86 ml/min (>60); GFR (African American) 104 ML/MIN (>60); Globulin 3.4 g/dL (1.3-3.2); Glucose 239 mg/dl (74-100); Magnesium 1.7 mg/dl (1.6-2.3); Total Protein,Serum 6.8 g/dl (6.3-8.2)
[2025-10-16] MEDS: ERYTHROMYCIN LACTOBIONATE 250 MG in 0.9 % SODIUM CHLORIDE 100 ML 100 MG IV ×4 (06:22→21:02)
[2025-10-16] MEDS: humaLOG 100 UNITS/ML 10ML VIAL (SSI) SUBCUT ×3 (06:22→17:19)
[2025-10-16 06:56] LABS: POC Glucose,Bedside 231 gm/dL (70-110)
[2025-10-16] MEDS: DEFINITY US ECHO CONTRAST 2ML INJ 2 MG IV ×2 (07:35→07:36)
--- NOTE | 2025-10-16 08:31 | HMH.PHAAMS2 ---
- Antimicrobial Stewardship Review culture & sensitivity review Stewardship interventions: culture & sensitivity review (ERYTHOMYCIN DOSING FOR GASTEROPORESIS.)
[2025-10-16] MEDS: INSULIN GLARGINE 100 UNITS/ML 3ML FLEXPEN 60 UNIT SUBCUT ×2 (08:48→21:01)
[2025-10-16] MEDS: METOPROLOL TARTRATE 50MG TABLET 100 MG PO ×2 (08:49→21:01)
[2025-10-16] MEDS: ESCITALOPRAM 10MG TABLET 10 MG PO (08:49)
[2025-10-16] MEDS: DAPAGLIFLOZIN PROPANEDIOL 10 MG TABLET PO (08:49)
[2025-10-16] MEDS: SPIRONOLACTONE 25MG TABLET 25 MG PO (08:49)
[2025-10-16] MEDS: BUSPIRONE HCL 5 MG TABLET 7.5 MG PO ×2 (08:50→21:01)
[2025-10-16] MEDS: NYSTATIN TOPICAL POWDER 30GM TP (08:50)
--- NOTE | 2025-10-16 09:52 | EXP.PULM.CON ---
History of Present Illness History of present illness: Ms. Colon is a 55-year-old male presented to the ER with worsening chest pain found to be having pulmonary embolism and pulmonary was called for further evaluation and management. [facility] Disclaimer: The information contained in this section may have been updated after the patient was seen, as this information can be updated by other users. 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 Encounter for wound care DKA (diabetic ketoacidosis) Fracture of toe of right foot Diarrhea Nausea & vomiting Typical angina Encounter for immunization Presence of external cardiac defibrillator Takotsubo cardiomyopathy Keratosis Encounter for wound care Pre-ulcerative calluses Diabetic foot Ulcer of right heel Fracture of foot with nonunion Retained orthopedic hardware Onychogryphosis Onychodystrophy Keratosis Ulcer of right foot due to type 2 diabetes mellitus Ulcer of left foot due to type 2 diabetes mellitus Type 2 diabetes mellitus with Charcot's joint of left foot Obesity, Class III, BMI 40-49.9 (morbid obesity) Migraine Osteoarthritis History of diverticulitis History of cataract History of left heart catheterization Recurrent major depression resistant to treatment Blood culture positive for microorganism Anemia HTN (hypertension) Type 2 diabetes mellitus with diabetic neuropathy, with long-term current use of insulin History of myocardial infarction Hyperlipemia CAD (coronary artery disease) Hx MRSA infection Essential hypertension Vitamin D deficiency Surgical History Status post foot surgery H/O shoulder surgery Hx of BKA History of appendectomy History of cholecystectomy History of hysterectomy History of hand surgery History of foot surgery Family History Other Cancer Heart attack Hyperlipidemia Hypertension Stroke Social History Smoking Status: Unknown if ever smoked smoking status stop date: 07/17/2023 second hand exposure: No alcohol intake: never counseling given: No substance use type: denies use counseling given: No current occupational status: disabled Travel in the last 8 weeks?: None adopted: No caregiver/support person: No foster care: No household members: children housing: house lives independently: Yes marital status: number of children: 1 number of grandchildren: 0 education level: high school 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; 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 current occupational exposures/hazards: Yes pets and animals: Yes pets and animals: cat(s) Hx Recent Travel: No sexually active: No caffeine: Yes physical activity: none dyana/mu-ism: Lutheran special dyana needs: No working smoke detector in home: Yes fire extinguisher in home: Yes carbon monox detector in home: Yes firearms in home: No do you feel safe at home: Yes victim of physical abuse: No victim of emotional abuse: No victim of sexual abuse: No would you like helpful sources: No Have you lived/traveled outside [place] in past 30 days?: No Contact w/someone who lives/traveled outside US past 30 days?: No Exposure to someone with infectious disease in past 14 days?: No Do you have a fever (greater than 100.4 F or 38 C)?: No Have you tested positive for COVID-19?: No Exposed to someone with COVID-19 in past 14 days?: No Do you have a sore throat?: No Do you have a cough?: No Do you have any weakness?: No Do you have any diarrhea?: No Are you experiencing any unusual bleeding?: No Do you have any muscle aches/pain?: No Do you have any abdominal pain?: No Are you experiencing loss of taste or smell?: No Review of Systems Constitutional Constitutional: Denies anorexia, Denies body ache(s) and Denies fatigue Eyes Eyes: Denies eye discharge, Denies dry eyes, Denies irritation and Denies itchy eyes ENT Ears, Nose, Mouth, and Throat: Denies epistaxis, Denies facial pain, Denies lip swelling and Denies throat swelling *Cardiovascular Cardiovascular: Reports dyspnea and Reports dyspnea on exertion *Respiratory Respiratory: Reports chest congestion, Reports cough, Reports dyspnea, Reports dyspnea on exertion, Reports excessive phlegm production, Denies hemoptysis, Reports pain on inspiration, Reports pain with cough and Reports wheezing *Gastrointestinal Gastrointestinal: Denies abdominal pain, Denies belching and Denies cramping *Musculoskeletal Musculoskeletal: Reports back pain, Reports myalgias and Reports other (No small joint swelling or Pain) Psychiatric Psychiatric: Denies homicidal ideation and Denies suicidal ideation Endocrine Endocrine: Denies fatigue and Denies heat intolerance Hematologic/Lymphatic Hematologic/Lymphatic: Denies easy bleeding and Denies lymphadenopathy Allergic/Immunologic Allergic/Immunologic: Denies itchy eyes, Denies lip swelling, Denies throat swelling and Reports wheezing Pulmonology Exam Inpatient Vital signs and Labs for Last 24 Hours: Temp Pulse Resp BP Pulse Ox O2 Del Method O2 Flow Rate 99.0 F 86 14 139/78 90 L Room Air 95 10/16/25 08:00 10/16/25 08:00 10/16/25 08:00 10/16/25 08:00 10/16/25 08:00 10/16/25 09:00 10/16/25 03:00 Laboratory Results - last 24 hr 10/15/25 06:53: Hemoglobin A1c 10.9 H 10/15/25 09:50: Troponin I 0.05 H 10/15/25 11:21: POC Glucose 428 H* 10/15/25 13:30: WBC 11.1 H D, RBC 5.09, Hgb 14.1, Hct 42.7, MCV 83.9, MCH 27.7, MCHC 33.0, RDW 14.0, Plt Count 304, MPV 11.4 H, Neut % (Auto) 67.8, Lymph % (Auto) 23.7, [place] % (Auto) 7.0, Eos % (Auto) 0.5, Baso % (Auto) 0.6, Neut # (Auto) 7.6, Lymph # (Auto) 2.6, [place] # (Auto) 0.8, Eos # (Auto) 0.1, Baso # (Auto) 0.1, Lactate 2.5 H, Troponin I 0.05 H 10/15/25 14:09: POC Glucose 248 H 10/15/25 16:04: POC Glucose 282 H 10/15/25 16:08: Lactate 2.4 H 10/15/25 20:12: POC Glucose 324 H* 10/16/25 00:00: POC Glucose 298 H 10/16/25 05:31: WBC 12.9 H, RBC 4.77, Hgb 13.4, Hct 39.6, MCV 83.0, MCH 28.1, MCHC 33.8, RDW 14.0, Plt Count 271, MPV 11.2 H, Neut % (Auto) 76.4, Lymph % (Auto) 17.0, [place] % (Auto) 6.1, Eos % (Auto) 0.0 L, Baso % (Auto) 0.2, Neut # (Auto) 9.8 H, Lymph # (Auto) 2.2, [place] # (Auto) 0.8, Eos # (Auto) 0.0, Baso # (Auto) 0.0, Sodium 133 L, Potassium 4.2, Chloride 101, Carbon Dioxide 20 L, Anion Gap 16.2 H, BUN 9, Creatinine 0.70, Estimated Creat Clear 151, Estimated GFR 86, Est GFR ( Amer) 104, Glucose 239 H D, Calcium 8.2 L, Magnesium 1.7, Total Bilirubin 0.5, AST 27, ALT 12 D, Alkaline Phosphatase 82, Total Protein 6.8, Albumin 3.4 L D, Globulin 3.4 H, Albumin/Globulin Ratio 1.0 L 10/16/25 06:16: POC Glucose 231 H I & O for Labs for Last 24 Hours: Intake & Output 10/13/25 10/14/25 10/15/25 10/16/25 23:59 23:59 23:59 23:59 Intake Total 1700 / 1700 540 / 540 Output Total 500 / 500 750 / 750 Balance 1200 / 1200 -210 / -210 Weight 238 lb 2 oz 237 lb 3.478 oz Constitutional: Present mild distress Head: Present normocephalic and atraumatic ENT: Present normal exam, normal oropharynx and mucous membranes moist Neck: Present normal inspection and full ROM Respiratory: Present normal respiratory effort and able to speak in complete sentences; Absent respiratory distress, rhonchi, wheezes or crackles Cardiac: Present S1/S2, Tachycardia and radial pulses present GI: Present soft and distention; Absent tenderness or guarding Rectal (female): Present deferred (female): Present deferred Skin: Present intact; Absent cyanosis or jaundice Neuro: Present alert, awake and oriented x 3 Extremities: Present normal inspection; Absent clubbing or cyanosis Psychiatric: Present normal affect and cooperative Meds Home Medications and Allergies Home Medications ?Medication ?Instructions ?Recorded ?Confirmed ?Type insulin syringe-needle U-100 0.5 #500 ea 01/31/25 06/01/25 Rx mL 31 gauge x 5/16 (Sure Comfort Insulin Syringe) aspirin 81 mg chewable tablet 81 mg PO DAILY [facility] #90 06/01/25 10/15/25 Rx tabs atorvastatin 40 mg tablet 40 mg PO HS #90 tabs 06/01/25 10/15/25 Rx buspirone 7.5 mg tablet 7.5 mg PO BID #180 tabs 06/01/25 10/15/25 Rx dapagliflozin propanediol 10 mg 10 mg PO DAILY #90 tabs 06/01/25 10/15/25 Rx tablet ezetimibe 10 mg tablet 10 mg PO HS #90 tabs 06/01/25 10/16/25 Rx furosemide 40 mg tablet (Lasix) 40 mg PO DAILY #90 tabs 06/01/25 10/15/25 Rx insulin glargine 100 unit/mL (3 60 unit (0.6 mL) SQ BID #12 mL 06/01/25 10/16/25 Rx mL) subcutaneous pen metoprolol tartrate 100 mg tablet 100 mg PO BID #180 tabs 06/01/25 10/16/25 Rx pen needle, diabetic 31 gauge x #1,200 ea 06/01/25 06/01/25 Rx 5/16 (Unifine Pentips) pregabalin 200 mg capsule 200 mg PO BID #180 caps 06/01/25 10/16/25 Rx ranolazine 1,000 mg 1,000 mg PO BID #180 tabs 06/01/25 10/16/25 Rx tablet,extended release,12 hr rivaroxaban 2.5 mg tablet (Xarelto) 2.5 mg PO BIDWMEAL #180 tabs 06/01/25 10/16/25 Rx insulin aspart U-100 100 unit/mL 18 unit (0.18 mL) SQ TID #45 mL 06/14/25 10/15/25 Rx (3 mL) subcutaneous pen (Novolog FlexPen U-100 Insulin aspart) diphenoxylate-atropine 2.5 1 tab PO QID PRN diarrhea #30 tabs 07/13/25 10/15/25 Rx mg-0.025 mg tablet (Lomotil) magnesium oxide 400 mg (241.3 mg 400 mg PO DAILY 08/02/25 10/15/25 History magnesium) tablet zolpidem 5 mg tablet 5 mg PO HS PRN sleep #30 tabs 08/02/25 10/15/25 Rx blood-glucose sensor (Dexcom G7 #3 ea 09/05/25 Rx Sensor device) escitalopram oxalate 20 mg tablet 20 mg PO DAILY #90 tabs 09/05/25 10/15/25 Rx tramadol 50 mg tablet 50 mg PO Q6H PRN breakthrough 09/05/25 10/15/25 Rx pain, moderate #120 tabs polyethylene glycol 3350 17 17 g PO DAILY PRN Constipation 10/15/25 10/15/25 History gram/dose oral powder (Miralax) insulin aspart U-100 100 unit/mL 20 unit SQ TID 10/16/25 10/16/25 History (3 mL) subcutaneous pen (Novolog FlexPen U-100 Insulin aspart) promethazine 12.5 mg tablet 12.5 - 25 mg PO Q6H PRN nausea and 10/16/25 10/16/25 History vomiting New Prescriptions to Start Prescriptions: Allergies Allergy/AdvReac Type Severity Reaction Status Date / Time clopidogrel (From Plavix) Allergy Severe Hives Verified 10/15/25 11:24 amoxicillin (AMOXICILLIN) Allergy Unknown Unknown Verified 10/15/25 11:24 allergy reaction metoclopramide (From Reglan) AdvReac Intermediate dystonic Verified 10/15/25 14:55 reaction codeine (CODEINE) AdvReac Mild STOMACH Verified 10/15/25 11:24 CRAMPS morphine (MORPHINE) AdvReac Mild STOMACH Verified 10/15/25 11:24 CRAMPS oxycodone (From Percocet) AdvReac Mild STOMACH Verified 10/15/25 11:24 CRAMPS Results Laboratory Findings 10/16/25 05:31 10/16/25 05:31 PT/INR, D-dimer PT 10.8 seconds (10.1-12.5) 10/15/25 06:53 INR 0.97 (0.9-1.1) 10/15/25 06:53 D-Dimer 1.28 ug/mL (0.0-0.5) H 10/15/25 06:53 Abnormal lab findings: Abnormal Labs 10/15/25 10/15/25 10/15/25 06:53 08:02 09:50 WBC 16.9 H RBC 5.42 H MPV 11.2 H Neut % (Auto) 82.5 H Eos % (Auto) Neut # (Auto) 14.0 H D-Dimer 1.28 H VBG HCO3 20.5 L VBG Total CO2 21.6 L VBG O2 Saturation 74.2 H VBG Base Excess -4.7 L VBG Lactic Acid 2.3 H Sodium 126 L Chloride 94 L Carbon Dioxide 18 L Anion Gap 17.7 H Glucose 515 H* POC Glucose Hemoglobin A1c 10.9 H Lactate Calcium Troponin I 0.04 H 0.05 H Albumin Globulin 3.7 H Albumin/Globulin Ratio 10/15/25 10/15/25 10/15/25 11:21 13:30 14:09 WBC 11.1 H D RBC MPV 11.4 H Neut % (Auto) Eos % (Auto) Neut # (Auto) D-Dimer VBG HCO3 VBG Total CO2 VBG O2 Saturation VBG Base Excess VBG Lactic Acid Sodium Chloride Carbon Dioxide Anion Gap Glucose POC Glucose 428 H* 248 H Hemoglobin A1c Lactate 2.5 H Calcium Troponin I 0.05 H Albumin Globulin Albumin/Globulin Ratio 10/15/25 10/15/25 10/15/25 16:04 16:08 20:12 WBC RBC MPV Neut % (Auto) Eos % (Auto) Neut # (Auto) D-Dimer VBG HCO3 VBG Total CO2 VBG O2 Saturation VBG Base Excess VBG Lactic Acid Sodium Chloride Carbon Dioxide Anion Gap Glucose POC Glucose 282 H 324 H* Hemoglobin A1c Lactate 2.4 H Calcium Troponin I Albumin Globulin Albumin/Globulin Ratio 10/16/25 10/16/25 10/16/25 00:00 05:31 06:16 WBC 12.9 H RBC MPV 11.2 H Neut % (Auto) Eos % (Auto) 0.0 L Neut # (Auto) 9.8 H D-Dimer VBG HCO3 VBG Total CO2 VBG O2 Saturation VBG Base Excess VBG Lactic Acid Sodium 133 L Chloride Carbon Dioxide 20 L Anion Gap 16.2 H Glucose 239 H D POC Glucose 298 H 231 H Hemoglobin A1c Lactate Calcium 8.2 L Troponin I Albumin 3.4 L D Globulin 3.4 H Albumin/Globulin Ratio 1.0 L Assessment and Plan *Assessment and plan (1) Pulmonary embolism: Status: Acute Qualifiers: Pulmonary embolism type: other Chronicity: acute Acute cor pulmonale presence: with acute cor pulmonale Qualified Code(s): I26.09 - Other pulmonary embolism with acute cor pulmonale Category: Medical Code(s): I26.99 - Other pulmonary embolism without acute cor pulmonale Plan Ms. Colon is a 55-year-old male presented to the ER with worsening chest pain found to be having pulmonary embolism and pulmonary was called for further evaluation and management. She denies any personal history or family history of blood clots. Relatively sedentary lifestyle. History of left BKA, right second toe osteomyelitis status post amputation. Febrile at 102. Neutrophilic predominant leukocytosis improving.Blood gas upon admission did not show any evidence of hypoxic/hypercarbic respiratory failure. Seen PE upon admission nonocclusive pulmonary emboli in the right main pulmonary artery extending into the upper and lower lobe segmental branches. No dense consolidative/airspace changes. LE doppler, No DVT. Troponins elevated at 0.05 upon admission. PE likely unprovoked given her sedentary lifestyle, need indefinite anticoagulation at this point of time No respiratory distress on room air saturating 95% and above. Plan: Anticoagulation can be weaned Eliquis, likely need indefinite anticoagulation given provoked PE with nonmodifiable risk given sedentary lifestyle Oxygen supplementation on as-needed basis to maintain O2 saturation goal of 90% and above Echocardiogram to evaluate for extent of RV dysfunction prior to discharge No need for antibiotics from pulmonary standpoint. # Thank you for involving pulmonary in this patient care. Will follow the patient in pulmonary clinic 1 to 2 weeks postdischarge.
--- NOTE | 2025-10-16 10:08 | HMH.PTEV ---
Physical Therapy Evaluation Rehab PT IP Evaluation Start: 10/16/25 08:07 Freq: ONCE Status: Active Protocol: Document 10/16/25 10:04 HERBERT (Rec: 10/16/25 10:08 HERBERT [id number]) Subjective/History History History 55-year-old female with a medical history significant for type 2 diabetes, hypertension, CAD, anxiety/ depression, left BKA, previous osteomyelitis with amputation of toes on right foot who presented from home with complaint of chest pain that began this morning. States that around 3 AM she woke with substernal pain shooting to her back. Has had similar episodes previously. On arrival to the ER, she was able to speak in complete sentences. Found to be tachycardic and hypertensive. CT of her chest was obtained showing numerous subsegmental PEs on the right side with heart strain and RV to LV ratio of 1.3. Patient initiated on therapeutic Lovenox. Other remarkable labs include glucose of 515, sodium of 126, kidney function with BUN 12, creatinine 0.8. Mild anion gap of 17.7 but pH normal on VBG. White count elevated at 16.9. No focal sign of infection. Given her symptoms and presentation, medicine consulted for admission and further management of her PEs with cor pulmonale along with metabolic disturbances. Subjective Subjective Pt reports she lives with her daughter, ramp to enter the home, she generally uses a w/c for all mobility. Does not have her L prosthetic leg with her at this time and unable to assess standing due to this. [facility] How much help from another person do you currently need... Turning from your None back to your side while in a flat bed without using bedrails? Moving from lying on None back to sitting on the side of a flat bed without using bedrails? Moving to and from a A little bed to a chair ( including a wheelchair)? Standing up from a A little chair using your arms? (e.g., wheelchair, bedside chair) Walking in hospital A lot room? Climbing 3-5 steps A lot with a railing? Mobility Score 18 Mobility Level [facility] Mobility 6 Walk 10 steps or more Mobility Calculator Rehab PT IP Eval Objective Appearance Patient Behavior Appropriate Patient Orientation Person,Place,Time Difficulty following none instructions Speech Pattern Clear Ambulation Patient Able to No Ambulate Balance Ability to Arise Able, uses arms to help Sitting Balance Steady, safe Dynamic Sitting Good Balance Ability Transfers Bed Transfer Ability Independent Rehab PT IP prob,goals,plan Problems Date of Evaluation: 10/16/25 PT IP Problems Transfers Rehab Potential Rehab Potential Good Plan PT Intervention Plan Transfers,Therapeutic Exercise PT Plan Frequency Daily Duration LOS Discharge Goals Sit to Stand Chair Contact Guard/Hand Hold Transfer Ability Discharge Plan PT Discharge Plan Pt is currently appropriate to return home once medically stable for d/c. Skilled acute care therapy is necessary to imporve transfers in order to aid pt return to [facility]. Eval Complexity Eval Charge Codes 74341 - High Complexity PHYSICIAN CERTIFICATION: I certify the specified therapy services for Bee Colon are required, authorized, and reviewed every 30 days.
[2025-10-16 10:11] LABS: Adenovirus,PCR Not Detected (NotDetected); Chlamydophila Pneumoniae, PCR Not Detected (NotDetected); Coronavirus 19, PCR Not Detected (NotDetected); Coronovirus HKU1,PCR Not Detected (NotDetected); Influenza A, PCR Not Detected (NotDetected); Influenza AH1, 2009 Not Detected (NotDetected); Influenza AH1, PCR Not Detected (NotDetected); Influenza AH3,PCR Not Detected (NotDetected); Influenza B, PCR Not Detected (NotDetected); Mycoplasma Pneumoniae, PCR Not Detected (NotDetected); Parainfluenza 1, PCR Not Detected (NotDetected); Parainfluenza 2, PCR Not Detected (NotDetected); Parainfluenza 3, PCR Not Detected (NotDetected); Parainfluenza 4, PCR Not Detected (NotDetected)
--- NOTE | 2025-10-16 10:24 | PC.NURSE ---
ORDERED MORPHONE 2MG FOR PT'S HEADACHE DUE TO PT RECIEVING IT YESTERDAY AND IT BEING THE ONLY THING TO HELP HER HEADEACHE YESTERDAY. WHEN I TOOK MED INTO ROOM TO ADMINISTER IT PT WAS VERY HESITANT TO TAKE IT BECAUSE IT IS ON HER ALLERGY LIST (GIVES HER STOMACH CRAMPS). ASKED NESSA BURRIS FRO GUIDANCE. SHE STATED SHE WOULD ORDER A ONE TIME DOSE OF LORTAB 5MG.
--- NOTE | 2025-10-16 10:25 | HMH.OTEV ---
OT Evaluation Rehab OT IP Evaluation Start: 10/16/25 08:09 Freq: ONCE Status: Active Protocol: Document 10/16/25 10:20 [facility] (Rec: 10/16/25 10:24 [facility] [id number]) Rehab OT IP Assessment Subjective History 55-year-old female with a medical history significant for type 2 diabetes, hypertension, CAD, anxiety/ depression, left BKA, previous osteomyelitis with amputation of toes on right foot who presented from home with complaint of chest pain that began this morning. States that around 3 AM she woke with substernal pain shooting to her back. Has had similar episodes previously. On arrival to the ER, she was able to speak in complete sentences. Found to be tachycardic and hypertensive. CT of her chest was obtained showing numerous subsegmental PEs on the right side with heart strain and RV to LV ratio of 1.3. Patient initiated on therapeutic Lovenox. Other remarkable labs include glucose of 515, sodium of 126, kidney function with BUN 12, creatinine 0.8. Mild anion gap of 17.7 but pH normal on VBG. White count elevated at 16.9. No focal sign of infection. Given her symptoms and presentation, medicine consulted for admission and further management of her PEs with cor pulmonale along with metabolic disturbances. Subjective Pt reports she lives with her daughter, ramp to enter the home, she generally uses a w/c for all functional mobility tasks. Does not have her L prosthetic leg with her at this time and unable to assess standing due to this. Pt claims she is normally independent with all ADLs and can complete light IADLs. Daughter assists with heavier IADLs. Objective Patient Orientation Person,Place,Birthday Right Upper WFL Extremity Gross ROM Left Upper Extremity WFL Gross ROM Bed Mobility bed mobility-scooting,bed mobility - supine/sit Assist Level Supervision/Stand by Rehab OT IP prob,goals,plan Problems Date of Evaluation: 10/16/25 OT IP Problems Bed Mobility,Transfers,Balance,Self care,Safety Rehab Potential Rehab Potential Good Equipment Needs Assistive Devices Rolling / Wheeled Walker,Wheelchair Plan OT intervention Plan Bed Mobility,Transfers,Balance,Self care,Safety, Therapeutic Exercise OT Plan Frequency Daily Duration LOS Discharge Goals Bed Mobility Ability Independent,Standby Assistance Sit to Stand Chair Contact Guard/Hand Hold Transfer Ability Chair Transfer Contact Guard/Hand Hold Ability Chair Transfer Stand Step Pivot Technique Chair Transfer Rolling Walker Assistive Devices Lower Body Dressing Contact Guard Ability Upper Body Dressing Standby Assistance Ability Overall Commode/ Contact Guard Toilet Transfer Ability Commode/Toilet Stand Step Pivot Transfer Technique Discharge Plan OT Discharge Plan Pt will continue to be seen for OT services while at [facility]. Pt can return home once is medically stable per physician. Continued skilled therapy services at important to continue during hospital stay in order to improve overall functional transfers, ADL independence, strength, and endurance to reach PLOF. Eval Complexity Eval Charge Codes 56500 - Moderate Complexity PHYSICIAN CERTIFICATION: I certify the specified therapy services for Bee Colon are required, authorized, and reviewed every 30 days.
[2025-10-16] MEDS: HYDROCODONE/APAP 5/325 MG TABLET 1 TAB PO (10:29)
[2025-10-16] MEDS: APIXABAN 5MG TABLET 10 MG PO ×2 (10:30→21:00)
--- NOTE | 2025-10-16 10:43 | SW/DCPLANNER ---
Per PT/OT no needs at this time.
[2025-10-16 12:58] LABS: POC Glucose,Bedside 196 gm/dL (70-110)
[2025-10-16] MEDS: ONDANSETRON 4MG/2ML VIAL 4 MG IV (13:35)
--- NOTE | 2025-10-16 13:57 | CA_ITS ---
APPROVED REPORT EXAM: Limited 2D Echocardiogram with contrast Manager Transportation Planning: Aracely Sifuentes CRT Ht: 5 ft 6 in Wt: 238lbs BSA: 2.15 BP: 153/91 mmHg Indications: PE's Check for strain, stents, DM, HTN,HLD Limited echo w definity due to body habitus Echo Enhancing Agent Indication: Endocardial border delineation Agent(s) / Amount(s) Used: Definity 2 cc Comments: Definity given. M-Mode Dimensions RVDd 2.86 cm (0.9-2.6) LA Diam 3.97 cm (1.9-4.0) LVDd 4.87 cm (3.5-5.7) LVDs 3.51 cm (3.5-5.7) IVSd 2.15 cm (0.6-1.1) PWd 1.31 cm (0.6-1.1) EF (Teich) 54.00% FS 27.90% EDV (Teich) 111.20 mL ESV (Teich) 51.20 mL LV Diastology E Decel Time 163 (160-240 msec) E/A Ratio 0.63 Aortic Valve AO Peak GR. 3.00 mmHg Mitral Valve MV A Velocity 79.0 (40-130 cm/s) E/A Ratio 0.63 Pulmonary Valve PV Peak Velocity 103.0 (50-150 cm/s) Tricuspid Valve TR P. Velocity 103.00 cm/s RAP Estimate 10.00 mmHg RVSP 14.20 mmHg Left Ventricle The left ventricle is normal size. Left ventricular systolic function is normal. The left ventricular ejection fraction is within the normal range. There is increased left ventricular wall thickness. Regional wall motion is difficult to evaluate due to technically difficult study. The left ventricular diastolic function is indeterminate. No left ventricle thrombus noted on this study. LVEF is estimated at 55% Right Ventricle The right ventricle is not very well visualized, but grossly appears at least mildly dilated with mild reduction in RV function. Atria The left atrium size is normal. The right atrium is not well visualized. There is no color Doppler evidence of interatrial shunt. Aortic Valve The aortic valve leaflets are not well visualized. Mitral Valve The mitral valve is normal in structure. Trace mitral regurgitation is present. Tricuspid Valve The tricuspid valve leaflets are thin and pliable. Trace tricuspid regurgitation. There is insufficient TR jet to estimate RVSP. Pulmonic Valve The pulmonary valve is grossly normal in structure. Trace pulmonic valve regurgitation is present. Great Vessels The aortic root is normal in size. IVC is not well visualized. Pericardium There is no pericardial effusion. Other Information Study Quality: Technically Difficult Conclusion Normal LV systolic function. RV not well visualized, but grossly appears at least mildly dilated with mild reduction in RV function. Valvular evaluation limited in this limited TTE. Electronically signed by : Johanna Cary MD 10/16/2025 21:47:49
--- NOTE | 2025-10-16 15:02 | P.PN_ITS ---
Subjective *Date: 10/16/25 *Time: 16:38 Interval history: Stable on room air this morning. Had fever overnight but has no focal signs of infection. Concern may be secondary to Reglan and associated with her dystonic reaction yesterday. Has no cough or shortness of breath. Denies dysuria. Nausea present but somewhat better today. Eating breakfast. Alert and oriented x 4. Confusion from yesterday has resolved. Medical Exam Vital signs and Labs for Last 24 Hours: Vital Signs Temp Pulse Pulse Resp BP Pulse Ox O2 Del Method 10/16/25 12:48 Room Air 10/16/25 12:00 80 10/16/25 12:00 98.5 F 84 16 142/85 H 97 Room Air 10/16/25 11:00 Room Air 10/16/25 10:00 63 18 125/61 95 Room Air 10/16/25 09:00 Room Air 10/16/25 09:00 Room Air 10/16/25 08:00 90 10/16/25 08:00 99.0 F 86 14 139/78 90 L Room Air 10/16/25 06:43 Room Air 10/16/25 06:00 65 23 150/92 H 97 Room Air 10/16/25 05:05 Room Air 10/16/25 04:00 70 10/16/25 04:00 99.8 F H 69 18 165/99 H 95 Room Air 10/16/25 03:00 Room Air 10/16/25 02:16 95 Room Air 10/16/25 02:00 99.3 F 68 24 120/65 96 Room Air 10/16/25 01:00 Room Air 10/16/25 00:00 110 H 10/16/25 00:00 102.0 F H 111 H 12 145/78 H 95 Room Air 10/15/25 23:00 Room Air 10/15/25 22:00 108 H 16 180/101 H 95 Room Air 10/15/25 21:00 Room Air 10/15/25 20:00 100 H 10/15/25 20:00 99.0 F 101 H 22 163/80 H 95 Room Air 10/15/25 20:00 94 L Room Air 10/15/25 18:54 Room Air 10/15/25 18:00 103 H 18 181/91 H 94 L Room Air 10/15/25 17:00 Room Air 10/15/25 16:00 100 H 10/15/25 16:00 98.9 F 104 H 20 169/82 H 97 Room Air O2 Flow Rate 10/16/25 12:48 10/16/25 12:00 10/16/25 12:00 10/16/25 11:00 10/16/25 10:00 10/16/25 09:00 10/16/25 09:00 10/16/25 08:00 10/16/25 08:00 10/16/25 06:43 10/16/25 06:00 10/16/25 05:05 10/16/25 04:00 10/16/25 04:00 10/16/25 03:00 95 10/16/25 02:16 10/16/25 02:00 10/16/25 01:00 10/16/25 00:00 10/16/25 00:00 10/15/25 23:00 10/15/25 22:00 10/15/25 21:00 10/15/25 20:00 10/15/25 20:00 10/15/25 20:00 10/15/25 18:54 10/15/25 18:00 10/15/25 17:00 10/15/25 16:00 10/15/25 16:00 Intake and Output 10/15/25 10/16/25 10/16/25 23:59 07:59 15:59 Intake Total 340 / 1700 200 / 760 560 / 760 Output Total 200 / 500 600 / 750 150 / 750 Balance 140 / 1200 -400 / 10 410 / 10 Intake: Intake, Oral Amount 240 / 600 460 / 460 Intake, Total IV Amount 100 / 1100 200 / 300 100 / 300 Erythromycin Lactobionate 250 100 / 100 200 / 300 100 / 300 mg In 0.9 % Sodium Chloride 100 ml @ 100 mls/hr IV ACHS [facility] Rx #:[id number] Output: Output, Urine Amount 200 / 500 600 / 750 150 / 750 Other: Number of Unmeasured Voids 1 0 0 Weight 107.6 kg Patient Weight 10/16/25 23:59 Weight 107.6 kg Laboratory Results - last 24 hr 10/15/25 16:04: POC Glucose 282 H 10/15/25 16:08: Lactate 2.4 H 10/15/25 20:12: POC Glucose 324 H* 10/16/25 00:00: POC Glucose 298 H 10/16/25 05:31: WBC 12.9 H, RBC 4.77, Hgb 13.4, Hct 39.6, MCV 83.0, MCH 28.1, MCHC 33.8, RDW 14.0, Plt Count 271, MPV 11.2 H, Neut % (Auto) 76.4, Lymph % (Auto) 17.0, [place] % (Auto) 6.1, Eos % (Auto) 0.0 L, Baso % (Auto) 0.2, Neut # (Auto) 9.8 H, Lymph # (Auto) 2.2, [place] # (Auto) 0.8, Eos # (Auto) 0.0, Baso # (Auto) 0.0, Sodium 133 L, Potassium 4.2, Chloride 101, Carbon Dioxide 20 L, Anion Gap 16.2 H, BUN 9, Creatinine 0.70, Estimated Creat Clear 151, Estimated GFR 86, Est GFR ( Amer) 104, Glucose 239 H D, Calcium 8.2 L, Magnesium 1.7, Total Bilirubin 0.5, AST 27, ALT 12 D, Alkaline Phosphatase 82, Total Protein 6.8, Albumin 3.4 L D, Globulin 3.4 H, Albumin/Globulin Ratio 1.0 L 10/16/25 06:16: POC Glucose 231 H 10/16/25 10:05: Chlamy pneumoniae PCR Not detected, Adenovirus (PCR) Not detected, B. pertussis DNA (PCR) Not detected, Coronavirus OC43 (PCR) Not de tected, Coronavirus HKU1 (PCR) Not detected, Coronavirus 229E (PCR) Not detected, SARS-CoV-2 (PCR) Not detected, Coronavirus NL63 (PCR) Not detected, Human Metapneumovir PCR Not detected, Influenza A (H1) PCR Not detected, Influ A (H1N1/09) PCR Not detected, Influenza A (H3) PCR Not detected, Influenza Type A (PCR) Not detected, Influenza Type B (PCR) Not detected, M. pneumoniae (PCR) Not detected, Parainfluenza 1 (PCR) Not detected, Parainfluenza 2 (PCR) Not detected, Parainfluenza 3 (PCR) Not detected, Parainfluenza 4 (PCR) Not detected, RSV (PCR) Not detected, Entero/Rhino (PCR) Not detected 10/16/25 11:12: POC Glucose 196 H I & O for Labs for Last 24 Hours: Intake & Output 10/13/25 10/14/25 10/15/25 10/16/25 23:59 23:59 23:59 23:59 Intake Total 1700 / 1700 760 / 760 Output Total 500 / 500 750 / 750 Balance 1200 / 1200 Weight 108.012 kg 107.6 kg Constitutional: Present no acute distress, morbidly obese, chronically ill appearing and cooperative Head: Present atraumatic Eyes: Present as per HPI ENT: Present normal exam Neck: Present normal inspection Respiratory: Present CTA bilaterally, able to speak in complete sentences and symmetric chest movement Cardiac: Present Reg Rate and Rhythm GI: Present soft and distention; Absent tenderness or guarding Rectal (female): Present deferred (female): Present deferred Extremities: Present normal inspection; Absent tenderness or edema Skin: Present dry and wounds (Stasis wounds on right hassan that are scabbed. No bleeding, drainage, or erythema) Neuro: Present Grossly Intact, alert, awake, oriented x 3 and moves all extremities Assessment and Plan *Assessment and plan (1) Pulmonary embolism: Status: Acute Qualifiers: Acute cor pulmonale presence: with acute cor pulmonale Chronicity: acute Pulmonary embolism type: other Qualified Code(s): I26.09 - Other pulmonary embolism with acute cor pulmonale Category: Medical Code(s): I26.99 - Other pulmonary embolism without acute cor pulmonale (2) Morbid obesity: Status: Chronic Category: Medical Code(s): E66.01 - Morbid (severe) obesity due to excess calories (3) Nausea & vomiting: Status: Acute Category: Medical Code(s): R11.2 - Nausea with vomiting, unspecified (4) Peripheral vascular disease: Status: Chronic Category: Medical Code(s): I73.9 - Peripheral vascular disease, unspecified (5) Anxiety and depression: Status: Chronic Category: Medical Code(s): F41.9 - Anxiety disorder, unspecified; F32.A - Depression, unspecified (6) Status post amputation of toe of right foot: Status: Acute Category: Surgical Code(s): Z89.421 - Acquired absence of other right toe(s) (7) Type 2 diabetes mellitus with vascular disease: Status: Chronic Category: Medical Code(s): E11.59 - Type 2 diabetes mellitus with other circulatory complications (8) 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: Status: Chronic Qualifiers: Encounter type: initial encounter Qualified Code(s): S88.112A - Complete traumatic amputation at level between knee and ankle, left lower leg, initial encounter Category: Medical Code(s): S88.112A - Complete traumatic amputation at level between knee and ankle, left lower leg, initial encounter (9) CKD (chronic kidney disease): Status: Chronic Qualifiers: Chronic kidney disease stage: stage 3 (moderate) Chronic kidney disease stage 3 subtype: stage 3a (GFR 45-59) Qualified Code(s): N18.31 - Chronic kidney disease, stage 3a Category: Medical Code(s): N18.9 - Chronic kidney disease, unspecified (10) Essential hypertension: Status: Chronic Category: Medical Code(s): I10 - Essential (primary) hypertension Plan 55-year-old female with multiple comorbidities who presents with chest pain. Found to have submassive PE with cor pulmonale. On room air. Elevation in troponin detected. Heart strain noted on CT. Discussed case with ER physician, request admission for medical management given her symptoms and further monitoring before deeming stable to discharge home. I decided to admit to stepdown level of care for further treatment. Continuing therapeutic Lovenox. Echo obtained, formal read pending to evaluate persistent right heart strain seen on CT. Pulmonology evaluating today. Stable on room air. Continues to require patient management. Problems addressed as follows: PE with cor pulmonale Acute myocardial injury - CT per my review showing multiple pulmonary emboli extending from right pulmonary artery into segmental branches of right upper and middle lobes. Right ventricle appears larger than left. Formal measurement of RV/LV ratio is 1.3. - Lower extremity Doppler negative for evidence of DVT in bilateral lower extremities. Echocardiogram still pending read to evaluate for right heart strain. - discontinue therapeutic Lovenox, transition to Eliquis 10 mg twice daily for 7 days, will transition to 5 mg twice daily thereafter. Pulmonology assisting with care, discussed case, will follow as outpatient for continued management of anticoagulation. Stable on room air. No indication for antibiotics at this time from their perspective per discussion. -Troponin stable but elevated at 0.04-0.05. White count elevated 16.9 on admission, improved to 12.9 with no antibiotic therapy. Concern for stress reaction due to PEs. - Currently stable on room air, goal sats greater 90%. Low threshold to initiate supplemental oxygen. #Type 2 diabetes, uncontrolled with complications Nausea and vomiting, suspected gastroparesis ? A1c consistently above 9.5. Repeat obtained today, 10.6. Glucose 515 on arrival. Resume home Lantus 60 units twice daily and high intensity sliding scale insulin. Continue Farxiga 10 mg daily. - Complains of persistent nausea and vomiting for a few months. Suspect component of gastroparesis. Continue erythromycin 250 mg ACHS. - Will continue with Zofran 4 mg IV as needed every 6-8 hours for nausea - Would benefit from referral to GI as an outpatient for further management of g astric emptying study and suspected gastroparesis #Anxiety/depression: Continue BuSpar 7.5 mg daily, Lexapro at decreased dose of 10 mg daily #CAD #PAD HTN - Eliquis 10 mg twice daily for 7 days, de-escalate to 5 mg twice daily thereafter; Continue spironolactone 25 mg daily, ranolazine 1000 mg twice daily; metoprolol tartrate 100 mg twice daily, Lasix 40 mg daily Neuropathy: Continue Lyrica 200 mg twice daily; tramadol 50 mg every 6 hours as needed for moderate to severe pain Stroke like sx dystonic reaction - Patient developed weakness in left upper extremity and had gaze deviation noted approximately an hour to an hour and a half after receiving her Reglan. Concern for stroke. Stroke protocol initiated. - CT/CTA head with no LVO or acute process per my review; spoke to stroke navigator at [facility] and [facility] Radiologist seperately, both concur there is no acute process - sx consistent with reaction to the reglan. Stop meds with risk of EPS at this time. -Neurologic exam normal this morning. Headache: Tylenol 650mg PO q4hp, will try Ubrelvy 100mg PO daily as needed for migraine component. Full code Diabetic diet Eliquis
--- NOTE | 2025-10-16 16:45 | CA_ITS ---
FINAL REPORT CLINICAL HISTORY: acute PE's, patient is a BKA left lower extremity, DM, HTN, HLD, ex smoker, CAD, morbid obesity. FINDINGS: DUPLEX VENOUS SONOGRAPHY OF THE BILATERAL LOWER EXTREMITIES Multiple transverse and longitudinal scans were performed of the femoropopliteal deep venous systems, with augmentation and compression maneuvers. FINDINGS: Normal phasic flow was noted in the visualized deep venous systems. No intraluminal increased echogenicity is noted to suggest thrombus. There is normal compression and augmentation of the venous structures. No abnormal venous collaterals are seen. IMPRESSION: No evidence of deep venous thrombosis of the bilateral lower extremities. Reviewed, Interpreted and Dictated by Fannie Go MD Transcribed by Bee Smith Authenticated and [facility]
[2025-10-16 17:42] LABS: POC Glucose,Bedside 206 gm/dL (70-110)
[2025-10-16 20:09] LABS: POC Glucose,Bedside 147 gm/dL (70-110)
[2025-10-16] MEDS: PREGABALIN 100MG CAPSULE 200 MG PO (21:00)
[2025-10-16] MEDS: PANTOPRAZOLE 40MG TABLET 40 MG PO (21:00)
[2025-10-16] MEDS: RANOLAZINE 500MG ER TABLET 1000 MG PO (21:01)
[2025-10-16] MEDS: ATORVASTATIN 40MG TABLET 40 MG PO (21:01)
[2025-10-17] VITALS: BP 138/83; PULSE 78; RESP 16; TEMP 36.8; O2SAT 93
[2025-10-17 04:00] VITALS: BP 134/59; PULSE 79; RESP 16; TEMP 36.7; O2SAT 93; BMI 38.0
[2025-10-17] MEDS: ERYTHROMYCIN LACTOBIONATE 250 MG in 0.9 % SODIUM CHLORIDE 100 ML 100 MG IV ×2 (05:47→11:02)
[2025-10-17 05:52] LABS: POC Glucose,Bedside 108 gm/dL (70-110)
[2025-10-17 06:20] LABS: Hematocrit 43.4 % (37.0-47.0); Hemoglobin 13.8 g/dL (12.2-16.2); Immature Granulocytes % 0.3 %; Mean Corpuscular HGB Conc 31.8 g/dL (31.8-35.4); Mean Corpuscular Hemoglobin 27.2 pg (27.0-31.2); Mean Corpuscular Volume 85.6 fl (81-99); Nucleated Red Blood Cells % 0 %; Platelet Count 306 K/mm3 (142-424); Red Blood Count 5.07 M/mm3 (4.20-5.40); Red Cell Distribution Width-SD 44.6 fL; White Blood Count 14.8 K/mm3 (4.8-10.8)
[2025-10-17 06:25] LABS: Chloride 106 mmol/L (98-107)
[2025-10-17 06:26] LABS: Albumin Level 3.4 g/dl (3.5-5.0); Potassium 3.5 mmoL/L (3.5-5.1); Sodium 142 mmol/L (136-145)
[2025-10-17 06:28] LABS: Alanine Aminotransferase 12 U/L (12-78); Alkaline Phosphatase 81 U/L (38-126); Anion Gap 11.5 mEq/L (5-15); Aspartate Amino Transferase 18 U/L (14-36); Bilirubin,Total 0.3 mg/dl (0.2-1.3); Blood Urea Nitrogen 11 mg/dl (7-17); Carbon Dioxide 28 mmol/L (22.0-30.0); Creatinine Clearance Estimated 131 mL/min (50-200); Creatinine,Serum 0.80 mg/dl (0.52-1.04); Estimated Glomerular Filt Rate 74 ml/min (>60); GFR (African American) 89 ML/MIN (>60)
[2025-10-17 06:29] LABS: Albumin/Globulin Ratio 1.0 (1.1-1.8); Calcium 8.5 mg/dl (8.4-10.2); Globulin 3.4 g/dL (1.3-3.2); Glucose 93 mg/dl (74-100); Magnesium 1.9 mg/dl (1.6-2.3); Total Protein,Serum 6.8 g/dl (6.3-8.2)
[2025-10-17 08:00] VITALS: BP 92/51; PULSE 81; RESP 16; TEMP 36.9; O2SAT 94
--- NOTE | 2025-10-17 09:08 | HMH.PHAAMS2 ---
- Antimicrobial Stewardship Review culture & sensitivity review Stewardship interventions: culture & sensitivity review Comments: PATIENT ON ERYTHOMYCIN FOR GASTROPARESIS
[2025-10-17] MEDS: APIXABAN 5MG TABLET 10 MG PO (09:12)
[2025-10-17] MEDS: RANOLAZINE 500MG ER TABLET 1000 MG PO (09:12)
[2025-10-17] MEDS: SPIRONOLACTONE 25MG TABLET 25 MG PO (09:13)
[2025-10-17] MEDS: BUSPIRONE HCL 5 MG TABLET 7.5 MG PO (09:13)
[2025-10-17] MEDS: ACETAMINOPHEN 325MG TAB 650 MG PO (09:14)
[2025-10-17] MEDS: ESCITALOPRAM 10MG TABLET 10 MG PO (09:14)
[2025-10-17] MEDS: DAPAGLIFLOZIN PROPANEDIOL 10 MG TABLET PO (09:14)
[2025-10-17] MEDS: PREGABALIN 100MG CAPSULE 200 MG PO (09:15)
[2025-10-17] MEDS: FUROSEMIDE 40 MG TABLET PO (09:16)
[2025-10-17] MEDS: INSULIN GLARGINE 100 UNITS/ML 3ML FLEXPEN 60 UNIT SUBCUT (09:18)
[2025-10-17 09:29] LABS: POC Glucose,Bedside 257 gm/dL (70-110)
--- NOTE | 2025-10-17 09:45 | EXP.PULM.PN ---
Subjective *Date: 10/17/25 *Time: 10:26 Interval history: No acute respiratory events overnight. Continue to remain on room air. Pulmonology Exam Inpatient Vital signs and Labs for Last 24 Hours: Temp Pulse Resp BP Pulse Ox O2 Del Method O2 Flow Rate 98.5 F 81 16 92/51 L 94 L Room Air 95 10/17/25 08:00 10/17/25 08:00 10/17/25 08:00 10/17/25 08:00 10/17/25 08:00 10/17/25 08:00 10/16/25 03:00 Laboratory Results - last 24 hr 10/16/25 10:05: Chlamy pneumoniae PCR Not detected, Adenovirus (PCR) Not detected, B. pertussis DNA (PCR) Not detected, Coronavirus OC43 (PCR) Not detected, Coronavirus HKU1 (PCR) Not detected, Coronavirus 229E (PCR) Not detected, SARS-CoV-2 (PCR) Not detected, Coronavirus NL63 (PCR) Not detected, Human Metapneumovir PCR Not detected, Influenza A (H1) PCR Not detected, Influ A (H1N1/09) PCR Not detected, Influenza A (H3) PCR Not detected, Influenza Type A (PCR) Not detected, Influenza Type B (PCR) Not detected, M. pneumoniae (PCR) Not detected, Parainfluenza 1 (PCR) Not detected, Parainfluenza 2 (PCR) Not detected, Parainfluenza 3 (PCR) Not detected, Parainfluenza 4 (PCR) Not detected, RSV (PCR) Not detected, Entero/Rhino (PCR) Not detected 10/16/25 11:12: POC Glucose 196 H 10/16/25 17:17: POC Glucose 206 H 10/16/25 19:56: POC Glucose 147 H 10/17/25 05:35: WBC 14.8 H, RBC 5.07, Hgb 13.8, Hct 43.4, MCV 85.6, MCH 27.2, MCHC 31.8, RDW 14.4, Plt Count 306, MPV 11.4 H, Neut % (Auto) 64.8, Lymph % (Auto) 25.3, [place] % (Auto) 7.3, Eos % (Auto) 1.8, Baso % (Auto) 0.5, Neut # (Auto) 9.6 H, Lymph # (Auto) 3.7, [place] # (Auto) 1.1 H, Eos # (Auto) 0.3, Baso # (Auto) 0.1, Sodium 142, Potassium 3.5, Chloride 106, Carbon Dioxide 28, Anion Gap 11.5, BUN 11, Creatinine 0.80, Estimated Creat Clear 131, Estimated GFR 74, Est GFR ( Amer) 89, Glucose 93, Calcium 8.5, Magnesium 1.9 D, Total Bilirubin 0.3, AST 18 D, ALT 12, Alkaline Phosphatase 81, Total Protein 6.8, Albumin 3.4 L, Globulin 3.4 H, Albumin/Globulin Ratio 1.0 L 10/17/25 05:44: POC Glucose 108 10/17/25 09:10: POC Glucose 257 H Temp Pulse Resp BP Pulse Ox O2 Del Method O2 Flow Rate 99.0 F 86 14 139/78 90 L Room Air 95 10/16/25 08:00 10/16/25 08:00 10/16/25 08:00 10/16/25 08:00 10/16/25 08:00 10/16/25 09:00 10/16/25 03:00 Laboratory Results - last 24 hr 10/15/25 06:53: Hemoglobin A1c 10.9 H 10/15/25 09:50: Troponin I 0.05 H 10/15/25 11:21: POC Glucose 428 H* 10/15/25 13:30: WBC 11.1 H D, RBC 5.09, Hgb 14.1, Hct 42.7, MCV 83.9, MCH 27.7, MCHC 33.0, RDW 14.0, Plt Count 304, MPV 11.4 H, Neut % (Auto) 67.8, Lymph % (Auto) 23.7, [place] % (Auto) 7.0, Eos % (Auto) 0.5, Baso % (Auto) 0.6, Neut # (Auto) 7.6, Lymph # (Auto) 2.6, [place] # (Auto) 0.8, Eos # (Auto) 0.1, Baso # (Auto) 0.1, Lactate 2.5 H, Troponin I 0.05 H 10/15/25 14:09: POC Glucose 248 H 10/15/25 16:04: POC Glucose 282 H 10/15/25 16:08: Lactate 2.4 H 10/15/25 20:12: POC Glucose 324 H* 10/16/25 00:00: POC Glucose 298 H 10/16/25 05:31: WBC 12.9 H, RBC 4.77, Hgb 13.4, Hct 39.6, MCV 83.0, MCH 28.1, MCHC 33.8, RDW 14.0, Plt Count 271, MPV 11.2 H, Neut % (Auto) 76.4, Lymph % (Auto) 17.0, [place] % (Auto) 6.1, Eos % (Auto) 0.0 L, Baso % (Auto) 0.2, Neut # (Auto) 9.8 H, Lymph # (Auto) 2.2, [place] # (Auto) 0.8, Eos # (Auto) 0.0, Baso # (Auto) 0.0, Sodium 133 L, Potassium 4.2, Chloride 101, Carbon Dioxide 20 L, Anion Gap 16.2 H, BUN 9, Creatinine 0.70, Estimated Creat Clear 151, Estimated GFR 86, Est GFR ( Amer) 104, Glucose 239 H D, Calcium 8.2 L, Magnesium 1.7, Total Bilirubin 0.5, AST 27, ALT 12 D, Alkaline Phosphatase 82, Total Protein 6.8, Albumin 3.4 L D, Globulin 3.4 H, Albumin/Globulin Ratio 1.0 L 10/16/25 06:16: POC Glucose 231 H I & O for Labs for Last 24 Hours: Intake & Output 10/14/25 10/15/25 10/16/25 10/17/25 23:59 23:59 23:59 23:59 Intake Total 1700 / 1700 960 / 1200 610 / 610 Output Total 500 / 500 1100 / 1700 750 / 750 Balance 1200 / 1200 -140 / -500 -140 / -140 Weight 238 lb 2 oz 237 lb 3.478 oz 236 lb 6.4 oz Intake & Output 10/13/25 10/14/25 10/15/25 10/16/25 23:59 23:59 23:59 23:59 Intake Total 1700 / 1700 540 / 540 Output Total 500 / 500 750 / 750 Balance 1200 / 1200 -210 / -210 Weight 238 lb 2 oz 237 lb 3.478 oz Constitutional: Present mild distress Head: Present normocephalic and atraumatic ENT: Present normal exam, normal oropharynx and mucous membranes moist Neck: Present normal inspection and full ROM Respiratory: Present normal respiratory effort and able to speak in complete sentences; Absent respiratory distress, rhonchi, wheezes or crackles Cardiac: Present S1/S2, Tachycardia and radial pulses present GI: Present soft and distention; Absent tenderness or guarding Rectal (female): Present deferred (female): Present deferred Skin: Present intact; Absent cyanosis or jaundice Neuro: Present alert, awake and oriented x 3 Extremities: Present normal inspection; Absent clubbing or cyanosis Psychiatric: Present normal affect and cooperative Assessment and Plan *Assessment and plan (1) Pulmonary embolism: Status: Acute Qualifiers: Acute cor pulmonale presence: with acute cor pulmonale Chronicity: acute Pulmonary embolism type: other Qualified Code(s): I26.09 - Other pulmonary embolism with acute cor pulmonale Category: Medical Code(s): I26.99 - Other pulmonary embolism without acute cor pulmonale Plan Ms. Colon is a 55-year-old male presented to the ER with worsening chest pain found to be having pulmonary embolism and pulmonary was called for further evaluation and management. She denies any personal history or family history of blood clots. Relatively sedentary lifestyle. History of left BKA, right second toe osteomyelitis status post amputation. Febrile at 102. Neutrophilic predominant leukocytosis improving.Blood gas upon admission did not show any evidence of hypoxic/hypercarbic respiratory failure. Seen PE upon admission nonocclusive pulmonary emboli in the right main pulmonary artery extending into the upper and lower lobe segmental branches. No dense consolidative/airspace changes. LE doppler, No DVT. Troponins elevated at 0.05 upon admission. PE likely unprovoked given her sedentary lifestyle, need indefinite anticoagulation at this point of time No respiratory distress on room air saturating 95% and above. Initial update: No acute respiratory vents overnight. Echocardiogram Suboptimal RV not well visualized however reported to have AT LEAST mildly dilated RV with reduced RV function, Follow with cardiology to determine repeat echocardiogram to better visualize and determine RV function. Blood pressure low with systolics in 90s this morning, follow with repeat vitals. Plan: Continue Eliquis, likely need indefinite anticoagulation given provoked PE with nonmodifiable risk given sedentary lifestyle Oxygen supplementation on as-needed basis to maintain O2 saturation goal of 90% and above No need for antibiotics from pulmonary standpoint. # Thank you for involving pulmonary in this patient care. Will follow the patient in pulmonary clinic 1 to 2 weeks postdischarge.
--- NOTE | 2025-10-17 09:46 | XR_ITS ---
FINAL REPORT TECHNIQUE: Single view chest CLINICAL HISTORY: PNM COMPARISON: 10/15/2025 FINDINGS: A single view of the chest was obtained. The heart and mediastinum are within normal limits. The lungs are clear. There is no pneumothorax. IMPRESSION: No acute cardiopulmonary process. Reviewed, Interpreted and Dictated by Fannie Go MD Transcribed by Radha Kunz Authenticated and . [facility]
--- NOTE | 2025-10-17 10:29 | EXP.DC.SUM ---
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 States that around 3 AM she woke with substernal pain shooting to her back. Has had similar episodes previously. On arrival to the ER, she was able to speak in complete sentences. Found to be tachycardic and hypertensive. CT of her chest was obtained showing numerous subsegmental PEs on the right side with heart strain and RV to LV ratio of 1.3. Patient initiated on therapeutic Lovenox. Other remarkable labs include glucose of 515, sodium of 126, kidney function with BUN 12, creatinine 0.8. Mild anion gap of 17.7 but pH normal on VBG. White count elevated at 16.9. No focal sign of infection. Given her symptoms and presentation, medicine consulted for admission and further management of her PEs with cor pulmonale along with metabolic disturbances. On arrival to the floor, patient is complaining of some nausea. Says she has been nauseous with emesis intermittently for the past 3 to 4 months. Reports mixed compliance with her insulin and missing doses of her basal on average 3 times a week and missing mealtime doses about the same. Appears to have lost some weight since last visit with her BMI less than 40. Is satting in the low 90s on room air. Denies previous history of blood clots. Alert and oriented at baseline mentation. Appears to have flat affect. Hospital Course Hospital Course Hospital Course: Bee Colon is a 55-year-old female with multiple comorbidities who presents with chest pain. Found to have submassive PE with cor pulmonale on CTA. On room air. Elevation in troponin detected. Heart strain noted on CTA. Discussed case with ER physician, request admission for medical management given her symptoms and further monitoring before deeming stable to discharge home. #Right lung pulmonary emboli #NSTEMI type II #Obesity ? Patient presented with chest pain, found to have right lung submassive pulmonary emboli on CTA chest. Initially tachycardic, otherwise was stable. ? CTA chest on admission did show RV strain with RV/LV ratio of 1.3. Troponins plateaued at 0.05. EKG without acute ischemic changes. ? Follow-up ECHO did not show significant RV strain, showed mild RV function reduction. Consider repeat ECHO with cardiology outpatient. ? Lower extremity venous Dopplers negative for DVT. ? No focal risk factors other than obesity BMI 38. Given provoked DVT and likely nonmodifiable risk factor as patient is bedbound, discussed with pulmonology who recommended indefinite anticoagulation. ? Treated with therapeutic Lovenox, transitioned to Eliquis. ? Through hospital course, patient symptoms improved. No chest pain, shortness of breath and on room air on day of discharge. ? Discharged with Eliquis 10 mg twice daily for 6 more days, then 5 mg twice daily after that. ? Will follow-up with pulmonology and cardiology within 2 weeks. #Type 2 diabetes, uncontrolled with complications #Suspected gastroparesis ? A1c consistently above 9.5. Repeat obtained today, 10.6 percent on admission. Glucose 515 on arrival. Resume home Lantus 60 units twice daily, Farxiga 10 mg daily. - Complains of persistent nausea and vomiting for a few months. Suspect component of gastroparesis. Started erythromycin 250 mg ACHS with improvement in symptoms. - Discharged with erythromycin to 50 mg ACHS, will follow-up with GI and endocrinology for further evaluation and management. #Anxiety/depression: Continue home BuSpar, Lexapro. #CAD #PAD #HTN ? Severe CAD noted on CTA chest, Myoview earlier this year did not show reversible ischemia. - Continue home Lasix 40 mg daily, ranolazine 1000 mg twice daily, aspirin 81 mg, atorvastatin 40 mg. Discontinue Xarelto as Eliquis started above. ? Held metoprolol tartrate 100 mg twice daily as blood pressures soft but normal today. Will follow-up with cardiology for further guidance. Neuropathy: Continue Lyrica 200 mg twice daily; tramadol 50 mg every 6 hours as needed for moderate to severe pain Stroke like sx dystonic reaction - Patient developed weakness in left upper extremity and had gaze deviation noted approximately an hour to an hour and a half after receiving her Reglan. Concern for stroke. Stroke protocol initiated. - CT/CTA head with no LVO or acute process per my review; spoke to stroke navigator at [facility] and [facility] Radiologist seperately, both concur there is no acute process - sx consistent with reaction to the reglan. Stop meds with risk of EPS at this time. - Neurologic exam normal this morning. Total time spent on discharge: 31 minutes on chart review, counseling, documentation, and direct care with patient. Exam Data for Last 24 hours Vital signs and Labs for Last 24 Hours: Temp Pulse Resp BP Pulse Ox O2 Del Method O2 Flow Rate 98.5 F 81 16 92/51 L 94 L Room Air 95 10/17/25 08:00 10/17/25 08:00 10/17/25 08:00 10/17/25 08:00 10/17/25 08:00 10/17/25 08:00 10/16/25 03:00 Laboratory Results - last 24 hr 10/16/25 10:05: Chlamy pneumoniae PCR Not detected, Adenovirus (PCR) Not detected, B. pertussis DNA (PCR) Not detected, Coronavirus OC43 (PCR) Not detected, Coronavirus HKU1 (PCR) Not detected, Coronavirus 229E (PCR) Not detected, SARS-CoV-2 (PCR) Not detected, Coronavirus NL63 (PCR) Not detected, Human Metapneumovir PCR Not detected, Influenza A (H1) PCR Not detected, Influ A (H1N1/09) PCR Not detected, Influenza A (H3) PCR Not detected, Influenza Type A (PCR) Not detected, Influenza Type B (PCR) Not detected, M. pneumoniae (PCR) Not detected, Parainfluenza 1 (PCR) Not detected, Parainfluenza 2 (PCR) Not detected, Parainfluenza 3 (PCR) Not detected, Parainfluenza 4 (PCR) Not detected, RSV (PCR) Not detected, Entero/Rhino (PCR) Not detected 10/16/25 11:12: POC Glucose 196 H 10/16/25 17:17: POC Glucose 206 H 10/16/25 19:56: POC Glucose 147 H 10/17/25 05:35: WBC 14.8 H, RBC 5.07, Hgb 13.8, Hct 43.4, MCV 85.6, MCH 27.2, MCHC 31.8, RDW 14.4, Plt Count 306, MPV 11.4 H, Neut % (Auto) 64.8, Lymph % (Auto) 25.3, Young % (Auto) 7.3, Eos % (Auto) 1.8, Baso % (Auto) 0.5, Neut # (Auto) 9.6 H, Lymph # (Auto) 3.7, Young # (Auto) 1.1 H, Eos # (Auto) 0.3, Baso # (Auto) 0.1, Sodium 142, Potassium 3.5, Chloride 106, Carbon Dioxide 28, Anion Gap 11.5, BUN 11, Creatinine 0.80, Estimated Creat Clear 131, Estimated GFR 74, Est GFR ( Amer) 89, Glucose 93, Calcium 8.5, Magnesium 1.9 D, Total Bilirubin 0.3, AST 18 D, ALT 12, Alkaline Phosphatase 81, Total Protein 6.8, Albumin 3.4 L, Globulin 3.4 H, Albumin/Globulin Ratio 1.0 L 10/17/25 05:44: POC Glucose 108 10/17/25 09:10: POC Glucose 257 H I & O for Last 24 hours: Intake & Output 10/14/25 10/15/25 10/16/25 10/17/25 23:59 23:59 23:59 23:59 Intake Total 1700 / 1700 960 / 1200 610 / 610 Output Total 500 / 500 1100 / 1700 750 / 750 Balance 1200 / 1200 -140 / -500 -140 / -140 Weight 108.012 kg 107.6 kg 107.229 kg Constitutional Constitutional: no acute distress and cooperative *Routine HEENT Exam Head: Present normocephalic Eye: Present EOMI and PERRL ENT: Present mucous membranes moist *Routine Neck Exam Neck: Present supple and full ROM *Routine Respiratory Exam Respiratory: Present CTA bilaterally, able to speak in complete sentences and symmetric chest movement *Routine Cardiovascular Exam Cardiovascular: Present RRR *Routine Abdominal Exam Abdominal: Present soft and normoactive bowel sounds; Absent tenderness or distended *Routine Extremities Exam Extremities: Present normal capillary refill and amputation; Absent calf tenderness Comments: Left BKA *Routine Skin Exam Skin: Present intact and dry Comments: Healed right leg stasis wound, second toe amputation with sutures. *Routine Neurological Exam Neurological: Present alert, oriented X3, normal reflexes and moving all extremities Results Data Completed and Pending Labs on day of discharge: Labs from last 24 hours 10/17/25 10/17/25 10/17/25 09:10 05:44 05:35 WBC 14.8 H RBC 5.07 Hgb 13.8 Hct 43.4 MCV 85.6 MCH 27.2 MCHC 31.8 RDW 14.4 Plt Count 306 MPV 11.4 H Neut % (Auto) 64.8 Lymph % (Auto) 25.3 Young % (Auto) 7.3 Eos % (Auto) 1.8 Baso % (Auto) 0.5 Neut # (Auto) 9.6 H Lymph # (Auto) 3.7 Young # (Auto) 1.1 H Eos # (Auto) 0.3 Baso # (Auto) 0.1 Sodium 142 Potassium 3.5 Chloride 106 Carbon Dioxide 28 Anion Gap 11.5 BUN 11 Creatinine 0.80 Estimated Creat Clear 131 Estimated GFR 74 Est GFR ( Amer) 89 Glucose 93 POC Glucose 257 H 108 Calcium 8.5 Magnesium 1.9 D Total Bilirubin 0.3 AST 18 D ALT 12 Alkaline Phosphatase 81 Total Protein 6.8 Albumin 3.4 L Globulin 3.4 H Albumin/Globulin Ratio 1.0 L Chlamy pneumoniae PCR Adenovirus (PCR) B. pertussis DNA (PCR) Coronavirus OC43 (PCR) Coronavirus HKU1 (PCR) Coronavirus 229E (PCR) SARS-CoV-2 (PCR) Coronavirus NL63 (PCR) Human Metapneumovir PCR Influenza A (H1) PCR Influ A (H1N1/09) PCR Influenza A (H3) PCR Influenza Type A (PCR) Influenza Type B (PCR) M. pneumoniae (PCR) Parainfluenza 1 (PCR) Parainfluenza 2 (PCR) Parainfluenza 3 (PCR) Parainfluenza 4 (PCR) RSV (PCR) Entero/Rhino (PCR) 10/16/25 10/16/25 10/16/25 19:56 17:17 11:12 WBC RBC Hgb Hct MCV MCH MCHC RDW Plt Count MPV Neut % (Auto) Lymph % (Auto) Young % (Auto) Eos % (Auto) Baso % (Auto) Neut # (Auto) Lymph # (Auto) Young # (Auto) Eos # (Auto) Baso # (Auto) Sodium Potassium Chloride Carbon Dioxide Anion Gap BUN Creatinine Estimated Creat Clear Estimated GFR Est GFR ( Amer) Glucose POC Glucose 147 H 206 H 196 H Calcium Magnesium Total Bilirubin AST ALT Alkaline Phosphatase Total Protein Albumin Globulin Albumin/Globulin Ratio Chlamy pneumoniae PCR Adenovirus (PCR) B. pertussis DNA (PCR) Coronavirus OC43 (PCR) Coronavirus HKU1 (PCR) Coronavirus 229E (PCR) SARS-CoV-2 (PCR) Coronavirus NL63 (PCR) Human Metapneumovir PCR Influenza A (H1) PCR Influ A (H1N1/) PCR Influenza A (H3) PCR Influenza Type A (PCR) Influenza Type B (PCR) M. pneumoniae (PCR) Parainfluenza 1 (PCR) Parainfluenza 2 (PCR) Parainfluenza 3 (PCR) Parainfluenza 4 (PCR) RSV (PCR) Entero/Rhino (PCR) 10/16/25 10:05 WBC RBC Hgb Hct MCV MCH MCHC RDW Plt Count MPV Neut % (Auto) Lymph % (Auto) Young % (Auto) Eos % (Auto) Baso % (Auto) Neut # (Auto) Lymph # (Auto) Young # (Auto) Eos # (Auto) Baso # (Auto) Sodium Potassium Chloride Carbon Dioxide Anion Gap BUN Creatinine Estimated Creat Clear Estimated GFR Est GFR ( Amer) Glucose POC Glucose Calcium Magnesium Total Bilirubin AST ALT Alkaline Phosphatase Total Protein Albumin Globulin Albumin/Globulin Ratio Chlamy pneumoniae PCR Not detected Adenovirus (PCR) Not detected B. pertussis DNA (PCR) Not detected Coronavirus OC43 (PCR) Not detected Coronavirus HKU1 (PCR) Not detected Coronavirus 229E (PCR) Not detected SARS-CoV-2 (PCR) Not detected Coronavirus NL63 (PCR) Not detected Human Metapneumovir PCR Not detected Influenza A (H1) PCR Not detected Influ A (H1N1/) PCR Not detected Influenza A (H3) PCR Not detected Influenza Type A (PCR) Not detected Influenza Type B (PCR) Not detected M. pneumoniae (PCR) Not detected Parainfluenza 1 (PCR) Not detected Parainfluenza 2 (PCR) Not detected Parainfluenza 3 (PCR) Not detected Parainfluenza 4 (PCR) Not detected RSV (PCR) Not detected Entero/Rhino (PCR) Not detected DS: Diagnosis Discharge Diagnosis (1) Pulmonary embolism: Status: Acute Code(s): I26.99 - Other pulmonary embolism without acute cor pulmonale Qualifiers: Acute cor pulmonale presence: with acute cor pulmonale Chronicity: acute Pulmonary embolism type: other Qualified Code(s): I26.09 - Other pulmonary embolism with acute cor pulmonale Meds Home Medications and Allergies Home Medications ?Medication ?Instructions ?Recorded ?Confirmed ?Type insulin syringe-needle U-100 0.5 #500 ea 01/31/25 06/01/25 Rx mL 31 gauge x 03/31 (Sure Comfort Insulin Syringe) aspirin 81 mg chewable tablet 81 mg PO DAILY [facility] #90 06/01/25 10/15/25 Rx tabs atorvastatin 40 mg tablet 40 mg PO HS #90 tabs 06/01/25 10/15/25 Rx buspirone 7.5 mg tablet 7.5 mg PO BID #180 tabs 06/01/25 10/15/25 Rx dapagliflozin propanediol 10 mg 10 mg PO DAILY #90 tabs 06/01/25 10/15/25 Rx tablet ezetimibe 10 mg tablet 10 mg PO HS #90 tabs 06/01/25 10/16/25 Rx furosemide 40 mg tablet (Lasix) 40 mg PO DAILY #90 tabs 06/01/25 10/15/25 Rx insulin glargine 100 unit/mL (3 60 unit (0.6 mL) SQ BID #12 mL 06/01/25 10/16/25 Rx mL) subcutaneous pen metoprolol tartrate 100 mg tablet 100 mg PO BID #180 tabs 06/01/25 10/16/25 Rx Held on 10/17/25. Instructions: Resume on 10/31/25. Your blood pressure is well-controlled without this medication. Please follow-up with your PCP/white spooler for discussion about restarting this medication if needed. pen needle, diabetic 31 gauge x #1,200 ea 06/01/25 06/01/25 Rx 03/31 (Unifine Pentips) ranolazine 1,000 mg 1,000 mg PO BID #180 tabs 06/01/25 10/16/25 Rx tablet,extended release,12 hr magnesium oxide 400 mg (241.3 mg 400 mg PO DAILY 08/02/25 10/15/25 History magnesium) tablet blood-glucose sensor (MediaTrust G7 #3 ea 09/05/25 Rx Sensor device) escitalopram oxalate 20 mg tablet 20 mg PO DAILY #90 tabs 09/05/25 10/15/25 Rx tramadol 50 mg tablet 50 mg PO Q6H PRN breakthrough 09/05/25 10/15/25 Rx pain, moderate #120 tabs polyethylene glycol 3350 17 17 g PO DAILY PRN Constipation 10/15/25 10/15/25 History gram/dose oral powder (Miralax) insulin aspart U-100 100 unit/mL 20 unit SQ TID 10/16/25 10/16/25 History (3 mL) subcutaneous pen (Novolog FlexPen U-100 Insulin aspart) pregabalin 200 mg capsule 200 mg PO BID 10/16/25 10/16/25 History apixaban 5 mg (74 tabs) tablets in 5 mg PO BID #74 tabs 10/17/25 Rx a dose pack (Eliquis DVT-PE Treat 30D Start) erythromycin 250 mg tablet 250 mg PO ACHS 30 days #120 tabs 10/17/25 Rx pantoprazole 40 mg tablet,delayed 40 mg PO DAILY 30 days #30 tabs 10/17/25 Rx release New Prescriptions to Start Prescriptions: apixaban [Eliquis DVT-PE Treat 30D Start] Angel Barry erythromycin Angel Barry pantoprazole Angel Barry Allergies Allergy/AdvReac Type Severity Reaction Status Date / Time clopidogrel (From Plavix) Allergy Severe Hives Verified 10/15/25 11:24 amoxicillin (AMOXICILLIN) Allergy Unknown Unknown Verified 10/15/25 11:24 allergy reaction metoclopramide (From Reglan) AdvReac Intermediate dystonic Verified 10/15/25 14:55 reaction codeine (CODEINE) AdvReac Mild STOMACH Verified 10/15/25 11:24 CRAMPS morphine (MORPHINE) AdvReac Mild STOMACH Verified 10/15/25 11:24 CRAMPS oxycodone (From Percocet) AdvReac Mild STOMACH Verified 10/15/25 11:24 CRAMPS Discharge Plan Disposition Patient Disposition: Home, Self-Care Condition: Fair Follow up Plan Follow up with: Diego Lynch MD [Primary Care Provider, Medical] - 10/24/25 2:15 pm Rocael Barrera PA [Physician Therapeutic Riding Instructor, Cardiology] - 10/31/25 2:00 pm Referral Note: Pulmonary embolism with RV dilatation. Brooklynn Melo APRN [Nurse Practitioner, Gastroenterology] - 10/31/25 12:00 pm Referral Note: Suspected gastroparesis improved with erythromycin. Suzanne Maxwell MD [Physician, Pulmonology] - 11/07/25 1:00 pm Tanya Pool MD [Staff Physician, Endocrinology] - 10/26/25 2:15 pm Prescriptions/Medication Reconciliation: New pantoprazole 40 mg Tablet,Delayed Release (Dr/Ec) 40 mg PO DAILY 30 Days Qty: 30 0RF Eliquis DVT-PE Treat 30D Start 5 mg (74 tabs) tablets,dose pack 5 mg PO BID Qty: 74 0RF Rx Instructions: Take 10 mg twice daily for 6 more days, then take 5 mg twice daily after that. erythromycin 250 mg tablet 250 mg PO ACHS 30 Days Qty: 120 0RF Continued atorvastatin 40 mg tablet 40 mg PO HS Qty: 90 1RF ezetimibe 10 mg tablet 10 mg PO HS Qty: 90 1RF dapagliflozin propanediol 10 mg tablet 10 mg PO DAILY Qty: 90 1RF furosemide [Lasix] 40 mg tablet 40 mg PO DAILY Qty: 90 1RF (DME) pen needle, diabetic [Unifine Pentips] 31 gauge x 5/16 needle See Rx Instructions .ROUTE .MEDSUPPLY Qty: 1200 1RF Rx Instructions: As directed ranolazine 1,000 mg tablet extended release 12 hr 1,000 mg PO BID Qty: 180 1RF insulin glargine 100 unit/mL (3 mL) insulin pen 60 unit SQ BID Qty: 12 5RF buspirone 7.5 mg tablet 7.5 mg PO BID Qty: 180 1RF Rx Instructions: Take with meals aspirin 81 mg tablet,chewable 81 mg PO DAILY Qty: 90 1RF magnesium oxide 400 mg (241.3 mg magnesium) tablet 400 mg PO DAILY Patient Comments: TAKE 1 TABLET BY MOUTH ONCE DAILY FOR 30 DAYS (DME) insulin syringe-needle U-100 [Sure Comfort Insulin Syringe] 0.5 mL 31 gauge x 5/16 syringe See Rx Instructions .ROUTE .MEDSUPPLY Qty: 500 1RF Rx Instructions: As directed escitalopram oxalate 20 mg tablet 20 mg PO DAILY Qty: 90 2RF (DME) Dexcom G7 Sensor Device See Rx Instructions .Route Qty: 3 5RF Rx Instructions: As directed tramadol 50 mg tablet 50 mg PO Q6H PRN (Reason: breakthrough pain, moderate) Qty: 120 0RF polyethylene glycol 3350 [Miralax] 17 gram/dose powder 17 g PO DAILY PRN (Reason: Constipation) insulin aspart U-100 [Novolog FlexPen U-100 Insulin] 100 unit/mL (3 mL) insulin pen 20 unit SQ TID pregabalin 200 mg capsule 200 mg PO BID Held metoprolol tartrate 100 mg tablet 100 mg PO BID Qty: 180 1RF Hold Instructions: Resume on 10/31/25. Your blood pressure is well-controlled without this medication. Please follow-up with your PCP/white spooler for discussion about restarting this medication if needed. Discontinued Xarelto 2.5 mg tablet 2.5 mg PO BIDWMEAL Qty: 180 1RF Problem Reconciliation Problems Reviewed?: Yes Patient Discharge Instructions Patient Instructions: DI for Pulmonary Embolism Print Language: [place] Providers Primary Care Provider: Diego Lynch Admit Provider: Levi Soria Attending Provider: Levi Soria
[2025-10-17] MEDS: humaLOG 100 UNITS/ML 10ML VIAL (SSI) SUBCUT ×2 (11:55→15:53)
[2025-10-17 12:00] VITALS: BP 104/59; PULSE 84; RESP 16; TEMP 36.8; O2SAT 94
[2025-10-17 16:00] VITALS: BP 141/72; PULSE 80; RESP 14; TEMP 36.4; O2SAT 96
[2025-10-17 19:29] LABS: POC Glucose,Bedside 213 gm/dL (70-110)
[2025-10-17 19:29] LABS: POC Glucose,Bedside 279 gm/dL (70-110)
--- NOTE | 2025-10-18 10:08 | SW/DCPLANNER ---
Spoke with patient on the phone. Patient stated that she is doing well. Patient stated that she is aware of her upcoming appointments. Patient stated that she was able to get her new medicine and that [facility] pharmacy was able to bring it to the room. Patient stated that she has no concerns or questions at this time. Patient stated that she lost her debit card while she was here and i called over and spoke with the steward/stewardess [employer] dining car and they have been looking for the debit card since yesterday with no luck of finding it. Naif LAMBERT Brush Holder Assembler
== END 2025-10-17 18:47 | disposition home or self-care (01) ==
LOC: ER 07:44 → 2ND 10:30
PROVIDERS: Admitting Provider Internal Medicine Adolescent Medicine; Emergency Provider Student in an Organized Health Care Education/Training Program; PCP Internal Medicine; Visit Provider Internal Medicine Adolescent Medicine
DX: I26.09 Other pulmonary embolism with acute cor pulmonale (principal); E66.01 Morbid (severe) obesity due to excess calories; R11.2 Nausea with vomiting, unspecified; F41.9 Anxiety disorder, unspecified; F32.A Depression, unspecified; Z89.421 Acquired absence of other right toe(s); E11.59 Type 2 diabetes mellitus with other circulatory complications; S88.112A Complete traumatic amputation at level between knee and ankle, left lower leg, initial encounter; N18.31 Chronic kidney disease, stage 3a; I12.9 Hypertensive chronic kidney disease with stage 1 through stage 4 chronic kidney disease, or unspecified chronic kidney disease; E11.51 Type 2 diabetes mellitus with diabetic peripheral angiopathy without gangrene; E11.10 Type 2 diabetes mellitus with ketoacidosis without coma; E78.5 Hyperlipidemia, unspecified; G43.909 Migraine, unspecified, not intractable, without status migrainosus; Z68.38 Body mass index [BMI] 38.0-38.9, adult; M19.90 Unspecified osteoarthritis, unspecified site; E11.40 Type 2 diabetes mellitus with diabetic neuropathy, unspecified; Z90.49 Acquired absence of other specified parts of digestive tract; Z90.710 Acquired absence of both cervix and uterus; Z89.511 Acquired absence of right leg below knee; Z82.49 Family history of ischemic heart disease and other diseases of the circulatory system; Z88.5 Allergy status to narcotic agent; Z88.1 Allergy status to other antibiotic agents; Z88.9 Allergy status to unspecified drugs, medicaments and biological substances; Z79.4 Long term (current) use of insulin; Z79.84 Long term (current) use of oral hypoglycemic drugs; Z79.899 Other long term (current) drug therapy; Z79.82 Long term (current) use of aspirin; R41.82 Altered mental status, unspecified; I65.21 Occlusion and stenosis of right carotid artery; I65.22 Occlusion and stenosis of left carotid artery; I65.03 Occlusion and stenosis of bilateral vertebral arteries
CPT/HCPCS: 0223U; 36415; 70450; 70496; 70498; 71045; 71275; 80053; 82803; 82962; 83036; 83605; 83735; 84484; 85025; 85378; 85610; 85730; 93005; 93306; 93308; 93970; 97110; 97163; 97166; 97530; 99285; G0378; J1200; J1364; J1650; J2270; J2405; J2765; J3360; J7120; Q9957; Q9967